=== PATIENT | male | born 1955 | race Two or more races ===

== ENCOUNTER → 2020-03-27 11:22 | Outpatient (BNVA) | payer MEDICARE, MEDICAID, SELFPAY | PROVIDERS: PCP Internal Medicine; Referring Provider Internal Medicine; Visit Provider Nurse Practitioner | DX: Z76.89 Persons encountering health services in other specified circumstances (principal) | CPT/HCPCS: 99214 ==

== ENCOUNTER 2020-04-11 09:34 | Outpatient (REF) | payer MEDICARE, MEDICAID, SELFPAY ==
--- NOTE | 2020-04-11 09:46 | US_ITS ---
EXAMINATION: US ABDOMEN LIMITED CLINICAL INFORMATION: GERD. Abdominal distention. COMPARISON: CT abdomen and pelvis dated 06/19/2012 TECHNIQUE: Real-time imaging of the right upper quadrant abdominal viscera. FINDINGS: PANCREAS: Portions of the pancreatic body that are visualized appear normal in size and echogenicity. There is no pancreatic ductal distention. The pancreas is otherwise obscured by bowel gas. LIVER: The liver is normal in size and smooth in contour. Portions of the left lobe are obscured by bowel gas and not completely imaged. The visualized liver parenchyma shows mild coarsening. There is no focal hepatic parenchymal lesion. No intrahepatic biliary ductal dilatation. GALLBLADDER: The gallbladder is physiologically distended. There is no gallbladder dilatation or wall thickening or pericholecystic inflammatory changes. There is a 4 mm polyp projecting into the lumen mid gallbladder. There is no stone or sludge. Sonographic negative Corona's sign. COMMON BILE DUCT: Normal in caliber measuring 0.4 cm in diameter. RIGHT KIDNEY: No hydronephrosis or renal calculi. The kidney measures 10.0 cm in maximum dimension. There is a simple cyst interpolar region measuring 1.3 x 1.2 cm. There is a smaller cyst lower pole under 1 cm with adjacent comet tail ring down artifact likely related to arcuate vessel. No obstructing calculi demonstrated. FREE FLUID: None. IMPRESSION: 1. Small gallbladder polyp 4 mm. No stone, gallbladder wall thickening, or ductal dilatation. 2. Bowel gas obscures visualization left hepatic lobe and portions of gallbladder. 3. No right hydronephrosis. No ascites.
== END 2020-04-11 09:35 | disposition home or self-care (01) ==
LOC: HO.US 09:34
PROVIDERS: Visit Provider Nurse Practitioner
DX: R14.0 Abdominal distension (gaseous) (principal); K21.9 Gastro-esophageal reflux disease without esophagitis
CPT/HCPCS: 76705

== ENCOUNTER 2020-04-26 13:19 | Outpatient (REF) | payer MEDICARE, MEDICAID, SELFPAY ==
--- NOTE | 2020-04-28 09:06 | MHC.AU.P13 ---
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 He reports that it is bothersome, and he has not found anything that makes it better. He hears the noise centrally, and does not feel it's coming from a particular ear. Ear History: Recent Ear Infections: None Reported History of Ear Wax Buildup: Both Ears Previous Ear Surgery: None Reported Bothersome Tinnitus/Ringing/Noises in Ears: Both Ears Ear used on the phone: Right Ear Blocked/Full Sensation in Ear(s): None Reported History: History: No Medical History: Medical History: Hyperlipidemia, Non-ischemic cardiomyopathy, glaucoma, COPD, GERD Otoscopy: Right Ear: Unremarkable Left Ear: Unremarkable Tympanometry: Right Ear: Normal Middle Ear System (Type A) Left Ear: Normal Middle Ear System (Type A) Hearing Evaluation: Transducer(s) Used: Insert Earphones Method: Conventional Audiometry Stimuli Used: Pure Tones Right Ear: Description of Hearing: Normal 250-1000 Hz, sloping to moderate sensorineural hearing loss Left Ear: Description of Hearing: Normal 250-1000 Hz, sloping to moderate sensorineural hearing loss Speech Recognition Threshold (SRT): Method Used: Recorded Lists Right Ear: 25 dBHL Left Ear: 30 dBHL Word Discrimination: Method: Recorded Lists Word Lists Used: Lista Bisil?bica (Emirati) Right Ear: 100% at 65 dBHL Left Ear: 96% at 70 dBHL Recommendations: Audiological re-evaluation in one year. Patient is highly bothered by his tinnitus. A trial with amplification is recommended to address the high frequency hearing loss and the tinnitus. See hearing aid evaluation report for more details. Patient may also benefit from other methods of tinnitus relief, such as use of masking noises and cognitive behavior therapy. Patient is scheduled to see Dr. Abril hanson to address the tinnitus from a medical perspective as well. Diagnosis: Primary Diagnosis: H90.3 Bilateral Sensorineural Hearing Loss Secondary Diagnosis: H93.13 Tinnitus, Bilateral Services Performed: Services Performed: Comprehensive Audiological Evaluation (CPT 85124) Tympanometry (CPT 42223) Signature: Provider: Divya Adams, SADE-A
--- NOTE | 2020-04-28 09:13 | MHC.AU.MED ---
Medical Clearance for Hearing Instrumentation Date: 04/28/20 Patient Name: Avery Bosch Date of : 1955 Dear Rigoberto Madrigal MD, We have seen your patient on 04/26/20 and have determined that they are a candidate for amplification (See accompanying report). Specifically, they would benefit from: Hearing aid use in both ears There is a statute that addresses Medical Evaluation Requirements prior to fitting a patient with a hearing aid. According to [place] statute 265 CMR:6.03(1), (a) General. Except as provided in 265 CMR 6.03(1)(b), a hearing aid assistant shall not sell a hearing aid unless the prospective user has presented to the hearing aid assistant a written statement signed by a licensed physician that states that the patient's hearing loss has been medically evaluated and the patient may be considered a candidate for a hearing aid. The medical evaluation must have taken place within the preceding six months. Please note: Due to the [place] Statute referenced above, we cannot accept a signature other than that of a licensed physician. RIVERBOAT CAPTAIN and PA signatures cannot be accepted. I am in agreement with the above recommendation. There is no medical contraindication for hearing instrumentation. Physician Signature Date Physician Name (Printed)
== END 2020-04-26 13:20 | disposition home or self-care (01) ==
LOC: HO.SH 13:19
PROVIDERS: PCP Internal Medicine; Visit Provider Internal Medicine
DX: H90.3 Sensorineural hearing loss, bilateral (principal); H93.13 Tinnitus, bilateral
CPT/HCPCS: 92557; 92567; 92591

== ENCOUNTER → 2020-04-27 11:58 | Outpatient (BNVA) | payer MEDICARE, MEDICAID, SELFPAY | PROVIDERS: PCP Internal Medicine; Referring Provider Internal Medicine; Visit Provider Nurse Practitioner | DX: K22.10 Ulcer of esophagus without bleeding (principal); K21.9 Gastro-esophageal reflux disease without esophagitis; K59.00 Constipation, unspecified; K62.3 Rectal prolapse | CPT/HCPCS: 99212 ==

== ENCOUNTER → 2020-05-02 09:21 | Outpatient (BNVA) | payer MEDICARE, MEDICAID, SELFPAY | PROVIDERS: PCP Internal Medicine; Referring Provider Internal Medicine; Visit Provider Internal Medicine | DX: J44.9 Chronic obstructive pulmonary disease, unspecified (principal); F17.200 Nicotine dependence, unspecified, uncomplicated | CPT/HCPCS: 99212 ==

== ENCOUNTER 2020-05-17 08:32 | Outpatient (REF) | payer MEDICARE, MEDICAID, SELFPAY ==
--- NOTE | 2020-05-22 11:35 | MHC.AU.P13 ---
Hearing Instrument Fitting- Adult- Binaural Date of Visit: 05/17/20 Glass Worker Used: Persian- In Person Hearing Instruments Dispensed: Right Ear: Senior Developer: Phonak Model: AUDEO M70-312 Serial Number: [id number] Warranty: 07/29/2023 Service Plan: Battery Size: 312 Color: WHITE Customer Strategy Manager: 1M Type of Dome: SMALL OPEN Type of Wax Guard: CERUSHIELD Left Ear: Senior Developer: Phonak Model: AUDEO M70-312 Serial Number: [id number] Warranty: 07/29/2023 Service Plan: Battery Size: 312 Color: WHITE Customer Strategy Manager: 1M Type of Dome: SMALL OPEN Type of Wax Guard: CERUSHIELD Summary of Fitting: Feedback strategic accounts manager run. Verifit performed and levels adjusted to better reach targets. Target gain at 100%. Patient was pleased with the sound and did not feel any additional adjustments were necessary. Tried Tinnitus Masking. Patient felt the masker set to Hearing Loss helped cover his tinnitus the most. Set the tinnitus masking as program 1. Patient reports that his cell phone is old and likely would not be compatible with the hearing aids. Hearing aid care and use were discussed and practiced. Recommendations: A hearing instrument follow-up was scheduled. Please call our clinic with any questions or concerns. Diagnosis Code(s): Primary Diagnosis: H90.3 Bilateral Sensorineural Hearing Loss Secondary Diagnosis: H93.13 Tinnitus, Bilateral Signature: Provider: Divya Adams, [facility]
== END 2020-05-17 08:33 | disposition home or self-care (01) ==
LOC: HO.HAP 08:32
PROVIDERS: PCP Internal Medicine; Referring Provider Internal Medicine; Visit Provider Internal Medicine
DX: Z46.1 Encounter for fitting and adjustment of hearing aid (principal); H90.3 Sensorineural hearing loss, bilateral; H93.13 Tinnitus, bilateral
CPT/HCPCS: V5011; V5020; V5160; V5261; V5266

== ENCOUNTER 2020-05-31 07:42 | Outpatient (REF) | payer MEDICARE, MEDICAID, SELFPAY ==
--- NOTE | 2020-05-31 | FL_ITS ---
EXAMINATION: FL SMALL BOWEL SERIES CLINICAL INFORMATION: Constipation. COMPARISON: None. TECHNIQUE: Following a academic guidance specialist image of the abdomen, contrast was administered orally, and interval abdominal radiographs were performed to assess for contrast progression through the small bowel. Following contrast transit through the small bowel and into the colon, the patient was placed on the fluoroscopy table, and multiple spot images were obtained. FINDINGS: Cashier Receptionist image of the abdomen demonstrates a normal bowel gas pattern. There is delayed transit time of contrast material through the small bowel, with contrast present in the colon by 7 hours. Small bowel loops are of normal caliber throughout the abdomen and pelvis. The jejunal and ileal fold patterns are normal, without evidence of abnormal thickening. No fixed regions of luminal narrowing are seen to suggest stricturing. The terminal ileum demonstrates a normal appearance. FLUOROSCOPY TIME: 0.1 minute. DOSE AREA PRODUCT: 1.178 Gy-cm2. FL/FL small bowel follow through IMPRESSION: Delayed small bowel transit otherwise normal small bowel series.
--- NOTE | 2020-05-31 07:52 | FL_ITS ---
EXAMINATION: XR GI SERIES CLINICAL INFORMATION: Constipation COMPARISON: Previous barium swallow April 2018 TECHNIQUE: Upper GI was performed using thin and thick barium and effervescent nodules. FINDINGS: There is mild gastroesophageal reflux. There is a small sliding hiatal hernia. The stomach and duodenum are normal-appearing. No fold thickening ulcer, mass or stricture is seen. FLUOROSCOPY TIME: 1 minute DOSE AREA PRODUCT: 7.7 chino per centimeter squared. Total dose 31 mgy. 34 saved fluoroscopic images for combined upper GI and small bowel follow up liver FL/FL upper GI series IMPRESSION: Gastroesophageal reflux and small sliding-type hiatal hernia.
== END 2020-05-31 07:43 | disposition home or self-care (01) ==
LOC: HO.XRAY 07:42
PROVIDERS: PCP Internal Medicine; Visit Provider Nurse Practitioner
DX: K59.00 Constipation, unspecified (principal); K21.9 Gastro-esophageal reflux disease without esophagitis
CPT/HCPCS: 74240; 74246; 74248; 74250

== ENCOUNTER 2020-06-07 14:11 | Outpatient (REF) | payer MEDICARE, MEDICAID, SELFPAY ==
--- NOTE | 2020-06-07 15:41 | MHC.AU.P13 ---
Hearing Instrument Follow-Up- Binaural Date of Visit: 06/07/20 Channel Marketing Coordinator Used: Nepali- In Person Right Ear: Real Estate Legal Assistant: Model: AAKASHO M70-312 Serial Number: [id number] Warranty: 07/29/2023 Battery Size: 312 Color: WHITE Disassembler Product: 1M Type of Dome: SMALL OPEN Type of Wax Guard: CERUSHIELD Dispensed By: [facility] Left Ear: Real Estate Legal Assistant: Phonak Model: DIVYAEO M70-312 Serial Number: [id number] Warranty: 07/29/2023 Battery Size: 312 Color: WHITE Disassembler Product: 1M Type of Dome: SMALL OPEN Type of Wax Guard: CERUSHIELD Dispensed By: [facility] Follow-Up Summary: Patient arrived for hearing aid follow-up. He reports that he has been hearing much better at home. Target shows an average of 6.6 hours of use a day. He initially requested that the volume of his tinnitus program be increased, but decided to try other tinnitus masking sounds instead. He found that he preferred the white noise. His tinnitus program is now set to White noise. Reviewed use of the button to toggle the masking noise on and off. He inquired if he could adjust the volume of the masking noise at home. He can only do with this with the jenniffer on a smartphone. He does not have a compatible phone at this time. Overall gain on the hearing aids raised by 2 steps. Recommendations: Hearing instrument follow-up or maintenance as needed. Please contact our clinic with any questions or concerns. Diagnosis Code(s): Primary Diagnosis: H90.3 Bilateral Sensorineural Hearing Loss Secondary Diagnosis: H93.13 Tinnitus, Bilateral Signature: Provider: Divya Adams, [facility]
== END 2020-06-07 14:12 | disposition home or self-care (01) ==
LOC: HO.HAP 14:11
PROVIDERS: Visit Provider Internal Medicine
DX: Z13.89 Encounter for screening for other disorder (principal)

== ENCOUNTER 2020-06-19 13:00 | Outpatient (REF) | payer MEDICARE, MEDICAID, SELFPAY | END 2020-06-19 13:01 | disposition home or self-care (01) | LOC: HO.LAB 13:00 | PROVIDERS: PCP Internal Medicine; Visit Provider Internal Medicine | DX: Z20.828 Contact with and (suspected) exposure to other viral communicable diseases (principal) | CPT/HCPCS: C9803; U0003 ==

== ENCOUNTER → 2020-08-31 09:16 | Outpatient (BNVA) | payer MEDICARE, MEDICAID, SELFPAY | PROVIDERS: PCP Internal Medicine; Visit Provider Internal Medicine | DX: J44.9 Chronic obstructive pulmonary disease, unspecified (principal); F17.200 Nicotine dependence, unspecified, uncomplicated; Z71.6 Tobacco abuse counseling; Z79.51 Long term (current) use of inhaled steroids | CPT/HCPCS: 99212 ==

== ENCOUNTER → 2020-09-29 09:19 | Outpatient (BNVA) | payer MEDICARE, MEDICAID, SELFPAY | PROVIDERS: PCP Internal Medicine; Visit Provider Nurse Practitioner | DX: Z13.89 Encounter for screening for other disorder (principal) | CPT/HCPCS: Q3014 ==

== ENCOUNTER → 2020-10-13 11:24 | Outpatient (BNVA) | payer MEDICARE, MEDICAID, SELFPAY | PROVIDERS: PCP Internal Medicine; Visit Provider Physician Assistant Medical ==

== ENCOUNTER → 2020-10-30 10:01 | Outpatient (BNVA) | payer MEDICARE, MEDICAID, SELFPAY | PROVIDERS: PCP Internal Medicine; Visit Provider Nurse Practitioner ==

== ENCOUNTER 2020-11-02 10:47 | Outpatient (REF) | payer MEDICARE, MEDICAID, SELFPAY ==
--- NOTE | ~2020-11-02 | CT_ITS ---
EXAMINATION: CT CHEST SCREENING CLINICAL INFORMATION: Negative COMPARISON: Previous chest CT scans most recent 10/21/2018 TECHNIQUE: Multidetector volumetric CT imaging of the chest is performed without contrast using low dose technique. Additional 2D coronal and sagittal reformatted images and axial 3D maximum intensity projection (MIP) images are generated on the CT workstation. This CT examination was performed using dose optimization techniques as appropriate, variously including the following: *Automated exposure control *Adjustment of mA and/or kV according to patient size (this includes techniques or standardized protocols for targeted exams where dose is matched to indication/reason for exam; i.e. extremities or head) *Use of iterative reconstruction technique DLP: 191 mGy-cm FINDINGS: LUNGS: There is evidence of severe emphysema. There is biapical pleural and parenchymal scarring. There are abnormal parenchymal densities seen in the bilateral upper lobes, right greater than left. There is a partially calcified abnormal parenchymal density at the right lung apex axial image 75 series 5 that is unchanged. There is a abnormal parenchymal density in the left upper lobe adjacent to the mediastinum and fissure axial image 117 series 5 that is stable. There is a linear abnormal parenchymal density in the right upper lobe axial image 159 series 5 that is stable. There is an abnormal nodular appearing parenchymal density in the posterior segment of the right upper lobe that measures 7 x 9 mm axial image 171 series 5. There is an adjacent 1 cm mixed cystic/reticular and solid density in the right upper lobe posterior segment. There is a 6 mm solid component axial image 165 series 5. There is new retraction of the right major fissure. MEDIASTINUM: The thoracic aorta is slightly dilated. The ascending thoracic aorta measures 4.4 cm, aortic arch 3 cm and descending thoracic aorta 3.3 x 3.6 cm. The heart does not appear enlarged. There is no pericardial effusion. There is mild coronary artery and aortic valve calcification. There is a small esophageal hernia. There are no enlarged hilar or mediastinal lymph nodes. PLEURA: There is no pleural effusion. No pleural mass or thickening. AXILLA: No lymphadenopathy. UPPER ABDOMEN: Unremarkable OSSEOUS STRUCTURES: There are degenerative changes of the spine. CT/CT lung screening IMPRESSION: Severe emphysema. Stable biapical pleural and parenchymal scarring. 2 new abnormal parenchymal densities in the posterior segment of the right upper lobe and retraction of the right major fissure. Otherwise the stable findings. ASSESSMENT: Lung-RADS category 3: Probably Benign RECOMMENDATION: Six-month low-dose chest CT follow-up recommended.
== END 2020-11-02 10:48 | disposition home or self-care (01) ==
LOC: HO.CT 10:47
PROVIDERS: PCP Internal Medicine; Visit Provider Physician Assistant Medical
DX: Z12.2 Encounter for screening for malignant neoplasm of respiratory organs (principal); Z87.891 Personal history of nicotine dependence
CPT/HCPCS: 71271

== ENCOUNTER → 2021-01-04 10:05 | Outpatient (BNVA) | payer MEDICARE, MEDICAID, SELFPAY | PROVIDERS: PCP Internal Medicine; Visit Provider Internal Medicine | DX: F17.200 Nicotine dependence, unspecified, uncomplicated (principal); J44.9 Chronic obstructive pulmonary disease, unspecified; R91.8 Other nonspecific abnormal finding of lung field | CPT/HCPCS: 99212 ==

== ENCOUNTER 2021-02-05 07:49 | Outpatient (REF) | payer MEDICARE, MEDICAID, SELFPAY ==
--- NOTE | ~2021-02-05 | CT_ITS ---
EXAMINATION: CT CHEST SCREENING CLINICAL INFORMATION: COPD. COMPARISON: CT chest 11/02/2020 TECHNIQUE: Multidetector volumetric CT imaging of the chest is performed without contrast using low dose technique. Additional 2-D coronal and sagittal reformatted images and axial 3-D maximum intensity projection (MIP) images are generated on the CT workstation. This CT examination was performed using dose optimization techniques as appropriate, variously including the following: *Automated exposure control *Adjustment of mA and/or kV according to patient size (this includes techniques or standardized protocols for targeted exams where dose is matched to indication/reason for exam; i.e. extremities or head) *Use of iterative reconstruction technique DLP: 50 mGy-cm FINDINGS: LUNGS: There is diffuse centrilobular emphysema with bilateral apical patchy linear parenchymal thickening with adjacent bullous changes. There is a linear density right upper lobe measuring 1.6 x 0.5 cm on axial image 159/9. There are no pulmonary nodules, mass or acute consolidation. MEDIASTINUM: The thyroid lobes are symmetric and normal. The central trachea and the bronchi are widely patent. Heart size and the great vessels are normal caliber. The ascending aorta measures 4.2 cm. There are coronary artery calcifications. No pericardial effusion seen. PLEURA: There is minimal bilateral apical pleural thickening. There is no nodularity, pleural effusion. AXILLA: No lymphadenopathy. UPPER ABDOMEN: Visualized liver, spleen, pancreas, and adrenal glands are unremarkable. OSSEOUS STRUCTURES: No lytic or sclerotic process seen. There is mild ventral spondylosis mid and lower dorsal spine. CT/CT lung screen follow up IMPRESSION: Diffuse emphysema with bilateral apical parenchymal scarring and apical pleural thickening. The right upper lobe linear density is worrisome. No abnormal lymph nodes seen. ASSESSMENT: Lung-RADS category 3: Probably Benign. RECOMMENDATION: 6-month low-dose CT.
== END 2021-02-05 07:50 | disposition home or self-care (01) ==
LOC: HO.CT 07:49
PROVIDERS: Visit Provider Physician Assistant Medical
DX: Z12.2 Encounter for screening for malignant neoplasm of respiratory organs (principal); R91.1 Solitary pulmonary nodule; Z87.891 Personal history of nicotine dependence
CPT/HCPCS: 71250

== ENCOUNTER → 2021-02-08 14:40 | Outpatient (BNVA) | payer MEDICARE, MEDICAID, SELFPAY | PROVIDERS: PCP Internal Medicine; Visit Provider Hospitalist | DX: R91.8 Other nonspecific abnormal finding of lung field (principal); J44.9 Chronic obstructive pulmonary disease, unspecified; R06.00 Dyspnea, unspecified; F17.200 Nicotine dependence, unspecified, uncomplicated | CPT/HCPCS: 99212 ==

== ENCOUNTER 2021-03-09 10:40 | Outpatient (REF) | payer MEDICARE, MEDICAID, SELFPAY ==
--- NOTE | 2021-03-09 16:43 | PFT_ITS ---
FLOWS: FEV1 91% of predicted at 3.21 L. FVC 109% of predicted at 5.14 L. FEV1 to FVC ratio of 0.62. No bronchodilator response. LUNG VOLUMES: Total lung capacity 105% of predicted at 7.64 L. Residual volume 100% of predicted at 2.45 L. Slow vital capacity 108% of predicted at 5.19 L. Expiratory reserve volume 122% of predicted at 1.70 L. Diffusion capacity is moderately decreased. In comparison to pulmonary function test performed in July of 2018, FEV1 has decreased by 0.33 L; FVC has decreased by 0.57 L; total lung capacity has decreased by 0.66 L; residual volume has decreased by 0.49 L; slow vital capacity has decreased by 0.57 L; expiratory reserve volume has decreased by 0.86 L; diffusion capacity has decreased by 4.82 mL/minute per mmHg. IMPRESSION: Mild obstructive ventilatory defect with no bronchodilator response. Decreased diffusion capacity suggests emphysema. MD YEMI Valiente/MODL / [id number]
== END 2021-03-09 10:41 | disposition home or self-care (01) ==
LOC: HO.RESP 10:40
PROVIDERS: PCP Internal Medicine; Visit Provider Hospitalist
DX: J44.9 Chronic obstructive pulmonary disease, unspecified (principal); R91.8 Other nonspecific abnormal finding of lung field
CPT/HCPCS: 94060; 94727; 94729

== ENCOUNTER → 2021-03-30 09:42 | Outpatient (BNVA) | payer MEDICARE, MEDICAID, SELFPAY | PROVIDERS: PCP Internal Medicine; Visit Provider Hospitalist | DX: R91.8 Other nonspecific abnormal finding of lung field (principal); J44.9 Chronic obstructive pulmonary disease, unspecified; R06.00 Dyspnea, unspecified; F17.200 Nicotine dependence, unspecified, uncomplicated | CPT/HCPCS: 99212 ==

== ENCOUNTER → 2021-04-09 14:14 | Outpatient (BNVA) | payer MEDICARE, MEDICAID, SELFPAY | PROVIDERS: Referring Provider Internal Medicine; Visit Provider Nurse Practitioner | DX: K59.9 Functional intestinal disorder, unspecified (principal); K22.10 Ulcer of esophagus without bleeding; K21.9 Gastro-esophageal reflux disease without esophagitis; K62.3 Rectal prolapse; K59.04 Chronic idiopathic constipation | CPT/HCPCS: 99212 ==

== ENCOUNTER → 2021-05-01 10:32 | Outpatient (BNVA) | payer MEDICARE, MEDICAID, SELFPAY | PROVIDERS: Referring Provider Internal Medicine; Visit Provider Nurse Practitioner | DX: K59.04 Chronic idiopathic constipation (principal); K59.9 Functional intestinal disorder, unspecified; K21.9 Gastro-esophageal reflux disease without esophagitis; D12.6 Benign neoplasm of colon, unspecified; R14.0 Abdominal distension (gaseous) | CPT/HCPCS: 99212 ==

== ENCOUNTER → 2021-08-03 11:55 | Outpatient (BNVA) | payer MEDICARE, MEDICAID, SELFPAY | PROVIDERS: Referring Provider Internal Medicine; Visit Provider Nurse Practitioner | DX: K59.04 Chronic idiopathic constipation (principal); K22.10 Ulcer of esophagus without bleeding; K21.9 Gastro-esophageal reflux disease without esophagitis; K59.9 Functional intestinal disorder, unspecified; D12.6 Benign neoplasm of colon, unspecified | CPT/HCPCS: 99212 ==

== ENCOUNTER 2021-11-11 16:03 | Emergency (ER) | payer MEDICARE, MEDICAID, SELFPAY ==
--- NOTE | ~2021-11-11 | CT_ITS ---
EXAMINATION: CT HEAD WITHOUT CONTRAST CLINICAL INFORMATION: Dizziness. Weakness. COMPARISON: CT head 11/07/2013. TECHNIQUE: Contiguous axial imaging was performed from the skull base to vertex without intravenous administration of contrast. This CT examination was performed using dose optimization techniques as appropriate, variously including the following: *Automated exposure control *Adjustment of mA and/or kV according to patient size (this includes techniques or standardized protocols for targeted exams where dose is matched to indication/reason for exam; i.e. extremities or head) *Use of iterative reconstruction technique DLP: 635 mGy-cm FINDINGS: A 7 mm focus of focal encephalomalacia is present in the superior left cerebellar hemisphere and has the appearance of focal chronic ischemic changes. (Series 2 image 15). Elsewhere, the ventricles and sulci are normal in size and configuration. No intracranial hemorrhage, tumors or acute infarcts are identified. A right ocular lens extraction is noted. No significant opacification of the visualized paranasal sinuses, mastoid air cells and middle ear cavities. CT/CT head/brain wo con IMPRESSION: *No acute intracranial abnormalities identified. *Chronic appearing lacunar infarct within the superior left cerebellar hemisphere new compared with 11/07/2013.
--- NOTE | ~2021-11-11 | XR_ITS ---
EXAMINATION: XR CHEST CLINICAL INFORMATION: Weakness. COMPARISON: CT chest 02/05/2021, chest radiograph 10/21/2018, chest radiograph 01/21/2018. TECHNIQUE: Frontal view of the chest was obtained. FINDINGS: Attenuation of the upper lung zone pulmonary parenchyma is noted. Normal appearance of the cardiomediastinal structures.. Fine and medium reticular opacities are present peripherally within the right lung base new compared with 01/21/2018. An ill-defined spiculated density measuring approximately 1.5 cm in maximum dimension projection with the anterior right 2-3 intercostal space is unchanged compared with 01/21/2018 and is therefore probably benign in appearance given the stability of this finding. This finding correlates to a probably benign finding noted on the comparison CT of 02/05/2021. XR/XR chest 1V IMPRESSION: *Newly identified finding medium reticular opacities within the periphery of the right lung base. Findings may represent atelectasis or infection. Findings are new compared with 02/05/2021. *Centrilobular emphysema. * Right upper lobe 1.5 cm coarse spiculated density grossly unchanged compared with 02/05/2021 favoring that this finding likely represents benign parenchymal scarring. This finding correlates to a probably benign finding noted on the comparison CT of the thorax from 02/05/2021 at which time a 6 month follow-up low dose CT of the thorax was recommended.
[2021-11-11 16:08] VITALS: BP 96/63; PULSE 80; RESP 18; TEMP 37.2; O2SAT 96; BMI 20.3
[2021-11-11 16:18] LABS: MANUAL DIFF FLAG NO
[2021-11-11 16:34] LABS: Basophils Percent Auto 0.3 % (0-2); Eosinophils Percent Auto 0.5 % (0-4); Hematocrit 42.3 % (42.0-52.0); Hemoglobin 13.7 g/dl (14.0-18.0); Imm Gran Abs Auto 0.01 X10*3/uL (0.00-0.03); Imm Gran Pct Auto 0.1 % (0.0-0.4); Lymphocytes Percent Auto 12.6 % (20-40); Mean Corpuscular HGB Conc 32.4 g/dl (31.0-36.0); Mean Corpuscular Volume 86.3 fL (80.0-98.0); Monocytes Absolute Auto 0.8 X10*3/uL (0.1-1.2); Monocytes Percent Auto 10.5 % (2-11); Platelet Count 198 X10*3/uL (160-400); Red Cell Distribution Width 15.6 % (11.0-16.0); White Blood Count 7.9 X10*3/uL (4.8-10.8)
[2021-11-11 16:37] LABS: Anion Gap 12 (12-20); Blood Urea Nitrogen 12 mg/dL (9-16); Calcium 8.5 mg/dL (8.4-10.2); Carbon Dioxide 22 mmol/L (22-29); Chloride 105 mmol/L (96-108); Creatinine Clr Calc Pharmacy 63.2; Estimated Glomerular Filt Rate > 60; Glucose Random 113 mg/dL (60-115); Potassium 3.7 mmol/L (3.3-5.1); Sodium 135 mmol/L (135-145)
--- NOTE | 2021-11-11 17:12 | ED_ITS ---
HPI - General Adult General Chief complaint: General Medical Stated complaint: dizziness/weakness Source: patient Mode of arrival: ambulatory Limitations: language barrier History of Present Illness HPI narrative: 66-year-old male presents with weakness, dizziness, chest pressure on inspiration. Patient tested positive for COVID-19 2 weeks ago and then negative on 11/05. Onset (ago): day(s) Radiation: non-radiation Severity: moderate Severity scale (1-10): 5 Quality: aching Pain Consistency: intermittent Relieving factors: none Exacerbating factors: movement Associated symptoms: malaise and weakness Treatments prior to arrival: none Related Data Home Medications Medication Instructions Recorded Confirmed carvedilol 12.5 mg tablet 12.5 mg PO BID 03/27/20 03/30/21 latanoprost 0.005 % eye drops drp OPHTHALMIC (EYE) 03/27/20 03/30/21 quetiapine 300 mg tablet 300 mg PO BEDTIME 03/27/20 03/30/21 simvastatin 20 mg tablet 20 mg PO BEDTIME 03/27/20 03/30/21 trazodone 100 mg tablet mg PO 03/27/20 03/30/21 sacubitril 49 mg-valsartan 51 mg 1 tab PO BID 01/04/21 03/30/21 tablet varenicline 1 mg tablet 1 mg PO BID 01/04/21 03/30/21 sennosides 8.6 mg tablet (senna) 17.2 mg PO BEDTIME PRN 05/01/21 Previous Rx's Medication Instructions Recorded tiotropium bromide 18 mcg capsule 1 cap INHALATION DAILY #60 inh 08/31/20 with inhalation device (Spiriva with HandiHaler) Flovent HFA 110 mcg/actuation 1 puff PO BID #12 g NS 01/17/21 aerosol inhaler (fluticasone propionate) albuterol sulfate 90 mcg/actuation 2 inh INHALATION Q6H PRN 30 Days 02/08/21 aerosol inhaler #18 g bupropion HCl 75 mg tablet 150 mg PO BID 30 Days #120 tab 02/08/21 fluticasone fur. 200 mcg-umeclid 1 inh INHALATION DAILY 30 Days #60 02/08/21 62.5 mcg-vilant 25 mcg ea inhalat.powder (Trelegy Ellipta) nicotine 10 mg inhalation 1 inh INHALATION Q2-4H PRN 30 Days 02/08/21 cartridge (Nicotrol) #168 ea simethicone 180 mg capsule (Gas 180 mg PO BID 30 Days #60 cap 04/11/21 Relief (simethicone)) metoclopramide HCl 10 mg tablet 10 mg PO QIDACHS 30 Days #90 tab 05/01/21 (Reglan) linaclotide 72 mcg capsule 72 mcg PO QAM #30 cap 08/03/21 (Linzess) dexlansoprazole 60 mg 60 mg PO DAILY #30 cap 10/01/21 capsule,biphase delayed release (Dexilant) Allergies Allergy/AdvReac Type Severity Reaction Status Date / Time No Known Allergies Allergy Verified 11/11/21 16:08 [No Known Allergies*] Review of Systems Review of Systems: Constitutional: No Fever, No Chills ENT/Mouth: No Ear Pain, No Hoarseness, No sore throat Eyes: No Eye Pain, No Swelling, No Redness, No Foreign Body Cardiovascular: Positive Chest Pain, no SOB Respiratory: No Cough, No Dyspnea Gastrointestinal: No Nausea, No Vomiting, No Diarrhea, No abdominal Pain Genitourinary: No Dysuria, No Hematuria Musculoskeletal: positive joint pain, No Myalgias, No Joint Swelling Skin: No Skin lacerations, No rash Neuro: Positive Weakness, No Numbness, No Paresthesias, No Loss of Consciousness, positive Dizziness, No Headache Psych: No Anxiety/Panic, No Depression Heme/Lymph: no easy bruising, no Lymphadenopathy Endocrine: No Polyuria, No Polydipsia Yes all other systems are reviewed and are negative PMFSH Past Medical History Attestation statement: The following information was validated with the patient. Source: old records reviewed Medical History Constipation COPD (chronic obstructive pulmonary disease) COPD (chronic obstructive pulmonary disease) Dyspnea Hyperlipidemia Hypertension Personal history of nicotine dependence Pulmonary nodules Tubular adenoma of colon Surgical History History of appendectomy History of gastric surgery History of surgery on left wrist (~03/21/10) Hx of cataract surgery (~07/02/10) Hx of colonoscopy (~02/13/06) Hx of endoscopy Family History Family History Mother Renal failure Father History of depression Brother Colon cancer Social History Social History Alcohol intake: current Alcohol intake frequency: holidays/special occasions only Patient Tobacco Use Status: Current everyday Tobacco user Cigarette Packs Per Day: 0.5 Years Smoked: 51 (onset 14yo) Advance Directives: No Advance Directives Information Provided: Yes Physical Exam ED Vital Signs: Vital Signs - 24 hr 11/11/21 16:08 11/11/21 18:38 11/11/21 19:15 Temperature 98.9 F 98.4 F Pulse Rate 80 85 88 Respiratory Rate 18 16 Blood Pressure 96/63 115/78 115/82 Pulse Oximetry 96 95 95 11/11/21 22:00 Temperature 97.8 F Pulse Rate 80 Respiratory Rate 16 Blood Pressure 123/88 Pulse Oximetry 96 BMI result Body Mass Index 20.3 Appearance: Alert. Oriented X3. No acute distress. Eyes: Pupils equal, round and reactive to light. ENT: Pharynx normal. Neck: Normal inspection. Neck supple. CVS: Normal heart rate and rhythm. Pulses normal. Respiratory: No respiratory distress. Breath sounds normal. Abdomen: Soft and nontender. Skin: Skin warm and dry. Normal skin color. Normal skin turgor. Extremities: No lower extremity edema. Gait well balanced well coordinated. Neuro: No motor deficit. No sensory deficit. Cranial nerves 2-12 intact. NIH Stroke Scale Internal: Initial- Upon Arrival Level of Consciousness: Alert Level of Consciousness Questions: Answers both questions correctly Level of Consciousness Commands: Performs both tasks correctly Best Gaze: Normal Visual: No visual loss Facial Palsy: Normal Motor Arm (Right): No drift Motor Arm (Left): No drift Motor Leg (Right): No drift Motor Leg (Left): No drift Limb Ataxia: Absent Sensory: Normal Best Language: No aphasia Dysarthia: Normal Extinction and Inattention: No abnormality Score: 0 Course Course Course Narrative: 66-year-old male Slovenian-speaking presents with fatigue, weakness, dizziness, chest pressure, tested positive for COVID-19 a few weeks ago and then negative on 11/05. States that he feels the same as when he was positive. Does have some dizziness and loss of balance at times. NIH stroke scale is 0, however we will order CT scan of his head. Will order labs. This HALL COORDINATOR started IV to right lower forearm and initiated fluid bolus for suspected dehydration as well as soft blood pressure of 96/63. Wells PE score 0 17:38 patient unable to urinate. Fluid bolus infusing without difficulty. 20:00 patient unable to void. 2 L infusing. EKG does not show any indication of ST elevation or depression. Troponins are negative. Low likelihood of ACS at this time. 21:50 patient able to void. Patient positive for COVID-19. Urinalysis is pending. CT scan shows chronic changes no acute findings. Urinalysis is negative. Patient will be discharged home with supportive measures.Patient verbalized understanding of and agrees to plan of care to discharge home. Verbalized understanding of signs and symptoms indicating need for emergent intervention Medical Decision Making Differential Diagnosis Differential Diagnosis: Influenza, COVID, CVA, dehydration Medical Records Medical records reviewed: Yes I reviewed the patient's medical records. Lab Data Lab results reviewed: Yes I reviewed the patient's lab results. Result diagrams: 11/11/21 16:14 11/11/21 16:14 Labs: Lab Results 11/11/21 11/11/21 11/11/21 Range/Units 16:14 16:14 19:27 WBC 7.9 (4.8-10.8) X10*3/uL RBC 4.90 (4.60-5.80) X10*6/uL Hgb 13.7 L (14.0-18.0) g/dl Hct 42.3 (42.0-52.0) % MCV 86.3 (80.0-98.0) fL MCH 28.0 (27.0-33.0) pg MCHC 32.4 (31.0-36.0) g/dl RDW 15.6 (11.0-16.0) % Plt Count 198 (160-400) X10*3/uL MPV 10.0 (9.4-12.4) fL Immature Gran % (Auto) 0.1 (0.0-0.4) % Neut % (Auto) 76.0 H (45-73) % Lymph % (Auto) 12.6 L (20-40) % Carter % (Auto) 10.5 (2-11) % Eos % (Auto) 0.5 (0-4) % Baso % (Auto) 0.3 (0-2) % Lymph # (Auto) 1.0 L (1.2-4.9) X10*3/uL Carter # (Auto) 0.8 (0.1-1.2) X10*3/uL Eos # (Auto) 0.0 (0.0-0.4) X10*3/uL Baso # (Auto) 0.0 (0.0-0.2) X10*3/uL Abs Immat Gran (auto) 0.01 (0.00-0.03) X10*3/uL Absolute Neuts (auto) 6.0 (2.0-8.3) x10*3/uL Absolute Nucleated RBC 0.000 (0.0-0.012) X10*3/uL Nucleated RBC % (auto) 0.0 (0.0-0.2) /100WBC Sodium 135 (135-145) mmol/L Potassium 3.7 (3.3-5.1) mmol/L Chloride 105 (96-108) mmol/L Carbon Dioxide 22 (22-29) mmol/L Anion Gap 12 (12-20) BUN 12 (9-16) mg/dL Creatinine 1.09 (0.5-1.4) mg/dL Estim Creat Clear Calc 63.2 Estimated GFR > 60 Random Glucose 113 (60-115) mg/dL Calcium 8.5 (8.4-10.2) mg/dL Magnesium 1.7 (1.6-2.6) mg/dL Troponin I High Sens (<3.5-35.0) ng/L Urine Color Urine Appearance Urine pH (5.0-8.0) Ur Specific [place] (1.005-1.025) Urine Protein (NEG-TRACE) MG/DL Urine Glucose (UA) (NEG) MG/DL Urine Ketones (NEG) MG/DL Urine Blood (NEG) Urine Nitrite (NEG) Ur Leukocyte Esterase (NEG) Urine RBC (0) /HPF Urine WBC (0-4) /HPF Ur Squamous Epith Cells /LPF Urine Bacteria /LPF Urine Mucus /LPF Influenza Type A (PCR) NEGATIVE (Negative) Influenza Type B (PCR) NEGATIVE (Negative) RSV RNA Qual (PCR) NEGATIVE (Negative) SARS-CoV-2 RNA (RT-PCR) POSITIVE A (Negative) 11/11/21 11/11/21 Range/Units 19:36 20:44 WBC (4.8-10.8) X10*3/uL RBC (4.60-5.80) X10*6/uL Hgb (14.0-18.0) g/dl Hct (42.0-52.0) % MCV (80.0-98.0) fL MCH (27.0-33.0) pg MCHC (31.0-36.0) g/dl RDW (11.0-16.0) % Plt Count (160-400) X10*3/uL MPV (9.4-12.4) fL Immature Gran % (Auto) (0.0-0.4) % Neut % (Auto) (45-73) % Lymph % (Auto) (20-40) % Carter % (Auto) (2-11) % Eos % (Auto) (0-4) % Baso % (Auto) (0-2) % Lymph # (Auto) (1.2-4.9) X10*3/uL Carter # (Auto) (0.1-1.2) X10*3/uL Eos # (Auto) (0.0-0.4) X10*3/uL Baso # (Auto) (0.0-0.2) X10*3/uL Abs Immat Gran (auto) (0.00-0.03) X10*3/uL Absolute Neuts (auto) (2.0-8.3) x10*3/uL Absolute Nucleated RBC (0.0-0.012) X10*3/uL Nucleated RBC % (auto) (0.0-0.2) /100WBC Sodium (135-145) mmol/L Potassium (3.3-5.1) mmol/L Chloride (96-108) mmol/L Carbon Dioxide (22-29) mmol/L Anion Gap (12-20) BUN (9-16) mg/dL Creatinine (0.5-1.4) mg/dL Estim Creat Clear Calc Estimated GFR Random Glucose (60-115) mg/dL Calcium (8.4-10.2) mg/dL Magnesium (1.6-2.6) mg/dL Troponin I High Sens 8.8 (<3.5-35.0) ng/L Urine Color YELLOW Urine Appearance CLEAR Urine pH 6.0 (5.0-8.0) Ur Specific [place] 1.025 (1.005-1.025) Urine Protein NEG (NEG-TRACE) MG/DL Urine Glucose (UA) NEG (NEG) MG/DL Urine Ketones 15 (NEG) MG/DL Urine Blood 2+ H (NEG) Urine Nitrite NEG (NEG) Ur Leukocyte Esterase NEG (NEG) Urine RBC 15-29 H (0) /HPF Urine WBC 1-4 (0-4) /HPF Ur Squamous Epith Cells 1+ /LPF Urine Bacteria 2+ /LPF Urine Mucus 2+ /LPF Influenza Type A (PCR) (Negative) Influenza Type B (PCR) (Negative) RSV RNA Qual (PCR) (Negative) SARS-CoV-2 RNA (RT-PCR) (Negative) Imaging Data CT scan - head: Attestation: I personally reviewed and interpreted this imaging study as follows: Radiologist's impression: EXAMINATION: CT HEAD WITHOUT CONTRAST CLINICAL INFORMATION: Dizziness. Weakness.? COMPARISON: CT head 11/07/2013. TECHNIQUE: Contiguous axial imaging was performed from the skull base to vertex without intravenous administration of contrast. This CT examination was performed using dose optimization techniques as appropriate, variously including the following: *Automated exposure control *Adjustment of mA and/or kV according to patient size (this includes techniques or standardized protocols for targeted exams where dose is matched to indication/reason for exam; i.e. extremities or head) *Use of iterative reconstruction technique DLP: 635 mGy-cm FINDINGS: A 7 mm focus of focal encephalomalacia is present in the superior left cerebellar hemisphere and has the appearance of focal chronic ischemic changes. (Series 2 image 15). Elsewhere, the ventricles and sulci are normal in size and configuration. No intracranial hemorrhage, tumors or acute infarcts are identified. A right ocular lens extraction is noted. No significant opacification of the visualized paranasal sinuses, mastoid air cells and middle ear cavities. CT/CT head/brain wo con IMPRESSION: *No acute intracranial abnormalities identified. *Chronic appearing lacunar infarct within the superior left cerebellar hemisphere new compared with 11/07/2013. Chest x-ray: Attestation: I personally reviewed and interpreted this imaging study as follows: Radiologist's impression: EXAMINATION: XR CHEST CLINICAL INFORMATION: Weakness. COMPARISON: CT chest 02/05/2021, chest radiograph 10/21/2018, chest radiograph 01/21/2018. TECHNIQUE: Frontal view of the chest was obtained. FINDINGS: Attenuation of the upper lung zone pulmonary parenchyma is noted. Normal appearance of the cardiomediastinal structures.. Fine and medium reticular opacities are present peripherally within the right lung base new compared with 01/21/2018. An ill-defined spiculated density measuring approximately 1.5 cm in maximum dimension projection with the anterior right 2-3 intercostal space is unchanged compared with 01/21/2018 and is therefore probably benign in appearance given the stability of this finding. This finding correlates to a probably benign finding noted on the comparison CT of 02/05/2021. XR/XR chest 1V IMPRESSION: *Newly identified finding medium reticular opacities within the periphery of the right lung base. Findings may represent atelectasis or infection. Findings are new compared with 02/05/2021. *Centrilobular emphysema. * Right upper lobe 1.5 cm coarse spiculated density grossly unchanged compared with 02/05/2021 favoring that this finding likely represents benign parenchymal scarring. This finding correlates to a probably benign finding noted on the comparison CT of the thorax from 02/05/2021 at which time a 6 month follow-up low dose CT of the thorax was recommended. ECG Data Attestation: I personally reviewed and interpreted this ECG as follows: Prior ECG tracings: available for review Interpretation: Vent. rate 86 BPM IN interval 154 ms QRS duration 80 ms QT/QTc 374/447 ms P-R-T axes 62 65 55 Sinus rhythm with occasional Premature ventricular complexes and Premature atrial complexes Nonspecific ST abnormality Abnormal ECG When compared with ECG of 29-JUL-2017 10:27, Premature ventricular complexes are now Present Premature atrial complexes are now Present Nonspecific T wave abnormality now evident in Anterior leads 11-NOV-2021 19:10:52 Discharge Plan Discharge Clinical Impression: Dehydration, COVID-19 Patient Disposition: Home, Self-Care Instructions: Covid-19 Viral Syndrome and Novel Coronavirus (ED) Hey/Ath, Dehydration (ED), COVID-19 (Coronavirus Disease 2019) (ED) Additional Instructions: Lo evaluaron por dolor en el pecho y dificultad para respirar. [place] positivo por COVID-19. Mantenga el aislamiento social seg?n las pautas estatales y federales. Le tratamos por deshidrataci?n con 2 L de soluci?n salina normal. Miguel por elegir [place] departamento de emergencias para luevano evaluaci?n. Por favor, bry un seguimiento con el m?dico de atenci?n primaria seg?n sea necesario. Regrese al departamento de emergencias por cualquier s?ntoma nuevo, preocupante o que empeore. You were evaluated for chest pain and shortness of breath. He tested positive for COVID-19. Please maintain social isolation per State and Federal guidelines. We treated you for dehydration with 2 L of normal saline. Thank you for choosing this emergency department for evaluation. Please follow-up with primary care physician as needed. Return to the emergency department for any new, concerning, or worsening symptoms. Prescriptions: No Action Spiriva with HandiHaler 18 mcg capsule, w/inhalation device 1 cap inhalation DAILY Qty: 60 3RF Rx Instructions: puncture 1 cap using device; one dose = 2 inhalations Flovent HFA 110 mcg/actuation HFA aerosol inhaler 1 puff PO BID Qty: 12 2RF simethicone [Gas Relief (simethicone)] 180 mg capsule 180 mg PO BID 30 Days Qty: 60 4RF Rx Instructions: after meals dexlansoprazole [Dexilant] 60 mg capsule,biphase delayed releas 60 mg PO DAILY Qty: 30 0RF bupropion HCl 75 mg tablet 150 mg PO BID 30 Days Qty: 120 6RF Nicotrol 10 mg cartridge 1 inh inhalation Q2-4H PRN (Reason: nicotine cravings) 30 Days Qty: 168 0RF Trelegy Ellipta 200-62.5-25 mcg blister with device 1 inh inhalation DAILY 30 Days Qty: 60 12RF albuterol sulfate 90 mcg/actuation HFA aerosol inhaler 2 inh inhalation Q6H PRN (Reason: shortness of breath or wheezing) 30 Days Qty: 18 12RF carvedilol 12.5 mg tablet 12.5 mg PO BID 0RF trazodone 100 mg tablet PO 0RF quetiapine 300 mg tablet 300 mg PO BEDTIME 0RF simvastatin 20 mg tablet 20 mg PO BEDTIME 0RF latanoprost 0.005 % drops ophthalmic (eye) 0RF Entresto 49-51 mg tablet 1 tab PO BID 0RF Chantix Continuing Month Box 1 mg tablet 1 mg PO BID 0RF sennosides [senna] 8.6 mg tablet 17.2 mg PO BEDTIME PRN (Reason: constipation) 0RF metoclopramide HCl [Reglan] 10 mg tablet 10 mg PO QIDACHS 30 Days Qty: 90 3RF Rx Instructions: On risperidal and will be monitored Linzess 72 mcg capsule 72 mcg PO QAM Qty: 30 6RF Interventions: ED Discharge Assessment Last Done: 11/11/21 22:17 Discharge Date/Time: 11/11/21 22:20
--- NOTE | 2021-11-11 17:36 | ECG_ITS ---
Test Reason : WEAKNESS Blood Pressure : / mmHG Vent. Rate : 086 BPM Atrial Rate : 086 BPM P-R Int : 154 ms QRS Dur : 080 ms QT Int : 374 ms P-R-T Axes : 062 065 055 degrees QTc Int : 447 ms Sinus rhythm with occasional Premature ventricular complexes and Premature atrial complexes Nonspecific ST abnormality Abnormal ECG When compared with ECG of 29-JUL-2017 10:27, Premature ventricular complexes are now Present Premature atrial complexes are now Present Nonspecific T wave abnormality now evident in Anterior leads Referred By: Josette Johnson Electronically Signed By:Casimiro Love
[2021-11-11] MEDS: 0.9 % Sodium Chloride 1,000 ML 999 ML IVCONT ×2 (17:50→20:45)
[2021-11-11 18:38] VITALS: BP 115/78; PULSE 85; O2SAT 95
[2021-11-11 19:15] VITALS: BP 115/82; PULSE 88; RESP 16; TEMP 36.9; O2SAT 95
[2021-11-11 19:50] LABS: Magnesium 1.7 mg/dL (1.6-2.6)
[2021-11-11 20:02] LABS: Troponin-I High Sensitivity 8.8 ng/L (<3.5-35.0)
[2021-11-11 20:19] LABS: Influenza A PCR NEGATIVE (Negative); Influenza B PCR NEGATIVE (Negative); Resp Syncy Virus RNA Qual PCR NEGATIVE (Negative); SARS COV2 PCR INHOUSE POSITIVE (Negative)
[2021-11-11 21:11] LABS: Appearance Urine CLEAR; Color Urine YELLOW; Glucose Urine UA NEG (NEG); Leukocyte Esterase Urine NEG (NEG); Nitrite Urine NEG (NEG); Specific Gravity - Urine 1.025 (1.005-1.025); UACC Culture Trigger NO; Urine Blood 2+ (NEG); Urine Ketones 15 MG/DL (NEG); Urine Protein NEG (NEG-TRACE)
[2021-11-11 21:20] LABS: Bacteria Urine 2+ /LPF; Mucus Urine 2+ /LPF; Squamous Epithelial Cell Urine 1+ /LPF
[2021-11-11 22:00] VITALS: BP 123/88; PULSE 80; RESP 16; TEMP 36.6; O2SAT 96
== END 2021-11-11 22:20 | disposition home or self-care (01) ==
PROVIDERS: Nurse Practitioner Family; Emergency Provider Emergency Medicine; PCP Internal Medicine
DX: U07.1 COVID-19 (principal); E86.0 Dehydration; I10 Essential (primary) hypertension; E78.5 Hyperlipidemia, unspecified; F17.200 Nicotine dependence, unspecified, uncomplicated
CPT/HCPCS: 0241U; 36415; 70450; 71045; 80048; 81001; 83735; 84484; 85025; 85610; 85730; 93005; 96360; 96361; 99284

== ENCOUNTER 2022-02-10 09:58 | Emergency (ER) | payer MEDICARE, MEDICAID, SELFPAY ==
--- NOTE | ~2022-02-10 | CT_ITS ---
EXAMINATION: CT ABDOMEN AND PELVIS WITHOUT CONTRAST CLINICAL INFORMATION: Extensive stool burden/back pain/abdominal pain. COMPARISON: CT abdomen/pelvis 06/19/2012. TECHNIQUE: Multidetector volumetric imaging was performed from the superior aspect of the liver through the pubic symphysis. [address] examination was performed using dose optimization techniques as appropriate, variously including the following: *Automated exposure control *Adjustment of mA and/or kV according to patient size (this includes techniques or standardized protocols for targeted exams where dose is matched to indication/reason for exam; i.e. extremities or head) *Use of iterative reconstruction technique DLP: 506 mGy-cm FINDINGS: LUNG BASES: Background of emphysematous changes and peripheral reticulation again noted. There is a new focal somewhat irregular airspace opacity adjacent to subpleural blebs in the right lung base measuring 2 x 1 cm on axial image 22, series 4. LIVER, GALLBLADDER, AND BILIARY TREE: There are a few too small to characterize liver hypodensities, for instance on images 79, 55 and 24 of coronal series 7, unchanged when compared to 06/19/2012 favoring to represent small cysts. The liver is otherwise normal in size, shape and attenuation. Normal CT appearance of the gallbladder. No biliary ductal dilatation. PANCREAS: Limited noncontrast examination, unremarkable. SPLEEN: Limited noncontrast examination with redemonstration of a small granuloma in the medial surface of the spleen (3:14). ADRENAL GLANDS: A 0.9 cm nodule in the medial limb of the left adrenal gland (3:20) is stable when compared to 06/19/2012. Normal right adrenal gland. KIDNEYS AND URETERS: Limited noncontrast examination. No hydronephrosis or nephrolithiasis. There are a few simple water density cysts and other too small to characterize hypodensities which are statistically also likely to represent simple cysts and for which no imaging follow-up is recommended. BLADDER: Unremarkable. GASTROINTESTINAL TRACT: Small hiatal hernia. The stomach and the small bowel are nondilated. Normal appendix. Mild to moderate colonic and rectal stool burden. No evidence to suspect acute colitis, diverticulitis or bowel obstruction. ABDOMINAL WALL: No significant hernia is appreciated. LYMPH NODES: No lymphadenopathy by size criteria. VASCULAR: Atherosclerotic disease. The abdominal aorta is of normal diameter. PELVIC VISCERA: Mild prostatomegaly. OSSEOUS STRUCTURES: Degenerative changes of the spine. CT/CT abdomen pelvis wo con IMPRESSION: Small hiatal hernia. No evidence of active inflammatory bowel changes or bowel obstruction. No hydronephrosis or nephrolithiasis. Nonspecific new somewhat irregular airspace opacity in the right base adjacent to subpleural blebs, possibly related with atelectasis or scarring. Recommend reevaluation with an elective chest CT.
--- NOTE | ~2022-02-10 | XR_ITS ---
EXAMINATION: XR LUMBOSACRAL SPINE CLINICAL INFORMATION: Back pain. COMPARISON: Radiograph of the lumbar spine dated from 03/07/2015. TECHNIQUE: Three views of the lumbosacral spine. FINDINGS: No acute compression deformity or malalignment. Mild to moderate multilevel lumbar spondylosis, more notable at L5-S1, manifested by disc space narrowing, osteophytes and facet arthropathy. Sacroiliac joints are symmetric. No significant soft tissue abnormality. Atherosclerotic disease of the abdominal aorta noted. XR/XR lumbar spine 2-3V IMPRESSION: No acute compression deformity or subluxation. Mild to moderate multilevel lumbar spondylosis, more notable in the lower lumbar spine. If clinically deemed appropriate, correlation with an MRI of the lumbar spine could be obtained for further evaluation of nerve root impingement and degree of central canal narrowing.
[2022-02-10 11:50] VITALS: BP 110/79; PULSE 66; RESP 16; TEMP 36.1; O2SAT 96; BMI 23.6
[2022-02-10 12:22] LABS: Appearance Urine Clear; Color Urine Yellow; Glucose Urine UA Negative (Negative); Leukocyte Esterase Urine Negative (Negative); Nitrite Urine Negative (Negative); PH 5.5 (5.0-8.0); Urine Blood Negative (Negative); Urine Ketones Negative (Negative); Urine Protein Negative (Neg-Trace)
--- NOTE | 2022-02-10 14:55 | ED.GENADULT ---
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 Patient states that over the last week he has had right sided back pain. Patient states that he has tried Tylenol and it hasn't helped. Patient denies any dizziness, lightheadedness, abdominal pain, nausea, vomiting, fever, chills, blurry vision, double vision, loss of vision, chest pain, difficulty breathing, shortness of breath, night sweats, pain with urination, increased urinary frequency, increased urinary urgency, blood in his urine or stool, syncope or a near syncopal episode, recent trauma or falls, bowel incontinence, bladder incontinence, bowel retention, bladder retention, or any other complaints at this time. Patient states that he is normally constipated but feels like he is even more so lately. Patient denies any opiate medication use. Onset (ago): week(s) (1) Location: back Radiation: non-radiation Severity: mild Severity scale (1-10): 3 Quality: aching and dull Pain Consistency: constant Relieving factors: none Exacerbating factors: none Associated symptoms: denies other symptoms Treatments prior to arrival: none Related Data Home Medications Medication Instructions Recorded Confirmed carvedilol 12.5 mg tablet 12.5 mg PO BID 03/27/20 03/30/21 latanoprost 0.005 % eye drops drp ophthalmic (eye) 03/27/20 03/30/21 quetiapine 300 mg tablet 300 mg PO BEDTIME 03/27/20 03/30/21 simvastatin 20 mg tablet 20 mg PO BEDTIME 03/27/20 03/30/21 trazodone 100 mg tablet mg PO 03/27/20 03/30/21 sacubitril 49 mg-valsartan 51 mg 1 tab PO BID 01/04/21 03/30/21 tablet varenicline 1 mg tablet 1 mg PO BID 01/04/21 03/30/21 sennosides 8.6 mg tablet (senna) 17.2 mg PO BEDTIME PRN constipation 05/01/21 Previous Rx's Medication Instructions Recorded tiotropium bromide 18 mcg capsule 1 cap inhalation DAILY #60 08/31/20 with inhalation device (Spiriva inhalations with HandiHaler) Flovent HFA 110 mcg/actuation 1 puff PO BID #12 grams 01/17/21 aerosol inhaler (fluticasone propionate) albuterol sulfate 90 mcg/actuation 2 inh inhalation Q6H PRN shortness 02/08/21 aerosol inhaler of breath or wheezing 30 days #18 grams bupropion HCl 75 mg tablet 150 mg PO BID 30 days #120 tabs 02/08/21 fluticasone fur. 200 mcg-umeclid 1 inh inhalation DAILY 30 days #60 02/08/21 62.5 mcg-vilant 25 mcg ea inhalat.powder (Trelegy Ellipta) nicotine 10 mg inhalation 1 inh inhalation Q2-4H PRN 02/08/21 cartridge (Nicotrol) nicotine cravings 30 days #168 ea simethicone 180 mg capsule (Gas 180 mg PO BID 30 days #60 caps 04/11/21 Relief (simethicone)) metoclopramide HCl 10 mg tablet 10 mg PO QIDACHS 30 days #90 tabs 05/01/21 (Reglan) linaclotide 72 mcg capsule 72 mcg PO QAM #30 caps 08/03/21 (Linzess) dexlansoprazole 60 mg 60 mg PO DAILY #30 caps 01/17/22 capsule,biphase delayed release (Dexilant) peg 3350-electrolytes 236 240 ml PO Q10M #4,000 mL 02/10/22 gram-22.74 gram-6.74 gram-5.86 gram solution (Golytely) Allergies Allergy/AdvReac Type Severity Reaction Status Date / Time No Known Allergies Allergy Verified 11/11/21 16:08 [No Known Allergies*] Review of Systems Constitutional: Constitutional: Reports no additional constitutional complaints, Denies chills, Denies fever(s) and Denies night sweats Eyes: Eyes: Reports no additional eye complaints, Denies blurry vision, Denies change in vision, Denies diplopia, Denies eye discharge, Denies loss of vision and Denies eye pain ENT: Denies dizziness Cardiovascular: Cardiovascular: Reports no additional cardiovascular complaints, Denies chest pain, Denies lightheadedness, Denies Loss of Consciousness and Denies dyspnea Respiratory: Respiratory: Reports no additional respiratory complaints and Denies dyspnea Gastrointestinal: Gastrointestinal: Reports no additional gastrointestinal complaints, Denies abdominal pain, Denies melena, Denies hematochezia, Denies change in bowel habits and Denies change in stool character Genitourinary: Genitourinary: Reports no additional male genitourinary complaints, Denies hematuria, Denies oliguria, Denies difficulty urinating, Denies dysuria, Denies urinary frequency, Denies urinary hesitancy, Denies urinary incontinence and Denies urinary urgency Musculoskeletal: Musculoskeletal: Reports no additional musculoskeletal complaints, Reports back pain, Denies numbness and Denies tingling Neurologic: Denies dizziness, Denies loss of vision, Denies numbness and Denies tingling Psychiatric: Psychiatric: Reports no additional psychiatric complaints Endocrine: Endocrine: Reports no additional endocrine complaints Hematologic/Lymphatic: Hematologic/Lymphatic: Reports no additional hematologic/lymphatic complaints Allergic/Immunologic: Allergic/Immunologic: Reports no additional allergic/immunologic complaints PMFSH Past Medical History Attestation statement: The following information was validated with the patient. Source: old records reviewed Medical History Constipation COPD (chronic obstructive pulmonary disease) COPD (chronic obstructive pulmonary disease) Dyspnea Hyperlipidemia Hypertension Personal history of nicotine dependence Pulmonary nodules Tubular adenoma of colon Surgical History History of appendectomy History of gastric surgery History of surgery on left wrist (~03/21/10) Hx of cataract surgery (~07/02/10) Hx of colonoscopy (~02/13/06) Hx of endoscopy Family History Family History Mother Renal failure Father History of depression Brother Colon cancer Social History Social History Alcohol intake: current Alcohol intake frequency: holidays/special occasions only Patient Tobacco Use Status: Current everyday Tobacco user Cigarette Packs Per Day: 0.5 Years Smoked: 51 (onset 14yo) Advance Directives: No Advance Directives Information Provided: No Physical Exam ED Vital Signs: Vital Signs - 24 hr 02/10/22 11:50 02/10/22 16:03 Temperature 96.9 F 97.6 F Pulse Rate 66 70 Respiratory Rate 16 18 Blood Pressure 110/79 107/90 H Pulse Oximetry 96 98 Oxygen Delivery Method Room Air Room Air BMI result Body Mass Index 23.6 Const General: cooperative, no acute distress, alert and awake Nutritional Appearance: well nourished Orientation/consciousness: patient oriented x3 Limitations: no limitations HENMT Head: Yes normal to inspection and Yes atraumatic Ears: hearing grossly normal bilaterally and external ears normal General nose exam: Normal external nose present, no nasal discharge noted and no epistaxis Face and sinus: Yes normal facial exam, No abrasion and No laceration Mouth: Normal oral and palatal mucosa present, no drooling and no muffled voice Eyes General: appearance normal, both eyes and all related structures Periorbital: periorbital findings normal Eyelids: Yes eyelids normal Conjunctivae: conjunctivae normal Pupils: Equal, round and reactive pupils present EOM: EOMs intact bilaterally Neck Neck: Yes normal visual inspection, Yes full ROM and Yes no lymphadenopathy Chest Chest palpation & inspection: normal inspection of the chest Resp Effort & Inspection: normal respiratory effort and able to speak in complete sentences Auscultation: clear to auscultation bilaterally Cardio Rate: regular rate Rhythm: regular rhythm GI Inspection: Yes normal to inspection General: Yes no CVA tenderness Back/Spine/Pelvis Back: no CVA tenderness Cervical Spine: normal cervical lordosis and cervical ROM normal Thoracic/Lumbar Spine: thoracic and lumbar spine normal to inspection and thoraco-lumbar ROM normal Neuro General: patient oriented x3 and moves all extremities Cranial nerves: Yes Equal, round and reactive pupils present Cognition (Neuro): normal cognition Motor exam (neuro): 5/5 motor strength present throughout Sensory Exam: Normal double simultaneous stimulation for sensation Coordination: [id number] test normal Extrem General: Yes normal to inspection, Yes full ROM and Yes capillary refill normal Psych Appearance: grossly normal Mental Status: mental status grossly normal Affect: normal affect Attitude: cooperative Thought process: Normal thought process present Thought content: Normal thought content present Insight: Good insight present (Psych) Medical Decision Making MDM Narrative Medical decision making narrative: Patient is a 66 year old male presenting to the emergency department today with right sided back pain. Patient's physical exam was unremarkable. Patient's blood work was unremarkable. Patient's urine showed no acute process. Patient's chest x-ray showed no acute process. Patient's abdominal CT showed no acute process. I explained my physical exam findings as well as all test results to the patient. I answered all questions asked by the patient. I stressed the importance of the patient taking his medication as prescribed. I stressed the importance of the patient following up with his primary care provider. I stressed the importance of the patient returning to the emergency department immediately if his symptoms were to worsen or if he were to develop any dizziness, shortness of breath, difficulty breathing, chest pain, blurry vision, loss of vision, nausea, vomiting, abdominal pain, fever, chills, back pain, or any other complaints. Patient verbalized agreement and understanding with this treatment plan and discharge. Differential Diagnosis Differential Diagnosis: Constipation Medical Records Medical records reviewed: Yes I reviewed the patient's medical records. Lab Data Lab results reviewed: Yes I reviewed the patient's lab results. Result diagrams: 02/10/22 16:01 02/10/22 16:01 Labs: Lab Results 02/10/22 02/10/22 02/10/22 Range/Units 12:02 16:01 16:01 WBC 6.2 (4.8-10.8) X10*3/uL RBC 4.85 (4.60-5.80) X10*6/uL Hgb 14.1 (14.0-18.0) g/dl Hct 42.9 (42.0-52.0) % MCV 88.5 (80.0-98.0) fL MCH 29.1 (27.0-33.0) pg MCHC 32.9 (31.0-36.0) g/dl RDW 13.8 (11.0-16.0) % Plt Count 224 (160-400) X10*3/uL MPV 9.9 (9.4-12.4) fL Immature Gran % (Auto) 0.2 (0.0-0.4) % Neut % (Auto) 60.6 (45-73) % Lymph % (Auto) 28.1 (20-40) % [place] % (Auto) 8.8 (2-11) % Eos % (Auto) 1.8 (0-4) % Baso % (Auto) 0.5 (0-2) % Lymph # (Auto) 1.8 (1.2-4.9) X10*3/uL [place] # (Auto) 0.6 (0.1-1.2) X10*3/uL Eos # (Auto) 0.1 (0.0-0.4) X10*3/uL Baso # (Auto) 0.0 (0.0-0.2) X10*3/uL Abs Immat Gran (auto) 0.01 (0.00-0.03) X10*3/uL Absolute Neuts (auto) 3.8 (2.0-8.3) x10*3/uL Absolute Nucleated RBC 0.000 (0.0-0.012) X10*3/uL Nucleated RBC % (auto) 0.0 (0.0-0.2) /100WBC Sodium 139 (135-145) mmol/L Potassium 4.6 D (3.3-5.1) mmol/L Chloride 104 (96-108) mmol/L Carbon Dioxide 24 (22-29) mmol/L Anion Gap 16 (12-20) BUN 22 H D (9-16) mg/dL Creatinine 1.00 (0.5-1.4) mg/dL Estim Creat Clear Calc 71.6 Estimated GFR > 60 Random Glucose 102 (60-115) mg/dL Calcium 8.5 (8.4-10.2) mg/dL Magnesium 2.2 (1.6-2.6) mg/dL Total Bilirubin 1.1 H (0.0-1.0) mg/dL AST 51 H (5-37) U/L ALT 47 H (0-40) U/L Alkaline Phosphatase 62 (39-117) U/L Total Protein 7.1 (6.5-8.0) g/dL Albumin 3.9 (3.5-5.0) g/dL Urine Color Yellow Urine Appearance Clear Urine pH 5.5 (5.0-8.0) Ur Specific [place] 1.010 (1.005-1.025) Urine Protein Negative (Neg-Trace) mg/dL Urine Glucose (UA) Negative (Negative) mg/dL Urine Ketones Negative (Negative) mg/dL Urine Blood Negative (Negative) Urine Nitrite Negative (Negative) Ur Leukocyte Esterase Negative (Negative) Imaging Data Lumbar XR: Attestation: I personally reviewed and interpreted this imaging study as follows: My impression: No acute process. Radiologist's impression: EXAMINATION: XR LUMBOSACRAL SPINE CLINICAL INFORMATION: Back pain. COMPARISON: Radiograph of the lumbar spine dated from 03/07/2015. TECHNIQUE: Three views of the lumbosacral spine. FINDINGS: No acute compression deformity or malalignment. Mild to moderate multilevel lumbar spondylosis, more notable at L5-S1, manifested by disc space narrowing, osteophytes and facet arthropathy. Sacroiliac joints are symmetric. No significant soft tissue abnormality. Atherosclerotic disease of the abdominal aorta noted. XR/XR lumbar spine 2-3V IMPRESSION: No acute compression deformity or subluxation. ? Mild to moderate multilevel lumbar spondylosis, more notable in the lower lumbar spine. If clinically deemed appropriate, correlation with an MRI of the lumbar spine could be obtained for further evaluation of nerve root impingement and degree of central canal narrowing. Dictated By: Zee Davison Signed By: Electronically signed by Zee?Laney 02/10/[address] scan - abdomen: Attestation: I personally reviewed and interpreted this imaging study as follows: My impression: No acute process. Radiologist's impression: EXAMINATION: CT ABDOMEN AND PELVIS WITHOUT CONTRAST? CLINICAL INFORMATION: Extensive stool burden/back pain/abdominal pain.? COMPARISON: CT abdomen/pelvis 06/19/2012.? TECHNIQUE: Multidetector volumetric imaging was performed from the superior aspect of the liver through the pubic symphysis. 506? This CT examination was performed using dose optimization techniques as appropriate, variously including the following: *Automated exposure control *Adjustment of mA and/or kV according to patient size (this includes techniques or standardized protocols for targeted exams where dose is matched to indication/reason for exam; i.e. extremities or head) *Use of iterative reconstruction technique DLP: 506 mGy-cm FINDINGS: LUNG BASES: Background of emphysematous changes and peripheral reticulation again noted. There is a new focal somewhat irregular airspace opacity adjacent to subpleural blebs in the right lung base measuring 2 x 1 cm on axial image 22, series 4. LIVER, GALLBLADDER, AND BILIARY TREE: There are a few too small to characterize liver hypodensities, for instance on images 79, 55 and 24 of coronal series 7, unchanged when compared to 06/19/2012 favoring to represent small cysts. The liver is otherwise normal in size, shape and attenuation. Normal CT appearance of the gallbladder. No biliary ductal dilatation. PANCREAS: Limited noncontrast examination, unremarkable.? SPLEEN: Limited noncontrast examination with redemonstration of a small granuloma in the medial surface of the spleen (3:14).? ADRENAL GLANDS: A 0.9 cm nodule in the medial limb of the left adrenal gland (3:20) is stable when compared to 06/19/2012. Normal right adrenal gland.? KIDNEYS AND URETERS: Limited noncontrast examination. No hydronephrosis or nephrolithiasis. There are a few simple water density cysts and other too small to characterize hypodensities which are statistically also likely to represent simple cysts and for which no imaging follow-up is recommended.? BLADDER: Unremarkable.? GASTROINTESTINAL TRACT: Small hiatal hernia. The stomach and the small bowel are nondilated. Normal appendix. Mild to moderate colonic and rectal stool burden. No evidence to suspect acute colitis, diverticulitis or bowel obstruction.? ABDOMINAL WALL: No significant hernia is appreciated.? LYMPH NODES: No lymphadenopathy by size criteria. VASCULAR: Atherosclerotic disease. The abdominal aorta is of normal diameter. PELVIC VISCERA: Mild prostatomegaly.? OSSEOUS STRUCTURES: Degenerative changes of the spine.? CT/CT abdomen pelvis wo con IMPRESSION: Small hiatal hernia. ? No evidence of active inflammatory bowel changes or bowel obstruction. ? No hydronephrosis or nephrolithiasis. ? Nonspecific new somewhat irregular airspace opacity in the right base adjacent to subpleural blebs, possibly related with atelectasis or scarring. Recommend reevaluation with an elective chest CT. Dictated By: Zee Davison Signed By: Electronically signed by Cedrick 02/10/22 1600 Discharge Plan Discharge Clinical Impression: Constipation Patient Disposition: Home, Self-Care Instructions: Constipation (ED) Additional Instructions: Follow up with your primary care provider. Return to the emergency department immediately if your symptoms worsen or if you develop any dizziness, shortness of breath, difficulty breathing, chest pain, blurry vision, loss of vision, nausea, vomiting, abdominal pain, fever, chills, back pain, or any other complaints. Tania un seguimiento con luevano proveedor de atenci?n primaria. Regrese al departamento de emergencias de inmediato si elen s?ntomas empeoran o si presenta mareos, falta de aire, dificultad para respirar, dolor en el pecho, visi?n borrosa, p?rdida de la visi?n, n?useas, v?mitos, dolor abdominal, fiebre, escalofr?os, dolor de espalda o cualquier otras quejas. Prescriptions: New peg 3350-electrolytes [Golytely] 236-22.74-6.74 -5.86 gram recon soln 240 ml PO Q10M Qty: 4000 0RF Rx Instructions: hasta que el efluente fecal sea transparente. Dedique al MENOS 2 d?as de descanso mientras usa esto. No Action Spiriva with HandiHaler 18 mcg capsule, w/inhalation device 1 cap inhalation DAILY Qty: 60 3RF Rx Instructions: puncture 1 cap using device; one dose = 2 inhalations Flovent HFA 110 mcg/actuation HFA aerosol inhaler 1 puff PO BID Qty: 12 2RF simethicone [Gas Relief (simethicone)] 180 mg capsule 180 mg PO BID 30 Days Qty: 60 4RF Rx Instructions: after meals dexlansoprazole [Dexilant] 60 mg capsule,biphase delayed releas 60 mg PO DAILY Qty: 30 0RF bupropion HCl 75 mg tablet 150 mg PO BID 30 Days Qty: 120 6RF Nicotrol 10 mg cartridge 1 inh inhalation Q2-4H PRN (Reason: nicotine cravings) 30 Days Qty: 168 0RF Trelegy Ellipta 200-62.5-25 mcg blister with device 1 inh inhalation DAILY 30 Days Qty: 60 12RF albuterol sulfate 90 mcg/actuation HFA aerosol inhaler 2 inh inhalation Q6H PRN (Reason: shortness of breath or wheezing) 30 Days Qty: 18 12RF carvedilol 12.5 mg tablet 12.5 mg PO BID trazodone 100 mg tablet PO quetiapine 300 mg tablet 300 mg PO BEDTIME simvastatin 20 mg tablet 20 mg PO BEDTIME latanoprost 0.005 % drops ophthalmic (eye) Entresto 49-51 mg tablet 1 tab PO BID Chantix Continuing Month Box 1 mg tablet 1 mg PO BID sennosides [senna] 8.6 mg tablet 17.2 mg PO BEDTIME PRN (Reason: constipation) metoclopramide HCl [Reglan] 10 mg tablet 10 mg PO QIDACHS 30 Days Qty: 90 3RF Rx Instructions: On risperidal and will be monitored Linzess 72 mcg capsule 72 mcg PO QAM Qty: 30 6RF Referrals: Rigoberto Madrigal MD [Primary Care Provider] - Stand Alone Forms: Work/School Release Interventions: ED Discharge Assessment Last Done: 02/10/22 16:53 Discharge Date/Time: 02/10/22 16:53 Print Language: Kosovan
[2022-02-10 16:03] VITALS: BP 107/90; PULSE 70; RESP 18; TEMP 36.4; O2SAT 98
[2022-02-10 16:04] LABS: MANUAL DIFF FLAG NO
[2022-02-10 16:07] LABS: Basophils Percent Auto 0.5 % (0-2); Eosinophils Absolute Auto 0.1 X10*3/uL (0.0-0.4); Eosinophils Percent Auto 1.8 % (0-4); Hematocrit 42.9 % (42.0-52.0); Hemoglobin 14.1 g/dl (14.0-18.0); Imm Gran Abs Auto 0.01 X10*3/uL (0.00-0.03); Imm Gran Pct Auto 0.2 % (0.0-0.4); Lymphocytes Absolute Auto 1.8 X10*3/uL (1.2-4.9); Lymphocytes Percent Auto 28.1 % (20-40); Mean Corpuscular HGB Conc 32.9 g/dl (31.0-36.0); Mean Corpuscular Hemoglobin 29.1 pg (27.0-33.0); Mean Corpuscular Volume 88.5 fL (80.0-98.0); Mean Platelet Volume 9.9 fL (9.4-12.4); Monocytes Absolute Auto 0.6 X10*3/uL (0.1-1.2); Monocytes Percent Auto 8.8 % (2-11); Neutrophils Absolute Auto 3.8 x10*3/uL (2.0-8.3); Neutrophils Percent Auto 60.6 % (45-73); Platelet Count 224 X10*3/uL (160-400); Red Blood Count 4.85 X10*6/uL (4.60-5.80); Red Cell Distribution Width 13.8 % (11.0-16.0); White Blood Count 6.2 X10*3/uL (4.8-10.8)
[2022-02-10 16:30] LABS: Alanine Aminotransferase 47 U/L (0-40); Albumin Level 3.9 g/dL (3.5-5.0); Alkaline Phosphatase 62 U/L (39-117); Anion Gap 16 (12-20); Aspartate Amino Transferase 51 U/L (5-37); Bilirubin Total 1.1 mg/dL (0.0-1.0); Blood Urea Nitrogen 22 mg/dL (9-16); Calcium 8.5 mg/dL (8.4-10.2); Carbon Dioxide 24 mmol/L (22-29); Chloride 104 mmol/L (96-108); Creatinine Clr Calc Pharmacy 71.6; Estimated Glomerular Filt Rate > 60; Glucose Random 102 mg/dL (60-115); Magnesium 2.2 mg/dL (1.6-2.6); Potassium 4.6 mmol/L (3.3-5.1); Sodium 139 mmol/L (135-145); Total Protein 7.1 g/dL (6.5-8.0)
== END 2022-02-10 16:53 | disposition home or self-care (01) ==
PROVIDERS: Physician Assistant Medical; Emergency Provider Emergency Medicine; PCP Internal Medicine
DX: K59.00 Constipation, unspecified (principal); R10.9 Unspecified abdominal pain; M54.50 Low back pain, unspecified; F17.210 Nicotine dependence, cigarettes, uncomplicated; Z71.6 Tobacco abuse counseling; Z79.899 Other long term (current) drug therapy; Z98.84 Bariatric surgery status
CPT/HCPCS: 36415; 72100; 74176; 80053; 81003; 83735; 85025; 99283

== ENCOUNTER → 2022-02-13 15:11 | Outpatient (BNVA) | payer MEDICARE, MEDICAID, SELFPAY | PROVIDERS: PCP Internal Medicine; Visit Provider Nurse Practitioner | DX: K59.04 Chronic idiopathic constipation (principal); K21.9 Gastro-esophageal reflux disease without esophagitis; K59.9 Functional intestinal disorder, unspecified | CPT/HCPCS: 99212 ==

== ENCOUNTER → 2022-02-28 13:58 | Outpatient (BNVA) | payer MEDICARE, MEDICAID, SELFPAY | PROVIDERS: PCP Internal Medicine; Referring Provider Internal Medicine; Visit Provider Nurse Practitioner | DX: K59.04 Chronic idiopathic constipation (principal); K21.9 Gastro-esophageal reflux disease without esophagitis; D12.6 Benign neoplasm of colon, unspecified; K22.10 Ulcer of esophagus without bleeding | CPT/HCPCS: 99212 ==

== ENCOUNTER 2022-03-27 13:18 | Emergency (ER) | payer MEDICARE, MEDICAID, SELFPAY ==
--- NOTE | ~2022-03-27 | XR_ITS ---
EXAMINATION: XR SHOULDER, RIGHT CLINICAL INFORMATION: Fall COMPARISON: None TECHNIQUE: AP external rotation, Grashey, scapular Y, and axillary views of the right shoulder. FINDINGS: There is a comminuted minimally displaced fracture of the right distal clavicle. No other fracture is seen. Joint spaces are normal. Soft tissues tissues are normal. XR/XR shoulder RT min 2V IMPRESSION: Comminuted minimally displaced fracture of the right distal clavicle.
[2022-03-27 14:21] VITALS: BP 123/93; PULSE 92; RESP 16; TEMP 36.1; O2SAT 97; BMI 25.1
--- NOTE | 2022-03-27 17:52 | ED.GENADULT ---
HPI - General Adult General Chief complaint: General Medical Stated complaint: shoulder inj r Time Seen by Provider: 03/27/22 17:24 Source: patient Mode of arrival: ambulatory History of Present Illness HPI narrative: 66-year-old male with past medical history of COPD, HLD, HTN, pulmonary nodules, presenting to the ED complaining of right shoulder pain s/p mechanical trip & fall last night while getting into his vehicle and falling onto right shoulder. Denies head trauma or LOC. denies symptoms prior to fall. Denies CP/SOB, nausea/vomiting, weakness. Denies taking anticoagulation Onset (ago): hour(s) Related Data Home Medications Medication Instructions Recorded Confirmed carvedilol 12.5 mg tablet 12.5 mg PO BID 03/27/20 03/30/21 latanoprost 0.005 % eye drops drp ophthalmic (eye) 03/27/20 03/30/21 quetiapine 300 mg tablet 300 mg PO BEDTIME 03/27/20 03/30/21 simvastatin 20 mg tablet 20 mg PO BEDTIME 03/27/20 03/30/21 trazodone 100 mg tablet mg PO 03/27/20 03/30/21 sacubitril 49 mg-valsartan 51 mg 1 tab PO BID 01/04/21 03/30/21 tablet sennosides 8.6 mg capsule (senna) 17.2 mg PO DAILY 02/13/22 Previous Rx's Medication Instructions Recorded tiotropium bromide 18 mcg capsule 1 cap inhalation DAILY #60 08/31/20 with inhalation device (Spiriva inhalations with HandiHaler) bupropion HCl 75 mg tablet 150 mg PO BID 30 days #120 tabs 02/08/21 simethicone 180 mg capsule (Gas 180 mg PO BID 30 days #60 caps 04/11/21 Relief (simethicone)) linaclotide 145 mcg capsule 145 mcg PO QAM #30 caps 02/13/22 (Linzess) Trelegy Ellipta 200 mcg-62.5 1 inh inhalation DAILY 30 days #60 02/27/22 mcg-25 mcg powder for inhalation ea (ueeyzybaveg-elptwvvdi-ncktbahe) Ventolin HFA 90 mcg/actuation 2 inh inhalation Q6H PRN shortness 02/27/22 aerosol inhaler (albuterol sulfate) of breath or wheezing 30 days #18 grams peg 3350-electrolytes 236 240 ml PO Q10M 1 day #4,000 mL 02/28/22 gram-22.74 gram-6.74 gram-5.86 gram solution (Golytely) dexlansoprazole 60 mg 60 mg PO DAILY #30 caps 03/01/22 capsule,biphase delayed release metoclopramide HCl 10 mg tablet 10 mg PO QID #90 tabs 03/08/22 Allergies Allergy/AdvReac Type Severity Reaction Status Date / Time No Known Allergies Allergy Verified 02/28/22 14:35 [No Known Allergies*] Review of Systems Review of Systems: Constitutional: No Fever, No Chills ENT/Mouth: No Ear Pain, No Nasal Congestion, No sore throat, No Rhinorrhea, No Swallowing Difficulty Cardiovascular: No Chest Pain, No SOB Respiratory: No Cough, No Sputum Gastrointestinal: No Nausea, No Vomiting, No Diarrhea, No Constipation, No Abdominal pain Genitourinary: No Dysuria, No Flank Pain Musculoskeletal: + joint pain, No Myalgias, No Joint Swelling Skin: No Skin Lesions, No rash Neuro: No Weakness, No Numbness, No Paresthesias, no head trauma, no LOC Yes all other systems are reviewed and are negative Constitutional: Constitutional: Reports as per [facility] Past Medical History Attestation statement: The following information was validated with the patient. Medical History Constipation COPD (chronic obstructive pulmonary disease) COPD (chronic obstructive pulmonary disease) Dyspnea Hyperlipidemia Hypertension Personal history of nicotine dependence Pulmonary nodules Tubular adenoma of colon Surgical History History of appendectomy History of gastric surgery History of surgery on left wrist (~03/21/10) Hx of cataract surgery (~07/02/10) Hx of colonoscopy (~02/13/06) Hx of endoscopy Family History Family History Mother Renal failure Father History of depression Brother Colon cancer Social History Social History Alcohol intake: current Alcohol intake frequency: holidays/special occasions only Patient Tobacco Use Status: Current everyday Tobacco user Cigarette Packs Per Day: 0.5 Years Smoked: 51 (onset 14yo) Advance Directives: No Advance Directives Information Provided: No Physical Exam ED Vital Signs: Vital Signs - 24 hr 03/27/22 14:21 Temperature 97.0 F Pulse Rate 92 Respiratory Rate 16 Blood Pressure 123/93 H Pulse Oximetry 97 Oxygen Delivery Method Room Air BMI result Body Mass Index 25.1 Const General: cooperative, healthy appearing and no acute distress Orientation/consciousness: patient oriented x3 Limitations: no limitations HENMT Head: Yes normal to inspection and Yes atraumatic Ears: hearing grossly normal bilaterally General nose exam: Normal external nose present Face and sinus: Yes normal facial exam Eyes General: appearance normal, both eyes and all related structures EOM: EOMs intact bilaterally Neck Other: No midline cervical spinous tenderness/step-off or deformity Neck: Yes normal visual inspection and Yes no meningeal signs Resp Effort & Inspection: normal respiratory effort, not labored and no respiratory distress Cardio Rate: regular rate Heart sounds: S1 normal heart sound present and S2 normal heart sound present Peripheral pulses: radial pulses present and ulnar radial pulses present Skin Rashes: no rashes Wounds: no wounds Neuro General: patient oriented x3, gait normal, tone normal, moves all extremities, no meningeal signs and no focal motor deficits Gait exam (Neuro): Normal gait present Extrem Other: Right shoulder without appreciable deformity. + noted ecchymosis to right trapezius muscle extending from clavicle. Clavicle is tender to palpation. Decreased ROM to right shoulder secondary to pain. Neurovascular intact distally. Humerus/elbow/forearm/hand and wrist nontender with full range of motion intact Course Course Course Narrative: XR shoulder RT min 2V IMPRESSION: Comminuted minimally displaced fracture of the right distal clavicle. >> patient placed in sling, recommended orthopedic follow-up. Results discussed with patient including worrisome signs and symptoms and strict return precautions, and when to return to the emergency department. They verbalized understanding and feel safe for discharge at this time. Medical Decision Making MDM Narrative Medical decision making narrative: 66-year-old male with past medical history of COPD, HLD, HTN, pulmonary nodules, presenting to the ED complaining of right shoulder pain s/p mechanical trip & fall last night while getting into his vehicle and falling onto right shoulder. On exam vital signs stable, NAD, nontoxic appearing, physical exam as above. Concern for clavicle/shoulder fracture. No midline spinous tenderness. Low suspicion for ICH Plan: X-rays Medical Records Medical records reviewed: Yes I reviewed the patient's medical records. Lab Data Lab results reviewed: Yes I reviewed the patient's lab results. Discharge Plan Discharge Clinical Impression: Clavicular fracture Patient Disposition: Home, Self-Care Instructions: Clavicle Fracture (ED) Additional Instructions: You have a minimally displaced fracture of your right clavicle. Wear sling at all times until you follow-up with your specialist. you may take off sling to shower. Naproxen as an anti-inflammatory/pain medication, take with food. Additionally take Tylenol. Tramadol as an opiate pain medication, take only when pain is severe for the next 3 days PLEASE FOLLOW-UP WITH EMERGENCY MEDICAL TECHNICIAN BASIC. CALL TOMORROW TO MAKE AN APPOINTMENT THE NEXT 1-2 WEEKS RETURN TO ED IF SYMPTOMS PERSIST OR WORSEN, PAIN BECOMES UNBEARABLE YOU DEVELOP WEAKNESS Tiene fabienne fractura m?nimamente desplazada de la clav?cula derecha. Use un cabestrillo en todo momento hasta que bry un seguimiento con luevano especialista. puede quitarse el cabestrillo para ducharse. Naproxeno gianni medicamento antiinflamatorio/analg?sico, t?bonilla con alimentos. Adem?s, tome Tylenol. 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 LLAME MA?[place] PARA HACER FABIENNE FLOR EN LAS VA?XIMAS 1-2 SEMANAS REGRESE AL ED SI LOS S?NTOMAS PERSISTEN O EMPEORAN, EL DOLOR SE VUELVE INSOPORTABLE DESARROLLA DEBILIDAD Prescriptions: No Action Spiriva with HandiHaler 18 mcg capsule, w/inhalation device 1 cap inhalation DAILY Qty: 60 3RF Rx Instructions: puncture 1 cap using device; one dose = 2 inhalations simethicone [Gas Relief (simethicone)] 180 mg capsule 180 mg PO BID 30 Days Qty: 60 4RF Rx Instructions: after meals Trelegy Ellipta 200-62.5-25 mcg blister with device 1 inh inhalation DAILY 30 Days Qty: 60 0RF albuterol sulfate [Ventolin HFA] 90 mcg/actuation HFA aerosol inhaler 2 inh inhalation Q6H PRN (Reason: shortness of breath or wheezing) 30 Days Qty: 18 0RF dexlansoprazole 60 mg capsule,biphase delayed releas 60 mg PO DAILY Qty: 30 0RF metoclopramide HCl 10 mg tablet 10 mg PO QID Qty: 90 0RF bupropion HCl 75 mg tablet 150 mg PO BID 30 Days Qty: 120 6RF carvedilol 12.5 mg tablet 12.5 mg PO BID trazodone 100 mg tablet PO quetiapine 300 mg tablet 300 mg PO BEDTIME simvastatin 20 mg tablet 20 mg PO BEDTIME latanoprost 0.005 % drops ophthalmic (eye) Entresto 49-51 mg tablet 1 tab PO BID senna 8.6 mg capsule 17.2 mg PO DAILY Linzess 145 mcg capsule 145 mcg PO QAM Qty: 30 6RF peg 3350-electrolytes [Golytely] 236-22.74-6.74 -5.86 gram recon soln 240 ml PO Q10M 1 Days Qty: 4000 0RF Rx Instructions: until fecal effluent is clear; do not exceed a total volume of 2,000 mL Referrals: [facility] – [place] Orthopedic Surgeons [Provider Group] - 1 week Print Language: Italian
[2022-03-27] MEDS: Ketorolac Tromethamine 30 MG/ML VIAL IM (18:20)
== END 2022-03-27 18:25 | disposition home or self-care (01) ==
PROVIDERS: Emergency Provider Emergency Medicine; PCP Internal Medicine
DX: S42.001A Fracture of unspecified part of right clavicle, initial encounter for closed fracture (principal); W01.0XXA Fall on same level from slipping, tripping and stumbling without subsequent striking against object, initial encounter; Y93.9 Activity, unspecified; Y92.9 Unspecified place or not applicable; Y99.9 Unspecified external cause status; Z79.899 Other long term (current) drug therapy; F17.210 Nicotine dependence, cigarettes, uncomplicated; Z71.6 Tobacco abuse counseling
CPT/HCPCS: 73030; 96372; 99283; 99284; J1885

== ENCOUNTER 2022-04-03 16:05 | Emergency (ER) | payer MEDICARE, MEDICAID, SELFPAY ==
--- NOTE | ~2022-04-03 | CT_ITS ---
Indication: Fall, EtOH EXAMINATION: CT of the brain, CT cervical spine. Comparison previous dated 11/11/2021., Plain film cervical spine [address] examination was performed using dose optimization techniques as appropriate, variously including the following: *Automated exposure control *Adjustment of mA and/or kV according to patient size (this includes techniques or standardized protocols for targeted exams where dose is matched to indication/reason for exam; i.e. extremities or head) *Use of iterative reconstruction technique. Radiation dose is 389 and 705. Axial imaging with coronal and sagittal reformatted images. CT brain; There is no midline shift. There is no mass effect. There is no hemorrhage. The basal cisterns appear patent. The posterior fossa is grossly within normal limits. There is no extra-axial collection. Note is made of White matter ischemic change. There is no evidence for fracture on the bone windows. CT cervical spine; Degenerative changes. No evidence for an acute fracture or dislocation. CT/CT cervical spine wo IV con IMPRESSION: Negative acute noncontrast CT of the brain. White matter ischemic changes are noted. No acute fracture or dislocation of the cervical spine. Degenerative changes are noted.
--- NOTE | ~2022-04-03 | CT_ITS ---
Indication: Fall, EtOH EXAMINATION: CT of the brain, CT cervical spine. Comparison previous dated 11/11/2021., Plain film cervical spine [address] examination was performed using dose optimization techniques as appropriate, variously including the following: *Automated exposure control *Adjustment of mA and/or kV according to patient size (this includes techniques or standardized protocols for targeted exams where dose is matched to indication/reason for exam; i.e. extremities or head) *Use of iterative reconstruction technique. Radiation dose is 389 and 705. Axial imaging with coronal and sagittal reformatted images. CT brain; There is no midline shift. There is no mass effect. There is no hemorrhage. The basal cisterns appear patent. The posterior fossa is grossly within normal limits. There is no extra-axial collection. Note is made of White matter ischemic change. There is no evidence for fracture on the bone windows. CT cervical spine; Degenerative changes. No evidence for an acute fracture or dislocation. CT/CT head/brain wo IV con IMPRESSION: Negative acute noncontrast CT of the brain. White matter ischemic changes are noted. No acute fracture or dislocation of the cervical spine. Degenerative changes are noted.
--- NOTE | ~2022-04-03 | XR_ITS ---
EXAMINATION: XR SHOULDER, RIGHT CLINICAL INFORMATION: Clavicular fracture one week ago COMPARISON: Right shoulder 03/27/2022 TECHNIQUE: Four views of the right shoulder. FINDINGS: Comminuted fracture of the distal right clavicle again demonstrated. No change in alignment of fracture fragments since prior exam. Fracture line remains radiolucent. Faint ossification of callus around the fracture is now evident. No new fracture. No dislocation. Glenohumeral joint is normal. XR/XR shoulder RT min 2V IMPRESSION: Healing fracture of the distal right clavicle.
[2022-04-03 16:16] VITALS: BP 102/63; PULSE 94; PULSE 96; RESP 16; TEMP 36.9; O2SAT 94; BMI 24.3
--- NOTE | 2022-04-03 16:20 | ED.FALL ---
HPI - Fall General Chief Complaint: Fall Stated Complaint: Fall with headstrike ETOH Time Seen by Provider: 04/03/22 16:11 Source: patient and EMS Mode of arrival: EMS Limitations: no limitations History of Present Illness HPI Narrative: pt comes to the ED c/o a fall. Pt states that he drank alcohol this afternoon, got on the bus to go home, stepping off the bus, pt lost his balance and fell forward. Patient states that he did not lose consciousness. Patient is not on blood thinners. Patient complaining of right shoulder pain. Of note, 1 week ago patient was here for fall, patient was diagnosed with left clavicular fracture. Patient also has a small laceration to the left eyebrow. Patient denies any other injuries. Related Data Home Medications Medication Instructions Recorded Confirmed carvedilol 12.5 mg tablet 12.5 mg PO BID 03/27/20 03/30/21 latanoprost 0.005 % eye drops drp ophthalmic (eye) 03/27/20 03/30/21 quetiapine 300 mg tablet 300 mg PO BEDTIME 03/27/20 03/30/21 simvastatin 20 mg tablet 20 mg PO BEDTIME 03/27/20 03/30/21 trazodone 100 mg tablet mg PO 03/27/20 03/30/21 sacubitril 49 mg-valsartan 51 mg 1 tab PO BID 01/04/21 03/30/21 tablet sennosides 8.6 mg capsule (senna) 17.2 mg PO DAILY 02/13/22 Previous Rx's Medication Instructions Recorded tiotropium bromide 18 mcg capsule 1 cap inhalation DAILY #60 08/31/20 with inhalation device (Spiriva inhalations with HandiHaler) bupropion HCl 75 mg tablet 150 mg PO BID 30 days #120 tabs 02/08/21 simethicone 180 mg capsule (Gas 180 mg PO BID 30 days #60 caps 04/11/21 Relief (simethicone)) linaclotide 145 mcg capsule 145 mcg PO QAM #30 caps 02/13/22 (Linzess) Trelegy Ellipta 200 mcg-62.5 1 inh inhalation DAILY 30 days #60 02/27/22 mcg-25 mcg powder for inhalation ea (jffmekvhghv-xuvmllvjr-ukmziqhz) Ventolin HFA 90 mcg/actuation 2 inh inhalation Q6H PRN shortness 02/27/22 aerosol inhaler (albuterol sulfate) of breath or wheezing 30 days #18 grams peg 3350-electrolytes 236 240 ml PO Q10M 1 day #4,000 mL 02/28/22 gram-22.74 gram-6.74 gram-5.86 gram solution (Golytely) metoclopramide HCl 10 mg tablet 10 mg PO QID #90 tabs 03/08/22 dexlansoprazole 60 mg 60 mg PO DAILY #30 caps 03/29/22 capsule,biphase delayed release Allergies Allergy/AdvReac Type Severity Reaction Status Date / Time No Known Allergies Allergy Verified 02/28/22 14:35 [No Known Allergies*] Review of Systems Review of Systems: Constitutional : No Weight loss, No Fever, No Chills, No Night Sweats, No Fatigue, No Malaise ENT/Mouth : No Hearing loss, No Ear Pain, No Nasal Congestion, No Sinus Pain, No Hoarseness, No sore throat, No Rhinorrhea, No Swallowing Difficulty Eyes: No Eye Pain, No Swelling, No Redness, No Foreign Body, No Discharge, No Vision Changes Cardiovascular : No Chest Pain, No SOB, No Dyspnea on Exertion, No Orthopnea, No Edema, No Palpitations Respiratory : No Cough, No Sputum, No Wheezing, No Smoke Exposure, No Dyspnea Gastrointestinal : No Nausea, No Vomiting, No Diarrhea, No Constipation, No abdominal Pain, No Hematochezia, No Melena Genitourinary : no irregular bleeding, No Dysuria, No Urinary Frequency, No Hematuria, No Urinary Incontinence, No Urgency, No Flank Pain, No Urinary Flow Changes, No Hesitancy Musculoskeletal : Complaining of right shoulder/clavicle pain, No Myalgias, No Joint Swelling Skin : Laceration to the left eyebrow Neuro : No Weakness, No Numbness, No Paresthesias, No Loss of Consciousness, No Dizziness, No Headache Psych : No Anxiety/Panic, No Depression, No SI/HI/AH/VH, No Social Issues, Heme/Lymph: No Bruising, No Bleeding,No Lymphadenopathy Endocrine : No Polyuria, No Polydipsia, No Temperature Intolerance PMFSH Past Medical History Medical History Constipation COPD (chronic obstructive pulmonary disease) COPD (chronic obstructive pulmonary disease) Dyspnea Hyperlipidemia Hypertension Personal history of nicotine dependence Pulmonary nodules Tubular adenoma of colon Surgical History History of appendectomy History of gastric surgery History of surgery on left wrist (~03/21/10) Hx of cataract surgery (~07/02/10) Hx of colonoscopy (~02/13/06) Hx of endoscopy Family History Family History Mother Renal failure Father History of depression Brother Colon cancer Social History Social History Alcohol intake: current Alcohol intake frequency: holidays/special occasions only Patient Tobacco Use Status: Current everyday Tobacco user Cigarette Packs Per Day: 0.5 Years Smoked: 51 (onset 14yo) Physical Exam Vital Signs: Vital Signs: Last Vital Signs Temp 98.4 F 04/03/22 16:16 Pulse 77 04/03/22 17:42 Resp 16 04/03/22 16:48 BP 98/68 04/03/22 17:42 Pulse Ox 93 04/03/22 17:42 O2 Del Method 04/03/22 17:42 BMI result Body Mass Index 24.3 Course Course Course Narrative: CT scan of the head and neck within normal limits. X-ray shows a healing clavicle, no new injuries. Patient is ambulatory by himself, steady gait. Patient states that he feels well otherwise. The laceration/abrasion on his eyebrow do not require stitches. Patient requesting information for AA. wellness health coach is at bedside providing resources. Patient's sister will be picking him up shortly MDM - Fall Imaging Data Head CT and cervical spine CT: Radiologist's impression: CT brain; There is no midline shift. There is no mass effect. There is no hemorrhage. The basal cisterns appear patent. The posterior fossa is grossly within normal limits. There is no extra-axial collection. Note is made of White matter ischemic change. There is no evidence for fracture on the bone windows. CT cervical spine; Degenerative changes. No evidence for an acute fracture or dislocation. CT/CT cervical spine wo IV con IMPRESSION: Negative acute noncontrast CT of the brain. White matter ischemic changes are noted. ? No acute fracture or dislocation of the cervical spine. Degenerative changes are noted. Shoulder x-ray: Radiologist's impression: FINDINGS: Comminuted fracture of the distal right clavicle again demonstrated. No change in alignment of fracture fragments since prior exam. Fracture line remains radiolucent. Faint ossification of callus around the fracture is now evident. No new fracture. No dislocation. Glenohumeral joint is normal. XR/XR shoulder RT min 2V IMPRESSION: Healing fracture of the distal right clavicle. Discharge Plan Discharge Clinical Impression: Alcohol intoxication, Fall, Abrasion Patient Disposition: Home, Self-Care Instructions: Alcohol Intoxication (ED), Abrasion (ED) Additional Instructions: Please follow-up with your primary care physician tomorrow. If you have any worsening or new symptoms, please return to the emergency room or call 911 Prescriptions: No Action Spiriva with HandiHaler 18 mcg capsule, w/inhalation device 1 cap inhalation DAILY Qty: 60 3RF Rx Instructions: puncture 1 cap using device; one dose = 2 inhalations simethicone [Gas Relief (simethicone)] 180 mg capsule 180 mg PO BID 30 Days Qty: 60 4RF Rx Instructions: after meals Trelegy Ellipta 200-62.5-25 mcg blister with device 1 inh inhalation DAILY 30 Days Qty: 60 0RF albuterol sulfate [Ventolin HFA] 90 mcg/actuation HFA aerosol inhaler 2 inh inhalation Q6H PRN (Reason: shortness of breath or wheezing) 30 Days Qty: 18 0RF metoclopramide HCl 10 mg tablet 10 mg PO QID Qty: 90 0RF dexlansoprazole 60 mg capsule,biphase delayed releas 60 mg PO DAILY Qty: 30 0RF bupropion HCl 75 mg tablet 150 mg PO BID 30 Days Qty: 120 6RF carvedilol 12.5 mg tablet 12.5 mg PO BID trazodone 100 mg tablet PO quetiapine 300 mg tablet 300 mg PO BEDTIME simvastatin 20 mg tablet 20 mg PO BEDTIME latanoprost 0.005 % drops ophthalmic (eye) Entresto 49-51 mg tablet 1 tab PO BID senna 8.6 mg capsule 17.2 mg PO DAILY Linzess 145 mcg capsule 145 mcg PO QAM Qty: 30 6RF peg 3350-electrolytes [Golytely] 236-22.74-6.74 -5.86 gram recon soln 240 ml PO Q10M 1 Days Qty: 4000 0RF Rx Instructions: until fecal effluent is clear; do not exceed a total volume of 2,000 mL
[2022-04-03 16:48] VITALS: BP 108/68; PULSE 96; RESP 16; O2SAT 93
[2022-04-03] MEDS: Acetaminophen 325 MG TABLET 975 MG PO (16:57)
[2022-04-03 17:42] VITALS: BP 98/68; PULSE 77; O2SAT 93
--- NOTE | 2022-04-03 19:13 | MHC.RECOVSUP ---
? Reason for consult Recovery Support o Current location: ED10 o Identified substance use concern: Alcohol - Support ? Intervention: o Community resources provided o Harm reduction discussion ? Plan: o Patient to follow up with [facility] after discharge ? Additional information: Met with Patient and we talk harm reduction and recovery.. Recourses was given to patient..
== END 2022-04-03 19:26 | disposition home or self-care (01) ==
PROVIDERS: Emergency Provider Emergency Medicine
DX: S00.01XA Abrasion of scalp, initial encounter (principal); R51.9 Headache, unspecified; M54.2 Cervicalgia; M25.511 Pain in right shoulder; W01.10XA Fall on same level from slipping, tripping and stumbling with subsequent striking against unspecified object, initial encounter; Y93.9 Activity, unspecified; Y92.9 Unspecified place or not applicable; Y99.9 Unspecified external cause status; F17.210 Nicotine dependence, cigarettes, uncomplicated; Z71.6 Tobacco abuse counseling; Z79.899 Other long term (current) drug therapy
CPT/HCPCS: 70450; 72125; 73030; 99284

== ENCOUNTER 2022-04-05 14:17 | Outpatient (REF) | payer MEDICARE, MEDICAID, SELFPAY ==
--- NOTE | ~2022-04-05 | CT_ITS ---
EXAMINATION: CT CHEST WITHOUT CONTRAST CLINICAL INFORMATION: Follow-up right upper lobe density COMPARISON: Previous chest x-ray October [address] most recent January 2021 TECHNIQUE: Multidetector volumetric CT imaging of the chest was done. Axial MIP volume rendering provided. Sagittal and coronal reformatted images were obtained. This CT examination was performed using dose optimization techniques as appropriate, variously including the following: *Automated exposure control *Adjustment of mA and/or kV according to patient size (this includes techniques or standardized protocols for targeted exams where dose is matched to indication/reason for exam; i.e. extremities or head) *Use of iterative reconstruction technique DLP: 145 mGy-cm FINDINGS: LUNGS: There is evidence of severe emphysema. There is biapical pleural parenchymal scarring and calcification that appears stable. The previously identified right base infiltrate most recent chest x-zoran October 2021 appears improved. There is a new spiculated parenchymal density at the right lung base adjacent to the diaphragmatic pleural surface in the right lower lobe measuring 0.8 x 1.8 cm axial image 432 series 7. This may represent scarring or subsegmental atelectasis related to previous pneumonia.. There is a linear slightly spiculated or irregularly-shaped parenchymal density in the right upper lobe axial image 195 series 7 that is stable. There are new clustered small nodules lingula and increased peribronchial attenuation probably representing airways disease for example axial image 388 series 7. MEDIASTINUM: The mediastinum is normal. CORONARY ARTERY CALCIFICATION: Mild PLEURA: There is no pleural effusion. No pleural mass or thickening. AXILLA: No lymphadenopathy. UPPER ABDOMEN: Small calcification in the spleen. OSSEOUS STRUCTURES: Degenerative changes. CT/CT chest wo IV con IMPRESSION: Severe emphysema. New 0.8 x 1.8 cm irregularly-shaped spiculated parenchymal density in the right lower lobe adjacent to the diaphragmatic pleural surface. This may represent post infectious or inflammatory scarring related to pneumonia October [address] follow-up recommended. New mild airways disease in the lingula. Stable abnormal linear parenchymal density in the right upper lobe probably representing scarring. Fleischner guidelines were followed.
== END 2022-04-05 14:18 | disposition home or self-care (01) ==
LOC: HO.CT 14:17
PROVIDERS: PCP Internal Medicine; Visit Provider Internal Medicine
DX: R91.8 Other nonspecific abnormal finding of lung field (principal)
CPT/HCPCS: 71250

== ENCOUNTER 2022-04-15 06:29 | Outpatient (REF) | payer MEDICARE, MEDICAID, SELFPAY ==
--- NOTE | ~2022-04-15 | XR_ITS ---
EXAMINATION: XR CLAVICLE, RIGHT CLINICAL INFORMATION: Fracture COMPARISON: Previous x-ray from earlier this month TECHNIQUE: 2 of the right clavicle. FINDINGS: There is a comminuted minimally displaced fracture of the right distal clavicle. Alignment appears unchanged. There is minimal periosteal reaction or bony callus formation seen. There is increasing osteopenia. Arthritis at the acromioclavicular joint. Soft tissues are unremarkable. XR/XR clavicle RT IMPRESSION: No change in the comminuted minimally displaced fracture of the right distal clavicle. Osteopenia.
== END 2022-04-15 06:30 | disposition home or self-care (01) ==
LOC: HO.HOSX 06:29
PROVIDERS: Visit Provider Physician Assistant
DX: S42.001A Fracture of unspecified part of right clavicle, initial encounter for closed fracture (principal)
CPT/HCPCS: 73000; 99202

== ENCOUNTER → 2022-04-19 14:02 | Outpatient (BNVA) | payer MEDICARE, MEDICAID, SELFPAY | PROVIDERS: PCP Internal Medicine; Visit Provider Hospitalist | DX: R91.1 Solitary pulmonary nodule (principal); R91.8 Other nonspecific abnormal finding of lung field; J44.9 Chronic obstructive pulmonary disease, unspecified; R06.00 Dyspnea, unspecified; F17.210 Nicotine dependence, cigarettes, uncomplicated | CPT/HCPCS: Q3014 ==

== ENCOUNTER 2022-04-29 08:24 | Emergency (ER) | payer MEDICARE, MEDICAID, SELFPAY ==
--- NOTE | ~2022-04-29 | XR_ITS ---
EXAMINATION: XR CHEST CLINICAL INFORMATION: Congestion, back pain. COMPARISON: 11/11/2021 chest radiograph. TECHNIQUE: Frontal view of the chest was obtained. FINDINGS: No significant abnormality is noted involving the heart, lungs, mediastinum, bony thorax or soft tissues. XR/XR chest 1V IMPRESSION: No acute cardiopulmonary process.
[2022-04-29 08:34] VITALS: BP 131/89; PULSE 80; RESP 16; TEMP 36.7; O2SAT 99; BMI 23.6
--- NOTE | 2022-04-29 09:47 | ED_ITS ---
HPI - General Adult General Chief complaint: General Medical Stated complaint: back pain sob Time Seen by Provider: 04/29/22 09:47 Source: patient and court interpreter Mode of arrival: ambulatory Limitations: language barrier History of Present Illness HPI narrative: Patient is a 66 year old assigned male at with a history of a right clavicle fracture for which he takes tramadol, COPD, HTN, and CHF presenting to the emergency department today with back pain and nasal congestion. Patient states that he has had middle of the back pain for over a week and he believes it's from when he moved the wrong way. Patient states that he is also now having nasal congestion. Patient denies any dizziness, lightheadedness, abdominal pain, nausea, vomiting, fever, chills, blurry vision, double vision, loss of vision, chest pain, difficulty breathing, shortness of breath, night sweats, pain with urination, increased urinary frequency, increased urinary urgency, blood in his urine or stool, syncope or a near syncopal episode, recent trauma or falls, bowel incontinence, bladder incontinence, bowel retention, bladder retention, or any other complaints at this time. Severity: mild Severity scale (1-10): 2 Relieving factors: none Exacerbating factors: none Associated symptoms: denies other symptoms Treatments prior to arrival: none Related Data Home Medications Medication Instructions Recorded Confirmed carvedilol 12.5 mg tablet 12.5 mg PO BID 03/27/20 03/30/21 latanoprost 0.005 % eye drops drp ophthalmic (eye) 03/27/20 03/30/21 quetiapine 300 mg tablet 300 mg PO BEDTIME 03/27/20 03/30/21 simvastatin 20 mg tablet 20 mg PO BEDTIME 03/27/20 03/30/21 trazodone 100 mg tablet mg PO 03/27/20 03/30/21 sacubitril 49 mg-valsartan 51 mg 1 tab PO BID 01/04/21 03/30/21 tablet sennosides 8.6 mg capsule (senna) 17.2 mg PO DAILY 02/13/22 tramadol 50 mg tablet 50 mg PO BID PRN 04/15/22 Previous Rx's Medication Instructions Recorded bupropion HCl 75 mg tablet 150 mg PO BID 30 days #120 tabs 02/08/21 simethicone 180 mg capsule (Gas 180 mg PO BID 30 days #60 caps 10/20/21 Relief (simethicone)) linaclotide 145 mcg capsule 145 mcg PO QAM #30 caps 02/13/22 (Linzess) Ventolin HFA 90 mcg/actuation 2 inh inhalation Q6H PRN shortness 02/27/22 aerosol inhaler (albuterol sulfate) of breath or wheezing 30 days #18 grams peg 3350-electrolytes 236 240 ml PO Q10M 1 day #4,000 mL 02/28/22 gram-22.74 gram-6.74 gram-5.86 gram solution (Golytely) metoclopramide HCl 10 mg tablet 10 mg PO QID #90 tabs 03/08/22 dexlansoprazole 60 mg 60 mg PO DAILY #30 caps 03/29/22 capsule,biphase delayed release Trelegy Ellipta 200 mcg-62.5 1 inh inhalation DAILY 30 days #60 04/06/22 mcg-25 mcg powder for inhalation ea (hohcdexakkc-whfigsjrs-[id number]) ibuprofen 600 mg tablet 600 mg PO Q8H PRN pain 14 days #30 04/19/22 tabs cyclobenzaprine 5 mg tablet 5 mg PO TID PRN back pain 7 days 04/29/22 #21 tabs doxycycline hyclate 100 mg tablet 100 mg PO BID 7 days #14 tabs 04/29/22 Allergies Allergy/AdvReac Type Severity Reaction Status Date / Time No Known Allergies Allergy Verified 04/15/22 10:46 [No Known Allergies*] Review of Systems Constitutional: Constitutional: Reports no additional constitutional complaints, Denies chills, Denies fever(s) and Denies night sweats Eyes: Eyes: Reports no additional eye complaints, Denies blurry vision, Denies change in vision, Denies diplopia, Denies eye discharge, Denies loss of vision and Denies eye pain ENT: Denies dizziness and Reports nasal congestion Cardiovascular: Cardiovascular: Reports no additional cardiovascular complaints, Denies chest pain, Denies lightheadedness, Denies Loss of Consciousness and Denies dyspnea Respiratory: Respiratory: Reports no additional respiratory complaints and Denies dyspnea Gastrointestinal: Gastrointestinal: Reports no additional gastrointestinal complaints, Denies abdominal pain, Denies melena, Denies hematochezia, Denies change in bowel habits and Denies change in stool character Genitourinary: Genitourinary: Reports no additional male genitourinary complaints, Denies hematuria, Denies oliguria, Denies difficulty urinating, Denies dysuria, Denies urinary frequency, Denies urinary hesitancy, Denies urinary incontinence and Denies urinary urgency Musculoskeletal: Musculoskeletal: Reports no additional musculoskeletal complaints, Reports back pain, Denies numbness and Denies tingling Neurologic: Denies dizziness, Denies loss of vision, Denies numbness and Denies tingling Psychiatric: Psychiatric: Reports no additional psychiatric complaints Endocrine: Endocrine: Reports no additional endocrine complaints Hematologic/Lymphatic: Hematologic/Lymphatic: Reports no additional hematologic/lymphatic complaints Allergic/Immunologic: Allergic/Immunologic: Reports no additional allergic/immunologic complaints PMFSH Past Medical History Attestation statement: The following information was validated with the patient. Source: old records reviewed Medical History Constipation COPD (chronic obstructive pulmonary disease) COPD (chronic obstructive pulmonary disease) Dyspnea Hyperlipidemia Hypertension Personal history of nicotine dependence Pulmonary nodules Tubular adenoma of colon Surgical History History of appendectomy History of gastric surgery History of surgery on left wrist (~03/21/10) Hx of cataract surgery (~07/02/10) Hx of colonoscopy (~02/13/06) Hx of endoscopy Family History Family History Mother Renal failure Father History of depression Brother Colon cancer Social History Social History Alcohol intake: current Alcohol intake frequency: a few times a week Patient Tobacco Use Status: Current everyday Tobacco user Cigarette Packs Per Day: 0.5 Years Smoked: 51 (onset 14yo) Smoked in Last 30 Days: No Advance Directives: No Advance Directives Information Provided: Yes Current occupational status: unemployed Physical Exam ED Vital Signs: Vital Signs - 24 hr 04/29/22 08:34 Temperature 98.1 F Pulse Rate 80 Respiratory Rate 16 Blood Pressure 131/89 Pulse Oximetry 99 Oxygen Delivery Method Room Air BMI result Body Mass Index 23.6 Const General: cooperative, no acute distress, alert and awake Nutritional Appearance: well nourished Orientation/consciousness: patient oriented x3 Limitations: no limitations HENMT Head: Yes normal to inspection and Yes atraumatic Ears: hearing grossly normal bilaterally and external ears normal General nose exam: Normal external nose present, no nasal discharge noted and no epistaxis Face and sinus: Yes normal facial exam, No abrasion, No laceration and Yes sinus tenderness Mouth: Normal oral and palatal mucosa present, no drooling and no muffled voice Eyes General: appearance normal, both eyes and all related structures Periorbital: periorbital findings normal Eyelids: Yes eyelids normal Conjunctivae: conjunctivae normal Pupils: Equal, round and reactive pupils present EOM: EOMs intact bilaterally Neck Neck: Yes normal visual inspection, Yes full ROM and Yes no lymphadenopathy Chest Chest palpation & inspection: normal inspection of the chest Resp Effort & Inspection: normal respiratory effort and able to speak in complete sentences Auscultation: clear to auscultation bilaterally Cardio Rate: regular rate Rhythm: regular rhythm GI Inspection: Yes normal to inspection Neuro General: patient oriented x3 and moves all extremities Cranial nerves: Yes Equal, round and reactive pupils present Cognition (Neuro): normal cognition Motor exam (neuro): 5/5 motor strength present throughout Sensory Exam: Normal double simultaneous stimulation for sensation Coordination: [id number] test normal Extrem General: Yes normal to inspection, Yes full ROM and Yes capillary refill normal Psych Appearance: grossly normal Mental Status: mental status grossly normal Affect: normal affect Attitude: cooperative Thought process: Normal thought process present Thought content: Normal thought content present Insight: Good insight present (Psych) Medications Administered Discontinued Medications Generic Name Dose Route Start Last Admin Trade Name Freq PRN Reason Stop Dose Admin Cyclobenzaprine HCl 5 mg 04/29/22 11:11 04/29/22 11:39 Cyclobenzaprine Hcl 5 Mg Tablet PO 04/29/22 11:12 5 mg ONCE ONE Administration Medical Decision Making [facility] Narrative Medical decision making narrative: Patient is a 66 year old assigned male at with a history of CHF, HTN, a broken clavicle for which he is taking tramadol, and COPD presenting to the emergency department today with back pain and sinus pain. Patient's physical exam showed sinus pressure but was otherwise unremarkable. Patient's rapid COVID-19, RSV, and influenza tests were negative. Patient's chest x-ray showed no acute process. I explained my physical exam findings as well as all test results to the patient. I answered all questions asked by the patient. Patient received PO Flexeril which he stated helped his symptoms significantly. I stressed the importance of the patient taking his medication as prescribed. I stressed the importance of the patient following up with his primary care provider. I stressed the importance of the patient returning to the emergency department immediately if his symptoms were to worsen or if he were to develop any dizziness, shortness of breath, difficulty breathing, chest pain, blurry vision, loss of vision, nausea, vomiting, abdominal pain, fever, chills, back pain, or any other complaints. Patient verbalized agreement and understanding with this treatment plan and discharge. Medical Records Medical records reviewed: Yes I reviewed the patient's medical records. Lab Data Lab results reviewed: Yes I reviewed the patient's lab results. Labs: Lab Results 04/29/22 Range/Units 09:44 Influenza Type A (PCR) NEGATIVE (Negative) Influenza Type B (PCR) NEGATIVE (Negative) RSV RNA Qual (PCR) NEGATIVE (Negative) SARS-CoV-2 RNA (RT-PCR) NEGATIVE (Negative) Imaging Data Chest x-ray: Attestation: I personally reviewed and interpreted this imaging study as follows: My impression: No acute process. Radiologist's impression: EXAMINATION: XR CHEST CLINICAL INFORMATION: Congestion, back pain. COMPARISON: 11/11/2021 chest radiograph. TECHNIQUE: Frontal view of the chest was obtained. FINDINGS: No significant abnormality is noted involving the heart, lungs, mediastinum, bony thorax or soft tissues. XR/XR chest 1V IMPRESSION: No acute cardiopulmonary process. Dictated By: Kareem Arce MD Signed By: Electronically signed by Kareem Arce MD 04/29/22 0917 Discharge Plan Discharge Clinical Impression: Sinusitis, Mechanical back pain Patient Disposition: Home, Self-Care Instructions: Sinusitis (ED), Back Pain (ED) Additional Instructions: Follow up with your primary care provider. Return to the emergency department immediately if your symptoms worsen or if you develop any dizziness, shortness of breath, difficulty breathing, chest pain, blurry vision, loss of vision, nausea, vomiting, abdominal pain, fever, chills, back pain, or any other complaints. Tania un seguimiento con luevano proveedor de atenci?n primaria. Regrese a la evan de emergencias de inmediato si elen s?ntomas empeoran o si presenta mareos, dificultad para respirar, dolor de pecho, visi?n borrosa, p?rdida de la visi?n, n?useas, v?mitos, dolor abdominal, fiebre, escalofr?os, dolor de espalda o cualquier otras quejas. Prescriptions: New doxycycline hyclate 100 mg tablet 100 mg PO BID 7 Days Qty: 14 0RF cyclobenzaprine 5 mg tablet 5 mg PO TID PRN (Reason: back pain) 7 Days Qty: 21 0RF No Action simethicone [Gas Relief (simethicone)] 180 mg capsule 180 mg PO BID 30 Days Qty: 60 4RF Rx Instructions: after meals albuterol sulfate [Ventolin HFA] 90 mcg/actuation HFA aerosol inhaler 2 inh inhalation Q6H PRN (Reason: shortness of breath or wheezing) 30 Days Qty: 18 0RF metoclopramide HCl 10 mg tablet 10 mg PO QID Qty: 90 0RF dexlansoprazole 60 mg capsule,biphase delayed releas 60 mg PO DAILY Qty: 30 0RF Trelegy Ellipta 200-62.5-25 mcg blister with device 1 inh inhalation DAILY 30 Days Qty: 60 2RF ibuprofen 600 mg tablet 600 mg PO Q8H PRN (Reason: pain) 14 Days Qty: 30 0RF bupropion HCl 75 mg tablet 150 mg PO BID 30 Days Qty: 120 6RF carvedilol 12.5 mg tablet 12.5 mg PO BID trazodone 100 mg tablet PO quetiapine 300 mg tablet 300 mg PO BEDTIME simvastatin 20 mg tablet 20 mg PO BEDTIME latanoprost 0.005 % drops ophthalmic (eye) Entresto 49-51 mg tablet 1 tab PO BID senna 8.6 mg capsule 17.2 mg PO DAILY Linzess 145 mcg capsule 145 mcg PO QAM Qty: 30 6RF peg 3350-electrolytes [Golytely] 236-22.74-6.74 -5.86 gram recon soln 240 ml PO Q10M 1 Days Qty: 4000 0RF Rx Instructions: until fecal effluent is clear; do not exceed a total volume of 2,000 mL tramadol 50 mg tablet 50 mg PO BID PRN Interventions: ED Discharge Assessment Last Done: 04/29/22 11:49 Discharge Date/Time: 04/29/22 11:49
[2022-04-29 10:27] LABS: Influenza A PCR NEGATIVE (Negative); Influenza B PCR NEGATIVE (Negative); Resp Syncy Virus RNA Qual PCR NEGATIVE (Negative); SARS COV2 PCR INHOUSE NEGATIVE (Negative)
[2022-04-29] MEDS: Cyclobenzaprine HCl 5 MG TABLET PO (11:39)
--- NOTE | 2022-04-29 11:43 | PC.NURSE ---
patient assessed with use of medical scientific liaison . patient a/ox4 . perrla . lungs clear . heart rate regular at 72 beat per minute .reports pressure in sinuses . lungs clear throughout . . breathing even and unlabored . skin pink warm and dry . abdomen soft not tender . positive bowel sounds throughout . patient aware of plan of care .
--- NOTE | 2022-04-29 11:47 | PC.NURSE ---
Patient discharged with use of center medical specialist . patient medicated for 10 out of 10 back pain prior to discharge . patient a/ox4 . went over discharge instructions as ordered by provider . patient to return if symptoms worsen patient to follow up with primary care . patient has no questions at this time .
== END 2022-04-29 11:49 | disposition home or self-care (01) ==
PROVIDERS: Physician Assistant Medical; Emergency Provider Emergency Medicine; PCP Internal Medicine
DX: M54.50 Low back pain, unspecified (principal); J32.9 Chronic sinusitis, unspecified; I10 Essential (primary) hypertension; E78.5 Hyperlipidemia, unspecified; F17.200 Nicotine dependence, unspecified, uncomplicated; Z79.02 Long term (current) use of antithrombotics/antiplatelets; Z79.899 Other long term (current) drug therapy; Z20.822 Contact with and (suspected) exposure to COVID-19
CPT/HCPCS: 0241U; 71045; 99283; 99284

== ENCOUNTER 2022-05-05 09:03 | Inpatient (IN) | payer MEDICARE, MEDICAID, SELFPAY ==
[2022-05-05] VITALS (10 sets, daily range): BP systolic 103–136; BP diastolic 67–96; PULSE 88–116; RESP 15–23; TEMP 35.9–36.9; O2SAT 94–98; BMI 21.4
--- NOTE | ~2022-05-05 | CT_ITS ---
EXAMINATION: CT ANGIOGRAM OF THE CHEST WITH AND WITHOUT CONTRAST (CT PULMONARY ANGIOGRAM FOR PE) CLINICAL INFORMATION: Reason for Exam elevated d-dimer. sob. new onset a fib COMPARISON: April 05, 2022 TECHNIQUE: Prior to contrast administration, noncontrast localization images were obtained. Subsequently, multidetector volumetric imaging was performed from the thoracic inlet to below the diaphragms following the administration of 65 mL Omnipaque 350 intravenous contrast. No contrast reaction reported Sagittal, coronal, and MIP oblique sagittal reformatted images were obtained on the CT workstation, uploaded to PACS, and reviewed. This CT examination was performed using dose optimization techniques as appropriate, variously including the following: *Automated exposure control *Adjustment of mA and/or kV according to patient size (this includes techniques or standardized protocols for targeted exams where dose is matched to indication/reason for exam; i.e. extremities or head) *Use of iterative reconstruction technique Total exam dose-length product 253 mGy-cm FINDINGS: There is breathing artifact present. QUALITY OF STUDY/CONTRAST BOLUS: Satisfactory. PULMONARY ARTERIES: No central or segmental pulmonary emboli. THORACIC AORTA: The ascending thoracic aorta measures up to 4.5 cm in diameter. No dissection of the thoracic aorta is identified. LUNG: There are severe changes of centrilobular and paraseptal emphysema present. Central airways are patent. There is some bibasilar dependent atelectasis seen with no region of confluent disease appreciated. No bronchiectasis is seen. There is again noted to be irregular shaped lung density within the right lower lobe adjacent to the hemidiaphragm. This measures approximately 1.4 x 1.2 cm in size. Calcified granulomas are present. There are scattered sub-4 mm densities seen. PLEURA: There is apical pleural-parenchymal scarring present bilaterally left greater than right. No pleural effusion is seen. MEDIASTINUM: Heart normal size. Coronary artery calcification is present. No significant thyroid gland abnormality is appreciated. No pericardial effusion. No mediastinal or hilar lymphadenopathy is appreciated. No evidence of septal bowing. There is reflux of contrast into the inferior vena cava and hepatic veins consistent with elevated right heart pressures. CHEST WALL/AXILLA: No axillary or internal mammary lymphadenopathy. OSSEOUS STRUCTURES: No acute or suspicious osseous abnormality. Multilevel degenerative disc disease is present. UPPER ABDOMEN: Unremarkable. There is reflux of contrast into the hepatic veins suggesting elevated right heart pressures. CT/CT angio chest PE protocol IMPRESSION: Severe changes of centrilobular and paraseptal emphysema. Enlarged ascending thoracic aorta measuring up to 4.5 cm in diameter. No significant change in right base density. Old granulomatous disease. Findings consistent with elevated right heart pressures. VTE: negative
--- NOTE | 2022-05-05 09:28 | ED_ITS ---
HPI - General Adult General Chief complaint: Dyspnea Stated complaint: return from last week. back pain, sob Time Seen by Provider: 05/05/22 09:24 Source: patient Mode of arrival: ambulatory History of Present Illness HPI narrative: 66-year-old male with a past medical history of COPD, HLD, HTN, recently seen and evaluated in our ED diagnosed with sinusitis and MSK back pain presenting to the ED complaining of continued back pain and SOB. States SOB is waking him up at night. Reports back pain is intermittent, denies recent trauma, fall or injury. Has been compliant with previously prescribed doxycycline and Flexeril. Denies chest pain, recent travel, pedal edema, history of clots, urinary incontinence/retention, abdominal pain, hematuria/flank pain Onset (ago): day(s) Related Data Home Medications Medication Instructions Recorded Confirmed carvedilol 12.5 mg tablet 12.5 mg PO BID 03/27/20 05/05/22 latanoprost 0.005 % eye drops 1 drp ophthalmic (eye) BEDTIME 03/27/20 05/05/22 quetiapine 300 mg tablet 300 mg PO BEDTIME 03/27/20 05/05/22 simvastatin 20 mg tablet 20 mg PO BEDTIME 03/27/20 05/05/22 trazodone 100 mg tablet 100 - 200 mg PO BEDTIME PRN Sleep 03/27/20 05/05/22 sacubitril 49 mg-valsartan 51 mg 1 tab PO BID 01/04/21 05/05/22 tablet sennosides 8.6 mg capsule (senna) 17.2 mg PO DAILY 02/13/22 05/05/22 linaclotide 145 mcg capsule 145 mcg PO DAILY 05/05/22 05/05/22 (Linzess) metoclopramide HCl 10 mg tablet 10 mg PO TIDAC 05/05/22 05/05/22 Previous Rx's Medication Instructions Recorded Ventolin HFA 90 mcg/actuation 2 inh inhalation Q6H PRN shortness 02/27/22 aerosol inhaler (albuterol sulfate) of breath or wheezing 30 days #18 grams Trelegy Ellipta 200 mcg-62.5 1 inh inhalation DAILY 30 days #60 04/06/22 mcg-25 mcg powder for inhalation ea (zoplhfpyftd-jnqjzvcps-ekbumgii) ibuprofen 600 mg tablet 600 mg PO Q8H PRN pain 14 days #30 04/19/22 tabs cyclobenzaprine 5 mg tablet 5 mg PO TID PRN back pain 7 days 04/29/22 #21 tabs dexlansoprazole 60 mg 60 mg PO DAILY #90 caps 05/01/22 capsule,biphase delayed release Allergies Allergy/AdvReac Type Severity Reaction Status Date / Time No Known Allergies Allergy Verified 04/15/22 10:46 [No Known Allergies*] Review of Systems Review of Systems: Constitutional: No Fever, No Chills, No Fatigue, No Malaise ENT/Mouth: No Hearing loss, No Ear Pain, No Nasal Congestion, No sore throat, No Rhinorrhea, No Swallowing Difficulty Eyes: No Eye Pain, No Swelling, No Redness, No Vision Changes Cardiovascular: No Chest Pain, + SOB, No Dyspnea on Exertion, + Orthopnea, No Edema, No Palpitations Respiratory: No Cough, No Sputum, No Dyspnea Gastrointestinal: No Nausea, No Vomiting, No Diarrhea, No Constipation, No Abdominal pain Genitourinary: No irregular bleeding, No Dysuria, No Urinary Frequency, No Hematuria, No Urinary Incontinence/retention, No Urgency, No Flank Pain Musculoskeletal: + joint pain, No Myalgias, No Joint Swelling Skin: No Skin Lesions, No rash Neuro: No Weakness, No Numbness, No Paresthesias, No Dizziness, No Headache Yes all other systems are reviewed and are negative Constitutional: Constitutional: Reports as per HPI Neurologic: Denies Sensory deficit (Neuro) [facility] Past Medical History Attestation statement: The following information was validated with the patient. Medical History Constipation COPD (chronic obstructive pulmonary disease) COPD (chronic obstructive pulmonary disease) Dyspnea Hyperlipidemia Hypertension Personal history of nicotine dependence Pulmonary nodules Tubular adenoma of colon Surgical History History of appendectomy History of gastric surgery History of surgery on left wrist (~03/21/10) Hx of cataract surgery (~07/02/10) Hx of colonoscopy (~02/13/06) Hx of endoscopy Family History Family History Mother Renal failure Father History of depression Brother Colon cancer Social History Social History Alcohol intake: current Alcohol intake frequency: holidays/special occasions only Patient Tobacco Use Status: Current everyday Tobacco user Cigarette Packs Per Day: 0.5 Years Smoked: 51 (onset 14yo) Smoked in Last 30 Days: No Use of substances other than those prescribed or required for medical reasons: No Advance Directives: No Advance Directives Information Provided: No Current occupational status: unemployed Physical Exam ED Vital Signs: Vital Signs - 24 hr 05/05/22 09:05 05/05/22 09:35 05/05/22 10:18 Temperature 96.6 F L Pulse Rate 116 H 88 107 H Respiratory Rate 16 20 Blood Pressure 110/67 124/83 Pulse Oximetry 98 94 97 Oxygen Delivery Method Room Air Room Air 05/05/22 10:47 Temperature Pulse Rate 97 Respiratory Rate 15 Blood Pressure 117/84 Pulse Oximetry Oxygen Delivery Method BMI result Body Mass Index 21.4 Const General: cooperative, healthy appearing and no acute distress Orientation/consciousness: patient oriented x3 Limitations: no limitations HENMT Head: Yes normal to inspection and Yes atraumatic Ears: hearing grossly normal bilaterally General nose exam: Normal external nose present Face and sinus: Yes normal facial exam Eyes General: appearance normal, both eyes and all related structures EOM: EOMs intact bilaterally Neck Other: No midline cervical spinous tenderness Neck: Yes normal visual inspection and Yes no meningeal signs Chest Chest palpation & inspection: normal inspection of the chest and no crepitus Resp Effort & Inspection: normal respiratory effort and no respiratory distress Auscultation: clear to auscultation bilaterally, no crackles, no rales, no rhonchi and no wheezes Cardio Rate: regular rate Heart sounds: S1 normal heart sound present and S2 normal heart sound present GI Inspection: Yes normal to inspection Palpation (GI): Soft to palpation, nontender, no guarding and not rigid General: Yes no CVA tenderness Back/Spine/Pelvis Other: No midline thoracic/lumbar spinous tenderness/step-off or deformity. Back pain not reproducible on exam Back: no CVA tenderness Skin Rashes: no rashes Wounds: no wounds Neuro Other: Strength intact throughout. No saddle anesthesia. Sensation intact to light touch. Neurovascular intact distally General: patient oriented x3, gait normal, tone normal, moves all extremities, no meningeal signs and no focal motor deficits Gait exam (Neuro): Normal gait present Motor exam (neuro): 5/5 motor strength present throughout Sensory Exam: No Sensory deficit (Neuro) Extrem General: Yes normal to inspection Course Course Course Narrative: -1010--EKG patient noted to be in rapid AFib at a rate of 118, new onset. > will give 10 mg of IV Cardizem >>[id number] Score= 2 , recommending anticoagulation 1043--heart rate improved to 90-104 after 10 mg of IV Cardizem. Mild leukocytosis to 4.3. D-dimer elevated at 329 > will obtain CTA to rule out PE -labs otherwise reassuring. Troponin negative. BNP mildly elevated to 177 -patient's heart rate elevated again in 117-122 > additional 10 mg of IV Cardizem ordered 1351--CT angio chest PE protocol IMPRESSION: Severe changes of centrilobular and paraseptal emphysema. ? Enlarged ascending thoracic aorta measuring up to 4.5 cm in diameter. ? No significant change in right base density. ? Old granulomatous disease. ? Findings consistent with elevated right heart pressures. ? VTE: negative > plan for admission Medications Administered Discontinued Medications Generic Name Dose Route Start Last Admin Trade Name Freq PRN Reason Stop Dose Admin Diltiazem HCl 10 mg 05/05/22 10:21 05/05/22 10:23 Diltiazem Hcl 50 Mg/10 Ml Vial IVPUSH 05/05/22 10:22 10 mg STAT STA Administration Iohexol 65 ml 05/05/22 11:06 05/05/22 11:06 Iohexol 350 Mg/Ml 75 Ml Infus..Btl IV 05/05/22 11:07 65 ml ONCE ONE Administration Medical Decision Making [facility] Narrative Medical decision making narrative: 66-year-old male with a past medical history of COPD, HLD, HTN, recently seen and evaluated in our ED diagnosed with sinusitis and MSK back pain presenting to the ED complaining of continued back pain and SOB. On exam tachycardic, NAD, nontoxic appearing, no midline spinous tenderness through or red flag symptoms. Lungs CTA. No pedal edema. Concern for PE vs CHF vs ?PNA vs MSK back pain. Lower suspicion for ACS. Low concern for cauda equina/cord compression for a lower suspicion for renal stone/pyelo Plan: EKG, labs, UA, COVID-19/influenza/RSV testing Medical Records Medical records reviewed: Yes I reviewed the patient's medical records. Lab Data Lab results reviewed: Yes I reviewed the patient's lab results. Result diagrams: 05/05/22 10:05 05/05/22 10:05 Labs: Lab Results 05/05/22 05/05/22 05/05/22 Range/Units 10:05 10:05 10:05 WBC 4.3 L (4.8-10.8) X10*3/uL RBC 4.75 (4.60-5.80) X10*6/uL Hgb 14.1 (14.0-18.0) g/dl Hct 42.5 (42.0-52.0) % MCV 89.5 (80.0-98.0) fL MCH 29.7 (27.0-33.0) pg MCHC 33.2 (31.0-36.0) g/dl RDW 13.5 (11.0-16.0) % Plt Count 173 (160-400) X10*3/uL MPV 9.6 (9.4-12.4) fL Immature Gran % (Auto) 0.2 (0.0-0.4) % Neut % (Auto) 63.6 (45-73) % Lymph % (Auto) 26.6 (20-40) % [place] % (Auto) 8.2 (2-11) % Eos % (Auto) 0.9 (0-4) % Baso % (Auto) 0.5 (0-2) % Lymph # (Auto) 1.1 L (1.2-4.9) X10*3/uL [place] # (Auto) 0.4 (0.1-1.2) X10*3/uL Eos # (Auto) 0.0 (0.0-0.4) X10*3/uL Baso # (Auto) 0.0 (0.0-0.2) X10*3/uL Abs Immat Gran (auto) 0.01 (0.00-0.03) X10*3/uL Absolute Neuts (auto) 2.7 (2.0-8.3) x10*3/uL Absolute Nucleated RBC 0.000 (0.0-0.012) X10*3/uL Nucleated RBC % (auto) 0.0 (0.0-0.2) /100WBC PT 12.6 (10.0-13.1) SEC INR 1.1 (0.9-1.1) D-Dimer High Sensitivty 329 NG/ML Sodium 140 (135-145) mmol/L Potassium 4.2 (3.3-5.1) mmol/L Chloride 108 (96-108) mmol/L Carbon Dioxide 22 (22-29) mmol/L Anion Gap 14 (12-20) BUN 21 H (9-16) mg/dL Creatinine 0.98 (0.5-1.4) mg/dL Estim Creat Clear Calc 68.0 Estimated GFR > 60 Random Glucose 112 (60-115) mg/dL Calcium 8.5 (8.4-10.2) mg/dL Magnesium 1.9 (1.6-2.6) mg/dL Total Bilirubin 1.0 (0.0-1.0) mg/dL Direct Bilirubin 0.4 (0.0-0.5) mg/dL AST 12 D (5-37) U/L ALT 9 (0-40) U/L Alkaline Phosphatase 113 D (39-117) U/L Troponin I High Sens (<3.5-35.0) ng/L B-Natriuretic Peptide (<100) pg/mL Total Protein 6.7 (6.5-8.0) g/dL Albumin 3.6 (3.5-5.0) g/dL Influenza Type A (PCR) (Negative) Influenza Type B (PCR) (Negative) RSV RNA Qual (PCR) (Negative) SARS-CoV-2 RNA (RT-PCR) (Negative) 05/05/22 05/05/22 05/05/22 Range/Units 10:05 10:05 10:05 WBC (4.8-10.8) X10*3/uL RBC (4.60-5.80) X10*6/uL Hgb (14.0-18.0) g/dl Hct (42.0-52.0) % MCV (80.0-98.0) fL MCH (27.0-33.0) pg MCHC (31.0-36.0) g/dl RDW (11.0-16.0) % Plt Count (160-400) X10*3/uL MPV (9.4-12.4) fL Immature Gran % (Auto) (0.0-0.4) % Neut % (Auto) (45-73) % Lymph % (Auto) (20-40) % [place] % (Auto) (2-11) % Eos % (Auto) (0-4) % Baso % (Auto) (0-2) % Lymph # (Auto) (1.2-4.9) X10*3/uL [place] # (Auto) (0.1-1.2) X10*3/uL Eos # (Auto) (0.0-0.4) X10*3/uL Baso # (Auto) (0.0-0.2) X10*3/uL Abs Immat Gran (auto) (0.00-0.03) X10*3/uL Absolute Neuts (auto) (2.0-8.3) x10*3/uL Absolute Nucleated RBC (0.0-0.012) X10*3/uL Nucleated RBC % (auto) (0.0-0.2) /100WBC PT (10.0-13.1) SEC INR (0.9-1.1) D-Dimer High Sensitivty NG/ML Sodium (135-145) mmol/L Potassium (3.3-5.1) mmol/L Chloride (96-108) mmol/L Carbon Dioxide (22-29) mmol/L Anion Gap (12-20) BUN (9-16) mg/dL Creatinine (0.5-1.4) mg/dL Estim Creat Clear Calc Estimated GFR Random Glucose (60-115) mg/dL Calcium (8.4-10.2) mg/dL Magnesium (1.6-2.6) mg/dL Total Bilirubin (0.0-1.0) mg/dL Direct Bilirubin (0.0-0.5) mg/dL AST (5-37) U/L ALT (0-40) U/L Alkaline Phosphatase (39-117) U/L Troponin I High Sens < 3.5 (<3.5-35.0) ng/L B-Natriuretic Peptide 177 H (<100) pg/mL Total Protein (6.5-8.0) g/dL Albumin (3.5-5.0) g/dL Influenza Type A (PCR) NEGATIVE (Negative) Influenza Type B (PCR) NEGATIVE (Negative) RSV RNA Qual (PCR) NEGATIVE (Negative) SARS-CoV-2 RNA (RT-PCR) NEGATIVE (Negative) ECG Data Attestation: I personally reviewed and interpreted this ECG as follows: Interpretation: EKG AFib with RVR at a rate of 118. QRS 80. QTC 493. No STEMI Critical Care Time Critical Care Time Critical Care Time: Yes Total Critical Care Time: 40 Attestation: I have personally provided critical care time exclusive of time spent on separa tely billable procedures. Time includes review of lab data, radiology results, discussion with consultants, and monitoring for potential decompensation. Intervention performed as documented. Discharge Plan Discharge Clinical Impression: Atrial fibrillation with rapid ventricular response Patient Disposition: Admitted As Inpatient
--- NOTE | 2022-05-05 09:40 | ECG_ITS ---
Test Reason : SOB Blood Pressure : / mmHG Vent. Rate : 118 BPM Atrial Rate : 000 BPM P-R Int : 000 ms QRS Dur : 080 ms QT Int : 352 ms P-R-T Axes : 000 050 251 degrees QTc Int : 493 ms Atrial fibrillation with rapid ventricular response Nonspecific ST and T wave abnormality Abnormal ECG Heart rate has increased Premature ventricular complexes is no longer Present Referred By: Elba Roldan Electronically Signed By:MAYUR ADAMS MD
[2022-05-05 10:10] LABS: Basophils Percent Auto 0.5 % (0-2); Eosinophils Percent Auto 0.9 % (0-4); Hematocrit 42.5 % (42.0-52.0); Hemoglobin 14.1 g/dl (14.0-18.0); Imm Gran Abs Auto 0.01 X10*3/uL (0.00-0.03); Imm Gran Pct Auto 0.2 % (0.0-0.4); Lymphocytes Absolute Auto 1.1 X10*3/uL (1.2-4.9); Lymphocytes Percent Auto 26.6 % (20-40); MANUAL DIFF FLAG NO; Mean Corpuscular HGB Conc 33.2 g/dl (31.0-36.0); Mean Corpuscular Hemoglobin 29.7 pg (27.0-33.0); Mean Corpuscular Volume 89.5 fL (80.0-98.0); Mean Platelet Volume 9.6 fL (9.4-12.4); Monocytes Absolute Auto 0.4 X10*3/uL (0.1-1.2); Monocytes Percent Auto 8.2 % (2-11); Neutrophils Absolute Auto 2.7 x10*3/uL (2.0-8.3); Neutrophils Percent Auto 63.6 % (45-73); Platelet Count 173 X10*3/uL (160-400); Red Blood Count 4.75 X10*6/uL (4.60-5.80); Red Cell Distribution Width 13.5 % (11.0-16.0); White Blood Count 4.3 X10*3/uL (4.8-10.8)
[2022-05-05 10:16] LABS: INTERNATIONAL NORM RATIO 1.1 (0.9-1.1); Prothrombin Time 12.6 SEC (10.0-13.1)
[2022-05-05 10:18] LABS: D Dimer High Sensitivity 329 NG/ML
[2022-05-05] MEDS: dilTIAZem HCL 50 MG/10 ML VIAL 10 MG IVPUSH ×2 (10:23→14:04)
[2022-05-05 10:28] LABS: Alanine Aminotransferase 9 U/L (0-40); Albumin Level 3.6 g/dL (3.5-5.0); Alkaline Phosphatase 113 U/L (39-117); Anion Gap 14 (12-20); Aspartate Amino Transferase 12 U/L (5-37); Bilirubin Direct 0.4 mg/dL (0.0-0.5); Blood Urea Nitrogen 21 mg/dL (9-16); Calcium 8.5 mg/dL (8.4-10.2); Carbon Dioxide 22 mmol/L (22-29); Chloride 108 mmol/L (96-108); Estimated Glomerular Filt Rate > 60; Glucose Random 112 mg/dL (60-115); Magnesium 1.9 mg/dL (1.6-2.6); Potassium 4.2 mmol/L (3.3-5.1); Sodium 140 mmol/L (135-145); Total Protein 6.7 g/dL (6.5-8.0)
[2022-05-05 10:31] LABS: B Type Natriuretic Peptide 177 pg/mL (<100)
[2022-05-05 10:43] LABS: Troponin-I High Sensitivity < 3.5 ng/L (<3.5-35.0)
[2022-05-05 10:54] LABS: Influenza A PCR NEGATIVE (Negative); Influenza B PCR NEGATIVE (Negative); Resp Syncy Virus RNA Qual PCR NEGATIVE (Negative); SARS COV2 PCR INHOUSE NEGATIVE (Negative)
[2022-05-05] MEDS: iohexoL 350 MG/ML 75 ML INFUS..BTL 65 ML IV (11:06)
--- NOTE | 2022-05-05 11:54 | PHA.MEDREC ---
Pharmacy Consult ? Medication Reconciliation Pharmacy has completed the medication reconciliation. Spoke with patient via financial analyst intern. patient just finished doxycycline.
[2022-05-05] MEDS: Cyclobenzaprine HCl 10 MG TABLET PO (14:04)
--- NOTE | 2022-05-05 15:00 | PC.NURSE ---
patient assessed with use of full time staff interpreter . patient primarily Romanian speaking only . patient a/ox4 . heart rate irregular at 98-102 beats per minute . no c/o of chest pain or dizziness . lungs clear through out , breathing even and unlabored . skin is pink warm and dry . abdomen is soft . positive bowel sound in all four quadrants . patient reports back pain 10 out of 10 pain level , obtained order for PRN and administered as ordered. patient aware he is getting admitted for new onset AFFIb . patient aware of plan of care .
--- NOTE | 2022-05-05 15:51 | PM.EVENT ---
Event Note Date of Service: 05/06/22 Event Note: Addendum to history and physical by mid-level provider, HANNAH Jimenez I interviewed and examined the patient. I discussed their presentation and management with the mid-level provider. I reviewed the history and physical and agree with the documentation, with the following additions and corrections: 66yo M with COPD, pulm nodules, HTN, HFrEF [seen by Dr Francis] presenting with 6d of back pain + worsening dyspnea, found to be in new-onset AF with RVR. Given IV diltiazem, ventricular rate now 90s. Plan admit to [facility], check TTE, consult Cardiology, increase carvedilol dose + prn metoprolol IV, start AC with apixaban
--- NOTE | 2022-05-05 16:00 | PM.IMHP ---
History of Present Illness Date of Service: 05/05/22 Attending physician on admission: Leia Edge Chief Complaint: sob 66-year-old male with history of chronic systolic heart failure, hypertension, erosive esophagitis, GERD, depression, COPD, hyperlipidemia, chronic constipation, history of peptic ulcer disease in 2018 without any recurrent GI bleeding, who is a former smoker presented to the ED for ongoing back pain as well as shortness of breath. He states he has had increased shortness of breath that comes on randomly regardless of activity or rest. No consistent orthopnea or PND. No associated CP, palpitations, lightheadedness, fevers, chills, recent illness. No abdominal pain, nausea, vomiting, melena, hematochezia. No leukocytosis, no anemia. Creatinine in 0.98, BUN 21, electrolytes normal. Troponin negative, BNP 177. CXR from 04/29 is without any acute cardiopulmonary process. CTA chest showing severe centrilobular and paraseptal emphysema with ascending thoracic aorta dilatation 4.5 cm in diameter. Negative for PE. Findings consistent with elevated right heart pressures. Patient does follow externally with Dr. Francis cardiology. On arrival pt found tachycardic to 116 with EKG showing AFibw ith RVR, rate 118, no LEONOR, QTc 493. Pt given 10mg IV cardizem with brief improvement in HR and additional dose 10mg cardizem with improvement to 90s. Pt does endorse alcohol abuse. Only drinks 1-2 times weekly, but drinks in excess when he does. NO etoh in the last week due to abx use. No illicit substances. Former cigarette smoker with 53+ pack year history, quit 2 months ago. Pt to be admitted for new onset afib with rvr. Review of Systems Review of Systems: General: No fevers, malaise, unintentional weight loss Cardiovascular: No chest pain, palpitations, or leg edema Respiratory: +shortness of breath. + wheezing, cough GI: No abdominal pain, nausea, vomiting, diarrhea, constipation, melena, hematochezia : No dysuria, hematuria, increased urinary frequency, decreased urinary output MSK: +back pain. No myalgia Neuro: No headaches, weakness, paresthesias Skin: No rashes or lesions [facility] Medical History Constipation COPD (chronic obstructive pulmonary disease) COPD (chronic obstructive pulmonary disease) Dyspnea Hyperlipidemia Hypertension Personal history of nicotine dependence Pulmonary nodules Tubular adenoma of colon Family History Mother Renal failure Father History of depression Brother Colon cancer Surgical History History of appendectomy History of gastric surgery History of surgery on left wrist (~03/21/10) Hx of cataract surgery (~07/02/10) Hx of colonoscopy (~02/13/06) Hx of endoscopy Social History Alcohol intake: current Alcohol intake frequency: holidays/special occasions only Patient Tobacco Use Status: Current everyday Tobacco user Cigarette Packs Per Day: 0.5 Years Smoked: 51 (onset 14yo) Smoked in Last 30 Days: No Use of substances other than those prescribed or required for medical reasons: No Advance Directives: No Advance Directives Information Provided: No Current occupational status: unemployed Meds Allergies Allergy/AdvReac Type Severity Reaction Status Date / Time No Known Allergies Allergy Verified 04/15/22 10:46 [No Known Allergies*] Active Medications: Current Medications Acetaminophen (Acetaminophen 325 Mg Tablet) 650 mg PO Q6H PRN PRN Reason: Pain, Mild (Pain Scale 1-3) Carvedilol (Carvedilol 25 Mg Tablet) 25 mg PO BID YESSENIA; Protocol Hydromorphone HCl (Hydromorphone Hcl 0.5 Mg/0.5 Ml Syringe) 0.25 mg IVPUSH Q4H PRN; Protocol PRN Reason: Pain, Severe (Pain Scale 7-10) Metoprolol Tartrate (Metoprolol Tartrate 5 Mg/5 Ml Vial) 5 mg IVPUSH Q6H PRN PRN Reason: HR >110 Ondansetron HCl (Ondansetron Hcl 4 Mg/2 Ml Vial) 4 mg IVPUSH Q8H PRN PRN Reason: Nausea and Vomiting Oxycodone HCl (Oxycodone Hcl Immed Release 5 Mg Tablet) 5 mg PO Q6H PRN PRN Reason: Pain, Moderate (Pain Scale 4-6 Pharmacy Consult (Consult Rx Perform Med Rec) 1 each MISCELLANE ONCE PRN PRN Reason: Consult order Senna (Sennosides 8.6 Mg Tablet) 17.2 mg PO BEDTIME PRN PRN Reason: Constipation Sodium Chloride (0.9 % Sodium Chloride Flush 3 Ml Syringe) 3 ml IVFLUSH QSHIFT [facility] Home Medications Medication Instructions Recorded Confirmed Last Taken Type carvedilol 12.5 mg tablet 12.5 mg PO BID 03/27/20 05/05/22 Unknown History latanoprost 0.005 % eye drops 1 drp ophthalmic (eye) BEDTIME 03/27/20 05/05/22 Unknown History quetiapine 300 mg tablet 300 mg PO BEDTIME 03/27/20 05/05/22 Unknown History simvastatin 20 mg tablet 20 mg PO BEDTIME 03/27/20 05/05/22 Unknown History trazodone 100 mg tablet 100 - 200 mg PO BEDTIME PRN Sleep 03/27/20 05/05/22 Unknown History sacubitril 49 mg-valsartan 51 mg 1 tab PO BID 01/04/21 05/05/22 Unknown History tablet sennosides 8.6 mg capsule (senna) 17.2 mg PO DAILY 02/13/22 05/05/22 Unknown History linaclotide 145 mcg capsule 145 mcg PO DAILY 05/05/22 05/05/22 Unknown History (Linzess) metoclopramide HCl 10 mg tablet 10 mg PO TIDAC 05/05/22 05/05/22 Unknown History Physical Exam Vital Signs and Narrative: Vital Signs: Last Vital Signs Temp 98.0 F 05/05/22 14:05 Pulse 94 05/05/22 14:39 Resp 18 05/05/22 14:39 BP 120/82 05/05/22 14:39 Pulse Ox 95 05/05/22 14:39 O2 Del Method 05/05/22 14:39 BMI result Body Mass Index 21.4 Constitutional - Awake and Alert, No apparent distress Eyes - PERRLA, EOMI Cardiovascular - S1S2, tachycardic irregularly irregular, No edema Respiratory - Normal lung expansion, Normal respiratory effort, No respiratory distress, CTA bilaterally Gastrointestinal - NT / ND; +BS; No rebound or guarding Extremities - no calf tenderness bilaterally, no swelling Skin - Warm/Dry Neurological - Alert & oriented x3, CN II-XII in tact, 5/5 strength BUE and BLE Psychological - Appropriate affect Results Labs CBC and Chem 7: 05/05/22 10:05 05/05/22 10:05 Labs: Laboratory Results - last 24 hr 05/05/22 05/05/22 05/05/22 10:05 10:05 10:05 MCV 89.5 MCH 29.7 MCHC 33.2 RDW 13.5 Plt Count 173 MPV 9.6 Immature Gran % (Auto) 0.2 Neut % (Auto) 63.6 Lymph % (Auto) 26.6 [place] % (Auto) 8.2 Eos % (Auto) 0.9 Baso % (Auto) 0.5 Lymph # (Auto) 1.1 L [place] # (Auto) 0.4 Eos # (Auto) 0.0 Baso # (Auto) 0.0 Abs Immat Gran (auto) 0.01 Absolute Neuts (auto) 2.7 Absolute Nucleated RBC 0.000 Nucleated RBC % (auto) 0.0 PT 12.6 INR 1.1 D-Dimer High Sensitivty 329 Anion Gap 14 Estim Creat Clear Calc 68.0 Estimated GFR > 60 Random Glucose 112 Calcium 8.5 Magnesium 1.9 Total Bilirubin 1.0 Direct Bilirubin 0.4 AST 12 D ALT 9 Alkaline Phosphatase 113 D Troponin I High Sens B-Natriuretic Peptide Total Protein 6.7 Albumin 3.6 Influenza Type A (PCR) Influenza Type B (PCR) RSV RNA Qual (PCR) SARS-CoV-2 RNA (RT-PCR) 05/05/22 05/05/22 05/05/22 10:05 10:05 10:05 MCV MCH MCHC RDW Plt Count MPV Immature Gran % (Auto) Neut % (Auto) Lymph % (Auto) [place] % (Auto) Eos % (Auto) Baso % (Auto) Lymph # (Auto) [place] # (Auto) Eos # (Auto) Baso # (Auto) Abs Immat Gran (auto) Absolute Neuts (auto) Absolute Nucleated RBC Nucleated RBC % (auto) PT INR D-Dimer High Sensitivty Anion Gap Estim Creat Clear Calc Estimated GFR Random Glucose Calcium Magnesium Total Bilirubin Direct Bilirubin AST ALT Alkaline Phosphatase Troponin I High Sens < 3.5 B-Natriuretic Peptide 177 H Total Protein Albumin Influenza Type A (PCR) NEGATIVE Influenza Type B (PCR) NEGATIVE RSV RNA Qual (PCR) NEGATIVE SARS-CoV-2 RNA (RT-PCR) NEGATIVE Imaging Radiologist's Impressions: Impressions Chest CTA 05/05/22 11:25 IMPRESSION: Severe changes of centrilobular and paraseptal emphysema. Enlarged ascending thoracic aorta measuring up to 4.5 cm in diameter. No significant change in right base density. Old granulomatous disease. Findings consistent with elevated right heart pressures. VTE: negative Assessment and Plan (1) Atrial fibrillation with rapid ventricular response: Status: Acute Plan 66-year-old male with history of chronic systolic heart failure, hypertension, erosive esophagitis, GERD, depression, COPD, hyperlipidemia, chronic constipation, history of peptic ulcer disease in 2018 without any recurrent GI bleeding, who is a former smoker with 53+ pack year history admitted for new onset Afib with RVR. #New onset Afib with RVR -EKG showing Afib with RVR, rate 118, with prolonged qtc 493 -Symptomatic with random episodes sob -Mag normal, TSH pending -Admit to telemetry -Increase home carvedilol to 25mg BID -Metoprolol 5mg IV prn for HR >110 -Echocardiogram ordered -Cardiac diet -Eliquis 5mg BID for anticoagulation. Educated on increased risk of bleeding. Hx PUD 2018, no recent GI bleeding on ppi, no hx intracranial bleed. No history bleeding disorders -Cardiology consulted -follow CBC and monitor for bleeding #Chronic systolic HF- stable -Patient euvolemic. CXR with evidence of elevated right heart pressures, no fluid overload -Continue carvedilol, entresto -Cardiac diet -echo pending #Acute low back pain -Continue cyclobenzaprine -Pain medication on pain scale -Outpt follow up with pcp #COPD- without acute exacerbation -Continue maintenance inhalers -albuterol p.r.n. # chronic constipation -continue Linzess and senna # HLD -continue statin # depression/insomnia -continue home meds DVT prophylaxis-initiate Eliquis Full code Patient requires inpatient stay of at least 2 midnights for management of new onset atrial fibrillation requiring IV rate control with transition to p.o. as well as initiation of anticoagulation requiring monitoring for bleeding as well as expert consultation and further cardiac monitoring of arrhythmia Quality Stroke Does the patient have a stroke diagnosis?: No VTE Prior VTE?: No VTE Risk Level:: Medical - moderate - high VTE Device Contraindication: Treatment Not Indicated VTE Drug Contraindication: N/A - Med Ordered
[2022-05-05] MEDS: Metoclopramide HCl 10 MG TABLET PO (16:31)
[2022-05-05] MEDS: 0.9 % Sodium Chloride Flush 3 ML SYRINGE IVFLUSH ×2 (16:31→23:34)
[2022-05-05 17:16] LABS: TSH reflex Free T4 0.58 uIU/mL (0.32-4.0)
--- NOTE | 2022-05-05 18:21 | PC.NURSE ---
pt is going back to [facility] at [facility]
[2022-05-05] MEDS: carvediloL 25 MG TABLET PO (20:59)
[2022-05-05] MEDS: Atorvastatin Calcium 10 MG TABLET PO (20:59)
[2022-05-05] MEDS: QUEtiapine Fumarate 300 MG TABLET PO (21:00)
--- NOTE | 2022-05-05 21:04 | PC.NURSE ---
Pt V/S are stable, pt is on the monitor and it shows A-fib. normal skin turgor, absence of edema, lungs sound in the lower lobes are normal, diminished lungs sounds on the upper right lobes. Pt denies any other symptoms. will continue to monitor.
[2022-05-05] MEDS: Sacubitril/Valsartan 49/51 1 TAB TABLET PO (21:10)
[2022-05-05] MEDS: Latanoprost 0.005 % Ophth Sol 2.5 ML DROPS 1 DROP EYE-BOTH (21:10)
--- NOTE | 2022-05-05 22:14 | PC.NURSE ---
This RN gave report to
--- NOTE | 2022-05-06 | ECG_ITS ---
Test Reason : paf Blood Pressure : / mmHG Vent. Rate : 091 BPM Atrial Rate : 091 BPM P-R Int : 158 ms QRS Dur : 076 ms QT Int : 368 ms P-R-T Axes : 057 050 063 degrees QTc Int : 452 ms Sinus rhythm with Premature atrial complexes Nonspecific T wave abnormality Abnormal ECG When compared with ECG of 05-MAY-2022 09:55, Sinus rhythm has replaced Atrial fibrillation ST no longer depressed in Inferior leads ST no longer depressed in Anterior leads Referred By: Pipo Lane Electronically Signed By:MAYUR ADAMS MD
[2022-05-06 00:22] LABS: Appearance Urine Clear; Color Urine Yellow; Glucose Urine UA Negative (Negative); Leukocyte Esterase Urine Negative (Negative); Nitrite Urine Negative (Negative); UMIC TRIGGER UACC YES; Urine Blood Moderate (2+) (Negative); Urine Ketones Negative (Negative); Urine Protein Negative (Neg-Trace)
[2022-05-06 00:23] LABS: Bacteria Urine None Seen (None Seen); Hyaline Casts Urine 0-2 /LPF (0-2); Squamous Epithelial Cell Urine 0-2 /HPF (0-2); WBC Urine 0-5 /HPF (0-5)
[2022-05-06 03:32] VITALS: BP 93/67; PULSE 87; RESP 16; TEMP 36.2; O2SAT 93
[2022-05-06] MEDS: Acetaminophen 325 MG TABLET 650 MG PO ×2 (03:38→12:25)
--- NOTE | 2022-05-06 03:42 | PC.NURSE ---
0400 Patient woke up complaining of low back pain 5/10 and headache 3/10 scale tylenol given and heat applied to low back with satisfactory effect.
[2022-05-06] MEDS: Omeprazole 40 MG CAPSULE.DR PO (05:57)
[2022-05-06 06:18] LABS: MANUAL DIFF FLAG NO
[2022-05-06 06:24] LABS: Basophils Percent Auto 0.6 % (0-2); Eosinophils Absolute Auto 0.1 X10*3/uL (0.0-0.4); Eosinophils Percent Auto 1.1 % (0-4); Hematocrit 40.6 % (42.0-52.0); Hemoglobin 13.6 g/dl (14.0-18.0); Imm Gran Abs Auto 0.01 X10*3/uL (0.00-0.03); Imm Gran Pct Auto 0.2 % (0.0-0.4); Lymphocytes Absolute Auto 1.7 X10*3/uL (1.2-4.9); Lymphocytes Percent Auto 30.8 % (20-40); Mean Corpuscular HGB Conc 33.5 g/dl (31.0-36.0); Mean Corpuscular Hemoglobin 29.8 pg (27.0-33.0); Mean Platelet Volume 9.8 fL (9.4-12.4); Monocytes Absolute Auto 0.5 X10*3/uL (0.1-1.2); Monocytes Percent Auto 9.3 % (2-11); Neutrophils Absolute Auto 3.1 x10*3/uL (2.0-8.3); Platelet Count 190 X10*3/uL (160-400); Red Blood Count 4.56 X10*6/uL (4.60-5.80); Red Cell Distribution Width 13.8 % (11.0-16.0); White Blood Count 5.4 X10*3/uL (4.8-10.8)
[2022-05-06 07:26] VITALS: BP 109/70; PULSE 87; RESP 20; TEMP 36.6; O2SAT 94
[2022-05-06] MEDS: carvediloL 25 MG TABLET PO (07:41)
[2022-05-06] MEDS: 0.9 % Sodium Chloride Flush 3 ML SYRINGE IVFLUSH (07:41)
[2022-05-06] MEDS: Metoclopramide HCl 10 MG TABLET PO ×3 (07:41→15:18)
[2022-05-06] MEDS: Sacubitril/Valsartan 49/51 1 TAB TABLET PO (07:41)
--- NOTE | 2022-05-06 09:23 | MHC.CM.PN ---
with interterpertor met with pt who lives alone and is independet had no previous servceis and is not expected to need serves when dcd
--- NOTE | 2022-05-06 09:47 | PM.CNCAR ---
History of Present Illness History of Present Illness Date of Service: 05/06/22 Requesting physician: Dyan Jimenez Consult reason: atrial fibrillation Chief complaint: afib w. rvr Narrative: I was consulted to see Avery in cardiology consultation today for new onset atrial fibrillation. Patient with prior history of nonischemic cardiomyopathy as per the records from his primary smooth stucco resurfacer's office LVEF of 40-45% with no heart failure syndrome. At home medication on carvedilol and Entresto. He also has history of prior COPD as well as alcohol use. No recent significant alcohol use. Patient came to the hospital because of some abdominal discomfort and subsequently also was having some increasing shortness of breath. On presentation was noted to be having atrial fibrillation rapid ventricular response. He said he was feeling rapid heart rate but that was not his presenting symptom. He came to the hospital his Coreg was increased and he was started on Eliquis therapy. He has converted back to sinus rhythm for the past many hours. Patient has had no recent increasing heart failure symptoms. Denies any orthopnea, PND, leg edema. No lightheadedness, syncope. No change in his medications. No major bleeding issues or neurologic events. He does not recall having palpitations before or been told that he has atrial fibrillation. He has had no recent fever or chills. Monitor since conversion shows frequent PACs. Review of Systems Constitutional: Constitutional: Reports no additional constitutional complaints Eyes: Eyes: Reports no additional eye complaints Cardiovascular: Cardiovascular: Denies chest pain, Denies leg edema, Denies lightheadedness, Reports palpitations, Reports dyspnea on exertion and Denies orthopnea Respiratory: Respiratory: Reports no additional respiratory complaints and Reports dyspnea on exertion Gastrointestinal: Gastrointestinal: Reports no additional gastrointestinal complaints Genitourinary: Genitourinary: Reports no additional male genitourinary complaints Musculoskeletal: Musculoskeletal: Reports no additional musculoskeletal complaints Integumentary/Breasts: Skin/Breast: Reports system reviewed and no additional complaints, except as docu Neurologic: Reports system reviewed and no additional complaints, except as documented Psychiatric: Psychiatric: Reports no additional psychiatric complaints Endocrine: Endocrine: Reports no additional endocrine complaints and Reports palpitations PMFSH Past Medical History Medical History Constipation COPD (chronic obstructive pulmonary disease) COPD (chronic obstructive pulmonary disease) Dyspnea Hyperlipidemia Hypertension Personal history of nicotine dependence Pulmonary nodules Tubular adenoma of colon Family History Family History Mother Renal failure Father History of depression Brother Colon cancer Surgical History Surgical History History of appendectomy History of gastric surgery History of surgery on left wrist (~03/21/10) Hx of cataract surgery (~07/02/10) Hx of colonoscopy (~02/13/06) Hx of endoscopy Social History Social History Household Members: None Housing: Apartment Do you presently have visiting nurse or other home services: No Alcohol intake: current Alcohol intake frequency: holidays/special occasions only Patient Tobacco Use Status: Former Tobacco user Tobacco use type: Cigarette Cigarette Packs Per Day: 0.5 Years Smoked: 51 (onset 14yo) Smoked in Last 30 Days: No e-Cigarette/Vaping Use: Former Use Patient Interested in Nicotine Replacement: No Patient Given Instructions on How to Stop Smoking: No Second Hand Smoke Exposure: No Use of substances other than those prescribed or required for medical reasons: No Currently Displaying Signs/Symptoms of Drug Intoxication Withdrawal: No Any prior treatment program specific to substance use: No Have you been hit, kicked, punched, or otherwise hurt by someone within the past year? If so, by whom?: No Do you feel safe in your current relationship?: Yes Is there a partner from a previous relationship who is making you feel unsafe now?: No Are you made to feel afraid or neglected: No Advance Directives: No Advance Directives Information Provided: No Advance Directives on File: No Do you have thoughts of harming others: None Do you have a plan to hurt others: No Plan Recently lost weight without trying: No Nutrition Risks: No Nutritional Risk service: No Current occupational status: unemployed Meds Allergies Allergy/AdvReac Type Severity Reaction Status Date / Time No Known Allergies Allergy Verified 04/15/22 10:46 [No Known Allergies*] Active Medications: Current Medications Acetaminophen (Acetaminophen 325 Mg Tablet) 650 mg PO Q6H PRN PRN Reason: Pain, Mild (Pain Scale 1-3) Last Admin: 05/06/22 03:38 Dose: 650 mg Atorvastatin Calcium (Atorvastatin Calcium 10 Mg Tablet) 10 mg PO BEDTIME [facility] Last Admin: 05/05/22 20:59 Dose: 10 mg Carvedilol (Carvedilol 25 Mg Tablet) 25 mg PO BID [facility]; Protocol Last Admin: 05/06/22 07:41 Dose: 25 mg Cyclobenzaprine HCl (Cyclobenzaprine Hcl 5 Mg Tablet) 5 mg PO TID PRN PRN Reason: back pain Hydromorphone HCl (Hydromorphone Hcl 0.5 Mg/0.5 Ml Syringe) 0.25 mg IVPUSH Q4H PRN; Protocol PRN Reason: Pain, Severe (Pain Scale 7-10) Latanoprost (Latanoprost 0.005 % Ophth Evelyn 2.5 Ml Drops) 1 drop EYE-BOTH BEDTIME [facility] Last Admin: 05/05/22 21:10 Dose: 1 drop Metoclopramide HCl (Metoclopramide Hcl 10 Mg Tablet) 10 mg PO TIDAC [facility] Last Admin: 05/06/22 07:41 Dose: 10 mg Metoprolol Tartrate (Metoprolol Tartrate 5 Mg/5 Ml Vial) 5 mg IVPUSH Q6H PRN PRN Reason: HR >110 Non-Formulary Medication (Xokuzmgeyde-Paurqfxwq-Jjhkygeq [Trelegy Ellipta]) 1 inhalation INHALE DAILY [facility] Non-Formulary Medication (Linaclotide [Linzess]) 145 mcg PO DAILY [facility] Omeprazole (Omeprazole 40 Mg Capsule.Dr) 40 mg PO DAILY@0630 [facility] Last Admin: 05/06/22 05:57 Dose: 40 mg Ondansetron HCl (Ondansetron Hcl 4 Mg/2 Ml Vial) 4 mg IVPUSH Q8H PRN PRN Reason: Nausea and Vomiting Oxycodone HCl (Oxycodone Hcl Immed Release 5 Mg Tablet) 5 mg PO Q6H PRN PRN Reason: Pain, Moderate (Pain Scale 4-6 Pharmacy Consult (Consult Rx Perform Med Rec) 1 each MISCELLANE ONCE PRN PRN Reason: Consult order Quetiapine Fumarate (Quetiapine Fumarate 300 Mg Tablet) 300 mg PO BEDTIME [facility] Last Admin: 05/05/22 21:00 Dose: 300 mg Sacubitril/Valsartan (Sacubitril/Valsartan 49/51 1 Tab Tablet) 1 tab PO BID [facility]; Protocol Last Admin: 05/06/22 07:41 Dose: 1 tab Senna (Sennosides 8.6 Mg Tablet) 17.2 mg PO BEDTIME PRN PRN Reason: Constipation Sodium Chloride (0.9 % Sodium Chloride Flush 3 Ml Syringe) 3 ml IVFLUSH QSHIFT [facility] Last Admin: 05/06/22 07:41 Dose: 3 ml Trazodone HCl (Trazodone Hcl 100 Mg Tablet) 100 mg PO BEDTIME MRX1 PRN PRN Reason: Sleep Home Medications Medication Instructions Recorded Confirmed Last Taken Type carvedilol 12.5 mg tablet 12.5 mg PO BID 03/27/20 05/05/22 Unknown History latanoprost 0.005 % eye drops 1 drp ophthalmic (eye) BEDTIME 03/27/20 05/05/22 Unknown History quetiapine 300 mg tablet 300 mg PO BEDTIME 03/27/20 05/05/22 Unknown History simvastatin 20 mg tablet 20 mg PO BEDTIME 03/27/20 05/05/22 Unknown History trazodone 100 mg tablet 100 - 200 mg PO BEDTIME PRN Sleep 03/27/20 05/05/22 Unknown History sacubitril 49 mg-valsartan 51 mg 1 tab PO BID 01/04/21 05/05/22 Unknown History tablet sennosides 8.6 mg capsule (senna) 17.2 mg PO DAILY 02/13/22 05/05/22 Unknown History linaclotide 145 mcg capsule 145 mcg PO DAILY 05/05/22 05/05/22 Unknown History (Linzess) metoclopramide HCl 10 mg tablet 10 mg PO TIDAC 05/05/22 05/05/22 Unknown History Physical Exam Vital Signs: Vital Signs: Last Vital Signs Temp 98 F 05/06/22 07:26 Pulse 87 05/06/22 07:26 Resp 20 05/06/22 07:26 BP 109/70 05/06/22 07:26 Pulse Ox 94 05/06/22 07:26 O2 Del Method 05/06/22 07:26 BMI result Body Mass Index 21.4 Const: General: cooperative, comfortable, no acute distress, alert and awake Nutritional Appearance: thin Orientation/consciousness: patient oriented x3 HEENT: Head: Yes normocephalic and Yes atraumatic Neck: Neck: Yes trachea midline, Yes supple and Yes no JVD Resp: Effort & Inspection: normal respiratory effort Auscultation: clear to auscultation bilaterally and diminished lung sounds Cardio: Jugular venous distension: no JVD Palpation: normal PMI Rate: regular rate Rhythm: abnormal rhythm with ectopic beats Heart sounds: S1 normal heart sound present, S2 normal heart sound present, no click, no gallops, no murmurs and no rubs GI: Auscultation: normal bowel sounds Skin: General skin exam: no rashes or lesions noted Neuro: General: patient oriented x3 and no focal motor deficits Extrem: General: Yes no clubbing, cyanosis or edema Objective Labs and Meds Result diagrams: 05/06/22 05:58 05/05/22 10:05 Lab results: Laboratory Results - last 24 hr 05/05/22 05/05/22 05/05/22 10:05 10:05 10:05 WBC 4.3 L RBC 4.75 Hgb 14.1 Hct 42.5 MCV 89.5 MCH 29.7 MCHC 33.2 RDW 13.5 Plt Count 173 MPV 9.6 Immature Gran % (Auto) 0.2 Neut % (Auto) 63.6 Lymph % (Auto) 26.6 [place] % (Auto) 8.2 Eos % (Auto) 0.9 Baso % (Auto) 0.5 Lymph # (Auto) 1.1 L [place] # (Auto) 0.4 Eos # (Auto) 0.0 Baso # (Auto) 0.0 Abs Immat Gran (auto) 0.01 Absolute Neuts (auto) 2.7 Absolute Nucleated RBC 0.000 Nucleated RBC % (auto) 0.0 PT 12.6 INR 1.1 D-Dimer High Sensitivty 329 Sodium 140 Potassium 4.2 Chloride 108 Carbon Dioxide 22 Anion Gap 14 BUN 21 H Creatinine 0.98 Estim Creat Clear Calc 68.0 Estimated GFR > 60 Random Glucose 112 Calcium 8.5 Magnesium 1.9 Total Bilirubin 1.0 Direct Bilirubin 0.4 AST 12 D ALT 9 Alkaline Phosphatase 113 D Troponin I High Sens B-Natriuretic Peptide Total Protein 6.7 Albumin 3.6 TSH 0.58 Urine Color Urine Appearance Urine pH Ur Specific [place] Urine Protein Urine Glucose (UA) Urine Ketones Urine Blood Urine Nitrite Ur Leukocyte Esterase Urine RBC Urine WBC Ur Squamous Epith Cells Urine Bacteria Hyaline Casts Influenza Type A (PCR) Influenza Type B (PCR) RSV RNA Qual (PCR) SARS-CoV-2 RNA (RT-PCR) 05/05/22 05/05/22 05/05/22 10:05 10:05 10:05 WBC RBC Hgb Hct MCV MCH MCHC RDW Plt Count MPV Immature Gran % (Auto) Neut % (Auto) Lymph % (Auto) [place] % (Auto) Eos % (Auto) Baso % (Auto) Lymph # (Auto) [place] # (Auto) Eos # (Auto) Baso # (Auto) Abs Immat Gran (auto) Absolute Neuts (auto) Absolute Nucleated RBC Nucleated RBC % (auto) PT INR D-Dimer High Sensitivty Sodium Potassium Chloride Carbon Dioxide Anion Gap BUN Creatinine Estim Creat Clear Calc Estimated GFR Random Glucose Calcium Magnesium Total Bilirubin Direct Bilirubin AST ALT Alkaline Phosphatase Troponin I High Sens < 3.5 B-Natriuretic Peptide 177 H Total Protein Albumin TSH Urine Color Urine Appearance Urine pH Ur Specific [place] Urine Protein Urine Glucose (UA) Urine Ketones Urine Blood Urine Nitrite Ur Leukocyte Esterase Urine RBC Urine WBC Ur Squamous Epith Cells Urine Bacteria Hyaline Casts Influenza Type A (PCR) NEGATIVE Influenza Type B (PCR) NEGATIVE RSV RNA Qual (PCR) NEGATIVE SARS-CoV-2 RNA (RT-PCR) NEGATIVE 05/05/22 05/06/22 11:56 05:58 WBC 5.4 RBC 4.56 L Hgb 13.6 L Hct 40.6 L MCV 89.0 MCH 29.8 MCHC 33.5 RDW 13.8 Plt Count 190 MPV 9.8 Immature Gran % (Auto) 0.2 Neut % (Auto) 58.0 Lymph % (Auto) 30.8 [place] % (Auto) 9.3 Eos % (Auto) 1.1 Baso % (Auto) 0.6 Lymph # (Auto) 1.7 [place] # (Auto) 0.5 Eos # (Auto) 0.1 Baso # (Auto) 0.0 Abs Immat Gran (auto) 0.01 Absolute Neuts (auto) 3.1 Absolute Nucleated RBC 0.000 Nucleated RBC % (auto) 0.0 PT INR D-Dimer High Sensitivty Sodium Potassium Chloride Carbon Dioxide Anion Gap BUN Creatinine Estim Creat Clear Calc Estimated GFR Random Glucose Calcium Magnesium Total Bilirubin Direct Bilirubin AST ALT Alkaline Phosphatase Troponin I High Sens B-Natriuretic Peptide Total Protein Albumin TSH Urine Color Yellow Urine Appearance Clear Urine pH 6.0 Ur Specific [place] 1.020 Urine Protein Negative Urine Glucose (UA) Negative Urine Ketones Negative Urine Blood Moderate (2+) H Urine Nitrite Negative Ur Leukocyte Esterase Negative Urine RBC 6-10 H Urine WBC 0-5 Ur Squamous Epith Cells 0-2 Urine Bacteria None Seen Hyaline Casts 0-2 Influenza Type A (PCR) Influenza Type B (PCR) RSV RNA Qual (PCR) SARS-CoV-2 RNA (RT-PCR) Imaging Radiologist's impression: Impressions Chest CTA 05/05/22 11:25 IMPRESSION: Severe changes of centrilobular and paraseptal emphysema. Enlarged ascending thoracic aorta measuring up to 4.5 cm in diameter. No significant change in right base density. Old granulomatous disease. Findings consistent with elevated right heart pressures. VTE: negative Assessment and Plan (1) Paroxysmal atrial fibrillation: Status: Acute Symptomatic atrial fibrillation this elderly man with nonischemic cardiomyopathy as well as hypertension. This symptoms rapid heart rate. He has not had these symptoms in the past. Converted to sinus rhythm and feeling better today. I am not sure if his symptoms of shortness of breath are related to his atrial fibrillation. This will need to be followed longitudinally. He will require outpatient prolonged monitoring such as event monitor and/or prolonged Holter monitor. Currently he has converted to sinus rhythm with increased dose of Coreg. Continue Coreg. In the future may require other therapies including may be antiarrhythmic drug therapy if he has recurrence of symptomatic atrial fibrillation. Higher risk for thromboembolic complication advise Eliquis 5 mg b.i.d. which is appropriate. Follow-up with his smooth stucco resurfacer with been made aware of his hospitalization. Currently appears much stable. Avoidance of alcohol was discussed (2) Nonischemic cardiomyopathy: Status: Acute Prior history of nonischemic cardiomyopathy. Possibly alcoholic in nature. Advised complete alcohol cessation. Continue current neurohormonal modulation with carvedilol and Entresto therapy. No signs or symptoms of heart failure. No need for diuretic regimen. Will sign of the case. Patient may be discharged. Case was discussed with the hospitalist team. Procedures Date of Service Date of Service: 05/06/22
[2022-05-06 11:29] VITALS: BP 92/63; PULSE 91; RESP 24; TEMP 36.5; O2SAT 94
--- NOTE | 2022-05-06 12:08 | MHC.CM.PN ---
pt dcc home no skilled services ordered by
--- NOTE | 2022-05-06 15:02 | PM.DS ---
DS: Providers Provider Date of Service: 05/06/22 Date of admission: 05/05/22 15:37 Primary care physician: Rigoberto Madrigal MD Admitting clinician: Dyan Jimenez Attending physician on admission: Leia Edge Consults: 05/05/22 15:37 Consult to Cardiology Routine Consulting Provider: Daryl Pugh Reason for consultation: new onset afib rvr Attending physician on discharge: Leia Edge Discharging clinician: Dyan Jimenez DS: Diagnosis Discharge Diagnosis (1) Paroxysmal atrial fibrillation: Status: Acute (2) Nonischemic cardiomyopathy: Status: Acute DS: Summary Hospital Course Hospital Course: HPI on admission by Ronald Jimenez PA-C on 05/05/2022: 66-year-old male with history of chronic systolic heart failure, hypertension, erosive esophagitis, GERD, depression, COPD, hyperlipidemia, chronic constipation, history of peptic ulcer disease in 2018 without any recurrent GI bleeding, who is a former smoker presented to the ED for ongoing back pain as well as shortness of breath.? He states he has had increased shortness of breath that comes on randomly regardless of activity or rest. No consistent orthopnea or PND. No associated CP, palpitations, lightheadedness, fevers, chills, recent illness.? No abdominal pain, nausea, vomiting, melena, hematochezia. No leukocytosis, no anemia.? Creatinine in 0.98, BUN 21, electrolytes normal.? Troponin negative, BNP 177.? CXR from 04/29 is without any acute cardiopulmonary process.? CTA chest showing severe centrilobular and paraseptal emphysema with ascending thoracic aorta dilatation 4.5 cm in diameter.? Negative for PE.? Findings consistent with elevated right heart pressures.? Patient does follow externally with Dr. Francis cardiology. On arrival pt found tachycardic to 116 with EKG showing AFibw ith RVR, rate 118, no LEONOR, QTc 493. Pt given 10mg IV cardizem with brief improvement in HR and additional dose 10mg cardizem with improvement to 90s. Pt does endorse alcohol abuse. Only drinks 1-2 times weekly, but drinks in excess when he does. NO etoh in the last week due to abx use. No illicit substances. Former cigarette smoker with 53+ pack year history, quit 2 months ago. Pt to be admitted for new onset afib with rvr. Hospital course: Hospital course uneventful. Rate controlled with 2 initial pushes of diltiazem 10mg. Home cardevilol dose increased to 25mg BID (from 12.5mg BID) with heart rate stable 87-91 this morning. Eliquis initiated without bleeding episodes and tolerating well. He was seen and evaluated by cardiology who feels echocardiogram can be performed outpatient and patient is stable to be discharged home to follow up outpt with Dr. Francis in cardiology who knows the patient well. No sob, cp, lightheadedness, palpations. Patient achieved stability faster than initially anticipated and will be discharged home with eliquis 5mg BID (educated on risk of bleeding and given discount card to use at the pharmacy) as well as increased carvedilol 25mg BID. Follow up soon with pcp and cardiology. Return to ED for any recurrent symptoms. Time spent discussing smoking cessation with patient: more than 10 minutes Time Spent with Patient Time attestation: Total time spent providing and/or coordinating discharge services: Discharge coordination time: Greater than 30 minutes Quality: Safe Use of Opioids Does Pt have an Active Cancer Diagnosis on the Problem List?: No Quality: Stroke Does the patient have a stroke diagnosis?: No Physical Exam Vital Signs: Vital Signs: Last Vital Signs Temp 97.7 F 05/06/22 11:29 Pulse 91 05/06/22 11:29 Resp 24 H 05/06/22 11:29 BP 92/63 05/06/22 11:29 Pulse Ox 94 05/06/22 11:29 O2 Del Method 05/06/22 11:29 BMI result Body Mass Index 21.4 Constitutional - Awake and Alert, No apparent distress Eyes - PERRLA, EOMI Cardiovascular - S1S2, RRR, No edema Respiratory - Normal lung expansion, Normal respiratory effort, No respiratory distress, CTA bilaterally Extremities - no calf tenderness bilaterally, no swelling Skin - Warm/Dry Neurological - Alert & oriented x3 Psychological - Appropriate affect DS: Data Data Completed and Pending Labs on day of discharge: Laboratory Results - last 24 hr 05/05/22 05/05/22 05/06/22 10:05 11:56 05:58 WBC 5.4 RBC 4.56 L Hgb 13.6 L Hct 40.6 L MCV 89.0 MCH 29.8 MCHC 33.5 RDW 13.8 Plt Count 190 MPV 9.8 Immature Gran % (Auto) 0.2 Neut % (Auto) 58.0 Lymph % (Auto) 30.8 [place] % (Auto) 9.3 Eos % (Auto) 1.1 Baso % (Auto) 0.6 Lymph # (Auto) 1.7 [place] # (Auto) 0.5 Eos # (Auto) 0.1 Baso # (Auto) 0.0 Abs Immat Gran (auto) 0.01 Absolute Neuts (auto) 3.1 Absolute Nucleated RBC 0.000 Nucleated RBC % (auto) 0.0 TSH 0.58 Urine Color Yellow Urine Appearance Clear Urine pH 6.0 Ur Specific [place] 1.020 Urine Protein Negative Urine Glucose (UA) Negative Urine Ketones Negative Urine Blood Moderate (2+) H Urine Nitrite Negative Ur Leukocyte Esterase Negative Urine RBC 6-10 H Urine WBC 0-5 Ur Squamous Epith Cells 0-2 Urine Bacteria None Seen Hyaline Casts 0-2 Discharge Plan Discharge Anticipated Discharge Date/Time: 05/06/22 14:44 Patient Disposition: Home, Self-Care Discharge Diagnosis: new onset arial fibrillation with rvr Referrals: Rigoberto Madrigal MD [Primary Care Provider] - 1 Week Discharge Medications: New carvedilol 25 mg Tablet 25 mg PO BID Qty: 60 0RF Protocol: Hold for SBP/HR < HOLD for SBP < : 90 HOLD for HR < : 60 Eliquis 5 mg tablet 5 mg PO BID Qty: 60 0RF Continued albuterol sulfate [Ventolin HFA] 90 mcg/actuation HFA aerosol inhaler 2 inh inhalation Q6H PRN (Reason: shortness of breath or wheezing) 30 Days Qty: 18 0RF Trelegy Ellipta 200-62.5-25 mcg blister with device 1 inh inhalation DAILY 30 Days Qty: 60 2RF ibuprofen 600 mg tablet 600 mg PO Q8H PRN (Reason: pain) 14 Days Qty: 30 0RF dexlansoprazole 60 mg capsule,biphase delayed releas 60 mg PO DAILY Qty: 90 0RF cyclobenzaprine 5 mg tablet 5 mg PO TID PRN (Reason: back pain) 7 Days Qty: 21 0RF metoclopramide HCl 10 mg tablet 10 mg PO TIDAC Linzess 145 mcg capsule 145 mcg PO DAILY trazodone 100 mg tablet 100 - 200 mg PO BEDTIME PRN (Reason: Sleep) quetiapine 300 mg tablet 300 mg PO BEDTIME simvastatin 20 mg tablet 20 mg PO BEDTIME latanoprost 0.005 % drops 1 drp ophthalmic (eye) BEDTIME sacubitril-valsartan 49-51 mg tablet 1 tab PO BID senna 8.6 mg capsule 17.2 mg PO DAILY Discontinued carvedilol 12.5 mg tablet 12.5 mg PO BID Discharge Orders: Discharge Order (Routine); Ordered 05/06/22 Ordered By: Dyan Jimenez Diet: Advance to usual diet Activity on Discharge: As tolerated Stand Alone Forms: Patient Portal Discharge page Care Plan Goals: Control heart rate and reduce stroke risk Health Concerns: Atrial fibrillation with rapid ventricular rate Plan of Treatment: Atrial fibrillation- Follow up soon with Dr. Francis in cardiology. It is important you take the eliquis (blood thinner) every day to help reduce the risk of suffering a stroke, as you are at increased risk of this due to the AFib. Monitor for any bleeding episodes and contact your pcp or go to the ER for any uncontrolled bleeding. Carvedilol was increased to 25mg twice daily to help control your heart rate. You should schedule an appointment soon with your PCP and director cardiology for an updated echocardiogram outpatient. You were evaluated by Dr. Lane in cardiology while admitted and echo was not felt to be needed inpatient. If there are issues with the eliquis (blood thinnger), please call us or your PCP. I am giving you a coupon to help cover the medication Assessment: See above
[2022-05-06] MEDS: Apixaban 5 MG TABLET PO (15:18)
== END 2022-05-06 16:00 | disposition home or self-care (01) | DRG 309 ==
LOC: HO.ED 16:06 → HO.EDOVER 16:09 → HO.IMC 21:03
PROVIDERS: Physician Assistant; Admitting Provider Physician Assistant; Emergency Provider Emergency Medicine; PCP Internal Medicine; Visit Provider Physician Assistant
DX: I48.0 Paroxysmal atrial fibrillation (principal); I50.22 Chronic systolic (congestive) heart failure; M54.50 Low back pain, unspecified; I11.0 Hypertensive heart disease with heart failure; F32.A Depression, unspecified; I42.8 Other cardiomyopathies; G47.00 Insomnia, unspecified; J44.9 Chronic obstructive pulmonary disease, unspecified; K59.09 Other constipation; E78.5 Hyperlipidemia, unspecified; Z20.822 Contact with and (suspected) exposure to COVID-19; Z87.891 Personal history of nicotine dependence; Z87.11 Personal history of peptic ulcer disease; Z79.899 Other long term (current) drug therapy
CPT/HCPCS: 0241U; 36415; 71275; 80048; 80076; 81001; 83735; 83880; 84443; 84484; 85025; 85379; 85610; 93005; 99285; Q9967

== ENCOUNTER → 2022-05-21 09:37 | Outpatient (BNVA) | payer MEDICARE, MEDICAID, SELFPAY | PROVIDERS: PCP Internal Medicine; Visit Provider Hospitalist | DX: R91.1 Solitary pulmonary nodule (principal); R91.8 Other nonspecific abnormal finding of lung field; J43.2 Centrilobular emphysema; R06.00 Dyspnea, unspecified; F17.210 Nicotine dependence, cigarettes, uncomplicated | CPT/HCPCS: 99212 ==

== ENCOUNTER 2022-05-26 11:16 | Emergency (ER) | payer MEDICARE, MEDICAID, SELFPAY ==
--- NOTE | ~2022-05-26 | CT_ITS ---
EXAMINATION: CT ABDOMEN AND PELVIS WITH CONTRAST CLINICAL INFORMATION: Abdominal pain. COMPARISON: Abdomen CT from 02/10/2022. Chest CT from 01/22/2018. TECHNIQUE: Multidetector volumetric images were obtained from the superior aspect of the liver through the pubic symphysis following administration 85 mL of Omnipaque 350 intravenous contrast. Sagittal and coronal reformatted images were obtained on the technologist's workstation. Oral contrast: No This CT examination was performed using dose optimization techniques as appropriate, variously including the following: *Automated exposure control *Adjustment of mA and/or kV according to patient size (this includes techniques or standardized protocols for targeted exams where dose is matched to indication/reason for exam; i.e. extremities or head) *Use of iterative reconstruction technique DLP: 566 mGy-cm FINDINGS: LUNG BASES: Minimal atelectasis in dependent aspect of each lower lobe. No consolidation or pleural effusion. A somewhat linear opacity overlying the diaphragm at the base of the right lower lobe appears to represent focal scar or atelectasis. This does not have a masslike appearance. No pleural effusion. Moderate centrilobular emphysema. LIVER: Liver has normal size and contour. A few very small cysts are present in the liver. No suspicious hepatic lesion. GALLBLADDER AND BILIARY TREE: Gallbladder is without radiopaque stones, wall thickening or pericholecystic fluid. No dilated bile ducts. PANCREAS: No acute findings within the atrophied pancreas. No edema, pancreatic ductal dilatation or mass. SPLEEN: Normal size. Calcified granuloma is present in the superomedial spleen. ADRENAL GLANDS: There are foci of minimal nodular thickening of each adrenal gland that remain unchanged compared 01/22/2018. No suspicious adrenal lesion. No adrenal imaging follow-up is recommended. KIDNEYS AND URETERS: Kidneys are normal in size. No nephrolithiasis or hydronephrosis. Simple cysts of both kidneys. No renal imaging follow-up is recommended for simple cysts. Chronic focal cortical thinning/scarring of the posterior right lower pole. BLADDER: No bladder mass or stone. There is borderline diffuse thickening of urinary bladder wall without focal lesion. BOWEL AND PERITONEUM: There appears to be a very small sliding-type hiatal hernia. Stomach is underdistended. No dilated bowel loops. Although the appendix is not definitively seen, there are no inflammatory changes in the right lower quadrant. No focal bowel wall thickening, mesenteric fat stranding or free fluid. No pneumoperitoneum. Mild diverticulosis of the sigmoid colon without diverticulitis. ABDOMINAL WALL: Unremarkable. VASCULATURE: Mild atherosclerosis of the abdominal aorta without aneurysm. LYMPH NODES: No pathologic sized lymph nodes in the abdomen or pelvis. No inguinal lymphadenopathy. PELVIC VISCERA: Prostate gland is grossly unremarkable. MUSCULOSKELETAL: Bone density is diffusely decreased. Correlate for risk factors for development of osteoporosis. T9 vertebral body compression fracture has a subacute appearance, also present on 05/05/2022, and there is 40% anterior height loss. The T9 fracture is new compared to 04/05/2022. Degenerative disc space loss, vacuum disc phenomenon and minimal retrolisthesis at L5-S1. CT/CT abdomen pelvis w IV con IMPRESSION: * No acute imaging abnormalities in the abdomen or pelvis. No nephrolithiasis or hydronephrosis. * Mild diverticulosis of the sigmoid colon without diverticulitis. * Subacute compression fracture of the T9 vertebral body is new compared to 04/05/2022 but unchanged compared to 05/05/2022. Bones appear to be diffusely osteoporotic.
--- NOTE | ~2022-05-26 | XR_ITS ---
EXAMINATION: XR chest 2V CLINICAL INFORMATION: Reason for Exam cough, wheezing COMPARISON: Chest radiograph 04/29/2022, CT chest 05/05/2022 CT chest 04/05/2022 TECHNIQUE: 2 views of the chest FINDINGS: Streaky bibasilar airspace opacities favoring atelectasis. No pneumothorax or pleural effusion. Borderline enlarged cardiac silhouette. Again seen is a T9 wedge compression deformity with approximately 50% height loss and kyphosis at this level. XR/XR chest 2V IMPRESSION: * Streaky bibasilar airspace opacities favoring atelectasis. * Again seen is a T9 wedge compression deformity with approximately 50% height loss and kyphosis at this level.
[2022-05-26 11:28] VITALS: BP 98/73; PULSE 74; RESP 18; TEMP 36.4; O2SAT 98; BMI 22.9
--- NOTE | 2022-05-26 11:30 | ED.ABDPAIN ---
HPI - Abdominal Pain General Chief Complaint: Abdominal Pain Stated Complaint: Abd pain/Back pain Time Seen by Provider: 05/26/22 14:00 Related Data Home Medications Medication Instructions Recorded Confirmed latanoprost 0.005 % eye drops 1 drp ophthalmic (eye) BEDTIME 03/27/20 05/05/22 quetiapine 300 mg tablet 300 mg PO BEDTIME 03/27/20 05/05/22 simvastatin 20 mg tablet 20 mg PO BEDTIME 03/27/20 05/05/22 trazodone 100 mg tablet 100 - 200 mg PO BEDTIME PRN Sleep 03/27/20 05/05/22 sacubitril 49 mg-valsartan 51 mg 1 tab PO BID 01/04/21 05/05/22 tablet sennosides 8.6 mg capsule (senna) 17.2 mg PO DAILY 02/13/22 05/05/22 Previous Rx's Medication Instructions Recorded Ventolin HFA 90 mcg/actuation 2 inh inhalation Q6H PRN shortness 02/27/22 aerosol inhaler (albuterol sulfate) of breath or wheezing 30 days #18 grams Trelegy Ellipta 200 mcg-62.5 1 inh inhalation DAILY 30 days #60 04/06/22 mcg-25 mcg powder for inhalation ea (hwljmesyqad-tzyapghhx-mykzltxg) ibuprofen 600 mg tablet 600 mg PO Q8H PRN pain 14 days #30 04/19/22 tabs cyclobenzaprine 5 mg tablet 5 mg PO TID PRN back pain 7 days 04/29/22 #21 tabs apixaban 5 mg tablet (Eliquis) 5 mg PO BID #60 tabs 05/06/22 carvedilol 25 mg tablet 25 mg PO BID #60 tabs 05/06/22 dexlansoprazole 60 mg 60 mg PO DAILY #90 caps 05/22/22 capsule,biphase delayed release linaclotide 145 mcg capsule 145 mcg PO DAILY #60 caps 05/22/22 (Linzess) metoclopramide HCl 10 mg tablet 10 mg PO QIDACHS #120 tabs 05/22/22 lidocaine 4 % topical patch 1 patch topical DAILY PRN pain #30 05/26/22 ea oxycodone 5 mg tablet 5 mg PO Q6H PRN pain #20 tabs 05/26/22 Allergies Allergy/AdvReac Type Severity Reaction Status Date / Time No Known Allergies Allergy Verified 05/21/22 09:40 [No Known Allergies*] PMFSH Past Medical History Medical History Constipation COPD (chronic obstructive pulmonary disease) COPD (chronic obstructive pulmonary disease) Dyspnea Hyperlipidemia Hypertension Personal history of nicotine dependence Pulmonary nodules Tubular adenoma of colon Surgical History History of appendectomy History of gastric surgery History of surgery on left wrist (~03/21/10) Hx of cataract surgery (~07/02/10) Hx of colonoscopy (~02/13/06) Hx of endoscopy Family History Family History Mother Renal failure Father History of depression Brother Colon cancer Social History Social History Household Members: None Housing: Apartment Do you presently have visiting nurse or other home services: No Alcohol intake: current Alcohol intake frequency: holidays/special occasions only Patient Tobacco Use Status: Former Tobacco user Tobacco use type: Cigarette Cigarette Packs Per Day: 0.5 Years Smoked: 51 (onset 14yo) e-Cigarette/Vaping Use: Former Use Second Hand Smoke Exposure: No Advance Directives: Yes Advance Directives Information Provided: Yes Advance Directives on File: No service: No Current occupational status: unemployed Physical Exam ED Vital Signs: Vital Signs - 24 hr 05/26/22 11:28 05/26/22 14:30 05/26/22 18:48 Temperature 97.5 F 97.7 F Pulse Rate 74 60 74 Respiratory Rate 18 16 16 Blood Pressure 98/73 112/75 101/74 Pulse Oximetry 98 94 94 Oxygen Delivery Method Room Air Room Air Room Air BMI result Body Mass Index 22.9 Course Course Course Narrative: This is rapid medical exam. Deferred additional HPI, ROS, PE to primary provider. 67-year-old male with a history of AFib, nonischemic cardiomyopathy, COPD, hypertension presents with 3 days of chest and abdominal pain with no other associated symptoms. Will check labs, EKG, chest x-ray, viral testing, UA. VSS Medications Administered Discontinued Medications Generic Name Dose Route Start Last Admin Trade Name Freq PRN Reason Stop Dose Admin Iohexol 100 ml 05/26/22 15:50 05/26/22 15:50 Iohexol 350 Mg/Ml 100 Ml Infus..Btl IV 05/26/22 15:51 85 ml ONCE ONE Administration Lidocaine 1 patch 05/26/22 18:29 05/26/22 18:41 Lidocaine 4 % Patch Adh..Patch TRANSDERMA 05/26/22 18:30 1 patch ONCE ONE Administration Protocol Oxycodone HCl 10 mg 05/26/22 18:30 05/26/22 18:40 Oxycodone Hcl Immed Release 5 Mg Tablet PO 05/26/22 18:31 10 mg ONCE ONE Administration MDM - Abdominal Pain Lab Data Result diagrams: 05/26/22 11:42 05/26/22 11:42 Labs: Lab Results 05/26/22 05/26/22 05/26/22 Range/Units 11:42 11:42 11:42 WBC 6.4 (4.8-10.8) X10*3/uL RBC 4.90 (4.60-5.80) X10*6/uL Hgb 14.6 (14.0-18.0) g/dl Hct 44.2 (42.0-52.0) % MCV 90.2 (80.0-98.0) fL MCH 29.8 (27.0-33.0) pg MCHC 33.0 (31.0-36.0) g/dl RDW 12.8 (11.0-16.0) % Plt Count 229 (160-400) X10*3/uL MPV 9.9 (9.4-12.4) fL Immature Gran % (Auto) 0.2 (0.0-0.4) % Neut % (Auto) 71.2 (45-73) % Lymph % (Auto) 19.2 L (20-40) % [place] % (Auto) 7.8 (2-11) % Eos % (Auto) 1.3 (0-4) % Baso % (Auto) 0.3 (0-2) % Lymph # (Auto) 1.2 (1.2-4.9) X10*3/uL [place] # (Auto) 0.5 (0.1-1.2) X10*3/uL Eos # (Auto) 0.1 (0.0-0.4) X10*3/uL Baso # (Auto) 0.0 (0.0-0.2) X10*3/uL Abs Immat Gran (auto) 0.01 (0.00-0.03) X10*3/uL Absolute Neuts (auto) 4.6 (2.0-8.3) x10*3/uL Absolute Nucleated RBC 0.000 (0.0-0.012) X10*3/uL Nucleated RBC % (auto) 0.0 (0.0-0.2) /100WBC PT (10.0-13.1) SEC INR (0.9-1.1) Sodium 131 L (135-145) mmol/L Potassium 4.0 (3.3-5.1) mmol/L Chloride 104 (96-108) mmol/L Carbon Dioxide 25 (22-29) mmol/L Anion Gap 6 L (12-20) BUN 23 H (9-16) mg/dL Creatinine 1.11 (0.5-1.4) mg/dL Estim Creat Clear Calc 65.3 Estimated GFR > 60 Random Glucose 114 (60-115) mg/dL Calcium 8.7 (8.4-10.2) mg/dL Magnesium 2.0 (1.6-2.6) mg/dL Total Bilirubin 1.4 H (0.0-1.0) mg/dL Direct Bilirubin 0.4 (0.0-0.5) mg/dL AST 13 (5-37) U/L ALT 13 (0-40) U/L Alkaline Phosphatase 91 (39-117) U/L Troponin I High Sens < 3.5 (<3.5-35.0) ng/L Total Protein 7.1 (6.5-8.0) g/dL Albumin 4.0 (3.5-5.0) g/dL Lipase 96 H (8-78) U/L Urine Color Urine Appearance Urine pH (5.0-9.0) Ur Specific [place] (1.005-1.025) Urine Protein (Neg-Trace) mg/dL Urine Glucose (UA) (Negative) mg/dL Urine Ketones (Negative) mg/dL Urine Blood (Negative) Urine Nitrite (Negative) Ur Leukocyte Esterase (Negative) Urine RBC (0-2) /HPF Urine WBC (0-5) /HPF Ur Squamous Epith Cells (0-2) /HPF Urine Bacteria (None Seen) Hyaline Casts (0-2) /LPF Influenza Type A (PCR) (Negative) Influenza Type B (PCR) (Negative) RSV RNA Qual (PCR) (Negative) SARS-CoV-2 RNA (RT-PCR) (Negative) 05/26/22 05/26/22 05/26/22 Range/Units 11:42 11:42 14:42 WBC (4.8-10.8) X10*3/uL RBC (4.60-5.80) X10*6/uL Hgb (14.0-18.0) g/dl Hct (42.0-52.0) % MCV (80.0-98.0) fL MCH (27.0-33.0) pg MCHC (31.0-36.0) g/dl RDW (11.0-16.0) % Plt Count (160-400) X10*3/uL MPV (9.4-12.4) fL Immature Gran % (Auto) (0.0-0.4) % Neut % (Auto) (45-73) % Lymph % (Auto) (20-40) % [place] % (Auto) (2-11) % Eos % (Auto) (0-4) % Baso % (Auto) (0-2) % Lymph # (Auto) (1.2-4.9) X10*3/uL [place] # (Auto) (0.1-1.2) X10*3/uL Eos # (Auto) (0.0-0.4) X10*3/uL Baso # (Auto) (0.0-0.2) X10*3/uL Abs Immat Gran (auto) (0.00-0.03) X10*3/uL Absolute Neuts (auto) (2.0-8.3) x10*3/uL Absolute Nucleated RBC (0.0-0.012) X10*3/uL Nucleated RBC % (auto) (0.0-0.2) /100WBC PT 19.2 H (10.0-13.1) SEC INR 1.6 H (0.9-1.1) Sodium (135-145) mmol/L Potassium (3.3-5.1) mmol/L Chloride (96-108) mmol/L Carbon Dioxide (22-29) mmol/L Anion Gap (12-20) BUN (9-16) mg/dL Creatinine (0.5-1.4) mg/dL Estim Creat Clear Calc Estimated GFR Random Glucose (60-115) mg/dL Calcium (8.4-10.2) mg/dL Magnesium (1.6-2.6) mg/dL Total Bilirubin (0.0-1.0) mg/dL Direct Bilirubin (0.0-0.5) mg/dL AST (5-37) U/L ALT (0-40) U/L Alkaline Phosphatase (39-117) U/L Troponin I High Sens (<3.5-35.0) ng/L Total Protein (6.5-8.0) g/dL Albumin (3.5-5.0) g/dL Lipase (8-78) U/L Urine Color Yellow Urine Appearance Clear Urine pH 5.5 (5.0-9.0) Ur Specific [place] 1.025 (1.005-1.025) Urine Protein Negative (Neg-Trace) mg/dL Urine Glucose (UA) Negative (Negative) mg/dL Urine Ketones Negative (Negative) mg/dL Urine Blood Moderate (2+) H (Negative) Urine Nitrite Negative (Negative) Ur Leukocyte Esterase Negative (Negative) Urine RBC 11-20 H (0-2) /HPF Urine WBC 0-5 (0-5) /HPF Ur Squamous Epith Cells 0-2 (0-2) /HPF Urine Bacteria None Seen (None Seen) Hyaline Casts 0-2 (0-2) /LPF Influenza Type A (PCR) NEGATIVE (Negative) Influenza Type B (PCR) NEGATIVE (Negative) RSV RNA Qual (PCR) NEGATIVE (Negative) SARS-CoV-2 RNA (RT-PCR) NEGATIVE (Negative) Discharge Plan Discharge Clinical Impression: Compression fracture of thoracic vertebra Patient Disposition: Home, Self-Care Instructions: Vertebral Compression Fracture (ED) Additional Instructions: Take pain medication as advised Follow-up with interventional radiologist for vertebroplasty as provided Follow with PCP Prescriptions: New oxycodone 5 mg tablet 5 mg PO Q6H PRN (Reason: pain) Qty: 20 0RF Rx Instructions: Partial Fill upon patient request. lidocaine 4 % adhesive patch,medicated 1 patch topical DAILY PRN (Reason: pain) Qty: 30 0RF No Action albuterol sulfate [Ventolin HFA] 90 mcg/actuation HFA aerosol inhaler 2 inh inhalation Q6H PRN (Reason: shortness of breath or wheezing) 30 Days Qty: 18 0RF Trelegy Ellipta 200-62.5-25 mcg blister with device 1 inh inhalation DAILY 30 Days Qty: 60 2RF ibuprofen 600 mg tablet 600 mg PO Q8H PRN (Reason: pain) 14 Days Qty: 30 0RF Linzess 145 mcg capsule 145 mcg PO DAILY Qty: 60 4RF dexlansoprazole 60 mg capsule,biphase delayed releas 60 mg PO DAILY Qty: 90 1RF metoclopramide HCl 10 mg tablet 10 mg PO QIDACHS Qty: 120 3RF cyclobenzaprine 5 mg tablet 5 mg PO TID PRN (Reason: back pain) 7 Days Qty: 21 0RF carvedilol 25 mg Tablet 25 mg PO BID Qty: 60 0RF Protocol: Hold for SBP/HR < HOLD for SBP < : 90 HOLD for HR < : 60 Eliquis 5 mg tablet 5 mg PO BID Qty: 60 0RF trazodone 100 mg tablet 100 - 200 mg PO BEDTIME PRN (Reason: Sleep) quetiapine 300 mg tablet 300 mg PO BEDTIME simvastatin 20 mg tablet 20 mg PO BEDTIME latanoprost 0.005 % drops 1 drp ophthalmic (eye) BEDTIME sacubitril-valsartan 49-51 mg tablet 1 tab PO BID senna 8.6 mg capsule 17.2 mg PO DAILY Referrals: Wil Delgado MD [Physician] - 1 week (Vertebral compression fracture) Interventions: ED Discharge Assessment Last Done: 05/26/22 18:51 Discharge Date/Time: 05/26/22 18:51
--- NOTE | 2022-05-26 11:31 | ECG_ITS ---
Test Reason : ABD PAIN Blood Pressure : / mmHG Vent. Rate : 071 BPM Atrial Rate : 071 BPM P-R Int : 152 ms QRS Dur : 076 ms QT Int : 392 ms P-R-T Axes : 049 046 056 degrees QTc Int : 425 ms Normal sinus rhythm Normal ECG When compared with ECG of 06-MAY-2022 10:05, Premature atrial complexes are no longer Present Nonspecific T wave abnormality no longer evident in Anterolateral leads Referred By: Amarilis Rolle Electronically Signed By:ZULEMA JORDAN MD
[2022-05-26 11:47] LABS: MANUAL DIFF FLAG NO
[2022-05-26 11:49] LABS: Basophils Percent Auto 0.3 % (0-2); Eosinophils Absolute Auto 0.1 X10*3/uL (0.0-0.4); Eosinophils Percent Auto 1.3 % (0-4); Hematocrit 44.2 % (42.0-52.0); Hemoglobin 14.6 g/dl (14.0-18.0); Imm Gran Abs Auto 0.01 X10*3/uL (0.00-0.03); Imm Gran Pct Auto 0.2 % (0.0-0.4); Lymphocytes Absolute Auto 1.2 X10*3/uL (1.2-4.9); Lymphocytes Percent Auto 19.2 % (20-40); Mean Corpuscular Hemoglobin 29.8 pg (27.0-33.0); Mean Corpuscular Volume 90.2 fL (80.0-98.0); Mean Platelet Volume 9.9 fL (9.4-12.4); Monocytes Absolute Auto 0.5 X10*3/uL (0.1-1.2); Monocytes Percent Auto 7.8 % (2-11); Neutrophils Absolute Auto 4.6 x10*3/uL (2.0-8.3); Neutrophils Percent Auto 71.2 % (45-73); Platelet Count 229 X10*3/uL (160-400); Red Cell Distribution Width 12.8 % (11.0-16.0); White Blood Count 6.4 X10*3/uL (4.8-10.8)
[2022-05-26 11:55] LABS: INTERNATIONAL NORM RATIO 1.6 (0.9-1.1); Prothrombin Time 19.2 SEC (10.0-13.1)
[2022-05-26 12:12] LABS: Alanine Aminotransferase 13 U/L (0-40); Alkaline Phosphatase 91 U/L (39-117); Anion Gap 6 (12-20); Aspartate Amino Transferase 13 U/L (5-37); Bilirubin Direct 0.4 mg/dL (0.0-0.5); Bilirubin Total 1.4 mg/dL (0.0-1.0); Blood Urea Nitrogen 23 mg/dL (9-16); Calcium 8.7 mg/dL (8.4-10.2); Carbon Dioxide 25 mmol/L (22-29); Chloride 104 mmol/L (96-108); Creatinine Clr Calc Pharmacy 65.3; Estimated Glomerular Filt Rate > 60; Glucose Random 114 mg/dL (60-115); Lipase 96 U/L (8-78); Sodium 131 mmol/L (135-145); Total Protein 7.1 g/dL (6.5-8.0)
[2022-05-26 12:25] LABS: Troponin-I High Sensitivity < 3.5 ng/L (<3.5-35.0)
[2022-05-26 12:32] LABS: Influenza A PCR NEGATIVE (Negative); Influenza B PCR NEGATIVE (Negative); Resp Syncy Virus RNA Qual PCR NEGATIVE (Negative); SARS COV2 PCR INHOUSE NEGATIVE (Negative)
[2022-05-26 14:30] VITALS: BP 112/75; PULSE 60; RESP 16; TEMP 36.5; O2SAT 94
--- NOTE | 2022-05-26 14:30 | ED.ABDPAIN ---
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 Patient states he was here several weeks ago with several complaints. At that time workup was apparently negative as patient was discharged home. States the pain has gotten worse. Located around the entire abdomen and into the mid back area, not associated with vomiting, nausea or diarrhea. There have been no fevers or shaking chills. <Xavier Perez MD - Last Filed: 05/26/22 14:41> MD elicited complaint: abdominal pain and flank pain <Xavier Perez MD - Last Filed: 05/26/22 14:41> Onset (ago): week(s) <Xavier Perez MD - Last Filed: 05/26/22 14:41> Pain Consistency: constant <Xavier Perez MD - Last Filed: 05/26/22 14:41> Severity: moderate <Xavier Perez MD - Last Filed: 05/26/22 14:41> Exacerbating factors: movement <Xavier Perez MD - Last Filed: 05/26/22 14:41> Relieving factors: nothing <Xavier Perez MD - Last Filed: 05/26/22 14:41> Associated symptoms: denies other symptoms <Xavier Perez MD - Last Filed: 05/26/22 14:41> Related Data Home Medications: Home Medications Medication Instructions Recorded Confirmed latanoprost 0.005 % eye drops 1 drp ophthalmic (eye) BEDTIME 03/27/20 05/05/22 quetiapine 300 mg tablet 300 mg PO BEDTIME 03/27/20 05/05/22 simvastatin 20 mg tablet 20 mg PO BEDTIME 03/27/20 05/05/22 trazodone 100 mg tablet 100 - 200 mg PO BEDTIME PRN Sleep 03/27/20 05/05/22 sacubitril 49 mg-valsartan 51 mg 1 tab PO BID 01/04/21 05/05/22 tablet sennosides 8.6 mg capsule (senna) 17.2 mg PO DAILY 02/13/22 05/05/22 Previous Rx's Medication Instructions Recorded Ventolin HFA 90 mcg/actuation 2 inh inhalation Q6H PRN shortness 02/27/22 aerosol inhaler (albuterol sulfate) of breath or wheezing 30 days #18 grams Trelegy Ellipta 200 mcg-62.5 1 inh inhalation DAILY 30 days #60 04/06/22 mcg-25 mcg powder for inhalation ea (plraqrihwvi-gaiyrmerh-dxwcvnce) ibuprofen 600 mg tablet 600 mg PO Q8H PRN pain 14 days #30 04/19/22 tabs cyclobenzaprine 5 mg tablet 5 mg PO TID PRN back pain 7 days 04/29/22 #21 tabs apixaban 5 mg tablet (Eliquis) 5 mg PO BID #60 tabs 05/06/22 carvedilol 25 mg tablet 25 mg PO BID #60 tabs 05/06/22 dexlansoprazole 60 mg 60 mg PO DAILY #90 caps 05/22/22 capsule,biphase delayed release linaclotide 145 mcg capsule 145 mcg PO DAILY #60 caps 05/22/22 (Linzess) metoclopramide HCl 10 mg tablet 10 mg PO QIDACHS #120 tabs 05/22/22 oxycodone 5 mg tablet 5 mg PO Q6H PRN pain #20 tabs 05/26/22 <Xavier Perez MD - Last Filed: 05/26/22 14:41> Allergies/Adverse Reactions: Allergies Allergy/AdvReac Type Severity Reaction Status Date / Time No Known Allergies Allergy Verified 05/21/22 09:40 [No Known Allergies*] <Xavier Perez MD - Last Filed: 05/26/22 14:41> Review of Systems Review of Systems Constitutional: Denies chills and Denies fever(s) Eyes: Denies blurry vision and Denies diplopia ENT: Denies dizziness, Denies nasal congestion and Denies sore throat Cardiovascular: Denies chest pain, Denies syncope and Denies rapid heart rate Respiratory: Denies cough and Denies wheezing Gastrointestinal: Denies diarrhea, Denies nausea and Denies vomiting Genitourinary: No dysuria or hematuria. Musculoskeletal: admits to back pain and Denies myalgias Neuro: Denies dizziness and Denies syncope Allergic/Immunologic: Denies wheezing, rash <Xavier Perez MD - Last Filed: 05/26/22 14:41> Denies Sensory deficit (Neuro) <Xavier Perez MD - Last Filed: 05/26/22 14:41> [facility] Past Medical History Attestation statement: The following information was validated with the patient. <Xavier Perez MD - Last Filed: 05/26/22 14:41> Source: old records reviewed and nursing notes reviewed <Xavier Perez MD - Last Filed: 05/26/22 14:41> Medical History: Medical History Constipation COPD (chronic obstructive pulmonary disease) COPD (chronic obstructive pulmonary disease) Dyspnea Hyperlipidemia Hypertension Personal history of nicotine dependence Pulmonary nodules Tubular adenoma of colon <Xavier Perez MD - Last Filed: 05/26/22 14:41> Surgical History: Surgical History History of appendectomy History of gastric surgery History of surgery on left wrist (~03/21/10) Hx of cataract surgery (~07/02/10) Hx of colonoscopy (~02/13/06) Hx of endoscopy <Xavier Perez MD - Last Filed: 05/26/22 14:41> Family History Family History: Family History Mother Renal failure Father History of depression Brother Colon cancer <Xavier Perez MD - Last Filed: 05/26/22 14:41> Social History Social History: Social History Household Members: None Housing: Apartment Do you presently have visiting nurse or other home services: No Alcohol intake: current Alcohol intake frequency: holidays/special occasions only Patient Tobacco Use Status: Former Tobacco user Tobacco use type: Cigarette Cigarette Packs Per Day: 0.5 Years Smoked: 51 (onset 14yo) e-Cigarette/Vaping Use: Former Use Second Hand Smoke Exposure: No Advance Directives: Yes Advance Directives Information Provided: Yes Advance Directives on File: No service: No Current occupational status: unemployed <Xavier Perez MD - Last Filed: 05/26/22 14:41> Physical Exam ED Vital Signs: Vital Signs - 24 hr 05/26/22 11:28 05/26/22 14:30 Temperature 97.5 F 97.7 F Pulse Rate 74 60 Respiratory Rate 18 16 Blood Pressure 98/73 112/75 Pulse Oximetry 98 94 Oxygen Delivery Method Room Air Room Air BMI result Body Mass Index 22.9 vital signs normal except borderline hypotension noted <Xavier Perez MD - Last Filed: 05/26/22 14:41> Vital Signs - 24 hr 05/26/22 11:28 05/26/22 14:30 Temperature 97.5 F 97.7 F Pulse Rate 74 60 Respiratory Rate 18 16 Blood Pressure 98/73 112/75 Pulse Oximetry 98 94 Oxygen Delivery Method Room Air Room Air BMI result Body Mass Index 22.9 <Neo Ayala MD - Last Filed: 05/26/22 18:28> Const General: cooperative and comfortable <Xavier Perez MD - Last Filed: 05/26/22 14:41> Nutritional Appearance: average body habitus <Xaveir Perez MD - Last Filed: 05/26/22 14:41> Orientation/consciousness: patient oriented x3 <Xavier Perez MD - Last Filed: 05/26/22 14:41> HENMT Head: Yes normal to inspection, Yes normocephalic and Yes atraumatic <Xavier Perez MD - Last Filed: 05/26/22 14:41> Ears: external ears normal <Xavier Perez MD - Last Filed: 05/26/22 14:41> General nose exam: Normal external nose present <Xavier Perez MD - Last Filed: 05/26/22 14:41> Face and sinus: Yes normal facial exam <Xavier Perez MD - Last Filed: 05/26/22 14:41> Mouth: Normal oral and palatal mucosa present <Xavier Perez MD - Last Filed: 05/26/22 14:41> Eyes Conjunctivae: conjunctivae normal <Xavier Perez MD - Last Filed: 05/26/22 14:41> Sclerae: sclerae normal <Xavier Perez MD - Last Filed: 05/26/22 14:41> Pupils: Equal, round and reactive pupils present <Xavier Perez MD - Last Filed: 05/26/22 14:41> EOM: EOMs intact bilaterally <Xavier Perez MD - Last Filed: 05/26/22 14:41> Chest Chest palpation & inspection: normal inspection of the chest and no tenderness <Xavier Perez MD - Last Filed: 05/26/22 14:41> Resp Effort & Inspection: normal respiratory effort and no cough <Xavier Perez MD - Last Filed: 05/26/22 14:41> Auscultation: clear to auscultation bilaterally <Xavier Perez MD - Last Filed: 05/26/22 14:41> Cardio Rate: regular rate <Xavier Perez MD - Last Filed: 05/26/22 14:41> Rhythm: regular rhythm <Xavier Perez MD - Last Filed: 05/26/22 14:41> GI Inspection: No distended and No visible pulsation <Xavier Perez MD - Last Filed: 05/26/22 14:41> Palpation (GI): Soft to palpation, nontender, no guarding, not rigid, no hernias and no pulsatile masses <Xavier Perez MD - Last Filed: 05/26/22 14:41> Back/Spine/Pelvis Cervical Spine: normal cervical lordosis and cervical ROM normal <Xavier Perez MD - Last Filed: 05/26/22 14:41> Skin General skin exam: no rashes or lesions noted, no mottling and no pallor <Xavier Perez MD - Last Filed: 05/26/22 14:41> Neuro General: patient oriented x3 and CN's II-XI intact bilaterally <Xavier Perez MD - Last Filed: 05/26/22 14:41> Cranial nerves: Yes Equal, round and reactive pupils present <Xavier Perez MD - Last Filed: 05/26/22 14:41> Motor exam (neuro): 5/5 motor strength present throughout <Xavier Perez MD - Last Filed: 05/26/22 14:41> Sensory Exam: No Sensory deficit (Neuro) <Xavier Perez MD - Last Filed: 05/26/22 14:41> Extrem General: Yes normal to inspection and Yes no clubbing, cyanosis or edema <Xavier Perez MD - Last Filed: 05/26/22 14:41> Medications Administered Discontinued Medications Generic Name Dose Route Start Last Admin Trade Name Freq PRN Reason Stop Dose Admin Iohexol 100 ml 05/26/22 15:50 05/26/22 15:50 Iohexol 350 Mg/Ml 100 Ml Infus..Btl IV 05/26/22 15:51 85 ml ONCE ONE Administration <Xavier Perez MD - Last Filed: 05/26/22 14:41> Medications Administered Discontinued Medications Generic Name Dose Route Start Last Admin Trade Name Freq PRN Reason Stop Dose Admin Iohexol 100 ml 05/26/22 15:50 05/26/22 15:50 Iohexol 350 Mg/Ml 100 Ml Infus..Btl IV 05/26/22 15:51 85 ml ONCE ONE Administration <Neo Ayala MD - Last Filed: 05/26/22 18:28> MDM - Abdominal Pain MDM Narrative Medical decision making narrative: Patient's CT scan the abdomen is negative otherwise except for previous thoracic 9 vertebral fracture could be likely the cause for pain which was seen in CT scan done on 05/14 also patient apparently fell at that time etiology not very clear will give pain medication advised to follow with interventional radiology for vertebroplasty no neuro deficits at this time <Neo Ayala MD - Last Filed: 05/26/22 18:28> Lab Data Result diagrams: : 05/26/22 11:42 05/26/22 11:42 <Xavier Perez MD - Last Filed: 05/26/22 14:41> Labs: Lab Results 05/26/22 05/26/22 05/26/22 Range/Units 11:42 11:42 11:42 WBC 6.4 (4.8-10.8) X10*3/uL RBC 4.90 (4.60-5.80) X10*6/uL Hgb 14.6 (14.0-18.0) g/dl Hct 44.2 (42.0-52.0) % MCV 90.2 (80.0-98.0) fL MCH 29.8 (27.0-33.0) pg MCHC 33.0 (31.0-36.0) g/dl RDW 12.8 (11.0-16.0) % Plt Count 229 (160-400) X10*3/uL MPV 9.9 (9.4-12.4) fL Immature Gran % (Auto) 0.2 (0.0-0.4) % Neut % (Auto) 71.2 (45-73) % Lymph % (Auto) 19.2 L (20-40) % [place] % (Auto) 7.8 (2-11) % Eos % (Auto) 1.3 (0-4) % Baso % (Auto) 0.3 (0-2) % Lymph # (Auto) 1.2 (1.2-4.9) X10*3/uL [place] # (Auto) 0.5 (0.1-1.2) X10*3/uL Eos # (Auto) 0.1 (0.0-0.4) X10*3/uL Baso # (Auto) 0.0 (0.0-0.2) X10*3/uL Abs Immat Gran (auto) 0.01 (0.00-0.03) X10*3/uL Absolute Neuts (auto) 4.6 (2.0-8.3) x10*3/uL Absolute Nucleated RBC 0.000 (0.0-0.012) X10*3/uL Nucleated RBC % (auto) 0.0 (0.0-0.2) /100WBC PT (10.0-13.1) SEC INR (0.9-1.1) Sodium 131 L (135-145) mmol/L Potassium 4.0 (3.3-5.1) mmol/L Chloride 104 (96-108) mmol/L Carbon Dioxide 25 (22-29) mmol/L Anion Gap 6 L (12-20) BUN 23 H (9-16) mg/dL Creatinine 1.11 (0.5-1.4) mg/dL Estim Creat Clear Calc 65.3 Estimated GFR > 60 Random Glucose 114 (60-115) mg/dL Calcium 8.7 (8.4-10.2) mg/dL Magnesium 2.0 (1.6-2.6) mg/dL Total Bilirubin 1.4 H (0.0-1.0) mg/dL Direct Bilirubin 0.4 (0.0-0.5) mg/dL AST 13 (5-37) U/L ALT 13 (0-40) U/L Alkaline Phosphatase 91 (39-117) U/L Troponin I High Sens < 3.5 (<3.5-35.0) ng/L Total Protein 7.1 (6.5-8.0) g/dL Albumin 4.0 (3.5-5.0) g/dL Lipase 96 H (8-78) U/L Urine Color Urine Appearance Urine pH (5.0-9.0) Ur Specific [place] (1.005-1.025) Urine Protein (Neg-Trace) mg/dL Urine Glucose (UA) (Negative) mg/dL Urine Ketones (Negative) mg/dL Urine Blood (Negative) Urine Nitrite (Negative) Ur Leukocyte Esterase (Negative) Urine RBC (0-2) /HPF Urine WBC (0-5) /HPF Ur Squamous Epith Cells (0-2) /HPF Urine Bacteria (None Seen) Hyaline Casts (0-2) /LPF Influenza Type A (PCR) (Negative) Influenza Type B (PCR) (Negative) RSV RNA Qual (PCR) (Negative) SARS-CoV-2 RNA (RT-PCR) (Negative) 05/26/22 05/26/22 05/26/22 Range/Units 11:42 11:42 14:42 WBC (4.8-10.8) X10*3/uL RBC (4.60-5.80) X10*6/uL Hgb (14.0-18.0) g/dl Hct (42.0-52.0) % MCV (80.0-98.0) fL MCH (27.0-33.0) pg MCHC (31.0-36.0) g/dl RDW (11.0-16.0) % Plt Count (160-400) X10*3/uL MPV (9.4-12.4) fL Immature Gran % (Auto) (0.0-0.4) % Neut % (Auto) (45-73) % Lymph % (Auto) (20-40) % [place] % (Auto) (2-11) % Eos % (Auto) (0-4) % Baso % (Auto) (0-2) % Lymph # (Auto) (1.2-4.9) X10*3/uL [place] # (Auto) (0.1-1.2) X10*3/uL Eos # (Auto) (0.0-0.4) X10*3/uL Baso # (Auto) (0.0-0.2) X10*3/uL Abs Immat Gran (auto) (0.00-0.03) X10*3/uL Absolute Neuts (auto) (2.0-8.3) x10*3/uL Absolute Nucleated RBC (0.0-0.012) X10*3/uL Nucleated RBC % (auto) (0.0-0.2) /100WBC PT 19.2 H (10.0-13.1) SEC INR 1.6 H (0.9-1.1) Sodium (135-145) mmol/L Potassium (3.3-5.1) mmol/L Chloride (96-108) mmol/L Carbon Dioxide (22-29) mmol/L Anion Gap (12-20) BUN (9-16) mg/dL Creatinine (0.5-1.4) mg/dL Estim Creat Clear Calc Estimated GFR Random Glucose (60-115) mg/dL Calcium (8.4-10.2) mg/dL Magnesium (1.6-2.6) mg/dL Total Bilirubin (0.0-1.0) mg/dL Direct Bilirubin (0.0-0.5) mg/dL AST (5-37) U/L ALT (0-40) U/L Alkaline Phosphatase (39-117) U/L Troponin I High Sens (<3.5-35.0) ng/L Total Protein (6.5-8.0) g/dL Albumin (3.5-5.0) g/dL Lipase (8-78) U/L Urine Color Yellow Urine Appearance Clear Urine pH 5.5 (5.0-9.0) Ur Specific [place] 1.025 (1.005-1.025) Urine Protein Negative (Neg-Trace) mg/dL Urine Glucose (UA) Negative (Negative) mg/dL Urine Ketones Negative (Negative) mg/dL Urine Blood Moderate (2+) H (Negative) Urine Nitrite Negative (Negative) Ur Leukocyte Esterase Negative (Negative) Urine RBC 11-20 H (0-2) /HPF Urine WBC 0-5 (0-5) /HPF Ur Squamous Epith Cells 0-2 (0-2) /HPF Urine Bacteria None Seen (None Seen) Hyaline Casts 0-2 (0-2) /LPF Influenza Type A (PCR) NEGATIVE (Negative) Influenza Type B (PCR) NEGATIVE (Negative) RSV RNA Qual (PCR) NEGATIVE (Negative) SARS-CoV-2 RNA (RT-PCR) NEGATIVE (Negative) <Xavier Perez MD - Last Filed: 05/26/22 14:41> Lab Results 05/26/22 05/26/22 05/26/22 Range/Units 11:42 11:42 11:42 WBC 6.4 (4.8-10.8) X10*3/uL RBC 4.90 (4.60-5.80) X10*6/uL Hgb 14.6 (14.0-18.0) g/dl Hct 44.2 (42.0-52.0) % MCV 90.2 (80.0-98.0) fL MCH 29.8 (27.0-33.0) pg MCHC 33.0 (31.0-36.0) g/dl RDW 12.8 (11.0-16.0) % Plt Count 229 (160-400) X10*3/uL MPV 9.9 (9.4-12.4) fL Immature Gran % (Auto) 0.2 (0.0-0.4) % Neut % (Auto) 71.2 (45-73) % Lymph % (Auto) 19.2 L (20-40) % [place] % (Auto) 7.8 (2-11) % Eos % (Auto) 1.3 (0-4) % Baso % (Auto) 0.3 (0-2) % Lymph # (Auto) 1.2 (1.2-4.9) X10*3/uL [place] # (Auto) 0.5 (0.1-1.2) X10*3/uL Eos # (Auto) 0.1 (0.0-0.4) X10*3/uL Baso # (Auto) 0.0 (0.0-0.2) X10*3/uL Abs Immat Gran (auto) 0.01 (0.00-0.03) X10*3/uL Absolute Neuts (auto) 4.6 (2.0-8.3) x10*3/uL Absolute Nucleated RBC 0.000 (0.0-0.012) X10*3/uL Nucleated RBC % (auto) 0.0 (0.0-0.2) /100WBC PT (10.0-13.1) SEC INR (0.9-1.1) Sodium 131 L (135-145) mmol/L Potassium 4.0 (3.3-5.1) mmol/L Chloride 104 (96-108) mmol/L Carbon Dioxide 25 (22-29) mmol/L Anion Gap 6 L (12-20) BUN 23 H (9-16) mg/dL Creatinine 1.11 (0.5-1.4) mg/dL Estim Creat Clear Calc 65.3 Estimated GFR > 60 Random Glucose 114 (60-115) mg/dL Calcium 8.7 (8.4-10.2) mg/dL Magnesium 2.0 (1.6-2.6) mg/dL Total Bilirubin 1.4 H (0.0-1.0) mg/dL Direct Bilirubin 0.4 (0.0-0.5) mg/dL AST 13 (5-37) U/L ALT 13 (0-40) U/L Alkaline Phosphatase 91 (39-117) U/L Troponin I High Sens < 3.5 (<3.5-35.0) ng/L Total Protein 7.1 (6.5-8.0) g/dL Albumin 4.0 (3.5-5.0) g/dL Lipase 96 H (8-78) U/L Urine Color Urine Appearance Urine pH (5.0-9.0) Ur Specific [place] (1.005-1.025) Urine Protein (Neg-Trace) mg/dL Urine Glucose (UA) (Negative) mg/dL Urine Ketones (Negative) mg/dL Urine Blood (Negative) Urine Nitrite (Negative) Ur Leukocyte Esterase (Negative) Urine RBC (0-2) /HPF Urine WBC (0-5) /HPF Ur Squamous Epith Cells (0-2) /HPF Urine Bacteria (None Seen) Hyaline Casts (0-2) /LPF Influenza Type A (PCR) (Negative) Influenza Type B (PCR) (Negative) RSV RNA Qual (PCR) (Negative) SARS-CoV-2 RNA (RT-PCR) (Negative) 05/26/22 05/26/22 05/26/22 Range/Units 11:42 11:42 14:42 WBC (4.8-10.8) X10*3/uL RBC (4.60-5.80) X10*6/uL Hgb (14.0-18.0) g/dl Hct (42.0-52.0) % MCV (80.0-98.0) fL MCH (27.0-33.0) pg MCHC (31.0-36.0) g/dl RDW (11.0-16.0) % Plt Count (160-400) X10*3/uL MPV (9.4-12.4) fL Immature Gran % (Auto) (0.0-0.4) % Neut % (Auto) (45-73) % Lymph % (Auto) (20-40) % [place] % (Auto) (2-11) % Eos % (Auto) (0-4) % Baso % (Auto) (0-2) % Lymph # (Auto) (1.2-4.9) X10*3/uL [place] # (Auto) (0.1-1.2) X10*3/uL Eos # (Auto) (0.0-0.4) X10*3/uL Baso # (Auto) (0.0-0.2) X10*3/uL Abs Immat Gran (auto) (0.00-0.03) X10*3/uL Absolute Neuts (auto) (2.0-8.3) x10*3/uL Absolute Nucleated RBC (0.0-0.012) X10*3/uL Nucleated RBC % (auto) (0.0-0.2) /100WBC PT 19.2 H (10.0-13.1) SEC INR 1.6 H (0.9-1.1) Sodium (135-145) mmol/L Potassium (3.3-5.1) mmol/L Chloride (96-108) mmol/L Carbon Dioxide (22-29) mmol/L Anion Gap (12-20) BUN (9-16) mg/dL Creatinine (0.5-1.4) mg/dL Estim Creat Clear Calc Estimated GFR Random Glucose (60-115) mg/dL Calcium (8.4-10.2) mg/dL Magnesium (1.6-2.6) mg/dL Total Bilirubin (0.0-1.0) mg/dL Direct Bilirubin (0.0-0.5) mg/dL AST (5-37) U/L ALT (0-40) U/L Alkaline Phosphatase (39-117) U/L Troponin I High Sens (<3.5-35.0) ng/L Total Protein (6.5-8.0) g/dL Albumin (3.5-5.0) g/dL Lipase (8-78) U/L Urine Color Yellow Urine Appearance Clear Urine pH 5.5 (5.0-9.0) Ur Specific [place] 1.025 (1.005-1.025) Urine Protein Negative (Neg-Trace) mg/dL Urine Glucose (UA) Negative (Negative) mg/dL Urine Ketones Negative (Negative) mg/dL Urine Blood Moderate (2+) H (Negative) Urine Nitrite Negative (Negative) Ur Leukocyte Esterase Negative (Negative) Urine RBC 11-20 H (0-2) /HPF Urine WBC 0-5 (0-5) /HPF Ur Squamous Epith Cells 0-2 (0-2) /HPF Urine Bacteria None Seen (None Seen) Hyaline Casts 0-2 (0-2) /LPF Influenza Type A (PCR) NEGATIVE (Negative) Influenza Type B (PCR) NEGATIVE (Negative) RSV RNA Qual (PCR) NEGATIVE (Negative) SARS-CoV-2 RNA (RT-PCR) NEGATIVE (Negative) <Neo Ayala MD - Last Filed: 05/26/22 18:28> Discharge Plan Discharge Clinical Impression: Compression fracture of thoracic vertebra <Xavier Perez MD - Last Filed: 05/26/22 14:41> Patient Disposition: Home, Self-Care <Xavier Perez MD - Last Filed: 05/26/22 14:41> Instructions: Vertebral Compression Fracture (ED) <Xavier Perez MD - Last Filed: 12/04/22 14:41> Additional Instructions: Take pain medication as advised Follow-up with interventional radiologist for vertebroplasty as provided Follow with PCP <Xavier Perez MD - Last Filed: 05/26/22 14:41> Prescriptions: New oxycodone 5 mg tablet 5 mg PO Q6H PRN (Reason: pain) Qty: 20 0RF Rx Instructions: Partial Fill upon patient request. No Action albuterol sulfate [Ventolin HFA] 90 mcg/actuation HFA aerosol inhaler 2 inh inhalation Q6H PRN (Reason: shortness of breath or wheezing) 30 Days Qty: 18 0RF Trelegy Ellipta 200-62.5-25 mcg blister with device 1 inh inhalation DAILY 30 Days Qty: 60 2RF ibuprofen 600 mg tablet 600 mg PO Q8H PRN (Reason: pain) 14 Days Qty: 30 0RF Linzess 145 mcg capsule 145 mcg PO DAILY Qty: 60 4RF dexlansoprazole 60 mg capsule,biphase delayed releas 60 mg PO DAILY Qty: 90 1RF metoclopramide HCl 10 mg tablet 10 mg PO QIDACHS Qty: 120 3RF cyclobenzaprine 5 mg tablet 5 mg PO TID PRN (Reason: back pain) 7 Days Qty: 21 0RF carvedilol 25 mg Tablet 25 mg PO BID Qty: 60 0RF Protocol: Hold for SBP/HR < HOLD for SBP < : 90 HOLD for HR < : 60 Eliquis 5 mg tablet 5 mg PO BID Qty: 60 0RF trazodone 100 mg tablet 100 - 200 mg PO BEDTIME PRN (Reason: Sleep) quetiapine 300 mg tablet 300 mg PO BEDTIME simvastatin 20 mg tablet 20 mg PO BEDTIME latanoprost 0.005 % drops 1 drp ophthalmic (eye) BEDTIME sacubitril-valsartan 49-51 mg tablet 1 tab PO BID senna 8.6 mg capsule 17.2 mg PO DAILY <Xavier Perez MD - Last Filed: 05/26/22 14:41> Referrals: Wil Delgado MD [Physician] - 1 week (Vertebral compression fracture) <Xavier Perez MD - Last Filed: 05/26/22 14:41>
[2022-05-26 14:56] LABS: Appearance Urine Clear; Color Urine Yellow; Glucose Urine UA Negative (Negative); Leukocyte Esterase Urine Negative (Negative); Nitrite Urine Negative (Negative); PH 5.5 (5.0-9.0); Specific Gravity - Urine 1.025 (1.005-1.025); UMIC TRIGGER UACC YES; Urine Blood Moderate (2+) (Negative); Urine Ketones Negative (Negative); Urine Protein Negative (Neg-Trace)
[2022-05-26 15:02] LABS: Bacteria Urine None Seen (None Seen); Hyaline Casts Urine 0-2 /LPF (0-2); Squamous Epithelial Cell Urine 0-2 /HPF (0-2); WBC Urine 0-5 /HPF (0-5)
--- NOTE | 2022-05-26 15:06 | PC.NURSE ---
pt alert and oriented. complains of upper abdominal pain radiating to the back. IV in place.
[2022-05-26] MEDS: iohexoL 350 MG/ML 100 ML INFUS..BTL IV (15:50)
--- NOTE | 2022-05-26 15:58 | PC.NURSE ---
pt alert and oriented. complains of RUQ pain 11/30. denies any other symptoms. VS wnl
[2022-05-26] MEDS: oxyCODONE HCl Immed Release 5 MG TABLET 10 MG PO (18:40)
[2022-05-26] MEDS: Lidocaine 4 % Patch ADH..PATCH 1 PATCH TRANSDERMA (18:41)
[2022-05-26 18:48] VITALS: BP 101/74; PULSE 74; RESP 16; O2SAT 94
== END 2022-05-26 18:51 | disposition home or self-care (01) ==
PROVIDERS: Nurse Practitioner Family; Emergency Provider Emergency Medicine; PCP Internal Medicine
DX: M48.54XA Collapsed vertebra, not elsewhere classified, thoracic region, initial encounter for fracture (principal); R10.10 Upper abdominal pain, unspecified; R05.9 Cough, unspecified; Z20.822 Contact with and (suspected) exposure to COVID-19; Z87.891 Personal history of nicotine dependence; Z79.899 Other long term (current) drug therapy
CPT/HCPCS: 0241U; 36415; 71046; 74177; 80048; 80076; 81001; 83690; 83735; 84484; 85025; 85610; 93005; 99284; Q9967

== ENCOUNTER 2022-05-29 13:33 | Inpatient (IN) | payer MEDICARE, MEDICAID, SELFPAY ==
--- NOTE | ~2022-05-29 | CT_ITS ---
EXAMINATION: CT CHEST ANGIOGRAM PE PROTOCOL CLINICAL INFORMATION: , Reason for Exam unexplained hypotension adnd hypoxia COMPARISON: None TECHNIQUE: Volumetric imaging was performed through the chest. Reformatted coronal and sagittal imaging was performed. 3-D MIP images performed at a dedicated separate workstation. This CT examination was performed using dose optimization techniques as appropriate, variously including the following: *Automated exposure control *Adjustment of mA and/or kV according to patient size (this includes techniques or standardized protocols for targeted exams where dose is matched to indication/reason for exam; i.e. extremities or head) *Use of iterative reconstruction technique CONTRAST: 65 mL Omnipaque 350 injected DLP: 225 FINDINGS: PULMONARY ARTERIES: There is proper opacification of the pulmonary artery and its main branches. No CT evidence of pulmonary emboli. LINES/TUBES: None LUNGS: Lung Parenchyma: There is severe gonzalez lobar pulmonary emphysema. Lung Nodules:Nodular opacity in the right upper lobe measure 1.8 x 0.7 cm surrounded by emphysematous lung could be atelectasis, cannot rule out underlying pathologic process, image 141 series 7, there is airspace opacification possibly consolidation infiltrate right lower lobe. There is 8mm nodule middle lobe image 208 series 7. There are several other scattered small nodular opacities 4 mm or less. AIRWAYS: Trachea and bronchi are normal. PLEURA: No pleural effusion or pneumothorax. MEDIASTINUM AND CADEN: The visualized thyroid gland is unremarkable. No mediastinal, hilar or axillary lymphadenopathy. There is fullness at the the gastroesophageal junction although nonspecific, commonly found to be nondistended sliding hiatal hernia, this can be further evaluated with barium esophagogram if clinically indicated. VESSELS: Ascending aorta is aneurysmal 4.5 cm unchanged. HEART AND PERICARDIUM: Heart is normal in size. There is no pericardial effusion. There are coronary calcifications. VISUALIZED ABDOMEN: Unremarkable BONES: Compression fracture mid dorsal vertebra has progressed, further compression loss of vertebral heights. CT/CT angio chest PE protocol IMPRESSION: * No CT evidence of pulmonary emboli. * Severe gonzalez lobar pulmonary emphysema. * There is airspace opacification possibly consolidation right lower lobe. * There are nodular opacities in the right upper lobe, the largest 1.8 cm, although probably atelectatic lung between emphysematous changes, especially given the rapid development since prior study of April 2022, cannot rule out underlying pathologic process. Attention to follow-up CT scan in 3 months advised. * Compression fracture mid dorsal vertebra has progressed, further compression loss of vertebral heights. * Aneurysmal dilatation of ascending aorta 4.5 cm, unchanged.
--- NOTE | ~2022-05-29 | XR_ITS ---
EXAMINATION: XR CHEST CLINICAL INFORMATION: Chest pain COMPARISON: 05/26/2022 TECHNIQUE: Frontal view of the chest was obtained. FINDINGS: No focal consolidation, pulmonary edema, or pleural effusion. Upper lobe emphysematous changes. Stable cardiomediastinal silhouette. XR/XR chest 1V IMPRESSION: No acute pulmonary disease.
[2022-05-29 14:30] VITALS: BP 73/51; PULSE 87; RESP 18; TEMP 36.6; O2SAT 95; BMI 23.0
--- NOTE | 2022-05-29 14:40 | ECG_ITS ---
Test Reason : sob Blood Pressure : / mmHG Vent. Rate : 094 BPM Atrial Rate : 000 BPM P-R Int : 000 ms QRS Dur : 088 ms QT Int : 348 ms P-R-T Axes : 000 057 004 degrees QTc Int : 435 ms Atrial fibrillation Nonspecific T wave abnormality Abnormal ECG When compared with ECG of 26-MAY-2022 11:32, Atrial fibrillation has replaced Sinus rhythm Nonspecific T wave abnormality now evident in Inferior leads Nonspecific T wave abnormality now evident in Anterior leads Referred By: Thu Quiroz Electronically Signed By:ZULEMA JORDAN MD
--- NOTE | 2022-05-29 14:44 | ED_ITS ---
HPI - SOB/Dyspnea General Chief Complaint: Dyspnea <Thu Quiroz MD - Last Filed: 05/29/22 14:45> Stated Complaint: Back Pain Clavicle Fx R Leg Pain <Thu Quiroz MD - Last Filed: 05/29/22 14:45> Time Seen by Provider: 05/29/22 16:26 <Thu Quiroz MD - Last Filed: 05/29/22 14:45> Source: patient <Neo Ayala MD - Last Filed: 05/30/22 00:37> Mode of arrival: ambulatory <Neo Ayala MD - Last Filed: 05/30/22 00:37> Limitations: no limitations <Neo Ayala MD - Last Filed: 05/30/22 00:37> History of Present Illness HPI Narrative: Patient history of nonischemic cardiomyopathy paroxysmal atrial fibrillation COPD and hypertension on Eliquis and carvedilol was seen here 2 days ago for upper back pain is seen as a compression fracture T10 comes here is feeling short of breath and weak in triage patient blood pressure noticed to be low 73/51 saturating 90s at room air <Neo Ayala MD - Last Filed: 05/30/22 00:37> Related Data Home Medications: Home Medications Medication Instructions Recorded Confirmed latanoprost 0.005 % eye drops 1 drp ophthalmic (eye) BEDTIME 03/27/20 05/29/22 quetiapine 300 mg tablet 300 mg PO BEDTIME 03/27/20 05/29/22 simvastatin 20 mg tablet 20 mg PO BEDTIME 03/27/20 05/29/22 trazodone 100 mg tablet 100 - 200 mg PO BEDTIME PRN Sleep 03/27/20 05/29/22 sacubitril 49 mg-valsartan 51 mg 1 tab PO BID 01/04/21 05/29/22 tablet sennosides 8.6 mg capsule (senna) 17.2 mg PO DAILY 02/13/22 05/29/22 Previous Rx's Medication Instructions Recorded Ventolin HFA 90 mcg/actuation 2 inh inhalation Q6H PRN shortness 02/27/22 aerosol inhaler (albuterol sulfate) of breath or wheezing 30 days #18 grams Trelegy Ellipta 200 mcg-62.5 1 inh inhalation DAILY 30 days #60 04/06/22 mcg-25 mcg powder for inhalation ea (uknbfjidchu-eogevfmzs-zznewzwf) ibuprofen 600 mg tablet 600 mg PO Q8H PRN pain 14 days #30 04/19/22 tabs cyclobenzaprine 5 mg tablet 5 mg PO TID PRN back pain 7 days 04/29/22 #21 tabs apixaban 5 mg tablet (Eliquis) 5 mg PO BID #60 tabs 05/06/22 carvedilol 25 mg tablet 25 mg PO BID #60 tabs 05/06/22 dexlansoprazole 60 mg 60 mg PO DAILY #90 caps 05/22/22 capsule,biphase delayed release linaclotide 145 mcg capsule 145 mcg PO DAILY #60 caps 05/22/22 (Linzess) metoclopramide HCl 10 mg tablet 10 mg PO QIDACHS #120 tabs 05/22/22 lidocaine 4 % topical patch 1 patch topical DAILY PRN pain #30 05/26/22 ea oxycodone 5 mg tablet 5 mg PO Q6H PRN pain #20 tabs 05/26/22 <Thu Quiroz MD - Last Filed: 05/29/22 14:45> Allergies/Adverse Reactions: Allergies Allergy/AdvReac Type Severity Reaction Status Date / Time No Known Allergies Allergy Verified 05/29/22 14:29 [No Known Allergies*] <Thu Quiroz MD - Last Filed: 05/29/22 14:45> Review of Systems Review of Systems: Yes all other systems are reviewed and are negative <Neo Ayala MD - Last Filed: 05/30/22 00:37> [facility] Past Medical History Medical History: Medical History Constipation COPD (chronic obstructive pulmonary disease) COPD (chronic obstructive pulmonary disease) Dyspnea Hyperlipidemia Hypertension Personal history of nicotine dependence Pulmonary nodules Tubular adenoma of colon <Thu Quiroz MD - Last Filed: 05/29/22 14:45> Surgical History: Surgical History History of appendectomy History of gastric surgery History of surgery on left wrist (~03/21/10) Hx of cataract surgery (~07/02/10) Hx of colonoscopy (~02/13/06) Hx of endoscopy <Thu Quiroz MD - Last Filed: 05/29/22 14:45> Family History Family History: Family History Mother Renal failure Father History of depression Brother Colon cancer <Thu Quiroz MD - Last Filed: 05/29/22 14:45> Social History Social History: Social History Household Members: None Housing: Apartment Do you presently have visiting nurse or other home services: No Alcohol intake: former Patient Tobacco Use Status: Former Tobacco user Tobacco use type: Cigarette Cigarette Packs Per Day: 0.5 Years Smoked: 51 (onset 14yo) Smoked in Last 30 Days: Yes e-Cigarette/Vaping Use: Former Use Second Hand Smoke Exposure: No Use of substances other than those prescribed or required for medical reasons: No Advance Directives: No Advance Directives Information Provided: Yes service: No Current occupational status: unemployed <Thu Quiroz MD - Last Filed: 05/29/22 14:45> Physical Exam Vital Signs: Vital Signs: Last Vital Signs Temp 97.6 F 05/29/22 17:05 Pulse 74 05/29/22 19:31 Resp 15 05/29/22 19:31 BP 96/59 L 05/29/22 19:31 Pulse Ox 97 05/29/22 20:00 O2 Del Method 05/29/22 20:00 O2 Flow Rate 2 05/29/22 20:00 BMI result Body Mass Index 23.0 <Thu Quiroz MD - Last Filed: 05/29/22 14:45> Vital Signs: Last Vital Signs Temp 97.6 F 05/29/22 17:05 Pulse 74 05/29/22 19:31 Resp 15 05/29/22 19:31 BP 96/59 L 05/29/22 19:31 Pulse Ox 97 05/29/22 20:00 O2 Del Method 05/29/22 20:00 O2 Flow Rate 2 05/29/22 20:00 BMI result Body Mass Index 23.0 <Neo Ayala MD - Last Filed: 05/30/22 00:37> Appearance: Alert. Oriented X3. mod resp distress. Eyes: PERRLA, No Nystagmus ENT: Pharynx normal. Oral Mucosa moist Neck: Normal inspection. Neck supple. CVS: Irregularly irregular heart rate no murmur rub or gallop. Pulses normal. Respiratory:modrespiratory distress. decrease air entry b/ll, no wheezing/rales/rhonchi Abdomen: Soft and nontender. Bowel sounds are present, no mass palpable, no CVA tenderness Skin: Skin warm and dry. Normal skin color. Normal skin turgor. Extremities: No lower extremity edema. No calf tenderness Neuro: Oriented X 3. No motor deficit. No sensory deficit.No cerebellar signs , cranial nerves II-XII intact <Neo Ayala MD - Last Filed: 05/30/22 00:37> Course Course Course Narrative: adria Patient is a 67 year old male presents today with having generalized malaise shortness of breath. History of congestive heart failure. Feels very weak tired. Has a history of back pain. Patient was seen in the emergency department on June 15. At that time had a CT scan of the abdomen pelvis done. Positive for having a compression fracture. Still has a back pain which is chronic. Denies any leg swelling. Feels very tired very weak. Patient denies any diaphoresis. Seems to be worse with exertion. Patient is from home. Patient's blood pressure is low at approximately 80/40. Labs EKG troponin BMP ordered. COVID ordered. Cannot rule out the possibility of PE a D-dimer was ordered. Patient to be brought back immediately. <Thu Quiroz MD - Last Filed: 05/29/22 14:45> Medications Administered Generic Name Dose Route Start Last Admin Trade Name Freq PRN Reason Stop Dose Admin Acetaminophen 650 mg 05/29/22 23:13 05/30/22 00:27 Acetaminophen 325 Mg Tablet PO 650 mg Q6H PRN Administration Pain, Mild (Pain Scale 1-3) Quetiapine Fumarate 300 mg 05/29/22 23:50 05/30/22 00:27 Quetiapine Fumarate 300 Mg Tablet PO 300 mg BEDTIME YESSENIA Administration Discontinued Medications Generic Name Dose Route Start Last Admin Trade Name Freq PRN Reason Stop Dose Admin Dexamethasone Sodium Phosphate 10 mg 05/29/22 21:53 12/07/22 22:51 Dexamethasone Sod Phosphate 10 Mg/Ml Vial IVPUSH 05/29/22 21:54 10 mg ONCE ONE Administration Sodium Chloride 1,000 mls @ 999 mls/hr 05/29/22 14:45 05/29/22 16:30 Ns IV 05/29/22 15:45 Infused .Q1H1M YESSENIA Infusion Sodium Chloride 1,000 mls @ 999 mls/hr 05/29/22 16:47 05/29/22 19:15 Ns IV 05/29/22 17:47 Infused .Q1H1M ONE Infusion Iohexol 100 ml 05/29/22 17:29 05/29/22 17:29 Iohexol 350 Mg/Ml 100 Ml Infus..Btl IV 05/29/22 17:30 65 ml ONCE ONE Administration <Thu Quiroz MD - Last Filed: 05/29/22 14:45> Medications Administered Generic Name Dose Route Start Last Admin Trade Name Freq PRN Reason Stop Dose Admin Acetaminophen 650 mg 05/29/22 23:13 05/30/22 00:27 Acetaminophen 325 Mg Tablet PO 650 mg Q6H PRN Administration Pain, Mild (Pain Scale 1-3) Quetiapine Fumarate 300 mg 05/29/22 23:50 05/30/22 00:27 Quetiapine Fumarate 300 Mg Tablet PO 300 mg BEDTIME YESSENIA Administration Discontinued Medications Generic Name Dose Route Start Last Admin Trade Name Freq PRN Reason Stop Dose Admin Dexamethasone Sodium Phosphate 10 mg 05/29/22 21:53 05/29/22 22:51 Dexamethasone Sod Phosphate 10 Mg/Ml Vial IVPUSH 05/29/22 21:54 10 mg ONCE ONE Administration Sodium Chloride 1,000 mls @ 999 mls/hr 05/29/22 14:45 05/29/22 16:30 Ns IV 05/29/22 15:45 Infused .Q1H1M YESSENIA Infusion Sodium Chloride 1,000 mls @ 999 mls/hr 05/29/22 16:47 05/29/22 19:15 Ns IV 05/29/22 17:47 Infused .Q1H1M ONE Infusion Iohexol 100 ml 05/29/22 17:29 05/29/22 17:29 Iohexol 350 Mg/Ml 100 Ml Infus..Btl IV 05/29/22 17:30 65 ml ONCE ONE Administration <Neo Ayala MD - Last Filed: 05/30/22 00:37> Medical Decision Making Medical Decision Making MDM Narrative: Patient with compression fracture T10 etiology not very clear, came with hypertension hypoxia CT chest negative for PE has emphysema likely the cause for hypoxia hypertension days no signs of infection body WBC count normal lactic acid normal will give IV fluids and Decadron for possible addisonian crisis <Neo Ayala MD - Last Filed: 05/30/22 00:37> Differential Diagnoses: Differential diagnosis (Bacterial infection/UTI/pneumonia/pneumothorax/ACS) <Neo Ayala MD - Last Filed: 05/30/22 00:37> Consideration of admission/observation: Consideration of Admission/Observation <Neo Ayala MD - Last Filed: 05/30/22 00:37> Lab Attestation: I reviewed the patient's lab results. <Neo Ayala MD - Last Filed: 05/30/22 00:37> Independent interpretation of EKG, rhythm strip, radiology study: Independent interp EKG,rhythm strip, radiology study I performed an independent interpretation of the: EKG My interpretation is Atrial fibrillation heart rate 94 beats per minute nonspecific T-wave changes no acute ST-T changes no acute ischemia <Neo Ayala MD - Last Filed: 05/30/22 00:37> Discharge Plan Discharge Clinical Impression: Compression fracture of thoracic spine, non-traumatic, Hypotension <Thu Quiroz MD - Last Filed: 05/29/22 14:45> Patient Disposition: Admitted As Inpatient <Thu Quiroz MD - Last Filed: 05/29/22 14:45>
[2022-05-29] MEDS: 0.9 % Sodium Chloride 1,000 ML 999 ML IV ×2 (15:17→17:43)
[2022-05-29 15:18] VITALS: BP 89/61; PULSE 97; RESP 17; O2SAT 94
[2022-05-29 15:21] LABS: MANUAL DIFF FLAG NO
[2022-05-29 15:22] LABS: Basophils Percent Auto 0.1 % (0-2); Eosinophils Absolute Auto 0.1 X10*3/uL (0.0-0.4); Eosinophils Percent Auto 0.7 % (0-4); Hematocrit 43.1 % (42.0-52.0); Hemoglobin 14.4 g/dl (14.0-18.0); Imm Gran Abs Auto 0.03 X10*3/uL (0.00-0.03); Imm Gran Pct Auto 0.3 % (0.0-0.4); Lymphocytes Absolute Auto 1.4 X10*3/uL (1.2-4.9); Lymphocytes Percent Auto 14.9 % (20-40); Mean Corpuscular HGB Conc 33.4 g/dl (31.0-36.0); Mean Corpuscular Hemoglobin 30.5 pg (27.0-33.0); Mean Corpuscular Volume 91.3 fL (80.0-98.0); Mean Platelet Volume 10.7 fL (9.4-12.4); Monocytes Absolute Auto 0.7 X10*3/uL (0.1-1.2); Monocytes Percent Auto 7.2 % (2-11); Neutrophils Absolute Auto 7.1 x10*3/uL (2.0-8.3); Neutrophils Percent Auto 76.8 % (45-73); Platelet Count 197 X10*3/uL (160-400); Red Blood Count 4.72 X10*6/uL (4.60-5.80); White Blood Count 9.2 X10*3/uL (4.8-10.8)
[2022-05-29 15:28] LABS: INTERNATIONAL NORM RATIO 1.4 (0.9-1.1); Prothrombin Time 16.2 SEC (10.0-13.1)
[2022-05-29 15:30] LABS: D Dimer High Sensitivity 241 NG/ML
[2022-05-29 15:41] LABS: Alanine Aminotransferase 14 U/L (0-40); Albumin Level 3.7 g/dL (3.5-5.0); Alkaline Phosphatase 77 U/L (39-117); Anion Gap 11 (12-20); Aspartate Amino Transferase 23 U/L (5-37); Bilirubin Direct 0.4 mg/dL (0.0-0.5); Bilirubin Total 1.1 mg/dL (0.0-1.0); Blood Urea Nitrogen 36 mg/dL (9-16); Calcium 8.4 mg/dL (8.4-10.2); Carbon Dioxide 26 mmol/L (22-29); Chloride 103 mmol/L (96-108); Creatinine Clr Calc Pharmacy 52.8; Estimated Glomerular Filt Rate 48; Glucose Random 104 mg/dL (60-115); Potassium 4.1 mmol/L (3.3-5.1); Sodium 136 mmol/L (135-145); Total Protein 6.6 g/dL (6.5-8.0)
[2022-05-29 15:42] LABS: B Type Natriuretic Peptide 226 pg/mL (<100); Troponin-I High Sensitivity < 3.5 ng/L (<3.5-35.0)
[2022-05-29 16:03] LABS: Influenza A PCR NEGATIVE (Negative); Influenza B PCR NEGATIVE (Negative); Resp Syncy Virus RNA Qual PCR NEGATIVE (Negative); SARS COV2 PCR INHOUSE NEGATIVE (Negative)
[2022-05-29 17:05] VITALS: BP 91/65; PULSE 100; RESP 16; TEMP 36.4; O2SAT 95
[2022-05-29] MEDS: iohexoL 350 MG/ML 100 ML INFUS..BTL IV (17:29)
[2022-05-29 18:08] LABS: Lactic Acid 0.7 mmol/L (0.5-2.0)
[2022-05-29 19:31] VITALS: BP 96/59; PULSE 74; RESP 15; O2SAT 97
[2022-05-29 19:38] VITALS: O2SAT 91
[2022-05-29 20:00] VITALS: O2SAT 97
--- NOTE | 2022-05-29 20:05 | PC.NURSE ---
pt a&ox3, denies any chest pain at this time, attempted to titrate O2, pt sating 80-91 on RA, O2 increased back up to 95-97 on 2L. pt pending admission.
--- NOTE | 2022-05-29 21:25 | PHA.MEDREC ---
Pharmacy Consult ? Medication Reconciliation Pharmacy has completed the medication reconciliation.
--- NOTE | 2022-05-29 22:46 | PC.NURSE ---
Assumed care of pt. at 1900. Pt. resting in bed at that time. Pt. up to use the urinal in room. Pt. pending admission.
[2022-05-29] MEDS: dexAMETHasone sod phosphate 10 MG/ML VIAL IVPUSH (22:51)
--- NOTE | 2022-05-29 22:55 | P.HPHOSP_ITS ---
History of Present Illness Date of Service: 05/29/22 Chief Complaint: Dyspnea This is a 67-year-old male with pertinent history of nonischemic cardiomyopathy, paroxysmal atrial fibrillation on Eliquis, COPD not on home oxygen, mixed hyperlipidemia, essential hypertension, gastroesophageal reflux disease, mood disorder who presents to the emergency department for evaluation of dyspnea. Patient states he has been having dyspnea, worse with exertion that has been ongoing for a while. No upper respiratory tract symptoms. No fever, chills, cough. Does not think he had wheezing. Admits orthopnea and PND. Endorses fatigue and malaise. Patient presented to the ER in April for nontraumatic intermittent low back pain. He was admitted for AFib with RVR. Patient presented again on 05/26 and was referred to Interventional Radiology as an outpatient for vertebroplasty as imaging revealed subacute compression fracture of T9. Patient states the back pain has been ongoing and progressive. In the emergency department today, CTA with progression of mid dorsal compression fracture. Patient denies chest discomfort, palpitations, abdominal pain, changes in urinary or bowel habits. He was found to be hypertensive in the ER and given IV Decadron. Review of Systems Constitutional: Constitutional: Reports fatigue and Reports malaise Cardiovascular: Cardiovascular: Reports orthopnea and Reports paroxysmal nocturnal dyspnea Gastrointestinal: Gastrointestinal: Reports no additional gastrointestinal complaints Genitourinary: Genitourinary: Reports no additional male genitourinary complaints Musculoskeletal: Comments: Back pain Endocrine: Endocrine: Reports fatigue [facility] Medical History Constipation COPD (chronic obstructive pulmonary disease) COPD (chronic obstructive pulmonary disease) Dyspnea Hyperlipidemia Hypertension Personal history of nicotine dependence Pulmonary nodules Tubular adenoma of colon Family History Mother Renal failure Father History of depression Brother Colon cancer Surgical History History of appendectomy History of gastric surgery History of surgery on left wrist (~03/21/10) Hx of cataract surgery (~07/02/10) Hx of colonoscopy (~02/13/06) Hx of endoscopy Social History Household Members: None Housing: Apartment Do you presently have visiting nurse or other home services: No Alcohol intake: former Patient Tobacco Use Status: Former Tobacco user Tobacco use type: Cigarette Cigarette Packs Per Day: 0.5 Years Smoked: 51 (onset 14yo) Smoked in Last 30 Days: Yes e-Cigarette/Vaping Use: Former Use Second Hand Smoke Exposure: No Use of substances other than those prescribed or required for medical reasons: No Advance Directives: No Advance Directives Information Provided: Yes service: No Current occupational status: unemployed Meds Allergies Allergy/AdvReac Type Severity Reaction Status Date / Time No Known Allergies Allergy Verified 05/29/22 14:29 [No Known Allergies*] Home Medications Medication Instructions Recorded Confirmed Last Taken Type latanoprost 0.005 % eye drops 1 drp ophthalmic (eye) BEDTIME 03/27/20 05/29/22 Unknown History quetiapine 300 mg tablet 300 mg PO BEDTIME 03/27/20 05/29/22 Unknown History simvastatin 20 mg tablet 20 mg PO BEDTIME 03/27/20 05/29/22 Unknown History trazodone 100 mg tablet 100 - 200 mg PO BEDTIME PRN Sleep 03/27/20 05/29/22 U nknown History sacubitril 49 mg-valsartan 51 mg 1 tab PO BID 01/04/21 05/29/22 Unknown History tablet sennosides 8.6 mg capsule (senna) 17.2 mg PO DAILY 02/13/22 05/29/22 Unknown History Physical Exam Vital Signs and Narrative: Vital Signs: Last Vital Signs Temp 97.6 F 05/29/22 17:05 Pulse 74 05/29/22 19:31 Resp 15 05/29/22 19:31 BP 96/59 L 05/29/22 19:31 Pulse Ox 97 05/29/22 20:00 O2 Del Method 05/29/22 20:00 O2 Flow Rate 2 05/29/22 20:00 BMI result Body Mass Index 23.0 Middle-aged male lying in bed in no distress Neck supple, no JVD Irregularly irregular, S1-S2 heard Decreased breath sounds without wheezing or crackles Abdomen soft nontender, no guarding, no rigidity Patient is awake, alert and oriented to self, place, time and person ; no focal motor deficit Extremity: Thoracic spinal tenderness present Psych: Normal mood No pedal edema Results Labs CBC and Chem 7: 05/29/22 15:16 05/29/22 15:16 Labs: Laboratory Results - last 24 hr 05/29/22 05/29/22 05/29/22 15:15 15:16 15:16 MCV 91.3 MCH 30.5 MCHC 33.4 RDW 13.0 Plt Count 197 MPV 10.7 Immature Gran % (Auto) 0.3 Neut % (Auto) 76.8 H Lymph % (Auto) 14.9 L [place] % (Auto) 7.2 Eos % (Auto) 0.7 Baso % (Auto) 0.1 Lymph # (Auto) 1.4 [place] # (Auto) 0.7 Eos # (Auto) 0.1 Baso # (Auto) 0.0 Abs Immat Gran (auto) 0.03 Absolute Neuts (auto) 7.1 Absolute Nucleated RBC 0.000 Nucleated RBC % (auto) 0.0 PT 16.2 H INR 1.4 H D-Dimer High Sensitivty Anion Gap Estim Creat Clear Calc Estimated GFR Random Glucose Lactic Acid Calcium Total Bilirubin Direct Bilirubin AST ALT Alkaline Phosphatase Troponin I High Sens B-Natriuretic Peptide Total Protein Albumin Influenza Type A (PCR) NEGATIVE Influenza Type B (PCR) NEGATIVE RSV RNA Qual (PCR) NEGATIVE SARS-CoV-2 RNA (RT-PCR) NEGATIVE 05/29/22 05/29/22 05/29/22 15:16 15:16 15:16 MCV MCH MCHC RDW Plt Count MPV Immature Gran % (Auto) Neut % (Auto) Lymph % (Auto) [place] % (Auto) Eos % (Auto) Baso % (Auto) Lymph # (Auto) [place] # (Auto) Eos # (Auto) Baso # (Auto) Abs Immat Gran (auto) Absolute Neuts (auto) Absolute Nucleated RBC Nucleated RBC % (auto) PT INR D-Dimer High Sensitivty Anion Gap 11 L Estim Creat Clear Calc 52.8 Estimated GFR 48 Random Glucose 104 Lactic Acid Calcium 8.4 Total Bilirubin 1.1 H Direct Bilirubin 0.4 AST 23 ALT 14 Alkaline Phosphatase 77 Troponin I High Sens < 3.5 D B-Natriuretic Peptide 226 H Total Protein 6.6 Albumin 3.7 Influenza Type A (PCR) Influenza Type B (PCR) RSV RNA Qual (PCR) SARS-CoV-2 RNA (RT-PCR) 05/29/22 05/29/22 15:16 17:46 MCV MCH MCHC RDW Plt Count MPV Immature Gran % (Auto) Neut % (Auto) Lymph % (Auto) [place] % (Auto) Eos % (Auto) Baso % (Auto) Lymph # (Auto) [place] # (Auto) Eos # (Auto) Baso # (Auto) Abs Immat Gran (auto) Absolute Neuts (auto) Absolute Nucleated RBC Nucleated RBC % (auto) PT INR D-Dimer High Sensitivty 241 Anion Gap Estim Creat Clear Calc Estimated GFR Random Glucose Lactic Acid 0.7 Calcium Total Bilirubin Direct Bilirubin AST ALT Alkaline Phosphatase Troponin I High Sens B-Natriuretic Peptide Total Protein Albumin Influenza Type A (PCR) Influenza Type B (PCR) RSV RNA Qual (PCR) SARS-CoV-2 RNA (RT-PCR) Imaging Radiologist's Impressions: Impressions Chest X-Ray 05/29/22 14:55 IMPRESSION: No acute pulmonary disease. Chest CTA 05/29/22 17:36 IMPRESSION: * No CT evidence of pulmonary emboli. * Severe gonzalez lobar pulmonary emphysema. * There is airspace opacification possibly consolidation right lower lobe. * There are nodular opacities in the right upper lobe, the largest 1.8 cm, although probably atelectatic lung between emphysematous changes, especially given the rapid development since prior study of April 2022, cannot rule out underlying pathologic process. Attention to follow-up CT scan in 3 months advised. * Compression fracture mid dorsal vertebra has progressed, further compression loss of vertebral heights. * Aneurysmal dilatation of ascending aorta 4.5 cm, unchanged. Assessment and Plan (1) Compression fracture of T9 vertebra: Status: Acute (2) COPD (chronic obstructive pulmonary disease): Qualifiers: COPD type: emphysema Emphysema type: centrilobular Qualified Code(s): J43.2 - Centrilobular emphysema Status: Acute (3) Nonischemic cardiomyopathy: Status: Acute (4) Paroxysmal atrial fibrillation: Status: Acute (5) Hyperlipidemia: Status: Acute (6) Hypertension: Status: Acute (7) GERD (gastroesophageal reflux disease): Status: Acute (8) Depression: Status: Acute Plan This is a 67-year-old male with pertinent history of nonischemic cardiomyopathy, paroxysmal atrial fibrillation on Eliquis, COPD not on home oxygen, mixed hyperlipidemia, essential hypertension, gastroesophageal reflux disease, mood disorder who presents to the emergency department for evaluation of dyspnea. #. Acute dyspnea -orthopnea and PND in a patient with nonischemic cardiomyopathy. -Obtaining echocardiogram to evaluate for systolic, diastolic function and pulmonary pressures. -does have underlying COPD #. Back pain -imaging with progression of mid dorsal compression vertebral fracture. Consulting Dr. Delgado, for possible vertebroplasty. May need additional imaging like MRI, defer to Interventional Radiology. -unclear etiology off nontraumatic compression fracture #. Hypotension -noted in the ER. Improved with IV crystalloids. ?right sided CHF. Obtaining cortisol and TSH in a.m. #. Acute kidney injury stage I: Received IV crystalloids in the ER. Monitor. Avoid nephrotoxins #. Paroxysmal atrial fibrillation on Eliquis: Rate controlled in the ER #. COPD: Continue home inhaler. Cullen p.r.n. #. Essential hypertension: Home Coreg/Entresto due to hypotension DVT prophylaxis: On Eliquis Diet: Cardiac diet Full code Quality Stroke Does the patient have a stroke diagnosis?: No VTE Prior VTE?: No VTE Risk Level:: Medical - moderate - high VTE Device Contraindication: Treatment Not Indicated VTE Drug Contraindication: N/A - Med Ordered
[2022-05-30] VITALS (12 sets, daily range): BP systolic 98–113; BP diastolic 72–87; PULSE 72–124; RESP 16–22; TEMP 36.4–36.8; O2SAT 92–98
--- NOTE | 2022-05-30 | ECG_ITS ---
Test Reason : Medical Aime Blood Pressure : / mmHG Vent. Rate : 088 BPM Atrial Rate : 088 BPM P-R Int : 152 ms QRS Dur : 084 ms QT Int : 376 ms P-R-T Axes : 044 041 006 degrees QTc Int : 454 ms Normal sinus rhythm ST & T wave abnormality, consider anterior ischemia Abnormal ECG When compared with ECG of 30-MAY-2022 10:55, Premature atrial complexes are no longer Present Inverted T waves have replaced nonspecific T wave abnormality in Anterior leads Referred By: Abbie Herrera Electronically Signed By:ZULEMA JORDAN MD
--- NOTE | 2022-05-30 | ECG_ITS ---
Test Reason : arrythmia Blood Pressure : / mmHG Vent. Rate : 079 BPM Atrial Rate : 079 BPM P-R Int : 148 ms QRS Dur : 088 ms QT Int : 390 ms P-R-T Axes : 045 058 022 degrees QTc Int : 447 ms Sinus rhythm with Premature atrial complexes Otherwise normal ECG When compared with ECG of 29-MAY-2022 15:01, Sinus rhythm has replaced Atrial fibrillation Referred By: Abbie Herrera Electronically Signed By:ZULEMA JORDAN MD
[2022-05-30] MEDS: Acetaminophen 325 MG TABLET 650 MG PO ×2 (00:27→08:37)
[2022-05-30] MEDS: QUEtiapine Fumarate 300 MG TABLET PO ×2 (00:27→22:45)
[2022-05-30 06:51] LABS: MANUAL DIFF FLAG NO
[2022-05-30 06:55] LABS: Hematocrit 36.5 % (42.0-52.0); Imm Gran Abs Auto 0.02 X10*3/uL (0.00-0.03); Imm Gran Pct Auto 0.6 % (0.0-0.4); Lymphocytes Absolute Auto 0.4 X10*3/uL (1.2-4.9); Lymphocytes Percent Auto 13.5 % (20-40); Mean Corpuscular HGB Conc 32.9 g/dl (31.0-36.0); Mean Corpuscular Hemoglobin 29.3 pg (27.0-33.0); Mean Corpuscular Volume 89.2 fL (80.0-98.0); Mean Platelet Volume 10.9 fL (9.4-12.4); Monocytes Absolute Auto 0.1 X10*3/uL (0.1-1.2); Monocytes Percent Auto 1.8 % (2-11); Neutrophils Absolute Auto 2.7 x10*3/uL (2.0-8.3); Neutrophils Percent Auto 84.1 % (45-73); Platelet Count 171 X10*3/uL (160-400); Red Blood Count 4.09 X10*6/uL (4.60-5.80); White Blood Count 3.3 X10*3/uL (4.8-10.8)
--- NOTE | 2022-05-30 07:00 | CA_ITS ---
Transthoracic Echocardiogram Patient (Last, First, Middle): Avery Ware, Gender: Male Date of : 1955 Age: 67 Procedure Date: 05/30/2022 Procedure Type: Transthoracic Echocardiogram Location: ER Height: 182.88 cm Weight: 77.11 kg BSA: 1.99 m2 Heart Rate: bpm BP: 105 / 72 mmHg Mower Operator: TO Referring MD: Andreas Rodgers MD [employer] Entertainer: Pipo Lane MD Symptoms: dyspnea Study Quality: Fair ECG Rhythm: Atrial Fibrillation Conclusions: - 1. Mildly reduced LV systolic function with LVEF of 45-50% 2. Normal cardiac valvular Doppler 3. Normal RV systolic pressure 4. At least mildly dilated ascending aorta at 4.3 cm 5. No gross pericardial effusion Findings Left Ventricle Normal left ventricular cavity size. There is normal left ventricular wall thickness. The left ventricular systolic function is mildly decreased. The visually estimated ejection fraction is between 45-50%. Diastolic function is indeterminate on the basis of available data. Right Ventricle Normal right ventricular cavity size. There is low normal right ventricular systolic function. Atria The left atrium is normal in size. Interatrial shunt cannot be excluded. The right atrium is normal in size. Aortic Valve Normal aortic valve structure and function. There is no aortic valve stenosis. There is no aortic valve regurgitation. Mitral Valve Likely normal mitral valve structure and function. There is trace mitral valve regurgitation. There is no mitral valve stenosis. Pulmonic Valve The pulmonic valve is likely normal. Tricuspid Valve Normal tricuspid valve structure. There is trace tricuspid valve regurgitation. The right ventricular systolic pressure is normal. The right ventricular systolic pressure is 11 mmHg. Normal right atrial pressure. There is no evidence of pulmonary hypertension. Great Vessels The pulmonary artery was not well visualized. There is mild dilatation of the ascending aorta measuring 4.30 cm. Venous The inferior vena cava is normal in size and collapses greater than 50% with inspiration. Pericardium/Pleural There is no evidence of pericardial effusion. Prior Study Comparison no previous study in the last 5 years for comparison Measurements 2D Linear Measurements IVSd: 1.18 0.6-0.9/0.6-1.0 cm LVIDd: 4.62 3.9-5.3/4.2-5.9 cm LVIDd Index: 2.32 2.4-3.2/2.2-3.1 cm/m2 LVIDs: 3.72 2.0-3.6 cm LVPWd: 1.12 0.7-1.1 cm LA Diam: 2.90 2.7-3.8/3.0-4.0 cm LAIDs Index: 1.46 1.5-2.3 cm/m2 LV Mass: 242.07 67-162/88-224 g LV Mass Index: 121.64 43-95/49-115 g/m2 LVOT Diam: 2.20 3.0+(-)1.3 cm 2D Systolic Function EF 4C: 46.70 >55% EF 2C: 49.90 >55% EF BiP: 49.70 >55% Mitral Valve MV Pk E: 0.63 MV Decel Time: 221.00 E'Lateral: 13.20 E'Medial: 9.36 E/E' Med: 6.70 E/E' Lat: 4.80 PHT: 65.00 MVA PHT: 3.38 Decel [place]: 2.84 Aortic Valve AoV Pk [place]: 1.15 AoV Pk Grad: 5.00 LVOT LVOT Pk [place]: 0.81 LVOT Mn [place]: 0.54 LVOT VTI: 0.12 LVOT Pk Grad: 3.00 LVOT Mn Grad: 1.00 LVOT Diam: 2.20 LVOT Area: 3.80 Diastolic Function MV Pk E: 0.63 E'Medial: 9.36 E/E' Med: 6.70 E' Laterial: 13.20 E/E' Lat: 4.80 Right Ventricle TAPSE (mm): 17.10 TVS' [place]: 10.60 Tricuspid Valve TR Pk [place]: 1.37 TR Pk Grad: 8.00 RA Press: 3.00 RVSP: 11.00 Great Vessels Aorta Sinus of Valsalva: 4.01 2.0-3.[address] [place]: 3.06 1.7-3.4 cm Ao Asc: 4.30 2.1-3.4 cm Updated in Other Vendor System with Status of Final Pipo Lane MD electronically signed on 05/30/2022 4:15:09 PM with status of Final
[2022-05-30 07:22] LABS: Anion Gap 11 (12-20); Blood Urea Nitrogen 20 mg/dL (9-16); Calcium 8.2 mg/dL (8.4-10.2); Carbon Dioxide 20 mmol/L (22-29); Chloride 111 mmol/L (96-108); Estimated Glomerular Filt Rate > 60; Glucose Random 165 mg/dL (60-115); Sodium 138 mmol/L (135-145)
[2022-05-30 07:34] LABS: Cortisol Random 2.8 ug/dL; Thyroid Stimulating Hormone 0.35 uIU/mL (0.32-4.0)
[2022-05-30] MEDS: Digoxin 0.5 MG/2 ML AMPUL 0.25 MG IVPUSH (08:27)
[2022-05-30] MEDS: Apixaban 5 MG TABLET PO ×2 (08:27→22:45)
[2022-05-30] MEDS: Sennosides 8.6 MG TABLET 17.2 MG PO (08:27)
[2022-05-30] MEDS: Omeprazole 40 MG CAPSULE.DR PO (08:27)
[2022-05-30] MEDS: 0.9 % Sodium Chloride Flush 3 ML SYRINGE IVFLUSH ×2 (08:28→17:31)
[2022-05-30] MEDS: Cyclobenzaprine HCl 5 MG TABLET PO (08:37)
--- NOTE | 2022-05-30 08:39 | PC.NURSE ---
patient a&ox3, vitals obtained, pt is in afib running from 115-130, josh rudy was notified, order for ivp digoxin given, pt has c/o rt back pain- stating it is a 4-5 when laying still but increases to 8-10 when moving around, pt medicated for pain per order, balance staff inspector notified patient he will have an echo done at some point and this nurse explained what the echo was and why were were doing the test. pt denies chest pain/discomfort at this time, no sob noted-pt speaking in full sentences. call hollis within reach, will continue to monitor
--- NOTE | 2022-05-30 10:17 | HO.PM.IMPN ---
Subjective Subjective Date of Service: 05/30/22 Interval History: seen and examined this morning follow up for dyspnea patient HR into the 140s this morning, given a dose of digoxin, HR starting to improve patient reporting intermittent dyspnea, no palpitations or chest pain Review of Systems Review of Systems: Yes all other systems are reviewed and are negative Constitutional Constitutional: Denies chills and Denies fever(s) ENT Ears, Nose, Mouth, and Throat: Denies dizziness Cardiovascular Cardiovascular: Denies chest pain, Denies palpitations and Reports dyspnea Respiratory Respiratory: Denies cough and Reports dyspnea Gastrointestinal Gastrointestinal: Denies abdominal pain, Denies nausea and Denies vomiting Neurologic Neurologic: Denies dizziness Endocrine Endocrine: Denies palpitations Physical Exam Vital Signs: Vital Signs: Last Vital Signs Temp 97.6 F 05/30/22 08:26 Pulse 124 H 05/30/22 08:06 Resp 20 05/30/22 08:06 BP 105/72 05/30/22 08:00 Pulse Ox 94 05/30/22 08:00 O2 Del Method 05/30/22 08:00 O2 Flow Rate 2 05/29/22 20:00 BMI result Body Mass Index 23.0 Const: General: cooperative, comfortable, alert and awake Nutritional Appearance: thin Orientation/consciousness: patient oriented x3 Resp: Effort & Inspection: normal respiratory effort and able to speak in complete sentences Auscultation: clear to auscultation bilaterally Cardio: Other: tachycardic, irregular GI: Inspection: No distended Palpation (GI): Soft to palpation Neuro: General: patient oriented x3 and CN's II-XI intact bilaterally Extrem: General: No no pedal edema Objective Data Active Medications Acetaminophen (Acetaminophen 325 Mg Tablet) 650 mg PO Q6H PRN PRN Reason: Pain, Mild (Pain Scale 1-3) Last Admin: 05/30/22 08:37 Dose: 650 mg Documented By: BRADEN Apixaban (Apixaban 5 Mg Tablet) 5 mg PO BID [facility] Last Admin: 05/30/22 08:27 Dose: 5 mg Documented By: BRADEN Atorvastatin Calcium (Atorvastatin Calcium 10 Mg Tablet) 10 mg PO BEDTIME [facility] Cyclobenzaprine HCl (Cyclobenzaprine Hcl 5 Mg Tablet) 5 mg PO TID PRN PRN Reason: back pain Last Admin: 05/30/22 08:37 Dose: 5 mg Documented By: BRADEN Digoxin (Digoxin 0.5 Mg/2 Ml Ampul) 0.25 mg IVPUSH Q6H [facility] Stop: 05/30/22 14:16 Last Admin: 05/30/22 08:27 Dose: 0.25 mg Documented By: BRADEN Furosemide (Furosemide 20 Mg/2 Ml Vial) 20 mg IVPUSH DAILY [facility]; Protocol Latanoprost (Latanoprost 0.005 % Ophth Evelyn 2.5 Ml Drops) 1 drop EYE-BOTH BEDTIME [facility] Levalbuterol HCl (Levalbuterol Hcl 1.25 Mg/0.5 Ml Vial.Neb) 1.25 mg INHALE RQ4H WHILE AWAKE [facility] Last Admin: 05/30/22 08:06 Dose: 1.25 mg Documented By: MARTI Levalbuterol HCl (Levalbuterol Hcl 1.25 Mg/0.5 Ml Vial.Neb) 1.25 mg INHALE Q3H PRN PRN Reason: Shortness of Breath/Wheezing Melatonin (Melatonin 3 Mg Tablet) 6 mg PO BEDTIME PRN PRN Reason: Insomnia Non-Formulary Medication (Cdfktomegjd-Kohtypxih-Ewelbljj [Trelegy Ellipta]) 1 inhalation INHALE DAILY [facility] Non-Formulary Medication (Linaclotide [Linzess]) 145 mcg PO DAILY [facility] Omeprazole (Omeprazole 40 Mg Capsule.Dr) 40 mg PO DAILY [facility] Last Admin: 05/30/22 08:27 Dose: 40 mg Documented By: BRADEN Oxycodone HCl (Oxycodone Hcl Immed Release 5 Mg Tablet) 5 mg PO Q6H PRN PRN Reason: Pain, Severe (Pain Scale 7-10) Quetiapine Fumarate (Quetiapine Fumarate 300 Mg Tablet) 300 mg PO BEDTIME [facility] Last Admin: 05/30/22 00:27 Dose: 300 mg Documented By: RENETTA Senna (Sennosides 8.6 Mg Tablet) 17.2 mg PO DAILY [facility] Last Admin: 05/30/22 08:27 Dose: 17.2 mg Documented By: BRADEN Sodium Chloride (0.9 % Sodium Chloride Flush 3 Ml Syringe) 3 ml IVFLUSH QSHIFT [facility] Last Admin: 05/30/22 08:28 Dose: 3 ml Documented By: BRADEN Sotalol HCl (Sotalol Hcl 80 Mg Tablet) 80 mg PO BID [facility] Trazodone HCl (Trazodone Hcl 100 Mg Tablet) 100 mg PO BEDTIME PRN PRN Reason: Sleep Labs CBC & Chem 7: 05/30/22 05:58 05/30/22 05:58 Labs: Laboratory Results - last 24 hr 05/29/22 05/29/22 05/29/22 15:15 15:16 15:16 MCV 91.3 MCH 30.5 MCHC 33.4 RDW 13.0 Plt Count 197 MPV 10.7 Immature Gran % (Auto) 0.3 Neut % (Auto) 76.8 H Lymph % (Auto) 14.9 L [place] % (Auto) 7.2 Eos % (Auto) 0.7 Baso % (Auto) 0.1 Lymph # (Auto) 1.4 [place] # (Auto) 0.7 Eos # (Auto) 0.1 Baso # (Auto) 0.0 Abs Immat Gran (auto) 0.03 Absolute Neuts (auto) 7.1 Absolute Nucleated RBC 0.000 Nucleated RBC % (auto) 0.0 PT 16.2 H INR 1.4 H D-Dimer High Sensitivty Anion Gap Estim Creat Clear Calc Estimated GFR Random Glucose Lactic Acid Calcium Total Bilirubin Direct Bilirubin AST ALT Alkaline Phosphatase Troponin I High Sens B-Natriuretic Peptide Total Protein Albumin TSH Random Cortisol Influenza Type A (PCR) NEGATIVE Influenza Type B (PCR) NEGATIVE RSV RNA Qual (PCR) NEGATIVE SARS-CoV-2 RNA (RT-PCR) NEGATIVE 05/29/22 05/29/22 05/29/22 15:16 15:16 15:16 MCV MCH MCHC RDW Plt Count MPV Immature Gran % (Auto) Neut % (Auto) Lymph % (Auto) [place] % (Auto) Eos % (Auto) Baso % (Auto) Lymph # (Auto) [place] # (Auto) Eos # (Auto) Baso # (Auto) Abs Immat Gran (auto) Absolute Neuts (auto) Absolute Nucleated RBC Nucleated RBC % (auto) PT INR D-Dimer High Sensitivty Anion Gap 11 L Estim Creat Clear Calc 52.8 Estimated GFR 48 Random Glucose 104 Lactic Acid Calcium 8.4 Total Bilirubin 1.1 H Direct Bilirubin 0.4 AST 23 ALT 14 Alkaline Phosphatase 77 Troponin I High Sens < 3.5 D B-Natriuretic Peptide 226 H Total Protein 6.6 Albumin 3.7 TSH Random Cortisol Influenza Type A (PCR) Influenza Type B (PCR) RSV RNA Qual (PCR) SARS-CoV-2 RNA (RT-PCR) 05/29/22 05/29/22 05/30/22 15:16 17:46 05:58 MCV MCH MCHC RDW Plt Count MPV Immature Gran % (Auto) Neut % (Auto) Lymph % (Auto) [place] % (Auto) Eos % (Auto) Baso % (Auto) Lymph # (Auto) [place] # (Auto) Eos # (Auto) Baso # (Auto) Abs Immat Gran (auto) Absolute Neuts (auto) Absolute Nucleated RBC Nucleated RBC % (auto) PT INR D-Dimer High Sensitivty 241 Anion Gap Estim Creat Clear Calc Estimated GFR Random Glucose Lactic Acid 0.7 Calcium Total Bilirubin Direct Bilirubin AST ALT Alkaline Phosphatase Troponin I High Sens B-Natriuretic Peptide Total Protein Albumin TSH Random Cortisol 2.8 Influenza Type A (PCR) Influenza Type B (PCR) RSV RNA Qual (PCR) SARS-CoV-2 RNA (RT-PCR) 05/30/22 05/30/22 05/30/22 05:58 05:58 05:58 MCV 89.2 MCH 29.3 MCHC 32.9 RDW 13.0 Plt Count 171 MPV 10.9 Immature Gran % (Auto) 0.6 H Neut % (Auto) 84.1 H Lymph % (Auto) 13.5 L [place] % (Auto) 1.8 L Eos % (Auto) 0.0 Baso % (Auto) 0.0 Lymph # (Auto) 0.4 L [place] # (Auto) 0.1 Eos # (Auto) 0.0 Baso # (Auto) 0.0 Abs Immat Gran (auto) 0.02 Absolute Neuts (auto) 2.7 Absolute Nucleated RBC 0.000 Nucleated RBC % (auto) 0.0 PT INR D-Dimer High Sensitivty Anion Gap 11 L Estim Creat Clear Calc 94.0 Estimated GFR > 60 Random Glucose 165 H Lactic Acid Calcium 8.2 L Total Bilirubin Direct Bilirubin AST ALT Alkaline Phosphatase Troponin I High Sens B-Natriuretic Peptide Total Protein Albumin TSH 0.35 Random Cortisol Influenza Type A (PCR) Influenza Type B (PCR) RSV RNA Qual (PCR) SARS-CoV-2 RNA (RT-PCR) Assessment and Plan (1) Compression fracture of thoracic spine, non-traumatic: Status: Acute (2) Nonischemic cardiomyopathy: Status: Acute (3) Atrial fibrillation with rapid ventricular response: Status: Acute Plan This is a 67-year-old male with pertinent history of nonischemic cardiomyopathy, paroxysmal atrial fibrillation on Eliquis, COPD not on home oxygen, mixed hyperlipidemia, essential hypertension, gastroesophageal reflux disease, mood disorder who presents to the emergency department for evaluation of dyspnea. atrial fibrillation with rapid ventricular response Coreg on hold for hypotension given 1 dose of IV digoxin, heart rate/blood pressure improving seen by Cardiology, plan to start sotalol - check EKG prior to each dose of sotalol and two hours following each dose. Message cardiology if qtc >500 follow electrolytes keep NPO for possible cardioversion in a.m. Acute on chronic HFrEF EF 40-45% likely precipitated by rapid afib low dose IV lasix, follow BP closely monitor intake and output continue Eliquis Dyspnea possibly r/t CHF, rapid afib CTA also showing severe emphysema and nodular opacities - recommend repeat CT in 3 months no acute copd exacerbation, continue prn breathing treatments - changed to xopenex due to tachycardia Back pain imaging with progression of mid dorsal compression vertebral fracture. Consulting Dr. Delgado, for possible vertebroplasty - will need to defer until HR under better control unclear etiology of nontraumatic compression fracture Hypotension noted in the ER. Improved with IV crystalloids no evidence of infection TSH wnl RASHIDA Creatinine improved from 1.46 to 0.82 follow BMP Essential hypertension Home Coreg/Entresto due to hypotension DVT prophylaxis: On Eliquis Diet: Cardiac diet attending - Dr. childress Full code Requires ongoing inpatient hospitalization for management of rapid afib, CHF requiring IV lasix, initiation of sotalol Quality Stroke Does the patient have a stroke diagnosis?: No VTE Prior VTE?: No VTE Risk Level:: Medical - moderate - high VTE Device Contraindication: Treatment Not Indicated VTE Drug Contraindication: N/A - Med Ordered
--- NOTE | 2022-05-30 10:49 | PM.CNCAR ---
History of Present Illness History of Present Illness Date of Service: 05/30/22 Requesting physician: Abbie Herrera Consult reason: atrial fibrillation and congestive heart failure Chief complaint: Dyspnea Narrative: I was consulted to see Avery in cardiology consultation today for atrial fibrillation low blood pressure. Was last seen in the hospital in April when he had come with abdominal pain and was noted to have atrial fibrillation rapid ventricular response and that time had converted back to sinus rhythm and his Coreg was increased and Eliquis was added to his regimen. Patient is mostly Armenian speaking and history was obtained with help of her sister over the telephone. Patient says he has been short of breath ever since he was hospitalized for atrial fibrillation last time. He has known history of cardiomyopathy LVEF of 40-45% with no heart failure syndrome. Last time when we had seen him he was not in heart failure although BNP was mildly elevated. This time he comes in on 05/26 with back pain and was noted to have compression fracture of the thoracic vertebra. He was then subsequently at that time had EKG which showed normal sinus rhythm. He came back to the hospital few days later because he is not feeling well however is very poor historian. I last with a was feeling worse with shortness of breath and or had orthopnea PND he is not able to confirm just felt poorly. When he came to the hospital he was noted to have low blood pressures carvedilol was withheld. He was rate control with digoxin. His BNP is further elevated in the mid 200 range. He does not have any overt edema. No weight gain no abdominal distension. No syncopal episodes. Denies any chest pain. Review of Systems Constitutional: Constitutional: Reports lethargy Eyes: Eyes: Reports no additional eye complaints Cardiovascular: Cardiovascular: Denies chest pain, Denies rapid heart rate, Denies lightheadedness, Denies Loss of Consciousness, Denies palpitations and Reports dyspnea Respiratory: Respiratory: Reports no additional respiratory complaints and Reports dyspnea Musculoskeletal: Musculoskeletal: Reports no additional musculoskeletal complaints Integumentary/Breasts: Skin/Breast: Reports system reviewed and no additional complaints, except as docu Neurologic: Reports system reviewed and no additional complaints, except as documented Psychiatric: Psychiatric: Reports no additional psychiatric complaints Endocrine: Endocrine: Reports no additional endocrine complaints and Denies palpitations Hematologic/Lymphatic: Hematologic/Lymphatic: Reports no additional hematologic/lymphatic complaints [facility] Past Medical History Medical History Constipation COPD (chronic obstructive pulmonary disease) COPD (chronic obstructive pulmonary disease) Dyspnea Hyperlipidemia Hypertension Personal history of nicotine dependence Pulmonary nodules Tubular adenoma of colon Family History Family History Mother Renal failure Father History of depression Brother Colon cancer Surgical History Surgical History History of appendectomy History of gastric surgery History of surgery on left wrist (~03/21/10) Hx of cataract surgery (~07/02/10) Hx of colonoscopy (~02/13/06) Hx of endoscopy Social History Social History Household Members: None Housing: Apartment Do you presently have visiting nurse or other home services: No Alcohol intake: former Patient Tobacco Use Status: Former Tobacco user Tobacco use type: Cigarette Cigarette Packs Per Day: 0.5 Years Smoked: 51 (onset 14yo) Smoked in Last 30 Days: Yes e-Cigarette/Vaping Use: Former Use Second Hand Smoke Exposure: No Use of substances other than those prescribed or required for medical reasons: No Advance Directives: No Advance Directives Information Provided: Yes service: No Current occupational status: unemployed Meds Allergies Allergy/AdvReac Type Severity Reaction Status Date / Time No Known Allergies Allergy Verified 05/29/22 14:29 [No Known Allergies*] Active Medications: Current Medications Acetaminophen (Acetaminophen 325 Mg Tablet) 650 mg PO Q6H PRN PRN Reason: Pain, Mild (Pain Scale 1-3) Last Admin: 05/30/22 08:37 Dose: 650 mg Apixaban (Apixaban 5 Mg Tablet) 5 mg PO BID YESSENIA Last Admin: 05/30/22 08:27 Dose: 5 mg Atorvastatin Calcium (Atorvastatin Calcium 10 Mg Tablet) 10 mg PO BEDTIME [facility] Cyclobenzaprine HCl (Cyclobenzaprine Hcl 5 Mg Tablet) 5 mg PO TID PRN PRN Reason: back pain Last Admin: 05/30/22 08:37 Dose: 5 mg Digoxin (Digoxin 0.5 Mg/2 Ml Ampul) 0.25 mg IVPUSH Q6H [facility] Stop: 05/30/22 14:16 Last Admin: 05/30/22 08:27 Dose: 0.25 mg Furosemide (Furosemide 20 Mg/2 Ml Vial) 20 mg IVPUSH DAILY [facility]; Protocol Latanoprost (Latanoprost 0.005 % Ophth Evelyn 2.5 Ml Drops) 1 drop EYE-BOTH BEDTIME [facility] Levalbuterol HCl (Levalbuterol Hcl 1.25 Mg/0.5 Ml Vial.Neb) 1.25 mg INHALE RQ4H WHILE AWAKE [facility] Last Admin: 05/30/22 08:06 Dose: 1.25 mg Levalbuterol HCl (Levalbuterol Hcl 1.25 Mg/0.5 Ml Vial.Neb) 1.25 mg INHALE Q3H PRN PRN Reason: Shortness of Breath/Wheezing Melatonin (Melatonin 3 Mg Tablet) 6 mg PO BEDTIME PRN PRN Reason: Insomnia Non-Formulary Medication (Wyxwvtfohol-Ayovsosag-Ycofrqbn [Trelegy Ellipta]) 1 inhalation INHALE DAILY [facility] Non-Formulary Medication (Linaclotide [Linzess]) 145 mcg PO DAILY [facility] Omeprazole (Omeprazole 40 Mg Capsule.Dr) 40 mg PO DAILY [facility] Last Admin: 05/30/22 08:27 Dose: 40 mg Oxycodone HCl (Oxycodone Hcl Immed Release 5 Mg Tablet) 5 mg PO Q6H PRN PRN Reason: Pain, Severe (Pain Scale 7-10) Quetiapine Fumarate (Quetiapine Fumarate 300 Mg Tablet) 300 mg PO BEDTIME [facility] Last Admin: 05/30/22 00:27 Dose: 300 mg Senna (Sennosides 8.6 Mg Tablet) 17.2 mg PO DAILY [facility] Last Admin: 05/30/22 08:27 Dose: 17.2 mg Sodium Chloride (0.9 % Sodium Chloride Flush 3 Ml Syringe) 3 ml IVFLUSH QSHIFT [facility] Last Admin: 05/30/22 08:28 Dose: 3 ml Sotalol HCl (Sotalol Hcl 80 Mg Tablet) 80 mg PO BID [facility] Trazodone HCl (Trazodone Hcl 100 Mg Tablet) 100 mg PO BEDTIME PRN PRN Reason: Sleep Home Medications Medication Instructions Recorded Confirmed Last Taken Type latanoprost 0.005 % eye drops 1 drp ophthalmic (eye) BEDTIME 03/27/20 05/29/22 Unknown History quetiapine 300 mg tablet 300 mg PO BEDTIME 03/27/20 05/29/22 Unknown History simvastatin 20 mg tablet 20 mg PO BEDTIME 03/27/20 05/29/22 Unknown History trazodone 100 mg tablet 100 - 200 mg PO BEDTIME PRN Sleep 03/27/20 05/29/22 Unknown History sacubitril 49 mg-valsartan 51 mg 1 tab PO BID 01/04/21 05/29/22 Unknown History tablet sennosides 8.6 mg capsule (senna) 17.2 mg PO DAILY 02/13/22 05/29/22 Unknown History Physical Exam Vital Signs: Vital Signs: Last Vital Signs Temp 97.6 F 05/30/22 08:26 Pulse 124 H 05/30/22 08:06 Resp 20 05/30/22 08:06 BP 105/72 05/30/22 08:00 Pulse Ox 94 05/30/22 08:00 O2 Del Method 05/30/22 08:00 O2 Flow Rate 2 05/29/22 20:00 BMI result Body Mass Index 23.0 Const: General: cooperative, comfortable, no acute distress, alert and awake Nutritional Appearance: average body habitus Orientation/consciousness: patient oriented x3 Limitations: no limitations Neck: Neck: Yes trachea midline, Yes supple and Yes no JVD Resp: Effort & Inspection: normal respiratory effort Auscultation: clear to auscultation bilaterally Cardio: Rate: tachycardic Rhythm: abnormal rhythm irregularly irregular Heart sounds: S1 normal heart sound present, S2 normal heart sound present, no click, no gallops and no murmurs GI: Auscultation: normal bowel sounds Skin: General skin exam: no rashes or lesions noted Neuro: General: patient oriented x3 and no focal motor deficits Extrem: General: Yes no clubbing, cyanosis or edema Objective Labs and Meds Result diagrams: 05/30/22 05:58 05/30/22 05:58 Lab results: Laboratory Results - last 24 hr 05/29/22 05/29/22 05/29/22 15:15 15:16 15:16 WBC 9.2 RBC 4.72 Hgb 14.4 Hct 43.1 MCV 91.3 MCH 30.5 MCHC 33.4 RDW 13.0 Plt Count 197 MPV 10.7 Immature Gran % (Auto) 0.3 Neut % (Auto) 76.8 H Lymph % (Auto) 14.9 L [place] % (Auto) 7.2 Eos % (Auto) 0.7 Baso % (Auto) 0.1 Lymph # (Auto) 1.4 [place] # (Auto) 0.7 Eos # (Auto) 0.1 Baso # (Auto) 0.0 Abs Immat Gran (auto) 0.03 Absolute Neuts (auto) 7.1 Absolute Nucleated RBC 0.000 Nucleated RBC % (auto) 0.0 PT 16.2 H INR 1.4 H D-Dimer High Sensitivty Sodium Potassium Chloride Carbon Dioxide Anion Gap BUN Creatinine Estim Creat Clear Calc Estimated GFR Random Glucose Lactic Acid Calcium Total Bilirubin Direct Bilirubin AST ALT Alkaline Phosphatase Troponin I High Sens B-Natriuretic Peptide Total Protein Albumin TSH Random Cortisol Influenza Type A (PCR) NEGATIVE Influenza Type B (PCR) NEGATIVE RSV RNA Qual (PCR) NEGATIVE SARS-CoV-2 RNA (RT-PCR) NEGATIVE 05/29/22 05/29/22 05/29/22 15:16 15:16 15:16 WBC RBC Hgb Hct MCV MCH MCHC RDW Plt Count MPV Immature Gran % (Auto) Neut % (Auto) Lymph % (Auto) [place] % (Auto) Eos % (Auto) Baso % (Auto) Lymph # (Auto) [place] # (Auto) Eos # (Auto) Baso # (Auto) Abs Immat Gran (auto) Absolute Neuts (auto) Absolute Nucleated RBC Nucleated RBC % (auto) PT INR D-Dimer High Sensitivty Sodium 136 Potassium 4.1 Chloride 103 Carbon Dioxide 26 Anion Gap 11 L BUN 36 H Creatinine 1.46 H Estim Creat Clear Calc 52.8 Estimated GFR 48 Random Glucose 104 Lactic Acid Calcium 8.4 Total Bilirubin 1.1 H Direct Bilirubin 0.4 AST 23 ALT 14 Alkaline Phosphatase 77 Troponin I High Sens < 3.5 D B-Natriuretic Peptide 226 H Total Protein 6.6 Albumin 3.7 TSH Random Cortisol Influenza Type A (PCR) Influenza Type B (PCR) RSV RNA Qual (PCR) SARS-CoV-2 RNA (RT-PCR) 05/29/22 05/29/22 05/30/22 15:16 17:46 05:58 WBC RBC Hgb Hct MCV MCH MCHC RDW Plt Count MPV Immature Gran % (Auto) Neut % (Auto) Lymph % (Auto) [place] % (Auto) Eos % (Auto) Baso % (Auto) Lymph # (Auto) [place] # (Auto) Eos # (Auto) Baso # (Auto) Abs Immat Gran (auto) Absolute Neuts (auto) Absolute Nucleated RBC Nucleated RBC % (auto) PT INR D-Dimer High Sensitivty 241 Sodium Potassium Chloride Carbon Dioxide Anion Gap BUN Creatinine Estim Creat Clear Calc Estimated GFR Random Glucose Lactic Acid 0.7 Calcium Total Bilirubin Direct Bilirubin AST ALT Alkaline Phosphatase Troponin I High Sens B-Natriuretic Peptide Total Protein Albumin TSH Random Cortisol 2.8 Influenza Type A (PCR) Influenza Type B (PCR) RSV RNA Qual (PCR) SARS-CoV-2 RNA (RT-PCR) 05/30/22 05/30/22 05/30/22 05:58 05:58 05:58 WBC 3.3 L RBC 4.09 L Hgb 12.0 L Hct 36.5 L MCV 89.2 MCH 29.3 MCHC 32.9 RDW 13.0 Plt Count 171 MPV 10.9 Immature Gran % (Auto) 0.6 H Neut % (Auto) 84.1 H Lymph % (Auto) 13.5 L [place] % (Auto) 1.8 L Eos % (Auto) 0.0 Baso % (Auto) 0.0 Lymph # (Auto) 0.4 L [place] # (Auto) 0.1 Eos # (Auto) 0.0 Baso # (Auto) 0.0 Abs Immat Gran (auto) 0.02 Absolute Neuts (auto) 2.7 Absolute Nucleated RBC 0.000 Nucleated RBC % (auto) 0.0 PT INR D-Dimer High Sensitivty Sodium 138 Potassium 4.0 Chloride 111 H Carbon Dioxide 20 L Anion Gap 11 L BUN 20 H Creatinine 0.82 Estim Creat Clear Calc 94.0 Estimated GFR > 60 Random Glucose 165 H Lactic Acid Calcium 8.2 L Total Bilirubin Direct Bilirubin AST ALT Alkaline Phosphatase Troponin I High Sens B-Natriuretic Peptide Total Protein Albumin TSH 0.35 Random Cortisol Influenza Type A (PCR) Influenza Type B (PCR) RSV RNA Qual (PCR) SARS-CoV-2 RNA (RT-PCR) Imaging Radiologist's impression: Impressions Chest X-Ray 05/29/22 14:55 IMPRESSION: No acute pulmonary disease. Chest CTA 05/29/22 17:36 IMPRESSION: * No CT evidence of pulmonary emboli. * Severe gonzalez lobar pulmonary emphysema. * There is airspace opacification possibly consolidation right lower lobe. * There are nodular opacities in the right upper lobe, the largest 1.8 cm, although probably atelectatic lung between emphysematous changes, especially given the rapid development since prior study of April 2022, cannot rule out underlying pathologic process. Attention to follow-up CT scan in 3 months advised. * Compression fracture mid dorsal vertebra has progressed, further compression loss of vertebral heights. * Aneurysmal dilatation of ascending aorta 4.5 cm, unchanged. Assessment and Plan (1) Atrial fibrillation with rapid ventricular response: Status: Acute Patient presents with not feeling well and worsening shortness of breath the symptoms somewhat suggestive of heart failure, is are not very good historian. BNP is further elevated. Presents with recurrent atrial fibrillation rapid ventricular response with low blood pressure. Cannot use carvedilol at current dose. However it seems like patient might a converted to sinus rhythm. I think he will benefit from rhythm control approach. If he remains in atrial fibrillation rapid ventricular response will pursue synchronized cardioversion. Start him on sotalol 80 mg b.i.d. for rhythm maintenance as carvedilol is not maintaining rhythm for him. Participate in sotalol protocol. Perform EKGs as needed. Whole sotalol for greater than 500 milliseconds QTC. Continue full oral anticoagulation with Eliquis 5 mg b.i.d.. Will continue to follow closely. Will need monitoring for 48 hours on sotalol therapy. (2) CHF exacerbation: Status: Acute Patient has signs and symptoms and slightly elevated BNP is consistent with early congestive heart failure most likely related to recurrent atrial fibrillation rapid ventricular response setting of cardiomyopathy. Gentle diuresis with Lasix 20 mg. Strict intake and output chart needs to be pursued. Continue monitor blood pressure. Switch to sotalol therapy as neurohormonal modulation. If blood pressure stabilizes will probably pursue other therapy with angiotensin receptor diana. Will continue to follow with you Procedures Date of Service Date of Service: 05/30/22
--- NOTE | 2022-05-30 11:02 | PC.NURSE ---
pt noted to convert to nsr, provider josh grant notified, ekg obtained and sent to provider via tiger text. called pharmacy for missing med will medicate when medication comes from pharmacy and continue to monitor
--- NOTE | 2022-05-30 11:59 | PC.NURSE ---
this nurse called pharmacy again for missing meds, they will bring medication up shortly
[2022-05-30] MEDS: Sotalol HCL 80 MG TABLET PO ×2 (12:11→22:47)
[2022-05-30] MEDS: oxyCODONE HCl Immed Release 5 MG TABLET PO (12:11)
[2022-05-30] MEDS: Furosemide 20 MG/2 ML VIAL IVPUSH (12:11)
--- NOTE | 2022-05-30 12:15 | PC.NURSE ---
patient a&ox3, family at bedside requesting to speak with provider, provider notified will come speak with family, cardiac sonographer continues to be NSR, vss, pt medicated per order, will repeat ekg in 2 hours.
--- NOTE | 2022-05-30 14:30 | PC.NURSE ---
patient a&ox3, monitoring and evaluation advisor nsr 80s, vitals remain stable, call hollis within reach, will continue to monitor.
--- NOTE | 2022-05-30 17:33 | PC.NURSE ---
pt a&9x3, court monitor nsr 80s, pt has low back pain which he continues to rate as a 4-5/10 increases with movement, pt states the medication has helped minimally, call hollis within reach, pt resting comfortably at this time, will continue to monitor
[2022-05-30] MEDS: Atorvastatin Calcium 10 MG TABLET PO (22:45)
[2022-05-30] MEDS: Latanoprost 0.005 % Ophth Sol 2.5 ML DROPS 1 DROP EYE-BOTH (22:46)
--- NOTE | 2022-05-30 23:08 | PC.NURSE ---
PT MEDICATED ACCORDING TO AUG. HEAD OF BED LOWERED PILLOW ADJUSTED TO PT COMFORT. CURTAIN DRAWN TO PROVIDE ENVIRONMENT FOR PT TO REST PER PT REQUEST
[2022-05-31] VITALS (10 sets, daily range): BP systolic 93–116; BP diastolic 54–80; PULSE 61–75; RESP 14–19; TEMP 36.2–37.1; O2SAT 92–98; BMI 23.9
--- NOTE | 2022-05-31 | ECG_ITS ---
Test Reason : discharge Blood Pressure : / mmHG Vent. Rate : 066 BPM Atrial Rate : 066 BPM P-R Int : 160 ms QRS Dur : 070 ms QT Int : 416 ms P-R-T Axes : 055 045 019 degrees QTc Int : 436 ms Sinus rhythm with occasional Premature ventricular complexes Septal infarct , age undetermined Abnormal ECG When compared with ECG of 30-MAY-2022 14:14, Premature ventricular complexes are now Present T wave inversion no longer evident in Anterior leads Referred By: Brian Garcia Electronically Signed By:ZULEMA JORDAN MD
[2022-05-31] MEDS: 0.9 % Sodium Chloride Flush 3 ML SYRINGE IVFLUSH ×4 (00:09→20:46)
[2022-05-31 08:59] LABS: Anion Gap 15 (12-20); Blood Urea Nitrogen 19 mg/dL (9-16); Calcium 8.4 mg/dL (8.4-10.2); Carbon Dioxide 19 mmol/L (22-29); Chloride 111 mmol/L (96-108); Estimated Glomerular Filt Rate > 60; Glucose Random 101 mg/dL (60-115); Magnesium 2.1 mg/dL (1.6-2.6); Potassium 4.8 mmol/L (3.3-5.1); Sodium 140 mmol/L (135-145)
[2022-05-31] MEDS: Furosemide 20 MG/2 ML VIAL IVPUSH (10:01)
[2022-05-31] MEDS: Sotalol HCL 80 MG TABLET PO ×2 (10:01→20:45)
[2022-05-31] MEDS: Apixaban 5 MG TABLET PO ×2 (10:02→20:45)
[2022-05-31] MEDS: Sennosides 8.6 MG TABLET 17.2 MG PO (10:02)
[2022-05-31] MEDS: Omeprazole 40 MG CAPSULE.DR PO (10:02)
[2022-05-31] MEDS: Acetaminophen 325 MG TABLET 650 MG PO ×2 (10:05→16:23)
--- NOTE | 2022-05-31 12:32 | PM.PNCARD ---
Subjective Subjective Date of Service: 05/31/22 Principal diagnosis: Atrial fibrillation, CHF Interval history: Patient is feeling very well at this point in time. Heart failure symptoms resolved. Remaining in sinus rhythm. Tolerating sotalol therapy. Review of Systems Review of Systems Yes all other systems are reviewed and are negative Physical Exam Vital Signs: Last Vital Signs Temp 98.3 F 05/31/22 07:51 Pulse 75 05/31/22 11:54 Resp 16 05/31/22 11:54 BP 108/63 05/31/22 07:51 Pulse Ox 93 05/31/22 07:51 O2 Del Method 05/31/22 07:51 O2 Flow Rate 2 05/29/22 20:00 BMI result Body Mass Index 23.9 Const General: cooperative, comfortable, no acute distress, alert and awake Nutritional Appearance: average body habitus Orientation/consciousness: patient oriented x3 Limitations: no limitations Neck Neck: Yes trachea midline, Yes supple and Yes no JVD Resp Effort & Inspection: normal respiratory effort Auscultation: clear to auscultation bilaterally Cardio Rate: regular rate Rhythm: regular rhythm and abnormal rhythm with ectopic beats Heart sounds: S1 normal heart sound present, S2 normal heart sound present, no click, no gallops and no murmurs GI Auscultation: normal bowel sounds Skin General skin exam: no rashes or lesions noted Neuro General: patient oriented x3 and no focal motor deficits Extrem General: Yes no clubbing, cyanosis or edema Objective Labs and Meds Result diagrams: 05/30/22 05:58 05/31/22 05:41 Lab results: Laboratory Results - last 24 hr 05/31/22 05:41 Sodium 140 Potassium 4.8 Chloride 111 H Carbon Dioxide 19 L Anion Gap 15 BUN 19 H Creatinine 0.80 Estim Creat Clear Calc 97.0 Estimated GFR > 60 Random Glucose 101 Calcium 8.4 Magnesium 2.1 Progress Note: A&P Assessment and plan (1) Paroxysmal atrial fibrillation: Status: Acute Assessment and Plan: Patient self converted yesterday started on sotalol to maintain rhythm. Tolerating this well. Continue sotalol therapy. Continue to monitor as per sotalol protocol. Continue full oral anticoagulation with Eliquis. Does not need concomitant carvedilol therapy. (2) CHF exacerbation: Status: Acute Assessment and Plan: Heart failure with mild cardiomyopathy. Heart failure most likely due to atrial fibrillation uncontrolled. Continue rhythm control approach with sotalol. Heart failure symptoms and findings have resolved. Can stop Lasix and use it on p.r.n. basis. CHF education provided. Start low-dose valsartan 20 mg daily. Continue sotalol therapy as low as neurohormonal modulation. Will follow with you Time Spent With Patient Time: Total time spent is greater than 50% in coordination of care (as documented) at patient's floor/unit and/or counseling patient: Progress Note: Quality Stroke Does the patient have a stroke diagnosis?: No Procedures Date of Service Date of Service: 05/31/22
--- NOTE | 2022-05-31 13:27 | P.PNIM_ITS ---
Subjective Subjective Date of Service: 05/31/22 Interval History: f/u cm low EF, afib s/p sotalol loading interval history: feels good, no sob, ECG normal qtc Review of Systems no sob no chest pain no palpitations Physical Exam Vital Signs: Vital Signs: Last Vital Signs Temp 98.3 F 05/31/22 07:51 Pulse 75 05/31/22 11:54 Resp 16 05/31/22 11:54 BP 108/63 05/31/22 07:51 Pulse Ox 93 05/31/22 07:51 O2 Del Method 05/31/22 07:51 O2 Flow Rate 2 05/29/22 20:00 BMI result Body Mass Index 23.9 Const: Other: General: AO X 3, no acute distress Resp: CTA bilateral CVS: S1,S2,RRR GI: +BS, NT, no distention Skin: No rash Neuro: motor grossly intact Psych: appropriate affect Objective Data Active Medications Acetaminophen (Acetaminophen 325 Mg Tablet) 650 mg PO Q6H PRN PRN Reason: Pain, Mild (Pain Scale 1-3) Last Admin: 05/31/22 10:05 Dose: 650 mg Documented By: CHIP Apixaban (Apixaban 5 Mg Tablet) 5 mg PO BID [facility] Last Admin: 05/31/22 10:02 Dose: 5 mg Documented By: CHIP Atorvastatin Calcium (Atorvastatin Calcium 10 Mg Tablet) 10 mg PO BEDTIME YESSENIA Last Admin: 05/30/22 22:45 Dose: 10 mg Documented By: SMITHA Cyclobenzaprine HCl (Cyclobenzaprine Hcl 5 Mg Tablet) 5 mg PO TID PRN PRN Reason: back pain Last Admin: 05/30/22 08:37 Dose: 5 mg Documented By: BRADEN Furosemide (Furosemide 20 Mg/2 Ml Vial) 20 mg IVPUSH DAILY [facility]; Protocol Last Admin: 05/31/22 10:01 Dose: 20 mg Documented By: CHIP Latanoprost (Latanoprost 0.005 % Ophth Evelyn 2.5 Ml Drops) 1 drop EYE-BOTH BEDTIME [facility] Last Admin: 05/30/22 22:46 Dose: 1 drop Documented By: SMITHA Levalbuterol HCl (Levalbuterol Hcl 1.25 Mg/0.5 Ml Vial.Neb) 1.25 mg INHALE RQ4H WHILE AWAKE [facility] Last Admin: 05/31/22 11:52 Dose: 1.25 mg Documented By: ETHAN Levalbuterol HCl (Levalbuterol Hcl 1.25 Mg/0.5 Ml Vial.Neb) 1.25 mg INHALE Q3H PRN PRN Reason: Shortness of Breath/Wheezing Melatonin (Melatonin 3 Mg Tablet) 6 mg PO BEDTIME PRN PRN Reason: Insomnia Non-Formulary Medication (Jxlwpdevycp-Kcytmwaee-Horpzsnj [Trelegy Ellipta]) 1 inhalation INHALE DAILY [facility] Non-Formulary Medication (Linaclotide [Linzess]) 145 mcg PO DAILY [facility] Omeprazole (Omeprazole 40 Mg Capsule.) 40 mg PO DAILY [facility] Last Admin: 05/31/22 10:02 Dose: 40 mg Documented By: COTEMA Oxycodone HCl (Oxycodone Hcl Immed Release 5 Mg Tablet) 5 mg PO Q6H PRN PRN Reason: Pain, Severe (Pain Scale 7-10) Last Admin: 05/30/22 12:11 Dose: 5 mg Documented By: BRADEN Quetiapine Fumarate (Quetiapine Fumarate 300 Mg Tablet) 300 mg PO BEDTIME [facility] Last Admin: 05/30/22 22:45 Dose: 300 mg Documented By: FLOWERP Senna (Sennosides 8.6 Mg Tablet) 17.2 mg PO DAILY [facility] Last Admin: 05/31/22 10:02 Dose: 17.2 mg Documented By: CHIP Sodium Chloride (0.9 % Sodium Chloride Flush 3 Ml Syringe) 3 ml IVFLUSH QSHIFT [facility] Last Admin: 05/31/22 10:02 Dose: 3 ml Documented By: COTEMA Sotalol HCl (Sotalol Hcl 80 Mg Tablet) 80 mg PO BID [facility] Last Admin: 05/31/22 10:01 Dose: 80 mg Documented By: COTEMA Trazodone HCl (Trazodone Hcl 100 Mg Tablet) 100 mg PO BEDTIME PRN PRN Reason: Sleep Labs CBC & Chem 7: 05/30/22 05:58 05/31/22 05:41 Labs: Laboratory Results - last 24 hr 05/31/22 05:41 Anion Gap 15 Estim Creat Clear Calc 97.0 Estimated GFR > 60 Random Glucose 101 Calcium 8.4 Magnesium 2.1 Microbiology Microbiology Results: Microbiology 05/29/22 17:46 Blood Culture - Preliminary Blood - Venous No growth after 24 hours. 05/29/22 17:46 Blood Culture - Preliminary Blood - Venous No growth after 24 hours. Assessment and Plan (1) Compression fracture of thoracic spine, non-traumatic: Status: Acute (2) Nonischemic cardiomyopathy: Status: Acute (3) Atrial fibrillation with rapid ventricular response: Status: Acute Plan This is a 67-year-old male with pertinent history of nonischemic cardiomyopathy, paroxysmal atrial fibrillation on Eliquis, COPD not on home oxygen, mixed hyperlipidemia, essential hypertension, gastroesophageal reflux disease, mood disorder who presents to the emergency department for evaluation of dyspnea. atrial fibrillation with rapid ventricular response s/p sotalol loading now in sinus, dc coreg eliquis Acute on chronic HFrEF EF 40-45% likely precipitated by rapid afib low dose IV lasix, change to oral monitor intake and output Dyspnea possibly r/t CHF, rapid afib resolved Back pain imaging with progression of mid dorsal compression vertebral fracture. Consulting Dr. Delgado, for possible vertebroplasty - will need to defer until HR under better control unclear etiology of nontraumatic compression fracture Hypotension noted in the ER. Improved with IV crystalloids no evidence of infection TSH wnl RASHIDA Creatinine improved from 1.46 to 0.82 follow BMP Essential hypertension Entresto DVT prophylaxis: On Eliquis Diet: Cardiac diet Full code Requires ongoing inpatient hospitalization for management of rapid afib, CHF requiring IV lasix, initiation of sotalol Quality Stroke Does the patient have a stroke diagnosis?: No VTE Prior VTE?: No VTE Risk Level:: Medical - moderate - high VTE Device Contraindication: Treatment Not Indicated VTE Drug Contraindication: N/A - Med Ordered
[2022-05-31] MEDS: oxyCODONE HCl Immed Release 5 MG TABLET PO (16:23)
--- NOTE | 2022-05-31 20:37 | ECG_ITS ---
Test Reason : CP Blood Pressure : / mmHG Vent. Rate : 060 BPM Atrial Rate : 060 BPM P-R Int : 152 ms QRS Dur : 082 ms QT Int : 424 ms P-R-T Axes : 040 049 032 degrees QTc Int : 424 ms Normal sinus rhythm Nonspecific ST abnormality Abnormal ECG When compared with ECG of 31-MAY-2022 08:55, Premature ventricular complexes are no longer Present Referred By: Brian Nieves Electronically Signed By:KING JAMES
[2022-05-31] MEDS: QUEtiapine Fumarate 300 MG TABLET PO (20:45)
[2022-05-31] MEDS: Atorvastatin Calcium 10 MG TABLET PO (20:45)
[2022-05-31] MEDS: Latanoprost 0.005 % Ophth Sol 2.5 ML DROPS 1 DROP EYE-BOTH (20:47)
[2022-06-01 03:31] VITALS: BP 94/63; PULSE 69; RESP 16; TEMP 36.6; O2SAT 92
[2022-06-01] MEDS: Acetaminophen 325 MG TABLET 650 MG PO (04:17)
[2022-06-01 08:00] VITALS: PULSE 69; RESP 18; TEMP 36.3; O2SAT 92
--- NOTE | 2022-06-01 08:01 | ECG_ITS ---
Test Reason : CP Blood Pressure : / mmHG Vent. Rate : 064 BPM Atrial Rate : 064 BPM P-R Int : 152 ms QRS Dur : 094 ms QT Int : 438 ms P-R-T Axes : 048 052 032 degrees QTc Int : 451 ms Normal sinus rhythm Normal ECG When compared with ECG of 31-MAY-2022 22:35, No significant change was found Referred By: Brian [facility] Electronically Signed By:KING JAMES
[2022-06-01] MEDS: Apixaban 5 MG TABLET PO (08:39)
[2022-06-01] MEDS: Omeprazole 40 MG CAPSULE.DR PO (08:39)
[2022-06-01] MEDS: Furosemide 20 MG/2 ML VIAL IVPUSH (08:39)
[2022-06-01] MEDS: Sennosides 8.6 MG TABLET 17.2 MG PO (08:39)
[2022-06-01] MEDS: Sotalol HCL 80 MG TABLET PO (08:39)
[2022-06-01] MEDS: 0.9 % Sodium Chloride Flush 3 ML SYRINGE IVFLUSH (08:40)
--- NOTE | 2022-06-01 10:37 | PM.DS ---
DS: Providers Provider Date of Service: 06/01/22 Date of admission: 05/30/22 10:52 Primary care physician: Rigoberto Madrigal MD Consults: 05/29/22 23:15 Consult to Physician Routine Consulting Provider: Wil Delgado Reason for consultation: vertebral compression fracture 05/30/22 07:54 Consult to Cardiology Routine Consulting Provider: Pipo Lane Reason for consultation: afib rvr, dyspnea Has provider been notified: No DS: Diagnosis Discharge Diagnosis (1) Atrial fibrillation with rapid ventricular response: Status: Acute (2) CHF exacerbation: Status: Acute DS: Summary Hospital Course Hospital Course: Chief Complaint: Dyspnea This is a 67-year-old male with pertinent history of nonischemic cardiomyopathy, paroxysmal atrial fibrillation on Eliquis, COPD not on home oxygen, mixed hyperlipidemia, essential hypertension, gastroesophageal reflux disease, mood disorder who presents to the emergency department for evaluation of dyspnea.? Patient states he has been having dyspnea, worse with exertion that has been ongoing for a while.? No upper respiratory tract symptoms.? No fever, chills, cough.? Does not think he had wheezing.? Admits orthopnea and PND.? Endorses fatigue and malaise.? Patient presented to the ER in April for nontraumatic intermittent low back pain.? He was admitted for AFib with RVR.? Patient presented again on 05/26 and was referred to Interventional Radiology as an outpatient for vertebroplasty as imaging revealed subacute compression fracture of T9.? Patient states the back pain has been ongoing and progressive.? In the emergency department today, CTA with progression of mid dorsal compression fracture.? Patient denies chest discomfort, palpitations, abdominal pain, changes in urinary or bowel habits.? He was found to be hypertensive in the ER and given IV Decadron. Hospital course: #.? Acute on chronic systolic heart failure in setting of chronic non-ischemic cardiomyopathy--treated with IV Lasix and appear compensated now will transition to oral Lasix, continue Sacubutril, coreg is now stopped since addition of sotalol #.? Paroxysmal atrial fibrillation on Eliquis: Started on Sotatolol and has converted to sinus, QTC within normal after 48 hours of cardiac monitoring #.? Back pain d/t compression fracture, pain is controlled at this point and can be considered for kyphoplasty on outpatient basis. #.? Hypotension--on presentation and resolved with IVF #.? Acute kidney injury stage I: resolved with IVF, #.? COPD: Continue home inhaler. No exacerbation #.? Essential hypertension:?continue Entresto and now Sotalol Time Spent with Patient Time attestation: Total time spent providing and/or coordinating discharge services: Discharge coordination time: Greater than 30 minutes Quality: Safe Use of Opioids Does Pt have an Active Cancer Diagnosis on the Problem List?: No Quality: Stroke Does the patient have a stroke diagnosis?: No Physical Exam Vital Signs: Vital Signs: Selected Entries 06/01/22 08:00 06/01/22 08:00 Temperature 97.4 F Pulse Rate 69 Respiratory Rate 18 Pulse Oximetry 92 Oxygen Delivery Me thod Room Air General: AO X 3, no acute distress Resp: CTA bilateral CVS: S1,S2,RRR GI: +BS, NT, no distention Skin: No rash Neuro: motor grossly intact Psych: appropriate affect Const: Other: General: AO X 3, no acute distress Resp: CTA bilateral CVS: S1,S2,RRR GI: +BS, NT, no distention Skin: No rash Neuro: motor grossly intact Psych: appropriate affect DS: Data Data Completed and Pending Labs on day of discharge: Laboratory Results - last 24 hr 05/31/22 05:41 Sodium 140 Potassium 4.8 Chloride 111 H Carbon Dioxide 19 L Anion Gap 15 BUN 19 H Creatinine 0.80 Estim Creat Clear Calc 97.0 Estimated GFR > 60 Random Glucose 101 Calcium 8.4 Magnesium 2.1 Preliminary micro results at discharge 05/29/22 17:46 Blood Culture - Preliminary Blood - Venous No growth after 24 hours. 05/29/22 17:46 Blood Culture - Preliminary Blood - Venous No growth after 24 hours. Discharge Plan Discharge Anticipated Discharge Date/Time: 05/31/22 11:22 Patient Disposition: Home, Self-Care Discharge Diagnosis: AFIB Referrals: Rigoberto Madrigal MD [Primary Care Provider] - 1 Week Discharge Medications: New sotalol 80 mg Tablet 80 mg PO BID Qty: 80 0RF Continued albuterol sulfate [Ventolin HFA] 90 mcg/actuation HFA aerosol inhaler 2 inh inhalation Q6H PRN (Reason: shortness of breath or wheezing) 30 Days Qty: 18 0RF Trelegy Ellipta 200-62.5-25 mcg blister with device 1 inh inhalation DAILY 30 Days Qty: 60 2RF ibuprofen 600 mg tablet 600 mg PO Q8H PRN (Reason: pain) 14 Days Qty: 30 0RF Linzess 145 mcg capsule 145 mcg PO DAILY Qty: 60 4RF dexlansoprazole 60 mg capsule,biphase delayed releas 60 mg PO DAILY Qty: 90 1RF metoclopramide HCl 10 mg tablet 10 mg PO QIDACHS Qty: 120 3RF cyclobenzaprine 5 mg tablet 5 mg PO TID PRN (Reason: back pain) 7 Days Qty: 21 0RF Eliquis 5 mg tablet 5 mg PO BID Qty: 60 0RF oxycodone 5 mg tablet 5 mg PO Q6H PRN (Reason: pain) Qty: 20 0RF Rx Instructions: Partial Fill upon patient request. lidocaine 4 % adhesive patch,medicated 1 patch topical DAILY PRN (Reason: pain) Qty: 30 0RF trazodone 100 mg tablet 100 - 200 mg PO BEDTIME PRN (Reason: Sleep) quetiapine 300 mg tablet 300 mg PO BEDTIME simvastatin 20 mg tablet 20 mg PO BEDTIME latanoprost 0.005 % drops 1 drp ophthalmic (eye) BEDTIME sacubitril-valsartan 49-51 mg tablet 1 tab PO BID senna 8.6 mg capsule 17.2 mg PO DAILY Discontinued carvedilol 25 mg Tablet 25 mg PO BID Qty: 60 0RF Protocol: Hold for SBP/HR < HOLD for SBP < : 90 HOLD for HR < : 60 Discharge Orders: Discharge Order (Routine); Ordered 06/01/22 Ordered By: Brian Nieves Diet: Advance to usual diet Activity on Discharge: As tolerated Stand Alone Forms: Patient Portal Discharge page Care Plan Goals: Control of AFIB Health Concerns: Atrial fibrilation Cardiomyopathy Plan of Treatment: Take all your medications as recommended and follow up with Doctor and Heart docto in a week Assessment: as above
--- NOTE | 2022-06-01 10:50 | MHC.CM.PN ---
IMM DELIVERED CM MET WITH PT, LIVES ALONE IN AN APT. NO SERVICES OR DME. +COVID VAX X 2, NO HCP, DECLINES AT THIS TIME. PCP DR. KHAN AT [facility]. DP: PT MEDICALLY CLEARED FOR DC HOME, NO SERVICES. BROTHER WILL TRANSPORT HOME.
--- NOTE | 2022-06-01 11:06 | P.PNCA_ITS ---
Subjective Subjective Date of Service: 06/01/22 Principal diagnosis: Atrial fibrillation, CHF Interval history: Patient feeling well. Maintain rhythm. No significant shortness of breath at this point in time. Complains of pain with coughing in the epigastric area. No bleeding issues or neurologic events. No orthopnea, PND. Review of Systems Review of Systems Yes all other systems are reviewed and are negative Physical Exam Vital Signs: Last Vital Signs Temp 97.4 F 06/01/22 08:00 Pulse 69 06/01/22 08:00 Resp 18 06/01/22 08:00 BP 94/63 06/01/22 03:31 Pulse Ox 92 06/01/22 08:00 O2 Del Method 06/01/22 08:00 O2 Flow Rate 2 05/29/22 20:00 BMI result Body Mass Index 23.9 Const General: cooperative, comfortable, no acute distress, alert and awake Nutritional Appearance: average body habitus Orientation/consciousness: patient oriented x3 Limitations: no limitations Neck Neck: Yes trachea midline, Yes supple and Yes no JVD Resp Effort & Inspection: normal respiratory effort Auscultation: clear to auscultation bilaterally Cardio Rate: regular rate Rhythm: regular rhythm and abnormal rhythm with ectopic beats Heart sounds: S1 normal heart sound present, S2 normal heart sound present, no click, no gallops and no murmurs GI Auscultation: normal bowel sounds Skin General skin exam: no rashes or lesions noted Neuro General: patient oriented x3 and no focal motor deficits Extrem General: Yes no clubbing, cyanosis or edema Objective Labs and Meds Result diagrams: 05/30/22 05:58 05/31/22 05:41 Progress Note: A&P Assessment and plan (1) Paroxysmal atrial fibrillation: Status: Acute Assessment and Plan: Paroxysmal atrial fibrillation remained suppressed on sotalol therapy. Continue the same. As long as QTC is below 460 milliseconds, patient can be discharged home today. Continue rhythm control approach. 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 Will require outpatient Holter monitor. Importance of rhythm control was discussed. This has help with management of his heart failure. Continue full oral anticoagulation, currently on Eliquis. (2) CHF exacerbation: Status: Acute Assessment and Plan: Advise CHF exacerbation with [id number] LV systolic dysfunction secondary to nonischemic cardiomyopathy. CHF with improved after maintain rhythm. Was diuresed gently. Currently not in heart failure. Lasix can not use as a p.r.n. basis as outpatient. CHF education to be provided. Due to low blood pressure has been off Entresto. Start valsartan 20 mg b.i.d. and discharged advised to monitor blood pressure at home. Continue sotalol as other neurohormonal modulator. Follow-up with his own fine arts teacher. Will sign of the case. Patient can be discharged home Time Spent With Patient Time: Total time managing care of this patient today ____ minutes. Progress Note: Quality Stroke Does the patient have a stroke diagnosis?: No Procedures Date of Service Date of Service: 06/01/22
[2022-06-01] MEDS: Valsartan 40 MG TABLET 20 MG PO (11:29)
== END 2022-06-01 13:00 | disposition home or self-care (01) | DRG 308 ==
LOC: HO.ED 16:26 → HO.EDOVER 23:18 → HO.S3 05-30 23:11
PROVIDERS: Emergency Medicine Emergency Medical Services; Physician Assistant Medical; Admitting Provider Student in an Organized Health Care Education/Training Program; Emergency Provider Internal Medicine; PCP Internal Medicine; Visit Provider Internal Medicine
DX: I48.0 Paroxysmal atrial fibrillation (principal); I50.23 Acute on chronic systolic (congestive) heart failure; N17.9 Acute kidney failure, unspecified; M48.54XA Collapsed vertebra, not elsewhere classified, thoracic region, initial encounter for fracture; I11.0 Hypertensive heart disease with heart failure; I42.8 Other cardiomyopathies; I95.9 Hypotension, unspecified; J43.2 Centrilobular emphysema; K21.9 Gastro-esophageal reflux disease without esophagitis; F32.A Depression, unspecified; E78.2 Mixed hyperlipidemia; Z20.822 Contact with and (suspected) exposure to COVID-19; Z87.891 Personal history of nicotine dependence; Z79.01 Long term (current) use of anticoagulants; Z79.899 Other long term (current) drug therapy
CPT/HCPCS: 0241U; 36415; 71045; 71275; 80048; 80076; 82533; 83605; 83735; 83880; 84443; 84484; 85025; 85379; 85610; 87040; 93005; 93306; 94640; 99218; 99285; J1100; J1160; J1940; Q9967

== ENCOUNTER → 2022-06-06 12:02 | Outpatient (BNVA) | payer MEDICARE, MEDICAID, SELFPAY | PROVIDERS: PCP Internal Medicine; Referring Provider Internal Medicine; Visit Provider Nurse Practitioner | DX: K59.04 Chronic idiopathic constipation (principal); K22.10 Ulcer of esophagus without bleeding; K59.9 Functional intestinal disorder, unspecified; Z86.010 Personal history of colon polyps; Z79.899 Other long term (current) drug therapy | CPT/HCPCS: 99212 ==

== ENCOUNTER 2022-07-05 12:17 | Emergency (ER) | payer MEDICARE, MEDICAID, SELFPAY ==
--- NOTE | ~2022-07-05 | XR_ITS ---
EXAMINATION: XR CHEST CLINICAL INFORMATION: Shortness of breath. COMPARISON: 05/29/2022 chest radiograph. TECHNIQUE: Frontal view of the chest was obtained. FINDINGS: No significant abnormality is noted involving the heart, lungs, mediastinum, bony thorax or soft tissues. XR/XR chest 1V IMPRESSION: No acute cardiopulmonary process.
--- NOTE | ~2022-07-05 | CT_ITS ---
EXAMINATION: CT ABDOMEN AND PELVIS WITHOUT CONTRAST CLINICAL INFORMATION: Abdominal pain, rule out complicated hernia. COMPARISON: CT scan of the abdomen and pelvis dated 05/26/2022. TECHNIQUE: Multidetector volumetric imaging was performed from the superior aspect of the liver through the pubic symphysis. Sagittal and coronal reformatted images were obtained on the technologist's workstation. Lack of intravenous and oral contrast limits visceral evaluation. This CT examination was performed using dose optimization techniques as appropriate, variously including the following: *Automated exposure control *Adjustment of mA and/or kV according to patient size (this includes techniques or standardized protocols for targeted exams where dose is matched to indication/reason for exam; i.e. extremities or head) *Use of iterative reconstruction technique DLP: 579 mGy-cm FINDINGS: LUNG BASES: The visualized lung bases are unremarkable. LIVER, GALLBLADDER, AND BILIARY TREE: Unremarkable. PANCREAS: Unremarkable. SPLEEN: Unremarkable. ADRENAL GLANDS: Unremarkable. KIDNEYS AND URETERS: Small low-attenuation foci are seen in the kidneys bilaterally. No nephrolithiasis or hydronephrosis. BLADDER: Unremarkable. GASTROINTESTINAL TRACT: The stomach and small bowel are unremarkable. The appendix is not not visualized. No right lower quadrant abnormality. The colon and rectum are unremarkable. ABDOMINAL WALL: No significant hernia is appreciated. LYMPH NODES: No lymphadenopathy. VASCULAR: Unremarkable. PELVIC VISCERA: Unremarkable. OSSEOUS STRUCTURES: There is generalized osteopenia. Moderate degenerative disc disease is seen at L4-5 and L5-S1. There is no acute fracture. CT/CT abdomen pelvis wo IV con IMPRESSION: 1. No acute intra-abdominal/pelvic abnormality to explain the patient's pain. No evidence for hernia. 2. Small low-attenuation foci in the kidneys bilaterally are too small adequately characterize, but demonstrate benign features and likely represent cysts. These were better seen on the previous contrast-enhanced study and do not require follow-up at this time. 3. L4-5 and L5-S1 moderate degenerative disc disease. Fleischner guidelines were followed.
--- NOTE | 2022-07-05 12:53 | ECG_ITS ---
Test Reason : ABDOMINAL PAIN Blood Pressure : / mmHG Vent. Rate : 084 BPM Atrial Rate : 084 BPM P-R Int : 146 ms QRS Dur : 076 ms QT Int : 362 ms P-R-T Axes : 047 055 060 degrees QTc Int : 427 ms Normal sinus rhythm Normal ECG When compared with ECG of 01-JUN-2022 08:01, No significant change was found Referred By: Razia Thomas Electronically Signed By:Casimiro Love
--- NOTE | 2022-07-05 12:59 | ED.GENADULT ---
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 Patient's symptoms started about a month ago after he was pushing his car felt something popped in his stomach since then has been having abdominal pain increase with taking a deep breath, no nausea, no vomiting, normal bowel movement. Patient also been having difficulty breathing especially with exertion and walking around that trigger his abdominal pain. No fever, no chills, no dysuria, no frequency urination, no blood in the urine, no bloody stool, passing flatus. Related Data Home Medications Medication Instructions Recorded Confirmed latanoprost 0.005 % eye drops 1 drp ophthalmic (eye) BEDTIME 03/27/20 05/29/22 quetiapine 300 mg tablet 300 mg PO BEDTIME 03/27/20 05/29/22 simvastatin 20 mg tablet 20 mg PO BEDTIME 03/27/20 05/29/22 trazodone 100 mg tablet 100 - 200 mg PO BEDTIME PRN Sleep 03/27/20 05/29/22 sennosides 8.6 mg capsule (senna) 17.2 mg PO DAILY 02/13/22 05/29/22 Previous Rx's Medication Instructions Recorded ibuprofen 600 mg tablet 600 mg PO Q8H PRN pain 14 days #30 04/19/22 tabs cyclobenzaprine 5 mg tablet 5 mg PO TID PRN back pain 7 days 04/29/22 #21 tabs apixaban 5 mg tablet (Eliquis) 5 mg PO BID #60 tabs 05/06/22 dexlansoprazole 60 mg 60 mg PO DAILY #90 caps 05/22/22 capsule,biphase delayed release linaclotide 145 mcg capsule 145 mcg PO DAILY #60 caps 05/22/22 (Linzess) metoclopramide HCl 10 mg tablet 10 mg PO QIDACHS #120 tabs 05/22/22 lidocaine 4 % topical patch 1 patch topical DAILY PRN pain #30 05/26/22 ea oxycodone 5 mg tablet 5 mg PO Q6H PRN pain #20 tabs 05/26/22 sotalol 80 mg tablet 80 mg PO BID #80 tabs 06/01/22 valsartan 40 mg tablet 20 mg PO BID #60 tabs 06/01/22 famotidine 40 mg tablet (Pepcid) 40 mg PO BEDTIME PRN heartburn #30 06/06/22 tabs Ventolin HFA 90 mcg/actuation 2 puff inhalation Q6H PRN for 06/25/22 aerosol inhaler (albuterol sulfate) wheezing #18 grams Trelegy Ellipta 200 mcg-62.5 1 inh inhalation DAILY 30 days #60 07/01/22 mcg-25 mcg powder for inhalation ea ([id number]) Allergies Allergy/AdvReac Type Severity Reaction Status Date / Time No Known Allergies Allergy Verified 06/06/22 12:42 [No Known Allergies*] Review of Systems Review of Systems: All other systems are reviewed and are negative Constitutional: Reports as per HPI and Reports no additional constitutional complaints Eyes: Reports as per HPI and Reports no additional eye complaints Reports system reviewed and no additional complaints, except as documented Cardiovascular: Reports as per HPI and Reports no additional cardiovascular complaints Respiratory: Reports as per HPI and Reports no additional respiratory complaints Gastrointestinal: Reports as per HPI and Reports no additional gastrointestinal complaints Genitourinary: Reports no additional female genitourinary complaints Musculoskeletal: Reports no additional musculoskeletal complaints Skin/Breast: Reports system reviewed and no additional complaints, except as docu Psychiatric: Reports no additional psychiatric complaints Endocrine: Reports no additional endocrine complaints Hematologic/Lymphatic: Reports no additional hematologic/lymphatic complaints Allergic/Immunologic: Reports no additional allergic/immunologic complaints Reports system reviewed and no additional complaints, except as documented and Reports Abnormal speech present [facility] Past Medical History Medical History CHF exacerbation Compression fracture of thoracic spine, non-traumatic Constipation COPD (chronic obstructive pulmonary disease) COPD (chronic obstructive pulmonary disease) Depression Dyspnea GERD (gastroesophageal reflux disease) Hyperlipidemia Hypertension Nonischemic cardiomyopathy Personal history of nicotine dependence Pulmonary nodules Tubular adenoma of colon Surgical History History of appendectomy History of gastric surgery History of surgery on left wrist (~03/21/10) Hx of cataract surgery (~07/02/10) Hx of colonoscopy (~08/24/06) Hx of endoscopy Family History Family History Mother Renal failure Father History of depression Brother Colon cancer Social History Social History Household Members: None Housing: Apartment Do you presently have visiting nurse or other home services: No Alcohol intake: former Patient Tobacco Use Status: Former Tobacco user Quit Date: pt stated quit this past september Tobacco use type: Cigarette Cigarette Packs Per Day: 0.5 Years Smoked: 51 (onset 14yo) e-Cigarette/Vaping Use: Never Used Second Hand Smoke Exposure: No Advance Directives: No Advance Directives Information Provided: No service: No Current occupational status: unemployed Physical Exam ED Vital Signs: Vital Signs - 24 hr 07/05/22 12:36 Temperature 97.0 F Pulse Rate 93 Respiratory Rate 18 Blood Pressure 127/55 L Pulse Oximetry 97 Oxygen Delivery Method Room Air BMI result Body Mass Index 24.1 Vital signs have been reviewed as appeared to be correct. Blood pressure normal. Heart rate normal. Respiration rate normal. Temperature normal. Oxygen saturation normal. Appearance: Alert. Oriented X3. No acute distress. Head: Normal external exam. Normocephalic. Atraumatic. No Blair signs noted. No raccoon eyes noted Eyes: PERRLA. EOMI. Conjunctiva and sclera normal. Eyelids normal. ENT: TM's Normal. Pharynx normal. Uvula midline. Moist mucous membranes. No trismus noted. No drooling noted. No muffled voice noted. Neck: Normal inspection. Neck supple. FROM. No adenopathy. Thyroid Normal. No meningeal signs. No neck mass noted. CVS: Normal heart rate and rhythm. Heart sound normal. No murmurs noted. Pulses normal throughout. Respiratory: No respiratory distress. Painless inspiration. Breath sounds normal. No wheezes/rales/rhonchi noted. Chest nontender. No accessory muscle usage noted or decreased air movement noted. Abdomen: Soft and nontender. Bowel sounds normal in all 4 quadrants. No distention noted. No organomegaly noted. No visible injury noted. Back: No CVA tenderness. Full range of motion noted. Skin: Skin warm and dry. Normal skin color. Normal skin turgor. No rashes/lesions/lacerations noted. Extremities: No lower extremity edema. Extremities exhibit normal range of motion. Extremities nontender. Neuro: Oriented X 3. Cranial nerve exam: II-XII are grossly intact No motor deficit. No sensory deficit. Reflexes normal. Course Course Course Narrative: 67-year-old male came in with bilateral chest pain which appears to be muscular, unremarkable EKG, unremarkable cardiac markers, labs are unremarkable, old EKG showed patient with thoracic vertebral compression fracture and stable 4.5 cm ascending aorta aneurysm will send the patient to Dr. 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 Medications Administered Discontinued Medications Generic Name Dose Route Start Last Admin Trade Name Freq PRN Reason Stop Dose Admin Sodium Chloride 1,000 mls @ 999 mls/hr 07/05/22 12:53 07/05/22 13:54 Ns IV 07/05/22 13:53 999 mls/hr .Q1H1M ONE Administration Medical Decision Making Differential Diagnosis Differential Diagnoses: The differential diagnosis associated with the presentation includes (Muscular pain, ACS, complicated hernia, CHF, pneumonia.) Lab Data MDM Lab Attestation statement: I reviewed the patient's lab results. 07/05/22 13:14 07/05/22 13:14 Labs: Lab Results 07/05/22 07/05/22 07/05/22 Range/Units 13:14 13:14 13:14 WBC 5.1 (4.8-10.8) X10*3/uL RBC 4.60 (4.60-5.80) X10*6/uL Hgb 13.5 L (14.0-18.0) g/dl Hct 41.0 L (42.0-52.0) % MCV 89.1 (80.0-98.0) fL MCH 29.3 (27.0-33.0) pg MCHC 32.9 (31.0-36.0) g/dl RDW 12.6 (11.0-16.0) % Plt Count 170 (160-400) X10*3/uL MPV 9.5 (9.4-12.4) fL Immature Gran % (Auto) 0.2 (0.0-0.4) % Neut % (Auto) 57.4 (45-73) % Lymph % (Auto) 31.7 (20-40) % [place] % (Auto) 9.3 (2-11) % Eos % (Auto) 1.0 (0-4) % Baso % (Auto) 0.4 (0-2) % Lymph # (Auto) 1.6 (1.2-4.9) X10*3/uL [place] # (Auto) 0.5 (0.1-1.2) X10*3/uL Eos # (Auto) 0.1 (0.0-0.4) X10*3/uL Baso # (Auto) 0.0 (0.0-0.2) X10*3/uL Abs Immat Gran (auto) 0.01 (0.00-0.03) X10*3/uL Absolute Neuts (auto) 3.0 (2.0-8.3) x10*3/uL Absolute Nucleated RBC 0.000 (0.0-0.012) X10*3/uL Nucleated RBC % (auto) 0.0 (0.0-0.2) /100WBC Sodium 138 (135-145) mmol/L Potassium 4.1 (3.3-5.1) mmol/L Chloride 111 H (96-108) mmol/L Carbon Dioxide 20 L (22-29) mmol/L Anion Gap 11 L (12-20) BUN 24 H (9-16) mg/dL Creatinine 1.04 (0.5-1.4) mg/dL Estim Creat Clear Calc 72.4 Estimated GFR > 60 Random Glucose 98 (60-115) mg/dL Calcium 8.4 (8.4-10.2) mg/dL Total Bilirubin 0.9 (0.0-1.0) mg/dL Direct Bilirubin 0.3 (0.0-0.5) mg/dL AST 19 (5-37) U/L ALT 30 (0-40) U/L Alkaline Phosphatase 78 (39-117) U/L Troponin I High Sens < 3.5 (<3.5-35.0) ng/L B-Natriuretic Peptide (<100) pg/mL Total Protein 6.4 L (6.5-8.0) g/dL Albumin 3.6 (3.5-5.0) g/dL Lipase 28 (8-78) U/L Influenza Type A (PCR) (Negative) Influenza Type B (PCR) (Negative) RSV RNA Qual (PCR) (Negative) SARS-CoV-2 RNA (RT-PCR) (Negative) 07/05/22 07/05/22 Range/Units 13:14 13:14 WBC (4.8-10.8) X10*3/uL RBC (4.60-5.80) X10*6/uL Hgb (14.0-18.0) g/dl Hct (42.0-52.0) % MCV (80.0-98.0) fL MCH (27.0-33.0) pg MCHC (31.0-36.0) g/dl RDW (11.0-16.0) % Plt Count (160-400) X10*3/uL MPV (9.4-12.4) fL Immature Gran % (Auto) (0.0-0.4) % Neut % (Auto) (45-73) % Lymph % (Auto) (20-40) % [place] % (Auto) (2-11) % Eos % (Auto) (0-4) % Baso % (Auto) (0-2) % Lymph # (Auto) (1.2-4.9) X10*3/uL [place] # (Auto) (0.1-1.2) X10*3/uL Eos # (Auto) (0.0-0.4) X10*3/uL Baso # (Auto) (0.0-0.2) X10*3/uL Abs Immat Gran (auto) (0.00-0.03) X10*3/uL Absolute Neuts (auto) (2.0-8.3) x10*3/uL Absolute Nucleated RBC (0.0-0.012) X10*3/uL Nucleated RBC % (auto) (0.0-0.2) /100WBC Sodium (135-145) mmol/L Potassium (3.3-5.1) mmol/L Chloride (96-108) mmol/L Carbon Dioxide (22-29) mmol/L Anion Gap (12-20) BUN (9-16) mg/dL Creatinine (0.5-1.4) mg/dL Estim Creat Clear Calc Estimated GFR Random Glucose (60-115) mg/dL Calcium (8.4-10.2) mg/dL Total Bilirubin (0.0-1.0) mg/dL Direct Bilirubin (0.0-0.5) mg/dL AST (5-37) U/L ALT (0-40) U/L Alkaline Phosphatase (39-117) U/L Troponin I High Sens (<3.5-35.0) ng/L B-Natriuretic Peptide < 10 (<100) pg/mL Total Protein (6.5-8.0) g/dL Albumin (3.5-5.0) g/dL Lipase (8-78) U/L Influenza Type A (PCR) NEGATIVE (Negative) Influenza Type B (PCR) NEGATIVE (Negative) RSV RNA Qual (PCR) NEGATIVE (Negative) SARS-CoV-2 RNA (RT-PCR) NEGATIVE (Negative) Independent Interpretation I performed an independent interpretation of an: EKG (Normal sinus rhythm at 84 beats per minutes, normal axis deviation, normal intervals, no ST-T changes.), Plain X-Ray (Chest: No acute intrathoracic pathology.) and CT Scan (Abdomen and pelvis: No acute intra-abdominal pathology.) Radiology Impression Discussion of test interpretation with radiology: I have reviewed the radiologist's reading. Discharge Plan Discharge Clinical Impression: Acute myofascial pain, Aortic aneurysm, Closed compression fracture of thoracic vertebra Patient Disposition: Home, Self-Care Instructions: Musculoskeletal Pain (ED) Prescriptions: No Action ibuprofen 600 mg tablet 600 mg PO Q8H PRN (Reason: pain) 14 Days Qty: 30 0RF Linzess 145 mcg capsule 145 mcg PO DAILY Qty: 60 4RF dexlansoprazole 60 mg capsule,biphase delayed releas 60 mg PO DAILY Qty: 90 1RF metoclopramide HCl 10 mg tablet 10 mg PO QIDACHS Qty: 120 3RF albuterol sulfate [Ventolin HFA] 90 mcg/actuation HFA aerosol inhaler 2 puff inhalation Q6H PRN (Reason: for wheezing) Qty: 18 0RF Trelegy Ellipta 200-62.5-25 mcg blister with device 1 inh inhalation DAILY 30 Days Qty: 60 0RF cyclobenzaprine 5 mg tablet 5 mg PO TID PRN (Reason: back pain) 7 Days Qty: 21 0RF Eliquis 5 mg tablet 5 mg PO BID Qty: 60 0RF oxycodone 5 mg tablet 5 mg PO Q6H PRN (Reason: pain) Qty: 20 0RF Rx Instructions: Partial Fill upon patient request. lidocaine 4 % adhesive patch,medicated 1 patch topical DAILY PRN (Reason: pain) Qty: 30 0RF sotalol 80 mg Tablet 80 mg PO BID Qty: 80 0RF valsartan 40 mg tablet 20 mg PO BID Qty: 60 0RF trazodone 100 mg tablet 100 - 200 mg PO BEDTIME PRN (Reason: Sleep) quetiapine 300 mg tablet 300 mg PO BEDTIME simvastatin 20 mg tablet 20 mg PO BEDTIME latanoprost 0.005 % drops 1 drp ophthalmic (eye) BEDTIME senna 8.6 mg capsule 17.2 mg PO DAILY famotidine [Pepcid] 40 mg tablet 40 mg PO BEDTIME PRN (Reason: heartburn) Qty: 30 6RF Referrals: Rigoberto Madrigal MD [Primary Care Provider] - David Eng MD [Physician] -
[2022-07-05 13:20] LABS: MANUAL DIFF FLAG NO
[2022-07-05 13:22] LABS: Basophils Percent Auto 0.4 % (0-2); Eosinophils Absolute Auto 0.1 X10*3/uL (0.0-0.4); Hemoglobin 13.5 g/dl (14.0-18.0); Imm Gran Abs Auto 0.01 X10*3/uL (0.00-0.03); Imm Gran Pct Auto 0.2 % (0.0-0.4); Lymphocytes Absolute Auto 1.6 X10*3/uL (1.2-4.9); Lymphocytes Percent Auto 31.7 % (20-40); Mean Corpuscular HGB Conc 32.9 g/dl (31.0-36.0); Mean Corpuscular Hemoglobin 29.3 pg (27.0-33.0); Mean Corpuscular Volume 89.1 fL (80.0-98.0); Mean Platelet Volume 9.5 fL (9.4-12.4); Monocytes Absolute Auto 0.5 X10*3/uL (0.1-1.2); Monocytes Percent Auto 9.3 % (2-11); Neutrophils Percent Auto 57.4 % (45-73); Platelet Count 170 X10*3/uL (160-400); Red Cell Distribution Width 12.6 % (11.0-16.0); White Blood Count 5.1 X10*3/uL (4.8-10.8)
[2022-07-05 13:50] LABS: Troponin-I High Sensitivity < 3.5 ng/L (<3.5-35.0)
[2022-07-05 13:51] LABS: Alanine Aminotransferase 30 U/L (0-40); Albumin Level 3.6 g/dL (3.5-5.0); Alkaline Phosphatase 78 U/L (39-117); Anion Gap 11 (12-20); Aspartate Amino Transferase 19 U/L (5-37); Bilirubin Direct 0.3 mg/dL (0.0-0.5); Bilirubin Total 0.9 mg/dL (0.0-1.0); Blood Urea Nitrogen 24 mg/dL (9-16); Calcium 8.4 mg/dL (8.4-10.2); Carbon Dioxide 20 mmol/L (22-29); Chloride 111 mmol/L (96-108); Creatinine Clr Calc Pharmacy 72.4; Estimated Glomerular Filt Rate > 60; Glucose Random 98 mg/dL (60-115); Lipase 28 U/L (8-78); Potassium 4.1 mmol/L (3.3-5.1); Sodium 138 mmol/L (135-145); Total Protein 6.4 g/dL (6.5-8.0)
[2022-07-05] MEDS: 0.9 % Sodium Chloride 1,000 ML 999 ML IV (13:54)
[2022-07-05 14:06] LABS: Influenza A PCR NEGATIVE (Negative); Influenza B PCR NEGATIVE (Negative); Resp Syncy Virus RNA Qual PCR NEGATIVE (Negative); SARS COV2 PCR INHOUSE NEGATIVE (Negative)
[2022-07-05 14:47] LABS: B Type Natriuretic Peptide < 10 pg/mL (<100)
== END 2022-07-05 16:38 | disposition home or self-care (01) ==
PROVIDERS: Emergency Provider Emergency Medicine; PCP Internal Medicine
DX: S22.9XXA Fracture of bony thorax, part unspecified, initial encounter for closed fracture (principal); R06.02 Shortness of breath; M79.10 Myalgia, unspecified site; I71.9 Aortic aneurysm of unspecified site, without rupture; R10.9 Unspecified abdominal pain; X58.XXXA Exposure to other specified factors, initial encounter; Y93.9 Activity, unspecified; Y92.9 Unspecified place or not applicable; Y99.9 Unspecified external cause status; Z20.822 Contact with and (suspected) exposure to COVID-19; Z20.828 Contact with and (suspected) exposure to other viral communicable diseases; Z87.891 Personal history of nicotine dependence; Z79.899 Other long term (current) drug therapy
CPT/HCPCS: 0241U; 36415; 71045; 74176; 80048; 80076; 83690; 83880; 84484; 85025; 93005; 99284

== ENCOUNTER 2022-08-13 09:19 | Outpatient (REF) | payer MEDICARE, MEDICAID, SELFPAY ==
--- NOTE | ~2022-08-13 | CT_ITS ---
EXAMINATION: CT CHEST WITHOUT CONTRAST CLINICAL INFORMATION: Solitary pulmonary nodule. COMPARISON: 04/05/2022 and studies dating back to 01/22/2018. TECHNIQUE: Multidetector volumetric CT imaging of the chest was done. Axial MIP volume rendering provided. Sagittal and coronal reformatted images were obtained. This CT examination was performed using dose optimization techniques as appropriate, variously including the following: *Automated exposure control *Adjustment of mA and/or kV according to patient size (this includes techniques or standardized protocols for targeted exams where dose is matched to indication/reason for exam; i.e. extremities or head) *Use of iterative reconstruction technique DLP: 136 mGy-cm FINDINGS: LUNGS: Central airways are patent. There is some focal bronchial wall thickening and bronchiectasis seen within the right middle lobe and right upper lobe. There are significant changes of paraseptal and centrilobular emphysema, more prominent within the right lung. There is a region of parenchymal consolidation with adjacent reticulation along the right major and minor fissures. There is some apical pleural-parenchymal scarring present. There are some sub-4 mm densities present. A few calcified granulomas are present. There are some scattered ill-defined hazy density seen within the right upper lobe peripherally with the appearance of possible endobronchial disease related to mucous plugging or infectious process. This was not definitely present on previous studies. Within the right apex on image [address] series #5 there is a 1.1 x 0.6 cm density containing some calcification within it. This is a stable finding. Within the right lower lobe about the lateral peripheral region, there are 2 adjacent densities one measuring 5 mm in diameter and the other measuring 4 mm in diameter, which are not calcified and ly on image 323 of 526 and 314 of 526. I cannot definitely visualize these on previous studies. These were not previously identified. Within the right lower lobe on image 205 of 526 there is an 8 x 7 mm ill-defined density, which is not calcified. I do not see this finding on prior studies. This was not previously identified. MEDIASTINUM: Visualized thyroid gland appears unremarkable. Heart normal size. No pericardial effusion. The ascending thoracic aorta is dilated at 4.5 cm in diameter. This is stable since previous study of 11/02/2020. No hilar lymphadenopathy is appreciated. There is a 1 cm short axis right paratracheal lymph node. CORONARY ARTERY CALCIFICATION: Coronary artery calcification is present. PLEURA: There is no pleural effusion. AXILLA: No lymphadenopathy. UPPER ABDOMEN: There is a small hiatal hernia present. OSSEOUS STRUCTURES: Multilevel degenerative disc disease is seen within the thoracic spine. There is minimal scoliosis convex left. There is a superior endplate compression fracture with approximately 60% loss of height anteriorly of the T9 vertebral body and an approximately 30% anterior compression fracture of T7. The T7 compression fracture has progressed since previous CT scan of May 29, 2022 with what appears to be some mild progression also of the T9 vertebral body fracture. CT/CT chest wo IV con IMPRESSION: Severe changes of paraseptal and centrilobular emphysema. New region of consolidation with air bronchograms within segments of the right middle lobe and right upper lobe. Suspicious appearing right lower lobe 8 mm density. New-appearing 5 and 4 mm right lower lobe densities. Stable 4.5 cm ascending thoracic aortic aneurysm. Right lower lobe densities with hazy margins peripherally, which have the appearance of endobronchial disease, which may be related to mucous plugging or infectious process. According to the UPDATED 2017 Fleischner Society recommendations, the advised follow-up imaging for a single solid nodule measuring 8 mm or greater is: Consider CT, PET/CT, or tissue sampling at 3 months. Even though this is not a single nodule being present, it has suspicious features that are different than the other nodular densities and therefore the above recommendation is suggested.
== END 2022-08-13 09:20 | disposition home or self-care (01) ==
LOC: HO.CT 09:19
PROVIDERS: Visit Provider Hospitalist
DX: R91.1 Solitary pulmonary nodule (principal)
CPT/HCPCS: 71250

== ENCOUNTER → 2022-08-16 14:15 | Outpatient (BNVA) | payer MEDICARE, MEDICAID, SELFPAY | PROVIDERS: PCP Internal Medicine; Visit Provider Hospitalist | DX: J43.2 Centrilobular emphysema (principal); J18.9 Pneumonia, unspecified organism; R91.8 Other nonspecific abnormal finding of lung field; R06.00 Dyspnea, unspecified; S22.000A Wedge compression fracture of unspecified thoracic vertebra, initial encounter for closed fracture | CPT/HCPCS: 99212 ==

== ENCOUNTER 2022-08-21 10:25 | Emergency (ER) | payer MEDICARE, MEDICAID, SELFPAY ==
--- NOTE | ~2022-08-21 | XR_ITS ---
EXAMINATION: XR LUMBOSACRAL SPINE CLINICAL INFORMATION: Low back pain for 6 weeks. COMPARISON: 02/10/[address] scan of the chest, abdomen and pelvis dated 07/05/2022. TECHNIQUE: Three views of the lumbosacral spine. FINDINGS: There is generalized osteopenia. There is an approximate 20% superior endplate compression deformity at L1. Severe degenerative disc disease is seen at L5-S1. Mild disc space narrowing is seen at L4-L5. Bilateral facet arthropathy seen at L5-S1. The soft tissues are unremarkable. XR/XR lumbar spine 2-3V IMPRESSION: 1. Approximate 20% superior endplate compression deformity of L1 is of indeterminate age, but was not seen previously.
[2022-08-21 11:00] VITALS: BP 108/78; PULSE 78; RESP 18; TEMP 36.4; O2SAT 95; BMI 25.1
--- NOTE | 2022-08-21 11:04 | ED.GENADULT ---
HPI - General Adult General Chief complaint: Back Pain/Injury <Trent Ruvalcaba - Last Filed: 08/21/22 11:05> Stated complaint: Back pain <Trent Ruvalcaba - Last Filed: 08/21/22 11:05> Time Seen by Provider: 08/21/22 11:02 <Trent Ruvalcaba - Last Filed: 08/21/22 11:05> Source: patient and security services specialist <Amarilis Tsai NP - Last Filed: 08/21/22 17:22> Mode of arrival: ambulatory <Amarilis Tsai NP - Last Filed: 08/21/22 17:22> Limitations: language barrier <Amarilis Tsai NP - Last Filed: 08/21/22 17:22> History of Present Illness HPI narrative: 67-year-old male with a past medical history of paroxysmal AFib, nonischemic cardiomyopathy, COPD and hyperlipidemia Presents to the ER with complaints of lower back pain. Patient reports he was driving his car and pressed on the brake and felt a cracking sensation in his lower back today. Patient reported severe pain when it 1st began. Pain is now worsened with movement. No radiation of pain. No numbness or tingling in the legs. No weakness in the legs. No bowel or bladder incontinence. No fevers, chills, saddle anesthesia. Patient ambulatory <Amarilis Tsai NP - Last Filed: 08/21/22 17:22> Related Data Home medications: Home Medications Medication Instructions Recorded Confirmed latanoprost 0.005 % eye drops 1 drp ophthalmic (eye) BEDTIME 03/27/20 05/29/22 quetiapine 300 mg tablet 300 mg PO BEDTIME 03/27/20 07/08/22 simvastatin 20 mg tablet 20 mg PO BEDTIME 03/27/20 07/08/22 trazodone 100 mg tablet 100 - 200 mg PO BEDTIME PRN Sleep 03/27/20 05/29/22 sennosides 8.6 mg capsule (senna) 17.2 mg PO DAILY 02/13/22 05/29/22 Previous Rx's Medication Instructions Recorded ibuprofen 600 mg tablet 600 mg PO Q8H PRN pain 14 days #30 04/19/22 tabs cyclobenzaprine 5 mg tablet 5 mg PO TID PRN back pain 7 days 04/29/22 #21 tabs apixaban 5 mg tablet (Eliquis) 5 mg PO BID #60 tabs 05/06/22 dexlansoprazole 60 mg 60 mg PO DAILY #90 caps 05/22/22 capsule,biphase delayed release linaclotide 145 mcg capsule 145 mcg PO DAILY #60 caps 05/22/22 (Linzess) metoclopramide HCl 10 mg tablet 10 mg PO QIDACHS #120 tabs 05/22/22 lidocaine 4 % topical patch 1 patch topical DAILY PRN pain #30 05/26/22 ea oxycodone 5 mg tablet 5 mg PO Q6H PRN pain #20 tabs 05/26/22 sotalol 80 mg tablet 80 mg PO BID #80 tabs 06/01/22 valsartan 40 mg tablet 20 mg PO BID #60 tabs 06/01/22 famotidine 40 mg tablet (Pepcid) 40 mg PO BEDTIME PRN heartburn #30 06/06/22 tabs Ventolin HFA 90 mcg/actuation 2 puff inhalation Q6H PRN for 07/16/22 aerosol inhaler (albuterol sulfate) wheezing #18 grams Trelegy Ellipta 200 mcg-62.5 1 ea PO DAILY #60 ea 07/22/22 mcg-25 mcg powder for inhalation ([id number]) gabapentin 300 mg capsule 600 mg PO BEDTIME 30 days #60 caps 08/16/22 lidocaine 5 % topical patch 1 patch topical DAILY #15 ea 08/21/22 (Lidoderm) oxycodone 5 mg tablet 5 mg PO Q8H PRN pain #10 tabs 08/21/22 <Trent Ruvalcaba - Last Filed: 08/21/22 11:05> Allergies/adverse reactions: Allergies Allergy/AdvReac Type Severity Reaction Status Date / Time No Known Allergies Allergy Verified 08/21/22 10:59 [No Known Allergies*] <Trent Ruvalcaba - Last Filed: 08/21/22 11:05> Review of Systems Review of Systems: Yes all other systems are reviewed and are negative <Amarilis Tsai NP - Last Filed: 08/21/22 17:22> Constitutional: Constitutional: Reports no additional constitutional complaints, Denies body ache(s), Denies chills, Denies fever(s), Denies headache(s) and Denies weakness <Amarilis Tsai ANIMAL HUSBANDRY WORKER - Last Filed: 08/21/22 17:22> Eyes: Eyes: Reports no additional eye complaints and Denies change in vision <Amarilis Tsai ANIMAL HUSBANDRY WORKER - Last Filed: 08/21/22 17:22> ENT: Reports system reviewed and no additional complaints, except as documented, Denies dizziness, Denies headache(s), Denies nasal congestion, Denies nasal discharge and Denies neck pain <Amarilis Tsai ANIMAL HUSBANDRY WORKER - Last Filed: 08/21/22 17:22> Cardiovascular: Cardiovascular: Reports no additional cardiovascular complaints, Denies chest pain, Denies leg edema and Denies dyspnea <Amarilis Tsai ANIMAL HUSBANDRY WORKER - Last Filed: 08/21/22 17:22> Respiratory: Respiratory: Reports no additional respiratory complaints, Denies cough and Denies dyspnea <Amarilis Tsai ANIMAL HUSBANDRY WORKER - Last Filed: 08/21/22 17:22> Gastrointestinal: Gastrointestinal: Reports no additional gastrointestinal complaints, Denies abdominal pain, Denies diarrhea, Denies nausea and Denies vomiting <Amarilis Tsai ANIMAL HUSBANDRY WORKER - Last Filed: 08/21/22 17:22> Genitourinary: Genitourinary: Denies urinary incontinence <Amarilis Tsai ANIMAL HUSBANDRY WORKER - Last Filed: 08/21/22 17:22> Musculoskeletal: Musculoskeletal: Reports no additional musculoskeletal complaints, Reports back pain, Denies arthralgias, Denies joint swelling, Denies neck pain, Denies numbness and Denies tingling <Amarilis Tsai ANIMAL HUSBANDRY WORKER - Last Filed: 08/21/22 17:22> Integumentary/Breasts: Skin/Breast: Reports system reviewed and no additional complaints, except as docu and Denies rash <Amarilis Tsai ANIMAL HUSBANDRY WORKER - Last Filed: 08/21/22 17:22> Neurologic: Reports system reviewed and no additional complaints, except as documented, Denies dizziness, Denies headache(s), Denies numbness, Denies tingling and Denies weakness <Amarilisgabe Tsai NP - Last Filed: 08/21/22 17:22> [facility] Past Medical History Attestation statement: The following information was validated with the patient. <Amarilis Tsai NP - Last Filed: 08/21/22 17:22> Source: old records reviewed and nursing notes reviewed <Amarilis Tsai NP - Last Filed: 08/21/22 17:22> Medical History: Medical History CHF exacerbation Compression fracture of body of thoracic vertebra Compression fracture of thoracic spine, non-traumatic Constipation COPD (chronic obstructive pulmonary disease) COPD (chronic obstructive pulmonary disease) Depression Dyspnea GERD (gastroesophageal reflux disease) History of alcohol abuse Hyperlipidemia Hypertension Nonischemic cardiomyopathy Personal history of nicotine dependence Pneumonia Pulmonary nodules Tubular adenoma of colon <Trent Ruvalcaba - Last Filed: 08/21/22 11:05> Surgical History: Surgical History History of appendectomy History of gastric surgery History of surgery on left wrist (~03/21/10) Hx of cataract surgery (~07/02/10) Hx of colonoscopy (~02/13/06) Hx of endoscopy <Trent Ruvalcaba - Last Filed: 08/21/22 11:05> Family History Family History: Family History Mother Renal failure Father History of depression Brother Colon cancer <Trent Ruvalcaba - Last Filed: 08/21/22 11:05> Social History Social History: Social History Household Members: None Housing: Apartment Are you a primary live in caregiver to a significant other at home: No Do you presently have visiting nurse or other home services: No Alcohol intake: former Patient Tobacco Use Status: Former Tobacco user Quit Date: 01/2022 Tobacco use type: Cigarette Cigarette Packs Per Day: 0.5 Years Smoked: 40+ e-Cigarette/Vaping Use: Never Used Second Hand Smoke Exposure: No Advance Directives: No Advance Directives Information Provided: No service: No Current occupational status: unemployed <Trent Ruvalcaba - Last Filed: 08/21/22 11:05> Physical Exam ED Vital Signs: Vital Signs - 24 hr 08/21/22 11:00 08/21/22 14:48 08/21/22 15:30 Temperature 97.5 F 97.6 F 97.6 F Pulse Rate 78 71 72 Respiratory Rate 18 16 20 Blood Pressure 108/78 125/87 139/99 H Pulse Oximetry 95 95 94 Oxygen Delivery Method Room Air Room Air Room Air BMI result Body Mass Index 25.1 <Trent Ruvalcaba - Last Filed: 08/21/22 11:05> Vital Signs - 24 hr 08/21/22 11:00 08/21/22 14:48 08/21/22 15:30 Temperature 97.5 F 97.6 F 97.6 F Pulse Rate 78 71 72 Respiratory Rate 18 16 20 Blood Pressure 108/78 125/87 139/99 H Pulse Oximetry 95 95 94 Oxygen Delivery Method Room Air Room Air Room Air BMI result Body Mass Index 25.1 <Amarilis Tsai NP - Last Filed: 08/21/22 17:22> Const General: cooperative, healthy appearing, comfortable and no acute distress <Amarilis Tsai NP - Last Filed: 08/21/22 17:22> Orientation/consciousness: patient oriented x3 <Amarilis Tsai NP - Last Filed: 08/21/22 17:22> Limitations: no limitations <Amarilis Tsai NP - Last Filed: 08/21/22 17:22> HENAL Head: Yes normal to inspection <Amarilis Tsai NP - Last Filed: 08/21/22 17:22> Ears: hearing grossly normal bilaterally <Amarilis Tsai NP - Last Filed: 08/21/22 17:22> General nose exam: Normal external nose present <Amarilis Tsai NP - Last Filed: 08/21/22 17:22> Face and sinus: Yes normal facial exam <Amarilis Tsai NP - Last Filed: 08/21/22 17:22> Mouth: Normal oral and palatal mucosa present <Amarilis Tsai NP - Last Filed: 08/21/22 17:22> Throat: Yes posterior oropharynx normal <Amarilis Tsai ANIMAL HUSBANDRY WORKER - Last Filed: 08/21/22 17:22> Eyes General: appearance normal, both eyes and all related structures <Amarilis Tsai ANIMAL HUSBANDRY WORKER - Last Filed: 08/21/22 17:22> Pupils: Equal, round and reactive pupils present <Amarilis Tsai ANIMAL HUSBANDRY WORKER - Last Filed: 08/21/22 17:22> Neck Neck: Yes normal visual inspection and Yes full ROM <Amarilis Tsai, ANIMAL HUSBANDRY WORKER - Last Filed: 08/21/22 17:22> Chest Chest palpation & inspection: normal inspection of the chest <Amarilis Tsai ANIMAL HUSBANDRY WORKER - Last Filed: 08/21/22 17:22> Resp Effort & Inspection: normal respiratory effort <Amarilis Tsai ANIMAL HUSBANDRY WORKER - Last Filed: 08/21/22 17:22> Cardio Peripheral pulses: Peripheral pulses 2+ throughout <Amarilis Tsai ANIMAL HUSBANDRY WORKER - Last Filed: 08/21/22 17:22> GI Inspection: Yes normal to inspection <Amarilis Tsai, ANIMAL HUSBANDRY WORKER - Last Filed: 08/21/22 17:22> Back/Spine/Pelvis Other: patient with point tenderness over the lumbar spine with no step-offs deformities. <Amarilis Tsai ANIMAL HUSBANDRY WORKER - Last Filed: 08/21/22 17:22> Skin General skin exam: no rashes or lesions noted <Amarilis Tsai ANIMAL HUSBANDRY WORKER - Last Filed: 08/21/22 17:22> Neuro General: patient oriented x3 and moves all extremities <Amarilis Tsai ANIMAL HUSBANDRY WORKER - Last Filed: 08/21/22 17:22> Cranial nerves: Yes CN's II-XII intact bilaterally, Yes Equal, round and reactive pupils present, Yes Bilaterally intact EOM present, Yes Nystagmus not present, Yes Normal facial strength present and Yes Midline tongue present <Amarilis Tsai ANIMAL HUSBANDRY WORKER - Last Filed: 08/21/22 17:22> Cognition (Neuro): normal cognition <Amarilis Tsai ANIMAL HUSBANDRY WORKER - Last Filed: 08/21/22 17:22> Gait exam (Neuro): Normal gait present <Amarilis Tsai NP - Last Filed: 08/21/22 17:22> Motor exam (neuro): 5/5 motor strength present throughout <Amarilis Tsai NP - Last Filed: 08/21/22 17:22> Sensory Exam: Normal double simultaneous stimulation for sensation <Amarilis Tsai NP - Last Filed: 08/21/22 17:22> Deep tendon reflexes (DTR's): Right patellar reflex intensity grade: 2+ and Left patellar reflex intensity grade: 2+ <Amarilis Tsai NP - Last Filed: 08/21/22 17:22> Extrem General: Yes normal to inspection, Yes no pedal edema and Yes no calf tenderness <mAarilis Tsai NP - Last Filed: 08/21/22 17:22> Course Course Course Narrative: 67-year-old male presents for evaluation of back pain. He reports he felt a crack in his lower back yesterday. He reports he is due to ?have concrete in my back. ? X-ray ordered. No numbness, tingling of the extremity weakness <Trent Ruvalcaba - Last Filed: 08/21/22 11:05> Reevaluation(s) Reevaluation #1: x-ray shows a compression fracture at L1. No neurological deficits or red flag symptoms. Patient is ambulatory. Patient reports he has plans to follow-up for kyphoplasty. he reports pain is not controlled with baclofen at home. Patient reports when he takes tramadol he gets short of breath. Patient will be given brief course of oxycodone for pain. discussed taking narcotics home with the patient. Recommend he follow up as planned as chronic narcotics are not recommended. Reviewed masspat. Reviewed worrisome signs and symptoms of when to return to the emergency room. Comfortable discharge home. <Amarilis Tsai NP - Last Filed: 08/21/22 17:22> Medical Decision Making Medical Decision Making MDM Narrative: this is a 67-year-old male who presents with lower back pain which began suddenly when he shifted in his car. Patient with no overt neurological deficits or red flag symptoms on exam. Patient does have point midline tenderness with no step-offs or deformities. Will check x-rays <Amarilis Tsai NP - Last Filed: 08/21/22 17:22> Differential Diagnosis Differential Diagnoses: The differential diagnosis associated with the presentation includes <Amarilis Tsai NP - Last Filed: 08/21/22 17:22> fracture, contusion, strain less likely cord compression, cauda equina, epidural abscess with normal neurological exam, no red flag symptoms. No history of IV drug abuse, immunocompromised state. <Amarilis Tsai NP - Last Filed: 08/21/22 17:22> Independent Interpretation I performed an independent interpretation of an: Plain X-Ray <Amarilis Tsai NP - Last Filed: 08/21/22 17:22> Interpretation: I indepedentely reviewed the x-ray agree with radiologist's report <Amarilis Tsai NP - Last Filed: 08/21/22 17:22> Radiology Impression Discussion of test interpretation with radiology: I have reviewed the radiologist's reading. <Amarilis Tsai NP - Last Filed: 08/21/22 17:22> Radiologist Impression: [place] [id number] XRay Report Signed Patient: Avery Ware MR#: [id number] : 1955 Acct:[id number] Age/Sex: 67 / M ADM Date: 08/21/22 Loc: .ED Attending Dr: Ordering Physician: Trent Ruvalcaba Date of Service: 08/21/22 Procedure(s): XR lumbar spine 2-3V Accession Number(s): [id number] cc: Trent Ruvalcaba ~ EXAMINATION: XR LUMBOSACRAL SPINE CLINICAL INFORMATION: Low back pain for 6 weeks. COMPARISON: 02/10/[address] scan of the chest, abdomen and pelvis dated 07/05/2022. TECHNIQUE: Three views of the lumbosacral spine. FINDINGS: There is generalized osteopenia. There is an approximate 20% superior endplate compression deformity at L1. Severe degenerative disc disease is seen at L5-S1. Mild disc space narrowing is seen at L4-L5. Bilateral facet arthropathy seen at L5-S1. The soft tissues are unremarkable. XR/XR lumbar spine 2-3V IMPRESSION: ? 1. Approximate 20% superior endplate compression deformity of L1 is of indeterminate age, but was not seen previously. <Amarilis Tsai NP - Last Filed: 08/21/22 17:22> Discharge Plan Discharge Clinical Impression: Compression fracture of L1 lumbar vertebra <Trent Ruvalcaba - Last Filed: 08/21/22 11:05> Patient Disposition: Home, Self-Care <Trent Ruvalcaba - Last Filed: 08/21/22 11:05> Instructions: Vertebral Compression Fracture (ED), Kyphoplasty (DC), Procedures for Compression Fractures of the Spine (DC) <Trent Ruvalcaba - Last Filed: 08/21/22 11:05> Additional Instructions: Aplica calor en la luanne. Sin levantar objetos pesados ??ni agacharse. Estiramiento suave. Rachel narc?ticos cr?nicos no es arguello para luevano teagan en general. seguimiento con el m?dico de atenci?n primaria para que pueda ordenar un procedimiento llamado cifoplastia <Trent Ruvalcaba - Last Filed: 08/21/22 11:05> Prescriptions: New lidocaine [Lidoderm] 5 % adhesive patch,medicated 1 patch topical DAILY Qty: 15 0RF Rx Instructions: leave on most painful area for up to 12 hrs oxycodone 5 mg tablet 5 mg PO Q8H PRN (Reason: pain) Qty: 10 0RF Rx Instructions: Partial Fill upon patient request. No Action ibuprofen 600 mg tablet 600 mg PO Q8H PRN (Reason: pain) 14 Days Qty: 30 0RF Linzess 145 mcg capsule 145 mcg PO DAILY Qty: 60 4RF dexlansoprazole 60 mg capsule,biphase delayed releas 60 mg PO DAILY Qty: 90 1RF metoclopramide HCl 10 mg tablet 10 mg PO QIDACHS Qty: 120 3RF albuterol sulfate [Ventolin HFA] 90 mcg/actuation HFA aerosol inhaler 2 puff inhalation Q6H PRN (Reason: for wheezing) Qty: 18 0RF Trelegy Ellipta 200-62.5-25 mcg blister with device 1 ea PO DAILY Qty: 60 3RF cyclobenzaprine 5 mg tablet 5 mg PO TID PRN (Reason: back pain) 7 Days Qty: 21 0RF Eliquis 5 mg tablet 5 mg PO BID Qty: 60 0RF oxycodone 5 mg tablet 5 mg PO Q6H PRN (Reason: pain) Qty: 20 0RF Rx Instructions: Partial Fill upon patient request. lidocaine 4 % adhesive patch,medicated 1 patch topical DAILY PRN (Reason: pain) Qty: 30 0RF sotalol 80 mg Tablet 80 mg PO BID Qty: 80 0RF valsartan 40 mg tablet 20 mg PO BID Qty: 60 0RF trazodone 100 mg tablet 100 - 200 mg PO BEDTIME PRN (Reason: Sleep) quetiapine 300 mg tablet 300 mg PO BEDTIME simvastatin 20 mg tablet 20 mg PO BEDTIME latanoprost 0.005 % drops 1 drp ophthalmic (eye) BEDTIME senna 8.6 mg capsule 17.2 mg PO DAILY gabapentin 300 mg capsule 600 mg PO BEDTIME 30 Days Qty: 60 3RF famotidine [Pepcid] 40 mg tablet 40 mg PO BEDTIME PRN (Reason: heartburn) Qty: 30 6RF <Trent Ruvalcaba - Last Filed: 08/21/22 11:05> Referrals: Rigoberto Madrigal MD [Primary Care Provider] - 1 week <Trent Ruvalcaba - Last Filed: 08/21/22 11:05> Interventions: ED Discharge Assessment Last Done: 08/21/22 16:29 <Trent Ruvalcaba - Last Filed: 08/21/22 11:05> Discharge Date/Time: 08/21/22 16:30 <Trent Ruvalcaba - Last Filed: 08/21/22 11:05> Print Language: Croatian <Trent Ruvalcaba - Last Filed: 08/21/22 11:05>
[2022-08-21 14:48] VITALS: BP 125/87; PULSE 71; RESP 16; TEMP 36.4; O2SAT 95
[2022-08-21 15:30] VITALS: BP 139/99; PULSE 72; RESP 20; TEMP 36.4; O2SAT 94
== END 2022-08-21 16:30 | disposition home or self-care (01) ==
PROVIDERS: Emergency Provider Emergency Medicine; PCP Internal Medicine
DX: S32.010A Wedge compression fracture of first lumbar vertebra, initial encounter for closed fracture (principal); X58.XXXA Exposure to other specified factors, initial encounter; I48.0 Paroxysmal atrial fibrillation; E78.5 Hyperlipidemia, unspecified; Z79.02 Long term (current) use of antithrombotics/antiplatelets; Z79.899 Other long term (current) drug therapy; Z79.01 Long term (current) use of anticoagulants; Z87.891 Personal history of nicotine dependence; Y93.89 Activity, other specified; Y92.810 Car as the place of occurrence of the external cause; Y99.9 Unspecified external cause status
CPT/HCPCS: 72100; 99282; 99283

== ENCOUNTER 2022-08-26 08:13 | Inpatient (IN) | payer MEDICARE, MEDICAID, SELFPAY ==
[2022-08-26] VITALS (10 sets, daily range): BP systolic 93–124; BP diastolic 67–88; PULSE 75–111; RESP 16–27; TEMP 36.4–37.1; O2SAT 89–97; BMI 28.5
--- NOTE | ~2022-08-26 | XR_ITS ---
EXAMINATION: XR CHEST CLINICAL INFORMATION: Cough COMPARISON: CT chest 08/13/2022, portable chest radiographs 07/05/2022, 05/29/2022. TECHNIQUE: Portable upright AP view of the chest was obtained. FINDINGS: Patient is slightly rotated. Airspace opacity adjacent to the minor fissure is decreased from the CT exam 08/13/2022. There is no interval lobar or segmental airspace consolidation or effusion. Some scarring is again noted right apex. The heart is normal in size. The vascularity is normal. Again, there is a fracture distal right clavicle and punctate calcific tendinosis right shoulder rotator cuff. XR/XR chest 1V IMPRESSION: 1. Airspace opacity adjacent to the minor fissure decreased from CT 08/13/2022. 2. No interval lobar or segmental airspace consolidation or effusion.
--- NOTE | ~2022-08-26 | NM_ITS ---
EXAMINATION: NM BONE SCAN OF THE WHOLE BODY CLINICAL INFORMATION: T7 and T9 compression fracture on CT COMPARISON: CT chest 08/13/2022. TECHNIQUE: Multiple gamma scintillation camera images of the whole body were performed 3 hours following the intravenous administration of 31 mCi Tc-99m MDP. FINDINGS: In the head, no abnormal activity seen. In the thoracic cage and upper extremities, there is focal laxity seen along the left anterior second [id number] junction likely fracture. In the spine, moderate increase activity seen in T9 and T7 vertebra consistent with acute compression fracture. In the pelvis, no abnormal activity seen. In the lower extremities, no abnormal activity seen No other definite bony abnormalities are noted. The urinary bladder and faint visualization of both kidneys are noted. NM/NM bone scan whole body IMPRESSION: Moderate activity T7 and T9 vertebra consistent with acute compression fracture and concordant with a CT chest findings. If clinically indicated further treatment with kyphoplasty can be performed. Left anterior second costochondral junction fracture suspected heart is not clearly visualized on the preceding CT chest exam.
--- NOTE | 2022-08-26 10:13 | ED.GENADULT ---
HPI - General Adult General Chief complaint: General Medical Stated complaint: BACK PAIN,H/O COMPR FX X'SDAYS,WANTS MEDS Time Seen by Provider: 08/26/22 09:57 Source: patient, family (Sister), EMS and certified court interpreter Mode of arrival: EMS Limitations: no limitations History of Present Illness HPI narrative: 67-year-old male with past medical history significant for paroxysmal atrial fibrillation, nonischemic cardiomyopathy, COPD, hyperlipidemia presented with low back pain patient was seen in the emergency department last week for low back pain patient found to have L1 compression fracture was discharged home on oxycodone with no relief of his symptoms. Patient also been coughing and shortness of breath with a dark sputum scheduled to see Dr. Sterling for bronchoscopy this week. Patient is known to have COPD not using supplemental oxygen home. Related Data Home Medications Medication Instructions Recorded Confirmed latanoprost 0.005 % eye drops 1 drp ophthalmic (eye) BEDTIME 03/27/20 05/29/22 quetiapine 300 mg tablet 300 mg PO BEDTIME 03/27/20 07/08/22 simvastatin 20 mg tablet 20 mg PO BEDTIME 03/27/20 07/08/22 trazodone 100 mg tablet 100 - 200 mg PO BEDTIME PRN Sleep 03/27/20 05/29/22 albuterol sulfate 90 mcg/actuation 2 puff inhalation Q6H PRN wheezing 08/26/22 aerosol inhaler (Ventolin HFA) carvedilol 25 mg tablet 1 tab PO BID 08/26/22 Previous Rx's Medication Instructions Recorded apixaban 5 mg tablet (Eliquis) 5 mg PO BID #60 tabs 05/06/22 dexlansoprazole 60 mg 60 mg PO DAILY #90 caps 05/22/22 capsule,biphase delayed release linaclotide 145 mcg capsule 145 mcg PO DAILY #60 caps 05/22/22 (Linzess) sotalol 80 mg tablet 80 mg PO BID #80 tabs 06/01/22 valsartan 40 mg tablet 20 mg PO BID #60 tabs 06/01/22 famotidine 40 mg tablet (Pepcid) 40 mg PO BEDTIME PRN heartburn #30 06/06/22 tabs Trelegy Ellipta 200 mcg-62.5 1 ea PO DAILY #60 ea 07/22/22 mcg-25 mcg powder for inhalation ([id number]) gabapentin 300 mg capsule 600 mg PO BEDTIME 30 days #60 caps 08/16/22 oxycodone 5 mg tablet 5 mg PO Q8H PRN pain #10 tabs 08/21/22 Allergies Allergy/AdvReac Type Severity Reaction Status Date / Time No Known Allergies Allergy Verified 08/21/22 10:59 [No Known Allergies*] Review of Systems Review of Systems: All other systems are reviewed and are negative Constitutional: Reports as per HPI and Reports no additional constitutional complaints Eyes: Reports as per HPI and Reports no additional eye complaints Reports system reviewed and no additional complaints, except as documented Cardiovascular: Reports as per HPI and Reports no additional cardiovascular complaints Respiratory: Reports as per HPI and Reports no additional respiratory complaints Gastrointestinal: Reports as per HPI and Reports no additional gastrointestinal complaints Genitourinary: Reports no additional female genitourinary complaints Musculoskeletal: Reports no additional musculoskeletal complaints Skin/Breast: Reports system reviewed and no additional complaints, except as docu Psychiatric: Reports no additional psychiatric complaints Endocrine: Reports no additional endocrine complaints Hematologic/Lymphatic: Reports no additional hematologic/lymphatic complaints Allergic/Immunologic: Reports no additional allergic/immunologic complaints Reports system reviewed and no additional complaints, except as documented and Reports Abnormal speech present [facility] Past Medical History Medical History (Updated 08/26/22 @ 14:42 by Razia Thomas MD) CHF exacerbation Compression fracture of body of thoracic vertebra Compression fracture of thoracic spine, non-traumatic Constipation COPD (chronic obstructive pulmonary disease) Depression Dyspnea GERD (gastroesophageal reflux disease) History of alcohol abuse Hyperlipidemia Hypertension Nonischemic cardiomyopathy Personal history of nicotine dependence Pneumonia Pulmonary nodules Tubular adenoma of colon Surgical History History of appendectomy History of gastric surgery History of surgery on left wrist (~03/21/10) Hx of cataract surgery (~07/02/10) Hx of colonoscopy (~02/13/06) Hx of endoscopy Family History Family History Mother Renal failure Father History of depression Brother Colon cancer Social History Social History Household Members: None Housing: Apartment Are you a primary health care recruiter to a significant other at home: No Do you presently have visiting nurse or other home services: No Alcohol intake: former Patient Tobacco Use Status: Former Tobacco user Quit Date: 01/2022 Tobacco use type: Cigarette Cigarette Packs Per Day: 0.5 Years Smoked: 40+ Smoked in Last 30 Days: No e-Cigarette/Vaping Use: Never Used Second Hand Smoke Exposure: No Use of substances other than those prescribed or required for medical reasons: No Advance Directives: No Advance Directives Information Provided: No service: No Current occupational status: unemployed Physical Exam ED Vital Signs: Vital Signs - 24 hr 08/26/22 08:43 08/26/22 10:31 08/26/22 12:00 Temperature 98.5 F 97.6 F Pulse Rate 96 104 H 111 H Respiratory Rate 27 H 18 18 Blood Pressure 97/67 114/74 Pulse Oximetry 89 L 89 L Oxygen Delivery Method Room Air Room Air BMI result Body Mass Index 28.5 Vital signs have been reviewed as appeared to be correct. Blood pressure normal. Heart rate normal. Respiration rate normal. Temperature normal. Oxygen saturation normal. Appearance: Alert. Oriented X3. No acute distress. Head: Normal external exam. Normocephalic. Atraumatic. No Blair signs noted. No raccoon eyes noted Eyes: PERRLA. EOMI. Conjunctiva and sclera normal. Eyelids normal. ENT: TM's Normal. Pharynx normal. Uvula midline. Moist mucous membranes. No trismus noted. No drooling noted. No muffled voice noted. Neck: Normal inspection. Neck supple. FROM. No adenopathy. Thyroid Normal. No meningeal signs. No neck mass noted. CVS: Normal heart rate and rhythm. Heart sound normal. No murmurs noted. Pulses normal throughout. Respiratory: No respiratory distress. Painless inspiration. Breath sounds normal. No wheezes/rales/rhonchi noted. Chest nontender. No accessory muscle usage noted or decreased air movement noted. Abdomen: Soft and nontender. Bowel sounds normal in all 4 quadrants. No distention noted. No organomegaly noted. No visible injury noted. Back: No CVA tenderness. Full range of motion noted. Skin: Skin warm and dry. Normal skin color. Normal skin turgor. No rashes/lesions/lacerations noted. Extremities: No lower extremity edema. Extremities exhibit normal range of motion. Extremities nontender. Neuro: Oriented X 3. Cranial nerve exam: II-XII are grossly intact No motor deficit. No sensory deficit. Reflexes normal. Course Course Course Narrative: 14:00 67-year-old male former smoker with history of COPD found to be hypoxic in the emergency department patient required multiple bronchodilator and prednisone, patient meet criteria for SIRS will start the patient on antibiotic check his culture and lactic acid. Rapid atrial fibrillation which the patient had history of atrial fibrillation, was given Cardizem IV drip. Medications Administered Generic Name Dose Route Start Last Admin Trade Name Freq PRN Reason Stop Dose Admin Levofloxacin 750 mg in 150 mls @ 100 mls/hr 08/26/22 14:05 08/26/22 14:33 Levaquin IV 08/26/22 15:34 100 mls/hr ONCE ONE Administration Discontinued Medications Generic Name Dose Route Start Last Admin Trade Name Freq PRN Reason Stop Dose Admin Albuterol Sulfate 7.5 mg 08/26/22 10:17 08/26/22 10:31 Albuterol Sulfate (0.083%) 2.5 Mg/3 Ml Vial.Neb INHALE 08/26/22 10:18 7.5 mg ONCE ONE Administration Diltiazem HCl 20 mg 08/26/22 14:40 08/26/22 14:48 Diltiazem Hcl 50 Mg/10 Ml Vial IVPUSH 08/26/22 14:41 20 mg STAT STA Administration Hydromorphone HCl 2 mg 08/26/22 14:01 08/26/22 14:32 Hydromorphone Hcl 2 Mg Tablet PO 08/26/22 14:02 2 mg ONCE ONE Administration Methylprednisolone Sodium Succinate 125 mg 08/26/22 10:17 08/26/22 10:46 Methylprednisolone Sod Succ 125 Mg/2 Ml Vial IVPUSH 08/26/22 10:18 125 mg ONCE ONE Administration Medical Decision Making Differential Diagnosis Differential Diagnoses: The differential diagnosis associated with the presentation includes (COPD exacerbation, asthma, pneumonia, lumbar spine compression fracture.) Admission/Observation Consideration of admission/observation: Escalation of care including admission/observation considered Consult Healthcare Provider Management of the patient was discussed with: Hospitalist Lab Data MDM Lab Attestation statement: I reviewed the patient's lab results. 08/26/22 10:38 08/26/22 10:38 Labs: Lab Results 08/26/22 08/26/22 08/26/22 Range/Units 10:38 10:38 10:38 WBC 8.7 (4.8-10.8) X10*3/uL RBC 3.99 L (4.60-5.80) X10*6/uL Hgb 11.6 L (14.0-18.0) g/dl Hct 35.9 L (42.0-52.0) % MCV 90.0 (80.0-98.0) fL MCH 29.1 (27.0-33.0) pg MCHC 32.3 (31.0-36.0) g/dl RDW 13.3 (11.0-16.0) % Plt Count 170 (160-400) X10*3/uL MPV 9.6 (9.4-12.4) fL Immature Gran % (Auto) 0.5 H (0.0-0.4) % Neut % (Auto) 79.6 H (45-73) % Lymph % (Auto) 11.5 L (20-40) % [place] % (Auto) 8.1 (2-11) % Eos % (Auto) 0.2 (0-4) % Baso % (Auto) 0.1 (0-2) % Lymph # (Auto) 1.0 L (1.2-4.9) X10*3/uL [place] # (Auto) 0.7 (0.1-1.2) X10*3/uL Eos # (Auto) 0.0 (0.0-0.4) X10*3/uL Baso # (Auto) 0.0 (0.0-0.2) X10*3/uL Abs Immat Gran (auto) 0.04 H (0.00-0.03) X10*3/uL Absolute Neuts (auto) 6.9 (2.0-8.3) x10*3/uL Absolute Nucleated RBC 0.000 (0.0-0.012) X10*3/uL Nucleated RBC % (auto) 0.0 (0.0-0.2) /100WBC Sodium 142 (135-145) mmol/L Potassium 4.1 (3.3-5.1) mmol/L Chloride 107 (96-108) mmol/L Carbon Dioxide 26 (22-29) mmol/L Anion Gap 13 (12-20) BUN 25 H (9-16) mg/dL Creatinine 0.83 (0.5-1.4) mg/dL Estim Creat Clear Calc 93.3 Estimated GFR > 60 Random Glucose 113 (60-115) mg/dL Calcium 8.0 L (8.4-10.2) mg/dL Total Bilirubin 2.0 H (0.0-1.0) mg/dL Direct Bilirubin 0.5 (0.0-0.5) mg/dL AST 48 H (5-37) U/L ALT 31 (0-40) U/L Alkaline Phosphatase 59 (39-117) U/L Total Protein 6.2 L (6.5-8.0) g/dL Albumin 3.3 L (3.5-5.0) g/dL Lipase 19 (8-78) U/L Urine Color Yellow Urine Appearance Clear Urine pH 5.5 (5.0-9.0) Ur Specific [place] 1.020 (1.005-1.025) Urine Protein Trace (Neg-Trace) mg/dL Urine Glucose (UA) Negative (Negative) mg/dL Urine Ketones Negative (Negative) mg/dL Urine Blood Small (1+) H (Negative) Urine Nitrite Negative (Negative) Ur Leukocyte Esterase Negative (Negative) Urine RBC 3-5 H (0-2) /HPF Urine WBC 0-5 (0-5) /HPF Ur Squamous Epith Cells 0-2 (0-2) /HPF Urine Bacteria None Seen (None Seen) Hyaline Casts 0-2 (0-2) /LPF Independent Interpretation I performed an independent interpretation of an: EKG and Plain X-Ray Interpretation: 1.? Airspace opacity adjacent to the minor fissure decreased from CT 08/13/2022. 2.? No interval lobar or segmental airspace consolidation or effusion. ? Radiology Impression Discussion of test interpretation with radiology: I have reviewed the radiologist's reading. Discharge Plan Discharge Clinical Impression: Acute exacerbation of chronic obstructive pulmonary disease, Hypoxia, Closed compression fracture of L1 vertebra, Atrial fibrillation with rapid ventricular response Patient Disposition: Admitted As Inpatient
[2022-08-26] MEDS: Albuterol Sulfate (0.083%) 2.5 MG/3 ML VIAL.NEB 7.5 MG INHALE (10:31)
[2022-08-26 10:43] LABS: MANUAL DIFF FLAG NO
[2022-08-26 10:44] LABS: Basophils Percent Auto 0.1 % (0-2); Eosinophils Percent Auto 0.2 % (0-4); Hematocrit 35.9 % (42.0-52.0); Hemoglobin 11.6 g/dl (14.0-18.0); Imm Gran Abs Auto 0.04 X10*3/uL (0.00-0.03); Imm Gran Pct Auto 0.5 % (0.0-0.4); Lymphocytes Percent Auto 11.5 % (20-40); Mean Corpuscular HGB Conc 32.3 g/dl (31.0-36.0); Mean Corpuscular Hemoglobin 29.1 pg (27.0-33.0); Mean Platelet Volume 9.6 fL (9.4-12.4); Monocytes Absolute Auto 0.7 X10*3/uL (0.1-1.2); Monocytes Percent Auto 8.1 % (2-11); Neutrophils Absolute Auto 6.9 x10*3/uL (2.0-8.3); Neutrophils Percent Auto 79.6 % (45-73); Platelet Count 170 X10*3/uL (160-400); Red Blood Count 3.99 X10*6/uL (4.60-5.80); Red Cell Distribution Width 13.3 % (11.0-16.0); White Blood Count 8.7 X10*3/uL (4.8-10.8)
[2022-08-26 10:45] LABS: Appearance Urine Clear; Color Urine Yellow; Glucose Urine UA Negative (Negative); Leukocyte Esterase Urine Negative (Negative); Nitrite Urine Negative (Negative); PH 5.5 (5.0-9.0); UMIC TRIGGER UACC YES; Urine Blood Small (1+) (Negative); Urine Ketones Negative (Negative); Urine Protein Trace mg/dL (Neg-Trace)
[2022-08-26] MEDS: methylPREDNISolone Sod Succ 125 MG/2 ML VIAL IVPUSH (10:46)
[2022-08-26 10:59] LABS: Bacteria Urine None Seen (None Seen); Hyaline Casts Urine 0-2 /LPF (0-2); Squamous Epithelial Cell Urine 0-2 /HPF (0-2); WBC Urine 0-5 /HPF (0-5)
--- NOTE | 2022-08-26 11:03 | PC.NURSE ---
#20 IV placed in left AC without any complications noted
[2022-08-26 11:20] LABS: Alanine Aminotransferase 31 U/L (0-40); Albumin Level 3.3 g/dL (3.5-5.0); Alkaline Phosphatase 59 U/L (39-117); Anion Gap 13 (12-20); Aspartate Amino Transferase 48 U/L (5-37); Bilirubin Direct 0.5 mg/dL (0.0-0.5); Blood Urea Nitrogen 25 mg/dL (9-16); Carbon Dioxide 26 mmol/L (22-29); Chloride 107 mmol/L (96-108); Creatinine Clr Calc Pharmacy 93.3; Estimated Glomerular Filt Rate > 60; Glucose Random 113 mg/dL (60-115); Lipase 19 U/L (8-78); Potassium 4.1 mmol/L (3.3-5.1); Sodium 142 mmol/L (135-145); Total Protein 6.2 g/dL (6.5-8.0)
--- NOTE | 2022-08-26 14:13 | ECG_ITS ---
Test Reason : back pain Blood Pressure : / mmHG Vent. Rate : 146 BPM Atrial Rate : 366 BPM P-R Int : 000 ms QRS Dur : 074 ms QT Int : 224 ms P-R-T Axes : 000 050 218 degrees QTc Int : 349 ms Atrial flutter with variable A-V block Nonspecific ST and T wave abnormality Abnormal ECG When compared with ECG of 05-JUL-2022 13:20, Atrial flutter has replaced Sinus rhythm Vent. rate has increased BY 62 BPM Referred By: Geovanna Sterling Electronically Signed By:KING JAMES
--- NOTE | 2022-08-26 14:21 | PM.IMHP ---
History of Present Illness Date of Service: 08/26/22 Chief Complaint: SOB 67-year-old male with past medical history significant for paroxysmal atrial fibrillation, nonischemic cardiomyopathy, COPD, hyperlipidemia presented with low back pain patient was seen in the emergency department last week for low back pain patient found to have L1 compression fracture was discharged home on oxycodone with no relief of his symptoms.? He also reports some shortness of breath at rest and with ambulation. He does have history of COPD and emphysema, he is not on home oxygen. He denies any recent travel. Patient also been coughing and shortness of breath with a dark sputum scheduled to see Dr. Sterling for bronchoscopy this week.? Patient is known to have COPD not using supplemental oxygen home.Denies chest pain, nausea, vomiting, diarrhea, recent illness, sick contacts, Oxygen sat 89% on ra, all other labs within acceptable limits, vital signs stable, CXR showing airspace opacity. He received albuterol, solumedrol and dilaudid in the ED. He will be placed on OBS for COPD exacerbation. Review of Systems Review of Systems: Denies any recent fever chills or decrease in appetite respiratory See HPI cardiovascular denies chest pain gastrointestinal denies any dysphagia abdominal pain nausea vomiting or diarrhea genitourinary denies any dysuria frequency or hematuria musculoskeletal denies any joint pain or swelling neuropsych denies any weakness or seizures all other systems reviewed are negative [facility] Medical History (Updated 08/27/22 @ 08:45 by Layton Sterling MD) CHF exacerbation Compression fracture of body of thoracic vertebra Compression fracture of thoracic spine, non-traumatic Constipation COPD (chronic obstructive pulmonary disease) Depression Dyspnea GERD (gastroesophageal reflux disease) History of alcohol abuse Hyperlipidemia Hypertension Nonischemic cardiomyopathy Personal history of nicotine dependence Pneumonia Pneumonia Pulmonary nodules Tubular adenoma of colon Family History Mother Renal failure Father History of depression Brother Colon cancer Surgical History History of appendectomy History of gastric surgery History of surgery on left wrist (~03/21/10) Hx of cataract surgery (~07/02/10) Hx of colonoscopy (~02/13/06) Hx of endoscopy Social History Household Members: None Housing: Apartment Are you a primary neonatal critical care nurse to a significant other at home: No Do you presently have visiting nurse or other home services: No Alcohol intake: former Patient Tobacco Use Status: Former Tobacco user Quit Date: 01/2022 Tobacco use type: Cigarette Cigarette Packs Per Day: 0.5 Years Smoked: 40+ Smoked in Last 30 Days: No e-Cigarette/Vaping Use: Never Used Second Hand Smoke Exposure: No Use of substances other than those prescribed or required for medical reasons: No Currently Displaying Signs/Symptoms of Drug Intoxication Withdrawal: No Have you been hit, kicked, punched, or otherwise hurt by someone within the past year? If so, by whom?: No Do you feel safe in your current relationship?: Yes Is there a partner from a previous relationship who is making you feel unsafe now?: No Are you made to feel afraid or neglected: No [employer] Healthcare Practices: [employer] Advance Directives: No Advance Directives Information Provided: No Do you have thoughts of harming others: None Do you have a plan to hurt others: No Plan Recently lost weight without trying: No Nutrition Risks: No Nutritional Risk service: No Current occupational status: unemployed Meds Allergies Allergy/AdvReac Type Severity Reaction Status Date / Time No Known Allergies Allergy Verified 08/21/22 10:59 [No Known Allergies*] Active Medications: Current Medications Albuterol Sulfate (Albuterol Sulfate (0.083%) 2.5 Mg/3 Ml Vial.Neb) 7.5 mg INHALE ONCE ONE Stop: 08/26/22 10:18 Last Admin: 08/26/22 10:31 Dose: 7.5 mg Hydromorphone HCl (Hydromorphone Hcl 2 Mg Tablet) 2 mg PO ONCE ONE Stop: 08/26/22 14:02 Levofloxacin (Levaquin) 750 mg in 150 mls @ 100 mls/hr IV ONCE ONE Stop: 08/26/22 15:34 Methylprednisolone Sodium Succinate (Methylprednisolone Sod Succ 125 Mg/2 Ml Vial) 125 mg IVPUSH ONCE ONE Stop: 08/26/22 10:18 Last Admin: 08/26/22 10:46 Dose: 125 mg Pharmacy Consult (Consult Rx Perform Med Rec) 1 each MISCELLANE ONCE PRN PRN Reason: Consult order Home Medications Medication Instructions Recorded Confirmed Last Taken Type latanoprost 0.005 % eye drops 1 drp ophthalmic (eye) BEDTIME 03/27/20 08/26/22 Unknown History quetiapine 300 mg tablet 300 mg PO BEDTIME 03/27/20 08/26/22 Unknown History simvastatin 20 mg tablet 20 mg PO BEDTIME 03/27/20 08/26/22 Unknown History albuterol sulfate 90 mcg/actuation 2 puff inhalation Q6H PRN wheezing 08/26/22 08/26/22 Unknown History aerosol inhaler (Ventolin HFA) fluticasone fur. 200 mcg-umeclid 1 inh PO DAILY 08/26/22 08/26/22 Unknown History 62.5 mcg-vilant 25 mcg inhalat.powder (Trelegy Ellipta) gabapentin 300 mg capsule 600 mg PO BEDTIME PRN Pain, 08/26/22 08/26/22 Unknown History Moderate Physical Exam Vital Signs and Narrative: Vital Signs: Last Vital Signs Temp 97.6 F 08/26/22 12:00 Pulse 111 H 08/26/22 12:00 Resp 18 08/26/22 12:00 BP 114/74 08/26/22 12:00 Pulse Ox 89 L 08/26/22 12:00 O2 Del Method 08/26/22 12:00 BMI result Body Mass Index 28.5 Appearing in no acute distress head is normocephalic atraumatic eyes pupils are PERRLA sclera is anicteric mouth throat mucous membranes are intact and moist neck is supple no lymphadenopathy, no JVD noted lung sounds are clear to auscultation heart regular rate rhythm, clear S1, S2 positive bowel sounds, abdomen is soft, nontender neuro patient is alert x3, no focal deficits Results Labs 08/26/22 10:38 08/26/22 10:38 Labs: Laboratory Results - last 24 hr 08/26/22 08/26/22 08/26/22 10:38 10:38 10:38 MCV 90.0 MCH 29.1 MCHC 32.3 RDW 13.3 Plt Count 170 MPV 9.6 Immature Gran % (Auto) 0.5 H Neut % (Auto) 79.6 H Lymph % (Auto) 11.[address] [place] % (Auto) 8.1 Eos % (Auto) 0.2 Baso % (Auto) 0.1 Lymph # (Auto) 1.[address] # (Auto) 0.7 Eos # (Auto) 0.0 Baso # (Auto) 0.0 Abs Immat Gran (auto) 0.04 H Absolute Neuts (auto) 6.9 Absolute Nucleated RBC 0.000 Nucleated RBC % (auto) 0.0 Anion Gap 13 Estim Creat Clear Calc 93.3 Estimated GFR > 60 Random Glucose 113 Calcium 8.0 L Total Bilirubin 2.0 H Direct Bilirubin 0.5 AST 48 H ALT 31 Alkaline Phosphatase 59 Total Protein 6.2 L Albumin 3.3 L Lipase 19 Urine Color Yellow Urine Appearance Clear Urine pH 5.5 Ur Specific [place] 1.020 Urine Protein Trace Urine Glucose (UA) Negative Urine Ketones Negative Urine Blood Small (1+) H Urine Nitrite Negative Ur Leukocyte Esterase Negative Urine RBC 3-5 H Urine WBC 0-5 Ur Squamous Epith Cells 0-2 Urine Bacteria None Seen Hyaline Casts 0-2 Imaging Radiologist's Impressions: Impressions Chest X-Ray 08/26/22 10:57 IMPRESSION: 1. Airspace opacity adjacent to the minor fissure decreased from CT 08/13/2022. 2. No interval lobar or segmental airspace consolidation or effusion. Assessment and Plan (1) Pneumonia: Status: Acute Plan 67 year old man admitted with COPD exacerbation and afib rvr Acute on chronic respiratory failure secondary to COPD exacerbation and possible pneumonia Continue Rocephin and azithromycin upplementaloxygen Pulmonary consultation ( known to Dr. Sterling) Afib RVR with hx of PAF given IV cardizem in the ED Continue Eliquis Sotalol and coreg back pain secondary to Compression fracture L1 pain management will discuss with pulm re risk for kyphoplasty HTN continue home medications Hx of HFrEF check BNP no obvious exacerbation Mental health continue home medications DVT prophylaxis Attending Dr. Davis full code Patient needs to inpatient midnights for treatment of acute on chronic respiratory failure secondary to COPD exacerbation and pneumonia requiring IV antibiotics and oxygen Time Spent With Patient Time: Total time managing care of this patient today ____ minutes. Quality Stroke Does the patient have a stroke diagnosis?: No VTE Prior VTE?: No VTE Risk Level:: Medical - moderate - high VTE Device Contraindication: Treatment Not Indicated VTE Drug Contraindication: N/A - Med Ordered
[2022-08-26] MEDS: HYDROmorphone HCl 2 MG TABLET PO (14:32)
[2022-08-26] MEDS: levoFLOXacin/D5W 750 MG/150 ML PIGGYBACK 100 MG IV (14:33)
[2022-08-26] MEDS: dilTIAZem HCL 50 MG/10 ML VIAL 20 MG IVPUSH (14:48)
--- NOTE | 2022-08-26 15:22 | PC.NURSE ---
pt HR is now in the 90 s. attending is aware
[2022-08-26 15:32] LABS: Lactic Acid 1.1 mmol/L (0.5-2.0)
[2022-08-26 15:42] LABS: B Type Natriuretic Peptide 36 pg/mL (<100)
[2022-08-26 15:51] LABS: Influenza A PCR NEGATIVE (Negative); Influenza B PCR NEGATIVE (Negative); Resp Syncy Virus RNA Qual PCR NEGATIVE (Negative); SARS COV2 PCR INHOUSE NEGATIVE (Negative)
[2022-08-26] MEDS: 0.9 % Sodium Chloride Flush 3 ML SYRINGE IVFLUSH ×2 (16:51→20:51)
--- NOTE | 2022-08-26 17:45 | PHA.MEDREC ---
Pharmacy Consult ? Medication Reconciliation Pharmacy has completed the medication reconciliation. 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
[2022-08-26] MEDS: Valsartan 40 MG TABLET 20 MG PO (20:33)
[2022-08-26] MEDS: methylPREDNISolone Sod Succ 40 MG/ML VIAL IVPUSH (20:33)
[2022-08-26] MEDS: Apixaban 5 MG TABLET PO (20:33)
[2022-08-26] MEDS: Atorvastatin Calcium 10 MG TABLET PO (20:33)
[2022-08-26] MEDS: QUEtiapine Fumarate 300 MG TABLET PO (20:33)
[2022-08-26] MEDS: Latanoprost 0.005 % Ophth Sol 2.5 ML DROPS 1 DROP EYE-BOTH (20:33)
[2022-08-26] MEDS: Sotalol HCL 80 MG TABLET PO (20:38)
[2022-08-26] MEDS: Gabapentin 300 MG CAPSULE 600 MG PO (20:49)
[2022-08-26] MEDS: traZODone HCL 100 MG TABLET PO (20:49)
[2022-08-26] MEDS: Acetaminophen 325 MG TABLET 650 MG PO (20:49)
[2022-08-27] VITALS (11 sets, daily range): BP systolic 85–130; BP diastolic 50–82; PULSE 70–93; RESP 16–20; TEMP 36.2–37; O2SAT 88–96
[2022-08-27] MEDS: methylPREDNISolone Sod Succ 40 MG/ML VIAL IVPUSH ×3 (06:01→22:22)
[2022-08-27 07:10] LABS: Alanine Aminotransferase 29 U/L (0-40); Alkaline Phosphatase 55 U/L (39-117); Aspartate Amino Transferase 30 U/L (5-37); Bilirubin Total 1.3 mg/dL (0.0-1.0); Blood Urea Nitrogen 33 mg/dL (9-16); Calcium 8.2 mg/dL (8.4-10.2); Creatinine Clr Calc Pharmacy 93.3; Estimated Glomerular Filt Rate > 60; Glucose Random 151 mg/dL (60-115); Total Protein 5.7 g/dL (6.5-8.0)
[2022-08-27 07:30] LABS: Anion Gap 14 (12-20); Carbon Dioxide 24 mmol/L (22-29); Chloride 107 mmol/L (96-108); Potassium 4.7 mmol/L (3.3-5.1); Sodium 140 mmol/L (135-145)
[2022-08-27] MEDS: Fluticasone/Vilanterol 100/25 BLST.W.DEV 1 PUFF INHALE (07:44)
[2022-08-27] MEDS: Valsartan 40 MG TABLET 20 MG PO ×2 (07:45→22:20)
[2022-08-27] MEDS: Apixaban 5 MG TABLET PO (07:47)
[2022-08-27] MEDS: 0.9 % Sodium Chloride Flush 3 ML SYRINGE IVFLUSH ×3 (07:47→22:23)
[2022-08-27] MEDS: Sotalol HCL 80 MG TABLET PO ×2 (07:47→22:21)
[2022-08-27] MEDS: Morphine Sulfate 2 MG/ML CARTRIDGE IVPUSH ×3 (07:53→22:21)
--- NOTE | 2022-08-27 08:39 | PM.CNPUL ---
History of Present Illness History of Present Illness Consult date: 08/27/22 Chief complaint: AFIB RVR, COPD Narrative: This is an inpatient pulmonary consultation. The patient is a 67-year-old gentleman with known COPD in addition to atrial fibrillation on Eliquis who has had abnormal nodular densities on CT scan. He has also been complaining of back pain. Previously in the winter of [address] the [address] had a CT scan of the chest demonstrating a right lower lobe density. I did request a PET scan for but the patient had been denied based on the fact that it was described as density in that nodule. Therefore we had him repeat the CT scan 3 months later which was in July 2022 which actually demonstrated interval improvement of the right lower lobe density but a new airspace disease consolidation developed. Patient was having ongoing symptoms of cough and shortness of breath. There was a significant history of lung cancer in the family. Therefore, we opted on performing a bronchoscopy which is scheduled for this . In the meantime the patient presented to the ER on the 08/26/2022 with worsening shortness of breath. He was found to have AFib with rapid response and was treated accordingly. His chest x-ray again demonstrated the as per disease but that was documented on previous imaging studies therefore the goal be to stabilize him and have him undergo bronchoscopy to further address the abnormal findings on the imaging studies. Review of Systems Review of Systems: Yes all other systems are reviewed and are negative Constitutional: Constitutional: Denies body ache(s), Denies chills, Denies fever(s), Denies headache(s) and Denies weakness Eyes: Eyes: Reports no additional eye complaints and Denies change in vision ENT: Reports system reviewed and no additional complaints, except as documented, Denies dizziness, Denies headache(s), Denies nasal congestion, Denies nasal discharge and Denies neck pain Cardiovascular: Cardiovascular: Reports no additional cardiovascular complaints, Denies chest pain, Denies leg edema and Reports dyspnea Respiratory: Respiratory: Reports cough and Reports dyspnea Gastrointestinal: Gastrointestinal: Reports no additional gastrointestinal complaints, Denies abdominal pain, Denies diarrhea, Denies nausea and Denies vomiting Genitourinary: Genitourinary: Denies urinary incontinence Musculoskeletal: Musculoskeletal: Reports no additional musculoskeletal complaints, Reports back pain, Denies arthralgias, Denies joint swelling, Denies neck pain, Denies numbness and Denies tingling Integumentary/Breasts: Skin/Breast: Reports system reviewed and no additional complaints, except as docu and Denies rash Neurologic: Reports system reviewed and no additional complaints, except as documented, Denies dizziness, Denies headache(s), Denies numbness, Denies tingling and Denies weakness PMF Past Medical History Medical History (Updated 08/27/22 @ 08:45 by Layton Sterling MD) CHF exacerbation Compression fracture of body of thoracic vertebra Compression fracture of thoracic spine, non-traumatic Constipation COPD (chronic obstructive pulmonary disease) Depression Dyspnea GERD (gastroesophageal reflux disease) History of alcohol abuse Hyperlipidemia Hypertension Nonischemic cardiomyopathy Personal history of nicotine dependence Pneumonia Pneumonia Pulmonary nodules Tubular adenoma of colon Family History Family History Mother Renal failure Father History of depression Brother Colon cancer Surgical History Surgical History History of appendectomy History of gastric surgery History of surgery on left wrist (~03/21/10) Hx of cataract surgery (~07/02/10) Hx of colonoscopy (~02/13/06) Hx of endoscopy Social History Social History Household Members: None Housing: Apartment Are you a primary neurocritical care physician to a significant other at home: No Do you presently have visiting nurse or other home services: No Alcohol intake: former Patient Tobacco Use Status: Former Tobacco user Quit Date: 01/2022 Tobacco use type: Cigarette Cigarette Packs Per Day: 0.5 Years Smoked: 40+ Smoked in Last 30 Days: No e-Cigarette/Vaping Use: Never Used Second Hand Smoke Exposure: No Use of substances other than those prescribed or required for medical reasons: No Currently Displaying Signs/Symptoms of Drug Intoxication Withdrawal: No Have you been hit, kicked, punched, or otherwise hurt by someone within the past year? If so, by whom?: No Do you feel safe in your current relationship?: Yes Is there a partner from a previous relationship who is making you feel unsafe now?: No Are you made to feel afraid or neglected: No Caodaism Healthcare Practices: Christianity Advance Directives: No Advance Directives Information Provided: No Do you have thoughts of harming others: None Do you have a plan to hurt others: No Plan Recently lost weight without trying: No Nutrition Risks: No Nutritional Risk service: No Current occupational status: unemployed Meds Allergies Allergy/AdvReac Type Severity Reaction Status Date / Time No Known Allergies Allergy Verified 08/21/22 10:59 [No Known Allergies*] Active Medications: Current Medications Acetaminophen (Acetaminophen 325 Mg Tablet) 650 mg PO Q6H PRN PRN Reason: Pain, Mild (Pain Scale 1-3) Last Admin: 08/26/22 20:49 Dose: 650 mg Atorvastatin Calcium (Atorvastatin Calcium 10 Mg Tablet) 10 mg PO BEDTIME YESSENIA Last Admin: 08/26/22 20:33 Dose: 10 mg Famotidine (Famotidine 20 Mg Tablet) 40 mg PO BEDTIME PRN PRN Reason: heartburn Fluticasone/Vilanterol (Fluticasone/Vilanterol 100/25 Blst.W.Dev) 1 puff INHALE DAILY [facility] Last Admin: 08/27/22 07:44 Dose: 1 puff Gabapentin (Gabapentin 300 Mg Capsule) 600 mg PO BEDTIME PRN PRN Reason: Pain, Moderate (Pain Scale 4-6 Last Admin: 08/26/22 20:49 Dose: 600 mg Ceftriaxone Sodium 1 gm/ (Sodium Chloride) 50 mls @ 100 mls/hr IV Q24H YESSENIA Azithromycin 500 mg/ Sodium (Chloride) 250 mls @ 125 mls/hr IV Q24H [facility] Latanoprost (Latanoprost 0.005 % Ophth Evelyn 2.5 Ml Drops) 1 drop EYE-BOTH BEDTIME [facility] Last Admin: 08/26/22 20:33 Dose: 1 drop Levalbuterol HCl (Levalbuterol Hcl 1.25 Mg/0.5 Ml Vial.Neb) 1.25 mg INHALE RQ4H WHILE AWAKE [facility] Last Admin: 08/27/22 07:44 Dose: 1.25 mg Methylprednisolone Sodium Succinate (Methylprednisolone Sod Succ 40 Mg/Ml Vial) 40 mg IVPUSH Q8H YESSENIA Last Admin: 08/27/22 06:01 Dose: 40 mg Morphine Sulfate (Morphine Sulfate 2 Mg/Ml Cartridge) 2 mg IVPUSH Q4H PRN; Protocol PRN Reason: Pain, Mild (Pain Scale 1-3) Last Admin: 08/27/22 07:53 Dose: 2 mg Non-Formulary Medication (Linaclotide [Linzess]) 145 mcg PO DAILY [facility] Ondansetron HCl (Ondansetron Hcl 4 Mg/2 Ml Vial) 4 mg IVPUSH Q8H PRN PRN Reason: Nausea and Vomiting Pharmacy Consult (Consult Rx Perform Med Rec) 1 each MISCELLANE ONCE PRN PRN Reason: Consult order Quetiapine Fumarate (Quetiapine Fumarate 300 Mg Tablet) 300 mg PO BEDTIME [facility] Last Admin: 08/26/22 20:33 Dose: 300 mg Sodium Chloride (0.9 % Sodium Chloride Flush 3 Ml Syringe) 3 ml IVFLUSH QSHIFT [facility] Last Admin: 08/27/22 07:47 Dose: 3 ml Sotalol HCl (Sotalol Hcl 80 Mg Tablet) 80 mg PO BID [facility] Last Admin: 08/27/22 07:47 Dose: 80 mg Trazodone HCl (Trazodone Hcl 100 Mg Tablet) 100 mg PO BEDTIME PRN PRN Reason: Sleep Last Admin: 08/26/22 20:49 Dose: 100 mg Valsartan (Valsartan 40 Mg Tablet) 20 mg PO BID [facility]; Protocol Last Admin: 08/27/22 07:45 Dose: 20 mg Home Medications Medication Instructions Recorded Confirmed Last Taken Type latanoprost 0.005 % eye drops 1 drp ophthalmic (eye) BEDTIME 03/27/20 08/26/22 Unknown History quetiapine 300 mg tablet 300 mg PO BEDTIME 03/27/20 08/26/22 Unknown History simvastatin 20 mg tablet 20 mg PO BEDTIME 03/27/20 08/26/22 Unknown History albuterol sulfate 90 mcg/actuation 2 puff inhalation Q6H PRN wheezing 08/26/22 08/26/22 Unknown History aerosol inhaler (Ventolin HFA) fluticasone fur. 200 mcg-umeclid 1 inh PO DAILY 08/26/22 08/26/22 Unknown History 62.5 mcg-vilant 25 mcg inhalat.powder (Trelegy Ellipta) gabapentin 300 mg capsule 600 mg PO BEDTIME PRN Pain, 08/26/22 08/26/22 Unknown History Moderate Physical Exam Vital Signs: Vital Signs: Last Vital Signs Temp 98.4 F 08/27/22 07:41 Pulse 92 08/27/22 07:46 Resp 18 08/27/22 07:46 BP 124/77 08/27/22 07:41 Pulse Ox 88 L 08/27/22 07:41 O2 Del Method 08/27/22 07:41 O2 Flow Rate 3 08/27/22 07:41 BMI result Body Mass Index 28.5 Const: General: alert Neck: Neck: Yes normal visual inspection, Yes full ROM and Yes no lymphadenopathy Chest: Chest palpation & inspection: normal inspection of the chest Resp: Auscultation: diminished lung sounds Cardio: Rate: regular rate Rhythm: abnormal rhythm Heart sounds: S1 normal heart sound present and S2 normal heart sound present GI: Palpation (GI): Soft to palpation and nontender Auscultation: normal bowel sounds Skin: General skin exam: rashes and/or lesions noted Results Laboratory Findings 08/26/22 10:38 08/27/22 05:56 Abnormal lab findings: Abnormal Labs 08/26/22 08/26/22 08/26/22 10:38 10:38 10:38 RBC 3.99 L Hgb 11.6 L Hct 35.9 L Immature Gran % (Auto) 0.5 H Neut % (Auto) 79.6 H Lymph % (Auto) 11.5 L Lymph # (Auto) 1.0 L Abs Immat Gran (auto) 0.04 H BUN 25 H Random Glucose Calcium 8.0 L Total Bilirubin 2.0 H AST 48 H Total Protein 6.2 L Albumin 3.3 L Urine Blood Small (1+) H Urine RBC 3-5 H 08/27/22 05:56 RBC Hgb Hct Immature Gran % (Auto) Neut % (Auto) Lymph % (Auto) Lymph # (Auto) Abs Immat Gran (auto) BUN 33 H Random Glucose 151 H Calcium 8.2 L Total Bilirubin 1.3 H AST Total Protein 5.7 L Albumin 3.0 L Urine Blood Urine RBC Assessment and Plan (1) Acute exacerbation of chronic obstructive pulmonary disease: Status: Acute (2) Pulmonary nodules: Status: Acute (3) Pneumonia: Status: Acute (4) Atrial fibrillation with rapid ventricular response: Status: Acute better Plan continue antibiotic coverage I stopped the Eliquis The patient already had a scheduled bronchoscopy for . If his Afib stay under control we should move forward to try to perform the bronchoscopy this . continue oxygen supplementation to keep pox>90% Time Spent With Patient Time: Total time managing care of this patient today ____ minutes. Procedures Date of Service Date of Service: 08/27/22
[2022-08-27] MEDS: cefTRIAXone sodium 1 GM in 0.9 % Sodium Chloride 50 ML IV (09:28)
--- NOTE | 2022-08-27 09:47 | HO.PM.IMPN ---
Subjective Subjective Date of Service: 08/27/22 Review of Systems Follow up back pain, resp failure and COPD feeling better no cough or sob Physical Exam Vital Signs: Vital Signs: Last Vital Signs Temp 98.4 F 08/27/22 07:41 Pulse 92 08/27/22 07:46 Resp 18 08/27/22 07:46 BP 124/77 08/27/22 07:41 Pulse Ox 88 L 08/27/22 07:41 O2 Del Method 08/27/22 07:41 O2 Flow Rate 3 08/27/22 07:41 BMI result Body Mass Index 28.5 Appearing in no acute distress lung sounds are clear to auscultation heart regular rate rhythm, clear S1, S2 positive bowel sounds, abdomen is soft, nontender neuro patient is alert x3, no focal deficits Objective Data Active Medications Acetaminophen (Acetaminophen 325 Mg Tablet) 650 mg PO Q6H PRN PRN Reason: Pain, Mild (Pain Scale 1-3) Last Admin: 08/26/22 20:49 Dose: 650 mg Documented By: JIMI Atorvastatin Calcium (Atorvastatin Calcium 10 Mg Tablet) 10 mg PO BEDTIME [facility] Last Admin: 08/26/22 20:33 Dose: 10 mg Documented By: JIMI Famotidine (Famotidine 20 Mg Tablet) 40 mg PO BEDTIME PRN PRN Reason: heartburn Fluticasone/Vilanterol (Fluticasone/Vilanterol 100/25 Blst.W.Dev) 1 puff INHALE DAILY [facility] Last Admin: 08/27/22 07:44 Dose: 1 puff Documented By: YONASRICBrad Gabapentin (Gabapentin 300 Mg Capsule) 600 mg PO BEDTIME PRN PRN Reason: Pain, Moderate (Pain Scale 4-6 Last Admin: 08/26/22 20:49 Dose: 600 mg Documented By: JIMI Ceftriaxone Sodium 1 gm/ (Sodium Chloride) 50 mls @ 100 mls/hr IV Q24H [facility] Last Admin: 08/27/22 09:28 Dose: 100 mls/hr Documented By: DANIELLA Azithromycin 500 mg/ Sodium (Chloride) 250 mls @ 125 mls/hr IV Q24H [facility] Latanoprost (Latanoprost 0.005 % Ophth Evelyn 2.5 Ml Drops) 1 drop EYE-BOTH BEDTIME [facility] Last Admin: 08/26/22 20:33 Dose: 1 drop Documented By: JIMI Levalbuterol HCl (Levalbuterol Hcl 1.25 Mg/0.5 Ml Vial.Neb) 1.25 mg INHALE RQ4H WHILE AWAKE [facility] Last Admin: 08/27/22 07:44 Dose: 1.25 mg Documented By: TRINA Methylprednisolone Sodium Succinate (Methylprednisolone Sod Succ 40 Mg/Ml Vial) 40 mg IVPUSH Q8H [facility] Last Admin: 08/27/22 06:01 Dose: 40 mg Documented By: JIMI Morphine Sulfate (Morphine Sulfate 2 Mg/Ml Cartridge) 2 mg IVPUSH Q4H PRN; Protocol PRN Reason: Pain, Mild (Pain Scale 1-3) Last Admin: 08/27/22 07:53 Dose: 2 mg Documented By: DANIELLA Non-Formulary Medication (Linaclotide [Linzess]) 145 mcg PO DAILY [facility] Ondansetron HCl (Ondansetron Hcl 4 Mg/2 Ml Vial) 4 mg IVPUSH Q8H PRN PRN Reason: Nausea and Vomiting Pharmacy Consult (Consult Rx Perform Med Rec) 1 each MISCELLANE ONCE PRN PRN Reason: Consult order Quetiapine Fumarate (Quetiapine Fumarate 300 Mg Tablet) 300 mg PO BEDTIME [facility] Last Admin: 08/26/22 20:33 Dose: 300 mg Documented By: JIMI Sodium Chloride (0.9 % Sodium Chloride Flush 3 Ml Syringe) 3 ml IVFLUSH QSHIFT [facility] Last Admin: 08/27/22 07:47 Dose: 3 ml Documented By: DANIELLA Sotalol HCl (Sotalol Hcl 80 Mg Tablet) 80 mg PO BID [facility] Last Admin: 08/27/22 07:47 Dose: 80 mg Documented By: DANIELLA Trazodone HCl (Trazodone Hcl 100 Mg Tablet) 100 mg PO BEDTIME PRN PRN Reason: Sleep Last Admin: 08/26/22 20:49 Dose: 100 mg Documented By: JIMI Valsartan (Valsartan 40 Mg Tablet) 20 mg PO BID [facility]; Protocol Last Admin: 08/27/22 07:45 Dose: 20 mg Documented By: DANIELLA Labs 08/26/22 10:38 08/27/22 05:56 Labs: Laboratory Results - last 24 hr 08/26/22 08/26/22 08/26/22 10:38 10:38 10:38 MCV 90.0 MCH 29.1 MCHC 32.3 RDW 13.3 Plt Count 170 MPV 9.6 Immature Gran % (Auto) 0.5 H Neut % (Auto) 79.6 H Lymph % (Auto) 11.5 L [place] % (Auto) 8.1 Eos % (Auto) 0.2 Baso % (Auto) 0.1 Lymph # (Auto) 1.0 L [place] # (Auto) 0.7 Eos # (Auto) 0.0 Baso # (Auto) 0.0 Abs Immat Gran (auto) 0.04 H Absolute Neuts (auto) 6.9 Absolute Nucleated RBC 0.000 Nucleated RBC % (auto) 0.0 Anion Gap 13 Estim Creat Clear Calc 93.3 Estimated GFR > 60 Random Glucose 113 Lactic Acid Calcium 8.0 L Total Bilirubin 2.0 H Direct Bilirubin 0.5 AST 48 H ALT 31 Alkaline Phosphatase 59 B-Natriuretic Peptide Total Protein 6.2 L Albumin 3.3 L Lipase 19 Urine Color Yellow Urine Appearance Clear Urine pH 5.5 Ur Specific [place] 1.020 Urine Protein Trace Urine Glucose (UA) Negative Urine Ketones Negative Urine Blood Small (1+) H Urine Nitrite Negative Ur Leukocyte Esterase Negative Urine RBC 3-5 H Urine WBC 0-5 Ur Squamous Epith Cells 0-2 Urine Bacteria None Seen Hyaline Casts 0-2 Influenza Type A (PCR) Influenza Type B (PCR) RSV RNA Qual (PCR) SARS-CoV-2 RNA (RT-PCR) 08/26/22 08/26/22 08/26/22 14:48 15:03 15:03 MCV MCH MCHC RDW Plt Count MPV Immature Gran % (Auto) Neut % (Auto) Lymph % (Auto) [place] % (Auto) Eos % (Auto) Baso % (Auto) Lymph # (Auto) [place] # (Auto) Eos # (Auto) Baso # (Auto) Abs Immat Gran (auto) Absolute Neuts (auto) Absolute Nucleated RBC Nucleated RBC % (auto) Anion Gap Estim Creat Clear Calc Estimated GFR Random Glucose Lactic Acid 1.1 Calcium Total Bilirubin Direct Bilirubin AST ALT Alkaline Phosphatase B-Natriuretic Peptide 36 Total Protein Albumin Lipase Urine Color Urine Appearance Urine pH Ur Specific [place] Urine Protein Urine Glucose (UA) Urine Ketones Urine Blood Urine Nitrite Ur Leukocyte Esterase Urine RBC Urine WBC Ur Squamous Epith Cells Urine Bacteria Hyaline Casts Influenza Type A (PCR) NEGATIVE Influenza Type B (PCR) NEGATIVE RSV RNA Qual (PCR) NEGATIVE SARS-CoV-2 RNA (RT-PCR) NEGATIVE 08/27/22 05:56 MCV MCH MCHC RDW Plt Count MPV Immature Gran % (Auto) Neut % (Auto) Lymph % (Auto) [place] % (Auto) Eos % (Auto) Baso % (Auto) Lymph # (Auto) [place] # (Auto) Eos # (Auto) Baso # (Auto) Abs Immat Gran (auto) Absolute Neuts (auto) Absolute Nucleated RBC Nucleated RBC % (auto) Anion Gap 14 Estim Creat Clear Calc 93.3 Estimated GFR > 60 Random Glucose 151 H Lactic Acid Calcium 8.2 L Total Bilirubin 1.3 H Direct Bilirubin AST 30 ALT 29 Alkaline Phosphatase 55 B-Natriuretic Peptide Total Protein 5.7 L Albumin 3.0 L Lipase Urine Color Urine Appearance Urine pH Ur Specific [place] Urine Protein Urine Glucose (UA) Urine Ketones Urine Blood Urine Nitrite Ur Leukocyte Esterase Urine RBC Urine WBC Ur Squamous Epith Cells Urine Bacteria Hyaline Casts Influenza Type A (PCR) Influenza Type B (PCR) RSV RNA Qual (PCR) SARS-CoV-2 RNA (RT-PCR) Assessment and Plan (1) Pneumonia: Status: Acute Plan 67 year old man admitted with COPD exacerbation and afib rvr Acute on chronic respiratory failure secondary to COPD exacerbation and possible pneumonia Continue Rocephin and azithromycin continue supplemental oxygen Pulmonary consultation, will have bronchoscopy on Afib RVR with hx of PAF now in SR given IV cardizem in the ED Continue Eliquis Sotalol and coreg back pain secondary to Compression fracture L1 pain management will discuss with radiology re kyphoplasty HTN continue home medications Hx of HFrEF check BNP no obvious exacerbation Mental health continue home medications DVT prophylaxis Attending Dr. Davis full code continue hospitalization for treatment of acute on chronic respiratory failure secondary to COPD exacerbation, back pain in atrial fibrillation Time Spent With Patient Time: Total time managing care of this patient today ____ minutes. Quality Stroke Does the patient have a stroke diagnosis?: No VTE Prior VTE?: No VTE Risk Level:: Medical - moderate - high VTE Device Contraindication: Treatment Not Indicated VTE Drug Contraindication: N/A - Med Ordered
[2022-08-27] MEDS: Azithromycin 500 MG in 0.9 % Sodium Chloride 250 ML 125 MG IV (10:45)
--- NOTE | 2022-08-27 10:52 | MHC.CM.PN ---
IMM 08/27/22 Male 67 DX AFIB RVR COPD He lives by himself. 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 He states that he is independent with ADLS, no A.D. He has been Vaxxed x3 A new HCP has been documented and placed on the chart. DP home resume SERVICE CENTER TECHNICIAN. Patient will arrange for transport home.
[2022-08-27] MEDS: QUEtiapine Fumarate 300 MG TABLET PO (22:20)
[2022-08-27] MEDS: Famotidine 20 MG TABLET 40 MG PO (22:20)
[2022-08-27] MEDS: Atorvastatin Calcium 10 MG TABLET PO (22:21)
[2022-08-27] MEDS: Latanoprost 0.005 % Ophth Sol 2.5 ML DROPS 1 DROP EYE-BOTH (22:21)
[2022-08-28] VITALS (9 sets, daily range): BP systolic 109–131; BP diastolic 60–87; PULSE 70–88; RESP 16–20; TEMP 36.4–37.3; O2SAT 89–95
[2022-08-28] MEDS: methylPREDNISolone Sod Succ 40 MG/ML VIAL IVPUSH ×3 (06:09→21:52)
[2022-08-28] MEDS: Morphine Sulfate 2 MG/ML CARTRIDGE IVPUSH ×2 (06:17→16:52)
[2022-08-28] MEDS: Fluticasone/Vilanterol 100/25 BLST.W.DEV 1 PUFF INHALE (07:47)
[2022-08-28] MEDS: Sotalol HCL 80 MG TABLET PO ×2 (08:27→19:27)
[2022-08-28] MEDS: Valsartan 40 MG TABLET 20 MG PO ×2 (08:27→19:27)
[2022-08-28] MEDS: 0.9 % Sodium Chloride Flush 3 ML SYRINGE IVFLUSH ×2 (08:28→16:53)
[2022-08-28] MEDS: cefTRIAXone sodium 1 GM in 0.9 % Sodium Chloride 50 ML IV (08:28)
[2022-08-28] MEDS: Azithromycin 500 MG in 0.9 % Sodium Chloride 250 ML 125 MG IV (08:33)
--- NOTE | 2022-08-28 10:22 | P.PNPL_ITS ---
Subjective Subjective Date of Service: 08/28/22 Interval history: The patient was seen on exam. A still having productive cough with dark sputum. Moderate severity. Still complains significant back pain from the compression fracture. Radiology opted for a nuclear bone scan prior to further intervention. He still on the IV antibiotics. Will plan to perform bronchoscopy tomorrow. The patient will be NPO after midnight. The patient has been off the anticoagulation. Objective Data Labs 08/26/22 10:38 08/27/22 05:56 Microbiology Microbiology Results: Microbiology 08/26/22 15:03 Blood - Venous Blood Culture - Preliminary No growth after 24 hours. 08/26/22 15:03 Blood - Venous Blood Culture - Preliminary No growth after 24 hours. Review of Systems Review of Systems Yes all other systems are reviewed and are negative Constitutional: Denies body ache(s), Denies chills, Denies fever(s), Denies headache(s) and Denies weakness Eyes: Reports no additional eye complaints and Denies change in vision Reports system reviewed and no additional complaints, except as documented, Denies dizziness, Denies headache(s), Denies nasal congestion, Denies nasal discharge and Denies neck pain Cardiovascular: Reports no additional cardiovascular complaints, Denies chest pain, Denies leg edema and Reports dyspnea Respiratory: Reports cough and Reports dyspnea Gastrointestinal: Reports no additional gastrointestinal complaints, Denies abdominal pain, Denies diarrhea, Denies nausea and Denies vomiting Genitourinary: Denies urinary incontinence Musculoskeletal: Reports no additional musculoskeletal complaints, Reports back pain, Denies arthralgias, Denies joint swelling, Denies neck pain, Denies numbne ss and Denies tingling Skin/Breast: Reports system reviewed and no additional complaints, except as docu and Denies rash Reports system reviewed and no additional complaints, except as documented, Denies dizziness, Denies headache(s), Denies numbness, Denies tingling and Mauri es weakness Physical Exam Vital Signs: Vital Signs: Last Vital Signs Temp 98.0 F 08/28/22 07:30 Pulse 88 08/28/22 07:48 Resp 18 08/28/22 07:48 BP 110/60 08/28/22 07:30 Pulse Ox 94 08/28/22 07:30 O2 Del Method 08/28/22 07:30 O2 Flow Rate 2.5 08/28/22 07:30 BMI result Body Mass Index 28.5 Const: General: alert Neck: Neck: Yes normal visual inspection, Yes full ROM and Yes no lymphadenopathy Chest: Chest palpation & inspection: normal inspection of the chest Resp: Auscultation: diminished lung sounds Cardio: Rate: regular rate Rhythm: abnormal rhythm Heart sounds: S1 normal heart sound present and S2 normal heart sound present GI: Palpation (GI): Soft to palpation and nontender Auscultation: normal bowel sounds Skin: General skin exam: rashes and/or lesions noted Procedures Date of Service Date of Service: 08/28/22 Assessment and Plan Assessment and plan (1) Hypoxia: Status: Acute (2) Pneumonia: Status: Acute (3) Acute exacerbation of chronic obstructive pulmonary disease: Status: Acute (4) Closed compression fracture of L1 vertebra: Status: Acute Plan NPO tonight for bronchoscopy tomorrow continue IV abx pain management hopefully undergo vertebroplasty Time Spent With Patient Time: Total time managing care of this patient today ____ minutes. Progress Note: Quality Stroke Does the patient have a stroke diagnosis?: No
--- NOTE | 2022-08-28 10:42 | HO.PM.IMPN ---
Subjective Subjective Date of Service: 08/28/22 Review of Systems Follow up back pain, resp failure and COPD feeling better, but still with back pain no cough or sob Physical Exam Vital Signs: Vital Signs: Last Vital Signs Temp 98.0 F 08/28/22 07:30 Pulse 88 08/28/22 07:48 Resp 18 08/28/22 07:48 BP 110/60 08/28/22 07:30 Pulse Ox 94 08/28/22 07:30 O2 Del Method 08/28/22 07:30 O2 Flow Rate 2.5 08/28/22 07:30 BMI result Body Mass Index 28.5 Appearing in no acute distress lung sounds are clear to auscultation heart regular rate rhythm, clear S1, S2 positive bowel sounds, abdomen is soft, nontender neuro patient is alert x3, no focal deficits Objective Data Active Medications Acetaminophen (Acetaminophen 325 Mg Tablet) 650 mg PO Q6H PRN PRN Reason: Pain, Mild (Pain Scale 1-3) Last Admin: 08/26/22 20:49 Dose: 650 mg Documented By: JIMI Atorvastatin Calcium (Atorvastatin Calcium 10 Mg Tablet) 10 mg PO BEDTIME [facility] Last Admin: 08/27/22 22:21 Dose: 10 mg Documented By: QUENTIN Famotidine (Famotidine 20 Mg Tablet) 40 mg PO BEDTIME PRN PRN Reason: heartburn Last Admin: 08/27/22 22:20 Dose: 40 mg Documented By: QUENTIN Fluticasone/Vilanterol (Fluticasone/Vilanterol 100/25 Blst.W.Dev) 1 puff INHALE DAILY [facility] Last Admin: 08/28/22 07:47 Dose: 1 puff Documented By: TRINA Gabapentin (Gabapentin 300 Mg Capsule) 600 mg PO BEDTIME PRN PRN Reason: Pain, Moderate (Pain Scale 4-6 Last Admin: 08/26/22 20:49 Dose: 600 mg Documented By: JIMI Ceftriaxone Sodium 1 gm/ (Sodium Chloride) 50 mls @ 100 mls/hr IV Q24H [facility] Last Infusion: 08/28/22 09:07 Dose: 0 mls/hr Documented By: RENETTA Azithromycin 500 mg/ Sodium (Chloride) 250 mls @ 125 mls/hr IV Q24H [facility] Last Admin: 08/28/22 08:33 Dose: 125 mls/hr Documented By: RENETTA Latanoprost (Latanoprost 0.005 % Ophth Evelyn 2.5 Ml Drops) 1 drop EYE-BOTH BEDTIME [facility] Last Admin: 08/27/22 22:21 Dose: 1 drop Documented By: QUENTIN Levalbuterol HCl (Levalbuterol Hcl 1.25 Mg/0.5 Ml Vial.Neb) 1.25 mg INHALE RQ4H WHILE AWAKE [facility] Last Admin: 08/28/22 10:40 Dose: 1.25 mg Documented By: TRINA Methylprednisolone Sodium Succinate (Methylprednisolone Sod Succ 40 Mg/Ml Vial) 40 mg IVPUSH Q8H [facility] Last Admin: 08/28/22 06:09 Dose: 40 mg Documented By: QUENTIN Morphine Sulfate (Morphine Sulfate 2 Mg/Ml Cartridge) 2 mg IVPUSH Q4H PRN; Protocol PRN Reason: Pain, Mild (Pain Scale 1-3) Last Admin: 08/28/22 06:17 Dose: 2 mg Documented By: QUENTIN Non-Formulary Medication (Linaclotide [Linzess]) 145 mcg PO DAILY [facility] Ondansetron HCl (Ondansetron Hcl 4 Mg/2 Ml Vial) 4 mg IVPUSH Q8H PRN PRN Reason: Nausea and Vomiting Pharmacy Consult (Consult Rx Perform Med Rec) 1 each MISCELLANE ONCE PRN PRN Reason: Consult order Quetiapine Fumarate (Quetiapine Fumarate 300 Mg Tablet) 300 mg PO BEDTIME [facility] Last Admin: 08/27/22 22:20 Dose: 300 mg Documented By: QUENTIN Sodium Chloride (0.9 % Sodium Chloride Flush 3 Ml Syringe) 3 ml IVFLUSH QSHIFT [facility] Last Admin: 08/28/22 08:28 Dose: 3 ml Documented By: RENETTA Sotalol HCl (Sotalol Hcl 80 Mg Tablet) 80 mg PO BID [facility] Last Admin: 08/28/22 08:27 Dose: 80 mg Documented By: RENETTA Trazodone HCl (Trazodone Hcl 100 Mg Tablet) 100 mg PO BEDTIME PRN PRN Reason: Sleep Last Admin: 08/26/22 20:49 Dose: 100 mg Documented By: JIMI Valsartan (Valsartan 40 Mg Tablet) 20 mg PO BID [facility]; Protocol Last Admin: 08/28/22 08:27 Dose: 20 mg Documented By: RENETTA Labs 08/26/22 10:38 08/27/22 05:56 Microbiology Microbiology Results: Microbiology 08/26/22 15:03 Blood Culture - Preliminary Blood - Venous No growth after 24 hours. 08/26/22 15:03 Blood Culture - Preliminary Blood - Venous No growth after 24 hours. Assessment and Plan (1) Pneumonia: Status: Acute Plan 67 year old man admitted with COPD exacerbation and afib rvr Acute on chronic respiratory failure secondary to COPD exacerbation and possible pneumonia Continue Rocephin and azithromycin continue supplemental oxygen Pulmonary consultation, will have bronchoscopy on Afib RVR with hx of PAF now in SR given IV cardizem in the ED Continue Eliquis Sotalol and coreg back pain secondary to Compression fracture L1 pain management IR rec bone scan to r/o other fractures, pending HTN continue home medications Hx of HFrEF check BNP no obvious exacerbation Mental health continue home medications DVT prophylaxis Attending Dr. Davis full code continue hospitalization for treatment of acute on chronic respiratory failure secondary to COPD exacerbation, back pain in atrial fibrillation Time Spent With Patient Time: Total time managing care of this patient today ____ minutes. Quality Stroke Does the patient have a stroke diagnosis?: No VTE Prior VTE?: No VTE Risk Level:: Medical - moderate - high VTE Device Contraindication: Treatment Not Indicated VTE Drug Contraindication: N/A - Med Ordered
--- NOTE | 2022-08-28 15:05 | MHC.CM.PN ---
Per MD rounds no discharge today. Patient scheduled for a Bone scan as well as a Bronch tomorrow. DP is home with resumption of [facility] and family transport. CM will follow to address changes needed in discharge plan.
--- NOTE | 2022-08-28 15:36 | P.CDIM_ITS ---
PROVIDER RESPONSE TEXT: To clarify, the appropriate diagnosis supported by the clinical indicators: Other (explain): no documented hypoxia QUERY TEXT: PHYSICIAN'S DOCUMENTATION REQUEST Date of Query: 08/28/2022 03:11 PM EST Patient Name: Avery Ware Admit Date: 08/26/2022 Dear Geovanna Sterling, A review of the medical record indicates additional documentation may be needed. Please review below and update the documentation accordingly. Respiratory failure was documented in provider notes. Clinical Indicators: -Per provider progress notes: Acute on chronic respiratory failure secondary to COPD exacerbation and possible pneumonia -Patient with frequent decreases in O2 sat -Patient requiring O2 via NC -Patient with tachypnea (RR reaching 27) -Patient with SOB If possible, please further clarify the type and acuity of respiratory failure: Respiratory failure with hypoxia Please specify acuity as Acute, Chronic, or Acute on chronic if known Respiratory failure with hypercapnia Please specify acuity as Acute, Chronic, or Acute on chronic if known Respiratory failure with hypoxia and hypercapnia Please specify acuity as Acute, Chronic, or Acute on chronic if known Other Other (explain) Clinically unable to determine (explain) Thank you, Chayo Betts, MS, RN, CCRN Use of terms such as suspected, likely, concern for, or probable (associated with a specific diagnosi s that is being evaluated, monitored, or treated as if it exists) are acceptable and can be coded in the inpatient se tting, when documented at the time of discharge. Please use your independent medical judgment in providing your response. THIS QUERY IS PART OF THE PERMANENT MEDICAL RECORD
[2022-08-28] MEDS: traZODone HCL 100 MG TABLET PO (19:28)
[2022-08-28] MEDS: QUEtiapine Fumarate 300 MG TABLET PO (19:28)
[2022-08-28] MEDS: Atorvastatin Calcium 10 MG TABLET PO (19:28)
[2022-08-28] MEDS: Latanoprost 0.005 % Ophth Sol 2.5 ML DROPS 1 DROP EYE-BOTH (19:29)
[2022-08-29] VITALS (15 sets, daily range): BP systolic 98–130; BP diastolic 59–86; PULSE 60–83; RESP 15–20; TEMP 36.2–37; O2SAT 92–98
[2022-08-29] MEDS: methylPREDNISolone Sod Succ 40 MG/ML VIAL IVPUSH ×3 (05:12→18:01)
[2022-08-29 07:02] LABS: Anion Gap 13 (12-20); Blood Urea Nitrogen 29 mg/dL (9-16); Calcium 7.8 mg/dL (8.4-10.2); Carbon Dioxide 24 mmol/L (22-29); Chloride 108 mmol/L (96-108); Creatinine Clr Calc Pharmacy 103.3; Estimated Glomerular Filt Rate > 60; Glucose Random 119 mg/dL (60-115); Potassium 4.7 mmol/L (3.3-5.1); Sodium 140 mmol/L (135-145)
--- NOTE | 2022-08-29 08:09 | MHC.SHP ---
Pre-Procedural Eval Section A Date of Service: 08/29/22 The patient is an INPATIENT: Yes Section B Chief Complaint: AFIB RVR, COPD Allergies: Allergies Allergy/AdvReac Type Severity Reaction Status Date / Time No Known Allergies Allergy Verified 08/21/22 10:59 [No Known Allergies*] Plan I have reviewed the history and physical and performed a pertinent physical examination on my patient. No changes have occurred unless specified. Time Spent With Patient Time: Total time managing care of this patient today ____ minutes.
[2022-08-29] MEDS: Azithromycin 500 MG in 0.9 % Sodium Chloride 250 ML 125 MG IV (10:46)
[2022-08-29] MEDS: cefTRIAXone sodium 1 GM in 0.9 % Sodium Chloride 50 ML IV (10:46)
[2022-08-29] MEDS: Fluticasone/Vilanterol 100/25 BLST.W.DEV 1 PUFF INHALE (11:40)
[2022-08-29] MEDS: Lactated Ringers 1,000 ML 80 ML IVCONT (11:58)
--- NOTE | 2022-08-29 12:54 | P.BOP_ITS ---
Brief Operative Note Date of Service: 08/29/22 Pre-op diagnosis: pneumonia Post-op diagnosis: same Procedure: bronchoscopy with washings and brushings Surgeon: Layton Sterling MD Anesthesia: GLMA Was an Sign Language Translator used for this Procedure?: No Estimated blood loss (mL): 0 Pathology: none sent Condition: stable Disposition: floor
--- NOTE | 2022-08-29 17:39 | HO.PM.IMPN ---
Subjective Subjective Date of Service: 08/29/22 Interval History: seen and examined this morning follow up for COPD exacerbation, back pain History obtained with the assistance of a software test developer s/p bronch this am no sob at this time Review of Systems Review of Systems: Yes all other systems are reviewed and are negative Constitutional Constitutional: Denies chills and Denies fever(s) Cardiovascular Cardiovascular: Denies chest pain, Denies palpitations and Denies dyspnea Respiratory Respiratory: Reports cough and Denies dyspnea Gastrointestinal Gastrointestinal: Denies abdominal pain Endocrine Endocrine: Denies palpitations Physical Exam Vital Signs: Vital Signs: Last Vital Signs Temp 98.6 F 08/29/22 15:37 Pulse 71 08/29/22 15:45 Resp 16 08/29/22 15:45 BP 121/67 08/29/22 15:37 Pulse Ox 98 08/29/22 15:37 O2 Del Method 08/29/22 15:37 O2 Flow Rate 2 08/29/22 09:55 FiO2 45 08/29/22 09:44 BMI result Body Mass Index 28.5 Const: General: comfortable, no acute distress, alert and awake Nutritional Appearance: average body habitus Orientation/consciousness: patient oriented x3 Resp: Effort & Inspection: normal respiratory effort, able to speak in complete sentences and no respiratory distress Auscultation: clear to auscultation bilaterally Cardio: Rate: regular rate Heart sounds: S1 normal heart sound present and S2 normal heart sound present GI: Inspection: No distended Palpation (GI): Soft to palpation Neuro: General: patient oriented x3 Extrem: General: Yes no pedal edema Objective Data Active Medications Acetaminophen (Acetaminophen 325 Mg Tablet) 650 mg PO Q6H PRN PRN Reason: Pain, Mild (Pain Scale 1-3) Last Admin: 08/26/22 20:49 Dose: 650 mg Documented By: JIMI Atorvastatin Calcium (Atorvastatin Calcium 10 Mg Tablet) 10 mg PO BEDTIME [facility] Last Admin: 08/28/22 19:28 Dose: 10 mg Documented By: KRISTIAN Famotidine (Famotidine 20 Mg Tablet) 40 mg PO BEDTIME PRN PRN Reason: heartburn Last Admin: 08/27/22 22:20 Dose: 40 mg Documented By: QUENTIN Fluticasone/Vilanterol (Fluticasone/Vilanterol 100/25 Blst.W.Dev) 1 puff INHALE DAILY [facility] Last Admin: 08/29/22 11:40 Dose: 1 puff Documented By: YOLIE Gabapentin (Gabapentin 300 Mg Capsule) 600 mg PO BEDTIME PRN PRN Reason: Pain, Moderate (Pain Scale 4-6 Last Admin: 08/26/22 20:49 Dose: 600 mg Documented By: JIMI Ceftriaxone Sodium 1 gm/ (Sodium Chloride) 50 mls @ 100 mls/hr IV Q24H [facility] Stop: 09/02/22 23:59 Last Infusion: 08/29/22 11:18 Dose: 0 mls/hr Documented By: SIOMARA Azithromycin 500 mg/ Sodium (Chloride) 250 mls @ 125 mls/hr IV Q24H [facility] Stop: 09/02/22 23:59 Last Infusion: 08/29/22 13:15 Dose: 0 mls/hr Documented By: SIOMARA Latanoprost (Latanoprost 0.005 % Ophth Evelyn 2.5 Ml Drops) 1 drop EYE-BOTH BEDTIME [facility] Last Admin: 08/28/22 19:29 Dose: 1 drop Documented By: KRISTIAN Levalbuterol HCl (Levalbuterol Hcl 1.25 Mg/0.5 Ml Vial.Neb) 1.25 mg INHALE RQ4H WHILE AWAKE [facility] Last Admin: 08/29/22 15:41 Dose: 1.25 mg Documented By: YOLIE Methylprednisolone Sodium Succinate (Methylprednisolone Sod Succ 40 Mg/Ml Vial) 40 mg IVPUSH Q8H [facility] Last Admin: 08/29/22 14:21 Dose: 40 mg Documented By: SIOMARA Morphine Sulfate (Morphine Sulfate 2 Mg/Ml Cartridge) 2 mg IVPUSH Q4H PRN; Protocol PRN Reason: Pain, Mild (Pain Scale 1-3) Last Admin: 08/28/22 16:52 Dose: 2 mg Documented By: RENETTA Non-Formulary Medication (Linaclotide [Linzess]) 145 mcg PO DAILY [facility] Ondansetron HCl (Ondansetron Hcl 4 Mg/2 Ml Vial) 4 mg IVPUSH Q8H PRN PRN Reason: Nausea and Vomiting Pharmacy Consult (Consult Rx Perform Med Rec) 1 each MISCELLANE ONCE PRN PRN Reason: Consult order Quetiapine Fumarate (Quetiapine Fumarate 300 Mg Tablet) 300 mg PO BEDTIME [facility] Last Admin: 08/28/22 19:28 Dose: 300 mg Documented By: KRISTIAN Sodium Chloride (0.9 % Sodium Chloride Flush 3 Ml Syringe) 3 ml IVFLUSH QSHIFT [facility] Last Admin: 08/29/22 10:27 Dose: Not Given Documented By: SIOMARA Non-Admin Reason: Off Unit: Surgery Sotalol HCl (Sotalol Hcl 80 Mg Tablet) 80 mg PO BID [facility] Last Admin: 08/29/22 10:00 Dose: Not Given Documented By: SIOMARA Non-Admin Reason: Off Unit: Surgery Trazodone HCl (Trazodone Hcl 100 Mg Tablet) 100 mg PO BEDTIME PRN PRN Reason: Sleep Last Admin: 08/28/22 19:28 Dose: 100 mg Documented By: KRISTIAN Valsartan (Valsartan 40 Mg Tablet) 20 mg PO BID [facility]; Protocol Last Admin: 08/29/22 10:29 Dose: Not Given Documented By: SIOMARA Non-Admin Reason: Off Unit: Surgery Labs 08/26/22 10:38 08/29/22 05:58 Labs: Laboratory Results - last 24 hr 08/29/22 05:58 Anion Gap 13 Estim Creat Clear Calc 103.3 Estimated GFR > 60 Random Glucose 119 H Calcium 7.8 L Microbiology Microbiology Results: Microbiology 08/29/22 Unknown Gram Stain - Final Bronchial Washings 08/26/22 15:03 Blood Culture - Preliminary Blood - Venous No growth after 48 hours. 08/26/22 15:03 Blood Culture - Preliminary Blood - Venous No growth after 48 hours. Assessment and Plan (1) Atrial fibrillation with rapid ventricular response: Status: Acute (2) Acute exacerbation of chronic obstructive pulmonary disease: Status: Acute Plan 67 year old man admitted with COPD exacerbation and afib rvr Acute on chronic respiratory failure secondary to COPD exacerbation and possible pneumonia Continue supplemental oxygen as needed Continue Rocephin and azithromycin Pulmonary consultation,s/p bronchoscopy 08/29 (had been scheduled as outpatient) Afib RVR with hx of paroxysmal atrial fibrillation now in SR given IV cardizem in the ED Continue Sotalol and coreg Eliquis placed on hold for bronch back pain secondary to Compression fracture lumbar spine showing L1 compression fracture, bone scan obtained shows compression fractures of T7 and T9 pain management recommend outpatient kyphoplasty HTN continue home medications Hx of HFrEF BNP 36 no obvious exacerbation Mental health continue home medications DVT prophylaxis - eliquis on hold, mechanical devices Attending Dr. Meade full code continue hospitalization for treatment of acute on chronic respiratory failure secondary to COPD exacerbation, back pain and atrial fibrillation Time Spent With Patient Time: Total time managing care of this patient today ____ minutes. Quality Stroke Does the patient have a stroke diagnosis?: No VTE Prior VTE?: No VTE Risk Level:: Medical - moderate - high VTE Device Contraindication: Treatment Not Indicated VTE Drug Contraindication: N/A - Med Ordered
[2022-08-29] MEDS: 0.9 % Sodium Chloride Flush 3 ML SYRINGE IVFLUSH ×2 (18:02→20:20)
[2022-08-29 20:09] LABS: Glucose, Whole Blood 139 mg/dL (60-115)
[2022-08-29] MEDS: Atorvastatin Calcium 10 MG TABLET PO (20:18)
[2022-08-29] MEDS: Sotalol HCL 80 MG TABLET PO (20:19)
[2022-08-29] MEDS: QUEtiapine Fumarate 300 MG TABLET PO (20:19)
[2022-08-29] MEDS: Valsartan 40 MG TABLET 20 MG PO (20:19)
[2022-08-29] MEDS: traZODone HCL 100 MG TABLET PO (20:19)
[2022-08-29] MEDS: Acetaminophen 325 MG TABLET 650 MG PO (20:24)
[2022-08-29] MEDS: ondansetron HCL 4 MG/2 ML VIAL IVPUSH (20:24)
[2022-08-30] MEDS: Latanoprost 0.005 % Ophth Sol 2.5 ML DROPS 1 DROP EYE-BOTH (00:07)
[2022-08-30 03:50] VITALS: BP 97/65; PULSE 65; RESP 15; TEMP 36.6; O2SAT 98
[2022-08-30] MEDS: methylPREDNISolone Sod Succ 40 MG/ML VIAL IVPUSH (05:38)
[2022-08-30 07:49] VITALS: BP 108/72; PULSE 66; RESP 20; TEMP 36.7; O2SAT 92
[2022-08-30 07:53] VITALS: PULSE 64; RESP 18; O2SAT 94
[2022-08-30] MEDS: Fluticasone/Vilanterol 100/25 BLST.W.DEV 1 PUFF INHALE (07:53)
[2022-08-30] MEDS: cefTRIAXone sodium 1 GM in 0.9 % Sodium Chloride 50 ML IV (09:33)
[2022-08-30] MEDS: Valsartan 40 MG TABLET 20 MG PO (09:34)
[2022-08-30] MEDS: 0.9 % Sodium Chloride Flush 3 ML SYRINGE IVFLUSH (09:34)
[2022-08-30] MEDS: Azithromycin 500 MG in 0.9 % Sodium Chloride 250 ML 125 MG IV (09:34)
[2022-08-30] MEDS: Sotalol HCL 80 MG TABLET PO (09:34)
--- NOTE | 2022-08-30 09:52 | HO.POSTANES ---
Post Anesthesia Evaluation Post Anesthesia Evaluation Vital Signs: Vital Signs Temp Pulse Resp BP Pulse Ox O2 Del Method O2 Flow Rate 08/30/22 07:49 98.1 F 66 20 108/72 92 Room Air 08/30/22 07:53 64 18 08/30/22 03:50 97.8 F 65 15 97/65 98 Nasal Cannula 2 08/29/22 23:54 98.3 F 78 15 98/60 92 Nasal Cannula 2 Anesthesia: General Mental Status: Awake Pain Control: Satisfactory Nausea/Vomiting: None Hydration: Adequate Anesthesia-Related Issues: No Anes. Related Issues
--- NOTE | 2022-08-30 10:32 | PM.DS ---
DS: Providers Provider Date of Service: 08/30/22 Date of admission: 08/26/22 15:03 Date of discharge: 08/30/22 Primary care physician: Rigoberto Madrigal MD Consults: 08/26/22 15:10 Consult to Pulmonology Routine Consulting Provider: [facility] [place] Pulmonology Services Reason for consultation: COPD, Emphysema Has provider been notified: No Attending physician on discharge: Joseph Lyles Discharging clinician: Abbie Herrera DS: Diagnosis Discharge Diagnosis (1) Atrial fibrillation with rapid ventricular response: Status: Acute (2) Acute exacerbation of chronic obstructive pulmonary disease: Status: Acute (3) Compression fracture of body of thoracic vertebra: Status: Acute DS: Summary Hospital Course Hospital Course: From H&P on day of admission 67-year-old male with past medical history significant for paroxysmal atrial fibrillation, nonischemic cardiomyopathy, COPD, hyperlipidemia presented with low back pain patient was seen in the emergency department last week for low back pain patient found to have L1 compression fracture was discharged home on oxycodone with no relief of his symptoms.? He also reports some shortness of breath at rest and with ambulation.? He does have history of COPD and emphysema, he is not on home oxygen.? He denies any recent travel. Patient also been coughing and shortness of breath with a dark sputum scheduled to see Dr. Sterling for bronchoscopy this week.? Patient is known to have COPD not using supplemental oxygen home.Denies chest pain, nausea, vomiting, diarrhea, recent illness, sick contacts, Oxygen sat 89% on ra, all other labs within acceptable limits, vital signs stable, CXR showing airspace opacity. He received albuterol, solumedrol and dilaudid in the ED. He will be placed on OBS for COPD exacerbation. Acute on chronic hypoxic respiratory failure secondary to COPD exacerbation and possible pneumonia She was treated with Rocephin and azithromycin, IV solu medrol and breathing treatments. She was seen by Pulmonary consultation, s/p bronchoscopy 08/29 (had been scheduled as outpatient). Final culture from bronchial washings pending at the time of discharge. Recommend outpatient follow-up with pulmonology. He was weaned off of oxygen and has been stable on room air. Afib RVR with hx of paroxysmal atrial fibrillation. given IV cardizem in the ED, converted to sinus rhythm. Continued on home Sotalol and coreg. Eliquis placed on hold for bronch and will be resumed on discharge. back pain secondary to Compression fracture. lumbar spine showing L1 compression fracture, bone scan obtained shows compression fractures of T7 and T9. Patient reports pain for some time and is interested in pursuing outpatient kyphoplasty. This was unable to be scheduled by inpatient provider and will need to be ordered by his PCP and improved by Medicare prior to scheduling as an outpatient. Time Spent with Patient Time attestation: Total time managing care of this patient today ____ minutes. Discharge coordination time: Greater than 30 minutes Quality: Safe Use of Opioids Does Pt have an Active Cancer Diagnosis on the Problem List?: No Quality: Stroke Does the patient have a stroke diagnosis?: No Physical Exam Vital Signs: Vital Signs: Last Vital Signs Temp 98.1 F 08/30/22 07:49 Pulse 64 08/30/22 07:53 Resp 18 08/30/22 07:53 BP 108/72 08/30/22 07:49 Pulse Ox 92 08/30/22 07:49 O2 Del Method 08/30/22 07:49 O2 Flow Rate 2 08/30/22 03:50 FiO2 45 08/29/22 09:44 BMI result Body Mass Index 28.5 Const: General: comfortable, no acute distress, alert and awake Nutritional Appearance: average body habitus Orientation/consciousness: patient oriented x3 Resp: Effort & Inspection: normal respiratory effort, able to speak in complete sentences and no respiratory distress Cardio: Rate: regular rate Heart sounds: S1 normal heart sound present and S2 normal heart sound present GI: Inspection: No distended Palpation (GI): Soft to palpation Neuro: General: patient oriented x3 Extrem: General: Yes no pedal edema DS: Data Data Completed and Pending Pending studies at discharge: Pending at discharge 08/29/22 09:01 Cytology [PTH] Stat 08/29/22 09:02 Cytology [PTH] Stat Labs on day of discharge: Laboratory Results - last 24 hr 08/29/22 20:06 POC Glucose 139 H Preliminary micro results at discharge 08/26/22 15:03 Blood Culture - Preliminary Blood - Venous No growth after 48 hours. 08/26/22 15:03 Blood Culture - Preliminary Blood - Venous No growth after 48 hours. Discharge Plan Discharge Anticipated Discharge Date/Time: 03/10/23 10:46 Patient Disposition: Home, Self-Care Discharge Diagnosis: copd exacerbation compression fracture Referrals: Rigoberto Madrigal MD [Primary Care Provider] - 1 Week Layton Sterling MD [Physician] - 2 Weeks Discharge Medications: New prednisone 20 mg tablet 40 mg PO DAILY 5 Days Qty: 10 0RF doxycycline hyclate 100 mg capsule 100 mg PO BID 3 Days Qty: 6 0RF cefuroxime axetil 500 mg tablet 500 mg PO BID 3 Days Qty: 6 0RF Continued Linzess 145 mcg capsule 145 mcg PO DAILY Qty: 60 4RF dexlansoprazole 60 mg capsule,biphase delayed releas 60 mg PO DAILY Qty: 90 1RF albuterol sulfate [Ventolin HFA] 90 mcg/actuation HFA aerosol inhaler 2 puff INHALATION Q6H PRN (Reason: wheezing) Trelegy Ellipta 200-62.5-25 mcg blister with device 1 inh PO DAILY Eliquis 5 mg tablet 5 mg PO BID Qty: 60 0RF sotalol 80 mg Tablet 80 mg PO BID Qty: 80 0RF valsartan 40 mg tablet 20 mg PO BID Qty: 60 0RF oxycodone 5 mg tablet 5 mg PO Q8H PRN (Reason: pain) Qty: 10 0RF Rx Instructions: Partial Fill upon patient request. quetiapine 300 mg tablet 300 mg PO BEDTIME simvastatin 20 mg tablet 20 mg PO BEDTIME latanoprost 0.005 % drops 1 drp ophthalmic (eye) BEDTIME famotidine [Pepcid] 40 mg tablet 40 mg PO BEDTIME PRN (Reason: heartburn) Qty: 30 6RF Discontinued gabapentin 300 mg capsule 600 mg PO BEDTIME PRN (Reason: Pain, Moderate) Discharge Orders: Discharge Order (Routine); Ordered 08/30/22 Ordered By: Abbie Herrera Activity on Discharge: As tolerated Stand Alone Forms: Patient Portal Discharge page Care Plan Goals: Resolution of respiratory symptoms Health Concerns: Acute COPD exacerbation compression fracture Plan of Treatment: Complete course of antibiotics and steroids as prescribed Call to schedule a appointment with pulmonology, Dr. Sterling's office as above to review results of broncoscopy To schedule an outpatient kyphoplasty for your compression fracture - needs to be discussed and ordered by PCP and approved by insurance. Assessment: See discharge summary
[2022-08-30 11:24] VITALS: BP 99/70; PULSE 73; RESP 20; TEMP 37.1; O2SAT 96
[2022-08-30 11:25] VITALS: PULSE 72; RESP 18; O2SAT 94
--- NOTE | 2022-08-30 11:49 | MHC.CM.PN ---
Addendum entered by Bebe Rubalcava 08/30/22 11:58: [facility] will resume home services. Original Note: IMM 08/30/22 DX AFIB RVR COPD S/P bronch. Patient is discharged to home self care. He has arranged for family to provide transportation home.
--- NOTE | 2022-09-11 12:53 | OP_ITS ---
SURGEON: Layton Sterling MD PREOPERATIVE DIAGNOSIS: POSTOPERATIVE DIAGNOSIS: PROCEDURE PERFORMED: Bronchoscopy with washings and brushings. ESTIMATED BLOOD LOSS: COMPLICATIONS: ANESTHESIA: LMA. ASSISTANTS: SPECIMENS: PREOPERATIVE DIAGNOSES: Pneumonia. POSTOPERATIVE DIAGNOSES: Pneumonia. DESCRIPTION OF PROCEDURE: After the patient was adequately sedated, a flexible digital bronchoscope was inserted by LMA to level of the vocal cords. Vocal cords moved symmetrically to the midline. After instilling lidocaine, the bronchoscope was then passed to vocal cords to the level of the trachea. After instilling additional lidocaine, the bronchoscope was then passed to the entire tracheobronchial tree, that was examined up to the subsegmental level. The patient did have evidence of chronic airway disease with evidence of diverticula from his evidence of smoking. No endobronchial lesions noted. No evidence of any active bleeding. No evidence of any foreign bodies. The bronchoscope was then navigated to the right middle lobe area and also the right lower lobe where washings and brushings were collected. The patient tolerated the procedure well. Vital signs were stable throughout the procedure. The bronchoscope was then removed. No apparent complications. [employer] INSTRUCTOR: None. MD MG Arnold/YOVANY / [id number]
== END 2022-08-30 15:00 | disposition home or self-care (01) | DRG 190 ==
LOC: HO.ED 14:15 → HO.EDOVER 15:22 → HO.IMC 16:04
PROVIDERS: Hospitalist; Admitting Provider Nurse Practitioner Acute Care; Emergency Provider Emergency Medicine; PCP Internal Medicine; Visit Provider Physician Assistant Medical
PROC: 0BJ08ZZ Inspection of Tracheobronchial Tree, Via Natural or Artificial Opening Endoscopic (ICD-10-PCS; CPT 31622; principal; 2022-08-29 08:30)
DX: J44.0 Chronic obstructive pulmonary disease with (acute) lower respiratory infection (principal); J18.9 Pneumonia, unspecified organism; J96.21 Acute and chronic respiratory failure with hypoxia; I50.22 Chronic systolic (congestive) heart failure; I42.8 Other cardiomyopathies; M48.56XA Collapsed vertebra, not elsewhere classified, lumbar region, initial encounter for fracture; J44.1 Chronic obstructive pulmonary disease with (acute) exacerbation; I11.0 Hypertensive heart disease with heart failure; Z20.822 Contact with and (suspected) exposure to COVID-19; Z87.891 Personal history of nicotine dependence; Z79.01 Long term (current) use of anticoagulants; Z79.899 Other long term (current) drug therapy
CPT/HCPCS: 0241U; 36415; 71045; 78306; 80048; 80053; 80076; 81001; 82947; 83605; 83690; 83880; 85025; 87040; 87070; 87205; 88112; 88305; 93005; 94640; 99285; A9503; J0171; J0456; J0696; J1956; J2270; J2405; J2920; J2930

== ENCOUNTER → 2022-09-12 10:11 | Outpatient (BNVA) | payer MEDICARE, MEDICAID, SELFPAY | PROVIDERS: PCP Internal Medicine; Visit Provider Hospitalist | DX: R91.8 Other nonspecific abnormal finding of lung field (principal); J43.2 Centrilobular emphysema; R06.00 Dyspnea, unspecified; S22.000D Wedge compression fracture of unspecified thoracic vertebra, subsequent encounter for fracture with routine healing | CPT/HCPCS: 99212 ==

== ENCOUNTER 2022-09-18 12:01 | Outpatient (REF) | payer MEDICARE, MEDICAID, SELFPAY ==
[2022-09-18 12:25] LABS: MANUAL DIFF FLAG NO
[2022-09-18 12:47] LABS: Basophils Percent Auto 0.5 % (0-2); Eosinophils Absolute Auto 0.4 X10*3/uL (0.0-0.4); Eosinophils Percent Auto 6.2 % (0-4); Hemoglobin 14.2 g/dl (14.0-18.0); Imm Gran Abs Auto 0.03 X10*3/uL (0.00-0.03); Imm Gran Pct Auto 0.5 % (0.0-0.4); Lymphocytes Absolute Auto 1.4 X10*3/uL (1.2-4.9); Mean Corpuscular Hemoglobin 29.7 pg (27.0-33.0); Monocytes Absolute Auto 0.4 X10*3/uL (0.1-1.2); Monocytes Percent Auto 7.5 % (2-11); Neutrophils Absolute Auto 3.6 x10*3/uL (2.0-8.3); Neutrophils Percent Auto 61.3 % (45-73); Platelet Count 226 X10*3/uL (160-400); Red Blood Count 4.78 X10*6/uL (4.60-5.80); White Blood Count 5.8 X10*3/uL (4.8-10.8)
[2022-09-18 13:12] LABS: INTERNATIONAL NORM RATIO 1.1 (0.9-1.1); Partial Thromboplastin Time 34.1 SEC (26.0-36.4); Prothrombin Time 12.5 SEC (10.0-13.1)
== END 2022-09-18 12:02 | disposition home or self-care (01) ==
LOC: HO.LAB 12:01
PROVIDERS: PCP Internal Medicine; Visit Provider Hospitalist
DX: S22.000A Wedge compression fracture of unspecified thoracic vertebra, initial encounter for closed fracture (principal)
CPT/HCPCS: 36415; 85025; 85610; 85611; 85730; 85732

== ENCOUNTER 2022-09-20 10:26 | Day surgery (SDC) | payer MEDICARE, MEDICAID, SELFPAY ==
--- NOTE | 2022-09-19 13:21 | HO.ANESPROP2 ---
HPI - Anesthesia Eval Consult details Narrative: 67yo M for Kyphoplasty Eliquis for afib [facility] [place]08[place]30[place]22 for afib with rvr (converted to SR with IV cardizem in ED), COPD exac with possible pna (antibiotics and fiber bronch 08/29/22 with GA-LMA) PMFSH Active Problems Active Problems: All Active Problems (Updated 09/07/22 @ 00:02 by Background Daemon) Pneumonia (Acute) Atrial fibrillation with rapid ventricular response (Acute) Acute exacerbation of chronic obstructive pulmonary disease (Acute) Pneumonia (Acute) Compression fracture of body of thoracic vertebra (Acute) Peptic ulcer disease (Acute) Glaucoma (Acute) Rectal prolapse (Acute) Abdominal bloating (Acute) Hemorrhoids (Acute) Smoker (Acute) Systolic dysfunction (Acute) Arthritis of both elbows (Acute) Erosive esophagitis (Acute) Dysphagia (Acute) Chronic heart failure (Acute) Hematemesis with nausea (Acute) Small bowel motility disorder (Acute) Chronic idiopathic constipation (Acute) COVID-19 (Acute) Right clavicle fracture (Acute) Pulmonary nodule (Acute) Compression fracture of T9 vertebra (Acute) Tubular adenoma of colon (Acute) Dyspnea (Acute) Personal history of nicotine dependence (Acute) COPD (chronic obstructive pulmonary disease) (Acute) Past Medical History Medical History (Updated 09/07/22 @ 00:02 by Background Daemon) CHF exacerbation Compression fracture of body of thoracic vertebra Compression fracture of thoracic spine, non-traumatic Constipation COPD (chronic obstructive pulmonary disease) Depression Dyspnea GERD (gastroesophageal reflux disease) History of alcohol abuse Hyperlipidemia Hypertension Nonischemic cardiomyopathy Personal history of nicotine dependence Pneumonia Pneumonia Pulmonary nodules Tubular adenoma of colon Family History Family History Mother Renal failure Father History of depression Brother Colon cancer Surgical History Surgical History History of appendectomy History of gastric surgery History of surgery on left wrist (~03/21/10) Hx of cataract surgery (~07/02/10) Hx of colonoscopy (~02/13/06) Hx of endoscopy Social History Social History Household Members: None Housing: Apartment Are you a primary career education teacher to a significant other at home: No Do you presently have visiting nurse or other home services: No Alcohol intake: former Patient Tobacco Use Status: Former Tobacco user Quit Date: 2021 Tobacco use type: Cigarette Cigarette Packs Per Day: 0.5 Years Smoked: 55 e-Cigarette/Vaping Use: Never Used Second Hand Smoke Exposure: No service: No Current occupational status: unemployed Meds Allergies Allergy/AdvReac Type Severity Reaction Status Date / Time No Known Allergies Allergy Verified 09/12/22 10:22 [No Known Allergies*] Home Medications Medication Instructions Recorded Confirmed Last Taken Type latanoprost 0.005 % eye drops 1 drp ophthalmic (eye) BEDTIME 03/27/20 08/26/22 09/19/22 History quetiapine 300 mg tablet 300 mg PO BEDTIME 03/27/20 08/26/22 09/19/22 History simvastatin 20 mg tablet 20 mg PO BEDTIME 03/27/20 08/26/22 09/19/22 History fluticasone fur. 200 mcg-umeclid 1 inh PO DAILY 08/26/22 08/26/22 09/19/22 History 62.5 mcg-vilant 25 mcg inhalat.powder (Trelegy Ellipta) gabapentin 300 mg capsule mg PO 09/12/22 09/19/22 History carvedilol 25 mg tablet 25 mg PO BID 09/20/22 09/20/22 09/19/22 History Exam Exam Date and Time: September 19, 2022 1321 Pertinent Lab Results Pertinent Lab Results: Laboratory Tests 08/29/22 09/18/22 05:58 12:22 WBC 5.8 Hgb 14.2 D Hct 43.0 Plt Count 226 D Sodium 140 Potassium 4.7 Chloride 108 Carbon Dioxide 24 BUN 29 H Creatinine 0.75 Narrative Narrative: EKG 08/26/22 (prior to conversion to SR) Vent. Rate : 146 BPM ? ? Atrial Rate : 366 BPM ?? P-R Int : 000 ms? QRS Dur : 074 ms ? ? QT Int : 224 ms ? ? ? P-R-T Axes : 000 050 218 degrees ?? QTc Int : 349 ms ? Atrial flutter with variable A-V block Nonspecific ST and T wave abnormality Abnormal ECG When compared with ECG of 05-JUL-2022 13:20, Atrial flutter has replaced Sinus rhythm Vent. rate has increased BY? 62 BPM ECHO 05/2022 Conclusions: - 1. Mildly reduced LV systolic function with LVEF of 45-50% ? ? 2. Normal cardiac valvular Doppler ? 3. Normal RV systolic pressure ? 4. At least mildly dilated ascending aorta at 4.3 cm ? 5. No gross pericardial effusion ? Assessment and Plan Assessment Anesthesia Assessment: Chart Reviewed
[2022-09-20] VITALS (11 sets, daily range): BP systolic 93–120; BP diastolic 69–86; PULSE 73–90; RESP 15–20; TEMP 36.3–36.6; O2SAT 96–98; BMI 25.1
--- NOTE | ~2022-09-20 | IR_ITS ---
EXAMINATION: IR THORACIC VERTEBROPLASTY CLINICAL INFORMATION: Acute T7 and T9 compression fractures secondary to osteoporosis. A new L1 compression fracture seen on today's pre-kyphoplasty CT. COMPARISON: None available. TECHNIQUE: Following explaining fluoroscopy guided T7 and T9 kyphoplasty procedure, benefits and risks, with a hand meat salter, a written consent was obtained in front of the automobile drivers. A pre-kyphoplasty CT was obtained through the thoracic spine for planning. Patient was placed prone and the thoracic spine was cleaned and draped in usual sterile manner after identifying T7 and T9 vertebral fractures, which were marked on the skin. 1% lidocaine was injected overlying the T7 right pedicle. A 20-gauge spinal needle was then inserted from the skin to the periosteum of the right pedicle and 0.25% Sensorcaine injected. Through a small skin incision a 10 [place] Kyphon needle was inserted from the skin incision to the level of periosteum and through the pedicle into posterior one-third of right T7 vertebra. A second needle was inserted in similar fashion through the left pedicle followed by third and fourth needles to the right and left pedicles of T9 vertebra. A mechanical drill was inserted and tract was created at all 4 positions. Subsequently high tensile balloons were inserted and inflated to 200 PSI for 4 minutes. The balloons were deflated and removed and freshly prepared polymethyl methacrylate was injected through both needles at the T7 and T9 vertebra. After achieving adequate amount of cement filling, the needles were withdrawn approximately 10 minutes later at both the vertebral levels. Fluoroscopy was utilized during the entire exam. Final images were obtained after the exam. Complete hemostasis was achieved at puncture site. Sterile dressing placed postprocedure. Sedation was provided by Anesthesia Department. FINDINGS: On preliminary images there are compression fractures of T7 and T9 vertebrae without any major posterior bony protrusion into spinal canal. There is adequate amount of cement seen occupying the T7 and T9 vertebrae with no extravasation seen at this time. Patient tolerated the procedure extremely well. FLUOROSCOPY TIME: 14 minutes DOSE AREA PRODUCT: 3357 uGy-m2 (microgray-meter squared) IR/IR kyphoplasty each add IMPRESSION: Successful fluoroscopy-guided T7 and T9 kyphoplasty performed.
--- NOTE | ~2022-09-20 | CT_ITS ---
EXAMINATION: CT THORACIC SPINE CLINICAL INFORMATION: T7 and T9 compression fracture. COMPARISON: None available. TECHNIQUE: Axial 2 mm thin and reformatted sagittal and coronal images from mid T5 through inferior endplate of T11 vertebrae was obtained without contrast. This CT examination was performed using dose optimization techniques as appropriate, variously including the following: *Automated exposure control *Adjustment of mA and/or kV according to patient size (this includes techniques or standardized protocols for targeted exams where dose is matched to indication/reason for exam; i.e. extremities or head) *Use of iterative reconstruction technique DLP: 488 mGy-cm FINDINGS: On sagittal reconstructed images, there is maintained thoracic kyphosis. There are known compression fractures of the T7 and T9 vertebrae with cement augmentation. There is no extravasation of cement seen at either levels. Mild posterior bulging of the posterior margin of the T9 vertebra is unchanged to the pre-vertebroplasty CT. The rest of the vertebral heights, alignment and the disc heights are normal. There is a new L1 compression fracture as visualized on the pre-kyphoplasty CT. CT/CT thoracic spine post vert IMPRESSION: Cement augmentation of the T7 and T9 vertebrae without cement extravasation. Fleischner guidelines were followed.
--- NOTE | ~2022-09-20 | CT_ITS ---
EXAMINATION: CT THORACIC SPINE WITHOUT CONTRAST CLINICAL INFORMATION: T7 and T9 compression fractures. 3 mm thin sagittal coronal images of thoracic spine were obtained from T1 through mid L1 vertebra. Kyphoplasty evaluation. Osteoporosis COMPARISON: Bone scan 08/28/2022. TECHNIQUE: 2 mm thin axial and reformatted 2 millimeter thin sagittal and coronal images of dorsal spine were obtained without contrast. This CT examination was performed using dose optimization techniques as appropriate, variously including the following: *Automated exposure control *Adjustment of mA and/or kV according to patient size (this includes techniques or standardized protocols for targeted exams where dose is matched to indication/reason for exam; i.e. extremities or head) *Use of iterative reconstruction technique DLP: 1244 mGy-cm FINDINGS: There is normal thoracic kyphosis. The vertebral heights, alignment and disc heights are normal. There is loss of T7, T9 and now L1 vertebral height which is new. The T7 and T9 vertebral fractures are visualized on the previous bone scan. Rest of the vertebral heights, alignment and disc heights are normal. There is severe loss of bone density likely from osteoporosis and hence new L1 fracture. The disc heights are maintained normal with vacuum disc phenomena at the T9-T10 disc level. The spinal canal is capacious throughout the dorsal spine with no evidence of disc bulge, herniation or spinal stenosis. The neural foramina are patent bilaterally. The paravertebral soft tissues are normal. There is diffuse centrilobular emphysema. CT/CT thoracic spine wo IV con IMPRESSION: T7 and T9 compression fracture compatible with recent bone scan finding. There is a new L1 compression fracture since the last bone scan. Further evaluation and treatment with CT of the lumbar spine should be performed. Fleischner guidelines were followed.
--- NOTE | ~2022-09-20 | IR_ITS ---
EXAMINATION: IR THORACIC VERTEBROPLASTY CLINICAL INFORMATION: Acute T7 and T9 compression fractures secondary to osteoporosis. A new L1 compression fracture seen on today's pre-kyphoplasty CT. COMPARISON: None available. TECHNIQUE: Following explaining fluoroscopy guided T7 and T9 kyphoplasty procedure, benefits and risks, with a green building materials distributor, a written consent was obtained in front of the forest fire prevention manager. A pre-kyphoplasty CT was obtained through the thoracic spine for planning. Patient was placed prone and the thoracic spine was cleaned and draped in usual sterile manner after identifying T7 and T9 vertebral fractures, which were marked on the skin. 1% lidocaine was injected overlying the T7 right pedicle. A 20-gauge spinal needle was then inserted from the skin to the periosteum of the right pedicle and 0.25% Sensorcaine injected. Through a small skin incision a 10 [place] Kyphon needle was inserted from the skin incision to the level of periosteum and through the pedicle into posterior one-third of right T7 vertebra. A second needle was inserted in similar fashion through the left pedicle followed by third and fourth needles to the right and left pedicles of T9 vertebra. A mechanical drill was inserted and tract was created at all 4 positions. Subsequently high tensile balloons were inserted and inflated to 200 PSI for 4 minutes. The balloons were deflated and removed and freshly prepared polymethyl methacrylate was injected through both needles at the T7 and T9 vertebra. After achieving adequate amount of cement filling, the needles were withdrawn approximately 10 minutes later at both the vertebral levels. Fluoroscopy was utilized during the entire exam. Final images were obtained after the exam. Complete hemostasis was achieved at puncture site. Sterile dressing placed postprocedure. Sedation was provided by Anesthesia Department. FINDINGS: On preliminary images there are compression fractures of T7 and T9 vertebrae without any major posterior bony protrusion into spinal canal. There is adequate amount of cement seen occupying the T7 and T9 vertebrae with no extravasation seen at this time. Patient tolerated the procedure extremely well. FLUOROSCOPY TIME: 14 minutes DOSE AREA PRODUCT: 3357 uGy-m2 (microgray-meter squared) IR/IR kyphoplasty thoracic IMPRESSION: Successful fluoroscopy-guided T7 and T9 kyphoplasty performed.
[2022-09-20 12:00] LABS: Glucose, Whole Blood 106 mg/dL (60-115)
[2022-09-20] MEDS: Lactated Ringers 1,000 ML 50 ML IVCONT (12:12)
[2022-09-20 12:14] LABS: MANUAL DIFF FLAG NO
[2022-09-20 12:20] LABS: Basophils Percent Auto 0.3 % (0-2); Eosinophils Absolute Auto 0.5 X10*3/uL (0.0-0.4); Eosinophils Percent Auto 9.1 % (0-4); Hematocrit 40.2 % (42.0-52.0); Hemoglobin 13.1 g/dl (14.0-18.0); Imm Gran Abs Auto 0.02 X10*3/uL (0.00-0.03); Imm Gran Pct Auto 0.3 % (0.0-0.4); Lymphocytes Absolute Auto 1.1 X10*3/uL (1.2-4.9); Lymphocytes Percent Auto 19.6 % (20-40); Mean Corpuscular HGB Conc 32.6 g/dl (31.0-36.0); Mean Corpuscular Hemoglobin 29.3 pg (27.0-33.0); Mean Corpuscular Volume 89.9 fL (80.0-98.0); Mean Platelet Volume 9.7 fL (9.4-12.4); Monocytes Absolute Auto 0.5 X10*3/uL (0.1-1.2); Monocytes Percent Auto 8.9 % (2-11); Neutrophils Absolute Auto 3.6 x10*3/uL (2.0-8.3); Neutrophils Percent Auto 61.8 % (45-73); Platelet Count 174 X10*3/uL (160-400); Red Blood Count 4.47 X10*6/uL (4.60-5.80); Red Cell Distribution Width 13.1 % (11.0-16.0); White Blood Count 5.8 X10*3/uL (4.8-10.8)
--- NOTE | 2022-09-20 12:20 | P.CONAN_ITS ---
[facility] Active Problems Active Problems: All Active Problems (Updated 09/07/22 @ 00:02 by Background Daemon) Pneumonia (Acute) Atrial fibrillation with rapid ventricular response (Acute) Acute exacerbation of chronic obstructive pulmonary disease (Acute) Pneumonia (Acute) Compression fracture of body of thoracic vertebra (Acute) Peptic ulcer disease (Acute) Glaucoma (Acute) Rectal prolapse (Acute) Abdominal bloating (Acute) Hemorrhoids (Acute) Smoker (Acute) Systolic dysfunction (Acute) Arthritis of both elbows (Acute) Erosive esophagitis (Acute) Dysphagia (Acute) Chronic heart failure (Acute) Hematemesis with nausea (Acute) Small bowel motility disorder (Acute) Chronic idiopathic constipation (Acute) COVID-19 (Acute) Right clavicle fracture (Acute) Pulmonary nodule (Acute) Compression fracture of T9 vertebra (Acute) Tubular adenoma of colon (Acute) Dyspnea (Acute) Personal history of nicotine dependence (Acute) COPD (chronic obstructive pulmonary disease) (Acute) Past Medical History Medical History (Updated 09/07/22 @ 00:02 by Background Daemon) CHF exacerbation Compression fracture of body of thoracic vertebra Compression fracture of thoracic spine, non-traumatic Constipation COPD (chronic obstructive pulmonary disease) Depression Dyspnea GERD (gastroesophageal reflux disease) History of alcohol abuse Hyperlipidemia Hypertension Nonischemic cardiomyopathy Personal history of nicotine dependence Pneumonia Pneumonia Pulmonary nodules Tubular adenoma of colon Family History Family History Mother Renal failure Father History of depression Brother Colon cancer Family history of problems with anesthesia: No Surgical History Surgical History History of appendectomy History of gastric surgery History of surgery on left wrist (~03/21/10) Hx of cataract surgery (~07/02/10) Hx of colonoscopy (~02/13/06) Hx of endoscopy History of Problems with Anesthesia: No Social History Social History Household Members: None Housing: Apartment Are you a primary physician locums urgent care to a significant other at home: No Do you presently have visiting nurse or other home services: No Alcohol intake: former Patient Tobacco Use Status: Former Tobacco user Quit Date: 2021 Tobacco use type: Cigarette Cigarette Packs Per Day: 0.5 Years Smoked: 55 e-Cigarette/Vaping Use: Never Used Second Hand Smoke Exposure: No Are you DNR?: No Advance Directives: No Advance Directives Information Provided: Yes service: No Current occupational status: unemployed Meds Allergies Allergy/AdvReac Type Severity Reaction Status Date / Time No Known Allergies Allergy Verified 09/12/22 10:22 [No Known Allergies*] Active Medications: Current Medications Albuterol Sulfate (Albuterol Sulfate (0.083%) 2.5 Mg/3 Ml Vial.Neb) 2.5 mg INHALE ONCE PRN PRN Reason: Shortness of Breath/Wheezing Lactated Ringer's (Lr) 1,000 mls @ 50 mls/hr IVCONT .Q20H YESSENIA Last Admin: 09/20/22 12:12 Dose: 50 mls/hr Home Medications Medication Instructions Recorded Confirmed Last Taken Type latanoprost 0.005 % eye drops 1 drp ophthalmic (eye) BEDTIME 03/27/20 08/26/22 09/19/22 History quetiapine 300 mg tablet 300 mg PO BEDTIME 03/27/20 08/26/22 09/19/22 History simvastatin 20 mg tablet 20 mg PO BEDTIME 03/27/20 08/26/22 09/19/22 History albuterol sulfate 90 mcg/actuation 2 puff inhalation Q6H PRN wheezing 08/26/22 08/26/22 09/19/22 History aerosol inhaler (Ventolin HFA) fluticasone fur. 200 mcg-umeclid 1 inh PO DAILY 08/26/22 08/26/22 09/19/22 History 62.5 mcg-vilant 25 mcg inhalat.powder (Trelegy Ellipta) gabapentin 300 mg capsule mg PO 09/12/22 09/19/22 History carvedilol 25 mg tablet 25 mg PO BID 09/20/22 09/20/22 09/19/22 History Exam Exam Date and Time: September 20, 2022 1220 Height,Weight and Vital Signs: Height 5 ft 11 in Weight 81.647 kg Last Vital Signs Temp 98 F 09/20/22 11:38 Pulse 90 09/20/22 11:38 Resp 20 09/20/22 11:38 BP 120/86 09/20/22 11:38 Pulse Ox 97 09/20/22 11:38 O2 Del Method Room Air 09/20/22 11:38 Pertinent Lab Results Pertinent Lab Results: Laboratory Tests 09/20/22 11:50 POC Glucose 106 Airway Mallampati Class: II TM Dist: >3cm Neck ROM: Full Denture: Upper and Lower Heart: rrr Lungs: cta Assessment and Plan Assessment Anesthesia Assessment: Anesthesia Plan Discussed and Chart Reviewed Final Anesthetic Review Family History of Problems with Anesthesia: No History of Problems with Anesthesia: No NPO: Yes ASA Class: III Final Preanesthetic Review: No Changes in Pt Med Stat, Meds/Allgs Chart Reviewed and Consent Obtained/Reviewed Patient Risk: Intermediate Procedure Risk: Intermediate Anesthetic Plan Anesthetic Plan: MAC: Disposition: Standard PACU
[2022-09-20 12:22] LABS: INTERNATIONAL NORM RATIO 1.1 (0.9-1.1); Prothrombin Time 12.1 SEC (10.0-13.1)
[2022-09-20 12:25] LABS: Partial Thromboplastin Time 31.3 SEC (26.0-36.4)
[2022-09-20] MEDS: Acetaminophen 325 MG TABLET 650 MG PO (17:29)
== END 2022-09-20 18:15 | disposition home or self-care (01) ==
PROVIDERS: Radiology Diagnostic Radiology; PCP Internal Medicine; Visit Provider Hospitalist
DX: S22.060A Wedge compression fracture of T7-T8 vertebra, initial encounter for closed fracture (principal); S22.070A Wedge compression fracture of T9-T10 vertebra, initial encounter for closed fracture; M81.0 Age-related osteoporosis without current pathological fracture; I48.91 Unspecified atrial fibrillation; J44.9 Chronic obstructive pulmonary disease, unspecified; J18.9 Pneumonia, unspecified organism; R91.1 Solitary pulmonary nodule; R14.0 Abdominal distension (gaseous); I11.0 Hypertensive heart disease with heart failure; I50.20 Unspecified systolic (congestive) heart failure; Z79.01 Long term (current) use of anticoagulants; Z79.51 Long term (current) use of inhaled steroids; Z79.899 Other long term (current) drug therapy; Z87.891 Personal history of nicotine dependence
CPT/HCPCS: 22513; 22515; 36415; 72128; 82947; 85025; 85610; 85730; J0690; J2250; J3010; Q9967

== ENCOUNTER 2022-09-26 12:55 | Outpatient (REF) | payer MEDICARE, MEDICAID, SELFPAY ==
--- NOTE | ~2022-09-26 | MM_ITS ---
EXAMINATION: BONE DENSITOMETRY CLINICAL INDICATION: Long-term inhaled steroids. COMPARISON: None (current study represents initial baseline exam). CT thoracic spine 09/20/2022 TECHNIQUE: Using a [employer] DXA System (software version: 13.1) manufactured by [employer], dual-energy x-ray absorptiometry was performed of the lumbar spine and left hip. The images are of good technical quality. Summary results are attached. FINDINGS: AP SPINE L1-L4: BMD 0.862 g/cm2, Z-score -2.6, T-score -3.0, osteoporosis. LEFT FEMUR, NECK: BMD 0.737 g/cm2, Z-score -1.5, T-score -2.6, osteoporosis. LEFT FEMUR, TOTAL: BMD 0.804 g/cm2, Z-score -1.5, T-score -2.1, osteopenia. IDENTIFIED RISK FACTORS: Low calcium intake, history of fracture (adult). HISTORY OF FRACTURE: Thoracic spine status post vertebral augmentation T7 and T9. Clavicle. MEDICATIONS: Calcium, vitamin D. MM/XR DEXA axial skeleton IMPRESSION: 1. DIAGNOSIS: Osteoporosis based on the lowest T-score value of -3.0 in the lumbar spine applying World Health Organization criteria. 2. 10-YEAR FRACTURE RISK PREDICTION, FRAX: According to the guidelines, FRAX calculation should only be performed on patients in the osteopenia bone density category. Therefore, FRAX was not performed on this patient. 3. Treatment Recommendations: NOF guidelines recommend consideration for treatment in postmenopausal women and men age 50 and older presenting with the following: -A hip or vertebral (clinical or morphometric) fracture. -T-score less than or equal to -2.5 at the femoral neck or spine after appropriate evaluation to exclude secondary causes. -Low bone mass at the hip or spine and a 10-year fracture probability by FRAX of greater than or equal to 3% for hip fracture or greater than or equal to 20% for major osteoporotic fracture based on the [place] adapted WHO algorithm. 4. Other Recommendations: All treatment decisions require clinical judgment and consideration of individual patient factors, including patient preferences, comorbidities, previous drug use, risk factors not captured in the FRAX model (e.g. frailty, falls, vitamin D deficiency, increased bone turnover, interval significant decline in bone density) and possible under or overestimation of fracture risk by FRAX. Additional medical evaluation for secondary cause of low bone mineral density may be appropriate. FUTURE SCAN RECOMMENDATION: People with diagnosed cases of osteoporosis or at high risk for fracture should have regular bone mineral density tests. For patients eligible for Medicare, routine testing is allowed once every 2 years. The testing frequency can be increased to one year for patients who have rapidly progressing disease, those who are receiving or discontinuing medical therapy to restore bone mass, or have additional risk factors.
== END 2022-09-26 12:56 | disposition home or self-care (01) ==
LOC: HO.MAMMO 12:55
PROVIDERS: PCP Internal Medicine; Visit Provider Internal Medicine
DX: Z13.820 Encounter for screening for osteoporosis (principal); S32.010D Wedge compression fracture of first lumbar vertebra, subsequent encounter for fracture with routine healing; S22.060D Wedge compression fracture of T7-T8 vertebra, subsequent encounter for fracture with routine healing; M80.08XG Age-related osteoporosis with current pathological fracture, vertebra(e), subsequent encounter for fracture with delayed healing; Z79.51 Long term (current) use of inhaled steroids
CPT/HCPCS: 77080

== ENCOUNTER → 2022-10-21 10:51 | Outpatient (BNVA) | payer MEDICARE, MEDICAID, SELFPAY | PROVIDERS: PCP Internal Medicine; Visit Provider Internal Medicine | DX: M51.37 Other intervertebral disc degeneration, lumbosacral region (principal) | CPT/HCPCS: 99202 ==

== ENCOUNTER → 2022-10-29 16:18 | Outpatient (BNVA) | payer MEDICARE, MEDICAID, SELFPAY | PROVIDERS: PCP Internal Medicine; Visit Provider Internal Medicine Endocrinology, Diabetes & Metabolism | DX: M81.0 Age-related osteoporosis without current pathological fracture (principal) | CPT/HCPCS: 99202 ==

== ENCOUNTER 2022-10-31 10:05 | Outpatient (REF) | payer MEDICARE, MEDICAID, SELFPAY ==
[2022-10-31 12:05] LABS: Vitamin D 25-OH Total 37.1 ng/mL (>30)
== END 2022-10-31 10:06 | disposition home or self-care (01) ==
LOC: HO.LAB 10:05
PROVIDERS: PCP Internal Medicine; Visit Provider Internal Medicine Endocrinology, Diabetes & Metabolism
DX: M81.0 Age-related osteoporosis without current pathological fracture (principal)
CPT/HCPCS: 82306; 86335

== ENCOUNTER → 2022-11-08 14:54 | Outpatient (BNVA) | payer MEDICARE, MEDICAID, SELFPAY | PROVIDERS: PCP Internal Medicine; Visit Provider Urology | DX: R31.29 Other microscopic hematuria (principal); Z12.5 Encounter for screening for malignant neoplasm of prostate; Z79.02 Long term (current) use of antithrombotics/antiplatelets | CPT/HCPCS: 51798; 99202 ==

== ENCOUNTER 2022-11-13 05:59 | Inpatient (IN) | payer MEDICARE, MEDICAID, SELFPAY ==
[2022-11-13] VITALS (9 sets, daily range): BP systolic 90–125; BP diastolic 61–79; PULSE 80–125; RESP 17–29; TEMP 36.3–37.2; O2SAT 87–97; BMI 32.3
--- NOTE | 2022-11-13 | ECG_ITS ---
Test Reason : DIFFICULTY BREATHING Blood Pressure : / mmHG Vent. Rate : 126 BPM Atrial Rate : 126 BPM P-R Int : 136 ms QRS Dur : 076 ms QT Int : 316 ms P-R-T Axes : 030 024 071 degrees QTc Int : 457 ms Sinus tachycardia Nonspecific ST abnormality Abnormal ECG When compared with ECG of 26-AUG-2022 14:34, Sinus rhythm has replaced Atrial flutter T wave inversion no longer evident in Anterolateral leads Referred By: Generic ED Physician Electronically Signed By:KING JAMES
--- NOTE | ~2022-11-13 | XR_ITS ---
EXAMINATION: XR CHEST CLINICAL INFORMATION: Shortness of breath COMPARISON: 08/26/2022 TECHNIQUE: Frontal view of the chest was obtained. FINDINGS: Right lower lung patchy airspace opacities. Background emphysema and bronchiectatic changes. No pleural effusion or pneumothorax. Normal heart size and pulmonary vascularity. XR/XR chest 1V IMPRESSION: * Right lower lung infiltrate * Emphysema and bronchiectatic changes.
--- NOTE | 2022-11-13 06:32 | PC.NURSE ---
Pt A&O to self, situation and place, short word speaking, reports waking up this AM with SOB. Pt tachypneic, o2 sat 86% on RA, placed on oxymask on 6L sat 91%, lung sounds diminished to right side. Pt tachy on bedside monitor, EKG obtained and reviewed by Dr. Thomas. Lab work obtained and sent to lab.
[2022-11-13 06:37] LABS: MANUAL DIFF FLAG NO
[2022-11-13 06:40] LABS: Basophils Percent Auto 0.3 % (0-2); Eosinophils Percent Auto 0.3 % (0-4); Hemoglobin 12.9 g/dl (14.0-18.0); Lymphocytes Absolute Auto 0.3 X10*3/uL (1.2-4.9); Lymphocytes Percent Auto 11.1 % (20-40); Mean Corpuscular HGB Conc 32.3 g/dl (31.0-36.0); Mean Corpuscular Hemoglobin 27.3 pg (27.0-33.0); Mean Corpuscular Volume 84.6 fL (80.0-98.0); Mean Platelet Volume 9.9 fL (9.4-12.4); Monocytes Absolute Auto 0.1 X10*3/uL (0.1-1.2); Neutrophils Absolute Auto 2.6 x10*3/uL (2.0-8.3); Neutrophils Percent Auto 85.3 % (45-73); Platelet Count 146 X10*3/uL (160-400); Red Blood Count 4.73 X10*6/uL (4.60-5.80); Red Cell Distribution Width 13.2 % (11.0-16.0); White Blood Count 3.1 X10*3/uL (4.8-10.8)
[2022-11-13 06:54] LABS: Alanine Aminotransferase 17 U/L (0-40); Albumin Level 3.7 g/dL (3.5-5.0); Alkaline Phosphatase 89 U/L (39-117); Anion Gap 13 (12-20); Aspartate Amino Transferase 15 U/L (5-37); Bilirubin Total 1.3 mg/dL (0.0-1.0); Blood Urea Nitrogen 18 mg/dL (9-16); Calcium 8.7 mg/dL (8.4-10.2); Carbon Dioxide 22 mmol/L (22-29); Chloride 110 mmol/L (96-108); Creatinine Clr Calc Pharmacy 70.3; Estimated Glomerular Filt Rate > 60; Glucose Random 119 mg/dL (60-115); Sodium 141 mmol/L (135-145); Total Protein 6.6 g/dL (6.5-8.0)
[2022-11-13 07:00] LABS: B Type Natriuretic Peptide 23 pg/mL (<100)
[2022-11-13 07:01] LABS: Troponin-I High Sensitivity < 2.7 ng/L (<3.5-35.0)
[2022-11-13 07:06] LABS: Influenza A PCR NEGATIVE (Negative); Influenza B PCR NEGATIVE (Negative); Resp Syncy Virus RNA Qual PCR NEGATIVE (Negative); SARS COV2 PCR INHOUSE NEGATIVE (Negative)
--- NOTE | 2022-11-13 07:10 | PC.NURSE ---
Alert and oriented. Lungs sounds clear but diminished bilaterally. Complains of 6/10 chronic back pain, no sob noted, sating 92% on 6 liters via oxy mask.
[2022-11-13] MEDS: levalbuterol HCL 1.25 MG/3 ML VIAL.NEB INHALE (07:16)
[2022-11-13] MEDS: methylPREDNISolone Sod Succ 40 MG/ML VIAL IVPUSH (07:21)
--- NOTE | 2022-11-13 07:25 | ED.SOB ---
HPI - SOB/Dyspnea General Chief Complaint: Dyspnea Stated Complaint: SOB,87% RA,COUGH PER EMS Time Seen by Provider: 11/13/22 06:29 Source: patient, RN notes reviewed, old records reviewed and estate planning paralegal Mode of arrival: EMS Limitations: language barrier History of Present Illness HPI Narrative: This is a 67-year-old czech speaking male, with a past medical history of paroxysmal atrial fibrillation on Eliquis, nonischemic cardiomyopathy, COPD and emphysema not on home O2, hyperlipidemia, who presents to the emergency department with complaints of worsening shortness of breath since 3:00AM this morning. Patient states that he woke up in the middle of the night and felt as though he could not breathe. He tried using his inhalers at home without any relief. He states that over the last several days he has noticed increased work of breathing with associated productive cough. He states that he has had no chest pain. Reports come chills, no fevers. Admits to having a productive cough. No abdominal pain, nausea, vomiting, diarrhea, bloody or black stool. MD elicited complaint: shortness of breath and cough Pertinent past history: COPD and congestive heart failure Timing: progressively worsening Severity: moderate Exacerbating factors: lying flat and coughing Relieving factors: oxygen and rest Known history of: COPD, congestive heart failure and recurrent pneumonia Related Data Home oxygen amount: none Home Medications Medication Instructions Recorded Confirmed latanoprost 0.005 % eye drops 1 drp ophthalmic (eye) BEDTIME 03/27/20 11/08/22 quetiapine 300 mg tablet 300 mg PO BEDTIME 03/27/20 11/08/22 simvastatin 20 mg tablet 20 mg PO BEDTIME 03/27/20 11/08/22 fluticasone fur. 200 mcg-umeclid 1 inh PO DAILY 08/26/22 11/08/22 62.5 mcg-vilant 25 mcg inhalat.powder (Trelegy Ellipta) metoclopramide HCl 10 mg tablet 10 mg PO 10/21/22 11/08/22 trazodone 100 mg tablet 200 mg PO BEDTIME PRN 10/21/22 11/08/22 calcium carbonate 600 mg-vitamin 1 tab PO BID 10/29/22 11/08/22 D3 20 mcg (800 unit) tablet Previous Rx's Medication Instructions Recorded apixaban 5 mg tablet (Eliquis) 5 mg PO BID #60 tabs 11/14/22 sotalol 80 mg tablet 80 mg PO BID #80 tabs 06/01/22 valsartan 40 mg tablet 20 mg PO BID #60 tabs 06/01/22 albuterol sulfate 90 mcg/actuation 2 puff inhalation Q6H PRN wheezing 09/26/22 aerosol inhaler (Ventolin HFA) 30 days #8.5 grams dexlansoprazole 60 mg 60 mg PO DAILY #90 caps 10/29/22 capsule,biphase delayed release peg 3350-electrolytes 236 240 ml PO Q10M #4,000 mL 10/30/22 gram-22.74 gram-6.74 gram-5.86 gram solution abaloparatide (Tymlos) 80 mcg (0.04 mL) subcut DAILY 11/04/22 #1.56 mL Allergies Allergy/AdvReac Type Severity Reaction Status Date / Time No Known Allergies Allergy Verified 11/13/22 06:25 [No Known Allergies*] Review of Systems Review of Systems: Constitutional: No Weight loss, No Fever, + Chills, No Night Sweats, No Fatigue, No Malaise ENT/Mouth: No Hearing loss, No Ear Pain, No Nasal Congestion, No Sinus Pain, No Hoarseness, No sore throat, No Rhinorrhea, No Swallowing Difficulty Eyes: No Eye Pain, No Swelling, No Redness, No Foreign Body, No Discharge, No Vision Changes Cardiovascular: No Chest Pain, No SOB, No Dyspnea on Exertion, No Orthopnea, No Edema, No Palpitations Respiratory: + Cough, + Sputum, No Wheezing, No Smoke Exposure, + Dyspnea Gastrointestinal: No Nausea, No Vomiting, No Diarrhea, No Constipation, No Abdominal pain, No Hematochezia, No Melena Genitourinary: No irregular bleeding, No Dysuria, No Urinary Frequency, No Hematuria, No Urinary Incontinence/retention, No Urgency, No Flank Pain, No Urinary Flow Changes, No Hesitancy Musculoskeletal: No joint pain, No Myalgias, No Joint Swelling Skin: No Skin Lesions, No rash Neuro: No Weakness, No Numbness, No Paresthesias, No Loss of Consciousness, No Dizziness, No Headache Psych: No Anxiety/Panic, No Depression, No SI/HI/AH/VH, No Social Issues, Heme/Lymph: No Bruising, No Bleeding,No Lymphadenopathy Endocrine: No Polyuria, No Polydipsia, No Temperature Intolerance Yes all other systems are reviewed and are negative Constitutional: Constitutional: Reports as per [facility] Past Medical History Attestation statement: The following information was validated with the patient. Medical History CHF exacerbation Compression fracture of body of thoracic vertebra Compression fracture of thoracic spine, non-traumatic Constipation COPD (chronic obstructive pulmonary disease) Depression Dyspnea GERD (gastroesophageal reflux disease) History of alcohol abuse Hyperlipidemia Hypertension Nonischemic cardiomyopathy Osteoporosis Personal history of nicotine dependence Pneumonia Pneumonia Pulmonary nodules Tubular adenoma of colon Surgical History History of appendectomy History of gastric surgery History of surgery on left wrist (~03/21/10) Hx of cataract surgery (~07/02/10) Hx of colonoscopy (~02/13/06) Hx of endoscopy Family History Family History Mother Renal failure Father History of depression Brother Colon cancer Social History Social History Household Members: None Housing: Apartment Are you a primary palliative care physician to a significant other at home: No Do you presently have visiting nurse or other home services: No Alcohol intake: never Patient Tobacco Use Status: Former Tobacco user Quit Date: 2021 Tobacco use type: Cigarette Cigarette Packs Per Day: 0.5 Years Smoked: 55 Smoked in Last 30 Days: No e-Cigarette/Vaping Use: Never Used Second Hand Smoke Exposure: No Use of substances other than those prescribed or required for medical reasons: No Advance Directives: Yes Advance Directives on File: Yes Advance Directives Date on File: 09/02/22 service: No Current occupational status: unemployed Physical Exam Vital Signs: Vital Signs: Last Vital Signs Temp 98.9 F 11/13/22 08:16 Pulse 103 H 11/13/22 08:16 Resp 18 11/13/22 08:16 BP 94/72 11/13/22 08:16 Pulse Ox 95 11/13/22 08:16 O2 Del Method Oxymask 11/13/22 08:16 O2 Flow Rate 6 11/13/22 08:16 Oxygen Flow Rate 6 11/13/22 06:10 BMI result Body Mass Index 32.3 Const: Other: On oxymask General: cooperative, comfortable and no acute distress Orientation/consciousness: patient oriented x3 Limitations: no limitations HEENT: Other: BL TMs with cerumen impactions noted bilaterally. Head: Yes normal to inspection, Yes normocephalic and Yes atraumatic Ears: hearing grossly normal bilaterally General nose exam: Normal external nose present Face and sinus: Yes normal facial exam, Yes sinuses nontender and Yes face symmetric Mouth: Normal oral and palatal mucosa present, oropharynx normal and moist mucous membranes Throat: Yes posterior oropharynx normal Eyes: General: appearance normal, both eyes and all related structures Eyelids: Yes eyelids normal Conjunctivae: conjunctivae normal Sclerae: sclerae normal Pupils: Equal, round and reactive pupils present EOM: EOMs intact bilaterally Neck: Neck: Yes normal visual inspection, Yes full ROM and Yes no lymphadenopathy Lymphatic: no lymphadenopathy noted Chest: Chest palpation & inspection: normal inspection of the chest and normal palpation of entire chest wall Resp: Other: Rhonchi noted to bilateral lung bases. Effort & Inspection: normal respiratory effort and able to speak in complete sentences Cardio: Rate: regular rate Rhythm: regular rhythm Heart sounds: S1 normal heart sound present and S2 normal heart sound present GI: Inspection: Yes normal to inspection Palpation (GI): Soft to palpation, nontender, no guarding and not rigid Auscultation: normal bowel sounds Skin: General skin exam: no rashes or lesions noted Trauma: no lacerations or abrasions Wounds: no wounds Neuro: General: patient oriented x3 and moves all extremities Cranial nerves: Yes Equal, round and reactive pupils present and Yes Midline tongue present Extrem: General: Yes normal to inspection, Yes no pedal edema and Yes no calf tenderness Right upper extremity: normal to inspection Left upper extremity: normal to inspection Right lower extremity: normal to inspection Left lower extremity: normal to inspection Course Reevaluation(s) Reevaluation #1: Lactic acid 2.1, patient currently receiving abx for coverage of healthcare acquired pneumonia. Pt remains stable. Time: 07:49 Reevaluation #2: Given recent hospitalization, need for supplemental O2, and IV abx, patient warrants hospital admission for further management and treatment of pneumonia and hypoxia. Discussed case with hospitalist, Dr. Lyles, who accepts transfer of care. Time: 08:23 Medications Administered Generic Name Dose Route Start Last Admin Trade Name Freq PRN Reason Stop Dose Admin Vancomycin HCl 2,000 mg in 500 mls @ 250 mls/hr 11/13/22 06:57 11/13/22 08:13 Vancomycin/Ns IV 11/13/22 08:56 250 mls/hr ONCE ONE Administration Discontinued Medications Generic Name Dose Route Start Last Admin Trade Name Freq PRN Reason Stop Dose Admin Acetaminophen 975 mg 11/13/22 08:16 11/13/22 08:20 Acetaminophen 325 Mg Tablet PO 11/13/22 08:17 975 mg ONCE ONE Administration Cefepime HCl 2 gm/ Sodium 50 mls @ 100 mls/hr 11/13/22 06:57 11/13/22 08:20 Chloride IV 11/13/22 07:26 Infused ONCE ONE Infusion Levalbuterol HCl 1.25 mg 11/13/22 06:53 11/13/22 07:16 Levalbuterol Hcl 1.25 Mg/3 Ml Vial.Neb INHALE 11/13/22 06:54 1.25 mg ONCE ONE Administration Methylprednisolone Sodium Succinate 40 mg 11/13/22 06:57 11/13/22 07:21 Methylprednisolone Sod Succ 40 Mg/Ml Vial IVPUSH 11/13/22 06:58 40 mg ONCE ONE Administration Medical Decision Making Medical Decision Making [facility] Narrative: This is a 67-year-old male, with a past medical history of paroxysmal atrial fibrillation, nonischemic cardiomyopathy, COPD, hyperlipidemia, who presents to the ER for evaluation of shortness of breath which woke him up out of sleep at 3:00AM this morning. He states that over the last several days he has noticed increased work of breathing and a productive cough. On arrival, patient was 89% on 6L nasal cannula, pulse 125, respirations 22rpm, afebrile at 98.5. Patient was placed on 6L via oxymask and saturating at 92%. Lung sounds with coarse crackles in the lower bases. Chest x-ray revealing right lower lung infiltrate. WBC 3.1k, viral swabs and COVID testing negative. Recent hospitalization from 08/27-08/30 for a fib, COPD with chronic hypoxic respiratory failure and possible pneumonia. Followed by steam cleaner, by Dr. Sterling, last visit note from 09/12, revealing no malignancy seen on bronchoscopy performed on 08/29. Plan: Blood cultures, lactic, IV solu-medrol, levalbuterol, IV zithromax, cefepime, levaquin given recent hospitalization to cover for hospital acquired pneumonia. Differential Diagnosis Differential Diagnoses: The differential diagnosis associated with the presentation includes Pneumonia, COPD exacerbation, bronchitis, Acute respiratory failure Admission/Observation Consideration of admission/observation: Escalation of care including admission/observation considered Given need for supplemental O2, evidence of PNA. Lab Data MDM Lab Attestation statement: I reviewed the patient's lab results. 11/13/22 06:29 11/13/22 06:29 Labs: Lab Results 11/13/22 11/13/22 11/13/22 Range/Units 06:29 06:29 06:29 WBC 3.1 L (4.8-10.8) X10*3/uL RBC 4.73 (4.60-5.80) X10*6/uL Hgb 12.9 L (14.0-18.0) g/dl Hct 40.0 L (42.0-52.0) % MCV 84.6 (80.0-98.0) fL MCH 27.3 (27.0-33.0) pg MCHC 32.3 (31.0-36.0) g/dl RDW 13.2 (11.0-16.0) % Plt Count 146 L (160-400) X10*3/uL MPV 9.9 (9.4-12.4) fL Immature Gran % (Auto) 0.0 (0.0-0.4) % Neut % (Auto) 85.3 H (45-73) % Lymph % (Auto) 11.1 L (20-40) % [place] % (Auto) 3.0 (2-11) % Eos % (Auto) 0.3 (0-4) % Baso % (Auto) 0.3 (0-2) % Lymph # (Auto) 0.3 L (1.2-4.9) X10*3/uL [place] # (Auto) 0.1 (0.1-1.2) X10*3/uL Eos # (Auto) 0.0 (0.0-0.4) X10*3/uL Baso # (Auto) 0.0 (0.0-0.2) X10*3/uL Abs Immat Gran (auto) 0.00 (0.00-0.03) X10*3/uL Absolute Neuts (auto) 2.6 (2.0-8.3) x10*3/uL Absolute Nucleated RBC 0.000 (0.0-0.012) X10*3/uL Nucleated RBC % (auto) 0.0 (0.0-0.2) /100WBC Sodium 141 (135-145) mmol/L Potassium 4.0 (3.3-5.1) mmol/L Chloride 110 H (96-108) mmol/L Carbon Dioxide 22 (22-29) mmol/L Anion Gap 13 (12-20) BUN 18 H (9-16) mg/dL Creatinine 0.99 (0.5-1.4) mg/dL Estim Creat Clear Calc 70.3 Estimated GFR > 60 Random Glucose 119 H (60-115) mg/dL Lactic Acid (0.5-2.0) mmol/L Calcium 8.7 D (8.4-10.2) mg/dL Total Bilirubin 1.3 H (0.0-1.0) mg/dL AST 15 (5-37) U/L ALT 17 (0-40) U/L Alkaline Phosphatase 89 (39-117) U/L Troponin I High Sens < 2.7 (<3.5-35.0) ng/L B-Natriuretic Peptide (<100) pg/mL Total Protein 6.6 (6.5-8.0) g/dL Albumin 3.7 (3.5-5.0) g/dL Procalcitonin ng/mL Influenza Type A (PCR) (Negative) Influenza Type B (PCR) (Negative) RSV RNA Qual (PCR) (Negative) SARS-CoV-2 RNA (RT-PCR) (Negative) 11/13/22 11/13/22 11/13/22 Range/Units 06:29 06:30 07:28 WBC (4.8-10.8) X10*3/uL RBC (4.60-5.80) X10*6/uL Hgb (14.0-18.0) g/dl Hct (42.0-52.0) % MCV (80.0-98.0) fL MCH (27.0-33.0) pg MCHC (31.0-36.0) g/dl RDW (11.0-16.0) % Plt Count (160-400) X10*3/uL MPV (9.4-12.4) fL Immature Gran % (Auto) (0.0-0.4) % Neut % (Auto) (45-73) % Lymph % (Auto) (20-40) % [place] % (Auto) (2-11) % Eos % (Auto) (0-4) % Baso % (Auto) (0-2) % Lymph # (Auto) (1.2-4.9) X10*3/uL [place] # (Auto) (0.1-1.2) X10*3/uL Eos # (Auto) (0.0-0.4) X10*3/uL Baso # (Auto) (0.0-0.2) X10*3/uL Abs Immat Gran (auto) (0.00-0.03) X10*3/uL Absolute Neuts (auto) (2.0-8.3) x10*3/uL Absolute Nucleated RBC (0.0-0.012) X10*3/uL Nucleated RBC % (auto) (0.0-0.2) /100WBC Sodium (135-145) mmol/L Potassium (3.3-5.1) mmol/L Chloride (96-108) mmol/L Carbon Dioxide (22-29) mmol/L Anion Gap (12-20) BUN (9-16) mg/dL Creatinine (0.5-1.4) mg/dL Estim Creat Clear Calc Estimated GFR Random Glucose (60-115) mg/dL Lactic Acid (0.5-2.0) mmol/L Calcium (8.4-10.2) mg/dL Total Bilirubin (0.0-1.0) mg/dL AST (5-37) U/L ALT (0-40) U/L Alkaline Phosphatase (39-117) U/L Troponin I High Sens (<3.5-35.0) ng/L B-Natriuretic Peptide 23 (<100) pg/mL Total Protein (6.5-8.0) g/dL Albumin (3.5-5.0) g/dL Procalcitonin 2.69 ng/mL Influenza Type A (PCR) NEGATIVE (Negative) Influenza Type B (PCR) NEGATIVE (Negative) RSV RNA Qual (PCR) NEGATIVE (Negative) SARS-CoV-2 RNA (RT-PCR) NEGATIVE (Negative) 11/13/22 Range/Units 07:28 WBC (4.8-10.8) X10*3/uL RBC (4.60-5.80) X10*6/uL Hgb (14.0-18.0) g/dl Hct (42.0-52.0) % MCV (80.0-98.0) fL MCH (27.0-33.0) pg MCHC (31.0-36.0) g/dl RDW (11.0-16.0) % Plt Count (160-400) X10*3/uL MPV (9.4-12.4) fL Immature Gran % (Auto) (0.0-0.4) % Neut % (Auto) (45-73) % Lymph % (Auto) (20-40) % [place] % (Auto) (2-11) % Eos % (Auto) (0-4) % Baso % (Auto) (0-2) % Lymph # (Auto) (1.2-4.9) X10*3/uL [place] # (Auto) (0.1-1.2) X10*3/uL Eos # (Auto) (0.0-0.4) X10*3/uL Baso # (Auto) (0.0-0.2) X10*3/uL Abs Immat Gran (auto) (0.00-0.03) X10*3/uL Absolute Neuts (auto) (2.0-8.3) x10*3/uL Absolute Nucleated RBC (0.0-0.012) X10*3/uL Nucleated RBC % (auto) (0.0-0.2) /100WBC Sodium (135-145) mmol/L Potassium (3.3-5.1) mmol/L Chloride (96-108) mmol/L Carbon Dioxide (22-29) mmol/L Anion Gap (12-20) BUN (9-16) mg/dL Creatinine (0.5-1.4) mg/dL Estim Creat Clear Calc Estimated GFR Random Glucose (60-115) mg/dL Lactic Acid 2.1 H* (0.5-2.0) mmol/L Calcium (8.4-10.2) mg/dL Total Bilirubin (0.0-1.0) mg/dL AST (5-37) U/L ALT (0-40) U/L Alkaline Phosphatase (39-117) U/L Troponin I High Sens (<3.5-35.0) ng/L B-Natriuretic Peptide (<100) pg/mL Total Protein (6.5-8.0) g/dL Albumin (3.5-5.0) g/dL Procalcitonin ng/mL Influenza Type A (PCR) (Negative) Influenza Type B (PCR) (Negative) RSV RNA Qual (PCR) (Negative) SARS-CoV-2 RNA (RT-PCR) (Negative) Independent Interpretation I performed an independent interpretation of an: EKG and Plain X-Ray Interpretation: Sinus tachycardic at 126BPM, VT interval 136, QTC 457. Chest x-ray with right sided infiltrate noted. Radiology Impression Discussion of test interpretation with radiology: I have reviewed the radiologist's reading. Radiologist Impression: [place] [id number] XRay Report Signed Patient: Avery Ware MR#: [id number] : 1955 Acct:[id number] Age/Sex: 67 / M ADM Date: 11/13/22 Loc: .ED Attending Dr: Ordering Physician: Razia Thomas MD Date of Service: 11/13/22 Procedure(s): XR chest 1V Accession Number(s): [id number] cc: Razia Thomas MD~ EXAMINATION: XR CHEST CLINICAL INFORMATION: Shortness of breath COMPARISON: 08/26/2022 TECHNIQUE: Frontal view of the chest was obtained. FINDINGS: Right lower lung patchy airspace opacities. Background emphysema and bronchiectatic changes. No pleural effusion or pneumothorax. Normal heart size and pulmonary vascularity. XR/XR chest 1V IMPRESSION: *? Right lower lung infiltrate *? Emphysema and bronchiectatic changes. ? Dictated By: Fredy Gifford MD Independent Historian Clinical information obtained from an independent historian. History obtained from or confirmed by: EMS External Record Review External record reviewed: Inpatient record, Office record, Outpatient record, Prior outpatient labs, Prior outpatient radiology, Primary care record and Outside ED record Prescription Management I considered prescription management with: Antibiotic Chronic Conditions Patient?s care impacted by: Other (Afib on eliquis, CHF, COPD) Discharge Plan Discharge Clinical Impression: Pneumonia Patient Disposition: Admitted As Inpatient Prescriptions: No Action albuterol sulfate [Ventolin HFA] 90 mcg/actuation HFA aerosol inhaler 2 puff INHALATION Q6H PRN (Reason: wheezing) 30 Days Qty: 8.5 11RF dexlansoprazole 60 mg capsule,biphase delayed releas 60 mg PO DAILY Qty: 90 1RF peg 3350-electrolytes 236-22.74-6.74 -5.86 gram recon soln 240 ml PO Q10M Qty: 4000 0RF Rx Instructions: until fecal effluent is clear Tymlos 80 mcg (3,120 mcg/1.56 mL) pen injector 80 mcg subcut DAILY Qty: 1.56 12RF Rx Instructions: inject into abdomen; do not inject within 2 inches of belly button/navel; rotate sites Trelegy Ellipta 200-62.5-25 mcg blister with device 1 inh PO DAILY Eliquis 5 mg tablet 5 mg PO BID Qty: 60 0RF sotalol 80 mg Tablet 80 mg PO BID Qty: 80 0RF valsartan 40 mg tablet 20 mg PO BID Qty: 60 0RF quetiapine 300 mg tablet 300 mg PO BEDTIME simvastatin 20 mg tablet 20 mg PO BEDTIME latanoprost 0.005 % drops 1 drp ophthalmic (eye) BEDTIME trazodone 100 mg tablet 200 mg PO BEDTIME PRN metoclopramide HCl 10 mg tablet 10 mg PO calcium carbonate-vitamin D3 600 mg-20 mcg (800 unit) tablet 1 tab PO BID
[2022-11-13] MEDS: cefEPime HCl 2 GM in 0.9 % Sodium Chloride 50 ML IV ×3 (07:28→23:36)
[2022-11-13 07:48] LABS: Lactic Acid 2.1 mmol/L (0.5-2.0)
[2022-11-13 08:09] LABS: Procalcitonin 2.69 ng/mL
[2022-11-13] MEDS: vancomycin/NS 2,000 MG/500 ML PLAST..BAG 250 MG IV (08:13)
[2022-11-13] MEDS: Acetaminophen 325 MG TABLET 975 MG PO (08:20)
--- NOTE | 2022-11-13 09:23 | PHA.MEDREC ---
Pharmacy Consult ? Medication Reconciliation Pharmacy has completed the medication reconciliation. Hourly Shift used, pt agreeable to most meds but unable to recite on his own. Used claim history and patient verification. States he takes no OTC medications.
[2022-11-13 09:33] LABS: Reflex Lactate? Lactic Acid Added
[2022-11-13] MEDS: 0.9 % Sodium Chloride 1,000 ML 500 ML IVCONT (09:40)
--- NOTE | 2022-11-13 09:48 | PC.NURSE ---
Alert and oriented. Reports improvement in breathing. BP 97/ 65, fluids running along with ABT as ordered. Friend and bedside.
--- NOTE | 2022-11-13 10:03 | PC.NURSE ---
Unable to start Azithromycin, Phylliso continues to infuse, slow d/t positioning
--- NOTE | 2022-11-13 10:55 | PM.IMHP ---
History of Present Illness Date of Service: 11/13/22 Chief Complaint: Shortness of breath 67-year-old prydeinig speaking male, with a past medical history of paroxysmal atrial fibrillation on Eliquis, nonischemic cardiomyopathy, COPD and emphysema not on home O2, hyperlipidemia, who presents to the emergency department with complaints of worsening shortness of breath since 3:00AM this morning. Patient states that he woke up in the middle of the night and felt as though he could not breathe. He tried using his inhalers at home without any relief. He states that over the last several days he has noticed increased work of breathing with associated productive cough. He notes a similar episode approximately 2 months ago. Chest x-ray in emergency room consistent with right lower lobe infiltrate. He will be admitted to general medical floor for treatment of same Review of Systems Review of Systems: Denies chest pain Denies shortness of breath Denies nausea vomiting diarrhea Denies fever chills PMFSH Medical History (Updated 11/13/22 @ 11:01 by Joseph Lyles DO) CHF exacerbation Compression fracture of body of thoracic vertebra Compression fracture of thoracic spine, non-traumatic Constipation COPD (chronic obstructive pulmonary disease) Depression Dyspnea GERD (gastroesophageal reflux disease) History of alcohol abuse Hyperlipidemia Hypertension Nonischemic cardiomyopathy Osteoporosis Personal history of nicotine dependence Pneumonia Pneumonia Pulmonary nodules Tubular adenoma of colon Family History Mother Renal failure Father History of depression Brother Colon cancer Surgical History History of appendectomy History of gastric surgery History of surgery on left wrist (~03/21/10) Hx of cataract surgery (~07/02/10) Hx of colonoscopy (~02/13/06) Hx of endoscopy Social History Household Members: None Housing: Apartment Are you a primary inspector health care facilities to a significant other at home: No Do you presently have visiting nurse or other home services: No Alcohol intake: never Patient Tobacco Use Status: Former Tobacco user Quit Date: 2021 Tobacco use type: Cigarette Cigarette Packs Per Day: 0.5 Years Smoked: 55 Smoked in Last 30 Days: No e-Cigarette/Vaping Use: Never Used Second Hand Smoke Exposure: No Use of substances other than those prescribed or required for medical reasons: No Advance Directives: Yes Advance Directives on File: Yes Advance Directives Date on File: 09/02/22 service: No Current occupational status: unemployed Meds Allergies Allergy/AdvReac Type Severity Reaction Status Date / Time No Known Allergies Allergy Verified 11/13/22 06:25 [No Known Allergies*] Active Medications: Current Medications Apixaban (Apixaban 5 Mg Tablet) 5 mg PO BID [facility] Famotidine (Famotidine 20 Mg Tablet) 40 mg PO BEDTIME PRN PRN Reason: heartburn Sodium Chloride (Ns) 1,000 mls @ 500 mls/hr IVCONT .Q2H ONE Stop: 11/13/22 11:31 Last Admin: 11/13/22 09:40 Dose: 500 mls/hr Lactated Ringer's (Lr) 1,000 mls @ 100 mls/hr IVCONT .Q10H YESSENIA Vancomycin HCl 1,500 mg/ (Sodium Chloride) 500 mls @ 333.333 mls/hr IV Q12H YESSENIA Cefepime HCl 2 gm/ Sodium (Chloride) 50 mls @ 100 mls/hr IV Q12H YESSENIA Latanoprost (Latanoprost 0.005 % Ophth Evelyn 2.5 Ml Drops) 1 drop EYE-BOTH BEDTIME [facility]ESS[facility] Metoclopramide HCl (Metoclopramide Hcl 10 Mg Tablet) 10 mg PO QIDACHS [facility] Non-Formulary Medication (Simvastatin) 20 mg PO BEDTIME [facility] Non-Formulary Medication (Calcium Carbonate-Vitamin D3) 1 tab PO BID [facility] Non-Formulary Medication (Linaclotide [Linzess]) 145 mcg PO DAILY [facility] Non-Formulary Medication (Dexlansoprazole) 60 mg PO DAILY [facility] Non-Formulary Medication (Erqknmsbnxf-Ondcevjms-Mvcomjmk [Trelegy Ellipta]) 1 inhalation PO DAILY [facility] Pharmacy Consult (Consult Rx Perform Med Rec) 1 each MISCELLANE ONCE PRN PRN Reason: Consult order Pharmacy Consult (Consult Rx Vancomycin Dosing) 1 each MISCELLANE DAILY PRN PRN Reason: Consult order Quetiapine Fumarate (Quetiapine Fumarate 300 Mg Tablet) 300 mg PO BEDTIME [facility] Sodium Chloride (0.9 % Sodium Chloride Flush 3 Ml Syringe) 3 ml IVFLUSH QSHIFT [facility]ESS[facility] Sotalol HCl (Sotalol Hcl 80 Mg Tablet) 80 mg PO BID [facility] Trazodone HCl (Trazodone Hcl 100 Mg Tablet) 200 mg PO BEDTIME PRN PRN Reason: Sleep Valsartan (Valsartan 40 Mg Tablet) 20 mg PO BID [facility]ESS[facility]; Protocol Home Medications Medication Instructions Recorded Confirmed Last Taken Type latanoprost 0.005 % eye drops 1 drp ophthalmic (eye) BEDTIME 03/27/20 11/13/22 11/11/22 History quetiapine 300 mg tablet 300 mg PO BEDTIME 03/27/20 11/13/22 11/11/22 History simvastatin 20 mg tablet 20 mg PO BEDTIME 03/27/20 11/13/22 11/11/22 History fluticasone fur. 200 mcg-umeclid 1 inh PO DAILY 08/26/22 11/13/22 11/11/22 History 62.5 mcg-vilant 25 mcg inhalat.powder (Trelegy Ellipta) metoclopramide HCl 10 mg tablet 10 mg PO QIDACHS 10/21/22 11/13/22 11/11/22 History trazodone 100 mg tablet 200 mg PO BEDTIME PRN Sleep 10/21/22 11/13/22 Unknown History calcium carbonate 600 mg-vitamin 1 tab PO BID 10/29/22 11/13/22 11/11/22 History D3 20 mcg (800 unit) tablet famotidine 40 mg tablet 40 mg PO BEDTIME PRN heartburn 11/13/22 11/13/22 Unknown History linaclotide 145 mcg capsule 145 mcg PO DAILY 11/13/22 11/13/22 11/11/22 History (Linzess) Physical Exam Vital Signs and Narrative: Vital Signs: Last Vital Signs Temp 97.9 F 11/13/22 10:51 Pulse 84 11/13/22 10:51 Resp 29 H 11/13/22 10:51 BP 95/70 11/13/22 10:51 Pulse Ox 97 11/13/22 10:51 O2 Del Method Oxymask 11/13/22 10:51 O2 Flow Rate 6 11/13/22 10:51 Oxygen Flow Rate 6 11/13/22 06:10 BMI result Body Mass Index 32.3 Const: Other: Awake alert oriented x3 no acute distress Resp: Other: Diminished throughout with fine crackles right base. Scattered expiratory wheezes Cardio: Other: No S4; positive S1-S2; no S3 murmurs rubs or gallops (RRR) GI: Other: Soft nontender nondistended normoactive bowel sounds Neuro: Other: Cranial nerves 2-12 grossly intact as tested. Motor is 5/5 all extremities. Sensation is intact. Cognition appropriate (via aids social worker) Extrem: Other: No edema bilaterally Results Labs 11/13/22 06:29 11/13/22 06:29 Labs: Laboratory Results - last 24 hr 11/13/22 11/13/22 11/13/22 06:29 06:29 06:29 MCV 84.6 MCH 27.3 MCHC 32.3 RDW 13.2 Plt Count 146 L MPV 9.9 Immature Gran % (Auto) 0.0 Neut % (Auto) 85.3 H Lymph % (Auto) 11.1 L Walsh % (Auto) 3.0 Eos % (Auto) 0.3 Baso % (Auto) 0.3 Lymph # (Auto) 0.3 L Walsh # (Auto) 0.1 Eos # (Auto) 0.0 Baso # (Auto) 0.0 Abs Immat Gran (auto) 0.00 Absolute Neuts (auto) 2.6 Absolute Nucleated RBC 0.000 Nucleated RBC % (auto) 0.0 Anion Gap 13 Estim Creat Clear Calc 70.3 Estimated GFR > 60 Random Glucose 119 H Lactic Acid Calcium 8.7 D Total Bilirubin 1.3 H AST 15 ALT 17 Alkaline Phosphatase 89 Troponin I High Sens < 2.7 B-Natriuretic Peptide Total Protein 6.6 Albumin 3.7 Procalcitonin Influenza Type A (PCR) Influenza Type B (PCR) RSV RNA Qual (PCR) SARS-CoV-2 RNA (RT-PCR) 11/13/22 11/13/22 11/13/22 06:29 06:30 07:28 MCV MCH MCHC RDW Plt Count MPV Immature Gran % (Auto) Neut % (Auto) Lymph % (Auto) Walsh % (Auto) Eos % (Auto) Baso % (Auto) Lymph # (Auto) Walsh # (Auto) Eos # (Auto) Baso # (Auto) Abs Immat Gran (auto) Absolute Neuts (auto) Absolute Nucleated RBC Nucleated RBC % (auto) Anion Gap Estim Creat Clear Calc Estimated GFR Random Glucose Lactic Acid Calcium Total Bilirubin AST ALT Alkaline Phosphatase Troponin I High Sens B-Natriuretic Peptide 23 Total Protein Albumin Procalcitonin 2.69 Influenza Type A (PCR) NEGATIVE Influenza Type B (PCR) NEGATIVE RSV RNA Qual (PCR) NEGATIVE SARS-CoV-2 RNA (RT-PCR) NEGATIVE 11/13/22 07:28 MCV MCH MCHC RDW Plt Count MPV Immature Gran % (Auto) Neut % (Auto) Lymph % (Auto) Walsh % (Auto) Eos % (Auto) Baso % (Auto) Lymph # (Auto) Walsh # (Auto) Eos # (Auto) Baso # (Auto) Abs Immat Gran (auto) Absolute Neuts (auto) Absolute Nucleated RBC Nucleated RBC % (auto) Anion Gap Estim Creat Clear Calc Estimated GFR Random Glucose Lactic Acid 2.1 H* Calcium Total Bilirubin AST ALT Alkaline Phosphatase Troponin I High Sens B-Natriuretic Peptide Total Protein Albumin Procalcitonin Influenza Type A (PCR) Influenza Type B (PCR) RSV RNA Qual (PCR) SARS-CoV-2 RNA (RT-PCR) Imaging Radiologist's Impressions: Impressions Chest X-Ray 11/13/22 06:23 IMPRESSION: * Right lower lung infiltrate * Emphysema and bronchiectatic changes. Assessment and Plan (1) Right lower lobe pneumonia: Status: Acute (2) Acute exacerbation of chronic obstructive pulmonary disease: Status: Acute (3) Paroxysmal atrial fibrillation: Status: Resolved (4) Hypertension: Status: Acute Plan 67-year-old prydeinig speaking male, with a past medical history of paroxysmal atrial fibrillation on Eliquis, nonischemic cardiomyopathy, COPD and emphysema not on home O2, presents to ER with several days of worsening shortness of breath. Workup in the ER consistent with right lower lobe infiltrate 1. Right lower lobe infiltrate/acute exacerbation of COPD -IV vancomycin/cefepime -pulse dose steroids -DuoNebs q.4 hours p.r.n. -titrate O2 to maintain sats greater than equal to 92% 2. Paroxysmal atrial fibrillation (in backdrop of nonischemic cardiomyopathy) -rate control adequate at this time -continue sotalol as ordered. Adjust as indicated clinically -Eliquis daily 3. Hypertension -acceptable control on current therapies -continue sotalol/valsartan at outpatient doses -adjust as clinically indicated Full code Eliquis Patient will require 2 inpatient night stays to treat right lower lobe pneumonia with IV antibiotics. This cannot be achieved a lesser acute setting Time Spent With Patient Time: Total time managing care of this patient today ____ minutes. Quality Stroke Does the patient have a stroke diagnosis?: No VTE Prior VTE?: No VTE Risk Level:: Medical - moderate - high VTE Device Contraindication: Treatment Not Indicated VTE Drug Contraindication: N/A - Med Ordered
[2022-11-13] MEDS: Azithromycin 500 MG in 0.9 % Sodium Chloride 250 ML 125 MG IV (10:56)
--- NOTE | 2022-11-13 11:07 | PHA.PROG ---
Admission Date/Time: November 13, 2022 10:43 Indication: Resp infection Weight in k.3 kg Adjusted body weight in K.3 kg [place] body weight in K.64 kg Obesity Dosing Indication % IBW: 144% Serum Creatinine - Last 168 Hours 11/13/22 06:29 Creatinine 0.99 Estimated CrCl and GFR - Last 168 Hours 11/13/22 06:29 Estim Creat Clear Calc 70.3 Estimated GFR > 60 Vancomycin Loading Dose: 2000 mg Current Vancomycin Dosing Regimen: 750 mg Q12H Date and Time for next Vancomycin Level to be drawn: 11/14 @ 1800 Pharmacist Comments on Vancomycin Plan: Patient has a %IBW > 130% therefore careful monitor is required due to vancomycin high volume distribution Patient received in adequate load dose of vancomycin 2000 mg on 11/14 @ 0813. Maintenance dose vancomycin 750 mg Q12H is scheduled to start 11/13 @ 1999. Expected AUC between 435 - 557 with a trough between 14.4-18.2 Level is scheduled for prior to 3rd dose Pharmacy will monitor renal function daily. Brenda Brown PharmD Vancomycin dosing will take advantage of [employer]uklik as a clinical decision support tool that uses Bayesian modeling to calculate individual patient's pharmacokinetic parameters and forecast the patient's drug concentration time course with the target goal AUC 24 range of 400 - 600 mg/L/hr.
[2022-11-13 11:26] LABS: ~Lactic Acid-LAB USE ONLY 1.7 mmol/L (0.5-2.0)
[2022-11-13] MEDS: Metoclopramide HCl 10 MG TABLET PO ×3 (12:39→20:52)
[2022-11-13] MEDS: Apixaban 5 MG TABLET PO ×2 (12:39→20:52)
[2022-11-13] MEDS: Lactated Ringers 1,000 ML 100 ML IVCONT (12:40)
[2022-11-13] MEDS: methylPREDNISolone Sod Succ 125 MG/2 ML VIAL 60 MG IVPUSH ×2 (15:13→20:52)
[2022-11-13] MEDS: 0.9 % Sodium Chloride Flush 3 ML SYRINGE IVFLUSH (15:15)
--- NOTE | 2022-11-13 15:26 | PC.NURSE ---
Alert and oriented. Abt and meds per orders. sating 96% on 2 liters via NC. Reports chronic lower back pain. Kapil 111/73. Reports breathing and feeling much better than this morning. Ate well for lunch.
--- NOTE | 2022-11-13 17:06 | PC.NURSE ---
Sating 96 % on 2 liters 02 via NC Aware he is being transferred upstairs to room 375
--- NOTE | 2022-11-13 18:00 | PC.NURSE ---
Report called to unit. Patient aware of transfer
[2022-11-13] MEDS: QUEtiapine Fumarate 300 MG TABLET PO (20:51)
[2022-11-13] MEDS: Atorvastatin Calcium 10 MG TABLET PO (20:52)
[2022-11-13] MEDS: Sotalol HCL 80 MG TABLET PO (20:52)
[2022-11-13] MEDS: vancomycin HCL 750 MG in 0.9 % Sodium Chloride 250 ML 265 MG IV (20:53)
[2022-11-13] MEDS: Calcium + Vitamin D 250 MG TABLET 500 MG PO (21:00)
[2022-11-13] MEDS: Acetaminophen 325 MG TABLET 650 MG PO (21:02)
[2022-11-13] MEDS: Valsartan 40 MG TABLET 20 MG PO (21:23)
[2022-11-13] MEDS: Latanoprost 0.005 % Ophth Sol 2.5 ML DROPS 1 DROP EYE-BOTH (22:33)
[2022-11-14] MEDS: methylPREDNISolone Sod Succ 125 MG/2 ML VIAL 60 MG IVPUSH ×4 (02:10→20:49)
[2022-11-14 04:00] VITALS: BP 95/65; PULSE 95; RESP 17; TEMP 36.5; O2SAT 93
[2022-11-14] MEDS: cefEPime HCl 2 GM in 0.9 % Sodium Chloride 50 ML IV ×3 (05:40→20:56)
[2022-11-14] MEDS: Omeprazole 40 MG CAPSULE.DR PO (05:40)
[2022-11-14 07:09] VITALS: BP 101/70; PULSE 83; RESP 18; TEMP 36.7; O2SAT 94
[2022-11-14 07:11] LABS: Hematocrit 32.7 % (42.0-52.0); Hemoglobin 10.7 g/dl (14.0-18.0); Mean Corpuscular HGB Conc 32.7 g/dl (31.0-36.0); Mean Corpuscular Hemoglobin 27.8 pg (27.0-33.0); Mean Corpuscular Volume 84.9 fL (80.0-98.0); Mean Platelet Volume 10.9 fL (9.4-12.4); Platelet Count 144 X10*3/uL (160-400); Red Blood Count 3.85 X10*6/uL (4.60-5.80); Red Cell Distribution Width 13.7 % (11.0-16.0); White Blood Count 12.3 X10*3/uL (4.8-10.8)
[2022-11-14 07:32] LABS: Alanine Aminotransferase 12 U/L (0-40); Albumin Level 2.9 g/dL (3.5-5.0); Alkaline Phosphatase 53 U/L (39-117); Anion Gap 11 (12-20); Aspartate Amino Transferase 9 U/L (5-37); Bilirubin Total 0.9 mg/dL (0.0-1.0); Blood Urea Nitrogen 19 mg/dL (9-16); Calcium 8.6 mg/dL (8.4-10.2); Carbon Dioxide 20 mmol/L (22-29); Chloride 115 mmol/L (96-108); Creatinine Clr Calc Pharmacy 89.2; Estimated Glomerular Filt Rate > 60; Glucose Fasting 129 mg/dL (60-99); Sodium 142 mmol/L (135-145); Total Protein 5.2 g/dL (6.5-8.0)
[2022-11-14 08:05] LABS: Band Neutrophils Percent 14 % (3-5); Lymphocytes Absolute Manual 0.2 X10*3/uL (1.2-4.9); Lymphocytes Percent Manual 2 % (20-40); Metamyelocytes Absolute 0.1 X10*3/uL; Metamyelocytes Percent 1 %; Monocytes Absolute Manual 0.6 X10*3/uL (0.1-1.2); Monocytes Percent Manual 5 % (2-11); Neutrophils Absolute Manual 11.3 X10*3/uL (2.0-8.3); Neutrophils Percent Manual 78 % (45-73)
[2022-11-14 08:06] LABS: Platelet Estimate SLIGHTLY DECREASED (NORMAL); Platelet Morphology Comment NORMAL; RBC Morphology NORMAL
[2022-11-14] MEDS: Calcium + Vitamin D 250 MG TABLET 500 MG PO ×2 (08:53→20:50)
[2022-11-14] MEDS: Acetaminophen 325 MG TABLET 650 MG PO ×2 (08:53→18:16)
[2022-11-14] MEDS: Sotalol HCL 80 MG TABLET PO ×2 (08:53→20:51)
[2022-11-14] MEDS: Metoclopramide HCl 10 MG TABLET PO ×4 (08:53→20:51)
[2022-11-14] MEDS: Valsartan 40 MG TABLET 20 MG PO ×2 (08:54→20:50)
[2022-11-14] MEDS: Apixaban 5 MG TABLET PO ×2 (08:54→20:51)
[2022-11-14] MEDS: vancomycin HCL 750 MG in 0.9 % Sodium Chloride 250 ML 265 MG IV ×2 (08:54→20:50)
[2022-11-14] MEDS: Lactated Ringers 1,000 ML 100 ML IVCONT ×2 (08:59→18:13)
--- NOTE | 2022-11-14 14:22 | HO.PM.IMPN ---
Subjective Subjective Date of Service: 11/14/22 Interval History: No acute issues overnight. Some chest pain with cough. No longer has O2 requirement Review of Systems Denies chest pain Denies shortness of breath Denies nausea vomiting diarrhea Denies fever chills Physical Exam Vital Signs: Vital Signs: Last Vital Signs Temp 98.1 F 11/14/22 07:09 Pulse 83 11/14/22 07:09 Resp 18 11/14/22 07:09 BP 101/70 11/14/22 07:09 Pulse Ox 94 11/14/22 07:09 O2 Del Method Room Air 11/14/22 07:09 O2 Flow Rate 2 11/14/22 04:00 Oxygen Flow Rate 6 11/13/22 06:10 BMI result Body Mass Index 32.3 Const: Other: Awake alert oriented x3 no acute distress Resp: Other: Improved aeration to bases. Diminished crackles. Wheezes markedly improved Cardio: Other: No S4; positive S1-S2; no S3 murmurs rubs or gallops (RRR) GI: Other: Soft nontender nondistended normoactive bowel sounds Neuro: Other: Cranial nerves 2-12 grossly intact as tested. Motor is 5/5 all extremities. Sensation is intact. Cognition appropriate (via director of corporate strategy) Extrem: Other: No edema bilaterally Objective Data Active Medications Acetaminophen (Acetaminophen 325 Mg Tablet) 650 mg PO Q6H PRN PRN Reason: Pain, Mild (Pain Scale 1-3) Last Admin: 11/14/22 08:53 Dose: 650 mg Documented By: VITALIY Apixaban (Apixaban 5 Mg Tablet) 5 mg PO BID [facility] Last Admin: 11/14/22 08:54 Dose: 5 mg Documented By: VITALIY Atorvastatin Calcium (Atorvastatin Calcium 10 Mg Tablet) 10 mg PO BEDTIME [facility] Last Admin: 11/13/22 20:52 Dose: 10 mg Documented By: KELSEY Calcium Carbonate/Cholecalciferol (Calcium + Vitamin D 250 Mg Tablet) 500 mg PO BID [facility] Last Admin: 11/14/22 08:53 Dose: 500 mg Documented By: VITALIY Famotidine (Famotidine 20 Mg Tablet) 40 mg PO BEDTIME PRN PRN Reason: heartburn Lactated Ringer's (Lr) 1,000 mls @ 100 mls/hr IVCONT .Q10H [facility] Last Admin: 11/14/22 08:59 Dose: 100 mls/hr Documented By: VITALIY Cefepime HCl 2 gm/ Sodium (Chloride) 50 mls @ 100 mls/hr IV Q8H [facility] Last Infusion: 11/14/22 14:14 Dose: 0 mls/hr Documented By: VITALIY Vancomycin HCl 750 mg/ Sodium (Chloride) 265 mls @ 265 mls/hr IV Q12H [facility] Last Infusion: 11/14/22 10:15 Dose: 0 mls/hr Documented By: VITALIY Latanoprost (Latanoprost 0.005 % Ophth Evelyn 2.5 Ml Drops) 1 drop EYE-BOTH BEDTIME [facility] Last Admin: 11/13/22 22:33 Dose: 1 drop Documented By: KELSEY Methylprednisolone Sodium Succinate (Methylprednisolone Sod Succ 125 Mg/2 Ml Vial) 60 mg IVPUSH Q6H [facility] Last Admin: 11/14/22 13:39 Dose: 60 mg Documented By: VITALIY Comments: Metoclopramide HCl (Metoclopramide Hcl 10 Mg Tablet) 10 mg PO QIDACHS [facility] Last Admin: 11/14/22 11:48 Dose: 10 mg Documented By: VITALIY Non-Formulary Medication (Linaclotide [Linzess]) 145 mcg PO DAILY [facility] Pt Own (Fluticasone- Umeclidin-Vilanter [ Trelegy Ellipta] 200 -62.5-25 Mcg 1 inhalation PO RDAILY [facility] Last Admin: 11/14/22 14:13 Dose: Not Given Documented By: VITALIY Non-Admin Reason: Med Not Available Omeprazole (Omeprazole 40 Mg Capsule.Dr) 40 mg PO DAILY@0630 [facility] Last Admin: 11/14/22 05:40 Dose: 40 mg Documented By: ZARA Pharmacy Consult (Consult Rx Perform Med Rec) 1 each MISCELLANE ONCE PRN PRN Reason: Consult order Pharmacy Consult (Consult Rx Vancomycin Dosing) 1 each MISCELLANE DAILY PRN PRN Reason: Consult order Quetiapine Fumarate (Quetiapine Fumarate 300 Mg Tablet) 300 mg PO BEDTIME [facility] Last Admin: 11/13/22 20:51 Dose: 300 mg Documented By: KELSEY Sodium Chloride (0.9 % Sodium Chloride Flush 3 Ml Syringe) 3 ml IVFLUSH QSHIFT [facility] Last Admin: 11/14/22 10:14 Dose: Not Given Documented By: VITALIY Non-Admin Reason: IV Running Sotalol HCl (Sotalol Hcl 80 Mg Tablet) 80 mg PO BID [facility] Last Admin: 11/14/22 08:53 Dose: 80 mg Documented By: VITALIY Trazodone HCl (Trazodone Hcl 100 Mg Tablet) 200 mg PO BEDTIME PRN PRN Reason: Sleep Valsartan (Valsartan 40 Mg Tablet) 20 mg PO BID [facility]; Protocol Last Admin: 11/14/22 08:54 Dose: 20 mg Documented By: VITALIY Labs 11/14/22 05:42 11/14/22 05:42 Labs: Laboratory Results - last 24 hr 11/14/22 11/14/22 05:42 05:42 MCV 84.9 MCH 27.8 MCHC 32.7 RDW 13.7 Plt Count 144 L MPV 10.9 Immature Gran % (Auto) Cancelled Neut % (Auto) Cancelled Lymph % (Auto) Cancelled [place] % (Auto) Cancelled Eos % (Auto) Cancelled Baso % (Auto) Cancelled Lymph # (Auto) Cancelled [place] # (Auto) Cancelled Eos # (Auto) Cancelled Baso # (Auto) Cancelled Abs Immat Gran (auto) Cancelled Absolute Neuts (auto) Cancelled Absolute Nucleated RBC 0.000 Nucleated RBC % (auto) 0.0 Neutrophils % (Manual) 78 H Band Neutrophils % 14 H Lymphocytes % (Manual) 2 L Monocytes % (Manual) 5 Metamyelocytes % 1 Abs Neuts (Manual) 11.3 H Lymphocytes # (Manual) 0.2 L Monocytes # (Manual) 0.6 Metamyelocytes # 0.1 Platelet Estimate SLIGHTLY DECREASED Plt Morphology Comment NORMAL RBC Morphology NORMAL Anion Gap 11 L Estim Creat Clear Calc 89.2 Estimated GFR > 60 Fasting Glucose 129 H Calcium 8.6 Total Bilirubin 0.9 AST 9 ALT 12 Alkaline Phosphatase 53 Total Protein 5.2 L Albumin 2.9 L Microbiology Microbiology Results: Microbiology 11/13/22 07:28 Blood Culture - Preliminary Blood - Venous No growth after 24 hours. 11/13/22 07:28 Blood Culture - Preliminary Blood - Venous No growth after 24 hours. Assessment and Plan (1) Right lower lobe pneumonia: Status: Acute (2) Acute exacerbation of chronic obstructive pulmonary disease: Status: Acute (3) Paroxysmal atrial fibrillation: Status: Resolved Plan 67-year-old tajik speaking male, with a past medical history of paroxysmal atrial fibrillation on Eliquis, nonischemic cardiomyopathy, COPD and emphysema not on home O2, presents to ER with several days of worsening shortness of breath. Workup in the ER consistent with right lower lobe infiltrate 1. Right lower lobe infiltrate/acute exacerbation of COPD -IV vancomycin/cefepime(2) -pulse dose steroids -DuoNebs q.4 hours p.r.n. -acceptable sats on room air 2. Paroxysmal atrial fibrillation (in backdrop of nonischemic cardiomyopathy) -rate control adequate at this time -continue sotalol as ordered. Adjust as indicated clinically -Eliquis daily 3. Hypertension -acceptable control on current therapies -continue sotalol/valsartan at outpatient doses -adjust as clinically indicated Full code Eliquis Requires ongoing hospitalization for IV antibiotics and steroids to treat right lower lobe infiltrate Time Spent With Patient Time: Total time managing care of this patient today ____ minutes. Quality Stroke Does the patient have a stroke diagnosis?: No VTE Prior VTE?: No VTE Risk Level:: Medical - moderate - high VTE Device Contraindication: Treatment Not Indicated VTE Drug Contraindication: N/A - Med Ordered
[2022-11-14 15:32] VITALS: BP 109/71; PULSE 81; RESP 18; TEMP 36; O2SAT 92
[2022-11-14 19:48] VITALS: BP 125/84; PULSE 70; RESP 18; TEMP 36.7; O2SAT 93
[2022-11-14] MEDS: QUEtiapine Fumarate 300 MG TABLET PO (20:50)
[2022-11-14] MEDS: Atorvastatin Calcium 10 MG TABLET PO (20:51)
[2022-11-14] MEDS: Latanoprost 0.005 % Ophth Sol 2.5 ML DROPS 1 DROP EYE-BOTH (21:27)
[2022-11-14 23:44] VITALS: BP 110/69; PULSE 74; RESP 18; TEMP 36.2; O2SAT 93
[2022-11-15] VITALS (7 sets, daily range): BP systolic 119–132; BP diastolic 77–86; PULSE 65–100; RESP 16–18; TEMP 36–36.4; O2SAT 92–95
[2022-11-15] MEDS: Lactated Ringers 1,000 ML 100 ML IVCONT (03:12)
[2022-11-15] MEDS: methylPREDNISolone Sod Succ 125 MG/2 ML VIAL 60 MG IVPUSH ×4 (03:13→20:20)
[2022-11-15] MEDS: Omeprazole 40 MG CAPSULE.DR PO (06:19)
[2022-11-15] MEDS: cefEPime HCl 2 GM in 0.9 % Sodium Chloride 50 ML IV ×3 (06:19→22:53)
[2022-11-15 06:40] LABS: MANUAL DIFF FLAG NO
[2022-11-15 06:43] LABS: Basophils Percent Auto 0.1 % (0-2); Hematocrit 30.3 % (42.0-52.0); Hemoglobin 9.9 g/dl (14.0-18.0); Imm Gran Abs Auto 0.36 X10*3/uL (0.00-0.03); Imm Gran Pct Auto 2.9 % (0.0-0.4); Lymphocytes Absolute Auto 0.8 X10*3/uL (1.2-4.9); Lymphocytes Percent Auto 6.1 % (20-40); Mean Corpuscular HGB Conc 32.7 g/dl (31.0-36.0); Mean Corpuscular Hemoglobin 27.7 pg (27.0-33.0); Mean Corpuscular Volume 84.6 fL (80.0-98.0); Monocytes Absolute Auto 0.6 X10*3/uL (0.1-1.2); Monocytes Percent Auto 5.1 % (2-11); Neutrophils Absolute Auto 10.8 x10*3/uL (2.0-8.3); Neutrophils Percent Auto 85.8 % (45-73); Platelet Count 156 X10*3/uL (160-400); Red Blood Count 3.58 X10*6/uL (4.60-5.80); Red Cell Distribution Width 13.8 % (11.0-16.0); White Blood Count 12.6 X10*3/uL (4.8-10.8)
[2022-11-15 07:18] LABS: Vancomycin Random 10.5 mcg/mL (15-20)
[2022-11-15 07:23] LABS: Alanine Aminotransferase 14 U/L (0-40); Albumin Level 2.7 g/dL (3.5-5.0); Alkaline Phosphatase 49 U/L (39-117); Anion Gap 11 (12-20); Aspartate Amino Transferase 8 U/L (5-37); Bilirubin Total 0.6 mg/dL (0.0-1.0); Blood Urea Nitrogen 23 mg/dL (9-16); Calcium 8.3 mg/dL (8.4-10.2); Carbon Dioxide 22 mmol/L (22-29); Chloride 112 mmol/L (96-108); Creatinine Clr Calc Pharmacy 95.3; Estimated Glomerular Filt Rate > 60; Glucose Fasting 124 mg/dL (60-99); Sodium 141 mmol/L (135-145); Total Protein 4.9 g/dL (6.5-8.0)
--- NOTE | 2022-11-15 07:30 | HE.PHANOTE ---
RE: florao Trough on 11/15 came back at 10.5; increased dose to 1000mg Q12H with new level to be drawn on 11/16 @1800
[2022-11-15] MEDS: vancomycin HCL 1,000 MG in 0.9 % Sodium Chloride 250 ML 270 MG IV ×2 (08:10→20:22)
[2022-11-15] MEDS: Metoclopramide HCl 10 MG TABLET PO ×4 (08:11→20:22)
[2022-11-15] MEDS: Sotalol HCL 80 MG TABLET PO ×2 (08:11→20:21)
[2022-11-15] MEDS: Valsartan 40 MG TABLET 20 MG PO ×2 (08:11→20:20)
[2022-11-15] MEDS: Apixaban 5 MG TABLET PO ×2 (08:11→20:22)
[2022-11-15] MEDS: Calcium + Vitamin D 250 MG TABLET 500 MG PO ×2 (08:11→20:20)
--- NOTE | 2022-11-15 08:11 | P.CDIM_ITS ---
PROVIDER RESPONSE TEXT: To clarify, the appropriate diagnosis supported by the clinical indicators: Acute respiratory failure: Hypoxic QUERY TEXT: PHYSICIAN'S DOCUMENTATION REQUEST Date of Query: 11/14/2022 08:24 AM EDT Patient Name: Avery Ware Admit Date: 11/13/2022 Dear Joseph Lyles, A review of the medical record indicates additional documentation may be needed. Please review below and update the documentation accordingly. Clinical Indicators: Per ED note 11/13/22: SOB, SAT 87% on room air over the last several days he has noticed increased work of breathing with associated productive cou gh Respiratory rate on 11/13/22: 29 Oxymask 6L with SAT 92% CXR: Right lower lung infiltrate Emphysema and bronchiectatic changes Per H&P 11/13/22: RLL Pneumonia, Acute COPD exacerbation IV Cefepime, Vancomycin, Solu-Medrol Please clarify which of the following accurately represents the patient's respiratory status: Acute respiratory failure Please specify if Hypoxic, Hypercapnic, or Hypoxic and hypercapnic Acute respiratory distress Hypoxia Other (explain)Clinically unable to determine (explain) Thank you, Yolanda Pitts RN Use of terms such as suspected, likely, concern for, or probable (associated with a specific diagnosi s that is being evaluated, monitored, or treated as if it exists) are acceptable and can be coded in the inpatient se tting, when documented at the time of discharge. Please use your independent medical judgment in providing your response. THIS QUERY IS PART OF THE PERMANENT MEDICAL RECORD
[2022-11-15] MEDS: Acetaminophen 325 MG TABLET 650 MG PO (08:23)
[2022-11-15] MEDS: guaiFENesin LA 600 MG TAB.ER.12H PO ×2 (09:18→20:21)
--- NOTE | 2022-11-15 10:46 | MHC.CM.PN ---
PATIENT LIVES ALONE. 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 HCP ON FILE AND VERIFIED IMM 11/14 PREVIOUSLY COMPLETED. SISTER, LISA TO PROVIDE TRANSPORT. [phone]
--- NOTE | 2022-11-15 13:46 | HO.PM.IMPN ---
Subjective Subjective Date of Service: 11/15/22 Interval History: Doing better. Able to be weaned to room air Review of Systems Denies chest pain Denies shortness of breath Denies nausea vomiting diarrhea Denies fever chills Physical Exam Vital Signs: Vital Signs: Last Vital Signs Temp 97.3 F 11/15/22 07:30 Pulse 90 11/15/22 08:44 Resp 18 11/15/22 08:44 BP 132/85 11/15/22 07:30 Pulse Ox 93 11/15/22 07:30 O2 Del Method Room Air 11/15/22 07:30 O2 Flow Rate 2 11/15/22 07:21 Oxygen Flow Rate 6 11/13/22 06:10 BMI result Body Mass Index 32.3 Const: Other: Awake alert oriented x3 no acute distress Resp: Other: Improved aeration to bases. Diminished crackles. Wheezes markedly improved Cardio: Other: No S4; positive S1-S2; no S3 murmurs rubs or gallops (RRR) GI: Other: Soft nontender nondistended normoactive bowel sounds Neuro: Other: Cranial nerves 2-12 grossly intact as tested. Motor is 5/5 all extremities. Sensation is intact. Cognition appropriate (via medical interpreter) Extrem: Other: No edema bilaterally Objective Data Active Medications Acetaminophen (Acetaminophen 325 Mg Tablet) 650 mg PO Q6H PRN PRN Reason: Pain, Mild (Pain Scale 1-3) Last Admin: 11/15/22 08:23 Dose: 650 mg Documented By: PATRICIA Apixaban (Apixaban 5 Mg Tablet) 5 mg PO BID [facility] Last Admin: 11/15/22 08:11 Dose: 5 mg Documented By: PATRICIA Atorvastatin Calcium (Atorvastatin Calcium 10 Mg Tablet) 10 mg PO BEDTIME [facility] Last Admin: 11/14/22 20:51 Dose: 10 mg Documented By: DAVE Calcium Carbonate/Cholecalciferol (Calcium + Vitamin D 250 Mg Tablet) 500 mg PO BID [facility] Last Admin: 11/15/22 08:11 Dose: 500 mg Documented By: PATRICIA Famotidine (Famotidine 20 Mg Tablet) 40 mg PO BEDTIME PRN PRN Reason: heartburn Guaifenesin (Guaifenesin La 600 Mg Tab.Er.12h) 600 mg PO BID [facility] Last Admin: 11/15/22 09:18 Dose: 600 mg Documented By: PATRICIA Cefepime HCl 2 gm/ Sodium (Chloride) 50 mls @ 100 mls/hr IV Q8H [facility] Last Infusion: 11/15/22 07:33 Dose: 0 mls/hr Documented By: PATRICIA Vancomycin HCl 1,000 mg/ (Sodium Chloride) 270 mls @ 270 mls/hr IV Q12H [facility] Last Infusion: 11/15/22 09:46 Dose: 0 mls/hr Documented By: PATRICIA Latanoprost (Latanoprost 0.005 % Ophth Evelyn 2.5 Ml Drops) 1 drop EYE-BOTH BEDTIME [facility] Last Admin: 11/14/22 21:27 Dose: 1 drop Documented By: DAVE Methylprednisolone Sodium Succinate (Methylprednisolone Sod Succ 125 Mg/2 Ml Vial) 60 mg IVPUSH Q6H [facility] Last Admin: 11/15/22 08:18 Dose: 60 mg Documented By: PATRICIA Metoclopramide HCl (Metoclopramide Hcl 10 Mg Tablet) 10 mg PO QIDACHS [facility] Last Admin: 11/15/22 11:55 Dose: 10 mg Documented By: PATRICIA Non-Formulary Medication (Linaclotide [Linzess]) 145 mcg PO DAILY [facility] Pt Own (Fluticasone- Umeclidin-Vilanter [ Trelegy Ellipta] 200 -62.5-25 Mcg 1 inhalation PO RDAILY [facility] Last Admin: 11/15/22 08:39 Dose: 1 inhalation Documented By: ROJELIO Omeprazole (Omeprazole 40 Mg Capsule.Dr) 40 mg PO DAILY@0630 [facility] Last Admin: 11/15/22 06:19 Dose: 40 mg Documented By: DAVE Pharmacy Consult (Consult Rx Perform Med Rec) 1 each MISCELLANE ONCE PRN PRN Reason: Consult order Pharmacy Consult (Consult Rx Vancomycin Dosing) 1 each MISCELLANE DAILY PRN PRN Reason: Consult order Quetiapine Fumarate (Quetiapine Fumarate 300 Mg Tablet) 300 mg PO BEDTIME [facility] Last Admin: 11/14/22 20:50 Dose: 300 mg Documented By: DAVE Sodium Chloride (0.9 % Sodium Chloride Flush 3 Ml Syringe) 3 ml IVFLUSH QSHIFT [facility] Last Admin: 11/15/22 07:33 Dose: Not Given Documented By: PATRICIA Non-Admin Reason: IV Running Sotalol HCl (Sotalol Hcl 80 Mg Tablet) 80 mg PO BID [facility] Last Admin: 11/15/22 08:11 Dose: 80 mg Documented By: PATRICIA Trazodone HCl (Trazodone Hcl 100 Mg Tablet) 200 mg PO BEDTIME PRN PRN Reason: Sleep Valsartan (Valsartan 40 Mg Tablet) 20 mg PO BID [facility]; Protocol Last Admin: 11/15/22 08:11 Dose: 20 mg Documented By: PATRICIA Labs 11/15/22 05:48 11/15/22 05:48 Labs: Laboratory Results - last 24 hr 11/15/22 11/15/22 11/15/22 05:48 05:48 05:48 MCV 84.6 MCH 27.7 MCHC 32.7 RDW 13.8 Plt Count 156 L MPV 11.0 Immature Gran % (Auto) 2.9 H Neut % (Auto) 85.8 H Lymph % (Auto) 6.1 L Nolan % (Auto) 5.1 Eos % (Auto) 0.0 Baso % (Auto) 0.1 Lymph # (Auto) 0.8 L Nolan # (Auto) 0.6 Eos # (Auto) 0.0 Baso # (Auto) 0.0 Abs Immat Gran (auto) 0.36 H Absolute Neuts (auto) 10.8 H Absolute Nucleated RBC 0.000 Nucleated RBC % (auto) 0.0 Anion Gap 11 L Estim Creat Clear Calc 95.3 Estimated GFR > 60 Fasting Glucose 124 H Calcium 8.3 L Total Bilirubin 0.6 AST 8 ALT 14 Alkaline Phosphatase 49 Total Protein 4.9 L Albumin 2.7 L Random Vancomycin 10.5 L Microbiology Microbiology Results: Microbiology 11/13/22 07:28 Blood Culture - Preliminary Blood - Venous No growth after 48 hours. 11/13/22 07:28 Blood Culture - Preliminary Blood - Venous No growth after 48 hours. Assessment and Plan (1) Right lower lobe pneumonia: Status: Acute (2) Acute exacerbation of chronic obstructive pulmonary disease: Status: Acute (3) Hypertension: Status: Acute Plan 67-year-old eritrean speaking male, with a past medical history of paroxysmal atrial fibrillation on Eliquis, nonischemic cardiomyopathy, COPD and emphysema not on home O2, presents to ER with several days of worsening shortness of breath. Workup in the ER consistent with right lower lobe infiltrate 1. Right lower lobe infiltrate/acute exacerbation of COPD -IV vancomycin/cefepime(3) -pulse dose steroids -DuoNebs q.4 hours p.r.n. 2. Paroxysmal atrial fibrillation (in backdrop of nonischemic cardiomyopathy) -rate control adequate at this time -continue sotalol as ordered. Adjust as indicated clinically -Eliquis daily 3. Hypertension -acceptable control on current therapies -continue sotalol/valsartan at outpatient doses -adjust as clinically indicated Full code Eliquis Requires ongoing hospitalization for IV antibiotics and steroids to treat right lower lobe infiltrate Time Spent With Patient Time: Total time managing care of this patient today ____ minutes. Quality Stroke Does the patient have a stroke diagnosis?: No VTE Prior VTE?: No VTE Risk Level:: Medical - moderate - high VTE Device Contraindication: Treatment Not Indicated VTE Drug Contraindication: N/A - Med Ordered
[2022-11-15] MEDS: 0.9 % Sodium Chloride Flush 3 ML SYRINGE IVFLUSH (19:41)
[2022-11-15] MEDS: Atorvastatin Calcium 10 MG TABLET PO (20:21)
[2022-11-15] MEDS: QUEtiapine Fumarate 300 MG TABLET PO (20:21)
[2022-11-15] MEDS: Latanoprost 0.005 % Ophth Sol 2.5 ML DROPS 1 DROP EYE-BOTH (20:22)
[2022-11-15] MEDS: traZODone HCL 100 MG TABLET 200 MG PO (22:58)
[2022-11-16] MEDS: methylPREDNISolone Sod Succ 125 MG/2 ML VIAL 60 MG IVPUSH ×2 (01:51→07:48)
[2022-11-16 03:45] VITALS: BP 120/80; PULSE 94; RESP 17; TEMP 36.6; O2SAT 90
[2022-11-16] MEDS: cefEPime HCl 2 GM in 0.9 % Sodium Chloride 50 ML IV (05:32)
[2022-11-16] MEDS: Omeprazole 40 MG CAPSULE.DR PO (05:37)
[2022-11-16 06:13] LABS: MANUAL DIFF FLAG NO
[2022-11-16 06:21] LABS: Basophils Percent Auto 0.1 % (0-2); Hematocrit 32.7 % (42.0-52.0); Hemoglobin 10.7 g/dl (14.0-18.0); Imm Gran Abs Auto 0.21 X10*3/uL (0.00-0.03); Imm Gran Pct Auto 2.1 % (0.0-0.4); Lymphocytes Absolute Auto 0.8 X10*3/uL (1.2-4.9); Lymphocytes Percent Auto 8.2 % (20-40); Mean Corpuscular HGB Conc 32.7 g/dl (31.0-36.0); Mean Corpuscular Hemoglobin 27.6 pg (27.0-33.0); Mean Corpuscular Volume 84.5 fL (80.0-98.0); Mean Platelet Volume 10.5 fL (9.4-12.4); Monocytes Absolute Auto 0.4 X10*3/uL (0.1-1.2); Monocytes Percent Auto 4.3 % (2-11); Neutrophils Absolute Auto 8.5 x10*3/uL (2.0-8.3); Neutrophils Percent Auto 85.3 % (45-73); Platelet Count 174 X10*3/uL (160-400); Red Blood Count 3.87 X10*6/uL (4.60-5.80); Red Cell Distribution Width 13.8 % (11.0-16.0)
[2022-11-16 06:30] LABS: Alanine Aminotransferase 19 U/L (0-40); Albumin Level 2.7 g/dL (3.5-5.0); Alkaline Phosphatase 49 U/L (39-117); Anion Gap 9 (12-20); Aspartate Amino Transferase 10 U/L (5-37); Bilirubin Total 0.7 mg/dL (0.0-1.0); Blood Urea Nitrogen 23 mg/dL (9-16); Calcium 8.2 mg/dL (8.4-10.2); Carbon Dioxide 25 mmol/L (22-29); Chloride 112 mmol/L (96-108); Creatinine Clr Calc Pharmacy 89.2; Estimated Glomerular Filt Rate > 60; Glucose Fasting 142 mg/dL (60-99); Potassium 3.9 mmol/L (3.3-5.1); Sodium 142 mmol/L (135-145)
[2022-11-16] MEDS: guaiFENesin LA 600 MG TAB.ER.12H PO (07:47)
[2022-11-16] MEDS: Metoclopramide HCl 10 MG TABLET PO ×2 (07:47→12:05)
[2022-11-16] MEDS: Sotalol HCL 80 MG TABLET PO (07:47)
[2022-11-16] MEDS: Calcium + Vitamin D 250 MG TABLET 500 MG PO (07:47)
[2022-11-16] MEDS: Valsartan 40 MG TABLET 20 MG PO (07:47)
[2022-11-16] MEDS: 0.9 % Sodium Chloride Flush 3 ML SYRINGE IVFLUSH (07:48)
[2022-11-16] MEDS: Apixaban 5 MG TABLET PO (07:48)
[2022-11-16] MEDS: vancomycin HCL 1,000 MG in 0.9 % Sodium Chloride 250 ML 270 MG IV (07:48)
[2022-11-16 07:49] VITALS: BP 127/86; PULSE 72; RESP 18; TEMP 37; O2SAT 91
[2022-11-16 07:55] VITALS: PULSE 73; RESP 18; O2SAT 91
[2022-11-16 10:34] VITALS: PULSE 73; PULSE 93; O2SAT 90; O2SAT 91
--- NOTE | 2022-11-16 11:35 | PM.DS ---
DS: Providers Provider Date of Service: 11/16/22 Date of admission: 11/13/22 10:43 Date of discharge: 11/16/22 Primary care physician: Rigoberto Madrigal MD DS: Diagnosis Discharge Diagnosis (1) Right lower lobe pneumonia: Status: Acute (2) Acute exacerbation of chronic obstructive pulmonary disease: Status: Acute (3) Hypertension: Status: Acute DS: Summary Hospital Course Hospital Course: 67-year-old tamazight speaking male, with a past medical history of paroxysmal atrial fibrillation on Eliquis, nonischemic cardiomyopathy, COPD and emphysema not on home O2, hyperlipidemia, who presents to the emergency department with complaints of worsening shortness of breath since 3:00AM this morning. Patient states that he woke up in the middle of the night and felt as though he could not breathe. He tried using his inhalers at home without any relief. He states that over the last several days he has noticed increased work of breathing with associated productive cough.? He notes a similar episode approximately 2 months ago.? Chest x-ray in emergency room consistent with right lower lobe infiltrate.? He will be admitted to general medical floor for treatment of same Hospital Course Admitted to hospital and started on antibiotics to cover community-acquired pneumonia as well as pulse dose steroids. Over the next 72 hours he progressed to the point where he no longer needed supplemental O2 as proven by a 6 minute walk by respiratory therapy. At this point time he is medically acceptable discharge home complete a course of oral antibiotics and a prednisone taper. He can follow-up with his PCP in 2 weeks Time Spent with Patient Time attestation: Total time managing care of this patient today ____ minutes. Discharge coordination time: Greater than 30 minutes Quality: Safe Use of Opioids Does Pt have an Active Cancer Diagnosis on the Problem List?: No Quality: Stroke Does the patient have a stroke diagnosis?: No Physical Exam Vital Signs: Vital Signs: Last Vital Signs Temp 98.6 F 11/16/22 07:49 Pulse 73 11/16/22 07:55 Resp 18 11/16/22 07:55 BP 127/86 11/16/22 07:49 Pulse Ox 91 L 11/16/22 07:49 O2 Del Method Nasal Cannula 11/16/22 07:49 O2 Flow Rate 2 11/16/22 07:49 Oxygen Flow Rate 6 11/13/22 06:10 BMI result Body Mass Index 32.3 Const: Other: Awake alert oriented x3 no acute distress Resp: Other: Improved aeration to bases. Diminished crackles. Wheezes markedly improved Cardio: Other: No S4; positive S1-S2; no S3 murmurs rubs or gallops (RRR) GI: Other: Soft nontender nondistended normoactive bowel sounds Neuro: Other: Cranial nerves 2-12 grossly intact as tested. Motor is 5/5 all extremities. Sensation is intact. Cognition appropriate (via produce service team member) Extrem: Other: No edema bilaterally DS: Data Data Completed and Pending Completed studies during hospitalization [Text1]: Procedures Drainage of Right Lower Lung Lobe, Via Natural or Artificial Opening Endoscopic, Diagnostic (08/26/22) Drainage of Right Middle Lung Lobe, Via Natural or Artificial Opening Endoscopic, Diagnostic (08/26/22) Extraction of Right Lower Lung Lobe, Via Natural or Artificial Opening Endoscopic, Diagnostic (08/26/22) Extraction of Right Middle Lung Lobe, Via Natural or Artificial Opening Endoscopic, Diagnostic (08/26/22) Labs on day of discharge: Laboratory Results - last 24 hr 11/16/22 11/16/22 06:02 06:02 WBC 10.0 RBC 3.87 L Hgb 10.7 L Hct 32.7 L MCV 84.5 MCH 27.6 MCHC 32.7 RDW 13.8 Plt Count 174 MPV 10.5 Immature Gran % (Auto) 2.1 H Neut % (Auto) 85.3 H Lymph % (Auto) 8.2 L Bryan % (Auto) 4.3 Eos % (Auto) 0.0 Baso % (Auto) 0.1 Lymph # (Auto) 0.8 L Bryan # (Auto) 0.4 Eos # (Auto) 0.0 Baso # (Auto) 0.0 Abs Immat Gran (auto) 0.21 H Absolute Neuts (auto) 8.5 H Absolute Nucleated RBC 0.000 Nucleated RBC % (auto) 0.0 Sodium 142 Potassium 3.9 Chloride 112 H Carbon Dioxide 25 Anion Gap 9 L BUN 23 H Creatinine 0.78 Estim Creat Clear Calc 89.2 Estimated GFR > 60 Fasting Glucose 142 H Calcium 8.2 L Total Bilirubin 0.7 AST 10 ALT 19 Alkaline Phosphatase 49 Total Protein 5.0 L Albumin 2.7 L Preliminary micro results at discharge 11/13/22 07:28 Blood Culture - Preliminary Blood - Venous No growth after 48 hours. 11/13/22 07:28 Blood Culture - Preliminary Blood - Venous No growth after 48 hours. Discharge Plan Discharge Anticipated Discharge Date/Time: 11/16/22 11:19 Patient Disposition: Home Health Service Discharge Diagnosis: COPD exacerbation secondary to RLL pneumonia Referrals: Rigoberto Madrigal MD [Primary Care Provider] - 1 Week Discharge Medications: New amoxicillin-pot clavulanate 875-125 mg tablet 1 tab PO BID Qty: 14 0RF prednisone 10 mg tablet See Rx Instructions .Route .COMPLEX Qty: 45 0RF Rx Instructions: 10 mg orally; 5 tabs p.o. daily x3 days; 4 tabs p.o. daily x3 days; 3 tabs daily x3 days; 2 tabs daily x3 days; 1 tab daily x3 days Continued albuterol sulfate [Ventolin HFA] 90 mcg/actuation HFA aerosol inhaler 2 puff INHALATION Q6H PRN (Reason: wheezing) 30 Days Qty: 8.5 11RF dexlansoprazole 60 mg capsule,biphase delayed releas 60 mg PO DAILY Qty: 90 1RF Tymlos 80 mcg (3,120 mcg/1.56 mL) pen injector 80 mcg subcut DAILY Qty: 1.56 12RF Rx Instructions: inject into abdomen; do not inject within 2 inches of belly button/navel; rotate sites Trelegy Ellipta 200-62.5-25 mcg blister with device 1 inh PO DAILY Eliquis 5 mg tablet 5 mg PO BID Qty: 60 0RF sotalol 80 mg Tablet 80 mg PO BID Qty: 80 0RF valsartan 40 mg tablet 20 mg PO BID Qty: 60 0RF famotidine 40 mg tablet 40 mg PO BEDTIME PRN (Reason: heartburn) Linzess 145 mcg capsule 145 mcg PO DAILY quetiapine 300 mg tablet 300 mg PO BEDTIME simvastatin 20 mg tablet 20 mg PO BEDTIME latanoprost 0.005 % drops 1 drp ophthalmic (eye) BEDTIME trazodone 100 mg tablet 200 mg PO BEDTIME PRN (Reason: Sleep) metoclopramide HCl 10 mg tablet 10 mg PO QIDACHS calcium carbonate-vitamin D3 600 mg-20 mcg (800 unit) tablet 1 tab PO BID Discharge Orders: Discharge Order (Routine); Ordered 11/16/22 Ordered By: Joseph Lyles Diet: Advance to usual diet Activity on Discharge: As tolerated Stand Alone Forms: Patient Portal Discharge page Care Plan Goals: Take Augmentin 875 twice daily for 7 days. Prednisone taper as ordered. Health Concerns: Follow-up with your primary care physician in 2 weeks Plan of Treatment: Continue all your medicines that he took before the hospital Assessment: See discharge summary
--- NOTE | 2022-11-16 13:42 | MHC.CM.PN ---
PT WILL DC HOME TODAY WITH NO SERVICES VIA FAMILY TRANSPORT
== END 2022-11-16 13:05 | disposition home health service (06) | DRG 193 ==
LOC: HO.ED 08:38 → HO.EDOVER 10:51 → HO.S3 17:06
PROVIDERS: Emergency Medicine; Physician Assistant Medical; Admitting Provider Hospitalist; Emergency Provider Emergency Medicine Emergency Medical Services; PCP Internal Medicine; Visit Provider Hospitalist
DX: J18.9 Pneumonia, unspecified organism (principal); J96.01 Acute respiratory failure with hypoxia; I42.8 Other cardiomyopathies; I10 Essential (primary) hypertension; J43.9 Emphysema, unspecified; E78.5 Hyperlipidemia, unspecified; I48.0 Paroxysmal atrial fibrillation; Z20.822 Contact with and (suspected) exposure to COVID-19; Z79.01 Long term (current) use of anticoagulants; Z87.891 Personal history of nicotine dependence; Z79.899 Other long term (current) drug therapy
CPT/HCPCS: 0241U; 36415; 71045; 80053; 80202; 83605; 83880; 84145; 84484; 85007; 85025; 85027; 87040; 93005; 94640; 99285; J0456; J0692; J2920; J2930; J3370

== ENCOUNTER 2022-11-20 09:23 | Emergency (ER) | payer MEDICARE, MEDICAID, SELFPAY ==
--- NOTE | ~2022-11-20 | CT_ITS ---
EXAMINATION: CT LUMBAR SPINE CLINICAL INFORMATION: Pain. History of kyphoplasty COMPARISON: Previous lumbar spine x-ray 08/21/2022 TECHNIQUE: Axial images through the lumbar spine following 85 mL IV Omnipaque 350 contrast. Sagittal and coronal reconstructions on the technologist workstation were performed. This CT examination was performed using dose optimization techniques as appropriate, variously including the following: *Automated exposure control *Adjustment of mA and/or kV according to patient size (this includes techniques or standardized protocols for targeted exams where dose is matched to indication/reason for exam; i.e. extremities or head) *Use of iterative reconstruction technique DLP: 428 mGy-cm FINDINGS: There is a moderate L1 vertebral body compression fracture. Compression is increased from 08/21/2022. There is a mild compression fracture of the superior endplate of the L4 vertebral body. This appears new from 08/21/2022 exam. There is degenerative disc disease at L4-L5 and L5-S1. There is lower lumbar spine facet arthritis. There is mild curvature of the lumbar sacral spine to the right. At T12-L1 no disc herniation protrusion or bulge. Spinal canal, lateral recesses and neural foramen are patent At L1-L2 no disc herniation protrusion or bulge. Moderate compression fracture of L1. No retropulsion of bone. Spinal canal, lateral recesses and foramen are patent. At L2-L3 no disc herniation protrusion or bulge. Spinal canal, lateral recesses and neural foramen are patent. At L3-L4 there is mild diffuse disc bulge. No disc herniation. There is mild spinal stenosis due to short pedicles and facet arthritis. At L4-L5 there is diffuse disc bulge. There is no disc herniation. There is moderate secondary spinal stenosis due to disc bulge, short pedicles and facet arthritis. L5-S1 there is diffuse disc bulge. No disc herniation. No spinal stenosis. There is bilateral facet arthritis. 1 cm low-attenuation left renal lesion probably representing a cyst. No imaging follow-up. Mild atherosclerotic disease of the abdominal aorta. No aneurysm. Paraspinal soft tissues are normal. CT/CT lumbar spine w IV con IMPRESSION: Moderate L1 vertebral body compression fracture increased from previous x-ray 08/21/2022. Mild L4 vertebral body compression fracture new from 08/21/2022 exam. Multilevel degenerative disc disease and facet arthritis of the lower lumbar spine.
--- NOTE | ~2022-11-20 | CT_ITS ---
EXAMINATION: CT THORACIC SPINE CLINICAL INFORMATION: Pain. History of kyphoplasty. COMPARISON: Previous CT scans of the thoracic spine from 09/20/2022 TECHNIQUE: Axial images through the thoracic spine following 85 mL Omnipaque 350 intravenous contrast. Sagittal and coronal reconstructions on the technologist workstation were performed. This CT examination was performed using dose optimization techniques as appropriate, variously including the following: *Automated exposure control *Adjustment of mA and/or kV according to patient size (this includes techniques or standardized protocols for targeted exams where dose is matched to indication/reason for exam; i.e. extremities or head) *Use of iterative reconstruction technique DLP: 440 mGy-cm FINDINGS: There are postkyphoplasty changes and compression fractures of the T7 and T9 vertebral bodies. This appears similar to postprocedure exam 09/20/2022. No extravasation of cement is seen. No new compression fracture. There is mild curvature of the proximal and mid thoracic spine to the left. Bone alignment is otherwise normal. There is mild degenerative spondylosis and disc space narrowing of the mid thoracic spine. No disc herniation is seen. Paraspinal soft tissues are normal. The thoracic aorta is upper normal in size. There are very small bilateral pleural effusions. There is evidence of emphysema. There is a partially calcified 5 x 10 mm right upper lobe nodule axial image 40 series 6. There may be a small esophageal hernia. There is right lower lobe atelectasis. There is question 5 mm right lower lobe nodule axial image [address]/CT thoracic spine w IV con IMPRESSION: Stable T7 and T9 vertebral body compression fractures and post kyphoplasty change from August 2022. Fleischner guidelines were followed.
--- NOTE | ~2022-11-20 | XR_ITS ---
EXAMINATION: XR CHEST CLINICAL INFORMATION: Cough. Recent pneumonia. COMPARISON: November 13, 2022 TECHNIQUE: AP portable view of the chest was obtained. FINDINGS: There has been near complete resolution of right lung disease with some residual faint density present. There is a faint region of density seen within the mid left lung but which appears be vascular in nature. There are changes of emphysema present bilaterally. Heart normal size. No evidence of pulmonary edema. No pneumothorax or pleural effusion. Status post kyphoplasty at multiple levels. XR/XR chest 1V IMPRESSION: Resolving right lung disease.
--- NOTE | 2022-11-20 09:28 | ED_ITS ---
HPI - General Adult General Chief complaint: Back Pain/Injury Stated complaint: INCREASED LOW BACK PAIN,FELT POP 2 DAYS AGO Time Seen by Provider: 11/20/22 09:28 Source: patient Limitations: language barrier History of Present Illness HPI narrative: 59-year-old male with complex medical history presents the ER with worsening lower back pain. Patient states while in bed he dropped his phone when he twisted to try to gravity pain was sharp in 04/01. Patient denies any loss of bowel movements urine incontinence. Patient has not longstanding history of multiple compression fractures of thoracic spine and lumbar spine. Patient has had vertebroplasty performed on compression fractures of the thoracic spines. Patient was referred to Neurosurgery for possible surgical management of continued back issues but was unable to go to the appointment secondary to inability of transportation and walking. Patient states he is interested in rehab runny helping get to have this back pain improved. Patient states he is on no analgesic at this time at home. Patient does have a longstanding history of AFib and is on Eliquis. Patient also has a history of COPD, osteoporosis, peptic ulcer disease, glaucoma. Patient was seen by the pain specialist to [facility] on 10/21/2022 who recommended neurosurgery follow-up. Related Data Home Medications Medication Instructions Recorded Confirmed latanoprost 0.005 % eye drops 1 drp ophthalmic (eye) BEDTIME 03/27/20 11/20/22 quetiapine 300 mg tablet 300 mg PO BEDTIME 03/27/20 11/20/22 simvastatin 20 mg tablet 20 mg PO BEDTIME 03/27/20 11/20/22 metoclopramide HCl 10 mg tablet 10 mg PO QIDACHS 10/21/22 11/20/22 trazodone 100 mg tablet 200 mg PO BEDTIME PRN Sleep 10/21/22 11/20/22 calcium carbonate 600 mg-vitamin 1 tab PO BID 10/29/22 11/20/22 D3 20 mcg (800 unit) tablet famotidine 40 mg tablet 40 mg PO BEDTIME PRN heartburn 11/13/22 11/20/22 linaclotide 145 mcg capsule 145 mcg PO DAILY@0600 11/13/22 11/20/22 (Linzess) dexlansoprazole 60 mg 60 mg PO DAILY@0630 11/20/22 11/20/22 capsule,biphase delayed release Previous Rx's Medication Instructions Recorded apixaban 5 mg tablet (Eliquis) 5 mg PO BID #60 tabs 05/06/22 sotalol 80 mg tablet 80 mg PO BID #80 tabs 06/01/22 valsartan 40 mg tablet 20 mg PO BID #60 tabs 06/01/22 albuterol sulfate 90 mcg/actuation 2 puff inhalation Q6H PRN wheezing 09/26/22 aerosol inhaler (Ventolin HFA) 30 days #8.5 grams abaloparatide (Tymlos) 80 mcg (0.04 mL) subcut DAILY 11/13/22 #1.56 mL amoxicillin 875 mg-potassium 1 tab PO BID #14 tabs 11/16/22 clavulanate 125 mg tablet prednisone 10 mg tablet See Rx Instructions .Route 11/16/22 .COMPLEX #45 tabs Trelegy Ellipta 200 mcg-62.5 1 ea PO DAILY #60 ea 11/19/22 mcg-25 mcg powder for inhalation ([id number]) Allergies Allergy/AdvReac Type Severity Reaction Status Date / Time No Known Allergies Allergy Verified 11/13/22 06:25 [No Known Allergies*] Review of Systems Review of Systems: General: No fever, no chills ENT: No sore throat, no ear pain Cardiovascular: No chest pain, no peripheral edema, no shortness of breath Respiratory: No dyspnea, no sputum production, no cough Muscle skeletal: Diffuse back pain mid to lower GI: No abdominal pain, no nausea vomiting, no diarrhea : No dysuria, no urgency, no frequency, no urinary incontinence Psychiatric: No depression, no suicidal ideation, no homicidal ideation Skin: No rash Immunology: No immunocompromised Hematology: No bleeding, no bruising PMFSH Past Medical History Medical History CHF exacerbation Compression fracture of body of thoracic vertebra Compression fracture of thoracic spine, non-traumatic Constipation COPD (chronic obstructive pulmonary disease) Depression Dyspnea GERD (gastroesophageal reflux disease) History of alcohol abuse Hyperlipidemia Hypertension Nonischemic cardiomyopathy Osteoporosis Personal history of nicotine dependence Pneumonia Pneumonia Pulmonary nodules Tubular adenoma of colon Surgical History History of appendectomy History of gastric surgery History of surgery on left wrist (~03/21/10) Hx of cataract surgery (~07/02/10) Hx of colonoscopy (~02/13/06) Hx of endoscopy Family History Family History Mother Renal failure Father History of depression Brother Colon cancer Social History Social History Household Members: None Housing: Apartment Are you a primary neonatal intensive care nurse to a significant other at home: No Do you presently have visiting nurse or other home services: No Alcohol intake: never Patient Tobacco Use Status: Former Tobacco user Quit Date: 2021 Tobacco use type: Cigarette Cigarette Packs Per Day: 0.5 Years Smoked: 55 Smoked in Last 30 Days: No e-Cigarette/Vaping Use: Former Use Second Hand Smoke Exposure: No Use of substances other than those prescribed or required for medical reasons: No Advance Directives: Yes Advance Directives on File: Yes Advance Directives Date on File: 09/02/22 service: No Current occupational status: unemployed Physical Exam ED Vital Signs: Vital Signs - 24 hr 11/20/22 09:38 11/20/22 11:11 11/20/22 13:44 Temperature 98.1 F 97.6 F Pulse Rate 74 73 63 Respiratory Rate 18 18 18 Blood Pressure 137/89 136/98 H Pulse Oximetry 95 92 Oxygen Delivery Method Room Air Room Air 11/20/22 13:45 11/20/22 13:46 Temperature Pulse Rate Respiratory Rate 19 Blood Pressure 145/101 H Pulse Oximetry Oxygen Delivery Method BMI result Body Mass Index 27.4 General appearance: Awake, alert, cooperative, in no acute distress Skin: Warm, dry, no rash Eyes: PERRL, EOMI, no icterus ENT: Oropharynx normal, uvula midline Neck: Soft supple full range of motion Pulmonary: Breath sounds clear to auscultation bilaterally, no accessory muscle use Cardiovascular: Regular rate and rhythm, no murmurs and rubs Abdomen: Soft nontender, no rebound or guarding, positive bowel sounds Extremities: Mid back to lower lumbar paraspinal muscle tenderness with midline tenderness. Pain increases with any range of motion. 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 Patient is post follow-up with Neurosurgery for possible surgical intervention. Patient states while twisting in bed today pain increase 10/10 was unable to ambulate or move. Patient denies loss of bowel movements urine incontinence. On exam there is no obvious focal finding or neuro deficit. Case discussed with Dr. Mendoza who agrees with CT scan with IV contrast of the thoracic and lumbar spine and possible placement in rehab. Will get case management involved and also do physical therapy eval once CT scans are back. At this time will treat with 2 mg morphine IV CBC BMP UA in COVID test is pending at this time. 12:[address] scan results are still pending patient signed out to the main ER at this time physical therapy consult will be need to be ordered once CTs are back 1434: Patient's CT lumbar spine showed worsening L1 compression fracture and a mild L4 compression fracture. Patient's thoracic lumbar spine showed old thoracic vertebrae fractures but nothing acute. Patient requesting to be placed in short term rehab. Patient placed under physician observation. PT ordered. Med rec ordered. Diet ordered. Medications Administered Discontinued Medications Generic Name Dose Route Start Last Admin Trade Name Pepitoq PRN Reason Stop Dose Admin Fentanyl 25 mcg 11/20/22 13:06 11/20/22 13:45 Fentanyl Citrate/Pf 100 Mcg/2 Ml Vial IVPUSH 11/20/22 13:07 25 mcg ONCE ONE Administration Protocol Iohexol 100 ml 11/20/22 11:52 11/20/22 11:53 Iohexol 350 Mg/Ml 100 Ml Infus..Btl IV 11/20/22 11:53 85 ml ONCE ONE Administration Morphine Sulfate 2 mg 11/20/22 09:59 11/20/22 10:50 Morphine Sulfate 2 Mg/Ml Cartridge IVPUSH 11/20/22 10:00 2 mg ONCE ONE Administration Protocol Medical Decision Making Lab Data 11/20/22 10:46 11/20/22 10:46 Labs: Lab Results 11/20/22 11/20/22 11/20/22 Range/Units 10:46 10:46 10:46 WBC 7.5 (4.8-10.8) X10*3/uL RBC 5.06 D (4.60-5.80) X10*6/uL Hgb 14.0 D (14.0-18.0) g/dl Hct 42.9 D (42.0-52.0) % MCV 84.8 (80.0-98.0) fL MCH 27.7 (27.0-33.0) pg MCHC 32.6 (31.0-36.0) g/dl RDW 14.0 (11.0-16.0) % Plt Count 185 (160-400) X10*3/uL MPV 10.9 (9.4-12.4) fL Immature Gran % (Auto) 3.3 H (0.0-0.4) % Neut % (Auto) 65.3 (45-73) % Lymph % (Auto) 22.0 (20-40) % [place] % (Auto) 8.2 (2-11) % Eos % (Auto) 0.9 (0-4) % Baso % (Auto) 0.3 (0-2) % Lymph # (Auto) 1.6 (1.2-4.9) X10*3/uL [place] # (Auto) 0.6 (0.1-1.2) X10*3/uL Eos # (Auto) 0.1 (0.0-0.4) X10*3/uL Baso # (Auto) 0.0 (0.0-0.2) X10*3/uL Abs Immat Gran (auto) 0.25 H (0.00-0.03) X10*3/uL Absolute Neuts (auto) 4.9 (2.0-8.3) x10*3/uL Absolute Nucleated RBC 0.000 (0.0-0.012) X10*3/uL Nucleated RBC % (auto) 0.0 (0.0-0.2) /100WBC Sodium 144 (135-145) mmol/L Potassium 3.8 (3.3-5.1) mmol/L Chloride 109 H (96-108) mmol/L Carbon Dioxide 26 (22-29) mmol/L Anion Gap 13 (12-20) BUN 20 H (9-16) mg/dL Creatinine 0.81 (0.5-1.4) mg/dL Estim Creat Clear Calc 92.9 Estimated GFR > 60 Random Glucose 90 (60-115) mg/dL Calcium 8.6 (8.4-10.2) mg/dL Urine Color Urine Appearance Urine pH (5.0-9.0) Ur Specific Beck[place] (1.005-1.025) Urine Protein (Neg-Trace) mg/dL Urine Glucose (UA) (Negative) mg/dL Urine Ketones (Negative) mg/dL Urine Blood (Negative) Urine Nitrite (Negative) Ur Leukocyte Esterase (Negative) Urine RBC (0-2) /HPF Urine WBC (0-5) /HPF Ur Squamous Epith Cells (0-2) /HPF Urine Bacteria (None Seen) Hyaline Casts (0-2) /LPF COVID-19 (LOIDA) Negative (Negative) COVID-19 Clin Com See Note 11/20/22 Range/Units 12:15 WBC (4.8-10.8) X10*3/uL RBC (4.60-5.80) X10*6/uL Hgb (14.0-18.0) g/dl Hct (42.0-52.0) % MCV (80.0-98.0) fL MCH (27.0-33.0) pg MCHC (31.0-36.0) g/dl RDW (11.0-16.0) % Plt Count (160-400) X10*3/uL MPV (9.4-12.4) fL Immature Gran % (Auto) (0.0-0.4) % Neut % (Auto) (45-73) % Lymph % (Auto) (20-40) % [place]lands % (Auto) (2-11) % Eos % (Auto) (0-4) % Baso % (Auto) (0-2) % Lymph # (Auto) (1.2-4.9) X10*3/uL [place]lands # (Auto) (0.1-1.2) X10*3/uL Eos # (Auto) (0.0-0.4) X10*3/uL Baso # (Auto) (0.0-0.2) X10*3/uL Abs Immat Gran (auto) (0.00-0.03) X10*3/uL Absolute Neuts (auto) (2.0-8.3) x10*3/uL Absolute Nucleated RBC (0.0-0.012) X10*3/uL Nucleated RBC % (auto) (0.0-0.2) /100WBC Sodium (135-145) mmol/L Potassium (3.3-5.1) mmol/L Chloride (96-108) mmol/L Carbon Dioxide (22-29) mmol/L Anion Gap (12-20) BUN (9-16) mg/dL Creatinine (0.5-1.4) mg/dL Estim Creat Clear Calc Estimated GFR Random Glucose (60-115) mg/dL Calcium (8.4-10.2) mg/dL Urine Color Yellow Urine Appearance Clear Urine pH 6.5 (5.0-9.0) Ur Specific Beck[place] 1.020 (1.005-1.025) Urine Protein Trace (Neg-Trace) mg/dL Urine Glucose (UA) Negative (Negative) mg/dL Urine Ketones Negative (Negative) mg/dL Urine Blood Trace H (Negative) Urine Nitrite Negative (Negative) Ur Leukocyte Esterase Negative (Negative) Urine RBC 11-20 H (0-2) /HPF Urine WBC 0-5 (0-5) /HPF Ur Squamous Epith Cells 0-2 (0-2) /HPF Urine Bacteria None Seen (None Seen) Hyaline Casts 0-2 (0-2) /LPF COVID-19 (LOIDA) (Negative) COVID-19 Clin Com Discharge Plan Discharge Clinical Impression: Back pain, Compression fracture of lumbar vertebra Patient Disposition: Still a Patient Prescriptions: No Action albuterol sulfate [Ventolin HFA] 90 mcg/actuation HFA aerosol inhaler 2 puff INHALATION Q6H PRN (Reason: wheezing) 30 Days Qty: 8.5 11RF Tymlos 80 mcg (3,120 mcg/1.56 mL) pen injector 80 mcg subcut DAILY Qty: 1.56 12RF Rx Instructions: inject into abdomen; do not inject within 2 inches of belly button/navel; rot ate sites Trelegy Ellipta 200-62.5-25 mcg blister with device 1 ea PO DAILY Qty: 60 0RF Eliquis 5 mg tablet 5 mg PO BID Qty: 60 0RF sotalol 80 mg Tablet 80 mg PO BID Qty: 80 0RF valsartan 40 mg tablet 20 mg PO BID Qty: 60 0RF famotidine 40 mg tablet 40 mg PO BEDTIME PRN (Reason: heartburn) Linzess 145 mcg capsule 145 mcg PO DAILY@0600 amoxicillin-pot clavulanate 875-125 mg tablet 1 tab PO BID Qty: 14 0RF Rx Instructions: 7 day treatment starting 11/17/22 prednisone 10 mg tablet See Rx Instructions .Route .COMPLEX Qty: 45 0RF Rx Instructions: 10 mg orally; 5 tabs p.o. daily x3 days; 4 tabs p.o. daily x3 days; 3 tabs daily x3 days; 2 tabs daily x3 days; 1 tab daily x3 days (starting on 11/17) dexlansoprazole 60 mg capsule,biphase delayed releas 60 mg PO DAILY@0630 quetiapine 300 mg tablet 300 mg PO BEDTIME simvastatin 20 mg tablet 20 mg PO BEDTIME latanoprost 0.005 % drops 1 drp ophthalmic (eye) BEDTIME trazodone 100 mg tablet 200 mg PO BEDTIME PRN (Reason: Sleep) metoclopramide HCl 10 mg tablet 10 mg PO QIDACHS calcium carbonate-vitamin D3 600 mg-20 mcg (800 unit) tablet 1 tab PO BID
[2022-11-20 09:38] VITALS: BP 118/78; BP 137/89; PULSE 74; PULSE 91; RESP 18; TEMP 36.7; O2SAT 95; O2SAT 96; BMI 27.4
[2022-11-20] MEDS: Morphine Sulfate 2 MG/ML CARTRIDGE IVPUSH (10:50)
[2022-11-20 10:52] LABS: MANUAL DIFF FLAG NO
[2022-11-20 10:54] LABS: Basophils Percent Auto 0.3 % (0-2); Eosinophils Absolute Auto 0.1 X10*3/uL (0.0-0.4); Eosinophils Percent Auto 0.9 % (0-4); Hematocrit 42.9 % (42.0-52.0); Imm Gran Abs Auto 0.25 X10*3/uL (0.00-0.03); Imm Gran Pct Auto 3.3 % (0.0-0.4); Lymphocytes Absolute Auto 1.6 X10*3/uL (1.2-4.9); Mean Corpuscular HGB Conc 32.6 g/dl (31.0-36.0); Mean Corpuscular Hemoglobin 27.7 pg (27.0-33.0); Mean Corpuscular Volume 84.8 fL (80.0-98.0); Mean Platelet Volume 10.9 fL (9.4-12.4); Monocytes Absolute Auto 0.6 X10*3/uL (0.1-1.2); Monocytes Percent Auto 8.2 % (2-11); Neutrophils Absolute Auto 4.9 x10*3/uL (2.0-8.3); Neutrophils Percent Auto 65.3 % (45-73); Platelet Count 185 X10*3/uL (160-400); Red Blood Count 5.06 X10*6/uL (4.60-5.80); White Blood Count 7.5 X10*3/uL (4.8-10.8)
[2022-11-20 11:11] VITALS: BP 136/98; PULSE 73; RESP 18; TEMP 36.4; O2SAT 92
[2022-11-20 11:13] LABS: Anion Gap 13 (12-20); Blood Urea Nitrogen 20 mg/dL (9-16); Calcium 8.6 mg/dL (8.4-10.2); Carbon Dioxide 26 mmol/L (22-29); Chloride 109 mmol/L (96-108); Creatinine Clr Calc Pharmacy 92.9; Estimated Glomerular Filt Rate > 60; Glucose Random 90 mg/dL (60-115); Potassium 3.8 mmol/L (3.3-5.1); Sodium 144 mmol/L (135-145)
[2022-11-20 11:15] LABS: COVID-19 Test Negative (Negative); IDNOW Serial# 08D9AD1C
[2022-11-20] MEDS: iohexoL 350 MG/ML 100 ML INFUS..BTL IV (11:53)
[2022-11-20 12:23] LABS: Appearance Urine Clear; Color Urine Yellow; Glucose Urine UA Negative (Negative); Leukocyte Esterase Urine Negative (Negative); Nitrite Urine Negative (Negative); PH 6.5 (5.0-9.0); UMIC TRIGGER UACC YES; Urine Blood Trace (Negative); Urine Ketones Negative (Negative); Urine Protein Trace mg/dL (Neg-Trace)
[2022-11-20 12:26] LABS: Bacteria Urine None Seen (None Seen); Hyaline Casts Urine 0-2 /LPF (0-2); Squamous Epithelial Cell Urine 0-2 /HPF (0-2); WBC Urine 0-5 /HPF (0-5)
--- NOTE | 2022-11-20 13:20 | PHA.MEDREC ---
Pharmacy Consult ? Medication Reconciliation Pharmacy has completed the medication reconciliation. Pt was here last week. Med rec last done on 11/13 and pt discharged on 11/15. Used last discharge and claim history to complete med rec.
--- NOTE | 2022-11-20 13:34 | PC.NURSE ---
continues to c/o back pain. provider aware. spo2 probe in place spo2 > 95% ra. rr wnl.
[2022-11-20 13:44] VITALS: PULSE 63; RESP 18
[2022-11-20 13:45] VITALS: RESP 19
[2022-11-20] MEDS: fentaNYL citrate/PF 100 MCG/2 ML VIAL 25 MCG IVPUSH (13:45)
[2022-11-20 13:46] VITALS: BP 145/101
[2022-11-20 19:08] VITALS: BP 136/90; PULSE 70; RESP 18; O2SAT 95
--- NOTE | 2022-11-20 19:49 | PC.NURSE ---
meds ordered. he has not started trymlos at home, liness and trelegy will be brought in tmrw. these are not supplied in pharmacy. hospital bed acquired. pt c/o ongoing lumbar pain.
[2022-11-20] MEDS: Apixaban 5 MG TABLET PO (21:37)
[2022-11-20] MEDS: Calcium + Vitamin D 250 MG TABLET 500 MG PO (21:37)
[2022-11-20] MEDS: Metoclopramide HCl 10 MG TABLET PO (21:38)
[2022-11-20] MEDS: oxyCODONE HCl Immed Release 5 MG TABLET PO (21:38)
[2022-11-20] MEDS: Atorvastatin Calcium 10 MG TABLET PO (21:38)
[2022-11-20] MEDS: QUEtiapine Fumarate 300 MG TABLET PO (21:38)
[2022-11-20] MEDS: Sotalol HCL 80 MG TABLET PO (21:38)
[2022-11-20] MEDS: Valsartan 40 MG TABLET 20 MG PO (21:38)
[2022-11-20] MEDS: traZODone HCL 100 MG TABLET 200 MG PO (21:38)
[2022-11-20] MEDS: Latanoprost 0.005 % Ophth Sol 2.5 ML DROPS 1 DROP EYE-BOTH (21:38)
[2022-11-20] MEDS: Lidocaine 4 % Patch ADH..PATCH 1 PATCH TRANSDERMA (21:38)
--- NOTE | 2022-11-20 22:25 | MHC.CM.ED ---
CM met with patient with biomedical engineering technologist, as patient is Armenian speaking. Pt sister/HCP Kim Ortez was present and speaks Telugu. She is also his QUALITY REP, 11.5 hours/week through [employer]. Pt lives alone. Uses a walker. Moderna x3/Pfizer x1. HCP on file. Pt was recently inpatient at [facility] 11/13-11/16 for pneumonia. Pt has multiple compression FX. D/C home. Worsening pain and difficulty ambulating. Returned to ED. Agreeable to STR. PT recommends STR. Requests local facilities. Referrals made to local facilities, with [facility] patient choice. CM will follow for discharge planning.
[2022-11-21 00:07] VITALS: BP 122/83; PULSE 74; RESP 14; TEMP 36.4; O2SAT 95
[2022-11-21] MEDS: oxyCODONE HCl Immed Release 5 MG TABLET PO ×2 (05:54→12:08)
[2022-11-21] MEDS: Omeprazole 40 MG CAPSULE.DR PO (05:54)
--- NOTE | 2022-11-21 06:02 | PC.NURSE ---
Report given to
[2022-11-21 06:14] VITALS: BP 123/92; PULSE 60; RESP 16; TEMP 36.4; O2SAT 93
--- NOTE | 2022-11-21 06:41 | PC.NURSE ---
Assumed care from ER nurse Isabella. Pt arrives A&OX3, calm and cooperative. He is on a geodetic computator, VSS. Maintaining sats on RA, He was recently medicated in ED right before transfer. Pt repositioned and currently lying in bed with eyes closed. Will report to oncoming RN. Safety precautions maintained.
[2022-11-21] MEDS: Calcium + Vitamin D 250 MG TABLET 500 MG PO (10:11)
[2022-11-21] MEDS: Docusate Sodium 100 MG CAPSULE PO (10:11)
[2022-11-21] MEDS: Apixaban 5 MG TABLET PO (10:11)
[2022-11-21] MEDS: Sotalol HCL 80 MG TABLET PO (10:17)
[2022-11-21] MEDS: Valsartan 40 MG TABLET 20 MG PO (10:17)
[2022-11-21] MEDS: Metoclopramide HCl 10 MG TABLET PO (10:17)
--- NOTE | 2022-11-21 11:11 | MHC.CM.ED ---
Patient remains in ER overflow. Physical therapy is rec STR. Referral already sent out in [facility]. Patient is requesting to stay in [place]. At this time, [facility] and [facility] are able to offer a bed in [place], Met with patient and sister, Claudia in regards to discharge planning. Patient is declining math specialist at this time. Patient and Claduia choose [facility] [place]. Patient can leave at 3pm. Kaitlin GAGE booked. Med nec with chart. Patient, sister Claudia, Merly KATZ and Itzel YOUNG aware. Patient has medication tymlos ordered. This was recently ordered by patient's doctor. However, the insurance only approved this prescription today. This medication has not bee filled by the pharmacy yet. Itzel YOUNG, will put this med on hold. Continue to monitor for d/c needs.
[2022-11-21 12:44] VITALS: BP 116/85; PULSE 85; RESP 20; TEMP 36.7; O2SAT 92
== END 2022-11-21 15:10 | disposition skilled nursing facility (03) ==
PROVIDERS: Physician Assistant; Emergency Provider Emergency Medicine; PCP Internal Medicine
DX: M54.50 Low back pain, unspecified (principal); M48.56XA Collapsed vertebra, not elsewhere classified, lumbar region, initial encounter for fracture; Z20.822 Contact with and (suspected) exposure to COVID-19; I48.91 Unspecified atrial fibrillation; F17.200 Nicotine dependence, unspecified, uncomplicated; Z79.899 Other long term (current) drug therapy
CPT/HCPCS: 71045; 72129; 72132; 80048; 81001; 85025; 87635; 96374; 97162; 99284; J2270; J3010; Q9967

== ENCOUNTER 2022-12-26 08:34 | Outpatient (REF) | payer MEDICARE, MEDICAID, SELFPAY ==
[2022-12-26 10:17] LABS: Alanine Aminotransferase 18 U/L (0-40); Albumin Level 3.8 g/dL (3.5-5.0); Alkaline Phosphatase 100 U/L (39-117); Anion Gap 11 (12-20); Aspartate Amino Transferase 17 U/L (5-37); Bilirubin Total 0.8 mg/dL (0.0-1.0); Blood Urea Nitrogen 19 mg/dL (9-16); Calcium 9.4 mg/dL (8.4-10.2); Carbon Dioxide 23 mmol/L (22-29); Chloride 110 mmol/L (96-108); Estimated Glomerular Filt Rate > 60; Glucose Random 115 mg/dL (60-115); Iron 45 mcg/dL (45-160); Percent Iron Saturation 14 % (15-50); Potassium 4.3 mmol/L (3.3-5.1); Sodium 140 mmol/L (135-145); Total Iron Binding Capacity 325 mcg/dL (228-428); Total Protein 7.4 g/dL (6.5-8.0); Unsaturated Iron Binding 280 ug/dL
[2022-12-26 10:25] LABS: Ferritin 104 ng/mL (20-250)
== END 2022-12-26 08:35 | disposition home or self-care (01) ==
LOC: HO.LAB 08:34
PROVIDERS: Absent Provider Urology; PCP Student in an Organized Health Care Education/Training Program; Visit Provider Student in an Organized Health Care Education/Training Program
DX: Z12.5 Encounter for screening for malignant neoplasm of prostate (principal); D50.9 Iron deficiency anemia, unspecified
CPT/HCPCS: 36415; 80053; 82728; 83540; 84153; 85025

== ENCOUNTER 2022-12-27 14:31 | Outpatient (REF) | payer MEDICARE, MEDICAID, SELFPAY | END 2022-12-27 14:32 | disposition home or self-care (01) | LOC: HO.LNP 14:31 | PROVIDERS: Visit Provider Student in an Organized Health Care Education/Training Program | DX: D50.9 Iron deficiency anemia, unspecified (principal) | CPT/HCPCS: 82274 ==

== ENCOUNTER 2023-01-08 10:28 | Outpatient (AMB) | payer MEDICARE, MEDICAID, SELFPAY ==
[2023-01-08 10:32] VITALS: BP 99/75; PULSE 92; BMI 25.6
--- NOTE | 2023-01-08 10:32 | MHC.OFFVIS ---
Intake Vital Signs 01/08/23 10:32 Height 5 ft 11 in Weight 183 lb 13.848 oz BMI 25.6 BP 99/75 Blood Pressure Location Lt brachial Position Sitting Pulse 92 Intake Visit Reasons: pt req follow up Intake Note: Avery presents in office as a est.patient for medication f/u PT CC: Patient reports feeling better from GERD since he stopped drinking alcohol and smoking cigarettes. pt denies any other GI Issues Paper Products Machine Operator Required: Yes Paper Products Machine Operator Name: sister Accompanied by: Sister Allergies No Known Allergies [No Known Allergies*] Allergy (Verified 11/13/22 06:25) HPI pt req follow up HPI Details Assessment & Plan (1) Chronic idiopathic constipation: ?Code(s): K59.04 - Chronic idiopathic constipation ?Plan: He says he has had a hard time.? He was drinking and fell and injured his collarbone on the right, he also ended up being hospitalized because he went into AFib been having cardiac problems.? He admits that he was drinking 6 or more beers at least 2 or 3 times a week? I was out of control. ? He has been having more trouble with his stomach but he admits that this is getting better since he stopped alcohol.? This does prompt us to discuss how irritating alcoholism GI system and it is also very bad for his heart.? He may have a element of gastropathy relative to right-sided heart failure as well.? He continues on his Dexilant.? I will add a dose of famotidine to take as needed since he says the heartburn now is coming and going intermittently.? He continues on Linzess 145 micro g and again says that it times gives him diarrhea.? I offered to lower the dose but he adamantly does not want to do this saying ?I am used to it as it is. ?? However I keep letting him know that this is an option going forward. He continues on simethicone is well with good control of his bloating. His colonoscopy is upcoming and I will see him after the procedure sometime in June or early July. (2) Erosive esophagitis: ?Code(s): K22.10 - Ulcer of esophagus without bleeding (3) Small bowel motility disorder: ?Code(s): K59.9 - Functional intestinal disorder, unspecified (4) Tubular adenoma of colon: ?Comment: 2016 scope = TA repeat 5 years aeb ?Code(s): D12.6 - Benign neoplasm of colon, unspecified ? ? ? Medications: New famotidine (Pepcid ) 40 mg? PO BEDTIME PRN 30 tabs 6RF he artburn K22.10 - Ulcer of esophagus without bleeding ? COLONOSCOPY ? Was scheduled for 12/18/2022? ? BIOPSY TODAY'S VISIT [place] #His sister Kim translates per pt request. . He fell and developed several compression fx of the thoracic spine. He was in care home facility and had to cancel his colonoscopy that was scheduled for 11/2022. He stopped smoking and drinking ETOH and is taking his medication more regularly since his sister stared taking care of him. GERD is better. HE continues on Dexilant, reglan, and LInzess 145 micro g. He has received a letter that he needs a PA for the LInzess and we will work on this. He is newly on Eliquis for Afib with rapid rapid ventricular response and he has cardiomegaly. His sister said he drank a LOT of beer, never had transaminitis?? Wants to put of colonoscopy r/t back pain and mobility, offered Cologuard but he does not want, will re consider in 6 mos. Over due as should have had repeat in 2021 ROV 6 mos PFSH Medical History CHF exacerbation Compression fracture of body of thoracic vertebra Compression fracture of thoracic spine, non-traumatic Constipation COPD (chronic obstructive pulmonary disease) Depression Dyspnea GERD (gastroesophageal reflux disease) History of alcohol abuse Hyperlipidemia Hypertension Nonischemic cardiomyopathy Osteoporosis Personal history of nicotine dependence Pneumonia Pneumonia Pulmonary nodules Tubular adenoma of colon Surgical History History of appendectomy History of gastric surgery History of surgery on left wrist (~03/21/10) Hx of cataract surgery (~07/02/10) Hx of colonoscopy (~02/13/06) Hx of endoscopy Family History Mother Renal failure Father History of depression Brother Colon cancer Social History Household Members: None Housing: Apartment Are you a primary elderly caregiver to a significant other at home: No Do you presently have visiting nurse or other home services: No Alcohol intake: never Patient Tobacco Use Status: Former Tobacco user Quit Date: 2021 Tobacco use type: Cigarette Cigarette Packs Per Day: 0.5 Years Smoked: 55 e-Cigarette/Vaping Use: Former Use Second Hand Smoke Exposure: No Advance Directives Date on File: 09/02/22 service: No Current occupational status: unemployed Review of Systems Const Denies fatigue, Denies fever(s), Denies night sweats, Denies poor appetite and Denies weight loss ENT Reports Normal hearing present, Denies dental pain, Denies dysphagia, Denies hearing loss, Denies mouth pain, Denies odynophagia, Denies throat swelling, Denies tongue swelling and Reports other (Dentition adequate) Card Reports no additional complaints Resp Reports no additional complaints GI Denies abdominal pain, Denies melena, Denies bloating, Denies hematochezia, Reports constipation, Denies GI cramping, Denies dysphagia, Denies excessive flatus, Denies early satiety, Reports heartburn, Denies diarrhea, Denies nausea, Denies odynophagia, Denies vomiting and Denies hematemesis Musc Reports back pain and Reports stiffness Skin/Breast Denies pruritus, Denies lesions, Denies rash and Denies jaundice Neuro Reports Normal hearing present and Denies Abnormal speech present Endo Denies fatigue Aller/Immun Denies throat swelling and Denies tongue swelling Physical Exam Vital Signs: Last Vital Signs Pulse 92 01/08/23 10:32 BP 99/75 01/08/23 10:32 BMI result Body Mass Index 25.6 Const Other: shifts and stands with discomfort at various times r/t back General: cooperative, no acute distress, well developed and well groomed Nutritional Appearance: average body habitus and well nourished Orientation/consciousness: oriented to person, oriented to place and oriented to time Limitations: language barrier HEENT Head: Yes normocephalic and Yes atraumatic Eyes General: appearance normal, both eyes and all related structures Pupils: Equal, round and reactive pupils present Neck Neck: Yes normal visual inspection and Yes no lymphadenopathy Thyroid: Thyroid normal Resp Effort & Inspection: normal respiratory effort and able to speak in complete sentences Auscultation: clear to auscultation bilaterally Cardio Rate: regular rate Rhythm: regular rhythm Heart sounds: Normal, physiologic split S2 sound present Peripheral pulses: radial pulses present and posterior tibial pulses present GI Inspection: No distended and No Abdominal panniculus present Palpation (GI): Soft to palpation, nontender, no guarding, not rigid and No hepatosplenomegaly present Percussion: Yes normal to percussion Auscultation: normal bowel sounds Rectal Exam - Male: Yes deferred Skin General skin exam: no rashes or lesions noted, turgor normal, skin not dry, no jaundice, No spider nevi and no striae Rashes: no rashes Nails: normal Neuro General: oriented to person, oriented to place and oriented to time Cranial nerves: Yes Equal, round and reactive pupils present and Yes Normal hearing present Speech: No Abnormal speech present Extrem General: Yes normal to inspection, No clubbing, No cyanosis and No edema Psych Appearance: grossly normal and well kempt Mental Status: mental status grossly normal Speech and movement: Normal speech and movement present Affect: normal affect Attitude: cooperative Thought process: not confabulating and Impoverished thought process present Thought content: Normal thought content present Insight: Limited insight present (Psych) Judgement: Limited judgement present (Psych) Assessment & Plan Assessment & Plan (1) Erosive esophagitis: Code(s): K22.10 - Ulcer of esophagus without bleeding Plan: [place] #His sister Kim translates per pt request. . He fell and developed several compression fx of the thoracic spine. He was in care home facility and had to cancel his colonoscopy that was scheduled for 11/2022. He stopped smoking and drinking ETOH and is taking his medication more regularly since his sister stared taking care of him. GERD is better. HE continues on Dexilant, reglan, and LInzess 145 micro g. He has received a letter that he needs a PA for the LInzess and we will work on this. He is newly on Eliquis for Afib with rapid rapid ventricular response and he has cardiomegaly. His sister said he drank a LOT of beer, never had transaminitis?? Wants to put of colonoscopy r/t back pain and mobility, offered Cologuard but he does not want, will re consider in 6 mos. Over due as should have had repeat in 2021 ROV 6 mos (2) Small bowel motility disorder: Code(s): K59.9 - Functional intestinal disorder, unspecified (3) Chronic idiopathic constipation: Code(s): K59.04 - Chronic idiopathic constipation (4) Rectal prolapse: Code(s): K62.3 - Rectal prolapse Medications: New dexlansoprazole 60 mg PO DAILY@0630 30 caps 6RF famotidine 40 mg PO BEDTIME PRN 30 tabs 6RF heartburn linaclotide (Linzess) 145 mcg PO DAILY@0600 30 caps 6RF metoclopramide HCl 10 mg PO QIDACHS 120 tabs 6RF Discontinued dexlansoprazole 60 mg PO DAILY 90 caps 1RF K21.9 - Gastro-esophageal reflux disease without esophagitis Quality Reporting (2019) Adult ([facility] 138/08/14/68) Smoking risk assessment performed?: Yes Patient Tobacco Use Status: Former Tobacco user Coding Level of Care Code Est Pt Level 3 (43121) Diagnoses Erosive esophagitis K22.10 Small bowel motility disorder K59.9 Chronic idiopathic constipation K59.04 Rectal prolapse K62.3
== END 2023-01-08 11:17 | disposition home or self-care (01) ==
PROVIDERS: PCP Student in an Organized Health Care Education/Training Program; Visit Provider Nurse Practitioner
DX: K22.10 Ulcer of esophagus without bleeding (principal); K59.9 Functional intestinal disorder, unspecified; K59.04 Chronic idiopathic constipation; K62.3 Rectal prolapse
CPT/HCPCS: 99213

== ENCOUNTER → 2023-01-08 10:28 | Outpatient (BNVA) | payer MEDICARE, MEDICAID, SELFPAY | PROVIDERS: PCP Student in an Organized Health Care Education/Training Program; Visit Provider Nurse Practitioner | DX: K59.04 Chronic idiopathic constipation (principal); K22.10 Ulcer of esophagus without bleeding; K59.9 Functional intestinal disorder, unspecified; D12.6 Benign neoplasm of colon, unspecified | CPT/HCPCS: 99212 ==

== ENCOUNTER 2023-01-14 07:25 | Outpatient (REF) | payer MEDICARE, MEDICAID, SELFPAY ==
--- NOTE | ~2023-01-14 | CT_ITS ---
EXAMINATION: CT CHEST WITHOUT CONTRAST CLINICAL INFORMATION: Pulmonary nodule COMPARISON: None available. Solitary pulmonary nodule previous CTs, most recent, 09/20/[address] imaging of the chest was done. Axial MIP volume rendering provided. Sagittal and coronal reformatted images were obtained. This CT examination was performed using dose optimization techniques as appropriate, variously including the following: *Automated exposure control *Adjustment of mA and/or kV according to patient size (this includes techniques or standardized protocols for targeted exams where dose is matched to indication/reason for exam; i.e. extremities or head) *Use of iterative reconstruction technique DLP: 166 mGy-cm FINDINGS: TOP LIFT CUTTER: Mid dorsal vertebral plasties. LUNGS: Trachea and bronchi are patent. Advanced emphysematous changes with bullous disease. Bilateral upper lobe scarring. Right middle lobe atelectasis in region of previous parenchymal consolidation. Stable right apical opacity with calcifications. Scattered micronodules. Right lower lobe 4 mm, 5 mm and 8 mm density seen on previous study have resolved. MEDIASTINUM: No thyroid abnormality. Nonspecific mediastinal lymph nodes. No pathologic lymphadenopathy. HEART AND GREAT VESSELS: Nonenlarged heart. No pericardial effusion. Ascending aorta unchanged 4.2 x 4.5 cm. Nonenlarged pulmonary arteries. CORONARY ARTERY CALCIFICATION: Moderate PLEURA: There is no pleural effusion. No pleural mass or thickening. AXILLA: No lymphadenopathy. UPPER ABDOMEN: Unremarkable. OSSEOUS AND SOFT TISSUE STRUCTURES: Severe L1 compression deformity is more pronounced than on 11/20/2022. Interval development of moderately severe L2 compression fracture. Unchanged T7 and T9 compression fractures with vertebroplasty cement. Mild gynecomastia. CT/CT chest wo IV con IMPRESSION: Redemonstration of advanced emphysema. No suspicious lung nodules. Worsening severe L1 and interval development of moderately severe L2 compression fractures. Fleischner guidelines were followed.
== END 2023-01-14 07:26 | disposition home or self-care (01) ==
LOC: HO.CT 07:25
PROVIDERS: Visit Provider Hospitalist
DX: R91.1 Solitary pulmonary nodule (principal)
CPT/HCPCS: 71250

== ENCOUNTER 2023-01-23 14:22 | Outpatient (AMB) | payer MEDICARE, MEDICAID, SELFPAY ==
--- NOTE | 2023-01-23 14:35 | MHC.OFFVIS ---
Intake Vital Signs 01/23/23 14:36 Height 5 ft 11 in Weight 183 lb BMI 25.5 BP 102/70 Blood Pressure Location Rt brachial Position Sitting Pulse 72 Pulse Source Pulse Oximeter Pulse Oximetry (%) 96 Oxygen Delivery Method Room Air Intake Visit Reasons: COPD Director Of Recruiting Required: No Allergies No Known Allergies [No Known Allergies*] Allergy (Verified 01/23/23 14:39) HPI HPI Comments History of Present Illness Details The patient is a 67-year-old gentleman with a known history of tobacco dependency, COPD with significant emphysema and pulmonary nodules is here for evaluation. The patient to smoke was 2 point complaints of shortness of breath with activity and also complains of cough. Piif-th-gsqkvlty severity. Feels like his legs are very heavy in does get fatigued with activity. He does continue to use inhalers which include Flovent and Spiriva. He uses them with good adherence. He does not have a rescue inhaler at this time. We did talk about smoking. The patient is down to 10 cigarettes a day. He is struggling to decrease further. He was on Chantix but was making and depressed. Therefore will hold off on additional Chantix. He will be a good candidate for Wellbutrin however. Also, in conjunction with Wellbutrin I will prescribe the Nicotrol inhaler that he can use in between for breakthrough nicotine withdrawals. In the patient has had multiple CT scans of the chest in currently participating in the lung cancer screening program. Her last CT scan was done just a few days ago 02/05/2021 demonstrating stable right upper lobe pulmonary nodules. He does have moderate to severe emphysema primarily in the upper lung zones. In he also is following up with Dr. Arce from thoracic surgery. Will continue monitoring the pulmonary nodule in the right upper lobe closely. The patient does have a family history of lung cancer and also pulmonary fibrosis. 05/21/2022 the patient is here for pulmonary follow-up visit. The patient recently was evaluated in the ER for worsening shortness of breath and palpitations. He was found to have atrial fibrillation with rapid ventricular response. During that visit he did undergo a CTA that ruled out pulmonary emboli. Again that identified the right lower lobe density. We did try to request a PET scan but based on the terminology we will not do it for density although that we do a for nodule. At this point it appears that the density although 1.8 cm in size has not changed in size which is reassuring. Although is only a very short interval between for 5 weeks. Therefore will go ahead and repeat the CT scan in 3 months. This area appears to be changing in size then will have to again requested PET scan. Does have extensive emphysema that needs to be considered specially if he is going to undergo any BP a invasive interventions. He does not use any oxygen. The patient does have use respiratory therapy that he uses the Trelegy daily with good effect. He has been on Eliquis now tolerating it well. Will have him return in 3 months time after his repeat CT scan. If he has any issues prior to that he is to call the office for an earlier evaluation. 08/16/2022 patient is here for pulmonary follow-up visit. He has multiple complaints including back pain and also radicular pain moderate severity. He also has a cough, moderate in severity. The cough has gotten better since he has quit smoking. Did have a repeat CT scan of the chest that was personally by me and also with the patient. It appears that the patchy right lower lobe airspace disease has improved although he does have a new area in the right middle lobe area. In addition to that has extensive emphysema. He also has a couple compression fractures that are likely the culprit of his back pain and also reticular discomfort. The patient would like to find some relief from the discomfort. Therefore, I did refer him to Pain Management. in the meantime in view of the cough and also the abnormal findings on his CT scan will go ahead and perform a bronchoscopy to assess the airways look for any malignancies or concerning etiologies especially with the significant family history of lung cancer. 01/23/2023 the patient is here for pulmonary follow-up visit. The patient overall has been doing well from a respiratory status. He is having significant amount of back pain. He did have a compression fracture that was 6 in now having issues with other back issues. She was referred to a neurosurgeon. At this point he is waiting that appointment. Clinically patient doing very well from a respiratory status he has stop smoking he has been using the Trelegy inhaler. Under go ahead and decrease the amount of steroids to the lower dose Trelegy. The patient also underwent a CT scan of the chest which I personally reviewed with him. All the findings are reassuring the nodular densities appear to be stable not smaller. He does have extensive emphysema however. That has not changed. No significant scarring noted. He will need another CT scan for another year. Will follow-up in the springtime. [facility] Medical History CHF exacerbation Compression fracture of body of thoracic vertebra Compression fracture of thoracic spine, non-traumatic Constipation COPD (chronic obstructive pulmonary disease) Depression Dyspnea GERD (gastroesophageal reflux disease) History of alcohol abuse Hyperlipidemia Hypertension Nonischemic cardiomyopathy Osteoporosis Personal history of nicotine dependence Pneumonia Pneumonia Pulmonary nodules Tubular adenoma of colon Surgical History History of appendectomy History of gastric surgery History of surgery on left wrist (~03/21/10) Hx of cataract surgery (~07/02/10) Hx of colonoscopy (~02/13/06) Hx of endoscopy Family History Mother Renal failure Father History of depression Brother Colon cancer Social History Household Members: None Housing: Apartment Are you a primary pediatric critical care nurse to a significant other at home: No Do you presently have visiting nurse or other home services: No Alcohol intake: never Patient Tobacco Use Status: Former Tobacco user Quit Date: 2021 Tobacco use type: Cigarette Cigarette Packs Per Day: 0.5 Years Smoked: 55 e-Cigarette/Vaping Use: Former Use Second Hand Smoke Exposure: No Advance Directives Date on File: 09/02/22 service: No Current occupational status: unemployed Review of Systems Const Reports difficulty sleeping ENT Reports no additional complaints and Reports neck pain Card Denies chest pain and Reports dyspnea on exertion Resp Reports as per HPI, Reports cough, Denies hemoptysis, Denies pain on inspiration, Denies pain with cough and Reports dyspnea on exertion GI Reports bloating and Reports heartburn Musc Reports back pain, Reports myalgias, Reports limited range of motion and Reports neck pain Neuro Reports no additional complaints and Reports radicular pain Psych Reports depression (ON MEDS ) Physical Exam Vital Signs: Last Vital Signs Pulse 72 01/23/23 14:36 BP 102/70 01/23/23 14:36 Pulse Ox 96 01/23/23 14:36 Oxygen Delivery Method Room Air 01/23/23 14:36 BMI result Body Mass Index 25.5 Last Vital Signs Temp 98.0 F 08/28/22 07:30 Pulse 88 08/28/22 07:48 Resp 18 08/28/22 07:48 BP 110/60 08/28/22 07:30 Pulse Ox 94 08/28/22 07:30 O2 Del Method 08/28/22 07:30 O2 Flow Rate 2.5 08/28/22 07:30 BMI result Body Mass Index 28.5 Const General: alert Neck Neck: Yes normal visual inspection, Yes full ROM and Yes no lymphadenopathy Chest Chest palpation & inspection: normal inspection of the chest Resp Effort & Inspection: normal respiratory effort Auscultation: diminished lung sounds Cardio Rate: regular rate Rhythm: abnormal rhythm Heart sounds: S1 normal heart sound present and S2 normal heart sound present GI Palpation (GI): Soft to palpation and nontender Auscultation: normal bowel sounds Back/Spine/Pelvis Back: back tenderness Skin General skin exam: rashes and/or lesions noted Assessment & Plan Assessment & Plan (1) Compression fracture of body of thoracic vertebra: Code(s): S22.000A - Wedge compression fracture of unspecified thoracic vertebra, initial encounter for closed fracture (2) Pulmonary nodules: Code(s): R91.8 - Other nonspecific abnormal finding of lung field (3) COPD (chronic obstructive pulmonary disease): Code(s): J44.9 - Chronic obstructive pulmonary disease, unspecified Qualifiers: COPD type: emphysema Emphysema type: centrilobular Qualified Code(s): J43.2 - Centrilobular emphysema (4) Dyspnea: Code(s): R06.00 - Dyspnea, unspecified (5) Pre-op chest exam: Code(s): Z01.811 - Encounter for preprocedural respiratory examination Plan The patient does have extensive emphysema in addition to COPD. He does have moderate risk for perioperative pulmonary complications. Indeed the knee back surgery. Patient does have increased risk for atelectasis, hypoxia, pneumonia and prolonged mechanical ventilation. He is able to proceed with surgery at this time. Patient also should be able to tolerate general anesthesia if needed. Will need a repeat CT chest in 12 months continue Trelegy inhaler, decrease 200->100 BARBARA as needed F/U in 6 months Orders: Orders CT chest wo IV con 364 Days R91.1 - Solitary pulmonary nodule Medications: New ycwpjyuydpy-comtvkezg-yklgmppv 100-62.5-25 mcg (Trelegy Ellipta) 1 inh inhalation DAILY 60 ea 11RF 30 days J44.9 - Chronic obstructive pulmonary disease, unspecified Discontinued dexlansoprazole 60 mg PO DAILY 90 caps 1RF K21.9 - Gastro-esophageal reflux disease without esophagitis Trelegy Ellipta 200-62.5-25 mcg (ryjnxjrprma-mfupaiyqy-pgxjwsio) Discontinued Reason: Doctor's Order 1 ea PO DAILY 60 ea 0RF NS Quality Reporting (2019) Adult ([facility] 138/08/14/68) Smoking risk assessment performed?: Yes Patient Tobacco Use Status: Former Tobacco user Coding Level of Care Code Est Pt Level 4 (12422) Diagnoses Compression fracture of body of thoracic vertebra S22.000A Pulmonary nodules R91.8 COPD (chronic obstructive pulmonary disease) J43.2 COPD type: emphysema Emphysema type: centrilobular Dyspnea R06.00 Pre-op chest exam Z01.811 Time Spent (min) 19
[2023-01-23 14:36] VITALS: BP 102/70; PULSE 72; O2SAT 96; BMI 25.5
== END 2023-01-23 15:06 | disposition home or self-care (01) ==
PROVIDERS: PCP Student in an Organized Health Care Education/Training Program; Visit Provider Hospitalist
DX: S22.000A Wedge compression fracture of unspecified thoracic vertebra, initial encounter for closed fracture (principal); R91.8 Other nonspecific abnormal finding of lung field; J43.2 Centrilobular emphysema; R06.00 Dyspnea, unspecified; Z01.811 Encounter for preprocedural respiratory examination
CPT/HCPCS: 99214

== ENCOUNTER → 2023-01-23 14:22 | Outpatient (BNVA) | payer MEDICARE, MEDICAID, SELFPAY | PROVIDERS: PCP Student in an Organized Health Care Education/Training Program; Visit Provider Hospitalist | DX: Z01.811 Encounter for preprocedural respiratory examination (principal); R91.8 Other nonspecific abnormal finding of lung field; R06.00 Dyspnea, unspecified; J43.2 Centrilobular emphysema; S22.000D Wedge compression fracture of unspecified thoracic vertebra, subsequent encounter for fracture with routine healing | CPT/HCPCS: 99212 ==

== ENCOUNTER 2023-01-29 10:23 | Outpatient (AMB) | payer MEDICARE, MEDICAID, SELFPAY ==
--- NOTE | 2023-01-29 10:28 | HO.SPINEOV ---
Intake Intake Visit Reasons: Other intervertebral disc degeneration Intake Note: Mr. Hiro Soni is here today c/o low back pain. Risk Control Analyst Required: Yes Allergies No Known Allergies [No Known Allergies*] Allergy (Verified 01/23/23 14:39) Assessment & Plan Assessment & Plan (1) Osteoporosis: Code(s): M81.0 - Age-related osteoporosis without current pathological fracture (2) Degeneration, intervertebral disc, lumbosacral: Code(s): M51.37 - Other intervertebral disc degeneration, lumbosacral region Plan Dear colleague Thank you for referring Avery Soni to the office today with a chief complaint of low back pain. HPI: This 67-year-old male who is suffering from intractable low back pain since May 2022. He can only walk short distance since before the pain starts. Lying down improves the pain. He denies radiating pain down his legs. Pain is located in the lower lumbar region. His medical history is significant for osteoporosis with thoracic kyphoplasties in the past. PMH: Osteoporosis, chronic heart failure, atrial fibrillation, COPD Social history: Smoker Medications: Medications were reviewed in [employer] and include Eliquis Allergies: NKDA Physical Exam: Pleasant male. Stands in flexed position. Mild back pain on palpation. No neurological deficit Radiological Studies: A CT of the lumbar spine shows progression of an L1 compression fracture and a new L4 endplate fracture. In addition days lumbar degenerative disc disease L4-5 and L5-S1 Impression/Plan: The patient back pain is most likely multifactorial. The osteoporosis and lumbar degenerative disc disease are major contributing factors although the new compression fracture may explain his aggravation of back pain since May. I told him I am not able to offer many for fusion surgery due to his poor bone quality. I have referred him back to Dr. Khalil Thank you for allowing me to participate in your patients care. total time spent was 50 minutes in counseling ,coordination of plan, personal review of imaging, surgical decision making and subsequent plan Juan Manuel Wilder MD, PhD Spine Fellowship Trained Neurosurgeon Director, [facility] Medications: Discontinued dexlansoprazole 60 mg PO DAILY 90 caps 1RF K21.9 - Gastro-esophageal reflux disease without esophagitis Coding Level of Care Code New Pt Level 4 (93158) Diagnoses Osteoporosis M81.0 Degeneration, intervertebral disc, lumbosacral M51.37
== END 2023-01-29 11:08 | disposition home or self-care (01) ==
PROVIDERS: PCP Student in an Organized Health Care Education/Training Program; Referring Provider Internal Medicine; Visit Provider Neurological Surgery
DX: M81.0 Age-related osteoporosis without current pathological fracture (principal); M51.37 Other intervertebral disc degeneration, lumbosacral region
CPT/HCPCS: 99204

== ENCOUNTER → 2023-01-29 10:23 | Outpatient (BNVA) | payer MEDICARE, MEDICAID, SELFPAY | PROVIDERS: Visit Provider Neurological Surgery | DX: M81.0 Age-related osteoporosis without current pathological fracture (principal); M51.37 Other intervertebral disc degeneration, lumbosacral region | CPT/HCPCS: 99202 ==

== ENCOUNTER 2023-02-03 10:19 | Outpatient (REF) | payer MEDICARE, MEDICAID, SELFPAY ==
[2023-02-03 16:30] LABS: Urine Cytology See Pathology rpt
== END 2023-02-03 10:20 | disposition home or self-care (01) ==
LOC: HO.LAB 10:19
PROVIDERS: PCP Internal Medicine; Visit Provider Urology
DX: N40.0 Benign prostatic hyperplasia without lower urinary tract symptoms (principal); R31.29 Other microscopic hematuria
CPT/HCPCS: 88112; 99212

== ENCOUNTER 2023-02-03 10:19 | Outpatient (AMB) | payer MEDICARE, MEDICAID, SELFPAY ==
--- NOTE | 2023-02-03 03:28 | A.OFFVIS_ITS ---
Intake Intake Visit Reasons: cysto/us/lab Intake Note: Patient presents today for a follow-up on US & Labs Results: Patient declined to do the Cystoscopy. Meds- None Allergies to Antibiotic- No Known Allergies Blood Thinner- Eliquis Legal Specialist Required: Yes Legal Specialist Language: Head Tennis Professional Name: LINNETTE Matias/NAIN FONTANEZ Accompanied by: Other Relationship Allergies No Known Allergies [No Known Allergies*] Allergy (Verified 02/03/23 11:02) HPI HPI Comments History of Present Illness Details Avery is a 67-year-old male who presents today to the office for a Cystoscopy procedure. Review of charts? 11/08/2022? Avery is a 67-year-old male who presents to the office as a new patient evaluation for microscopic hematuria. The patient is Syriac speaking gentleman. His sister was present during the visit who interprets for him. They declined certified Syriac speaking proofer prepress. I reviewed the chart and he has several urinalysis results that show presence of blood in the urine. States that he has been evaluated in past for microscopic blood in the urine.? He states he saw a urologist in the past who did workup including cystoscopy and was told that everything is normal. The patient denies observing gross hematuria. Denies dysuria. I have discussed microscopic hematuria may be due to but not limited to kidney stones, BPH, cystitis, urinary tract malignancy. I have discussed work up to include evaluation of the urinary tract which may include imaging, further urine testing, and cystoscopy. Evaluation today-- Blood: 80 Julio/uL, leukocytes: negative. Bladder scan PVR: 29 mL. CTAP results reviewed with IV contrast--07/05/22--Urinary tract-- no stones visualized. Plan: PSA blood work was ordered. Renal US was ordered. Cystoscopy procedure discussed to be scheduled. Follow-up in 6-8 weeks. On today?s visit? 02/03/2023-- The patient is Syriac speaking gentleman. His sister was present during the visit who interprets for him. He was last seen by me on 11/08/2022. I reviewed the PSA results from 01/15/2023 revealed PSA-0.50. He is refusing to have the Cystoscopy. He did not have renal US but I have reviewed again the CT imaging from Plan: Pt declined office cystoscopy, states he is afraid of feeling pain Outpatient Cystoscopy, possible bladder biopsy. Patient is on Eliquis, need medical clearance regarding discontinuing of Eliquis 3 days prior to the procedure. [facility] Medical History CHF exacerbation Compression fracture of body of thoracic vertebra Compression fracture of thoracic spine, non-traumatic Constipation COPD (chronic obstructive pulmonary disease) Depression Dyspnea GERD (gastroesophageal reflux disease) History of alcohol abuse Hyperlipidemia Hypertension Nonischemic cardiomyopathy Osteoporosis Personal history of nicotine dependence Pneumonia Pneumonia Pulmonary nodules Tubular adenoma of colon Surgical History History of appendectomy History of gastric surgery History of surgery on left wrist (~03/21/10) Hx of cataract surgery (~07/02/10) Hx of colonoscopy (~02/13/06) Hx of endoscopy Family History Mother Renal failure Father History of depression Brother Colon cancer Social History Household Members: None Housing: Apartment Are you a primary coronary care unit nurse to a significant other at home: No Do you presently have visiting nurse or other home services: No Alcohol intake: never Patient Tobacco Use Status: Former Tobacco user Quit Date: 2021 Tobacco use type: Cigarette Cigarette Packs Per Day: 0.5 Years Smoked: 55 e-Cigarette/Vaping Use: Former Use Second Hand Smoke Exposure: No Advance Directives Date on File: 09/02/22 service: No Current occupational status: unemployed Review of Systems Const All systems reviewed & are unremarkable except as noted in HPI and below Reports no additional complaints Eyes Reports no additional complaints ENT Reports no additional complaints Card Denies dyspnea Resp Denies cough and Denies dyspnea GI Reports no additional complaints Musc Reports no additional complaints Skin/Breast Denies rash and Denies unusual bruising Neuro Reports no additional complaints Psych Reports no additional complaints Endo Reports no additional complaints Christian/Lymph Reports no additional complaints Aller/Immun Reports no additional complaints Physical Exam Const General: healthy appearing, no acute distress and well developed Orientation/consciousness: patient oriented x3 HEENT Head: Yes normocephalic and Yes atraumatic Eyes Conjunctivae: conjunctivae normal Neck Neck: Yes normal visual inspection Chest Chest palpation & inspection: normal inspection of the chest Resp Effort & Inspection: normal respiratory effort Cardio Rate: regular rate GI Inspection: Yes normal to inspection Skin General skin exam: no rashes or lesions noted Neuro General: patient oriented x3 Extrem General: No pedal edema Psych Appearance: grossly normal Affect: normal affect Results AMB Urinalysis, Automated UA Leukoctes 0 Jacinda/uL Last Edit by LINNETTE Matias on 02/03/23 11:03 UA Nitrite Negative Last Edit by LINNETTE Matias on 02/03/23 11:03 UA Urobilinogen 0.2 mg/dL Last Edit by LINNETTE Matias on 02/03/23 11:0 3 UA Protein 0 mg/dL Last Edit by LINNETTE Matias on 02/03/23 11:03 UA pH 6.0 Last Edit by LINNETTE Matias on 02/03/23 11:03 UA Blood 80 Julio/uL Last Edit by LINNETTE Matias on 02/03/23 11:03 2+ Lenny Sigala 02/03/23 11:03 UA Specific [place] 1.015 Last Edit by LINNETTE Matias on 02/03/23 11: 03 UA Ketone Negative Last Edit by LINNETTE Matias on 02/03/23 11:03 UA Bilirubin 0 mg/dL Last Edit by LINNETTE Matias on 02/03/23 11:03 UA Glucose 0 mg/dL Last Edit by LINNETTE Matias on 02/03/23 11:03 Results Reviewed Results Reviewed: Laboratory Last Values Urine pH (Auto) 6.0 02/03/23 11:01 Specific [place] (Auto) 1.015 02/03/23 11:01 Urine Protein (Auto) 0 mg/dL 02/03/23 11:01 Glucose (UA)(Auto) 0 mg/dL 02/03/23 11:01 Urine Ketones (Auto) Negative 02/03/23 11:01 Urine Blood (Auto) 80 Julio/uL 02/03/23 11:01 Urine Nitrite (Auto) Negative 02/03/23 11:01 Urine Bilirubin (Auto) 0 mg/dL 02/03/23 11:01 Urine Urobilinogen (Auto) 0.2 mg/dL 02/03/23 11:01 Leukocyte Esterase (Auto) 0 Jacinda/uL 02/03/23 11:01 Assessment & Plan Assessment & Plan (1) BPH (benign prostatic hyperplasia): Code(s): N40.0 - Benign prostatic hyperplasia without lower urinary tract symptoms (2) Microscopic hematuria: Code(s): R31.29 - Other microscopic hematuria Plan Outpatient Cystoscopy, possible bladder biopsy. Patient is on Eliquis, need medical clearance regarding discontinuing of Eliquis 3 days prior to the procedure. Orders: Orders Urine Cytology Today N40.0 - Benign prostatic hyperplasia without lower urinary tract symptoms, R31.29 - Other microscopic hematuria AMB Urinalysis Automated Today Z13.9 - Encounter for screening, unspecified Medications: Discontinued dexlansoprazole 60 mg PO DAILY 90 caps 1RF K21.9 - Gastro-esophageal reflux disease without esophagitis Patient Instructions: The patient had an opportunity to ask questions regarding treatment plan. All questions were answered. Imaging, Laboratory studies and physical exam results were discussed and reviewed in detail. No major barriers to understanding were identified. The patient expressed understanding and agreement with the above treatment plan.? ? ? The patient is aware they should contact our office by phone for worsening of their current condition or the appearance of new symptoms. Compliance is encouraged with any medications and followup testing that is ordered.? ? ? It is a privilege to be allowed the opportunity to participate in the urologic care of your patient. If you have any questions or concerns regarding treatment for the above conditions please do not hesitate to contact me. The office telephone contact is [phone].? ? ? This note is constructed in part using voice recognition software. While every effort has been made to ensure accuracy home service demonstrator errors may have been included.? ? ? Yours sincerely,? ? ? Larry Ochoa MD? Quality Reporting (2019) Adult ([facility] [address]/14/68) Smoking risk assessment performed?: Yes Patient Tobacco Use Status: Former Tobacco user Coding Level of Care Code Est Pt Level 3 (41074) Diagnoses BPH (benign prostatic hyperplasia) N40.0 Microscopic hematuria R31.29
== END 2023-02-03 11:09 | disposition home or self-care (01) ==
PROVIDERS: PCP Internal Medicine; Visit Provider Urology
DX: N40.0 Benign prostatic hyperplasia without lower urinary tract symptoms (principal); R31.29 Other microscopic hematuria
CPT/HCPCS: 99213

== ENCOUNTER 2023-02-12 09:59 | Outpatient (AMB) | payer MEDICARE, MEDICAID, SELFPAY ==
--- NOTE | 2023-02-12 09:59 | A.OFFVIS_ITS ---
Intake Vital Signs 02/12/23 10:00 Height 5 ft 11 in Weight 189 lb 2.506 oz BMI 26.4 BP 96/72 Blood Pressure Location Lt brachial Position Sitting Pulse 91 Pulse Source Pulse Oximeter Intake Visit Reasons: Osteoporosis Intake Note: Patient present for Osteoporosis follow up visit. Flight Data Technician Required: No Flight Data Technician Name: Levon sister Information Interpreted: non-clinical & clinical Accompanied by: Sister Allergies No Known Allergies [No Known Allergies*] Allergy (Verified 02/12/23 10:03) HPI HPI Comments History of Present Illness Details 67 YO M with is seen in consultation at the request of PCP for Osteoporosis. First diagnosed in Jun 2022 .Had compression fx Not Received treatment in the past . history of pathologic fracture T7, T9 and [id number] car but no ONJ. Has no servings of dietary calcium per day Takes Calcium supplement 600 mg BID in divided doses. Takes 1600 IU of Vitamin D daily. Denies ever using PPI, Takes anticoagulant Eliquis , antiepileptic or glucocorticoid medication. Does not weight bearing exercise Fracture history: as above Height loss: No No history of Kidney stones: Has family history of Osteoporosis in mother but no hip fracture. Not UTD on dental cleanings and sees dentist every 6 months. No planned upcoming dental work or extractions. DXA dated 09/26/22 :FINDINGS: AP SPINE L1-L4: BMD 0.862 g/cm2, Z-score -2.6, T-score -3.0, osteoporosis. LEFT FEMUR, NECK: BMD 0.737 g/cm2, Z-score -1.5, T-score -2.6, osteoporosis. LEFT FEMUR, TOTAL: BMD 0.804 g/cm2, Z-score -1.5, T-score -2.1, osteopenia. IDENTIFIED RISK FACTORS: Low calcium intake, history of fracture (adult). HISTORY OF FRACTURE: Thoracic spine status post vertebral augmentation T7 and T9. Clavicle. MEDICATIONS: Calcium, vitamin D. MM/XR DEXA axial skeleton IMPRESSION: 1. DIAGNOSIS: Osteoporosis based on the lowest T-score value of -3.0 in the lumbar spine applying World Health Organization crite On Tymlos for 2 mos . Had 2 additional fx before starting Tymlos [facility] Medical History CHF exacerbation Compression fracture of body of thoracic vertebra Compression fracture of thoracic spine, non-traumatic Constipation COPD (chronic obstructive pulmonary disease) Depression Dyspnea GERD (gastroesophageal reflux disease) History of alcohol abuse Hyperlipidemia Hypertension Nonischemic cardiomyopathy Osteoporosis Personal history of nicotine dependence Pneumonia Pneumonia Pulmonary nodules Tubular adenoma of colon Surgical History History of appendectomy History of gastric surgery History of surgery on left wrist (~03/21/10) Hx of cataract surgery (~07/02/10) Hx of colonoscopy (~02/13/06) Hx of endoscopy Family History Mother Renal failure Father History of depression Brother Colon cancer Social History Household Members: None Housing: Apartment Are you a primary caretaker grounds to a significant other at home: No Do you presently have visiting nurse or other home services: No Alcohol intake: never Patient Tobacco Use Status: Former Tobacco user Quit Date: 2021 Tobacco use type: Cigarette Cigarette Packs Per Day: 0.5 Years Smoked: 55 e-Cigarette/Vaping Use: Former Use Second Hand Smoke Exposure: No Advance Directives Date on File: 09/02/22 service: No Current occupational status: unemployed Physical Exam Vital Signs: BMI result Body Mass Index 26.4 Assessment & Plan Assessment & Plan (1) Osteoporosis: Code(s): M81.0 - Age-related osteoporosis without current pathological fracture Plan: This is a 67-year-old male with a history of osteoporosis and compression fractures of the spine. Secondary workup was negative Plan is continue the Tymlos Medications: Discontinued dexlansoprazole 60 mg PO DAILY 90 caps 1RF K21.9 - Gastro-esophageal reflux disease without esophagitis Quality Reporting (2019) Adult ([facility] 138/[birth year]) Smoking risk assessment performed?: Yes Patient Tobacco Use Status: Former Tobacco user Coding Level of Care Code Est Pt Level 3 (83783) Diagnoses Osteoporosis M81.0
[2023-02-12 10:00] VITALS: BP 96/72; PULSE 91; BMI 26.4
== END 2023-02-12 10:53 | disposition home or self-care (01) ==
PROVIDERS: PCP Internal Medicine; Visit Provider Internal Medicine Endocrinology, Diabetes & Metabolism
DX: M81.0 Age-related osteoporosis without current pathological fracture (principal)
CPT/HCPCS: 99213

== ENCOUNTER → 2023-02-12 09:59 | Outpatient (BNVA) | payer MEDICARE, MEDICAID, SELFPAY | PROVIDERS: Visit Provider Internal Medicine Endocrinology, Diabetes & Metabolism | DX: M81.0 Age-related osteoporosis without current pathological fracture (principal) | CPT/HCPCS: 99212 ==

== ENCOUNTER 2023-03-04 06:28 | Day surgery (SDC) | payer MEDICARE, MEDICAID, SELFPAY ==
[2023-02-27 14:51] VITALS: BMI 26.2
--- NOTE | 2023-03-03 09:53 | HO.ANESPROP2 ---
Documented by User: Nai Rush NP 03/03/23 09:59 HPI - Anesthesia Eval Consult details Narrative: 67yo M for Cystoscopy & possible Bladder Biopsy Cardiac optimized (NonIschemic CMP with EF normalized) Stable at pulmo visit 01/2023 s/p kypho 10/2022 with MAC Eliquis for afib PMFSH Active Problems Active Problems: All Active Problems (Updated 02/27/23 @ 14:37 by Jaki Orantes RN) Pre-op chest exam (Acute) BPH (benign prostatic hyperplasia) (Acute) Right lower lobe pneumonia (Acute) Screening PSA (prostate specific antigen) (Acute) Microscopic hematuria (Acute) Degeneration, intervertebral disc, lumbosacral (Acute) Atrial fibrillation with rapid ventricular response (Acute) Pneumonia (Acute) Compression fracture of T9 vertebra (Acute) Pulmonary nodule (Acute) Right clavicle fracture (Acute) COVID-19 (Acute) Chronic idiopathic constipation (Acute) Small bowel motility disorder (Acute) Hematemesis with nausea (Acute) Chronic heart failure (Acute) Dysphagia (Acute) Erosive esophagitis (Acute) Arthritis of both elbows (Acute) Systolic dysfunction (Acute) COPD (chronic obstructive pulmonary disease) (Acute) Smoker (Acute) Hemorrhoids (Acute) Abdominal bloating (Acute) Rectal prolapse (Acute) Glaucoma (Acute) Peptic ulcer disease (Acute) Osteoporosis (Acute) Pneumonia (Acute) Compression fracture of body of thoracic vertebra (Acute) Tubular adenoma of colon (Acute) Dyspnea (Acute) Personal history of nicotine dependence (Acute) Past Medical History Medical History Emphysema lung Ascending aortic aneurysm Atrial fibrillation Osteoporosis Pneumonia Compression fracture of body of thoracic vertebra History of alcohol abuse CHF exacerbation Compression fracture of thoracic spine, non-traumatic Nonischemic cardiomyopathy Tubular adenoma of colon Dyspnea Pulmonary nodules COPD (chronic obstructive pulmonary disease) Personal history of nicotine dependence Hyperlipidemia Constipation GERD (gastroesophageal reflux disease) Depression Hypertension Family History Family History Mother Renal failure Father History of depression Brother Colon cancer Family history of problems with anesthesia: No Surgical History Surgical History Hx of kyphoplasty History of surgery on left wrist (~03/21/10) Hx of endoscopy Hx of colonoscopy (~02/13/06) Hx of cataract surgery (~07/02/10) History of appendectomy History of gastric surgery History of Problems with Anesthesia: No Social History Social History Household Members: None Housing: Apartment Are you a primary healthcare representative to a significant other at home: No Do you presently have visiting nurse or other home services: No Alcohol intake: never Patient Tobacco Use Status: Former Tobacco user Quit Date: 2 yrs ago Tobacco use type: Cigarette Cigarette Packs Per Day: 0.5 Years Smoked: 55 e-Cigarette/Vaping Use: Former Use Second Hand Smoke Exposure: No Use of substances other than those prescribed or required for medical reasons: No Are you DNR?: No Advance Directives: No Advance Directives Information Provided: Yes Advance Directives Date on File: 09/02/22 service: No Current occupational status: unemployed Meds Allergies Allergy/AdvReac Type Severity Reaction Status Date / Time No Known Allergies Allergy Verified 03/04/23 06:54 [No Known Allergies*] Home Medications Medication Instructions Recorded Confirmed Last Taken Type latanoprost 0.005 % eye drops 1 drp ophthalmic (eye) BEDTIME 03/27/20 02/27/23 11/19/22 History quetiapine 300 mg tablet 300 mg PO BEDTIME 03/27/20 02/27/23 11/19/22 History simvastatin 20 mg tablet 20 mg PO BEDTIME 03/27/20 02/27/23 11/19/22 History furosemide 20 mg tablet (Lasix) 20 mg PO DAILY 02/12/23 02/27/23 03/04/23 06:00 History trazodone 100 mg tablet 100 - 200 mg PO BEDTIME PRN 02/27/23 02/27/23 Unknown History Insomnia valsartan 40 mg tablet (Diovan) 20 mg PO DAILY 02/27/23 02/27/23 03/04/23 06:00 History dexlansoprazole 60 mg 60 mg PO DAILY@0630 03/04/23 02/27/23 03/04/23 06:00 History capsule,biphase delayed release (Dexilant) Exam Exam Date and Time: March 03, 2023 0953 Height,Weight and Vital Signs: Height 5 ft 11 in Weight 85.275 kg Pertinent Lab Results Pertinent Lab Results: Laboratory Tests 12/26/22 08:57 WBC 5.7 Hgb 12.7 L Hct 40.3 L Plt Count 279 D Sodium 140 Potassium 4.3 Chloride 110 H Carbon Dioxide 23 BUN 19 H Creatinine 1.13 Narrative Narrative: EKG 10/2022 Vent. Rate : 126 BPM Atrial Rate : 126 BPM P-R Int : 136 ms QRS Dur : 076 ms QT Int : 316 ms P-R-T Axes : 030 024 071 degrees QTc Int : 457 ms Sinus tachycardia Nonspecific ST abnormality Abnormal ECG When compared with ECG of 26-AUG-2022 14:34, Sinus rhythm has replaced Atrial flutter T wave inversion no longer evident in Anterolateral leads ECHO 05/2022 Conclusions: - 1. Mildly reduced LV systolic function with LVEF of 45-50% ? ? 2. Normal cardiac valvular Doppler ? 3. Normal RV systolic pressure ? 4. At least mildly dilated ascending aorta at 4.3 cm ? 5. No gross pericardial effusion ? Assessment and Plan Assessment Anesthesia Assessment: Chart Reviewed Final Anesthetic Review Family History of Problems with Anesthesia: No History of Problems with Anesthesia: No Documented by User: Nayeli Billings MD 03/04/23 08:19 [facility] Past Medical History Medical History Emphysema lung Ascending aortic aneurysm Atrial fibrillation Osteoporosis Pneumonia Compression fracture of body of thoracic vertebra History of alcohol abuse CHF exacerbation Compression fracture of thoracic spine, non-traumatic Nonischemic cardiomyopathy Tubular adenoma of colon Dyspnea Pulmonary nodules COPD (chronic obstructive pulmonary disease) Personal history of nicotine dependence Hyperlipidemia Constipation GERD (gastroesophageal reflux disease) Depression Hypertension Family History Family History Mother Renal failure Father History of depression Brother Colon cancer Surgical History Surgical History Hx of kyphoplasty History of surgery on left wrist (~03/21/10) Hx of endoscopy Hx of colonoscopy (~02/13/06) Hx of cataract surgery (~07/02/10) History of appendectomy History of gastric surgery Social History Social History Household Members: None Housing: Apartment Are you a primary healthcare representative to a significant other at home: No Do you presently have visiting nurse or other home services: No Alcohol intake: never Patient Tobacco Use Status: Former Tobacco user Quit Date: 2 yrs ago Tobacco use type: Cigarette Cigarette Packs Per Day: 0.5 Years Smoked: 55 e-Cigarette/Vaping Use: Former Use Second Hand Smoke Exposure: No Use of substances other than those prescribed or required for medical reasons: No Are you DNR?: No Advance Directives: No Advance Directives Information Provided: Yes Advance Directives Date on File: 09/02/22 service: No Current occupational status: unemployed Meds Allergies Allergy/AdvReac Type Severity Reaction Status Date / Time No Known Allergies Allergy Verified 03/04/23 06:54 [No Known Allergies*] Home Medications Medication Instructions Recorded Confirmed Last Taken Type latanoprost 0.005 % eye drops 1 drp ophthalmic (eye) BEDTIME 03/27/20 02/27/23 11/19/22 History quetiapine 300 mg tablet 300 mg PO BEDTIME 03/27/20 02/27/23 11/19/22 History simvastatin 20 mg tablet 20 mg PO BEDTIME 03/27/20 02/27/23 11/19/22 History furosemide 20 mg tablet (Lasix) 20 mg PO DAILY 02/12/23 02/27/23 03/04/23 06:00 History trazodone 100 mg tablet 100 - 200 mg PO BEDTIME PRN 02/27/23 02/27/23 Unknown History Insomnia valsartan 40 mg tablet (Diovan) 20 mg PO DAILY 02/27/23 02/27/23 03/04/23 06:00 History dexlansoprazole 60 mg 60 mg PO DAILY@0630 03/04/23 02/27/23 03/04/23 06:00 History capsule,biphase delayed release (Dexilant) Exam Airway Mallampati Class: II TM Dist: >3cm Neck ROM: Full Denture: Upper Partial: Lower Loose/Missing/Broken Teeth: Yes, Upper and Lower Heart: RRR Lungs: CTA Assessment and Plan Assessment Anesthesia Assessment: Anesthesia Plan Discussed Final Anesthetic Review NPO: Yes ASA Class: III Final Preanesthetic Review: Meds/Allgs Chart Reviewed, Consent Obtained/Reviewed and Anes Risks/Benef Reviewed Patient Risk: Intermediate Procedure Risk: Low Anesthetic Plan Anesthetic Plan: GA Disposition: Standard PACU
[2023-03-04] VITALS (7 sets, daily range): BP systolic 106–125; BP diastolic 75–91; PULSE 62–78; RESP 14–16; TEMP 36.3–36.6; O2SAT 95–99
[2023-03-04] MEDS: Lactated Ringers 1,000 ML 100 ML IVCONT (07:22)
--- NOTE | 2023-03-04 08:51 | MHC.SHP ---
Pre-Procedural Eval Section A Date of Service: 03/04/23 The patient is an INPATIENT: No The History & Physical has been completed within 30 days and I have reviewed it.: Yes Section B Chief Complaint: Other microscopic hematuria Allergies: Allergies Allergy/AdvReac Type Severity Reaction Status Date / Time No Known Allergies Allergy Verified 03/04/23 06:54 [No Known Allergies*] Plan Diagnosis/Plan: Unchanged I have reviewed the history and physical and performed a pertinent physical examination on my patient. No changes have occurred unless specified. Cystoscopy possible bladder biopsy Time Spent With Patient Time: Total time managing care of this patient today ____ minutes.
--- NOTE | 2023-03-04 09:44 | P.OP_ITS ---
Operative Note Operative Note Date of Service: 03/04/23 Narrative: PREOP DIAGNOSIS: Microscopic hematuria POSTOP DIAGNOSIS: Microscopic hematuria, urethral scarring PROCEDURE: CYSTOSCOPY SURGEON: Larry Ochoa MD ANESTHESIA: General Indications: microscopic hematuria Details of procedure: The patient was brought into the operating room placed on the OR table in supine position. Ancef 2 gm IV. General anesthesia was administered. The patient was repositioned into lithotomy position, prepped and draped in the usual sterile fashion. Time-out was done per protocol. 2% lidocaine jelly inserted transurethrally. A 22 fr cystoscope was placed transurethrally into the bladder. The entire bulbous urethra noted that the integrity of the urethral mucosal tissue was scarred, however, there was not a pinpoint stricture, the prostatic urethra was nonobstructive. The right and left ureteral orifices were visualized in the normal position. There were mild to moderate trabeculations noted. There were no suspicious mary dder lesions seen. The cystoscope was removed. 2% lidocaine urojet was passed transurethrally into the bladder. The patient was brought out of anesthesia and taken to recovery in stable condition. Complications: None Drains: none
[2023-03-04] MEDS: Acetaminophen 325 MG TABLET 650 MG PO (09:58)
[2023-03-04] MEDS: Phenazopyridine HCL 100 MG TABLET 200 MG PO (09:58)
== END 2023-03-04 10:55 | disposition home or self-care (01) ==
PROVIDERS: PCP Student in an Organized Health Care Education/Training Program; Visit Provider Urology
PROC: (CPT 52000; principal; 2023-03-04 08:30)
DX: R31.29 Other microscopic hematuria (principal); N36.8 Other specified disorders of urethra; N32.89 Other specified disorders of bladder; N40.0 Benign prostatic hyperplasia without lower urinary tract symptoms; I11.0 Hypertensive heart disease with heart failure; I50.9 Heart failure, unspecified; I42.8 Other cardiomyopathies; I48.91 Unspecified atrial fibrillation; Z79.01 Long term (current) use of anticoagulants; E78.5 Hyperlipidemia, unspecified; K21.9 Gastro-esophageal reflux disease without esophagitis; F10.11 Alcohol abuse, in remission; R91.8 Other nonspecific abnormal finding of lung field; Z79.899 Other long term (current) drug therapy; Z98.84 Bariatric surgery status; Z87.891 Personal history of nicotine dependence
CPT/HCPCS: 52000; J0690; J2405; J3010

== ENCOUNTER → 2023-03-04 06:28 | Outpatient (BNV) | payer MEDICARE, MEDICAID, SELFPAY | PROVIDERS: PCP Student in an Organized Health Care Education/Training Program; Visit Provider Urology | DX: R31.29 Other microscopic hematuria (principal) | CPT/HCPCS: 52000 ==

== ENCOUNTER 2023-03-10 08:13 | Outpatient (AMB) | payer MEDICARE, MEDICAID, SELFPAY ==
[2023-03-10 08:18] VITALS: BP 110/80; PULSE 84; RESP 14; O2SAT 96; BMI 26.4
--- NOTE | 2023-03-10 08:18 | A.OFFVIS_ITS ---
Intake Vital Signs 03/10/23 08:18 Height 5 ft 11 in Weight 189 lb BMI 26.4 BP 110/80 Blood Pressure Location Lt brachial Position Sitting Respiration 14 Pulse 84 Pulse Source Pulse Oximeter Pulse Oximetry (%) 96 Oxygen Delivery Method Room Air Intake Visit Reasons: Other intervertebral disc degen, lumbar region Haul Driver Required: Yes Haul Driver Name: prefers sister to trasnslate Allergies No Known Allergies [No Known Allergies*] Allergy (Verified 03/10/23 08:19) Medication List - Last Reconciled 03/10/23 by Linda Oh LPN abaloparatide (Tymlos) 80 mcg (0.04 mL) subcut DAILY albuterol sulfate 90 mcg/actuation (Ventolin HFA) 2 puffs inhalation Q6H PRN 30 days apixaban (Eliquis) 5 mg PO BID dexlansoprazole (Dexilant) 60 mg PO DAILY@0630 dsofgmgydam-cmsnycndu-bujrnkro 100-62.5-25 mcg (Trelegy Ellipta) 1 inh inhalation DAILY 30 days furosemide (Lasix) 20 mg PO DAILY latanoprost 0.005% 1 drp ophthalmic (eye) BEDTIME linaclotide (Linzess) 145 mcg PO DAILY@0600 metoclopramide HCl 10 mg PO QIDACHS naloxone 4 mg/actuation intranasal oxycodone 5 mg PO Q6H PRN quetiapine 300 mg PO BEDTIME simvastatin 20 mg PO BEDTIME sotalol 80 mg PO BID trazodone 100 - 200 mg PO BEDTIME PRN HPI Other intervertebral disc degen, lumbar region HPI Details 67-year-old male who presents today to t office for midback pain. He was seen in Neurosurgery and declined lumbar fusion due to severe osteoporosis. Recently underwent CT of the chest that showed an incidental finding of a new L2 compression fracture. This correlates with his newly worsening midback pain. He is status post-vertebral augmentation at the T7 and T9 levels, with subsequent improvement in his upper back pain. He has a history of degenerative disc disease. The patient has been experiencing intractable mid back pain since June 13. Pain is located in the midback and lumbar region. The patient can only walk a short distance before her pain starts. Lying down improves pain. He denies any radiating pain down to his leg. He is currently taking Tymlos 80 mcg for osteoporosis. He has no implants in his body. The patient has been taking Eliquis for atrial fibrillation. He had stopped Eliquis for three days prior to his last kyphoplasty. [facility] Medical History Emphysema lung Ascending aortic aneurysm Atrial fibrillation Osteoporosis Pneumonia Compression fracture of body of thoracic vertebra History of alcohol abuse CHF exacerbation Compression fracture of thoracic spine, non-traumatic Nonischemic cardiomyopathy Tubular adenoma of colon Dyspnea Pulmonary nodules COPD (chronic obstructive pulmonary disease) Personal history of nicotine dependence Hyperlipidemia Constipation GERD (gastroesophageal reflux disease) Depression Hypertension Surgical History Hx of kyphoplasty History of surgery on left wrist (~03/21/10) Hx of endoscopy Hx of colonoscopy (~02/13/06) Hx of cataract surgery (~07/02/10) History of appendectomy History of gastric surgery Family History Mother Renal failure Father History of depression Brother Colon cancer Social History Household Members: None Housing: Apartment Are you a primary child care development specialist to a significant other at home: No Do you presently have visiting nurse or other home services: No Alcohol intake: never Patient Tobacco Use Status: Former Tobacco user Quit Date: 2 yrs ago Tobacco use type: Cigarette Cigarette Packs Per Day: 0.5 Years Smoked: 55 e-Cigarette/Vaping Use: Former Use Second Hand Smoke Exposure: No Advance Directives Date on File: 09/02/22 service: No Current occupational status: unemployed Review of Systems Const All systems reviewed & are unremarkable except as noted in HPI and below Physical Exam Vital Signs: Last Vital Signs Pulse 84 03/10/23 08:18 Resp 14 03/10/23 08:18 BP 110/80 03/10/23 08:18 Pulse Ox 96 03/10/23 08:18 Oxygen Delivery Method Room Air 03/10/23 08:18 BMI result Body Mass Index 26.4 General: Appears afebrile. Alert and oriented. Mood and affect appropriate. Follows and participates in conversation appropriately. Respiratory effort is unlabored. Able to transition from sit to stand unassisted. Ambulates with bilaterally normal heel strike and toe off. Tenderness to palpation in the midline overlying the upper lumbar vertebral bodies. No tenderness to palpation in the midline in the thoracic spine. Results Reviewed Results Reviewed: 11/20/22: CT LUMBAR SPINE FINDINGS: There is a moderate L1 vertebral body compression fracture. Compression is increased from 08/21/2022. There is a mild compression fracture of the superior endplate of the L4 vertebral body. This appears new from 08/21/2022 exam. There is degenerative disc disease at L4-L5 and L5-S1. There is lower lumbar spine facet arthritis. There is mild curvature of the lumbar sacral spine to the right . IMPRESSION: Moderate L1 vertebral body compression fracture increased from previous x-ray 08/21/2022. Mild L4 vertebral body compression fracture new from 08/21/2022 exam. Multilevel degenerative disc disease and facet arthritis of the lower lumbar spine. 01/14/23: CT CHEST WITHOUT CONTRAST FINDINGS: OSSEOUS AND SOFT TISSUE STRUCTURES: Severe L1 compression deformity is more pronounced than on 11/20/2022. Interval development of moderately severe L2 compression fracture. Unchanged T7 and T9 compression fractures with vertebroplasty cement. Mild gynecomastia. IMPRESSION: Redemonstration of advanced emphysema. No suspicious lung nodules. Worsening severe L1 and interval development of moderately severe L2 compression fractures. Assessment & Plan Assessment & Plan (1) Compression fracture of lumbar vertebra: Code(s): S32.000A - Wedge compression fracture of unspecified lumbar vertebra, initial encounter for closed fracture Qualifiers: Encounter type: subsequent encounter Lumbar vertebra fracture level: L2 Fracture healing: with routine healing Qualified Code(s): S32.020D - Wedge compression fracture of second lumbar vertebra, subsequent encounter for fracture with routine healing Plan Ordered an MRI of the lumbar spine to assess the new L2 compression fracture. The patient will receive a call to schedule an appointment. Following review of the MR images, we will consider undertaking kyphoplasty at the L2 and potentially L1 level. Scribed for Dr. Khalil by Shantanu Camejo, medical center representative, on 03/10/2023. I, Dr. Khalil, have personally reviewed and agree with the information entered by the scribe. Orders: Orders MR lumbar spine wo con Today S32.000A - Wedge compression fracture of unspecified lumbar vertebra, initial encounter for closed fracture Quality Reporting (2019) Adult ([facility] 138/2/) Smoking risk assessment performed?: Yes Patient Tobacco Use Status: Former Tobacco user Coding Level of Care Code Est Pt Level 3 (50266) Diagnoses Compression fracture of L2 vertebra with routine healing, subsequent encounter S32.020D Encounter type: subsequent encounter Lumbar vertebra fracture level: L2 Fracture healing: with routine healing
== END 2023-03-10 08:59 | disposition home or self-care (01) ==
PROVIDERS: PCP Internal Medicine; Visit Provider Internal Medicine
DX: S32.020D Wedge compression fracture of second lumbar vertebra, subsequent encounter for fracture with routine healing (principal)
CPT/HCPCS: 99213

== ENCOUNTER → 2023-03-10 08:13 | Outpatient (BNVA) | payer MEDICARE, MEDICAID, SELFPAY | PROVIDERS: PCP Internal Medicine; Visit Provider Internal Medicine | DX: S32.020D Wedge compression fracture of second lumbar vertebra, subsequent encounter for fracture with routine healing (principal) | CPT/HCPCS: 99212 ==

== ENCOUNTER 2023-03-12 09:08 | Outpatient (REF) | payer MEDICARE, MEDICAID, SELFPAY ==
--- NOTE | ~2023-03-12 | MR_ITS ---
EXAMINATION: MR LUMBAR SPINE WITHOUT CONTRAST CLINICAL INFORMATION: Wedge compression fracture. COMPARISON: CT lumbar spine 11/20/2022. TECHNIQUE: MRI of the lumbar spine was obtained using routine sequences without contrast. FINDINGS: There is bone marrow edema associated with a acute to subacute compression fractures of the L1 and L2 vertebral bodies. There is a stable buckling with retropulsion of posterior cortex at L1. There is been progression of vertebral body height loss at L2. Specifically there is now 50% vertebral height loss centrally at this level which represents a progression from 20% loss of vertebral body height on the CT scan of the lumbar spine from 11/20/2022. Otherwise stable compression deformity of the L4 vertebral body with subtle impaction of the upper endplate resulting in 20% vertebral height loss centrally. No anterior wedging or retropulsion of posterior cortex at this level. Spinal alignment is grossly maintained in the sagittal dimension. And loss of intervertebral disc height and T2 signal intensity at multiple levels related to disc degeneration. The tip of the conus medullaris is located at L1. No mass effect on the conus. Visualized distal cord signal intensity is normal. At T12-L1 the annular contour is normal. No canal or neuroforaminal compromise. At L1-L2 the annular contour is normal. No canal or neuroforaminal compromise. At L2-L3 there is a slightly bulging disc. No canal stenosis. No mass effect on the traversing or foraminal nerve roots. At L3-L4 there is a slightly bulging disc. No canal stenosis. No mass effect on the traversing or foraminal nerve roots. At L4-L5 there is a slightly bulging disc. Bilateral facet degenerative change. No canal stenosis. No mass effect on the traversing or foraminal nerve roots. At L5-S1 there is a bulging disc. Bilateral facet degenerative change. No canal stenosis. No mass effect on the traversing or foraminal nerve roots. Limited visualization of the retroperitoneal anatomy reveals a few small marginated benign-appearing cystic lesions within both kidneys. Psoas and paraspinal muscle groups are symmetric. MR/MR lumbar spine wo con IMPRESSION: There is bone marrow edema associated with acute to subacute compression fractures of the L1 and L2 vertebral bodies. There is progressive loss of vertebral body height at L2 compared to prior CT imaging from 11/20/2022. For instance there is now 50% vertebral height loss centrally which represents a progression from 20% on prior imaging. There is stable buckling with retropulsion of posterior cortex at L1. A chronic compression deformity of the L4 vertebral body is unchanged. No retropulsion of posterior cortex at this level. There is multilevel degenerative spondylosis of lumbar spine. No canal stenosis. No mass effect on the traversing or foraminal nerve roots.
[2023-03-12 11:19] LABS: Appearance Urine Clear; Color Urine Yellow; Glucose Urine UA Negative (Negative); Leukocyte Esterase Urine Negative (Negative); Nitrite Urine Negative (Negative); UMIC TRIGGER UA YES; Urine Blood Moderate (2+) (Negative); Urine Ketones Negative (Negative); Urine Protein Negative (Neg-Trace)
[2023-03-12 11:22] LABS: Bacteria Urine None Seen (None Seen); Hyaline Casts Urine 0-2 /LPF (0-2); RBC Urine >20 /HPF (0-2); Squamous Epithelial Cell Urine 0-2 /HPF (0-2); WBC Urine 0-5 /HPF (0-5)
== END 2023-03-12 09:09 | disposition home or self-care (01) ==
LOC: HO.MRI 09:08
PROVIDERS: Absent Provider Urology; PCP Internal Medicine; Visit Provider Internal Medicine
DX: R31.29 Other microscopic hematuria (principal); S32.000A Wedge compression fracture of unspecified lumbar vertebra, initial encounter for closed fracture
CPT/HCPCS: 72148; 81001; 87086

== ENCOUNTER 2023-03-14 10:19 | Outpatient (AMB) | payer MEDICARE, MEDICAID, SELFPAY ==
--- NOTE | 2023-03-14 10:39 | A.OFFVIS_ITS ---
Intake Vital Signs 03/14/23 10:40 Height 5 ft 11 in Weight 188 lb 14.978 oz BMI 26.3 Pulse 84 Pulse Source Pulse Oximeter Pulse Oximetry (%) 95 Oxygen Delivery Method Room Air Intake Visit Reasons: COPD Allergies No Known Allergies [No Known Allergies*] Allergy (Verified 03/14/23 10:41) HPI HPI Comments History of Present Illness Details The patient is a 67-year-old gentleman with a known history of tobacco dependency, COPD with significant emphysema and pulmonary nodules is here for evaluation. The patient to smoke was 2 point complaints of shortness of breath with activity and also complains of cough. Ofet-qx-rmgmahnq severity. Feels like his legs are very heavy in does get fatigued with activity. He does continue to use inhalers which include Flovent and Spiriva. He uses them with good adherence. He does not have a rescue inhaler at this time. We did talk about smoking. The patient is down to 10 cigarettes a day. He is struggling to decrease further. He was on Chantix but was making and depressed. Therefore will hold off on additional Chantix. He will be a good candidate for Wellbutrin however. Also, in conjunction with Wellbutrin I will prescribe the Nicotrol inhaler that he can use in between for breakthrough nicotine withdrawals. In the patient has had multiple CT scans of the chest in currently participating in the lung cancer screening program. Her last CT scan was done just a few days ago 02/05/2021 demonstrating stable right upper lobe pulmonary nodules. He does have moderate to severe emphysema primarily in the upper lung zones. In he also is following up with Dr. Arce from thoracic surgery. Will continue monitoring the pulmonary nodule in the right upper lobe closely. The patient does have a family history of lung cancer and also pulmonary fibrosis. 05/21/2022 the patient is here for pulcarlotta bennett follow-up visit. The patient recently was evaluated in the ER for worsening shortness of breath and palpitations. He was found to have atrial fibrillation with rapid ventricular response. During that visit he did undergo a CTA that ruled out pulmonary emboli. Again that identified the right lower lobe density. We did try to request a PET scan but based on the terminology we will not do it for density although that we do a for nodule. At this point it appears that the density although 1.8 cm in size has not changed in size which is reassuring. Although is only a very short interval between for 5 weeks. Therefore will go ahead and repeat the CT scan in 3 months. This area appears to be changing in size then will have to again requested PET scan. Does have extensive emphysema that needs to be considered specially if he is going to undergo any BP a invasive interventions. He does not use any oxygen. The patient does have use respiratory therapy that he uses the Trelegy daily with good effect. He has been on Eliquis now tolerating it well. Will have him return in 3 months time after his repeat CT scan. If he has any issues prior to that he is to call the office for an earlier evaluation. 08/16/2022 patient is here for pulmonary follow-up visit. He has multiple complaints including back pain and also radicular pain moderate severity. He also has a cough, moderate in severity. The cough has gotten better since he has quit smoking. Did have a repeat CT scan of the chest that was personally by me and also with the patient. It appears that the patchy right lower lobe airspace disease has improved although he does have a new area in the right middle lobe area. In addition to that has extensive emphysema. He also has a couple compression fractures that are likely the culprit of his back pain and also ret icular discomfort. The patient would like to find some relief from the discomfort. Therefore, I did refer him to Pain Management. in the meantime in view of the cough and also the abnormal findings on his CT scan will go ahead and perform a bronchoscopy to assess the airways look for any malignancies or concerning etiologies especially with the significant family history of lung cancer. 01/23/2023 the patient is here for pulmona ry follow-up visit. The patient overall has been doing well from a respiratory status. He is having significant amount of back pain. He did have a compression fracture that was 6 in now having issues with other back issues. She was referred to a neurosurgeon. At this point he is waiting that appointment. Clinically patient doing very well from a respiratory status he has stop smoking he has been using the Trelegy inhaler. Under go ahead and decrease the amount of steroids to the lower dose Trelegy. The patient also underwent a CT scan of the chest which I personally reviewed with him. All the findings are reassuring the nodular densities appear to be stable not smaller. He does have extensive emphysema however. That has not changed. No significant scarring noted. He will need another CT scan for another year. Will follow-up in the springtime. 03/14/2023 the patient is here for pulmonary follow-up visit. Overall the patient is doing very well from a respiratory status. He continues uses respiratory therapy with good effect. The patient has not required any prednisone or rescue therapy. He has been having significant back pain. He recently did have an MRI of the back demonstrating new or worsening lumbar compression fractures. He will be following up with pain management soon. He may need to have additional kyphoplasty done. He is going to be working with them. In the meantime more respiratory status the patient is doing well and she will be able to tolerate anesthesia for his procedure. The patient also had a CT scan of the chest demonstrating stable pulmonary nodules. He does have extensive emphysema. Overall the patient has been doing well after he is quit smoking. We did do alpha-1 testing which was completely normal. will go ahead and follow-up in 1 year. If the patient develops any symptoms prior to that he is call the office for an earlier assessment. [facility] Medical History Emphysema lung Ascending aortic aneurysm Atrial fibrillation Osteoporosis Pneumonia Compression fracture of body of thoracic vertebra History of alcohol abuse CHF exacerbation Compression fracture of thoracic spine, non-traumatic Nonischemic cardiomyopathy Tubular adenoma of colon Dyspnea Pulmonary nodules COPD (chronic obstructive pulmonary disease) Personal history of nicotine dependence Hyperlipidemia Constipation GERD (gastroesophageal reflux disease) Depression Hypertension Surgical History Hx of kyphoplasty History of surgery on left wrist (~03/21/10) Hx of endoscopy Hx of colonoscopy (~02/13/06) Hx of cataract surgery (~07/02/10) History of appendectomy History of gastric surgery Family History Mother Renal failure Father History of depression Brother Colon cancer Social History Household Members: None Housing: Apartment Are you a primary childcare aide to a significant other at home: No Do you presently have visiting nurse or other home services: No Alcohol intake: never Patient Tobacco Use Status: Former Tobacco user Quit Date: 2 yrs ago Tobacco use type: Cigarette Cigarette Packs Per Day: 0.5 Years Smoked: 55 e-Cigarette/Vaping Use: Former Use Second Hand Smoke Exposure: No Advance Directives Date on File: 09/02/22 service: No Current occupational status: unemployed Review of Systems Const Reports difficulty sleeping ENT Reports no additional complaints and Reports neck pain Card Denies chest pain and Reports dyspnea on exertion Resp Reports as per HPI, Reports cough, Denies hemoptysis, Denies pain on inspiration, Denies pain with cough and Reports dyspnea on exertion GI Reports bloating and Reports heartburn Musc Reports back pain, Reports myalgias, Reports limited range of motion, Reports muscle weakness (GENERALISED ) and Reports neck pain Neuro Reports no additional complaints and Reports radicular pain Psych Reports depression (ON MEDS ) Physical Exam Vital Signs: Last Vital Signs Pulse 84 03/14/23 10:40 Pulse Ox 95 03/14/23 10:40 Oxygen Delivery Method Room Air 03/14/23 10:40 BMI result Body Mass Index 26.3 Last Vital Signs Temp 98.0 F 08/28/22 07:30 Pulse 88 08/28/22 07:48 Resp 18 08/28/22 07:48 BP 110/60 08/28/22 07:30 Pulse Ox 94 08/28/22 07:30 O2 Del Method 08/28/22 07:30 O2 Flow Rate 2.5 08/28/22 07:30 BMI result Body Mass Index 28.5 Const General: alert Neck Neck: Yes normal visual inspection, Yes full ROM and Yes no lymphadenopathy Chest Chest palpation & inspection: normal inspection of the chest Resp Effort & Inspection: normal respiratory effort Auscultation: diminished lung sounds Cardio Rate: regular rate Rhythm: abnormal rhythm Heart sounds: S1 normal heart sound present and S2 normal heart sound present GI Palpation (GI): Soft to palpation and nontender Auscultation: normal bowel sounds Back/Spine/Pelvis Back: back tenderness Skin General skin exam: rashes and/or lesions noted Assessment & Plan Assessment & Plan (1) Pulmonary nodules: Code(s): R91.8 - Other nonspecific abnormal finding of lung field (2) COPD (chronic obstructive pulmonary disease): Code(s): J44.9 - Chronic obstructive pulmonary disease, unspecified Qualifiers: COPD type: emphysema Emphysema type: centrilobular Qualified Code(s): J43.2 - Centrilobular emphysema (3) Dyspnea: Code(s): R06.00 - Dyspnea, unspecified Qualifiers: Dyspnea type: dyspnea on exertion Qualified Code(s): R06.09 - Other forms of dyspnea (4) Pre-op chest exam: Code(s): Z01.811 - Encounter for preprocedural respiratory examination Plan Will need a repeat CT chest in 12 months continue Trelegy inhaler 100 overnight oximetry BARBARA as needed May proceed with anesthesia and vertebral fracture intervention F/U in 6-12 months Orders: Orders Overnight Pulse Oximetry 03/14/23 J44.9 - Chronic obstructive pulmonary disease, unspecified Quality Reporting (2019) Adult ([facility] ) Smoking risk assessment performed?: Yes Patient Tobacco Use Status: Former Tobacco user Coding Level of Care Code Est Pt Level 4 (80969) Diagnoses Pulmonary nodules R91.8 Centrilobular emphysema J43.2 COPD type: emphysema Emphysema type: centrilobular Dyspnea on exertion R06.09 Dyspnea type: dyspnea on exertion Pre-op chest exam Z01.811 Time Spent (min) 17
[2023-03-14 10:40] VITALS: PULSE 84; O2SAT 95; BMI 26.3
== END 2023-03-14 11:00 | disposition home or self-care (01) ==
PROVIDERS: PCP Internal Medicine; Visit Provider Hospitalist
DX: R91.8 Other nonspecific abnormal finding of lung field (principal); J43.2 Centrilobular emphysema; R06.09 Other forms of dyspnea; Z01.811 Encounter for preprocedural respiratory examination
CPT/HCPCS: 99214

== ENCOUNTER → 2023-03-14 10:19 | Outpatient (BNVA) | payer MEDICARE, MEDICAID, SELFPAY | PROVIDERS: PCP Internal Medicine; Visit Provider Hospitalist | DX: Z01.811 Encounter for preprocedural respiratory examination (principal); J43.2 Centrilobular emphysema; R06.09 Other forms of dyspnea | CPT/HCPCS: 99212 ==

== ENCOUNTER 2023-03-19 07:20 | Day surgery (SDC) | payer MEDICARE, MEDICAID, SELFPAY ==
--- NOTE | 2023-03-18 09:23 | HO.ANESPROP2 ---
Documented by User: Nai Rush NP 03/18/23 10:41 HPI - Anesthesia Eval Consult details Narrative: 67yo M for Lumbar 2 Kyphoplasty (possible lumbar 1) Cardiac optimized: NICMP (EF normalized). PAF (stable) Eliquis for afib. Ok to hold per cardiology. [facility] Active Problems Active Problems: All Active Problems (Updated 03/16/23 @ 20:45 by Layton Sterling MD) Compression fracture of lumbar vertebra (Acute) Pre-op chest exam (Acute) BPH (benign prostatic hyperplasia) (Acute) Right lower lobe pneumonia (Acute) Screening PSA (prostate specific antigen) (Acute) Microscopic hematuria (Acute) Degeneration, intervertebral disc, lumbosacral (Acute) Atrial fibrillation with rapid ventricular response (Acute) Pneumonia (Acute) Compression fracture of T9 vertebra (Acute) Pulmonary nodule (Acute) Right clavicle fracture (Acute) COVID-19 (Acute) Chronic idiopathic constipation (Acute) Small bowel motility disorder (Acute) Hematemesis with nausea (Acute) Chronic heart failure (Acute) Dysphagia (Acute) Erosive esophagitis (Acute) Arthritis of both elbows (Acute) Systolic dysfunction (Acute) COPD (chronic obstructive pulmonary disease) (Acute) Smoker (Acute) Hemorrhoids (Acute) Abdominal bloating (Acute) Rectal prolapse (Acute) Glaucoma (Acute) Peptic ulcer disease (Acute) Osteoporosis (Acute) Pneumonia (Acute) Compression fracture of body of thoracic vertebra (Acute) Tubular adenoma of colon (Acute) Dyspnea (Acute) Personal history of nicotine dependence (Acute) Past Medical History Medical History Emphysema lung Ascending aortic aneurysm Atrial fibrillation Osteoporosis Pneumonia Compression fracture of body of thoracic vertebra History of alcohol abuse CHF exacerbation Compression fracture of thoracic spine, non-traumatic Nonischemic cardiomyopathy Tubular adenoma of colon Dyspnea Pulmonary nodules COPD (chronic obstructive pulmonary disease) Personal history of nicotine dependence Hyperlipidemia Constipation GERD (gastroesophageal reflux disease) Depression Hypertension Family History Family History Mother Renal failure Father History of depression Brother Colon cancer Family history of problems with anesthesia: No Surgical History Surgical History Hx of kyphoplasty History of surgery on left wrist (~03/21/10) Hx of endoscopy Hx of colonoscopy (~02/13/06) Hx of cataract surgery (~07/02/10) History of appendectomy History of gastric surgery History of Problems with Anesthesia: No Social History Social History Household Members: None Housing: Apartment Are you a primary animal care supervisor to a significant other at home: No Do you presently have visiting nurse or other home services: No Alcohol intake: never Patient Tobacco Use Status: Former Tobacco user Quit Date: 2 yrs ago Tobacco use type: Cigarette Cigarette Packs Per Day: 0.5 Years Smoked: 55 e-Cigarette/Vaping Use: Former Use Second Hand Smoke Exposure: No Use of substances other than those prescribed or required for medical reasons: No Are you DNR?: No Advance Directives: No Advance Directives Information Provided: Yes Advance Directives on File: No Advance Directives Date on File: 09/02/22 service: No Current occupational status: unemployed Meds Allergies Allergy/AdvReac Type Severity Reaction Status Date / Time No Known Allergies Allergy Verified 03/14/23 10:41 [No Known Allergies*] Home Medications Medication Instructions Recorded Confirmed Last Taken Type latanoprost 0.005 % eye drops 1 drp ophthalmic (eye) BEDTIME 03/27/20 03/10/23 11/19/22 History quetiapine 300 mg tablet 300 mg PO BEDTIME 03/27/20 03/10/23 11/19/22 History simvastatin 20 mg tablet 20 mg PO BEDTIME 03/27/20 03/10/23 11/19/22 History furosemide 20 mg tablet (Lasix) 20 mg PO DAILY 02/12/23 03/10/23 03/04/23 06:00 History trazodone 100 mg tablet 100 - 200 mg PO BEDTIME PRN 02/27/23 03/10/23 Unknown History Insomnia dexlansoprazole 60 mg 60 mg PO DAILY@0630 03/04/23 03/10/23 03/04/23 06:00 History capsule,biphase delayed release (Dexilant) naloxone 4 mg/actuation nasal spray intranasal 03/10/23 03/10/23 Unknown History Exam Exam Date and Time: March 18, 2023922 Pertinent Lab Results Pertinent Lab Results: Laboratory Tests 12/26/22 08:57 WBC 5.7 Hgb 12.7 L Hct 40.3 L Plt Count 279 D Sodium 140 Potassium 4.3 Chloride 110 H Carbon Dioxide 23 BUN 19 H Creatinine 1.13 Narrative Narrative: EKG 08/2022 aflutter with variable AV block nonspecific ST and T wave abnormality ECHO 06/2022 1. Nml LV function 2 Overall LV systolic function is normal with an EF 60-65% 3. Diastolic filling pattern is nml Assessment and Plan Assessment Anesthesia Assessment: Chart Reviewed Final Anesthetic Review Family History of Problems with Anesthesia: No History of Problems with Anesthesia: No Documented by User: Essence Campuzano MD 03/19/23 07:59 PMFSH Past Medical History Medical History Emphysema lung Ascending aortic aneurysm Atrial fibrillation Osteoporosis Pneumonia Compression fracture of body of thoracic vertebra History of alcohol abuse CHF exacerbation Compression fracture of thoracic spine, non-traumatic Nonischemic cardiomyopathy Tubular adenoma of colon Dyspnea Pulmonary nodules COPD (chronic obstructive pulmonary disease) Personal history of nicotine dependence Hyperlipidemia Constipation GERD (gastroesophageal reflux disease) Depression Hypertension Family History Family History Mother Renal failure Father History of depression Brother Colon cancer Surgical History Surgical History Hx of kyphoplasty History of surgery on left wrist (~03/21/10) Hx of endoscopy Hx of colonoscopy (~02/13/06) Hx of cataract surgery (~07/02/10) History of appendectomy History of gastric surgery Social History Social History Household Members: None Housing: Apartment Are you a primary animal care supervisor to a significant other at home: No Do you presently have visiting nurse or other home services: No Alcohol intake: never Patient Tobacco Use Status: Former Tobacco user Quit Date: 2 yrs ago Tobacco use type: Cigarette Cigarette Packs Per Day: 0.5 Years Smoked: 55 e-Cigarette/Vaping Use: Former Use Second Hand Smoke Exposure: No Use of substances other than those prescribed or required for medical reasons: No Are you DNR?: No Advance Directives: No Advance Directives Information Provided: Yes Advance Directives on File: No Advance Directives Date on File: 09/02/22 service: No Current occupational status: unemployed Meds Allergies Allergy/AdvReac Type Severity Reaction Status Date / Time No Known Allergies Allergy Verified 03/14/23 10:41 [No Known Allergies*] Home Medications Medication Instructions Recorded Confirmed Last Taken Type latanoprost 0.005 % eye drops 1 drp ophthalmic (eye) BEDTIME 03/27/20 03/10/23 11/19/22 History quetiapine 300 mg tablet 300 mg PO BEDTIME 03/27/20 03/10/23 11/19/22 History simvastatin 20 mg tablet 20 mg PO BEDTIME 03/27/20 03/10/23 11/19/22 History furosemide 20 mg tablet (Lasix) 20 mg PO DAILY 02/12/23 03/10/23 03/04/23 06:00 History trazodone 100 mg tablet 100 - 200 mg PO BEDTIME PRN 02/27/23 03/10/23 Unknown History Insomnia dexlansoprazole 60 mg 60 mg PO DAILY@0630 03/04/23 03/10/23 03/04/23 06:00 History capsule,biphase delayed release (Dexilant) naloxone 4 mg/actuation nasal spray intranasal 03/10/23 03/10/23 Unknown History Exam Airway Mallampati Class: II TM Dist: >3cm Neck ROM: Limited Heart: AF Lungs: cta Assessment and Plan Assessment Anesthesia Assessment: Anesthesia Plan Discussed Final Anesthetic Review NPO: Yes ASA Class: III Final Preanesthetic Review: No Changes in Pt Med Stat, Meds/Allgs Chart Reviewed, Consent Obtained/Reviewed and Anes Risks/Benef Reviewed Patient Risk: Intermediate Procedure Risk: Intermediate Anesthetic Plan Anesthetic Plan: GA and MAC: Disposition: Standard PACU
--- NOTE | ~2023-03-19 | FL_ITS ---
EXAMINATION: XR FLUOROSCOPY WITH IMAGES CLINICAL INFORMATION: Kyphoplasty, lumbar. COMPARISON: None available. TECHNIQUE: Fluoroscopy Supervised By: Dr. Riki Khalil. Fluoroscopy Time: 4.45 minutes. Cumulative Dose: 264.98 mGy. DAP: 28.5 Gycm2. Images: 6. FINDINGS: Fluoroscopy guidance provided for kyphoplasty performed at 2 contiguous levels FL/FL guidance in OR IMPRESSION: Fluoroscopy guidance for kyphoplasty
[2023-03-19 07:35] VITALS: BMI 26.2
[2023-03-19 07:51] VITALS: BP 123/88; PULSE 80; RESP 16; TEMP 36.1; O2SAT 97
[2023-03-19] MEDS: Lactated Ringers 1,000 ML 100 ML IVCONT (07:59)
--- NOTE | 2023-03-19 09:29 | MHC.SHP ---
Pre-Procedural Eval Section A Date of Service: 03/19/23 The patient is an INPATIENT: No Changes since office visit: Yes Patient answered all questions The History & Physical has been completed within 30 days and I have reviewed it.: Yes Section B Chief Complaint: Age-related osteoporosis with current pathological Relevant Family History (Specify if Yes): No Relevant Social History: None Present Medications: see Short Stay Collaborative assessment Medical History: No relevant PMH History of Previous Operations: No relevant previous surgery Allergies: Allergies Allergy/AdvReac Type Severity Reaction Status Date / Time No Known Allergies Allergy Verified 03/14/23 10:41 [No Known Allergies*] Review of Systems Sugical H&P ROS: Negative: Constitution, Cardiovascular and Respiratory Exam Surgical H&P Exam: Normal: HEENT, Normal: Heart and Normal: Lungs Plan Diagnosis/Plan: Unchanged I have reviewed the history and physical and performed a pertinent physical examination on my patient. No changes have occurred unless specified. Time Spent With Patient Time: Total time managing care of this patient today ____ minutes.
[2023-03-19 10:17] LABS: MRSA Nasal PCR NEGATIVE (Negative); SA Nasal PCR NEGATIVE (Negative)
[2023-03-19 11:43] VITALS: BP 124/87; PULSE 76; RESP 14; TEMP 36.7; O2SAT 98
[2023-03-19 11:58] VITALS: BP 119/82; PULSE 69; RESP 16; O2SAT 97
[2023-03-19 12:13] VITALS: BP 118/84; PULSE 67; RESP 14; O2SAT 97
[2023-03-19 12:28] VITALS: BP 132/83; PULSE 61; RESP 16; O2SAT 98
[2023-03-19 12:43] VITALS: BP 126/89; PULSE 76; RESP 14; TEMP 36.3; O2SAT 99
--- NOTE | 2023-03-19 14:56 | P.BOP_ITS ---
Brief Operative Note Date of Service: 03/19/23 Pre-op diagnosis: Osteoporotic compression fracture, L1 and L2 vertebral bodies Post-op diagnosis: same Procedure: Balloon Kyphoplasty with Insertion of HV-R Bone Cement, L1 and L2 Vertebral Bod ies Implants: None Surgeon: Riki Khalil MD Anesthesia: MAC Was an Administrative Support Assistant used for this Procedure?: No Estimated blood loss (mL): 30 Pathology: none sent Condition: stable Disposition: PACU
--- NOTE | 2023-03-19 14:57 | P.OP_ITS ---
Operative Note Operative Note Date of Service: 03/19/23 Narrative: Kyphon Balloon Kyphoplasty with Insertion of HV-R Bone Cement, L1 and L2 Vertebral Bodies The patient was brought to the operating room and sedated by the director of managed services. The patient was positioned prone on the table. The back was prepped and draped. Two image intensifiers (C-arms) were brought into the AP and lateral positions and the L2 and L1 pedicles were identified and marked with a skin marker. A transpedicular approach to the vertebral body was deemed appropriate. A spinal needle was advanced along the expected course of the introducer up to the pedicle and the tract was anesthetized with 0.25% ropivacaine/1% lidocaine with epinephrine. A stab incision was made 3.5 cm superolateral to the pedicles with a 15 blade. A 10-gauge bevel introducer was advanced through the L2 pedicle to the junction of the pedicle and vertebral body on the right side first. Positioning was confirmed on the AP and lateral plane at regular intervals to ensure bevel position within the cortical boundaries of the pedicle until the body of the vertebra was accessed. Following satisfactory placement of the osteointroducer, the bevel tip was removed, leaving the cannula in place, positioned approximately 1 cm past the posterior vertebral body wall. Through the cannula, a drill was advanced into the vertebral body under fluoroscopic guidance toward the anterior cortex to create a channel, stopping approximately 5 mm posterior to the anterior cortical wall in the lateral view and approaching the ipsilateral edge of the spinous process in the AP view. After completing the entry into the vertebral body, a 15 mm inflatable bone tamp was inserted through the cannula and advanced under fluoroscopic guidance into the vertebral body near the anterior cortex. The radiopaque marker bands on the bone tamp were iden tified using AP and lateral images and confirmed to be within the anterior 2/3rd of the body. The above sequence of instrument placement was then repeated on the left side. Once both bone tamps were in position, they were inflated sequentially in increments of 0.25 to 0.5 cc of contrast, with careful attention being paid to the inflation pressures and balloon position. The inflation was monitored with AP and lateral imaging. The final balloon volume was 4 cc on the left and 4 cc on the right side. Maximum pressure applied on either side was approximately 350 psi. There was no breach of the lateral wall or anterior cortex of the vertebral body. Direct reduction of the fracture was achieved and end plate movement was noted. Under fluoroscopic imaging, and the use of the bone void fillers, internal fixation was achieved through a low-pressure injection of appropriately cured KYPHON HV-R methylmethacrylate bone cement. The cavity was filled with a total volume of 3.2 cc on the left side and 3.2 cc on the right side. No vascular, disc or spinal extravasation of the cement was noted. Once the bone cement had hardened, the bevel tip was reinserted into each of the cannulas to clear it and they were were then removed. The same process was repeated for the L1 vertebral body. The total volume of cement filled in the L1 cavities was 2.2 cc on the left side and 2.2 cc on the right side. No vascular, disc or spinal extravasation of the cement was noted. Close attention was paid to the slight retropulsed segment at the level of the L1 vertebral body which remained stable throughout balloon inflation and cement injection. Post-procedure, the incisions were closed with 2-0 silk sutures. The patient was kept in the prone position for approximately 10 minutes post cement injection. He was then turned supine and brought to the PACU where he reported minimal back pain. He was able to move both lower extremities at this time. The patient was subsequently discharged with postprocedure and follow-up instructions. Estimated blood loss was rougly 30 mL.
== END 2023-03-19 14:19 | disposition home or self-care (01) ==
PROVIDERS: Registered Nurse Emergency; PCP Student in an Organized Health Care Education/Training Program; Visit Provider Internal Medicine
PROC: (CPT 22514; principal; 2023-03-19 09:00)
DX: M80.08XA Age-related osteoporosis with current pathological fracture, vertebra(e), initial encounter for fracture (principal); M51.36 Other intervertebral disc degeneration, lumbar region; I11.0 Hypertensive heart disease with heart failure; I50.9 Heart failure, unspecified; I48.91 Unspecified atrial fibrillation; J44.9 Chronic obstructive pulmonary disease, unspecified; E78.5 Hyperlipidemia, unspecified; Z79.01 Long term (current) use of anticoagulants; Z79.51 Long term (current) use of inhaled steroids; Z79.899 Other long term (current) drug therapy; Z98.890 Other specified postprocedural states; Z87.891 Personal history of nicotine dependence
CPT/HCPCS: 22514; 22515; 87640; 87641; C1713; J0690; J1100; J1885; J2250; J2405; J2795; J3010; Q9967

== ENCOUNTER → 2023-03-19 07:20 | Outpatient (BNV) | payer MEDICARE, MEDICAID, SELFPAY | PROVIDERS: PCP Student in an Organized Health Care Education/Training Program; Visit Provider Internal Medicine | DX: M80.08XA Age-related osteoporosis with current pathological fracture, vertebra(e), initial encounter for fracture (principal) | CPT/HCPCS: 22514; 22515 ==

== ENCOUNTER 2023-04-07 10:53 | Outpatient (AMB) | payer MEDICARE, MEDICAID, SELFPAY ==
[2023-04-07 11:20] VITALS: BP 105/75; PULSE 92; RESP 14; O2SAT 95; BMI 26.6
--- NOTE | 2023-04-07 11:20 | MHC.OFFVIS ---
Intake Vital Signs 04/07/23 11:20 Height 5 ft 11 in Weight 191 lb BMI 26.6 BP 105/75 Blood Pressure Location Lt brachial Position Sitting Respiration 14 Pulse 92 Pulse Source Pulse Oximeter Pulse Oximetry (%) 95 Oxygen Delivery Method Room Air Intake Visit Reasons: S/p L2 Kyphoplasty (Possible L1) Senior Ui Software Engineer Required: Yes Senior Ui Software Engineer Name: Prefers sister to translate Allergies No Known Allergies [No Known Allergies*] Allergy (Verified 04/07/23 11:25) Medication List - Last Reconciled 04/07/23 by Linda Oh LPN abaloparatide (Tymlos) 80 mcg (0.04 mL) subcut DAILY albuterol sulfate 90 mcg/actuation (Ventolin HFA) 2 puffs inhalation Q6H PRN 30 days apixaban (Eliquis) 5 mg PO BID dexlansoprazole (Dexilant) 60 mg PO DAILY@0630 lniuhnhlven-hbrqhueqh-rgabvvmi 100-62.5-25 mcg (Trelegy Ellipta) 1 inh inhalation DAILY 30 days furosemide (Lasix) 20 mg PO DAILY latanoprost 0.005% 1 drp ophthalmic (eye) BEDTIME linaclotide (Linzess) 145 mcg PO DAILY@0600 metoclopramide HCl 10 mg PO QIDACHS naloxone 4 mg/actuation intranasal oxycodone 5 mg PO Q6H PRN quetiapine 300 mg PO BEDTIME simvastatin 20 mg PO BEDTIME sotalol 80 mg PO BID trazodone 100 - 200 mg PO BEDTIME PRN HPI S/p L2 Kyphoplasty (Possible L1) HPI Details 67-year-old male who presents today to the office for a status post L2 kyphoplasty. The patient reports 80% relief following the procedure. He reports mild discomfort in his midback. He is currently on Tymlos 80 mcg once daily. He has not tried muscle relaxants in the past. He states that he was taking oxycodone, which he discontinued taking. He is now able to sit for extended periods of time following his surgery. He reports neck pain. He denies any pain in his arms or hands; however, he reports pain in his wrist. Past procedure: 03/19/23: Kyphon Balloon Kyphoplasty with Insertion of HV-R Bone Cement, L1 and L2 Vertebral Bodies: 80% relief. [facility] Medical History Emphysema lung Ascending aortic aneurysm Atrial fibrillation Osteoporosis Pneumonia Compression fracture of body of thoracic vertebra History of alcohol abuse CHF exacerbation Compression fracture of thoracic spine, non-traumatic Nonischemic cardiomyopathy Tubular adenoma of colon Dyspnea Pulmonary nodules COPD (chronic obstructive pulmonary disease) Personal history of nicotine dependence Hyperlipidemia Constipation GERD (gastroesophageal reflux disease) Depression Hypertension Surgical History Hx of kyphoplasty History of surgery on left wrist (~03/21/10) Hx of endoscopy Hx of colonoscopy (~02/13/06) Hx of cataract surgery (~07/02/10) History of appendectomy History of gastric surgery Family History Mother Renal failure Father History of depression Brother Colon cancer Social History Household Members: None Housing: Apartment Are you a primary family member caretaker to a significant other at home: No Do you presently have visiting nurse or other home services: No Alcohol intake: never Patient Tobacco Use Status: Former Tobacco user Quit Date: 2 yrs ago Tobacco use type: Cigarette Cigarette Packs Per Day: 0.5 Years Smoked: 55 e-Cigarette/Vaping Use: Former Use Second Hand Smoke Exposure: No Advance Directives Date on File: 09/02/22 service: No Current occupational status: unemployed Review of Systems Const All systems reviewed & are unremarkable except as noted in HPI and below Physical Exam Vital Signs: Last Vital Signs Pulse 92 04/07/23 11:20 Resp 14 04/07/23 11:20 BP 105/75 04/07/23 11:20 Pulse Ox 95 04/07/23 11:20 Oxygen Delivery Method Room Air 04/07/23 11:20 BMI result Body Mass Index 26.6 General: Appears afebrile. Alert and oriented. Mood and affect appropriate. Follows and participates in conversation appropriately. Respiratory effort is unlabored. Able to transition from sit to stand unassisted. Ambulates with bilaterally normal heel strike and toe off. Results Reviewed Results Reviewed: No imaging is available for review. Assessment & Plan Assessment & Plan (1) Right wrist pain: Code(s): M25.531 - Pain in right wrist Plan A referral was provided to a hand surgeon for further evaluation of right wrist pain. I prescribed tizanidine 2 mg PO B.I.D. for pain and muscle spasticity. Continue treatment for osteoporosis. Follow-up as needed. Scribed for Dr. Khalil by Shantanu Camejo, medical insurance collector, on 04/07/2023. I, Dr. Khalil, have personally reviewed and agree with the information entered by the scribe. Orders: Referrals Hand Surgery Referral M25.531 - Pain in right wrist Medications: New tizanidine 2 mg PO BID PRN 60 tabs 0RF muscle spasticity Quality Reporting (2019) Adult ([facility] 138/08/14/68) Smoking risk assessment performed?: Yes Patient Tobacco Use Status: Former Tobacco user Coding Level of Care Code Est Pt Level 3 (13387) Diagnoses Right wrist pain M25.531
== END 2023-04-07 11:50 | disposition home or self-care (01) ==
PROVIDERS: PCP Internal Medicine; Visit Provider Internal Medicine
DX: M25.531 Pain in right wrist (principal)
CPT/HCPCS: 99213

== ENCOUNTER → 2023-04-07 10:53 | Outpatient (BNVA) | payer MEDICARE, MEDICAID, SELFPAY | PROVIDERS: PCP Internal Medicine; Visit Provider Internal Medicine | DX: M25.531 Pain in right wrist (principal) | CPT/HCPCS: 99212 ==

== ENCOUNTER 2023-04-22 11:56 | Outpatient (REF) | payer MEDICARE, MEDICAID, SELFPAY ==
[2023-04-22 13:23] LABS: MANUAL DIFF FLAG NO
[2023-04-22 13:35] LABS: Basophils Percent Auto 0.3 % (0-2); Eosinophils Absolute Auto 0.2 X10*3/uL (0.0-0.4); Eosinophils Percent Auto 3.2 % (0-4); Hematocrit 42.5 % (42.0-52.0); Hemoglobin 13.3 g/dl (14.0-18.0); Imm Gran Abs Auto 0.02 X10*3/uL (0.00-0.03); Imm Gran Pct Auto 0.3 % (0.0-0.4); Lymphocytes Absolute Auto 1.4 X10*3/uL (1.2-4.9); Lymphocytes Percent Auto 22.2 % (20-40); Mean Corpuscular HGB Conc 31.3 g/dl (31.0-36.0); Mean Corpuscular Hemoglobin 25.3 pg (27.0-33.0); Mean Corpuscular Volume 80.8 fL (80.0-98.0); Mean Platelet Volume 9.8 fL (9.4-12.4); Monocytes Absolute Auto 0.6 X10*3/uL (0.1-1.2); Monocytes Percent Auto 9.2 % (2-11); Neutrophils Absolute Auto 4.2 x10*3/uL (2.0-8.3); Neutrophils Percent Auto 64.8 % (45-73); Platelet Count 273 X10*3/uL (160-400); Red Blood Count 5.26 X10*6/uL (4.60-5.80); Red Cell Distribution Width 15.2 % (11.0-16.0); White Blood Count 6.5 X10*3/uL (4.8-10.8)
[2023-04-22 14:06] LABS: Alanine Aminotransferase 14 U/L (0-40); Alkaline Phosphatase 77 U/L (39-117); Anion Gap 15 (12-20); Aspartate Amino Transferase 16 U/L (5-37); Bilirubin Direct 0.2 mg/dL (0.0-0.5); Bilirubin Total 0.7 mg/dL (0.0-1.0); Blood Urea Nitrogen 18 mg/dL (9-16); Calcium 9.7 mg/dL (8.4-10.2); Carbon Dioxide 23 mmol/L (22-29); Chloride 109 mmol/L (96-108); Estimated Glomerular Filt Rate > 60; Glucose Random 138 mg/dL (60-115); Potassium 4.5 mmol/L (3.3-5.1); Sodium 142 mmol/L (135-145); Total Protein 8.1 g/dL (6.5-8.0)
== END 2023-04-22 11:57 | disposition home or self-care (01) ==
LOC: HO.HHCL 11:56
PROVIDERS: Visit Provider Internal Medicine
DX: I10 Essential (primary) hypertension (principal); R31.21 Asymptomatic microscopic hematuria
CPT/HCPCS: 36415; 80048; 80076; 85025

== ENCOUNTER 2023-05-19 09:35 | Outpatient (REF) | payer MEDICARE, MEDICAID, SELFPAY ==
[2023-05-19 12:49] VITALS: BMI 26.9
[2023-05-19 12:50] VITALS: BP 124/87; PULSE 102; RESP 16; TEMP 36.6; O2SAT 98
== END 2023-05-19 09:36 | disposition home or self-care (01) ==
LOC: HO.MS 09:35
PROVIDERS: PCP Student in an Organized Health Care Education/Training Program; Visit Provider Ophthalmology
PROC: (CPT 66821; principal; 2023-05-19 11:20)
DX: H26.491 Other secondary cataract, right eye (principal)
CPT/HCPCS: 66821

== ENCOUNTER 2023-06-05 11:24 | Outpatient (REF) | payer MEDICARE, MEDICAID, SELFPAY ==
--- NOTE | ~2023-06-05 | XR_ITS ---
EXAMINATION: XR WRIST, RIGHT CLINICAL INFORMATION: Right wrist pain. COMPARISON: None available. TECHNIQUE: PA, lateral, and oblique views of the right wrist. FINDINGS: There is slight dorsal tilt of the lunate with volar tilt of the scaphoid, consistent with a dorsal intercalated segment instability deformity. No significant widening of the scapholunate interval. There is joint space narrowing at the capitolunate articulation with articular sclerosis. Mild osteoarthritis at the 1st CMC and triscaphe joints as well as the ulnocarpal joint. Bones are osteopenic. XR/XR wrist RT min 3V IMPRESSION: 1. 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 Alignment of the proximal carpal row is suggestive of a dorsal intercalated segment instability deformity as can be seen with scapholunate ligament injury. 2. Osteopenia.
== END 2023-06-05 11:25 | disposition home or self-care (01) ==
LOC: HO.HOSX 11:24
PROVIDERS: PCP Internal Medicine; Visit Provider Physical Medicine & Rehabilitation
DX: M25.531 Pain in right wrist (principal)
CPT/HCPCS: 73110; 99202

== ENCOUNTER 2023-06-05 11:24 | Outpatient (AMB) | payer MEDICARE, MEDICAID, SELFPAY ==
--- NOTE | 2023-06-05 11:25 | MHC.OFFVIS ---
Intake Vital Signs 06/05/23 11:26 Height 5 ft 11 in Weight 193 lb BMI 26.9 Intake Visit Reasons: Pain in right wrist Intake Note: Avery 68 yr old male presents today for a new patient visit for an evaluation for his right wrist pain. States pain is mainly on his dorsum aspect of wrist. States his pain increases with movement and started in December. No injury he can recall. Currently states his pain has gone away and now feels a lot better. Allergies No Known Allergies [No Known Allergies*] Allergy (Verified 06/05/23 11:29) Medication List - Last Reconciled 06/05/23 by Suzanna Carver MD abaloparatide (Tymlos) 80 mcg (0.04 mL) subcut DAILY albuterol sulfate 90 mcg/actuation (Ventolin HFA) 2 puffs inhalation Q6H PRN 30 days apixaban (Eliquis) 5 mg PO BID dexlansoprazole (Dexilant) 60 mg PO DAILY@0630 ehuteogbovk-toikybszq-lxeaamkn 100-62.5-25 mcg (Trelegy Ellipta) 1 inh inhalation DAILY 30 days furosemide (Lasix) 20 mg PO DAILY latanoprost 0.005% 1 drp ophthalmic (eye) BEDTIME linaclotide (Linzess) 145 mcg PO DAILY@0600 metoclopramide HCl 10 mg PO QIDACHS naloxone 4 mg/actuation intranasal oxycodone 5 mg PO Q6H PRN quetiapine 300 mg PO BEDTIME simvastatin 20 mg PO BEDTIME sotalol 80 mg PO BID tizanidine 2 mg PO BID PRN trazodone 100 - 200 mg PO BEDTIME PRN HPI HPI Comments History of Present Illness Details Sister here to interpret, Pashto speaking. Right handed. On/off symptoms, since December, without inciting injury. Pain with wrist extension, pointing to dorsum. Denies swelling. Denies numbness. Denies weakness. Unrelated, he had lumbar fractures, May-September, without injury. Thought from osteoporosis. [facility] Medical History Emphysema lung Ascending aortic aneurysm Atrial fibrillation Osteoporosis Pneumonia Compression fracture of body of thoracic vertebra History of alcohol abuse CHF exacerbation Compression fracture of thoracic spine, non-traumatic Nonischemic cardiomyopathy Tubular adenoma of colon Dyspnea Pulmonary nodules COPD (chronic obstructive pulmonary disease) Personal history of nicotine dependence Hyperlipidemia Constipation GERD (gastroesophageal reflux disease) Depression Hypertension Surgical History Hx of kyphoplasty History of surgery on left wrist (~03/21/10) Hx of endoscopy Hx of colonoscopy (~02/13/06) Hx of cataract surgery (~07/02/10) History of appendectomy History of gastric surgery Family History Mother Renal failure Father History of depression Brother Colon cancer Social History (Updated 06/05/23 @ 11:30 by GUILLERMO Valdez) Household Members: None Housing: Apartment Are you a primary acute care nursing assistant to a significant other at home: No Do you presently have visiting nurse or other home services: No Alcohol intake: never Patient Tobacco Use Status: Former Tobacco user Quit Date: 2 yrs ago Tobacco use type: Cigarette Cigarette Packs Per Day: 0.5 Years Smoked: 55 e-Cigarette/Vaping Use: Former Use Second Hand Smoke Exposure: No Advance Directives Date on File: 09/02/22 service: No Current occupational status: unemployed and disabled 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 We will still send for xray today. Could show arthritic changes. I offered to put him on a wrist splint but sister does not think he will wear it and he says he does not need because he does not have pain. Will do xray and await results for further recommendations. Assessment and plan discussed with patient, and patient was agreeable. All questions were answered thoroughly. Suzanna Carver MD, PABLO Board Certified, [place] [employer] and [employer] (ABPMR) Board Certified, [place] [employer] (ABEM) Orders: Orders XR wrist RT min 3V Today M25.531 - Pain in right wrist Quality Reporting (2019) Adult ([facility] 138/08/14/68) Smoking risk assessment performed?: Yes Patient Tobacco Use Status: Former Tobacco user Coding Level of Care Code New Pt Level 3 (52962) Diagnoses Right wrist pain M25.531
[2023-06-05 11:26] VITALS: BMI 26.9
== END 2023-06-05 12:04 | disposition home or self-care (01) ==
PROVIDERS: PCP Internal Medicine; Visit Provider Physical Medicine & Rehabilitation
DX: M25.531 Pain in right wrist (principal)
CPT/HCPCS: 99203

== ENCOUNTER 2023-07-09 15:46 | Inpatient (IN) | payer MEDICARE, MEDICAID, SELFPAY ==
[2023-07-09 16:15] VITALS: BP 110/87; PULSE 95; RESP 20; TEMP 36.9; O2SAT 98; BMI 28.4
--- NOTE | 2023-07-09 16:20 | ED_ITS ---
HPI - General Adult General Chief complaint: GI Bleed Stated complaint: black vomit, black stool Time Seen by Provider: 07/09/23 20:43 Source: patient Mode of arrival: ambulatory Limitations: no limitations History of Present Illness HPI narrative: Patient with history of non bleeding duodenal ulcer in remote past on Eliquis for AFib with history of GERD on Dexilant comes here for coffee colored vomiting 2 times yesterday for by dark stool and discomfort in upper abdomen no dizziness no bleeding from any other place patient took his Eliquis earlier today history of alcohol use in the past+ quit last year Related Data Home Medications Medication Instructions Recorded Confirmed latanoprost 0.005 % eye drops 1 drp ophthalmic (eye) BEDTIME 03/27/20 07/09/23 quetiapine 300 mg tablet 300 mg PO BEDTIME 03/27/20 07/09/23 simvastatin 20 mg tablet 20 mg PO BEDTIME 03/27/20 07/09/23 furosemide 20 mg tablet (Lasix) 20 mg PO DAILY 02/12/23 07/09/23 trazodone 100 mg tablet 100 - 200 mg PO BEDTIME PRN 02/27/23 07/09/23 Insomnia dexlansoprazole 60 mg 60 mg PO DAILY@0630 03/04/23 07/09/23 capsule,biphase delayed release (Dexilant) famotidine 40 mg tablet 40 mg PO BEDTIME PRN heartburn 07/09/23 07/09/23 metoclopramide HCl 10 mg tablet 10 mg PO BID 07/09/23 07/09/23 Previous Rx's Medication Instructions Recorded apixaban 5 mg tablet (Eliquis) 5 mg PO BID #60 tabs 05/06/22 sotalol 80 mg tablet 80 mg PO BID #80 tabs 06/01/22 albuterol sulfate 90 mcg/actuation 2 puff inhalation Q6H PRN wheezing 09/26/22 aerosol inhaler (Ventolin HFA) 30 days #8.5 grams abaloparatide (Tymlos) 80 mcg (0.04 mL) subcut DAILY 11/13/22 #1.56 mL linaclotide 145 mcg capsule 145 mcg PO DAILY@0600 #30 caps 01/08/23 (Linzess) fluticasone fur. 100 mcg-umeclid 1 inh inhalation DAILY 30 days #60 01/23/23 62.5 mcg-vilant 25 mcg ea inhalat.powder (Trelegy Ellipta) tizanidine 2 mg tablet 2 mg PO BID PRN muscle spasticity 04/07/23 #60 tabs Allergies Allergy/AdvReac Type Severity Reaction Status Date / Time No Known Allergies Allergy Verified 07/09/23 16:19 [No Known Allergies*] Review of Systems 2 Review of Systems: Yes all other systems are reviewed and are negative PMFSH Past Medical History Onset Date is defined in the Problem List Problems that require an onset date and time if occurred within 24 hrs of arrival to the ED Aortic Dissection and Rupture; Neurologic impairment; Cardiopulmonary Arrest; Endotracheal Intubation; Insertion or Replacement of Mechanical Circulatory Assist Device Medical History Emphysema lung Ascending aortic aneurysm Atrial fibrillation Osteoporosis Pneumonia Compression fracture of body of thoracic vertebra History of alcohol abuse CHF exacerbation Compression fracture of thoracic spine, non-traumatic Nonischemic cardiomyopathy Tubular adenoma of colon Dyspnea Pulmonary nodules COPD (chronic obstructive pulmonary disease) Personal history of nicotine dependence Hyperlipidemia Constipation GERD (gastroesophageal reflux disease) Depression Hypertension Surgical History Hx of kyphoplasty History of surgery on left wrist (~03/21/10) Hx of endoscopy Hx of colonoscopy (~02/13/06) Hx of cataract surgery (~07/02/10) History of appendectomy History of gastric surgery Family History Family History Mother Renal failure Father History of depression Brother Colon cancer Social History Social History Household Members: None Housing: Apartment Are you a primary respiratory care specialist to a significant other at home: No Do you presently have visiting nurse or other home services: No Alcohol intake: never Patient Tobacco Use Status: Former Tobacco user Quit Date: 2 yrs ago Tobacco use type: Cigarette Cigarette Packs Per Day: 0.5 Years Smoked: 55 e-Cigarette/Vaping Use: Former Use Second Hand Smoke Exposure: No Advance Directives: Yes Advance Directives on File: Yes Advance Directives Date on File: 09/02/22 service: No Current occupational status: unemployed and disabled 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 Oriented X3. No acute distress. Eyes: Mild pallor ENT: Pharynx normal. Oral Mucosa moist Neck: Normal inspection. Neck supple. CVS: Normal heart rate and rhythm. Pulses normal. Respiratory: No respiratory distress. Equal air entry bilateral, no wheezing/rales/rhonchi Abdomen: Soft mild epigastric discomfort+ Bowel sounds are present, no mass palpable, no CVA tenderness rectum: Dark stool guaiac positive Skin: Skin warm and dry. Normal skin color. Normal skin turgor. Extremities: No lower extremity edema. No calf tenderness Neuro: Oriented X 3. No motor deficit. Course Course Course Narrative: RME:?68 yo here w/ abdominal cramping/pain x2 days. Reports lying down yesterday and feeling like he was going to throw up, reports forcing him self to vomit. vomit was dark colored. last BM this morning, dark stool. reports dark stools x2 weeks. no iron or peptobismol use. HE IS ON ELIQUIS. denies cp or sob. Abd firm, distended, nontender. no rebound or guarding. normoactive bs plan for labs, OBS +/- imaging. Full HPI, ROS and PE to be performed by the primary ED provider. Medications Administered Generic Name Dose Route Start Last Admin Trade Name Freq PRN Reason Stop Dose Admin Sodium Chloride 1,000 mls @ 125 mls/hr 07/09/23 21:32 07/09/23 22:05 Ns IVCONT 07/10/23 05:31 125 mls/hr .Q8H ONE Administration Discontinued Medications Generic Name Dose Route Start Last Admin Trade Name Freq PRN Reason Stop Dose Admin Morphine Sulfate 4 mg 07/09/23 21:18 07/09/23 22:05 Morphine Sulfate 4 Mg/Ml Cartridge IVPUSH 07/09/23 21:19 4 mg ONCE ONE Administration Protocol Ondansetron HCl 4 mg 07/09/23 21:18 07/09/23 22:05 Ondansetron Hcl 4 Mg/2 Ml Vial IVPUSH 07/09/23 21:19 4 mg ONCE ONE Administration Pantoprazole Sodium 80 mg 07/09/23 21:14 07/09/23 22:05 Pantoprazole Sodium 40 Mg/10 Ml Vial IVPUSH 07/09/23 21:15 80 mg ONCE ONE Administration Medical Decision Making Medical Decision Making [facility] Narrative: Patient history of remote duodenal ulcer on Eliquis comes here for vomiting small amount of blood H&Hct dropped from 13.3/42.5 on 04/22/2023 now 10.5/35.6. No active vomiting in the ER patient did not take his Eliquis in the evening. Will start patient on Protonix will admit for further evaluation Differential Diagnosis Differential Diagnoses: The differential diagnosis associated with the presentation includes Duodenal ulcers/peptic ulcer/gastritis Admission/Observation Consideration of admission/observation: Escalation of care including admission/observation considered Consult Healthcare Provider Management of the patient was discussed with: Hospitalist Lab Data [facility] Lab Attestation statement: I reviewed the patient's lab results. 07/09/23 16:35 07/09/23 16:35 Labs: Lab Results 07/09/23 07/09/23 Range/Units 16:35 21:12 WBC 7.1 (4.8-10.8) X10*3/uL RBC 4.73 (4.60-5.80) X10*6/uL Hgb 10.5 L D (14.0-18.0) g/dl Hct 35.6 L (42.0-52.0) % MCV 75.3 L (80.0-98.0) fL MCH 22.2 L (27.0-33.0) pg MCHC 29.5 L (31.0-36.0) g/dl RDW 17.0 H (11.0-16.0) % Plt Count 275 (160-400) X10*3/uL MPV 9.9 (9.4-12.4) fL Immature Gran % (Auto) 0.3 (0.0-0.4) % Neut % (Auto) 67.1 (45-73) % Lymph % (Auto) 23.5 (20-40) % [place] % (Auto) 7.4 (2-11) % Eos % (Auto) 1.3 (0-4) % Baso % (Auto) 0.4 (0-2) % Lymph # (Auto) 1.7 (1.2-4.9) X10*3/uL [place] # (Auto) 0.5 (0.1-1.2) X10*3/uL Eos # (Auto) 0.1 (0.0-0.4) X10*3/uL Baso # (Auto) 0.0 (0.0-0.2) X10*3/uL Abs Immat Gran (auto) 0.02 (0.00-0.03) X10*3/uL Absolute Neuts (auto) 4.8 (2.0-8.3) x10*3/uL Absolute Nucleated RBC 0.000 (0.0-0.012) X10*3/uL Nucleated RBC % (auto) 0.0 (0.0-0.2) /100WBC PT 12.7 (11.1-13.3) SEC INR 1.0 (0.9-1.1) Sodium 139 (135-145) mmol/L Potassium 4.8 (3.3-5.1) mmol/L Chloride 108 (96-108) mmol/L Carbon Dioxide 25 (22-29) mmol/L Anion Gap 11 L (12-20) BUN 16 (9-16) mg/dL Creatinine 1.24 (0.5-1.4) mg/dL Estim Creat Clear Calc 63.4 Estimated GFR 58 Random Glucose 112 (60-115) mg/dL Calcium 9.0 D (8.4-10.2) mg/dL Magnesium 2.1 (1.6-2.6) mg/dL Total Bilirubin 0.4 (0.0-1.0) mg/dL AST 18 (5-37) U/L ALT 18 (0-40) U/L Alkaline Phosphatase 79 (39-117) U/L Total Protein 7.8 (6.5-8.0) g/dL Albumin 4.1 (3.5-5.0) g/dL Lipase 20 (8-78) U/L Stool Occult Blood POSITIVE (NEGATIVE) Discharge Plan Discharge Clinical Impression: Acute upper gastrointestinal bleeding Patient Disposition: Admitted As Inpatient
[2023-07-09 16:39] LABS: MANUAL DIFF FLAG NO
[2023-07-09 16:41] LABS: Basophils Percent Auto 0.4 % (0-2); Eosinophils Absolute Auto 0.1 X10*3/uL (0.0-0.4); Eosinophils Percent Auto 1.3 % (0-4); Hematocrit 35.6 % (42.0-52.0); Hemoglobin 10.5 g/dl (14.0-18.0); Imm Gran Abs Auto 0.02 X10*3/uL (0.00-0.03); Imm Gran Pct Auto 0.3 % (0.0-0.4); Lymphocytes Absolute Auto 1.7 X10*3/uL (1.2-4.9); Lymphocytes Percent Auto 23.5 % (20-40); Mean Corpuscular HGB Conc 29.5 g/dl (31.0-36.0); Mean Corpuscular Hemoglobin 22.2 pg (27.0-33.0); Mean Corpuscular Volume 75.3 fL (80.0-98.0); Mean Platelet Volume 9.9 fL (9.4-12.4); Monocytes Absolute Auto 0.5 X10*3/uL (0.1-1.2); Monocytes Percent Auto 7.4 % (2-11); Neutrophils Absolute Auto 4.8 x10*3/uL (2.0-8.3); Neutrophils Percent Auto 67.1 % (45-73); Platelet Count 275 X10*3/uL (160-400); Red Blood Count 4.73 X10*6/uL (4.60-5.80); White Blood Count 7.1 X10*3/uL (4.8-10.8)
[2023-07-09 16:47] LABS: Prothrombin Time 12.7 SEC (11.1-13.3)
[2023-07-09 16:57] LABS: Alanine Aminotransferase 18 U/L (0-40); Albumin Level 4.1 g/dL (3.5-5.0); Alkaline Phosphatase 79 U/L (39-117); Anion Gap 11 (12-20); Aspartate Amino Transferase 18 U/L (5-37); Bilirubin Total 0.4 mg/dL (0.0-1.0); Blood Urea Nitrogen 16 mg/dL (9-16); Carbon Dioxide 25 mmol/L (22-29); Chloride 108 mmol/L (96-108); Creatinine Clr Calc Pharmacy 63.4; Estimated Glomerular Filt Rate 58; Glucose Random 112 mg/dL (60-115); Lipase 20 U/L (8-78); Magnesium 2.1 mg/dL (1.6-2.6); Potassium 4.8 mmol/L (3.3-5.1); Sodium 139 mmol/L (135-145); Total Protein 7.8 g/dL (6.5-8.0)
[2023-07-09 20:14] VITALS: BP 135/90; PULSE 96; RESP 14; TEMP 36.7; O2SAT 100
[2023-07-09 21:27] LABS: OBS Int Ctl Valid YES; OBS1 POSITIVE (NEGATIVE)
--- NOTE | 2023-07-09 21:34 | P.HPHOSP_ITS ---
History of Present Illness Date of Service: 07/09/23 Chief Complaint: dark stool and coffee ground emesis This is a 68-year-old male with pertinent history of atrial fibrillation on Eliquis, congestive heart failure with reduced ejection fraction, COPD not on home oxygen, mixed hyperlipidemia, essential hypertension, mood disorder, gastroesophageal reflux disease who presents to the emergency department for evaluation of coffee-ground emesis. Patient states he had multiple episodes of coffee-ground emesis that started 1 day prior to presentation. On the day of presentation he also had 2 episodes of dark-colored stools. Is on Eliquis for atrial fibrillation and has history of nonbleeding duodenal ulcer in the past. Denies fever, chills or abdominal discomfort. No chest discomfort, palpitations, shortness of breath, changes in urinary habits. In the emergency department, stool occult blood positive and hemoglobin found to be low. Review of Systems 2 Constitutional: Constitutional: Reports no additional constitutional complaints Cardiovascular: Cardiovascular: Reports no additional cardiovascular complaints Respiratory: Respiratory: Reports no additional respiratory complaints Gastrointestinal: Gastrointestinal: Reports melena, Reports coffee ground emesis, Reports loose stools and Reports vomiting Genitourinary: Genitourinary: Reports no additional male genitourinary complaints [facility] Medical History Emphysema lung Ascending aortic aneurysm Atrial fibrillation Osteoporosis Pneumonia Compression fracture of body of thoracic vertebra History of alcohol abuse CHF exacerbation Compression fracture of thoracic spine, non-traumatic Nonischemic cardiomyopathy Tubular adenoma of colon Dyspnea Pulmonary nodules COPD (chronic obstructive pulmonary disease) Personal history of nicotine dependence Hyperlipidemia Constipation GERD (gastroesophageal reflux disease) Depression Hypertension Family History Mother Renal failure Father History of depression Brother Colon cancer Surgical History Hx of kyphoplasty History of surgery on left wrist (~03/21/10) Hx of endoscopy Hx of colonoscopy (~02/13/06) Hx of cataract surgery (~07/02/10) History of appendectomy History of gastric surgery Social History Household Members: None Housing: Apartment Are you a primary healthcare management to a significant other at home: No Do you presently have visiting nurse or other home services: No Alcohol intake: never Patient Tobacco Use Status: Former Tobacco user Quit Date: 2 yrs ago Tobacco use type: Cigarette Cigarette Packs Per Day: 0.5 Years Smoked: 55 e-Cigarette/Vaping Use: Former Use Second Hand Smoke Exposure: No Advance Directives: Yes Advance Directives on File: Yes Advance Directives Date on File: 09/02/22 service: No Current occupational status: unemployed and disabled 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 Meds Allergies Allergy/AdvReac Type Severity Reaction Status Date / Time No Known Allergies Allergy Verified 07/09/23 16:19 [No Known Allergies*] Active Medications: Current Medications Sodium Chloride (Ns) 1,000 mls @ 125 mls/hr IVCONT .Q8H ONE Stop: 07/10/23 05:31 Home Medications Medication Instructions Recorded Confirmed Last Taken Type latanoprost 0.005 % eye drops 1 drp ophthalmic (eye) BEDTIME 03/27/20 06/05/23 11/19/22 History quetiapine 300 mg tablet 300 mg PO BEDTIME 03/27/20 06/05/23 11/19/22 History simvastatin 20 mg tablet 20 mg PO BEDTIME 03/27/20 06/05/23 11/19/22 History furosemide 20 mg tablet (Lasix) 20 mg PO DAILY 02/12/23 06/05/23 03/04/23 06:00 History trazodone 100 mg tablet 100 - 200 mg PO BEDTIME PRN 02/27/23 06/05/23 Unknown History Insomnia dexlansoprazole 60 mg 60 mg PO DAILY@0630 03/04/23 06/05/23 03/04/23 06:00 History capsule,biphase delayed release (Dexilant) naloxone 4 mg/actuation nasal spray intranasal 03/10/23 06/05/23 Unknown History Physical Exam 2 Vital Signs and Narrative: Vital Signs: Last Vital Signs Temp 98.0 F 07/09/23 20:14 Pulse 96 07/09/23 20:14 Resp 14 07/09/23 20:14 BP 135/90 H 07/09/23 20:14 Pulse Ox 100 07/09/23 20:14 O2 Del Method Room Air 07/09/23 20:14 BMI result Body Mass Index 28.4 Middle-aged male lying in bed in no distress Neck supple, no JVD Irregularly irregular, S1-S2 heard Regular breath sounds bilaterally, no wheezing or crackles appreciated Abdomen soft nontender, no guarding, no rigidity Patient is awake, alert and oriented to self, place, time and person ; no focal motor deficit Psych: Normal mood No pedal edema Results Labs 07/09/23 16:35 07/09/23 16:35 Labs: Laboratory Results - last 24 hr 07/09/23 07/09/23 16:35 21:12 MCV 75.3 L MCH 22.2 L MCHC 29.5 L RDW 17.0 H Plt Count 275 MPV 9.9 Immature Gran % (Auto) 0.3 Neut % (Auto) 67.1 Lymph % (Auto) 23.5 [place] % (Auto) 7.4 Eos % (Auto) 1.3 Baso % (Auto) 0.4 Lymph # (Auto) 1.7 [place] # (Auto) 0.5 Eos # (Auto) 0.1 Baso # (Auto) 0.0 Abs Immat Gran (auto) 0.02 Absolute Neuts (auto) 4.8 Absolute Nucleated RBC 0.000 Nucleated RBC % (auto) 0.0 PT 12.7 INR 1.0 Anion Gap 11 L Estim Creat Clear Calc 63.4 Estimated GFR 58 Random Glucose 112 Calcium 9.0 D Magnesium 2.1 Total Bilirubin 0.4 AST 18 ALT 18 Alkaline Phosphatase 79 Total Protein 7.8 Albumin 4.1 Lipase 20 Stool Occult Blood POSITIVE Assessment and Plan (1) Acute upper GI bleed: Status: Acute Plan This is a 68-year-old male with pertinent history of atrial fibrillation on Eliquis, congestive heart failure with reduced ejection fraction, COPD not on home oxygen, mixed hyperlipidemia, essential hypertension, mood disorder, gastroesophageal reflux disease who presents to the emergency department for evaluation of coffee-ground emesis. #. Acute upper GI bleed: Will admit patient with cardiac monitoring. Hold Eliquis. Consulted Gastroenterology, appreciate assistance. Initiating IV Protonix. Will keep patient NPO #. Acute blood loss anemia, in the setting of above: Monitor H&H and transfuse as appropriate. Obtaining iron studies #. Paroxysmal atrial fibrillation: Hold Eliquis as above #. COPD: No exacerbation during admission. Continue home inhalers #. Essential hypertension: Hold antihypertensives in the setting of GI bleed #. Congestive heart failure with reduced ejection fraction: No decompensation during admission. Hold Lasix #. Mood disorder: Continue home mood stabilizers Med rec pending DVT prophylaxis: Mechanical Full code Admit as inpatient and will require two night minimum hospital stay for hemodynamic monitoring, evaluation of GI bleed, monitoring of H&H (as above), which is not possible in a lesser acute setting. Specialist consult pending Quality Stroke Does the patient have a stroke diagnosis?: No VTE Prior VTE?: No VTE Risk Level:: Medical - moderate - high VTE Device Contraindication: N/A - Device Ordered VTE Drug Contraindication: Treatment Not Indicated
[2023-07-09] MEDS: Morphine Sulfate 4 MG/ML CARTRIDGE IVPUSH (22:05)
[2023-07-09] MEDS: ondansetron HCL 4 MG/2 ML VIAL IVPUSH (22:05)
[2023-07-09] MEDS: Pantoprazole Sodium 40 MG/10 ML VIAL 80 MG IVPUSH (22:05)
[2023-07-09] MEDS: 0.9 % Sodium Chloride 1,000 ML 125 ML IVCONT (22:05)
--- NOTE | 2023-07-09 22:25 | PHA.MEDREC ---
Pharmacy Consult ? Medication Reconciliation Pharmacy has completed the medication reconciliation. Patient confirmed medication through clerical adviser using claim history. Cherie Cedillo CPhT
[2023-07-09 22:39] LABS: Iron 17 mcg/dL (45-160); Percent Iron Saturation 5 % (15-50); Total Iron Binding Capacity 321 mcg/dL (228-428); Unsaturated Iron Binding 304 ug/dL
[2023-07-09 22:53] VITALS: BP 120/76; PULSE 76; RESP 18; TEMP 36.9; O2SAT 94
[2023-07-10] VITALS (8 sets, daily range): BP systolic 104–115; BP diastolic 67–88; PULSE 66–92; RESP 14–20; TEMP 36.1–37.1; O2SAT 92–96
--- NOTE | 2023-07-10 | ECG_ITS ---
Test Reason : CP Blood Pressure : / mmHG Vent. Rate : 097 BPM Atrial Rate : 097 BPM P-R Int : 148 ms QRS Dur : 072 ms QT Int : 358 ms P-R-T Axes : 051 054 090 degrees QTc Int : 454 ms Normal sinus rhythm Nonspecific T wave abnormality Abnormal ECG When compared with ECG of 13-NOV-2022 06:08, ST no longer depressed in Anterolateral leads Nonspecific T wave abnormality now evident in Inferior leads Nonspecific T wave abnormality now evident in Anterolateral leads Referred By: Brian Nieves Electronically Signed By:KING JAMES
[2023-07-10] MEDS: Acetaminophen 325 MG TABLET 650 MG PO ×2 (03:36→09:10)
[2023-07-10 05:50] LABS: MANUAL DIFF FLAG NO
[2023-07-10 05:55] LABS: Basophils Percent Auto 0.3 % (0-2); Eosinophils Absolute Auto 0.1 X10*3/uL (0.0-0.4); Eosinophils Percent Auto 1.4 % (0-4); Hematocrit 29.2 % (42.0-52.0); Hemoglobin 8.6 g/dl (14.0-18.0); Imm Gran Abs Auto 0.02 X10*3/uL (0.00-0.03); Imm Gran Pct Auto 0.3 % (0.0-0.4); Lymphocytes Percent Auto 33.8 % (20-40); Mean Corpuscular HGB Conc 29.5 g/dl (31.0-36.0); Mean Corpuscular Hemoglobin 22.2 pg (27.0-33.0); Mean Corpuscular Volume 75.5 fL (80.0-98.0); Mean Platelet Volume 10.5 fL (9.4-12.4); Monocytes Absolute Auto 0.6 X10*3/uL (0.1-1.2); Monocytes Percent Auto 9.7 % (2-11); Neutrophils Absolute Auto 3.2 x10*3/uL (2.0-8.3); Neutrophils Percent Auto 54.5 % (45-73); Platelet Count 227 X10*3/uL (160-400); Red Blood Count 3.87 X10*6/uL (4.60-5.80); White Blood Count 5.9 X10*3/uL (4.8-10.8)
[2023-07-10 06:11] LABS: Anion Gap 12 (12-20); Blood Urea Nitrogen 17 mg/dL (9-16); Calcium 8.2 mg/dL (8.4-10.2); Carbon Dioxide 24 mmol/L (22-29); Chloride 110 mmol/L (96-108); Creatinine Clr Calc Pharmacy 89.3; Estimated Glomerular Filt Rate > 60; Glucose Random 90 mg/dL (60-115); Potassium 4.6 mmol/L (3.3-5.1); Sodium 141 mmol/L (135-145)
[2023-07-10] MEDS: Pantoprazole Sodium 40 MG/10 ML VIAL IVPUSH ×2 (06:20→15:22)
--- NOTE | 2023-07-10 07:02 | PC.NURSE ---
resting quietly in bed with even and unlabored respirations. continues to endorse headache this morning stating it is 10/10, received tylenol earlier with no relief. vss, offering no other complaints at this time, call [facility] within reach
--- NOTE | 2023-07-10 07:53 | PM.GICN ---
History of Present Illness Data of Consult Service Date: 07/10/23 <Luca Gonzales MD - Last Filed: 07/30/23 23:52> Requesting physician: Andreas Rodgers <Luca Gonzales MD - Last Filed: 07/30/23 23:52> Primary Care Provider: Rigoberto Madrigal MD <Luca Gonzales MD - Last Filed: 07/30/23 23:52> HPI Reason for consult: Upper GI bleeding <Luca Gonzales MD - Last Filed: 07/30/23 23:52> 68 YM with atrial fibrillation on Eliquis, congestive heart failure with reduced ejection fraction, COPD not on home oxygen, mixed hyperlipidemia, hypertension, mood disorder, GERD seen at [facility] [place] [place] ED on 07/09/23 with coffee-ground emesis. Patient stated he had multiple episodes of coffee-ground emesis that started 1 day prior to presentation. History was obtained with the help of [facility] [place] [place] [employer] petroleum sampler, Sammi On the day of presentation he had 2 episodes of dark-colored stools. Pt is on Eliquis for atrial fibrillation (last dose was on 07/09/23 in the am) and has history of nonbleeding duodenal ulcer in the past. Pt denied fever, chills or abdominal or chest discomfort, palpitations, shortness of breath, changes in urinary habits. In the emergency department, stool occult blood positive and H & H was 10.5 & 35.6. Pt was started on IV PPI and anti emetics and admitted for further management. Repeat labs today showed H & H of 8.6 & 29.2 Iron studies are suggestive of iron-deficiency anemia. Pt has a COPD and nonischemic cardiomyopathy and is followed by Dr Geoff Francis (Pt had an EF of 45 to 50% in the past which returned to normal per cardiology note from 02/28/23 when pt was seen for clearance for a urological procedure) PAST MEDICAL HISTORY REVIEW OF MEDICAL RECORDS: 2017 Pt had an EGD by Dr Farah for evaluation of dysphagia. EGD showed a small hiatal hernia, erosive esophagitis and duodenitis. 03/06/2017 patient had a colonoscopy by Dr. Farah which revealed diverticulosis. Two adenomatous polyps were removed. <Luca Gonzales MD - Last Filed: 07/30/23 23:52> Review of Systems Review of Systems: Yes all other systems are reviewed and are negative <Luca Gonzales MD - Last Filed: 07/30/23 23:52> Cardiovascular: Cardiovascular: Reports no additional cardiovascular complaints <Luca Gonzales MD - Last Filed: 07/30/23 23:52> Respiratory: Respiratory: Reports no additional respiratory complaints <Luca Gonzales MD - Last Filed: 07/30/23 23:52> Gastrointestinal: Gastrointestinal: Reports melena, Reports coffee ground emesis, Reports loose stools and Reports vomiting <Luca Gonzales MD - Last Filed: 07/30/23 23:52> Genitourinary: Genitourinary: Reports no additional male genitourinary complaints <Luca Gonzales MD - Last Filed: 07/30/23 23:52> [facility] Past Medical History Medical History: Medical History Emphysema lung Ascending aortic aneurysm Atrial fibrillation Osteoporosis Pneumonia Compression fracture of body of thoracic vertebra History of alcohol abuse CHF exacerbation Compression fracture of thoracic spine, non-traumatic Nonischemic cardiomyopathy Tubular adenoma of colon Dyspnea Pulmonary nodules COPD (chronic obstructive pulmonary disease) Personal history of nicotine dependence Hyperlipidemia Constipation GERD (gastroesophageal reflux disease) Depression Hypertension <Luca Gonzales MD - Last Filed: 07/30/23 23:52> Family History Family History: Family History Mother Renal failure Father History of depression Brother Colon cancer <Luca Gonzales MD - Last Filed: 07/30/23 23:52> Surgical History Surgical History: Surgical History Hx of kyphoplasty History of surgery on left wrist (~03/21/10) Hx of endoscopy Hx of colonoscopy (~02/13/06) Hx of cataract surgery (~07/02/10) History of appendectomy History of gastric surgery <Luca Gonzales MD - Last Filed: 07/30/23 23:52> Social History Social History: Social History Household Members: None Housing: Apartment Are you a primary congregational care pastor to a significant other at home: No Do you presently have visiting nurse or other home services: No Alcohol intake: never Patient Tobacco Use Status: Former Tobacco user Quit Date: 2 yrs ago Tobacco use type: Cigarette Cigarette Packs Per Day: 0.5 Years Smoked: 55 e-Cigarette/Vaping Use: Former Use Second Hand Smoke Exposure: No Advance Directives Date on File: 09/02/22 service: No Current occupational status: unemployed and disabled 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 <Luca Gonzales MD - Last Filed: 07/30/23 23:52> Meds Allergies/Adverse reactions: Allergies Allergy/AdvReac Type Severity Reaction Status Date / Time No Known Allergies Allergy Verified 07/09/23 16:19 [No Known Allergies*] <Luca Gonzales MD - Last Filed: 07/30/23 23:52> Active Medications: Current Medications Acetaminophen (Acetaminophen 325 Mg Tablet) 650 mg PO Q6H PRN PRN Reason: Pain, Mild (Pain Scale 1-3) Last Admin: 07/10/23 03:36 Dose: 650 mg Albuterol Sulfate (Albuterol Sulfate 90 Mcg 8 Gm Inhaler) 2 puff INHALE Q6H PRN PRN Reason: wheezing Fluticasone/Umeclidinium/Vilanterol (Fluticasone/Umeclidinium/Vilanterol 100/62.5/25 Blst.W.Dev) 1 puff INHALE DAILY YESS[facility]IA Latanoprost (Latanoprost 0.005 % Ophth Evelyn 2.5 Ml Drops) 1 drop EYE-BOTH BEDTIME YESS[facility] Melatonin (Melatonin 3 Mg Tablet) 6 mg PO BEDTIME PRN PRN Reason: Insomnia Non-Formulary Medication (Abaloparatide [Tymlos]) 80 mcg SUBCUT DAILY YESSENIA Non-Formulary Medication (Dexlansoprazole [Dexilant]) 60 mg PO DAILY@0630 YESS[facility] Non-Formulary Medication (Linaclotide [Linzess]) 145 mcg PO DAILY@0600 Y[facility] Non-Formulary Medication (Simvastatin) 20 mg PO BEDTIME [facility] Ondansetron HCl (Ondansetron Hcl 4 Mg/2 Ml Vial) 4 mg IVPUSH Q8H PRN PRN Reason: Nausea and Vomiting Pantoprazole Sodium (Pantoprazole Sodium 40 Mg/10 Ml Vial) 40 mg IVPUSH BID@0630,1630 [facility] Last Admin: 07/10/23 06:20 Dose: 40 mg Quetiapine Fumarate (Quetiapine Fumarate 300 Mg Tablet) 300 mg PO BEDTIME [facility] Sodium Chloride (0.9 % Sodium Chloride Flush 3 Ml Syringe) 3 ml IVFLUSH QSHIFT [facility] Last Admin: 07/10/23 07:07 Dose: Not Given Sotalol HCl (Sotalol Hcl 80 Mg Tablet) 80 mg PO BID [facility] Tizanidine HCl (Tizanidine Hcl 4 Mg Tablet) 2 mg PO BID PRN PRN Reason: muscle spasticity Trazodone HCl (Trazodone Hcl 100 Mg Tablet) 100 - 200 mg PO BEDTIME PRN PRN Reason: Insomnia <Luca Gonzales MD - Last Filed: 07/30/23 23:52> Home medications: Home Medications Medication Instructions Recorded Confirmed Last Taken Type latanoprost 0.005 % eye drops 1 drp ophthalmic (eye) BEDTIME 03/27/20 07/09/23 07/08/23 History quetiapine 300 mg tablet 300 mg PO BEDTIME 03/27/20 07/09/23 07/08/23 History simvastatin 20 mg tablet 20 mg PO BEDTIME 03/27/20 07/09/23 07/08/23 History furosemide 20 mg tablet (Lasix) 20 mg PO DAILY 02/12/23 07/09/23 07/09/23 History trazodone 100 mg tablet 100 - 200 mg PO BEDTIME PRN 02/27/23 07/09/23 07/08/23 History Insomnia famotidine 40 mg tablet 40 mg PO BEDTIME PRN heartburn 07/09/23 07/09/23 Unknown History ascorbic acid (vitamin C) 250 mg 250 mg PO DAILY 07/29/23 Unknown History tablet ferrous gluconate 324 mg (38 mg mg PO DAILY 07/29/23 Unknown History iron) tablet <Luca Gonzales MD - Last Filed: 07/30/23 23:52> Physical Exam Vital Signs: Vital Signs: Last Vital Signs Temp 97.8 F 07/10/23 07:01 Pulse 80 07/10/23 07:01 Resp 14 07/10/23 07:01 BP 115/83 07/10/23 07:01 Pulse Ox 95 07/10/23 07:01 O2 Del Method Room Air 07/10/23 07:01 BMI result Body Mass Index 28.4 <Luca Gonzales MD - Last Filed: 07/30/23 23:52> General: A&Ox3, in no acute distress CVS: RRR, peripheral pulses 2+, no LE edema Pulm: lungs clear to auscultation Abd: Non tender, non distended Psych: Appropriate affect <Luca Gonzales MD - Last Filed: 07/30/23 23:52> Results Labs CBC & Chem 7: 07/11/23 07:45 07/10/23 04:59 <Luca Gonzales MD - Last Filed: 07/30/23 23:52> Labs: Short CBC 07/09/23 07/10/23 Range/Units 16:35 04:59 WBC 7.1 5.9 (4.8-10.8) X10*3/uL Hgb 10.5 L D 8.6 L (14.0-18.0) g/dl Hct 35.6 L 29.2 L (42.0-52.0) % Plt Count 275 227 (160-400) X10*3/uL BMP 07/09/23 07/10/23 16:35 04:59 Sodium 139 141 Potassium 4.8 4.6 Chloride 108 110 H Carbon Dioxide 25 24 BUN 16 17 H Creatinine 1.24 0.88 Calcium 9.0 D 8.2 L D Liver Function 07/09/23 Range/Units 16:35 Total Bilirubin 0.4 (0.0-1.0) mg/dL AST 18 (5-37) U/L ALT 18 (0-40) U/L Alkaline Phosphatase 79 (39-117) U/L Albumin 4.1 (3.5-5.0) g/dL <Luca Gonzales MD - Last Filed: 07/30/23 23:52> Assessment and Plan (1) Acute upper gastrointestinal bleeding: Status: Resolved <Luca Gonzales MD - Last Filed: 07/30/23 23:52> (2) Erosive esophagitis: Status: Acute <Luca Gonzales MD - Last Filed: 07/30/23 23:52> 68 YM with atrial fibrillation on Eliquis, congestive heart failure with reduced ejection fraction, COPD not on home oxygen, mixed hyperlipidemia, hypertension, mood disorder, GERD seen at [facility] [place] [place] ED on 07/09/23 with coffee-ground emesis. Patient stated he had multiple episodes of coffee-ground emesis that started 1 day prior to presentation. On the day of presentation he had 2 episodes of dark-colored stools. Pt is on Eliquis for atrial fibrillation (last dose was on 07/09/23 in the am) and has history of nonbleeding duodenal ulcer in the past. In the emergency department, stool occult blood positive and H & H was 10.5 & 35.6. Repeat labs today showed H & H of 8.6 & 29.2 Iron studies are suggestive of iron-deficiency anemia. GI bleeding and anemia likely due to peptic ulcer disease related to Advil use, erosive esophagitis, upper GI AVMs or Dieulafoy's Pt has a COPD and nonischemic cardiomyopathy and is followed by Dr Geoff Francis (Pt had an EF of 45 to 50% in the past which returned to normal per cardiology note from 02/28/23 when pt was seen for clearance for a urological procedure) RECOMMENDATIONS: 1. Agree with IV PPI and antiemetics. 2. Pt scheduled for an EGD on 07/10/23 for further evaluation <Luca Gonzales MD - Last Filed: 07/30/23 23:52> Procedures Date of Service Date of Service: 07/30/23 <Luca Gonzales MD - Last Filed: 07/30/23 23:52> 07/11/23 <Nayeli Billings MD - Last Filed: 07/11/23 13:31>
[2023-07-10] MEDS: Sotalol HCL 80 MG TABLET PO ×2 (09:11→21:19)
--- NOTE | 2023-07-10 09:57 | P.PNIM_ITS ---
Subjective Subjective Date of Service: 07/10/23 <Flor Jamesmark - Last Filed: 07/10/23 10:57> 07/10/23 <Brian Nieves MD - Last Filed: 07/10/23 12:10> Interval History: Is feeling better today. No abdominal pain, n/v, syncope, SOB or CP. Does complain of headache that began last night, describes it as achy; no symptoms of aura/changes in vision/mentation <Flor Leahy - Last Filed: 07/10/23 10:57> Review of Systems Review of Systems: Yes all other systems are reviewed and are negative <Flor Leahy - Last Filed: 07/10/23 10:57> Physical Exam 2 Vital Signs: Vital Signs: Last Vital Signs Temp 97.3 F 07/10/23 08:39 Pulse 82 07/10/23 08:39 Resp 18 07/10/23 08:39 BP 112/84 07/10/23 08:39 Pulse Ox 94 07/10/23 08:39 O2 Del Method Room Air 07/10/23 08:39 BMI result Body Mass Index 28.4 <Flor Leahy - Last Filed: 07/10/23 10:57> General: A&Ox3, in no acute distress CVS: RRR, peripheral pulses 2+, no LE edema Pulm: lungs clear to auscultation Abd: Non tender, non distended Psych: Appropriate affect <Flor Leahy - Last Filed: 07/10/23 10:57> Objective Data Active Medications Acetaminophen (Acetaminophen 325 Mg Tablet) 650 mg PO Q6H PRN PRN Reason: Pain, Mild (Pain Scale 1-3) Last Admin: 07/10/23 09:10 Dose: 650 mg Documented By: MIN Albuterol Sulfate (Albuterol Sulfate 90 Mcg 8 Gm Inhaler) 2 puff INHALE Q6H PRN PRN Reason: wheezing Atorvastatin Calcium (Atorvastatin Calcium 10 Mg Tablet) 10 mg PO BEDTIME YESSENIA Fluticasone/Umeclidinium/Vilanterol (Fluticasone/Umeclidinium/Vilanterol 100/62.5/25 Blst.W.Dev) 1 puff INHALE RDAILY YESSENIA Latanoprost (Latanoprost 0.005 % Ophth Evelyn 2.5 Ml Drops) 1 drop EYE-BOTH BEDTIME [facility] Melatonin (Melatonin 3 Mg Tablet) 6 mg PO BEDTIME PRN PRN Reason: Insomnia Non-Formulary Medication (Abaloparatide [Tymlos]) 80 mcg SUBCUT DAILY [facility] Non-Formulary Medication (Linaclotide [Linzess]) 145 mcg PO DAILY@0600 [facility] Omeprazole (Omeprazole 40 Mg Capsule.Dr) 40 mg PO DAILY@0630 [facility] Ondansetron HCl (Ondansetron Hcl 4 Mg/2 Ml Vial) 4 mg IVPUSH Q8H PRN PRN Reason: Nausea and Vomiting Pantoprazole Sodium (Pantoprazole Sodium 40 Mg/10 Ml Vial) 40 mg IVPUSH BID@0630,1630 [facility] Last Admin: 07/10/23 06:20 Dose: 40 mg Documented By: REBECCA Quetiapine Fumarate (Quetiapine Fumarate 300 Mg Tablet) 300 mg PO BEDTIME [facility] Sodium Chloride (0.9 % Sodium Chloride Flush 3 Ml Syringe) 3 ml IVFLUSH QSHIFT [facility] Last Admin: 07/10/23 07:07 Dose: Not Given Documented By: MARILOU Non-Admin Reason: IV Running Sotalol HCl (Sotalol Hcl 80 Mg Tablet) 80 mg PO BID [facility] Last Admin: 07/10/23 09:11 Dose: 80 mg Documented By: MIN Tizanidine HCl (Tizanidine Hcl 4 Mg Tablet) 2 mg PO BID PRN PRN Reason: muscle spasticity Trazodone HCl (Trazodone Hcl 100 Mg Tablet) 100 - 200 mg PO BEDTIME PRN PRN Reason: Insomnia <Flor Leahy - Last Filed: 07/10/23 10:57> Labs CBC & Chem 7: 07/10/23 04:59 07/10/23 04:59 <Flor Leahy - Last Filed: 07/10/23 10:57> Labs: Laboratory Results - last 24 hr 07/09/23 07/09/23 07/09/23 16:35 21:12 22:18 MCV 75.3 L MCH 22.2 L MCHC 29.5 L RDW 17.0 H Plt Count 275 MPV 9.9 Immature Gran % (Auto) 0.3 Neut % (Auto) 67.1 Lymph % (Auto) 23.5 [place] % (Auto) 7.4 Eos % (Auto) 1.3 Baso % (Auto) 0.4 Lymph # (Auto) 1.7 [place] # (Auto) 0.5 Eos # (Auto) 0.1 Baso # (Auto) 0.0 Abs Immat Gran (auto) 0.02 Absolute Neuts (auto) 4.8 Absolute Nucleated RBC 0.000 Nucleated RBC % (auto) 0.0 PT 12.7 INR 1.0 Anion Gap 11 L Estim Creat Clear Calc 63.4 Estimated GFR 58 Random Glucose 112 Calcium 9.0 D Magnesium 2.1 Iron 17 L TIBC 321 % Saturation 5 L Unsat Iron Binding 304 Total Bilirubin 0.4 AST 18 ALT 18 Alkaline Phosphatase 79 Total Protein 7.8 Albumin 4.1 Lipase 20 Stool Occult Blood POSITIVE Blood Type O Positive Antibody Screen NEGATIVE 07/10/23 04:59 MCV 75.5 L MCH 22.2 L MCHC 29.5 L RDW 17.0 H Plt Count 227 MPV 10.5 Immature Gran % (Auto) 0.3 Neut % (Auto) 54.5 Lymph % (Auto) 33.8 [place] % (Auto) 9.7 Eos % (Auto) 1.4 Baso % (Auto) 0.3 Lymph # (Auto) 2.0 [place] # (Auto) 0.6 Eos # (Auto) 0.1 Baso # (Auto) 0.0 Abs Immat Gran (auto) 0.02 Absolute Neuts (auto) 3.2 Absolute Nucleated RBC 0.000 Nucleated RBC % (auto) 0.0 PT INR Anion Gap 12 Estim Creat Clear Calc 89.3 Estimated GFR > 60 Random Glucose 90 Calcium 8.2 L D Magnesium Iron TIBC % Saturation Unsat Iron Binding Total Bilirubin AST ALT Alkaline Phosphatase Total Protein Albumin Lipase Stool Occult Blood Blood Type Antibody Screen <Flor Leahy - Last Filed: 07/10/23 10:57> Assessment and Plan (1) Acute upper GI bleed: Status: Acute <Flor Leahy - Last Filed: 07/10/23 10:57> (2) Acute upper gastrointestinal bleeding: Status: Acute <Flor Leahy - Last Filed: 07/10/23 10:57> Assessment and Plan: 68-year-old male with medical hx of atrial fibrillation on Eliquis, HFrEF, COPD not on home oxygen, HLD, HTN, mood disorder, GERD on dexlansoprazole was admitted for coffee-ground emesis and dark stools. Acute upper GI bleed: - Continue to hold Eliquis. - Continue IV Protonix. - NPO until EGD with GI Acute blood loss anemia secondary to GI bleed: - Hgb 8.6 (previous 10.5) Hct 29.2 (previous 35.6). Patient asymptomatic currently. - Iron 17, %Saturation 5 - Iron supplementation - Monitor H/H and transfuse if hgb 7 or below or patient become symptomatic Paroxysmal atrial fibrillation: - Hold Eliquis and continue cardiac monitoring Headache: - Continue acetaminophen and monitor, likely due to NPO status. COPD: - Continue home inhalers Essential hypertension: - Hold antihypertensives Congestive heart failure with reduced ejection fraction: - Hold Lasix Mood disorder: - Continue home mood stabilizers DVT prophylaxis: Mechanical Full code Need for inpatient: Acute GI bleed; need to monitor for hemodynamic instability with need for specialist consultation and possible procedure. <Flor Leahy - Last Filed: 07/10/23 10:57> Quality Stroke Does the patient have a stroke diagnosis?: No <Flor Leahy - Last Filed: 07/10/23 10:57> VTE Prior VTE?: No <Flor Leahy - Last Filed: 07/10/23 10:57> VTE Risk Level:: Medical - moderate - high <Flor Leahy - Last Filed: 07/10/23 10:57> VTE Device Contraindication: N/A - Device Ordered <Flor Leahy - Last Filed: 07/10/23 10:57> VTE Drug Contraindication: Treatment Not Indicated <Flor Leahy - Last Filed: 07/10/23 10:57>
[2023-07-10] MEDS: Butalb/Acetamin/Caff 50/325/40 TABLET 1 TAB PO ×3 (11:18→20:31)
[2023-07-10] MEDS: Fluticasone/Umeclidinium/Vilanterol 100/62.5/25 BLST.W.DEV 1 PUFF INHALE (12:01)
--- NOTE | 2023-07-10 14:55 | PC.NURSE ---
14:15 pt has bigeminy. pt denied chest pain or sob. MD notified, EKG ordered and obtained. pt is ob 2LNC 94%. SR with pvc
[2023-07-10 15:13] LABS: Erythrocyte Sedimentation Rate 16 MM/HR (0-15)
[2023-07-10] MEDS: 0.9 % Sodium Chloride Flush 3 ML SYRINGE IVFLUSH ×2 (15:22→19:35)
[2023-07-10] MEDS: traZODone HCL 100 MG TABLET PO (19:35)
[2023-07-10] MEDS: Latanoprost 0.005 % Ophth Sol 2.5 ML DROPS 1 DROP EYE-BOTH (20:42)
[2023-07-10] MEDS: QUEtiapine Fumarate 300 MG TABLET PO (21:19)
[2023-07-10] MEDS: Atorvastatin Calcium 10 MG TABLET PO (21:20)
--- NOTE | 2023-07-10 22:17 | PC.NURSE ---
EKgs done per sotalol protocol at 2115.
[2023-07-11] VITALS (10 sets, daily range): BP systolic 80–117; BP diastolic 59–85; PULSE 67–89; RESP 18–81; TEMP 36.1–36.9; O2SAT 93–98
[2023-07-11] MEDS: Omeprazole 40 MG CAPSULE.DR PO (05:58)
[2023-07-11] MEDS: Pantoprazole Sodium 40 MG/10 ML VIAL IVPUSH (05:58)
[2023-07-11] MEDS: Fluticasone/Umeclidinium/Vilanterol 100/62.5/25 BLST.W.DEV 1 PUFF INHALE (07:50)
[2023-07-11 07:56] LABS: Hemoglobin 8.4 g/dl (14.0-18.0); Mean Corpuscular Hemoglobin 22.4 pg (27.0-33.0); Mean Corpuscular Volume 74.7 fL (80.0-98.0); Mean Platelet Volume 9.7 fL (9.4-12.4); Platelet Count 190 X10*3/uL (160-400); Red Blood Count 3.75 X10*6/uL (4.60-5.80); Red Cell Distribution Width 16.8 % (11.0-16.0); White Blood Count 4.4 X10*3/uL (4.8-10.8)
[2023-07-11] MEDS: Sotalol HCL 80 MG TABLET PO (09:24)
[2023-07-11] MEDS: 0.9 % Sodium Chloride Flush 3 ML SYRINGE IVFLUSH (09:24)
--- NOTE | 2023-07-11 11:47 | HO.PM.IMPN ---
Subjective Subjective Date of Service: 07/11/23 <Flor Jamesmark - Last Filed: 07/11/23 11:53> 07/11/23 <Brian Nieves MD - Last Filed: 07/11/23 11:56> Interval History: Feeling well today. No lightheadedness, headaches, changes in vision, fevers/chills, n/v, abdominal pain, CP/palpitations. <Flor Jamesmark - Last Filed: 07/11/23 11:53> Review of Systems Review of Systems: Yes all other systems are reviewed and are negative <Flor Leahy - Last Filed: 07/11/23 11:53> Physical Exam Vital Signs: Vital Signs: Last Vital Signs Temp 98.0 F 07/11/23 11:44 Pulse 80 07/11/23 11:44 Resp 20 07/11/23 11:44 BP 107/59 L 07/11/23 11:44 Pulse Ox 98 07/11/23 11:44 O2 Del Method Room Air 07/11/23 11:44 BMI result Body Mass Index 28.4 <Flor Leahy - Last Filed: 07/11/23 11:53> General: A&Ox3, in no acute distress CVS: RRR, peripheral pulses 2+, no LE edema Pulm: lungs clear to auscultation Abd: Non tender, non distended Psych: Appropriate affect <Flor Leahy - Last Filed: 07/11/23 11:53> Objective Data Active Medications Acetaminophen (Acetaminophen 325 Mg Tablet) 650 mg PO Q6H PRN PRN Reason: Pain, Mild (Pain Scale 1-3) Last Admin: 07/10/23 09:10 Dose: 650 mg Documented By: MIN Acetaminophen/Butalbital/Caffeine (Butalb/Acetamin/Caff 50/325/40 Tablet) 1 tab PO Q4H PRN PRN Reason: Pain, Severe (Pain Scale 7-10) Last Admin: 07/10/23 20:31 Dose: 1 tab Documented By: CHARLETTE Albuterol Sulfate (Albuterol Sulfate 90 Mcg 8 Gm Inhaler) 2 puff INHALE Q6H PRN PRN Reason: wheezing Atorvastatin Calcium (Atorvastatin Calcium 10 Mg Tablet) 10 mg PO BEDTIME [facility] Last Admin: 07/10/23 21:20 Dose: 10 mg Documented By: CHARLETTE Fluticasone/Umeclidinium/Vilanterol (Fluticasone/Umeclidinium/Vilanterol 100/62.5/25 Blst.W.Dev) 1 puff INHALE RDAILY [facility] Last Admin: 07/11/23 07:50 Dose: 1 puff Documented By: CASSIDY Latanoprost (Latanoprost 0.005 % Ophth Evelyn 2.5 Ml Drops) 1 drop EYE-BOTH BEDTIME [facility] Last Admin: 07/10/23 20:42 Dose: 1 drop Documented By: CHARLETTE Melatonin (Melatonin 3 Mg Tablet) 6 mg PO BEDTIME PRN PRN Reason: Insomnia Non-Formulary Medication (Abaloparatide [Tymlos]) 80 mcg SUBCUT DAILY [facility] Non-Formulary Medication (Linaclotide [Linzess]) 145 mcg PO DAILY@0600 [facility] Omeprazole (Omeprazole 40 Mg Capsule.Dr) 40 mg PO DAILY@0630 [facility] Last Admin: 07/11/23 05:58 Dose: 40 mg Documented By: CHARLETTE Ondansetron HCl (Ondansetron Hcl 4 Mg/2 Ml Vial) 4 mg IVPUSH Q8H PRN PRN Reason: Nausea and Vomiting Pantoprazole Sodium (Pantoprazole Sodium 40 Mg/10 Ml Vial) 40 mg IVPUSH BID@0630,1630 [facility] Last Admin: 07/11/23 05:58 Dose: 40 mg Documented By: CHARLETTE Quetiapine Fumarate (Quetiapine Fumarate 300 Mg Tablet) 300 mg PO BEDTIME [facility] Last Admin: 07/10/23 21:19 Dose: 300 mg Documented By: CHARLETTE Sodium Chloride (0.9 % Sodium Chloride Flush 3 Ml Syringe) 3 ml IVFLUSH QSHIFT [facility] Last Admin: 07/11/23 09:24 Dose: 3 ml Documented By: WILLIAMS Sotalol HCl (Sotalol Hcl 80 Mg Tablet) 80 mg PO BID [facility] Last Admin: 07/11/23 09:24 Dose: 80 mg Documented By: HO.CARRAM Tizanidine HCl (Tizanidine Hcl 4 Mg Tablet) 2 mg PO BID PRN PRN Reason: muscle spasticity Trazodone HCl (Trazodone Hcl 100 Mg Tablet) 100 - 200 mg PO BEDTIME PRN PRN Reason: Insomnia Last Admin: 07/10/23 19:35 Dose: 200 mg Documented By: CHARLETTE <Flor Leahy - Last Filed: 07/11/23 11:53> Labs CBC & Chem 7: 07/11/23 07:45 07/10/23 04:59 <Flor Leahy - Last Filed: 07/11/23 11:53> Labs: Laboratory Results - last 24 hr 07/10/23 07/11/23 14:05 07:45 MCV 74.7 L MCH 22.4 L MCHC 30.0 L RDW 16.8 H Plt Count 190 MPV 9.7 Absolute Nucleated RBC 0.000 Nucleated RBC % (auto) 0.0 ESR 16 H <Flor Leahy - Last Filed: 07/11/23 11:53> Assessment and Plan (1) Acute upper GI bleed: Status: Acute <Flor Leahy - Last Filed: 07/11/23 11:53> (2) Acute upper gastrointestinal bleeding: Status: Acute <Flor Leahy - Last Filed: 07/11/23 11:53> Assessment and Plan: 68-year-old male with medical hx of atrial fibrillation on Eliquis, HFrEF, COPD not on home oxygen, HLD, HTN, mood disorder, GERD on dexlansoprazole was admitted for coffee-ground emesis and dark stools. Acute upper GI bleed: - Continue to hold Eliquis. - Continue IV Protonix. - EGD scheduled today Acute blood loss anemia secondary to GI bleed: - Hgb 8.4 (previous 8.6) Hct 28 (previous 29.2). Patient asymptomatic currently. - Monitor H/H and transfuse if hgb 7 or below or patient become symptomatic Paroxysmal atrial fibrillation: - Hold Eliquis and continue cardiac monitoring Headache -- no pain today: - Reported pain with mastication yesterday. ESR ordered for [facility]. ESR 16 (normal 1-15) - He says headache, jaw pain have completely resolved today. Denies changes in vision. - Slight ESR elevation likely due to acute blood loss anemia - will monitor patient for symptoms. COPD: - Continue home inhalers Essential hypertension: - Hold antihypertensives Congestive heart failure with reduced ejection fraction: - Hold Lasix Mood disorder: - Continue home mood stabilizers DVT prophylaxis: Mechanical due to UGIB Full code Need for inpatient: Acute GI bleed; need to monitor for hemodynamic instability with need for specialist consultation and possible procedure. <Flor Leahy - Last Filed: 07/11/23 11:53> 68-year-old male with medical hx of atrial fibrillation on Eliquis, HFrEF, COPD not on home oxygen, HLD, HTN, mood disorder, GERD on dexlansoprazole was admitted for coffee-ground emesis and dark stools. Acute upper GI bleed: - Continue to hold Eliquis. - Continue IV Protonix. - EGD scheduled today Acute blood loss anemia secondary to GI bleed: - Hgb 8.4 (previous 8.6) Hct 28 (previous 29.2). Patient asymptomatic currently. - Monitor H/H and transfuse if hgb 7 or below or patient become symptomatic Paroxysmal atrial fibrillation: - Hold Eliquis and continue cardiac monitoring Headache -- no pain today: - Reported pain with mastication yesterday. ESR ordered for [facility]CA. ESR 16 (normal 1-15) - He says headache, jaw pain have completely resolved today. Denies changes in vision. - Slight ESR elevation likely due to acute blood loss anemia - will monitor patient for symptoms. COPD: - Continue home inhalers Essential hypertension: - Hold antihypertensives Congestive heart failure with reduced ejection fraction: no exacerbation - Hold Lasix Mood disorder: - Continue home mood stabilizers DVT prophylaxis: Mechanical due to UGIB Full code Need for inpatient: Acute GI bleed; need to monitor for hemodynamic instability with need for specialist consultation and possible procedure. <Brian Nieves MD - Last Filed: 07/11/23 11:56> Quality Stroke Does the patient have a stroke diagnosis?: No <Flor Leahy - Last Filed: 07/11/23 11:53> VTE Prior VTE?: No <Flor Leahy - Last Filed: 07/11/23 11:53> VTE Risk Level:: Medical - moderate - high <Flor Leahy - Last Filed: 07/11/23 11:53> VTE Device Contraindication: N/A - Device Ordered <Flor Leahy - Last Filed: 07/11/23 11:53> VTE Drug Contraindication: Treatment Not Indicated <Flor Leahy - Last Filed: 07/11/23 11:53>
--- NOTE | 2023-07-11 13:32 | P.CONAN_ITS ---
[facility] Active Problems Active Problems: All Active Problems Acute upper gastrointestinal bleeding (Acute) Acute upper GI bleed (Acute) Scapholunate instability (Acute) Right wrist pain (Acute) Compression fracture of lumbar vertebra (Acute) Pre-op chest exam (Acute) BPH (benign prostatic hyperplasia) (Acute) Right lower lobe pneumonia (Acute) Screening PSA (prostate specific antigen) (Acute) Microscopic hematuria (Acute) Degeneration, intervertebral disc, lumbosacral (Acute) Atrial fibrillation with rapid ventricular response (Acute) Pneumonia (Acute) Compression fracture of T9 vertebra (Acute) Pulmonary nodule (Acute) Right clavicle fracture (Acute) COVID-19 (Acute) Chronic idiopathic constipation (Acute) Small bowel motility disorder (Acute) Hematemesis with nausea (Acute) Chronic heart failure (Acute) Dysphagia (Acute) Erosive esophagitis (Acute) Arthritis of both elbows (Acute) Systolic dysfunction (Acute) COPD (chronic obstructive pulmonary disease) (Acute) Smoker (Acute) Hemorrhoids (Acute) Abdominal bloating (Acute) Rectal prolapse (Acute) Glaucoma (Acute) Peptic ulcer disease (Acute) Osteoporosis (Acute) Pneumonia (Acute) Compression fracture of body of thoracic vertebra (Acute) Tubular adenoma of colon (Acute) Dyspnea (Acute) Personal history of nicotine dependence (Acute) Past Medical History Medical History Emphysema lung Ascending aortic aneurysm Atrial fibrillation Osteoporosis Pneumonia Compression fracture of body of thoracic vertebra History of alcohol abuse CHF exacerbation Compression fracture of thoracic spine, non-traumatic Nonischemic cardiomyopathy Tubular adenoma of colon Dyspnea Pulmonary nodules COPD (chronic obstructive pulmonary disease) Personal history of nicotine dependence Hyperlipidemia Constipation GERD (gastroesophageal reflux disease) Depression Hypertension Family History Family History Mother Renal failure Father History of depression Brother Colon cancer Family history of problems with anesthesia: No Surgical History Surgical History Hx of kyphoplasty History of surgery on left wrist (~03/21/10) Hx of endoscopy Hx of colonoscopy (~02/13/06) Hx of cataract surgery (~07/02/10) History of appendectomy History of gastric surgery History of Problems with Anesthesia: No Social History Social History Household Members: None Housing: Apartment Are you a primary lawn care technician to a significant other at home: No Do you presently have visiting nurse or other home services: No Alcohol intake: never Patient Tobacco Use Status: Former Tobacco user Quit Date: 2 yrs ago Tobacco use type: Cigarette Cigarette Packs Per Day: 0.5 Years Smoked: 55 e-Cigarette/Vaping Use: Former Use Patient Interested in Nicotine Replacement: No Patient Given Instructions on How to Stop Smoking: No Second Hand Smoke Exposure: No Use of substances other than those prescribed or required for medical reasons: No Currently Displaying Signs/Symptoms of Drug Intoxication Withdrawal: No Any prior treatment program specific to substance use: No Have you been hit, kicked, punched, or otherwise hurt by someone within the past year? If so, by whom?: No Do you feel safe in your current relationship?: Yes Is there a partner from a previous relationship who is making you feel unsafe now?: No Are you made to feel afraid or neglected: No Advance Directives: Yes Advance Directives on File: Yes Advance Directives Date on File: 09/02/22 Do you have thoughts of harming others: None Do you have a plan to hurt others: No Plan Recently lost weight without trying: No Eating poorly because of decreased appetite: No Nutrition Risks: No Nutritional Risk Poor oral hygiene: No service: No Current occupational status: unemployed and disabled 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 Meds Allergies Allergy/AdvReac Type Severity Reaction Status Date / Time No Known Allergies Allergy Verified 07/09/23 16:19 [No Known Allergies*] Active Medications: Current Medications Acetaminophen (Acetaminophen 325 Mg Tablet) 650 mg PO Q6H PRN PRN Reason: Pain, Mild (Pain Scale 1-3) Last Admin: 07/10/23 09:10 Dose: 650 mg Acetaminophen/Butalbital/Caffeine (Butalb/Acetamin/Caff 50/325/40 Tablet) 1 tab PO Q4H PRN PRN Reason: Pain, Severe (Pain Scale 7-10) Last Admin: 07/10/23 20:31 Dose: 1 tab Albuterol Sulfate (Albuterol Sulfate 90 Mcg 8 Gm Inhaler) 2 puff INHALE Q6H PRN PRN Reason: wheezing Atorvastatin Calcium (Atorvastatin Calcium 10 Mg Tablet) 10 mg PO BEDTIME [facility] Last Admin: 07/10/23 21:20 Dose: 10 mg Fluticasone/Umeclidinium/Vilanterol (Fluticasone/Umeclidinium/Vilanterol 100/62.5/25 Blst.W.Dev) 1 puff INHALE RDAILY [facility] Last Admin: 07/11/23 07:50 Dose: 1 puff Latanoprost (Latanoprost 0.005 % Ophth Evelyn 2.5 Ml Drops) 1 drop EYE-BOTH BEDTIME [facility] Last Admin: 07/10/23 20:42 Dose: 1 drop Melatonin (Melatonin 3 Mg Tablet) 6 mg PO BEDTIME PRN PRN Reason: Insomnia Non-Formulary Medication (Abaloparatide [Tymlos]) 80 mcg SUBCUT DAILY [facility] Non-Formulary Medication (Linaclotide [Linzess]) 145 mcg PO DAILY@0600 [facility] Omeprazole (Omeprazole 40 Mg Capsule.Dr) 40 mg PO DAILY@0630 [facility] Last Admin: 07/11/23 05:58 Dose: 40 mg Ondansetron HCl (Ondansetron Hcl 4 Mg/2 Ml Vial) 4 mg IVPUSH Q8H PRN PRN Reason: Nausea and Vomiting Pantoprazole Sodium (Pantoprazole Sodium 40 Mg/10 Ml Vial) 40 mg IVPUSH BID@0630,1630 [facility] Last Admin: 07/11/23 05:58 Dose: 40 mg Quetiapine Fumarate (Quetiapine Fumarate 300 Mg Tablet) 300 mg PO BEDTIME [facility] Last Admin: 07/10/23 21:19 Dose: 300 mg Sodium Chloride (0.9 % Sodium Chloride Flush 3 Ml Syringe) 3 ml IVFLUSH QSHIFT [facility] Last Admin: 07/11/23 09:24 Dose: 3 ml Sotalol HCl (Sotalol Hcl 80 Mg Tablet) 80 mg PO BID [facility] Last Admin: 07/11/23 09:24 Dose: 80 mg Tizanidine HCl (Tizanidine Hcl 4 Mg Tablet) 2 mg PO BID PRN PRN Reason: muscle spasticity Trazodone HCl (Trazodone Hcl 100 Mg Tablet) 100 - 200 mg PO BEDTIME PRN PRN Reason: Insomnia Last Admin: 07/10/23 19:35 Dose: 200 mg Home Medications Medication Instructions Recorded Confirmed Last Taken Type latanoprost 0.005 % eye drops 1 drp ophthalmic (eye) BEDTIME 1007/09/23 07/08/23 History quetiapine 300 mg tablet 300 mg PO BEDTIME 03/27/20 07/09/23 07/08/23 History simvastatin 20 mg tablet 20 mg PO BEDTIME 03/27/20 07/09/23 07/08/23 History furosemide 20 mg tablet (Lasix) 20 mg PO DAILY 02/12/23 07/09/23 07/09/23 History trazodone 100 mg tablet 100 - 200 mg PO BEDTIME PRN 02/27/23 07/09/23 07/08/23 History Insomnia dexlansoprazole 60 mg 60 mg PO DAILY@0630 03/04/23 07/09/23 07/09/23 History capsule,biphase delayed release (Dexilant) famotidine 40 mg tablet 40 mg PO BEDTIME PRN heartburn 07/09/23 07/09/23 Unknown History metoclopramide HCl 10 mg tablet 10 mg PO BID 07/09/23 07/09/23 07/09/23 History Exam Height,Weight and Vital Signs: Height 5 ft 10 in Weight 89.811 kg Last Vital Signs Temp 98.0 F 07/11/23 11:44 Pulse 80 07/11/23 11:44 Resp 20 07/11/23 11:44 BP 107/59 L 07/11/23 11:44 Pulse Ox 98 07/11/23 11:44 O2 Del Method Room Air 07/11/23 11:44 Pertinent Lab Results Pertinent Lab Results: Laboratory Tests 07/09/23 07/09/23 07/09/23 16:35 21:12 22:18 WBC 7.1 RBC 4.73 Hgb 10.5 L D Hct 35.6 L MCV 75.3 L MCH 22.2 L MCHC 29.5 L RDW 17.0 H Plt Count 275 MPV 9.9 Immature Gran % (Auto) 0.3 Neut % (Auto) 67.1 Lymph % (Auto) 23.5 [place] % (Auto) 7.4 Eos % (Auto) 1.3 Baso % (Auto) 0.4 Lymph # (Auto) 1.7 [place] # (Auto) 0.5 Eos # (Auto) 0.1 Baso # (Auto) 0.0 Abs Immat Gran (auto) 0.02 Absolute Neuts (auto) 4.8 Absolute Nucleated RBC 0.000 Nucleated RBC % (auto) 0.0 ESR PT 12.7 INR 1.0 Sodium 139 Potassium 4.8 Chloride 108 Carbon Dioxide 25 Anion Gap 11 L BUN 16 Creatinine 1.24 Estim Creat Clear Calc 63.4 Estimated GFR 58 Random Glucose 112 Calcium 9.0 D Magnesium 2.1 Iron 17 L TIBC 321 % Saturation 5 L Unsat Iron Binding 304 Total Bilirubin 0.4 AST 18 ALT 18 Alkaline Phosphatase 79 Total Protein 7.8 Albumin 4.1 Lipase 20 Stool Occult Blood POSITIVE Blood Type O Positive Antibody Screen NEGATIVE 07/10/23 07/10/23 07/11/23 04:59 14:05 07:45 WBC 5.9 4.4 L RBC 3.87 L 3.75 L Hgb 8.6 L 8.4 L Hct 29.2 L 28.0 L MCV 75.5 L 74.7 L MCH 22.2 L 22.4 L MCHC 29.5 L 30.0 L RDW 17.0 H 16.8 H Plt Count 227 190 MPV 10.5 9.7 Immature Gran % (Auto) 0.3 Neut % (Auto) 54.5 Lymph % (Auto) 33.8 [place] % (Auto) 9.7 Eos % (Auto) 1.4 Baso % (Auto) 0.3 Lymph # (Auto) 2.0 [place] # (Auto) 0.6 Eos # (Auto) 0.1 Baso # (Auto) 0.0 Abs Immat Gran (auto) 0.02 Absolute Neuts (auto) 3.2 Absolute Nucleated RBC 0.000 0.000 Nucleated RBC % (auto) 0.0 0.0 ESR 16 H PT INR Sodium 141 Potassium 4.6 Chloride 110 H Carbon Dioxide 24 Anion Gap 12 BUN 17 H Creatinine 0.88 Estim Creat Clear Calc 89.3 Estimated GFR > 60 Random Glucose 90 Calcium 8.2 L D Magnesium Iron TIBC % Saturation Unsat Iron Binding Total Bilirubin AST ALT Alkaline Phosphatase Total Protein Albumin Lipase Stool Occult Blood Blood Type Antibody Screen Airway Mallampati Class: II TM Dist: >3cm Neck ROM: Full Loose/Missing/Broken Teeth: Yes (edentulous), Upper and Lower Heart: RRR Lungs: CTA Assessment and Plan Assessment Anesthesia Assessment: Anesthesia Plan Discussed and Chart Reviewed Final Anesthetic Review Family History of Problems with Anesthesia: No History of Problems with Anesthesia: No NPO: Yes ASA Class: III Final Preanesthetic Review: Meds/Allgs Chart Reviewed, Consent Obtained/Reviewed and Anes Risks/Benef Reviewed Patient Risk: Intermediate Procedure Risk: Intermediate Anesthetic Plan Anesthetic Plan: MAC: Disposition: Standard PACU
--- NOTE | 2023-07-11 13:54 | MHC.SHP ---
Pre-Procedural Eval Section A Date of Service: 07/11/23 The patient is an INPATIENT: Yes Changes since office visit: Yes New Medical Problems, Yes Changes in Medication and Yes Patient answered all questions; No Cold of Flu in the past 2 weeks The History & Physical has been completed within 30 days and I have reviewed it.: Yes Section B Chief Complaint: Upper GI Bleed Allergies: Allergies Allergy/AdvReac Type Severity Reaction Status Date / Time No Known Allergies Allergy Verified 07/09/23 16:19 [No Known Allergies*] Plan Diagnosis/Plan: Unchanged I have reviewed the history and physical and performed a pertinent physical examination on my patient. No changes have occurred unless specified. Time Spent With Patient Time: Total time managing care of this patient today ____ minutes.
[2023-07-11] MEDS: Albuterol Sulfate (0.083%) 2.5 MG/3 ML VIAL.NEB INHALE (14:04)
--- NOTE | 2023-07-11 14:28 | P.CDIM_ITS ---
PROVIDER RESPONSE TEXT: To clarify, the appropriate diagnosis supported by the clinical indicators: Iron deficiency anemia: probable QUERY TEXT: PHYSICIAN'S DOCUMENTATION REQUEST Date of Query: 07/11/2023 12:36 PM EST Patient Name: Avery Ware Admit Date: 07/10/2023 Dear Brian Nieves, A review of the medical record indicates additional documentation may be needed. Please review below and update the documentation accordingly. Clinical Indicators: GI 07/10 - Iron studies suggestive of iron deficiency anemia PN: Acute blood loss anemia secondary to GI bleed. Iron at 17 - % saturation 5 - Iron supplementation Based on the above, could you clarify which of the following is the most likely type of anemia you ar e evaluating, treating, and/or monitoring? Iron deficiency anemia possible, suspected, probable etc. Iron deficiency anemia secondary to acute blood loss Other Other (explain) Clinically unable to determine (explain) Thank you, Catalina Lehman, CCS, CDIS Use of terms such as suspected, likely, concern for, or probable (associated with a specific diagnosi s that is being evaluated, monitored, or treated as if it exists) are acceptable and can be coded in the inpatient se tting, when documented at the time of discharge. Please use your independent medical judgment in providing your response. THIS QUERY IS PART OF THE PERMANENT MEDICAL RECORD
--- NOTE | 2023-07-11 15:11 | MHC.CM.PN ---
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
--- NOTE | 2023-07-11 15:14 | W.PM.OPN ---
Operative Note Operative Note Date of Service: 07/11/23 Narrative: FLEXIBLE TRANSORAL UPPER GASTROINTESTINAL ENDOSCOPY WITH BIOPSIES Pre-op diagnosis: anemia, UGI bleeding Post-op diagnosis: Erosive esophagitis, hiatal hernia, gastritis Endoscopist:? Luca Gonzales MD Anesthesia:?MAC Consent: Indications for the procedure and potential complications of bleeding, perforation, reaction to medications and missed diagnosis were discussed with the patient and informed consent was obtained. Instrument: Olympus GIF H 190 mid size upper endoscope Monitoring: Vital signs and clinical assessment, continuous EKG monitoring, Pulse oximetry, Carbon Dioxide monitoring and blood pressure monitoring were done throughout the procedure. Procedure: The patient was placed in the left lateral decubitis position and pre-procedure medications were administered and a bite block was placed. The endoscope was inserted into the mouth and advanced under direct vision to the third part of duodenum. A careful inspection was made as the upper endoscope was withdrawn including a retroflexed examination of the proximal stomach; Findings and interventions are described below. Findings: Larynx: Normal Esophagus: GE junction at 35 cms, large hiatal hernia. Erosive esophagitis with LA Grade B focal 1- 1.5 cms ulcers at GE junction without active bleeding. Stomach: Mild gastric erythema with a few chronic appearing eroisons. Biopsies were obtained. Grade 4 flap valve on retroflexed examination of the cardia. Duodenum: Normal bulb and descending duodenum Intervention: Biopsies as noted above Impression and Post Procedure Diagnosis: Endoscopy Findings: ESOPHAGUS: GE junction at 35 cms, large hiatal hernia. Erosive esophagitis with focal 1- 1.5 cms ulcers at GE junction without active bleeding. STOMACH: Erosive gastritis No blood or high risk stigmata for rebleeding seen on EGD Plan: Ok to resume Eliquis today. Patient can be discharged home on twice daily PPI and oral iron. Patient to schedule a FU appointment in the GI Clinic with Nelda Chavez NP. Pt is due for a colonoscopy which will be scheduled as an outpatient Above findings were reviewed with the patient.
--- NOTE | 2023-07-11 17:23 | P.DS_ITS ---
DS: Providers Provider Date of Service: 07/11/23 Date of admission: 07/09/23 21:32 Primary care physician: iRgoberto Madrigal MD Consults: 07/09/23 21:32 Consult to Gastroenterology Routine Consulting Provider: Cesar Blank Reason for consultation: upper gi bleed DS: Diagnosis Discharge Diagnosis (1) Acute upper gastrointestinal bleeding: Status: Acute (2) Erosive esophagitis: Status: Acute DS: Summary Hospital Course Hospital Course: admission hpi Chief Complaint: dark stool and coffee ground emesis This is a 68-year-old male with pertinent history of atrial fibrillation on Eliquis, congestive heart failure with reduced ejection fraction, COPD not on home oxygen, mixed hyperlipidemia, essential hypertension, mood disorder, gastroesophageal reflux disease who presents to the emergency department for evaluation of coffee-ground emesis. Patient states he had multiple episodes of coffee-ground emesis that started 1 day prior to presentation. On the day of presentation he also had 2 episodes of dark-colored stools. Is on Eliquis for atrial fibrillation and has history of nonbleeding duodenal ulcer in the past. Denies fever, chills or abdominal discomfort. No chest discomfort, palpitations, shortness of breath, changes in urinary habits. In the emergency department, stool occult blood positive and hemoglobin found to be low. Hospital course: Patient was admitted and treated with IV protonix and holding eliquis for 48 hours, hemoglobin decreased but stabilized at 28 to 29. He underwent EGD by Dr. Gonzales and noted to have Gastritis, esophagitis and hiatal hernia and no active bleed. He advised to restart eliquis, take Prilosec 20 bid and follow up with the GI clinic September Time Attestation Discharge coordination time: Greater than 30 minutes Quality: Safe Use of Opioids Does Pt have an Active Cancer Diagnosis on the Problem List?: No Quality: Stroke Does the patient have a stroke diagnosis?: No Physical Exam Vital Signs: Vital Signs: Last Vital Signs Temp 97 F 07/11/23 16:05 Pulse 70 07/11/23 16:05 Resp 20 07/11/23 16:05 BP 115/85 07/11/23 16:05 Pulse Ox 94 07/11/23 16:05 O2 Del Method Room Air 07/11/23 16:05 O2 Flow Rate 6 07/11/23 15:35 BMI result Body Mass Index 28.4 DS: Data Data Completed and Pending Completed studies during hospitalization [Text1]: Procedures Drainage of Right Lower Lung Lobe, Via Natural or Artificial Opening Endoscopic, Diagnostic (08/26/22) Drainage of Right Middle Lung Lobe, Via Natural or Artificial Opening Endoscopic, Diagnostic (08/26/22) Extraction of Right Lower Lung Lobe, Via Natural or Artificial Opening Endoscopic, Diagnostic (08/26/22) Extraction of Right Middle Lung Lobe, Via Natural or Artificial Opening Endoscopic, Diagnostic (08/26/22) Pending studies at discharge: Pending at discharge 07/11/23 15:25 Surgical [PTH] Routine Labs on day of discharge: Laboratory Results - last 24 hr 07/11/23 07:45 WBC 4.4 L RBC 3.75 L Hgb 8.4 L Hct 28.0 L MCV 74.7 L MCH 22.4 L MCHC 30.0 L RDW 16.8 H Plt Count 190 MPV 9.7 Absolute Nucleated RBC 0.000 Nucleated RBC % (auto) 0.0 Discharge Plan Discharge Anticipated Discharge Date/Time: 07/11/23 17:10 Patient Disposition: Home, Self-Care Discharge Diagnosis: upper GI Bleeding, gastritis, esophagitis, acute blood loss anemia Referrals: Rigoberto Madrigal MD [Primary Care Provider] - 1 Week Discharge Medications: New omeprazole magnesium [Prilosec OTC] 20 mg tablet,delayed release (DR/EC) 20 mg PO BID Qty: 60 0RF Continued albuterol sulfate [Ventolin HFA] 90 mcg/actuation HFA aerosol inhaler 2 puff INHALATION Q6H PRN (Reason: wheezing) 30 Days Qty: 8.5 11RF Tymlos 80 mcg (3,120 mcg/1.56 mL) pen injector 80 mcg subcut DAILY Qty: 1.56 12RF Rx Instructions: inject into abdomen; do not inject within 2 inches of belly button/navel; rotate sites Eliquis 5 mg tablet 5 mg PO BID Qty: 60 0RF sotalol 80 mg Tablet 80 mg PO BID Qty: 80 0RF trazodone 100 mg tablet 100 - 200 mg PO BEDTIME PRN (Reason: Insomnia) dexlansoprazole [Dexilant] 60 mg capsule,biphase delayed releas 60 mg PO DAILY@0630 famotidine 40 mg tablet 40 mg PO BEDTIME PRN (Reason: heartburn) metoclopramide HCl 10 mg tablet 10 mg PO BID quetiapine 300 mg tablet 300 mg PO BEDTIME simvastatin 20 mg tablet 20 mg PO BEDTIME latanoprost 0.005 % drops 1 drp ophthalmic (eye) BEDTIME furosemide [Lasix] 20 mg tablet 20 mg PO DAILY Linzess 145 mcg capsule 145 mcg PO DAILY@0600 Qty: 30 6RF Trelegy Ellipta 100-62.5-25 mcg blister with device 1 inh inhalation DAILY 30 Days Qty: 60 11RF tizanidine 2 mg tablet 2 mg PO BID PRN (Reason: muscle spasticity) Qty: 60 0RF Discharge Orders: Discharge Order (Routine); Ordered 07/11/23 Ordered By: Brian Nieves Diet: Advance to usual diet Activity on Discharge: As tolerated Stand Alone Forms: Patient Portal Discharge page Care Plan Goals: resolution of anemia and gastritis Health Concerns: hiatal hernia esophagitis and gastritis anemia Plan of Treatment: take Priolosec 20 mg twice daily avoid taking motrin or other over the counter pain medicaions follow up with Nelda Chavez in the GI clinic Plan discussed with patient via hunting and fishing guide and over the phone with jn Alvarez Assessment: see above
== END 2023-07-11 17:59 | disposition home or self-care (01) | DRG 381 ==
LOC: HO.ED 22:48 → HO.EDOVER 23:00 → HO.IMC 07-10 07:23
PROVIDERS: Internal Medicine Gastroenterology; Physician Assistant Medical; Admitting Provider Student in an Organized Health Care Education/Training Program; Emergency Provider Internal Medicine; PCP Internal Medicine; Visit Provider Internal Medicine
PROC: 0DJ08ZZ Inspection of Upper Intestinal Tract, Via Natural or Artificial Opening Endoscopic (ICD-10-PCS; CPT 43235; principal; 2023-07-11 14:30)
DX: K22.11 Ulcer of esophagus with bleeding (principal); D62 Acute posthemorrhagic anemia; I50.22 Chronic systolic (congestive) heart failure; I42.8 Other cardiomyopathies; F10.11 Alcohol abuse, in remission; K29.71 Gastritis, unspecified, with bleeding; K44.9 Diaphragmatic hernia without obstruction or gangrene; I11.0 Hypertensive heart disease with heart failure; I48.0 Paroxysmal atrial fibrillation; F39 Unspecified mood [affective] disorder; J44.9 Chronic obstructive pulmonary disease, unspecified; Z87.891 Personal history of nicotine dependence; Z79.01 Long term (current) use of anticoagulants; Z79.51 Long term (current) use of inhaled steroids; Z79.899 Other long term (current) drug therapy
CPT/HCPCS: 36415; 80048; 80053; 82272; 83540; 83690; 83735; 85025; 85027; 85610; 85652; 86850; 86900; 86901; 88305; 88342; 93005; 94640; 99285; C9113; J2270; J2405; J2704

== ENCOUNTER → 2023-07-09 20:58 | Outpatient (BNV) | payer MEDICARE, MEDICAID, SELFPAY | PROVIDERS: Emergency Provider Internal Medicine; PCP Internal Medicine; Visit Provider Student in an Organized Health Care Education/Training Program | DX: K92.2 Gastrointestinal hemorrhage, unspecified (principal); K22.10 Ulcer of esophagus without bleeding | CPT/HCPCS: 99222; 99232; 99239 ==

== ENCOUNTER 2023-07-09 21:32 | Outpatient (BNV) | payer MEDICARE, MEDICAID, SELFPAY | END 2023-07-10 21:03 | PROVIDERS: Admitting Provider Student in an Organized Health Care Education/Training Program; Emergency Provider Internal Medicine; PCP Internal Medicine; Visit Provider Internal Medicine | DX: R94.31 Abnormal electrocardiogram [ECG] [EKG] (principal) | CPT/HCPCS: 93010 ==

== ENCOUNTER → 2023-07-09 21:32 | Outpatient (BNV) | payer MEDICARE, MEDICAID, SELFPAY | PROVIDERS: Admitting Provider Student in an Organized Health Care Education/Training Program; Emergency Provider Internal Medicine; PCP Internal Medicine; Visit Provider Internal Medicine Gastroenterology | DX: K92.2 Gastrointestinal hemorrhage, unspecified (principal); K22.10 Ulcer of esophagus without bleeding | CPT/HCPCS: 99499 ==

== ENCOUNTER → 2023-07-09 21:32 | Outpatient (BNV) | payer MEDICARE, MEDICAID, SELFPAY | PROVIDERS: Admitting Provider Student in an Organized Health Care Education/Training Program; Emergency Provider Internal Medicine; PCP Internal Medicine; Visit Provider Internal Medicine Gastroenterology | DX: D64.9 Anemia, unspecified (principal); K20.90 Esophagitis, unspecified without bleeding; K29.70 Gastritis, unspecified, without bleeding | CPT/HCPCS: 43239 ==

== ENCOUNTER 2023-07-21 15:19 | Outpatient (REF) | payer MEDICARE, MEDICAID, SELFPAY ==
[2023-07-21 16:01] LABS: MANUAL DIFF FLAG NO
[2023-07-21 16:09] LABS: Basophils Percent Auto 0.5 % (0-2); Eosinophils Percent Auto 0.5 % (0-4); Hematocrit 33.2 % (42.0-52.0); Hemoglobin 9.7 g/dl (14.0-18.0); Imm Gran Abs Auto 0.02 X10*3/uL (0.00-0.03); Imm Gran Pct Auto 0.3 % (0.0-0.4); Lymphocytes Absolute Auto 1.8 X10*3/uL (1.2-4.9); Lymphocytes Percent Auto 23.3 % (20-40); Mean Corpuscular HGB Conc 29.2 g/dl (31.0-36.0); Mean Corpuscular Hemoglobin 21.5 pg (27.0-33.0); Mean Corpuscular Volume 73.6 fL (80.0-98.0); Mean Platelet Volume 10.3 fL (9.4-12.4); Monocytes Absolute Auto 0.7 X10*3/uL (0.1-1.2); Monocytes Percent Auto 8.8 % (2-11); Neutrophils Percent Auto 66.6 % (45-73); Platelet Count 287 X10*3/uL (160-400); Red Blood Count 4.51 X10*6/uL (4.60-5.80); Red Cell Distribution Width 17.3 % (11.0-16.0); White Blood Count 7.5 X10*3/uL (4.8-10.8)
[2023-07-21 16:28] LABS: Iron 18 mcg/dL (45-160); Percent Iron Saturation 5 % (15-50); Total Iron Binding Capacity 345 mcg/dL (228-428); Unsaturated Iron Binding 327 ug/dL
[2023-07-21 16:40] LABS: Ferritin 7 ng/mL (20-250)
== END 2023-07-21 15:20 | disposition home or self-care (01) ==
LOC: HO.HHCL 15:19
PROVIDERS: Visit Provider Nurse Practitioner Primary Care
DX: D50.9 Iron deficiency anemia, unspecified (principal)
CPT/HCPCS: 36415; 82728; 83540; 85025

== ENCOUNTER 2023-07-29 11:33 | Outpatient (AMB) | payer MEDICARE, MEDICAID, SELFPAY ==
[2023-07-29 11:35] VITALS: BP 101/77; PULSE 97; BMI 28.4
--- NOTE | 2023-07-29 11:35 | MHC.OFFVIS ---
Intake Vital Signs 07/29/23 11:35 Height 5 ft 10 in Weight 197 lb 15.602 oz BMI 28.4 BP 101/77 Blood Pressure Location Lt brachial Position Sitting Pulse 97 Intake Visit Reasons: 6 month follow up r/s from 07/10/2023 Intake Note: Patient returns to in office visit today in 6 months follow up and ER follow up. CC: Patient presented to to the emergency department on 07/09/23 for evaluation of coffee-ground emesis.? Patient stated he had multiple episodes of coffee-ground emesis that started 1 day prior to presentation.?He underwent EGD by Dr. Gonzalse on 07/11/23? and noted to have Gastritis, esophagitis, and hiatal hernia, and no active bleed. Patient reports he had diarrhea yesterday and the stools where black. Patient c/o frequent headaches. 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 . He fell and developed several compression fx of the thoracic spine. He was in intermediate facility and had to cancel his colonoscopy that was scheduled for 11/2022. He stopped smoking and drinking ETOH and is taking his medication more regularly since his sister stared taking care of him. GERD is better. HE continues on Dexilant, reglan, and LInzess 145 micro g. He has received a letter that he needs a PA for the LInzess and we will work on this. He is newly on Eliquis for Afib with rapid rapid ventricular response and he has cardiomegaly. His sister said he drank a LOT of beer, never had transaminitis?? Wants to put of colonoscopy r/t back pain and mobility, offered Cologuard but he does not want, will re consider in 6 mos. Over due as should have had repeat in 2021 ROV 6 mos (2) Small bowel motility disorder: Code(s): K59.9 - Functional intestinal disorder, unspecified (3) Chronic idiopathic constipation: Code(s): K59.04 - Chronic idiopathic constipation (4) Rectal prolapse: Code(s): K62.3 - Rectal prolapse Medications: New dexlansoprazole 60 mg PO DAILY@06 30 30 caps 6RF famotidine 40 mg PO BEDTIME PRN 30 tabs 6RF he artburn linaclotide (Linze ss) 145 mcg PO DAILY@ 0600 30 caps 6RF metoclopramide HCl 10 mg PO QIDACHS 120 tabs 6RF Discontinued dexlansoprazole 60 mg PO DAILY 90 caps 1RF K21.9 - Gastro-eso phageal reflux dis ease without esoph agitis COLONOSCOPY Not yet scheduled he had cataract surgery on 08/04 BIOPSY TODAY'S VISIT [place] # family member translates per patient request. Patient was admitted 07/09/23 after presenting with coffee emesis and upper abdominal discomfort and subsequent EGD showed erosive esophagitis and erosive gastritis. He was told to continue his Dexilant famotidine was given omeprazole 20 mg twice a day.? Why not Carafate? Perhaps related to his complex medication schedule. He did not have his colonoscopy which is expected to be rescheduled as an outpatient procedure. They saw his PCP and they told him to stop the Dexilant and just take the omeprazole 20mg bid and the famotidine. I will add a qnoon dose of liquid carafate to aid healing. He has not vomiting since he came home from the hospital. He actually had cataract surgery on 08/04, not the colonoscopy, so I will get this ordered and will proceed. They are in agreement. He still has the prep from when he was rescheduled after being in rehab. He is still having some dark stools. We also improve their understanding about how to take the reglan before meals. His sister is now helping him with his medicines but admits he was not very compliant with taking them consistently or accurately prior to this. He is not smoking or drinking ETOH now. He does have the feeling [facility] He is on iron and vit c therapy, which I advise them to take with food despite a slight delay in absorption to prevent further esophageal or peptic irritation that can occur commonly with iron therapy. He had a supplement for pernicious anemia aimed at B 12 supplementation, he can continue this as it will not hurt but I explained to them that this is not the kind of anemia he is having which is from blood loss. I say this only so that they do not rely on this supplement exclusively he really needs to take his iron pills. ROV 4 weeks. [facility] Medical History Emphysema lung Ascending aortic aneurysm Atrial fibrillation Osteoporosis Pneumonia Compression fracture of body of thoracic vertebra History of alcohol abuse CHF exacerbation Compression fracture of thoracic spine, non-traumatic Nonischemic cardiomyopathy Tubular adenoma of colon Dyspnea Pulmonary nodules COPD (chronic obstructive pulmonary disease) Personal history of nicotine dependence Hyperlipidemia Constipation GERD (gastroesophageal reflux disease) Depression Hypertension Surgical History Hx of kyphoplasty History of surgery on left wrist (~03/21/10) Hx of endoscopy Hx of colonoscopy (~02/13/06) Hx of cataract surgery (~07/02/10) History of appendectomy History of gastric surgery Family History Mother Renal failure Father History of depression Brother Colon cancer Social History Household Members: None Housing: Apartment Are you a primary critical care technician to a significant other at home: No Do you presently have visiting nurse or other home services: No Alcohol intake: never Patient Tobacco Use Status: Former Tobacco user Quit Date: 2 yrs ago Tobacco use type: Cigarette Cigarette Packs Per Day: 0.5 Years Smoked: 55 e-Cigarette/Vaping Use: Former Use Second Hand Smoke Exposure: No Advance Directives Date on File: 09/02/22 service: No Current occupational status: unemployed and disabled 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 Review of Systems Const Denies fatigue, Denies fever(s), Denies night sweats, Denies poor appetite and Denies weight loss ENT Reports Normal hearing present, Denies dental pain, Reports dysphagia, Denies hearing loss, Denies mouth pain, Denies odynophagia, Denies throat swelling, Denies tongue swelling and Reports other (Dentition adequate) Card Reports no additional complaints Resp Reports no additional complaints GI Details: Denies abdominal pain, Denies melena, Denies bloating, Denies hematochezia, Denies constipation, Denies GI cramping, Reports dysphagia, Denies excessive flatus, Reports early satiety, Reports heartburn, Denies diarrhea, Reports nausea, Denies odynophagia, Reports vomiting and Denies hematemesis Skin/Breast Denies pruritus, Denies lesions, Denies rash and Denies jaundice Neuro Reports Normal hearing present and Denies Abnormal speech present Endo Denies fatigue Aller/Immun Denies throat swelling and Denies tongue swelling Physical Exam Vital Signs: Last Vital Signs Pulse 97 07/29/23 11:35 BP 101/77 07/29/23 11:35 BMI result Body Mass Index 28.4 Const General: cooperative, no acute distress, well developed and well groomed Nutritional Appearance: average body habitus and well nourished Orientation/consciousness: oriented to person, oriented to place and oriented to time Limitations: language barrier HEENT Head: Yes normocephalic and Yes atraumatic Eyes General: appearance normal, both eyes and all related structures Pupils: Equal, round and reactive pupils present Neck Neck: Yes normal visual inspection and Yes no lymphadenopathy Thyroid: Thyroid normal Resp Effort & Inspection: normal respiratory effort and able to speak in complete sentences Auscultation: clear to auscultation bilaterally Cardio Rate: regular rate Rhythm: regular rhythm Heart sounds: Normal, physiologic split S2 sound present Peripheral pulses: radial pulses present and posterior tibial pulses present GI Inspection: No distended and No Abdominal panniculus present Palpation (GI): Soft to palpation, nontender, no guarding, not rigid and No hepatosplenomegaly present Percussion: Yes normal to percussion Auscultation: normal bowel sounds Rectal Exam - Male: Yes deferred Skin General skin exam: no rashes or lesions noted, turgor normal, skin not dry, no jaundice, No spider nevi and no striae Rashes: no rashes Nails: normal Neuro General: oriented to person, oriented to place and oriented to time Cranial nerves: Yes Equal, round and reactive pupils present and Yes Normal hearing present Speech: No Abnormal speech present Extrem General: Yes normal to inspection, No clubbing, No cyanosis and No edema Psych Appearance: grossly normal and well kempt Mental Status: mental status grossly normal Speech and movement: Normal speech and movement present Affect: normal affect Attitude: cooperative Thought process: Circumstantial thought process present and not confabulating Thought content: Normal thought content present Insight: Limited insight present (Psych) Judgement: Limited judgement present (Psych) Results Reviewed Results Reviewed: Laboratory Tests 07/09/23 07/10/23 07/21/23 16:35 04:59 15:21 WBC 7.5 Hgb 9.7 L Hct 33.2 L MCV 73.6 L MCH 21.5 L Plt Count 287 D Estimated GFR > 60 Ferritin Total Bilirubin 0.4 AST 18 ALT 18 Alkaline Phosphatase 79 07/21/23 15:21 WBC Hgb Hct MCV MCH Plt Count Estimated GFR Ferritin 7 L Total Bilirubin AST ALT Alkaline Phosphatase EGD 07/11/23 Findings: Larynx: Normal Esophagus: GE junction at 35 cms, large hiatal hernia. Erosive esophagitis with LA Grade B focal 1- 1.5 cms ulcers at GE junction without active bleeding. Stomach: Mild gastric erythema with a few chronic appearing eroisons. Biopsies were obtained. Grade 4 flap valve on retroflexed examination of the cardia. Duodenum: Normal bulb and descending duodenum Intervention: Biopsies as noted above Impression and Post Procedure Diagnosis: Endoscopy Findings: ESOPHAGUS: GE junction at 35 cms, large hiatal hernia. Erosive esophagitis with focal 1- 1.5 cms ulcers at GE junction without active bleeding. STOMACH: Erosive gastritis No blood or high risk stigmata for rebleeding seen on EGD Plan: Ok to resume Eliquis today. Patient can be discharged home on twice daily PPI and oral iron. Patient to schedule a FU appointment in the GI Clinic with Nelda Chavez NP. Pt is due for a colonoscopy which will be scheduled as an outpatient Received: 07/11/23 Diagnosis Stomach, antrum, biopsy: Antral-type mucosa with mild chronic inactive inflammation; no Helicobacter organisms seen Assessment & Plan Assessment & Plan (1) Chronic idiopathic constipation: Code(s): K59.04 - Chronic idiopathic constipation (2) Small bowel motility disorder: Code(s): K59.9 - Functional intestinal disorder, unspecified (3) Erosive esophagitis: Code(s): K22.10 - Ulcer of esophagus without bleeding (4) GI bleed: Code(s): K92.2 - Gastrointestinal hemorrhage, unspecified Plan [place] # family member translates per patient request. Patient was admitted 07/09/23 after presenting with coffee emesis and upper abdominal discomfort and subsequent EGD showed erosive esophagitis and erosive gastritis. He was told to continue his Dexilant famotidine was given omeprazole 20 mg twice a day.? Why not Carafate? Perhaps related to his complex medication schedule. He did not have his colonoscopy which is expected to be rescheduled as an outpatient procedure. They saw his PCP and they told him to stop the Dexilant and just take the omeprazole 20mg bid and the famotidine. I will add a qnoon dose of liquid carafate to aid healing. He has not vomiting since he came home from the hospital. He actually had cataract surgery on 08/04, not the colonoscopy, so I will get this ordered and will proceed. They are in agreement. He still has the prep from when he was rescheduled after being in rehab. He is still having some dark stools. We also improve their understanding about how to take the reglan before meals. His sister is now helping him with his medicines but admits he was not very compliant with taking them consistently or accurately prior to this. He is not smoking or drinking ETOH now. [facility] He is on iron and vit c therapy, which I advise them to take with food despite a slight delay in absorption to prevent further esophageal or peptic irritation that can occur commonly with iron therapy. He had a supplement for pernicious anemia aimed at B 12 supplementation, he can continue this as it will not hurt but I explained to them that this is not the kind of anemia he is having which is from blood loss. I say this only so that they do not rely on this supplement exclusively he really needs to take his iron pills. ROV 4 weeks. COLONOSCOPY Not yet scheduled he had cataract surgery on 08/04 BIOPSY Orders: Orders Colonoscopy - GI Use Only Today K92.2 - Gastrointestinal hemorrhage, unspecified Medications: New sucralfate (Carafate) 20 mL PO QNOON 1,000 mL 0RF K22.10 - Ulcer of esophagus without bleeding Changed From metoclopramide HCl 10 mg PO BID K22.10 - Ulcer of esophagus without bleeding, K59.9 - Functional intestinal disorder, unspecified To metoclopramide HCl 10 mg PO .bidac 60 tabs 6RF K22.10 - Ulcer of esophagus without bleeding, K59.9 - Functional intestinal disorder, unspecified Quality Reporting (2019) Adult ([facility] 138/08/14/68) Smoking risk assessment performed?: Yes Patient Tobacco Use Status: Former Tobacco user Coding Level of Care Code Est Pt Level 4 (02212) Diagnoses Chronic idiopathic constipation K59.04 Small bowel motility disorder K59.9 Erosive esophagitis K22.10 GI bleed K92.2
== END 2023-07-29 12:30 | disposition home or self-care (01) ==
PROVIDERS: PCP Internal Medicine; Visit Provider Nurse Practitioner
DX: K59.04 Chronic idiopathic constipation (principal); K59.9 Functional intestinal disorder, unspecified; K22.10 Ulcer of esophagus without bleeding; K92.2 Gastrointestinal hemorrhage, unspecified
CPT/HCPCS: 99214

== ENCOUNTER → 2023-07-29 11:33 | Outpatient (BNVA) | payer MEDICARE, MEDICAID, SELFPAY | PROVIDERS: PCP Internal Medicine; Visit Provider Nurse Practitioner | DX: K59.04 Chronic idiopathic constipation (principal); K59.9 Functional intestinal disorder, unspecified; K22.10 Ulcer of esophagus without bleeding; K92.2 Gastrointestinal hemorrhage, unspecified | CPT/HCPCS: 99212 ==

== ENCOUNTER 2023-08-04 05:49 | Day surgery (SDC) | payer MEDICARE, MEDICAID, SELFPAY ==
[2023-07-31 12:11] VITALS: BMI 28.0
--- NOTE | 2023-08-01 08:34 | HO.ANESPROP2 ---
Documented by User: Nai Rush NP 08/01/23 08:37 HPI - Anesthesia Eval Consult details Narrative: 68yo M for Left Cataract Extraction IOL Insertion PCP cleared No previous cataract on record Eliquis for afib [facility] [place] 06/2023 with GIB. s/p endo PMFSH Active Problems Active Problems: All Active Problems (Updated 07/31/23 @ 12:15 by Betsy Brooks RN) GI bleed (Acute) Scapholunate instability (Acute) Right wrist pain (Acute) Pre-op chest exam (Acute) BPH (benign prostatic hyperplasia) (Acute) Compression fracture of lumbar vertebra (Acute) Right lower lobe pneumonia (Acute) Screening PSA (prostate specific antigen) (Acute) Microscopic hematuria (Acute) Degeneration, intervertebral disc, lumbosacral (Acute) Atrial fibrillation with rapid ventricular response (Acute) Pneumonia (Acute) Compression fracture of T9 vertebra (Acute) Pulmonary nodule (Acute) Right clavicle fracture (Acute) COVID-19 (Acute) Chronic idiopathic constipation (Acute) Small bowel motility disorder (Acute) Hematemesis with nausea (Acute) Chronic heart failure (Acute) Dysphagia (Acute) Erosive esophagitis (Acute) Arthritis of both elbows (Acute) Systolic dysfunction (Acute) COPD (chronic obstructive pulmonary disease) (Acute) Smoker (Acute) Hemorrhoids (Acute) Abdominal bloating (Acute) Rectal prolapse (Acute) Glaucoma (Acute) Peptic ulcer disease (Acute) Osteoporosis (Acute) Pneumonia (Acute) Compression fracture of body of thoracic vertebra (Acute) Tubular adenoma of colon (Acute) Dyspnea (Acute) Personal history of nicotine dependence (Acute) Past Medical History Medical History Compression fracture of T7 vertebra Cervical spondylosis Bilateral tinnitus Ascending aorta dilatation Opacity of lung on imaging study Tubular adenoma of colon Generalized anxiety disorder Edentulous Cardiomyopathy Bipolar 1 disorder Emphysema lung Ascending aortic aneurysm Atrial fibrillation Osteoporosis Pneumonia Compression fracture of body of thoracic vertebra History of alcohol abuse CHF exacerbation Compression fracture of thoracic spine, non-traumatic Nonischemic cardiomyopathy Tubular adenoma of colon Dyspnea Pulmonary nodules COPD (chronic obstructive pulmonary disease) Personal history of nicotine dependence Hyperlipidemia Constipation GERD (gastroesophageal reflux disease) Depression Hypertension Family History Family History Mother Renal failure Father History of depression Brother Colon cancer Family history of problems with anesthesia: No Surgical History Surgical History Hx of kyphoplasty History of surgery on left wrist (~03/21/10) Hx of endoscopy Hx of colonoscopy (~02/13/06) Hx of cataract surgery (~07/02/10) History of appendectomy History of gastric surgery History of Problems with Anesthesia: No Social History Social History Household Members: None Housing: Apartment Are you a primary care connector to a significant other at home: No Do you presently have visiting nurse or other home services: No Alcohol intake: never Patient Tobacco Use Status: Former Tobacco user Quit Date: 2 yrs ago Tobacco use type: Cigarette Cigarette Packs Per Day: 0.5 Years Smoked: 55 e-Cigarette/Vaping Use: Former Use Second Hand Smoke Exposure: No Advance Directives: No Advance Directives Information Provided: Yes Advance Directives on File: Yes Advance Directives Date on File: 09/02/22 service: No Current occupational status: unemployed and disabled 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 Meds Allergies Allergy/AdvReac Type Severity Reaction Status Date / Time No Known Allergies Allergy Verified 08/04/23 06:39 [No Known Allergies*] Home Medications Medication Instructions Recorded Confirmed Last Taken Type latanoprost 0.005 % eye drops 1 drp ophthalmic (eye) BEDTIME 03/27/20 07/31/23 07/08/23 History famotidine 40 mg tablet 40 mg PO BEDTIME PRN heartburn 07/09/23 07/31/23 Unknown History albuterol sulfate 90 mcg/actuation 2 puff inhalation Q4-6H PRN 07/31/23 07/31/23 Unknown History aerosol inhaler (Ventolin HFA) wheezing dexlansoprazole 60 mg 60 mg PO DAILY 07/31/23 07/31/23 Unknown History capsule,biphase delayed release lidocaine 5 % topical patch 1 patch topical DAILY 07/31/23 07/31/23 Unknown History metoclopramide HCl 10 mg tablet 10 mg PO QIDACHS 07/31/23 07/31/23 Unknown History naloxone 4 mg/actuation nasal spray 1 spray intranasal DIRECTED 07/31/23 07/31/23 Unknown History psyllium husk 3 gram/3 gram oral 5.12 g PO DAILY 07/31/23 07/31/23 Unknown History powder quetiapine 300 mg tablet 300 mg PO BEDTIME 07/31/23 07/31/23 Unknown History simvastatin 20 mg tablet 20 mg PO QPM 07/31/23 07/31/23 Unknown History Exam Height,Weight and Vital Signs: Height 5 ft 11 in Weight 91.172 kg Assessment and Plan Assessment Anesthesia Assessment: Chart Reviewed Final Anesthetic Review Family History of Problems with Anesthesia: No History of Problems with Anesthesia: No Documented by User: Nayeli Billings MD 08/04/23 07:42 [facility] Past Medical History Medical History Compression fracture of T7 vertebra Cervical spondylosis Bilateral tinnitus Ascending aorta dilatation Opacity of lung on imaging study Tubular adenoma of colon Generalized anxiety disorder Edentulous Cardiomyopathy Bipolar 1 disorder Emphysema lung Ascending aortic aneurysm Atrial fibrillation Osteoporosis Pneumonia Compression fracture of body of thoracic vertebra History of alcohol abuse CHF exacerbation Compression fracture of thoracic spine, non-traumatic Nonischemic cardiomyopathy Tubular adenoma of colon Dyspnea Pulmonary nodules COPD (chronic obstructive pulmonary disease) Personal history of nicotine dependence Hyperlipidemia Constipation GERD (gastroesophageal reflux disease) Depression Hypertension Family History Family History Mother Renal failure Father History of depression Brother Colon cancer Surgical History Surgical History Hx of kyphoplasty History of surgery on left wrist (~03/21/10) Hx of endoscopy Hx of colonoscopy (~02/13/06) Hx of cataract surgery (~07/02/10) History of appendectomy History of gastric surgery Social History Social History Household Members: None Housing: Apartment Are you a primary care connector to a significant other at home: No Do you presently have visiting nurse or other home services: No Alcohol intake: never Patient Tobacco Use Status: Former Tobacco user Quit Date: 2 yrs ago Tobacco use type: Cigarette Cigarette Packs Per Day: 0.5 Years Smoked: 55 e-Cigarette/Vaping Use: Former Use Second Hand Smoke Exposure: No Advance Directives: No Advance Directives Information Provided: Yes Advance Directives on File: Yes Advance Directives Date on File: 09/02/22 service: No Current occupational status: unemployed and disabled 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 Meds Allergies Allergy/AdvReac Type Severity Reaction Status Date / Time No Known Allergies Allergy Verified 08/04/23 06:39 [No Known Allergies*] Home Medications Medication Instructions Recorded Confirmed Last Taken Type latanoprost 0.005 % eye drops 1 drp ophthalmic (eye) BEDTIME 03/27/20 07/31/23 07/08/23 History famotidine 40 mg tablet 40 mg PO BEDTIME PRN heartburn 07/09/23 07/31/23 Unknown History albuterol sulfate 90 mcg/actuation 2 puff inhalation Q4-6H PRN 07/31/23 07/31/23 Unknown History aerosol inhaler (Ventolin HFA) wheezing dexlansoprazole 60 mg 60 mg PO DAILY 07/31/23 07/31/23 Unknown History capsule,biphase delayed release lidocaine 5 % topical patch 1 patch topical DAILY 07/31/23 07/31/23 Unknown History metoclopramide HCl 10 mg tablet 10 mg PO QIDACHS 07/31/23 07/31/23 Unknown History naloxone 4 mg/actuation nasal spray 1 spray intranasal DIRECTED 07/31/23 07/31/23 Unknown History psyllium husk 3 gram/3 gram oral 5.12 g PO DAILY 07/31/23 07/31/23 Unknown History powder quetiapine 300 mg tablet 300 mg PO BEDTIME 07/31/23 07/31/23 Unknown History simvastatin 20 mg tablet 20 mg PO QPM 07/31/23 07/31/23 Unknown History Exam Airway Mallampati Class: III TM Dist: >3cm Neck ROM: Full Denture: Upper Partial: Lower Loose/Missing/Broken Teeth: Yes, Upper and Lower Heart: RRR Lungs: CTA Assessment and Plan Assessment Anesthesia Assessment: Anesthesia Plan Discussed Final Anesthetic Review NPO: Yes ASA Class: III Final Preanesthetic Review: Meds/Allgs Chart Reviewed, Consent Obtained/Reviewed and Anes Risks/Benef Reviewed Patient Risk: Intermediate Procedure Risk: Low Anesthetic Plan Anesthetic Plan: MAC: Disposition: Standard PACU
[2023-08-04 06:09] VITALS: BP 110/75; PULSE 88; RESP 15; TEMP 36.2; O2SAT 98
[2023-08-04] MEDS: Tetracaine HCl/PF 0.5% Oph Sol 4 ML DROPS 1 DROP EYE-LEFT (06:16)
[2023-08-04] MEDS: Cyclopentolate 1 % Ophth Sol 2 ML DRPBTL 1 DROP EYE-LEFT ×3 (06:20→06:34)
[2023-08-04] MEDS: Tropicamide 1 % Ophth Sol 3 ML BTL 1 DROP EYE-LEFT ×3 (06:21→06:35)
[2023-08-04] MEDS: Ketorolac Tromethamine 0.5% Op 5 ML DROPS 1 DROP EYE-LEFT ×3 (06:23→06:36)
[2023-08-04] MEDS: Phenylephrine HCL 2.5% Oph SoL 2 ML BOTTLE 1 DROP EYE-LEFT ×3 (06:27→06:37)
[2023-08-04] MEDS: Lactated Ringers 500 ML 50 ML IV (06:29)
--- NOTE | 2023-08-04 07:26 | MHC.SHP ---
Pre-Procedural Eval Section A - 24 Hr Update-Section A only Date of Service: 08/04/23 The patient is an INPATIENT: No Changes since office visit: Yes Cold of Flu in the past 2 weeks, Yes New Medical Problems, Yes Changes in Medication and Yes Patient answered all questions Section B - Complete if H&P > 30 days Chief Complaint: Age-related nuclear cataract, left eye Allergies: Allergies Allergy/AdvReac Type Severity Reaction Status Date / Time No Known Allergies Allergy Verified 08/04/23 06:39 [No Known Allergies*] Plan I have reviewed the history and physical and performed a pertinent physical examination on my patient. No changes have occurred unless specified. Time Spent With Patient Time: Total time managing care of this patient today ____ minutes.
--- NOTE | 2023-08-04 07:26 | MHC.SHP ---
Pre-Procedural Eval Section A - 24 Hr Update-Section A only Date of Service: 08/04/23 The patient is an INPATIENT: No Changes since office visit: No Cold of Flu in the past 2 weeks, No New Medical Problems, No Changes in Medication and No Patient answered all questions The patient has been examined within 24 hours of the surgical procedure. The History & Physical has been completed within 30 days and I have reviewed it.: Yes Section B - Complete if H&P > 30 days Chief Complaint: Age-related nuclear cataract, left eye Allergies: Allergies Allergy/AdvReac Type Severity Reaction Status Date / Time No Known Allergies Allergy Verified 08/04/23 06:39 [No Known Allergies*] Plan Diagnosis/Plan: Unchanged I have reviewed the history and physical and performed a pertinent physical examination on my patient. No changes have occurred unless specified. Time Spent With Patient Time: Total time managing care of this patient today ____ minutes.
--- NOTE | 2023-08-04 07:27 | HO.PNOPHT ---
Ophthalmology Procedure Procedure Date of Service: 08/04/23 Ophthalmology Viscoelastic: Healon Duet Dual Pack Pro Ophthalmology Lenses: Other (MA60 21.5) Procedure Notes: PREOPERATIVE DIAGNOSIS: Decreased visual acuity left eye secondary to cataract POSTOPERATIVE DIAGNOSIS: Same PROCEDURE: Left cataract extraction with intraocular lens insertion SURGEON: Joseph Ellis M.D. ANESTHESIA: Topical/MAC ESTIMATED BLOOD LOSS: None COMPLICATIONS: None After obtaining informed consent, the patient was brought to the operation room suite and placed in the supine position. After adequate sedation per anesthesia, topical drops of Tetracaine were given to the left eye. The eye was then prepped and draped in the usual sterile fashion. The operating room microscope was then positioned over the operative eye and a lid speculum placed. A paracentesis was created. Viscoelastic was then instilled into the anterior chamber. A three plane incision was then created temporally, utilizing a 2.85 mm keratome. Capsulotomy forceps were then utilized to create a circular tear capsulotomy. Hydrodissection and hydrodelineation were carried out until adequate mobilization of the nucleus occurred. Phacoemulsification was then utilized to remove the dense central nucleus followed by removal of the cortical material utilizing the automated aspiration irrigation unit. Viscoat elastic was instilled into the posterior capsular bag followed by placement of a posterior chamber intraocular lens without difficulty. The residual Viscoat elastic was then removed utilizing the automated IA machine. The wound was check and found to be watertight. The patient tolerated the procedure well and the lid speculum was removed. Intracameral injection of Vigamox 0.1 mL followed by a subtenon injection of Kenalog-40 0.2 mL were administered. The patient will be seen in the a.m.
[2023-08-04 08:05] VITALS: BP 102/77; PULSE 74; RESP 16; TEMP 36.1; O2SAT 99
[2023-08-04 08:20] VITALS: BP 126/90; PULSE 85; RESP 16; TEMP 36.1; O2SAT 96
== END 2023-08-04 08:25 | disposition home or self-care (01) ==
PROVIDERS: PCP Internal Medicine; Visit Provider Ophthalmology
PROC: (CPT 66985; principal; 2023-08-04 07:30)
DX: H25.12 Age-related nuclear cataract, left eye (principal); H54.7 Unspecified visual loss; H40.1121 Primary open-angle glaucoma, left eye, mild stage; H18.413 Arcus senilis, bilateral; H11.153 Pinguecula, bilateral; I48.91 Unspecified atrial fibrillation; E78.00 Pure hypercholesterolemia, unspecified; J45.909 Unspecified asthma, uncomplicated; F32.A Depression, unspecified; Z79.01 Long term (current) use of anticoagulants; Z79.899 Other long term (current) drug therapy; Z87.891 Personal history of nicotine dependence
CPT/HCPCS: 66984; J2250; J3010; J3301; V2630

== ENCOUNTER 2023-08-14 09:53 | Outpatient (AMB) | payer MEDICARE, MEDICAID, SELFPAY ==
[2023-08-14 09:54] VITALS: BP 120/88; PULSE 95; BMI 28.4
--- NOTE | 2023-08-14 09:54 | A.OFFVIS_ITS ---
Intake Vital Signs 08/14/23 09:54 Height 5 ft 11 in Weight 203 lb 11.314 oz BMI 28.4 BP 120/88 Blood Pressure Location Lt brachial Position Sitting Pulse 95 Pulse Source Pulse Oximeter Intake Visit Reasons: f/u osteoporosis-confirmed Intake Note: Patient presents today for Osteoporosis follow up. Carbon Paper Interleafer Required: Yes Carbon Paper Interleafer Language: Tactical Air Control Party Manager Name: [facility] medical staff Information Interpreted: non-clinical & clinical Accompanied by: Brother Allergies No Known Allergies [No Known Allergies*] Allergy (Verified 08/14/23 10:02) HPI HPI Comments History of Present Illness Details 68 YO M with is seen in consultation a t the request of PCP for Osteoporosis. First diagnosed in Jun 2022 .Had compression fx Not Received treatment in the past . history of pathologic fracture T7, T9 and [id number] car but no ONJ. Has no servings of dietary calcium per day Takes Calcium supplement 600 mg BID in divided doses. Takes 1600 IU of Vitamin D daily. Denies ever using PPI, Takes anticoagulant Eliquis , antiepileptic or glucocorticoid medication. Does not weight bearing exercise Fracture history: as above Height loss: No No history of Kidney stones: Has family history of Osteoporosis in mother but no hip fracture. Not UTD on dental cleanings and sees dentist every 6 months. No planned upcoming dental work or extractions. DXA dated 09/26/22 :FINDINGS: AP SPINE L1-L4: BMD 0.862 g/cm2, Z-score -2.6, T-score -3.0, osteoporosis. LEFT FEMUR, NECK: BMD 0.737 g/cm2, Z-score -1.5, T-score -2.6, osteoporosis. LEFT FEMUR, TOTAL: BMD 0.804 g/cm2, Z-score -1.5, T-score -2.1, osteopenia. IDENTIFIED RISK FACTORS: Low calcium intake, history of fracture (adult). HISTORY OF FRACTURE: Thoracic spine status post vertebral augmentation T7 and T9. Clavicle. MEDICATIONS: Calcium, vitamin D. MM/XR DEXA axial skeleton IMPRESSION: 1. DIAGNOSIS: Osteoporosis based on the lowest T-score value of -3.0 in the lumbar spine applying [employer] crite On Tymlos for 8 mos . Had 2 additional fx before starting Tymlos Doing well On Tymlos. No fx since last visit. No unusual back pain -less pain PFSH Medical History Compression fracture of T7 vertebra Cervical spondylosis Bilateral tinnitus Ascending aorta dilatation Opacity of lung on imaging study Tubular adenoma of colon Generalized anxiety disorder Edentulous Cardiomyopathy Bipolar 1 disorder Emphysema lung Ascending aortic aneurysm Atrial fibrillation Osteoporosis Pneumonia Compression fracture of body of thoracic vertebra History of alcohol abuse CHF exacerbation Compression fracture of thoracic spine, non-traumatic Nonischemic cardiomyopathy Tubular adenoma of colon Dyspnea Pulmonary nodules COPD (chronic obstructive pulmonary disease) Personal history of nicotine dependence Hyperlipidemia Constipation GERD (gastroesophageal reflux disease) Depression Hypertension Surgical History Hx of kyphoplasty History of surgery on left wrist (~03/21/10) Hx of endoscopy Hx of colonoscopy (~02/13/06) Hx of cataract surgery (~07/02/10) History of appendectomy History of gastric surgery Family History Mother Renal failure Father History of depression Brother Colon cancer Social History Household Members: None Housing: Apartment Are you a primary personal care home administrator to a significant other at home: No Do you presently have visiting nurse or other home services: No Alcohol intake: never Patient Tobacco Use Status: Former Tobacco user Quit Date: 2 yrs ago Tobacco use type: Cigarette Cigarette Packs Per Day: 0.5 Years Smoked: 55 e-Cigarette/Vaping Use: Former Use Second Hand Smoke Exposure: No Advance Directives Date on File: 09/02/22 service: No Current occupational status: unemployed and disabled 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 Secondary workup was negative Plan is continue the [employer] Quality Reporting (2020) Adult ([facility] 138/[birth year]/14/68) Smoking risk assessment performed?: Yes Patient Tobacco Use Status: Former Tobacco user Coding Level of Care Code Est Pt Level 3 (24240) Diagnoses Osteoporosis M81.0
== END 2023-08-14 10:12 | disposition home or self-care (01) ==
PROVIDERS: PCP Internal Medicine; Visit Provider Internal Medicine Endocrinology, Diabetes & Metabolism
DX: M81.0 Age-related osteoporosis without current pathological fracture (principal)
CPT/HCPCS: 99213

== ENCOUNTER → 2023-08-14 09:53 | Outpatient (BNVA) | payer MEDICARE, MEDICAID, SELFPAY | PROVIDERS: PCP Internal Medicine; Visit Provider Internal Medicine Endocrinology, Diabetes & Metabolism | DX: M81.0 Age-related osteoporosis without current pathological fracture (principal) | CPT/HCPCS: 99212 ==

== ENCOUNTER 2023-08-26 11:47 | Outpatient (REF) | payer MEDICARE, MEDICAID, SELFPAY ==
[2023-08-26 14:10] LABS: MANUAL DIFF FLAG NO
[2023-08-26 14:18] LABS: Basophils Percent Auto 0.5 % (0-2); Eosinophils Absolute Auto 0.1 X10*3/uL (0.0-0.4); Eosinophils Percent Auto 1.4 % (0-4); Hematocrit 37.1 % (42.0-52.0); Hemoglobin 10.7 g/dl (14.0-18.0); Imm Gran Abs Auto 0.01 X10*3/uL (0.00-0.03); Imm Gran Pct Auto 0.2 % (0.0-0.4); Lymphocytes Absolute Auto 1.7 X10*3/uL (1.2-4.9); Mean Corpuscular HGB Conc 28.8 g/dl (31.0-36.0); Mean Corpuscular Hemoglobin 21.5 pg (27.0-33.0); Mean Corpuscular Volume 74.5 fL (80.0-98.0); Mean Platelet Volume 10.1 fL (9.4-12.4); Monocytes Absolute Auto 0.5 X10*3/uL (0.1-1.2); Monocytes Percent Auto 8.8 % (2-11); Neutrophils Absolute Auto 3.4 x10*3/uL (2.0-8.3); Neutrophils Percent Auto 59.1 % (45-73); Platelet Count 263 X10*3/uL (160-400); Red Blood Count 4.98 X10*6/uL (4.60-5.80); White Blood Count 5.8 X10*3/uL (4.8-10.8)
== END 2023-08-26 11:48 | disposition home or self-care (01) ==
LOC: HO.HHCL 11:47
PROVIDERS: Visit Provider Internal Medicine
DX: K92.2 Gastrointestinal hemorrhage, unspecified (principal)
CPT/HCPCS: 36415; 85025

== ENCOUNTER 2023-08-29 09:07 | Outpatient (AMB) | payer MEDICARE, MEDICAID, SELFPAY ==
--- NOTE | 2023-08-29 09:20 | MHC.OFFVIS ---
Intake Vital Signs 08/29/23 09:23 Height 5 ft 11 in Weight 197 lb BMI 27.5 BP 102/79 Blood Pressure Location Lt brachial Position Sitting Pulse 83 Intake Visit Reasons: 1 month follow up eros esophagitis, CIC, anemia Intake Note: Patient follow up for [place] Esophagitis, CIC, Anemia. Patient cc: tiredness, acid reflex, diarrhea on and off. Denies any other GI issues. Supervisor Warping Department Required: No Accompanied by: Sister Allergies No Known Allergies [No Known Allergies*] Allergy (Verified 08/29/23 09:19) HPI 1 month follow up eros esophagitis, CIC, anemia HPI Details Assessment & Plan (1) Chronic idiopathic constipation: Code(s): K59.04 - Chronic idiopathic constipation (2) Small bowel motility disorder: Code(s): K59.9 - Functional intestinal disorder, unspecified (3) Erosive esophagitis: Code(s): K22.10 - Ulcer of esophagus without bleeding (4) GI bleed: Code(s): K92.2 - Gastrointestinal hemorrhage, unspecified Plan Mal[place]ian # family member translates per patient request. Patient was admitted 07/09/23 after presenting with coffee emesis and upper abdominal discomfort and subsequent EGD showed erosive esophagitis and erosive gastritis. He was told to continue his Dexilant famotidine was given omeprazole 20 mg twice a day.? Why not Carafate? Perhaps related to his complex medication schedule. He did not have his colonoscopy which is expected to be rescheduled as an outpatient procedure. They saw his PCP and they told him to stop the Dexilant and just take the omeprazole 20mg bid and the famotidine. I will add a qnoon dose of liquid carafate to aid healing. He has not vomiting since he came home from the hospital. He actually had cataract surgery on 08/04, not the colonoscopy, so I will get this ordered and will proceed. They are in agreement. He still has the prep from when he was rescheduled after being in rehab. He is still having some dark stools. We also improve their understanding about how to take the reglan before meals. His sister is now helping him with his medicines but admits he was not very compliant with taking them consistently or accurately prior to this. He is not smoking or drinking ETOH now. He does have the feeling of food being delayed at the GE jxn. He is on iron and vit c therapy, which I advise them to take with food despite a slight delay in absorption to prevent further esophageal or peptic irritation that can occur commonly with iron therapy. He had a supplement for pernicious anemia aimed at B 12 supplementation, he can continue this as it will not hurt but I explained to them that this is not the kind of anemia he is having which is from blood loss. I say this only so that they do not rely on this supplement exclusively he really needs to take his iron pills. ROV 4 weeks. Orders: Orders Colonoscopy - GI U se Only Today K92.2 - Gastrointe stinal hemorrhage, unspecified Medications: New sucralfate (Carafa te) 20 mL PO QNOON 1, 000 mL 0RF K22.10 - Ulcer of esophagus without bleeding Changed From metoclopramide HCl 10 mg PO BID K22.10 - Ulcer of esophagus without bleeding, K59.9 - Functional intesti nal disorder, unsp ecified To metoclopramide HCl 10 mg PO .bidac 6 0 tabs 6RF K22.10 - Ulcer of esophagus without bleeding, K59.9 - Functional intesti nal disorder, unsp ecified COLONOSCOPY SCHEDULED FOR 11/07/2023 BIOPSY TODAY'S VISIT [place]ian #Sister translates per pt request His current GI regimen consists of omeprazole 20 mg twice a day, psyllium husk fiber, metoclopramide 10 mg 4 times a day, Linzess 145 micro g daily and famotidine 40 mg at bedtime for breakthrough and liquid carafate. He is feeling much better, swallowing is improved, has occasoni loose stools but not so dark (carafate will help this as well). No CIC. No nausea. Keep 11/20 appt. [facility] Medical History Compression fracture of T7 vertebra Cervical spondylosis Bilateral tinnitus Ascending aorta dilatation Opacity of lung on imaging study Tubular adenoma of colon Generalized anxiety disorder Edentulous Cardiomyopathy Bipolar 1 disorder Emphysema lung Ascending aortic aneurysm Atrial fibrillation Osteoporosis Pneumonia Compression fracture of body of thoracic vertebra History of alcohol abuse CHF exacerbation Compression fracture of thoracic spine, non-traumatic Nonischemic cardiomyopathy Tubular adenoma of colon Dyspnea Pulmonary nodules COPD (chronic obstructive pulmonary disease) Personal history of nicotine dependence Hyperlipidemia Constipation GERD (gastroesophageal reflux disease) Depression Hypertension Surgical History Hx of kyphoplasty History of surgery on left wrist (~03/21/10) Hx of endoscopy Hx of colonoscopy (~02/13/06) Hx of cataract surgery (~07/02/10) History of appendectomy History of gastric surgery Family History Mother Renal failure Father History of depression Brother Colon cancer Social History Household Members: None Housing: Apartment Are you a primary career development director to a significant other at home: No Do you presently have visiting nurse or other home services: No Alcohol intake: never Patient Tobacco Use Status: Former Tobacco user Quit Date: 2 yrs ago Tobacco use type: Cigarette Cigarette Packs Per Day: 0.5 Years Smoked: 55 e-Cigarette/Vaping Use: Former Use Second Hand Smoke Exposure: No Advance Directives Date on File: 09/02/22 service: No Current occupational status: unemployed and disabled 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 Review of Systems Const Denies fatigue, Denies fever(s), Denies night sweats, Denies poor appetite and Denies weight loss ENT Reports Normal hearing present, Denies dental pain, Reports dysphagia, Denies hearing loss, Denies mouth pain, Denies odynophagia, Denies throat swelling, Denies tongue swelling and Reports other (Dentition adequate) Card Reports no additional complaints Resp Reports no additional complaints GI Details: Denies abdominal pain, Denies melena, Denies bloating, Denies hematochezia, Reports constipation, Denies GI cramping, Reports dysphagia, Denies excessive flatus, Denies early satiety, Reports heartburn, Denies diarrhea, Denies nausea, Denies odynophagia, Denies vomiting and Denies hematemesis Skin/Breast Denies pruritus, Denies lesions, Denies rash and Denies jaundice Neuro Reports Normal hearing present and Denies Abnormal speech present Endo Denies fatigue Aller/Immun Denies throat swelling and Denies tongue swelling Physical Exam Vital Signs: Last Vital Signs Pulse 83 08/29/23 09:23 BP 102/79 08/29/23 09:23 BMI result Body Mass Index 27.5 Const General: cooperative, no acute distress, well developed and well groomed Nutritional Appearance: average body habitus and well nourished Orientation/consciousness: oriented to person, oriented to place and oriented to time Limitations: language barrier HEENT Head: Yes normocephalic and Yes atraumatic Eyes General: appearance normal, both eyes and all related structures Pupils: Equal, round and reactive pupils present Neck Neck: Yes normal visual inspection and Yes no lymphadenopathy Thyroid: Thyroid normal Resp Effort & Inspection: normal respiratory effort and able to speak in complete sentences Auscultation: clear to auscultation bilaterally Cardio Rate: regular rate Rhythm: regular rhythm Heart sounds: Normal, physiologic split S2 sound present Peripheral pulses: radial pulses present and posterior tibial pulses present GI Inspection: No distended, No Abdominal panniculus present and Yes obesity Palpation (GI): Soft to palpation, nontender, no guarding, not rigid and No hepatosplenomegaly present Percussion: Yes normal to percussion Auscultation: normal bowel sounds Rectal Exam - Male: Yes deferred Skin General skin exam: no rashes or lesions noted, turgor normal, skin not dry, no jaundice, No spider nevi and no striae Rashes: no rashes Nails: normal Neuro General: oriented to person, oriented to place and oriented to time Cranial nerves: Yes Equal, round and reactive pupils present and Yes Normal hearing present Speech: No Abnormal speech present Extrem General: Yes normal to inspection, No clubbing, No cyanosis and No edema Psych Appearance: grossly normal and well kempt Mental Status: mental status grossly normal Speech and movement: Normal speech and movement present Affect: normal affect Attitude: cooperative Thought process: Normal thought process present and not confabulating Thought content: Normal thought content present Insight: Limited insight present (Psych) Judgement: Limited judgement present (Psych) Assessment & Plan Assessment & Plan (1) Chronic idiopathic constipation: Code(s): K59.04 - Chronic idiopathic constipation (2) Small bowel motility disorder: Code(s): K59.9 - Functional intestinal disorder, unspecified (3) Erosive esophagitis: Code(s): K22.10 - Ulcer of esophagus without bleeding (4) Tubular adenoma of colon: Comment: 2016 scope = TA repeat 5 years aeb Code(s): D12.6 - Benign neoplasm of colon, unspecified Plan [place]ian #Sister translates per pt request His current GI regimen consists of omeprazole 20 mg twice a day, psyllium husk fiber, metoclopramide 10 mg 4 times a day, Linzess 145 micro g daily and famotidine 40 mg at bedtime for breakthrough and liquid carafate. He is feeling much better, swallowing is improved, has occasoni loose stools but not so dark (carafate will help this as well). No CIC. No nausea. Keep 11/20 appt. COLONOSCOPY SCHEDULED FOR 11/07/2023 BIOPSY Quality Reporting (2019) Adult ([facility] 138/08/14/68) Smoking risk assessment performed?: Yes Patient Tobacco Use Status: Former Tobacco user Coding Level of Care Code Est Pt Level 3 (73930) Diagnoses Chronic idiopathic constipation K59.04 Small bowel motility disorder K59.9 Erosive esophagitis K22.10 Tubular adenoma of colon D12.6
[2023-08-29 09:23] VITALS: BP 102/79; PULSE 83; BMI 27.5
== END 2023-08-29 10:29 | disposition home or self-care (01) ==
PROVIDERS: PCP Internal Medicine; Visit Provider Nurse Practitioner
DX: K59.04 Chronic idiopathic constipation (principal); K59.9 Functional intestinal disorder, unspecified; K22.10 Ulcer of esophagus without bleeding; D12.6 Benign neoplasm of colon, unspecified
CPT/HCPCS: 99213

== ENCOUNTER → 2023-08-29 09:07 | Outpatient (BNVA) | payer MEDICARE, MEDICAID, SELFPAY | PROVIDERS: PCP Internal Medicine; Visit Provider Nurse Practitioner | DX: K59.04 Chronic idiopathic constipation (principal); K59.9 Functional intestinal disorder, unspecified; K22.10 Ulcer of esophagus without bleeding; D12.6 Benign neoplasm of colon, unspecified | CPT/HCPCS: 99212 ==

== ENCOUNTER 2023-09-26 10:11 | Outpatient (AMB) | payer MEDICARE, MEDICAID, SELFPAY ==
--- NOTE | 2023-09-26 10:14 | MHC.OFFVIS ---
Intake Vital Signs 09/26/23 10:16 Height 5 ft 11 in Weight 200 lb 9.93 oz BMI 28.0 Pulse 89 Pulse Source Pulse Oximeter Pulse Oximetry (%) 95 Oxygen Delivery Method Room Air Intake Visit Reasons: COPD Bmet Required: No Allergies No Known Allergies [No Known Allergies*] Allergy (Verified 09/26/23 10:17) HPI HPI Comments History of Present Illness Details The patient is a 68-year-old gentleman with a known history of tobacco dependency, COPD with significant emphysema and pulmonary nodules is here for evaluation. The patient to smoke was 2 point complaints of shortness of breath with activity and also complains of cough. [id number] severity. Feels like his legs are very heavy in does get fatigued with activity. He does continue to use inhalers which include Flovent and Spiriva. He uses them with good adherence. He does not have a rescue inhaler at this time. We did talk about smoking. The patient is down to 10 cigarettes a day. He is struggling to decrease further. He was on Chantix but was making and depressed. Therefore will hold off on additional Chantix. He will be a good candidate for Wellbutrin however. Also, in conjunction with Wellbutrin I will prescribe the Nicotrol inhaler that he can use in between for breakthrough nicotine withdrawals. In the patient has had multiple CT scans of the chest in currently participating in the lung cancer screening program. Her last CT scan was done just a few days ago 02/05/2021 demonstrating stable right upper lobe pulmonary nodules. He does have moderate to severe emphysema primarily in the upper lung zones. In he also is following up with Dr. Arce from thoracic surgery. Will continue monitoring the pulmonary nodule in the right upper lobe closely. The patient does have a family history of lung cancer and also pulmonary fibrosis. 01/23/2023 the patient is here for pulmonary follow-up visit. The patient overall has been doing well from a respiratory status. He is having significant amount of back pain. He did have a compression fracture that was 6 in now having issues with other back issues. She was referred to a neurosurgeon. At this point he is waiting that appointment. Clinically patient doing very well from a respiratory status he has stop smoking he has been using the Trelegy inhaler. Under go ahead and decrease the amount of steroids to the lower dose Trelegy. The patient also underwent a CT scan of the chest which I personally reviewed with him. All the findings are reassuring the nodular densities appear to be stable not smaller. He does have extensive emphysema however. That has not changed. No significant scarring noted. He will need another CT scan for another year. Will follow-up in the springtime. 03/14/2023 the patient is here for pulmonary follow-up visit. Overall the patient is doing very well from a respiratory status. He continues uses respiratory therapy with good effect. The patient has not required any prednisone or rescue therapy. He has been having significant back pain. He recently did have an MRI of the back demonstrating new or worsening lumbar compression fractures. He will be following up with pain management soon. He may need to have additional kyphoplasty done. He is going to be working with them. In the meantime more respiratory status the patient is doing well and she will be able to tolerate anesthesia for his procedure. The patient also had a CT scan of the chest demonstrating stable pulmonary nodules. He does have extensive emphysema. Overall the patient has been doing well after he is quit smoking. We did do alpha-1 testing which was completely normal. will go ahead and follow-up in 1 year. If the patient develops any symptoms prior to that he is call the office for an earlier assessment. 09/26/2023 the patient is here for a pulmonary follow-up visit. Overall he is doing fairly well from respiratory status. He continues with this tobacco cessation. He continues with the Trelegy inhaler. Does not really use his rescue inhaler often. Typically less than twice a week. He does have dyspnea on exertion specially going up a flight of stairs. Explained to him that not only does have COPD but he has also been more anemic in the last few months that is also contributing to his breathing. In addition to that he is gained some weight. He is scheduled to have a repeat CT scan in the summer subsequently her follow-up in the fall with PFTs. At that point will plan to get him scheduled for pulmonary rehabilitation. For now he can work on his other issues that he is having such as the anemia and his musculoskeletal discomforts. [facility] Medical History Compression fracture of T7 vertebra Cervical spondylosis Bilateral tinnitus Ascending aorta dilatation Opacity of lung on imaging study Tubular adenoma of colon Generalized anxiety disorder Edentulous Cardiomyopathy Bipolar 1 disorder Emphysema lung Ascending aortic aneurysm Atrial fibrillation Osteoporosis Pneumonia Compression fracture of body of thoracic vertebra History of alcohol abuse CHF exacerbation Compression fracture of thoracic spine, non-traumatic Nonischemic cardiomyopathy Tubular adenoma of colon Dyspnea Pulmonary nodules COPD (chronic obstructive pulmonary disease) Personal history of nicotine dependence Hyperlipidemia Constipation GERD (gastroesophageal reflux disease) Depression Hypertension Surgical History Hx of kyphoplasty History of surgery on left wrist (~03/21/10) Hx of endoscopy Hx of colonoscopy (~02/13/06) Hx of cataract surgery (~07/02/10) History of appendectomy History of gastric surgery Family History Mother Renal failure Father History of depression Brother Colon cancer Social History Household Members: None Housing: Apartment Are you a primary out of school hours care worker to a significant other at home: No Do you presently have visiting nurse or other home services: No Alcohol intake: never Patient Tobacco Use Status: Former Tobacco user Quit Date: 2 yrs ago Tobacco use type: Cigarette Cigarette Packs Per Day: 0.5 Years Smoked: 55 e-Cigarette/Vaping Use: Former Use Second Hand Smoke Exposure: No Advance Directives Date on File: 09/02/22 service: No Current occupational status: unemployed and disabled 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 Review of Systems Const Reports difficulty sleeping ENT Reports no additional complaints and Reports neck pain Card Denies chest pain and Reports dyspnea on exertion Resp Reports as per HPI, Reports cough, Denies hemoptysis, Denies pain on inspiration, Denies pain with cough and Reports dyspnea on exertion GI Reports bloating and Reports heartburn Musc Reports back pain, Reports myalgias, Reports limited range of motion, Reports muscle weakness (GENERALISED ) and Reports neck pain Neuro Reports no additional complaints and Reports radicular pain Psych Reports depression (ON MEDS ) Physical Exam Vital Signs: Last Vital Signs Pulse 89 09/26/23 10:16 Pulse Ox 95 09/26/23 10:16 Oxygen Delivery Method Room Air 09/26/23 10:16 BMI result Body Mass Index 28.0 Last Vital Signs Temp 98.0 F 08/28/22 07:30 Pulse 88 08/28/22 07:48 Resp 18 08/28/22 07:48 BP 110/60 08/28/22 07:30 Pulse Ox 94 08/28/22 07:30 O2 Del Method 08/28/22 07:30 O2 Flow Rate 2.5 08/28/22 07:30 BMI result Body Mass Index 28.5 Const General: alert Neck Neck: Yes normal visual inspection, Yes full ROM and Yes no lymphadenopathy Chest Chest palpation & inspection: normal inspection of the chest Resp Effort & Inspection: normal respiratory effort Auscultation: diminished lung sounds Cardio Rate: regular rate Rhythm: abnormal rhythm Heart sounds: S1 normal heart sound present and S2 normal heart sound present GI Palpation (GI): Soft to palpation and nontender Auscultation: normal bowel sounds Back/Spine/Pelvis Back: back tenderness Skin General skin exam: rashes and/or lesions noted Assessment & Plan Assessment & Plan (1) Pulmonary nodules: Code(s): R91.8 - Other nonspecific abnormal finding of lung field (2) COPD (chronic obstructive pulmonary disease): Code(s): J44.9 - Chronic obstructive pulmonary disease, unspecified Qualifiers: COPD type: emphysema Emphysema type: centrilobular Qualified Code(s): J43.2 - Centrilobular emphysema (3) Dyspnea: Code(s): R06.00 - Dyspnea, unspecified Qualifiers: Dyspnea type: dyspnea on exertion Qualified Code(s): R06.09 - Other forms of dyspnea (4) COPD (chronic obstructive pulmonary disease): Code(s): J44.9 - Chronic obstructive pulmonary disease, unspecified Qualifiers: COPD type: emphysema Emphysema type: centrilobular Qualified Code(s): J43.2 - Centrilobular emphysema Plan Continue Trelegy inhaler 100 hold overnight oximetry BARBARA as needed PFTs in 6 months consider pulmonary rehab LDCT F/U in 6 months Orders: Orders PFT pulmonary function test 6 Months J44.9 - Chronic obstructive pulmonary disease, unspecified Quality Reporting (2019) Adult ([facility] 138/08/14/68) Smoking risk assessment performed?: Yes Patient Tobacco Use Status: Former Tobacco user Coding Level of Care Code Est Pt Level 4 (58402) Diagnoses Pulmonary nodules R91.8 Centrilobular emphysema J43.2 COPD type: emphysema Emphysema type: centrilobular Dyspnea on exertion R06.09 Dyspnea type: dyspnea on exertion Time Spent (min) 16
[2023-09-26 10:16] VITALS: PULSE 89; O2SAT 95; BMI 28.0
== END 2023-09-26 10:30 | disposition home or self-care (01) ==
PROVIDERS: PCP Student in an Organized Health Care Education/Training Program; Visit Provider Hospitalist
DX: R91.8 Other nonspecific abnormal finding of lung field (principal); J43.2 Centrilobular emphysema; R06.09 Other forms of dyspnea
CPT/HCPCS: 99214

== ENCOUNTER → 2023-09-26 10:11 | Outpatient (BNVA) | payer MEDICARE, MEDICAID, SELFPAY | PROVIDERS: PCP Student in an Organized Health Care Education/Training Program; Visit Provider Hospitalist | DX: R91.8 Other nonspecific abnormal finding of lung field (principal); J43.2 Centrilobular emphysema; R06.09 Other forms of dyspnea | CPT/HCPCS: 99212 ==

== ENCOUNTER 2023-10-16 15:36 | Emergency (ER) | payer MEDICARE, MEDICAID, SELFPAY ==
--- NOTE | ~2023-10-16 | CT_ITS ---
EXAMINATION: CT LUMBAR SPINE WITHOUT CONTRAST CLINICAL INFORMATION: History of compression fracture COMPARISON: MRI spine from 03/12/2023. TECHNIQUE: Multidetector helical imaging acquired in the axial plane with generation of reformatted acquisitions. This CT examination was performed using dose optimization techniques as appropriate, variously including the following: *Automated exposure control *Adjustment of mA and/or kV according to patient size (this includes techniques or standardized protocols for targeted exams where dose is matched to indication/reason for exam; i.e. extremities or head) *Use of iterative reconstruction technique DLP; 545 mGy-cm FINDINGS: Chronic compression fracture deformities, status post vertebral body augmentation are visible at the L1 and L2 levels with bony retropulsion, as seen on prior imaging. There is a chronic mild superior endplate compression deformity at the L4 level, which is stable in appearance compared to the prior exam. Very mild leftward lumbar spinal curvature noted. No new compression fractures are seen. There is significant vacuum disc phenomenon at the L4-L5 level with moderate facet arthropathy. Bulging disc mildly encroaches upon the right neural foramen at this level. No central canal stenosis evident. A mild right lateralized disc bulge is evident at the L3-L4 level without central canal stenosis or foraminal encroachment. The L2-L3 disc space is relatively normal with a mild left lateralized disc bulge. No central canal stenosis or foraminal narrowing is evident. Mild disc bulge noted with mild facet arthropathy at the L1-L2 level where there is no central canal stenosis or foraminal encroachment. Osseous retropulsion from the superior endplate at the L1 level mildly distorts the ventral thecal sac. There is mild epidural fat prominence throughout the lumbosacral canal resulting in mild distortion of the thecal sac at the L3-L4 level and pdcv-yw-[id number] thecal sac deformity at the L4-L5 level. There is moderate thecal sac distortion at the L5-S1 level as a result of epidural fat prominence in combination with spondylosis, otherwise stable. At the L5-S1 level, there is severe disc space narrowing and vacuum disc phenomenon with endplate spurring contributing to [id number]-xd-gkjknbbh bilateral foraminal encroachment, without central canal stenosis. There are mild degenerative changes of the sacroiliac joints bilaterally with ossific spurring and vacuum phenomenon. No additional fracture identified. The paraspinal soft tissues are normal. CT/CT lumbar spine wo IV con IMPRESSION: Interval vertebral body augmentation at the L1 and L2 levels with stable moderate to severe compression fracture deformities, worse at the L1 level. Chronic mild superior endplate compression fracture at L4 which is also stable. No additional compression fractures. Stable spondylosis with vacuum disc phenomenon at the L4-L5 and L5-S1 levels. Chronic severe degenerative disc disease at L5-S1 with [id number]-rf-[id number] bilateral foraminal narrowing. No significant central canal stenosis. Stable epidural lipomatosis resulting in varying degrees of thecal sac distortion from the L3 to the upper S1 levels.
--- NOTE | ~2023-10-16 | CT_ITS ---
EXAMINATION: CT PELVIS WITHOUT CONTRAST CLINICAL INFORMATION: Pain with history of osteoporosis. COMPARISON: CT lumbar spine earlier today: Interval vertebral body augmentation at the L1 and L2 levels with stable xkixfxdt-dl-cripuk compression fracture deformities, worse at the L1 level. Chronic mild superior endplate compression fracture at L4, which is also stable. No additional compression fractures. Stable spondylosis with vacuum disc phenomenon at the L4-L5 and L5-S1 levels. Chronic severe degenerative disc disease at L5-S1 with xoqf-gp-rzrupprw bilateral foraminal narrowing. No significant central canal stenosis. Stable epidural lipomatosis resulting in varying degrees of thecal sac distortion from the L3 to the upper S1 levels. TECHNIQUE: Helical scanning was performed with submillimeter collimation through the pelvis. Sagittal and coronal multiplanar 2-D reconstructions were obtained. This CT examination was performed using dose optimization techniques as appropriate, variously including the following: *Automated exposure control *Adjustment of mA and/or kV according to patient size (this includes techniques or standardized protocols for targeted exams where dose is matched to indication/reason for exam; i.e. extremities or head) *Use of iterative reconstruction technique DLP: 972 mGy-cm. FINDINGS: Marked degenerative changes seen at L4-L5 and L5-S1. Please see report of CT scan of the lumbosacral spine for details of the spine. There is generalized osteopenia. No pelvic or hip fracture is seen. No stress fractures are identified. The visualized bowel appears normal. The appendix is not seen The aorta and iliofemoral vessels are unremarkable. The prostate, seminal vesicles and bladder are unremarkable. No retroperitoneal lymphadenopathy. No free fluid. No abdominal wall hernias. CT/CT pelvis wo IV con IMPRESSION: 1. No evidence of a pelvic or hip fracture. 2. Degenerative changes in the spine.
--- NOTE | 2023-10-16 15:48 | ED.GENADULT ---
HPI - General Adult General Chief complaint: Back Pain/Injury Stated complaint: side to back pain, in bones? Time Seen by Provider: 10/16/23 16:13 Source: patient, old records reviewed and ironer hand Mode of arrival: ambulatory Limitations: no limitations History of Present Illness HPI narrative: 68-year-old male with a history of osteoporosis, multiple vertebral compression fractures status post kyphoplasties in the past, history of atrial fibrillation, constipation, small bowel motility disorder, glaucoma, COPD, CHF who presents to the ER for evaluation of whole-body pain. He states has acute on chronic low back pain and the last few days it is worse than usual. It wraps around from his lower back around to his bilateral hips. States all of his bones hurt. He denies any recent trauma or injury. He states he has had back pain since he had a procedure done to his lower back last December. He has been taking Tylenol with no relief. He denies any bowel or bladder issues, no urinary incontinence or difficulty emptying his bladder. No fever or chills. No URI symptoms. No abdominal pain or chest pain. he states he has history of osteoporosis and is on an injectable medication. MD complaint: acute on chronic low back pain, all over bone pain Onset (ago): month(s) Location: back, pelvis, left, right and upper extremity Radiation: distal Severity: severe Severity scale (1-10): 9 Quality: stabbing and aching Pain Consistency: constant Relieving factors: none Exacerbating factors: rest Associated symptoms: denies other symptoms Treatments prior to arrival: none Related Data Home Medications ?Medication ?Instructions ?Recorded ?Confirmed latanoprost 0.005 % eye drops 1 drp ophthalmic (eye) BEDTIME 03/27/20 07/31/23 famotidine 40 mg tablet 40 mg PO BEDTIME PRN heartburn 07/09/23 07/31/23 albuterol sulfate 90 mcg/actuation 2 puff inhalation Q4-6H PRN 07/31/23 07/31/23 aerosol inhaler (Ventolin HFA) wheezing lidocaine 5 % topical patch 1 patch topical DAILY 07/31/23 07/31/23 metoclopramide HCl 10 mg tablet 10 mg PO QIDACHS 07/31/23 07/31/23 naloxone 4 mg/actuation nasal spray 1 spray intranasal DIRECTED 07/31/23 07/31/23 psyllium husk 3 gram/3 gram oral 5.12 g PO DAILY 07/31/23 07/31/23 powder quetiapine 300 mg tablet 300 mg PO BEDTIME 07/31/23 07/31/23 simvastatin 20 mg tablet 20 mg PO QPM 07/31/23 07/31/23 tizanidine 2 mg tablet 2 mg PO BID PRN muscle spasm 09/26/23 trazodone 100 mg tablet 200 mg PO BEDTIME PRN 09/26/23 Previous Rx's ?Medication ?Instructions ?Recorded apixaban 5 mg tablet (Eliquis) 5 mg PO BID #60 tabs 05/06/22 sotalol 80 mg tablet 80 mg PO BID #80 tabs 06/01/22 fluticasone fur. 100 mcg-umeclid 1 inh inhalation DAILY 30 days #60 01/23/23 62.5 mcg-vilant 25 mcg ea inhalat.powder (Trelegy Ellipta) omeprazole 20 mg tablet,delayed 20 mg PO BID #180 tabs 08/19/23 release sucralfate 100 mg/mL oral 20 ml PO QNOON #1,000 mL 08/29/23 suspension (Carafate) linaclotide 145 mcg capsule 145 mcg PO QAM #90 caps 09/08/23 (Linzess) abaloparatide (Tymlos) 80 mcg (0.04 mL) subcut DAILY 10/15/23 #1.56 mL cyclobenzaprine 10 mg tablet 10 mg PO TID PRN muscle spasm #15 10/16/23 tabs dexamethasone 4 mg tablet 4 mg PO BID #6 tabs 10/16/23 tramadol 50 mg tablet 50 mg PO TID PRN pain #12 tabs 10/16/23 Allergies Allergy/AdvReac Type Severity Reaction Status Date / Time No Known Allergies Allergy Verified 10/16/23 15:58 [No Known Allergies*] Review of Systems Review of Systems: Yes all other systems are reviewed and are negative [facility] Past Medical History Medical History Compression fracture of T7 vertebra Cervical spondylosis Bilateral tinnitus Ascending aorta dilatation Opacity of lung on imaging study Tubular adenoma of colon Generalized anxiety disorder Edentulous Cardiomyopathy Bipolar 1 disorder Emphysema lung Ascending aortic aneurysm Atrial fibrillation Osteoporosis Pneumonia Compression fracture of body of thoracic vertebra History of alcohol abuse CHF exacerbation Compression fracture of thoracic spine, non-traumatic Nonischemic cardiomyopathy Tubular adenoma of colon Dyspnea Pulmonary nodules COPD (chronic obstructive pulmonary disease) Personal history of nicotine dependence Hyperlipidemia Constipation GERD (gastroesophageal reflux disease) Depression Hypertension Surgical History Hx of kyphoplasty History of surgery on left wrist (~03/21/10) Hx of endoscopy Hx of colonoscopy (~02/13/06) Hx of cataract surgery (~07/02/10) History of appendectomy History of gastric surgery Family History Family History Mother Renal failure Father History of depression Brother Colon cancer Social History Social History Household Members: None Housing: Apartment Are you a primary child care center assistant director to a significant other at home: No Do you presently have visiting nurse or other home services: No Alcohol intake: never Patient Tobacco Use Status: Former Tobacco user Quit Date: 2 yrs ago Tobacco use type: Cigarette Cigarette Packs Per Day: 0.5 Years Smoked: 55 e-Cigarette/Vaping Use: Former Use Second Hand Smoke Exposure: No Advance Directives: Yes Advance Directives on File: Yes Advance Directives Date on File: 09/02/22 Do you have a plan to hurt others: No Plan service: No Current occupational status: unemployed and disabled 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 Oriented X3. No acute distress. Head: normocephalic, atraumatic. Eyes: Pupils equal, round and reactive to light. ENT: Pharynx normal. No tonsillar swelling or exudate. Neck: Normal inspection. Neck supple. CVS: Normal heart rate and rhythm. Pulses normal. Respiratory: No respiratory distress. Breath sounds normal. Abdomen: Soft and nontender. +BS x4 Back: Normal inspection. There is midline tenderness of the lumbar spine, no midline tenderness of the thoracic or cervical spine. Negative straight leg raise test bilaterally. Skin: Skin warm and dry. Normal skin color. Normal skin turgor. No rashes. Extremities: No lower extremity edema. No joint swelling. Neuro/psych: Oriented X 3. No motor deficit. No sensory deficit. CN II-XII intact. Normal speech and cognition. Course Course Course Narrative: This is a rapid medical exam: Additional HPI, ROS, PE not included below will be deferred to primary provider. Patient is a 68-year-old male with history of degenerative disc disease, recent back surgery, COPD, osteoporosis presenting to the ED with complaint of bone pain to back, chest, pelvis. Reevaluation(s) Reevaluation #1: Patient received in sign-out at change of shift pending CT scan of the L-spine and pelvis. There were no apparent new compression deformities or other acute findings. I discussed these with the patient using a event manager. Will discharge him with dexamethasone, cyclobenzaprine and tramadol for pain. He has a history of GI bleed, so will avoid NSAIDs Time: 23:06 Medical Decision Making Medical Decision Making MDM Narrative: 68-year-old male with a history of osteoporosis, multiple thoracic and lumbar compression fractures status post kyphoplasties in the past with Dr. Munroe who presents to the ER for acute on chronic low back pain and hip pain. He had a lumbar MRI in the fall. This showed multiple acute to subacute compression fractures along with chronic compression fractures in the lumbar spine. Will repeat CT imaging today for better idea of his fractures and see if there are any new fractures. Unclear if he will be a candidate for repeat kyphoplasty in the past. He has no red flag symptoms of low back pain. he is on Eliquis therefore can not prescribe anti-inflammatory agents. May benefit from a consult from pain management. Differential Diagnosis Differential Diagnoses: The differential diagnosis associated with the presentation includes compression fractures, inflammatory disorders, malignancy, trauma, osteoporosis, nerve root compression, radiculopathy, plexopathy, degenerative disc disease, disc herniation, spinal stenosis, sacroiliac joint dysfunction, facet joint injury, and less likely infection?like abscess or diskitis Radiology Impression Discussion of test interpretation with radiology: I have reviewed the radiologist's reading. Radiologist Impression: IMPRESSION: Interval vertebral body augmentation at the L1 and L2 levels with stable moderate to severe compression fracture deformities, worse at the L1 level. Chronic mild superior endplate compression fracture at L4 which is also stable. No additional compression fractures. Stable spondylosis with vacuum disc phenomenon at the L4-L5 and L5-S1 levels. Chronic severe degenerative disc disease at L5-S1 with [id number] bilateral foraminal narrowing. No significant central canal stenosis. Stable epidural lipomatosis resulting in varying degrees of thecal sac distortion from the L3 to the upper S1 levels. External Record Review External record reviewed: Office record, Outpatient record, Prior outpatient labs and Prior outpatient radiology Prescription Management I considered prescription management with: Pain Medication Chronic Conditions Patient?s care impacted by: Other ( Osteoporosis) Discharge Plan Discharge Clinical Impression: Chronic back pain, Osteoporosis Patient Disposition: Home, Self-Care Instructions: Osteoporosis (ED), Chronic Pain (ED) Additional Instructions: Your CT scan did not show any acute findings. You do have chronic compression deformities. Take dexamethasone twice daily for 3 days Use cyclobenzaprine as needed for muscle spasms Take tramadol for severe breakthrough pain that is not relieved with Tylenol This may make you sleepy, did not drink alcohol or drive after taking it Follow-up with your primary doctor Prescriptions: New dexamethasone 4 mg tablet 4 mg PO BID Qty: 6 0RF cyclobenzaprine 10 mg tablet 10 mg PO TID PRN (Reason: muscle spasm) Qty: 15 0RF tramadol 50 mg tablet 50 mg PO TID PRN (Reason: pain) Qty: 12 0RF No Action omeprazole 20 mg tablet,delayed release (DR/EC) 20 mg PO BID Qty: 180 0RF sucralfate [Carafate] 100 mg/mL suspension 20 ml PO QNOON Qty: 1000 11RF Linzess 145 mcg capsule 145 mcg PO QAM Qty: 90 2RF Tymlos 80 mcg (3,120 mcg/1.56 mL) pen injector 80 mcg subcut DAILY Qty: 1.56 11RF Rx Instructions: inject into abdomen; do not inject within 2 inches of belly button/navel; rotate sites Eliquis 5 mg tablet 5 mg PO BID Qty: 60 0RF sotalol 80 mg Tablet 80 mg PO BID Qty: 80 0RF quetiapine 300 mg tablet 300 mg PO BEDTIME simvastatin 20 mg tablet 20 mg PO QPM lidocaine 5 % Adhesive Patch,Medicated 1 patch TOPICAL DAILY Rx Instructions: leave on most painful area for up to 12 hrs psyllium husk 3 gram/3 gram Powder 5.12 g PO DAILY naloxone 4 mg/actuation spray,non-aerosol 1 spray intranasal DIRECTED albuterol sulfate [Ventolin HFA] 90 mcg/actuation HFA aerosol inhaler 2 puff INHALATION Q4-6H PRN (Reason: wheezing) metoclopramide HCl 10 mg tablet 10 mg PO QIDACHS famotidine 40 mg tablet 40 mg PO BEDTIME PRN (Reason: heartburn) latanoprost 0.005 % drops 1 drp ophthalmic (eye) BEDTIME Trelegy Ellipta 100-62.5-25 mcg blister with device 1 inh inhalation DAILY 30 Days Qty: 60 11RF tizanidine 2 mg tablet 2 mg PO BID PRN (Reason: muscle spasm) trazodone 100 mg tablet 200 mg PO BEDTIME PRN Referrals: [facility] [Provider Group] Rigoberto Madrigal MD [Primary Care Provider] - Juan Manuel Wilder MD, PhD [Physician] - Interventions: ED Discharge Assessment Last Done: 10/16/23 23:32 Discharge Date/Time: 10/16/23 23:33 Print Language: Bulgarian
[2023-10-16 15:49] VITALS: BP 123/87; PULSE 81; RESP 18; TEMP 36.8; O2SAT 94; BMI 28.6
--- OUTSIDE RECORDS SUMMARY | 2023-10-16 17:25 | XMS_ITS | Continuity of Care Document ---
Author Organization [facility] ter Address [address] [place] [id number] Care Team Providers Care Travel [employer] Name Role Phone Rhoan BATRES, Rigoberto Diaz Primary Care Physi mayco Encounter [facility] Date(s): 12/06/22 - 12/08/[address] [id number]- Encounter Diagnosis Pneumonia(Final) - 12/05/22 Hypotension(Final) - 12/05/22 Discharge Disposition: A-Transfer SNF Attending Physician: Corky Guevara DO Admitting Physician: Lisa Harvey MD Referring Physician: Not on Staff, Referring MD Allergies, Adverse Reactions, Alerts No Known Allergies Medications Augmentin 500 Tablet 1, tablet, By Mouth, 3 times a day, Maintenance, for 1 more day (3 more doses), 12/08/22 10:38:00 EDT Start Date: 12/08/22 Status: Ordered azithromycin 250 mg oral tablet = 250 mg, By Mouth, Daily, for 1 more day (1 more dose), 0 Refills, Maintenance, 12/08/22 10:38:00 EDT, Tablet, Partial fill upon patient request if the prescription is for a schedule II opioid drug. Start Date: 12/08/22 Status: Ordered dexlansoprazole 60 mg oral delayed release capsule TAKE 1 CAPSULE BY MOUTH DAILY Start Date: 12/05/22 Status: Ordered Eliquis 5 mg oral tablet 1 tablet = 5 mg, By Mouth, 2 times a day, # 60 tablet, 5 Refills, Maintenance, 12/05/22 14:07:00 EDT, Tablet, Partial fill upon patient request if the prescription is for a schedule II opioid drug. Start Date: 12/05/22 Status: Ordered Linzess 145 mcg oral capsule TAKE 1 CAPSULE BY MOUTH DAILY Start Date: 12/05/22 Status: Ordered metoclopramide 10 mg oral tablet TAKE 1 TABLET BY MOUTH FOUR TIMES DAILY BEFORE MEALS AND BEFORE BEDTIME Start Date: 12/05/22 Status: Ordered QUEtiapine 300 mg oral tablet 1 tablet = 300 mg, By Mouth, Daily at bedtime, # 30 tablet, 0 Refills, Maintenance, 04/12/19 11:49:26 EDT, Tablet Start Date: 04/12/19 Status: Ordered simvastatin 20 mg oral tablet 20 mg, 1, tablet, By Mouth, Daily at bedtime, # 30 tablet, Refills 0, Maintenance, 04/12/19 11:48:03 EDT Start Date: 04/12/19 Status: Ordered sotalol 80 mg oral tablet TAKE 1 TABLET BY MOUTH TWICE DAILY Start Date: 12/05/22 Status: Ordered sotalol 80 mg oral tablet 80 mg, Tablet, By Mouth, 12/08/22 9:00:00 EDT Start Date: 12/08/22 Stop Date: 12/08/22 Status: Completed traMADol 50 mg oral tablet TAKE 1 TABLET BY MOUTH EVERY 8 HOURS FOR 10 DAYS NEEDED FOR PAIN Start Date: 12/05/22 Status: Ordered traMADol 50 mg oral tablet 50 mg, Tablet, By Mouth, Every 8 hours, PRN for Pain , Severe, Routine, 12/05/22 14:42:00 EDT Start Date: 12/05/22 Stop Date: 12/09/22 Status: Discontinued traZODone 100 mg oral tablet 100 mg, 1, tablet, By Mouth, Daily at bedtime, # 180 tablet, Refills 0, Maintenance, 04/12/19 11:48:40 EDT Start Date: 04/12/19 Status: Ordered Trelegy Ellipta 200 mcg-62.5 mcg-25 mcg/inh inhalation powder 1 puffs, Inhalation, Daily, at the same time every day, 0 Refills, Maintenance, 12/05/22 14:07:00 EDT, Powder, Partial fill upon patient request if the prescription is for a schedule II opioid drug. Start Date: 12/05/22 Status: Ordered Ventolin HFA 108 mcg/inh inhalation aerosol with adapter INHALE 2 PUFFS BY MOUTH EVERY 6 HOURS NEEDED FOR WHEEZING Start Date: 12/05/22 Status: Ordered Results Orders for Microbiology Reports Name Date Blood Culture 12/05/22 Blood Culture #2 12/05/22 Microbiology Reports TEST:Blood Culture STATUS:Unauthenticated BODY SITE: SOURCE:Blood COLLECTED DATE/TIME:12/05/22 3:03 AM Blood Culture SPECIMEN DESCRIPTION : BLOOD no site SPECIAL REQUESTS : NONE CULTURE : NO GROWTH 3 DAYS REPORT STATUS : PRELIMINARY REPORT TEST:Blood Culture, Second Order STATUS:Unauthenticated BODY SITE: SOURCE:Blood COLLECTED DATE/TIME:12/05/22 3:02 AM Blood Culture, Second Order SPECIMEN DESCRIPTION : BLOOD no site SPECIAL REQUESTS : NONE CULTURE : NO GROWTH 3 DAYS REPORT STATUS : PRELIMINARY REPORT Radiology Reports * Exam Date Time Procedure Performing Provider Status 12/06/22 1:[address] Chest W/ Contrast Marianela Majano ; Auth (Verified) Notes: (CT Chest W/ Contrast) Reason For Exam: Infection RESULT: CT Chest W/ Contrast CT Chest W/ Contrast INDICATION: Reason: Infection; Clinical Question(s): Abscess Empyema TECHNIQUE: Helical CT scan of the chest with IV contrast, formatted in 3 planes. 75 cc of [id number] was administered intravenously. Weight-based protocol was performed using automatic exposure control. CTDIvol Body: 6.20 mGy, DLP Body: 227 mGy*cm. COMPARISON: Radiographs from 12/05/2022. No prior chest CT is available for comparison. FINDINGS: Media Associate view findings, lines and tubes: None. Trachea and airways: Patent without evidence of tracheal or endobronchial lesion. Lungs and pleura: Severe centrilobular emphysema. Linear scarring in the right upper lobe. Dependent airspace opacity in the right lower lobe, likely atelectasis. Subtle patchy tree-in-bud and groundglass opacity in the right middle lobe, right lower lobe, and posterior right upper lobe. No effusion or pneumothorax. Mediastinum and luis alfredo: No mass or hematoma. No mediastinal or hilar lymphadenopathy. No esophageal abnormality. Heart: Heart is normal in size. No pericardial effusion. Mild coronary artery calcification. Aorta: No aortic aneurysm. Pulmonary arteries: Normal caliber. No evidence of pulmonary embolism on this study performed without angiographic technique. Chest wall soft tissues: No acute abnormality. Diaphragm: Intact. Upper abdomen: No significant abnormality. Bones: Chronic appearing right distal clavicle fracture. Prior vertebral body augmentation at T7 and T9. Age indeterminate partially visualized moderate L1 compression fracture. IMPRESSION: 1. Patchy tree-in-bud and groundglass opacity in the posterior right lung, likely infectious or inflammatory. 2. No evidence of abscess or empyema. 3. Severe emphysema. 4. Age-indeterminate L1 compression fracture. WSN: [id number] Ordering Physician: Vlad Martínez Dictated By: Jamie Hyde MD Dictated Date/Time: 12/06/22 1:51 pm Reviewed By: Jamie Hyde MD Signed By: Jamie Hyde MD Signed Date/Time: 12/06/22 1:51 pm Transcribed By: EUGENE Transcribed Date/Time: 12/06/22 1:47 pm * Exam Date Time Procedure Performing Provider Status 12/05/22 5:11 AM Chest 2 Views Frontal and Lat Natali Stroud; Auth (Verified) Notes: (Chest 2 Views Frontal and Lat) Reason For Exam: Cough RESULT: Chest 2 Views Frontal and Lat Chest 2 Views Frontal and Lat Hx of Present Illness: coming from [facility] in [place], they stated he was hypotensive and desating on RA, he had chest xray which showed pneumonia. hx of COPD; Reason: Cough; Clinical Question(s): Pneumonia COMPARISON: None. FINDINGS: LINES AND TUBES: None. LUNGS AND PLEURA: Low lung volumes. Ill-defined airspace opacities within the right lower lobe may represent pneumonia. No pleural effusion. No pneumothorax. HEART, MEDIASTINUM AND LUIS ALFREDO: Heart is normal in size. Normal mediastinal and hilar contour. BONES AND SOFT TISSUES: No acute abnormality. Cement vertebroplasty within the thoracic spine. Old right clavicle fracture or clavicular osteolysis. Probable small paraesophageal hernia. IMPRESSION: Ill-defined airspace opacities within the right lower lobe may represent pneumonia. WSN: [id number] Ordering Physician: Kalli Alex Dictated By: Socrates Lovett MD Dictated Date/Time: 12/05/22 11:06 a Reviewed By: Socrates Lovett MD Signed By: Socrates Lovett MD Signed Date/Time: 12/05/22 11:06 am Transcribed By: EUGENE Transcribed Date/Time: 12/05/22 11:04 am Vital Signs Most recent to oldest [Reference Range]: 1 2 3 Height 180.34 cm (12/08/22 7:48 AM) 180.34 cm (12/07/22 7:46 AM) 180.34 cm (12/06/22 7:40 PM) Weight 85.8 kg (12/05/22 1:36 PM) Oxygen Saturation [94-100 %] 95 % (12/08/22 7:48 AM) 94 % (12/08/22 7:00 AM) 92 % *L* (12/07/22 8:00 PM) Pulse Rate [55-90 bpm] 51 bpm *L* (12/08/22 8:55 AM) 51 bpm *L* (12/08/22 7:48 AM) 88 bpm (12/08/22 7:00 AM) Body Mass Index [18.5-24.99 kg/m2] 26.38 kg/m2 *H* (12/05/22 1:36 PM) Blood Pressure [90-138/55-84 mm Hg] 98/70mm Hg (12/08/22 8:55 AM) 98/70mm Hg (12/08/22 7:48 AM) 100/78mm Hg (12/08/22 7:00 AM) Respiratory Rate [16-30 br/min] 18 br/min (12/08/22 7:48 AM) 22 br/min (12/07/22 8:00 PM) 18 br/min (12/07/22 7:57 PM) Temperature [96.8-100.4 DegF] 97.7 DegF (12/08/22 7:48 AM) 97.8 DegF (12/08/22 7:00 AM) 97.5 DegF (12/07/22 8:00 PM) Liters per Minute 2 L/min (12/06/22 7:00 AM) 2 L/min (12/05/22 8:03 PM) 2 L/min (12/05/22 1:44 PM) Mode of Delivery (Oxygen) Room air (12/08/22 7:48 AM) Room air (12/08/22 7:00 AM) Room air (12/07/22 8:00 PM) Blood pressure sites Arm, right (12/08/22 7:48 AM) Arm, right (12/08/22 7:00 AM) Arm, left (12/07/22 8:00 PM) Temperature Route Oral (12/08/22 7:48 AM) Oral (12/08/22 7:00 AM) Oral (12/07/22 8:00 PM) Dry Weight 85.8 kg (12/05/22 1:36 PM) Admission evaluation note * Akira Hood: PERFORM, MODIFY Event Display: Admission Note Authored Date: [id number] Patient: ??ОЛЕГ JIMENEZ ? Age:??67 Years?Sex:??Male?:??1955?? Chief Complaint/Reason for Consultation Shortness of breath History of Present Illness 67-year-old male??with history of atrial fibrillation on Eliquis,??COPD??not on home O2,??recent vertebral fracture,??gastroparesis,??hypertension, hyperlipidemia,??anxiety, insomnia, GERD??presents with shortness of breath.?? Patient is Yakut speaking. ??History obtained with court interpreter.?? Patient is a moderately reliable historian.?? He tells me he had??a vertebral fracture??a few weeks ago??and was seen at [facility].?? He was discharged??to a rehab.?? Last night??staff noticed he was short of breath??so he was sent to the emergency department.?? He has been??coughing??for2 days.?? He was mildly hypotensive for EMS systolic 88,??he was fluid responsive.?? Here he has noleukocytosis or fever. ??Chest x-ray revealed right lower lobe pneumonia.?? He was never hypoxic. ??He was placed on O2??for comfort and is saturating??well on 2 L.?? EKG nonischemic QTc 460.?? He was started on??ceftriaxone and azithromycin??for community-acquired pneumonia and admitted for further management. denies fever, CP, SOB, abdominal pain, bowel or bladder complaints. Review of Systems CONSTITUTIONAL: ??Denies any fever, chills, changes to weight or fatigue. EYES: Denies any changes to vision, burning or diplopia. HEENT: Denies any LEWIS, nasal d/c, nose bleeds, changes to voice, vertigo, photophobia, hearing changes or dental problems. CV: Denies any CP, orthopnea, PND, edema, palpitations. PULM: See HPI ABD: Denies any abdominal pain, N/V/D, heartburn, PRBPR, melena, or changes to bowel habits. : Denies any changes to frequency. ??Denies dysuria, urgency, straining, hematuria, incontinence.? MS: Denies any joint or muscle pain, falls or changes to gait. NEURO: Denies any weakness, numbness, changes to speech confusion or memory loss. SKIN: Denies any rashes or lesions. ?? PSYCH: Denies any depression or anxiety. SIGECAPS negative. FUNCTIONAL: At baseline the patient is able to??ambulate??independently. ??He is now doing well with a walker Objective Vital Signs?? Temperature: 97.9 DegF (12/05/22 13:44:00) Temperature Route: Oral (12/05/22 13:44:00) Pulse Rate: 74 bpm (12/05/22 13:44:00) Respiratory Rate: 17 br/min (12/05/22 13:44:00) Systolic Blood Pressure: 119 mm Hg (12/05/22 13:44:00) Diastolic Blood Pressure:??91 mm Hg??High (12/05/22 13:44:00) Blood pressure sites: Arm, right (12/05/22 13:44:00) Mean Arterial Pressure: 100 mm Hg (12/05/22 13:44:00) Pulse Pressure: 28 mm Hg (12/05/22 13:44:00) Oxygen Saturation: 100 % (12/05/22 13:44:00) Liters per Minute: 2 L/min (12/05/22 13:44:00) Mode of Delivery (Oxygen): Nasal cannula (12/05/22 13:44:00) Early Warning Score: 2 (12/05/22 13:45:42) ? Physical Exam General:??67 year old male??lies in bed comfortably in no acute distress HEENT: NCAT, moist oral mucosa, good dentition, oropharynx without erythema Card: RRR no murmur, non displaced PMI, no JVD, 2+ radial pulse B/L Resp:??Scattered rhonchi Abdomen: soft and non tender, bowel sounds WNL Extremities: no pitted edema B/L lower extremities Skin: Without rashes or lesions, good turgor Hem/Lymph: without bruising or lymphadenopathy Psych: appropriate affect Neuro: A&OX3, no focal motor deficits Assessment/Plan 67-year-old male??with history of atrial fibrillation on Eliquis,??COPD??not on home O2,??recent vertebral fracture,??gastroparesis,??hypertension, hyperlipidemia,??anxiety, insomnia, GERD??presents with shortness of breath. ?? Cough (R05.9):??. Shortness of breath (R06.02):??. Pneumonia (J18.9):?? Chest x-ray concerning for??right lower lobe pneumonia.??We will continue treatment for community-acquired pneumonia ?? Plan Continue ceftriaxone and azithromycin Incentive spirometry O2 for comfort Cough syrup ordered ?? Insomnia (G47.00):??. Anxiety (F41.9):??Continue??trazodone and Seroquel ?? Atrial fibrillation (I48.91):??Continue Eliquis and sotalol ?? COPD mixed type (J44.9):??Breo and ProAir??while inpatient ?? Gastroparesis (K31.84):??Continue??Reglan ?? Hyperlipidemia (E78.5):??Continue statin ?? Hypotension (I95.9):??. Hypertension (I10):??Holding losartan??for soft BPs ?? Recent vertebral fracture: seen at [facility]. Continue tramadol as needed for pain.?? Will order PT consult.?? Will likely??need to go back to rehab??when ready ?? VTE Prophylaxis:??On Eliquis ?VTE Prophylaxis Assessment:??VTE Prophylaxis Ordered ?? Code Status:??Full code, discussed at bedside ?Order Code Status:??Code Status Ordered ?? Ongoing Medical Necessity:??IV antibiotics ?? Discharge Planning:??Likely back to SNF??in the next 2 or 3 days ?? Total time spent on chart review,??medication reconciliation, direct patient care, documentation: 76 minutes ?? Histories Allergies Allergies ?(Active and Proposed Allergies Only) NKA? (Severity: Unknown severity, Onset: Unknown) ? Past Medical History/Problem List atrial fibrillation on Eliquis,??COPD??not on home O2,??recent vertebral fracture,??gastroparesis,??hypertension, hyperlipidemia,??anxiety, insomnia, GERD? Past Surgical History Appendectomy ? Social History Quit smoking 1 year ago ? Family History Mom had a heart attack ? Medications Home Medications Albuterol (Ventolin HFA 108 mcg/inh inhalation aerosol with adapter)?INHALE 2 PUFFS BY MOUTH EVERY 6 HOURS NEEDED FOR WHEEZING apixaban (Eliquis 5 mg oral tablet)?1?tab(s)?5?Milligram?By Mouth?2 times a day dexlansoprazole (dexlansoprazole 60 mg oral delayed release capsule)?TAKE 1 CAPSULE BY MOUTH DAILY fluticasone/umeclidinium/vilanterol (Trelegy Ellipta 200 mcg-62.5 mcg-25 mcg/inh inhalation powder)?1?puff(s)?Inhalation?Daily?at the same time every day linaclotide (Linzess 145 mcg oral capsule)?TAKE 1 CAPSULE BY MOUTH DAILY Metoclopramide (metoclopramide 10 mg oral tablet)?TAKE 1 TABLET BY MOUTH FOUR TIMES DAILY BEFOREMEALS AND BEFORE BEDTIME Quetiapine (QUEtiapine 300 mg oral tablet)?1?tab(s)?300?Milligram?By Mouth?Daily at bedtime Simvastatin (simvastatin 20 mg oral tablet)?20?Milligram?1?tablet?By Mouth?Daily at bedtime Sotalol (sotalol 80 mg oral tablet)?TAKE 1 TABLET BY MOUTH TWICE DAILY Tramadol (traMADol 50 mg oral tablet)?TAKE 1 TABLET BY MOUTH EVERY 8 HOURS FOR 10 DAYS NEEDEDFOR PAIN Trazodone (traZODone 100 mg oral tablet)?100?Milligram?1?tablet?By Mouth?Daily atbedtime Trazodone (traZODone 100 mg oral tablet)?TAKE 1 TO 2 TABLETS BY MOUTH AT BEDTIME NEEDED Valsartan (valsartan 40 mg oral tablet)?TAKE 1/2 TABLET BY MOUTH TWICE DAILY ? Results Recent Labs BLOOD COUNT & DIFF WBC 7.7 k/mm3 ()?? 12/05/2022 03:03 RBC 3.88 m/mm3 (Low)?? 12/05/2022 03:03 Hgb 10.6 Gm/dL (Low)?? 12/05/2022 03:03 Hct 33.5 % (Low)?? 12/05/2022 03:03 MCV 86.3 femtoliters ()?? 12/05/2022 03:03 MCH 27.3 pg ()?? 12/05/2022 03:03 MCHC 31.6 g/dL (Low)?? 12/05/2022 03:03 Platelet Count 217 k/mm3 ()?? 12/05/2022 03:03 RDW-SD 49.1 femtoliters (High)?? 12/05/2022 03:03 MPV 9.1 femtoliters (Low)?? 12/05/2022 03:03 Nucleated RBC (Automated) 0.0 #/100 WBC'S ()?? 12/05/2022 03:03 Abs. NRBC 0.0 k/mm3 ()?? 12/05/2022 03:03 Abs. Neut 5.4 k/mm3 ()?? 12/05/2022 03:03 Abs. Lymph 1.8 k/mm3 ()?? 12/05/2022 03:03 Abs. Uinta 0.4 k/mm3 ()?? 12/05/2022 03:03 Abs. Eo 0.0 k/mm3 ()?? 12/05/2022 03:03 Abs. Baso 0.0 k/mm3 ()?? 12/05/2022 03:03 Neut % 70.1 % ()?? 12/05/2022 03:03 Lymph % 23.1 % ()?? 12/05/2022 03:03 Uinta % 5.5 % ()?? 12/05/2022 03:03 Eos % 0.5 % ()?? 12/05/2022 03:03 Baso % 0.1 % ()?? 12/05/2022 03:03 Imm Gran 0.7 % ()?? 12/05/2022 03:03 Abs. Imm Gran 0.1 k/mm3 ()?? 12/05/2022 03:03 ?? CARDIAC Nt-Probnp 170 pg/mL (High)?? 12/05/2022 03:03 High Sensitivity Troponin (HSTnT) 12 ng/L ()?? 12/05/2022 06:44 ?? CHEM GENERAL Sodium 137 mmol/L ()?? 12/05/2022 03:03 Potassium 4.0 mmol/L ()?? 12/05/2022 03:03 Chloride 103 mmol/L ()?? 12/05/2022 03:03 Bicarbonate Level 24 mmol/L ()?? 12/05/2022 03:03 Anion Gap 10 ()?? 12/05/2022 03:03 Glucose Level 97 mg/dL ()?? 12/05/2022 03:03 BUN 27 mg/dL (High)?? 12/05/2022 03:03 Creatinine-Blood 1.0 mg/dL ()?? 12/05/2022 03:03 Estimated GFR Creatinine 82 ML/MIN/1.73 M2 ()?? 12/05/2022 03:03 Calcium 8.0 mg/dL (Low)?? 12/05/2022 03:03 Protein, Total 5.3 Gm/dL (Low)?? 12/05/2022 03:03 Albumin 3.2 Gm/dL (Low)?? 12/05/2022 03:03 AG Ratio 1.5 ()?? 12/05/2022 03:03 Alkaline Phosphatase 83 units/L ()?? 12/05/2022 03:03 AST (SGOT) 9 units/L ()?? 12/05/2022 03:03 ALT (SGPT) 15 units/L ()?? 12/05/2022 03:03 Bilirubin, Total 0.5 mg/dL ()?? 12/05/2022 03:03 Lactate 0.7 mmol/L ()?? 12/05/2022 06:44 ?? HEME OTHER Hold Blue Top SPECIMEN DISCARDED AFTER 4 HOURS. ()?? 12/05/2022 03:03 ?? VIROLOGY COVID-19 by RT-PCR NEGATIVE ()?? 12/05/2022 03:30 ?RESULT: Chest 2 Views Frontal and Lat Chest 2 Views Frontal and Lat? Hx of Present Illness: coming from [facility] in [place], they stated he was hypotensive and desating on RA, he had chest xray which showed pneumonia. hx of COPD; Reason: Cough; Clinical Question(s): Pneumonia ?? COMPARISON: None. ?? FINDINGS: ?? LINES AND TUBES:?? None. ?? LUNGS AND PLEURA: Low lung volumes. Ill-defined airspace opacities within the right lower lobe may represent pneumonia.?? No pleural effusion.?? No pneumothorax. ?? HEART, MEDIASTINUM AND LUIS ALFREDO:?? Heart is normal in size. Normal mediastinal and hilar contour. ?? BONES AND SOFT TISSUES:?? No acute abnormality. Cement vertebroplasty within the thoracic spine. Old right clavicle fracture or clavicular osteolysis. Probable small paraesophageal hernia. ?? IMPRESSION: ?? Ill-defined airspace opacities within the right lower lobe may represent pneumonia. Hospital Progress note * Abbie Jacob RN: PERFORM, SIGN, VERIFY Event Display: Progress Note Hospital Authored Date: Patient: ОЛЕГ JIMENEZ Age: 67 years Sex: Male : 1955 Associated Diagnoses: None Author: Abbie Jacob RN Findings Problem Related to Alteration in Respiratory Function (new) : Alteration in Respiratory Function/new 12/08/2022 13:00 EDT Alteration in Resp Status Related to Pneumonia Goals & Outcomes, Respiratory Pt will maintain/resume baseline physical assessment, Pt will notdevelop complications r/t mechanical ventilation, Pt will maintain adequate nutritional intake, Pt will maintain/resume normal fluid/electrolyte balance, Pt will not develop complications r/t immobility Interventions, Respiratory Assess/monitor tolerance to IV infusions; verify rate/dose, Assess for and report S&S of respiratory distress, Position for comfort & optimal oxygenation, Teach theproper use of inhalers Goals/Interventions, Respiratory Yes Respiratory, Problem Start 12/05/2022 14:58 Reviewed Plan with, Respiratory Patient, Family/caregiver not available Patient Progression, Respiratory Patient progressing according to plan . Nursing Data Vital Signs : VITAL SIGNS SECTION 12/08/2022 7:48 EDT Temperature 97.7 DegF Temperature Route Oral Pulse Rate 51 bpm L Respiratory Rate 18 br/min Systolic Blood Pressure 98 mm Hg Diastolic Blood Pressure 70 mm Hg Blood pressure sites Arm, right Mean Arterial Pressure 79 mm Hg Pulse Pressure 28 mm Hg Oxygen Saturation 95 % Mode of Delivery (Oxygen) Room air . Narrative/Incidental Patient alert and oriented x 3, mostly Yakut speaking, able to make needs known. Reports 8/10 pain in his right lower back, medicated with Tylenol and Tramadol as ordered with positive effect. Patient with clear/dim. LS, using scheduled inhaler in am as ordered. PO antibiotic taken as ordered. Ambulating to bathroom with walker and standby assist. Reports pain goes from an 8 up to a 10 when he ambulates. Patient pending discharge today at 1500.. Discharge Information Case Management Discharge Plan : Case Management Discharge Plan Data 12/08/2022 12:06 EDT Discharge Level of Care at Discharge retirement facility Discharge Nursing Homes/Rehab Facilities [facility] Discharge Transportation Arranged [facility] [address] [place] [address] Discharge Arranged Transport Date/Time 12/08/2022 15:00 Mode of Transportation Arranged Ambulance 12/05/2022 14:08 EDT Discharge Nursing Homes/Rehab Facilities [facility] * Cecil KATZ, Abbie: PERFORM, SIGN, VERIFY Event Display: Progress Note Hospital Authored Date: [id number] Patient: ОЛЕГ JIMENEZ Age: 67 years Sex: Male : 1955 Associated Diagnoses: None Author: Cecil KATZ, Abbie Elizabeth Problem Related to Alteration in Respiratory Function (new) : Alteration in Respiratory Function/new 12/07/2022 18:00 EDT Alteration in Resp Status Related to Pneumonia Goals & Outcomes, Respiratory Pt will maintain/resume baseline physical assessment, Pt will notdevelop complications r/t mechanical ventilation, Pt will maintain adequate nutritional intake, Pt will maintain/resume normal fluid/electrolyte balance, Pt will not develop complications r/t immobility Interventions, Respiratory Assess for and report S&S of respiratory distress, Position for comfort & optimal oxygenation, Monitor sputum color & consistency. Report changes to MD, Teach the proper use of inhalers BH Goals/Interventions, Respiratory Yes Respiratory, Problem Start 12/05/2022 14:58 Reviewed Plan with, Respiratory Patient, Family/caregiver not available Patient Progression, Respiratory Patient progressing according to plan . Nursing Data Vital Signs : VITAL SIGNS SECTION 12/07/2022 7:46 EDT Temperature 97.4 DegF Temperature Route Oral Pulse Rate 84 bpm Respiratory Rate 17 br/min Systolic Blood Pressure 112 mm Hg Diastolic Blood Pressure 73 mm Hg Blood pressure sites Arm, right Mean Arterial Pressure 86 mm Hg Pulse Pressure 39 mm Hg Oxygen Saturation 94 % Mode of Delivery (Oxygen) Room air . Narrative/Incidental Patient alert and oriented throughout the day, mostly Yakut speaking, medicated for 8/10 pain with scheduled meds as well as Tramadol 50 mg q8 hours with positive effect. Patient ambulated with PT and walker in hallway with slow, slightly unsteady gait. Needs and call hollis in reach, safety maintained.. Discharge Information Case Management Discharge Plan : Case Management Discharge Plan Data 12/05/2022 14:08 EDT Discharge Nursing Homes/Rehab Facilities [facility] * Pinky BATRES, Tiffanie F: PERFORM, MODIFY Event Display: Progress Note Hospital Authored Date: Patient: ??JIMENEZ, ОЛЕГ ? Age:??67 Years?Sex:??Male?:??1955?? 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 Being treated for pneumonia, can be changed to Augmentin plus azithromycin p.o. on discharge. Has history of severe??emphysema.?? Reports??3 pneumonia episodes in the last 6 months Review of Systems Constitutional,??eyes, skin, head/neck,??ENMT, respiratory, cardiac, gastrointestinal, genitourinary, endocrine, musculoskeletal,??neurologic, psychiatric, immunologic??systems reviewed and negative??except as described above. Objective Vital Signs?? Temperature: 97.4 DegF (12/07/22 07:46:00) Temperature Route: Oral (12/07/22 07:46:00) Pulse Rate: 84 bpm (12/07/22 10:02:00) Respiratory Rate: 17 br/min (12/07/22 07:46:00) Systolic Blood Pressure: 112 mm Hg (12/07/22 10:02:00) Diastolic Blood Pressure: 73 mm Hg (12/07/22 10:02:00) Blood pressure sites: Arm, right (12/07/22 07:46:00) Mean Arterial Pressure: 86 mm Hg (12/07/22 07:46:00) Pulse Pressure: 39 mm Hg (12/07/22 07:46:00) Oxygen Saturation: 94 % (12/07/22 07:46:00) Mode of Delivery (Oxygen): Room air (12/07/22 07:46:00) Early Warning Score: 5 (12/07/22 10:06:13) ? Intake/Output? 12/06 15:24 12/07 07:00 12/06 07:00 12/05 07:00 12/04 07:00 ?? 12/07 14:52 12/07 14:52 12/07 06:59 12/06 06:59 12/05 06:59 Intake ? 1520 ?0 ? 1280 ?240 ?0 Output ? 2475 ?650 ?650 ? 1175 ?0 Net Total ? -955 ? -650 ?630 ? -935 ?0 ? Urine Count ?7 ?0 ?6 ?1 ?0 ? Physical Exam General:??A & O X 3, not in acute distress.?? Eye:??PERRLA, no redness or discharge Head and neck:??Normocephalic, atraumatic, moist mucous membranes Cardiac:??S1, S2, no murmur or gallop. Respiratory:??rt lower lobe??rhonchi Abdomen: Soft, non tender, non distended, normoactive bowel sounds Neurology:??A & Ox3, cranial nerves grossly intact, moving all extremities spontaneously?? Psychiatric:??Cooperative, appropriate mood and affect.?? Skin:??No rash. Warm to touch Extremities:??no pedal edema, no gross deformities, pedal pulses palpable ? _ Inpatient Medications Medications (21) Active SCHEDULED: (10) Apixaban 5 mg Tablet (Eliquis) ??5 mg, By Mouth, 2 times a day Azithromycin 500 mg Tablet (Azithromycin Tablet) ??250 mg, By Mouth, Daily Breo Ellipta 200 mcg / 25 mcg Inhaler (Breo Ellipta 200 mcg-25 mcg Inhaler) ??1 puffs, Inhalation, Daily Ceftriaxone 1 Gm Inj (Ceftriaxone Inj) ??1 Gm, IVPB, Every 24 hours Metoclopramide 10 mg Tablet (metoclopramide 10 mg oral tablet) ??10 mg, By Mouth, 3 times a day with meals and bedtime NaCl 0.9% Flush 3ml (NaCL 0.9% Flush) ??3 mL, IV Push, Every 8 hours Pantoprazole 40 mg EC Tablet (pantoprazole 40 mg oral delayed release tablet) ??40 mg, By Mouth, Daily Quetiapine 100 mg Tablet (QUEtiapine 100 mg oral tablet) ??300 mg, By Mouth, Daily at bedtime Simvastatin 20 mg Tablet (simvastatin 20 mg oral tablet) ??20 mg, By Mouth, Daily at bedtime Sotalol 80 mg Tablet (sotalol 80 mg oral tablet) ??80 mg, By Mouth, 2 times a day CONTINUOUS: (0) PRN: (11) Acetaminophen 325 mg Tablet (Acetaminophen Tablet) ??650 mg, By Mouth, Every 4 hours Albuterol 90mcg/Inhalation Inhaler HFA (albuterol CFC free 90 mcg/inh inhalation aerosol) ??180 mcg2 puffs, Inhalation, Every 4 hours Dextromethorphan-Guaifenesin 20 mg-200 mg/10 mL Liqu UD (Robitussin DM Liquid) ??10 mL, By Mouth, Every 4 hours Melatonin 3 mg Tablet (Melatonin Tablet) ??3 mg, By Mouth, Daily at bedtime NaCl 0.9% Flush 3ml (NaCL 0.9% Flush) ??3 mL, IV Push, Every 8 hours Polyethylene Glycol 17 Gm Powder (MiraLax Powder) ??17 Gm 1 pack/packet, By Mouth, Daily Polyvinyl Alcohol 1.4% Opthalmic Solution/Artificial Tears (Artificial Tears 1.4%) ??2 drops, Eyes,Both, Every 4 hours Senna 8.6 mg / Docusate 50 mg tablet (Docusate/Senna Tablet) ??1 tablet, By Mouth, 2 times a day Simethicone 80 mg Chewable Tablet (Simethicone Tablet) ??80 mg, Chew, 3 times a day TraMADOL 50 mg Tablet (traMADol 50 mg oral tablet) ??50 mg, By Mouth, Every 8 hours Trazodone 50 mg Tablet (traZODone 50 mg oral tablet) ??150 mg, By Mouth, Daily at bedtime ? Results Recent Labs BLOOD COUNT & DIFF WBC 6.5 k/mm3 ()?? 12/07/2022 00:38 RBC 3.98 m/mm3 (Low)?? 12/07/2022 00:38 Hgb 10.7 Gm/dL (Low)?? 12/07/2022 00:38 Hct 34.1 % (Low)?? 12/07/2022 00:38 MCV 85.7 femtoliters ()?? 12/07/2022 00:38 MCH 26.9 pg (Low)?? 12/07/2022 00:38 MCHC 31.4 g/dL (Low)?? 12/07/2022 00:38 Platelet Count 230 k/mm3 ()?? 12/07/2022 00:38 RDW-SD 48.8 femtoliters (High)?? 12/07/2022 00:38 MPV 9.1 femtoliters (Low)?? 12/07/2022 00:38 Nucleated RBC (Automated) 0.0 #/100 WBC'S ()?? 12/07/2022 00:38 Abs. NRBC 0.0 k/mm3 ()?? 12/07/2022 00:38 ?? CHEM GENERAL Sodium 135 mmol/L ()?? 12/07/2022 00:38 Potassium 4.9 mmol/L ()?? 12/07/2022 00:38 Chloride 102 mmol/L ()?? 12/07/2022 00:38 Bicarbonate Level 24 mmol/L ()?? 12/07/2022 00:38 Anion Gap 9 ()?? 12/07/2022 00:38 Glucose Level 109 mg/dL (High)?? 12/07/2022 00:38 BUN 22 mg/dL ()?? 12/07/2022 00:38 Creatinine-Blood 0.8 mg/dL ()?? 12/07/2022 00:38 Estimated GFR Creatinine 97 ML/MIN/1.73 M2 ()?? 12/07/2022 00:38 Calcium 8.1 mg/dL (Low)?? 12/07/2022 00:38 ?? URINE OTHER Est Creatinine Clearance 94.13 mL/min ()?? 12/07/2022 01:46 ? Assessment/Plan 67-year-old Yakut-speaking male with past medical history of atrial fibrillation on Eliquis, severe emphysema, recent vertebral fracture, gastroparesis, hypertension, hyperlipidemia, anxiety, insomnia, GERD admitted for shortness of breath, being treated for pneumonia on ceftriaxone and azithromycin, can be transitioned to Augmentin and is Xander-micin p.o. on discharge, bed hold for rehab, contacted weekend case repairer, pending discharge. ?? Shortness of breath (R06.02): . Pneumonia (J18.9):?CXR:??Ill-defined airspace opacities within the right lower lobe may represent pneumonia.?CT: Patchy tree-in-bud and groundglass opacity in the posterior right lung, likely infectious or inflammatory.??No evidence of abscess or empyema. Severe emphysema. Age-indeterminate L1 compressionfracture. ??Admitted for dyspnea,??without leukocytosis, fever, elevated lactate,??hypoxia??however with??crackles??to the right lower lung base Plan: ??-Continue ceftriaxone (5 days)??and azithromycin (3 days) ??-Incentive spirometry ??-Wean off oxygen ??-Cough syrup ordered -Switch to p.o. Augmentin and azithromycin on discharge to complete 5-day course -Resume Trelegy on discharge,??Breo??while in the hospital ? Insomnia (G47.00): Anxiety (F41.9): Continue trazodone and Seroquel ? Atrial fibrillation (I48.91):??Continue Eliquis and sotalol ? COPD mixed type (J44.9):??Breo and ProAir while inpatient ? Gastroparesis (K31.84):??Continue Reglan ? Hyperlipidemia (E78.5):??Continue statin ? Hypotension (I95.9): Hypertension (I10):?? Holding losartan for soft BPs,??stable today ?? Recent vertebral fracture:??seen at [facility]. Continue tramadol as needed for pain.?? Return back to bed hold rehab,??weekend case management paged, please page again tomorrow ?? Quality Measures DVT PPx: Eliquis Code Status: Full Diet:??regular : ?? This note has been??written with the help of dictation software,??please excuse any errors. Patient case and plan discussed with Dr. angelique Vance MD, PGY3 Internal medicine Pager: [phone] ? * Nancie Benedict MD: PERFORM Event Display: Progress Note Hospital Authored Date: I have seen and evaluated the patient on the above day of service with a lower school spanish teacher??and discussed the case and management with the medical team as stated below. Initial PT reports said homewith services, however patient informed us he was actively getting rehab at a facility. Upon re-evalu and speakng with PT he would benefit to return to the rehab facility. Note * Abbie Mota RN: PERFORM Event Display: Discharge/Transfer Note Hospital Authored Date: Nursing Discharge Note Entered On: 12/08/2022 17:20 EDT Performed On: 12/08/2022 17:20 EDT by Abbie Mota RN Nursing Discharge Note 2 Discharge Time : 12/08/2022 17:20 EDT Discharge Level of Care at Discharge : retirement facility Discharge Nursing Homes/Rehab Facilities : [facility] Patient Left Unit Via : Ambulance Patient Accompanied Off Unit with : Ambulance/Chair Van Personnel Handover Given to Transport Personnel : Yes DC Instructions Provided & Signed by Pt : Yes Patient Understands D/C Instructions : Yes Patient Instructions Discharge Signed : Yes Did Pt have Specialty Bed or Wound Vac : No Abbie Mota RN - 12/08/2022 17:20 EDT * Corky Guevara DO: MODIFY Vlad Martínez MD: PERFORM, MODIFY Vlad Martínez MD: MODIFY Event Display: Discharge/Transfer Note Hospital Authored Date: Patient: ??JIMENEZ, ОЛЕГ ? Age:??67 Years?Sex:??Male?:??1955?? Patient Information Discharge Location: A Primary Care Physician: Rigoberto Madrigal MD Admit Date/Time: 12/06/22 15:24 Discharge Date:??12/08/2022 10:56 Discharge Disposition Discharge Disposition: [facility] Facility/Rehab Discharge Diagnosis Anxiety (F41.9) Atrial fibrillation (I48.91) COPD mixed type (J44.9) Cough (R05.9) Gastroparesis (K31.84) Hyperlipidemia (E78.5) Hypertension (I10) Hypotension (I95.9) Insomnia (G47.00) Pneumonia (J18.9) Shortness of breath (R06.02) _ Discharge Medications Albuterol (Ventolin HFA 108 mcg/inh inhalation aerosol with adapter)?INHALE 2 PUFFS BY MOUTH EVERY 6 HOURS NEEDED FOR WHEEZING Amoxicillin-Clavulanate (Augmentin 500 Tablet)?1?tablet?By Mouth?3 times a day?for 1more day (3 more doses) apixaban (Eliquis 5 mg oral tablet)?1?tab(s)?5?Milligram?By Mouth?2 times a day Azithromycin (azithromycin 250 mg oral tablet)?250?Milligram?By Mouth?Daily?for 1 more day (1 more dose) dexlansoprazole (dexlansoprazole 60 mg oral delayed release capsule)?TAKE 1 CAPSULE BY MOUTH DAILY fluticasone/umeclidinium/vilanterol (Trelegy Ellipta 200 mcg-62.5 mcg-25 mcg/inh inhalation powder)?1?puff(s)?Inhalation?Daily?at the same time every day linaclotide (Linzess 145 mcg oral capsule)?TAKE 1 CAPSULE BY MOUTH DAILY Metoclopramide (metoclopramide 10 mg oral tablet)?TAKE 1 TABLET BY MOUTH FOUR TIMES DAILY BEFOREMEALS AND BEFORE BEDTIME Quetiapine (QUEtiapine 300 mg oral tablet)?1?tab(s)?300?Milligram?By Mouth?Daily at bedtime Simvastatin (simvastatin 20 mg oral tablet)?20?Milligram?1?tablet?By Mouth?Daily at bedtime Sotalol (sotalol 80 mg oral tablet)?TAKE 1 TABLET BY MOUTH TWICE DAILY Tramadol (traMADol 50 mg oral tablet)?TAKE 1 TABLET BY MOUTH EVERY 8 HOURS FOR 10 DAYS NEEDEDFOR PAIN Trazodone (traZODone 100 mg oral tablet)?100?Milligram?1?tablet?By Mouth?Daily atbedtime ?? 72 Hour Antibiotic History Active Antibiotics Calendar Day Last Administered First Administered Azithromycin??250 mg, By Mouth, Daily ?3 12/08/2022 08:55 12/06/2022 08:24 ?? Stopped Antibiotics Stop Date/Time Last Administered First Administered Ceftriaxone??1 Gm, 100 mL/hr, IVPB, Every 24 hours 12/08/2022 10:38 12/08/2022 03:11 12/06/2022 02:50 ?? Durable Medical Equipment Discharge recommendations: Home with services (12/06/22) Ambulatory devices needed: Walker (12/07/22) Medications Started Augmentin, azithromycin Medications Discontinued Valsartan Doses Changed None Allergies Allergies ?(Active and Proposed Allergies Only) NKA? (Severity: Unknown severity, Onset: Unknown) ?? PCP Follow-Up/Heads-Up Patient with history of COPD admitted for shortness of breath, found to have pneumonia.?? He received 4 doses of ceftriaxone and 4 doses of azithromycin during hospitalization, being discharged on??1more day of Augmentin and azithromycin.?? Please follow-up to ensure resolution of symptoms. Of note patient has a history of severe COPD, please follow-up??as clinically indicated to help reduce recurrences of pneumonia. Patient is on losartan at home, held due to softer blood pressures in the hospital.?? Please follow-up outpatient and restart??pressure medications if clinically indicated. Hospital Course Patient is a 67-year-old Yakut-speaking male with past medical history of atrial fibrillation on Eliquis, severe emphysema, recent vertebral fracture, gastroparesis, hypertension, hyperlipidemia, anxiety, insomnia, GERD admitted for shortness of breath,??treated for??pneumonia with ceftriaxone and azithromycin, who is now stable for discharge back to [facility] [place]. ?? Shortness of breath (R06.02): . Pneumonia (J18.9): COPD mixed type (J44.9): ?CXR: Ill-defined airspace opacities within the right lower lobe may represent pneumonia. ?CT: Patchy tree-in-bud and groundglass opacity in the posterior right lung, likely infectious or inflammatory. No evidence of abscess or empyema. Severe emphysema. Age-indeterminate L1 compression fracture. ?Admitted for dyspnea, without leukocytosis, fever, elevated lactate, hypoxia however with crackles to the right lower lung base ?? No growth on blood cultures ?? Weaned to room air on 12/07/2022,??maintaining oxygen saturation on room air Recommendations: ?-Switch to??Augmentin 500 mg??3 times a day??for 1 more day (to be given on 12/09/2022)??and??azithromycin to 50 mg once a day??for 1 more day??(to be given on 12/09/2022) ?-Resume Trelegy on discharge (was Breo while in the hospital), continue ProAir ? Insomnia (G47.00): Anxiety (F41.9): ??Continue trazodone and Seroquel ? Atrial fibrillation (I48.91):??Continue Eliquis and sotalol ? Gastroparesis (K31.84):??Continue Reglan ? Hyperlipidemia (E78.5):??Continue statin ? Hypotension (I95.9): Hypertension (I10): On valsartan at home, however patient had lower blood pressures during hospitalization in the 90s to 100s over 70s, will continue to hold??valsartan outpatient,??please follow-up with??PCP and titrate up as needed ? Recent vertebral fracture:??seen at [facility]. Continue tramadol as needed for pain.?Discharged back to rehab for further??strengthening and fall prevention prior to eventual discharge home. ?? Objective Measurements?? Height: 180.34 cm (12/08/22) Weight: 85.8 kg (12/05/22) Dry Weight: 85.8 kg (12/05/22) Body Mass Index:??26.38 kg/m2??High (12/05/22) ?? Vital Signs?? Temperature: 97.7 DegF (12/08/22 07:48:00) Temperature Route: Oral (12/08/22 07:48:00) Pulse Rate:??51 bpm??Low (12/08/22 08:55:00) Respiratory Rate: 18 br/min (12/08/22 07:48:00) Systolic Blood Pressure: 98 mm Hg (12/08/22 08:55:00) Diastolic Blood Pressure: 70 mm Hg (12/08/22 08:55:00) Blood pressure sites: Arm, right (12/08/22 07:48:00) Mean Arterial Pressure: 79 mm Hg (12/08/22 07:48:00) Pulse Pressure: 28 mm Hg (12/08/22 07:48:00) Oxygen Saturation: 95 % (12/08/22 07:48:00) Mode of Delivery (Oxygen): Room air (12/08/22 07:48:00) Early Warning Score: 6 (12/08/22 09:02:38) ?? Intake/Output? 12/06 15:24 12/08 07:00 12/07 07:00 12/06 07:00 12/05 07:00 ?? 12/08 10:56 12/08 10:56 12/08 06:59 12/07 06:59 12/06 06:59 Intake ? 2480 ?0 ?960 ? 1280 ?240 Output ? 4475 ?500 ? 2150 ?650 ? 1175 Net Total ?-1995 ? -500 ?-1190 ?630 ? -935 ? Urine Count ?7 ?0 ?0 ?6 ?1 . Physical Exam General: Well appearing. In no distress Head: NCAT. Scalp without any lesions. Eyes: Cobalt conjunctiva. Anicteric sclera. Ears: Bilateral pinnae without discharge or lesions. Nose:?? No discharge or congestion. Throat/Mouth: MMM. Oral mucosa was pink and without any lesions. Cardiovascular: Physiologic S1 and S2. No murmurs, rubs or gallops could be auscultated. Respiratory: End expiratory crackles heard to the right lower lung base. Abdominal: Positive bowel sounds in all four quadrants. No tenderness to palpation. No rebound or guarding. Vascular: Pulses are 2+ at radial, dorsalis pedis bilaterally. No edema or varicose veins. Neurologic: Mental Status is alert and oriented to person, place, time, situation. ?? Consultants None Pending Results None Patient Education Titles Treating Pneumonia?? Pneumonia (Adult)?? Mechanical Fall?? Fall Prevention?? Follow-Up Appointments Added Follow Up ?Time Frame ?Comments Rohan BATRES, Rigoberto Diaz Patient Instructions You are brought to the hospital because you are having shortness of breath at your rehab. ??Imagingin the hospital did show you had a pneumonia. ??You were given??IV and oral antibiotics.?? You are initially placed on oxygen, but this was able to be taken off.?? During??your hospitalization,??you also had chronic back pain due to the vertebral fracture.?This pain did improve with medication.?? By time of discharge, you do not have a fever, you are maintaining oxygen on room air,??and your lab work was stable. ??You are being discharged on??2 oral antibiotics called Augmentin which you will take 3 times a day??for 1 more day tomorrow and azithromycin which you will take 1 more time??tomorrow for total of 5 days of treatment for the pneumonia.?? Please follow-up closely with your primary care doctor. ??Please continue take your other home medications including your Trelegy and ProAir inhalers. If you develop any chest pain, shortness of breath, episodes of passing out, numbness or??tingling,dizziness, or any other new or concerning symptom please seek immediate medical attention. Results Discharge Labs BLOOD COUNT & DIFF WBC 6.5 k/mm3 ()?? 12/07/2022 00:38 RBC 3.98 m/mm3 (Low)?? 12/07/2022 00:38 Hgb 10.7 Gm/dL (Low)?? 12/07/2022 00:38 Hct 34.1 % (Low)?? 12/07/2022 00:38 MCV 85.7 femtoliters ()?? 12/07/2022 00:38 MCH 26.9 pg (Low)?? 12/07/2022 00:38 MCHC 31.4 g/dL (Low)?? 12/07/2022 00:38 Platelet Count 230 k/mm3 ()?? 12/07/2022 00:38 RDW-SD 48.8 femtoliters (High)?? 12/07/2022 00:38 MPV 9.1 femtoliters (Low)?? 12/07/2022 00:38 Nucleated RBC (Automated) 0.0 #/100 WBC'S ()?? 12/07/2022 00:38 Abs. NRBC 0.0 k/mm3 ()?? 12/07/2022 00:38 Abs. Neut 5.4 k/mm3 ()?? 12/05/2022 03:03 Abs. Lymph 1.8 k/mm3 ()?? 12/05/2022 03:03 Abs. Uinta 0.4 k/mm3 ()?? 12/05/2022 03:03 Abs. Eo 0.0 k/mm3 ()?? 12/05/2022 03:03 Abs. Baso 0.0 k/mm3 ()?? 12/05/2022 03:03 Neut % 70.1 % ()?? 12/05/2022 03:03 Lymph % 23.1 % ()?? 12/05/2022 03:03 Uinta % 5.5 % ()?? 12/05/2022 03:03 Eos % 0.5 % ()?? 12/05/2022 03:03 Baso % 0.1 % ()?? 12/05/2022 03:03 Imm Gran 0.7 % ()?? 12/05/2022 03:03 Abs. Imm Gran 0.1 k/mm3 ()?? 12/05/2022 03:03 ?? CARDIAC Nt-Probnp 170 pg/mL (High)?? 12/05/2022 03:03 High Sensitivity Troponin (HSTnT) 12 ng/L ()?? 12/05/2022 06:44 ?? CHEM GENERAL Sodium 135 mmol/L ()?? 12/07/2022 00:38 Potassium 4.9 mmol/L ()?? 12/07/2022 00:38 Chloride 102 mmol/L ()?? 12/07/2022 00:38 Bicarbonate Level 24 mmol/L ()?? 12/07/2022 00:38 Anion Gap 9 ()?? 12/07/2022 00:38 Glucose Level 109 mg/dL (High)?? 12/07/2022 00:38 BUN 22 mg/dL ()?? 12/07/2022 00:38 Creatinine-Blood 0.8 mg/dL ()?? 12/07/2022 00:38 Estimated GFR Creatinine 97 ML/MIN/1.73 M2 ()?? 12/07/2022 00:38 Calcium 8.1 mg/dL (Low)?? 12/07/2022 00:38 Protein, Total 5.3 Gm/dL (Low)?? 12/05/2022 03:03 Albumin 3.2 Gm/dL (Low)?? 12/05/2022 03:03 AG Ratio 1.5 ()?? 12/05/2022 03:03 Alkaline Phosphatase 83 units/L ()?? 12/05/2022 03:03 AST (SGOT) 9 units/L ()?? 12/05/2022 03:03 ALT (SGPT) 15 units/L ()?? 12/05/2022 03:03 Bilirubin, Total 0.5 mg/dL ()?? 12/05/2022 03:03 Lactate 0.7 mmol/L ()?? 12/05/2022 06:44 ?? HEME OTHER Hold Blue Top SPECIMEN DISCARDED AFTER 4 HOURS. ()?? 12/05/2022 03:03 ? URINE OTHER Est Creatinine Clearance 94.13 mL/min ()?? 12/07/2022 01:46 ? VIROLOGY COVID-19 by RT-PCR NEGATIVE ()?? 12/05/2022 03:30 ? Microbiology ?? COVID-19 (Novel Coronavirus), Rapid PCR?? Completed?? Source: Nasal Body Site: Nose Collected Dt/Tm: 12/05/2022 01:43 Last Updated Dt/Tm: 12/05/2022 04:23 Imaging(s) ?CT Chest W/ Contrast ?? 12/06/2022 13:22??by Jamie Hyde MD ?FINDINGS: ?? Media Associate view findings, lines and tubes: None. ?? Trachea and airways: Patent without evidence of tracheal or endobronchial lesion. ?? Lungs and pleura: Severe centrilobular emphysema. Linear scarring in the right upper lobe. Dependent airspace opacity in the right lower lobe, likely atelectasis. Subtle patchy tree-in-bud and groundglass opacity in the right middle lobe, right lower lobe, and posterior right upper lobe. No effusion or pneumothorax. ?? Mediastinum and luis alfredo: No mass or hematoma. No mediastinal or hilar lymphadenopathy. No esophageal abnormality. ?? Heart: Heart is normal in size. No pericardial effusion. Mild coronary artery calcification. ?? Aorta: No aortic aneurysm. ?? Pulmonary arteries: Normal caliber. No evidence of pulmonary embolism on this study performed without angiographic technique. ?? Chest wall soft tissues: No acute abnormality. ?? Diaphragm: Intact. ?? Upper abdomen: No significant abnormality. ?? Bones: Chronic appearing right distal clavicle fracture. Prior vertebral body augmentation at T7 and T9. Age indeterminate partially visualized moderate L1 compression fracture. ?? IMPRESSION: ?? 1. Patchy tree-in-bud and groundglass opacity in the posterior right lung, likely infectious or inflammatory. 2. No evidence of abscess or empyema. 3. Severe emphysema. 4. Age-indeterminate L1 compression fracture. ?Chest 2 Views Frontal and Lat ?? 12/05/2022 05:11??by Socrates Lovett MD ?FINDINGS: ?? LINES AND TUBES: None. ?? LUNGS AND PLEURA: Low lung volumes. Ill-defined airspace opacities within the right lower lobe may represent pneumonia. No pleural effusion. No pneumothorax. ?? HEART, MEDIASTINUM AND LUIS ALFREDO: Heart is normal in size. Normal mediastinal and hilar contour. ?? BONES AND SOFT TISSUES: No acute abnormality. Cement vertebroplasty within the thoracic spine. Old right clavicle fracture or clavicular osteolysis. Probable small paraesophageal hernia. ?? IMPRESSION: ?? Ill-defined airspace opacities within the right lower lobe may represent pneumonia. 30??minutes spent on discharge ?? Patient seen and discussed with Attending, Dr. Guevara ?? Vlad Martínez MD PGY-1, Internal Medicine-Pediatrics Pager [phone] ?? * Corky Guevara DO: PERFORM Event Display: Discharge/Transfer Note Hospital Authored Date: ATTENDING ADDENDUM I have seen and examined the patient independently and confirmed the findings in the below discharge summary discharge plan discussed in detail with Dr Martínez (she reviewed d/c instructions with assist of stratus court interpreter) ?? 35 minutes spent on discharge including physical exam, lab review, med rec, discharge instructions/coordination [place] [id number] * Abbie Mota RN: PERFORM Event Display: Patient Education/Instruction Authored Date: [id number] Inpatient Adult Discharge Instructions [address] [id number] Name: ОЛЕГ JIMENEZ : 1955 Visit: 12/06/2022 15:24:00 Current Date: 12/08/2022 14:32 Account: [id number] Inpatient Adult Discharge Instructions We would like to thank you for allowing us to assist you with your healthcare needs. The following includes patient education materials and information regarding your injury/illness. Our entire staffstrives to provide an excellent experience for our patients and their families. PLEASE ENSURE YOU FOLLOW-UP PER THE INSTRUCTIONS BELOW! ?? YOUR OPINION IS IMPORTANT TO US! Please complete the survey you may receive by mail or email. Your feedback will be used to make improvements to the healthcare experiences of our patients and their families. Surveys are administered by [employer] ?? If further treatment with your primary care physician or another doctor is recommended, it is important for you to keep the appointment. Call your primary care physician or return to the Emergency Department immediately if your condition worsens, fails to improve, or new symptoms develop. If you need to find a doctor, you can call [facility] for a referral at [phone] or toll free at [phone] ([phone]) or log in to [email or web address] ?? You can view and manage your care through the patient portal or by using a health care jenniffer of your choosing. [employer] is a website that allows you to securely view your medical information including your hospital discharge summary, office visit summaries, medications and follow-up visits. You can also request appointments, renew medications, and request access to your medical information using a health care jenniffer of your choosing, or just ask a question. You can enroll at [email or web address] or register during your next office visit. You have been discharged from [facility], Patient Care Unit: D6A. If you have any questions regarding these instructions after you leave, please call us and we will be happy to assist you. [facility] Your Care Team Attending Physician Corky Guevara DO Discharging Providers Vlad Martínez MD Reason for Admission PNA? Your Diagnosis Pneumonia Hypotension COPD mixed type Atrial fibrillation Hypertension Anxiety Insomnia Gastroparesis Hyperlipidemia Cough Shortness of breath Tests Performed Below is a partial list of the tests performed during your hospitalization. You may have had other tests and procedures not included in this list. Please discuss all test results with your provider. Basic Metabolic Panel BUN CBC CBC w/ Differential Comprehensive Metabolic Panel COVID-19 (Novel Coronavirus), Rapid PCR Creatinine Electrolytes High??Sensitivity??Troponin T Hold Blue Top Tube Lactate Level ProBNP Troponin T, High Sensitivity CT Chest W/ Contrast CXR W/ Frontal and Lat Primary Care Provider Rigoberto Madrigal MD Advance Directive Health Care Proxy on File No Patient refuses to discuss Discharge Vitals Temperature: 97.7 DegF Height: 180.34 cm Pulse Rate:??51 bpm??Low Weight: 85.8 kg Respiratory Rate: 18 br/min Body Mass Index:??26.38 kg/m2??High Systolic Blood Pressure: 98 mm Hg Body surface area: 2.07 Diastolic Blood Pressure: 70 mm Hg ?? Oxygen Saturation: 95 % ?? Studies Pending All tests and labs ordered during this hospital stay have been completed unless listed below. Please discuss all pending results with your provider listed above in these instructions. ?? Blood Culture Blood Culture #2 What to do next Instructions From Your Doctor You are brought to the hospital because you are having shortness of breath at your rehab. ??Imagingin the hospital did show you had a pneumonia. ??You were given??IV and oral antibiotics.?? You are initially placed on oxygen, but this was able to be taken off.?? During??your hospitalization,??you also had chronic back pain due to the vertebral fracture.?This pain did improve with medication.?? By time of discharge, you do not have a fever, you are maintaining oxygen on room air,??and your lab work was stable. ??You are being discharged on??2 oral antibiotics called Augmentin which you will take 3 times a day??for 1 more day tomorrow and azithromycin which you will take 1 more time??tomorrow for total of 5 days of treatment for the pneumonia.?? Please follow-up closely with your primary care doctor. ??Please continue take your other home medications including your Trelegy and ProAir inhalers. If you develop any chest pain, shortness of breath, episodes of passing out, numbness or??tingling,dizziness, or any other new or concerning symptom please seek immediate medical attention. Discharge Orders You Need to Schedule the Following Appointments Follow Up with??Rigoberto Madrigal MD Where: [address] [place] [address]- Discharge Medications BARBARACHARLOTTEОЛЕГ :1955 Visit Date:12/06/2022 Medications: Please continue your medications until treatment is completed or stopped by your provider. Medications not listed below should be discontinued. Discuss any questions related to medications with your provider. What How Much When Instructions Next Dose New Amoxicillin-Clavulanate (Augmentin 500 Tablet) 1 tab(s) Oral 3 times a day for 1 more day (3 more doses) ?? 12/08 9pm New Azithromycin (azithromycin 250 mg oral tablet) 250 Milligram Oral Daily for 1 more day (1 more dose) ?? 12/09 9am Changed Trazodone (traZODone 100 mg oral tablet) 1 tab(s) Oral Daily at Bedtime 12/08 bedtime Unchanged Albuterol (Ventolin HFA 108 mcg/ inh inhalation aerosol with adapter) INHALE 2 PUFFS BY MOUTH EVERY 6 HOURS NEEDED FOR WHEEZING ?? as needed Unchanged apixaban (Eliquis 5 mg oral tablet) 1 tab(s) Oral Twice a day 12/08 9pm Unchanged dexlansoprazole (dexlansoprazole 60 mg oral delayed release capsule) TAKE 1 CAPSULE BY MOUTH DAILY ?? 12/09 9am Unchanged fluticasone/ umeclidinium/ vilanterol (Trelegy Ellipta 200 mcg-62.5 mcg-25 mcg/ inh inhalation powder) 1 puff(s) Inhalation Daily at the same time every day ?? 12/09 9am Unchanged linaclotide (Linzess 145 mcg oral capsule) TAKE 1 CAPSULE BY MOUTH DAILY ?? 12/09 9am Unchanged Metoclopramide (metoclopramide 10 mg oral tablet) TAKE 1 TABLET BY MOUTH FOUR TIMES DAILY BEFORE MEALS AND BEFORE BEDTIME ?? 12/08 before meals Unchanged Quetiapine (QUEtiapine 300 mg oral tablet) 1 tab(s) Oral Daily at Bedtime 12/08 bedtime Unchanged Simvastatin (simvastatin 20 mg oral tablet) 1 tab(s) Oral Daily at Bedtime 12/08 bedtime Unchanged Sotalol (sotalol 80 mg oral tablet) TAKE 1 TABLET BY MOUTH TWICE DAILY ?? 12/08 bedtime Unchanged Tramadol (traMADol 50 mg oral tablet) TAKE 1 TABLET BY MOUTH EVERY 8 HOURS FOR 10 DAYS NEEDED FOR PAIN ?? as needed ?? What When Comments Stop Taking Valsartan (valsartan 40 mg oral tablet) TAKE 1/ 2 TABLET BY MOUTH TWICE DAILY ?? Test Results Below is a partial list of the most recent Laboratory test results done prior to this discharge. You may have had other tests and procedures not included in this list. Please discuss all test resultswith your provider. Est Creatinine Clearance - 94.13 mL/min (12/07/2022) Basic Metabolic Panel (12/07/2022) ???Sodium - 135 mmol/L???Potassium - 4.9 mmol/L???Chloride - 102 mmol/L???Bicarbonate Level - 24 mmol/L???Anion Gap - 9???Glucose Level - 109 mg/dL???BUN - 22 mg/dL???Creatinine-Blood - 0.8 mg/dL???Estimated GFR Creatinine - 97 ML/MIN/1.73 M2???Calcium - 8.1 mg/dL BUN (12/06/2022) ???BUN - 20 mg/dL CBC (12/07/2022) ???WBC - 6.5 k/mm3???RBC - 3.98 m/mm3???Hgb - 10.7 Gm/dL???Hct - 34.1 %???MCV - 85.7 femtoliters???MCH - 26.9 pg???MCHC - 31.4 g/dL???Platelet Count - 230 k/mm3???RDW-SD - 48.8 femtoliters???MPV - 9.1 femtoliters???Nucleated RBC (Automated) - 0.0 #/100 WBC'S???Abs. NRBC - 0.0 k/mm3 CBC w/ Differential (12/05/2022) ???WBC - 7.7 k/mm3???RBC - 3.88 m/mm3???Hgb - 10.6 Gm/dL???Hct - 33.5 %???MCV - 86.3 femtoliters???MCH - 27.3 pg???MCHC - 31.6 g/dL???Platelet Count - 217 k/mm3???RDW-SD - 49.1 femtoliters???MPV - 9.1 femtoliters???Nucleated RBC (Automated) - 0.0 #/100 WBC'S???Abs. NRBC - 0.0 k/mm3???Abs. Neut - 5.4 k/mm3???Abs. Lymph - 1.8 k/mm3???Abs. [place] - 0.4 k/mm3???Abs. Eo - 0.0 k/mm3???Abs. Baso - 0.0 k/mm3???Neut % - 70.1 %???Lymph % - 23.1 %???[place] % - 5.5 %???Eos % - 0.5 %???Baso % - 0.1 %???Imm Gran- 0.7 %???Abs. Imm Gran - 0.1 k/mm3 Comprehensive Metabolic Panel (12/05/2022) ???Sodium - 137 mmol/L???Potassium - 4.0 mmol/L???Chloride - 103 mmol/L???Bicarbonate Level - 24 mmol/L???Anion Gap - 10???Glucose Level - 97 mg/dL???BUN - 27 mg/dL???Creatinine-Blood - 1.0 mg/dL???Estimated GFR Creatinine - 82 ML/MIN/1.73 M2???Calcium - 8.0 mg/dL???Protein, Total - 5.3 Gm/dL???Albumin - 3.2 Gm/dL???AG Ratio - 1.5???Alkaline Phosphatase - 83 units/L???AST (SGOT) - 9 units/L???ALT(SGPT) - 15 units/L???Bilirubin, Total - 0.5 mg/dL COVID-19 (Novel Coronavirus), Rapid PCR (12/05/2022) ???COVID-19 by RT-PCR - NEGATIVE Creatinine (12/06/2022) ???Creatinine-Blood - 1.0 mg/dL???Estimated GFR Creatinine - 87 ML/MIN/1.73 M2 Electrolytes (12/06/2022) ???Sodium - 140 mmol/L???Potassium - 4.8 mmol/L???Chloride - 106 mmol/L???Bicarbonate Level - 24 mmol/L???Anion Gap - 10 High??Sensitivity??Troponin T (12/05/2022) ???High Sensitivity Troponin (HSTnT) - 11 ng/L Hold Blue Top Tube (12/05/2022) ???Hold Blue Top - SPECIMEN DISCARDED AFTER 4 HOURS. Lactate Level (12/05/2022) ???Lactate - 0.7 mmol/L ProBNP (12/05/2022) ???Nt-Probnp - 170 pg/mL Troponin T, High Sensitivity (12/05/2022) ???High Sensitivity Troponin (HSTnT) - 12 ng/L Allergies (NKA means No Known Allergies) NKA Problems No qualifying data available Education Materials Below is the list of Educational Leaflet Providered with your Discharge Instructions. Azithromycin Oral Tablet?? Amoxicillin/Clavulanate Oral Tablet?? Treating Pneumonia?? Pneumonia (Adult)?? Mechanical Fall?? Fall Prevention?? Valuables and Belongings I fully understand and agree that [facility] accepts no responsibility for all my personal property including clothing, toilet articles, radios, jewelry, dentures, hearing aids, rings, money, or any other property that is in my possession or is brought to me after admission. I understand certain valuables may be placed in a hospital safe for a short period of time. I understand that the hospital is not liable for loss or damage due to accident, fire, or other natural occurrence while said property is in the safe. I accept full responsibility for any personal property that I keep with me, and will not hold the hospital responsible in case of loss or disappearance. I acknowledge that i have been encouraged to send valuables and belongings home. ?? No Valuables/Belongings: No valuables/belongings present Review of Valuable and Belonging List: With patient, With witness Date for Pt to Sign Valuables/Belongings: 12/05/22 13:44:00 ?? Other Discharge Information ? Case Management Discharge Plan?? Discharge Plan?? Discharge Level of Care at Discharge: retirement facility Discharge Transportation Arranged: [facility] [address] [facility] ??[phone] Mode of Transportation Arranged: Ambulance Discharge Arranged Transport Date/Time: 12/08/22 15:00:00 Discharge Nursing Homes/Rehab Facilities: [facility] ?? Pulmonary Rehab Status?? Pulmonary Rehab Discharge Status?? Respiratory Rate: 18 br/min ? Common Emergency Awareness Tips IS IT A STROKE? Act FAST and Check for these signs: FACE Does the face look uneven? ARM Does one arm drift down? SPEECH Does their speech sound strange? TIME Call at any sign of stroke ?? Heart Attack Signs Chest discomfort: Most heart attacks involve discomfort in the center of the chest and lasts more than a few minutes, or goes away and comes back. It can feel like uncomfortable pressure, squeezing, fullness or pain. Discomfort in upper body: Symptoms can include pain or discomfort in one or both arms, back, neck, jaw or stomach. Shortness of breath: With or without discomfort. Other signs: Breaking out in a cold sweat, nausea, or lightheaded. Remember, MINUTES DO MATTER. If you experience any of these heart attack warning signs, call to get immediate medical attention! ?? Smoking can increase your chances of developing chronic health problems and can cause harmful effects to other family members in your house. If you smoke, you are strongly encouraged to quit. Please call [facility] at [phone] or [phone] [place] ([phone]) or log in to [email or web address] for referrals to smoking cessation programs. ?? 916 Suicide & Crisis Lifeline is available 13/01 if you or someone you know needs to find a reason to keep living. By calling 483 you'll be connected to a skilled, trained counselor at a crisis center in your area. INPATIENT DISCHARGE INSTRUCTIONS SIGNATURE PAGE ОЛЕГ JIMENEZ Location:[facility] Registration Date and Time:12/06/2022 15:24 EDT Primary Care Physician: Rigoberto Madrigal MD, Attending Physician: Corky Guevara DO, I ОЛЕГ JIMENEZ, have received the above patient education materials/instructions and have verbalized understanding. If ambulance or transport services are being used I further acknowledge being given a choice of service. ?? If you need to contact me, please call me at this number: . 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 [id number] Azithromycin Oral Tablet Brands: Zithromax Usos Para tratar fabienne infecci??n bacteriana. ?? Instrucciones Puede tomarse con alimentos para prevenir molestias estomacales. Mantenga el medicamento a temperatura ambiente, alejado bandar y el calor. No tome [place] medicamento con anti??cidos. Si olvida marcelo fabienne dosis a tiempo, t??vidhi shen pronto lo recuerde. Si es jerri la hora de la dosis siguiente, no tome la dosis olvidada. Vuelva al horario normal. No tome dos dosis al mismo tiempo. Las interacciones con otros medicamentos pueden cambiar la forma en que act??an los medicamentos o aumentar el riesgo de presentar efectos secundarios. Informe a elen profesionales sanitarios acerca de todos los medicamentos que usa. [place] incluye medicamentos con y sin receta m??dica, vitaminas y medicamentos a base de hierbas. Hable con sheridan m??dico o farmac??utico antes de empezar o dejar de usar cualquier medicamento. Siga usando [place] medicamento delmy el n??gosia total de d??as que se lo recetaron. No deje de usarel medicamento, incluso si empieza a sentirse mejor. ?? Precauciones Informe a sheridan m??dico y a sheridan farmac??utico si alguna vez lewis tenido fabienne reacci??n al??rgica a un medicamento. No use el medicamento m??s veces de lo indicado. D??gale a sheridan m??dico si tiene diarrea moderada a intensa mientras usa [place] medicamento. No use medicamentos de venta ivan (sin receta) para tratar la diarrea. [place] medicamento pasa a la leche materna. Consulte a sheridan m??dico antes de amamantar. Delmy el embarazo, [place] medicamento solo debe usarse cuando sea claramente necesario. Hable con sheridan m??dico acerca de los riesgos y beneficios. No comparta [place] medicamento con otras personas a quienes no se les recet??. ?? Efectos Secundarios La siguiente es fabienne lista de algunos efectos secundarios comunes de [place] medicamento. Hable con el m??dico para saber qu?? debe hacer en taz de tener estos u otros efectos secundarios. ??? diarrea ??? n??useas y v??mitos ??? indigesti??n estomacal o dolor abdominal ??? infecci??n porc??ndida en la boca ??? picor en la vagina o infecci??n vaginal por c??ndida Llame al m??dico u obtenga atenci??n m??dica de inmediato si nota cualquiera de estos efectos secundarios m??s graves: ??? diarrea severa, acuosa o con berto ??? problemas de o??do (tinnitus, p??rdida de la audici??n)??? desmayo ??? hinchaz??n en el kathleen o la garganta ??? latidos del coraz??n acelerados o irregulares ??? signos de da??o hep??thalia (tales gianni ojos o piel amarillentos, orina oscura o cansancio inusual) ??? debilidad muscular ??? enrojecimiento, ardor o picaz??n en la piel ??? dolor intenso del est??garret o las v??as digestivas ??? visi??n borrosa o cambios en la visi??n ??? v??joce intenso o persistente Algunas personas podr??an tener reacciones al??rgicas a am[place] medicamento. Entre los s??ntomas pueden incluirse: dificultad para respirar, erupci??n en la piel, comez??n, hinchaz??n o mareos intensos.Si nota algunos de estos s??ntomas, busque asistencia m??dica r??pidamente. ?? Extra Hable con sheridan m??dico, enfermero o farmac??utico si tiene alguna pregunta acerca de [place] medicamento. ?? [email or web address] NOTA IMPORTANTE: En [place] documento hay fabienne explicaci??n breve sobre c??mo usar el medicamento, perono incluye todo lo que hay que saber acerca del medicamento. Sheridan m??dico o sheridan farmac??utico podr??a suministrarle otros documentos acerca de sheird[place] medicamento. Comun??quese con ellos si tiene alguna pregunta. Siga siempre elen consejos. Fabienne descripci??n m??s completa de [place] medicamento est?? disponibleen ingl??s. Escanee am[place]ica c??digo en sheridan tel??fono inteligente o en sheridan tableta, o use la direcci??n web que aparece a continuaci??n. Tambi??n puede pedirle a sheridan farmac??utico fabienne copia impresa. Si tiene alguna pregunta, h??gasela a sheridan farmac??utico. La exhibici??n y el uso de esta informaci??n sobre f??rmacos est?? sujeta a los T??rminos de Uso. Copyright(c) 2022 [employer]. ?? 1795-6433 [employer]. All rights reserved. This information is not intended as a substitute for professional medical care. Always follow your healthcare professional's instructions. ?? * Abbie Mota RN: PERFORM Event Display: Patient Education Leaflets Authored Date: [id number] Amoxicillin/Clavulanate Oral Tablet ?? [id number] Amoxicillin/Clavulanate Oral Tablet Brands: Augmentin Usos Para tratar fabienne infecci??n bacteriana. ?? Instrucciones [place] el medicamento con alimentos. Mantenga el medicamento a temperatura ambiente, alejado bandar y el calor. Es importante que contin??e tomando todas las dosis de [place] medicamento a la hora indicada aunque se sienta blaise. Si olvida marcelo fabienne dosis a tiempo, t??vidhi shen pronto lo recuerde. Si es jerri la hora de la dosis siguiente, no tome la dosis olvidada. Vuelva al horario normal. No tome dos dosis al mismo tiempo. Informe a sheridan m??dico y a sheridan farmac??utico acerca de todos los medicamentos que usa. [place] incluye medicamentos con y sin receta m??dica, vitaminas y medicamentos a base de hierbas. Siga usando [place] medicamento delmy el n??gosia total de d??as que se lo recetaron. No deje de usarel medicamento, incluso si empieza a sentirse mejor. Si usted tiene diabetes y usa pruebas de glucosa en la orina, [place] medicamento puede causar resultados incorrectos. Consulte a sheridan m??dico antes de hacer cualquier cambio en sheridan plan de tratamiento para la diabetes. ?? Precauciones Informe a sheridan m??dico y a sheridan farmac??utico si alguna vez lewis tenido fabienne reacci??n al??rgica a un medicamento. No use el medicamento m??s veces de lo indicado. D??gale a sheridan m??dico si tiene diarrea moderada a intensa mientras usa [place] medicamento. No use medicamentos de venta ivan (sin receta) para tratar la diarrea. Informe a sheridan m??dico o farmac??utico si est?? o planea quedar embarazada, o si est?? amamantando. No empiece ni deje de marcelo otros medicamentos sin hablar nessa con el m??dico o farmac??utico. No comparta [place] medicamento con otras personas a quienes no se les recet??. ?? Efectos Secundarios La siguiente es fabienne lista de algunos efectos secundarios comunes de [place] medicamento. Hable con el m??dico para saber qu?? debe hacer en taz de tener estos u otros efectos secundarios. ??? diarrea ??? n??useas y v??mitos ??? indigesti??n estomacal o dolor abdominal Llame al m??dico u obtenga atenci??n m??dica de inmediato si nota cualquiera de estos efectos secundarios m??s graves: ??? dolor abdominal bk o persistente ??? diarrea severa, acuosa o con berto ??? signos de da??o hep??thalia (tales gianni ojos o piel amarillentos, orina oscura o cansancio inusual) ??? enrojecimiento, ardor o picaz??n en la piel ??? infecci??n por c??ndida en la boca ??? comez??n o flujo vaginal Algunas personas podr??an tener reacciones al??rgicas a [place] medicamento. Entre los s??ntomas pueden incluirse: dificultad para respirar, erupci??n en la piel, comez??n, hinchaz??n o mareos intensos.Si nota algunos de estos s??ntomas, busque asistencia m??dica r??pidamente. ?? Extra Hable con sheridan m??dico, enfermero o farmac??utico si tiene alguna pregunta acerca de [place] medicamento. ?? [email or web address] NOTA IMPORTANTE: En [place] documento hay fabienne explicaci??n breve sobre c??mo usar el medicamento, perono incluye todo lo que hay que saber acerca del medicamento. [place] m??dico o sheridan farmac??utico podr??a suministrarle otros documentos acerca de sheridan medicamento. Comun??quese con ellos si tiene alguna pregunta. Siga siempre elen consejos. Fabienne descripci??n m??s completa de [place] medicamento est?? disponibleen ingl??s. Escanee [place] c??digo en sheridan tel??fono inteligente o en sheridan tableta, o use la direcci??n web que aparece a continuaci??n. Tambi??n puede pedirle a sheridan farmac??utico fabienne copia impresa. Si tiene alguna pregunta, h??gasela a sheridan farmac??utico. La exhibici??n y el uso de esta informaci??n sobre f??rmacos est?? sujeta a los T??rminos de Uso. Copyright(c) 2022 [employer]. ?? [id number] [employer]. All rights reserved. This information is not intended as a substitute for professional medical care. Always follow your healthcare professional's instructions. ?? * Tanya BATRES, Vlad: PERFORM Event Display: Patient Education Leaflets Authored Date: [id number] Treating Pneumonia ?? 37387 Tratamiento de la neumon??a La neumon??a es fabienne infecci??n que se presenta en nils o en ambos pulmones. ??? La neumon??a es causada por un virus, un hongo o fabienne bacteria. El tratamiento depende de la causa. ??? La neumon??a puede ser muy grave, especialmente en los beb??s, los ni??os rajiv??os y los adultos mayores. Tambi??n en personas con otros problemas de teagan cr??nicos o que tienen un sistema inmunitario debilitado. ??? A veces, se trata en el hogar y, otras veces, en el hospital. Medicamentos antibi??ticos Es posible que se necesiten antibi??ticos contra la neumon??a causada por bacterias. Estos pueden administrarse de forma oral (p??ldoras), en inyecciones o por v??a intravenosa, es decir, en fabienne vena. Si va a marcelo pastillas en sheridan casa, bry lo siguiente: ??? Surta sheridan receta y comience a marcelo sheridan medicamento lo antes posible. ??? Es posible que comience a sentirse mejor en nils o dos d??as. Aranza no deje de marcelo el antibi??thalia. [place] los medicamentos brown gianni le indic?? el proveedor de atenci??nm??dica. Si carl de tomarlo demasiado pronto, la neumon??a puede regresar. O la bacteria puede volverse resistente al tratamiento en el futuro. ??? Use un pastillero o programe fabienne alarma para acordarse de marcelo el medicamento. ??? Avise a sheridan proveedor de atenci??n m??dica si presenta efectos secundarios. ??? [place] sheridan medicamento exactamente gianni se indica en la etiqueta. Hable con sheridan proveedor o sheridan farmac??utico si tiene alguna pregunta. ?? Medicamentos antivirales Es posible que se receten o administren antivirales para la neumon??a causada por un virus. Por ejemplo, es posible que se recete un medicamento antiviral para la neumon??a causada por el virus de lagripe. Los antibi??ticos no sirven contra los virus. Si usted est?? tomando medicamentos antivirales en sheridan casa, bry lo siguiente: ??? Surta sheridan receta y comience a marcelo sheridan medicamento lo antes posible. ??? Hable con sheridan proveedor o farmac??utico sobre los posibles efectos secundarios. Avise a sheridan proveedor de atenci??n m??dica si presenta efectos secundarios. ??? [place] el medicamento exactamente gianni le indicaron. Hable con sheridan proveedor o sheridan farmac??utico si tiene alguna pregunta. ??? Use un pastillero o programe fabienne alarma para acordarse de marcelo el medicamento. ?? Para aliviar los s??ntomas Hay muchos medicamentos que pueden ayudar a aliviar los s??ntomas de la neumon??a. Algunos requieren receta y otros son de venta ivan. El proveedor de atenci??n m??dica puede recomendarle lo siguiente: ??? Paracetamol o ibuprofeno para bajar la fiebre y aliviar el dolor de alin u otros dino ??? Jarabe para la tos para aflojar el moco o para reducir la tos Consulte con el proveedor de atenci??n m??dica o un farmac??utico antes de marcelo cualquier medicamento de venta ivan, gianni medicamentos para la tos y el resfriado. Algunos medicamentos de venta ivan no deben usarse si tiene ciertas afecciones m??dicas. [place] le d?? aspirina a un mynor de 19??a??os. Puede causar fabienne enfermedad grave llamada s??ndrome de Lloyd. ?? Tratamientos especiales Si lo hospitalizan debido a la neumon??a, es posible que reciba otros tratamientos, gianni los siguientes: ??? Medicamentos inhalados para ayudarlo a respirar y a aliviar el pecho congestionado ??? Ox??genosuplementario para aumentar los niveles bajos de ox??jose o fabienne m??quina, gianni un ventilador, para ayudar a respirar si la neumon??a es grave ??? L??quidos intravenosos o medicamentos ?? [place] l??quidos y coma alimentos saludables Debe mantenerse willard para ayudar al cuerpo a combatir la infecci??n. Beber abundante cantidad de l??quido ayuda a reemplazar el l??quido que se pierde a causa de la fiebre y a aflojar la mucosidad que tiene en el pecho. ??? Dieta. Elija alimentos saludables. [place] incluye frutas y verduras, suzette magras y otras perez de prote??na, granos 100??% integrales y productos l??cteos sin grasa o con contenido bajo de grasa. ??? L??quidos. [place] al menos de 6 a 8 vasos grandes al d??a. Lo mejor es optar por agua y jugos con 100??% de frutas o verduras. ?? Descanse y duerma mucho Es probable que se sienta m??s cansado de lo habitual por un tiempo. Por lo tanto, es importante que duerma lo suficiente a la noche. Tambi??n es importante descansar delmy el d??a. Hable con sheridan proveedor de atenci??n m??dica si la tos u otros s??ntomas est??n interfiriendo con sheridan adilson??o. ?? Prevenga la propagaci??n de microbios La mejor medida que puede marcelo para evitar propagar microbios es lavarse las guerline con frecuencia.Es recomendable que bry lo siguiente: ??? Fr??tese las guerline con jab??n y agua limpia delmy??20??segundos gianni m??kirby. ??? L??vese entre los dedos, el dorso de las guerline y alrededor de las u??as. ??? S??quese las guerline con fabienne toalla individual o use toallas de papel. Adem??s, es recomendable que bry lo siguiente: ??? Tener al alcance un limpiador de guerline a base de alcohol con al menos un 60??% de alcohol. Y usarlo cuando no disponga de agua y jab??n. ??? Asegurarse de limpiar tambi??n las superficies que toca. Usar un producto que mate todos los tipos de microbios. ??? Mantenerse alejado de otras personas hasta que se sienta mejor. ??? Cubrirse la nariz y la boca al toser o estornudar. Lavarse las guerline despu??s de hacerlo. ?? Vac??nese Las vacunas ayudan a prevenir la neumon??a en el futuro. Consulte con el proveedor de atenci??n m??dica qu?? vacunas son las adecuadas para usted y cu??ndo debe recibirlas. Estas pueden incluir las vacunas antineumoc??cica, antigripal y contra la COVID-19. ?? Cu??ndo llamar al proveedor de atenci??n m??dica Llame a sheridan proveedor de atenci??n m??dica si tiene cualquiera de los siguientes s??ntomas: ??? S??ntomas que empeoran o que no se alivian ??? Aparici??n de s??ntomas nuevos ??? La fiebre contin??a ??? Falta de aliento cuando realiza actividades diarias normales ??? Presenta efectos secundarios de elen medicamentos ??? El moco aumenta o es m??s oscuro ??? La tos empeora ?? Cu??ndo llamar al?? 911 Llame al 911 si tiene algo de lo siguiente: ??? Dolor de pecho ??? Los labios o los dedos de las guerline est??n de color sarkis, cate o vincent ??? Dificultad para respirar o silbidos al respirar ??? Falta de aliento que empeora y no mejora con el tratamiento ??? Sensaci??n de desmayo o mareos ??? P??rdida del conocimiento ??? Dificultades para hablar o para tragar ??? Sensaci??n de muerte ?? Last Reviewed Date: 2022 ?? [id number] [employer]. Todos los derechos reservados. Esta informaci??n no pretende sustituir la atenci??n m??dica profesional. S??lo sheridan m??dico puede diagnosticar y tratar un problema de teagan. ?? Patient Care team information Care Team Personnel Name: Oskar aTnner RN Position: [facility] RN Member Role: Primary Care Nurse Name: Rohit Salguero RN Position: [facility] RN Member Role: Primary Care Nurse Name: Rohan BATRES, Rigoberto Diaz Position: [facility] Outreach Member Role: PCP Address: Address: [address] [place] [id number]- Name: Abbie Jacob RN Position: [facility] RN Member Role: Primary Care Nurse Name: Markell Randall RN Position: [facility] RN Member Role: Primary Care Nurse Name: Katy HOBBS Attending Position: [facility] ED Medicine Name: Rosa Parry Position: [facility] ED TA [facility] Name: Manuel Arellano RN Position: [facility] ED RN W/OE and Tasks Member Role: Patient Care Provider Name: Kalli Alex DO Position: [facility] Resident Member Role: ED Resident Address: Address: [address] [place] [address] [place] [address]- [place] Care Team Related Persons Name: LISA JIMENEZ Address: home [address] [place] [id number]
[2023-10-16 23:23] VITALS: BP 123/74; PULSE 92; RESP 18; TEMP 36.6; O2SAT 91
[2023-10-16 23:32] VITALS: BP 123/74; PULSE 92; RESP 18; TEMP 36.6; O2SAT 93
== END 2023-10-16 23:33 | disposition home or self-care (01) ==
PROVIDERS: Emergency Provider Emergency Medicine; PCP Internal Medicine
DX: M54.50 Low back pain, unspecified (principal); M81.0 Age-related osteoporosis without current pathological fracture; Z79.899 Other long term (current) drug therapy
CPT/HCPCS: 72132; 72192; 99284

== ENCOUNTER 2023-10-24 10:34 | Outpatient (AMB) | payer MEDICARE, MEDICAID, SELFPAY ==
[2023-10-24 10:45] VITALS: BP 109/81; PULSE 111; RESP 18; O2SAT 97; BMI 27.8
--- NOTE | 2023-10-24 10:45 | MHC.OFFVIS ---
Vital Signs 10/24/23 10:45 Height 5 ft 11 in Weight 199 lb BMI 27.8 BP 109/81 Blood Pressure Location Lt brachial Position Sitting Respiration 18 Pulse 111 H Pulse Source Pulse Oximeter Pulse Oximetry (%) 97 Oxygen Delivery Method Room Air Intake Visit Reasons: CHRONIC BACK PAIN/REFERRED FROM ED Allergies No Known Allergies [No Known Allergies*] Allergy (Verified 10/24/23 10:37) HPI Comments Details: Patient presents back to the office today for follow-up, lower back pain. Patient seen here 1 year ago where he underwent L2 kyphoplasty. He reports pain in that area has remained improved since the procedure. He now has pain across the lower back. Initially this was bilateral, he was evaluated in the emergency room and given Medrol Dosepak, cyclobenzaprine and tramadol. Pain is now predominantly on the left lower back. Recently seen in the emergency room, underwent a CT scan. Results reviewed as per below. Endorses left lower back pain, worse with movement, bending and changing from sit to stand position. Patient denies red flag symptoms including new loss of bowel, bladder or saddle anesthesia. Patient completed physical therapy without improvement of symptoms. He continues with home exercise program but states the pain persists. He is unable to take nonsteroidal anti-inflammatory medications as he is on Eliquis. Has been using lidocaine patches with minimal relief of his pain. Prior visit with Dr. Khalil 04/07/23: 67-year-old male who presents today to the office for a status post L2 kyphoplasty. The patient reports 80% relief following the procedure. He reports mild discomfort in his midback. He is currently on Tymlos 80 mcg once daily. He has not tried muscle relaxants in the past. He states that he was taking oxycodone, which he discontinued taking. He is now able to sit for extended periods of time following his surgery. He reports neck pain. He denies any pain in his arms or hands; however, he reports pain in his wrist. Past procedure: 03/19/23: Kyphon Balloon Kyphoplasty with Insertion of HV-R Bone Cement, L1 and L2 Vertebral Bodies: 80% relief. [facility] Medical History Compression fracture of T7 vertebra Cervical spondylosis Bilateral tinnitus Ascending aorta dilatation Opacity of lung on imaging study Tubular adenoma of colon Generalized anxiety disorder Edentulous Cardiomyopathy Bipolar 1 disorder Emphysema lung Ascending aortic aneurysm Atrial fibrillation Osteoporosis Pneumonia Compression fracture of body of thoracic vertebra History of alcohol abuse CHF exacerbation Compression fracture of thoracic spine, non-traumatic Nonischemic cardiomyopathy Tubular adenoma of colon Dyspnea Pulmonary nodules COPD (chronic obstructive pulmonary disease) Personal history of nicotine dependence Hyperlipidemia Constipation GERD (gastroesophageal reflux disease) Depression Hypertension Surgical History Hx of kyphoplasty History of surgery on left wrist (~03/21/10) Hx of endoscopy Hx of colonoscopy (~02/13/06) Hx of cataract surgery (~07/02/10) History of appendectomy History of gastric surgery Family History Mother Renal failure Father History of depression Brother Colon cancer Social History Household Members: None Housing: Apartment Are you a primary care director rn to a significant other at home: No Do you presently have visiting nurse or other home services: No Alcohol intake: never Patient Tobacco Use Status: Former Tobacco user Quit Date: 2 yrs ago Tobacco use type: Cigarette Cigarette Packs Per Day: 0.5 Years Smoked: 55 e-Cigarette/Vaping Use: Former Use Second Hand Smoke Exposure: No Advance Directives Date on File: 09/02/22 service: No Current occupational status: unemployed and disabled 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 Answers questions appropriately. Fully engaged in examination. Skin: warm, dry, intact HEENT: Normocephalic. Hearing intact. Cardiac: External chest normal in appearance. Respiratory: No cough, audible wheezing or stridor. Abdomen: without gross distension. MS: No obvious swelling or deformities. Able to stand on bilateral tiptoes and bilateral heels.? Able to transition from sit to stand unassisted. Ambulates with bilaterally normal heel strike and toe off SLR with dorsiflexion negative bilaterally Tender to palpation left lumbar paraspinal muscles Facet loading positive bilaterally Decreased range of motion, pain with flexion and extension. Neurological: Oriented to person, place, time and situation. Thought process intact. Ambulates with antalgic gait Psychiatric: Appropriate mood and affect. Good judgment and insight. Quality Reporting (2019) Adult ([facility] 138/08/14/68) Smoking risk assessment performed?: Yes Patient Tobacco Use Status: Former Tobacco user Results Reviewed Results Reviewed: 10/16/23 CT LS FINDINGS: Chronic compression fracture deformities, status post vertebral body augmentation are visible at the L1 and L2 levels with bony retropulsion, as seen on prior imaging. There is a chronic mild superior endplate compression deformity at the L4 level, which is stable in appearance compared to the prior exam. Very mild leftward lumbar spinal curvature noted. No new compression fractures are seen. There is significant vacuum disc phenomenon at the L4-L5 level with moderate facet arthropathy. Bulging disc mildly encroaches upon the right neural foramen at this level. No central canal stenosis evident. A mild right lateralized disc bulge is evident at the L3-L4 level without central canal stenosis or foraminal encroachment. The L2-L3 disc space is relatively normal with a mild left lateralized disc bulge. No central canal stenosis or foraminal narrowing is evident. Mild disc bulge noted with mild facet arthropathy at the L1-L2 level where there is no central canal stenosis or foraminal encroachment. Osseous retropulsion from the superior endplate at the L1 level mildly distorts the ventral thecal sac. There is mild epidural fat prominence throughout the lumbosacral canal resulting in mild distortion of the thecal sac at the L3-L4 level and vgkh-iw-ppssampi thecal sac deformity at the L4-L5 level. There is moderate thecal sac distortion at the L5-S1 level as a result of epidural fat prominence in combination with spondylosis, otherwise stable. At the L5-S1 level, there is severe disc space narrowing and vacuum disc phenomenon with endplate spurring contributing to ckul-er-vlscckgs bilateral foraminal encroachment, without central canal stenosis. There are mild degenerative changes of the sacroiliac joints bilaterally with ossific spurring and vacuum phenomenon. No additional fracture identified. The paraspinal soft tissues are normal. IMPRESSION: Interval vertebral body augmentation at the L1 and L2 levels with stable moderate to severe compression fracture deformities, worse at the L1 level. Chronic mild superior endplate compression fracture at L4 which is also stable. No additional compression fractures. Stable spondylosis with vacuum disc phenomenon at the L4-L5 and L5-S1 levels. Chronic severe degenerative disc disease at L5-S1 with gjus-ju-hqjtwppr bilateral foraminal narrowing. No significant central canal stenosis. Stable epidural lipomatosis resulting in varying degrees of thecal sac distortion from the L3 to the upper S1 levels. 11/20/22: CT LUMBAR SPINE FINDINGS: There is a moderate L1 vertebral body compression fracture. Compression is increased from 08/21/2022. There is a mild compression fracture of the superior endplate of the L4 vertebral body. This appears new from 08/21/2022 exam. There is degenerative disc disease at L4-L5 and L5-S1. There is lower lumbar spine facet arthritis. There is mild curvature of the lumbar sacral spine to the right. IMPRESSION: Moderate L1 vertebral body compression fracture increased from previous x-ray 08/21/2022. Mild L4 vertebral body compression fracture new from 08/21/2022 exam. Multilevel degenerative disc disease and facet arthritis of the lower lumbar spine. 01/14/23: CT CHEST WITHOUT CONTRAST FINDINGS: OSSEOUS AND SOFT TISSUE STRUCTURES: Severe L1 compression deformity is more pronounced than on 11/20/2022. Interval development of moderately severe L2 compression fracture. Unchanged T7 and T9 compression fractures with vertebroplasty cement. Mild gynecomastia. IMPRESSION: Redemonstration of advanced emphysema. No suspicious lung nodules. Worsening severe L1 and interval development of moderately severe L2 compression fractures. Assessment & Plan Assessment & Plan (1) Degeneration, intervertebral disc, lumbosacral: Code(s): M51.37 - Other intervertebral disc degeneration, lumbosacral region Category: Medical Plan Avery is a very pleasant 68-year-old male who presented to the office today for follow-up lower back pain History, physical exam and provocative testing consistent with lumbar spondylosis. Patient has exhausted conservative therapy including PT that provided no help, home exercise program he continues to do without improvement of his symptoms, muscle relaxers and topical medications including lidocaine patches. Patient is unable to take nonsteroidal anti-inflammatory medications as he is on Eliquis for AFib. Discussed at length with patient diagnosis and treatment options including diagnostic testing, therapeutic injections, Sprint PNS, RFA and more permanent neuromodulation Will schedule patient for fluoroscopy guided diagnostic left L3-L4 DR L5 medial branch blocks with local anesthetic. Plan for morning than left Sprint PNS if patient reports positive results of diagnostic injections. Refill of cyclobenzaprine sent, patient advised on cautions for use. All questions and concerns were answered, patient agrees with plan. Follow up after injections, sooner if needed. He Medications: Refilled cyclobenzaprine 10 mg PO TID PRN 60 tabs 0RF muscle spasm Coding Level of Care Code Est Pt Level 3 (12296) Diagnoses Degeneration, intervertebral disc, lumbosacral M51.37
== END 2023-10-24 11:11 | disposition home or self-care (01) ==
PROVIDERS: PCP Internal Medicine; Visit Provider Registered Nurse Emergency
DX: M51.37 Other intervertebral disc degeneration, lumbosacral region (principal)
CPT/HCPCS: 99213

== ENCOUNTER → 2023-10-24 10:34 | Outpatient (BNVA) | payer MEDICARE, MEDICAID, SELFPAY | PROVIDERS: PCP Internal Medicine; Visit Provider Registered Nurse Emergency | DX: M51.37 Other intervertebral disc degeneration, lumbosacral region (principal) | CPT/HCPCS: 99212 ==

== ENCOUNTER 2023-12-12 06:30 | Inpatient (IN) | payer MEDICARE, MEDICAID, SELFPAY ==
[2023-12-12] VITALS (18 sets, daily range): BP systolic 93–119; BP diastolic 64–87; PULSE 83–134; RESP 18–31; TEMP 36.2–37.3; O2SAT 90–97; BMI 29.9
--- NOTE | 2023-12-12 | ECG_ITS ---
Test Reason : abnormal rhythm Blood Pressure : / mmHG Vent. Rate : 120 BPM Atrial Rate : 000 BPM P-R Int : 000 ms QRS Dur : 074 ms QT Int : 284 ms P-R-T Axes : 000 055 204 degrees QTc Int : 401 ms Atrial fibrillation with rapid ventricular response with premature ventricular or aberrantly conducted complexes Nonspecific ST and T wave abnormality Abnormal ECG When compared with ECG of 12-DEC-2023 07:08, Atrial fibrillation has replaced Sinus rhythm Nonspecific T wave abnormality now evident in Inferior leads Nonspecific T wave abnormality now evident in Anterior leads Referred By: Abbie Herrera Electronically Signed By:Casimiro Love
--- NOTE | 2023-12-12 | ECG_ITS ---
Test Reason : abnormal rhythm Blood Pressure : / mmHG Vent. Rate : 095 BPM Atrial Rate : 000 BPM P-R Int : 000 ms QRS Dur : 074 ms QT Int : 388 ms P-R-T Axes : 000 055 064 degrees QTc Int : 487 ms Atrial fibrillation with premature ventricular or aberrantly conducted complexes Nonspecific ST abnormality Abnormal ECG No previous ECGs available Referred By: Airam Rodgers Electronically Signed By:
--- NOTE | 2023-12-12 | ECG_ITS ---
Test Reason : abnormal rhythm Blood Pressure : / mmHG Vent. Rate : 098 BPM Atrial Rate : 000 BPM P-R Int : 000 ms QRS Dur : 074 ms QT Int : 338 ms P-R-T Axes : 000 053 065 degrees QTc Int : 431 ms Atrial fibrillation with premature ventricular or aberrantly conducted complexes Abnormal ECG No previous ECGs available Referred By: Airam Rodgers Electronically Signed By:Casimiro Love
--- NOTE | 2023-12-12 | ECG_ITS ---
Test Reason : SOB Blood Pressure : / mmHG Vent. Rate : 129 BPM Atrial Rate : 129 BPM P-R Int : 104 ms QRS Dur : 074 ms QT Int : 394 ms P-R-T Axes : 000 074 076 degrees QTc Int : 577 ms Sinus tachycardia with short WI with occasional Premature ventricular complexes Nonspecific ST abnormality Abnormal ECG When compared with ECG of 10-JUL-2023 21:03, Premature ventricular complexes are now Present WI interval has decreased Nonspecific T wave abnormality no longer evident in Inferior leads Nonspecific T wave abnormality no longer evident in Anterior leads Referred By: Generic ED Physician Electronically Signed By:Casimiro Love
--- NOTE | ~2023-12-12 | XR_ITS ---
EXAMINATION: XR CHEST CLINICAL INFORMATION: Follow up airspace opacities on prior radiograph. COMPARISON: Chest radiograph 12/12/2023. TECHNIQUE: Frontal view of the chest was obtained. FINDINGS: Stable prominence of the cardiomediastinal silhouette. Significantly decreased, essentially resolved patchy airspace opacities in the right lung. No new focal airspace densities. Redemonstration of focal parenchymal scarring in the right upper lobe. Chronic deformity of the right distal clavicle. Kyphoplasty changes. No acute osseous findings. XR/XR chest 1V IMPRESSION: Significantly decreased, essentially resolved airspace opacities in the right lung. No new focal airspace densities.
--- NOTE | ~2023-12-12 | XR_ITS ---
EXAMINATION: XR CHEST CLINICAL INFORMATION: Cough and shortness of breath COMPARISON: Chest radiograph 11/20/2022. CT chest 01/14/2023. TECHNIQUE: Frontal view of the chest was obtained. FINDINGS: The lungs are hypoexpanded. Patchy opacities in the right mid and lower lung. Additional hazy opacities in the left lung base. Background emphysema is better evaluated on prior CT. No significant pleural effusion. No pneumothorax. The cardiomediastinal silhouette is prominent. Again noted remote fracture of the distal right clavicle. Post kyphoplasty changes at T7 and T9. XR/XR chest 1V IMPRESSION: Patchy opacities in the right mid and lower lung. Additional hazy opacities in the left lung base.Findings are concerning for infectious/inflammatory etiology.
--- NOTE | 2023-12-12 06:46 | ED_ITS ---
HPI - General Adult General Chief complaint: Dyspnea Stated complaint: SOB Time Seen by Provider: 12/12/23 06:45 Source: patient Mode of arrival: ambulatory Limitations: no limitations History of Present Illness ED Provider: Cesar Leslie PA-C HPI narrative: 68 yold male with past medical history of CHF, Afib, and COPD presents to ED for cough and shortness of breath that began this morning. So patient called the ambulance. Patient denies any chest pain, or leg swelling. EMS states patient O2 saturation on room air was 88%. Patient was in distress so they put him on CPAP and O2 sat improved to 94% and patient feels better. Patient presently not on any oxygen at home. As per EMS patient is supposed to be oxygen dependent but has refused management consulting order for home oxygen. Patient denies any fever or chills Related Data Home Medications ?Medication ?Instructions ?Recorded ?Confirmed latanoprost 0.005 % eye drops 1 drp ophthalmic (eye) BEDTIME 03/27/20 07/31/23 albuterol sulfate 90 mcg/actuation 2 puff inhalation Q4-6H PRN 07/31/23 07/31/23 aerosol inhaler (Ventolin HFA) wheezing lidocaine 5 % topical patch 1 patch topical DAILY 07/31/23 07/31/23 metoclopramide HCl 10 mg tablet 10 mg PO QIDACHS 07/31/23 07/31/23 naloxone 4 mg/actuation nasal spray 1 spray intranasal DIRECTED 07/31/23 07/31/23 psyllium husk 3 gram/3 gram oral 5.12 g PO DAILY 07/31/23 07/31/23 powder quetiapine 300 mg tablet 300 mg PO BEDTIME 07/31/23 07/31/23 simvastatin 20 mg tablet 20 mg PO QPM 07/31/23 07/31/23 tizanidine 2 mg tablet 2 mg PO BID PRN muscle spasm 09/26/23 trazodone 100 mg tablet 200 mg PO BEDTIME PRN 09/26/23 ferrous gluconate 324 mg (38 mg mg PO DAILY 10/24/23 iron) tablet furosemide 20 mg tablet 20 mg PO DAILY 10/24/23 omeprazole 20 mg capsule,delayed 20 mg PO BID 10/24/23 release Previous Rx's ?Medication ?Instructions ?Recorded apixaban 5 mg tablet (Eliquis) 5 mg PO BID #60 tabs 11/14/22 sotalol 80 mg tablet 80 mg PO BID #80 tabs 06/01/22 fluticasone fur. 100 mcg-umeclid 1 inh inhalation DAILY 30 days #60 01/23/23 62.5 mcg-vilant 25 mcg ea inhalat.powder (Trelegy Ellipta) sucralfate 100 mg/mL oral 20 ml PO QNOON #1,000 mL 08/29/23 suspension (Carafate) linaclotide 145 mcg capsule 145 mcg PO QAM #90 caps 09/08/23 (Linzess) abaloparatide (Tymlos) 80 mcg (0.04 mL) subcut DAILY 10/15/23 #1.56 mL dexamethasone 4 mg tablet 4 mg PO BID #6 tabs 10/16/23 tramadol 50 mg tablet 50 mg PO TID PRN pain #12 tabs 10/16/23 famotidine 40 mg tablet 40 mg PO BEDTIME PRN for heartburn 10/30/23 #90 tabs cyclobenzaprine 10 mg tablet 10 mg PO TID PRN muscle spasm #60 11/21/23 tabs omeprazole 20 mg capsule,delayed 20 mg PO BID #180 caps 11/21/23 release Allergies Allergy/AdvReac Type Severity Reaction Status Date / Time No Known Allergies Allergy Verified 12/12/23 06:38 [No Known Allergies*] Review of Systems 2 Review of Systems: Cough and shortness of breath Yes all other systems are reviewed and are negative PMFSH Past Medical History Medical History (Updated 12/12/23 @ 12:05 by HANNAH Downs) Bipolar 1 disorder Nonischemic cardiomyopathy Ascending aorta dilatation Atrial fibrillation with rapid ventricular response Hypertension Hyperlipidemia COPD (chronic obstructive pulmonary disease) Emphysema lung Pulmonary nodules Opacity of lung on imaging study Nicotine dependence, cigarettes, uncomplicated History of alcohol abuse GERD (gastroesophageal reflux disease) Tubular adenoma of colon Generalized anxiety disorder Depression BPH (benign prostatic hyperplasia) Osteoporosis Edentulous Bilateral tinnitus Compression fracture of T7 vertebra Cervical spondylosis Compression fracture of body of thoracic vertebra Surgical History Hx of kyphoplasty History of surgery on left wrist (~03/21/10) Hx of endoscopy Hx of colonoscopy (~02/13/06) Hx of cataract surgery (~07/02/10) History of appendectomy History of gastric surgery Family History Family History Mother Renal failure Father History of depression Brother Colon cancer Social History Social History Household Members: None Housing: Apartment Are you a primary field care coordinator to a significant other at home: No Do you presently have visiting nurse or other home services: No Alcohol intake: never Patient Tobacco Use Status: Former Tobacco user Tobacco use type: Cigarette Cigarette Packs Per Day: 0.5 Years Smoked: 55 Smoked in Last 30 Days: No e-Cigarette/Vaping Use: Former Use Second Hand Smoke Exposure: No Use of substances other than those prescribed or required for medical reasons: No Advance Directives: Yes Advance Directives on File: Yes Advance Directives Date on File: 09/02/22 service: No Current occupational status: unemployed and disabled 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 Physical Exam ED Vital Signs: Vital Signs - 24 hr 12/12/23 06:39 12/12/23 06:43 12/12/23 06:51 Temperature 99.1 F Pulse Rate 132 H 134 H Respiratory Rate 22 H 20 Blood Pressure 112/77 Pulse Oximetry 90 L 93 Oxygen Delivery Method Nasal Cannula CPAP Oxygen Flow Rate 5 Fraction of Inspired Oxygen 12/12/23 07:20 12/12/23 07:45 12/12/23 08:02 Temperature Pulse Rate 127 H 122 H Respiratory Rate 22 H 30 H 30 H Blood Pressure 104/77 112/80 Pulse Oximetry 93 94 Oxygen Delivery Method CPAP BiPAP Oxygen Flow Rate Fraction of Inspired Oxygen 40 12/12/23 08:12 12/12/23 08:25 12/12/23 08:54 Temperature 98.7 F Pulse Rate 119 H 109 H 99 Respiratory Rate 31 H 22 H 20 Blood Pressure 111/73 102/66 Pulse Oximetry 97 91 L Oxygen Delivery Method CPAP Nasal Cannula Oxygen Flow Rate 3 Fraction of Inspired Oxygen 12/12/23 10:11 Temperature Pulse Rate 100 Respiratory Rate 18 Blood Pressure 93/64 Pulse Oximetry 93 Oxygen Delivery Method Nasal Cannula Oxygen Flow Rate 3 Fraction of Inspired Oxygen BMI result Body Mass Index 29.9 Const General: cooperative, healthy appearing, comfortable, no acute distress, well developed, alert, awake and Physically active Orientation/consciousness: oriented to time and patient oriented x3 HENMT Head: Yes normal to inspection, Yes No palpable skull fracture present, Yes normocephalic, Yes atraumatic and No abrasion Eyes General: appearance normal, both eyes and all related structures Neck Neck: Yes normal visual inspection, Yes full ROM, Yes no lymphadenopathy, Yes no meningeal signs, Yes trachea midline, Yes supple, No anterior neck swelling and No tender Chest Chest palpation & inspection: normal inspection of the chest and normal palpation of entire chest wall Resp Auscultation: crackles (Right) on the right Cardio Jugular venous distension: no JVD Heart sounds: S1 normal heart sound present and S2 normal heart sound present GI Inspection: Yes normal to inspection Palpation (GI): Soft to palpation, not firm, nontender, no guarding and not rigid General: No CVA tenderness and Yes no CVA tenderness Back/Spine/Pelvis Back: no CVA tenderness, No CVA tenderness and No back tenderness Skin General skin exam: no rashes or lesions noted, elasticity normal and turgor normal Neuro General: oriented to time, patient oriented x3, gait normal, tone normal, moves all extremities, no meningeal signs, no focal motor deficits, CN's II-XI intact bilaterally and normal sensation to monofilament Extrem Other: Bilateral lower extremity negative for swelling, pitting edema, or calf tenderness. General: Yes normal to inspection, Yes full ROM and Yes capillary refill normal Psych Appearance: grossly normal, well kempt and not disheveled Medications Administered Discontinued Medications Generic Name Dose Route Start Last Admin Trade Name Freq PRN Reason Stop Dose Admin Acetaminophen 975 mg 12/12/23 08:50 12/12/23 09:16 Acetaminophen 325 Mg Tablet PO 12/12/23 08:51 975 mg ONCE ONE Administration Albuterol Sulfate 2.5 mg/ 0 mg 12/12/23 08:07 12/12/23 08:11 Albuterol/Ipratropium 3 ml INHALE 12/12/23 08:08 5 dose ONCE ONE Administration Magnesium Sulfate 2 gm in 50 mls @ 25 mls/hr 12/12/23 06:42 12/12/23 07:18 Magnesium Sulfate/H2o IV 12/12/23 08:41 Infused ONCE ONE Infusion Azithromycin 500 mg/ Sodium 250 mls @ 125 mls/hr 12/12/23 07:30 12/12/23 11:20 Chloride IV 06/21/24 09:29 Infused ONCE ONE Infusion Ceftriaxone Sodium 1 gm/ 50 mls @ 100 mls/hr 12/12/23 07:35 12/12/23 08:53 Sodium Chloride IV 12/12/23 08:04 Infused ONCE ONE Infusion Sodium Chloride 1,000 mls @ 999 mls/hr 12/12/23 08:02 12/12/23 09:19 Ns IV 12/12/23 09:02 Infused .Q1H1M STA Infusion Methylprednisolone Sodium Succinate 125 mg 12/12/23 06:42 12/12/23 06:56 Methylprednisolone Sod Succ 125 Mg/2 Ml Vial IVPUSH 12/12/23 06:43 125 mg ONCE ONE Administration Medical Decision Making Medical Decision Making MDM Narrative: 68-year-old male history of CHF COPD presents to ED for cough and shortness of breath. Patient is slightly tachypneic and tachycardic but not using accessory muscles. Patient improved on CPAP as per EMS respiratory therapist placed patient on CPAP. Labs, EKG, VBG, and chest x-ray ordered. Negative for lower extremity pitting edema or neck JVD. Albuterol magnesium and Solu-Medrol ordered. 8:56am: Patient downgraded from CPAP to 3 L nasal oxygen O2 sat 91%. Patient looks better. Patient no longer tachypneic or tachycardic. Antibiotics were ordered for pneumonia. Patient to be admitted. Patient is talking clearly in full sentences 9:00am: Admitted to hospitalist for COPD exacerbation pneumonia Differential Diagnosis Differential Diagnoses: The differential diagnosis associated with the presentation includes (Pneumonia, COPD exacerbation, C02 retention) Admission/Observation Consideration of admission/observation: Escalation of care including admission/observation considered Consult Healthcare Provider Management of the patient was discussed with: Hospitalist (Dr. Carreno) Lab Data [facility] Lab Attestation statement: I reviewed the patient's lab results. 12/12/23 08:13 12/12/23 08:13 Labs: Lab Results 12/12/23 12/12/23 12/12/23 Range/Units 06:49 06:50 06:53 WBC (4.8-10.8) X10*3/uL RBC (4.60-5.80) X10*6/uL Hgb (14.0-18.0) g/dl Hct (42.0-52.0) % MCV (80.0-98.0) fL MCH (27.0-33.0) pg MCHC (31.0-36.0) g/dl RDW (11.0-16.0) % Plt Count (160-400) X10*3/uL MPV (9.4-12.4) fL Immature Gran % (Auto) (0.0-0.4) % Neut % (Auto) (45-73) % Lymph % (Auto) (20-40) % [place] % (Auto) (2-11) % Eos % (Auto) (0-4) % Baso % (Auto) (0-2) % Lymph # (Auto) (1.2-4.9) X10*3/uL [place] # (Auto) (0.1-1.2) X10*3/uL Eos # (Auto) (0.0-0.4) X10*3/uL Baso # (Auto) (0.0-0.2) X10*3/uL Abs Immat Gran (auto) (0.00-0.03) X10*3/uL Absolute Neuts (auto) (2.0-8.3) x10*3/uL Absolute Nucleated RBC (0.0-0.012) X10*3/uL Nucleated RBC % (auto) (0.0-0.2) /100WBC PT 14.9 H (11.1-13.3) SEC INR 1.2 H (0.9-1.1) APTT 31.5 (26.0-36.8) SEC VBG pH (7.32-7.43) VBG pCO2 mmHg VBG pO2 mmHg VBG HCO3 (22-26) mmol/L VBG O2 Saturation % VBG Base Excess mmol/L Sodium (135-145) mmol/L Potassium (3.3-5.1) mmol/L Chloride (96-108) mmol/L Carbon Dioxide (22-29) mmol/L Anion Gap (12-20) BUN (9-16) mg/dL Creatinine (0.5-1.4) mg/dL Estim Creat Clear Calc Estimated GFR Random Glucose (60-115) mg/dL Lactic Acid 2.2 H* (0.5-2.0) mmol/L Lactic Acid F/U @ 2Hr (0.5-2.0) mmol/L Calcium (8.4-10.2) mg/dL Total Bilirubin (0.0-1.0) mg/dL AST (5-37) U/L ALT (0-40) U/L Alkaline Phosphatase (39-117) U/L Troponin I High Sens < 2.7 (<3.5-35.0) ng/L B-Natriuretic Peptide 17 (<100) pg/mL Total Protein (6.5-8.0) g/dL Albumin (3.5-5.0) g/dL Influenza Type A (PCR) (Negative) Influenza Type B (PCR) (Negative) RSV RNA Qual (PCR) (Negative) SARS-CoV-2 RNA (RT-PCR) (Negative) 12/12/23 12/12/23 12/12/23 Range/Units 07:04 07:05 08:13 WBC 4.3 L (4.8-10.8) X10*3/uL RBC 5.19 (4.60-5.80) X10*6/uL Hgb 14.4 D (14.0-18.0) g/dl Hct 42.7 (42.0-52.0) % MCV 82.3 (80.0-98.0) fL MCH 27.7 (27.0-33.0) pg MCHC 33.7 (31.0-36.0) g/dl RDW 16.3 H (11.0-16.0) % Plt Count 168 D (160-400) X10*3/uL MPV 9.9 (9.4-12.4) fL Immature Gran % (Auto) 0.5 H (0.0-0.4) % Neut % (Auto) 77.6 H (45-73) % Lymph % (Auto) 12.4 L (20-40) % Marathon % (Auto) 8.4 (2-11) % Eos % (Auto) 0.9 (0-4) % Baso % (Auto) 0.2 (0-2) % Lymph # (Auto) 0.5 L (1.2-4.9) X10*3/uL Marathon # (Auto) 0.4 (0.1-1.2) X10*3/uL Eos # (Auto) 0.0 (0.0-0.4) X10*3/uL Baso # (Auto) 0.0 (0.0-0.2) X10*3/uL Abs Immat Gran (auto) 0.02 (0.00-0.03) X10*3/uL Absolute Neuts (auto) 3.3 (2.0-8.3) x10*3/uL Absolute Nucleated RBC 0.000 (0.0-0.012) X10*3/uL Nucleated RBC % (auto) 0.0 (0.0-0.2) /100WBC PT (11.1-13.3) SEC INR (0.9-1.1) APTT (26.0-36.8) SEC VBG pH 7.38 (7.32-7.43) VBG pCO2 44 mmHg VBG pO2 49 mmHg VBG HCO3 26 (22-26) mmol/L VBG O2 Saturation 77.0 % VBG Base Excess 1.3 mmol/L Sodium 141 (135-145) mmol/L Potassium 3.8 (3.3-5.1) mmol/L Chloride 110 H (96-108) mmol/L Carbon Dioxide 23 (22-29) mmol/L Anion Gap 12 (12-20) BUN 19 H (9-16) mg/dL Creatinine 0.78 (0.5-1.4) mg/dL Estim Creat Clear Calc 103.1 Estimated GFR > 60 Random Glucose 107 (60-115) mg/dL Lactic Acid (0.5-2.0) mmol/L Lactic Acid F/U @ 2Hr (0.5-2.0) mmol/L Calcium 9.2 D (8.4-10.2) mg/dL Total Bilirubin 0.9 (0.0-1.0) mg/dL AST 13 (5-37) U/L ALT 15 (0-40) U/L Alkaline Phosphatase 72 (39-117) U/L Troponin I High Sens (<3.5-35.0) ng/L B-Natriuretic Peptide (<100) pg/mL Total Protein 7.1 (6.5-8.0) g/dL Albumin 3.5 (3.5-5.0) g/dL Influenza Type A (PCR) NEGATIVE (Negative) Influenza Type B (PCR) NEGATIVE (Negative) RSV RNA Qual (PCR) NEGATIVE (Negative) SARS-CoV-2 RNA (RT-PCR) NEGATIVE (Negative) 12/12/23 Range/Units 09:26 WBC (4.8-10.8) X10*3/uL RBC (4.60-5.80) X10*6/uL Hgb (14.0-18.0) g/dl Hct (42.0-52.0) % MCV (80.0-98.0) fL MCH (27.0-33.0) pg MCHC (31.0-36.0) g/dl RDW (11.0-16.0) % Plt Count (160-400) X10*3/uL MPV (9.4-12.4) fL Immature Gran % (Auto) (0.0-0.4) % Neut % (Auto) (45-73) % Lymph % (Auto) (20-40) % Marathon % (Auto) (2-11) % Eos % (Auto) (0-4) % Baso % (Auto) (0-2) % Lymph # (Auto) (1.2-4.9) X10*3/uL Marathon # (Auto) (0.1-1.2) X10*3/uL Eos # (Auto) (0.0-0.4) X10*3/uL Baso # (Auto) (0.0-0.2) X10*3/uL Abs Immat Gran (auto) (0.00-0.03) X10*3/uL Absolute Neuts (auto) (2.0-8.3) x10*3/uL Absolute Nucleated RBC (0.0-0.012) X10*3/uL Nucleated RBC % (auto) (0.0-0.2) /100WBC PT (11.1-13.3) SEC INR (0.9-1.1) APTT (26.0-36.8) SEC VBG pH (7.32-7.43) VBG pCO2 mmHg VBG pO2 mmHg VBG HCO3 (22-26) mmol/L VBG O2 Saturation % VBG Base Excess mmol/L Sodium (135-145) mmol/L Potassium (3.3-5.1) mmol/L Chloride (96-108) mmol/L Carbon Dioxide (22-29) mmol/L Anion Gap (12-20) BUN (9-16) mg/dL Creatinine (0.5-1.4) mg/dL Estim Creat Clear Calc Estimated GFR Random Glucose (60-115) mg/dL Lactic Acid (0.5-2.0) mmol/L Lactic Acid F/U @ 2Hr 1.1 (0.5-2.0) mmol/L Calcium (8.4-10.2) mg/dL Total Bilirubin (0.0-1.0) mg/dL AST (5-37) U/L ALT (0-40) U/L Alkaline Phosphatase (39-117) U/L Troponin I High Sens (<3.5-35.0) ng/L B-Natriuretic Peptide (<100) pg/mL Total Protein (6.5-8.0) g/dL Albumin (3.5-5.0) g/dL Influenza Type A (PCR) (Negative) Influenza Type B (PCR) (Negative) RSV RNA Qual (PCR) (Negative) SARS-CoV-2 RNA (RT-PCR) (Negative) Independent Interpretation I performed an independent interpretation of an: EKG (EKG SInus tachycardia) Independent Historian Clinical information obtained from an independent historian. History obtained from or confirmed by: Other (Patient ) External Record Review External record reviewed: Other (prior visits) Prescription Management I considered prescription management with: Antibiotic Critical Care Time Critical Care Time Critical Care Time: Yes Total Critical Care Time: 60 Attestation: Patient comes in for possibly COPD exacerbation. Patient placed on CPAP. Patient is not somnolent. Albuterol magnesium Solu-Medrol ordered. Chest x-ray ordered. Discharge Plan Discharge Clinical Impression: Community acquired pneumonia COPD (chronic obstructive pulmonary disease) Qualifiers: COPD type: emphysema Emphysema type: centrilobular Qualified Code(s): J43.2 - Centrilobular emphysema Patient Disposition: Admitted As Inpatient Print Language: Ecuadorean
[2023-12-12] MEDS: methylPREDNISolone Sod Succ 125 MG/2 ML VIAL IVPUSH (06:56)
[2023-12-12] MEDS: Magnesium Sulfate/H2O 2 GM/50 ML PIGGYBACK IV (06:59)
[2023-12-12 07:12] LABS: VBG Base Excess 1.3 mmol/L; VBG HCO3 26 mmol/L (22-26); VBG pCO2 44 mmHg; VBG pH 7.38 (7.32-7.43); VBG pO2 49 mmHg
[2023-12-12 07:15] LABS: INTERNATIONAL NORM RATIO 1.2 (0.9-1.1); Prothrombin Time 14.9 SEC (11.1-13.3)
[2023-12-12 07:16] LABS: Venous Blood Gas Refer to POC result
[2023-12-12 07:17] LABS: Partial Thromboplastin Time 31.5 SEC (26.0-36.8)
[2023-12-12 07:23] LABS: Lactic Acid 2.2 mmol/L (0.5-2.0)
[2023-12-12 07:23] LABS: B Type Natriuretic Peptide 17 pg/mL (<100)
[2023-12-12 07:25] LABS: Troponin-I High Sensitivity < 2.7 ng/L (<3.5-35.0)
[2023-12-12 08:01] LABS: Influenza A PCR NEGATIVE (Negative); Influenza B PCR NEGATIVE (Negative); Resp Syncy Virus RNA Qual PCR NEGATIVE (Negative); SARS COV2 PCR INHOUSE NEGATIVE (Negative)
[2023-12-12] MEDS: Albuterol Sulfate 2.5 MG, Albuterol/Iprat 2.5/0.5MG 3 ML 3 ML INHALE (08:11)
--- NOTE | 2023-12-12 08:13 | PC.NURSE ---
delay in abx administration d/t recollect cultures needed, provider aware.
[2023-12-12] MEDS: 0.9 % Sodium Chloride 1,000 ML 999 ML IV (08:17)
[2023-12-12] MEDS: cefTRIAXone sodium 1 GM in 0.9 % Sodium Chloride 50 ML IV (08:18)
[2023-12-12] MEDS: Azithromycin 500 MG in 0.9 % Sodium Chloride 250 ML 125 MG IV (08:18)
[2023-12-12 08:21] LABS: MANUAL DIFF FLAG NO
[2023-12-12 08:24] LABS: Basophils Percent Auto 0.2 % (0-2); Eosinophils Percent Auto 0.9 % (0-4); Hematocrit 42.7 % (42.0-52.0); Hemoglobin 14.4 g/dl (14.0-18.0); Imm Gran Abs Auto 0.02 X10*3/uL (0.00-0.03); Imm Gran Pct Auto 0.5 % (0.0-0.4); Lymphocytes Absolute Auto 0.5 X10*3/uL (1.2-4.9); Lymphocytes Percent Auto 12.4 % (20-40); Mean Corpuscular HGB Conc 33.7 g/dl (31.0-36.0); Mean Corpuscular Hemoglobin 27.7 pg (27.0-33.0); Mean Corpuscular Volume 82.3 fL (80.0-98.0); Mean Platelet Volume 9.9 fL (9.4-12.4); Monocytes Absolute Auto 0.4 X10*3/uL (0.1-1.2); Monocytes Percent Auto 8.4 % (2-11); Neutrophils Absolute Auto 3.3 x10*3/uL (2.0-8.3); Neutrophils Percent Auto 77.6 % (45-73); Platelet Count 168 X10*3/uL (160-400); Red Blood Count 5.19 X10*6/uL (4.60-5.80); Red Cell Distribution Width 16.3 % (11.0-16.0); White Blood Count 4.3 X10*3/uL (4.8-10.8)
[2023-12-12 08:36] LABS: Alanine Aminotransferase 15 U/L (0-40); Albumin Level 3.5 g/dL (3.5-5.0); Alkaline Phosphatase 72 U/L (39-117); Anion Gap 12 (12-20); Aspartate Amino Transferase 13 U/L (5-37); Bilirubin Total 0.9 mg/dL (0.0-1.0); Blood Urea Nitrogen 19 mg/dL (9-16); Calcium 9.2 mg/dL (8.4-10.2); Carbon Dioxide 23 mmol/L (22-29); Chloride 110 mmol/L (96-108); Creatinine Clr Calc Pharmacy 103.1; Estimated Glomerular Filt Rate > 60; Glucose Random 107 mg/dL (60-115); Potassium 3.8 mmol/L (3.3-5.1); Sodium 141 mmol/L (135-145); Total Protein 7.1 g/dL (6.5-8.0)
[2023-12-12 08:55] LABS: Reflex Lactate? Lactic Acid Added
[2023-12-12] MEDS: Acetaminophen 325 MG TABLET 975 MG PO (09:16)
--- NOTE | 2023-12-12 09:18 | PC.NURSE ---
pt reports neck pain from cpap head piece, pt medicated per AUG.
[2023-12-12 09:41] LABS: ~Lactic Acid-LAB USE ONLY 1.1 mmol/L (0.5-2.0)
--- NOTE | 2023-12-12 12:54 | P.HPHOSP_ITS ---
History of Present Illness Date of Service: 12/12/23 Attending physician on admission: Joe Merritt Chief Complaint: Shortness of breath This is a 68-year-old male with history of COPD who presents to the emergency department with shortness of breath. Patient states he began feeling short of breath overnight. His shortness of breath is associated with a dry cough and fatigue. He denies any associated fever or chills, he denies any recent sick contacts. On arrival he was tachycardic and tachypneic. He was initially placed on CPAP and then converted to 3 L nasal cannula. In the emergency department he had a chest x-ray was was concerning for pneumonia, and he was started on antibiotics. In addition he was treated with breathing treatments and IV steroids. He tested negative for influenza, RSV and COVID-19. Review of Systems 2 Review of Systems: Yes all other systems are reviewed and are negative Constitutional: Constitutional: Denies chills and Denies fever(s) Cardiovascular: Cardiovascular: Denies chest pain and Reports dyspnea Respiratory: Respiratory: Reports cough and Reports dyspnea [facility] Medical History Bipolar 1 disorder Nonischemic cardiomyopathy Ascending aorta dilatation Atrial fibrillation with rapid ventricular response Hypertension Hyperlipidemia COPD (chronic obstructive pulmonary disease) Emphysema lung Pulmonary nodules Opacity of lung on imaging study Nicotine dependence, cigarettes, uncomplicated History of alcohol abuse GERD (gastroesophageal reflux disease) Tubular adenoma of colon Generalized anxiety disorder Depression BPH (benign prostatic hyperplasia) Osteoporosis Edentulous Bilateral tinnitus Compression fracture of T7 vertebra Cervical spondylosis Compression fracture of body of thoracic vertebra Family History Mother Renal failure Father History of depression Brother Colon cancer Surgical History Hx of kyphoplasty History of surgery on left wrist (~03/21/10) Hx of endoscopy Hx of colonoscopy (~02/13/06) Hx of cataract surgery (~07/02/10) History of appendectomy History of gastric surgery Social History Household Members: None Housing: Apartment Are you a primary child care lead teacher to a significant other at home: No Do you presently have visiting nurse or other home services: No Alcohol intake: never Patient Tobacco Use Status: Former Tobacco user Tobacco use type: Cigarette Cigarette Packs Per Day: 0.5 Years Smoked: 55 Smoked in Last 30 Days: No e-Cigarette/Vaping Use: Former Use Second Hand Smoke Exposure: No Use of substances other than those prescribed or required for medical reasons: No Advance Directives: Yes Advance Directives on File: Yes Advance Directives Date on File: 09/02/22 Nutrition Risks: No Nutritional Risk service: No Current occupational status: unemployed and disabled 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 Meds Allergies Allergy/AdvReac Type Severity Reaction Status Date / Time No Known Allergies Allergy Verified 12/12/23 06:38 [No Known Allergies*] Active Medications: Current Medications Acetaminophen (Acetaminophen 325 Mg Tablet) 650 mg PO Q6H PRN PRN Reason: Pain, Mild (Pain Scale 1-3), fever or headache Docusate Sodium (Docusate Sodium 100 Mg Capsule) 100 mg PO DAILY [facility] Enoxaparin Sodium (Enoxaparin Sodium 40 Mg/0.4 Ml Syringe) 40 mg SUBCUT Q24H YESSENIA Sodium Chloride (0.9 % Sodium Chloride Flush 3 Ml Syringe) 3 ml IVFLUSH QSHIFT [facility] Home Medications ?Medication ?Instructions ?Recorded ?Confirmed ?Last Taken ?Type latanoprost 0.005 % eye drops 1 drp ophthalmic (eye) BEDTIME 03/27/20 12/12/23 12/11/23 History albuterol sulfate 90 mcg/actuation 2 puff inhalation Q4-6H PRN 07/31/23 12/12/23 Unknown History aerosol inhaler (Ventolin HFA) wheezing lidocaine 5 % topical patch 1 patch topical DAILY PRN Pain 07/31/23 12/12/23 Unknown History metoclopramide HCl 10 mg tablet 10 mg PO BIDAC 07/31/23 12/12/23 12/11/23 History quetiapine 300 mg tablet 300 mg PO BEDTIME 07/31/23 12/12/23 12/11/23 History simvastatin 20 mg tablet 20 mg PO QPM 07/31/23 12/12/23 12/11/23 History trazodone 100 mg tablet 100 - 200 mg PO BEDTIME PRN Sleep 09/26/23 12/12/23 Unknown History ferrous gluconate 324 mg (38 mg 324 mg PO DAILY 10/24/23 12/12/23 12/11/23 History iron) tablet furosemide 20 mg tablet 20 mg PO DAILY 10/24/23 12/12/23 12/11/23 History ascorbic acid (vitamin C) 250 mg 250 mg PO DAILY 12/12/23 12/12/23 12/11/23 History tablet morphine 15 mg tablet,extended 15 mg PO BID 12/12/23 12/12/23 12/11/23 History release sotalol 80 mg tablet 80 mg PO Q12H 12/12/23 12/12/23 12/11/23 History Physical Exam 2 Vital Signs and Narrative: Vital Signs: Last Vital Signs Temp 98.2 F 12/12/23 12:00 Pulse 96 12/12/23 12:00 Resp 18 12/12/23 10:11 BP 97/71 12/12/23 12:00 Pulse Ox 93 12/12/23 12:00 O2 Del Method Nasal Cannula 12/12/23 12:00 O2 Flow Rate 3 12/12/23 12:00 FiO2 40 12/12/23 08:02 BMI result Body Mass Index 29.9 Const: General: cooperative, no acute distress, alert and awake Nutritional Appearance: overweight Orientation/consciousness: patient oriented x3 Resp: Other: Bilateral expiratory wheezing, scattered rhonchi Effort & Inspection: normal respiratory effort, able to speak in complete sentences, no respiratory distress and no use of accessory muscles Cardio: Rate: regular rate GI: Inspection: No distended Palpation (GI): Soft to palpation Neuro: General: patient oriented x3, moves all extremities and CN's II-XI intact bilaterally Extrem: General: Yes no pedal edema Results Labs 12/12/23 08:13 12/12/23 08:13 Labs: Laboratory Results - last 24 hr 12/12/23 12/12/23 12/12/23 06:49 06:50 06:53 MCV MCH MCHC RDW Plt Count MPV Immature Gran % (Auto) Neut % (Auto) Lymph % (Auto) [place] % (Auto) Eos % (Auto) Baso % (Auto) Lymph # (Auto) [place] # (Auto) Eos # (Auto) Baso # (Auto) Abs Immat Gran (auto) Absolute Neuts (auto) Absolute Nucleated RBC Nucleated RBC % (auto) PT 14.9 H INR 1.2 H APTT 31.5 VBG pH VBG pCO2 VBG pO2 VBG HCO3 VBG O2 Saturation VBG Base Excess Anion Gap Estim Creat Clear Calc Estimated GFR Random Glucose Lactic Acid 2.2 H* Lactic Acid F/U @ 2Hr Calcium Total Bilirubin AST ALT Alkaline Phosphatase Troponin I High Sens < 2.7 B-Natriuretic Peptide 17 Total Protein Albumin Influenza Type A (PCR) Influenza Type B (PCR) RSV RNA Qual (PCR) SARS-CoV-2 RNA (RT-PCR) 12/12/23 12/12/23 12/12/23 07:04 07:05 08:13 MCV 82.3 MCH 27.7 MCHC 33.7 RDW 16.3 H Plt Count 168 D MPV 9.9 Immature Gran % (Auto) 0.5 H Neut % (Auto) 77.6 H Lymph % (Auto) 12.4 L [place] % (Auto) 8.4 Eos % (Auto) 0.9 Baso % (Auto) 0.2 Lymph # (Auto) 0.5 L [place] # (Auto) 0.4 Eos # (Auto) 0.0 Baso # (Auto) 0.0 Abs Immat Gran (auto) 0.02 Absolute Neuts (auto) 3.3 Absolute Nucleated RBC 0.000 Nucleated RBC % (auto) 0.0 PT INR APTT VBG pH 7.38 VBG pCO2 44 VBG pO2 49 VBG HCO3 26 VBG O2 Saturation 77.0 VBG Base Excess 1.3 Anion Gap 12 Estim Creat Clear Calc 103.1 Estimated GFR > 60 Random Glucose 107 Lactic Acid Lactic Acid F/U @ 2Hr Calcium 9.2 D Total Bilirubin 0.9 AST 13 ALT 15 Alkaline Phosphatase 72 Troponin I High Sens B-Natriuretic Peptide Total Protein 7.1 Albumin 3.5 Influenza Type A (PCR) NEGATIVE Influenza Type B (PCR) NEGATIVE RSV RNA Qual (PCR) NEGATIVE SARS-CoV-2 RNA (RT-PCR) NEGATIVE 12/12/23 09:26 MCV MCH MCHC RDW Plt Count MPV Immature Gran % (Auto) Neut % (Auto) Lymph % (Auto) [place] % (Auto) Eos % (Auto) Baso % (Auto) Lymph # (Auto) [place] # (Auto) Eos # (Auto) Baso # (Auto) Abs Immat Gran (auto) Absolute Neuts (auto) Absolute Nucleated RBC Nucleated RBC % (auto) PT INR APTT VBG pH VBG pCO2 VBG pO2 VBG HCO3 VBG O2 Saturation VBG Base Excess Anion Gap Estim Creat Clear Calc Estimated GFR Random Glucose Lactic Acid Lactic Acid F/U @ 2Hr 1.1 Calcium Total Bilirubin AST ALT Alkaline Phosphatase Troponin I High Sens B-Natriuretic Peptide Total Protein Albumin Influenza Type A (PCR) Influenza Type B (PCR) RSV RNA Qual (PCR) SARS-CoV-2 RNA (RT-PCR) Imaging Radiologist's Impressions: Impressions Chest X-Ray 12/12/23 07:55 IMPRESSION: Patchy opacities in the right mid and lower lung. Additional hazy opacities in the left lung base.Findings are concerning for infectious/inflammatory etiology. Assessment and Plan (1) Community acquired pneumonia: Status: Acute Plan This is a 68-year-old male with history of atrial fibrillation on Eliquis, nonischemic cardiomyopathy, pulmonary nodule, BPH, peptic ulcer disease who presents to the emergency department with 1 day history of shortness of breath requiring CPAP initially in the emergency room found to have pneumonia and COPD exacerbation Acute respiratory failure with hypoxia Initially requiring CPAP, now on 3 L nasal cannula Does not use supplemental oxygen at baseline Due to exacerbation of COPD as well as pneumonia Sepsis due to COPD exacerbation and pneumonia Met sirs criteria with tachycardia, tachypnea, mild elevation of lactic acid which resolved with IV fluid Blood cultures pending Continue treatment for pneumonia with ceftriaxone and doxycycline Continue treatment for exacerbation of COPD with steroids and breathing treatments Nonischemic cardiomyopathy Hold Lasix due to soft BP Appears euvolemic. BNP 17 Resume Lasix as blood pressure allows Paroxysmal atrial fibrillation In sinus rhythm, heart rate control Continue sotalol Avoid QT prolonging medication. Hold baseline Seroquel Continue anticoagulation with Eliquis Peptic ulcer disease Continue PPI, sucralfate Chronic pain Continue baseline medication Attending Dr. Merritt Will likely require 2 midnight stay in the hospital for management of COPD exacerbation and pneumonia Quality Stroke Does the patient have a stroke diagnosis?: No VTE Prior VTE?: No VTE Risk Level:: Medical - moderate - high VTE Device Contraindication: N/A - Device Ordered VTE Drug Contraindication: N/A - Med Ordered
--- NOTE | 2023-12-12 13:07 | PHA.MEDREC ---
Pharmacy Consult ? Medication Reconciliation Pharmacy has completed the medication reconciliation. Patient unable to confirm his medications, said his sister Claudia helps him with his meds. Spoke with Claudia over the phone and she read off of his medication bottles. Edvin confirmed sotalol was last picked up on 09/02/23 for a 90 DS - 80mg q12h. Claudia reports patient last took his medications yesterday, including his Tymlos injection, patient only took Trelegy today.
[2023-12-12] MEDS: Sucralfate Oral Suspension 1 GM/10 ML ORAL.SUSP PO (14:26)
[2023-12-12 14:42] LABS: Magnesium 2.4 mg/dL (1.6-2.6)
[2023-12-12] MEDS: Albuterol/Iprat 2.5/0.5MG 3 ML AMPUL.NEB INHALE ×2 (15:09→18:54)
[2023-12-12] MEDS: 0.9 % Sodium Chloride Flush 3 ML SYRINGE IVFLUSH (15:37)
[2023-12-12] MEDS: Omeprazole 20 MG CAPSULE.DR PO (15:37)
[2023-12-12] MEDS: Acetaminophen 325 MG TABLET 650 MG PO (21:16)
[2023-12-12] MEDS: Apixaban 5 MG TABLET PO (21:17)
[2023-12-12] MEDS: Sotalol HCL 80 MG TABLET PO (21:17)
[2023-12-12] MEDS: methylPREDNISolone Sod Succ 40 MG/ML VIAL IVPUSH (21:18)
[2023-12-13] VITALS (10 sets, daily range): BP systolic 99–126; BP diastolic 68–87; PULSE 59–102; RESP 18–20; TEMP 36.4–37.4; O2SAT 90–98
--- NOTE | 2023-12-13 00:12 | PC.NURSE ---
193 EKG obtained due to abnormal rhythm noted on monitor. HR elevated 110's-130's not sustained, and pt denies c/o discomfort. results of EKG reported to md with Afib RVR noted. 2nd EKG obtained per md shortly afterwards. Sotalol restarted due to decrease in QTc, with 3rd EKG obtained 2 hrs after administration of sotalol. md aware of results.
[2023-12-13 07:36] LABS: MANUAL DIFF FLAG NO
[2023-12-13 07:45] LABS: Basophils Percent Auto 0.2 % (0-2); Hematocrit 36.8 % (42.0-52.0); Hemoglobin 12.2 g/dl (14.0-18.0); Imm Gran Abs Auto 0.15 X10*3/uL (0.00-0.03); Imm Gran Pct Auto 1.1 % (0.0-0.4); Lymphocytes Percent Auto 7.1 % (20-40); Mean Corpuscular HGB Conc 33.2 g/dl (31.0-36.0); Mean Corpuscular Hemoglobin 27.5 pg (27.0-33.0); Mean Corpuscular Volume 83.1 fL (80.0-98.0); Mean Platelet Volume 9.9 fL (9.4-12.4); Monocytes Absolute Auto 0.6 X10*3/uL (0.1-1.2); Monocytes Percent Auto 4.6 % (2-11); Platelet Count 184 X10*3/uL (160-400); Red Blood Count 4.43 X10*6/uL (4.60-5.80); Red Cell Distribution Width 16.7 % (11.0-16.0); White Blood Count 13.8 X10*3/uL (4.8-10.8)
[2023-12-13] MEDS: Albuterol/Iprat 2.5/0.5MG 3 ML AMPUL.NEB INHALE ×3 (07:56→19:00)
[2023-12-13 08:05] LABS: Anion Gap 12 (12-20); Blood Urea Nitrogen 18 mg/dL (9-16); Calcium 8.3 mg/dL (8.4-10.2); Carbon Dioxide 21 mmol/L (22-29); Chloride 109 mmol/L (96-108); Creatinine Clr Calc Pharmacy 111.7; Estimated Glomerular Filt Rate > 60; Glucose Random 131 mg/dL (60-115); Potassium 3.8 mmol/L (3.3-5.1); Sodium 138 mmol/L (135-145)
--- NOTE | 2023-12-13 08:52 | ECG_ITS ---
Test Reason : Chest pain Blood Pressure : / mmHG Vent. Rate : 095 BPM Atrial Rate : 000 BPM P-R Int : 000 ms QRS Dur : 088 ms QT Int : 370 ms P-R-T Axes : 000 060 076 degrees QTc Int : 464 ms Atrial fibrillation with premature ventricular or aberrantly conducted complexes Nonspecific T wave abnormality Abnormal ECG When compared to the previous EKG of No significant changes seen Referred By: Airam Rodgers Electronically Signed By:ZULEMA JORDAN MD
--- NOTE | 2023-12-13 09:48 | MHC.CM.PN ---
CM met with Patient at bedside with the assist of a [facility] and addressed IMM with Patient(original was given to Patient and a copy has been placed on the chart). Patient lives alone in an apartment and he uses a cane/walker & W/c to assist with mobility. Patient has a [employer] 2hours/day and home/resume said services is the goal. CM has initiated and will follow for dc planning. PCP is Dr. Madrigal and Patient's Sister/Kim is the HIGH SCHOOL PROFESSIONAL & HCP.
[2023-12-13] MEDS: methylPREDNISolone Sod Succ 40 MG/ML VIAL IVPUSH ×2 (09:56→20:48)
[2023-12-13] MEDS: 0.9 % Sodium Chloride Flush 3 ML SYRINGE IVFLUSH ×2 (09:56→15:54)
[2023-12-13] MEDS: Omeprazole 20 MG CAPSULE.DR PO ×2 (09:56→15:52)
[2023-12-13] MEDS: Ascorbic Acid 250 MG TABLET PO (09:57)
[2023-12-13] MEDS: Morphine Sulfate ER 15 MG TABLET.ER PO ×2 (09:57→20:49)
[2023-12-13] MEDS: Docusate Sodium 100 MG CAPSULE PO (09:57)
[2023-12-13] MEDS: Apixaban 5 MG TABLET PO ×2 (09:57→20:49)
[2023-12-13] MEDS: Lidocaine 4 % Patch ADH..PATCH 1 PATCH TRANSDERMA (09:57)
[2023-12-13] MEDS: Ferrous Sulfate 324 MG TABLET.DR PO (09:57)
[2023-12-13] MEDS: Fluticasone/Umeclidinium/Vilanterol 100/62.5/25 BLST.W.DEV 1 PUFF INHALE (11:21)
--- NOTE | 2023-12-13 11:59 | P.CONCA_ITS ---
History of Present Illness History of Present Illness Date of Service: 12/13/23 Chief complaint: PNA Narrative: [age] year gentleman who follows with Dr. Francis and has background history of nonischemic cardiomyopathy and paroxysmal atrial fibrillation for which he has been on sotalol 80 mg twice a day. He is also on Eliquis 5 mg twice a day. He was not feeling well and was getting shortness of breath and came to the emergency department. He was diagnosed with pneumonia. His hypoxic and is on supplemental oxygen. Initially was in sinus rhythm but developed atrial fibrillation on December 11 at 18:00. He still has been in AFib since then. He was apparently given azithromycin in the ER and developed some prolongation of QT interval and sotalol was held. His QT intervals have improved at this point. He is denying any palpitations. Overall he is feeling better than when he presented to the ER yesterday. No peripheral edema or signs of heart failure. [facility] Past Medical History Medical History Bipolar 1 disorder Nonischemic cardiomyopathy Ascending aorta dilatation Atrial fibrillation with rapid ventricular response Hypertension Hyperlipidemia COPD (chronic obstructive pulmonary disease) Emphysema lung Pulmonary nodules Opacity of lung on imaging study Nicotine dependence, cigarettes, uncomplicated History of alcohol abuse GERD (gastroesophageal reflux disease) Tubular adenoma of colon Generalized anxiety disorder Depression BPH (benign prostatic hyperplasia) Osteoporosis Edentulous Bilateral tinnitus Compression fracture of T7 vertebra Cervical spondylosis Compression fracture of body of thoracic vertebra Family History Family History Mother Renal failure Father History of depression Brother Colon cancer Surgical History Surgical History Hx of kyphoplasty History of surgery on left wrist (~03/21/10) Hx of endoscopy Hx of colonoscopy (~02/13/06) Hx of cataract surgery (~07/02/10) History of appendectomy History of gastric surgery Social History Social History Household Members: Significant Other Housing: House Are you a primary child care associate to a significant other at home: No Do you presently have visiting nurse or other home services: No Alcohol intake: never Patient Tobacco Use Status: Former Tobacco user Tobacco use type: Cigarette Cigarette Packs Per Day: 0.5 Years Smoked: 55 Smoked in Last 30 Days: No e-Cigarette/Vaping Use: Former Use Patient Interested in Nicotine Replacement: No Patient Given Instructions on How to Stop Smoking: No Second Hand Smoke Exposure: No Use of substances other than those prescribed or required for medical reasons: No Currently Displaying Signs/Symptoms of Drug Intoxication Withdrawal: No Have you been hit, kicked, punched, or otherwise hurt by someone within the past year? 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 Meds Allergies Allergy/AdvReac Type Severity Reaction Status Date / Time No Known Allergies Allergy Verified 12/12/23 06:38 [No Known Allergies*] Active Medications: Current Medications Acetaminophen (Acetaminophen 325 Mg Tablet) 650 mg PO Q6H PRN PRN Reason: Pain, Mild (Pain Scale 1-3), fever or headache Last Admin: 12/12/23 21:16 Dose: 650 mg Albuterol Sulfate (Albuterol Sulfate (0.083%) 2.5 Mg/3 Ml Vial.Neb) 2.5 mg INHALE RQ4H PRN PRN Reason: Shortness of Breath/Wheezing Albuterol/Ipratropium (Albuterol/Iprat 2.5/0.5mg 3 Ml Ampul.Neb) 3 ml INHALE RQ6H WHILE AWAKE [facility] Last Admin: 12/13/23 07:56 Dose: 3 ml Apixaban (Apixaban 5 Mg Tablet) 5 mg PO BID [facility] Last Admin: 12/13/23 09:57 Dose: 5 mg Ascorbic Acid (Ascorbic Acid 250 Mg Tablet) 250 mg PO DAILY [facility] Last Admin: 12/13/23 09:57 Dose: 250 mg Atorvastatin Calcium (Atorvastatin Calcium 10 Mg Tablet) 10 mg PO BEDTIME [facility] Cyclobenzaprine HCl (Cyclobenzaprine Hcl 10 Mg Tablet) 10 mg PO TID PRN PRN Reason: muscle spasm Docusate Sodium (Docusate Sodium 100 Mg Capsule) 100 mg PO DAILY [facility] Last Admin: 12/13/23 09:57 Dose: 100 mg Famotidine (Famotidine 20 Mg Tablet) 40 mg PO BEDTIME PRN PRN Reason: for heartburn Ferrous Sulfate (Ferrous Sulfate 324 Mg Tablet.) 324 mg PO DAILY [facility] Last Admin: 12/13/23 09:57 Dose: 324 mg Fluticasone/Umeclidinium/Vilanterol (Fluticasone/Umeclidinium/Vilanterol 100/62.5/25 Blst.W.Dev) 1 puff INHALE DAILY [facility] Last Admin: 12/13/23 11:21 Dose: 1 puff Ceftriaxone Sodium 1 gm/ (Sodium Chloride) 50 mls @ 100 mls/hr IV Q24H [facility] Doxycycline Hyclate 100 mg/ (Sodium Chloride) 250 mls @ 166.67 mls/hr IV Q12H [facility] Latanoprost (Latanoprost 0.005 % Ophth Evelyn 2.5 Ml Drops) 1 drop EYE-BOTH BEDTIME [facility] Last Admin: 12/12/23 21:00 Dose: Not Given Lidocaine (Lidocaine 4 % Patch Adh..Patch) 1 patch TRANSDERMA DAILY [facility] Last Admin: 12/13/23 09:57 Dose: 1 patch Methylprednisolone Sodium Succinate (Methylprednisolone Sod Succ 40 Mg/Ml Vial) 40 mg IVPUSH Q12H [facility] Last Admin: 12/13/23 09:56 Dose: 40 mg Morphine Sulfate (Morphine Sulfate Er 15 Mg Tablet.Er) 15 mg PO BID [facility] Last Admin: 12/13/23 09:57 Dose: 15 mg Non-Formulary Medication (Linaclotide [Linzess]) 145 mcg PO DAILY [facility] Omeprazole (Omeprazole 20 Mg Capsule.) 20 mg PO BID@0630,1630 [facility] Last Admin: 12/13/23 09:56 Dose: 20 mg Sodium Chloride (0.9 % Sodium Chloride Flush 3 Ml Syringe) 3 ml IVFLUSH QSHIFT [facility] Last Admin: 12/13/23 09:56 Dose: 3 ml Sotalol HCl (Sotalol Hcl 80 Mg Tablet) 80 mg PO BID@0800,2000 [facility] Last Admin: 12/12/23 21:17 Dose: 80 mg Sucralfate (Sucralfate Oral Suspension 1 Gm/10 Ml Oral.Susp) 1 gm PO DAILY@1200 [facility] Last Admin: 12/12/23 14:26 Dose: 1 gm Home Medications ?Medication ?Instructions ?Recorded ?Confirmed ?Last Taken ?Type latanoprost 0.005 % eye drops 1 drp ophthalmic (eye) BEDTIME 03/27/20 12/12/23 12/11/23 History albuterol sulfate 90 mcg/actuation 2 puff inhalation Q4-6H PRN 07/31/23 12/12/23 Unknown History aerosol inhaler (Ventolin HFA) wheezing lidocaine 5 % topical patch 1 patch topical DAILY PRN Pain 07/31/23 12/12/23 Unknown History metoclopramide HCl 10 mg tablet 10 mg PO BIDAC 07/31/23 12/12/23 12/11/23 History quetiapine 300 mg tablet 300 mg PO BEDTIME 07/31/23 12/12/23 12/11/23 History simvastatin 20 mg tablet 20 mg PO QPM 07/31/23 12/12/23 12/11/23 History trazodone 100 mg tablet 100 - 200 mg PO BEDTIME PRN Sleep 09/26/23 12/12/23 Unknown History ferrous gluconate 324 mg (38 mg 324 mg PO DAILY 10/24/23 12/12/23 12/11/23 History iron) tablet furosemide 20 mg tablet 20 mg PO DAILY 10/24/23 12/12/23 12/11/23 History ascorbic acid (vitamin C) 250 mg 250 mg PO DAILY 12/12/23 12/12/23 12/11/23 History tablet morphine 15 mg tablet,extended 15 mg PO BID 12/12/23 12/12/23 12/11/23 History release sotalol 80 mg tablet 80 mg PO Q12H 12/12/23 12/12/23 12/11/23 History Physical Exam 2 Vital Signs: Vital Signs: Last Vital Signs Temp 97.7 F 12/13/23 11:22 Pulse 82 12/13/23 11:23 Resp 18 12/13/23 11:23 BP 109/77 12/13/23 11:22 Pulse Ox 95 12/13/23 11:22 O2 Del Method Nasal Cannula 12/13/23 07:56 O2 Flow Rate 3 06/22/24 07:56 FiO2 40 12/12/23 08:02 BMI result Body Mass Index 29.9 GENERAL APPEARANCE: in no acute distress, pleasant. on supplemental O2. NECK: no carotid bruit, mild jugular venous distention. SKIN: no suspicious lesions, warm and dry. HEART: no murmurs, irregular rate and rhythm. LUNGS: crackles right lung ABDOMEN: soft, nontender. EXTREMITIES: no edema. PERIPHERAL PULSES: equal. NEUROLOGIC: No gross deficits, AAO X 3 Objective Labs and Meds 12/13/23 07:10 12/13/23 07:10 Lab results: Laboratory Results - last 24 hr 12/12/23 12/13/23 08:13 07:10 WBC 13.8 H RBC 4.43 L Hgb 12.2 L Hct 36.8 L MCV 83.1 MCH 27.5 MCHC 33.2 RDW 16.7 H Plt Count 184 MPV 9.9 Immature Gran % (Auto) 1.1 H Neut % (Auto) 87.0 H Lymph % (Auto) 7.1 L [place] % (Auto) 4.6 Eos % (Auto) 0.0 Baso % (Auto) 0.2 Lymph # (Auto) 1.0 L [place] # (Auto) 0.6 Eos # (Auto) 0.0 Baso # (Auto) 0.0 Abs Immat Gran (auto) 0.15 H Absolute Neuts (auto) 12.0 H Absolute Nucleated RBC 0.000 Nucleated RBC % (auto) 0.0 Sodium 138 Potassium 3.8 Chloride 109 H Carbon Dioxide 21 L Anion Gap 12 BUN 18 H Creatinine 0.72 Estim Creat Clear Calc 111.7 Estimated GFR > 60 Random Glucose 131 H Calcium 8.3 L D Magnesium 2.4 2.0 Assessment and Plan (1) Community acquired pneumonia: Status: Acute (2) Nonischemic cardiomyopathy: Status: Acute (3) Atrial fibrillation with rapid ventricular response: Status: Acute Plan 68-year-old gentleman with history of nonischemic cardiomyopathy and paroxysmal atrial fibrillation presenting for pneumonia. He has developed AFib episode and is currently in AFib at this point. Denying any symptoms currently. He has mild JVD on examination. He was given azithromycin in the ER and probably that led to some QT prolongation. This has since been stopped. He should not be given azithromycin, levofloxacin and his home dose of Seroquel and trazodone should also be discontinued at discharge. Apparently he is also on Reglan 10 mg twice a day. All his medications can cause multiple interactions and can cause QT prolongation. Currently QT interval is okay. Resume sotalol and hopefully breaks out of atrial fibrillation. If he is difficult to control then we will add different medication or consider cardioversion. Anticoagulation should not be stopped. Thank you for allowing me to participate in the care of your patient. Please feel free to contact me if you have any questions. Procedures Date of Service Date of Service: 12/13/23
--- NOTE | 2023-12-13 12:42 | P.PNIM_ITS ---
Subjective Subjective Date of Service: 12/13/23 Physical Exam 2 Vital Signs: Vital Signs: Last Vital Signs Temp 97.7 F 12/13/23 11:22 Pulse 82 12/13/23 11:23 Resp 18 12/13/23 11:23 BP 109/77 12/13/23 11:22 Pulse Ox 95 12/13/23 11:22 O2 Del Method Nasal Cannula 12/13/23 07:56 O2 Flow Rate 3 12/13/23 07:56 FiO2 40 12/12/23 08:02 BMI result Body Mass Index 29.9 Objective Data Active Medications Acetaminophen (Acetaminophen 325 Mg Tablet) 650 mg PO Q6H PRN PRN Reason: Pain, Mild (Pain Scale 1-3), fever or headache Last Admin: 12/12/23 21:16 Dose: 650 mg Documented By: FREDDY Albuterol Sulfate (Albuterol Sulfate (0.083%) 2.5 Mg/3 Ml Vial.Neb) 2.5 mg INHALE RQ4H PRN PRN Reason: Shortness of Breath/Wheezing Albuterol/Ipratropium (Albuterol/Iprat 2.5/0.5mg 3 Ml Ampul.Neb) 3 ml INHALE RQ6H WHILE AWAKE [facility] Last Admin: 12/13/23 07:56 Dose: 3 ml Documented By: ERICKSON Apixaban (Apixaban 5 Mg Tablet) 5 mg PO BID [facility] Last Admin: 12/13/23 09:57 Dose: 5 mg Documented By: STEVE Ascorbic Acid (Ascorbic Acid 250 Mg Tablet) 250 mg PO DAILY [facility] Last Admin: 12/13/23 09:57 Dose: 250 mg Documented By: STEVE Atorvastatin Calcium (Atorvastatin Calcium 10 Mg Tablet) 10 mg PO BEDTIME [facility] Cyclobenzaprine HCl (Cyclobenzaprine Hcl 10 Mg Tablet) 10 mg PO TID PRN PRN Reason: muscle spasm Docusate Sodium (Docusate Sodium 100 Mg Capsule) 100 mg PO DAILY [facility] Last Admin: 12/13/23 09:57 Dose: 100 mg Documented By: STEVE Famotidine (Famotidine 20 Mg Tablet) 40 mg PO BEDTIME PRN PRN Reason: for heartburn Ferrous Sulfate (Ferrous Sulfate 324 Mg Tablet.) 324 mg PO DAILY [facility] Last Admin: 12/13/23 09:57 Dose: 324 mg Documented By: STEVE Fluticasone/Umeclidinium/Vilanterol (Fluticasone/Umeclidinium/Vilanterol 100/62.5/25 Blst.W.Dev) 1 puff INHALE DAILY [facility] Last Admin: 12/13/23 11:21 Dose: 1 puff Documented By: ETHAN Ceftriaxone Sodium 1 gm/ (Sodium Chloride) 50 mls @ 100 mls/hr IV Q24H [facility] Doxycycline Hyclate 100 mg/ (Sodium Chloride) 250 mls @ 166.67 mls/hr IV Q12H [facility] Latanoprost (Latanoprost 0.005 % Ophth Evelyn 2.5 Ml Drops) 1 drop EYE-BOTH BEDTIME [facility] Last Admin: 12/12/23 21:00 Dose: Not Given Documented By: FREDDY Non-Admin Reason: Med Not Available Lidocaine (Lidocaine 4 % Patch Adh..Patch) 1 patch TRANSDERMA DAILY [facility] Last Admin: 12/13/23 09:57 Dose: 1 patch Documented By: STEVE Methylprednisolone Sodium Succinate (Methylprednisolone Sod Succ 40 Mg/Ml Vial) 40 mg IVPUSH Q12H [facility] Last Admin: 12/13/23 09:56 Dose: 40 mg Documented By: STEVE Morphine Sulfate (Morphine Sulfate Er 15 Mg Tablet.Er) 15 mg PO BID [facility] Last Admin: 12/13/23 09:57 Dose: 15 mg Documented By: STEVE Non-Formulary Medication (Linaclotide [Linzess]) 145 mcg PO DAILY [facility] Omeprazole (Omeprazole 20 Mg Capsule.) 20 mg PO BID@0630,1630 [facility] Last Admin: 12/13/23 09:56 Dose: 20 mg Documented By: STEVE Sodium Chloride (0.9 % Sodium Chloride Flush 3 Ml Syringe) 3 ml IVFLUSH QSHIFT [facility] Last Admin: 12/13/23 09:56 Dose: 3 ml Documented By: STEVE Sotalol HCl (Sotalol Hcl 80 Mg Tablet) 80 mg PO BID@0800,2000 [facility] Last Admin: 12/12/23 21:17 Dose: 80 mg Documented By: FREDDY Sucralfate (Sucralfate Oral Suspension 1 Gm/10 Ml Oral.Susp) 1 gm PO DAILY@1200 [facility] Last Admin: 12/12/23 14:26 Dose: 1 gm Documented By: DANIELA Labs 12/13/23 07:10 12/13/23 07:10 Labs: Laboratory Results - last 24 hr 12/12/23 12/13/23 08:13 07:10 MCV 83.1 MCH 27.5 MCHC 33.2 RDW 16.7 H Plt Count 184 MPV 9.9 Immature Gran % (Auto) 1.1 H Neut % (Auto) 87.0 H Lymph % (Auto) 7.1 L [place] % (Auto) 4.6 Eos % (Auto) 0.0 Baso % (Auto) 0.2 Lymph # (Auto) 1.0 L [place] # (Auto) 0.6 Eos # (Auto) 0.0 Baso # (Auto) 0.0 Abs Immat Gran (auto) 0.15 H Absolute Neuts (auto) 12.0 H Absolute Nucleated RBC 0.000 Nucleated RBC % (auto) 0.0 Anion Gap 12 Estim Creat Clear Calc 111.7 Estimated GFR > 60 Random Glucose 131 H Calcium 8.3 L D Magnesium 2.4 2.0 Microbiology Microbiology Results: Microbiology 12/12/23 08:13 Blood Culture - Preliminary Blood - Venous No growth after 24 hours. 12/12/23 06:51 Blood Culture - Preliminary Blood - Venous No growth after 24 hours. Assessment and Plan (1) Community acquired pneumonia: Status: Acute (2) Nonischemic cardiomyopathy: Status: Acute Plan This is a 68-year-old male with history of atrial fibrillation on Eliquis, nonischemic cardiomyopathy, pulmonary nodule, BPH, peptic ulcer disease who presents to the emergency department with 1 day history of shortness of breath requiring CPAP initially in the emergency room found to have pneumonia and COPD exacerbation Paroxysmal atrial fibrillation in afib Continue sotalol, was on hold due to prolonged QTC Avoid QT prolonging medication. Hold baseline Seroquel Continue anticoagulation with Eliquis Seen by cardiology> avoi QT prolonging drugs including home doses of seroquel and trazadone Acute respiratory failure with hypoxia due to exacerbation of COPD, pneumonia Initially requiring CPAP, now on 3 L nasal cannula Does not use supplemental oxygen at baseline Sepsis due to COPD exacerbation and pneumonia Met sirs criteria with tachycardia, tachypnea, mild elevation of lactic acid which resolved with IV fluid Blood cultures neg Continue treatment for pneumonia with ceftriaxone and doxycycline Continue treatment for exacerbation of COPD with steroids and breathing treatments Nonischemic cardiomyopathy Hold Lasix due to soft BP, resume as bp allows Appears euvolemic. BNP 17 Peptic ulcer disease Continue PPI, sucralfate Chronic pain Continue baseline medication DVT Eliquis Attending Dr. Lyles Full code continue stay in the hospital for management of COPD exacerbation and pneumonia Quality Stroke Does the patient have a stroke diagnosis?: No VTE Prior VTE?: No VTE Risk Level:: Medical - moderate - high VTE Device Contraindication: N/A - Device Ordered VTE Drug Contraindication: N/A - Med Ordered
[2023-12-13] MEDS: Sotalol HCL 80 MG TABLET PO ×2 (12:48→22:14)
[2023-12-13] MEDS: Doxycycline Hyclate 100 MG in 0.9 % Sodium Chloride 250 ML 166.67 MG IV (12:48)
[2023-12-13] MEDS: Sucralfate Oral Suspension 1 GM/10 ML ORAL.SUSP PO (12:48)
[2023-12-13] MEDS: cefTRIAXone sodium 1 GM in 0.9 % Sodium Chloride 50 ML IV (12:49)
[2023-12-13] MEDS: Atorvastatin Calcium 10 MG TABLET PO (20:49)
--- NOTE | 2023-12-13 21:59 | ECG_ITS ---
Test Reason : meds Blood Pressure : / mmHG Vent. Rate : 078 BPM Atrial Rate : 078 BPM P-R Int : 152 ms QRS Dur : 076 ms QT Int : 424 ms P-R-T Axes : 050 049 054 degrees QTc Int : 483 ms Normal sinus rhythm Nonspecific ST abnormality Prolonged QT Abnormal ECG When compared to the previous EKG of Normal sinus rhythm has replaced Atrial fibrillation Referred By: Airam Rodgers Electronically Signed By:ZULEMA JORDAN MD
[2023-12-13] MEDS: Latanoprost 0.005 % Ophth Sol 2.5 ML DROPS 1 DROP EYE-BOTH (22:15)
[2023-12-14] VITALS (9 sets, daily range): BP systolic 113–136; BP diastolic 81–92; PULSE 60–79; RESP 16–20; TEMP 36.2–36.9; O2SAT 90–98
[2023-12-14] MEDS: Doxycycline Hyclate 100 MG in 0.9 % Sodium Chloride 250 ML 166.67 MG IV ×2 (01:40→12:07)
[2023-12-14] MEDS: guaiFENesin 200 MG/10 ML 10 ML LIQUID PO (02:23)
[2023-12-14] MEDS: Acetaminophen 325 MG TABLET 650 MG PO ×2 (02:24→21:44)
[2023-12-14] MEDS: Famotidine 20 MG TABLET 40 MG PO (02:26)
[2023-12-14] MEDS: methylPREDNISolone Sod Succ 40 MG/ML VIAL IVPUSH ×2 (06:32→18:28)
[2023-12-14] MEDS: Omeprazole 20 MG CAPSULE.DR PO ×2 (06:32→17:19)
[2023-12-14 07:15] LABS: Anion Gap 9 (12-20); Blood Urea Nitrogen 23 mg/dL (9-16); Calcium 8.1 mg/dL (8.4-10.2); Carbon Dioxide 23 mmol/L (22-29); Chloride 110 mmol/L (96-108); Creatinine Clr Calc Pharmacy 121.8; Estimated Glomerular Filt Rate > 60; Glucose Random 141 mg/dL (60-115); Magnesium 2.1 mg/dL (1.6-2.6); Potassium 4.2 mmol/L (3.3-5.1); Sodium 138 mmol/L (135-145)
[2023-12-14] MEDS: Fluticasone/Umeclidinium/Vilanterol 100/62.5/25 BLST.W.DEV 1 PUFF INHALE (07:48)
[2023-12-14] MEDS: Albuterol/Iprat 2.5/0.5MG 3 ML AMPUL.NEB INHALE ×3 (07:48→19:33)
--- NOTE | 2023-12-14 08:42 | P.PNIM_ITS ---
Subjective Subjective Date of Service: 12/14/23 Review of Systems Follow afib rvr, resp failure, copd, pna feeling better but having dyspnea on exertion Physical Exam 2 Vital Signs: Vital Signs: Last Vital Signs Temp 97.1 F 12/14/23 08:00 Pulse 60 12/14/23 08:00 Resp 20 12/14/23 08:00 BP 129/89 12/14/23 08:00 Pulse Ox 97 12/14/23 08:00 O2 Del Method Nasal Cannula 12/14/23 08:00 O2 Flow Rate 4 12/14/23 08:00 FiO2 40 12/12/23 08:02 BMI result Body Mass Index 29.9 Appearing in no acute distress lung sounds are clear to auscultation heart regular rate rhythm, clear S1, S2 positive bowel sounds, abdomen is soft, nontender neuro patient is alert x3, no focal deficits Objective Data Active Medications Acetaminophen (Acetaminophen 325 Mg Tablet) 650 mg PO Q6H PRN PRN Reason: Pain, Mild (Pain Scale 1-3), fever or headache Last Admin: 12/14/23 02:24 Dose: 650 mg Documented By: FREDDY Albuterol Sulfate (Albuterol Sulfate (0.083%) 2.5 Mg/3 Ml Vial.Neb) 2.5 mg INHALE RQ4H PRN PRN Reason: Shortness of Breath/Wheezing Albuterol/Ipratropium (Albuterol/Iprat 2.5/0.5mg 3 Ml Ampul.Neb) 3 ml INHALE RQ6H WHILE AWAKE [facility] Last Admin: 12/14/23 07:48 Dose: 3 ml Documented By: ERICKSON Apixaban (Apixaban 5 Mg Tablet) 5 mg PO BID [facility] Last Admin: 12/13/23 20:49 Dose: 5 mg Documented By: FREDDY Ascorbic Acid (Ascorbic Acid 250 Mg Tablet) 250 mg PO DAILY [facility] Last Admin: 12/13/23 09:57 Dose: 250 mg Documented By: STEVE Atorvastatin Calcium (Atorvastatin Calcium 10 Mg Tablet) 10 mg PO BEDTIME [facility] Last Admin: 12/13/23 20:49 Dose: 10 mg Documented By: FREDDY Cyclobenzaprine HCl (Cyclobenzaprine Hcl 10 Mg Tablet) 10 mg PO TID PRN PRN Reason: muscle spasm Docusate Sodium (Docusate Sodium 100 Mg Capsule) 100 mg PO DAILY [facility] Last Admin: 12/13/23 09:57 Dose: 100 mg Documented By: STEVE Famotidine (Famotidine 20 Mg Tablet) 40 mg PO BEDTIME PRN PRN Reason: for heartburn Last Admin: 12/14/23 02:26 Dose: 40 mg Documented By: FREDDY Ferrous Sulfate (Ferrous Sulfate 324 Mg Tablet.) 324 mg PO DAILY [facility] Last Admin: 12/13/23 09:57 Dose: 324 mg Documented By: STEVE Fluticasone/Umeclidinium/Vilanterol (Fluticasone/Umeclidinium/Vilanterol 100/62.5/25 Blst.W.Dev) 1 puff INHALE DAILY [facility] Last Admin: 12/14/23 07:48 Dose: 1 puff Documented By: ERICKSON Furosemide (Furosemide 40 Mg/4 Ml Vial) 40 mg IVPUSH DAILY [facility]; Protocol Guaifenesin (Guaifenesin 200 Mg/10 Ml 10 Ml Liquid) 10 ml PO Q4H PRN PRN Reason: Cough Last Admin: 12/14/23 02:23 Dose: 10 ml Documented By: FREDDY Ceftriaxone Sodium 1 gm/ (Sodium Chloride) 50 mls @ 100 mls/hr IV Q24H [facility] Last Infusion: 12/13/23 13:26 Dose: Infused Documented By: STEVE Doxycycline Hyclate 100 mg/ (Sodium Chloride) 250 mls @ 166.67 mls/hr IV Q12H [facility] Last Infusion: 12/14/23 03:10 Dose: Infused Documented By: FREDDY Latanoprost (Latanoprost 0.005 % Ophth Evelyn 2.5 Ml Drops) 1 drop EYE-BOTH BEDTIME [facility] Last Admin: 12/13/23 22:15 Dose: 1 drop Documented By: FREDDY Lidocaine (Lidocaine 4 % Patch Adh..Patch) 1 patch TRANSDERMA DAILY [facility] Last Admin: 12/13/23 09:57 Dose: 1 patch Documented By: STEVE Methylprednisolone Sodium Succinate (Methylprednisolone Sod Succ 40 Mg/Ml Vial) 40 mg IVPUSH Q12H [facility] Last Admin: 12/14/23 06:32 Dose: 40 mg Documented By: FREDDY Morphine Sulfate (Morphine Sulfate Er 15 Mg Tablet.Er) 15 mg PO BID [facility] Last Admin: 12/13/23 20:49 Dose: 15 mg Documented By: FREDDY Non-Formulary Medication (Linaclotide [Linzess]) 145 mcg PO DAILY [facility] Omeprazole (Omeprazole 20 Mg Capsule.Dr) 20 mg PO BID@0630,1630 [facility] Last Admin: 12/14/23 06:32 Dose: 20 mg Documented By: FREDDY Sodium Chloride (0.9 % Sodium Chloride Flush 3 Ml Syringe) 3 ml IVFLUSH QSHIFT [facility] Last Admin: 12/14/23 00:00 Dose: 3 ml Documented By: FREDDY Sotalol HCl (Sotalol Hcl 80 Mg Tablet) 80 mg PO BID@0800,2000 [facility] Last Admin: 12/13/23 22:14 Dose: 80 mg Documented By: FREDDY Sucralfate (Sucralfate Oral Suspension 1 Gm/10 Ml Oral.Susp) 1 gm PO DAILY@1200 [facility] Last Admin: 12/13/23 12:48 Dose: 1 gm Documented By: STEVE Labs 12/13/23 07:10 12/14/23 05:45 Labs: Laboratory Results - last 24 hr 12/14/23 05:45 Anion Gap 9 L Estim Creat Clear Calc 121.8 Estimated GFR > 60 Random Glucose 141 H Calcium 8.1 L Magnesium 2.1 Microbiology Microbiology Results: Microbiology 12/12/23 08:13 Blood Culture - Preliminary Blood - Venous No growth after 24 hours. 12/12/23 06:51 Blood Culture - Preliminary Blood - Venous No growth after 24 hours. Assessment and Plan (1) Community acquired pneumonia: Status: Acute (2) Nonischemic cardiomyopathy: Status: Acute Plan This is a 68-year-old male with history of atrial fibrillation on Eliquis, nonischemic cardiomyopathy, pulmonary nodule, BPH, peptic ulcer disease who presents to the emergency department with 1 day history of shortness of breath requiring CPAP initially in the emergency room found to have pneumonia and COPD exacerbation Paroxysmal atrial fibrillation in NSR Continue sotalol, was on hold due to prolonged QTC Avoid QT prolonging medication. Continue anticoagulation with Eliquis Seen by cardiology> avoid QT prolonging drugs including home doses of seroquel and trazadone, clear from cardio perspective Acute respiratory failure with hypoxia due to exacerbation of COPD, pneumonia Initially requiring CPAP, now on 3 L nasal cannula Does not use supplemental oxygen at baseline Sepsis due to COPD exacerbation and pneumonia Met sirs criteria with tachycardia, tachypnea, mild elevation of lactic acid which resolved with IV fluid Blood cultures neg Continue treatment for pneumonia with ceftriaxone and doxycycline Continue treatment for exacerbation of COPD with steroids and breathing treatments Nonischemic cardiomyopathy Lasix 20 mg daily Appears euvolemic. BNP 17 Peptic ulcer disease Continue PPI, sucralfate Chronic pain Continue baseline medication DISPO PT consult for weakness DVT Eliquis Attending Dr. Lyles Full code continue stay in the hospital for management of COPD exacerbation and pneumonia Quality Stroke Does the patient have a stroke diagnosis?: No VTE Prior VTE?: No VTE Risk Level:: Medical - moderate - high VTE Device Contraindication: N/A - Device Ordered VTE Drug Contraindication: N/A - Med Ordered
[2023-12-14] MEDS: Morphine Sulfate ER 15 MG TABLET.ER PO ×2 (09:14→21:30)
[2023-12-14] MEDS: Docusate Sodium 100 MG CAPSULE PO (09:14)
[2023-12-14] MEDS: Sotalol HCL 80 MG TABLET PO ×2 (09:14→21:29)
[2023-12-14] MEDS: Ferrous Sulfate 324 MG TABLET.DR PO (09:14)
[2023-12-14] MEDS: Lidocaine 4 % Patch ADH..PATCH 1 PATCH TRANSDERMA (09:15)
[2023-12-14] MEDS: Ascorbic Acid 250 MG TABLET PO (09:15)
[2023-12-14] MEDS: Furosemide 20 MG TABLET PO (09:15)
[2023-12-14] MEDS: Apixaban 5 MG TABLET PO ×2 (09:15→21:29)
[2023-12-14] MEDS: 0.9 % Sodium Chloride Flush 3 ML SYRINGE IVFLUSH ×4 (09:20→21:31)
[2023-12-14] MEDS: cefTRIAXone sodium 1 GM in 0.9 % Sodium Chloride 50 ML IV (12:06)
[2023-12-14] MEDS: Sucralfate Oral Suspension 1 GM/10 ML ORAL.SUSP PO (12:06)
--- NOTE | 2023-12-14 12:29 | PM.PNCARD ---
Subjective Subjective Date of Service: 12/14/23 Interval history: Seen examined at bedside. Back in sinus rhythm. Physical Exam Vital Signs: Last Vital Signs Temp 98.0 F 12/14/23 12:00 Pulse 68 12/14/23 12:00 Resp 20 12/14/23 12:00 BP 127/85 12/14/23 12:00 Pulse Ox 93 12/14/23 12:00 O2 Del Method Nasal Cannula 12/14/23 12:00 O2 Flow Rate 4 12/14/23 12:00 FiO2 40 12/12/23 08:02 BMI result Body Mass Index 29.9 GENERAL APPEARANCE: in no acute distress, pleasant. on supplemental O2. NECK: no carotid bruit, no jugular venous distention. SKIN: no suspicious lesions, warm and dry. HEART: no murmurs, regular rate and rhythm. LUNGS: crackles right lung ABDOMEN: soft, nontender. EXTREMITIES: no edema. PERIPHERAL PULSES: equal. NEUROLOGIC: No gross deficits, AAO X 3 Objective Labs and Meds 12/13/23 07:10 12/14/23 05:45 Lab results: Laboratory Results - last 24 hr 12/14/23 05:45 Sodium 138 Potassium 4.2 Chloride 110 H Carbon Dioxide 23 Anion Gap 9 L BUN 23 H Creatinine 0.66 Estim Creat Clear Calc 121.8 Estimated GFR > 60 Random Glucose 141 H Calcium 8.1 L Magnesium 2.1 Progress Note: A&P Assessment and plan (1) Community acquired pneumonia: Status: Acute (2) Atrial fibrillation with rapid ventricular response: Status: Acute Plan [age] gentleman with nonischemic cardiomyopathy and atrial fibrillation on sotalol presented with pneumonia and developed AFib with RVR. He has been treated with antibiotics and is improving from pneumonia point of view. He was resumed on sotalol and he has converted back to sinus rhythm. Clinically stable. Wean off oxygen as tolerated. No further recommendations from cardiovascular point of view. Follow-up with Dr. Francis. Signing off. Thank you Time Spent With Patient Time: Total time managing care of this patient today ____ minutes. Progress Note: Quality Stroke Does the patient have a stroke diagnosis?: No Procedures Date of Service Date of Service: 12/14/23
--- NOTE | 2023-12-14 18:36 | PC.NURSE ---
Patient is alert and oriented to person, place, time and event At 08:08 I reached out to provider Joselito Sterling [employer]ACHINE [employer] concerning EKG for patient prior to administering medication Sotalol, see MAR. At 08:24 via [email or web address] the SEWING MACHINE TESTER messaged no he had already been on the medication Sotalol, the QTC was high from psych medication which were held and pt received azithromycin in ED. At 1351 Pharmacist Gerson inquired why EKG was not completed prior to administration and 2 hrs after treatment. I clarified with provider Joselito Sterling [employer]WING MACHINE TE[employer] on protocol. Who spoke with Pharmacist on policy. At this time jovanny Sterling does not need EKG done around administration of medication.
[2023-12-14] MEDS: Atorvastatin Calcium 10 MG TABLET PO (21:29)
[2023-12-14] MEDS: Latanoprost 0.005 % Ophth Sol 2.5 ML DROPS 1 DROP EYE-BOTH (21:31)
[2023-12-15] VITALS (12 sets, daily range): BP systolic 112–136; BP diastolic 75–95; PULSE 62–94; RESP 16–20; TEMP 36.2–36.6; O2SAT 84–97
[2023-12-15] MEDS: Doxycycline Hyclate 100 MG in 0.9 % Sodium Chloride 250 ML 166.7 MG IV (01:43)
[2023-12-15] MEDS: Omeprazole 20 MG CAPSULE.DR PO ×2 (05:28→15:36)
[2023-12-15] MEDS: methylPREDNISolone Sod Succ 40 MG/ML VIAL IVPUSH ×2 (05:29→17:44)
[2023-12-15 08:08] LABS: Anion Gap 10 (12-20); Blood Urea Nitrogen 19 mg/dL (9-16); Calcium 8.4 mg/dL (8.4-10.2); Carbon Dioxide 26 mmol/L (22-29); Chloride 108 mmol/L (96-108); Creatinine Clr Calc Pharmacy 123.7; Estimated Glomerular Filt Rate > 60; Glucose Random 113 mg/dL (60-115); Potassium 4.4 mmol/L (3.3-5.1); Sodium 140 mmol/L (135-145)
[2023-12-15] MEDS: Fluticasone/Umeclidinium/Vilanterol 100/62.5/25 BLST.W.DEV 1 PUFF INHALE (08:33)
[2023-12-15] MEDS: Albuterol/Iprat 2.5/0.5MG 3 ML AMPUL.NEB INHALE ×3 (08:34→21:07)
[2023-12-15] MEDS: Lidocaine 4 % Patch ADH..PATCH 1 PATCH TRANSDERMA (08:35)
[2023-12-15] MEDS: Furosemide 20 MG TABLET PO (08:35)
[2023-12-15] MEDS: Sotalol HCL 80 MG TABLET PO ×2 (08:36→19:25)
[2023-12-15] MEDS: Ascorbic Acid 250 MG TABLET PO (08:36)
[2023-12-15] MEDS: Apixaban 5 MG TABLET PO ×2 (08:36→20:33)
[2023-12-15] MEDS: Ferrous Sulfate 324 MG TABLET.DR PO (08:36)
[2023-12-15] MEDS: Docusate Sodium 100 MG CAPSULE PO (08:36)
[2023-12-15] MEDS: Morphine Sulfate ER 15 MG TABLET.ER PO ×2 (08:36→20:33)
[2023-12-15] MEDS: 0.9 % Sodium Chloride Flush 3 ML SYRINGE IVFLUSH ×3 (08:37→20:34)
[2023-12-15] MEDS: Doxycycline Hyclate 100 MG in 0.9 % Sodium Chloride 250 ML 166.67 MG IV (12:43)
[2023-12-15] MEDS: Sucralfate Oral Suspension 1 GM/10 ML ORAL.SUSP PO (12:44)
[2023-12-15] MEDS: cefTRIAXone sodium 1 GM in 0.9 % Sodium Chloride 50 ML IV (12:44)
[2023-12-15] MEDS: Acetaminophen 325 MG TABLET 650 MG PO (12:47)
--- NOTE | 2023-12-15 13:20 | HO.PM.IMPN ---
Subjective Subjective Date of Service: 12/15/23 Review of Systems Follow afib rvr, resp failure, copd, pna feeling better no pain Physical Exam Vital Signs: Vital Signs: Last Vital Signs Temp 97.7 F 12/15/23 11:35 Pulse 94 12/15/23 11:35 Resp 20 12/15/23 11:35 BP 112/75 12/15/23 11:35 Pulse Ox 93 12/15/23 11:35 O2 Del Method Nasal Cannula 12/15/23 11:35 O2 Flow Rate 2 12/15/23 11:35 FiO2 40 12/12/23 08:02 BMI result Body Mass Index 29.9 Appearing in no acute distress lung sounds are clear to auscultation heart regular rate rhythm, clear S1, S2 positive bowel sounds, abdomen is soft, nontender neuro patient is alert x3, no focal deficits Objective Data Active Medications Acetaminophen (Acetaminophen 325 Mg Tablet) 650 mg PO Q6H PRN PRN Reason: Pain, Mild (Pain Scale 1-3), fever or headache Last Admin: 12/15/23 12:47 Dose: 650 mg Documented By: JODIE Albuterol Sulfate (Albuterol Sulfate (0.083%) 2.5 Mg/3 Ml Vial.Neb) 2.5 mg INHALE RQ4H PRN PRN Reason: Shortness of Breath/Wheezing Albuterol/Ipratropium (Albuterol/Iprat 2.5/0.5mg 3 Ml Ampul.Neb) 3 ml INHALE RQ6H WHILE AWAKE [facility] Last Admin: 12/15/23 13:13 Dose: 3 ml Documented By: ROJELIO Apixaban (Apixaban 5 Mg Tablet) 5 mg PO BID [facility] Last Admin: 12/15/23 08:36 Dose: 5 mg Documented By: JODIE Ascorbic Acid (Ascorbic Acid 250 Mg Tablet) 250 mg PO DAILY [facility] Last Admin: 12/15/23 08:36 Dose: 250 mg Documented By: JODIE Atorvastatin Calcium (Atorvastatin Calcium 10 Mg Tablet) 10 mg PO BEDTIME [facility] Last Admin: 12/14/23 21:29 Dose: 10 mg Documented By: VASU Cyclobenzaprine HCl (Cyclobenzaprine Hcl 10 Mg Tablet) 10 mg PO TID PRN PRN Reason: muscle spasm Docusate Sodium (Docusate Sodium 100 Mg Capsule) 100 mg PO DAILY [facility] Last Admin: 12/15/23 08:36 Dose: 100 mg Documented By: JODIE Famotidine (Famotidine 20 Mg Tablet) 40 mg PO BEDTIME PRN PRN Reason: for heartburn Last Admin: 12/14/23 02:26 Dose: 40 mg Documented By: FREDDY Ferrous Sulfate (Ferrous Sulfate 324 Mg Tablet.Dr) 324 mg PO DAILY [facility] Last Admin: 12/15/23 08:36 Dose: 324 mg Documented By: JODIE Fluticasone/Umeclidinium/Vilanterol (Fluticasone/Umeclidinium/Vilanterol 100/62.5/25 Blst.W.Dev) 1 puff INHALE DAILY [facility] Last Admin: 12/15/23 08:33 Dose: 1 puff Documented By: ROJELIO Furosemide (Furosemide 20 Mg Tablet) 20 mg PO DAILY [facility]; Protocol Last Admin: 12/15/23 08:35 Dose: 20 mg Documented By: JODIE Guaifenesin (Guaifenesin 200 Mg/10 Ml 10 Ml Liquid) 10 ml PO Q4H PRN PRN Reason: Cough Last Admin: 12/14/23 02:23 Dose: 10 ml Documented By: FREDDY Ceftriaxone Sodium 1 gm/ (Sodium Chloride) 50 mls @ 100 mls/hr IV Q24H [facility] Last Admin: 12/15/23 12:44 Dose: 100 mls/hr Documented By: JODIE Doxycycline Hyclate 100 mg/ (Sodium Chloride) 250 mls @ 166.67 mls/hr IV Q12H [facility] Last Admin: 12/15/23 12:43 Dose: 166.67 mls/hr Documented By: JODIE Latanoprost (Latanoprost 0.005 % Ophth Evelyn 2.5 Ml Drops) 1 drop EYE-BOTH BEDTIME [facility] Last Admin: 12/14/23 21:31 Dose: 1 drop Documented By: VASU Lidocaine (Lidocaine 4 % Patch Adh..Patch) 1 patch TRANSDERMA DAILY [facility] Last Admin: 12/15/23 08:35 Dose: 1 patch Documented By: JODIE Melatonin (Melatonin 3 Mg Tablet) 6 mg PO BEDTIME PRN PRN Reason: Insomnia Methylprednisolone Sodium Succinate (Methylprednisolone Sod Succ 40 Mg/Ml Vial) 40 mg IVPUSH Q12H [facility] Last Admin: 12/15/23 05:29 Dose: 40 mg Documented By: VASU Morphine Sulfate (Morphine Sulfate Er 15 Mg Tablet.Er) 15 mg PO BID [facility] Last Admin: 12/15/23 08:36 Dose: 15 mg Documented By: JODIE Non-Formulary Medication (Linaclotide [Linzess]) 145 mcg PO DAILY [facility] Omeprazole (Omeprazole 20 Mg Capsule.) 20 mg PO BID@0630,1630 [facility] Last Admin: 12/15/23 05:28 Dose: 20 mg Documented By: VASU Sodium Chloride (0.9 % Sodium Chloride Flush 3 Ml Syringe) 3 ml IVFLUSH QSHIFT [facility] Last Admin: 12/15/23 08:37 Dose: 3 ml Documented By: JODIE Sotalol HCl (Sotalol Hcl 80 Mg Tablet) 80 mg PO BID@0800,2000 [facility] Last Admin: 12/15/23 08:36 Dose: 80 mg Documented By: JODIE Sucralfate (Sucralfate Oral Suspension 1 Gm/10 Ml Oral.Susp) 1 gm PO DAILY@1200 [facility] Last Admin: 12/15/23 12:44 Dose: 1 gm Documented By: JODIE Labs 12/13/23 07:10 12/15/23 07:18 Labs: Laboratory Results - last 24 hr 12/15/23 07:18 Anion Gap 10 L Estim Creat Clear Calc 123.7 Estimated GFR > 60 Random Glucose 113 Calcium 8.4 Magnesium 2.0 Microbiology Microbiology Results: Microbiology 12/12/23 08:13 Blood Culture - Preliminary Blood - Venous No growth after 48 hours. Assessment and Plan (1) Community acquired pneumonia: Status: Acute (2) Nonischemic cardiomyopathy: Status: Acute Plan This is a 68-year-old male with history of atrial fibrillation on Eliquis, nonischemic cardiomyopathy, pulmonary nodule, BPH, peptic ulcer disease who presents to the emergency department with 1 day history of shortness of breath requiring CPAP initially in the emergency room found to have pneumonia and COPD exacerbation Paroxysmal atrial fibrillation in NSR Continue sotalol, was on hold due to prolonged QTC Avoid QT prolonging medication. Continue anticoagulation with Eliquis Seen by cardiology> avoid QT prolonging drugs including home doses of seroquel and trazadone, clear from cardio perspective Acute respiratory failure with hypoxia due to exacerbation of COPD, pneumonia. Hypoxia resolved Initially requiring CPAP, now on 3 L nasal cannula Does not use supplemental oxygen at baseline home oxygen evaluation pending Sepsis due to COPD exacerbation and pneumonia. Sepsis resolved Met sirs criteria with tachycardia, tachypnea, mild elevation of lactic acid which resolved with IV fluid Blood cultures neg Continue treatment for pneumonia with ceftriaxone and doxycycline Continue treatment for exacerbation of COPD with steroids and breathing treatments Nonischemic cardiomyopathy Lasix 20 mg daily Appears euvolemic. BNP 17 Peptic ulcer disease Continue PPI, sucralfate Chronic pain Continue baseline medication DISPO PT consult for weakness DVT [place] Attending Dr. Nieves Full code DISPO PT rec home with PT when medically clear continue stay in the hospital for management of COPD exacerbation and pneumonia Quality Stroke Does the patient have a stroke diagnosis?: No VTE Prior VTE?: No VTE Risk Level:: Medical - moderate - high VTE Device Contraindication: N/A - Device Ordered VTE Drug Contraindication: N/A - Med Ordered
--- NOTE | 2023-12-15 13:47 | MHC.CM.PN ---
EMR reviewed and per MD rounds, pt is not medically cleared for discharge due to management of COPD exacerbation and pneumonia. Per RT, pt will need new home O2 set up upon discharge.
[2023-12-15] MEDS: Latanoprost 0.005 % Ophth Sol 2.5 ML DROPS 1 DROP EYE-BOTH (19:24)
[2023-12-15] MEDS: Atorvastatin Calcium 10 MG TABLET PO (20:33)
[2023-12-16] MEDS: Doxycycline Hyclate 100 MG in 0.9 % Sodium Chloride 250 ML 166.67 MG IV (00:13)
[2023-12-16 03:56] VITALS: BP 110/82; PULSE 56; RESP 20; TEMP 36.3; O2SAT 96
[2023-12-16] MEDS: Omeprazole 20 MG CAPSULE.DR PO (05:39)
[2023-12-16 06:57] LABS: Anion Gap 7 (12-20); Blood Urea Nitrogen 21 mg/dL (9-16); Carbon Dioxide 26 mmol/L (22-29); Chloride 109 mmol/L (96-108); Creatinine Clr Calc Pharmacy 127.6; Estimated Glomerular Filt Rate > 60; Glucose Random 101 mg/dL (60-115); Magnesium 1.9 mg/dL (1.6-2.6); Sodium 138 mmol/L (135-145)
[2023-12-16 07:38] VITALS: BP 133/83; PULSE 60; RESP 20; TEMP 36.8; O2SAT 93
[2023-12-16] MEDS: Albuterol/Iprat 2.5/0.5MG 3 ML AMPUL.NEB INHALE (07:59)
[2023-12-16] MEDS: Fluticasone/Umeclidinium/Vilanterol 100/62.5/25 BLST.W.DEV 1 PUFF INHALE (07:59)
[2023-12-16 08:00] VITALS: PULSE 53; RESP 16; O2SAT 95
[2023-12-16 09:09] VITALS: BP 133/83
[2023-12-16] MEDS: Ascorbic Acid 250 MG TABLET PO (09:09)
[2023-12-16] MEDS: Furosemide 20 MG TABLET PO (09:09)
[2023-12-16] MEDS: Sotalol HCL 80 MG TABLET PO (09:09)
[2023-12-16] MEDS: Apixaban 5 MG TABLET PO (09:09)
[2023-12-16] MEDS: Docusate Sodium 100 MG CAPSULE PO (09:10)
[2023-12-16] MEDS: 0.9 % Sodium Chloride Flush 3 ML SYRINGE IVFLUSH (09:11)
[2023-12-16] MEDS: Morphine Sulfate ER 15 MG TABLET.ER PO (09:16)
[2023-12-16] MEDS: Ferrous Sulfate 324 MG TABLET.DR PO (09:16)
--- NOTE | 2023-12-16 09:57 | P.DS_ITS ---
DS: Providers Provider Date of Service: 12/16/23 Date of admission: 12/12/23 12:46 Primary care physician: Rigoberto Madrigal MD Consults: 12/12/23 14:12 Consult to Cardiology Routine Consulting Provider: [facility] [place] [facility] Reason for consultation: afib on sotalol. long QT Has provider been notified: No DS: Diagnosis Discharge Diagnosis (1) Community acquired pneumonia: Status: Acute (2) Nonischemic cardiomyopathy: Status: Acute DS: Summary Hospital Course Hospital Course: History and physical as per admitting provider. This is a 68-year-old male with history of COPD who presents to the emergency department with shortness of breath. Patient states he began feeling short of breath overnight. His shortness of breath is associated with a dry cough and fatigue. He denies any associated fever or chills, he denies any recent sick contacts. On arrival he was tachycardic and tachypneic. He was initially placed on CPAP and then converted to 3 L nasal cannula. In the emergency department he had a chest x- ray was was concerning for pneumonia, and he was started on antibiotics. In addition he was treated with breathing treatments and IV steroids. He tested negative for influenza, RSV and COVID-19. 68-year-old male treated for acute respiratory failure with hypoxia secondary to COPD and pneumonia. He was initially treated with CPAP then transitioned down to 3 L nasal cannula. He did not use oxygen supplementation at home but home oxygen evaluation revealed that he did need 2 L with ambulation. He was treated for sepsis initially but blood cultures were negative and he was treated with IV Rocephin and doxycycline. For the COPD was treated with IV Solu-Medrol and scheduled DuoNebs. Because of his history of paroxysmal atrial fibrillation and being on sotalol his QTC was monitored closely, it was held 1 time due to prolonged QTC secondary to azithromycin administration in the ER but was subsequently continued. He is also continued on his Eliquis. Cardiology recommended stopping his Seroquel and trazodone which can also prolong his QTC. Patient was seen evaluated by Physical therapy with recommendation for home with PT. Patient will be sent home with 2 more days of antibiotics, 4 days of steroids. He is in agreement with discharge. Nonischemic cardiomyopathy. Continue Lasix,. Euvolemic during hospitalization Peptic ulcer disease. Continue PPI and sucralfate Chronic pain. Continue home medications Time Attestation Discharge Coordination Time (in mins): 36 Quality: Safe Use of Opioids Does Pt have an Active Cancer Diagnosis on the Problem List?: No Quality: Stroke Does the patient have a stroke diagnosis?: No Physical Exam Vital Signs: Vital Signs: Last Vital Signs Temp 98.2 F 12/16/23 07:38 Pulse 53 12/16/23 08:00 Resp 16 12/16/23 08:00 BP 133/83 12/16/23 09:09 Pulse Ox 93 12/16/23 07:38 O2 Del Method Nasal Cannula 12/16/23 07:38 O2 Flow Rate 2 12/16/23 07:38 FiO2 40 12/12/23 08:02 BMI result Body Mass Index 29.9 Appearing in no acute distress head is normocephalic atraumatic eyes pupils are PERRLA sclera is anicteric mouth throat mucous membranes are intact and moist neck is supple no lymphadenopathy, no JVD noted lung sounds are clear to auscultation heart regular rate rhythm, clear S1, S2 positive bowel sounds, abdomen is soft, nontender neuro patient is alert x3, no focal deficits DS: Data Data Completed and Pending Completed studies during hospitalization [Text1]: Procedures Drainage of Right Lower Lung Lobe, Via Natural or Artificial Opening Endoscopic, Diagnostic (08/26/22) Drainage of Right Middle Lung Lobe, Via Natural or Artificial Opening Endoscopic, Diagnostic (08/26/22) Excision of Stomach, Via Natural or Artificial Opening Endoscopic, Diagnostic (07/09/23) Extraction of Right Lower Lung Lobe, Via Natural or Artificial Opening Endosc opic, Diagnostic (08/26/22) Extraction of Right Middle Lung Lobe, Via Natural or Artificial Opening Endoscopic, Diagnostic (08/26/22) Labs on day of discharge: Laboratory Results - last 24 hr 12/16/23 06:08 Sodium 138 Potassium 4.0 Chloride 109 H Carbon Dioxide 26 Anion Gap 7 L BUN 21 H Creatinine 0.63 Estim Creat Clear Calc 127.6 Estimated GFR > 60 Random Glucose 101 Calcium 8.0 L Magnesium 1.9 Preliminary micro results at discharge 12/12/23 08:13 Blood Culture - Preliminary Blood - Venous No growth after 48 hours. 12/12/23 06:51 Blood Culture - Preliminary Blood - Venous No growth after 48 hours. Discharge Plan Discharge Anticipated Discharge Date/Time: 12/16/23 09:55 Patient Disposition: Home Health Service Discharge Diagnosis: Paroxysmal atrial fibrillation Acute respiratory failure with hypoxia COPD Pneumonia Sepsis Referrals: Rigoberto Madrigal MD [Primary Care Provider] - 1 Week Layton Sterling MD [Physician] - 1 Week (Oxygen management ) Discharge Medications: New cefuroxime axetil 500 mg tablet 500 mg PO BID Qty: 4 0RF doxycycline hyclate 100 mg tablet 100 mg PO BID Qty: 4 0RF prednisone 10 mg tablet 40 mg PO DIRECTED Qty: 16 0RF Rx Instructions: see taper instructions Continued sucralfate [Carafate] 100 mg/mL suspension 20 ml PO QNOON Qty: 1000 11RF Linzess 145 mcg capsule 145 mcg PO QAM Qty: 90 2RF Tymlos 80 mcg (3,120 mcg/1.56 mL) pen injector 80 mcg subcut DAILY Qty: 1.56 11RF Rx Instructions: inject into abdomen; do not inject within 2 inches of belly button/navel; rotate sites famotidine 40 mg tablet 40 mg PO BEDTIME PRN (Reason: for heartburn) Qty: 90 0RF omeprazole 20 mg capsule,delayed release(DR/EC) 20 mg PO BID Qty: 180 0RF cyclobenzaprine 10 mg tablet 10 mg PO TID PRN (Reason: muscle spasm) Qty: 60 0RF Eliquis 5 mg tablet 5 mg PO BID Qty: 60 0RF ascorbic acid (vitamin C) 250 mg tablet 250 mg PO DAILY morphine 15 mg tablet extended release 15 mg PO BID sotalol 80 mg tablet 80 mg PO Q12H simvastatin 20 mg tablet 20 mg PO QPM lidocaine 5 % Adhesive Patch,Medicated 1 patch TOPICAL DAILY PRN (Reason: Pain) Rx Instructions: leave on most painful area for up to 12 hrs albuterol sulfate [Ventolin HFA] 90 mcg/actuation HFA aerosol inhaler 2 puff INHALATION Q4-6H PRN (Reason: wheezing) metoclopramide HCl 10 mg tablet 10 mg PO BIDAC latanoprost 0.005 % drops 1 drp ophthalmic (eye) BEDTIME Trelegy Ellipta 100-62.5-25 mcg blister with device 1 inh inhalation DAILY 30 Days Qty: 60 11RF ferrous gluconate 324 mg (38 mg iron) tablet 324 mg PO DAILY furosemide 20 mg tablet 20 mg PO DAILY Discontinued quetiapine 300 mg tablet 300 mg PO BEDTIME trazodone 100 mg tablet 100 - 200 mg PO BEDTIME PRN (Reason: Sleep) Discharge Orders: Discharge Order (Routine); Ordered 12/16/23 Ordered By: Geovanna Sterling Diet: Advance to usual diet Activity on Discharge: As tolerated Stand Alone Forms: Patient Portal Discharge page Print Language: Kiswahili Care Plan Goals: Follow-up with pulmonology regarding oxygen use Do not smoke or use flammable items around the oxygen Trazodone and Seroquel was stopped due to the risk of prolonged QTC while being on sotalol Health Concerns: Paroxysmal atrial fibrillation Acute respiratory failure with hypoxia COPD Pneumonia Sepsis Plan of Treatment: Follow-up with primary care provider as needed Take all medications as prescribed Assessment: See discharge summary
--- NOTE | 2023-12-16 09:57 | P.F2F_ITS ---
Service Date Service Date: 12/16/23 Encounter Date of encounter: 12/16/23 Reasons for Services Signs and symptoms assessed: Acute respiratory failure with hypoxia secondary to COPD, pneumonia with sepsis Reason for custodial: CV/CP assess and/or care and other (new to oxygen ) Reason for physical therapy: home safety and mobility Homebound: Leaving the home is medically contraindicated at this time without the asist of a device and/or another person due th the listed conditions above and below. Reason homebound: unsteady gait / fall risk Certification: Based on the above findings, I certify that this patient is confined to the home and needs intermittent custodial care, physical therapy and/or speech therapy, or continues to need occupational therapy. The patient is under my care, and I have initiated the establishment of the plan of care. The patient will be followed by a physician who will periodically review the plan of care. Time Spent With Patient Time: Total time managing care of this patient today ____ minutes.
[2023-12-16 11:19] VITALS: BP 119/86; PULSE 75; RESP 20; TEMP 36.3; O2SAT 93
--- NOTE | 2023-12-16 11:49 | MHC.CM.PN ---
IMM 12/16/23 Patient is discharged to home today. [employer] services will resume. New [facility] will start services or Friday OK'd by MD. Patients sister will provide transportation home.
[2023-12-16] MEDS: Sucralfate Oral Suspension 1 GM/10 ML ORAL.SUSP PO (12:03)
[2023-12-16] MEDS: Doxycycline Monohydrate 100 MG CAPSULE PO (12:04)
== END 2023-12-16 12:56 | disposition home health service (06) | DRG 871 ==
LOC: HO.ED 12:05 → HO.EDOVER 12:54 → HO.IMC 16:20
PROVIDERS: Physician Assistant; Admitting Provider Physician Assistant Medical; Emergency Provider Emergency Medicine; PCP Internal Medicine; Visit Provider Nurse Practitioner Acute Care
DX: A41.9 Sepsis, unspecified organism (principal); J18.9 Pneumonia, unspecified organism; J96.01 Acute respiratory failure with hypoxia; J44.0 Chronic obstructive pulmonary disease with (acute) lower respiratory infection; I42.8 Other cardiomyopathies; J44.1 Chronic obstructive pulmonary disease with (acute) exacerbation; K27.9 Peptic ulcer, site unspecified, unspecified as acute or chronic, without hemorrhage or perforation; I48.0 Paroxysmal atrial fibrillation; Z20.822 Contact with and (suspected) exposure to COVID-19; Z87.891 Personal history of nicotine dependence; Z79.01 Long term (current) use of anticoagulants; Z79.899 Other long term (current) drug therapy
CPT/HCPCS: 0241U; 36415; 71045; 80048; 80053; 82803; 83605; 83735; 83880; 84484; 85025; 85610; 85730; 87040; 93005; 94640; 97162; 99285; J0456; J0696; J2919; J3475

== ENCOUNTER 2023-12-12 12:46 | Outpatient (BNV) | payer MEDICARE, MEDICAID, SELFPAY | END 2023-12-13 08:52 | PROVIDERS: Admitting Provider Physician Assistant Medical; Emergency Provider Emergency Medicine; PCP Internal Medicine; Visit Provider Internal Medicine Cardiovascular Disease | DX: R94.31 Abnormal electrocardiogram [ECG] [EKG] (principal) | CPT/HCPCS: 93010 ==

== ENCOUNTER → 2023-12-12 12:46 | Outpatient (BNV) | payer MEDICARE, MEDICAID, SELFPAY | PROVIDERS: Admitting Provider Physician Assistant Medical; Emergency Provider Emergency Medicine; PCP Internal Medicine; Visit Provider Internal Medicine Cardiovascular Disease | DX: I48.91 Unspecified atrial fibrillation (principal); I42.8 Other cardiomyopathies; J18.9 Pneumonia, unspecified organism; R94.31 Abnormal electrocardiogram [ECG] [EKG] | CPT/HCPCS: 93010; 99223; 99233 ==

== ENCOUNTER → 2023-12-12 12:46 | Outpatient (BNV) | payer MEDICARE, MEDICAID, SELFPAY | PROVIDERS: Admitting Provider Physician Assistant Medical; Emergency Provider Emergency Medicine; PCP Internal Medicine; Visit Provider Nurse Practitioner Acute Care | DX: J18.9 Pneumonia, unspecified organism (principal); I42.8 Other cardiomyopathies | CPT/HCPCS: 99223; 99232; 99239; G0180 ==

== ENCOUNTER 2023-12-23 10:22 | Outpatient (AMB) | payer MEDICARE, MEDICAID, SELFPAY ==
[2023-12-23 10:31] VITALS: PULSE 90; O2SAT 93; BMI 29.9
--- NOTE | 2023-12-23 10:31 | A.OFFVIS_ITS ---
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 The patient to smoke was 2 point complaints of shortness of breath with activity and also complains of cough. [id number] severity. Feels like his legs are very heavy in does get fatigued with activity. He does continue to use inhalers which include Flovent and Spiriva. He uses them with good adherence. He does not have a rescue inhaler at this time. We did talk about smoking. The patient is down to 10 cigarettes a day. He is struggling to decrease further. He was on Chantix but was making and depressed. Therefore will hold off on additional Chantix. He will be a good candidate for Wellbutrin however. Also, in conjunction with Wellbutrin I will prescribe the Nicotrol inhaler that he can use in between for breakthrough nicotine withdrawals. In the patient has had multiple CT scans of the chest in currently participating in the lung cancer screening program. Her last CT scan was done just a few days ago 02/05/2021 demonstrating stable right upper lobe pulmonary nodules. He does have moderate to severe emphysema primarily in the upper lung zones. In he also is following up with Dr. Arce from thoracic surgery. Will continue monitoring the pulmonary nodule in the right upper lobe closely. The patient does have a family history of lung cancer and also pulmonary fibrosis. 01/23/2023 the patient is here for pulmonary follow-up visit. The patient overall has been doing well from a respiratory status. He is having significant amount of back pain. He did have a compression fracture that was 6 in now having issues with other back issues. She was referred to a neurosurgeon. At this point he is waiting that appointment. Clinically patient doing very well from a respiratory status he has stop smoking he has been using the Trelegy inhaler. Under go ahead and decrease the amount of steroids to the lower dose Trelegy. The patient also underwent a CT scan of the chest which I personally reviewed with him. All the findings are reassuring the nodular densities appear to be stable not smaller. He does have extensive emphysema however. That has not changed. No significant scarring noted. He will need another CT scan for another year. Will follow-up in the springtime. 03/14/2023 the patient is here for pulmonary follow-up visit. Overall the patient is doing very well from a respiratory status. He continues uses respiratory therapy with good effect. The patient has not required any prednisone or rescue therapy. He has been having significant back pain. He recently did have an MRI of the back demonstrating new or worsening lumbar compression fractures. He will be following up with pain management soon. He may need to have additional kyphoplasty done. He is going to be working with them. In the meantime more respiratory status the patient is doing well and she will be able to tolerate anesthesia for his procedure. The patient also had a CT scan of the chest demonstrating stable pulmonary nodules. He does have extensive emphysema. Overall the patient has been doing well after he is quit smoking. We did do alpha-1 testing which was completely normal. will go ahead and follow-up in 1 year. If the patient develops any symptoms prior to that he is call the office for an earlier assessment. 09/26/2023 the patient is here for a pulmonary follow-up visit. Overall he is doing fairly well from respiratory status. He continues with this tobacco freedom sation. He continues with the Trelegy inhaler. Does not really use his rescue inhaler often. Typically less than twice a week. He does have dyspnea on exertion specially going up a flight of stairs. Explained to him that not only does have COPD but he has also been more anemic in the last few months that is also contributing to his breathing. In addition to that he is gained some weight. He is scheduled to have a repeat CT scan in the summer subsequently her follow-up in the fall with PFTs. At that point will plan to get him scheduled for pulmonary rehabilitation. For now he can work on his other issues that he is having such as the anemia and his musculoskeletal discomforts. 12/23/2023 the patient is here for pulmonary follow-up visit. He was recently hospitalized with pneumonia and COPD exacerbation. His chest x-ray did personally reviewed demonstrating a right-sided opacity moderate in size. He was placed on antibiotics steroids and oxygen. Quickly after few days he had a repeat x-ray again personally by me demonstrating interval resolution of the process. I suggest that possibly was not just an infectious process but inflammatory process as well. The patient had been having some vomiting so the therefore micro aspirations into the lung and aspiration pneumonitis is also in differential. I did review her CT scan that he had previously done in early 2023 with relatively minimal changes to the right hemithorax dust with some scarring. The patient is scheduled to have a repeat CT scan sometime about mid December. Will follow-up those findings. In the meantime he is on oxygen. He is having hard tank carrying the portable oxygen tanks. We were able to do another 6 minute walk test. The patient was able to maintain a pulse ox of 92% at rest which is reassuring. This was on room air. Then he was ambulated he did desaturate down to 88%. He was then placed on 2 L pulse and his pulse ox was low in the 90s. Therefore he was placed on 3 L pulse in the lot better. Therefore will going to request a conserving valve with a be sudden therefore him. This would be a lot easier for him to carry. In addition to that will also request a portable oxygen concentrator the provide better portability outside of the home. Will at least start the process through [facility] as they have thrown protocols to provide such devices. He will continue with current respiratory therapy. He is currently getting physical therapy at home. Therefore will wait to consider pulmonary rehabilitation in the future. He is reluctant at this time. [facility] Medical History (Updated 12/23/23 @ 22:09 by Layton Sterling MD) Chronic hypoxemic respiratory failure Bipolar 1 disorder Nonischemic cardiomyopathy Ascending aorta dilatation Atrial fibrillation with rapid ventricular response Hypertension Hyperlipidemia COPD (chronic obstructive pulmonary disease) Emphysema lung Pulmonary nodules Opacity of lung on imaging study Nicotine dependence, cigarettes, uncomplicated History of alcohol abuse GERD (gastroesophageal reflux disease) Tubular adenoma of colon Generalized anxiety disorder Depression BPH (benign prostatic hyperplasia) Osteoporosis Edentulous Bilateral tinnitus Compression fracture of T7 vertebra Cervical spondylosis Compression fracture of body of thoracic vertebra Surgical History Hx of kyphoplasty History of surgery on left wrist (~03/21/10) Hx of endoscopy Hx of colonoscopy (~02/13/06) Hx of cataract surgery (~07/02/10) History of appendectomy History of gastric surgery Family History Mother Renal failure Father History of depression Brother Colon cancer Social History Household Members: Significant Other Housing: House Are you a primary lawn care worker to a significant other at home: No Do you presently have visiting nurse or other home services: No Alcohol intake: never Patient Tobacco Use Status: Former Tobacco user Tobacco use type: Cigarette Cigarette Packs Per Day: 0.5 Years Smoked: 55 e-Cigarette/Vaping Use: Former Use Second Hand Smoke Exposure: No Advance Directives Date on File: 09/02/22 service: No Current occupational status: unemployed and disabled 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 Review of Systems Const Reports difficulty sleeping ENT Reports no additional complaints and Reports neck pain Card Denies chest pain, Reports dyspnea and Reports dyspnea on exertion Resp Reports as per HPI, Reports cough, Denies hemoptysis, Denies pain on inspiration, Denies pain with cough, Reports dyspnea and Reports dyspnea on exertion GI Reports bloating and Reports heartburn Musc Reports back pain, Reports myalgias, Reports limited range of motion, Reports muscle weakness (GENERALISED ) and Reports neck pain Neuro Reports no additional complaints and Reports radicular pain Psych Reports depression (ON MEDS ) Physical Exam Vital Signs: Last Vital Signs Pulse 90 12/23/23 10:31 Pulse Ox 93 12/23/23 10:31 Oxygen Delivery Method Room Air 12/23/23 10:31 BMI result Body Mass Index 29.9 Last Vital Signs Temp 98.0 F 08/28/22 07:30 Pulse 88 08/28/22 07:48 Resp 18 08/28/22 07:48 BP 110/60 08/28/22 07:30 Pulse Ox 94 08/28/22 07:30 O2 Del Method 08/28/22 07:30 O2 Flow Rate 2.5 08/28/22 07:30 BMI result Body Mass Index 28.5 Const General: alert Neck Neck: Yes normal visual inspection, Yes full ROM and Yes no lymphadenopathy Chest Chest palpation & inspection: normal inspection of the chest Resp Effort & Inspection: normal respiratory effort Auscultation: diminished lung sounds Cardio Rate: regular rate Rhythm: abnormal rhythm Heart sounds: S1 normal heart sound present and S2 normal heart sound present GI Palpation (GI): Soft to palpation and nontender Auscultation: normal bowel sounds Back/Spine/Pelvis Back: back tenderness Skin General skin exam: rashes and/or lesions noted Office Procedures 6 Minute Walk Time:: 22:20 SPO2 % at rest: 93 Pulse at rest: 101 SPO2 % during excercise: 88 Pulse during excercise: 110 Distance in yards walked: 100 Joycelyn Score: 4 Supplemental Oxygen: ambulated on RA and desaturated quickly to 88%. placed on 2L/pulse and increased to 3l/pulse to maintain pox 94%. 04395 - 6 Minute Walk Quality Reporting (2019) Adult ([facility] 13808/14/68) Smoking risk assessment performed?: Yes Patient Tobacco Use Status: Former Tobacco user Assessment & Plan Assessment & Plan (1) Pulmonary nodules: Code(s): R91.8 - Other nonspecific abnormal finding of lung field Category: Medical (2) COPD (chronic obstructive pulmonary disease): Code(s): J44.9 - Chronic obstructive pulmonary disease, unspecified Category: Medical Qualifiers: COPD type: emphysema Emphysema type: centrilobular Qualified Code(s): J43.2 - Centrilobular emphysema (3) Dyspnea: Code(s): R06.00 - Dyspnea, unspecified Category: Medical Qualifiers: Dyspnea type: dyspnea on exertion Qualified Code(s): R06.09 - Other forms of dyspnea (4) Chronic hypoxemic respiratory failure: Code(s): J96.11 - Chronic respiratory failure with hypoxia Category: Medical (5) Pneumonia: Code(s): J18.9 - Pneumonia, unspecified organism Category: Medical Qualifiers: Pneumonia type: due to unspecified organism Laterality: right Lung l ocation: unspecified part of lung Qualified Code(s): J18.9 - Pneumonia, unspecified organism Plan Continue Trelegy inhaler 100 continue oxygen: REVISION: 3l/pulse with activity with cerserving tank and 2l/min while sleeping with concentrator. Would also benefit from a POC for better protability outside of the home BARBARA as needed consider pulmonary rehab LDCT F/U in 3-4 months Medications: New albuterol sulfate 90 mcg/actuation 2 inhalations inhalation Q6H PRN 18 grams 12RF shortness of breath or wheezing 30 days J44.9 - Chronic obstructive pulmonary disease, unspecified albuterol sulfate 2.5 mg (3 mL) inhalation Q6H PRN 180 mL 11RF shortness of breath or wheezing 30 days Coding Level of Care Code Tele Est Pt Level 4 (44472) Diagnoses Pulmonary nodules R91.8 Centrilobular emphysema J43.2 COPD type: emphysema Emphysema type: centrilobular Dyspnea on exertion R06.09 Dyspnea type: dyspnea on exertion Chronic hypoxemic respiratory failure J96.11 Pneumonia of right lung due to infectious organism, unspecified part of lung J18.9 Pneumonia type: due to unspecified organism Laterality: right Lung location: unspecified part of lung CPT Codes Coding ([id number]) Time Spent (min) 17
[2023-12-23 22:19] VITALS: PULSE 101; O2SAT 93
== END 2023-12-23 11:03 | disposition home or self-care (01) ==
PROVIDERS: PCP Internal Medicine; Visit Provider Hospitalist
DX: R91.8 Other nonspecific abnormal finding of lung field (principal); J43.2 Centrilobular emphysema; J96.11 Chronic respiratory failure with hypoxia; J18.9 Pneumonia, unspecified organism
CPT/HCPCS: 94618; 99214

== ENCOUNTER → 2023-12-23 10:22 | Outpatient (BNVA) | payer MEDICARE, MEDICAID, SELFPAY | PROVIDERS: PCP Internal Medicine; Visit Provider Hospitalist | DX: R91.8 Other nonspecific abnormal finding of lung field (principal); J43.2 Centrilobular emphysema; R06.09 Other forms of dyspnea; J96.11 Chronic respiratory failure with hypoxia; J18.9 Pneumonia, unspecified organism | CPT/HCPCS: 94618; 99212 ==

== ENCOUNTER 2024-01-08 08:03 | Outpatient (REF) | payer MEDICARE, MEDICAID, SELFPAY ==
--- NOTE | ~2024-01-08 | CT_ITS ---
EXAMINATION: CT LOW-DOSE SCREENING CHEST WITHOUT CONTRAST CLINICAL INFORMATION: Nicotine dependence, cigarettes, uncomplicated. Former smoker, quit 2 years prior; 55 pack years; 90.265 KG. COMPARISON: CT chest 01/14/2023. 08/13/2022. TECHNIQUE: Multidetector volumetric CT imaging of the chest is performed on a Siemens SOMATOM Definition scanner without contrast using low dose technique. Additional 2D coronal and sagittal reformatted images and axial 3D maximum intensity projection (MIP) images are generated on the CT workstation. This CT examination was performed using dose optimization techniques as appropriate, variously including the following: *Automated exposure control *Adjustment of mA and/or kV according to patient size (this includes techniques or standardized protocols for targeted exams where dose is matched to indication/reason for exam; i.e. extremities or head) *Use of iterative reconstruction technique TOTAL EXAM DLP: 50 mGy-cm. Please note, due to [facility] contractual, systems, and staffing issues, an [facility] radiologist was not available for review and dictation of this case until 02/18/2024. FINDINGS: PULMONARY NODULES: (As seen on series 5): -Scattered 1-2 mm micronodules, some calcified, are stable and unchanged. -In the medial right apex, there is an average diameter 7 mm nodule (image 68) not previously seen, new. -There is a new somewhat spiculated average diameter 11 mm nodule right lateral upper lobe (image 100), not previously seen and suspicious. -Immediately above and posterior to this, there is an average diameter 8 mm nodule with 2 satellite smaller nodules (image 75-83), not previously seen. -There are 3 grouped centrilobular nodules in the lateral right upper lobe (images 165-166), the larger measuring 4 mm in diameter, new. -New nodule in the superior segment right lower lobe (image 203) with average diameter 7 mm. A few abutting linear appearing nodules are present in this region suggesting inflammatory etiology. -Left upper lobe mid aspect 2 mm nodule (image 152), previously 4 mm, smaller. LUNGS: -There is moderate to severe paraseptal and centrilobular emphysema. There are apical blebs and bullous changes, with calcific pleural parenchymal scarring right greater than left apices. -In the anterior right upper lobe, there is a linear focus of endobronchial mucous casting (image 149). This is new. -In the medial right lower lobe, there are grouped centrilobular nodules, new, consistent with endobronchial inflammation/infection. -Left apical scarring and bullous changes. Scarring also present in the posterior right upper lobe, medial left upper lobe, and medial right lower lobe. -No dense consolidation or interstitial lung disease. -Central airways are patent. Small airways demonstrate mild bronchiectasis. No thickening. -No pleural mass or effusion. MEDIASTINUM: -Aorta is uncoiled and tortuous. Descending aorta measures approximately 4.3 cm on this non-gated study. No significant calcification. Normal branching pattern. -Main pulmonary artery is normal in size. There is a type I hiatus hernia at the GE junction. The esophagus appears patulous. -There is no suspicious lymphadenopathy in the mediastinum or hilum. -Heart size is normal. There is no pericardial effusion. CORONARY ARTERY CALCIFICATION: Moderate LAD and mild circumflex calcification. THYROID GLAND: Unremarkable to the extent seen. CHEST WALL/AXILLA: Unremarkable. UPPER ABDOMEN: Moderate-sized type I hiatus hernia. Mild pancreatic atrophy. Remainder of the upper abdominal contents image demonstrate no abnormality within limitation of low-dose technique. OSSEOUS STRUCTURES: -Osteopenia. Compression deformities with vertebroplasty material involving T7, T9, L1, and L2. -No new or acute findings. CT/CT lung screening IMPRESSION: 1. Numerous new centrilobular nodules right lung, suggestive of bronchopneumonia/infection with inflammatory etiology is also possible. 2. New somewhat spiculated average diameter 11 mm nodule right lateral upper lobe (image 100), suspicious. 3. No new or enlarging nodules left lung. 4. Moderate to severe paraseptal and centrilobular emphysema. A few foci of endobronchial mucous plugging and casting anterior right upper lobe. 5. Mild diffuse bronchiectasis. 6. Stable mild aneurysmal dilatation of the ascending aorta at 4.2 cm. 7. Small type I hiatus hernia. 8. Stable compression deformities with vertebroplasty material involving T7, T9, L1, and L2. No acute bony abnormality. ASSESSMENT: 1. Lung-RADS Category 4B: Suspicious findings. 2. Lung-RADS Category S: None. RECOMMENDATION: A 1-month follow up low-dose lung CT scan is recommended. PET/CT or biopsy could also be considered, although the findings are felt to most likely be inflammatory. An order for CT LUNG CANCER SCREENING SHORT INTERVAL FOLLOWUP ([id number]) can be placed. Electronically signed by: Jeffrey Farnsworth MD 02/18/2024 12:38 PM EDT
== END 2024-01-08 08:04 | disposition home or self-care (01) ==
LOC: HO.CT 08:03
PROVIDERS: PCP Internal Medicine; Visit Provider Hospitalist
DX: Z12.2 Encounter for screening for malignant neoplasm of respiratory organs (principal); F17.210 Nicotine dependence, cigarettes, uncomplicated
CPT/HCPCS: 71271

== ENCOUNTER → 2024-01-08 08:04 | Outpatient (BNV) | payer MEDICARE, MEDICAID, SELFPAY | PROVIDERS: PCP Internal Medicine; Visit Provider Radiology Diagnostic Radiology | DX: F17.210 Nicotine dependence, cigarettes, uncomplicated (principal); Z12.2 Encounter for screening for malignant neoplasm of respiratory organs | CPT/HCPCS: 71271 ==

== ENCOUNTER 2024-02-12 09:43 | Outpatient (AMB) | payer MEDICARE, MEDICAID, SELFPAY ==
--- NOTE | 2024-02-12 10:05 | A.OFFVIS_ITS ---
Vital Signs 02/12/24 10:08 Height 5 ft 11.26 in Weight 198 lb 10.184 oz BMI 27.5 BP 100/70 Blood Pressure Location Rt brachial Position Sitting Pulse 77 Pulse Source Pulse Oximeter Intake Visit Reasons: Osteoporosis-confirmed Intake Note: Patient present today for Osteoporosis follow up visit. 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 Services: Customer Relations Coordinator Present Customer Relations Coordinator Name: Heide [id number] Information Interpreted: non-clinical & clinical Accompanied by: Brother Allergies No Known Allergies [No Known Allergies*] Allergy (Verified 02/12/24 10:09) Medication List - Last Reconciled 02/12/24 by Xavier Grant MD abaloparatide (Tymlos) 80 mcg (0.04 mL) subcut DAILY albuterol sulfate 90 mcg/actuation (Ventolin HFA) 2 puffs inhalation Q4-6H PRN albuterol sulfate 90 mcg/actuation 2 inhalations inhalation Q6H PRN 30 days albuterol sulfate 2.5 mg (3 mL) inhalation Q6H PRN 30 days ascorbic acid (vitamin C) 250 mg PO DAILY cyclobenzaprine 10 mg PO TID PRN famotidine 40 mg PO BEDTIME PRN ferrous gluconate 324 mg PO DAILY ukgqzpxrgci-dtupmhvhw-usypkgkb 100-62.5-25 mcg (Trelegy Ellipta) 1 inh inhalation DAILY 30 days furosemide 20 mg PO DAILY latanoprost 0.005% 1 drp ophthalmic (eye) BEDTIME linaclotide (Linzess) 145 mcg PO QAM metoclopramide HCl 10 mg PO BIDAC morphine ER 15 mg PO BID omeprazole 20 mg PO BID Oxygen Home Use As directed sertraline 25 mg PO DAILY simvastatin 20 mg PO QPM sotalol 80 mg PO Q12H sucralfate (Carafate) 20 mL PO QNOON HPI Comments Details: 68 YO M with is seen in consultation at the request of PCP for Osteoporosis. First diagnosed in Jun 2022 .Had compression fx Not Received treatment in the past . history of pathologic fracture T7, T9 and P0myknewi car but no ONJ. Has no servings of dietary calcium per day Takes Calcium supplement 600 mg BID in divided doses. Takes 1600 IU of Vitamin D daily. Denies ever using PPI, Takes anticoagulant Eliquis , antiepileptic or glucocorticoid medication. Does not weight bearing exercise Fracture history: as above Height loss: No No history of Kidney stones: Has family history of Osteoporosis in mother but no hip fracture. Not UTD on dental cleanings and sees dentist every 6 months. No planned upcoming dental work or extractions. DXA dated 09/26/22 :FINDINGS: AP SPINE L1-L4: BMD 0.862 g/cm2, Z-score -2.6, T-score -3.0, osteoporosis. LEFT FEMUR, NECK: BMD 0.737 g/cm2, Z-score -1.5, T-score -2.6, osteoporosis. LEFT FEMUR, TOTAL: BMD 0.804 g/cm2, Z-score -1.5, T-score -2.1, osteopenia. IDENTIFIED RISK FACTORS: Low calcium intake, history of fracture (adult). HISTORY OF FRACTURE: Thoracic spine status post vertebral augmentation T7 and T9. Clavicle. MEDICATIONS: Calcium, vitamin D. MM/XR DEXA axial skeleton IMPRESSION: 1. DIAGNOSIS: Osteoporosis based on the lowest T-score value of -3.0 in the lumbar spine applying World Health Organization crite On Tymlos for 8 mos . Had 2 additional fx before starting Tymlos Doing well On Tymlos. No fx since last visit. No unusual back pain -less pain . Been on Tymlos since 11/2022 [facility] Medical History (Updated 12/24/23 @ 00:02 by Jennyfer Deluna) COPD (chronic obstructive pulmonary disease) Chronic hypoxemic respiratory failure Bipolar 1 disorder Nonischemic cardiomyopathy Ascending aorta dilatation Atrial fibrillation with rapid ventricular response Hypertension Hyperlipidemia COPD (chronic obstructive pulmonary disease) Emphysema lung Pulmonary nodules Opacity of lung on imaging study Nicotine dependence, cigarettes, uncomplicated History of alcohol abuse GERD (gastroesophageal reflux disease) Tubular adenoma of colon Generalized anxiety disorder Depression BPH (benign prostatic hyperplasia) Osteoporosis Edentulous Bilateral tinnitus Compression fracture of T7 vertebra Cervical spondylosis Compression fracture of body of thoracic vertebra Surgical History Hx of kyphoplasty History of surgery on left wrist (~03/21/10) Hx of endoscopy Hx of colonoscopy (~02/13/06) Hx of cataract surgery (~07/02/10) History of appendectomy History of gastric surgery Family History Mother Renal failure Father History of depression Brother Colon cancer Social History Household Members: Significant Other Housing: House Are you a primary customer care associate to a significant other at home: No Do you presently have visiting nurse or other home services: No Alcohol intake: never Patient Tobacco Use Status: Former Tobacco user Tobacco use type: Cigarette Cigarette Packs Per Day: 0.5 Years Smoked: 55 e-Cigarette/Vaping Use: Former Use Second Hand Smoke Exposure: No Advance Directives Date on File: 09/02/22 service: No Current occupational status: unemployed and disabled 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 Secondary workup was negative Plan is continue the Tymlos for a full 18 mo course which ends in May 2024. Will see patient back in 3 months and then transition to Coding Level of Care Code Est Pt Level 3 (76368) Diagnoses Osteoporosis M81.0
[2024-02-12 10:08] VITALS: BP 100/70; PULSE 77; BMI 27.5
== END 2024-02-12 10:31 | disposition home or self-care (01) ==
PROVIDERS: PCP Internal Medicine; Visit Provider Internal Medicine Endocrinology, Diabetes & Metabolism
DX: M81.0 Age-related osteoporosis without current pathological fracture (principal)
CPT/HCPCS: 99213

== ENCOUNTER → 2024-02-12 09:43 | Outpatient (BNVA) | payer MEDICARE, MEDICAID, SELFPAY | PROVIDERS: PCP Internal Medicine; Visit Provider Internal Medicine Endocrinology, Diabetes & Metabolism | DX: M81.0 Age-related osteoporosis without current pathological fracture (principal) | CPT/HCPCS: 99212 ==

== ENCOUNTER 2024-03-31 10:29 | Outpatient (AMB) | payer MEDICARE, MEDICAID, SELFPAY ==
[2024-03-31 10:35] VITALS: BP 118/70; PULSE 85; O2SAT 99; BMI 28.3
--- NOTE | 2024-03-31 10:35 | MHC.OFFVIS ---
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 The patient to smoke was 2 point complaints of shortness of breath with activity and also complains of cough. Ygrg-nw-wvnazriz severity. Feels like his legs are very heavy in does get fatigued with activity. He does continue to use inhalers which include Flovent and Spiriva. He uses them with good adherence. He does not have a rescue inhaler at this time. We did talk about smoking. The patient is down to 10 cigarettes a day. He is struggling to decrease further. He was on Chantix but was making and depressed. Therefore will hold off on additional Chantix. He will be a good candidate for Wellbutrin however. Also, in conjunction with Wellbutrin I will prescribe the Nicotrol inhaler that he can use in between for breakthrough nicotine withdrawals. In the patient has had multiple CT scans of the chest in currently participating in the lung cancer screening program. Her last CT scan was done just a few days ago 02/05/2021 demonstrating stable right upper lobe pulmonary nodules. He does have moderate to severe emphysema primarily in the upper lung zones. In he also is following up with Dr. Arce from thoracic surgery. Will continue monitoring the pulmonary nodule in the right upper lobe closely. The patient does have a family history of lung cancer and also pulmonary fibrosis. 01/23/2023 the patient is here for pulmonary follow-up visit. The patient overall has been doing well from a respiratory status. He is having significant amount of back pain. He did have a compression fracture that was 6 in now having issues with other back issues. She was referred to a neurosurgeon. At this point he is waiting that appointment. Clinically patient doing very well from a respiratory status he has stop smoking he has been using the Trelegy inhaler. Under go ahead and decrease the amount of steroids to the lower dose Trelegy. The patient also underwent a CT scan of the chest which I personally reviewed with him. All the findings are reassuring the nodular densities appear to be stable not smaller. He does have extensive emphysema however. That has not changed. No significant scarring noted. He will need another CT scan for another year. Will follow-up in the springtime. 03/14/2023 the patient is here for pulmonary follow-up visit. Overall the patient is doing very well from a respiratory status. He continues uses respiratory therapy with good effect. The patient has not required any prednisone or rescue therapy. He has been having significant back pain. He recently did have an MRI of the back demonstrating new or worsening lumbar compression fractures. He will be following up with pain management soon. He may need to have additional kyphoplasty done. He is going to be working with them. In the meantime more respiratory status the patient is doing well and she will be able to tolerate anesthesia for his procedure. The patient also had a CT scan of the chest demonstrating stable pulmonary nodules. He does have extensive emphysema. Overall the patient has been doing well after he is quit smoking. We did do alpha-1 testing which was completely normal. will go ahead and follow-up in 1 year. If the patient develops any symptoms prior to that he is call the office for an earlier assessment. 09/26/2023 the patient is here for a pulmonary follow-up visit. Overall he is doing fairly well from respiratory status. He continues with this tobacco cessation. He continues with the Trelegy inhaler. Does not really use his rescue inhaler often. Typically less than twice a week. He does have dyspnea on exertion specially going up a flight of stairs. Explained to him that not only does have COPD but he has also been more anemic in the last few months that is also contributing to his breathing. In addition to that he is gained some weight. He is scheduled to have a repeat CT scan in the summer subsequently her follow-up in the fall with PFTs. At that point will plan to get him scheduled for pulmonary rehabilitation. For now he can work on his other issues that he is having such as the anemia and his musculoskeletal discomforts. 12/23/2023 the patient is here for pulmonary follow-up visit. He was recently hospitalized with pneumonia and COPD exacerbation. His chest x-ray did personally reviewed demonstrating a right-sided opacity moderate in size. He was placed on antibiotics steroids and oxygen. Quickly after few days he had a repeat x-ray again personally by me demonstrating interval resolution of the process. I suggest that possibly was not just an infectious process but inflammatory process as well. The patient had been having some vomiting so the therefore micro aspirations into the lung and aspiration pneumonitis is also in differential. I did review her CT scan that he had previously done in early 2023 with relatively minimal changes to the right hemithorax dust with some scarring. The patient is scheduled to have a repeat CT scan sometime about mid December. Will follow-up those findings. In the meantime he is on oxygen. He is having hard tank carrying the portable oxygen tanks. We were able to do another 6 minute walk test. The patient was able to maintain a pulse ox of 92% at rest which is reassuring. This was on room air. Then he was ambulated he did desaturate down to 88%. He was then placed on 2 L pulse and his pulse ox was low in the 90s. Therefore he was placed on 3 L pulse in the lot better. Therefore will going to request a conserving valve with a be sudden therefore him. This would be a lot easier for him to carry. In addition to that will also request a portable oxygen concentrator the provide better portability outside of the home. Will at least start the process through [facility] as they have thrown protocols to provide such devices. He will continue with current respiratory therapy. He is currently getting physical therapy at home. Therefore will wait to consider pulmonary rehabilitation in the future. He is reluctant at this time. 03/31/2024 the patient is here for a pulmonary follow-up visit. Overall he is doing well. He is actually feeling better. He is walking regularly. He is using his oxygen with good effect. He is wondering if he still needs the oxygen at nighttime. Therefore will do an overnight oximetry on room air with the hope that he does not qualify any longer so we can discontinue that. But for now he should continue to use it. The patient also had a CT scan through the lung cancer screening program demonstrating a concerning 1.1 cm pulmonary nodule in the right upper lobe. Therefore, he was set up for a PET scan. He did have the PET scan but it was actually in reducing size and no significant FDG activity. Therefore the fact that the nodule is decreasing in size is very reassuring. However, they did document that he does have a new nodule measuring 6 mm. This is to small for PET scan yield. Therefore, he will need to have a repeat CT scan in 6 months for the new nodule. He also states he does have significant back pain and recently was started on morphine. I discouraged him to continue the morphine. He will talk to his primary care doctor about discontinuing the morphine and finding alternative. The morphine can worsen his respiratory drive and potentially worsen his respiratory failure. The patient also the PET scan has some FDG activity around the GE junction of the hiatal hernia. He does follow-up with GI regularly. [facility] Medical History (Updated 12/24/23 @ 00:02 by Background Daandion) COPD (chronic obstructive pulmonary disease) Chronic hypoxemic respiratory failure Bipolar 1 disorder Nonischemic cardiomyopathy Ascending aorta dilatation Atrial fibrillation with rapid ventricular response Hypertension Hyperlipidemia COPD (chronic obstructive pulmonary disease) Emphysema lung Pulmonary nodules Opacity of lung on imaging study Nicotine dependence, cigarettes, uncomplicated History of alcohol abuse GERD (gastroesophageal reflux disease) Tubular adenoma of colon Generalized anxiety disorder Depression BPH (benign prostatic hyperplasia) Osteoporosis Edentulous Bilateral tinnitus Compression fracture of T7 vertebra Cervical spondylosis Compression fracture of body of thoracic vertebra Surgical History Hx of kyphoplasty History of surgery on left wrist (~03/21/10) Hx of endoscopy Hx of colonoscopy (~02/13/06) Hx of cataract surgery (~07/02/10) History of appendectomy History of gastric surgery Family History Mother Renal failure Father History of depression Brother Colon cancer Social History Household Members: Significant Other Housing: House Are you a primary nonfarm animal caretaker to a significant other at home: No Do you presently have visiting nurse or other home services: No Alcohol intake: never Patient Tobacco Use Status: Former Tobacco user Tobacco use type: Cigarette Cigarette Packs Per Day: 0.5 Years Smoked: 55 e-Cigarette/Vaping Use: Former Use Second Hand Smoke Exposure: No Advance Directives Date on File: 09/02/22 service: No Current occupational status: unemployed and disabled 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 Review of Systems Const Reports difficulty sleeping ENT Reports no additional complaints and Reports neck pain Card Denies chest pain, Reports dyspnea and Reports dyspnea on exertion Resp Reports as per HPI, Reports cough, Denies hemoptysis, Denies pain on inspiration, Denies pain with cough, Reports dyspnea and Reports dyspnea on exertion GI Reports bloating and Reports heartburn Musc Reports back pain, Reports myalgias, Reports limited range of motion, Reports muscle weakness (GENERALISED ) and Reports neck pain Neuro Reports no additional complaints and Reports radicular pain Psych Reports depression (ON MEDS ) Physical Exam Vital Signs: Last Vital Signs Pulse 85 03/31/24 10:35 BP 118/70 03/31/24 10:35 Pulse Ox 99 03/31/24 10:35 Oxygen Delivery Method Room Air 03/31/24 10:35 BMI result Body Mass Index 28.3 Last Vital Signs Temp 98.0 F 08/28/22 07:30 Pulse 88 08/28/22 07:48 Resp 18 08/28/22 07:48 BP 110/60 08/28/22 07:30 Pulse Ox 94 08/28/22 07:30 O2 Del Method 08/28/22 07:30 O2 Flow Rate 2.5 08/28/22 07:30 BMI result Body Mass Index 28.5 Const General: alert Neck Neck: Yes normal visual inspection, Yes full ROM and Yes no lymphadenopathy Chest Chest palpation & inspection: normal inspection of the chest Resp Effort & Inspection: normal respiratory effort Auscultation: diminished lung sounds Cardio Rate: regular rate Rhythm: abnormal rhythm Heart sounds: S1 normal heart sound present and S2 normal heart sound present GI Palpation (GI): Soft to palpation and nontender Auscultation: normal bowel sounds Back/Spine/Pelvis Back: back tenderness Skin General skin exam: rashes and/or lesions noted Quality Reporting (2019) Adult ([facility] 138/08/14/68) Smoking risk assessment performed?: Yes Patient Tobacco Use Status: Former Tobacco user Assessment & Plan Assessment & Plan (1) Chronic hypoxemic respiratory failure: Code(s): J96.11 - Chronic respiratory failure with hypoxia Category: Medical (2) Pulmonary nodules: Code(s): R91.8 - Other nonspecific abnormal finding of lung field Category: Medical (3) COPD (chronic obstructive pulmonary disease): Code(s): J44.9 - Chronic obstructive pulmonary disease, unspecified Category: Medical Qualifiers: COPD type: emphysema Emphysema type: centrilobular Qualified Code(s): J43.2 - Centrilobular emphysema (4) Dyspnea: Code(s): R06.00 - Dyspnea, unspecified Category: Medical Qualifiers: Dyspnea type: dyspnea on exertion Qualified Code(s): R06.09 - Other forms of dyspnea Plan Continue Trelegy inhaler 100 continue oxygen: 3l/pulse with activity with cerserving tank and 2l/min while sleeping with concentrator. Would also benefit from a POC for better protability outside of the home overnight oximetry on RA BARBARA as needed consider pulmonary rehab Repeat CT chest in 6 months F/U in 6 months Orders: Orders Overnight Pulse Oximetry Today J96.11 - Chronic respiratory failure with hypoxia CT chest wo IV con 6 Months R91.1 - Solitary pulmonary nodule Coding Level of Care Code Est Pt Level 4 (99104) Complex EM visit Add On G2211 Diagnoses Chronic hypoxemic respiratory failure J96.11 Pulmonary nodules R91.8 Centrilobular emphysema J43.2 COPD type: emphysema Emphysema type: centrilobular Dyspnea on exertion R06.09 Dyspnea type: dyspnea on exertion Time Spent (min) 18
== END 2024-03-31 11:01 | disposition home or self-care (01) ==
PROVIDERS: PCP Student in an Organized Health Care Education/Training Program; Visit Provider Hospitalist
DX: J96.11 Chronic respiratory failure with hypoxia (principal); R91.8 Other nonspecific abnormal finding of lung field; J43.2 Centrilobular emphysema
CPT/HCPCS: 99214; G2211

== ENCOUNTER → 2024-03-31 10:29 | Outpatient (BNVA) | payer MEDICARE, MEDICAID, SELFPAY | PROVIDERS: PCP Student in an Organized Health Care Education/Training Program; Visit Provider Hospitalist | DX: J43.2 Centrilobular emphysema (principal); J96.11 Chronic respiratory failure with hypoxia; R91.8 Other nonspecific abnormal finding of lung field; F17.210 Nicotine dependence, cigarettes, uncomplicated; Z99.81 Dependence on supplemental oxygen | CPT/HCPCS: 99212 ==

== ENCOUNTER 2024-04-23 07:46 | Day surgery (SDC) | payer MEDICARE, MEDICAID, SELFPAY ==
--- NOTE | 2023-11-05 14:38 | HO.ANESPROP2 ---
HPI - Anesthesia Eval Consult details Narrative: 68yo M for Colonoscopy s/p cataract 07/2023 s/p EGD 06/2023 with MAC (during inpt for GIB) Cardiac cleared for colo PCP cleared prior to cataract Eliquis for afib PMFSH Active Problems Active Problems: All Active Problems GI bleed (Acute) Scapholunate instability (Acute) Right wrist pain (Acute) Pre-op chest exam (Acute) BPH (benign prostatic hyperplasia) (Acute) Compression fracture of lumbar vertebra (Acute) Right lower lobe pneumonia (Acute) Screening PSA (prostate specific antigen) (Acute) Microscopic hematuria (Acute) Degeneration, intervertebral disc, lumbosacral (Acute) Atrial fibrillation with rapid ventricular response (Acute) Pneumonia (Acute) Compression fracture of T9 vertebra (Acute) Pulmonary nodule (Acute) Right clavicle fracture (Acute) COVID-19 (Acute) Chronic idiopathic constipation (Acute) Small bowel motility disorder (Acute) Hematemesis with nausea (Acute) Chronic heart failure (Acute) Dysphagia (Acute) Erosive esophagitis (Acute) Arthritis of both elbows (Acute) Systolic dysfunction (Acute) COPD (chronic obstructive pulmonary disease) (Acute) Smoker (Acute) Hemorrhoids (Acute) Abdominal bloating (Acute) Rectal prolapse (Acute) Glaucoma (Acute) Peptic ulcer disease (Acute) Osteoporosis (Acute) Pneumonia (Acute) Compression fracture of body of thoracic vertebra (Acute) Tubular adenoma of colon (Acute) Dyspnea (Acute) Personal history of nicotine dependence (Acute) Past Medical History Medical History Compression fracture of T7 vertebra Cervical spondylosis Bilateral tinnitus Ascending aorta dilatation Opacity of lung on imaging study Tubular adenoma of colon Generalized anxiety disorder Edentulous Cardiomyopathy Bipolar 1 disorder Emphysema lung Ascending aortic aneurysm Atrial fibrillation Osteoporosis Pneumonia Compression fracture of body of thoracic vertebra History of alcohol abuse CHF exacerbation Compression fracture of thoracic spine, non-traumatic Nonischemic cardiomyopathy Tubular adenoma of colon Dyspnea Pulmonary nodules COPD (chronic obstructive pulmonary disease) Personal history of nicotine dependence Hyperlipidemia Constipation GERD (gastroesophageal reflux disease) Depression Hypertension Family History Family History Mother Renal failure Father History of depression Brother Colon cancer Family history of problems with anesthesia: No Surgical History Surgical History Hx of kyphoplasty History of surgery on left wrist (~03/21/10) Hx of endoscopy Hx of colonoscopy (~02/13/06) Hx of cataract surgery (~07/02/10) History of appendectomy History of gastric surgery History of Problems with Anesthesia: No Social History Social History Household Members: None Housing: Apartment Are you a primary child care center assistant director to a significant other at home: No Do you presently have visiting nurse or other home services: No Alcohol intake: never Patient Tobacco Use Status: Former Tobacco user Quit Date: 2 yrs ago Tobacco use type: Cigarette Cigarette Packs Per Day: 0.5 Years Smoked: 55 e-Cigarette/Vaping Use: Former Use Second Hand Smoke Exposure: No Advance Directives Date on File: 09/02/22 service: No Current occupational status: unemployed and disabled 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 Meds Allergies Allergy/AdvReac Type Severity Reaction Status Date / Time No Known Allergies Allergy Verified 10/24/23 10:37 [No Known Allergies*] Home Medications ?Medication ?Instructions ?Recorded ?Confirmed ?Last Taken ?Type latanoprost 0.005 % eye drops 1 drp ophthalmic (eye) BEDTIME 03/27/20 07/31/23 07/08/23 History albuterol sulfate 90 mcg/actuation 2 puff inhalation Q4-6H PRN 07/31/23 07/31/23 Unknown History aerosol inhaler (Ventolin HFA) wheezing lidocaine 5 % topical patch 1 patch topical DAILY 07/31/23 07/31/23 Unknown History metoclopramide HCl 10 mg tablet 10 mg PO QIDACHS 07/31/23 07/31/23 Unknown History naloxone 4 mg/actuation nasal spray 1 spray intranasal DIRECTED 07/31/23 07/31/23 Unknown History psyllium husk 3 gram/3 gram oral 5.12 g PO DAILY 07/31/23 07/31/23 Unknown History powder quetiapine 300 mg tablet 300 mg PO BEDTIME 07/31/23 07/31/23 Unknown History simvastatin 20 mg tablet 20 mg PO QPM 07/31/23 07/31/23 Unknown History tizanidine 2 mg tablet 2 mg PO BID PRN muscle spasm 09/26/23 Unknown History trazodone 100 mg tablet 200 mg PO BEDTIME PRN 09/26/23 Unknown History ferrous gluconate 324 mg (38 mg mg PO DAILY 10/24/23 Unknown History iron) tablet furosemide 20 mg tablet 20 mg PO DAILY 10/24/23 Unknown History omeprazole 20 mg capsule,delayed 20 mg PO BID 10/24/23 Unknown History release Exam Pertinent Lab Results Pertinent Lab Results: Laboratory Tests 07/09/23 07/09/23 07/09/23 16:35 21:12 22:18 WBC 7.1 RBC 4.73 Hgb 10.5 L D Hct 35.6 L MCV 75.3 L MCH 22.2 L MCHC 29.5 L RDW 17.0 H Plt Count 275 MPV 9.9 Immature Gran % (Auto) 0.3 Neut % (Auto) 67.1 Lymph % (Auto) 23.5 [place] % (Auto) 7.4 Eos % (Auto) 1.3 Baso % (Auto) 0.4 Lymph # (Auto) 1.7 [place] # (Auto) 0.5 Eos # (Auto) 0.1 Baso # (Auto) 0.0 Abs Immat Gran (auto) 0.02 Absolute Neuts (auto) 4.8 Absolute Nucleated RBC 0.000 Nucleated RBC % (auto) 0.0 ESR PT 12.7 INR 1.0 Sodium 139 Potassium 4.8 Chloride 108 Carbon Dioxide 25 Anion Gap 11 L BUN 16 Creatinine 1.24 Estim Creat Clear Calc 63.4 Estimated GFR 58 Random Glucose 112 Calcium 9.0 D Magnesium 2.1 Iron 17 L TIBC 321 % Saturation 5 L Unsat Iron Binding 304 Total Bilirubin 0.4 AST 18 ALT 18 Alkaline Phosphatase 79 Total Protein 7.8 Albumin 4.1 Lipase 20 Stool Occult Blood POSITIVE Blood Type O Positive Antibody Screen NEGATIVE 07/10/23 07/10/23 07/11/23 04:59 14:05 07:45 WBC 5.9 4.4 L RBC 3.87 L 3.75 L Hgb 8.6 L 8.4 L Hct 29.2 L 28.0 L MCV 75.5 L 74.7 L MCH 22.2 L 22.4 L MCHC 29.5 L 30.0 L RDW 17.0 H 16.8 H Plt Count 227 190 MPV 10.5 9.7 Immature Gran % (Auto) 0.3 Neut % (Auto) 54.5 Lymph % (Auto) 33.8 [place] % (Auto) 9.7 Eos % (Auto) 1.4 Baso % (Auto) 0.3 Lymph # (Auto) 2.0 [place] # (Auto) 0.6 Eos # (Auto) 0.1 Baso # (Auto) 0.0 Abs Immat Gran (auto) 0.02 Absolute Neuts (auto) 3.2 Absolute Nucleated RBC 0.000 0.000 Nucleated RBC % (auto) 0.0 0.0 ESR 16 H PT INR Sodium 141 Potassium 4.6 Chloride 110 H Carbon Dioxide 24 Anion Gap 12 BUN 17 H Creatinine 0.88 Estim Creat Clear Calc 89.3 Estimated GFR > 60 Random Glucose 90 Calcium 8.2 L D Magnesium Iron TIBC % Saturation Unsat Iron Binding Total Bilirubin AST ALT Alkaline Phosphatase Total Protein Albumin Lipase Stool Occult Blood Blood Type Antibody Screen Narrative Narrative: EKG 06/2023 Vent. Rate : 097 BPM Atrial Rate : 097 BPM P-R Int : 148 ms QRS Dur : 072 ms QT Int : 358 ms P-R-T Axes : 051 054 090 degrees QTc Int : 454 ms Normal sinus rhythm Nonspecific T wave abnormality Abnormal ECG When compared with ECG of 13-NOV-2022 06:08, ST no longer depressed in Anterolateral leads Nonspecific T wave abnormality now evident in Inferior leads Nonspecific T wave abnormality now evident in Anterolateral leads ECHO 2021 Conclusions: - 1. Mildly reduced LV systolic function with LVEF of 45-50% 2. Normal cardiac valvular Doppler 3. Normal RV systolic pressure 4. At least mildly dilated ascending aorta at 4.3 cm 5. No gross pericardial effusion Assessment and Plan Assessment Anesthesia Assessment: Chart Reviewed Final Anesthetic Review Family History of Problems with Anesthesia: No History of Problems with Anesthesia: No
[2024-04-21 12:33] VITALS: BMI 29.2
--- NOTE | 2024-04-23 08:31 | MHC.SHP ---
Pre-Procedural Eval Section A - 24 Hr Update-Section A only Date of Service: 04/23/24 Section B - Complete if H&P > 30 days Chief Complaint: Surveillance for colon polyps Relevant Family History (Specify if Yes): Yes Relevant Social History: Tobacco Use (Former smoker) Present Medications: see Short Stay Collaborative assessment Medical History: Significant History (Compression fracture of T7 vertebra Cervical spondylosis Bilateral tinnitus Ascending aorta dilatation Opacity of lung on imaging study Tubular adenoma of colon Generalized anxiety disorder Edentulous Cardiomyopathy Bipolar 1 disorder Emphysema lung Ascending aortic aneurysm Atrial fibrillation Oste) History of Previous Operations: Relevant previous surgery/procedure and date(s) (Hx of kyphoplasty History of surgery on left wrist (~03/21/10) Hx of endoscopy Hx of colonoscopy (~02/13/06) Hx of cataract surgery (~07/02/10) History of appendectomy History of gastric surgery) Allergies: Allergies Allergy/AdvReac Type Severity Reaction Status Date / Time No Known Allergies Allergy Verified 03/31/24 10:39 [No Known Allergies*] Review of Systems Sugical H&P ROS: Negative: Constitution, Cardiovascular, Respiratory and Gastrointestinal Exam Surgical H&P Exam: Normal: Heart, Normal: Lungs, Normal: Extremities and Normal: Abdomen Plan Diagnosis/Plan: Unchanged I have reviewed the history and physical and performed a pertinent physical examination on my patient. No changes have occurred unless specified. Time Spent With Patient Time: Total time managing care of this patient today ____ minutes.
[2024-04-23 08:40] VITALS: BP 100/80; PULSE 89; RESP 22; TEMP 36.9; O2SAT 94; BMI 29.0
[2024-04-23] MEDS: Lactated Ringers 1,000 ML 50 ML IVCONT (09:03)
--- NOTE | 2024-04-23 09:47 | HO.ANESPROP2 ---
[facility] Active Problems Active Problems: All Active Problems GI bleed (Acute) Scapholunate instability (Acute) Compression fracture of lumbar vertebra (Acute) Microscopic hematuria (Acute) Degeneration, intervertebral disc, lumbosacral (Acute) Compression fracture of T9 vertebra (Acute) Pulmonary nodule (Acute) Right clavicle fracture (Acute) Chronic idiopathic constipation (Acute) Small bowel motility disorder (Acute) Hematemesis with nausea (Acute) Chronic heart failure (Acute) Dysphagia (Acute) Erosive esophagitis (Acute) Arthritis of both elbows (Acute) Systolic dysfunction (Acute) Rectal prolapse (Acute) Glaucoma (Acute) Peptic ulcer disease (Acute) Chronic hypoxemic respiratory failure (Acute) Nicotine dependence, cigarettes, uncomplicated (Acute) BPH (benign prostatic hyperplasia) (Acute) Tubular adenoma of colon (Acute) Osteoporosis (Acute) Compression fracture of body of thoracic vertebra (Acute) Past Medical History Medical History (Updated 12/24/23 @ 00:02 by Jennyfer Deluna) Chronic hypoxemic respiratory failure Nicotine dependence, cigarettes, uncomplicated Compression fracture of T7 vertebra Cervical spondylosis Bilateral tinnitus Ascending aorta dilatation Opacity of lung on imaging study Generalized anxiety disorder Edentulous Bipolar 1 disorder Emphysema lung BPH (benign prostatic hyperplasia) Osteoporosis Atrial fibrillation with rapid ventricular response Compression fracture of body of thoracic vertebra History of alcohol abuse Nonischemic cardiomyopathy Tubular adenoma of colon Pulmonary nodules COPD (chronic obstructive pulmonary disease) Hyperlipidemia COPD (chronic obstructive pulmonary disease) GERD (gastroesophageal reflux disease) Depression Hypertension Family History Family History Mother Renal failure Father History of depression Brother Colon cancer Family history of problems with anesthesia: No Surgical History Surgical History (Updated 04/21/24 @ 12:19 by Jaki Orantes RN) Hx of cystoscopy Hx of kyphoplasty History of surgery on left wrist (~03/21/10) Hx of endoscopy Hx of colonoscopy (~02/13/06) Hx of cataract surgery (~07/02/10) History of appendectomy History of gastric surgery History of Problems with Anesthesia: No Social History Social History Household Members: Significant Other Housing: House Are you a primary home care nurse to a significant other at home: No Do you presently have visiting nurse or other home services: No Alcohol intake: never Patient Tobacco Use Status: Former Tobacco user Tobacco use type: Cigarette Cigarette Packs Per Day: 0.5 Years Smoked: 55 e-Cigarette/Vaping Use: Former Use Second Hand Smoke Exposure: No Have you been hit, kicked, punched, or otherwise hurt by someone within the past year? 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 Meds Allergies Allergy/AdvReac Type Severity Reaction Status Date / Time No Known Allergies Allergy Verified 03/31/24 10:39 [No Known Allergies*] Active Medications: Current Medications Lactated Ringer's (Lr) 1,000 mls @ 50 mls/hr IVCONT .Q20H YESSENIA Last Admin: 04/23/24 09:03 Dose: 50 mls/hr Naloxone HCl (Naloxone Hcl 0.4 Mg/Ml Vial) 0.04 mg IVPUSH Q5M PRN PRN Reason: Excessive sedation or RR < 8 Home Medications ?Medication ?Instructions ?Recorded ?Confirmed ?Last Taken ?Type latanoprost 0.005 % eye drops 1 drp ophthalmic (eye) BEDTIME 03/27/20 04/21/24 12/11/23 History albuterol sulfate 90 mcg/actuation 2 puff inhalation Q4-6H PRN 07/31/23 12/12/23 Unknown History aerosol inhaler (Ventolin HFA) wheezing simvastatin 20 mg tablet 20 mg PO QPM 07/31/23 04/21/24 12/11/23 History ferrous gluconate 324 mg (38 mg 324 mg PO DAILY 10/24/23 04/21/24 12/11/23 History iron) tablet furosemide 20 mg tablet 20 mg PO DAILY 10/24/23 04/21/24 12/11/23 History ascorbic acid (vitamin C) 250 mg 250 mg PO DAILY 12/12/23 04/21/24 12/11/23 History tablet morphine 15 mg tablet,extended 15 mg PO BID 12/12/23 12/12/23 12/11/23 History release sotalol 80 mg tablet 80 mg PO Q12H 12/12/23 04/21/24 12/11/23 History Oxygen Home Use 12/23/23 Unknown History sertraline 25 mg tablet 25 mg PO DAILY 12/23/23 04/21/24 Unknown History apixaban 5 mg tablet (Eliquis) 5 mg PO BID 04/21/24 04/21/24 Unknown History Exam Height,Weight and Vital Signs: Height 5 ft 11 in Weight 94.3 kg Last Vital Signs Temp 98.5 F 04/23/24 08:40 Pulse 89 04/23/24 08:40 Resp 22 H 04/23/24 08:40 BP 100/80 04/23/24 08:40 Pulse Ox 94 04/23/24 08:40 O2 Del Method Nasal Cannula 04/23/24 08:40 Airway Mallampati Class: II (edentulous) TM Dist: >3cm Neck ROM: Full Heart: rrr Lungs: cta Assessment and Plan Assessment Anesthesia Assessment: Anesthesia Plan Discussed and Chart Reviewed Final Anesthetic Review Family History of Problems with Anesthesia: No History of Problems with Anesthesia: No NPO: Yes ASA Class: III Final Preanesthetic Review: No Changes in Pt Med Stat, Meds/Allgs Chart Reviewed and Consent Obtained/Reviewed Patient Risk: Intermediate Procedure Risk: Low Anesthetic Plan Anesthetic Plan: MAC: Disposition: Standard PACU
[2024-04-23 10:36] VITALS: BP 109/84; PULSE 68; RESP 16; TEMP 36.1; O2SAT 94
--- NOTE | 2024-04-23 10:38 | P.OPN-COLO_ITS ---
Colonoscopy Operative Note Operative Note Date of Service: 04/23/24 Narrative: COLONOSCOPY TILL CECUM WITH SNARE POLYPECTOMY, SUBMUCOSAL INJECTION AND HEMOCLIP PLACEMENT Pre-op diagnosis: Surveillance for colon polyps. Post-op diagnosis:? Colon polyps, ? polyp versus mass in the rectum, Diverticulosis, hemorrhoids Endoscopist:? Luca Gonzales MD Anesthesia:?MAC Consent: Indications for the procedure and potential complications of bleeding, perforation, reaction to medications and missed diagnosis were discussed with the patient and informed consent was obtained. Instrument: Olympus CF H 190 L variable stiffness adult colonoscope Monitoring: Vital signs and clinical assessment, intermittent blood pressure monitoring, continuous EKG monitoring, Pulse oximetry and Carbon Dioxide monitoring were done throughout the procedure. Please see anesthesia flowsheet. Colon withdrawl time was 31 minutes. Procedure: The patient was placed in the left lateral decubitis position and pre-procedure medications were administered. After a digital rectal examination of the ano-rectum, the video colonoscope was inserted into the rectum and advanced through the colon to the cecum. The colonoscope was slowly withdrawn in a retrograde panoramic fashion and the colon mucosa was carefully examined including a retroflexed view of the rectum. Findings and interventions are described below. Procedure Difficulty: without difficulty - colon was long and tortuous and there was some loop formation Findings: Terminal Ileum: Not evaluated Cecum: A 5-6 mm sessile polyp - removed with a cold snare. A 2 cms flat polyp - raised with 2 cc of Eleview and removed with a stiff hot snare. Polypectomy site was closed with 2 hemoclips. A 3 cms x 1 cms elongated flat polyp (adjacent to the 2nd polyp). Polyp was raised with 3 cc of Eleview removed piecemeal with a stiff hot snare. Polypectomy site was closed with 3 hemoclips and marked with Ketty ink Ascending Colon: A 10 cms sessile polyp in the mid ascending colon - removed with a hot snare Transverse Colon: Normal Descending Colon: Moderate diverticulosis Sigmoid Colon: Moderate diverticulosis Rectum: A 15 to 18 cms polyp versus mass with central ulceration just inside the anal verge (seen on retroflexed exam). Multiple biopsies were obtained. Some bleeding noted from biopsy site - contr olled with cautery using the with snare tip. Ano-rectum: Moderate internal hemorrhoids Colon preparation: Excellent after some irrigation. [place] Bowel Preparation Scale Right colon; 3 Transverse colon: 3 Left colon; 3 (0 = Unprepared colon segment with mucosa not seen due to solid stool that cannot be cleared. 1 = Portion of mucosa of the colon segment seen, but other areas of the colon segment not well seen due to staining, residual stool and/or opaque liquid. 2 = Minor amount of residual staining, small fragments of stool and/or opaque liquid, but mucosa of colon segment seen well. 3 = Entire mucosa of colon segment seen well with no residual staining, small fragments of stool or opaque liquid) Impression and Post Procedure Diagnosis: Colonoscopy Findings: Four small to medium sized polyps were removed A few 3-5 mm polyp seen and not removed due to excessive length of the procedure. A 15 to 18 cms polyp versus mass with central ulceration just inside the anal verge (seen on retroflexed exam). Multiple biopsies were obtained. Some bleeding noted from biopsy site - controlled with cautery using the with snare tip. Moderate diverticulosis seen in the left colon Moderate hemorrhoids on retroflexed exam. Plan: Pt has a FU appointment on 05/07/24 with Nelda Chavez NP. Repeat sigmoidoscopy with colon prep if biopsies of the rectal lesion show adenomatous tissue or intramucosal cancer. Above findings were reviewed with the patient and relevant handouts were given and the discharge area. BIOPSIES SHOWED: A. Colon, cecal polyps: Tubular adenomas (multiple pieces); negative for high- grade dysplasia and carcinoma. B. Colon, ascending, polyp: Tubular adenoma; negative for high-grade dysplasia and carcinoma. C. Colon, rectal polyp: High-grade dysplasia/intramucosal adenocarcinoma (multiple pieces, see comment) within adenoma. Comment: (C): The tissue is fragmented and the margin cannot be evaluated, or assessed for a more aggressive lesion in any residual tissue. Complete excision of this lesion is recommended. Immunostains pending; addendum to follow. Pt will be scheduled for a Flex Sigmoidoscopy with Colon prep in 4-6 weeks for removal of rectal polyp (not removed during colonoscopy because of suspicion for rectal cancer)
[2024-04-23 10:51] VITALS: BP 112/83; PULSE 63; RESP 16; TEMP 36.1; O2SAT 96
== END 2024-04-23 12:02 | disposition home or self-care (01) ==
PROVIDERS: PCP Internal Medicine; Visit Provider Internal Medicine Gastroenterology
PROC: 0DJD8ZZ Inspection of Lower Intestinal Tract, Via Natural or Artificial Opening Endoscopic (ICD-10-PCS; CPT 45378; principal; 2024-04-23 10:10)
DX: Z12.11 Encounter for screening for malignant neoplasm of colon (principal); C20 Malignant neoplasm of rectum; D12.0 Benign neoplasm of cecum; D12.2 Benign neoplasm of ascending colon; K57.30 Diverticulosis of large intestine without perforation or abscess without bleeding; K64.8 Other hemorrhoids; K56.2 Volvulus; K22.10 Ulcer of esophagus without bleeding; K59.9 Functional intestinal disorder, unspecified; K59.04 Chronic idiopathic constipation; D64.9 Anemia, unspecified; I50.9 Heart failure, unspecified; K62.3 Rectal prolapse; K27.9 Peptic ulcer, site unspecified, unspecified as acute or chronic, without hemorrhage or perforation; Z86.0101 Personal history of adenomatous and serrated colon polyps
CPT/HCPCS: 45381; 45385; 88305; 88341; 88342; J2003; J2371; J2704

== ENCOUNTER → 2024-04-23 07:46 | Outpatient (BNV) | payer MEDICARE, MEDICAID, SELFPAY | PROVIDERS: PCP Internal Medicine; Visit Provider Internal Medicine Gastroenterology | DX: Z12.11 Encounter for screening for malignant neoplasm of colon (principal); Z86.0100 Personal history of colon polyps, unspecified; D12.8 Benign neoplasm of rectum; D12.0 Benign neoplasm of cecum; K57.90 Diverticulosis of intestine, part unspecified, without perforation or abscess without bleeding | CPT/HCPCS: 45380; 45381; 45385 ==

== ENCOUNTER 2024-05-07 14:38 | Outpatient (AMB) | payer MEDICARE, MEDICAID, SELFPAY ==
--- NOTE | 2024-05-07 14:48 | MHC.OFFVIS ---
Vital Signs 05/07/24 14:52 Height 5 ft 11 in Weight 207 lb 3.752 oz BMI 28.9 BP 110/66 Blood Pressure Location Lt brachial Position Sitting Pulse 68 Pulse Source Pulse Oximeter Pulse Oximetry (%) 94 Oxygen Delivery Method Room Air Comment 2 lpm o2 for exertion only. Intake Visit Reasons: s/p colonoscopy Intake Note: Relevant Flags or Indicators ? Requires Supervisor Belt And Link Assembly? [place] Varela presents in office today for a scheduled s/p colo. CC; No recent labs, diagnostics, or med orders placed. ? Relevant GI Sx as reported per pt? Reflux - w/ bitter taste and noticeable bloody sputum. ? Bloating ? Hx of any recent surgeries? [place] w/ Dr. Gonzales. Supervisor Belt And Link Assembly Required: Yes Supervisor Belt And Link Assembly Services: Supervisor Belt And Link Assembly Offered & Declined Supervisor Belt And Link Assembly Name: Family Information Interpreted: non-clinical & clinical Accompanied by: Significant Other Allergies No Known Allergies [No Known Allergies*] Allergy (Verified 09/21/24 12:07) HPI HPI s/p colonoscopy: Details: Assessment & Plan (1) Chronic idiopathic constipation: Code(s): K59.04 - Chronic idiopathic constipation (2) Small bowel motility disorder: Code(s): K59.9 - Functional intestinal disorder, unspecified (3) Erosive esophagitis: Code(s): K22.10 - Ulcer of esophagus without bleeding (4) Tubular adenoma of colon: Comment: 2016 scope = TA repeat 5 years aeb Code(s): D12.6 - Benign neoplasm of colon, unspecified Plan [place] #Sister translates per pt request His current GI regimen consists of omeprazole 20 mg twice a day, psyllium husk fiber, metoclopramide 10 mg 4 times a day, Linzess 145 micro g daily and famotidine 40 mg at bedtime for breakthrough and liquid carafate. He is feeling much better, swallowing is improved, has occasoni loose stools but not so dark (carafate will help this as well). No CIC. No nausea. Keep 11/20 appt. COLONOSCOPY 04/23/24 Findings: Terminal Ileum: Not evaluated Cecum: A 5-6 mm sessile polyp - removed with a cold snare. A 2 cms flat polyp - raised with 2 cc of Eleview and removed with a stiff hot snare. Polypectomy site was closed with 2 hemoclips. A 3 cms x 1 cms elongated flat polyp (adjacent to the 2nd polyp). Polyp was raised with 3 cc of Eleview removed piecemeal with a stiff hot snare. Polypectomy site was closed with 3 hemoclips and marked with Ketty ink Ascending Colon: A 10 cms sessile polyp in the mid ascending colon - removed with a hot snare Transverse Colon: Normal Descending Colon: Moderate diverticulosis Sigmoid Colon: Moderate diverticulosis Rectum: A 15 to 18 cms polyp versus mass with central ulceration just inside the anal verge (seen on retroflexed exam). Multiple biopsies were obtained. Some bleeding noted from biopsy site - controlled with cautery using the with snare tip. Ano-rectum: Moderate internal hemorrhoids Impression and Post Procedure Diagnosis: Colonoscopy Findings: Four small to medium sized polyps were removed A few 3-5 mm polyp seen and not removed due to excessive length of the procedure. A 15 to 18 cms polyp versus mass with central ulceration just inside the anal verge (seen on retroflexed exam). Multiple biopsies were obtained. Some bleeding noted from biopsy site - controlled with cautery using the with snare tip. Moderate diverticulosis seen in the left colon Moderate hemorrhoids on retroflexed exam. Plan: Pt has a FU appointment on 05/07/24 with Nelda Chavez NP. Repeat sigmoidoscopy with colon prep if biopsies of the rectal lesion show adenomatous tissue or intramucosal cancer. BIOPSY Received: 04/23/24 ADDENDUM REPORT Addendum Addendum #1 (C): Immunohistochemical results: - MLH1: Preserved (intact of nuclear expression). - MSH2: Preserved (intact nuclear expression). - MSH6: Preserved (intact nuclear expression). - PMS2: Preserved (intact of nuclear expression). - CDX2: Positive. NOTE: Results are NEGATIVE for Mismatch repair defect/ Dunn Syndrome-related lesion, however a small percentage of this form of disease may not be identified by this technique. Electronically Signed By: Nicole Chavis 05/03/24 1040 Diagnosis A. Colon, cecal polyps: Tubular adenomas (multiple pieces); negative for high-grade dysplasia and carcinoma. B. Colon, ascending, polyp: Tubular adenoma; negative for high-grade dysplasia and carcinoma. C. Colon, rectal polyp: High-grade dysplasia/intramucosal adenocarcinoma (multiple pieces, see comment) within adenoma. Comment: (C): The tissue is fragmented and the margin cannot be evaluated, or assessed for a more aggressive lesion in any residual tissue. Complete excision of this lesion is recommended. Immunostains pending; addendum to follow. TODAY'S VISIT [place] # translates per patient request His current GI regimen consists of omeprazole 20 mg twice a day, psyllium husk fiber, metoclopramide 10 mg 4 times a day, Linzess 145 micro g daily and famotidine 40 mg at bedtime for breakthrough. He feels this is controlling his symptomatology well and he satisfied with his GI regimen. He has not yet been contacted to schedule the flex sig. it appears this he has it scheduled in September. This was ordered because there was a spot of high-grade dysplasia on his last colonoscopy. Return office visit after flex sig. [facility] Medical History (Updated 09/24/24 @ 09:36 by JUAN Low) Compression fracture of lumbar vertebra Compression fracture of T9 vertebra Right clavicle fracture Dysphagia Compression fracture of body of thoracic vertebra Hematemesis with nausea Acute exacerbation of emphysema Chronic hypoxemic respiratory failure Nicotine dependence, cigarettes, uncomplicated Compression fracture of T7 vertebra Cervical spondylosis Bilateral tinnitus Ascending aorta dilatation Opacity of lung on imaging study Generalized anxiety disorder Edentulous Bipolar 1 disorder Emphysema lung BPH (benign prostatic hyperplasia) Osteoporosis Atrial fibrillation with rapid ventricular response History of alcohol abuse Nonischemic cardiomyopathy Tubular adenoma of colon Pulmonary nodules COPD (chronic obstructive pulmonary disease) Hyperlipidemia COPD (chronic obstructive pulmonary disease) GERD (gastroesophageal reflux disease) Depression Hypertension Surgical History Hx of cystoscopy Hx of kyphoplasty History of surgery on left wrist (~03/21/10) Hx of endoscopy Hx of colonoscopy (~02/13/06) Hx of cataract surgery (~07/02/10) History of appendectomy History of gastric surgery Family History Mother Renal failure Father History of depression Brother Colon cancer Social History Household Members: Significant Other Housing: House Are you a primary child care associate to a significant other at home: No Do you presently have visiting nurse or other home services: No Alcohol intake: never Patient Tobacco Use Status: Former Tobacco user Tobacco use type: Cigarette Cigarette Packs Per Day: 0.5 Years Smoked: 55 e-Cigarette/Vaping Use: Former Use Second Hand Smoke Exposure: No Advance Directives Date on File: 09/02/22 service: No Current occupational status: unemployed and disabled 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 Review of Systems Const Denies fatigue, Denies fever(s), Denies night sweats, Denies poor appetite and Denies weight loss ENT Reports Normal hearing present, Denies dental pain, Denies dysphagia, Denies hearing loss, Denies mouth pain, Denies odynophagia, Denies throat swelling, Denies tongue swelling and Reports other (Dentition adequate) Card Reports no additional complaints and Reports dyspnea on exertion Resp Reports dyspnea on exertion GI Details: Denies abdominal pain, Denies melena, Reports bloating, Denies hematochezia, Reports constipation, Denies GI cramping, Denies dysphagia, Denies excessive flatus, Denies early satiety, Reports heartburn, Denies diarrhea, Denies nausea, Denies odynophagia, Denies vomiting and Denies hematemesis Skin/Breast Denies pruritus, Denies lesions, Denies rash and Denies jaundice Neuro Reports Normal hearing present and Denies Abnormal speech present Endo Denies fatigue Aller/Immun Denies throat swelling and Denies tongue swelling Physical Exam Vital Signs: Last Vital Signs Pulse 68 05/07/24 14:52 BP 110/66 05/07/24 14:52 Pulse Ox 94 05/07/24 14:52 Oxygen Delivery Method Room Air 05/07/24 14:52 BMI result Body Mass Index 28.9 Const General: cooperative, no acute distress, well developed and well groomed Nutritional Appearance: well nourished and overweight Orientation/consciousness: oriented to person, oriented to place and oriented to time Limitations: language barrier HEENT Head: Yes normocephalic and Yes atraumatic Eyes General: appearance normal, both eyes and all related structures Pupils: Equal, round and reactive pupils present Neck Neck: Yes normal visual inspection and Yes no lymphadenopathy Thyroid: Thyroid normal Resp Effort & Inspection: normal respiratory effort and able to speak in complete sentences Auscultation: clear to auscultation bilaterally Cardio Rate: regular rate Rhythm: regular rhythm Heart sounds: Normal, physiologic split S2 sound present Peripheral pulses: radial pulses present and posterior tibial pulses present GI Inspection: No distended and No Abdominal panniculus present Palpation (GI): Soft to palpation, nontender, no guarding, not rigid and No hepatosplenomegaly present Percussion: Yes normal to percussion Auscultation: normal bowel sounds Rectal Exam - Male: Yes deferred Skin General skin exam: no rashes or lesions noted, turgor normal, skin not dry, no jaundice, No spider nevi and no striae Rashes: no rashes Nails: normal Neuro General: oriented to person, oriented to place and oriented to time Cranial nerves: Yes Equal, round and reactive pupils present and Yes Normal hearing present Speech: No Abnormal speech present Extrem General: Yes normal to inspection, No clubbing, No cyanosis and No edema Psych Appearance: grossly normal and well kempt Mental Status: mental status grossly normal Speech and movement: Normal speech and movement present Affect: normal affect Attitude: cooperative Thought process: Normal thought process present and not confabulating Thought content: Normal thought content present Insight: Limited insight present (Psych) Judgement: Limited judgement present (Psych) Assessment & Plan Assessment & Plan (1) High grade dysplasia in colonic adenoma: Comment: on 04/2024 scope Code(s): D12.6 - Benign neoplasm of colon, unspecified Category: Medical (2) GI bleed: Code(s): K92.2 - Gastrointestinal hemorrhage, unspecified Category: Medical (3) Chronic idiopathic constipation: Code(s): K59.04 - Chronic idiopathic constipation Category: Medical (4) Small bowel motility disorder: Code(s): K59.9 - Functional intestinal disorder, unspecified Category: Medical (5) Erosive esophagitis: Code(s): K22.10 - Ulcer of esophagus without bleeding Category: Medical Plan [place] # translates per patient request His current GI regimen consists of omeprazole 20 mg twice a day, psyllium husk fiber, metoclopramide 10 mg 4 times a day, Linzess 145 micro g daily and famotidine 40 mg at bedtime for breakthrough. He feels this is controlling his symptomatology well and he satisfied with his GI regimen. He has not yet been contacted to schedule the flex sig. it appears this he has it scheduled in September. This was ordered because there was a spot of high-grade dysplasia on his last colonoscopy. Return office visit after flex sig. Orders: Orders Sigmoidoscopy - GI Use Only 05/07/24 D12.6 - Benign neoplasm of colon, unspecified Medications: New peg 3350-electrolytes 236-22.74-6.74 -5.86 gram (Golytely) until fecal effluent is clear; do not exceed a total volume of 2,000 mL 240 mL PO Q10M 4,000 mL 0RF 1 day Z12.11 - Encounter for screening for malignant neoplasm of colon Refilled linaclotide (Linzess) 145 mcg PO QAM 90 caps 2RF Coding Level of Care Code Est Pt Level 3 (28594) Diagnoses High grade dysplasia in colonic adenoma D12.6 GI bleed K92.2 Chronic idiopathic constipation K59.04 Small bowel motility disorder K59.9 Erosive esophagitis K22.10
[2024-05-07 14:52] VITALS: BP 110/66; PULSE 68; O2SAT 94; BMI 28.9
== END 2024-05-07 16:08 | disposition home or self-care (01) ==
PROVIDERS: PCP Student in an Organized Health Care Education/Training Program; Visit Provider Nurse Practitioner
DX: D12.6 Benign neoplasm of colon, unspecified (principal); K92.2 Gastrointestinal hemorrhage, unspecified; K59.04 Chronic idiopathic constipation; K59.9 Functional intestinal disorder, unspecified; K22.10 Ulcer of esophagus without bleeding
CPT/HCPCS: 99213

== ENCOUNTER → 2024-05-07 14:38 | Outpatient (BNVA) | payer MEDICARE, MEDICAID, SELFPAY | PROVIDERS: PCP Student in an Organized Health Care Education/Training Program; Visit Provider Nurse Practitioner | DX: K59.04 Chronic idiopathic constipation (principal); K59.9 Functional intestinal disorder, unspecified; K22.10 Ulcer of esophagus without bleeding; D12.6 Benign neoplasm of colon, unspecified; K92.2 Gastrointestinal hemorrhage, unspecified; Z98.890 Other specified postprocedural states | CPT/HCPCS: 99212 ==

== ENCOUNTER 2024-05-13 11:29 | Day surgery (SDC) | payer MEDICARE, MEDICAID, SELFPAY ==
--- NOTE | 2024-05-12 12:02 | P.CONAN_ITS ---
Documented by User: Nai Rush NP 05/12/24 12:10 HPI - Anesthesia Eval Consult details Narrative: 68yo M for Colonoscopy s/p colo 04/23/24 with TIVA Chronic respiratory failure on supplemental O2. [place] [facility] [place] [facility] for afib, nonischemic CMP. Last visit available for review 10/2023 Eliquis for afib PMFSH Active Problems Active Problems: All Active Problems High grade dysplasia in colonic adenoma (Acute) GI bleed (Acute) Scapholunate instability (Acute) Compression fracture of lumbar vertebra (Acute) Microscopic hematuria (Acute) Degeneration, intervertebral disc, lumbosacral (Acute) Compression fracture of T9 vertebra (Acute) Pulmonary nodule (Acute) Right clavicle fracture (Acute) Chronic idiopathic constipation (Acute) Small bowel motility disorder (Acute) Hematemesis with nausea (Acute) Chronic heart failure (Acute) Dysphagia (Acute) Erosive esophagitis (Acute) Arthritis of both elbows (Acute) Systolic dysfunction (Acute) Rectal prolapse (Acute) Glaucoma (Acute) Peptic ulcer disease (Acute) Chronic hypoxemic respiratory failure (Acute) Nicotine dependence, cigarettes, uncomplicated (Acute) BPH (benign prostatic hyperplasia) (Acute) Tubular adenoma of colon (Acute) Osteoporosis (Acute) Compression fracture of body of thoracic vertebra (Acute) Past Medical History Medical History Acute exacerbation of emphysema Chronic hypoxemic respiratory failure Nicotine dependence, cigarettes, uncomplicated Compression fracture of T7 vertebra Cervical spondylosis Bilateral tinnitus Ascending aorta dilatation Opacity of lung on imaging study Generalized anxiety disorder Edentulous Bipolar 1 disorder Emphysema lung BPH (benign prostatic hyperplasia) Osteoporosis Atrial fibrillation with rapid ventricular response Compression fracture of body of thoracic vertebra History of alcohol abuse Nonischemic cardiomyopathy Tubular adenoma of colon Pulmonary nodules COPD (chronic obstructive pulmonary disease) Hyperlipidemia COPD (chronic obstructive pulmonary disease) GERD (gastroesophageal reflux disease) Depression Hypertension Family History Family History Mother Renal failure Father History of depression Brother Colon cancer Family history of problems with anesthesia: No Surgical History Surgical History Hx of cystoscopy Hx of kyphoplasty History of surgery on left wrist (~03/21/10) Hx of endoscopy Hx of colonoscopy (~02/13/06) Hx of cataract surgery (~07/02/10) History of appendectomy History of gastric surgery History of Problems with Anesthesia: No Social History Social History Household Members: Significant Other Housing: House Are you a primary attending ambulatory care to a significant other at home: No Do you presently have visiting nurse or other home services: No Alcohol intake: never Patient Tobacco Use Status: Former Tobacco user Tobacco use type: Cigarette Cigarette Packs Per Day: 0.5 Years Smoked: 55 e-Cigarette/Vaping Use: Former Use Second Hand Smoke Exposure: No Advance Directives Date on File: 09/02/22 service: No Current occupational status: unemployed and disabled 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 Meds Allergies Allergy/AdvReac Type Severity Reaction Status Date / Time No Known Allergies Allergy Verified 05/07/24 14:50 [No Known Allergies*] Home Medications ?Medication ?Instructions ?Recorded ?Confirmed ?Last Taken ?Type latanoprost 0.005 % eye drops 1 drp ophthalmic (eye) BEDTIME 03/27/20 04/21/24 12/11/23 History simvastatin 20 mg tablet 20 mg PO QPM 07/31/23 04/21/24 12/11/23 History ferrous gluconate 324 mg (38 mg 324 mg PO DAILY 10/24/23 04/21/24 12/11/23 History iron) tablet furosemide 20 mg tablet 20 mg PO DAILY 10/24/23 04/21/24 12/11/23 History ascorbic acid (vitamin C) 250 mg 250 mg PO DAILY 12/12/23 04/21/24 12/11/23 History tablet morphine 15 mg tablet,extended 15 mg PO BID 12/12/23 12/12/23 12/11/23 History release sotalol 80 mg tablet 80 mg PO Q12H 12/12/23 04/21/24 12/11/23 History Oxygen Home Use 12/23/23 Unknown History sertraline 25 mg tablet 25 mg PO DAILY 12/23/23 04/21/24 Unknown History apixaban 5 mg tablet (Eliquis) 5 mg PO BID 04/21/24 04/21/24 05/11/24 History quetiapine 50 mg tablet 100 mg PO BEDTIME 05/07/24 Unknown History trazodone 50 mg tablet 25 - 50 mg PO BEDTIME 05/07/24 Unknown History verapamil 120 mg 24 hr 120 mg PO QAM 05/07/24 Unknown History capsule,extended release Exam Narrative Narrative: EKG 11/2023 Vent. Rate : 078 BPM Atrial Rate : 078 BPM P-R Int : 152 ms QRS Dur : 076 ms QT Int : 424 ms P-R-T Axes : 050 049 054 degrees QTc Int : 483 ms Normal sinus rhythm Nonspecific ST abnormality Prolonged QT Abnormal ECG When compared to the previous EKG of Normal sinus rhythm has replaced Atrial fibrillation ECHO 2022 per cardiology note LVEF 60-65% No signif valve abn Assessment and Plan Assessment Anesthesia Assessment: Chart Reviewed Final Anesthetic Review Family History of Problems with Anesthesia: No History of Problems with Anesthesia: No Documented by User: Carie Hdez MD 05/13/24 15:56 HPI - Anesthesia Eval Consult details Narrative: 68yo M for Colonoscopy s/p colo 04/23/24 with TIVA Chronic respiratory failure on supplemental O2. [place] [facility] [place] [facility] for afib, nonischemic CMP. Last visit available for review 10/2023 Eliquis for afib. Last dose 05/11/24 [facility] Past Medical History Medical History Acute exacerbation of emphysema Chronic hypoxemic respiratory failure Nicotine dependence, cigarettes, uncomplicated Compression fracture of T7 vertebra Cervical spondylosis Bilateral tinnitus Ascending aorta dilatation Opacity of lung on imaging study Generalized anxiety disorder Edentulous Bipolar 1 disorder Emphysema lung BPH (benign prostatic hyperplasia) Osteoporosis Atrial fibrillation with rapid ventricular response Compression fracture of body of thoracic vertebra History of alcohol abuse Nonischemic cardiomyopathy Tubular adenoma of colon Pulmonary nodules COPD (chronic obstructive pulmonary disease) Hyperlipidemia COPD (chronic obstructive pulmonary disease) GERD (gastroesophageal reflux disease) Depression Hypertension Family History Family History Mother Renal failure Father History of depression Brother Colon cancer Family history of problems with anesthesia: No Surgical History Surgical History Hx of cystoscopy Hx of kyphoplasty History of surgery on left wrist (~03/21/10) Hx of endoscopy Hx of colonoscopy (~02/13/06) Hx of cataract surgery (~07/02/10) History of appendectomy History of gastric surgery History of Problems with Anesthesia: No Social History Social History Household Members: Significant Other Housing: House Are you a primary attending ambulatory care to a significant other at home: No Do you presently have visiting nurse or other home services: No Alcohol intake: never Patient Tobacco Use Status: Former Tobacco user Tobacco use type: Cigarette Cigarette Packs Per Day: 0.5 Years Smoked: 55 e-Cigarette/Vaping Use: Former Use Second Hand Smoke Exposure: No Advance Directives Date on File: 09/02/22 service: No Current occupational status: unemployed and disabled 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 Meds Allergies Allergy/AdvReac Type Severity Reaction Status Date / Time No Known Allergies Allergy Verified 05/07/24 14:50 [No Known Allergies*] Home Medications ?Medication ?Instructions ?Recorded ?Confirmed ?Last Taken ?Type latanoprost 0.005 % eye drops 1 drp ophthalmic (eye) BEDTIME 03/27/20 04/21/24 12/11/23 History simvastatin 20 mg tablet 20 mg PO QPM 07/31/23 04/21/24 12/11/23 History ferrous gluconate 324 mg (38 mg 324 mg PO DAILY 10/24/23 04/21/24 12/11/23 History iron) tablet furosemide 20 mg tablet 20 mg PO DAILY 10/24/23 04/21/24 12/11/23 History ascorbic acid (vitamin C) 250 mg 250 mg PO DAILY 12/12/23 04/21/24 12/11/23 History tablet morphine 15 mg tablet,extended 15 mg PO BID 12/12/23 12/12/23 12/11/23 History release sotalol 80 mg tablet 80 mg PO Q12H 12/12/23 04/21/24 12/11/23 History Oxygen Home Use 12/23/23 Unknown History sertraline 25 mg tablet 25 mg PO DAILY 12/23/23 04/21/24 Unknown History apixaban 5 mg tablet (Eliquis) 5 mg PO BID 04/21/24 04/21/24 05/11/24 History quetiapine 50 mg tablet 100 mg PO BEDTIME 05/07/24 Unknown History trazodone 50 mg tablet 25 - 50 mg PO BEDTIME 05/07/24 Unknown History verapamil 120 mg 24 hr 120 mg PO QAM 05/07/24 Unknown History capsule,extended release Exam Height,Weight and Vital Signs: Height 5 ft 11 in Weight 91.229 kg Vital Signs Temp Pulse Resp BP Pulse Ox O2 Del Method O2 Flow Rate 97.5 F 104 H 28 H 98/76 95 Nasal Cannula 2 05/13/24 14:15 05/13/24 14:15 05/13/24 14:15 05/13/24 14:15 05/13/24 14:15 05/13/24 14:15 05/13/24 14:15 Airway Mallampati Class: II TM Dist: >3cm Neck ROM: Full Loose/Missing/Broken Teeth: Yes (Edentulous) Heart: Irregularly irregular Lungs: CTAB Assessment and Plan Assessment Anesthesia Assessment: Anesthesia Plan Discussed and Chart Reviewed Final Anesthetic Review Family History of Problems with Anesthesia: No History of Problems with Anesthesia: No NPO: Yes ASA Class: III Final Preanesthetic Review: No Changes in Pt Med Stat, Meds/Allgs Chart Reviewed, Consent Obtained/Reviewed and Anes Risks/Benef Reviewed Patient Risk: Intermediate Procedure Risk: Low Assessment/Block/Sedation in SS: Assess/Block/Sedation-SS Anesthetic Plan Anesthetic Plan: TIVA Disposition: Standard PACU
[2024-05-13 14:12] VITALS: BMI 28.0
[2024-05-13 14:15] VITALS: BP 98/76; PULSE 104; RESP 28; TEMP 36.4; O2SAT 95
--- NOTE | 2024-05-13 14:26 | MHC.SHP ---
Pre-Procedural Eval Section A - 24 Hr Update-Section A only Date of Service: 05/13/24 The patient is an INPATIENT: No The patient has been examined within 24 hours of the surgical procedure. The History & Physical has been completed within 30 days and I have reviewed it.: Yes Section B - Complete if H&P > 30 days Chief Complaint: Polyp of colon Allergies: Allergies Allergy/AdvReac Type Severity Reaction Status Date / Time No Known Allergies Allergy Verified 05/07/24 14:50 [No Known Allergies*] Plan Diagnosis/Plan: Unchanged I have reviewed the history and physical and performed a pertinent physical examination on my patient. No changes have occurred unless specified. Time Spent With Patient Time: Total time managing care of this patient today ____ minutes.
--- NOTE | 2024-05-13 14:27 | HO.OPN-COLON ---
Colonoscopy Operative Note Operative Note Date of Service: 05/13/24 Narrative: Procedure NOT performed as pt went into AFib with RVR just as scope was inserted in the anorectum. The procedure was immediately aborted. See anesthesia flowsheet for details. The pt was ultimately transferred to ER by Dr Hdez after discussion with Cardiology.
[2024-05-13 14:40] VITALS: PULSE 118
--- NOTE | 2024-05-13 14:44 | PC.NURSE ---
patient was a 730am arrival time and called at 754am with no answer. patient arrived at 1130am but front facer was not told that the patient ended up arriving 4 hours late. brought patient in right away and prepped patient with junior accountant bookkeeper regarding his plan of care. front facer changed patients phone number to his sister to make sure hes receiving information properly. yesterdays pre-op call a voicemail was left with a junior accountant bookkeeper voicemail on 05/12/24 1245. [phone].
--- NOTE | 2024-05-13 14:50 | PC.NURSE ---
reverified with hooker inspector regarding patients eliquis and he stated he took eliquis on friday not friday. patient is aware that he needed to stop fro three days.
[2024-05-13 15:19] VITALS: BP 100/70; PULSE 84; RESP 16; TEMP 36.2; O2SAT 97
[2024-05-13 15:24] VITALS: BP 111/75; PULSE 89; RESP 16; O2SAT 95
[2024-05-13 15:29] VITALS: BP 110/71; PULSE 87; RESP 16; O2SAT 95
[2024-05-13 15:34] VITALS: BP 105/80; PULSE 90; RESP 16; TEMP 36.4; O2SAT 95
== END 2024-05-13 15:50 | disposition home or self-care (01) ==
PROVIDERS: PCP Internal Medicine; Visit Provider Internal Medicine
PROC: 0DJD8ZZ Inspection of Lower Intestinal Tract, Via Natural or Artificial Opening Endoscopic (ICD-10-PCS; CPT 45330; principal; 2024-05-13 09:30)
DX: Z12.11 Encounter for screening for malignant neoplasm of colon (principal); Z86.0101 Personal history of adenomatous and serrated colon polyps; Z53.09 Procedure and treatment not carried out because of other contraindication; I48.91 Unspecified atrial fibrillation; K59.04 Chronic idiopathic constipation; K59.9 Functional intestinal disorder, unspecified; J44.9 Chronic obstructive pulmonary disease, unspecified; K22.10 Ulcer of esophagus without bleeding; I10 Essential (primary) hypertension; J96.10 Chronic respiratory failure, unspecified whether with hypoxia or hypercapnia; Z99.81 Dependence on supplemental oxygen; Z79.899 Other long term (current) drug therapy; Z98.84 Bariatric surgery status; Z87.891 Personal history of nicotine dependence; Z56.0 Unemployment, unspecified
CPT/HCPCS: 45330; J1805; J2003; J2371; J2704

== ENCOUNTER → 2024-05-13 11:29 | Outpatient (BNV) | payer MEDICARE, MEDICAID, SELFPAY | PROVIDERS: PCP Internal Medicine; Visit Provider Internal Medicine | DX: K63.5 Polyp of colon (principal); Z53.09 Procedure and treatment not carried out because of other contraindication | CPT/HCPCS: 45378 ==

== ENCOUNTER 2024-05-13 16:07 | Emergency (ER) | payer MEDICARE, MEDICAID, SELFPAY ==
[2024-05-13 16:11] VITALS: BP 105/70; PULSE 85; RESP 18; TEMP 36.6; O2SAT 96; BMI 32.0
--- NOTE | 2024-05-13 16:30 | ECG_ITS ---
Test Reason : AFIB Blood Pressure : / mmHG Vent. Rate : 088 BPM Atrial Rate : 088 BPM P-R Int : 146 ms QRS Dur : 074 ms QT Int : 356 ms P-R-T Axes : 044 040 -62 degrees QTc Int : 430 ms Normal sinus rhythm ST & T wave abnormality, consider anterolateral ischemia Abnormal ECG When compared with ECG of 13-DEC-2023 21:59, Nonspecific T wave abnormality now evident in Inferior leads T wave inversion now evident in Anterolateral leads Referred By: Neo Ayala Electronically Signed By:ZULEMA JORDAN MD
--- NOTE | 2024-05-13 16:35 | ED.ARRPALP ---
HPI - Arrhythmia/Palpitations General Chief Complaint: Arrhythmia/Palpitations Stated Complaint: afib sent from short stay Time Seen by Provider: 05/13/24 16:10 Source: patient Mode of arrival: ambulatory Limitations: no limitations History of Present Illness ED Provider: brett TREJO narrative: Patient is sent nonischemic cardiomyopathy and paroxysmal atrial fibrillation on Eliquis sotalol and verapamil stopped Eliquis for 3 days for colonoscopy today while in the OR before procedure staff noticed patient does not AFib and sent the patient to patient came to the ER patient fell slight dizzy at that time does not feel atrial fibrillation otherwise no chest pain no shortness a breath Related Data Home Medications ?Medication ?Instructions ?Recorded ?Confirmed latanoprost 0.005 % eye drops 1 drp ophthalmic (eye) BEDTIME 03/27/20 04/21/24 simvastatin 20 mg tablet 20 mg PO QPM 07/31/23 04/21/24 ferrous gluconate 324 mg (38 mg 324 mg PO DAILY 10/24/23 04/21/24 iron) tablet furosemide 20 mg tablet 20 mg PO DAILY 10/24/23 04/21/24 ascorbic acid (vitamin C) 250 mg 250 mg PO DAILY 12/12/23 04/21/24 tablet morphine 15 mg tablet,extended 15 mg PO BID 12/12/23 12/12/23 release sotalol 80 mg tablet 80 mg PO Q12H 12/12/23 04/21/24 Oxygen Home Use 12/23/23 sertraline 25 mg tablet 25 mg PO DAILY 12/23/23 04/21/24 apixaban 5 mg tablet (Eliquis) 5 mg PO BID 04/21/24 04/21/24 quetiapine 50 mg tablet 100 mg PO BEDTIME 05/07/24 trazodone 50 mg tablet 25 - 50 mg PO BEDTIME 05/07/24 verapamil 120 mg 24 hr 120 mg PO QAM 05/07/24 capsule,extended release Previous Rx's ?Medication ?Instructions ?Recorded sucralfate 100 mg/mL oral 20 ml PO QNOON #1,000 mL 08/29/23 suspension (Carafate) abaloparatide (Tymlos) 80 mcg (0.04 mL) subcut DAILY 10/15/23 #1.56 mL albuterol sulfate 2.5 mg/3 mL 2.5 mg (3 mL) inhalation Q6H PRN 12/23/23 (0.083 %) solution for nebulization shortness of breath or wheezing 30 days #180 mL albuterol sulfate 90 mcg/actuation 2 inh inhalation Q6H PRN shortness 12/23/23 aerosol inhaler of breath or wheezing 30 days #18 grams cyclobenzaprine 10 mg tablet 10 mg PO TID PRN muscle spasm #60 01/21/24 tabs fluticasone fur. 100 mcg-umeclid 1 inh inhalation DAILY 30 days #60 02/16/24 62.5 mcg-vilant 25 mcg ea inhalat.powder (Trelegy Ellipta) omeprazole 20 mg capsule,delayed 20 mg PO BID #180 caps 02/24/24 release famotidine 40 mg tablet 40 mg PO BEDTIME PRN for heartburn 05/03/24 #90 tabs metoclopramide HCl 10 mg tablet 10 mg PO BID #60 tabs 05/03/24 linaclotide 145 mcg capsule 145 mcg PO QAM #90 caps 05/07/24 (Linzess) peg 3350-electrolytes 236 240 ml PO Q10M 1 day #4,000 mL 05/07/24 gram-22.74 gram-6.74 gram-5.86 gram solution (Golytely) Allergies Allergy/AdvReac Type Severity Reaction Status Date / Time No Known Allergies Allergy Verified 05/13/24 16:13 [No Known Allergies*] Review of Systems Review of Systems: Yes all other systems are reviewed and are negative PMFSH Past Medical History Medical History Acute exacerbation of emphysema Chronic hypoxemic respiratory failure Nicotine dependence, cigarettes, uncomplicated Compression fracture of T7 vertebra Cervical spondylosis Bilateral tinnitus Ascending aorta dilatation Opacity of lung on imaging study Generalized anxiety disorder Edentulous Bipolar 1 disorder Emphysema lung BPH (benign prostatic hyperplasia) Osteoporosis Atrial fibrillation with rapid ventricular response Compression fracture of body of thoracic vertebra History of alcohol abuse Nonischemic cardiomyopathy Tubular adenoma of colon Pulmonary nodules COPD (chronic obstructive pulmonary disease) Hyperlipidemia COPD (chronic obstructive pulmonary disease) GERD (gastroesophageal reflux disease) Depression Hypertension Surgical History Hx of cystoscopy Hx of kyphoplasty History of surgery on left wrist (~09/29/10) Hx of endoscopy Hx of colonoscopy (~02/13/06) Hx of cataract surgery (~07/02/10) History of appendectomy History of gastric surgery Family History Family History Mother Renal failure Father History of depression Brother Colon cancer Social History Social History Household Members: Significant Other Housing: House Are you a primary grounds caretaker to a significant other at home: No Do you presently have visiting nurse or other home services: No Alcohol intake: never Patient Tobacco Use Status: Former Tobacco user Tobacco use type: Cigarette Cigarette Packs Per Day: 0.5 Years Smoked: 55 e-Cigarette/Vaping Use: Former Use Second Hand Smoke Exposure: No Advance Directives: Yes Advance Directives on File: Yes Advance Directives Date on File: 09/02/22 Do you have a plan to hurt others: No Plan service: No Current occupational status: unemployed and disabled 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 Oriented X3. No acute distress. Eyes: PERRLA, No Nystagmus ENT: Pharynx normal. Oral Mucosa moist Neck: Normal inspection. Neck supple. CVS: Normal heart rate and rhythm. Pulses normal. Respiratory: No respiratory distress. Equal air entry bilateral, no wheezing/rales/rhonchi Abdomen: Soft and nontender. Bowel sounds are present, no mass palpable, no CVA tenderness Skin: Skin warm and dry. Normal skin color. Normal skin turgor. Extremities: No lower extremity edema. No calf tenderness Neuro: Oriented X 3. No motor deficit. No sensory deficit.No cerebellar signs , cranial nerves II-XII intact Medications Administered Discontinued Medications Generic Name Dose Route Start Last Admin Trade Name Freq PRN Reason Stop Dose Admin Apixaban 5 mg 05/13/24 16:49 05/13/24 17:29 Apixaban 5 Mg Tablet PO 05/13/24 16:50 5 mg ONCE ONE Administration Sotalol HCl 80 mg 05/13/24 18:04 05/13/24 19:09 Sotalol Hcl 80 Mg Tablet PO 05/13/24 18:05 80 mg ONCE ONE Administration Medical Decision Making Medical Decision Making [facility] Narrative: Patient has paroxysmal AFib with nonischemic cardiomyopathy on Eliquis sotalol and verapamil came here as before the colonoscopy patient had AFib at episode with lasted only for few minutes patient is off Eliquis procedure event then patient came to the ER with normal sinus rhythm will check the basic lab restart on Eliquis 1750: Patient is in AFib now with heart rate fluctuating between 120 and 130 will give patient sotalol and observe patient's stated normal sinus rhythm after sotalol during stay in the ER stable vitals discharge patient home advised to follow with funeral driver Lab Data [facility] Lab Attestation statement: I reviewed the patient's lab results. 05/13/24 17:07 05/13/24 17:07 Labs: Lab Results 05/13/24 Range/Units 17:07 WBC 7.7 (4.8-10.8) X10*3/uL RBC 4.71 (4.60-5.80) X10*6/uL Hgb 14.3 (14.0-18.0) g/dl Hct 42.6 (42.0-52.0) % MCV 90.4 (80.0-98.0) fL MCH 30.4 (27.0-33.0) pg MCHC 33.6 (31.0-36.0) g/dl RDW 13.1 (11.0-16.0) % Plt Count 204 (160-400) X10*3/uL MPV 9.3 L (9.4-12.4) fL Immature Gran % (Auto) 0.3 (0.0-0.4) % Neut % (Auto) 74.5 H (45-73) % Lymph % (Auto) 17.1 L (20-40) % Barnwell % (Auto) 7.2 (2-11) % Eos % (Auto) 0.6 (0-4) % Baso % (Auto) 0.3 (0-2) % Lymph # (Auto) 1.3 (1.2-4.9) X10*3/uL Barnwell # (Auto) 0.6 (0.1-1.2) X10*3/uL Eos # (Auto) 0.1 (0.0-0.4) X10*3/uL Baso # (Auto) 0.0 (0.0-0.2) X10*3/uL Abs Immat Gran (auto) 0.02 (0.00-0.03) X10*3/uL Absolute Neuts (auto) 5.8 (2.0-8.3) x10*3/uL Absolute Nucleated RBC 0.000 (0.0-0.012) X10*3/uL Nucleated RBC % (auto) 0.0 (0.0-0.2) /100WBC PT 12.4 (10.9-12.4) SEC INR 1.1 (0.9-1.1) APTT 25.4 L (26.0-36.8) SEC Sodium 141 (135-145) mmol/L Potassium 4.3 (3.3-5.1) mmol/L Chloride 108 (96-108) mmol/L Carbon Dioxide 20 L (22-29) mmol/L Anion Gap 17 (12-20) BUN 13 (9-16) mg/dL Creatinine 0.79 (0.5-1.4) mg/dL Estim Creat Clear Calc 98.8 Estimated GFR > 60 Random Glucose 97 (60-115) mg/dL Calcium 9.1 D (8.4-10.2) mg/dL Magnesium 1.9 (1.6-2.6) mg/dL Total Bilirubin 0.9 (0.0-1.0) mg/dL AST 22 (5-37) U/L ALT 20 (0-40) U/L Alkaline Phosphatase 59 (39-117) U/L Total Protein 7.1 (6.5-8.0) g/dL Albumin 3.6 (3.5-5.0) g/dL Independent Interpretation I performed an independent interpretation of an: EKG Interpretation: Normal sinus rhythm heart rate 88 beats per minute normal interval normal axis no acute ST-T changes no acute ischemia Discharge Plan Discharge Clinical Impression: Paroxysmal atrial fibrillation Patient Disposition: Home, Self-Care Instructions: A-fib (Atrial Fibrillation) (ED) Additional Instructions: Continue medications as prescribed by funeral driver and follow up with them for further management Prescriptions: No Action sucralfate [Carafate] 100 mg/mL suspension 20 ml PO QNOON Qty: 1000 11RF Tymlos 80 mcg (3,120 mcg/1.56 mL) pen injector 80 mcg subcut DAILY Qty: 1.56 11RF Rx Instructions: inject into abdomen; do not inject within 2 inches of belly button/navel; rotate sites cyclobenzaprine 10 mg tablet 10 mg PO TID PRN (Reason: muscle spasm) Qty: 60 0RF Trelegy Ellipta 100-62.5-25 mcg blister with device 1 inh inhalation DAILY 30 Days Qty: 60 11RF omeprazole 20 mg capsule,delayed release(DR/EC) 20 mg PO BID Qty: 180 0RF famotidine 40 mg tablet 40 mg PO BEDTIME PRN (Reason: for heartburn) Qty: 90 0RF metoclopramide HCl 10 mg tablet 10 mg PO BID Qty: 60 0RF Eliquis 5 mg Tablet 5 mg PO BID ascorbic acid (vitamin C) 250 mg tablet 250 mg PO DAILY morphine 15 mg tablet extended release 15 mg PO BID sotalol 80 mg tablet 80 mg PO Q12H simvastatin 20 mg tablet 20 mg PO QPM latanoprost 0.005 % drops 1 drp ophthalmic (eye) BEDTIME trazodone 50 mg tablet 25 - 50 mg PO BEDTIME quetiapine 50 mg tablet 100 mg PO BEDTIME verapamil 120 mg capsule,ext rel. pellets 24 hr 120 mg PO QAM Linzess 145 mcg capsule 145 mcg PO QAM Qty: 90 2RF peg 3350-electrolytes [Golytely] 236-22.74-6.74 -5.86 gram recon soln 240 ml PO Q10M 1 Days Qty: 4000 0RF Rx Instructions: until fecal effluent is clear; do not exceed a total volume of 2,000 mL ferrous gluconate 324 mg (38 mg iron) tablet 324 mg PO DAILY furosemide 20 mg tablet 20 mg PO DAILY sertraline 25 mg tablet 25 mg PO DAILY (DME) Oxygen Home Use Kit See Rx Instructions .Route Rx Instructions: As directed albuterol sulfate 2.5 mg /3 mL (0.083 %) solution for nebulization 2.5 mg inhalation Q6H PRN (Reason: shortness of breath or wheezing) 30 Days Qty: 180 11RF albuterol sulfate 90 mcg/actuation HFA aerosol inhaler 2 inh inhalation Q6H PRN (Reason: shortness of breath or wheezing) 30 Days Qty: 18 12RF Interventions: ED Discharge Assessment Last Done: 05/13/24 20:42 Discharge Date/Time: 05/13/24 20:43 Print Language: Malay
[2024-05-13 17:11] LABS: MANUAL DIFF FLAG NO
[2024-05-13 17:17] LABS: Basophils Percent Auto 0.3 % (0-2); Eosinophils Absolute Auto 0.1 X10*3/uL (0.0-0.4); Eosinophils Percent Auto 0.6 % (0-4); Hematocrit 42.6 % (42.0-52.0); Hemoglobin 14.3 g/dl (14.0-18.0); Imm Gran Abs Auto 0.02 X10*3/uL (0.00-0.03); Imm Gran Pct Auto 0.3 % (0.0-0.4); Lymphocytes Absolute Auto 1.3 X10*3/uL (1.2-4.9); Lymphocytes Percent Auto 17.1 % (20-40); Mean Corpuscular HGB Conc 33.6 g/dl (31.0-36.0); Mean Corpuscular Hemoglobin 30.4 pg (27.0-33.0); Mean Corpuscular Volume 90.4 fL (80.0-98.0); Mean Platelet Volume 9.3 fL (9.4-12.4); Monocytes Absolute Auto 0.6 X10*3/uL (0.1-1.2); Monocytes Percent Auto 7.2 % (2-11); Neutrophils Absolute Auto 5.8 x10*3/uL (2.0-8.3); Neutrophils Percent Auto 74.5 % (45-73); Platelet Count 204 X10*3/uL (160-400); Red Blood Count 4.71 X10*6/uL (4.60-5.80); Red Cell Distribution Width 13.1 % (11.0-16.0); White Blood Count 7.7 X10*3/uL (4.8-10.8)
[2024-05-13 17:21] LABS: INTERNATIONAL NORM RATIO 1.1 (0.9-1.1); Prothrombin Time 12.4 SEC (10.9-12.4)
[2024-05-13 17:24] LABS: Partial Thromboplastin Time 25.4 SEC (26.0-36.8)
[2024-05-13] MEDS: Apixaban 5 MG TABLET PO (17:29)
[2024-05-13 17:41] LABS: Alanine Aminotransferase 20 U/L (0-40); Albumin Level 3.6 g/dL (3.5-5.0); Anion Gap 17 (12-20); Aspartate Amino Transferase 22 U/L (5-37); Bilirubin Total 0.9 mg/dL (0.0-1.0); Blood Urea Nitrogen 13 mg/dL (9-16); Calcium 9.1 mg/dL (8.4-10.2); Carbon Dioxide 20 mmol/L (22-29); Chloride 108 mmol/L (96-108); Creatinine Clr Calc Pharmacy 98.8; Estimated Glomerular Filt Rate > 60; Glucose Random 97 mg/dL (60-115); Magnesium 1.9 mg/dL (1.6-2.6); Potassium 4.3 mmol/L (3.3-5.1); Sodium 141 mmol/L (135-145); Total Protein 7.1 g/dL (6.5-8.0)
--- NOTE | 2024-05-13 18:05 | ECG_ITS ---
Test Reason : A FIB Blood Pressure : / mmHG Vent. Rate : 114 BPM Atrial Rate : 000 BPM P-R Int : 000 ms QRS Dur : 080 ms QT Int : 336 ms P-R-T Axes : 000 040 197 degrees QTc Int : 463 ms Atrial fibrillation with rapid ventricular response ST & T wave abnormality, consider anterolateral ischemia Abnormal ECG When compared with ECG of 13-MAY-2024 16:30, Atrial fibrillation has replaced Sinus rhythm Referred By: Neo Ayala Electronically Signed By:ZULEMA JORDAN MD
[2024-05-13 18:41] VITALS: BP 120/82; PULSE 93; RESP 14; TEMP 36.6; O2SAT 97
[2024-05-13 18:53] LABS: Alkaline Phosphatase 59 U/L (39-117)
[2024-05-13] MEDS: Sotalol HCL 80 MG TABLET PO (19:09)
[2024-05-13 19:55] VITALS: BP 119/89; PULSE 78; RESP 20; TEMP 37; O2SAT 94
[2024-05-13 20:42] VITALS: BP 124/70; PULSE 78; RESP 16; TEMP 37; O2SAT 94
== END 2024-05-13 20:43 | disposition home or self-care (01) ==
PROVIDERS: Emergency Provider Internal Medicine
DX: I48.0 Paroxysmal atrial fibrillation (principal); I49.9 Cardiac arrhythmia, unspecified; R00.2 Palpitations; Z79.01 Long term (current) use of anticoagulants; Z79.899 Other long term (current) drug therapy; Z87.891 Personal history of nicotine dependence; Z12.11 Encounter for screening for malignant neoplasm of colon; Z86.0101 Personal history of adenomatous and serrated colon polyps; Z53.09 Procedure and treatment not carried out because of other contraindication; K59.04 Chronic idiopathic constipation; K59.9 Functional intestinal disorder, unspecified; J44.9 Chronic obstructive pulmonary disease, unspecified; K22.10 Ulcer of esophagus without bleeding; I10 Essential (primary) hypertension; J96.10 Chronic respiratory failure, unspecified whether with hypoxia or hypercapnia; Z99.81 Dependence on supplemental oxygen; Z98.84 Bariatric surgery status; Z56.0 Unemployment, unspecified
CPT/HCPCS: 36415; 80053; 83735; 85025; 85610; 85730; 93005; 99285; J1805; J2003; J2371; J2704

== ENCOUNTER → 2024-05-13 18:05 | Outpatient (BNV) | payer MEDICARE, MEDICAID, SELFPAY | PROVIDERS: Emergency Provider Internal Medicine; Visit Provider Internal Medicine Cardiovascular Disease | DX: R94.31 Abnormal electrocardiogram [ECG] [EKG] (principal) | CPT/HCPCS: 93010 ==

== ENCOUNTER 2024-05-18 09:17 | Outpatient (AMB) | payer MEDICARE, MEDICAID, SELFPAY ==
[2024-05-18 09:20] VITALS: BP 92/64; PULSE 85; BMI 31.2
--- NOTE | 2024-05-18 09:20 | MHC.OFFVIS ---
Vital Signs 05/18/24 09:20 Height 5 ft 8 in Weight 205 lb 7.533 oz BMI 31.2 BP 92/64 Blood Pressure Location Lt brachial Position Sitting Pulse 85 Pulse Source Pulse Oximeter Intake Visit Reasons: Osteoporosis-confirmed Intake Note: Patient present today for Osteoporosis office visit. Note Specialist Required: No Accompanied by: Sister Allergies No Known Allergies [No Known Allergies*] Allergy (Verified 05/18/24 09:32) HPI Comments Details: 68 YO M with is seen in consultation at the request of PCP for Osteoporosis. First diagnosed in Jun 2022 .Had compression fx Not Received treatment in the past . history of pathologic fracture T7, T9 and U0cypcvga car but no ONJ. Has no servings of dietary calcium per day Takes Calcium supplement 600 mg BID in divided doses. Takes 1600 IU of Vitamin D daily. Denies ever using PPI, Takes anticoagulant Eliquis , antiepileptic or glucocorticoid medication. Does not weight bearing exercise Fracture history: as above Height loss: No No history of Kidney stones: Has family history of Osteoporosis in mother but no hip fracture. Not UTD on dental cleanings and sees dentist every 6 months. No planned upcoming dental work or extractions. DXA dated 09/26/22 :FINDINGS: AP SPINE L1-L4: BMD 0.862 g/cm2, Z-score -2.6, T-score -3.0, osteoporosis. LEFT FEMUR, NECK: BMD 0.737 g/cm2, Z-score -1.5, T-score -2.6, osteoporosis. LEFT FEMUR, TOTAL: BMD 0.804 g/cm2, Z-score -1.5, T-score -2.1, osteopenia. IDENTIFIED RISK FACTORS: Low calcium intake, history of fracture (adult). HISTORY OF FRACTURE: Thoracic spine status post vertebral augmentation T7 and T9. Clavicle. MEDICATIONS: Calcium, vitamin D. MM/XR DEXA axial skeleton IMPRESSION: 1. DIAGNOSIS: Osteoporosis based on the lowest T-score value of -3.0 in the lumbar spine applying World Health Organization crite On Tymlos for 8 mos . Had 2 additional fx before starting Tymlos Doing well On Tymlos. No fx since last visit. No unusual back pain -less pain . Been on Tymlos since 11/2022 . About to transition of [facility] Medical History Acute exacerbation of emphysema Chronic hypoxemic respiratory failure Nicotine dependence, cigarettes, uncomplicated Compression fracture of T7 vertebra Cervical spondylosis Bilateral tinnitus Ascending aorta dilatation Opacity of lung on imaging study Generalized anxiety disorder Edentulous Bipolar 1 disorder Emphysema lung BPH (benign prostatic hyperplasia) Osteoporosis Atrial fibrillation with rapid ventricular response Compression fracture of body of thoracic vertebra History of alcohol abuse Nonischemic cardiomyopathy Tubular adenoma of colon Pulmonary nodules COPD (chronic obstructive pulmonary disease) Hyperlipidemia COPD (chronic obstructive pulmonary disease) GERD (gastroesophageal reflux disease) Depression Hypertension Surgical History Hx of cystoscopy Hx of kyphoplasty History of surgery on left wrist (~03/21/10) Hx of endoscopy Hx of colonoscopy (~02/13/06) Hx of cataract surgery (~07/02/10) History of appendectomy History of gastric surgery Family History Mother Renal failure Father History of depression Brother Colon cancer Social History Household Members: Significant Other Housing: House Are you a primary hospice care transitions coordinator to a significant other at home: No Do you presently have visiting nurse or other home services: No Alcohol intake: never Patient Tobacco Use Status: Former Tobacco user Tobacco use type: Cigarette Cigarette Packs Per Day: 0.5 Years Smoked: 55 e-Cigarette/Vaping Use: Former Use Second Hand Smoke Exposure: No Advance Directives Date on File: 09/02/22 service: No Current occupational status: unemployed and disabled 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 Secondary workup was negative. Is about to complete the course of Tymlos Plan is transition to Prolia next month. We will also schedule follow-up DEXA in 6 months. Orders: Orders XR DEXA axial skeleton 6 Months M81.0 - Age-related osteoporosis without current pathological fracture Coding Level of Care Code Est Pt Level 3 (26020) Diagnoses Osteoporosis M81.0
== END 2024-05-18 09:41 | disposition home or self-care (01) ==
PROVIDERS: PCP Internal Medicine; Visit Provider Internal Medicine Endocrinology, Diabetes & Metabolism
DX: M81.0 Age-related osteoporosis without current pathological fracture (principal)
CPT/HCPCS: 99213

== ENCOUNTER → 2024-05-18 09:17 | Outpatient (BNVA) | payer MEDICARE, MEDICAID, SELFPAY | PROVIDERS: PCP Internal Medicine; Visit Provider Internal Medicine Endocrinology, Diabetes & Metabolism | DX: M81.0 Age-related osteoporosis without current pathological fracture (principal) | CPT/HCPCS: 99212 ==

== ENCOUNTER 2024-06-30 10:03 | Outpatient (REF) | payer MEDICARE, MEDICAID, SELFPAY ==
[2024-06-30 11:07] LABS: Albumin Level 3.9 g/dL (3.5-5.0); Anion Gap 10 (12-20); Blood Urea Nitrogen 20 mg/dL (9-16); Calcium 8.7 mg/dL (8.4-10.2); Carbon Dioxide 28 mmol/L (22-29); Chloride 107 mmol/L (96-108); Estimated Glomerular Filt Rate > 60; Glucose Random 113 mg/dL (60-115); Sodium 141 mmol/L (135-145)
== END 2024-06-30 10:04 | disposition home or self-care (01) ==
LOC: HO.LAB 10:03
PROVIDERS: PCP Internal Medicine; Visit Provider Internal Medicine Endocrinology, Diabetes & Metabolism
DX: M81.0 Age-related osteoporosis without current pathological fracture (principal)
CPT/HCPCS: 36415; 80048; 82040

== ENCOUNTER 2024-07-05 09:59 | Outpatient (AMB) | payer MEDICARE, MEDICAID, SELFPAY ==
--- NOTE | 2024-07-05 10:15 | AM.OFFVISNUR ---
Intake Visit Reasons: prolia Allergies No Known Allergies [No Known Allergies*] Allergy (Verified 05/18/24 09:32) Office Meds Prolia 60 mg/mL subcutaneous syringe Performing Provider: Xavier Grant MD Performing Location[place] [facility] [place] [facility] Administered by: Flor Rodriguez RN on 07/05/24 10:15 Dose Route Admin Location Dispensed Lot Number Expiration Date NDC Photo Tech 60 mg subcut right upper arm 1 mL [id number] 12/20/26 76280-357-54 AMGEN Comments: Visit interpreted by Lenny Sigala. Pt signed consent form. Pt tolerated injection well. Pt aware to watch for signs of redness, warmth or swelling at injection site and to call if this were to occur. Pt observed x15 minutes following injection without incident. Pt aware to complete labs 1-2 weeks prior to prolia injection. Pt scheduled for f/u in x6 months for prolia and to see Dr. Grant. Pt accompanied by sister to visit. Assessment & Plan Assessment & Plan Orders: Orders AMB Denosumab Injection Practice Supplied Today M81.0 - Age-related osteoporosis without current pathological fracture Medications: New Prolia (denosumab) 60 mg subcut ONCE 1 mL 0RF NS M81.0 - Age-related osteoporosis without current pathological fracture
== END 2024-07-05 10:15 | disposition home or self-care (01) ==
PROVIDERS: PCP Internal Medicine
DX: M81.0 Age-related osteoporosis without current pathological fracture (principal)

== ENCOUNTER → 2024-07-05 09:59 | Outpatient (BNVA) | payer MEDICARE, MEDICAID, SELFPAY | PROVIDERS: PCP Internal Medicine | DX: M81.0 Age-related osteoporosis without current pathological fracture (principal) | CPT/HCPCS: 96372; J0897 ==

== ENCOUNTER 2024-07-21 12:11 | Outpatient (REF) | payer MEDICARE, MEDICAID, SELFPAY ==
--- NOTE | ~2024-07-21 | XR_ITS ---
. EXAMINATION: X-ray lumbar spine, 4 views. CLINICAL INFORMATION: Low back pain. Compression fractures, pain in the left side. Status post kyphoplasty. COMPARISON: Correlated to CT dated October 16, 2023. TECHNIQUE: AP oblique and lateral views. FINDINGS: Radiopaque material at L1 and L2 vertebral bodies, both size. Osteopenia versus 2 processes. Superior endplate compression deformities at L1 and L2 representing 50% volume loss. Endplate sclerosis and marginal osteophyte formation with decreased intervertebral disc height at L5-S1 and L4-5 levels. No gross malalignment. XR/XR lumbar spine 4V min IMPRESSION: Status post kyphoplasty, L1 and L2. Multilevel lumbar spondylosis. Electronically signed by: Samuel Andre MD 07/21/2024 12:52 PM [facility]
--- OUTSIDE RECORDS SUMMARY | 2024-07-21 14:32 | XMS_ITS | Encounter Summary ---
Author Organization [email or web address] Address [address] [place] [address] Care Team Providers Care Camera Machinist Name Role Phone Rigoberto Us MD Primary Care Provide r Timothy Broussard RN Unavailable [phone] Encounter Details Date Type Department Care Team ([facility] st Contact Info) Description 10/17/2023 Orders Only [facility] [address] [place] [address] Provider, MD [place] Social History Tobacco Use Types Packs/Day Years Used Date Smoking Tobacco: Former Cigarettes Passive Smoke Exposure: Past Smokeless Tobacco: Never Alcohol Use Standard Drinks/Week Comments Not Currently 0 (1 standard drink = 0.6 oz pur e alcohol) Depression Answer Date Recorded Patient Health Questionnaire-9 Score 8 08/26/2023 Patient Health Questionnaire-9 Score 8 08/26/2023 Last PHQ-9: Questionnaire Data Not on file 0 08/26/2023 Housing Stability Answer Date Recorded What is your housing situation today? I have yasmeenmariam jennings 07/14/[address] you li ve. Do you have problems with any of the following? None of the above 07/14/2023 Food Insecurity Answer Date Recorded Within the past 12 months, y ou worried that your food would run out before you got money to buy more: Never True 04/09/2023 Within the past 12 months,th e food you bought just didn't last and you didn't have enough money to get more: Never True Transportation Answer Date Recorded In the past 12 months, has l ack of transportation kept you from medical appts, meetings, work or from getting things needed for daily living? No 04/09/2023 Utilities Answer Date Recorded In the past 12 months, has t he electric, gas, oil or water company threatened to shut off services in your home? No 04/09/2023 Depression Answer Date Recorded Patient Health Questionnaire-2 Score 2 08/26/2023 Sex and Gender Information Value Date Recorded Sex Assigned at Male 04/22/2022 10:14 AM EDT Legal Sex Male 10:14 AM EDT Gender Identity Male 04/22/2022 10:14 AM EDT Sexual Orientation Straight 04/22/2022 10 :14 AM EDT documented as of this encounter Plan of Treatment Upcoming Encounters Date Type Department Care Team (Late st Contact Info) Description 09/09/2024 2:00 PM EDT Office Visit [facility] [address] [place] [phone] Rigoberto Us MD [address] [place] [address] documented as of this encounter Procedures Procedure Name Priority Date/Time Associated Diagnosis Comments HM COLONOSCOPY Routine 03/19/2017 8:42 AM EDT documented in this encounter Results * Hm Colonoscopy (03/19/2017 8:42 AM EDT) us Historical Provider HEALTH MAINTENANCE Final Result documented in this encounter Visit Diagnoses Not on filedocumented in this encounter Additional Health Concerns Assessment Noted Time PHQ-9 Depression Total Score: 8 08/26/19 24 11:49 AM EST documented as of this encounter Care Teams Camera Machinist Relationship Specialty Start Date End Date Rigoberto Us MD [address] [place] [address] PCP - General Internal Medicine 03/30/18 Timothy Broussard RN [address] [place] [phone] Improvement SpecialistManager Floral 12/26/23 04/07/24 documented as of this encounter
--- OUTSIDE RECORDS SUMMARY | 2024-07-21 14:32 | XMS_ITS | Encounter Summary ---
Author Organization [employer] Address [address] [place] [address] Care Team Providers Care Advertising Production Manager Name Role Phone Rigoberto Us MD Primary Care Provide r Encounter Details Date Type Department Care Team (Latest Contact Info) Description 07/21/2024 Travel Social History Tobacco Use Types Packs/Day Years [...] is your housing situation today? I have yasmeen jennings 07/14/[address] you [...] Description 09/09/2024 2:00 PM EDT Office Visit [facility] [address] [place] [address] Rigoberto Us MD [address] [place] [address] documented as of this encounter Visit Diagnoses Not on filedocumented in this encounter Additional Health Concerns Assessment Noted Time PHQ-9 Depression Total Score: 8 08/26/19 24 11:49 AM EST documented as of this encounter Care Teams Advertising Production Manager Relationship Specialty Start Date End Date Rigoberto Us MD [address] [place] [address] PCP - General Internal Medicine 03/30/18 documented as of this encounter
--- OUTSIDE RECORDS SUMMARY | 2024-07-21 14:32 | XMS_ITS | Encounter Summary ---
Author Organization [employer] Address [address] [facility] [address] [place] [address] Care Team Providers Care Business Intelligence Analyst Name Role Phone Rigoberto Us MD Primary Care Provide r Encounter Details Date Type Department Care Team ([facility] Contact Info) Description 06/30/2024 Orders Only GENERIC EXTERNAL DATA DEPARTMENT Provider, Generic External Data Social History Tobacco Use Types Packs/Day Years [...] Description 09/09/2024 2:00 PM EDT Office Visit [facility] [address] [facility] [place] [address] Rigoberto Us MD [address] [place] [address] documented as of this encounter Procedures Procedure Name Priority Date/Time Associated Diagnosis Comments ALBUMIN Routine 06/30/2024 10:13 AM EST BASIC METABOLIC PANEL Routine 06/30/2024 10:13 AM EST documented in this encounter Results * Albumin (06/30/2024 10:13 AM EST) Pathologist [facility] Albumin Level 3.9 3.5 - 5.0 g/dL [facility] 06/30/2024 10:1 3 AM EST 06/30/2024 10:13 AM EST us Generic External Data Provider LAB BLOOD ORDERAB LES Final Result [facility] [address] [place] [address] [phone] * (ABNORMAL) Basic Metabolic Panel (06/30/2024 10:13 AM EST) Sodium 141 135 - 145 mmol/L [facility] Potassium 4.0 3.3 - 5.1 mmol/L [facility] Chloride 107 96 - 108 mmol/L [facility] Carbon Dioxide 28 22 - 29 mmol/L [facility] Anion Gap 10(L) 12 - 20 [facility] Urea Nitrogen (BUN) 20(H) 9 - 16 mg/dL [facility] Creatinine, Serum 0.89 0.5 - 1.4 mg/dL [facility] Estimated Glomerular Filt Rate >60 [facility] Comment:Chronic Kidney Disea se: Estimated GFR < 60 mL/min/1.80l0Eofwym Kidney Disease: Estimated GFR < 15 mL/min/1.73m2 Glucose 113 60 - 115 mg/dL [facility] Calcium 8.7 8.4 - 10.2 mg/dL [facility] 06/30/2024 10:1 3 AM EST 06/30/2024 10:13 AM EST us Generic External Data Provider LAB BLOOD ORDERAB LES Final Result Performing Organization Address City/State/[facility] Co de Phone Number [facility] [address] [place] [address] [phone] documented in this encounter Visit Diagnoses Not on filedocumented in this encounter Additional Health Concerns Assessment Noted Time PHQ-9 Depression Total Score: 8 08/26/19 24 11:49 AM EST documented as of this encounter Care Teams Business Intelligence Analyst Relationship Specialty Start Date End Date Rigoberto Us MD [address] [place] [address] PCP - General Internal Medicine 03/30/18 documented as of this encounter
--- OUTSIDE RECORDS SUMMARY | 2024-07-21 14:32 | XMS_ITS | Encounter Summary ---
Author Organization [employer] Address [address] [place] [address] [address] [place] [address] Care Team Providers Care Field Care Coordinator Name Role Phone Rigoberto Us MD Primary Care Provide r Reason for Referral * Consultation (Routine) - Pending Review Specialty Diagnoses / Procedures Referred By Chelsea bui Referred To Contact Urology Diagnoses Hematuria, unspecified type Milena Lopez FNP [address] [place] [address] Phone: tel: fax: Referral ID Status Reason Start Date Expiration Date Visits Requested Visits Authorized [id number] Pending Review Specialty Services Required 07/21/2024 07/21/2025 1 1 * Imaging (Routine) - Authorized Specialty Diagnoses / Procedures Referred By Chelsea bui Referred To Contact Radiology Diagnoses Hematuria, unspecified type Procedures US RENAL BI Milena Lopez FNP [address] [place] [address] Phone: tel: fax: [facility] [address] [place] [address] Phone: tel: fax: Referral ID Status Reason Start Date Expiration Date V isits Requested Visits Authorized [id number] Authorized 07/21/2024 07/21/2025 1 1 Encounter Details Date Type Department Care Team (Late st Contact Info) Description 07/21/2024 10:30 AM EST Office Visit [facility] [address] [place] [address] Milena Lopez, LUIS ALBERTO [address] [place] [address] Iron deficiency anemia, unspecified iron deficiency anemia type (Primary Dx); Compression fracture of lumbar vertebra, unspecified lumbar vertebral level, sequela; Hematuria, unspecified type Social History Tobacco Use Types Packs/Day Years [...] AM EDT documented as of this encounter Last Filed Vital Signs Vital Sign Reading Time Taken Comments Blood Pressure 107/72 07/21/2024 10:41 AM EST Pulse 85 07/21/2024 10:41 AM EST Temperature 36.3 ??C (97.4 ??F) 07/21/2024 10:[address] Respiratory Rate 18 07/21/2024 10:41 AM EST Oxygen Saturation 97% 07/21/2024 10:41 AM EST Inhaled Oxygen Concentration - - Weight 93.6 kg (206 lb 6.4 oz) 07/21/2024 10:41 AM EST Height 175.3 cm (5' 9 ) 07/21/2024 10:41 AM EST Body Mass Index 30.48 07/21/2024 10:41 AM EST documented in this encounter Plan of Treatment Upcoming Encounters Date Type Department Care Team (Late st Contact Info) Description 09/09/2024 2:00 PM EDT Office Visit [facility] [address] [place] [address] Rigoberto Us MD [address] [place] [address] Scheduled Orders Name Type Priority Associated Diagnoses Orde r Schedule CBC auto differential Lab Routine Iron deficiency anemia, unspecified iron deficiency anemia type Expected: 07/21/2024 (Approximate), Expires: 07/21/2025 Iron And Total Iron Binding Capacity Lab Routine Iron deficiency anemia, unspecified iron deficiency anemia type Expected: 07/21/2024, Expires: 07/21/2025 Comprehensive Metabolic Panel Lab Routine Iron deficiency anemia, unspecified iron deficiency anemia type Expected: 07/21/2024 (Approximate), Expires: 07/21/2025 US RENAL BI Imaging Routine Hematuria, unspecified type Expected: 07/21/2024, Expires: 07/21/2025 Scheduled Referrals Name Type Priority Associated Diagnoses Orde r Schedule Referral to Urology Outpatient Referral Routine Hematuria, unspecified type Expected: 07/21/2024 (Approximate), Expires: 07/21/2025 documented as of this encounter Procedures Procedure Name Priority Date/Time Associated Diagnosis Comments XR LUMBAR SPINE COMPLETE 4+ VIEWS Routine 07/21/2024 12:13 PM EST Compression fracture of lumbar vertebra, unspecified lumbar vertebral level, sequela POCT URINALYSIS DIPSTICK Routine 07/21/2024 12:09 PM EST Hematuria, unspecified type documented in this encounter Results * XR Lumbar Spine Complete 4+ Views (07/21/2024 12:13 PM EST) Anatomical Region Laterality Modality Spine, L-spine Radiographic Cristiana ging 07/21/2024 12:1 3 PM EST Narrative 07/21/2024 12:55 PM EST ?[facility] ?[address] ?[place] [address] ?XRay Report ? Signed ? Patient: Avery Ware ?MR#: ?? [id number] ? : 1955 ?Acct:[id number] ? Age/Sex: 69 / M ?ADM Date: 07/21/24 ? Loc: HO.HHCX ? Attending Dr: Milena SAHU ? Ordering Physician: iMlena Lopez ?? Date of Service: 07/21/24 ?? Procedure(s): XR lumbar spine 4V min ?? Accession Number(s): [id number] ? cc: Milena Lopez ? . ? EXAMINATION: ?? X-ray lumbar spine, 4 views. ? CLINICAL INFORMATION: ?? Low back pain. Compression fractures, pain in the left side. Status ?? post kyphoplasty. ? COMPARISON: ?? Correlated to CT dated October 16, 2023. ? TECHNIQUE: ?? AP oblique and lateral views. ? FINDINGS: ? Radiopaque material at L1 and L2 vertebral bodies, both size. ?? Osteopenia versus 2 processes. Superior endplate compression ?? deformities at L1 and L2 representing 50% volume loss. ?? Endplate sclerosis and marginal osteophyte formation with decreased ?? intervertebral disc height at L5-S1 and L4-5 levels. ?? No gross malalignment. ? XR/XR lumbar spine 4V min ?? IMPRESSION: ? Status post kyphoplasty, L1 and L2. ?? Multilevel lumbar spondylosis. ? Electronically signed by: ??Samuel Andre MD ??07/21/2024 12:52 PM ?? EST RP ? Dictated By: ?Samuel Caldwell MD ? Signed By: ?<Electronically signed by Samuel Garcia MD in OV> ? 07/21/24 1252 ? DD/ 1213 ? TD/TT: 07/21/24 1236 ? Dry Sander: ? Procedure Note Donotuseinterpreter, Image - 07/21/[address] [address] XRay Report Signed Patient: Avery WareMR#: [id number] : 1955cct:[id number] Age/Sex: 69 / MADM Date: 07/21/24 Loc: HO.HHCX Attending Dr: Milena SAHU Ordering Physician: Milena Lopez Date of Service: 07/21/24 Procedure(s): XR lumbar spine 4V min Accession Number(s): [id number] cc: Milena Lopez . EXAMINATION: X-ray lumbar spine, 4 views. CLINICAL INFORMATION: Low back pain. Compression fractures, pain in the left side. Status post kyphoplasty. COMPARISON: Correlated to CT dated October 16, 2023. TECHNIQUE: AP oblique and lateral views. FINDINGS: Radiopaque material at L1 and L2 vertebral bodies, both size. Osteopenia versus 2 processes. Superior endplate compression deformities at L1 and L2 representing 50% volume loss. Endplate sclerosis and marginal osteophyte formation with decreased intervertebral disc height at L5-S1 and L4-5 levels. No gross malalignment. XR/XR lumbar spine 4V min IMPRESSION: Status post kyphoplasty, L1 and L2. Multilevel lumbar spondylosis. Electronically signed by: Samuel Andre MD 07/21/2024 12:52 PM [facility] [place] Dictated By: Samuel Caldwell MD Signed By: <Electronically signed by Samuel Garcia MDin OV> 07/21/24 1252 DD/ 1213 TD/TT: 07/21/24 1236 Dry Sander: [facility] XR PROCEDURES Edited Resul t - Final * (ABNORMAL) POCT Urinalysis (07/21/2024 12:09 PM EST) Color, UA Yellow Clarity, UA Clear Glucose, UA Negative Bilirubin, UA Negative Ketones, UA Negative Spec Grav, UA 1.020 Blood, UA Positive(A) Negative, None Detected pH, UA 6.0 Protein, UA Negative Urobilinogen, UA 0.2 Leukocytes, UA Negative Negative, Rare, Trace Nitrite, UA Negative Negative, None Detected Appearance, UA clear QC Media Lot # [id number] Lot# Expiration Date Urine 07/21/2024 12:0 9 PM EST [facility] POINT OF CARE TEST ENTER/EDIT ORDERABLES Final Result documented in this encounter Visit Diagnoses Diagnosis Iron deficiency anemia, unspecified iron deficiency anemia type- Primary Compression fracture of lumbar vertebra, unspecified lumbar vertebral level, sequela Hematuria, unspecified type documented in this encounter Additional Health Concerns Assessment Noted Time PHQ-9 Depression Total Score: 8 08/26/19 24 11:49 AM EST documented as of this encounter Care Teams Field Care Coordinator Relationship Specialty Start Date End Date Rigoberto Us MD [address] [place] [address] PCP - General Internal Medicine 03/30/18 documented as of this encounter
--- OUTSIDE RECORDS SUMMARY | 2024-07-21 14:32 | XMS_ITS | Encounter Summary ---
Author Organization [employer] Address [address] [facility] [address] [place] [address] Care Team Providers Care Wrecker Driver Name Role Phone Rigoberto Us MD Primary Care Provide r Timothy Broussard RN Unavailable [phone] Encounter Details Date Type Department Care Team (Late st Contact Info) Description 10/31/[address] [facility] [address] [place] [address] [phone] Rigoberto Us MD [address] [place] [address] [phone] Social History Tobacco Use Types Packs/Day Years Used Date Smoking Tobacco: Former Cigarettes Smokeless Tobacco: Never Alcohol Use Standard Drinks/Week Comments Not Currently 0 (1 standard drink = 0.6 oz pur e alcohol) Depression Answer Date Recorded Patient Health Questionnaire-2 Score 0 06/04/2022 Sex and Gender Information Value Date Recorded Sex Assigned at Male 04/22/2022 10:14 AM EDT Legal Sex Male 10:14 AM EDT Gender Identity Male 04/22/2022 10:14 AM EDT Sexual Orientation Straight 04/22/2022 10 :14 AM EDT documented as of this encounter Plan of Treatment Upcoming Encounters Date Type Department Care Team (Late st Contact Info) Description 09/09/2024 2:00 PM EDT Office Visit [facility] [address] [place], [place] [phone] Rigoberto Us MD [address] [place] [address] [phone] documented as of this encounter Visit Diagnoses Not on filedocumented in this encounter Care Teams Wrecker Driver Relationship Specialty Start Date End Date Rigoberto Us MD [address] [place] [address] PCP - General Internal Medicine 03/30/18 Timothy Broussard RN [address] [place] [phone] International Logistics CoordinatorQuarry Supervisor [employer] 12/26/23 04/07/24 documented as of this encounter
--- OUTSIDE RECORDS SUMMARY | 2024-07-21 14:32 | XMS_ITS | Encounter Summary ---
Author Organization [employer] Address [address] [facility] 7t [place] [address] Care Team Providers Care Websphere Architect Name Role Phone Rigoberto Us MD Primary Care Provide r Timothy Broussard RN Unavailable [phone] Encounter Details Date Type Department Care Team ([facility] Contact Info) Description 10/04/2022 Orders Only [facility] MEDICINE [address] [place] [address] Demi Garcia, RN [address] [place], [place] [phone] Social History Tobacco Use Types Packs/Day Years [...] Orientation Straight 04/22/2022 10 :14 AM EDT COVID-19 Exposure Response Date Recorded In the last 10 days, have yo u been in contact with someone who was confirmed or suspected to have Coronavirus/COVID-19? No / Unsure 09/19/2022 1:20 PM EDT documented as of this encounter Plan of Treatment Upcoming Encounters Date Type Department Care Team ([facility] Contact Info) Description 09/09/2024 2:00 PM EDT Office Visit [facility] MEDICINE [address] [place] [phone] Rigoberto Us MD [address] [place] [address] documented as of this encounter Visit Diagnoses Not on filedocumented in this encounter Care Teams Websphere Architect Relationship Specialty Start Date End Date Rigoberto Us MD [address] [place] [address] PCP - General Internal Medicine 03/30/18 Timothy Broussard, GIANNA [address] [place] [phone] Shore Working SupervisorHand Packer/Packager 12/26/23 04/07/24 documented as of this encounter
--- OUTSIDE RECORDS SUMMARY | 2024-07-21 14:32 | XMS_ITS | Encounter Summary ---
Author Organization [employer] Address 75 [facility] 7t [place] [address] Care Team Providers Care Mold Dresser Name Role Phone Rigoberto Us MD Primary Care Provide r Timothy Broussard RN Unavailable [phone] Reason for Visit * Reason Onset Date Comments Lab Orders 08/30/2022 Encounter Details Date Type Department Care Team (Late st Contact Info) Description 08/30/2022 Telephone [facility] MEDICINE [address] [place] [address] Rigoberto Us MD [address] [place] [address] Lab Orders Social History Tobacco Use Types Packs/Day Years [...] AM EDT documented as of this encounter Miscellaneous Notes * Telephone Encounter - Alejandro Watson - 08/30/2022 11:19 AM EST Tc from [facility] requesting an order for a lumbar spine for pt documented in this encounter Plan of Treatment Upcoming Encounters Date Type Department Care Team (Late st Contact Info) Description 09/09/2024 2:00 PM EDT Office Visit [facility] MEDICINE [address] [place] [address] Rigoberto Us MD [address] [place] [address] documented as of this encounter Visit Diagnoses Not on filedocumented in this encounter Care Teams Mold Dresser Relationship Specialty Start Date End Date Rigoberto Us MD [address] [place], [place] [phone] PCP - General Internal Medicine 03/30/18 Timothy Broussard, GIANNA [address] [place] [address] Crane RiggerAbrasives Sales Representative 12/26/23 04/07/24 documented as of this encounter
--- OUTSIDE RECORDS SUMMARY | 2024-07-21 14:32 | XMS_ITS | Encounter Summary ---
Author Organization [employer] Address 75 [facility] 7t [place] [address] Care Team Providers Care Net Manager Name Role Phone Rigoberto Us MD Primary Care Provide r Timothy Broussard RN Unavailable [phone] Reason for Visit * Reason Onset Date Comments Call Back Request 01/22/2024 Encounter Details Date Type Department Care Team ([facility] st Contact Info) Description 01/22/2024 Telephone [facility] MEDICINE [address] [place] [address] Rigoberto Us MD [address] [place] [address] Call Back Request Social History Tobacco Use Types Packs/Day Years [...] encounter Miscellaneous Notes * Telephone Encounter - Evelyn Avendano - 01/22/2024 9:44 AM EDT Tc from pt sister requesting a call back in order to r/s GENERAL MERCHANDISE MANAGER appt. Please contact at [phone] documented in this encounter Plan of Treatment Upcoming Encounters Date Type Department Care Team (Late st Contact Info) Description 09/09/2024 2:00 PM EDT Office Visit [facility] MEDICINE [address] [place] [address] Rigoberto Us MD [address] [place] [address] documented as of this encounter Visit Diagnoses Not on filedocumented in this encounter Additional Health Concerns Assessment Noted Time PHQ-9 Depression Total Score: 8 08/26/19 24 11:49 AM EST documented as of this encounter Care Teams Net Manager Relationship Specialty Start Date End Date Rigoberto Us MD [address] [place] [address] PCP - General Internal Medicine 03/30/18 Timothy Broussard RN [address] [place] [address] Fire OfficialDisplay Card Writer 12/26/23 04/07/24 documented as of this encounter
--- OUTSIDE RECORDS SUMMARY | 2024-07-21 14:32 | XMS_ITS | Encounter Summary ---
Author Organization [employer] Address 75 [facility] 7t [place] [address] Care Team Providers Care Quiller Hand Name Role Phone Rigoberto Us MD Primary Care Provide r Reason for Visit * Reason Onset Date Comments Medication Question 05/25/2024 Encounter Details Date Type Department Care Team ([facility] Contact Info) Description 05/25/2024 Telephone [facility] MEDICINE [address] [place], [place] [phone] Rigoberto Us MD [address] [place], [place] [phone] Medication Question Social History Tobacco Use Types Packs/Day Years [...] encounter Miscellaneous Notes * Telephone Encounter - Chloe Guerrero RN - 05/31/2024 9:58 AM EST Telephone call to pt who's sister answered. Pt gave verbal consent to speak with sister. Sister states that pt self discontinued morphine on in April due to fears that it can cause respiratory depression (per chart, discontinued on 04/[address] Givens). Sister is now stating that the pain in his spine/to the left on his back has returned without the PRN morphine prescription. Advised her that pt has appt with Dr Givens on 06/15 and may want to see him in person then to evaluate the pt. Advised her that message would be sent to PCP for guidance and updates to plan will be communicated to pt. Sister verbalized understanding, in agreement with plan. * Telephone Encounter - Luis Munoz - 05/25/2024 10:35 AM EST Tc from Sister informing pt has a question as he will like a new script for morphine as he's pain don't go away. Callback number [phone] ([email or web address]) documented in this encounter Plan of Treatment Upcoming Encounters Date Type Department Care Team ([facility] st Contact Info) Description 09/09/2024 2:00 PM EDT Office Visit [facility] MEDICINE [address] [place] [address] Rigoberto Us MD [address] [place] [address] documented as of this encounter Visit Diagnoses Not on filedocumented in this encounter Additional Health Concerns Assessment Noted Time PHQ-9 Depression Total Score: 8 08/26/19 24 11:49 AM EST documented as of this encounter Care Teams Quiller Hand Relationship Specialty Start Date End Date iRgoberto Us MD [address] [facility] [place] [address] PCP - General Internal Medicine 03/30/18 documented as of this encounter
--- OUTSIDE RECORDS SUMMARY | 2024-07-21 14:32 | XMS_ITS | Encounter Summary ---
Author Organization [employer] [facility] Address [address] [place] [address] 7t [place] [address] Care Team Providers Care Government Guard Name Role Phone Rigoberto Us MD Primary Care Provide r Timothy Broussard RN Unavailable [phone] Encounter Details Date Type Department Care Team (Late st Contact Info) Description 05/29/2022 Abstract [facility] MEDICINE [address] [place] [address] Provider, MD [place] Social History Tobacco Use Types Packs/Day Years Used Date Smoking Tobacco: Never Assessed Sex and Gender Information Value Date Recorded Sex Assigned at Male 04/22/2022 10:14 AM EDT Legal Sex Male 10:14 AM EDT Gender Identity Male 04/22/2022 10:14 AM EDT Sexual Orientation Straight 04/22/2022 10 :14 AM EDT documented as of this encounter Plan of Treatment Upcoming Encounters Date Type Department Care Team (Late st Contact Info) Description 09/09/2024 2:00 PM EDT Office Visit [facility] MEDICINE [address] [place] [address] Rigoberto Us MD [address] [place] [address] documented as of this encounter Visit Diagnoses Not on filedocumented in this encounter Care Teams Government Guard Relationship Specialty Start Date End Date Rigoberto Us MD [address] [place] [address] PCP - General Internal Medicine 03/30/18 Timothy Broussard RN [address] [place] [address] Dive SuperintendentEtcher Apprentice 12/26/23 04/07/24 documented as of this encounter
--- OUTSIDE RECORDS SUMMARY | 2024-07-21 14:32 | XMS_ITS | Encounter Summary ---
Author Organization [email or web address] Address 75 [facility] 7t [place] [address] Care Team Providers Care Metal Fabricator Name Role Phone Rigoberto Us MD Primary Care Provide r Timothy Broussard RN Unavailable [phone] Reason for Visit * Reason Onset Date Comments Med Refill 03/18/2024 Encounter Details Date Type Department Care Team ([facility] st Contact Info) Description 03/18/2024 Telephone [facility] MEDICINE [address] [place] [address] Rigoberto Us MD [address] [place], [place] [phone] Med Refill Social History Tobacco Use Types Packs/Day Years [...] encounter Miscellaneous Notes * Telephone Encounter - Abdi Duque - 03/18/2024 9:19 AM EDT Tc from pt sister kim requesting a refill for morphine CR (MS Contin) 15 MG 12 hr tablet. documented in this encounter Plan of Treatment Upcoming Encounters Date Type Department Care Team (Late st Contact Info) Description 09/09/2024 2:00 PM EDT Office Visit [facility] MEDICINE [address] [place] [address] Rigoberto Us MD [address] [place] [address] documented as of this encounter Visit Diagnoses Not on filedocumented in this encounter Additional Health Concerns Assessment Noted Time PHQ-9 Depression Total Score: 8 08/26/19 24 11:49 AM EST documented as of this encounter Care Teams Metal Fabricator Relationship Specialty Start Date End Date Rigoberto Us MD [address] [place] [address] PCP - General Internal Medicine 03/30/18 Timothy Broussard RN [address] [place] [address], [place] [address] Conversion ManForest Fire Control Officer 12/26/23 04/07/24 documented as of this encounter
--- OUTSIDE RECORDS SUMMARY | 2024-07-21 14:32 | XMS_ITS | Encounter Summary ---
Author Organization [employer] Address [address] [facility] 7t [place] [address] Care Team Providers Care Flag Signaler Name Role Phone Rigoberto Us MD Primary Care Provide r Timothy Broussard RN Unavailable [phone] Reason for Visit * Reason Onset Date Comments Reschedule 01/12/2024 Encounter Details Date Type Department Care Team ([facility] st Contact Info) Description 01/12/2024 Telephone [facility] MEDICINE [address] [place] [address] Rigoberto Us MD [address] [place] [address] Reschedule Social History Tobacco Use Types Packs/Day Years [...] * Telephone Encounter - Evelyn Avendano - 01/12/2024 10:20 AM EDT Tc from sister calling requesting r/s DIETARY AIDE TEACHER appt, she will bring him to the appt however this day shewill be busy. documented in this encounter Plan of Treatment Upcoming Encounters Date Type Department Care Team (Late st Contact Info) Description 09/09/2024 2:00 PM EDT Office Visit [facility] MEDICINE [address] [place] [address] Rigoberto Us MD [address] [place] [address] documented as of this encounter Visit Diagnoses Not on filedocumented in this encounter Additional Health Concerns Assessment Noted Time PHQ-9 Depression Total Score: 8 08/26/19 24 11:49 AM EST documented as of this encounter Care Teams Flag Signaler Relationship Specialty Start Date End Date Rigoberto Us MD [address] [place] [address] PCP - General Internal Medicine 03/30/18 Timothy Broussard RN [address] [place] [address] Booth CleanerLoading Shovel Oiler 12/26/23 04/07/24 documented as of this encounter
--- OUTSIDE RECORDS SUMMARY | 2024-07-21 14:32 | XMS_ITS | Encounter Summary ---
Author Organization [employer] Address [address] [facility] 7t [place] [address] Care Team Providers Care Fire And Safety Helper Name Role Phone Rigoberto Us MD Primary Care Provide r Timothy Broussard RN Unavailable [phone] Reason for Visit * Reason Onset Date Comments Med Refill 02/16/2024 Encounter Details Date Type Department Care Team ([facility] st Contact Info) Description 02/16/2024 Telephone [facility] MEDICINE [address] [place] [address] Rigoberto Us MD [address] [place], [place] [phone] Med Refill Social History Tobacco Use Types [...] encounter Miscellaneous Notes * Telephone Encounter - Maxwell Perez - 02/16/2024 1:48 PM EDT TC from pt requesting medication refill. Medications needing refill : morphine CR (MS Contin) 15 MG 12 hr tablet To be sent to: [id number] [place], [place] - [address] [facility] documented in this encounter Plan of Treatment Upcoming Encounters Date Type Department Care Team (Late st Contact Info) Description 09/09/2024 2:00 PM EDT Office Visit [facility] MEDICINE [address] [place] [address] Rigoberto Us MD [address] [place] [address] documented as of this encounter Visit Diagnoses Not on filedocumented in this encounter Additional Health Concerns Assessment Noted Time PHQ-9 Depression Total Score: 8 08/26/19 24 11:49 AM EST documented as of this encounter Care Teams Fire And Safety Helper Relationship Specialty Start Date End Date Rigoberto Us MD [address] [place] [address] PCP - General Internal Medicine 03/30/18 Timothy Broussard RN [address] [place] [address] Machine Shop InspectorSenior Enlisted Advisor 12/26/23 04/07/24 documented as of this encounter
--- OUTSIDE RECORDS SUMMARY | 2024-07-21 14:32 | XMS_ITS | Encounter Summary ---
Author Organization [employer] [facility] Address [address] [place] [address] 7t [place] [address] Care Team Providers Care Compound Finisher Name Role Phone Rigoberto Us MD Primary Care Provide r Timothy Broussard RN Unavailable [phone] Encounter Details Date Type Department Care Team (Latest Contact Info) Description 10/12/2020 Abstract [facility] CONVERSIONS Dental, Provider, DDS Social History Tobacco Use Types Packs/Day Years [...] Upcoming Encounters Date Type Department Care Team ([facility] st Contact Info) Description 09/09/2024 2:00 PM EDT Office Visit [facility] MEDICINE [address] [place] [address] Rigoberto Us MD [address] [place] [address] documented as of this encounter Visit Diagnoses Not on filedocumented in this encounter Care Teams Compound Finisher Relationship Specialty Start Date End Date Rigoberto Us MD [address] [place] [address] PCP - General Internal Medicine 03/30/18 Timothy Broussard, GIANNA [address] [place] [address] [place] [address] Ctc OperatorAmmonia Distiller 12/26/23 04/07/24 documented as of this encounter
--- OUTSIDE RECORDS SUMMARY | 2024-07-21 14:32 | XMS_ITS | Clinical Summary ---
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 Take 1 tablet 2 times a day with f Active albuterol 108 (90 Base) MCG/ACT inhaler Inhale 2 puffs every 4 (four) hours if needed. 9 Active sotalol (Betapace) 80 MG tablet Take 1 tablet by mouth every 12 (twelve) hours. Active Linzess 145 MCG capsule Take 145 mcg by mouth in the morning. 3 Active metoclopramide (Reglan) 10 MG tablet TAKE 1 TABLET BY MOUTH FOUR TIMES DAILY BEFORE MEALS AND BEFORE BEDTIME 2 Active famotidine (Pepcid) 40 MG tablet TAKE 1 TABLET BY MOUTH AT BEDTIME NEEDED FOR HEARTBURN 2 Active latanoprost (Xalatan) 0.005 % ophthalmic solution INSTILL 1 DROP IN BOTH EYES AT BEDTIME 3 Active Tymlos 3120 MCG/1.56ML solution pen-injector Inject 80 mcg under the skin 1 (one) time each day. 3 Active Trelegy Ellipta 100-62.5-25 MCG/ACT aerosol powder Take 1 puff by mouth 1 (one) time each day. 4 Active furosemide (Lasix) 20 MG tablet Take 1 tablet by mouth 1 (one) time each day. 3 Active tiZANidine (Zanaflex) 2 MG tablet Take 1 tablet by mouth if needed in the morning and at bedtime for muscle spasms. 4 Active omeprazole (PriLOSEC) [address] capsule Take 1 capsule by mouth 2 times daily. 4 Active sertraline (Zoloft) 25 MG tablet Take 1 tablet by mouth in the morning. 4 Active sucralfate (Carafate) 1 GM/10ML suspension SHAKE LIQUID AND TAKE 20 ML BY MOUTH EVERY DAY AT NOON Active ferrous gluconate (Fergon) 324 (38 Fe) MG tablet TAKE 1 TABLET(324 MG) BY MOUTH WITH BREAKFAST 90 tablet 4 Active Ascorbic Acid (vitamin C) 250 MG tablet TAKE 1 TABLET(250 MG) BY MOUTH IN THE MORNING 90 tablet 1 4 Active simvastatin (Zocor) 20 MG tablet TAKE 1 TABLET BY MOUTH EVERY DAY IN THE EVENING 90 tablet 4 Active acetaminophen (Tylenol Extra Strength) 500 MG tabletIndications :Osteoporosis with current pathological fracture with delayed healing, unspecified osteoporosis type, subsequent encounter Take 1 tablet (500 mg) by mouth every 8 (eight) hours if needed for mild pain. 90 tablet 3 4 Active psyllium (Metamucil Smooth Texture) 58.6 % powder Take 5.12 g (3 g of fiber) by mouth 2 times daily. 283 g 2 4 07/20/19 25 Active Problems Problem Noted Date Diagnosed Date Pain in both testicles 06/15/2024 Assessment & Plan (06/15/2024 12:43 PM EST): [facility], urology referral Hospital discharge follow-up 01/08/2024 Assessment & Plan (01/08/2024 12:56 PM EDT): Pt here for a HDF Admitted to [facility] from 12/11-12/16/2023 after he presented for evaluation of SOB. Diagnosed with acute respiratory failure with hypoxia secondary to COPD and pneumonia. Initially treated with CPAP and transitioned to 3L nasal cannula. Home oxygen evaluation revealed need for 2 L with ambulation. Treated for sepsis with IV ceftriaxone and doxycycline however blood cultures negative. For COPD, treated with IV Solu-medrol and scheduled DuoNebs. Sotalol held once due to prolonged Qtc secondary to azithromycin in ED. Cardiology recommended stopping quetiapine and trazodone, which can prolong Qtc. Evaluated by PT who recommended home PT. Discharged home with 2 days of abx and 4 days of steroids. Bilateral impacted cerumen 01/08/2024 Assessment & Plan (01/08/2024 1:45 PM EDT): [facility] Ear lavage with RN Small bowel motility disorder 07/17/2023 Rectal prolapse 07/17/2023 07/17/2023 Pulmonary nodule 07/17/2023 07/17/2023 Personal history of nicotine dependence 07/17/1907/17/2023 Peptic ulcer disease 07/17/2023 07/17/2023 Hemorrhoids 07/17/2023 07/17/2023 Dysphagia 07/17/2023 07/17/2023 Degeneration, intervertebral disc, lumbosacral 0 07/17/2023 07/17/2023 Chronic idiopathic constipation 07/17/2023 07/17/2023 Back pain 07/17/2023 07/17/2023 BPH (benign prostatic hyperplasia) 07/17/2023 07/17/2023 Non-ischemic cardiomyopathy 07/17/202306/24 Assessment & Plan (06/15/2024 12:30 PM EST): Under the care of cardiology Osteoporosis 02/04/2023 Assessment & Plan (06/15/2024 12:20 PM EST): S/P kyphoplasty by IR at [facility] 09/20/2022 For pain control I have prescribed Oxycodone Diagnostic work up for secondary causes of osteoporosis unrevealing He is on Calcium and Vitamin D On Tymlos Evaluated by Endocrinology , last seen 05/18/2024. Assessment & Plan (12/02/2023 10:17 AM EDT): S/P kyphoplasty by IR at [facility] 09/20/2022 For pain control I have prescribed Oxycodone Diagnostic work up for secondary causes of osteoporosis unrevealing He is on Calcium and Vitamin D On Tymlos Evaluated by Endocrinology , last seen 08/14/2023 has a follow up in January Assessment & Plan (08/26/2023 11:31 AM EST): S/P kyphoplasty by IR at [facility] 09/20/2022 For pain control I have prescribed Oxycodone Diagnostic work up for secondary causes of osteoporosis unrevealing He is on Calcium and Vitamin D On Tymlos Evaluated by Endocrinology , last seen 08/14/2023 Assessment & Plan (02/04/2023 11:43 AM EDT): S/P kyphoplasty by IR at [facility] 09/20/2022 For pain control I have prescribed Oxycodone Diagnostic work up for secondary causes of osteoporosis unrevealing He is on Calcium and Vitamin D Started on Tymlos Evaluated by Endocrinology Hypertension 12/25/2022 Assessment & Plan (12/02/2023 11:37 AM EDT): BP is controlled on Sotalol Assessment & Plan (08/26/2023 11:35 AM EST): BP is controlled on Sotalol Assessment & Plan (04/22/2023 11:38 AM EDT): BP is controlled off valsartan Continue Sotalol Assessment & Plan (02/04/2023 11:39 AM EDT): BP is controlled off valsartan Continue BB Assessment & Plan (12/25/2022 7:31 PM EDT): BP is controlled off valsartan -continue off valsartan ,continue BB -continue to monitor at home BP and bring readings at next visit w PCP Asymptomatic microscopic hematuria 09/24/2022 Assessment & Plan (06/15/2024 12:42 PM EST): Pt seen in the ER U/A showed microscopic hematuria moderate amount. Repeat U/A showed a smaller amount but still present. Pt is asymptomatic. Pt referred to Urology, seen 02/03/2023 Had Cystoscopy 03/04/2023 Assessment & Plan (04/22/2023 11:27 AM EDT): Pt seen in the ER U/A showed microscopic hematuria moderate amount. Repeat U/A showed a smaller amount but still present. Pt is asymptomatic. Pt referred to Urology, seen 02/03/2023 Had Cystoscopy 03/04/2023 Assessment & Plan (02/04/2023 11:39 AM EDT): Pt seen in the ER U/A showed microscopic hematuria moderate amount. Repeat U/A showed a smaller amount but still present. Pt is asymptomatic. Pt referred to Urology, seen 02/03/2023 Assessment & Plan (09/24/2022 12:50 PM EDT): Pt seen in the ER 4 months ago , U/A showed microscopic hematuria moderate amount. Repeat U/A showed a smaller amount but still present. Pt is asymptomatic. Plan: Urology referral. He will need a cystoscopy given multiple risk factors. 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 09/20/2022 Assessment & Plan (12/25/2022 7:29 PM EDT): -CT thoracic spine 10/2022 stable T7 and T9 vertebral body compression fx and post kyphoplasty -CT lumbar spine 10/2022: L1 Vertebral body compression fx increased from previous XR ,mild L4 vertebral body compression fx New from 08/2022 mx level disc disease and facet arthritis pt already following w industrial cleaning technician receiving Tymlos (abaloparatide)-states was not receiving lately x issues with pharmacy but to resume now -pt takes med to industrial cleaning technician for med administration -advised to continue w planned apt to see back surgeon x this month -continue tylenol prn -advised to use lidocaine patches-states has at home but not using -oxycodone ok to use x prn of severe pain -referred today to nurse staff x opioid contract-px narcan today and metamucil x constipation likely in setting of opioids use,continue his linzess -continue VNA, PT/OT at home weekly Assessment & Plan (09/20/2022 4:54 PM EDT): Pt with Osteoporosis with multiple vertebral fractures Plan Will initiate work up to rule out secondary causes, although likely due to Intermittent corticosteroid use. Obtain: Bone Density, BMP, Ca, SPEP, UPEP, 25-Vitamin D, Phosphorus, 24 hour urine for calcium and Creatinine, TSH and AM fasting testosterone Start Calcium plus vitamin D Once labs back will decide if he is a candidate for Forteo or Tymlos ( 18 mo or 2 years ) followed by an antiresorptive like Prolia or Alendronate Will also refer to Endocrinology Dr Grant Compression fracture of L1 vertebra 09/12/2022 Overview (09/12/2022): Pt interested in Kyphoplasty Assessment & Plan (01/08/2024 1:42 PM EDT): S/P kyphoplasty by IR at [facility] 09/20/2022 For pain control I have prescribed Oxycodone but he stopped taking it Today he describes his pain at 7/10 when severe 10/10 Diagnostic work up for secondary causes of osteoporosis unrevealing He is on Calcium and Vitamin D Started on Tymlos, followed by Endocrinology Seen at [facility] On 03/19/23: Kyphon Balloon Kyphoplasty with Insertion of HV-R Bone Cement, L1 and L2 Vertebral Bodies: with 80% relief. Last seen at [facility] 10/24/2023 Scheduled for fluoroscopy guided diagnostic left L3-L4 DR L5 medial branch blocks with local anesthetic. Plan: Continue Flexeril and MS Contin 15 mg po BID risk discussed particularly around somnolence , sedation and counseled about fall prevention Assessment & Plan (12/02/2023 10:20 AM EDT): S/P kyphoplasty by IR at [facility] 09/20/2022 For pain control I have prescribed Oxycodone but he stopped taking it Today he describes his pain at 7/10 when severe 10/10 Diagnostic work up for secondary causes of osteoporosis unrevealing He is on Calcium and Vitamin D Started on Tymlos, followed by Endocrinology Seen at [facility] On 03/19/23: Kyphon Balloon Kyphoplasty with Insertion of HV-R Bone Cement, L1 and L2 Vertebral Bodies: with 80% relief. Last seen at [facility] 10/24/2023 Scheduled for fluoroscopy guided diagnostic left L3-L4 DR L5 medial branch blocks with local anesthetic. Plan: Continue Flexeril Start MS Contin 15 mg po BID risk discussed particularly around somnolence , sedation and counseled about fall prevention Assessment & Plan (04/22/2023 11:28 AM EDT): S/P kyphoplasty by IR at [facility] 09/20/2022 For pain control I have prescribed Oxycodone but he stopped taking it Diagnostic work up for secondary causes of osteoporosis unrevealing He is on Calcium and Vitamin D Started on Tymlos, followed by Endocrinology Seen at [facility] On 03/19/23: Kyphon Balloon Kyphoplasty with Insertion of HV-R Bone Cement, L1 and L2 Vertebral Bodies: with 80% relief. Assessment & Plan (02/04/2023 11:41 AM EDT): S/P kyphoplasty by IR at [facility] 09/20/2022 For pain control I have prescribed Oxycodone Diagnostic work up for secondary causes of osteoporosis unrevealing He is on Calcium and Vitamin D Started on Tymlos Evaluated by Endocrinology Assessment & Plan (09/20/2022 5:05 PM EDT): Pt here for a follow up after a recent ER evaluation where he was diagnosed with Pneumonia and found to have several compression fractures Patient is undergoing kyphoplasty by IR at [facility] tomorrow 09/20/2022 For pain control I have sent Tylenol #3 . He did not tolerate Tramadol Needs grab bars for his shower Will initiate diagnostic work up for secondary causes of osteoporosis, start Calcium and Vitamin D and once we obtain the results of his Bone density will initiate therapy with Tymol or Forteo Will refer to Endocrinology as well Follow up with me after work up Compression fracture of T7 vertebra 09/12/2022 Overview (09/12/2022): Pt interested in Kyphoplasty Assessment & Plan (02/04/2023 11:42 AM EDT): S/P kyphoplasty by IR at [facility] 09/20/2022 For pain control I have prescribed Oxycodone Diagnostic work up for secondary causes of osteoporosis unrevealing He is on Calcium and Vitamin D Started on Tymlos Evaluated by Endocrinology Assessment & Plan (09/20/2022 5:05 PM EDT): Evaluated in the ER diagnosed with Pneumonia and found to have compression fractures For pain control I have sent Tylenol #3 . He did not tolerate Tramadol Needs grab bars for his shower Will initiate diagnostic work up for secondary causes of osteoporosis, start Calcium and Vitamin D and once we obtain the results of his Bone density will initiate therapy with Tymol or Forteo Will refer to Endocrinology as well Follow up with me after work up Ascending aorta dilatation 06/04/2022 Assessment & Plan (12/02/2023 11:36 AM EDT): Chest CT showed dilated thoracic aorta 4.5 cm Patient was referred for Evaluation with Dr Waterman He tells me he has a follow up appointment Assessment & Plan (04/22/2023 11:43 AM EDT): Chest CT showed dilated thoracic aorta 4.5 cm Patient was referred for Evaluation with Dr Waterman He tells me he has a follow up appointment Assessment & Plan (06/04/2022 9:40 AM EST): Chest CT showed dilated thoracic aorta 4.5 cm Patient was referred for Evaluation with Dr Waterman Bilateral tinnitus 06/04/2022 Assessment & Plan (06/04/2022 9:07 AM EST): Pt here for a f/u Pt with persistent tinnitus work up revealed bilateral hearing loss. ENT specialist recommended a CT, records were requested, he is wearing hearing aids Cervical spondylosis 06/04/2022 Assessment & Plan (06/04/2022 9:08 AM EST): Here for a f/u He was seen by document control specialist at [facility] He tells me he was given injections to his neck with good results He describes the intensity of the neck pain down to 1/10 Pt refuses to go to PT, claims it does not help/makes pain worse. In the past we prescribed Voltaren gel. Plain films showed spondylosis Will continue with Tylenol and NSAIDS for minor pain Cardiomyopathy 05/29/2022 Assessment & Plan (12/02/2023 11:36 AM EDT): pt here for a f/u Pt doing well, no sob, no chest pain at the moment He is under the care of Cardiology Dr Francis .Last seen 07/01/2023 Repeat ECHO showed his EF was back to 50-55% EF Previous ECHO 06/2019 showed severe global hypokinesis EF 25-30% . He had a negative cardiac cath in March 2019. It is thought that his Cardiomyopathy is due to ETOH. He was referred for possible ICD implantation. Since his EF was back to normal he no longer needed an ICD Pt reports has been abstaining from alcohol Assessment & Plan (02/04/2023 12:46 PM EDT): pt here for a f/u Pt doing well, no sob, no chest pain at the moment He is under the care of Cardiology Dr Francis .Last seen 12/26/2022 recommended 6 month follow up Repeat ECHO showed his EF was back to 50-55% EF Previous ECHO 06/2019 showed severe global hypokinesis EF 25-30% . He had a negative cardiac cath in March 2019. It is thought that his Cardiomyopathy is due to ETOH. He was referred for possible ICD implantation. Since his EF was back to normal he no longer needed an ICD Pt reports has been abstaining from alcohol for over 1 year Assessment & Plan (06/04/2022 9:35 AM EST): pt here for a f/u Pt doing well, no sob, no chest pain at the moment He is under the care of Cardiology. Repeat ECHO showed his EF was back to 50-55% EF Previous ECHO 06/2019 showed severe global hypokinesis EF 25-30% . He had a negative cardiac cath in March 2019. It is thought that his Cardiomyopathy is due to ETOH. He was referred for possible ICD implantation. Since his EF was back to normal he no longer needed an ICD In the Hospital CHF improved after mantaining rhythm , he was diuresed gently. Due to low blood pressure he was kept off Entresto and was started on Valsartan 20 mg po BID, He was advised to f/u with [facility] Pt reports he is still drinking on weekends 3 month f/u Atrial fibrillation 05/29/2022 Assessment & Plan (08/26/2023 11:39 AM EST): He is on Eliquis 5mg BID Last seen by Dr Francis 12/26/2022 Assessment & Plan (02/04/2023 12:48 PM EDT): He is on Eliquis 5mg BID Last seen by Dr Francis 12/26/2022 Assessment & Plan (06/04/2022 9:52 AM EST): Patient here for a HDF He presented again to [facility] from 05/30 until 06/01 with c/o increased SOB. EKG showing persistent Afib. Rate remained suppressed on Sotalol therapy, He was kept on Eliquis 5mg BID and the recommendation was to f/u with cardiology as outpatient for Holter monitor Pt tells me he has an appointment with Dr Francis this Friday Bipolar disorder 10/06/2018 Assessment & Plan (12/02/2023 11:34 AM EDT): Under the care of Dasia Soni [facility] On Seroquel 300 mg po qhs Bupropion and Trazodone 100 mg po qhs per his report Assessment & Plan (04/22/2023 11:41 AM EDT): Under the care of Dasia Soni [facility] On Seroquel 300 mg po qhs Bupropion and Trazodone 100 mg po qhs per his report Assessment & Plan (06/04/2022 9:09 AM EST): Under the care of Dasia Soni [facility] On Seroquel 300 mg po qhs Bupropion and Trazodone 100 mg po qhs per his report Erosive esophagitis 03/10/2018 Assessment & Plan (12/02/2023 10:08 AM EDT): Under the care of GI specialist last seen 08/29/2023 admitted to Hospital 07/09/23 after presenting with coffee emesis and upper abdominal discomfort and subsequent EGD showed erosive esophagitis and erosive gastritis. He was told to continue his Dexilant famotidine was given omeprazole 20 mg twice a day.He did not have his colonoscopy which is expected to be rescheduled as an outpatient procedure. Assessment & Plan (08/26/2023 11:32 AM EST): Under the care of GI specialist admitted to Hospital 07/09/23 after presenting with coffee emesis and upper abdominal discomfort and subsequent EGD showed erosive esophagitis and erosive gastritis. He was told to continue his Dexilant famotidine was given omeprazole 20 mg twice a day.He did not have his colonoscopy which is expected to be rescheduled as an outpatient procedure. Assessment & Plan (06/04/2022 9:10 AM EST): Under the care of GI specialist Dr. Farah Pt EGD negative for H. Pilory 01/2018 On Pantoprazole 40 mg po qhs Recurrent major depression in partial remission 03/10/2018 Assessment & Plan (01/08/2024 1:41 PM EDT): Under the care of Dasia Soni [facility] Seroquel nd Trazodone were discontinued in the Hospital due to prolongued Qtc He is now on Sertraline 25 mg po daily Assessment & Plan (12/02/2023 11:36 AM EDT): Under the care of Dasia Soni [facility] On Seroquel 300 mg po qhs Bupropion and Trazodone 100 mg po qhs per his report Assessment & Plan (04/22/2023 11:41 AM EDT): Under the care of Dasia Soni [facility] On Seroquel 300 mg po qhs Bupropion and Trazodone 100 mg po qhs per his report Assessment & Plan (06/04/2022 9:09 AM EST): Under the care of Dasia Soni at [facility] Tubular adenoma of colon 03/10/2018 Assessment & Plan (06/15/2024 12:40 PM EST): Seen on colonoscopy 02/2017 5 year f/u. Repeat colonoscopy 04/23/2024 yielded a: C. Colon, rectal polyp: High-grade dysplasia/intramucosal adenocarcinoma. The tissue is fragmented and the margin cannot be evaluated, or assessed for a more aggressive lesion in any residual tissue. Complete excision of this lesion is recommended. Pt went in to have a repeat colonoscopy but the procedure was aborted due to patient going into A.fib Pt has now been cleared by [facility] 06/01 and is awaiting GI appointment for repeat colonoscopy Assessment & Plan (06/04/2022 9:54 AM EST): Seen on colonoscopy 02/2017 5 year f/u. Pt tells me he is already scheduled for June 2022 Chronic obstructive lung disease 07/22/2016 Assessment & Plan (06/15/2024 12:24 PM EST): Patient is here for a follow up He is under the care of Pulmonology Dr. Layton Sterling , last seen 03/31/2024 Currently on a regimen of Trelegy and Ventolin Dr Pisano his cps team lead mentioned in a previous note that patient underwent a bronchoscopy that was negative for malignancy He is now on Oxygen 3 Lt NC as per Pulmonology recommendations The patient also had a CT scan through the lung cancer screening program demonstrating a concerning 1.1 cm pulmonary nodule in the right upper lobe. Therefore, he was set up for a PET scan. PET scan but it was actually in reducing size and no significant FDG activity. Therefore the fact that the nodule is decreasing in size is very reassuring. However, they did document that he does have a new nodule measuring 6 mm. This is to small for PET scan yield. Therefore, he will need to have a repeat CT scan in 6 months for the new nodule. Dr Sterling discouraged him to continue the morphine due to the fact that morphine can worsen his respiratory drive and potentially worsen his respiratory failure. Assessment & Plan (01/08/2024 1:33 PM EDT): Patient is here for a follow up He is under the care of Pulmonology Dr. Layton Sterling , last seen 12/23/2023 Currently on a regimen of Trelegy and Ventolin Chest CT 04/05/2022 showed:Severe emphysema. New 0.8 x 1.8 cm irregularly-shaped spiculated parenchymal density in the right lower lobe adjacent to the diaphragmatic pleural surface. This may represent post infectious or inflammatory scarring related to pneumonia Dr Pisano his cps team lead mentioned in a previous note that patient underwent a bronchoscopy that was negative for malignancy He is now on Oxygen 3 Lt NC as per Pulmonology recommendations Assessment & Plan (12/02/2023 10:03 AM EDT): Patient is here for a follow up He is under the care of Pulmonology Dr. Layton Sterling , last seen 09/26/2023 Currently on a regimen of Trelegy and Ventolin Chest CT 04/05/2022 showed:Severe emphysema. New 0.8 x 1.8 cm irregularly-shaped spiculated parenchymal density in the right lower lobe adjacent to the diaphragmatic pleural surface. This may represent post infectious or inflammatory scarring related to pneumonia Dr Pisano his cps team lead mentioned in a previous note that patient underwent a bronchoscopy that was negative for malignancy Assessment & Plan (08/26/2023 11:40 AM EST): Patient is here for a follow up He is under the care of Pulmonology Dr. Layton Sterling , last seen 01/23/2023 Currently on a regimen of Trelegy and Ventolin Chest CT 04/05/2022 showed:Severe emphysema. New 0.8 x 1.8 cm irregularly-shaped spiculated parenchymal density in the right lower lobe adjacent to the diaphragmatic pleural surface. This may represent post infectious or inflammatory scarring related to pneumonia Pt was seen by Dr Pisano his cps team lead 08/2022 he mentioned in his note that patient underwent a bronchoscopy that was negative for malignancy Assessment & Plan (02/04/2023 11:38 AM EDT): Patient is here for a follow up He is under the care of Pulmonology Dr. Layton Sterling , last seen 01/23/2023 Currently on a regimen of Trelegy and Ventolin Chest CT 04/05/2022 showed:Severe emphysema. New 0.8 x 1.8 cm irregularly-shaped spiculated parenchymal density in the right lower lobe adjacent to the diaphragmatic pleural surface. This may represent post infectious or inflammatory scarring related to pneumonia Pt was seen by Dr Pisano his cps team lead 08/2022 he mentioned in his note that patient underwent a bronchoscopy that was negative for malignancy Assessment & Plan (09/20/2022 5:02 PM EDT): Patient is here for a follow up after a recent Hospitalization He is under the care of Pulmonology Dr. Layton Sterling Currently on a regimen of Trelegy and Ventolin Chest CT 04/05/2022 showed:Severe emphysema. New 0.8 x 1.8 cm irregularly-shaped spiculated parenchymal density in the right lower lobe adjacent to the diaphragmatic pleural surface. This may represent post infectious or inflammatory scarring related to pneumonia Pt was seen by Dr Pisano his cps team lead 08/2022 he mentioned in his note that patient underwent a bronchoscopy that was negative for malignancy Assessment & Plan (06/04/2022 9:38 AM EST): No recent exacerbation Under the care of Pulmonology Dr. Layton Sterling Currently on a regimen of Trelegy and Ventolin repeat Chest CT 04/05/2022 showed: Severe emphysema. New 0.8 x 1.8 cm irregularly-shaped spiculated parenchymal density in the right lower lobe adjacent to the diaphragmatic pleural surface. This may represent post infectious or inflammatory scarring related to pneumonia October [address] follow-up recommended. New mild airways disease in the lingula. Stable abnormal linear parenchymal density in the right upper lobe probably representing scarring. Pt was seen by Dr Pisano his cps team lead 05/21/2022 who recommended a repeat Chest CT and depending on findings he would then perhaps order a PET CT Edentulous 07/22/2016 Generalized anxiety disorder 07/22/2016 Glaucoma 07/22/2016 Hyperlipidemia 07/22/2016 Assessment & Plan (06/04/2022 9:06 AM EST): Pt here for a f/u Most recent lipid profile from: 03/23/2021 shows a total cholesterol of: 154 triglycerides of: 78 HDL of: 54 and LDL of: 83 Currently on a regimen of: Simvastatin 20 mg po qhs . I have recommended to continue taking simvastatin daily advised to try to adhere to a low cholesterol diet, counseled and educated about diet and exercise, Patient encouraged to come up with a personal goal for weight loss. Repeat Lipid profile ordered Smoker 07/22/2016 Resolved Problems Problem Noted Date Diagnosed Date Resolved Date UGIB (upper gastrointestinal bleed) 07/22/2023 12/02/2023 Assessment & Plan (08/26/2023 11:34 AM EST): Seen by Dr Garcia started daily iron and vit C and advise pt to hold on dexlansoprazole but ok to continue omeprazole BID and famotidine prn Pt to have CBC Assessment & Plan (07/22/2023 6:08 AM EST): -start daily iron and vit C and advise pt to hold on dexlansoprazole but ok to continue for now omeprazole BID and famotidine prn until f w GI-apt schedule for 07/29/2023 per pt -advised pt to have CBC and iron panel order already 4 days ago by previous provider-print order for pt today -advised to f up w PCP -has apt already scheduled for aprox 6 weeks-will need to repeat then CBC to monitor hb on started iron -alarm signs and symptoms discussed w pt ,reported ORTEGA likely from anemia -will need to reeval after started iron -Flu and COVID booster today 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 07/17/202304/2024 Right wrist pain 07/17/2023 07/17/2023 12/02/2023 Right lower lobe pneumonia 07/17/2023 07/17/2023 0 08/26/2023 Right clavicle fracture 07/17/2023 07/17/202311/21 Screening PSA (prostate specific antigen) 07/17/2023 07/17/2023 12/02/2023 Pre-op chest exam 07/17/2023 07/17/2023 12/02/2023 Pneumonia 07/17/2023 07/17/2023 12/02/2023 Hematemesis with nausea 07/17/2023 07/17/202311/21 Opacity of lung on imaging study 06/04/2022 12/02/2023 Assessment & Plan (06/04/2022 9:41 AM EST): Pt was seen in the ER 01/2022 for right sided back pain as part of his work up he had a CT of his abdomen that showed: Nonspecific new somewhat irregular airspace opacity in the right base adjacent to subpleural blebs, possibly related with atelectasis or scarring. Recommend reevaluation with an elective chest CT. repeat Chest CT 04/05/2022 showed Severe emphysema. New 0.8 x 1.8 cm irregularly-shaped spiculated parenchymal density in the right lower lobe adjacent to the diaphragmatic pleural surface. This may represent post infectious or inflammatory scarring related to pneumonia October [address] follow-up recommended. New mild airways disease in the lingula. Stable abnormal linear parenchymal density in the right upper lobe probably representing scarring. Pt already seen by Dr Sterling who ordered a repeat Chest CT Encounters Date Type Department Care Team Description 07/21/2024 10:30 AM EST Office Visit [facility] [address] [place] [address] Milena Lopez, LUIS ALBERTO Iron deficiency anemia, unspecified iron deficiency anemia type (Primary Dx); Compression fracture of lumbar vertebra, unspecified lumbar vertebral level, sequela; Hematuria, unspecified type 07/21/2024 Travel 07/14/2024 Telephone [facility] [address] [place] [address] Rigoberto Us MD August06/30/2024 Orders Only GENERIC EXTERNAL DATA DEPARTMENT Provider, Generic External Data 06/15/2024 12:00 PM EST Office Visit [facility] [address] [place] [address] Rigoberto Us MD Osteoporosis with current pathological fracture with delayed healing, unspecified osteoporosis type, subsequent encounter (Primary Dx); Centrilobular emphysema (CMS/HCC); Tubular adenoma of colon; Non-ischemic cardiomyopathy (CMS/HCC); Asymptomatic microscopic hematuria; Pain in both testicles; Encounter for immunization 06/15/2024 Telephone [facility] [address] [place] [address] Rigoberto Us MD Appointment Request 06/15/2024 Travel 06/07/2024 Telephone [facility] [address] [place] [address] Rigoberto Us MD Chart Prep 05/25/2024 Telephone [facility] [address] [facility] [place] [address] Rigoberto Us MD Medication Question 05/21/2024 Refill [facility] [address] [facility] [place] [address] Danielle Reynaga MD 05/10/2024 Refill [facility] [address] [facility] [place] [address] Rigoberto Us MD 05/03/2024 Refill [facility] [address] [place] [address] Rigoberto Us MD 04/30/2024 Telephone [facility] [address] [facility] [place] [address] Rigoberto Us MD Nurse Triage 04/28/2024 2:45 PM EST Telemedicine [facility] [address] [place] [address] Lorena Moore RN Osteoporosis with current pathological fracture with delayed healing, unspecified osteoporosis type, subsequent encounter 04/28/2024 Telephone [facility] [address] [place] [address] Lorena Moore RN 04/28/2024 Travel 04/23/2024 Orders Only GENERIC EXTERNAL DATA DEPARTMENT Provider, Generic External Data from Last 3 Months Immunizations Name Administration Dates Next Due Hep A, Adult 02/11/2012 Influenza High-dose Quadriva lent Preservative Free 06/04/2022,03/22/2021,03/21/2020 Influenza injectable quadriv alent IIV4 with preservative 03/09/2019,03/10/2018,08/04/2017 Influenza injectable quadriv alent preservative free 07/21/2023,07/22/2016 Influenza, High Dose Seasona l, Preservative Free 06/15/2024 Influenza, IIV3, injectable 06/10/2014 Influenza, Split (incl. brody fied surface antigen) 02/25/2013 Influenza, seasonal, injecta ble, preservative free 02/10/2015 Moderna Covid-19 Vaccine 12+ 05/16/2021,10/03/19 21,09/04/2020 Moderna Covid-19 Vaccine 6+ Bivalent 07/26/2022 Pfizer Covid-19 Vaccine 12+ 07/21/2023 Pneumococcal Conjugate PCV 20 06/04/2022 Pneumococcal Polysaccharide PPSV23 03/21/2020 RSV Bivalent 03/15/2023 TD (adult), 2 Lf tetanus tox oid, preservative free, adsorbed 04/26/1996 Tdap 02/25/2013 Zoster, Recombinant 09/19/2022,06/04/2022 Zoster, live 06/13/2015 Social History Tobacco Use Types Packs/Day Years Used Date Smoking Tobacco: Former Cigarettes Passive Smoke Exposure: Past Smokeless Tobacco: Never Tobacco Cessation:Counseling Given: Not Answered Alcohol Use Standard Drinks/Week Comments Not Currently [...] Orientation Straight 04/22/2022 10 :14 AM EDT Last Filed Vital Signs Vital Sign Reading [...] Mass Index 30.48 07/21/2024 10:41 AM EST Plan of Treatment Upcoming Encounters Date Type Department Care Team (Late st Contact Info) Description 09/09/2024 2:00 PM EDT Office Visit [facility] [address] [place] [address] Rigoberto Us MD [address] [place] [address] Health Maintenance Due Date Last Done Comments CT Colonography 1955 FIT DNA/Cologuard 1955 FIT 1955 FOBT 1955 Sigmoidoscopy 1955 Hepatitis C Screening 1972 DTaP/Tdap/Td Vaccines (2 - Td or Tdap) 02/25/2023 02/25/2013, 04/26/1996 COVID-19 Vaccine ( season) 2024 07/21/2023, 07/26/2022, 05/16/2021, Additional history exists SDOH Screening 07/14/2024 07/14/2023 Depression Screening 08/25/2024 08/26/2023, 08/26/19 Alcohol/Substance Use Screening 06/15/2025 06/15/2024 Tobacco Screening 07/21/2025 07/21/2024 Lipid Panel 03/23/2026 03/23/2021 Colonoscopy 04/23/2029 04/23/2024, 03/19/2017 Colorectal Cancer Screening 04/23/2029 Hepatitis A Vaccines Aged Out 02/11/2012 No long er eligible based on patient's age to complete this topic Pneumococcal Vaccine: 50+ Years Completed 06/04/2022, 03/21/2020 Zoster Vaccines Completed 09/19/2022, 05/23, 06/13/2015 RSV Patients and Patients Aged 60 years or older Completed 03/15/2023 Influenza Vaccine Completed 06/15/2024, , 06/04/2022, Additional history exists HIB Vaccines Aged Out No longer eligi ble based on patient's age to complete this topic HPV Vaccines Aged Out No longer eligi ble based on patient's age to complete this topic Hepatitis B Vaccines Aged Out No long er eligible based on patient's age to complete this topic IPV Vaccines Aged Out No longer eligi ble based on patient's age to complete this topic Meningococcal Vaccine Aged Out No eldon debbie eligible based on patient's age to complete this topic RSV under 20 months Aged Out No longe r eligible based on patient's age to complete this topic Rotavirus Vaccines Aged Out No longer eligible based on patient's age to complete this topic Procedures Procedure Name Priority Date/Time Associated Diagnosis Comments XR LUMBAR SPINE COMPLETE 4+ VIEWS Routine 07/21/2024 12:13 PM EST Compression fracture of lumbar vertebra, unspecified lumbar vertebral level, sequela POCT URINALYSIS DIPSTICK Routine 07/21/2024 12:09 PM EST Hematuria, unspecified type ALBUMIN Routine 06/30/2024 10:13 AM EST BASIC METABOLIC PANEL Routine 06/30/2024 10:13 AM EST HEMATOXYLIN AND EOSIN STAIN Routine 04/23/2024 10:05 AM EDT HM COLONOSCOPY Routine 04/23/2024 LIPID PANEL, STANDARD Routine 03/23/2021 9:05 AM EDT from Last 3 Months or Most Recently Relevant to Health Maintenance Results * XR Lumbar Spine Complete 4+ Views (07/21/2024 12:13 PM EST) Anatomical Region Laterality Modality Spine, L-spine Radiographic Cristiana ging 07/21/2024 12:1 3 PM EST Narrative 07/21/2024 12:55 PM EST ?[facility] ?[address] ?[place] [address] ?XRay Report ? Signed ? Patient: Avery Ware ?MR#: ?? [id number] ? : 1955 ?Acct:[id number] ? Age/Sex: 69 / M ?ADM Date: 07/21/24 ? Loc: HO.HHCX ? Attending Dr: Milena Lopez TAR POT WORKER ? Ordering Physician: Milena Lopez TAR POT WORKER ?? Date of Service: 07/21/24 ?? Procedure(s): XR lumbar spine 4V min ?? Accession Number(s): [id number] ? cc: Milena Lopez TAR POT WORKER ? . ? EXAMINATION: ?? X-ray lumbar [...] DD/ 1213 ? TD/TT: 07/21/24 1236 ? Head Sugar Reprocess Operator: ? Procedure Note Donilan, Image - 07/21/[address] [address] XRay Report Signed Patient: Avery WareMR#: [id number] : 1955cct:[id number] Age/Sex: 69 / MADM Date: 07/21/24 Loc: HO.HHCX Attending Dr: Milena SAHU Ordering Physician: Milena Lopez Date of Service: 07/21/24 Procedure(s): XR lumbar spine 4V min Accession Number(s): [id number] cc: Milena Lopez . EXAMINATION: X-ray lumbar [...] by: Samuel Andre MD 07/21/2024 12:52 PM EST Dictated By: Samuel Caldwell MD Signed By: <Electronically signed by Samuel Garcia MDin OV> 07/21/24 1252 DD/ 1213 TD/TT: 07/21/24 1236 Head Sugar Reprocess Operator: Milena SAHU IMG XR PROCEDURES Edited Resul t - Final * (ABNORMAL) POCT Urinalysis (07/21/2024 12:09 PM EST) Pathologist [facility] Color, UA Yellow Clarity, UA Clear Glucose, UA Negative Bilirubin, UA Negative Ketones, UA Negative Spec Grav, UA 1.020 Blood, UA Positive(A) Negative, None Detected pH, UA 6.0 Protein, UA Negative Urobilinogen, UA 0.2 Leukocytes, UA Negative Negative, Rare, Trace Nitrite, UA Negative Negative, None Detected Appearance, UA clear QC Media Lot # [id number] Lot# Expiration Date Urine 07/21/2024 12:0 9 PM EST Milena JOHNSONP POINT OF CARE TEST ENTER/EDIT ORDERABLES Final Result * Albumin (06/30/2024 10:13 AM EST) [facility] Albumin Level 3.9 3.5 - 5.0 g/dL [facility] 06/30/2024 10:1 3 AM EST 06/30/2024 10:13 AM EST Generic External Data Provider LAB BLOOD ORDERAB LES Final Result [facility] [address] [place] [phone] * (ABNORMAL) Basic Metabolic Panel (06/30/2024 10:13 AM EST) Pathologist [facility] Sodium 141 135 - 145 mmol/L [facility] Potassium 4.0 3.3 - 5.1 mmol/L [facility] Chloride 107 96 - 108 mmol/L [facility] Carbon Dioxide 28 22 - 29 mmol/L [facility] Anion Gap 10(L) 12 - 20 [facility] Urea Nitrogen (BUN) 20(H) 9 - 16 mg/dL [facility] Creatinine, Serum 0.89 0.5 - 1.4 mg/dL [facility] Estimated Glomerular Filt Rate >60 [facility] Comment:Chronic Kidney Disea se: Estimated GFR < 60 mL/min/[id number] Kidney Disease: Estimated GFR < 15 mL/min/1.73m2 Glucose 113 60 - 115 mg/dL [facility] Calcium 8.7 8.4 - 10.2 mg/dL [facility] 06/30/2024 10:1 3 AM EST 06/30/2024 10:13 AM EST us Generic External Data Provider LAB BLOOD ORDERAB LES Final Result [facility] [address] [place] [phone] * Hematoxylin and Eosin Stain (04/23/2024 10:05 AM EDT) 04/23/2024 10:0 5 AM EDT 04/23/2024 11:24 AM EDT Narrative [facility] - 05/03/2024 10:43 AM EST ----- ------- Name: Avery Ware ? Age/Sex: 68/M ? : 1955 Unit#: [id number] ?? Attend Dr: Luca Gonzales MD ?Re04/23/24 ?Status: DEP SDC ? Location: HO.SSS ?Disch: ? ----- ------- SPEC : [id number] ? RECD: 04/23/24 ? STATUS: ??SOUT ? REQ NUM: [id number] ? FRANCOIS: 04/23/24-1004 ? SUBM DR: Luca Gonzales MD ? ENTERED: ??04/23/24 ?SP TYPE: Surgical ? OTHR DR: Rigoberto Madrigal MD ?? ORDERED: ??HE Stain/9, Gross Micro L4/3, IHC, Add. immunos/4, CDX-2 ? COMMENTS: Block C sent to [facility] for MMR Panel IHC's on 04/27/24. ?Addendum Addendum ??1 ?Entered: 05/03/24-3652 (C): Immunohistochemical results: - MLH1:?Preserved (intact of nuclear expression). - MSH2:?Preserved (intact nuclear expression). - MSH6:?Preserved (intact nuclear expression). - PMS2:?Preserved (intact of nuclear expression). - CDX2: Positive. ? NOTE:?Results are NEGATIVE for Mismatch repair defect/ Dunn Syndrome- related lesion, however a small percentage of this form of disease may not be identified by this technique. Addendum Signed (signature on file) Nicole [place] 05/03/24 1043 ? ----- ------- ? Diagnosis ?? A. ??Colon, cecal polyps: ??Tubular adenomas (multiple pieces); negative for high-grade ?? dysplasia and carcinoma. ? B. ??Colon, ascending, polyp: ??Tubular adenoma; negative for high-grade dysplasia and ?? carcinoma. ? C. ??Colon, rectal polyp: ??High-grade dysplasia/intramucosal adenocarcinoma (multiple ?? pieces, see comment) within adenoma. ? Comment: ??(C): ??The tissue is fragmented and the margin cannot be evaluated, or assessed ?? for a more aggressive lesion in any residual tissue. ??Complete excision of this lesion is ?? recommended. ??Immunostains pending; addendum to follow. ?Clinical History Pre-Op Dx: ??Functional intestinal disorder, unspecified Post-Op Dx: Polyps ? CONTINUED ON NEXT PAGE ----- ------- Name: Avery Ware ? Age/Sex: 68/M ? : 1955 Unit#: [id number] ?? Attend Dr: Luca Gonzales MD ?Re04/23/24 ?Status: DEP SDC ? Location: HO.SSS ?Disch: ? ----- ------- SPEC : [id number] ? RECD: 04/23/24 ? STATUS: ??SOUT ? REQ NUM: [id number] ? FRANCOIS: 04/23/24 ? SUBM DR: Luca Gonzales MD ? ENTERED: ??04/23/24 ?SP TYPE: Surgical ? OTHR DR: Rigoberto Madrigal MD ?? ORDERED: ??HE Stain/9, Gross Micro L4/3, IHC, Add. immunos/4, CDX-2 ? COMMENTS: Block C sent to [facility] for MMR Panel IHC's on 04/27/24. ?Microscopic Description Microscopic sections reviewed. ? Material Received ?? A. Cecum polyps ?? B. Ascending colon polyp ?? C. Rectal polyp ? Gross Description Received in three parts. Part A: ??Received in formalin labeled ?cecum polyps? are several minute to 0.3 cm shen-pink irregular tissue fragments submitted in toto in a cassette labeled A. Part B: ??Received in formalin labeled ?ascending colon polyp? is a 0.25 cm shen-pink papular tissue fragment, submitted in toto in a cassette labeled B. Part C: ??Received in formalin labeled ?rectal polyp? are 4 shen and shen-pink irregular and papular tissue fragments ranging from 0.1 to 0.3 cm, submitted in toto in a cassette labeled C. CEDS Part C was reviewed intradepartmentally. Special studies ordered and performed at [facility]: ??CDX2 on C1. Special studies ordered and performed at [facility]: ??MLH1, MSH2, MSH6, and PMS2 on C1. Copies To: ?? Rigoberto Madrigal MD ?? [facility] ?? [address] ?? [place] [address] ?? [phone] ?? Luca Gonzales MD ?? [facility] ?? [address] ?? [place] [address] ?? [phone] ? CONTINUED ON NEXT PAGE ----- ------- Name: Avery Ware ? Age/Sex: 68/M ? : 1955 Unit#: [id number] ?? Attend Dr: Luca Gonzales MD ?Re04/23/24 ?Status: DEP SDC ? Location: HO.SSS ?Disch: ? ----- ------- SPEC : [id number] ? RECD: 04/23/24 ? STATUS: ??SOUT ? REQ NUM: [id number] ? FRANCOIS: 04/23/24-1004 ? SUBM DR: Luca Gonzales MD ? ENTERED: ??04/23/24 ?SP TYPE: Surgical ? OTHR DR: Rigoberto Madrigal MD ?? ORDERED: ??HE Stain/9, Gross Micro L4/3, IHC, Add. immunos/4, CDX-2 ? COMMENTS: Block C sent to [facility] for MMR Panel IHC's on 04/27/24. ? ----- ------- Signed (signature on file) Nicole Palmira 04/26/24 1430 ? ----- ------- ? END OF REPORT ? us Generic External Data Provider LAB BLOOD ORDERAB LES Final Result [facility] [address] [place] [phone] * Colonoscopy (04/23/2024) [facility] Colonoscopy Normal Normal us Historical Provider MD HEALTH MAINTENANCE Final Result * LIPID PANEL, STANDARD (03/23/2021 9:05 AM EDT) [facility] Chol/HDLC Ratio 2.9 <5.0 (calc) [facility] Cholesterol, Total 154 <200 mg/dL [facility] HDL Cholesterol 54 > OR = 40 mg/dL [facility] LDL Cholesterol 83 mg/dL (calc) [facility] Comment: Reference range: <100 ?? Desirable range <100 mg/dL for primary prevention; ?? <70 mg/dL for patients with CHD or diabetic patients ?? with > or = 2 CHD risk factors. ?? LDL-C is now calculated using the Félix ?? calculation, which is a validated novel method providing ?? better accuracy than the Friedewald equation in the ?? estimation of LDL-C. ?? Rodolfo MURO et al. OLIVIER. 2013;310(19): 7316-3406 ?? (http://education.[employer]/faq/VPY073) Non-HDL Cholesterol 100 <130 mg/dL (calc) [facility] Comment: For patients with diabetes plus 1 major ASCVD risk ?? factor, treating to a non-HDL-C goal of <100 mg/dL ?? (LDL-C of <70 mg/dL) is considered a therapeutic ?? option. Triglycerides 78 <150 mg/dL [facility] 03/23/2021 9:05 AM EDT us Rigoberto Ramirez MD LAB BLOOD ORDERABLES Final Result [facility] [address] from Last 3 Months or Most Recently Relevant to Health Maintenance Insurance [facility] STANDARD MEDICARE Care Teams Special Warfare Operator Relationship Specialty Start Date End Date Rigoberto Us MD [address] [place] [phone] PCP - General Internal Medicine 03/30/18
--- OUTSIDE RECORDS SUMMARY | 2024-07-21 14:32 | XMS_ITS | Encounter Summary ---
Author Organization [email or web address] Address [address] [place] [address] Care Team Providers Care Requirements Engineer Name Role Phone Rigoberto Us MD Primary Care Provide r Reason for Visit * Reason Onset Date Comments August Recall 07/14/2024 Encounter Details Date Type Department Care Team ([facility] Contact Info) Description 07/14/2024 Telephone [facility] [address] [place], [place] [phone] Rigoberto Us MD [address] [place], [place] [phone] August Recall Social History Tobacco Use Types Packs/Day Years [...] encounter Miscellaneous Notes * Telephone Encounter - Angeles Malagon [place] - 07/14/2024 11:28 AM EST T/C- Dairy Tester Left Voice Mail to return call to schedule an appointment. Recall letter sent. Appointment: Follow Up Note: osteoporosis Month: August With: Tosha Please schedule appointment if Patient calls Back. documented in this encounter Plan of Treatment Upcoming Encounters Date Type Department Care Team (Late st Contact Info) Description 09/09/2024 2:00 PM EDT Office Visit [facility] [address] [place] [address] Rigoberto Us MD [address] [place] [address] documented as of this encounter Visit Diagnoses Not on filedocumented in this encounter Additional Health Concerns Assessment Noted Time PHQ-9 Depression Total Score: 8 08/26/19 24 11:49 AM EST documented as of this encounter Care Teams Requirements Engineer Relationship Specialty Start Date End Date Rigoberto Us MD [address] [place] [id number] PCP - General Internal Medicine 03/30/18 documented as of this encounter
== END 2024-07-21 12:12 | disposition home or self-care (01) ==
LOC: HO.HHCX 12:11
PROVIDERS: Visit Provider Nurse Practitioner Family
DX: S32.000S Wedge compression fracture of unspecified lumbar vertebra, sequela (principal)
CPT/HCPCS: 72110

== ENCOUNTER → 2024-07-21 12:13 | Outpatient (BNV) | payer MEDICARE, MEDICAID, SELFPAY | PROVIDERS: Visit Provider Radiology Diagnostic Radiology | DX: M47.896 Other spondylosis, lumbar region (principal); Z98.1 Arthrodesis status | CPT/HCPCS: 72110 ==

== ENCOUNTER 2024-07-30 14:01 | Outpatient (REF) | payer MEDICARE, MEDICAID, SELFPAY | END 2024-07-30 14:02 | disposition home or self-care (01) | LOC: HO.US 14:01 | PROVIDERS: PCP Nurse Practitioner Family; Visit Provider Nurse Practitioner Family | DX: R31.9 Hematuria, unspecified (principal) | CPT/HCPCS: 76775 ==

== ENCOUNTER → 2024-07-30 14:02 | Outpatient (BNV) | payer MEDICARE, MEDICAID, SELFPAY | PROVIDERS: PCP Nurse Practitioner Family; Visit Provider Specialist | DX: N28.89 Other specified disorders of kidney and ureter (principal); N32.3 Diverticulum of bladder | CPT/HCPCS: 76775 ==

== ENCOUNTER 2024-09-21 11:42 | Outpatient (AMB) | payer MEDICARE, MEDICAID, SELFPAY ==
--- NOTE | 2024-09-21 11:58 | MHC.OFFVIS ---
Vital Signs 09/21/24 12:00 Height 5 ft 8 in Weight 206 lb 12.697 oz BMI 31.4 BP 90/66 Blood Pressure Location Lt brachial Position Sitting Pulse 64 Pulse Source Pulse Oximeter Pulse Oximetry (%) 94 Intake Visit Reasons: follow up medications Intake Note: Patient in office today in follow up of GERD. CC: Patient reports acid reflux and blood coming up when he lays down. Per patient he has been having diarrhea for a few months but it has been 2 days since he hasn't had a BM. Lumber Stacker Required: No Allergies No Known Allergies [No Known Allergies*] Allergy (Verified 09/21/24 12:07) HPI HPI follow up medications: Details: Assessment & Plan (1) Chronic idiopathic constipation: Code(s): K59.04 - Chronic idiopathic constipation (2) Small bowel motility disorder: Code(s): K59.9 - Functional intestinal disorder, unspecified (3) Erosive esophagitis: Code(s): K22.10 - Ulcer of esophagus without bleeding (4) Tubular adenoma of colon: Comment: 2016 scope = TA repeat 5 years aeb Code(s): D12.6 - Benign neoplasm of colon, unspecified Plan Surinamese #Sister translates per pt request His current GI regimen consists of omeprazole 20 mg twice a day, psyllium husk fiber, metoclopramide 10 mg 4 times a day, Linzess 145 micro g daily and famotidine 40 mg at bedtime for breakthrough and liquid carafate. He is feeling much better, swallowing is improved, has occasional loose stools but not so dark (carafate will help this as well). No CIC. No nausea. Keep 11/20 appt. COLONOSCOPY 04/23/24 Findings: Terminal Ileum: Not evaluated Cecum: A 5-6 mm sessile polyp - removed with a cold snare. A 2 cms flat polyp - raised with 2 cc of Eleview and removed with a stiff hot snare. Polypectomy site was closed with 2 hemoclips. A 3 cms x 1 cms elongated flat polyp (adjacent to the 2nd polyp). Polyp was raised with 3 cc of Eleview removed piecemeal with a stiff hot snare. Polypectomy site was closed with 3 hemoclips and marked with Ketty ink Ascending Colon: A 10 cms sessile polyp in the mid ascending colon - removed with a hot snare Transverse Colon: Normal Descending Colon: Moderate diverticulosis Sigmoid Colon: Moderate diverticulosis Rectum: A 15 to 18 cms polyp versus mass with central ulceration just inside the anal verge (seen on retroflexed exam). Multiple biopsies were obtained. Some bleeding noted from biopsy site - controlled with cautery using the with snare tip. Ano-rectum: Moderate internal hemorrhoids Impression and Post Procedure Diagnosis: Colonoscopy Findings: Four small to medium sized polyps were removed A few 3-5 mm polyp seen and not removed due to excessive length of the procedure. A 15 to 18 cms polyp versus mass with central ulceration just inside the anal verge (seen on retroflexed exam). Multiple biopsies were obtained. Some bleeding noted from biopsy site - controlled with cautery using the with snare tip. Moderate diverticulosis seen in the left colon Moderate hemorrhoids on retroflexed exam. Plan: Pt has a FU appointment on 05/07/24 with Nelda Chavez NP. Repeat sigmoidoscopy with colon prep if biopsies of the rectal lesion show adenomatous tissue or intramucosal cancer. BIOPSY Received: 04/23/24 ADDENDUM REPORT Addendum Addendum #1 (C): Immunohistochemical results: - MLH1: Preserved (intact of nuclear expression). - MSH2: Preserved (intact nuclear expression). - MSH6: Preserved (intact nuclear expression). - PMS2: Preserved (intact of nuclear expression). - CDX2: Positive. NOTE: Results are NEGATIVE for Mismatch repair defect/ Dunn Syndrome-related lesion, however a small percentage of this form of disease may not be identified by this technique. Electronically Signed By: Nicole Chavis 05/03/24 1043 Diagnosis A. Colon, cecal polyps: Tubular adenomas (multiple pieces); negative for high-grade dysplasia and carcinoma. B. Colon, ascending, polyp: Tubular adenoma; negative for high-grade dysplasia and carcinoma. C. Colon, rectal polyp: High-grade dysplasia/intramucosal adenocarcinoma (multiple pieces, see comment) within adenoma. Comment: (C): The tissue is fragmented and the margin cannot be evaluated, or assessed for a more aggressive lesion in any residual tissue. Complete excision of this lesion is recommended. Immunostains pending; addendum to follow. TODAY'S VISIT Surinamese #Sister translates per pt rquest His current GI regimen consists of omeprazole 20 mg twice a day, psyllium husk fiber, metoclopramide 10 mg 4 times a day, Linzess 145 micro g daily and famotidine 40 mg at bedtime for breakthrough He has had a hard time lately, he was hospitalized with pneumonia and sepsis. He is now on oxygen 2 L N/C. He is c/o diarrhea recently. But then his sister says he has not moved his bowels for 2 days. There is some confusion about this vs post prandial urgency, so I ask them to keep a log. The patient says he stopped eating roots that this caused his diarrhea. He continues to have burning that wakes him up at night, but he is adherent to his omeprazole 20 mg twice a day (I am reluctant to increase it more as he is on blood thinners) and famotidine at night. He is also taking sucralfate at noon. He does have a small sliding hiatal hernia likely contributing to his reflux. He does have a history of erosive esophagitis but given his respiratory issues I am reluctant to add an EGD to his colonoscopy. His colonoscopy for multiple polyposis is scheduled september. The procedure was well tolerated. The results were explained and the patient is agreeable to the follow-up interval as stated. The bowel pattern has returned to normal. Education was provided to tell any 1st degree relatives about their findings to be sure that they are screened by age 45. Educated that they will be put on a recall list when it is time for their repeat scope but should they move out of state or away from the hospital they will need to remember along with their primary to repeat the procedure in a timely fashion to avoid any adverse complications. Will re-evaluate him after his colonoscopy. [facility] Medical History (Updated 09/21/24 @ 13:09 by JUAN Low) Hematemesis with nausea Acute exacerbation of emphysema Chronic hypoxemic respiratory failure Nicotine dependence, cigarettes, uncomplicated Compression fracture of T7 vertebra Cervical spondylosis Bilateral tinnitus Ascending aorta dilatation Opacity of lung on imaging study Generalized anxiety disorder Edentulous Bipolar 1 disorder Emphysema lung BPH (benign prostatic hyperplasia) Osteoporosis Atrial fibrillation with rapid ventricular response Compression fracture of body of thoracic vertebra History of alcohol abuse Nonischemic cardiomyopathy Tubular adenoma of colon Pulmonary nodules COPD (chronic obstructive pulmonary disease) Hyperlipidemia COPD (chronic obstructive pulmonary disease) GERD (gastroesophageal reflux disease) Depression Hypertension Surgical History Hx of cystoscopy Hx of kyphoplasty History of surgery on left wrist (~03/21/10) Hx of endoscopy Hx of colonoscopy (~02/13/06) Hx of cataract surgery (~07/02/10) History of appendectomy History of gastric surgery Family History Mother Renal failure Father History of depression Brother Colon cancer Social History Household Members: Significant Other Housing: House Are you a primary child care group leader to a significant other at home: No Do you presently have visiting nurse or other home services: No Alcohol intake: never Patient Tobacco Use Status: Former Tobacco user Tobacco use type: Cigarette Cigarette Packs Per Day: 0.5 Years Smoked: 55 e-Cigarette/Vaping Use: Former Use Second Hand Smoke Exposure: No Advance Directives Date on File: 09/02/22 service: No Current occupational status: unemployed and disabled 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 Review of Systems Const Denies fatigue, Denies fever(s), Denies night sweats, Denies poor appetite and Denies weight loss ENT Reports Normal hearing present, Denies dysphagia, Denies odynophagia, Denies throat swelling and Denies tongue swelling Card Reports no additional complaints and Reports dyspnea Resp Reports dyspnea GI Details: No further hematemesis Denies abdominal pain, Denies melena, Denies bloating, Denies hematochezia, Reports constipation, Denies GI cramping, Denies dysphagia, Denies excessive flatus, Denies early satiety, Reports heartburn, Denies diarrhea, Reports loose stools, Denies nausea, Denies odynophagia, Denies vomiting and Denies hematemesis Skin/Breast Denies pruritus, Denies lesions, Denies rash and Denies jaundice Neuro Reports Normal hearing present and Denies Abnormal speech present Endo Denies fatigue Aller/Immun Denies throat swelling and Denies tongue swelling Physical Exam Vital Signs: Last Vital Signs Pulse 64 09/21/24 12:00 BP 90/66 09/21/24 12:00 Pulse Ox 94 09/21/24 12:00 BMI result Body Mass Index 31.4 Const General: cooperative, no acute distress, well developed and well groomed Nutritional Appearance: well nourished and obese Orientation/consciousness: oriented to person, oriented to place and oriented to time Limitations: language barrier and other limitations HEENT Head: Yes normocephalic and Yes atraumatic Eyes General: appearance normal, both eyes and all related structures Pupils: Equal, round and reactive pupils present Neck Neck: Yes normal visual inspection and Yes no lymphadenopathy Thyroid: Thyroid normal Resp Other: coarse sounds throughout right lung left clear, on oxygen portable. Effort & Inspection: normal respiratory effort and able to speak in complete sentences Cardio Rate: regular rate Rhythm: regular rhythm Heart sounds: Normal, physiologic split S2 sound present Peripheral pulses: radial pulses present and posterior tibial pulses present GI Inspection: No distended, No Abdominal panniculus present and Yes obesity Palpation (GI): Soft to palpation, nontender, no guarding, not rigid and No hepatosplenomegaly present Percussion: Yes normal to percussion Auscultation: normal bowel sounds Rectal Exam - Male: Yes deferred Skin General skin exam: no rashes or lesions noted, turgor normal, skin not dry, no jaundice, No spider nevi and no striae Rashes: no rashes Nails: normal Neuro General: oriented to person, oriented to place and oriented to time Cranial nerves: Yes Equal, round and reactive pupils present and Yes Normal hearing present Speech: No Abnormal speech present Extrem General: Yes normal to inspection, No clubbing, No cyanosis and No edema Psych Appearance: grossly normal and well kempt Mental Status: mental status grossly normal Speech and movement: Normal speech and movement present Affect: normal affect Attitude: cooperative Thought process: Normal thought process present and not confabulating Thought content: Normal thought content present Insight: Limited insight present (Psych) Judgement: Limited judgement present (Psych) Assessment & Plan Assessment & Plan (1) Small bowel motility disorder: Code(s): K59.9 - Functional intestinal disorder, unspecified Category: Medical (2) Erosive esophagitis: Code(s): K22.10 - Ulcer of esophagus without bleeding Category: Medical (3) Peptic ulcer disease: Code(s): K27.9 - Peptic ulcer, site unspecified, unspecified as acute or chronic, without hemorrhage or perforation Category: Medical (4) Tubular adenoma of colon: Comment: 04/2024 scope= rectal adenoma with high-grade dysplasia and tubular adenomas; 2016 scope = TA repeat 5 years aeb Code(s): D12.6 - Benign neoplasm of colon, unspecified Category: Medical (5) Chronic hypoxemic respiratory failure: Code(s): J96.11 - Chronic respiratory failure with hypoxia Category: Medical (6) High grade dysplasia in colonic adenoma: Comment: on 04/2024 scope Code(s): D12.6 - Benign neoplasm of colon, unspecified Category: Medical Plan Surinamese #Sister translates per pt rquest His current GI regimen consists of omeprazole 20 mg twice a day, psyllium husk fiber, metoclopramide 10 mg 4 times a day, Linzess 145 micro g daily and famotidine 40 mg at bedtime for breakthrough He has had a hard time lately, he was hospitalized with pneumonia and sepsis. He is now on oxygen 2 L N/C. He is c/o diarrhea recently. But then his sister says he has not moved his bowels for 2 days. There is some confusion about this vs post prandial urgency, so I ask them to keep a log. The patient says he stopped eating roots that this caused his diarrhea. He continues to have burning that wakes him up at night, but he is adherent to his omeprazole 20 mg twice a day (I am reluctant to increase it more as he is on blood thinners) and famotidine at night. He is also taking sucralfate at noon. He does have a small sliding hiatal hernia likely contributing to his reflux. He does have a history of erosive esophagitis but given his respiratory issues I am reluctant to add an EGD to his colonoscopy. His colonoscopy for multiple polyposis is scheduled fro September. The procedure was well tolerated. The results were explained and the patient is agreeable to the follow-up interval as stated. The bowel pattern has returned to normal. Education was provided to tell any 1st degree relatives about their findings to be sure that they are screened by age 45. Educated that they will be put on a recall list when it is time for their repeat scope but should they move out of state or away from the hospital they will need to remember along with their primary to repeat the procedure in a timely fashion to avoid any adverse complications. Will re-evaluate him after his colonoscopy. Medications: Changed From famotidine 40 mg PO BEDTIME PRN 90 tabs 0RF for heartburn To famotidine 40 mg PO BEDTIME 90 tabs 1RF for heartburn Refilled linaclotide (Linzess) 145 mcg PO QAM 90 caps 2RF Discontinued metoclopramide HCl Discontinued Reason: Doctor's Order 10 mg PO BID 60 tabs 0RF Coding Level of Care Code Est Pt Level 3 (34925) Diagnoses Small bowel motility disorder K59.9 Erosive esophagitis K22.10 Peptic ulcer disease K27.9 Tubular adenoma of colon D12.6 Chronic hypoxemic respiratory failure J96.11 High grade dysplasia in colonic adenoma D12.6
[2024-09-21 12:00] VITALS: BP 90/66; PULSE 64; O2SAT 94; BMI 31.4
--- OUTSIDE RECORDS SUMMARY | 2024-09-21 14:09 | XMS_ITS | Encounter Summary ---
Author Organization [employer] Address [address] [facility] 7t [place] [address] Care Team Providers Care Rfid Engineer Name Role Phone Rigoberto Us MD Primary Care Provide r September Encounter Details Date Type Department Care Team ([facility] st Contact Info) Description 09/14/2024 Orders Only [facility] [address] [place] [address] Provider, MD [place] Social History Tobacco Use [...] as of this encounter Plan of Treatment Not on file documented as of this encounter Procedures Procedure Name Priority Date/Time Associated Diagnosis Comments PET/CT BONE SKULL BASE TO MID THIGH Routine 08/15/2024 11:35 AM EST documented in this encounter Results * PET/CT Bone Skull Base to Mid Thigh (08/15/2024 11:35 AM EST) Anatomical Region Laterality Modality Body Computed Tomogra phy us Historical Provider MD KNAPP CT PROCEDURES Final R esult documented in this encounter Visit Diagnoses Not on filedocumented in this encounter Additional Health Concerns Assessment Noted Time PHQ-9 Depression Total Score: 8 08/26/19 24 11:49 AM EST documented as of this encounter Care Teams Rfid Engineer Relationship Specialty Start Date End Date Rigoberto Us MD [address] [place] [id number] PCP - General Internal Medicine 03/30/18September [address] [place] [address] 3rd [place] [address] Gastroenterology 09/09/24 documented as of this encounter
--- OUTSIDE RECORDS SUMMARY | 2024-09-21 14:09 | XMS_ITS | Encounter Summary ---
Author Organization [employer] Address 75 [facility] 7t [place] [address] Care Team Providers Care Shovel Log Loader Operator Name Role Phone Rigoberto Us MD Primary Care Provide r Timothy Broussard RN Unavailable [phone] September Unavailable Encounter Details Date Type Department Care Team (Late st Contact Info) Description 10/31/2022 Abstract [facility] MEDICINE [address] [place] [address] Rigoberto Us MD [address] [place] [address] Social History Tobacco Use Types Packs/Day Years [...] on file documented as of this encounter Visit Diagnoses Not on filedocumented in this encounter Care Teams Shovel Log Loader Operator Relationship Specialty Start Date End Date Rigoberto Us MD [address] [place] [address] [id number] PCP - General Internal Medicine 03/30/18 Timothy Broussard, GIANNA [address] [place] [id number] HeliotherapistFront Desk Clerk 12/26/23 04/07/[address] [place] [address] 3rd [place] [address] Gastroenterology 09/09/24 documented as of this encounter
--- OUTSIDE RECORDS SUMMARY | 2024-09-21 14:09 | XMS_ITS | Encounter Summary ---
Author Organization [employer] Address [address] [facility] [address] 7t [place] [address] Care Team Providers Care Ballistics Laboratory Gunsmith Name Role Phone Rigoberto Us MD Primary Care Provide r Timothy Broussard RN Unavailable [phone] September Unavailable Encounter Details Date Type Department Care Team (Late st Contact Info) Description 10/17/[address] [facility] MEDICINE [address] [place] [address] Provider, MD [place] Social History Tobacco Use [...] * Hm Colonoscopy (03/19/2017 8:42 AM EDT) Historical Provider HEALTH MAINTENANCE Final Result documented in this encounter Visit Diagnoses Not on filedocumented in this encounter Additional Health Concerns Assessment Noted Time PHQ-9 Depression Total Score: 8 08/26/19 24 11:49 AM EST documented as of this encounter Care Teams Ballistics Laboratory Gunsmith Relationship Specialty Start Date End Date Rigoberto Us MD [address] [place] [address] PCP - General Internal Medicine 03/30/18 Timothy Broussard RN [address] [place] [id number] It Application Support AnalystAnesthetic Assistant 12/26/23 04/07/24 KathySeptember [facility] 3rd [place] [address] Gastroenterology 09/09/24 documented as of this encounter
--- OUTSIDE RECORDS SUMMARY | 2024-09-21 14:09 | XMS_ITS | Encounter Summary ---
Author Organization [employer] Address 75 [facility] 7t [place] [address] Care Team Providers Care Hot Dip Galvanizer Name Role Phone Rigoberto Us MD Primary Care Provide r Timothy Broussard RN Unavailable [phone] September Unavailable Reason for Visit * Reason Onset Date Comments Med Refill 02/16/2024 Encounter Details Date Type Department Care Team (Late st Contact Info) Description 02/16/2024 Telephone [facility] MEDICINE [address] [place] [address] Rigoberto Us MD [address] [place], [place] [phone] Med Refill Social History Tobacco Use Types [...] 12 hr tablet To be sent to: [id number] [place], [place] - [address] [place] [address] documented in this encounter Plan of Treatment Not on file documented as of this encounter Visit Diagnoses Not on filedocumented in this encounter Additional Health Concerns Assessment Noted Time PHQ-9 Depression Total Score: 8 08/26/19 24 11:49 AM EST documented as of this encounter Care Teams Hot Dip Galvanizer Relationship Specialty Start Date End Date Rigoberto Us MD [address] [place] [address] PCP - General Internal Medicine 03/30/18 Timothy Broussard RN [address] [place] [id number] Automobile Body Repair ChiefSenior Health Educator 12/26/23 04/07/24 Kathy September [address] [place] [address] Drive 3rd [place] [address] Gastroenterology 09/09/24 documented as of this encounter
--- OUTSIDE RECORDS SUMMARY | 2024-09-21 14:09 | XMS_ITS | Encounter Summary ---
Author Organization [employer] Address [address] [facility] 7t [place] [address] Care Team Providers Care Building Insulation Supervisor Name Role Phone Rigoberto Us MD Primary Care Provide r Timothy Broussard RN Unavailable [phone] September Unavailable Encounter Details Date Type Department Care Team (Late st Contact Info) Description 10/04/2022 Orders Only [facility] MEDICINE [address] [place] [address] Demi Garcia, RN [address] [place] [address] Social History Tobacco Use Types Packs/Day Years [...] on filedocumented in this encounter Care Teams Building Insulation Supervisor Relationship Specialty Start Date End Date Rigoberto Us MD [address] [place] [address] PCP - General Internal Medicine 03/30/18 Timothy Broussard, GIANNA [address] [place] [address] Medical TranscriptionistElectrical Installation Supervisor 12/26/23 04/07/24 Kathy September [address] [place] [address] 3rd [place] [address] Gastroenterology 09/09/24 documented as of this encounter
--- OUTSIDE RECORDS SUMMARY | 2024-09-21 14:09 | XMS_ITS | Encounter Summary ---
Author Organization [employer] Address 75 [facility] 7t [place] [address] Care Team Providers Care Tailor Men'S Ready To Wear Name Role Phone Rigoberto Us MD Primary Care Provide r Timothy Broussard RN Unavailable [phone] September Unavailable Reason for Visit * Reason Onset Date Comments Reschedule 01/12/2024 Encounter Details Date Type Department Care Team ([facility] st Contact Info) Description 01/12/2024 Telephone [facility] MEDICINE [address] [place] [address] Rigoberto Us MD [address] [place], [place] [phone] Reschedule Social History Tobacco Use Types Packs/Day [...] EDT Tc from sister calling requesting r/s TRANSITIONS RN CARE COORDINATOR appt, she will bring him to the appt however this day shewill be busy. documented in this encounter Plan of Treatment Not on file documented as of this encounter Visit Diagnoses Not on filedocumented in this encounter Additional Health Concerns Assessment Noted Time PHQ-9 Depression Total Score: 8 08/26/19 24 11:49 AM EST documented as of this encounter Care Teams Tailor Men'S Ready To Wear Relationship Specialty Start Date End Date Rigoberto Us MD [address] [place] [address] PCP - General Internal Medicine 03/30/18 Timothy Broussard RN [address] [place] [id number] Medical Office TechnologistRib Stiffener And Heel Dipper 12/26/23 04/07/[address] 3rd [place] [address] Gastroenterology 09/09/24 documented as of this encounter
--- OUTSIDE RECORDS SUMMARY | 2024-09-21 14:09 | XMS_ITS | Encounter Summary ---
Author Organization [employer] Address 75 [facility] 7t [place] [address] Care Team Providers Care Container Repairer Name Role Phone Rigoberto Us MD Primary Care Provide r September Reason for Visit * Reason Onset Date Comments Medication Question 05/25/2024 Encounter Details Date Type Department Care Team ([facility] Contact Info) Description 05/25/2024 Telephone [facility] [address] [place], [place] [phone] Rigoberto Us MD [address] [place] [address] Medication Question Social History Tobacco Use Types [...] your housing situation today? I have yasmeen dick 07/14/[address] you li [...] Miscellaneous Notes * Telephone Encounter - Chloe Kendrick RN - 05/31/2024 9:58 AM EST Telephone [...] he's pain don't go away. Callback number [phone] (kh[place]) documented in this encounter Plan of Treatment Not on file documented as of this encounter Visit Diagnoses Not on filedocumented in this encounter Additional Health Concerns Assessment Noted Time PHQ-9 Depression Total Score: 8 08/26/19 24 11:49 AM EST documented as of this encounter Care Teams Container Repairer Relationship Specialty Start Date End Date Rigoberto Us MD [address] [place] [address] PCP - General Internal Medicine 03/30/18September [address] [place] [address] 3rd [place] [address] Gastroenterology 09/09/24 documented as of this encounter
--- OUTSIDE RECORDS SUMMARY | 2024-09-21 14:09 | XMS_ITS | Encounter Summary ---
Author Organization [employer] Address [address] [facility] [address]t [place] [address] Care Team Providers Care Etl Bi Developer Name Role Phone Rigoberto Us MD Primary Care Provide r Timothy Broussard RN Unavailable [phone] September Unavailable Reason for Visit * Reason Onset Date Comments Call Back Request 01/22/2024 Encounter Details Date Type Department Care Team ([facility] st Contact Info) Description 01/22/2024 Telephone [facility] [address] [place] [address] Rigoberto Us MD [address] [place] [address] Call Back Request Social History Tobacco Use [...] a call back in order to r/s TAPE CUTTER appt. Please contact at [phone] documented in this encounter Plan of Treatment Not on file documented as of this encounter Visit Diagnoses Not on filedocumented in this encounter Additional Health Concerns Assessment Noted Time PHQ-9 Depression Total Score: 8 08/26/19 24 11:49 AM EST documented as of this encounter Care Teams Etl Bi Developer Relationship Specialty Start Date End Date Rigoberto Us MD [address] [place] [address] PCP - General Internal Medicine 03/30/18 Timothy Broussard RN [address] [place] [id number] Die TripperFlume Tender 12/26/23 04/07/[address]rd [place] [address] Gastroenterology 09/09/24 documented as of this encounter
--- OUTSIDE RECORDS SUMMARY | 2024-09-21 14:09 | XMS_ITS | Encounter Summary ---
Author Organization [employer] Address [address] [place] [address] [address] [place] [address] Care Team Providers Care Industrial Specialist Name Role Phone Rigoberto Us MD Primary Care Provide r Timothy Broussard RN Unavailable [phone] September Unavailable Encounter Details Date Type Department Care Team (Late st Contact Info) Description 05/29/2022 Abstract [facility] [address] [place] [address] Provider, MD [place] Social History Tobacco Use [...] on filedocumented in this encounter Care Teams Industrial Specialist Relationship Specialty Start Date End Date Rigoberto Us MD [address] [place] [address] PCP - General Internal Medicine 03/30/18 Timothy Broussard RN [address] [place] [address] Occupational Therapist Home BasedHoe Runner 12/26/23 04/07/24September [address] [place] [address] Drive 3rd [place] [address] Gastroenterology 09/09/24 documented as of this encounter
--- OUTSIDE RECORDS SUMMARY | 2024-09-21 14:09 | XMS_ITS | Encounter Summary ---
Author Organization [employer] Address [address] [facility] 7t [place] [address] Care Team Providers Care Pumper Hand Name Role Phone Rigoberto Us MD Primary Care Provide r Timothy Broussard RN Unavailable [phone] September Unavailable Reason for Visit * Reason Onset Date Comments Lab Orders 08/30/2022 Encounter Details Date Type Department Care Team (Late st Contact Info) Description 08/30/2022 Telephone [facility] [address] [place] [address] Rigoberto Us MD [address] [place] [address] Lab Orders Social History Tobacco Use Types [...] - 08/30/2022 11:19 AM EST [place] [facility] [place] order for a lumbar spine for pt documented in this encounter Plan of Treatment Not on file documented as of this encounter Visit Diagnoses Not on filedocumented in this encounter Care Teams Pumper Hand Relationship Specialty Start Date End Date Rigoberto Us MD [address] [place] [address] PCP - General Internal Medicine 03/30/18 Timothy Broussard, GIANNA [address] [place] [address] Extracorporeal TechnicianCitrus Fruit Colorer 12/26/23 04/07/[address] [place] [address] 3rd [place] [address] Gastroenterology 09/09/24 documented as of this encounter
--- OUTSIDE RECORDS SUMMARY | 2024-09-21 14:09 | XMS_ITS | Encounter Summary ---
Author Organization [employer] Address [address] [facility] 7t [place] [address] Care Team Providers Care Medical Physics Professor Name Role Phone Rigoberto Us MD Primary Care Provide r Timothy Broussard RN Unavailable [phone] September Unavailable Encounter Details Date Type Department Care Team (Latest Contact Info) Description 10/12/2020 Abstract [facility] Dental, Provider, DDS Social History Tobacco [...] on filedocumented in this encounter Care Teams Medical Physics Professor Relationship Specialty Start Date End Date Rigoberto Us MD [address] [place] [address] PCP - General Internal Medicine 03/30/18 Timothy Broussard, RN [address] [place] [id number] Video Game DeveloperHome Care Aide 12/26/23 04/07/24September [address] 3rd [place] [address] Gastroenterology 09/09/24 documented as of this encounter
--- OUTSIDE RECORDS SUMMARY | 2024-09-21 14:10 | XMS_ITS | Clinical Summary ---
Author Organization [employer] Address [address] [facility] [address] [place] [address] Care Team Providers Care Field Coil Winder Name Role Phone Rigoberto Us MD Primary Care Provide r September Allergies No known active allergies Medications apixaban (Eliquis) 5 MG tablet Take 5 mg by mouth in the morning and at bedtime. Take 1 tablet 2 times a day with f Active albuterol 108 (90 Base) MCG/ACT inhaler Inhale 2 puffs every 4 (four) hours if needed. 03/23/20 19 Active sotalol (Betapace) 80 MG tablet Take 1 tablet by mouth every 12 (twelve) hours. Active Linzess 145 MCG capsule Take 145 mcg by mouth in the morning. 06/27/19 23 Active metoclopramide (Reglan) 10 MG tablet TAKE 1 TABLET BY MOUTH FOUR TIMES DAILY BEFORE MEALS AND BEFORE BEDTIME 05/22/20 22 Active famotidine (Pepcid) 40 MG tablet TAKE 1 TABLET BY MOUTH AT BEDTIME NEEDED FOR HEARTBURN 06/06/20 22 Active latanoprost (Xalatan) 0.005 % ophthalmic solution INSTILL 1 DROP IN BOTH EYES AT BEDTIME 07/30/19 23 Active Tymlos 3120 MCG/1.56ML solution pen-injector Inject 80 mcg under the skin 1 (one) time each day. 11/26/19 23 Active Trelegy Ellipta 100-62.5-25 MCG/ACT aerosol powder Take 1 puff by mouth 1 (one) time each day. 07/04/19 24 Active furosemide (Lasix) 20 MG tablet Take 1 tablet by mouth 1 (one) time each day. 05/24/20 23 Active tiZANidine (Zanaflex) 2 MG tablet Take 1 tablet by mouth if needed in the morning and at bedtime for muscle spasms. 07/15/19 24 Active omeprazole (PriLOSEC) [address] capsule Take 1 capsule by mouth 2 times daily. 11/21/19 24 Active sertraline (Zoloft) 25 MG tablet Take 1 tablet by mouth in the morning. 12/22/19 24 Active sucralfate (Carafate) 1 GM/10ML suspension SHAKE LIQUID AND TAKE 20 ML BY MOUTH EVERY DAY AT NOON Active Ascorbic Acid (vitamin C) 250 MG tablet TAKE 1 TABLET(250 MG) BY MOUTH IN THE MORNING 90 tablet 1 05/11/20 24 Active acetaminophen (Tylenol Extra Strength) 500 MG tabletIndication s:Osteoporosis with current pathological fracture with delayed healing, unspecified osteoporosis type, subsequent encounter Take 1 tablet (500 mg) by mouth every 8 (eight) hours if needed for mild pain. 90 tablet 3 06/15/20 24 Active ferrous gluconate (Fergon) 324 (38 Fe) MG tablet TAKE 1 TABLET(324 MG) BY MOUTH WITH BREAKFAST 90 tablet 08/05/19 25 Active simvastatin (Zocor) 20 MG tablet TAKE 1 TABLET BY MOUTH EVERY DAY IN THE EVENING 90 tablet 08/25/19 25 Active simvastatin (Zocor) 20 MG tablet TAKE 1 TABLET BY MOUTH EVERY DAY IN THE EVENING 90 tablet 05/24/20 24 025 Discontinued Active Problems Problem Noted Date Diagnosed Date Iron deficiency anemia 07/26/2024 Pain in both testicles 06/15/2024 Assessment & Plan (09/09/2024 2:00 PM EDT): Scheduled to see Urology 10/04/2024 Assessment & Plan (06/15/2024 12:43 PM EST): Intermittent, urology referral Hospital discharge follow-up 01/08/2024 Assessment & Plan (01/08/2024 12:56 PM EDT): Pt here for a HDF Admitted to [facility] from 12/11-12/16/2023 after he presented for evaluation [...] 07/17/2023 Non-ischemic cardiomyopathy 07/17/202306/24 Assessment & Plan (09/09/2024 2:03 PM EDT): Under the care of cardiology Assessment & Plan (06/15/2024 12:30 PM EST): Under the care of cardiology Osteoporosis 02/04/2023 Assessment & Plan (06/15/2024 12:20 PM EST): S/P kyphoplasty by IR at [facility] 09/20/2022 For pain control I have prescribed Oxycodone Diagnostic work up for secondary causes of osteoporosis unrevealing He is on Calcium and Vitamin D On Tymlos Evaluated by Endocrinology , last seen 05/18/2024. Assessment & Plan (12/02/2023 10:17 AM EDT): S/P kyphoplasty by IR at [facility] 09/20/2022 For pain control I have prescribed Oxycodone Diagnostic work up for secondary causes of osteoporosis unrevealing He is on Calcium and Vitamin D On Tymlos Evaluated by Endocrinology , last seen 08/14/2023 has a follow up in January Assessment & Plan (08/26/2023 11:31 AM EST): S/P kyphoplasty by IR at [facility] 09/20/2022 For pain control I have prescribed Oxycodone Diagnostic work up for secondary causes of osteoporosis unrevealing He is on Calcium and Vitamin D On Tymlos Evaluated by Endocrinology , last seen 08/14/2023 Assessment & Plan (02/04/2023 11:43 AM EDT): S/P kyphoplasty by IR at [facility] 09/20/2022 For pain control I have prescribed Oxycodone Diagnostic work up for secondary causes of osteoporosis unrevealing He is on Calcium and Vitamin D Started on Tymlos Evaluated by Endocrinology Hypertension 12/25/2022 Assessment & Plan (09/09/2024 2:04 PM EDT): BP is controlled on Sotalol Last Lab Results Component Value Date NA 141 06/30/2024 NA 139 07/09/2023 K 4.0 06/30/2024 K 4.8 07/09/2023 CL 107 06/30/2024 CL 108 07/09/2023 BUN 20 (H) 06/30/2024 BUN 16 07/09/2023 CREATININE 0.89 06/30/2024 CREATININE 1.24 07/09/2023 Assessment & Plan (12/02/2023 11:37 AM EDT): [...] bring readings at next visit w PCP Microscopic hematuria 09/24/2022 Assessment & Plan (09/09/2024 1:59 PM EDT): Pt seen in the ER U/A showed microscopic hematuria moderate amount. Repeat U/A showed a smaller amount but still present. Pt is asymptomatic. Pt referred to Urology, seen 02/03/2023 Had Cystoscopy 03/04/2023 Seen in ER had repeat US that showed: US Renal Comparison: None Findings: Right kidney normal size and echotexture, 9.4 cm length. Left kidney normal size and echotexture, 11.7 cm length. There are bilateral Bosniak 1 cysts, largest on the left measuring 1.4 x 1.2 x 0.1 cm. There is a questionable right renal calyceal diverticulum with calculus. IMPRESSION: 1. 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 No acute findings. Plan: Pt already scheduled for f/u with Urology 10/04/2024 Assessment & Plan (06/15/2024 12:42 PM EST): [...] and facet arthritis pt already following w cardiovascular technician receiving Tymlos (abaloparatide)-states was not receiving lately x issues with pharmacy but to resume now -pt takes med to cardiovascular technician for med administration -advised to continue [...] also refer to Endocrinology Dr Grant Compression of lumbar vertebra 09/12/2022 Overview (09/12/2022): Pt interested in Kyphoplasty Assessment & Plan (01/08/2024 1:42 PM EDT): S/P kyphoplasty by IR at [facility] 09/20/2022 For pain control I have prescribed Oxycodone but he stopped taking it Today he describes his pain at 7/10 when severe 10/10 Diagnostic work up for secondary causes of osteoporosis unrevealing He is on Calcium and Vitamin D Started on Tymlos, followed by Endocrinology Seen at [facility] On 03/19/23: Kyphon Balloon Kyphoplasty with Insertion of HV-R Bone Cement, L1 and L2 Vertebral Bodies: with 80% relief. Last seen at [facility] 10/24/2023 Scheduled for fluoroscopy guided diagnostic left L3-L4 DR L5 medial branch blocks with local anesthetic. Plan: Continue Flexeril and MS Contin 15 mg po BID risk discussed particularly around somnolence , sedation and counseled about fall prevention Assessment & Plan (12/02/2023 10:20 AM EDT): S/P kyphoplasty by IR at [facility] 09/20/2022 For pain control I have prescribed Oxycodone but he stopped taking it Today he describes his pain at 7/10 when severe 10/10 Diagnostic work up for secondary causes of osteoporosis unrevealing He is on Calcium and Vitamin D Started on Tymlos, followed by Endocrinology Seen at [facility] On 03/19/23: Kyphon Balloon Kyphoplasty with Insertion of HV-R Bone Cement, L1 and L2 Vertebral Bodies: with 80% relief. Last seen at [facility] 10/24/2023 Scheduled for fluoroscopy guided diagnostic left L3-L4 DR L5 medial branch blocks with local anesthetic. Plan: Continue Flexeril Start MS Contin 15 mg po BID risk discussed particularly around somnolence , sedation and counseled about fall prevention Assessment & Plan (04/22/2023 11:28 AM EDT): S/P kyphoplasty by IR at [facility] 09/20/2022 For pain control I have prescribed Oxycodone but he stopped taking it Diagnostic work up for secondary causes of osteoporosis unrevealing He is on Calcium and Vitamin D Started on Tymlos, followed by Endocrinology Seen at [facility] On 03/19/23: Kyphon Balloon Kyphoplasty with Insertion of HV-R Bone Cement, L1 and L2 Vertebral Bodies: with 80% relief. Assessment & Plan (02/04/2023 11:41 AM EDT): S/P kyphoplasty by IR at [facility] 09/20/2022 For pain control I have prescribed [...] Patient is undergoing kyphoplasty by IR at [facility] tomorrow 09/20/2022 For pain control I have [...] AM EDT): S/P kyphoplasty by IR at [facility] 09/20/2022 For pain control I have prescribed [...] Ascending aorta dilatation 06/04/2022 Assessment & Plan (09/09/2024 2:06 PM EDT): Chest CT showed dilated thoracic aorta 4.5 cm Patient was referred for Evaluation with Dr Waterman He tells me he has a follow up appointment Assessment & Plan (12/02/2023 11:36 AM EDT): [...] for a f/u He was seen by transport specialist at [facility] He tells me he was given injections [...] BID, He was advised to f/u with [facility] Pt reports he is still drinking on weekends 3 month f/u Atrial fibrillation 05/29/2022 Assessment & Plan (09/09/2024 2:05 PM EDT): He is on Eliquis 5mg BID Last seen by Dr Francis 07/01/2023 Assessment & Plan (08/26/2023 11:39 AM EST): He is on Eliquis 5mg BID Last seen by Dr Francis 12/26/2022 Assessment & Plan (02/04/2023 12:48 PM EDT): He is on Eliquis 5mg BID Last seen by Dr Francis 12/26/2022 Assessment & Plan (06/04/2022 9:52 AM EST): Patient here for a HDF He presented again to [facility] from 05/30 until 06/01 with c/o increased SOB. EKG showing persistent Afib. Rate remained suppressed on Sotalol therapy, He was kept on Eliquis 5mg BID and the recommendation was to f/u with cardiology as outpatient for Holter monitor Pt tells me he has an appointment with Dr Francis this Friday Bipolar disorder 10/06/2018 Assessment & Plan (09/09/2024 2:06 PM EDT): Under the care of Dasia Soni [facility] Assessment & Plan (12/02/2023 11:34 AM EDT): Under the care of Dasia Soni [facility] On Seroquel 300 mg po qhs Bupropion and Trazodone 100 mg po qhs per his report Assessment & Plan (04/22/2023 11:41 AM EDT): Under the care of Dasia Soni [facility] On Seroquel 300 mg po qhs Bupropion and Trazodone 100 mg po qhs per his report Assessment & Plan (06/04/2022 9:09 AM EST): Under the care of Dasia Soni [facility] On Seroquel 300 mg po qhs [...] in partial remission 03/10/2018 Assessment & Plan (09/09/2024 2:06 PM EDT): Under the care of Dasia Soni [facility] Seroquel nd Trazodone were discontinued in the Hospital due to prolongued Qtc He is now on Sertraline 25 mg po daily Assessment & Plan (01/08/2024 1:41 PM EDT): Under the care of Dasia Soni [facility] Seroquel nd Trazodone were discontinued in the Hospital due to prolongued Qtc He is now on Sertraline 25 mg po daily Assessment & Plan (12/02/2023 11:36 AM EDT): Under the care of [facility] On Seroquel 300 mg po qhs Bupropion and Trazodone 100 mg po qhs per his report Assessment & Plan (04/22/2023 11:41 AM EDT): Under the care of [facility] On Seroquel 300 mg po qhs Bupropion and Trazodone 100 mg po qhs per his report Assessment & Plan (06/04/2022 9:09 AM EST): Under the care of Dasia Soni [facility] Tubular adenoma of colon 03/10/2018 Assessment & Plan (09/09/2024 2:31 PM EDT): Seen on colonoscopy 02/2017 5 year f/u. [...] due to patient going into A.fib Pt was cleared by [facility] 06/01 and is awaiting GI appointment for repeat colonoscopy PET CT ordered by Dr Sterling that showed: MPRESSION: Low metabolic uptake in the right apical nodule. Findings are consistent with infection or inflammation although neoplasm cannot be excluded. Close CT follow-up would be recommended. There was an incidental finding of a Focus of increased uptake within the cecum. No abnormality is noted on CT. Direct visualization with colonoscopy would be recommended to exclude a primary colonic neoplasm. Minimal focus of increased metabolic activity in the distal esophagus most likely inflammatory. Pt has already been referred to GI for colonoscopy Patient has appointment with GI 09/21/2024. Discussed with patient and with his sister Kim Ortez Assessment & Plan (06/15/2024 12:40 PM EST): [...] A.fib Pt has now been cleared by [facility] 06/01 and is awaiting GI appointment for repeat colonoscopy Assessment & Plan (06/04/2022 9:54 AM EST): Seen on colonoscopy 02/2017 5 year f/u. Pt tells me he is already scheduled for June 2022 Chronic obstructive lung disease 07/22/2016 Assessment & Plan (09/09/2024 2:02 PM EDT): Patient is here for a follow up He is under the care of Pulmonology Dr. Layton Sterling , last seen 03/31/2024 Currently on a regimen of Trelegy and Ventolin Dr Pisano his machinist 2nd shift mentioned in a previous note that patient [...] drive and potentially worsen his respiratory failure. On 08/15/2024 pt had a repeat PET CT ordered by Dr Sterling that showed: MPRESSION: Low metabolic uptake in the right apical nodule. Findings are consistent with infection or inflammation although neoplasm cannot be excluded. Close CT follow-up would be recommended. There was an incidental finding of a Focus of increased uptake within the cecum. No abnormality is noted on CT. Direct visualization with colonoscopy would be recommended to exclude a primary colonic neoplasm. Minimal focus of increased metabolic activity in the distal esophagus most likely inflammatory. Pt has already been referred to GI for colonoscopy Assessment & Plan (06/15/2024 12:24 PM EST): Patient is here for a follow up He is under the care of Pulmonology Dr. Layton Sterling , last seen 03/31/2024 Currently on a regimen of Trelegy and Ventolin Dr Pisano his machinist 2nd shift mentioned in a previous note that patient [...] scarring related to pneumonia Dr Pisano his machinist 2nd shift mentioned in a previous note that patient [...] scarring related to pneumonia Dr Pisano his machinist 2nd shift mentioned in a previous note that patient underwent a bronchoscopy that was negative for malignancy Assessment & Plan (08/26/2023 11:40 AM EST): Patient is here for a follow up He is under the care of Pulmonology Dr. Layton Stelring , last seen 01/23/2023 Currently on a regimen of Trelegy and Ventolin Chest CT 04/05/2022 showed:Severe emphysema. New 0.8 x 1.8 cm irregularly-shaped spiculated parenchymal density in the right lower lobe adjacent to the diaphragmatic pleural surface. This may represent post infectious or inflammatory scarring related to pneumonia Pt was seen by Dr Pisano his machinist 2nd shift 08/2022 he mentioned in his note that [...] Pt was seen by Dr Pisano his machinist 2nd shift 08/2022 he mentioned in his note that [...] Pt was seen by Dr Pisano his machinist 2nd shift 08/2022 he mentioned in his note that [...] Pt was seen by Dr Pisano his machinist 2nd shift 05/21/2022 who recommended a repeat Chest CT [...] Encounters Date Type Department Care Team Description 09/14/2024 Orders Only [facility] Information Management [address] [place] [address] ProviderElmira MD 09/13/2024 Telephone [facility] [address] [place] [address] Rigoberto Us MD Appointment Request 09/09/2024 2:00 PM EDT Office Visit [facility] [place], [place] Berna [phone] Rigoberto Us MD Microscopic hematuria (Primary Dx); Pain in both testicles; Pulmonary nodule; Centrilobular emphysema (CMS/HCC); Tubular adenoma of colon; Non-ischemic cardiomyopathy (CMS/HCC); Primary hypertension; Atrial fibrillation, unspecified type (CMS/HCC); 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); Ascending aorta dilatation (CMS/HCC) 09/09/2024 Travel 09/03/2024 Population Health Risk Score [facility] () Department [address] [place] [phone] Provider, Population Health Generic 09/01/2024 Telephone [facility] [place] [address] Rigoberto Us MD Chart Prep 08/22/2024 Refill [facility] [place] [address] Windy Paula MD 08/06/2024 Telephone [facility] [place] [address] Rigoberto Us MD Results 08/04/2024 Refill [facility] [place] [address] Rigoberto Us MD 07/21/2024 10:30 AM EST Office Visit [facility] [place] [address] Milena Lopez, AD OPERATIONS SPECIALIST Iron deficiency anemia, unspecified iron deficiency anemia type (Primary Dx); Compression fracture of lumbar vertebra, unspecified lumbar vertebral level, sequela; Microscopic hematuria 07/21/2024 Travel 07/14/2024 Telephone [facility] [address] [place] [address] Rigoberto Us MD August Recall 06/30/2024 Orders Only GENERIC EXTERNAL DATA DEPARTMENT [...] Sign Reading Time Taken Comments Blood Pressure 120/80 09/09/2024 1:47 PM EDT Pulse 63 09/09/2024 1:47 PM EDT Temperature 36 ??C (96.8 ??F) 09/09/2024 1:47 PM EDT Respiratory Rate 20 09/09/2024 1:47 PM EDT Oxygen Saturation 98% 09/09/2024 1:47 PM EDT Inhaled Oxygen Concentration - - Weight 93.6 kg (206 lb 6.4 oz) 09/09/2024 1:47 P M EDT Height 175.3 cm (5' 9 ) 07/21/2024 10:41 AM EST Body Mass Index 30.48 07/21/2024 10:41 AM EST Plan of Treatment Health Maintenance Due Date Last Done Comments [...] MID THIGH Routine 08/15/2024 11:35 AM EST US RENAL BI Routine 07/31/2024 9:24 AM EST Microscopic hematuria XR LUMBAR SPINE COMPLETE 4+ VIEWS Routine 07/21/2024 12:13 PM EST Compression fracture of lumbar vertebra, unspecified lumbar vertebral level, sequela POCT URINALYSIS DIPSTICK Routine 07/21/2024 12:09 PM EST Microscopic hematuria ALBUMIN Routine 06/30/2024 10:13 AM EST BASIC METABOLIC PANEL Routine 06/30/2024 10:13 AM EST HM COLONOSCOPY Routine 04/23/2024 LIPID PANEL, STANDARD Routine 03/23/2021 9:05 AM EDT from Last 3 Months or Most Recently Relevant to Health Maintenance Results * PET/CT Bone Skull Base to Mid Thigh (08/15/2024 11:35 AM EST) Anatomical Region Laterality Modality Body Computed Tomogra phy us Historical Provider MD KNAPP CT PROCEDURES Final R esult * US RENAL BI (07/31/2024 9:24 AM EST) Anatomical Region Laterality Modality Abdomen Ultrasound 07/31/2024 9:24 AM EST Narrative 07/31/2024 9:26 AM EST ? [facility] ?[address] ?[place] [address] ? Ultrasound Report ? Signed ? Patient: Bosch Soni,Avery ?MR#: ?? [id number] ? : 1955 ?Acct:[id number] ? Age/Sex: 69 / M ?ADM Date: 02/07/25 ? Loc: HO.US ? Attending Dr: Milena SAHU ? Ordering Physician: Milena Lopez ?? Date of Service: 07/30/24 ?? Procedure(s): US renal BI ?? Accession Number(s): [id number] ? cc: Milena Lopez ? CLINICAL HISTORY: chrronic left sided pain with hematuria ? US Renal ? Comparison: None ? Findings: ?? Right kidney normal size and echotexture, 9.4 cm length. ?? Left kidney normal size and echotexture, 11.7 cm length. ? There are bilateral Bosniak 1 cysts, largest on the left measuring 1.4 x ?? 1.2 x 0.1 cm. ?? There is a questionable right renal calyceal diverticulum with calculus. ? IMPRESSION: ?? 1. 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 No acute findings. ? This document has been electronically signed by: Fredy Serrano MD on ?? 07/31/2024 09:24:34 ? Dictated By: ?Fredy Serrano MD ? Signed By: ?<Electronically signed by Fredy Serrano MD in OV> ?07/31/24 0925 ? DD/ 3 ? TD/TT: 07/31/24923 ? Ticketing Agent: ? Procedure Note Desiree Jimenez - 07/31/2024 [place] [address] Ultrasound Report Signed Patient: Avery WareMR#: [id number] : 1955cct:[id number] Age/Sex: 69 / MADM Date: 07/30/24 Loc: HO.US Attending Dr: Milena SAHU Ordering Physician: Milena Lopez Date of Service: 07/30/24 Procedure(s): US renal BI Accession Number(s): [id number] cc: Milena Lopez CLINICAL HISTORY: chrronic left sided pain with hematuria US Renal Comparison: None Findings: Right kidney normal size and echotexture, 9.4 cm length. Left kidney normal size and echotexture, 11.7 cm length. There are bilateral Bosniak 1 cysts, largest on the left measuring 1.4 x 1.2 x 0.1 cm. There is a questionable right renal calyceal diverticulum with calculus. IMPRESSION: 1. 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 No acute findings. This document has been electronically signed by: Fredy Serrano MD on 07/31/2024 09:24:34 Dictated By: Fredy Serrano MD Signed By: <Electronically signed by Fredy Serrano MD in OV> 07/31/24924 DD/ 3 TD/TT: 07/31/24923 Ticketing Agent: us Milena Lopez AD OPERATIONS SPECIALIST IMG US PROCEDURES Edited Resul t - Final * XR Lumbar Spine Complete 4+ Views (07/21/2024 12:13 PM EST) Anatomical Region Laterality Modality Spine, L-spine Radiographic Cristiana ging 07/21/2024 12:1 3 PM EST Narrative 07/21/2024 12:55 PM EST ?[facility] ?[address] ?[place] [address] ?XRay Report ? Signed ? Patient: Avery Ware ?MR#: ?? [id number] ? : 1955 ?Acct:[id number] ? Age/Sex: 69 / M ?ADM Date: 07/21/24 ? Loc: HO.HHCX ? Attending Dr: Milena SAHU ? Ordering Physician: Milena Lopez ?? Date of Service: 07/21/24 ?? Procedure(s): XR lumbar spine 4V min ?? Accession Number(s): [id number] ? cc: Milena Lopez ? . ? [...] DD/ 1213 ? TD/TT: 07/21/24 1236 ? Ticketing Agent: ? Procedure Note Donfloydinterpreter, Image - 07/21/[address] [address] XRay Report Signed Patient: Avery WareMR#: [id number] : 4Acct:[id number] Age/Sex: 69 / MADM Date: 07/21/24 [facility] Attending Dr: Milena SAHU Ordering Physician: Milena Lopez Date of Service: 07/21/24 Procedure(s): XR lumbar spine 4V min Accession Number(s): [id number] cc: Milena Lopez . EXAMINATION: X-ray lumbar [...] by: Samuel Andre MD 07/21/2024 12:52 PM [facility] Dictated By: Samuel Caldwell MD Signed By: <Electronically signed by Samuel Garcia MDin OV> 07/21/24 1252 DD/ 1213 TD/TT: 07/21/24 1236 Ticketing Agent: Milena JOHNSONP IMG XR PROCEDURES Edited Resul t - [...] Result * Albumin (06/30/2024 10:13 AM EST) Pathologist [facility] Albumin Level 3.9 3.5 - 5.0 g/dL [facility] 06/30/2024 10:1 3 AM EST 06/30/2024 10:13 AM EST Generic External Data Provider LAB BLOOD ORDERAB LES Final Result [facility] [address] [place] [phone] * (ABNORMAL) Basic Metabolic Panel (06/30/2024 10:13 AM EST) Sodium 141 135 - 145 mmol/L [facility] Potassium 4.0 3.3 - 5.1 mmol/L [facility] Chloride 107 96 - 108 mmol/L [facility] Carbon Dioxide 28 22 - 29 mmol/L [facility] Anion Gap 10(L) 12 - 20 [facility] Urea Nitrogen (BUN) 20(H) 9 - 16 mg/dL [facility] Creatinine, Serum 0.89 0.5 - 1.4 mg/dL [facility] Estimated Glomerular Filt Rate >60 [facility] Comment:Chronic Kidney Disea se: Estimated GFR < 60 mL/min/[id number] Kidney Disease: Estimated GFR < 15 mL/min/1.73m2 Glucose 113 60 - 115 mg/dL [facility] Calcium 8.7 8.4 - 10.2 mg/dL [facility] 06/30/2024 10:1 3 AM EST 06/30/2024 10:13 AM EST us Generic External Data Provider LAB BLOOD ORDERAB LES Final Result [facility] [address] [place] [phone] * Colonoscopy (04/23/2024) Colonoscopy Normal Normal Historical Provider HEALTH MAINTENANCE Final Result * LIPID PANEL, STANDARD (03/23/2021 9:05 AM EDT) Chol/HDLC Ratio 2.9 <5.0 (calc) [facility] [...] ?? Rodolfo MURO et al. OLIVIER. 2013;310(19): [id number] ?? (http://education.OQVestir/faq/WEP792) Non-HDL Cholesterol 100 <130 mg/dL (calc) [facility] LAB SYSTEM Comment: For patients with diabetes plus 1 major ASCVD risk ?? factor, treating to a non-HDL-C goal of <100 mg/dL ?? (LDL-C of <70 mg/dL) is considered a therapeutic ?? option. Triglycerides 78 <150 mg/dL FOUND ATFORMERLY [facility] 03/23/2021 9:05 AM EDT us Rigoberto Ramirez MD LAB BLOOD ORDERABLES Final Result [facility] [address] from Last 3 Months or Most Recently Relevant to Health Maintenance Insurance [facility] STAND[place] [address] Care Teams Field Coil Winder Relationship Specialty Start Date End Date Rigoberto Us MD [address] [place] [address] [place] [address] PCP - General Internal Medicine 03/30/18September [address] [place] [address] 3rd [place] [address] Gastroenterology 09/09/24
== END 2024-09-21 12:41 | disposition home or self-care (01) ==
LOC: HO.HGI 11:43
PROVIDERS: PCP Internal Medicine; Visit Provider Nurse Practitioner
DX: K59.9 Functional intestinal disorder, unspecified (principal); K22.10 Ulcer of esophagus without bleeding; K27.9 Peptic ulcer, site unspecified, unspecified as acute or chronic, without hemorrhage or perforation; D12.6 Benign neoplasm of colon, unspecified; J96.11 Chronic respiratory failure with hypoxia
CPT/HCPCS: 99213

== ENCOUNTER → 2024-09-21 11:42 | Outpatient (BNVA) | payer MEDICARE, MEDICAID, SELFPAY | PROVIDERS: PCP Internal Medicine; Visit Provider Nurse Practitioner | DX: K59.9 Functional intestinal disorder, unspecified (principal); K22.10 Ulcer of esophagus without bleeding; K27.9 Peptic ulcer, site unspecified, unspecified as acute or chronic, without hemorrhage or perforation; D12.6 Benign neoplasm of colon, unspecified; J96.11 Chronic respiratory failure with hypoxia | CPT/HCPCS: 99212 ==

== ENCOUNTER 2024-09-30 08:31 | Outpatient (REF) | payer MEDICARE, MEDICAID, SELFPAY ==
--- NOTE | ~2024-09-30 | CT_ITS ---
EXAMINATION: CT CHEST WITHOUT CONTRAST CLINICAL INFORMATION: Solitary pulmonary nodule. COMPARISON: January 08, 2024 demonstrated scattered less than 2 mm pulmonary nodules. TECHNIQUE: Multidetector volumetric CT imaging of the chest was done. Axial MIP volume rendering provided. Sagittal and coronal reformatted images were obtained. This CT examination was performed using dose optimization techniques as appropriate, variously including the following: *Automated exposure control *Adjustment of mA and/or kV according to patient size (this includes techniques or standardized protocols for targeted exams where dose is matched to indication/reason for exam; i.e. extremities or head) *Use of iterative reconstruction technique. DLP: 146 mGy centimeter. FINDINGS: SENIOR TECHNICAL ARCHITECT: Volume loss, right lung. Cardiomediastinal structures towards the right hemithorax likely patient's positioning. For level kyphoplasty/vertebroplasty in the thoracolumbar spine. Patient's large body habitus. LUNGS: Centrilobular and paraseptal emphysematous changes involving mostly the upper and to a lesser extent lower lung lobes. There is asymmetric low lung volume on the right side. There is apical lung scarring involving mostly the right upper lobe with the air cells. Calcifications. Punctate 1 mm calcified pulmonary nodules in the periphery of the right lung. There is a cluster of 3 mm groundglass nodule in the right lower lung lobe. No bronchiectasis. No honeycombing. Respiratory airways patent. MEDIASTINUM: Nonspecific mildly prominent lymph nodes, the most conspicuous in the right anterior paratracheal measures 1.2 cm. The ascending thoracic aorta measures 4.2 cm in maximum diameter. Calcified plaques in the thoracic aorta wall and the origin of the left subclavian artery. Calcified plaques in the origin of the right CCA. No gross pericardial effusion. The heart appears small. CORONARY ARTERY CALCIFICATION: Calcified plaques mostly at the LAD. PLEURA: No pleural effusion. No pneumothorax. AXILLA: No lymphadenopathy. UPPER ABDOMEN: Small hilar hernia. Contracted gallbladder. Lipo substitution throughout the pancreatic parenchyma. Kyphoplasty/vertebroplasty procedure at T7, T9 and L1 vertebral bodies. No acute fracture or gross listhesis. S-shaped curvature of the thoracolumbar spine. No lytic or blastic lesions.. OSSEOUS STRUCTURES: Kyphoplasty/vertebroplasty procedure at T7, T9 and L1 vertebral bodies. No acute fracture or gross listhesis. S-shaped curvature of the thoracolumbar spine. No lytic or blastic lesions.. CT/CT chest wo IV con IMPRESSION: Overall less pronounced/decreased morphology of the previously described pulmonary nodules. Overall improved. Centrilobular and paraseptal emphysematous changes with the volume loss and retraction of the right lung. 4.2 cm ectasia, ascending thoracic aorta. Fleischner guidelines were followed. Electronically signed by: Samuel Andre MD 09/30/2024 09:33 AM EDT
--- OUTSIDE RECORDS SUMMARY | 2024-09-30 08:44 | XMS_ITS | Encounter Summary ---
Author Organization [employer] Address 75 [facility] 7t [place] [address] Care Team Providers Care Licensed Direct Entry Midwife Name Role Phone Rigoberto Us MD Primary Care Provide r Timothy Broussard RN Unavailable [phone] September Unavailable Encounter Details Date Type Department Care Team (Latest Contact Info) Description 10/12/2020 Abstract [facility] CONVERSIONS Dental, Provider, DDS Social History [...] on filedocumented in this encounter Care Teams Licensed Direct Entry Midwife Relationship Specialty Start Date End Date Rigoberto Us MD 230 [place] [address] PCP - General Internal Medicine 03/30/18 Timothy Broussard, RN [address] [place] [address] Critical Care Clinical Nurse SpecialistTraffic Line Painter 12/26/23 04/07/24September [address] 3rd [place] [address] Gastroenterology 09/09/24 documented as of this encounter
--- OUTSIDE RECORDS SUMMARY | 2024-09-30 08:44 | XMS_ITS | Encounter Summary ---
Author Organization [email or web address] Address 75 [facility] 7t [place] [address] Care Team Providers Care Law Firm Administrator Name Role Phone Rigoberto Us MD Primary Care Provide r Timothy Broussard RN Unavailable [phone] September Unavailable Encounter Details Date Type Department Care Team (Late st Contact Info) Description 10/04/2022 Orders Only [facility] MEDICINE 230 [place] [address] Demi Garcia, RN 230 [place] [address] Social History Tobacco Use Types Packs/Day Years [...] on filedocumented in this encounter Care Teams Law Firm Administrator Relationship Specialty Start Date End Date Rigoberto Us MD 230 [place] [address] PCP - General Internal Medicine 03/30/18 Timothy Broussard, GIANNA [address] [place] [address] Structural Metal WorkerStorage Administrator 12/26/23 04/07/24 Kathy September [address] [place] [address] 3rd [place] [address] Gastroenterology 09/09/24 documented as of this encounter
--- OUTSIDE RECORDS SUMMARY | 2024-09-30 08:44 | XMS_ITS | Encounter Summary ---
Author Organization [employer] Address 75 [facility] 7t [place] [address] Care Team Providers Care Clip Coater Name Role Phone Rigoberto Us MD Primary Care Provide r Timothy Broussard RN Unavailable [phone] September Unavailable Reason for Visit * Reason Onset Date Comments Med Refill 02/16/2024 Encounter Details Date Type Department Care Team (Late st Contact Info) Description 02/16/2024 Telephone [facility] MEDICINE [address] [place] [address] Rigoberto Us MD 230 [place], [place] [phone] Med Refill Social History Tobacco Use Types [...] 12 hr tablet To be sent to: [id number] [place], [place] - [address] [place] [address] documented in this encounter Plan of Treatment Not on file documented as of this encounter Visit Diagnoses Not on filedocumented in this encounter Additional Health Concerns Assessment Noted Time PHQ-9 Depression Total Score: 8 08/26/19 24 11:49 AM EST documented as of this encounter Care Teams Clip Coater Relationship Specialty Start Date End Date Rigoberto Us MD 230 [place] [address] PCP - General Internal Medicine 03/30/18 Timothy Broussard RN [address] [place] [address] Spool TenderRadiology Clerk 12/26/23 04/07/24 Kathy September [address] [place] [address] Drive 3rd [place] [address] Gastroenterology 09/09/24 documented as of this encounter
--- OUTSIDE RECORDS SUMMARY | 2024-09-30 08:44 | XMS_ITS | Encounter Summary ---
Author Organization [employer] Address 75 [facility] 7t [place] [address] Care Team Providers Care Floor Installer Name Role Phone Rigoberto Us MD Primary Care Provide r Timothy Broussard RN Unavailable [phone] September Unavailable Encounter Details Date Type Department Care Team (Late st Contact Info) Description 10/31/2022 Abstract [facility] MEDICINE 230 [place] [address] Rigoberto Us MD 230 [place] [address] Social History Tobacco Use Types Packs/Day Years [...] on filedocumented in this encounter Care Teams Floor Installer Relationship Specialty Start Date End Date Rigoberto Us MD [address] [place] [address] [id number] PCP - General Internal Medicine 03/30/18 Timothy Broussard, GIANNA [address] [place] [address] Hat Brusher MachineCurber 12/26/23 04/07/[address] [place] [address] 3rd [place] [address] Gastroenterology 09/09/24 documented as of this encounter
--- OUTSIDE RECORDS SUMMARY | 2024-09-30 08:44 | XMS_ITS | Encounter Summary ---
Author Organization [employer] Address [address] [facility] [address] 7t [place] [address] Care Team Providers Care Drawing Instructor Name Role Phone Rigoberto Us MD Primary Care Provide r Timothy Broussard RN Unavailable [phone] September Unavailable Encounter Details Date Type Department Care Team (Late st Contact Info) Description 10/17/2023 Orders Only [facility] MEDICINE 230 [place] [address] Provider, MD [place] Social History Tobacco Use [...] documented as of this encounter Care Teams Drawing Instructor Relationship Specialty Start Date End Date Rigoberto Us MD 230 [place] [address] PCP - General Internal Medicine 03/30/18 Timothy Broussard RN [address] [place] [address] I[address] 9 CoderSenior Power Scheduler 12/26/23 04/07/24 KathySeptember 11 [facility] 3rd [place] [address] Gastroenterology 09/09/24 documented as of this encounter
--- OUTSIDE RECORDS SUMMARY | 2024-09-30 08:44 | XMS_ITS | Encounter Summary ---
Author Organization [employer] Address [address] [place] [address] 7t [place] [address] Care Team Providers Care Apple Thinner Name Role Phone Rigoberto Us MD Primary Care Provide r Timothy Broussard RN Unavailable [phone] September Unavailable Encounter Details Date Type Department Care Team (Late st Contact Info) Description 05/29/2022 Abstract [facility] MEDICINE [address] [place] [address] Provider, MD [place] Social History Tobacco Use [...] on filedocumented in this encounter Care Teams Apple Thinner Relationship Specialty Start Date End Date Rigoebrto Us MD 230 [place] [address] PCP - General Internal Medicine 03/30/18 Timothy Broussard RN [address] [place] [address] Nursing Home AssistantWound Care Coordinator 12/26/23 04/07/24September [address] [place] [address] Drive 3rd [place] [address] Gastroenterology 09/09/24 documented as of this encounter
--- OUTSIDE RECORDS SUMMARY | 2024-09-30 08:44 | XMS_ITS | Encounter Summary ---
Author Organization [employer] Address 75 [facility] 7t [place] [address] Care Team Providers Care Office Secretary Name Role Phone Rigoberto Us MD Primary Care Provide r Timothy Broussard RN Unavailable [phone] September Unavailable Reason for Visit * Reason Onset Date Comments Call Back Request 01/22/2024 Encounter Details Date Type Department Care Team ([facility] st Contact Info) Description 01/22/2024 Telephone [facility] MEDICINE 230 [place] [address] Rigoberto Us MD [address] [place] [address] Call Back Request Social History Tobacco Use [...] a call back in order to 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 Please contact at [phone] documented in this encounter Plan of Treatment Not on file documented as of this encounter Visit Diagnoses Not on filedocumented in this encounter Additional Health Concerns Assessment Noted Time PHQ-9 Depression Total Score: 8 08/26/19 24 11:49 AM EST documented as of this encounter Care Teams Office Secretary Relationship Specialty Start Date End Date Rigoberto Us MD [address] [place] [address] PCP - General Internal Medicine 03/30/18 Timothy Broussard RN [address] [place] [address] Assignment ManagerFeather Maker 12/26/23 04/07/[address] 3rd [place] [address] Gastroenterology 09/09/24 documented as of this encounter
--- OUTSIDE RECORDS SUMMARY | 2024-09-30 08:44 | XMS_ITS | Encounter Summary ---
Author Organization [employer] Address 75 [facility] 7t [place] [address] Care Team Providers Care Benefits Consulting Analyst Name Role Phone Rigoberto Us MD Primary Care Provide r Timothy Broussard RN Unavailable [phone] September Unavailable Reason for Visit * Reason Onset Date Comments Lab Orders 08/30/2022 Encounter Details Date Type Department Care Team (Late st Contact Info) Description 08/30/2022 Telephone [facility] MEDICINE 230 [place] [address] Rigoberto Us MD [address] [place] [address] Lab Orders Social History Tobacco Use Types [...] - 08/30/2022 11:19 AM EST Tc from [facility] nurse requesting an order for a lumbar spine for pt documented in this encounter Plan of Treatment Not on file documented as of this encounter Visit Diagnoses Not on filedocumented in this encounter Care Teams Benefits Consulting Analyst Relationship Specialty Start Date End Date Rigoberto Us MD [address] [place] [address] PCP - General Internal Medicine 03/30/18 Timothy Broussard, GIANNA [address] [place] [address] Sulfate Drier Machine OperatorLiving Coach 12/26/23 04/07/[address] [place] [address] 3rd [place] [address] Gastroenterology 09/09/24 documented as of this encounter
--- OUTSIDE RECORDS SUMMARY | 2024-09-30 08:44 | XMS_ITS | Encounter Summary ---
Author Organization [employer] Address 75 [facility] 7t [place] [address] Care Team Providers Care Tier Lift Operator Name Role Phone Rigoberto Us MD Primary Care Provide r September Encounter Details Date Type Department Care Team ([facility] st Contact Info) Description 09/14/2024 Orders Only [facility] 230 [place] [address] Provider, MD [place] Social History Tobacco Use [...] documented as of this encounter Care Teams Tier Lift Operator Relationship Specialty Start Date End Date Rigoberto Us MD [address] [place] [address] PCP - General Internal Medicine 03/30/18September [address] [place] [address] 3rd [place] [address] Gastroenterology 09/09/24 documented as of this encounter
--- OUTSIDE RECORDS SUMMARY | 2024-09-30 08:44 | XMS_ITS | Encounter Summary ---
Author Organization [employer] Address [address] [facility] 7t [place] [address] Care Team Providers Care Railroad Inspector Name Role Phone Rigoberto Us MD Primary Care Provide r September Reason for Visit * Reason Onset Date Comments Medication Question 05/25/2024 Encounter Details Date Type Department Care Team ([facility] Contact Info) Description 05/25/2024 Telephone [facility] MEDICINE [address] [place], [place] [phone] Rigoberto Us MD 230 [place] [address] Medication Question Social History Tobacco Use Types [...] is your housing situation today? I have yamseen dick 07/14/[address] you [...] he's pain don't go away. Callback number [phone] (mexican) documented in this encounter Plan of Treatment Not on file documented as of this encounter Visit Diagnoses Not on filedocumented in this encounter Additional Health Concerns Assessment Noted Time PHQ-9 Depression Total Score: 8 08/26/19 24 11:49 AM EST documented as of this encounter Care Teams Railroad Inspector Relationship Specialty Start Date End Date Rigoberto Us MD [address] [place] [address] PCP - General Internal Medicine 03/30/18September [address] [place] [address] 3rd [place] [address] Gastroenterology 09/09/24 documented as of this encounter
--- OUTSIDE RECORDS SUMMARY | 2024-09-30 08:44 | XMS_ITS | Encounter Summary ---
Author Organization [employer] Address 75 [facility] 7t [place] [address] Care Team Providers Care Professor Of Physics Name Role Phone Rigoberto Us MD Primary Care Provide r Timothy Broussard RN Unavailable [phone] September Unavailable Reason for Visit * Reason Onset Date Comments Reschedule 01/12/2024 Encounter Details Date Type Department Care Team ([facility] st Contact Info) Description 01/12/2024 Telephone [facility] MEDICINE 230 [place] [address] Rigoberto Us MD 230 [place], [place] [phone] Reschedule Social History Tobacco Use Types Packs/Day [...] EDT Tc from sister calling requesting r/s TRAVELING 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 documented in this encounter Plan of Treatment Not on file documented as of this encounter Visit Diagnoses Not on filedocumented in this encounter Additional Health Concerns Assessment Noted Time PHQ-9 Depression Total Score: 8 08/26/19 24 11:49 AM EST documented as of this encounter Care Teams Professor Of Physics Relationship Specialty Start Date End Date Rigoberto Us MD [address] [place] [address] PCP - General Internal Medicine 03/30/18 Timothy Broussard RN [address] [place] [address] Manager Of QualityCollision Estimator 12/26/23 04/07/[address] 3rd [place] [address] Gastroenterology 09/09/24 documented as of this encounter
--- OUTSIDE RECORDS SUMMARY | 2024-09-30 08:45 | XMS_ITS | Clinical Summary ---
Author Organization [employer] Address [address] [place] [address] Care Team Providers Care Resident Care Coordinator Name Role Phone Rigoberto Us [...] THE MORNING 90 tablet 1 4 Active acetaminophen (Tylenol Extra Strength) 500 MG tabletIndications :Osteoporosis with current pathological fracture with delayed healing, unspecified osteoporosis type, subsequent encounter Take 1 tablet (500 mg) by mouth every 8 (eight) hours if needed for mild pain. 90 tablet 3 4 Active ferrous gluconate (Fergon) 324 (38 Fe) MG tablet TAKE 1 TABLET(324 MG) BY MOUTH WITH BREAKFAST 90 tablet 5 Active simvastatin (Zocor) 20 MG tablet TAKE 1 TABLET BY MOUTH EVERY DAY IN THE EVENING 90 tablet 5 Active Active Problems Problem Noted Date Diagnosed Date Iron deficiency anemia 07/26/2024 Pain in both testicles 06/15/2024 Assessment & Plan (09/09/2024 2:00 PM EDT): Scheduled to see Urology 10/04/2024 Assessment & Plan (06/15/2024 12:43 PM EST): Intermittent, urology referral Hospital discharge follow-up 01/08/2024 Assessment & Plan (01/08/2024 12:56 PM EDT): Pt here for a HDF [place] [facility] after he presented for evaluation [...] PM EST): S/P [place] by [place] [facility] [place] For pain control I have prescribed Oxycodone Diagnostic work up for secondary causes of osteoporosis unrevealing He is on Calcium and Vitamin D On Tymlos Evaluated by Endocrinology , last seen 05/18/2024. Assessment & Plan (12/02/2023 10:17 AM EDT): S/P [place] [facility] [place] For pain control I have prescribed Oxycodone Diagnostic work up for secondary causes of osteoporosis unrevealing He is on Calcium and Vitamin D On Tymlos Evaluated by Endocrinology , last seen 08/14/2023 has a follow up in January Assessment & Plan (08/26/2023 11:31 AM EST): S/P [place]ph[place] by IR [place] [facility] [place] For pain control I have prescribed Oxycodone Diagnostic work up for secondary causes of osteoporosis unrevealing He is on Calcium and Vitamin D On Tymlos Evaluated by Endocrinology , last seen 08/14/2023 Assessment & Plan (02/04/2023 11:43 AM EDT): S/P [place] by [place] [facility] [place] For pain control I have prescribed [...] and facet arthritis pt already following w balloon design printer receiving Tymlos (abaloparatide)-states was not receiving lately x issues with pharmacy but to resume now -pt takes med to balloon design printer for med administration -advised to continue w [...] PM EDT): S/P [place]phoplasty by IR [place] [facility] [place] For pain control I have prescribed Oxycodone but he stopped taking it Today he describes his pain at 7/10 when severe 10/10 Diagnostic work up for secondary causes of osteoporosis unrevealing He is on Calcium and Vitamin D Started on Tymlos, followed by Endocrinology Seen at [facility] On 03/19/23: Kyphon Balloon Kyphoplasty with Insertion of HV-R Bone Cement, L1 and L2 Vertebral Bodies: with 80% relief. Last seen at [facility] 10/24/2023 Scheduled for fluoroscopy guided diagnostic left L3-L4 DR L5 medial branch blocks with local anesthetic. Plan: Continue Flexeril and MS Contin 15 mg po BID risk discussed particularly around somnolence , sedation and counseled about fall prevention Assessment & Plan (12/02/2023 10:20 AM EDT): S/P [place]ph[place] by IR [place] [facility] [place] For pain control I have prescribed Oxycodone but he stopped taking it Today he describes his pain at 7/10 when severe 10/10 Diagnostic work up for secondary causes of osteoporosis unrevealing He is on Calcium and Vitamin D Started on Tymlos, followed by Endocrinology Seen at [facility] On 03/19/23: Kyphon Balloon Kyphoplasty with Insertion of HV-R Bone Cement, L1 and L2 Vertebral Bodies: with 80% relief. Last seen at [facility] 10/24/2023 Scheduled for fluoroscopy guided diagnostic left L3-L4 DR L5 medial branch blocks with local anesthetic. Plan: Continue Flexeril Start MS Contin 15 mg po BID risk discussed particularly around somnolence , sedation and counseled about fall prevention Assessment & Plan (04/22/2023 11:28 AM EDT): S/P [place]phoplasty [place] IR [place] [facility] [place] For pain control I have prescribed Oxycodone but he stopped taking it Diagnostic work up for secondary causes of osteoporosis unrevealing He is on Calcium and Vitamin D Started on Tymlos, followed by Endocrinology Seen [facility] 03/19/23: Kyphon Balloon Kyphoplasty with Insertion of HV-R Bone Cement, L1 and L2 Vertebral Bodies: with 80% relief. Assessment & Plan (02/04/2023 11:41 AM EDT): S/P [place] IR [place] [facility] [place] For pain control I have prescribed [...] Patient is undergoing kyphoplasty by IR [place] [facility] [place] 09/[place]/2022 For pain control I have [...] AM EDT): S/P kyphoplasty by IR [place] [facility] [place] For pain control I have prescribed [...] for a f/u He was seen by solar energy specialist at [facility] [place] He tells me he was given injections [...] BID, He was advised to f/u with [employer] Pt reports he is still drinking on weekends 3 month f/u Atrial fibrillation 05/29/2022 Assessment & Plan (09/09/2024 2:05 PM EDT): He is on Eliquis 5mg BID Last seen by Dr Frnacis 07/01/2023 Assessment & Plan (08/26/2023 11:39 AM EST): He is on Eliquis 5mg BID Last seen by Dr Francis 12/26/2022 Assessment & Plan (02/04/2023 12:48 PM EDT): He is on Eliquis 5mg BID Last seen by Dr Francis 12/26/2022 Assessment & Plan (06/04/2022 9:52 AM EST): Patient here for a HDF He presented again [place] [facility] [place] [place] with c/o increased [...] EDT): Under the care of Dasia Soni [facility] Assessment & Plan (12/02/2023 11:34 AM EDT): Under the care of Dasia Soni [facility] On Seroquel 300 mg po qhs Bupropion and Trazodone 100 mg po qhs per his report Assessment & Plan (04/22/2023 11:41 AM EDT): Under the care of Dasia Soni [facility] On Seroquel 300 mg po qhs Bupropion and Trazodone 100 mg po qhs per his report Assessment & Plan (06/04/2022 9:09 AM EST): Under the care of Dasia Soni [facility] On Seroquel 300 mg po qhs Bupropion [...] EDT): Under the care of Dasia Soni [facility] Serandrew nd Trazodone were discontinued in the Hospital due to prolongued Qtc He is now on Sertraline 25 mg po daily Assessment & Plan (01/08/2024 1:41 PM EDT): Under the care of Dasia Soni [facility] Seroanca nd Trazodone were discontinued in the Hospital due to prolongued Qtc He is now on Sertraline 25 mg po daily Assessment & Plan (12/02/2023 11:36 AM EDT): Under the care of Dasia newell [facility] On Seroquel 300 mg po qhs Bupropion and Trazodone 100 mg po qhs per his report Assessment & Plan (04/22/2023 11:41 AM EDT): Under the care of Dasia newell [facility] On Seroquel 300 mg po qhs Bupropion and Trazodone 100 mg po qhs per his report Assessment & Plan (06/04/2022 9:09 AM EST): Under the care of Dasia Soni [facility] Tubular adenoma of colon 03/10/2018 Assessment & [...] going into A.fib Pt was cleared by [employer] [facility] 06/01 and is awaiting GI appointment for [...] A.fib Pt has now been cleared by [employer] 06/01 and is awaiting GI appointment for [...] of Trelegy and Ventolin Dr Pisano his chemist pharmaceutical mentioned in a previous note that patient [...] of Trelegy and Ventolin Dr Pisano his chemist pharmaceutical mentioned in a previous note that patient [...] scarring related to pneumonia Dr Pisano his chemist pharmaceutical mentioned in a previous note that patient [...] scarring related to pneumonia Dr Pisano his chemist pharmaceutical mentioned in a previous note that patient [...] Pt was seen by Dr Pisano his chemist pharmaceutical 08/2022 he mentioned in his note that [...] Pt was seen by Dr Pisano his chemist pharmaceutical 08/2022 he mentioned in his note that [...] Pt was seen by Dr Pisano his chemist pharmaceutical 08/2022 he mentioned in his note that [...] Pt was seen by Dr Pisano his chemist pharmaceutical 05/21/2022 who recommended a repeat Chest CT [...] Department Care Team Description 09/14/2024 Orders Only [place] [address] [facility] [place] [address] ProviderElmira MD 09/13/2024 Telephone [facility] Irina [facility] [address] Rigoberto Us MD Appointment Request 09/09/2024 2:00 PM EDT Office Visit [facility] [place] [address] Rigoberto Us MD Microscopic hematuria (Primary Dx); Pain in both testicles; Pulmonary nodule; Centrilobular emphysema (CMS/HCC); Tubular adenoma of colon; Non-ischemic cardiomyopathy (CMS/HCC); Primary hypertension; Atrial fibrillation, unspecified type (CMS/HCC); 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); Ascending aorta dilatation (CMS/HCC) 09/09/2024 Travel 09/03/2024 Population Health Risk Score [facility] ([facility] Department [address] [place] [address] [phone] Provider, Population Health Generic 09/01/2024 Telephone [facility] [place] [address] Rigoberto Us MD Chart Prep 08/22/2024 Refill [facility] [place] [address] Windy Paula MD 08/06/2024 Telephone [facility] [place] [address] Rigoberto Us MD Results 08/04/2024 Refill [facility] [place] [address] Rigoberto Us MD 07/21/2024 10:30 AM EST Office Visit [facility] [place] [address] Milena Lopez FNP Iron deficiency anemia, unspecified iron deficiency anemia type (Primary Dx); Compression fracture of lumbar vertebra, unspecified lumbar vertebral level, sequela; Microscopic hematuria 07/21/2024 Travel 07/14/2024 Telephone [facility] [address] [place] [phone] Rigoberto Us MD August Recall from Last 3 Months Immunizations Name Administration [...] Routine 07/21/2024 12:09 PM EST Microscopic hematuria HM COLONOSCOPY Routine 04/23/2024 LIPID PANEL, STANDARD [...] EST Narrative 07/31/2024 9:26 AM EST ? [facility] ?[address] ?[place] [address] ? Ultrasound Report ? Signed ? Patient: Avery Ware ?MR#: ?? [id number] ? : 1955 ?Acct:[id number] ? Age/Sex: 69 / M ?ADM Date: 07/30/24 ? Loc: HO.US ? Attending Dr: Milena Lopez PRINT CUTTER ? Ordering Physician: Milena Lopez ?? Date of Service: 07/30/24 ?? Procedure(s): US renal BI ?? Accession Number(s): [id number] ? cc: Milena Lopez PRINT CUTTER ? CLINICAL HISTORY: chrronic left sided pain [...] signed by Fredy Serrano MD in OV> ?07/31/24924 ? DD/ 3 ? TD/TT: 07/31/24923 ? Pododermatologist: ? Procedure Note Desiree Jimenez - 07/31/[address] [address] Ultrasound Report Signed Patient: Nury Ware#: [id number] : 4Acct:[id number] Age/Sex: 69 / MADM Date: 07/30/24 Loc: HO.US Attending Dr: Milena SAHU Ordering Physician: Milena Lopez Date of Service: 07/30/24 Procedure(s): US renal BI Accession Number(s): [id number] cc: Milena Lopez CLINICAL HISTORY: chrronic left [...] in OV> 07/31/24924 DD/ 3 TD/TT: 07/31/24923 Pododermatologist: us Milena JOHNSONP IMG US PROCEDURES Edited Resul t - Final * XR Lumbar Spine Complete 4+ Views (07/21/2024 12:13 PM EST) Anatomical Region Laterality Modality Spine, L-spine Radiographic Cristiana ging 07/21/2024 12:1 3 PM EST Narrative 07/21/2024 12:55 PM EST ?[facility] ?[address] ?[place] [address] ?XRay Report ? Signed ? Patient: Bosch Soni,Avery ?MR#: ?? [id number] ? : 1955 ?Acct:[id number] ? Age/Sex: 69 / M ?ADM Date: 07/21/24 ? Loc: HO.HHCX ? Attending Dr: Milena SAHU ? Ordering Physician: Milena Lopez ?? Date of Service: 07/21/24 ?? Procedure(s): XR lumbar spine 4V min ?? Accession Number(s): [id number] ? cc: Milena Lopez ? . ? [...] DD/ 1213 ? TD/TT: 07/21/24 1236 ? Pododermatologist: ? Procedure Note Donotuseinterpreter, Image - 07/21/2024 [facility] [address] [place] [address] XRay Report Signed Patient: Avery WareMR#: [id number] : 1955cct:[id number] Age/Sex: 69 / MADM Date: 07/21/24 Loc: HO.HHCX Attending Dr: Milena SAHU Ordering Physician: Milena Lopez Date of Service: 07/21/24 Procedure(s): XR lumbar spine 4V min Accession Number(s): [id number] cc: Milena Lopez . EXAMINATION: X-ray lumbar [...] 07/21/24 1252 DD/ 1213 TD/TT: 07/21/24 1236 Pododermatologist: Milena SAHU IMG XR PROCEDURES Edited Resul [...] Date Urine 07/21/2024 12:0 9 PM EST Milenarafael Lopez PRINT CUTTER POINT OF CARE TEST ENTER/EDIT ORDERABLES Final Result * Colonoscopy (04/23/2024) Pathologist [facility] Colonoscopy Normal Normal Historical Provider MD HEALTH MAINTENANCE Final Result * LIPID PANEL, STANDARD (03/23/2021 9:05 AM EDT) Pathologist [facility] Chol/HDLC Ratio 2.9 <5.0 (calc) [facility] Cholesterol, Total 154 <200 mg/dL [facility] HDL Cholesterol 54 > OR = 40 mg/dL [facility] LDL Cholesterol 83 mg/dL (calc) [facility] Comment: Reference range: <100 ?? [...] ?? Rodolfo MURO et al. OLIVIER. 2013;310(19): 1653-5019 ?? (http://education.The [employer].com/faq/FGO304) Non-HDL Cholesterol 100 <130 mg/dL (calc) [facility] Comment: For patients with diabetes plus 1 major ASCVD risk ?? factor, treating to a non-HDL-C goal of <100 mg/dL ?? (LDL-C of <70 mg/dL) is considered a therapeutic ?? option. Triglycerides 78 <150 mg/dL [facility] 03/23/2021 9:05 AM EDT us Rigoberto Ramirez MD LAB BLOOD ORDERABLES Final Result [facility] [address] from Last 3 Months or Most Recently Relevant to Health Maintenance Insurance [facility] [address] STANDARD MEDICARE Care Teams Resident Care Coordinator Relationship Specialty Start Date End Date Rigoberto Us MD [address] [place] [address] [place] [address] PCP - General Internal Medicine 03/30/18September [address] [place] [address] [address] [place] [address] Gastroenterology 09/09/24
== END 2024-09-30 08:32 | disposition home or self-care (01) ==
LOC: HO.CT 08:31
PROVIDERS: PCP Internal Medicine; Visit Provider Hospitalist
DX: R91.1 Solitary pulmonary nodule (principal)
CPT/HCPCS: 71250

== ENCOUNTER → 2024-09-30 08:33 | Outpatient (BNV) | payer MEDICARE, MEDICAID, SELFPAY | PROVIDERS: PCP Internal Medicine; Visit Provider Radiology Diagnostic Radiology | DX: J43.2 Centrilobular emphysema (principal); I77.810 Thoracic aortic ectasia | CPT/HCPCS: 71250 ==

== ENCOUNTER 2024-10-04 10:51 | Outpatient (AMB) | payer MEDICARE, MEDICAID, SELFPAY ==
--- NOTE | 2024-10-04 10:54 | MHC.OFFVIS ---
Intake Visit Reasons: testicular pain Intake Note: Patient presents today for a follow-up/Testicular pain Urology Meds- None Allergies to Antibiotic- No Known Allergies Blood Thinner- Eliquis PVR:31ml Healthcare Administrative Assistant Required: Yes Healthcare Administrative Assistant Language: Jigger Artisan Name: [id number] Information Interpreted: non-clinical & clinical Accompanied by: Other Relationship Allergies No Known Allergies [No Known Allergies*] Allergy (Verified 10/04/24 11:00) HPI Comments Details: 10/04/24--Aveyr is a 69-year-old male who has been seen in the past for microscopic hematuria. The patient was seen last in the office 02/03/2023. The patient is a 69-year-old male presenting with testicular pain and erectile dysfunction concerns. The testicular pain is noted primarily upon palpation and has not been specifically timed or triggered by consistent factors beyond touch. Review of his chart he had a renal ultrasound done in July which notes kidney changes for possible right renal calculi with calyceal diverticulum. He has a history of being on Eliquis, an anticoagulant. Check testosterone levels and PSA screening, CT urogram further evaluate microscopic hematuria and renal ultrasound findings of calyceal diverticulum with possible calcification with renal cysts. On examination no testicular swelling we will check scrotal ultrasound for patient's symptoms of testicular pain. Results: PSA--12/26/2022--0.50 ng/mL 02/03/2023--Avery is a 67-year-old male who presents today to the office for a Cystoscopy procedure. The patient is Cypriot speaking gentleman. His sister was present during the visit who interprets for him. He was last seen by me on 11/08/2022. I reviewed the PSA results from 01/15/2023 revealed PSA-0.50. He is refusing to have the Cystoscopy. He did not have renal US but I have reviewed again the CT imaging from Plan: Pt declined office cystoscopy, states he is afraid of feeling pain Outpatient Cystoscopy, possible bladder biopsy. Patient is on Eliquis, need medical clearance regarding discontinuing of Eliquis 3 days prior to the procedure. 11/08/2022?Avery is a 67-year-old male who presents to the office as a new patient evaluation for microscopic hematuria. The patient is Cypriot speaking gentleman. His sister was present during the visit who interprets for him. They declined certified Cypriot speaking assessment director. I reviewed the chart and he has several urinalysis results that show presence of blood in the urine. States that he has been evaluated in past for microscopic blood in the urine.? He states he saw a urologist in the past who did workup including cystoscopy and was told that everything is normal. The patient denies observing gross hematuria. Denies dysuria. I have discussed microscopic hematuria may be due to but not limited to kidney stones, BPH, cystitis, urinary tract malignancy. I have discussed work up to include evaluation of the urinary tract which may include imaging, further urine testing, and cystoscopy. Evaluation today-- Blood: 80 Julio/uL, leukocytes: negative. Bladder scan PVR: 29 mL. CTAP results reviewed without IV contrast--07/05/22--Urinary tract-- no stones visualized. Plan: PSA blood work was ordered. Renal US was ordered. Cystoscopy procedure discussed to be scheduled. Follow-up in 6-8 weeks. [facility] Medical History Compression fracture of lumbar vertebra Compression fracture of T9 vertebra Right clavicle fracture Dysphagia Compression fracture of body of thoracic vertebra Hematemesis with nausea Acute exacerbation of emphysema Chronic hypoxemic respiratory failure Nicotine dependence, cigarettes, uncomplicated Compression fracture of T7 vertebra Cervical spondylosis Bilateral tinnitus Ascending aorta dilatation Opacity of lung on imaging study Generalized anxiety disorder Edentulous Bipolar 1 disorder Emphysema lung BPH (benign prostatic hyperplasia) Osteoporosis Atrial fibrillation with rapid ventricular response History of alcohol abuse Nonischemic cardiomyopathy Tubular adenoma of colon Pulmonary nodules COPD (chronic obstructive pulmonary disease) Hyperlipidemia COPD (chronic obstructive pulmonary disease) GERD (gastroesophageal reflux disease) Depression Hypertension Surgical History Hx of cystoscopy Hx of kyphoplasty History of surgery on left wrist (~03/21/10) Hx of endoscopy Hx of colonoscopy (~02/13/06) Hx of cataract surgery (~07/02/10) History of appendectomy History of gastric surgery Family History Mother Renal failure Father History of depression Brother Colon cancer Social History Household Members: Significant Other Housing: House Are you a primary director medicare sales to a significant other at home: No Do you presently have visiting nurse or other home services: No Alcohol intake: never Patient Tobacco Use Status: Former Tobacco user Tobacco use type: Cigarette Cigarette Packs Per Day: 0.5 Years Smoked: 55 e-Cigarette/Vaping Use: Former Use Second Hand Smoke Exposure: No Advance Directives Date on File: 09/02/22 service: No Current occupational status: unemployed and disabled 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 Review of Systems Const All systems reviewed & are unremarkable except as noted in HPI and below Reports no additional complaints Eyes Reports no additional complaints ENT Reports no additional complaints Card Reports no additional complaints Resp Reports no additional complaints GI Reports no additional complaints Reports as per HPI Musc Reports no additional complaints Skin/Breast Reports system reviewed and no additional complaints, except as documented Neuro Reports no additional complaints Psych Reports no additional complaints Endo Reports no additional complaints Christian/Lymph Reports no additional complaints Aller/Immun Reports no additional complaints Results Reviewed Results Reviewed: Date of Service: 07/30/24 CLINICAL HISTORY: chrronic left sided pain with hematuria US Renal Comparison: None Findings: Right kidney normal size and echotexture, 9.4 cm length. Left kidney normal size and echotexture, 11.7 cm length. There are bilateral Bosniak 1 cysts, largest on the left measuring 1.4 x 1.2 x 0.1 cm. There is a questionable right renal calyceal diverticulum with calculus. IMPRESSION: 1. 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 No acute findings. Date of Service: 07/05/22 EXAMINATION: CT ABDOMEN AND PELVIS WITHOUT CONTRAST? CLINICAL INFORMATION: Abdominal pain, rule out complicated hernia.? COMPARISON: CT scan of the abdomen and pelvis dated 05/26/2022.? TECHNIQUE: Multidetector volumetric imaging was performed from the superior aspect of the liver through the pubic symphysis. Sagittal and coronal reformatted images were obtained on the technologist's workstation. Lack of intravenous and oral contrast limits visceral evaluation. This CT examination was performed using dose optimization techniques as appropriate, variously including the following: *Automated exposure control *Adjustment of mA and/or kV according to patient size (this includes techniques or standardized protocols for targeted exams where dose is matched to indication/reason for exam; i.e. extremities or head) *Use of iterative reconstruction technique DLP: 579 mGy-cm FINDINGS: LUNG BASES: The visualized lung bases are unremarkable.? LIVER, GALLBLADDER, AND BILIARY TREE: Unremarkable. PANCREAS: Unremarkable.? SPLEEN: Unremarkable.? ADRENAL GLANDS: Unremarkable.? KIDNEYS AND URETERS: Small low-attenuation foci are seen in the kidneys bilaterally. No nephrolithiasis or hydronephrosis.? BLADDER: Unremarkable.? GASTROINTESTINAL TRACT: The stomach and small bowel are unremarkable. The appendix is not not visualized. No right lower quadrant abnormality. The colon and rectum are unremarkable. ABDOMINAL WALL: No significant hernia is appreciated.? LYMPH NODES: No lymphadenopathy. VASCULAR: Unremarkable. PELVIC VISCERA: Unremarkable.? OSSEOUS STRUCTURES: There is generalized osteopenia. Moderate degenerative disc disease is seen at L4-5 and L5-S1. There is no acute fracture.? IMPRESSION: 1.? No acute intra-abdominal/pelvic abnormality to explain the patient's pain. No evidence for hernia. 2.? Small low-attenuation foci in the kidneys bilaterally are too small adequately characterize, but demonstrate benign features and likely represent cysts. These were better seen on the previous contrast-enhanced study and do not require follow-up at this time. 3.? L4-5 and L5-S1 moderate degenerative disc disease. Assessment & Plan Assessment & Plan (1) Microscopic hematuria: Code(s): R31.29 - Other microscopic hematuria Category: Medical (2) Renal cyst: Code(s): N28.1 - Cyst of kidney, acquired Category: Medical (3) Calyceal diverticulum: Code(s): N28.89 - Other specified disorders of kidney and ureter Category: Medical (4) Testicular pain: Code(s): N50.819 - Testicular pain, unspecified Category: Medical (5) Screening PSA (prostate specific antigen): Code(s): Z12.5 - Encounter for screening for malignant neoplasm of prostate Category: Medical (6) Erectile dysfunction: Code(s): N52.9 - Male erectile dysfunction, unspecified Category: Medical Plan Check testosterone levels and PSA screening, CT urogram further evaluate microscopic hematuria and renal ultrasound findings of calyceal diverticulum with possible calcification with renal cysts. On examination no testicular swelling we will check scrotal ultrasound for patient's symptoms of testicular pain. Follow-up with nurse practitioner to review results with the patient. Orders: Orders CT urogram Today N28.1 - Cyst of kidney, acquired, N28.89 - Other specified disorders of kidney and ureter, R31.29 - Other microscopic hematuria Testosterone, Free/Total Today N52.9 - Male erectile dysfunction, unspecified US scrotum Today N50.819 - Testicular pain, unspecified PSA,Total (Free>4and<10) Today Z12.5 - Encounter for screening for malignant neoplasm of prostate Coding Level of Care Code Est Pt Level 4 (50627) Diagnoses Microscopic hematuria R31.29 Renal cyst N28.1 Calyceal diverticulum N28.89 Testicular pain N50.819 Screening PSA (prostate specific antigen) Z12.5 Erectile dysfunction N52.9
--- OUTSIDE RECORDS SUMMARY | 2024-10-04 12:44 | XMS_ITS | Encounter Summary ---
Author Organization [email or web address] Address [address] [facility] 7t [place] [address] Care Team Providers Care Senior Packaging Engineer Name Role Phone Rigoberto Us MD Primary Care Provide r Timothy Broussard RN Unavailable [phone] September Unavailable Reason for Visit * Reason Onset Date Comments Reschedule 01/12/2024 Encounter Details Date Type Department Care Team ([facility] st Contact Info) Description 01/12/2024 Telephone [facility] MEDICINE [address] [place] [address] Rigoberto Us MD [address] [place], [place] [phone] Reschedule Social History Tobacco Use Types Packs/Day [...] EDT Tc from sister calling requesting r/s BODY TRIMMER UPHOLSTERER appt, she will bring him to the appt however this day shewill be busy. documented in this encounter Plan of Treatment Not on file documented as of this encounter Visit Diagnoses Not on filedocumented in this encounter Additional Health Concerns Assessment Noted Time PHQ-9 Depression Total Score: 8 08/26/19 24 11:49 AM EST documented as of this encounter Care Teams Senior Packaging Engineer Relationship Specialty Start Date End Date Rigoberto Us MD [address] [place] [address] PCP - General Internal Medicine 03/30/18 Timothy Broussard RN [address] [place] [id number] Test Equipment MechanicCan Reconditioner 12/26/23 04/07/[address] 3rd [place] [address] Gastroenterology 09/09/24 documented as of this encounter
--- OUTSIDE RECORDS SUMMARY | 2024-10-04 12:44 | XMS_ITS | Encounter Summary ---
Author Organization [employer] Address [address] [facility] 7t [place] [address] Care Team Providers Care Science Consultant Name Role Phone Rigoberto Us MD Primary Care Provide r Timothy Broussard RN Unavailable [phone] September Unavailable Encounter Details Date Type Department Care Team (Late st Contact Info) Description 10/04/2022 Orders Only [facility] MEDICINE [address] [place] [address] Demi Garcia, RN [address] [place] [address] Social History Tobacco Use Types Packs/Day Years [...] on filedocumented in this encounter Care Teams Science Consultant Relationship Specialty Start Date End Date Rigoberto Us MD [address] [place] [address] PCP - General Internal Medicine 03/30/18 Timothy Broussard, GIANNA [address] [place] [address] Toe LasterKiln Setter 12/26/23 04/07/24 Kathy September [address] [place] [address] 3rd [place] [address] Gastroenterology 09/09/24 documented as of this encounter
--- OUTSIDE RECORDS SUMMARY | 2024-10-04 12:44 | XMS_ITS | Encounter Summary ---
Author Organization [employer] Address [address] [facility] 7t [place] [address] Care Team Providers Care Spares Scheduler Name Role Phone Rigoberto Us MD Primary Care Provide r Timothy Broussard RN Unavailable [phone] September Unavailable Reason for Visit * Reason Onset Date Comments Med Refill 02/16/2024 Encounter Details Date Type Department Care Team (Late st Contact Info) Description 02/16/2024 Telephone [facility] MEDICINE [address] [place] [address] Rigoberto Us MD [address] [place], [place] [phone] Med Refill Social History Tobacco Use Types [...] 12 hr tablet To be sent to: [id number] [place], [place] - [address] [place] [address] documented in this encounter Plan of Treatment Not on file documented as of this encounter Visit Diagnoses Not on filedocumented in this encounter Additional Health Concerns Assessment Noted Time PHQ-9 Depression Total Score: 8 08/26/19 24 11:49 AM EST documented as of this encounter Care Teams Spares Scheduler Relationship Specialty Start Date End Date Rigoberto Us MD [address] [place] [address] PCP - General Internal Medicine 03/30/18 Timothy Broussard RN [address] [place] [address] Front End DriverVegetable Picker 12/26/23 04/07/24 Kathy September [address] [place] [address] Drive 3rd [place] [address] Gastroenterology 09/09/24 documented as of this encounter
--- OUTSIDE RECORDS SUMMARY | 2024-10-04 12:44 | XMS_ITS | Encounter Summary ---
Author Organization [email or web address] Address [address] [facility] 7t [place] [address] Care Team Providers Care Certified Bench Jeweler Technician Name Role Phone Rigoberto Us MD Primary Care Provide r September Encounter Details Date Type Department Care Team ([facility] st Contact Info) Description 09/14/2024 Orders Only [facility] [address] [place] [address] Provider, MD [place] Social History Tobacco Use [...] Procedure Name Priority Date/Time Associated Diagnosis Comments CT CHEST WO CONTRAST Routine 09/30/2024 8:37 AM EDT PET/CT BONE SKULL BASE TO MID THIGH Routine 08/15/2024 11:35 AM EST documented in this encounter Results * CT Chest w/o Contrast (09/30/2024 8:37 AM EDT) Anatomical Region Laterality Modality Body, Chest Computed Tomogra phy 09/30/2024 8:37 AM EDT Narrative 09/30/2024 9:36 AM EDT ? [facility] ?[address] ?[place] [address] ? CT Scan Report ? Signed ? Patient: Hiro Soni,Avery ?MR#: ?? [id number] ? : 1955 ?Acct:[id number] ? Age/Sex: 69 / M ?ADM Date: 09/30/24 ? Loc: HO.CT ? Attending Dr: Layton Sterling MD ? Ordering Physician: Layton Sterling MD ?? Date of Service: 09/30/24 ?? Procedure(s): CT chest wo IV con ?? Accession Number(s): [id number] ? cc: Rigoberto Madrigal MD; Layton Sterling MD ? Report Number: ?? [id number]: Total DLP = ??146.00 mGy-cm ?? EXAMINATION: ?? CT CHEST WITHOUT CONTRAST ? CLINICAL INFORMATION: ?? Solitary pulmonary nodule. ? COMPARISON: ?? January 08, 2024 demonstrated scattered less than 2 mm pulmonary nodules. ? TECHNIQUE: ?? Multidetector volumetric CT imaging of the chest was done. Axial MIP ?? volume rendering provided. Sagittal and coronal reformatted images were ?? obtained. ? This CT examination was performed using dose optimization techniques as ?? appropriate, variously including the following: ?? *Automated exposure control ?? *Adjustment of mA and/or kV according to patient size (this includes ?? techniques or standardized protocols for targeted exams where dose is ?? matched to indication/reason for exam; i.e. extremities or head) ?? *Use of iterative reconstruction technique. ?? DLP: 146 mGy centimeter. ? FINDINGS: ? BURGLAR ALARM ASSEMBLER: Volume loss, right lung. Cardiomediastinal structures towards ?? the right hemithorax likely patient's positioning. For level ?? kyphoplasty/vertebroplasty in the thoracolumbar spine. Patient's large ?? body habitus. ? LUNGS: Centrilobular and paraseptal emphysematous changes involving ?? mostly the upper and to a lesser extent lower lung lobes. ?? There is asymmetric low lung volume on the right side. ?? There is apical lung scarring involving mostly the right upper lobe ?? with the air cells. Calcifications. ?? Punctate 1 mm calcified pulmonary nodules in the periphery of the right ?? lung. There is a cluster of 3 mm groundglass nodule in the right lower ?? lung lobe. ?? No bronchiectasis. ?? No honeycombing. ?? Respiratory airways patent. ? MEDIASTINUM: Nonspecific mildly prominent lymph nodes, the most ?? conspicuous in the right anterior paratracheal measures 1.2 cm. ? The ascending thoracic aorta measures 4.2 cm in maximum diameter. ?? Calcified plaques in the thoracic aorta wall and the origin of the left ?? subclavian artery. Calcified plaques in the origin of the right CCA. No ?? gross pericardial effusion. The heart appears small. ? CORONARY ARTERY CALCIFICATION: Calcified plaques mostly at the LAD. ? PLEURA: No pleural effusion. No pneumothorax. ? AXILLA: No lymphadenopathy. ? UPPER ABDOMEN: Small hilar hernia. Contracted gallbladder. Lipo ?? substitution throughout the pancreatic parenchyma. ?? Kyphoplasty/vertebroplasty procedure at T7, T9 and L1 vertebral bodies. ?? No acute fracture or gross listhesis. S-shaped curvature of the ?? thoracolumbar spine. ?? No lytic or blastic lesions.. ? OSSEOUS STRUCTURES: Kyphoplasty/vertebroplasty procedure at T7, T9 and ?? L1 vertebral bodies. No acute fracture or gross listhesis. S-shaped ?? curvature of the thoracolumbar spine. ?? No lytic or blastic lesions.. ? CT/CT chest wo IV con ?? IMPRESSION: ?? Overall less pronounced/decreased morphology of the previously ?? described pulmonary nodules. Overall improved. ? Centrilobular and paraseptal emphysematous changes with the volume loss ?? and retraction of the right lung. ? 4.2 cm ectasia, ascending thoracic aorta. ? Fleischner guidelines were followed. ? Electronically signed by: ??Samuel Andre MD ??09/30/2024 09:33 AM ?? EDT RP ? Dictated By: ?Sameul Caldwell MD ? Signed By: ?<Electronically signed by Samuel Garcia MD in OV> ? 09/30/24 0933 ? DD/ 0837 ? TD/TT: 09/30/24 0845 ? Button Spindler: ? Procedure Note Ednicholetigrenellie, Image - 09/30/[address] [place] [id number] [address] Scan Report Signed Patient: Avery WareMR#: [id number] : 4Acct:[id number] Age/Sex: 69 / MADM Date: 09/30/24 Loc: HO.CT Attending Dr: Layton Sterling MD Ordering Physician: Layton Sterling MD Date of Service: 09/30/24 Procedure(s): CT chest wo IV con Accession Number(s): [id number] cc: Rigoberto Madrigal MD; Layton Sterling MD Report Number: [id number]: Total DLP = 146.00 mGy-cm EXAMINATION: CT CHEST WITHOUT CONTRAST CLINICAL INFORMATION: Solitary pulmonary nodule. COMPARISON: January 08, 2024 demonstrated scattered less than 2 mm pulmonary nodules. TECHNIQUE: Multidetector volumetric CT imaging of the chest was done. Axial MIP volume rendering provided. Sagittal and coronal reformatted images were obtained. This CT examination was performed using dose optimization techniques as appropriate, variously including the following: *Automated exposure control *Adjustment of mA and/or kV according to patient size (this includes techniques or standardized protocols for targeted exams where dose is matched to indication/reason for exam; i.e. extremities or head) *Use of iterative reconstruction technique. DLP: 146 mGy centimeter. FINDINGS: BURGLAR ALARM ASSEMBLER: Volume loss, right lung. Cardiomediastinal structures towards the right hemithorax likely patient's positioning. For level kyphoplasty/vertebroplasty in the thoracolumbar spine. Patient's large body habitus. LUNGS: Centrilobular and paraseptal emphysematous changes involving mostly the upper and to a lesser extent lower lung lobes. There is asymmetric low lung volume on the right side. There is apical lung scarring involving mostly the right upper lobe with the air cells. Calcifications. Punctate 1 mm calcified pulmonary nodules in the periphery of the right lung. There is a cluster of 3 mm groundglass nodule in the right lower lung lobe. No bronchiectasis. No honeycombing. Respiratory airways patent. MEDIASTINUM: Nonspecific mildly prominent lymph nodes, the most conspicuous in the right anterior paratracheal measures 1.2 cm. The ascending thoracic aorta measures 4.2 cm in maximum diameter. Calcified plaques in the thoracic aorta wall and the origin of the left subclavian artery. Calcified plaques in the origin of the right CCA. No gross pericardial effusion. The heart appears small. CORONARY ARTERY CALCIFICATION: Calcified plaques mostly at the LAD. PLEURA: No pleural effusion. No pneumothorax. AXILLA: No lymphadenopathy. UPPER ABDOMEN: Small hilar hernia. Contracted gallbladder. Lipo substitution throughout the pancreatic parenchyma. Kyphoplasty/vertebroplasty procedure at T7, T9 and L1 vertebral bodies. No acute fracture or gross listhesis. S-shaped curvature of the thoracolumbar spine. No lytic or blastic lesions.. OSSEOUS STRUCTURES: Kyphoplasty/vertebroplasty procedure at T7, T9 and L1 vertebral bodies. No acute fracture or gross listhesis. S-shaped curvature of the thoracolumbar spine. No lytic or blastic lesions.. CT/CT chest wo IV con IMPRESSION: Overall less pronounced/decreased morphology of the previously described pulmonary nodules. Overall improved. Centrilobular and paraseptal emphysematous changes with the volume loss and retraction of the right lung. 4.2 cm ectasia, ascending thoracic aorta. Fleischner guidelines were followed. Electronically signed by: Samuel Andre MD 09/30/2024 09:33 AM EDT RP Dictated By: Samuel Caldwell MD Signed By: <Electronically signed by Samuel Garcai MDin OV> 09/30/2433 DD/ TD/TT: 09/30/2445 Button Spindler: [facility] External Provider IMG CT PROCEDURES Final Result * PET/CT Bone Skull Base to Mid Thigh (08/15/2024 11:35 AM EST) Anatomical Region Laterality Modality Body Computed Tomogra phy Historical Provider IMG CT PROCEDURES Final R esult documented in this encounter Visit Diagnoses Not on filedocumented in this encounter Additional Health Concerns Assessment Noted Time PHQ-9 Depression Total Score: 8 08/26/19 24 11:49 AM EST documented as of this encounter Care Teams Certified Bench Jeweler Technician Relationship Specialty Start Date End Date Rigoberto Us MD [address] [place] [address] PCP - General Internal Medicine 03/30/18September [address] [place] [address] 3rd [place] [address] Gastroenterology 09/09/24 documented as of this encounter
--- OUTSIDE RECORDS SUMMARY | 2024-10-04 12:44 | XMS_ITS | Encounter Summary ---
Author Organization [employer] Address 75 [facility] 7t [place] [address] Care Team Providers Care Rehabilitation Teacher Name Role Phone Rigoberto Us MD Primary Care Provide r Timothy Broussard RN Unavailable [phone] September Unavailable Encounter Details Date Type Department Care Team (Latest Contact Info) Description 10/12/[address] [facility] CONVERSIONS Dental, Provider, DDS Social History [...] on filedocumented in this encounter Care Teams Rehabilitation Teacher Relationship Specialty Start Date End Date Rigoberto Us MD [address] [place] [address] PCP - General Internal Medicine 03/30/18 Timothy Broussard, RN [address] [place] [address] Grocery Store ManagerGalvanizer 12/26/23 04/07/24September [address] 3rd [place] [address] Gastroenterology 09/09/24 documented as of this encounter
--- OUTSIDE RECORDS SUMMARY | 2024-10-04 12:44 | XMS_ITS | Encounter Summary ---
Author Organization [employer] Address [address] [facility] [address] 7t [place] [address] Care Team Providers Care Payroll And Benefits Manager Name Role Phone Rigoberto Us MD Primary Care Provide r Timothy Broussard RN Unavailable [phone] September Unavailable Encounter Details Date Type Department Care Team (Late st Contact Info) Description 10/17/2023 Orders Only [facility] MEDICINE [address] [place] [address] Provider, MD [place] Social History Tobacco Use [...] documented as of this encounter Care Teams Payroll And Benefits Manager Relationship Specialty Start Date End Date Rigoberto Us MD [address] [place] [address] PCP - General Internal Medicine 03/30/18 Timothy Broussard RN [address] [place] [address] Skiver Box ToeParalegal 12/26/23 04/07/24 KathySeptember 11 [facility] 3rd [place] [address] Gastroenterology 09/09/24 documented as of this encounter
--- OUTSIDE RECORDS SUMMARY | 2024-10-04 12:44 | XMS_ITS | Encounter Summary ---
Author Organization [employer] Address [address] [place] [address] 7t [place] [address] Care Team Providers Care School Laboratory Technician Name Role Phone Rigoberto Us MD Primary Care Provide r Timothy Broussard RN Unavailable [phone] September Unavailable Encounter Details Date Type Department Care Team (Late st Contact Info) Description 05/29/2022 Abstract [facility] MEDICINE [address] [place] [address] Provider, MD [place] Social History Tobacco Use [...] on filedocumented in this encounter Care Teams School Laboratory Technician Relationship Specialty Start Date End Date Rigoberto Us MD [address] [place] [address] PCP - General Internal Medicine 03/30/18 Timothy Broussard RN [address] [place] [address] Timber Management SpecialistTandem Mill Operator 12/26/23 04/07/24September [address] [place] [address] Drive 3rd [place] [address] Gastroenterology 09/09/24 documented as of this encounter
--- OUTSIDE RECORDS SUMMARY | 2024-10-04 12:44 | XMS_ITS | Encounter Summary ---
Author Organization [employer] Address [address] [facility] 7t [place] [address] Care Team Providers Care Sales Executive Insurance Name Role Phone Rigoberto Us MD Primary Care Provide r Timothy Broussard RN Unavailable [phone] September Unavailable Encounter Details Date Type Department Care Team (Late st Contact Info) Description 10/31/2022 Abstract [facility] MEDICINE 230 [place] [address] Rigoberto Us MD 230 [place] [address] Social History Tobacco Use Types Packs/Day Years [...] on filedocumented in this encounter Care Teams Sales Executive Insurance Relationship Specialty Start Date End Date Rigoberto Us MD [address] [place] [address] [phone] PCP - General Internal Medicine 03/30/18 Timothy Broussard, GIANNA [address] [place] [address] Learning And Development ConsultantAccount Engineer 12/26/23 04/07/[address] [place] [address] 3rd [place] [address] Gastroenterology 09/09/24 documented as of this encounter
--- OUTSIDE RECORDS SUMMARY | 2024-10-04 12:44 | XMS_ITS | Encounter Summary ---
Author Organization [employer] Address 75 [facility] 7t [place] [address] Care Team Providers Care Routing Equipment Tender Name Role Phone Rigoberto Us MD Primary Care Provide r Timothy Broussard RN Unavailable [phone] September Unavailable Reason for Visit * Reason Onset Date Comments Call Back Request 01/22/2024 Encounter Details Date Type Department Care Team ([facility] st Contact Info) Description 01/22/2024 Telephone [facility] MEDICINE 230 [place] [address] Rigoberto Us MD 230 [place] [address] Call Back Request Social History Tobacco Use [...] a call back in order to r/s OR SCRUB TECH appt. Please contact at [phone] documented in this encounter Plan of Treatment Not on file documented as of this encounter Visit Diagnoses Not on filedocumented in this encounter Additional Health Concerns Assessment Noted Time PHQ-9 Depression Total Score: 8 08/26/19 24 11:49 AM EST documented as of this encounter Care Teams Routing Equipment Tender Relationship Specialty Start Date End Date Rigoberto Us MD [address] [place] [address] PCP - General Internal Medicine 03/30/18 Timothy Broussard RN [address] [place] [address] Ferryboat Ticket TakerPaint Line Operator 12/26/23 04/07/[address] 3rd [place] [address] Gastroenterology 09/09/24 documented as of this encounter
--- OUTSIDE RECORDS SUMMARY | 2024-10-04 12:44 | XMS_ITS | Encounter Summary ---
Author Organization [employer] Address 75 [facility] 7t [place] [address] Care Team Providers Care Statistician Applied Name Role Phone Rigoberto Us MD Primary Care Provide r September Reason for Visit * Reason Onset Date Comments Medication Question 05/25/2024 Encounter Details Date Type Department Care Team ([facility] Contact Info) Description 05/25/2024 Telephone [facility] MEDICINE 230 [place], [place] [phone] Rigoberto Us MD 230 [place] [address] Medication Question Social History Tobacco Use Types [...] he's pain don't go away. Callback number [phone] (chinese) documented in this encounter Plan of Treatment Not on file documented as of this encounter Visit Diagnoses Not on filedocumented in this encounter Additional Health Concerns Assessment Noted Time PHQ-9 Depression Total Score: 8 08/26/19 24 11:49 AM EST documented as of this encounter Care Teams Statistician Applied Relationship Specialty Start Date End Date Rigoberto Us MD [address] [place] [address] PCP - General Internal Medicine 03/30/18September [address] [place] [address] 3rd [place] [address] Gastroenterology 09/09/24 documented as of this encounter
--- OUTSIDE RECORDS SUMMARY | 2024-10-04 12:44 | XMS_ITS | Encounter Summary ---
Author Organization [employer] Address 75 [facility] 7t [place] [address] Care Team Providers Care Auto Motor Mechanic Name Role Phone Rigoberto Us MD Primary Care Provide r Timothy Broussard RN Unavailable [phone] September Unavailable Reason for Visit * Reason Onset Date Comments Lab Orders 08/30/2022 Encounter Details Date Type Department Care Team (Late st Contact Info) Description 08/30/2022 Telephone [facility] MEDICINE 230 [place] [address] Rigoberto Us MD 230 [place] [address] Lab Orders Social History Tobacco Use Types [...] - 08/30/2022 11:19 AM EST Tc from [facility] nurse requesting an order for a lumbar spine for pt documented in this encounter Plan of Treatment Not on file documented as of this encounter Visit Diagnoses Not on filedocumented in this encounter Care Teams Auto Motor Mechanic Relationship Specialty Start Date End Date Rigoberto Us MD 230 [place] [address] PCP - General Internal Medicine 03/30/18 Timothy Broussard, GIANNA [address] [place] [address] Chief PsychologistHost Hostess 12/26/23 04/07/[address] [place] [address] 3rd [place] [address] Gastroenterology 09/09/24 documented as of this encounter
--- OUTSIDE RECORDS SUMMARY | 2024-10-04 12:45 | XMS_ITS | Clinical Summary ---
Author Organization [employer] Address 75 [facility] 7t [place] [address] Care Team Providers Care Home Health Manager Name Role Phone Rigoberto Us MD [...] Pt here for a HDF Admitted to [facility] from 12/11-12/16/2023 after he presented for evaluation [...] PM EST): S/P kyphoplasty by IR at [facility] 09/20/2022 For pain control I have prescribed Oxycodone Diagnostic work up for secondary causes of osteoporosis unrevealing He is on Calcium and Vitamin D On Tymlos Evaluated by Endocrinology , last seen 05/18/2024. Assessment & Plan (12/02/2023 10:17 AM EDT): S/P kyphoplasty by IR at [facility] 09/20/2022 For pain control I have prescribed Oxycodone Diagnostic work up for secondary causes of osteoporosis unrevealing He is on Calcium and Vitamin D On Tymlos Evaluated by Endocrinology , last seen 08/14/2023 has a follow up in January Assessment & Plan (08/26/2023 11:31 AM EST): S/P kyphoplasty by IR at [facility] 09/20/2022 For pain control I have prescribed Oxycodone Diagnostic work up for secondary causes of osteoporosis unrevealing He is on Calcium and Vitamin D On Tymlos Evaluated by Endocrinology , last seen 08/14/2023 Assessment & Plan (02/04/2023 11:43 AM EDT): S/P kyphoplasty by IR at [facility] 09/20/2022 For pain control I have prescribed [...] and facet arthritis pt already following w protocol manager receiving Tymlos (abaloparatide)-states was not receiving lately x issues with pharmacy but to resume now -pt takes med to protocol manager for med administration -advised to continue w [...] PM EDT): S/P kyphoplasty by IR at [facility] 09/20/2022 For pain control I have prescribed Oxycodone but he stopped taking it Today he describes his pain at 7/10 when severe 10/10 Diagnostic work up for secondary causes of osteoporosis unrevealing He is on Calcium and Vitamin D Started on Tymlos, followed by Endocrinology Seen at [facility] On 03/19/23: Kyphon Balloon Kyphoplasty with Insertion of HV-R Bone Cement, L1 and L2 Vertebral Bodies: with 80% relief. Last seen at [facility] 10/24/2023 Scheduled for fluoroscopy guided diagnostic left L3-L4 DR L5 medial branch blocks with local anesthetic. Plan: Continue Flexeril and MS Contin 15 mg po BID risk discussed particularly around somnolence , sedation and counseled about fall prevention Assessment & Plan (12/02/2023 10:20 AM EDT): S/P kyphoplasty by IR at [facility] 09/20/2022 For pain control I have prescribed Oxycodone but he stopped taking it Today he describes his pain at 7/10 when severe 10/10 Diagnostic work up for secondary causes of osteoporosis unrevealing He is on Calcium and Vitamin D Started on Tymlos, followed by Endocrinology Seen at [facility] On 03/19/23: Kyphon Balloon Kyphoplasty with Insertion of HV-R Bone Cement, L1 and L2 Vertebral Bodies: with 80% relief. Last seen at [facility] 10/24/2023 Scheduled for fluoroscopy guided diagnostic left L3-L4 DR L5 medial branch blocks with local anesthetic. Plan: Continue Flexeril Start MS Contin 15 mg po BID risk discussed particularly around somnolence , sedation and counseled about fall prevention Assessment & Plan (04/22/2023 11:28 AM EDT): S/P kyphoplasty by IR at [facility] 09/20/2022 For pain control I have prescribed [...] AM EDT): S/P kyphoplasty by IR at [facility] 09/20/2022 For pain control I have prescribed [...] Patient is undergoing kyphoplasty by IR at [facility] tomorrow 09/20/2022 For pain control I have [...] AM EDT): S/P kyphoplasty by IR at [facility] 09/20/2022 For pain control I have prescribed [...] for a f/u He was seen by smart energy specialist at [facility] He tells me he was given injections [...] BID, He was advised to f/u with [facility] Pt reports he is still drinking on [...] for a HDF He presented again to [facility] from 05/30 until 06/01 with c/o increased [...] EDT): Under the care of Dasia Soni [facility] Assessment & Plan (12/02/2023 11:34 AM EDT): Under the care of Dasia Soni [facility] On Seroquel 300 mg po qhs Bupropion and Trazodone 100 mg po qhs per his report Assessment & Plan (04/22/2023 11:41 AM EDT): Under the care of Dasia Soni [facility] On Seroquel 300 mg po qhs Bupropion and Trazodone 100 mg po qhs per his report Assessment & Plan (06/04/2022 9:09 AM EST): Under the care of Dasia Soni [facility] On Seroquel 300 mg po [...] EDT): Under the care of Dasia Soni [facility] Serandrew nd Trazodone were discontinued in the Hospital due to prolongued Qtc He is now on Sertraline 25 mg po daily Assessment & Plan (01/08/2024 1:41 PM EDT): Under the care of Dasia Soni [facility] Seroanca nd Trazodone were discontinued in the Hospital due to prolongued Qtc He is now on Sertraline 25 mg po daily Assessment & Plan (12/02/2023 11:36 AM EDT): Under the care of Dasia newell [facility] On Seroquel 300 mg po qhs Bupropion and Trazodone 100 mg po qhs per his report Assessment & Plan (04/22/2023 11:41 AM EDT): Under the care of Dasia newell [facility] On Seroquel 300 mg po qhs Bupropion and Trazodone 100 mg po qhs per his report Assessment & Plan (06/04/2022 9:09 AM EST): Under the care of Dasia Soni [facility] Tubular adenoma of colon 03/10/2018 Assessment [...] going into A.fib Pt was cleared by [facility] 06/01 and is awaiting GI appointment for [...] A.fib Pt has now been cleared by [facility] 06/01 and is awaiting GI appointment for [...] of Trelegy and Ventolin Dr Pisano his air battle manager mentioned in a previous note that patient [...] of Trelegy and Ventolin Dr Pisano his air battle manager mentioned in a previous note that patient [...] scarring related to pneumonia Dr Pisano his air battle manager mentioned in a previous note that patient [...] scarring related to pneumonia Dr Pisano his air battle manager mentioned in a previous note that patient [...] Pt was seen by Dr Pisano his air battle manager 08/2022 he mentioned in his note that [...] Pt was seen by Dr Pisano his air battle manager 08/2022 he mentioned in his note that [...] Pt was seen by Dr Pisano his air battle manager 08/2022 he mentioned in his note that [...] Pt was seen by Dr Pisano his air battle manager 05/21/2022 who recommended a repeat Chest CT [...] Department Care Team Description 09/14/2024 Orders Only [place] [address] [facility] [place] [address] ProviderElmira MD 09/13/2024 Telephone [facility] [place] [address] Rigoberto Us MD Appointment Request 09/09/2024 2:00 PM EDT Office Visit [facility] [place] [address] Rigoberto Us MD Microscopic hematuria (Primary Dx); Pain in both testicles; Pulmonary nodule; Centrilobular emphysema (CMS/HCC); Tubular adenoma of colon; Non-ischemic cardiomyopathy (CMS/HCC); Primary hypertension; Atrial fibrillation, unspecified type (CMS/HCC); 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); Ascending aorta dilatation (CMS/HCC) 09/09/2024 Travel 09/03/2024 Population Health Risk Score Community [facility] ([facility]) Department [address] [place] [phone] Provider, Population Health Generic 09/01/2024 Telephone [facility] [place] [address] Rigoberto Us MD Chart Prep 08/22/2024 Refill [facility] [place] [address] Windy Paula MD 08/06/2024 Telephone [facility] [address] Rigoberto Us MD Results 08/04/2024 Refill [facility] [place] [address] Rigoberto Us MD 07/21/2024 10:30 AM EST Office Visit [facility] [place] [address] Milena Lopez FNP Iron deficiency anemia, unspecified iron deficiency anemia type (Primary Dx); Compression fracture of lumbar vertebra, unspecified lumbar vertebral level, sequela; Microscopic hematuria 07/21/2024 Travel 07/14/2024 Telephone [facility] [address] [place] [address] Rigoberto Us MD August Recall from Last [...] Recently Relevant to Health Maintenance Results * CT Chest w/o Contrast (09/30/2024 8:37 AM EDT) Anatomical Region Laterality Modality Body, Chest Computed Tomogra phy 09/30/2024 8:37 AM EDT Narrative 09/30/2024 9:36 AM EDT ? [facility] ?[address] ?[place] [address] ? CT Scan Report ? Signed ? Patient: Avery Ware ?MR#: ?? [id number] ? : 1955 ?Acct:[id number] ? Age/Sex: 69 / M ?ADM Date: 09/30/24 ? Loc: HO.CT ? Attending Dr: Layton Sterling MD ? Ordering Physician: Layton Sterling MD ?? Date of Service: 09/30/24 ?? Procedure(s): CT chest wo IV con ?? Accession Number(s): [id number] ? cc: Rigoberto Madrigal MD; Layton Sterling MD ? Report Number: ?? [id number]: Total DLP = ??146.00 mGy-cm ?? EXAMINATION: [...] DLP: 146 mGy centimeter. ? FINDINGS: ? AMF MECHANIC: Volume loss, right lung. Cardiomediastinal structures towards [...] AM ?? EDT RP ? Dictated By: ?Samuel Caldwell MD ? Signed By: ?<Electronically signed by Samuel Garcia MD in OV> ? 09/30/24 0933 ? DD/ 0837 ? TD/TT: 09/30/2445 ? Director Of Engineering: ? Procedure Note Donilan, Image - 09/30/[address] [place] [address] [address] Scan Report Signed Patient: Avery WareMR#: [id number] : 4Acct:[id number] Age/Sex: 69 / MADM Date: 09/30/24 Loc: HO.CT Attending Dr: Layton Sterling MD Ordering Physician: Layton Sterling MD Date of Service: 09/30/24 Procedure(s): CT chest wo IV con Accession Number(s): [id number] cc: Rigoberto Madrigal MD; Layton Sterling MD Report Number: [id number]: Total DLP = 146.00 mGy-cm EXAMINATION: CT [...] reconstruction technique. DLP: 146 mGy centimeter. FINDINGS: AMF MECHANIC: Volume loss, right lung. Cardiomediastinal structures towards [...] <Electronically signed by Samuel Garcia MDin OV> 09/30/2433 DD/ TD/TT: 09/30/2445 Director Of Engineering: [facility] External Provider IMG CT PROCEDURES Final Result * PET/CT Bone Skull Base to Mid Thigh (08/15/2024 11:35 AM EST) Anatomical Region Laterality Modality Body Computed Tomogra phy Historical Provider IMG CT PROCEDURES Final R esult * US RENAL BI (07/31/2024 9:24 AM EST) Anatomical Region Laterality Modality Abdomen Ultrasound 07/31/2024 9:24 AM EST Narrative 07/31/2024 9:26 AM EST ? [facility] ?[address] ?[place] [address] ? Ultrasound Report ? Signed ? Patient: Bosch Soni,Avery ?MR#: ?? [id number] ? : 1955 ?Acct:[id number] ? Age/Sex: 69 / M ?ADM Date: 07/30/24 ? Loc: HO.US ? Attending Dr: Milena Lopez HEAD GOLF PROFESSIONAL ? Ordering Physician: Milena Lopez HEAD GOLF PROFESSIONAL ?? Date of Service: 07/30/24 ?? Procedure(s): US renal BI ?? Accession Number(s): [id number] ? cc: Milena Lopez HEAD GOLF PROFESSIONAL ? CLINICAL HISTORY: chrronic left sided pain [...] ? DD/ 3 ? TD/TT: 07/31/24923 ? Director Of Engineering: ? Procedure Note Barbara, Image - 07/31/2024 [place] [address] Ultrasound Report Signed Patient: Nury Ware#: [id number] : 4Acct:[id number] Age/Sex: 69 / MADM Date: 07/30/24 Loc: HO.US Attending Dr: Milena SAHU Ordering Physician: Milena Lopez Date of Service: 07/30/24 Procedure(s): US renal BI Accession Number(s): [id number] cc: Milena Lopez CLINICAL HISTORY: chrronic left [...] in OV> 07/31/24924 DD/ 3 TD/TT: 07/31/24923 Director Of Engineering: us Milena Lopez HEAD GOLF PROFESSIONAL IMG US PROCEDURES Edited Resul t - Final * XR Lumbar Spine Complete 4+ Views (07/21/2024 12:13 PM EST) Anatomical Region Laterality Modality Spine, L-spine Radiographic Cristiana ging 07/21/2024 12:1 3 PM EST Narrative 07/21/2024 12:55 PM EST ?[facility] ?[address] ?[place] [address] ?XRay Report ? Signed ? Patient: Hiro Soni,Avery ?MR#: ?? [id number] ? : 1955 ?Acct:[id number] ? Age/Sex: 69 / M ?ADM Date: 07/21/24 ? Loc: HO.HHCX ? Attending Dr: Milena SAHU ? Ordering Physician: Milena Lopez ?? Date of Service: 07/21/24 ?? Procedure(s): XR lumbar spine 4V min ?? Accession Number(s): [id number] ? cc: Milena Lopez ? . ? [...] DD/ 1213 ? TD/TT: 07/21/24 1236 ? Director Of Engineering: ? Procedure Note Donserater, Image - 07/21/2024 [facility] [address] [place] [address] XRay Report Signed Patient: Avery WareMR#: [id number] : 1955cct:[id number] Age/Sex: 69 / MADM Date: 07/21/24 Loc: HO.HHX Attending Dr: Milena SAHU Ordering Physician: Milena Lopez Date of Service: 07/21/24 Procedure(s): XR lumbar spine 4V min Accession Number(s): [id number] cc: Milena Lopez . EXAMINATION: X-ray lumbar [...] 07/21/24 1252 DD/ 1213 TD/TT: 07/21/24 1236 Director Of Engineering: Milena SAHU IMG XR PROCEDURES Edited Resul t - Final * (ABNORMAL) POCT Urinalysis (07/21/2024 12:09 PM EST) Pathologist [facility] Color, UA Yellow Clarity, UA Clear Glucose, [...] Urine 07/21/2024 12:0 9 PM EST Milena SHAU POINT OF CARE TEST ENTER/EDIT ORDERABLES Final Result * Colonoscopy (04/23/2024) [facility] Colonoscopy Normal Normal Historical Provider HEALTH MAINTENANCE Final Result * LIPID PANEL, STANDARD (03/23/2021 9:05 AM EDT) [facility] Chol/HDLC Ratio 2.9 <5.0 (calc) [facility] Cholesterol, Total 154 <200 mg/dL [...] ?? Rodolfo MURO et al. OLIVIER. 2013;310(19): 1511-7208 ?? (http://education.Timehop.iAdvize/faq/QQV639) Non-HDL Cholesterol 100 <130 mg/dL (calc) [facility] Comment: For patients with diabetes plus 1 major ASCVD risk ?? factor, treating to a non-HDL-C goal of <100 mg/dL ?? (LDL-C of <70 mg/dL) is considered a therapeutic ?? option. Triglycerides 78 <150 mg/dL [facility] 03/23/2021 9:05 AM EDT Rigoberto Ramirez MD LAB BLOOD ORDERABLES Final Result [facility] [address] from Last 3 Months or Most Recently Relevant to Health Maintenance Insurance [facility] STANDARD [place] [id number] Care Teams Home Health Manager Relationship Specialty Start Date End Date Rigoberto Us MD [address] [place] [address] PCP - General Internal Medicine 03/30/18September [address] [place] [address] Drive 3rd [place] [address] Gastroenterology 09/09/24
== END 2024-10-04 11:41 | disposition home or self-care (01) ==
PROVIDERS: PCP Internal Medicine; Visit Provider Urology
DX: R31.29 Other microscopic hematuria (principal); N28.1 Cyst of kidney, acquired; N28.89 Other specified disorders of kidney and ureter; N50.819 Testicular pain, unspecified; Z12.5 Encounter for screening for malignant neoplasm of prostate; N52.9 Male erectile dysfunction, unspecified; Z13.9 Encounter for screening, unspecified
CPT/HCPCS: 99214

== ENCOUNTER → 2024-10-04 10:51 | Outpatient (BNVA) | payer MEDICARE, MEDICAID, SELFPAY | PROVIDERS: PCP Internal Medicine; Visit Provider Urology | DX: R31.29 Other microscopic hematuria (principal); N28.1 Cyst of kidney, acquired; N28.89 Other specified disorders of kidney and ureter; N50.819 Testicular pain, unspecified; N52.9 Male erectile dysfunction, unspecified; Z12.5 Encounter for screening for malignant neoplasm of prostate | CPT/HCPCS: 51798; 81003; 99212 ==

== ENCOUNTER 2024-10-08 09:38 | Day surgery (SDC) | payer MEDICARE, MEDICAID, SELFPAY ==
--- NOTE | 2024-10-06 13:47 | HO.ANESPROP2 ---
Documented by User: Nai Rush NP 10/07/24 09:25 HPI - Anesthesia Eval Consult details Narrative: 69yo M for Sigmoidoscopy Flexible s/p same 04/2024 with TIVA - had afib with RVR during and sent to ED Chronic respiratory failure on supplemental O2. Follows [facility] [place] pulmo. Stable at 03/2024 office visit Follows [facility] Cardiology for afib, nonischemic CMP. Stable at 08/2024 office visit Eliquis for afib. [facility] [place] Active Problems Active Problems: All Active Problems Erectile dysfunction (Acute) Testicular pain (Acute) Calyceal diverticulum (Acute) Renal cyst (Acute) High grade dysplasia in colonic adenoma (Acute) GI bleed (Acute) Scapholunate instability (Acute) Microscopic hematuria (Acute) Degeneration, intervertebral disc, lumbosacral (Acute) Pulmonary nodule (Acute) Chronic idiopathic constipation (Acute) Small bowel motility disorder (Acute) Chronic heart failure (Acute) Erosive esophagitis (Acute) Arthritis of both elbows (Acute) Systolic dysfunction (Acute) Rectal prolapse (Acute) Glaucoma (Acute) Peptic ulcer disease (Acute) Chronic hypoxemic respiratory failure (Acute) Nicotine dependence, cigarettes, uncomplicated (Acute) BPH (benign prostatic hyperplasia) (Acute) Tubular adenoma of colon (Acute) Osteoporosis (Acute) Past Medical History Medical History Compression fracture of lumbar vertebra Compression fracture of T9 vertebra Right clavicle fracture Dysphagia Compression fracture of body of thoracic vertebra Hematemesis with nausea Acute exacerbation of emphysema Chronic hypoxemic respiratory failure Nicotine dependence, cigarettes, uncomplicated Compression fracture of T7 vertebra Cervical spondylosis Bilateral tinnitus Ascending aorta dilatation Opacity of lung on imaging study Generalized anxiety disorder Edentulous Bipolar 1 disorder Emphysema lung BPH (benign prostatic hyperplasia) Osteoporosis Atrial fibrillation with rapid ventricular response History of alcohol abuse Nonischemic cardiomyopathy Tubular adenoma of colon Pulmonary nodules COPD (chronic obstructive pulmonary disease) Hyperlipidemia COPD (chronic obstructive pulmonary disease) GERD (gastroesophageal reflux disease) Depression Hypertension Family History Family History Mother Renal failure Father History of depression Brother Colon cancer Family history of problems with anesthesia: No Surgical History Surgical History Hx of cystoscopy Hx of kyphoplasty History of surgery on left wrist (~03/21/10) Hx of endoscopy Hx of colonoscopy (~02/13/06) Hx of cataract surgery (~07/02/10) History of appendectomy History of gastric surgery History of Problems with Anesthesia: No Social History Social History Household Members: Significant Other Housing: House Are you a primary school child care attendant to a significant other at home: No Do you presently have visiting nurse or other home services: No Alcohol intake: never Patient Tobacco Use Status: Former Tobacco user Tobacco use type: Cigarette Cigarette Packs Per Day: 0.5 Years Smoked: 55 e-Cigarette/Vaping Use: Former Use Second Hand Smoke Exposure: No Use of substances other than those prescribed or required for medical reasons: No Advance Directives: Yes Advance Directives Information Provided: No Advance Directives on File: Yes Advance Directives Date on File: 09/02/22 service: No Current occupational status: unemployed and disabled 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 Meds Allergies Allergy/AdvReac Type Severity Reaction Status Date / Time No Known Allergies Allergy Verified 10/08/24 10:09 [No Known Allergies*] Home Medications ?Medication ?Instructions ?Recorded ?Confirmed ?Last Taken ?Type latanoprost 0.005 % eye drops 1 drp ophthalmic (eye) BEDTIME 03/27/20 10/06/24 12/11/23 History simvastatin 20 mg tablet 20 mg PO QPM 07/31/23 10/06/24 12/11/23 History ferrous gluconate 324 mg (38 mg 324 mg PO DAILY 10/24/23 10/06/24 10/06/24 History iron) tablet furosemide 20 mg tablet 20 mg PO DAILY 10/24/23 10/06/24 12/11/23 History ascorbic acid (vitamin C) 250 mg 250 mg PO DAILY 12/12/23 10/06/24 12/11/23 History tablet sotalol 80 mg tablet 80 mg PO Q12H 12/12/23 10/06/24 10/08/24 History Oxygen Home Use 12/23/23 Unknown History sertraline 25 mg tablet 25 mg PO DAILY 12/23/23 10/06/24 Unknown History apixaban 5 mg tablet (Eliquis) 5 mg PO BID 04/21/24 10/06/24 10/05/24 History trazodone 50 mg tablet 25 - 50 mg PO BEDTIME 05/07/24 10/06/24 Unknown History verapamil 120 mg 24 hr 120 mg PO QAM 05/07/24 10/06/24 Unknown History capsule,extended release albuterol sulfate 2.5 mg/3 mL 2.5 mg inhalation Q6H shortness of 09/21/24 10/06/24 Unknown History (0.083 %) solution for nebulization breath or wheezing denosumab 60 mg/mL subcutaneous 60 mg subcut [id number] 09/21/24 10/06/24 Unknown History syringe (Prolia) quetiapine 100 mg tablet 100 mg PO BEDTIME 09/21/24 10/06/24 Unknown History acetaminophen 500 mg tablet 500 mg PO Q8H PRN mild pain 10/04/24 10/06/24 Unknown History Exam Pertinent Lab Results Pertinent Lab Results: Laboratory Tests 05/13/24 06/30/24 17:07 10:13 WBC 7.7 Hgb 14.3 Hct 42.6 Plt Count 204 Sodium 141 Potassium 4.0 Chloride 107 Carbon Dioxide 28 BUN 20 H Creatinine 0.89 Narrative Narrative: ECHO 07/2024 1. LV size nml. Mild conc LVH. Overall LV sys function mild-moderately impaired with EF 40-45%. Grade 1 DD with impaired relaxation filling patter. LA pressures nml. False tendone visualized in LV. No evidence of WMA. 2. LA size nml. 3. RV nml in size with nml systolic function. 4. No evidence of pulmo htn 5. Sclerodegenerative valve disease with nml function 6. No pericardial effusion 7. Asc and transverse aorta are dilated, measuring up to 4.1cm and 4.0 cm c/w 2022 report, asc aorta and aortic arch are dilated on current study Assessment and Plan Assessment Anesthesia Assessment: Chart Reviewed Final Anesthetic Review Family History of Problems with Anesthesia: No History of Problems with Anesthesia: No Documented by User: Carie Hdez MD 10/08/24 10:17 [facility] [place] Active Problems Active Problems: All Active Problems Erectile dysfunction (Acute) Testicular pain (Acute) Calyceal diverticulum (Acute) Renal cyst (Acute) High grade dysplasia in colonic adenoma (Acute) GI bleed (Acute) Scapholunate instability (Acute) Microscopic hematuria (Acute) Degeneration, intervertebral disc, lumbosacral (Acute) Pulmonary nodule (Acute) Chronic idiopathic constipation (Acute) Small bowel motility disorder (Acute) Chronic heart failure (Acute) Erosive esophagitis (Acute) Arthritis of both elbows (Acute) Systolic dysfunction (Acute) Rectal prolapse (Acute) Glaucoma (Acute) Peptic ulcer disease (Acute) Chronic hypoxemic respiratory failure (Acute) Nicotine dependence, cigarettes, uncomplicated (Acute)- quit 3 years ago BPH (benign prostatic hyperplasia) (Acute) Tubular adenoma of colon (Acute) Osteoporosis (Acute) On home O2 - 2L Denies DONNA Past Medical History Medical History Compression fracture of lumbar vertebra Compression fracture of T9 vertebra Right clavicle fracture Dysphagia Compression fracture of body of thoracic vertebra Hematemesis with nausea Acute exacerbation of emphysema Chronic hypoxemic respiratory failure Nicotine dependence, cigarettes, uncomplicated Compression fracture of T7 vertebra Cervical spondylosis Bilateral tinnitus Ascending aorta dilatation Opacity of lung on imaging study Generalized anxiety disorder Edentulous Bipolar 1 disorder Emphysema lung BPH (benign prostatic hyperplasia) Osteoporosis Atrial fibrillation with rapid ventricular response History of alcohol abuse Nonischemic cardiomyopathy Tubular adenoma of colon Pulmonary nodules COPD (chronic obstructive pulmonary disease) Hyperlipidemia COPD (chronic obstructive pulmonary disease) GERD (gastroesophageal reflux disease) Depression Hypertension Family History Family History Mother Renal failure Father History of depression Brother Colon cancer Family history of problems with anesthesia: No Surgical History Surgical History Hx of cystoscopy Hx of kyphoplasty History of surgery on left wrist (~03/21/10) Hx of endoscopy Hx of colonoscopy (~02/13/06) Hx of cataract surgery (~07/02/10) History of appendectomy History of gastric surgery History of Problems with Anesthesia: No Social History Social History Household Members: Significant Other Housing: House Are you a primary school child care attendant to a significant other at home: No Do you presently have visiting nurse or other home services: No Alcohol intake: never Patient Tobacco Use Status: Former Tobacco user Tobacco use type: Cigarette Cigarette Packs Per Day: 0.5 Years Smoked: 55 e-Cigarette/Vaping Use: Former Use Second Hand Smoke Exposure: No Use of substances other than those prescribed or required for medical reasons: No Advance Directives: Yes Advance Directives Information Provided: No Advance Directives on File: Yes Advance Directives Date on File: 09/02/22 service: No Current occupational status: unemployed and disabled 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 Meds Allergies Allergy/AdvReac Type Severity Reaction Status Date / Time No Known Allergies Allergy Verified 10/08/24 10:09 [No Known Allergies*] Home Medications ?Medication ?Instructions ?Recorded ?Confirmed ?Last Taken ?Type latanoprost 0.005 % eye drops 1 drp ophthalmic (eye) BEDTIME 03/27/20 10/06/24 12/11/23 History simvastatin 20 mg tablet 20 mg PO QPM 07/31/23 10/06/24 12/11/23 History ferrous gluconate 324 mg (38 mg 324 mg PO DAILY 10/24/23 10/06/24 10/06/24 History iron) tablet furosemide 20 mg tablet 20 mg PO DAILY 10/24/23 10/06/24 12/11/23 History ascorbic acid (vitamin C) 250 mg 250 mg PO DAILY 12/12/23 10/06/24 12/11/23 History tablet sotalol 80 mg tablet 80 mg PO Q12H 12/12/23 10/06/24 10/08/24 History Oxygen Home Use 12/23/23 Unknown History sertraline 25 mg tablet 25 mg PO DAILY 12/23/23 10/06/24 Unknown History apixaban 5 mg tablet (Eliquis) 5 mg PO BID 04/21/24 10/06/24 10/05/24 History trazodone 50 mg tablet 25 - 50 mg PO BEDTIME 05/07/24 10/06/24 Unknown History verapamil 120 mg 24 hr 120 mg PO QAM 05/07/24 10/06/24 Unknown History capsule,extended release albuterol sulfate 2.5 mg/3 mL 2.5 mg inhalation Q6H shortness of 09/21/24 10/06/24 Unknown History (0.083 %) solution for nebulization breath or wheezing denosumab 60 mg/mL subcutaneous 60 mg subcut [id number] 09/21/24 10/06/24 Unknown History syringe (Prolia) quetiapine 100 mg tablet 100 mg PO BEDTIME 09/21/24 10/06/24 Unknown History acetaminophen 500 mg tablet 500 mg PO Q8H PRN mild pain 10/04/24 10/06/24 Unknown History Exam Height,Weight and Vital Signs: Height 5 ft 11 in Weight 93.44 kg Vital Signs Temp Pulse Resp BP Pulse Ox O2 Del Method O2 Flow Rate 10/08/24 10:07 98.1 F 76 18 126/91 H 98 Nasal Cannula 2 Pertinent Lab Results Pertinent Lab Results: Laboratory Tests 05/13/24 06/30/24 17:07 10:13 WBC 7.7 Hgb 14.3 Hct 42.6 Plt Count 204 Sodium 141 Potassium 4.0 Chloride 107 Carbon Dioxide 28 BUN 20 H Creatinine 0.89 Airway Mallampati Class: II TM Dist: >3cm Neck ROM: Full Loose/Missing/Broken Teeth: Yes (Only a couple of teeth on bottom. Not loose) Heart: RRR Lungs: CTAB Assessment and Plan Assessment Anesthesia Assessment: Anesthesia Plan Discussed and Chart Reviewed Final Anesthetic Review Family History of Problems with Anesthesia: No History of Problems with Anesthesia: No NPO: Yes ASA Class: IV Final Preanesthetic Review: No Changes in Pt Med Stat, Meds/Allgs Chart Reviewed, Consent Obtained/Reviewed and Anes Risks/Benef Reviewed Patient Risk: Intermediate Procedure Risk: Low Assessment/Block/Sedation in SS: Assess/Block/Sedation-SS Anesthetic Plan Anesthetic Plan: TIVA Disposition: Standard PACU
[2024-10-06 13:55] VITALS: BMI 28.9
[2024-10-08] MEDS: Lactated Ringers 1,000 ML 100 ML IVCONT (09:50)
[2024-10-08 10:06] VITALS: BMI 28.7
[2024-10-08 10:07] VITALS: BP 126/91; PULSE 76; RESP 18; TEMP 36.7; O2SAT 98
--- NOTE | 2024-10-08 10:11 | P.HPSUR_ITS ---
Pre-Procedural Eval Section A - 24 Hr Update-Section A only Date of Service: 10/08/24 Section B - Complete if H&P > 30 days Chief Complaint: Follow-up of rectal polyp Relevant Family History (Specify if Yes): Yes Relevant Social History: Tobacco Use (Former smoker) Present Medications: see Short Stay Collaborative assessment Medical History: Significant History (Chronic hypoxemic respiratory failure [place] dependence, cigarettes, uncomplicated Compression fracture of T7 vertebra Cervical spondylosis Bilateral tinnitus Ascending aorta dilatation Opacity of lung on imaging study Generalized anxiety disorder Edentulous Bipolar 1 disorder Emphysema lung BPH () History of Previous Operations: Relevant previous surgery/procedure and date(s) (Hx of cystoscopy Hx of kyphoplasty History of surgery on left wrist (~03/21/10) Hx of endoscopy Hx of colonoscopy (~02/13/06) Hx of cataract surgery (~07/02/10) History of appendectomy History of gastric surgery) Allergies: Allergies Allergy/AdvReac Type Severity Reaction Status Date / Time No Known Allergies Allergy Verified 10/08/24 10:09 [No Known Allergies*] Review of Systems Sugical H&P ROS: Negative: Constitution, Cardiovascular, Respiratory and Gastrointestinal Exam Surgical H&P Exam: Normal: Heart, Normal: Lungs, Normal: Extremities and Normal: Abdomen Plan Diagnosis/Plan: Change (Proceed with flexible sigmoidoscopy for removal of rectal polyp) I have reviewed the history and physical and performed a pertinent physical examination on my patient. No changes have occurred unless specified. Time Spent With Patient Time: Total time managing care of this patient today ____ minutes.
--- NOTE | 2024-10-08 10:58 | HO.OPN-COLON ---
Colonoscopy Operative Note Operative Note Date of Service: 10/08/24 Narrative: FLEXIBLE SIGMOIDOSCOPY TO 30 CM WITH SNARE POLYPECTOMY AND SUBMUCOSAL INJECTION Pre-op diagnosis: Follow-up of rectal polyp. Post-op diagnosis:? Colon polyp, Diverticulosis, hemorrhoids Endoscopist:? Luca Gonzales MD Anesthesia:?MAC Consent: Indications for the procedure and potential complications of bleeding, perforation, reaction to medications and missed diagnosis were discussed with the patient and informed consent was obtained. Instrument: Olympus Midsize Upper Endoscope Monitoring: Vital signs and clinical assessment, intermittent blood pressure monitoring, continuous EKG monitoring, Pulse oximetry and Carbon Dioxide monitoring were done throughout the procedure. Please see anesthesia flowsheet. Procedure: The patient was placed in the left lateral decubitis position and pre-procedure medications were administered. After a digital rectal examination of the ano-rectum, the video upper endoscope was inserted into the rectum and advanced through the colon to distal sigmoid colon at 30 cms. The upper endoscope was slowly withdrawn in a retrograde panoramic fashion and the colon mucosa was carefully examined including a retroflexed view of the rectum. Findings and interventions are described below. Procedure Difficulty: without difficulty Findings: Sigmoid Colon: Moderate diverticulosis Rectum: A 10-12 mm sessile polyp - removed with a stiff hot snare and labeled rectal polyp # 1 A 12-15 mm polyp just proximal to the anal verge seen on retroflexed exam. Polyp was raised with 3 cc of Eleview and removed partially with a stiff hot snare Multiple attempts to snare the polyp were unsuccessful due to friable tissue Ano-rectum: Moderate internal hemorrhoids Colon preparation: Good after some irrigation. Impression and Post Procedure Diagnosis: Flexible Sigmoidoscopy Findings: One medium sized polyp was removed A 12-15 mm polyp just proximal to the anal verge seen on retroflexed exam. Polyp was raised with 3 cc of Eleview and removed partially with a stiff hot snare Multiple attempts to snare the polyp were unsuccessful due to friable tissue Moderate diverticulosis seen in the sigmoid colon Moderate hemorrhoids on retroflexed exam. Plan: Pt has a FU appointment on 11/23/24 with Nelda Chavez NP Pt was discussed with Dr Gonzales and referred for trans-anal resection Repeat Colonoscopy in 1 year for FU of adenomatous colon polyps. Above findings were reviewed with the patient. ADDENDUM: BIOPSIES SHOWED: A. Rectum, polypectomy: Hyperplastic mucosal polyp. B. Rectum, #2, polypectomy: Polypoid colonic mucosa with high grade dysplasia and thermal artifact.
[2024-10-08 11:03] VITALS: BP 90/69; PULSE 69; RESP 20; TEMP 36.6; O2SAT 93
[2024-10-08 11:21] VITALS: BP 112/87; PULSE 63; RESP 18; TEMP 36.6; O2SAT 96
== END 2024-10-08 11:55 | disposition home or self-care (01) ==
PROVIDERS: PCP Internal Medicine; Visit Provider Internal Medicine Gastroenterology
PROC: 0DJD8ZZ Inspection of Lower Intestinal Tract, Via Natural or Artificial Opening Endoscopic (ICD-10-PCS; CPT 45330; principal; 2024-10-08 11:00)
DX: Z12.11 Encounter for screening for malignant neoplasm of colon (principal); Z86.0101 Personal history of adenomatous and serrated colon polyps; D12.8 Benign neoplasm of rectum; K57.30 Diverticulosis of large intestine without perforation or abscess without bleeding; K64.8 Other hemorrhoids; K21.9 Gastro-esophageal reflux disease without esophagitis; K59.04 Chronic idiopathic constipation; K59.9 Functional intestinal disorder, unspecified; J96.11 Chronic respiratory failure with hypoxia; J43.9 Emphysema, unspecified; I10 Essential (primary) hypertension; Z87.891 Personal history of nicotine dependence; F31.9 Bipolar disorder, unspecified; F41.1 Generalized anxiety disorder; Z98.890 Other specified postprocedural states
CPT/HCPCS: 45338; 45335; 88305; J2003; J2704

== ENCOUNTER → 2024-10-08 09:38 | Outpatient (BNV) | payer MEDICARE, MEDICAID, SELFPAY | PROVIDERS: PCP Internal Medicine; Visit Provider Internal Medicine Gastroenterology | DX: K62.1 Rectal polyp (principal); K57.30 Diverticulosis of large intestine without perforation or abscess without bleeding; K64.8 Other hemorrhoids | CPT/HCPCS: 45335; 45338 ==

== ENCOUNTER 2024-10-15 10:28 | Outpatient (AMB) | payer MEDICARE, MEDICAID, SELFPAY ==
[2024-10-15 10:31] VITALS: BP 90/68; PULSE 78; O2SAT 97; BMI 29.2
--- NOTE | 2024-10-15 10:31 | MHC.OFFVIS ---
Vital Signs 10/15/24 10:31 Height 5 ft 11 in Weight 209 lb 7.026 oz BMI 29.2 BP 90/68 Blood Pressure Location Lt brachial Position Sitting Pulse 78 Pulse Source Pulse Oximeter Pulse Oximetry (%) 97 Oxygen Delivery Method Nasal Cannula Oxygen Flow Rate 2 Intake Visit Reasons: 6m F/U COPD Accompanied by: Self / Same As Patient Allergies No Known Allergies [No Known Allergies*] Allergy (Verified 10/15/24 10:34) HPI Comments Details: The patient is a 69-year-old gentleman with a known history of tobacco dependency, COPD with significant emphysema and pulmonary nodules is here for evaluation. The patient to smoke was 2 point complaints of shortness of breath with activity and also complains of cough. [id number]-xi-daqowlxc severity. Feels like his legs are very heavy in does get fatigued with activity. He does continue to use inhalers which include Flovent and Spiriva. He uses them with good adherence. He does not have a rescue inhaler at this time. We did talk about smoking. The patient is down to 10 cigarettes a day. He is struggling to decrease further. He was on Chantix but was making and depressed. Therefore will hold off on additional Chantix. He will be a good candidate for Wellbutrin however. Also, in conjunction with Wellbutrin I will prescribe the Nicotrol inhaler that he can use in between for breakthrough nicotine withdrawals. In the patient has had multiple CT scans of the chest in currently participating in the lung cancer screening program. Her last CT scan was done just a few days ago 02/05/2021 demonstrating stable right upper lobe pulmonary nodules. He does have moderate to severe emphysema primarily in the upper lung zones. In he also is following up with Dr. Arce from thoracic surgery. Will continue monitoring the pulmonary nodule in the right upper lobe closely. The patient does have a family history of lung cancer and also pulmonary fibrosis. 01/23/2023 the patient is here for pulmonary follow-up visit. The patient overall has been doing well from a respiratory status. He is having significant amount of back pain. He did have a compression fracture that was 6 in now having issues with other back issues. She was referred to a neurosurgeon. At this point he is waiting that appointment. Clinically patient doing very well from a respiratory status he has stop smoking he has been using the Trelegy inhaler. Under go ahead and decrease the amount of steroids to the lower dose Trelegy. The patient also underwent a CT scan of the chest which I personally reviewed with him. All the findings are reassuring the nodular densities appear to be stable not smaller. He does have extensive emphysema however. That has not changed. No significant scarring noted. He will need another CT scan for another year. Will follow-up in the springtime. 03/14/2023 the patient is here for pulmonary follow-up visit. Overall the patient is doing very well from a respiratory status. He continues uses respiratory therapy with good effect. The patient has not required any prednisone or rescue therapy. He has been having significant back pain. He recently did have an MRI of the back demonstrating new or worsening lumbar compression fractures. He will be following up with pain management soon. He may need to have additional kyphoplasty done. He is going to be working with them. In the meantime more respiratory status the patient is doing well and she will be able to tolerate anesthesia for his procedure. The patient also had a CT scan of the chest demonstrating stable pulmonary nodules. He does have extensive emphysema. Overall the patient has been doing well after he is quit smoking. We did do alpha-1 testing which was completely normal. will go ahead and follow-up in 1 year. If the patient develops any symptoms prior to that he is call the office for an earlier assessment. 09/26/2023 the patient is here for a pulmonary follow-up visit. Overall he is doing fairly well from respiratory status. He continues with this tobacco cessation. He continues with the Trelegy inhaler. Does not really use his rescue inhaler often. Typically less than twice a week. He does have dyspnea on exertion specially going up a flight of stairs. Explained to him that not only does have COPD but he has also been more anemic in the last few months that is also contributing to his breathing. In addition to that he is gained some weight. He is scheduled to have a repeat CT scan in the summer subsequently her follow-up in the fall with PFTs. At that point will plan to get him scheduled for pulmonary rehabilitation. For now he can work on his other issues that he is having such as the anemia and his musculoskeletal discomforts. 12/23/2023 the patient is here for pulmonary follow-up visit. He was recently hospitalized with pneumonia and COPD exacerbation. His chest x-ray did personally reviewed demonstrating a right-sided opacity moderate in size. He was placed on antibiotics steroids and oxygen. Quickly after few days he had a repeat x-ray again personally by me demonstrating interval resolution of the process. I suggest that possibly was not just an infectious process but inflammatory process as well. The patient had been having some vomiting so the therefore micro aspirations into the lung and aspiration pneumonitis is also in differential. I did review her CT scan that he had previously done in early 2023 with relatively minimal changes to the right hemithorax dust with some scarring. The patient is scheduled to have a repeat CT scan sometime about mid December. Will follow-up those findings. In the meantime he is on oxygen. He is having hard tank carrying the portable oxygen tanks. We were able to do another 6 minute walk test. The patient was able to maintain a pulse ox of 92% at rest which is reassuring. This was on room air. Then he was ambulated he did desaturate down to 88%. He was then placed on 2 L pulse and his pulse ox was low in the 90s. Therefore he was placed on 3 L pulse in the lot better. Therefore will going to request a conserving valve with a be sudden therefore him. This would be a lot easier for him to carry. In addition to that will also request a portable oxygen concentrator the provide better portability outside of the home. Will at least start the process through [facility] as they have thrown protocols to provide such devices. He will continue with current respiratory therapy. He is currently getting physical therapy at home. Therefore will wait to consider pulmonary rehabilitation in the future. He is reluctant at this time. 03/31/2024 the patient is here for a pulmonary follow-up visit. Overall he is doing well. He is actually feeling better. He is walking regularly. He is using his oxygen with good effect. He is wondering if he still needs the oxygen at nighttime. Therefore will do an overnight oximetry on room air with the hope that he does not qualify any longer so we can discontinue that. But for now he should continue to use it. The patient also had a CT scan through the lung cancer screening program demonstrating a concerning 1.1 cm pulmonary nodule in the right upper lobe. Therefore, he was set up for a PET scan. He did have the PET scan but it was actually in reducing size and no significant FDG activity. Therefore the fact that the nodule is decreasing in size is very reassuring. However, they did document that he does have a new nodule measuring 6 mm. This is to small for PET scan yield. Therefore, he will need to have a repeat CT scan in 6 months for the new nodule. He also states he does have significant back pain and recently was started on morphine. I discouraged him to continue the morphine. He will talk to his primary care doctor about discontinuing the morphine and finding alternative. The morphine can worsen his respiratory drive and potentially worsen his respiratory failure. The patient also the PET scan has some FDG activity around the GE junction of the hiatal hernia. He does follow-up with GI regularly. 10/15/2024 the patient is here for a pulmonary follow-up visit. Overall the patient has been doing well. He continues uses respiratory therapy as prescribed. Also using the oxygen with good effect. The patient is thinking about going a broad and was taken off flight. He does not have a POC at this time. We had requested when before but he may have to go to the protocols of the [facility] [place] in order to qualify for 1. In the meantime the patient will come back in 6 months and we can assess his oxygen needs to see how safe is for him to travel without any oxygen. He did undergo CT scan of the chest that I personally reviewed with him. It appears that the nodular density has decreased in size which is reassuring. Will plan to repeat the CAT scan in a year's time. If he develops any issues prior to the next visit in 6 months he will call for an earlier assessment. [facility] Medical History Compression fracture of lumbar vertebra Compression fracture of T9 vertebra Right clavicle fracture Dysphagia Compression fracture of body of thoracic vertebra Hematemesis with nausea Acute exacerbation of emphysema Chronic hypoxemic respiratory failure Nicotine dependence, cigarettes, uncomplicated Compression fracture of T7 vertebra Cervical spondylosis Bilateral tinnitus Ascending aorta dilatation Opacity of lung on imaging study Generalized anxiety disorder Edentulous Bipolar 1 disorder Emphysema lung BPH (benign prostatic hyperplasia) Osteoporosis Atrial fibrillation with rapid ventricular response History of alcohol abuse Nonischemic cardiomyopathy Tubular adenoma of colon Pulmonary nodules COPD (chronic obstructive pulmonary disease) Hyperlipidemia COPD (chronic obstructive pulmonary disease) GERD (gastroesophageal reflux disease) Depression Hypertension Surgical History Hx of cystoscopy Hx of kyphoplasty History of surgery on left wrist (~03/21/10) Hx of endoscopy Hx of colonoscopy (~02/13/06) Hx of cataract surgery (~07/02/10) History of appendectomy History of gastric surgery Family History Mother Renal failure Father History of depression Brother Colon cancer Social History Household Members: Significant Other Housing: House Are you a primary pet care assistant to a significant other at home: No Do you presently have visiting nurse or other home services: No Alcohol intake: never Patient Tobacco Use Status: Former Tobacco user Tobacco use type: Cigarette Cigarette Packs Per Day: 0.5 Years Smoked: 55 e-Cigarette/Vaping Use: Former Use Second Hand Smoke Exposure: No Advance Directives Date on File: 09/02/22 service: No Current occupational status: unemployed and disabled 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 Review of Systems Const Denies chills, Denies fatigue, Denies fever(s), Denies weight gain and Denies weight loss ENT Denies dizziness Card Denies chest pain, Denies leg edema, Denies lightheadedness, Denies palpitations, Reports dyspnea on exertion, Denies orthopnea and Denies other Resp Reports cough and Reports dyspnea on exertion GI Denies hematochezia and Denies change in stool character Musc Denies abnormal gait, Denies muscle weakness, Denies numbness, Denies radiating pain into limb and Denies tingling Neuro Denies abnormal gait, Denies dizziness, Denies numbness and Denies tingling Psych Reports depression (ON MEDS ) Endo Denies fatigue and Denies palpitations Physical Exam Vital Signs: Last Vital Signs Pulse 78 10/15/24 10:31 BP 90/68 10/15/24 10:31 Pulse Ox 97 10/15/24 10:31 Oxygen Delivery Method Nasal Cannula 10/15/24 10:31 Oxygen Flow Rate 2 10/15/24 10:31 BMI result Body Mass Index 29.2 Last Vital Signs Temp 98.0 F 08/28/22 07:30 Pulse 88 08/28/22 07:48 Resp 18 08/28/22 07:48 BP 110/60 08/28/22 07:30 Pulse Ox 94 08/28/22 07:30 O2 Del Method 08/28/22 07:30 O2 Flow Rate 2.5 08/28/22 07:30 BMI result Body Mass Index 28.5 Const General: alert Neck Neck: Yes normal visual inspection, Yes full ROM and Yes no lymphadenopathy Chest Chest palpation & inspection: normal inspection of the chest Resp Effort & Inspection: normal respiratory effort Auscultation: diminished lung sounds Cardio Rate: regular rate Rhythm: abnormal rhythm Heart sounds: S1 normal heart sound present and S2 normal heart sound present GI Palpation (GI): Soft to palpation and nontender Auscultation: normal bowel sounds Back/Spine/Pelvis Back: back tenderness Skin General skin exam: rashes and/or lesions noted Assessment & Plan Assessment & Plan (1) Chronic hypoxemic respiratory failure: Code(s): J96.11 - Chronic respiratory failure with hypoxia Category: Medical (2) Pulmonary nodules: Code(s): R91.8 - Other nonspecific abnormal finding of lung field Category: Medical (3) COPD (chronic obstructive pulmonary disease): Code(s): J44.9 - Chronic obstructive pulmonary disease, unspecified Category: Medical Qualifiers: COPD type: emphysema Emphysema type: centrilobular Qualified Code(s): J43.2 - Centrilobular emphysema (4) Dyspnea: Code(s): R06.00 - Dyspnea, unspecified Category: Medical Qualifiers: Dyspnea type: dyspnea on exertion Qualified Code(s): R06.09 - Other forms of dyspnea Plan Continue Trelegy inhaler 100 continue oxygen: 3l/pulse with activity with cerserving tank and 2l/min while sleeping with concentrator. Would also benefit from a POC for better protability outside of the home BARBARA as needed consider pulmonary rehab Repeat CT chest in 12 months F/U in 6 months Coding Level of Care Code Est Pt Level 4 (57403) Complex EM visit Add On G2211 Diagnoses Chronic hypoxemic respiratory failure J96.11 Pulmonary nodules R91.8 Centrilobular emphysema J43.2 COPD type: emphysema Emphysema type: centrilobular Dyspnea on exertion R06.09 Dyspnea type: dyspnea on exertion Time Spent (min) 17
--- OUTSIDE RECORDS SUMMARY | 2024-10-15 11:01 | XMS_ITS | Encounter Summary ---
Author Organization [employer] Address [address] [place] [address] Care Team Providers Care Septic Tank Setter Name Role Phone Rigoberto Us MD Primary Care Provide r September Encounter Details Date Type Department Care Team ([facility] st Contact Info) Description 09/14/2024 Orders Only [facility] [address] [place] [address] Provider, MD [place] Social History Tobacco Use [...] EDT Narrative 09/30/2024 9:36 AM EDT ? [facility] ?[address] ?[place] [address] ? CT Scan Report ? Signed ? Patient: Hiro Soni,Avery ?MR#: ?? [id number] ? : 1955 ?Acct:[id number] ? Age/Sex: 69 / M ?ADM Date: 09/30/24 ? Loc: HO.CT ? Attending Dr: Layton Sterling MD ? Ordering Physician: Layton Sterling MD ?? Date of Service: 09/30/24 ?? Procedure(s): CT chest wo IV con ?? Accession Number(s): [id number] ? cc: Rigoberto Madrigal MD; Layton Sterling MD ? Report Number: ?? [id number]: Total DLP = ??146.00 mGy-cm ?? EXAMINATION: [...] DLP: 146 mGy centimeter. ? FINDINGS: ? MOLDER HAND: Volume loss, right lung. Cardiomediastinal structures towards [...] DD/ 0837 ? TD/TT: 09/30/24 0845 ? Foundation Maker: ? Procedure Note Ednicholetigrenellie, Image - 09/30/[address] [place] [id number] [address] Scan Report Signed Patient: Avery WareMR#: [id number] : 4Acct:[id number] Age/Sex: 69 / MADM Date: 09/30/24 Loc: HO.CT Attending Dr: Layton Sterling MD Ordering Physician: Layton Sterling MD Date of Service: 09/30/24 Procedure(s): CT chest wo IV con Accession Number(s): [id number] cc: Rigoberto Madrigal MD; Layton Sterling MD Report Number: [id number]: Total DLP = 146.00 mGy-cm EXAMINATION: CT [...] reconstruction technique. DLP: 146 mGy centimeter. FINDINGS: MOLDER HAND: Volume loss, right lung. Cardiomediastinal structures towards [...] Garcia MDin OV> 09/30/2433 DD/ TD/TT: 09/30/2445 Foundation Maker: [facility] External Provider IMG CT PROCEDURES Final [...] documented as of this encounter Care Teams Septic Tank Setter Relationship Specialty Start Date End Date Rigoberto Us MD [address] [place] [id number] PCP - General Internal Medicine 03/30/18September [address] [place] [address] [address] [place] [address] Gastroenterology 09/09/24 documented as of this encounter
--- OUTSIDE RECORDS SUMMARY | 2024-10-15 11:01 | XMS_ITS | Clinical Summary ---
Author Organization [employer] Address [address] [facility] 7t [place] [address] Care Team Providers Care Loan Counselor Name Role Phone Rigoberto Us MD Primary [...] Pt here for a HDF Admitted to [facility] from 12/11-12/16/2023 after he [...] PM EST): S/P kyphoplasty by IR at [facility] 09/20/2022 For pain control I have prescribed Oxycodone Diagnostic work up for secondary causes of osteoporosis unrevealing He is on Calcium and Vitamin D On Tymlos Evaluated by Endocrinology , last seen 05/18/2024. Assessment & Plan (12/02/2023 10:17 AM EDT): S/P kyphoplasty by IR at [facility] 09/20/2022 For pain control I have prescribed Oxycodone Diagnostic work up for secondary causes of osteoporosis unrevealing He is on Calcium and Vitamin D On Tymlos Evaluated by Endocrinology , last seen 08/14/2023 has a follow up in January Assessment & Plan (08/26/2023 11:31 AM EST): S/P kyphoplasty by IR at [facility] 09/20/2022 For pain control I have prescribed Oxycodone Diagnostic work up for secondary causes of osteoporosis unrevealing He is on Calcium and Vitamin D On Tymlos Evaluated by Endocrinology , last seen 08/14/2023 Assessment & Plan (02/04/2023 11:43 AM EDT): S/P kyphoplasty by IR at [facility] 09/20/2022 For pain control [...] and facet arthritis pt already following w manager wireless receiving Tymlos (abaloparatide)-states was not receiving lately x issues with pharmacy but to resume now -pt takes med to manager wireless for med administration -advised to continue w [...] PM EDT): S/P kyphoplasty by IR at [facility] 09/20/2022 For pain control I have prescribed Oxycodone but he stopped taking it Today he describes his pain at 7/10 when severe 10/10 Diagnostic work up for secondary causes of osteoporosis unrevealing He is on Calcium and Vitamin D Started on Tymlos, followed by Endocrinology Seen at [facility] On 03/19/23: Kyphon Balloon Kyphoplasty with Insertion of HV-R Bone Cement, L1 and L2 Vertebral Bodies: with 80% relief. Last seen at [facility] 10/24/2023 Scheduled for fluoroscopy guided diagnostic left L3-L4 DR L5 medial branch blocks with local anesthetic. Plan: Continue Flexeril and MS Contin 15 mg po BID risk discussed particularly around somnolence , sedation and counseled about fall prevention Assessment & Plan (12/02/2023 10:20 AM EDT): S/P kyphoplasty by IR at [facility] 09/20/2022 For pain control I have prescribed Oxycodone but he stopped taking it Today he describes his pain at 7/10 when severe 10/10 Diagnostic work up for secondary causes of osteoporosis unrevealing He is on Calcium and Vitamin D Started on Tymlos, followed by Endocrinology Seen at [facility] On 03/19/23: Kyphon Balloon Kyphoplasty with Insertion of HV-R Bone Cement, L1 and L2 Vertebral Bodies: with 80% relief. Last seen at [facility] 10/24/2023 Scheduled for fluoroscopy guided diagnostic left L3-L4 DR L5 medial branch blocks with local anesthetic. Plan: Continue Flexeril Start MS Contin 15 mg po BID risk discussed particularly around somnolence , sedation and counseled about fall prevention Assessment & Plan (04/22/2023 11:28 AM EDT): S/P kyphoplasty by IR at [facility] 09/20/2022 For pain control [...] AM EDT): S/P kyphoplasty by IR at [facility] 09/20/2022 For pain control [...] Patient is undergoing kyphoplasty by IR at [facility] tomorrow 09/20/2022 For pain [...] AM EDT): S/P kyphoplasty by IR at [facility] 09/20/2022 For pain control [...] for a f/u He was seen by computer technical support specialist at [facility] He tells me he [...] BID, He was advised to f/u with Endbander Pt reports he is still drinking on [...] for a HDF He presented again to [facility] from 05/30 until 06/01 with c/o increased SOB. EKG showing persistent Afib. Rate remained suppressed on Sotalol therapy, He was kept on Eliquis 5mg BID and the recommendation was to f/u with cardiology as outpatient for Holter monitor Pt tells me he has an appointment with Dr Fracnis this Friday Bipolar disorder 10/06/2018 Assessment & Plan (09/09/2024 2:06 PM EDT): Under the care of Dasia Soni [facility] Assessment & Plan (12/02/2023 11:34 AM EDT): Under the care of Dasia Soni [facility] On Seroquel 300 mg po qhs Bupropion and Trazodone 100 mg po qhs per his report Assessment & Plan (04/22/2023 11:41 AM EDT): Under the care of Dasia Soni [facility] On Seroquel 300 mg po qhs Bupropion and Trazodone 100 mg po qhs per his report Assessment & Plan (06/04/2022 9:09 AM EST): Under the care of Dasia Soni [facility] On Seroquel 300 mg po [...] EDT): Under the care of Dasia Soni [facility] Serandrew nd Trazodone were discontinued in the Hospital due to prolongued Qtc He is now on Sertraline 25 mg po daily Assessment & Plan (01/08/2024 1:41 PM EDT): Under the care of Dasia Soni [facility] Seroanca nd Trazodone were discontinued in the Hospital due to prolongued Qtc He is now on Sertraline 25 mg po daily Assessment & Plan (12/02/2023 11:36 AM EDT): Under the care of Dasai newell [facility] On Seroquel 300 mg po qhs Bupropion and Trazodone 100 mg po qhs per his report Assessment & Plan (04/22/2023 11:41 AM EDT): Under the care of Dasia newell [facility] On Seroquel 300 mg po qhs Bupropion and Trazodone 100 mg po qhs per his report Assessment & Plan (06/04/2022 9:09 AM EST): Under the care of Dasia Soni [facility] Tubular adenoma of colon 03/10/2018 [...] going into A.fib Pt was cleared by Endbander 06/01 and is awaiting GI appointment for [...] A.fib Pt has now been cleared by Endbander 06/01 and is awaiting GI appointment for [...] of Trelegy and Ventolin Dr Pisano his dietary tech mentioned in a previous note that patient [...] of Trelegy and Ventolin Dr Pisano his dietary tech mentioned in a previous note that patient [...] scarring related to pneumonia Dr Pisano his dietary tech mentioned in a previous note that patient [...] scarring related to pneumonia Dr Pisano his dietary tech mentioned in a previous note that patient [...] Pt was seen by Dr Pisano his dietary tech 08/2022 he mentioned in his note that [...] Pt was seen by Dr Pisano his dietary tech 08/2022 he mentioned in his note that [...] Pt was seen by Dr Pisano his dietary tech 08/2022 he mentioned in his note that [...] Pt was seen by Dr Pisano his dietary tech 05/21/2022 who recommended a repeat Chest CT [...] Encounters Date Type Department Care Team Description 10/08/2024 Orders Only GENERIC EXTERNAL DATA DEPARTMENT Provider, Generic External Data 09/14/2024 Orders Only [place] [facility] [address] [place] [address] Elmira Stanley MD 09/13/2024 Telephone [facility] [place] [address] Rigoberto Us MD Appointment Request 09/09/2024 2:00 PM EDT Office Visit [facility] [place] [address] Rigoberto Us MD Microscopic hematuria (Primary Dx); Pain in both testicles; Pulmonary nodule; Centrilobular emphysema (CMS/HCC); Tubular adenoma of colon; Non-ischemic cardiomyopathy (CMS/HCC); Primary hypertension; Atrial fibrillation, unspecified type (CMS/HCC); 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); Ascending aorta dilatation (CMS/HCC) 09/09/2024 Travel 09/03/2024 Population Health Risk Score [facility] () Department [address] [place] [phone] Provider, Population Health Generic 09/01/2024 Telephone [facility] [place] [address] Rigoberto Us MD Chart Prep 08/22/2024 Refill [facility] [place] [address] Windy Paula MD 08/06/2024 Telephone [facility] [place] [address] Rigoberto Us MD Results 08/04/2024 Refill [facility] [place] [address] Rigoberto Us MD 07/21/2024 10:30 AM EST Office Visit [facility] [place] [address] [place], Milena, LAG SCREWER Iron deficiency anemia, unspecified iron deficiency anemia type (Primary Dx); Compression fracture of lumbar vertebra, unspecified lumbar vertebral level, sequela; Microscopic hematuria 07/21/2024 Travel from Last 3 Months Immunizations Name Administration [...] Procedure Name Priority Date/Time Associated Diagnosis Comments HEMATOXYLIN AND EOSIN STAIN Routine 10/08/2024 10:[address] CHEST WO CONTRAST Routine 09/30/2024 8:37 [...] Recently Relevant to Health Maintenance Results * Hematoxylin and Eosin Stain (10/08/2024 10:34 AM EDT) 10/08/2024 10:3 4 AM EDT 10/08/2024 12:[address] PM EDT [facility] - 10/13/2024 4:16 PM EDT ----- ------- Name: Avery Ware ? Age/Sex: 69/M ? : 1955 Unit#: [id number] ?? Attend Dr: Luca Gonzales MD ?Re10/08/24 ?Status: DEP SDC ? Location: HO.SSS ?Disch: ? ----- ------- SPEC : [id number] ? RECD: 10/08/24-4 ? STATUS: ??SOUT ? REQ NUM: [id number] ? FRANCOIS: 10/08/24-4 ? SUBM DR: Luca Gonzales MD ? ENTERED: ??10/08/24-1230 ?SP TYPE: Surgical ? OTHR DR: Rigoberto Madrigal MD ?? ORDERED: ??HE Stain/6, Gross Micro L4/2 ? Diagnosis ?? A. ??Rectum, polypectomy: ??Hyperplastic mucosal polyp. ? B. ??Rectum, #2, polypectomy: ??Polypoid colonic mucosa with high grade dysplasia and ?? thermal artifact. ?Clinical History Colon polyp, diverticulosis and hemorrhoids ?Microscopic Description A, B. ??Microscopic sections reviewed. ? Material Received ?? A. Rectal polyp ?? B. Rectal polyp #2 ? Gross Description Received in 2 parts. A. ??Received in formalin labeled ?rectal polyp? is a rounded fragment of red-pink soft tissue measuring 0.4 cm in greatest dimension which is wrapped in lens paper and entirely submitted for microscopic examination, 1 piece in cassette A. B. ??Received in formalin labeled ?rectal polyp 2.?Are 3 fragments of red-pink soft tissue measuring 0.1-0.5 cm in greatest dimension which are wrapped in lens paper and entirely submitted for microscopic examination, 3 pieces in cassette B. ([facility]) This case was reviewed intradepartmentally. Copies To: ?? Rigoberto Madrigal MD ?? [facility] ?? [address] [facility] ?? [place] [address] ?? [phone] ? CONTINUED ON NEXT PAGE ----- ------- Name: Avery Ware ? Age/Sex: 69/M ? : 1955 Unit#: [id number] ?? Attend Dr: Luca Gonzales MD ?Re10/08/24 ?Status: DEP SDC ? Location: HO.SSS ?Disch: ? ----- ------- SPEC : ? RECD: 10/08/24-1224 ? STATUS: ??SOUT ? REQ NUM: [id number] ? FRANCOIS: 10/08/24-1034 ? SUBM DR: Luca Gonzales MD ? ENTERED: ??10/08/24-1230 ?SP TYPE: Surgical ? OTHR DR: Rigoberto Madrigal MD ?? ORDERED: ??HE Stain/6, Gross Micro L4/2 ? Copies To: ??(Continued) ?? Luca Gonzales MD ?? [facility] Gastroenterology Services ?? [address] ?? [place] [address] ?? [phone] ----- ------- Signed (signature on file) Kristian Cabral MD 10/13/24 1616 ? ----- ------- ? END OF REPORT ? us Generic External Data Provider LAB BLOOD ORDERAB LES Final Result [facility] [address] [place] [address] [phone] * CT Chest w/o Contrast (09/30/2024 8:37 AM EDT) Anatomical Region Laterality Modality Body, Chest Computed Tomogra phy 09/30/2024 8:37 AM EDT Narrative 09/30/2024 9:36 AM EDT ? [facility] ?[address] ?[place] [address] ? CT Scan Report ? Signed ? Patient: Avery Ware ?MR#: ?? [id number] ? : 1955 ?Acct:[id number] ? Age/Sex: 69 / M ?ADM Date: 09/30/24 ? Loc: HO.CT ? Attending Dr: Layton Sterling MD ? Ordering Physician: Layton Sterling MD ?? Date of Service: 09/30/24 ?? Procedure(s): CT chest wo IV con ?? Accession Number(s): [id number] ? cc: Rigoberto Madrigal MD; Layton Sterling MD ? Report Number: ?? [id number]: Total DLP = ??146.00 mGy-cm ?? EXAMINATION: [...] DLP: 146 mGy centimeter. ? FINDINGS: ? DIRECT CARE WORKER: Volume loss, right lung. Cardiomediastinal structures towards [...] ? DD/ 0837 ? TD/TT: 09/30/2445 ? Composer Teaching Artist: ? Procedure Note Donilan, Image - 09/30/[address] [place] [address] [address] Scan Report Signed Patient: Avery WareMR#: [id number] : 1955cct:[id number] Age/Sex: 69 / MADM Date: 09/30/24 Loc: HO.CT Attending Dr: Layton Sterling MD Ordering Physician: Layton Sterling MD Date of Service: 09/30/24 Procedure(s): CT chest wo IV con Accession Number(s): [id number] cc: Rigoberto Madrigal MD; Layton Sterling MD Report Number: [id number]: Total DLP = 146.00 mGy-cm EXAMINATION: CT [...] reconstruction technique. DLP: 146 mGy centimeter. FINDINGS: DIRECT CARE WORKER: Volume loss, right lung. Cardiomediastinal structures towards [...] by Samuel Garcia MDin OV> 09/30/2433 DD/ 6 TD/TT: 09/30/24 0845 Composer Teaching Artist: [facility] External Provider IMG CT PROCEDURES Final Result * PET/CT Bone Skull Base to Mid Thigh (08/15/2024 11:35 AM EST) Anatomical Region Laterality Modality Body Computed Tomogra phy Historical Provider IMG CT PROCEDURES Final R esult * US RENAL BI (07/31/2024 9:24 AM EST) Anatomical Region Laterality Modality Abdomen Ultrasound 07/31/2024 9:24 AM EST Narrative 07/31/2024 9:26 AM EST ? [facility] ?[address] ?[place] [address] ? Ultrasound Report ? Signed ? Patient: Bosch Soni,Avery ?MR#: ?? [id number] ? : 1955 ?Acct:[id number] ? Age/Sex: 69 / M ?ADM Date: 07/30/24 ? Loc: HO.US ? Attending Dr: Milena Lopez LAG SCREWER ? Ordering Physician: Milena Lopez ?? Date of Service: 07/30/24 ?? Procedure(s): US renal BI ?? Accession Number(s): [id number] ? cc: Milena Lopez LAG SCREWER ? CLINICAL HISTORY: chrronic left sided pain [...] ? DD/ 3 ? TD/TT: 07/31/24923 ? Composer Teaching Artist: ? Procedure Note Donotuseinterpreter, Image - 07/31/[address] [address] Ultrasound Report Signed Patient: Avery WareMR#: [id number] : 1955cct:[id number] Age/Sex: 69 / MADM Date: 07/30/24 Loc: HO.US Attending Dr: Milena SAHU Ordering Physician: Milena Lopez Date of Service: 07/30/24 Procedure(s): US renal BI Accession Number(s): [id number] cc: Milena Lopez CLINICAL HISTORY: chrronic left [...] in OV> 07/31/24924 DD/ 3 TD/TT: 07/31/24923 Composer Teaching Artist: us Milena JOHNSONP IMG US PROCEDURES Edited Resul t - Final * XR Lumbar Spine Complete 4+ Views (07/21/2024 12:13 PM EST) Anatomical Region Laterality Modality Spine, L-spine Radiographic Cristiana ging 07/21/2024 12:1 3 PM EST Narrative 07/21/2024 12:55 PM EST ?[facility] ?[address] ?[place] [address] ?XRay Report ? Signed ? Patient: Bosch Soni,Avery ?MR#: ?? [id number] ? : 1955 ?Acct:[id number] ? Age/Sex: 69 / M ?ADM Date: 07/21/24 ? Loc: HO.HHCX ? Attending Dr: Milena SAHU ? Ordering Physician: Milena Lopez ?? Date of Service: 07/21/24 ?? Procedure(s): XR lumbar spine 4V min ?? Accession Number(s): [id number] ? cc: Milena Lopez ? . ? [...] DD/ 1213 ? TD/TT: 07/21/24 1236 ? Composer Teaching Artist: ? Procedure Note Barbara, Image - 07/21/2024 [facility] [address] [place] [address] XRay Report Signed Patient: Avery WareMR#: [id number] : 1955cct:[id number] Age/Sex: 69 / MADM Date: 07/21/24 [facility]: Milena SAHU Ordering Physician: Milena Lopez Date of Service: 07/21/24 Procedure(s): XR lumbar spine 4V min Accession Number(s): [id number] cc: Milena Lopez . EXAMINATION: X-ray lumbar [...] 07/21/24 1252 DD/ 1213 TD/TT: 07/21/24 1236 Composer Teaching Artist: Milena SAHU IMG XR PROCEDURES Edited Resul [...] Urine 07/21/2024 12:0 9 PM EST Milena Tobinronaldzenon LAG SCREWER POINT OF CARE TEST ENTER/EDIT ORDERABLES Final Result * Hm Colonoscopy (04/23/2024) Colonoscopy Normal Normal Historical Provider HEALTH MAINTENANCE Final Result * LIPID PANEL, STANDARD (03/23/2021 9:05 AM EDT) Chol/HDLC Ratio 2.9 <5.0 (calc) [facility] Cholesterol, Total 154 <200 mg/dL [facility] HDL Cholesterol 54 > OR = 40 mg/dL [facility] LDL Cholesterol 83 mg/dL (calc) [facility] Comment: Reference range: <100 ?? [...] ?? Rodolfo MURO et al. OLIVIER. 2013;310(19): 7904-3724 ?? (http://education.Crowdnetic.[employer]/faq/DAA128) Non-HDL Cholesterol 100 <130 mg/dL (calc) [facility] Comment: For patients with diabetes plus 1 major ASCVD risk ?? factor, treating to a non-HDL-C goal of <100 mg/dL ?? (LDL-C of <70 mg/dL) is considered a therapeutic ?? option. Triglycerides 78 <150 mg/dL [facility] 03/23/2021 9:05 AM EDT us Rigoberto Givens James MD LAB BLOOD ORDERABLES Final Result [facility] [address] from Last 3 Months or Most Recently Relevant to Health Maintenance Insurance [place] [id number] Care Teams Loan Counselor Relationship Specialty Start Date End Date Rigoberto Us MD [address] [place] [phone] PCP - General Internal Medicine 03/30/[address] [place] [address] 3rd [place] [address] Gastroenterology 09/09/24
--- OUTSIDE RECORDS SUMMARY | 2024-10-15 11:01 | XMS_ITS | Encounter Summary ---
Author Organization [employer] Address [address] [facility] 7t [place] [address] Care Team Providers Care Health Tech Name Role Phone Rigoberto Us MD Primary Care Provide r Timothy Broussard RN Unavailable [phone] September Unavailable Encounter Details Date Type Department Care Team (Late st Contact Info) Description 10/31/2022 Abstract [facility] [address] [place] [address] Rigoberto Us MD [address] [place] [address] Social History Tobacco Use Types Packs/Day Years [...] on filedocumented in this encounter Care Teams Health Tech Relationship Specialty Start Date End Date Rigoberto Us MD [address] [place] [address] [phone] PCP - General Internal Medicine 03/30/18 Timothy Broussard, GIANNA [address] [place] [phone] Job Site SuperintendentBusiness Area Manager 12/26/23 04/07/[address] [place] [address] 3rd [place] [address] Gastroenterology 09/09/24 documented as of this encounter
--- OUTSIDE RECORDS SUMMARY | 2024-10-15 11:01 | XMS_ITS | Encounter Summary ---
Author Organization [employer] Address [address] [facility] 7t [place] [address] Care Team Providers Care Photographer Apprentice Lithographic Name Role Phone Rigoberto Us MD Primary Care Provide r September Encounter Details Date Type Department Care Team (Late st Contact Info) Description 10/08/2024 Orders Only GENERIC EXTERNAL DATA [...] the past 12 months, has t he [employer], gas, oil or water company threatened to [...] EOSIN STAIN Routine 10/08/2024 10:34 AM EDT documented in this encounter Results * Hematoxylin and Eosin Stain (10/08/2024 10:34 AM EDT) 10/08/2024 10:3 4 AM EDT 10/08/2024 12:24 PM EDT [facility] - 10/13/2024 4:16 PM EDT ----- ------- Name: Avery Ware ? Age/Sex: 69/M ? : 1955 Unit#: [id number] ?? Attend Dr: Luca Gonzales MD ?Re10/08/24 ?Status: DEP SDC ? Location: HO.SSS ?Disch: ? ----- ------- SPEC : [id number] ? RECD: 10/08/24-4 ? STATUS: ??SOUT ? REQ NUM: [id number] ? FRANCOIS: 10/08/24-4 ? SUBM DR: Luca [...] microscopic examination, 3 pieces in cassette B. ([facility]) This case was reviewed intradepartmentally. Copies To: ?? Rigoberto Madrigal MD ?? [facility] ?? [address] [facility] ?? [place] [address] ?? [phone] ? CONTINUED ON NEXT PAGE ----- ------- Name: Avery Ware ? Age/Sex: 69/M ? : 1955 Unit#: [id number] ?? Attend Dr: Luca Gonzales MD ?Re10/08/24 ?Status: DEP WYC ? Location: HO.SSS ?Disch: ? ----- ------- SPEC : ? RECD: 10/08/24-1224 ? STATUS: ??SOUT ? REQ NUM: [id number] ? FRANCOIS: 10/08/24-1034 ? SUBM DR: Luca Gonzales MD ? ENTERED: ??10/08/24-1230 ?SP TYPE: Surgical ? OTHR DR: Rigoberto Madrigal MD ?? ORDERED: ??HE Stain/6, Gross Micro L4/2 ? Copies To: ??(Continued) ?? Luca Gonzlaes MD ?? [facility] ?? [address] ?? [place] [address] ?? [phone] ----- ------- Signed (signature on file) Kristian Cabral MD 10/13/24 3826 ? ----- ------- ? END OF REPORT ? us Generic External Data Provider LAB BLOOD ORDERAB LES Final Result [facility] [address] [place] [address] [phone] documented in this encounter Visit Diagnoses Not on filedocumented in this encounter Additional Health Concerns Assessment Noted Time PHQ-9 Depression Total Score: 8 08/26/19 24 11:49 AM EST documented as of this encounter Care Teams Photographer Apprentice Lithographic Relationship Specialty Start Date End Date Rigoberto Us MD [address] [place] [address] [place] [address] PCP - General Internal Medicine 03/30/18September [address] [place] [address] 3rd [place] [address] Gastroenterology 09/09/24 documented as of this encounter
--- OUTSIDE RECORDS SUMMARY | 2024-10-15 11:01 | XMS_ITS | Encounter Summary ---
Author Organization [employer] Address [address] [facility] 7t [place] [address] Care Team Providers Care First Cook Name Role Phone Rigoberto Us MD Primary Care Provide r September Reason for Visit * Reason Onset Date Comments Medication Question 05/25/2024 Encounter Details Date Type Department Care Team ([facility] Contact Info) Description 05/25/2024 Telephone [facility]INE [address] [place], [place] [phone] Rigoberto Us MD [address] [place] [address] Medication Question Social History Tobacco Use Types [...] he's pain don't go away. Callback number [phone] (cameroonian) documented in this encounter Plan of Treatment Not on file documented as of this encounter Visit Diagnoses Not on filedocumented in this encounter Additional Health Concerns Assessment Noted Time PHQ-9 Depression Total Score: 8 08/26/19 24 11:49 AM EST documented as of this encounter Care Teams First Cook Relationship Specialty Start Date End Date Rigoberto Us MD [address] [place] [phone] PCP - General Internal Medicine 03/30/18September [address] [place] [address] 3rd [place] [address] Gastroenterology 09/09/24 documented as of this encounter
--- OUTSIDE RECORDS SUMMARY | 2024-10-15 11:01 | XMS_ITS | Encounter Summary ---
Author Organization [employer] Address [address] [place] [address] 7t [place] [address] Care Team Providers Care Dispatcher Relay Name Role Phone Rigoberto Us MD Primary Care Provide r Timothy Broussard RN Unavailable [phone] September Unavailable Encounter Details Date Type Department Care Team (Late st Contact Info) Description 05/29/2022 Abstract [facility] MEDICINE [address] [place] [address] Provider, MD [place] Social History Tobacco Use [...] on filedocumented in this encounter Care Teams Dispatcher Relay Relationship Specialty Start Date End Date Rigoberto Us MD 230 [place] [address] PCP - General Internal Medicine 03/30/18 Timothy Broussard RN [address] [place] [address] Orthopaedic Physician AssistantService Center Technician 12/26/23 04/07/24September [address] [place] [address] Drive 3rd [place] [address] Gastroenterology 09/09/24 documented as of this encounter
--- OUTSIDE RECORDS SUMMARY | 2024-10-15 11:01 | XMS_ITS | Encounter Summary ---
Author Organization [employer] Address 75 [facility] 7t [place] [address] Care Team Providers Care Oncology Social Worker Name Role Phone Rigoberto Us MD Primary Care Provide r Timothy Broussard RN Unavailable [phone] September Unavailable Reason for Visit * Reason Onset Date Comments Med Refill 02/16/2024 Encounter Details Date Type Department Care Team (Late st Contact Info) Description 02/16/2024 Telephone [facility] MEDICINE 230 [place] [address] Rigoberto Us MD 230 [place], [place] [phone] Med Refill Social History Tobacco Use Types [...] 12 hr tablet To be sent to: [id number] [place], [place] - [address] [place] [address] documented in this encounter Plan of Treatment Not on file documented as of this encounter Visit Diagnoses Not on filedocumented in this encounter Additional Health Concerns Assessment Noted Time PHQ-9 Depression Total Score: 8 08/26/19 24 11:49 AM EST documented as of this encounter Care Teams Oncology Social Worker Relationship Specialty Start Date End Date Rigoberto Us MD 230 [place] [address] PCP - General Internal Medicine 03/30/18 Timothy Broussard RN [address] [place] [address] Fork Lift TechnicianGlass Products Inspector 12/26/23 04/07/24 Kathy September [address] [place] [address] Drive 3rd [place] [address] Gastroenterology 09/09/24 documented as of this encounter
--- OUTSIDE RECORDS SUMMARY | 2024-10-15 11:01 | XMS_ITS | Encounter Summary ---
Author Organization [employer] Address [address] [facility] 7t [place] [address] Care Team Providers Care Long Winder Tender Name Role Phone Rigoberto Us MD Primary Care Provide r Timothy Broussard RN Unavailable [phone] September Unavailable Encounter Details Date Type Department Care Team (Late st Contact Info) Description 10/17/2023 Orders Only [facility] MEDICINE 230 [place] [address] Provider, MD [place] Social History Tobacco Use [...] documented as of this encounter Care Teams Long Winder Tender Relationship Specialty Start Date End Date Rigoberto Us MD 230 [place] [address] PCP - General Internal Medicine 03/30/18 Timothy Broussard RN [address] [place] [address] Fruit PitterRhit 12/26/23 04/07/24 KathySeptember 11 [facility] 3rd [place] [address] Gastroenterology 09/09/24 documented as of this encounter
--- OUTSIDE RECORDS SUMMARY | 2024-10-15 11:01 | XMS_ITS | Encounter Summary ---
Author Organization [employer] Address 75 [facility] 7t [place] [address] Care Team Providers Care Procurement Clerk Name Role Phone Rigoberto Us MD Primary Care Provide r Timothy Broussard RN Unavailable [phone] September Unavailable Encounter Details Date Type Department Care Team (Late st Contact Info) Description 10/04/2022 Orders Only [facility] MEDICINE 230 [place] [address] Demi Garcia, RN [address] [place] [address] Social History Tobacco Use Types Packs/Day Years [...] on filedocumented in this encounter Care Teams Procurement Clerk Relationship Specialty Start Date End Date Rigoberto Us MD [address] [place] [address] PCP - General Internal Medicine 03/30/18 Timothy Broussard, GIANNA [address] [place] [address] Locomotive Engineer [employer] Solutions Sales Consultant 12/26/23 04/07/24 Kathy September [address] [place] [address] 3rd [place] [address] Gastroenterology 09/09/24 documented as of this encounter
--- OUTSIDE RECORDS SUMMARY | 2024-10-15 11:01 | XMS_ITS | Encounter Summary ---
Author Organization [employer] Address 75 [facility] 7t [place] [address] Care Team Providers Care Global Commodity Manager Name Role Phone Rigoberto Us MD Primary Care Provide r Timothy Broussard RN Unavailable [phone] September Unavailable Reason for Visit * Reason Onset Date Comments Reschedule 01/12/2024 Encounter Details Date Type Department Care Team ([facility] st Contact Info) Description 01/12/2024 Telephone [facility] MEDICINE 230 [place] [address] Rigoberto Us MD 230 [place], [place] [phone] Reschedule Social History Tobacco Use Types Packs/Day [...] EDT Tc from sister calling requesting r/s REPAIRER TYPEWRITER appt, she will bring him to the appt however this day shewill be busy. documented in this encounter Plan of Treatment Not on file documented as of this encounter Visit Diagnoses Not on filedocumented in this encounter Additional Health Concerns Assessment Noted Time PHQ-9 Depression Total Score: 8 08/26/19 24 11:49 AM EST documented as of this encounter Care Teams Global Commodity Manager Relationship Specialty Start Date End Date Rigoberto Us MD 230 [place] [address] PCP - General Internal Medicine 03/30/18 Timothy Broussard RN [address] [place] [address] Newspaper ColumnistManager Six Sigma 12/26/23 04/07/[address] 3rd [place] [address] Gastroenterology 09/09/24 documented as of this encounter
--- OUTSIDE RECORDS SUMMARY | 2024-10-15 11:01 | XMS_ITS | Encounter Summary ---
Author Organization [employer] Address 75 [facility] 7t [place] [address] Care Team Providers Care Pad Making Machine Operator Name Role Phone Rigoberto Us MD Primary Care Provide r Timothy Broussard RN Unavailable [phone] September Unavailable Reason for Visit * Reason Onset Date Comments Lab Orders 08/30/2022 Encounter Details Date Type Department Care Team (Late st Contact Info) Description 08/30/2022 Telephone [facility] MEDICINE 230 [place] [address] Rigoberto Us MD 230 [place] [address] Lab Orders Social History Tobacco Use Types [...] - 08/30/2022 11:19 AM EST Tc from [facility] [place] [place] nurse requesting an order for a lumbar spine for pt documented in this encounter Plan of Treatment Not on file documented as of this encounter Visit Diagnoses Not on filedocumented in this encounter Care Teams Pad Making Machine Operator Relationship Specialty Start Date End Date Rigoberto Us MD [address] [place] [address] PCP - General Internal Medicine 03/30/18 Timothy Broussard, GIANNA [address] [place] [address] General ContractorAir Force Senior Officer 12/26/23 04/07/[address] [place] [address] 3rd [place] [address] Gastroenterology 09/09/24 documented as of this encounter
--- OUTSIDE RECORDS SUMMARY | 2024-10-15 11:01 | XMS_ITS | Encounter Summary ---
Author Organization [employer] Address [address] [place] [address] 7t [place] [address] Care Team Providers Care Cook Boat Name Role Phone Rigoberto Us MD Primary Care Provide r Timothy Broussard RN Unavailable [phone] September Unavailable Encounter Details Date Type Department Care Team (Latest Contact Info) Description 10/12/2020 Abstract [facility] Dental, Provider, DDS Social History Tobacco [...] on filedocumented in this encounter Care Teams Cook Boat Relationship Specialty Start Date End Date Rigoberto Us MD 230 [place] [address] PCP - General Internal Medicine 03/30/18 Timothy Broussard, RN [address] [place] [address] Service AssociateCt Scan Special Procedures Technologist 12/26/23 04/07/24September [address] 3rd [place] [address] Gastroenterology 09/09/24 documented as of this encounter
--- OUTSIDE RECORDS SUMMARY | 2024-10-15 11:01 | XMS_ITS | Encounter Summary ---
Author Organization [employer] Address 75 [facility] 7t [place] [address] Care Team Providers Care Metal Bonding Assembler Name Role Phone Rigoberto Us MD Primary Care Provide r Timothy Broussard RN Unavailable [phone] September Unavailable Reason for Visit * Reason Onset Date Comments Call Back Request 01/22/2024 Encounter Details Date Type Department Care Team ([facility] st Contact Info) Description 01/22/[address] [facility] MEDICINE 230 [place] [address] Rigoberto Us MD [address] [place] [address] Call Back Request Social History Tobacco Use [...] a call back in order to r/s FACILITIES MECHANICAL DESIGN ENGINEER appt. Please contact at [phone] documented in this encounter Plan of Treatment Not on file documented as of this encounter Visit Diagnoses Not on filedocumented in this encounter Additional Health Concerns Assessment Noted Time PHQ-9 Depression Total Score: 8 08/26/19 24 11:49 AM EST documented as of this encounter Care Teams Metal Bonding Assembler Relationship Specialty Start Date End Date Rigoberto Us MD [address] [place] [address] PCP - General Internal Medicine 03/30/18 Timothy Broussard RN [address] [place] [address] Dry Cleaning TeacherFoxing Painter 12/26/23 04/07/[address] 3rd [place] [address] Gastroenterology 09/09/24 documented as of this encounter
== END 2024-10-15 10:46 | disposition home or self-care (01) ==
LOC: HO.HPS 10:29
PROVIDERS: PCP Nurse Practitioner Family; Visit Provider Hospitalist
DX: J96.11 Chronic respiratory failure with hypoxia (principal); R91.8 Other nonspecific abnormal finding of lung field; J43.2 Centrilobular emphysema; R06.09 Other forms of dyspnea
CPT/HCPCS: 99214; G2211

== ENCOUNTER → 2024-10-15 10:28 | Outpatient (BNVA) | payer MEDICARE, MEDICAID, SELFPAY | PROVIDERS: PCP Nurse Practitioner Family; Visit Provider Hospitalist | DX: J43.2 Centrilobular emphysema (principal); J96.11 Chronic respiratory failure with hypoxia; R91.8 Other nonspecific abnormal finding of lung field; Z99.81 Dependence on supplemental oxygen; Z87.891 Personal history of nicotine dependence | CPT/HCPCS: 99212 ==

== ENCOUNTER 2024-10-27 11:12 | Outpatient (AMB) | payer MEDICARE, MEDICAID, SELFPAY ==
--- NOTE | 2024-10-27 11:17 | MHC.OFFVIS ---
Vital Signs 10/27/24 11:27 Height 5 ft 11 in Weight 209 lb BMI 29.1 BP 117/87 Blood Pressure Location Rt brachial Position Sitting Pulse 72 Intake Visit Reasons: rectal polyp Intake Note: Patient referred by Dr. Gonzales for rectal polyp. Patient c/o: constipation. Taking linzess. Colonoscopy: 10-08-2024 Despatching And Receiving Clerk Required: No Accompanied by: Kim sister Allergies No Known Allergies [No Known Allergies*] Allergy (Verified 10/27/24 11:25) Medication List - Last Reconciled 10/27/24 by Don Gonzales MD acetaminophen 500 mg PO Q8H PRN albuterol sulfate 90 mcg/actuation 2 inhalations inhalation Q6H PRN 30 days albuterol sulfate 2.5 mg inhalation Q6H apixaban (Eliquis) 5 mg PO BID ascorbic acid (vitamin C) 250 mg PO DAILY cyclobenzaprine 10 mg PO TID PRN denosumab (Prolia) 60 mg subcut [id number] famotidine 40 mg PO BEDTIME ferrous gluconate 324 mg PO DAILY orwgywustrs-rhwglnexv-ueqlewsi 100-62.5-25 mcg (Trelegy Ellipta) 1 inh inhalation DAILY 30 days furosemide 20 mg PO DAILY latanoprost 0.005% 1 drp ophthalmic (eye) BEDTIME linaclotide (Linzess) 145 mcg PO QAM omeprazole 20 mg PO BID Oxygen Home Use As directed quetiapine 100 mg PO BEDTIME sertraline 25 mg PO DAILY simvastatin 20 mg PO QPM sotalol 80 mg PO Q12H sucralfate 20 mL PO BID trazodone 25 - 50 mg PO BEDTIME verapamil ER 120 mg PO QAM HPI HPI rectal polyp: Details: 69-year-old male referred for a rectal polyp. He had a colonoscopy done by Dr. Gonzales last 10/08/2024. He was noted to have a flat polyp in the distal rectum near the anal canal and this could not be endoscopically removed. Biopsies of this showed high-grade dysplasia so he was referred to me for excision The patient is on Eliquis because of atrial fibrillation. He is also on to supplement for COPD with his history of smoking. He is currently on 2 L/min. He uses the O2 supplement when he sleeps at night or when he is outside the house but most of the time, he says that he does not really use this at home. He also has a diagnosis of CHF. [facility] Medical History Compression fracture of lumbar vertebra Compression fracture of T9 vertebra Right clavicle fracture Dysphagia Compression fracture of body of thoracic vertebra Hematemesis with nausea Acute exacerbation of emphysema Chronic hypoxemic respiratory failure Nicotine dependence, cigarettes, uncomplicated Compression fracture of T7 vertebra Cervical spondylosis Bilateral tinnitus Ascending aorta dilatation Opacity of lung on imaging study Generalized anxiety disorder Edentulous Bipolar 1 disorder Emphysema lung BPH (benign prostatic hyperplasia) Osteoporosis Atrial fibrillation with rapid ventricular response History of alcohol abuse Nonischemic cardiomyopathy Tubular adenoma of colon Pulmonary nodules COPD (chronic obstructive pulmonary disease) Hyperlipidemia COPD (chronic obstructive pulmonary disease) GERD (gastroesophageal reflux disease) Depression Hypertension Surgical History Hx of cystoscopy Hx of kyphoplasty History of surgery on left wrist (~03/21/10) Hx of endoscopy Hx of colonoscopy (~02/13/06) Hx of cataract surgery (~07/02/10) History of appendectomy History of gastric surgery Family History Mother Renal failure Father History of depression Brother Colon cancer Social History Household Members: Significant Other Housing: House Are you a primary critical care technician to a significant other at home: No Do you presently have visiting nurse or other home services: No Alcohol intake: never Patient Tobacco Use Status: Former Tobacco user Tobacco use type: Cigarette Cigarette Packs Per Day: 0.5 Years Smoked: 55 e-Cigarette/Vaping Use: Former Use Second Hand Smoke Exposure: No Advance Directives Date on File: 09/02/22 service: No Current occupational status: unemployed and disabled 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 Review of Systems Const Denies chills and Denies fever(s) Card Denies chest pain, Reports dyspnea and Reports dyspnea on exertion Resp Denies cough, Reports dyspnea and Reports dyspnea on exertion GI Denies hematochezia, Denies change in bowel habits and Reports constipation Denies hematuria and Denies difficulty urinating Musc Denies back pain and Denies limited range of motion Neuro Denies focal weakness and Denies convulsions Psych Denies depression and Denies mood swings Physical Exam Vital Signs: Last Vital Signs Pulse 72 10/27/24 11:27 BP 117/87 10/27/24 11:27 BMI result Body Mass Index 29.1 Const General: comfortable and no acute distress Orientation/consciousness: patient oriented x3 Neck Neck: Yes no lymphadenopathy Resp Other: On O2 by nasal cannula Auscultation: clear to auscultation bilaterally Cardio Rhythm: regular rhythm GI Other: Rectal exam shows no perianal lesions Palpation (GI): Soft to palpation, nontender and no guarding Neuro General: patient oriented x3 Office Procedures Anoscopy He was in royce-knife position. The anoscope was gently inserted. A full examination of the anal canal was done. He did have some hemorrhoidal tissue appeared to be mostly internal. I could not clearly identify the polyp described on colonoscopy. He did have some stool in the areas so this affected visualization. There was no induration. There was no fissure ulceration. There was no bleeding. [id number] Assessment & Plan Assessment & Plan (1) Rectal polyp: Code(s): K62.1 - Rectal polyp Category: Medical Plan: He had a rectal polyp described as being near the anal verge, about 15 mm in size. This could not be removed endoscopically because of the location and because of friability. I could not clearly identify this polyp on anoscopy but there were some stool in the area. In view of the the presence of high-grade dysplasia, it may be best to proceed with exam under anesthesia and trans anal excision of the rectal polyp. I explained to him the technique of this procedure. I reviewed the risks including but not limited to bleeding, infections, postop pain, as well as the benefits and alternatives. He does have significant comorbid conditions including CHF, COPD, and atrial fibrillation. I will therefore schedule him for a PAT as well before the surgery. He understands he will need to stop his Eliquis prior to his procedure for about 2 days. Coding Level of Care Code New Pt Level 3 (71826) Diagnoses Rectal polyp K62.1 CPT Codes Details - CPT: 17463-Nqhnemob ([id number])
[2024-10-27 11:27] VITALS: BP 117/87; PULSE 72; BMI 29.1
--- OUTSIDE RECORDS SUMMARY | 2024-10-27 12:37 | XMS_ITS | Encounter Summary ---
Author Organization [employer] Address 75 [facility] 7t [place] [address] Care Team Providers Care Bet Taker Name Role Phone Rigoberto Us MD Primary Care Provide r Timothy Broussard RN Unavailable [phone] September Unavailable Encounter Details Date Type Department Care Team (Late st Contact Info) Description 10/31/2022 Abstract [facility] MEDICINE [address] [place], [place] [phone] Rigoberto Us MD 230 [place], [place] [phone] Social History Tobacco Use Types Packs/Day Years [...] on filedocumented in this encounter Care Teams Bet Taker Relationship Specialty Start Date End Date Rigoberto Us MD 230 [place], [place] [phone] PCP - General Internal Medicine 03/30/18 Timothy Broussard, GIANNA [address] [place] [address] Lead Informatica DeveloperMonument Setter 12/26/23 04/07/[address] [place] [address] 3rd [place] [address] Gastroenterology 09/09/24 documented as of this encounter
--- OUTSIDE RECORDS SUMMARY | 2024-10-27 12:37 | XMS_ITS | Encounter Summary ---
Author Organization [employer] Address [address] [facility] [address] 7t [place] [address] Care Team Providers Care Education Managers Name Role Phone Rigoberto Us MD Primary Care Provide r Timothy Broussard RN Unavailable [phone] September Unavailable Reason for Visit * Reason Onset Date Comments Call Back Request 01/22/2024 Encounter Details Date Type Department Care Team ([facility] st Contact Info) Description 01/22/2024 Telephone [facility] MEDICINE 230 [place], [place] [phone] Rigoberto Us MD 230 [place], [place] [phone] Call Back Request Social History Tobacco Use [...] a call back in order to r/s ASSISTANT WAREHOUSE MANAGER appt. Please contact at [phone] documented in this encounter Plan of Treatment Not on file documented as of this encounter Visit Diagnoses Not on filedocumented in this encounter Additional Health Concerns Assessment Noted Time PHQ-9 Depression Total Score: 8 08/26/19 24 11:49 AM EST documented as of this encounter Care Teams Education Managers Relationship Specialty Start Date End Date Rigoberto Us MD 230 [place] [address] PCP - General Internal Medicine 03/30/18 Timothy Broussard RN [address] [place] [address] Conflict Resolution ProfessionalBilingual Inside Sales Representative 12/26/23 04/07/[address] 3rd [place] [address] Gastroenterology 09/09/24 documented as of this encounter
--- OUTSIDE RECORDS SUMMARY | 2024-10-27 12:37 | XMS_ITS | Encounter Summary ---
Author Organization [employer] Address [address] [facility] 7t [place] [address] Care Team Providers Care Solar Energy Engineer Name Role Phone Rigoberto Us MD Primary Care Provide r Timothy Broussard RN Unavailable [phone] September Unavailable Reason for Visit * Reason Onset Date Comments Lab Orders 08/30/2022 Encounter Details Date Type Department Care Team (Late st Contact Info) Description 08/30/2022 Telephone [facility] MEDICINE 230 [place] [address] Rigoberto Us MD 230 [place], [place] [phone] Lab Orders Social History Tobacco Use Types [...] - 08/30/2022 11:19 AM EST [place] [facility] an order for a lumbar spine for pt documented in this encounter Plan of Treatment Not on file documented as of this encounter Visit Diagnoses Not on filedocumented in this encounter Care Teams Solar Energy Engineer Relationship Specialty Start Date End Date Rigoberto Us MD 230 [place] [address] PCP - General Internal Medicine 03/30/18 Timothy Broussard, GIANNA [address] [place] [address] Supervisor Malted MilkShredder Picker 12/26/23 04/07/[address] [place] [address] 3rd [place] [address] Gastroenterology 09/09/24 documented as of this encounter
--- OUTSIDE RECORDS SUMMARY | 2024-10-27 12:37 | XMS_ITS | Encounter Summary ---
Author Organization [employer] Address 75 [facility] [address]t [place] [address] Care Team Providers Care Winding Inspector Name Role Phone Rigoberto Us MD Primary Care Provide r Timothy Broussard RN Unavailable [phone] September Unavailable Encounter Details Date Type Department Care Team (Late st Contact Info) Description 10/04/2022 Orders Only [facility] MEDICINE 230 [place] [address] Demi Garcia, RN 230 [place] [address] Social History Tobacco Use Types Packs/Day Years [...] on filedocumented in this encounter Care Teams Winding Inspector Relationship Specialty Start Date End Date Rigoberto Us MD 230 [place] [address] PCP - General Internal Medicine 03/30/18 Timothy Broussard, GIANNA [address] [place] [address] Marshmallow RunnerTanner Rotary Drum Continuous Process 12/26/23 04/07/24 [address] [place] [address] 3rd [place] [address] Gastroenterology 09/09/24 documented as of this encounter
--- OUTSIDE RECORDS SUMMARY | 2024-10-27 12:37 | XMS_ITS | Clinical Summary ---
Author Organization [email or web address] Address [address] [facility] 7t [place] [address] Care Team Providers Care Chimney Builder Brick Name Role Phone Rigoberto Us MD Primary [...] Pt here for a HDF Admitted to [facility] from 12/11-12/16/2023 after he presented for evaluation [...] PM EST): S/P kyphoplasty by IR at [facility] 09/20/2022 For pain control I have prescribed Oxycodone Diagnostic work up for secondary causes of osteoporosis unrevealing He is on Calcium and Vitamin D On Tymlos Evaluated by Endocrinology , last seen 05/18/2024. Assessment & Plan (12/02/2023 10:17 AM EDT): S/P kyphoplasty by IR at [facility] 09/20/2022 For pain control I have prescribed Oxycodone Diagnostic work up for secondary causes of osteoporosis unrevealing He is on Calcium and Vitamin D On Tymlos Evaluated by Endocrinology , last seen 08/14/2023 has a follow up in January Assessment & Plan (08/26/2023 11:31 AM EST): S/P kyphoplasty by IR at [facility] 09/20/2022 For pain control I have prescribed Oxycodone Diagnostic work up for secondary causes of osteoporosis unrevealing He is on Calcium and Vitamin D On Tymlos Evaluated by Endocrinology , last seen 08/14/2023 Assessment & Plan (02/04/2023 11:43 AM EDT): S/P kyphoplasty by IR at [facility] 09/20/2022 For pain control I have prescribed [...] and facet arthritis pt already following w laborer [facility] receiving Tymlos (abaloparatide)-states was not receiving lately x issues with pharmacy but to resume now -pt takes med to [facility] for med administration -advised to continue w [...] PM EDT): S/P kyphoplasty by IR at [facility] 09/20/2022 For pain control I have prescribed Oxycodone but he stopped taking it Today he describes his pain at 7/10 when severe 10/10 Diagnostic work up for secondary causes of osteoporosis unrevealing He is on Calcium and Vitamin D Started on Tymlos, followed by Endocrinology Seen at [facility] On 03/19/23: Kyphon Balloon Kyphoplasty with Insertion of HV-R Bone Cement, L1 and L2 Vertebral Bodies: with 80% relief. Last seen at [facility] 10/24/2023 Scheduled for fluoroscopy guided diagnostic left L3-L4 DR L5 medial branch blocks with local anesthetic. Plan: Continue Flexeril and MS Contin 15 mg po BID risk discussed particularly around somnolence , sedation and counseled about fall prevention Assessment & Plan (12/02/2023 10:20 AM EDT): S/P kyphoplasty by IR at [facility] 09/20/2022 For pain control I have prescribed Oxycodone but he stopped taking it Today he describes his pain at 7/10 when severe 10/10 Diagnostic work up for secondary causes of osteoporosis unrevealing He is on Calcium and Vitamin D Started on Tymlos, followed by Endocrinology Seen at [facility] On 03/19/23: Kyphon Balloon Kyphoplasty with Insertion of HV-R Bone Cement, L1 and L2 Vertebral Bodies: with 80% relief. Last seen at [facility] 10/24/2023 Scheduled for fluoroscopy guided diagnostic left L3-L4 DR L5 medial branch blocks with local anesthetic. Plan: Continue Flexeril Start MS Contin 15 mg po BID risk discussed particularly around somnolence , sedation and counseled about fall prevention Assessment & Plan (04/22/2023 11:28 AM EDT): S/P kyphoplasty by IR at [facility] 09/20/2022 For pain control I have prescribed [...] AM EDT): S/P kyphoplasty by IR at [facility] 09/20/2022 For pain control I have prescribed [...] Patient is undergoing kyphoplasty by IR at [facility] tomorrow 09/20/2022 For pain control I have [...] AM EDT): S/P kyphoplasty by IR at [facility] 09/20/2022 For pain control I have prescribed [...] for a f/u He was seen by pathology specialist at [facility] He tells me he was given injections [...] BID, He was advised to f/u with [facility] Pt reports he is still drinking on [...] for a HDF He presented again to [facility] from 05/30 until 06/01 with c/o increased [...] EDT): Under the care of Dasia Soni [facility] Assessment & Plan (12/02/2023 11:34 AM EDT): Under the care of Dasia Soni [facility] On Seroquel 300 mg po qhs Bupropion and Trazodone 100 mg po qhs per his report Assessment & Plan (04/22/2023 11:41 AM EDT): Under the care of Dasia Soni [facility] On Seroquel 300 mg po qhs Bupropion and Trazodone 100 mg po qhs per his report Assessment & Plan (06/04/2022 9:09 AM EST): Under the care of Dasia Soni [facility] On Seroquel 300 mg po qhs [...] EDT): Under the care of Dasia Soni [facility] Serandrew nd Trazodone were discontinued in the Hospital due to prolongued Qtc He is now on Sertraline 25 mg po daily Assessment & Plan (01/08/2024 1:41 PM EDT): Under the care of Dasia Soni [facility] Seroanca nd Trazodone were discontinued in the Hospital due to prolongued Qtc He is now on Sertraline 25 mg po daily Assessment & Plan (12/02/2023 11:36 AM EDT): Under the care of Dasia newell [facility] On Seroquel 300 mg po qhs Bupropion and Trazodone 100 mg po qhs per his report Assessment & Plan (04/22/2023 11:41 AM EDT): Under the care of Dasia newell [facility] On Seroquel 300 mg po qhs Bupropion and Trazodone 100 mg po qhs per his report Assessment & Plan (06/04/2022 9:09 AM EST): Under the care of Dasia Soni [facility] Tubular adenoma of colon 03/10/2018 Assessment [...] going into A.fib Pt was cleared by [facility] 06/01 and is awaiting GI appointment for [...] A.fib Pt has now been cleared by [facility] 06/01 and is awaiting GI appointment for [...] of Trelegy and Ventolin Dr Pisano his packaging assembler mentioned in a previous note that patient [...] of Trelegy and Ventolin Dr Pisano his packaging assembler mentioned in a previous note that patient [...] scarring related to pneumonia Dr Pisano his packaging assembler mentioned in a previous note that patient [...] scarring related to pneumonia Dr Pisano his packaging assembler mentioned in a previous note that patient [...] Pt was seen by Dr Pisano his packaging assembler 08/2022 he mentioned in his note that [...] Pt was seen by Dr Pisano his packaging assembler 08/2022 he mentioned in his note that [...] Pt was seen by Dr Pisano his packaging assembler 08/2022 he mentioned in his note that [...] Pt was seen by Dr Pisano his packaging assembler 05/21/2022 who recommended a repeat Chest CT [...] Provider, Generic External Data 09/14/2024 Orders Only [facility] Information Management [address] [place] [address] Elmira Stanley MD 09/13/2024 Telephone [facility] [address] [place] [address] Rigoberto Us MD Appointment Request 09/09/2024 2:00 PM EDT Office Visit [facility] [place] [address] Rigoberto Us MD Microscopic hematuria (Primary Dx); Pain in both testicles; Pulmonary nodule; Centrilobular emphysema (CMS/HCC); Tubular adenoma of colon; Non-ischemic cardiomyopathy (CMS/HCC); Primary hypertension; Atrial fibrillation, unspecified type (CMS/HCC); 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); Ascending aorta dilatation (CMS/HCC) 09/09/2024 Travel 09/03/2024 Population Health Risk Score [facility] () Department [address] [place] [address] [phone] Provider, [facility] Generic 09/01/2024 Telephone [facility] [place] [address] Rigoberto Us MD Chart Prep 08/22/2024 Refill [facility] [place] [address] Windy Paula MD 08/06/2024 Telephone [facility] [address] [place] [address] Rigoberto Us MD Results 08/04/2024 Refill [facility] [place] [address] Rigoberto Us MD from Last 3 Months Immunizations Name Administration [...] enough money to get more: Never True 10/ Transportation Answer Date Recorded In the past [...] Routine 07/31/2024 9:24 AM EST Microscopic hematuria HM COLONOSCOPY Routine 04/23/2024 LIPID PANEL, STANDARD Routine 03/23/2021 9:05 AM EDT from Last 3 Months or Most Recently Relevant to Health Maintenance Results * Hematoxylin and Eosin Stain (10/08/2024 10:34 AM EDT) 10/08/2024 10:3 4 AM EDT 10/08/2024 12:24 PM EDT [facility] - 10/13/2024 4:16 PM EDT ----- ------- Name: Avery Ware ? Age/Sex: 69/M ? : 1955 Unit#: [id number] ?? Attend Dr: Luca Gonzales MD ?Re10/08/24 ?Status: DEP SDC ? Location: HO.SSS ?Disch: ? ----- ------- SPEC : [id number] ? RECD: 10/08/24-4 ? STATUS: ??SOUT ? REQ NUM: [id number] ? FRANCOIS: 10/08/24-4 ? SUBM DR: Luca [...] microscopic examination, 3 pieces in cassette B. ([facility]) This case was reviewed intradepartmentally. Copies To: ?? Rigoberto Madrigal MD ?? [facility] ?? [address] ?? [place] [address] ?? [phone] ? CONTINUED ON NEXT PAGE ----- ------- Name: Avery Ware ? Age/Sex: 69/M ? : 1955 Unit#: [id number] ?? Attend Dr: Luca Gonzales MD ?Re10/08/24 ?Status: DEP SDC ? Location: HO.SSS ?Disch: ? ----- ------- SPEC : [id number] ? RECD: 10/08/24-4 ? STATUS: ??SOUT ? REQ NUM: [id number] ? FRANCOIS: 10/08/24-1034 ? SUBM DR: Luca Gonzales MD ? ENTERED: ??10/08/24-1230 ?SP TYPE: Surgical ? OTHR DR: Rigoberto Madrigal MD ?? ORDERED: ??HE Stain/6, Gross Micro L4/2 ? Copies To: ??(Continued) ?? Luca Gonzales MD ?? [facility] Gastroenterology [facility] ?? [address] ?? [place] [address] ?? [phone] ----- ------- Signed (signature on file) Kristian Cabral MD 10/13/24 5229 ? ----- ------- ? END OF REPORT ? us Generic External Data Provider LAB BLOOD ORDERAB LES Final Result [facility] [address] [facility] [place] [address] [phone] * CT Chest w/o Contrast (09/30/2024 8:37 AM EDT) Anatomical Region Laterality Modality Body, Chest Computed Tomogra phy 09/30/2024 8:37 AM EDT Narrative 09/30/2024 9:36 AM EDT ? [facility] ?[address] ?[place] [address] ? CT Scan Report ? Signed ? Patient: Bosch Soni,Avery ?MR#: ?? [id number] ? : 1955 ?Acct:[id number] ? Age/Sex: 69 / M ?ADM Date: 09/30/24 ? Loc: HO.CT ? Attending Dr: Layton [place] MD ? Ordering Physician: Layton [place] MD ?? Date of Service: 09/30/24 ?? Procedure(s): CT chest wo IV con ?? Accession Number(s): [id number] ? cc: Rigoberto Madrigal MD; Layton [place] MD ? Report Number: ?? [id number]: Total DLP = ??146.00 mGy-cm ?? EXAMINATION: [...] DLP: 146 mGy centimeter. ? FINDINGS: ? VALET CASHIER: Volume loss, right lung. Cardiomediastinal structures towards [...] by Samuel Garcia MD in OV> ? 09/30/24932 ? DD/ 0837 ? TD/TT: 09/30/24 0845 ? Supply Room Clerk: ? Procedure Note Donottigreter, Image - 09/30/[address] [address] [address] Scan Report Signed Patient: Avery WareMR#: [id number] : 1955cct:[id number] Age/Sex: 69 / MADM Date: 09/30/24 Loc: HO.CT Attending Dr: Layton [place] MD Ordering Physician: Layton [place] MD Date of Service: 09/30/24 Procedure(s): CT chest wo IV con Accession Number(s): [id number] cc: Rigoberto Madrigal MD; Layton [place] MD Report Number: [id number]: Total DLP = 146.00 mGy-cm EXAMINATION: CT [...] reconstruction technique. DLP: 146 mGy centimeter. FINDINGS: VALET CASHIER: Volume loss, right lung. Cardiomediastinal structures towards [...] Samuel Andre MD 09/30/2024 09:33 AM EDT Dictated By: Samuel Caldwell MD Signed By: <Electronically signed by Samuel Garcia MDin OV> 09/30/24 0933 DD/ 0837 TD/TT: 09/30/24 0845 Supply Room Clerk: Benjamin [facility] External Provider IMG CT PROCEDURES Final Result * PET/CT Bone Skull Base to Mid Thigh (08/15/2024 11:35 AM EST) Anatomical Region Laterality Modality Body Computed Tomogra phy us Historical Provider MD KNAPP CT PROCEDURES Final R esult * US RENAL BI (07/31/2024 9:24 AM EST) Anatomical Region Laterality Modality Abdomen Ultrasound 07/31/2024 9:24 AM EST Narrative 07/31/2024 9:26 AM EST ? [facility] ?[address] ?[place] [address] ? Ultrasound Report ? Signed ? Patient: Bosch Zachariah,Avery ?MR#: ?? [id number] ? : 1955 ?Acct:[id number] ? Age/Sex: 69 / M ?ADM Date: 07/30/24 ? Loc: HO.US ? Attending Dr: Milena SAHU ? Ordering Physician: Milena Lopez ?? Date of Service: 07/30/24 ?? Procedure(s): US renal BI ?? Accession Number(s): [id number] ? cc: Milena Lopez ? CLINICAL HISTORY: [...] ? DD/ 3 ? TD/TT: 07/31/24923 ? Supply Room Clerk: ? Procedure Note Desiree Jimenez - 07/31/[address] [address] Ultrasound Report Signed Patient: Nury Ware#: [id number] : 4Acct:[id number] Age/Sex: 69 / MADM Date: 07/30/24 Loc: HO.US Attending Dr: Milena SAHU Ordering Physician: Milena Lopez Date of Service: 07/30/24 Procedure(s): US renal BI Accession Number(s): [id number] cc: Milena Lopez CLINICAL HISTORY: chrronic left [...] in OV> 07/31/24924 DD/ 3 TD/TT: 07/31/24923 Supply Room Clerk: Milena SAHU IM US PROCEDURES Edited Resul t - Final * Hm Colonoscopy (04/23/2024) Pathologist [facility] Colonoscopy Normal Normal Historical Provider HEALTH MAINTENANCE [...] ?? LDL-C is now calculated using the Rodolfo-Young ?? calculation, which is a validated novel method providing ?? better accuracy than the Friedewald equation in the ?? estimation of LDL-C. ?? Rodolfo SS et al. OLIVIER. 2013;310(19): 4255-9086 ?? (http://education.StatsMix/faq/OQE553) Non-HDL Cholesterol 100 <130 mg/dL (calc) [facility] Comment: For patients with diabetes plus 1 major ASCVD risk ?? factor, treating to a non-HDL-C goal of <100 mg/dL ?? (LDL-C of <70 mg/dL) is considered a therapeutic ?? option. Triglycerides 78 <150 mg/dL [facility] 03/23/2021 9:05 AM EDT us Rigoberto Ramirez MD LAB BLOOD ORDERABLES Final Result [facility] [address] from Last 3 Months or Most Recently Relevant to Health Maintenance Insurance [facility] STANDARD MEDICARE Care Teams Chimney Builder Brick Relationship Specialty Start Date End Date Rigoberto Us MD [address] [place] [address] [place] [address] PCP - General Internal Medicine 03/30/18September [address] [place] [address] 3rd [place] [address] Gastroenterology 09/09/24
--- OUTSIDE RECORDS SUMMARY | 2024-10-27 12:37 | XMS_ITS | Encounter Summary ---
Author Organization [employer] Address [address] [facility] [address] 7t [place] [address] Care Team Providers Care Vice President Digital Strategist Name Role Phone Rigoberto Us MD Primary Care Provide r September Reason for Visit * Reason Onset Date Comments Medication Question 05/25/2024 Encounter Details Date Type Department Care Team ([facility] st Contact Info) Description 05/25/2024 Telephone [facility] MEDICINE [address] [place], [place] [phone] Rigoberto Us MD [address] [place], [place] [phone] Medication Question Social History Tobacco Use Types [...] he's pain don't go away. Callback number [phone] (liberian) documented in this encounter Plan of Treatment Not on file documented as of this encounter Visit Diagnoses Not on filedocumented in this encounter Additional Health Concerns Assessment Noted Time PHQ-9 Depression Total Score: 8 08/26/19 24 11:49 AM EST documented as of this encounter Care Teams Vice President Digital Strategist Relationship Specialty Start Date End Date Rigoberto Us MD [address] [place] [address] PCP - General Internal Medicine 03/30/18September [address] [place] [address] 3rd [place] [address] Gastroenterology 09/09/24 documented as of this encounter
--- OUTSIDE RECORDS SUMMARY | 2024-10-27 12:37 | XMS_ITS | Encounter Summary ---
Author Organization [employer] Address [address] [facility] [address] 7t [place] [address] Care Team Providers Care Transactional Attorney Name Role Phone Rigoberto Us MD Primary Care Provide r Timothy Broussard RN Unavailable [phone] September Unavailable Reason for Visit * Reason Onset Date Comments Reschedule 01/12/2024 Encounter Details Date Type Department Care Team ([facility] st Contact Info) Description 01/12/2024 Telephone [facility] [address] [place] [address] Rigoberto Us MD [address] [place], [place] [phone] Reschedule Social History Tobacco Use Types Packs/Day [...] EDT Tc from sister calling requesting r/s PIPE PRODUCTION WORKER appt, she will bring him to the appt however this day shewill be busy. documented in this encounter Plan of Treatment Not on file documented as of this encounter Visit Diagnoses Not on filedocumented in this encounter Additional Health Concerns Assessment Noted Time PHQ-9 Depression Total Score: 8 08/26/19 24 11:49 AM EST documented as of this encounter Care Teams Transactional Attorney Relationship Specialty Start Date End Date Rigoberto Us MD [address] [place] [address] PCP - General Internal Medicine 03/30/18 Timothy Broussard RN [address] [place] [address] Socket PullerLaborer Cutting Tool 12/26/23 04/07/24 Kathy Nelda [address] 3rd [place] [address] Gastroenterology 09/09/24 documented as of this encounter
--- OUTSIDE RECORDS SUMMARY | 2024-10-27 12:37 | XMS_ITS | Encounter Summary ---
Author Organization [employer] Address [address] [facility] [address] 7t [place] [address] Care Team Providers Care Websphere Portal Developer Name Role Phone Rigoberto Us MD Primary Care Provide r Timothy Broussard RN Unavailable [phone] September Unavailable Encounter Details Date Type Department Care Team (Late st Contact Info) Description 10/17/2023 Orders Only [facility] MED[facility] [address] [place] [address] ProviderElmira MD Social History Tobacco Use Types Packs/Day Years [...] Time PHQ-9 Depression Total Score: 8 08/26/19 11:49 AM EST documented as of this encounter Care Teams Websphere Portal Developer Relationship Specialty Start Date End Date Rigoberto Us MD [address] [place] [address] PCP - General Internal Medicine 03/30/18 Tmiothy Broussard RN [address] [place] [address] Hair WorkerLadle Puller 12/26/23 04/07/24[address] 3rd [place] [address] Gastroenterology 09/09/24 documented as of this encounter
--- OUTSIDE RECORDS SUMMARY | 2024-10-27 12:37 | XMS_ITS | Encounter Summary ---
Author Organization [employer] Address [address] [facility] 7t [place] [address] Care Team Providers Care Corsage Maker Name Role Phone Rigoberto Us MD Primary Care Provide r September Encounter Details Date Type Department Care Team ([facility] Contact Info) Description 09/14/2024 Orders Only [facility] Information Management [address] [place], [place] [phone] Provider, MD Elmira Social History Tobacco Use [...] EDT ? [facility] ?[address] ?[place] [address] ? CT Scan Report ? Signed ? Patient: Hiro Soni,Avery ?MR#: ?? [id number] ? : 1955 ?Acct:[id number] ? Age/Sex: 69 / M ?ADM Date: 09/30/24 ? Loc: HO.CT ? Attending Dr: Layton [place] MD ? Ordering Physician: Layton [place] MD ?? Date of Service: 09/30/24 ?? Procedure(s): CT chest wo IV con ?? Accession Number(s): [id number] ? cc: Rigoberto Madrigal MD; Layton [place] MD ? Report Number: ?? [id number]: Total DLP = ??146.00 mGy-cm ?? EXAMINATION: [...] DLP: 146 mGy centimeter. ? FINDINGS: ? JUNIOR GRAPHIC DESIGNER: Volume loss, right lung. Cardiomediastinal structures towards [...] DD/ 0837 ? TD/TT: 09/30/24 0845 ? Occupational Therapy Teacher: ? Procedure Note Barbara, Image - 09/30/[address] [place] [address] [address] Scan Report Signed Patient: Avery WareMR#: [id number] : 4Acct:[id number] Age/Sex: 69 / MADM Date: 09/30/24 Loc: HO.CT Attending Dr: Layton [place] MD Ordering Physician: Layton [place] MD Date of Service: 09/30/24 Procedure(s): CT chest wo IV con Accession Number(s): [id number] cc: Rigoberto Madrigal MD; Layton [place] MD Report Number: [id number]: Total DLP = 146.00 mGy-cm EXAMINATION: CT [...] reconstruction technique. DLP: 146 mGy centimeter. FINDINGS: JUNIOR GRAPHIC DESIGNER: Volume loss, right lung. Cardiomediastinal structures towards [...] Garcia MDin OV> 09/30/2433 DD/ TD/TT: 09/30/2445 Occupational Therapy Teacher: [facility] External Provider IMG CT PROCEDURES Final [...] documented as of this encounter Care Teams Corsage Maker Relationship Specialty Start Date End Date Rigoberto Us MD [address] [place] [address] PCP - General Internal Medicine 03/30/18[address] [place] [address] 3rd [place] [address] Gastroenterology 09/09/24 documented as of this encounter
--- OUTSIDE RECORDS SUMMARY | 2024-10-27 12:37 | XMS_ITS | Encounter Summary ---
Author Organization [employer] Address [address] [facility] [address] [place] [address] Care Team Providers Care Pole Frame Construction Worker Name Role Phone Rigoberto Us MD Primary Care Provide r Timothy Broussard RN Unavailable [phone] September Unavailable Reason for Visit * Reason Onset Date Comments Med Refill 02/16/2024 Encounter Details Date Type Department Care Team (Late st Contact Info) Description 02/16/2024 Telephone [facility] [address] [place], [place] [phone] Rigoberto Us MD [address] [place], [place] [phone] Med Refill Social History Tobacco Use Types [...] 12 hr tablet To be sent to: [id number] [place], [place] - [address] [place] [address] documented in this encounter Plan of Treatment Not on file documented as of this encounter Visit Diagnoses Not on filedocumented in this encounter Additional Health Concerns Assessment Noted Time PHQ-9 Depression Total Score: 8 08/26/19 24 11:49 AM EST documented as of this encounter Care Teams Pole Frame Construction Worker Relationship Specialty Start Date End Date Rigoberto Us MD [address] [place] [address] PCP - General Internal Medicine 03/30/18 iTmothy Broussard RN [address] [place] [address] Napper GrinderLock Tender 12/26/23 04/07/[address] 3rd [place] [address] Gastroenterology 09/09/24 documented as of this encounter
--- OUTSIDE RECORDS SUMMARY | 2024-10-27 12:37 | XMS_ITS | Encounter Summary ---
Author Organization [employer] Address [address] [facility] [address] 7t [place] [address] Care Team Providers Care Digital Marketer Name Role Phone Rigoberto Us MD Primary Care Provide r Timothy Broussard RN Unavailable [phone] September Unavailable Encounter Details Date Type Department Care Team (Latest Contact Info) Description 10/12/2020 Abstract C CONVERSIONS Dental, Provider, DDS Social History Tobacco [...] on filedocumented in this encounter Care Teams Digital Marketer Relationship Specialty Start Date End Date Rigoberto Us MD [address] [place] [address] PCP - General Internal Medicine 03/30/18 Timothy Broussard, RN [address] [place] [address] Turbine Room AttendantClinical Mental Health Counselor 12/26/23 04/07/24[address] 3rd [place] [address] Gastroenterology 09/09/24 documented as of this encounter
--- OUTSIDE RECORDS SUMMARY | 2024-10-27 12:37 | XMS_ITS | Encounter Summary ---
Author Organization [employer] Address [address] 7t [place] [address] Care Team Providers Care Prop Attendant Name Role Phone Rigoberto Us MD Primary Care Provide r Timothy Broussrad RN Unavailable [phone] September Unavailable Encounter Details Date Type Department Care Team (Late st Contact Info) Description 05/29/2022 Abstract [facility] [address] [place] [address] Provider, MD [place] Social History Tobacco Use [...] on filedocumented in this encounter Care Teams Prop Attendant Relationship Specialty Start Date End Date Rigoberto Us MD 230 [place] [address] PCP - General Internal Medicine 03/30/18 Timothy Broussard, GIANNA [address] [place] [address] Tarp RepairerBiology Internship 12/26/23 04/07/24September [address] 3rd [place] [address] Gastroenterology 09/09/24 documented as of this encounter
== END 2024-10-27 11:59 | disposition home or self-care (01) ==
LOC: HO.HGS 11:12
PROVIDERS: PCP Nurse Practitioner Family; Visit Provider Surgery
DX: K64.8 Other hemorrhoids (principal)
CPT/HCPCS: 46600; 99203

== ENCOUNTER → 2024-10-27 11:12 | Outpatient (BNVA) | payer MEDICARE, MEDICAID, SELFPAY | PROVIDERS: PCP Nurse Practitioner Family; Visit Provider Surgery | DX: K62.1 Rectal polyp (principal); I48.91 Unspecified atrial fibrillation; J44.9 Chronic obstructive pulmonary disease, unspecified; I50.9 Heart failure, unspecified; Z99.81 Dependence on supplemental oxygen; Z87.891 Personal history of nicotine dependence; Z79.01 Long term (current) use of anticoagulants | CPT/HCPCS: 46600; 99202 ==

== ENCOUNTER 2024-11-02 09:06 | Outpatient (REF) | payer MEDICARE, MEDICAID, SELFPAY ==
--- NOTE | ~2024-11-02 | MM_ITS ---
EXAMINATION: DXA BONE DENSITY AXIAL HISTORY: M81.0 - Age-related osteoporosis without current pathological fracture TECHNIQUE: [employer] Dual energy absorptiometry (DEXA) of the lumbar spine, total left hip, and femoral neck was performed. COMPARISON: Comparison is made with the prior examination dated 09/26/2022. FINDINGS: The bone mineral density of the lumbar spine is 0.982 with a T-score of -2.1, and a Z-score of -2.1. This is indicative of osteopenia. This represents a BMD change of 11.9% compared to the prior exam. This is statistically significant. The bone mineral density of the left total hip is 0.794 with a T-score of -2.1, and a Z-score of -1.7. This is indicative of osteopenia. This represents a BMD change of -1.2% compared to the prior exam. This is not statistically significant. The bone mineral density of the left femoral neck is 0.723 with a T-score of -2.7, and a Z-score of -1.8. This is indicative of osteoporosis. This represents a BMD change of -1.9% compared to the prior exam. FRACTURE RISK: The FRAX index suggests a ten year probability of major osteoporotic fracture of 15.4%, and of hip fracture 6.6%. MM/XR DEXA axial skeleton IMPRESSION: Based on bone mineral density, and according to World Health Organization (WHO) criteria, the diagnosis is consistent with osteoporosis. All bone density values are in grams per centimeter squared (g/cm2). Statistically, 68% of repeat scans fall within 1 SD (+/- 0.010 g/cm2 for AP spine L1-L4) and 1 SD (+/- 0.012 g/cm2 for femur total) FRAX is a trademark of the [employer]'s [place] for Metabolic Bone Disease, a World Health Organization (WHO) Collaborating Center. Electronically signed by: Xavier Ma MD 11/02/2024 10:17 AM EDT
--- OUTSIDE RECORDS SUMMARY | 2024-11-02 09:34 | XMS_ITS | Encounter Summary ---
Author Organization [employer] Address [address] [facility] 7t [place] [address] Care Team Providers Care Clay Pigeon Setter Name Role Phone Rigoberto Us MD Primary Care Provide r Timothy Broussard RN Unavailable [phone] September Unavailable Reason for Visit * Reason Onset Date Comments Lab Orders 08/30/2022 Encounter Details Date Type Department Care Team (Late st Contact Info) Description 08/30/2022 Telephone [facility] 230 [place] [address] Rigoberto Us MD 230 [place], [place] [phone] Lab Orders Social History Tobacco Use Types [...] - 08/30/2022 11:19 AM EST T[place] [facility] [place] requesting an order for a lumbar spine for pt documented in this encounter Plan of Treatment Not on file documented as of this encounter Visit Diagnoses Not on filedocumented in this encounter Care Teams Clay Pigeon Setter Relationship Specialty Start Date End Date Rigoberto Us MD 230 [place] [address] PCP - General Internal Medicine 03/30/18 Timothy Broussard, GIANNA [address] [place] [address] Assistant Manager Airside OperationsDry Pan Operator 12/26/23 04/07/[address] [place] [address] 3rd [place] [address] Gastroenterology 09/09/24 documented as of this encounter
--- OUTSIDE RECORDS SUMMARY | 2024-11-02 09:34 | XMS_ITS | Encounter Summary ---
Author Organization [employer] Address [address] [facility] 7t [place] [address] Care Team Providers Care Oracle E Business Developer Name Role Phone Rigoberto Us MD Primary Care Provide r Timothy Broussard RN Unavailable [phone] September Unavailable Encounter Details Date Type Department Care Team (Late st Contact Info) Description 10/31/2022 Abstract [facility]INE 230 [place], [place] [phone] Rigoberto Us MD 230 [place], [place] [phone] Social History Tobacco Use Types Packs/Day Years [...] on filedocumented in this encounter Care Teams Oracle E Business Developer Relationship Specialty Start Date End Date Rigoberto Us MD 230 [place], [place] [phone] PCP - General Internal Medicine 03/30/18 Timothy Broussard, GIANNA [address] [place] [address] Sheet Mill SupervisorButt Welder 12/26/23 04/07/[address] [place] [address] 3rd [place] [address] Gastroenterology 09/09/24 documented as of this encounter
--- OUTSIDE RECORDS SUMMARY | 2024-11-02 09:34 | XMS_ITS | Encounter Summary ---
Author Organization [employer] Address [address] [facility] [address] 7t [place] [address] Care Team Providers Care Brake Repair Supervisor Name Role Phone Rigoberto Us MD Primary Care Provide r Timothy Broussard RN Unavailable [phone] September Unavailable Encounter Details Date Type Department Care Team (Late st Contact Info) Description 05/29/2022 Abstract [facility] MEDICINE 230 [place] [address] Provider, MD [place] Social History Tobacco Use [...] on filedocumented in this encounter Care Teams Brake Repair Supervisor Relationship Specialty Start Date End Date Rigoberto Us MD 230 [place] [address] PCP - General Internal Medicine 03/30/18 Timothy Broussard, GIANNA [address] [place] [address] Furniture Removalist'S AssistantAssignment Officer 12/26/23 04/07/24September [address] 3rd [place] [address] Gastroenterology 09/09/24 documented as of this encounter
--- OUTSIDE RECORDS SUMMARY | 2024-11-02 09:34 | XMS_ITS | Encounter Summary ---
Author Organization [employer] Address [address] [facility] [address] 7t [place] [address] Care Team Providers Care Wind Instrument Repairer Name Role Phone Rigoberto Us MD Primary Care Provide r iTmothy Broussard RN Unavailable [phone] September Unavailable Reason for Visit * Reason Onset Date Comments Reschedule 01/12/2024 Encounter Details Date Type Department Care Team ([facility] st Contact Info) Description 01/12/2024 Telephone [facility]ICINE 230 [place] [address] Rigoberto Us MD 230 [place], [place] [phone] Reschedule Social History Tobacco Use Types Packs/Day [...] EDT Tc from sister calling requesting r/s QUILL FIXER appt, she will bring him to the appt however this day shewill be busy. documented in this encounter Plan of Treatment Not on file documented as of this encounter Visit Diagnoses Not on filedocumented in this encounter Additional Health Concerns Assessment Noted Time PHQ-9 Depression Total Score: 8 08/26/19 24 11:49 AM EST documented as of this encounter Care Teams Wind Instrument Repairer Relationship Specialty Start Date End Date Rigoberto Us MD 230 [place] [address] PCP - General Internal Medicine 03/30/18 Timothy Broussard RN [address] [place] [address] Stone DecoratorTool And Die Maker Apprentice 12/26/23 04/07/24 Kathy Nelda [address] 3rd [place] [address] Gastroenterology 09/09/24 documented as of this encounter
--- OUTSIDE RECORDS SUMMARY | 2024-11-02 09:34 | XMS_ITS | Encounter Summary ---
Author Organization [employer] Address [address] [facility] [address] 7t [place] [address] Care Team Providers Care Wellness Nurse Name Role Phone Rigoberto Us MD Primary Care Provide r Timothy Broussard RN Unavailable [phone] September Unavailable Encounter Details Date Type Department Care Team (Late st Contact Info) Description 10/04/2022 Orders Only [facility] MEDICINE 230 [place] [address] Demi Garcia, RN 230 [place] [address] Social History Tobacco Use Types Packs/Day Years [...] on filedocumented in this encounter Care Teams Wellness Nurse Relationship Specialty Start Date End Date Rigoberto Us MD 230 [place] [address] PCP - General Internal Medicine 03/30/18 Timothy Broussard, GIANNA [address] [place] [address] Frit MixerTop Cager 12/26/23 04/07/24 Nelda Chavez [address] [place] [address] 3rd [place] [address] Gastroenterology 09/09/24 documented as of this encounter
--- OUTSIDE RECORDS SUMMARY | 2024-11-02 09:34 | XMS_ITS | Encounter Summary ---
Author Organization [employer] Address [address] [facility] [address] 7t [place] [address] Care Team Providers Care Dry Folder Cloth Name Role Phone Rigoberto Us MD Primary Care Provide r Timothy Broussard RN Unavailable [phone] September Unavailable Encounter Details Date Type Department Care Team (Late st Contact Info) Description 10/17/2023 Orders Only [facility] MEDICINE 230 [place] [address] Provider[place] MD Social History Tobacco Use Types [...] documented as of this encounter Care Teams Dry Folder Cloth Relationship Specialty Start Date End Date Rigoberto Us MD 230 [place] [address] PCP - General Internal Medicine 03/30/18 Timothy Broussard RN [address] [place] [address] Front Desk RepresentativeNon Morse Intercept Technician 12/26/23 04/07/24September [address] 3rd [place] [address] Gastroenterology 09/09/24 documented as of this encounter
--- OUTSIDE RECORDS SUMMARY | 2024-11-02 09:34 | XMS_ITS | Encounter Summary ---
Author Organization [employer] Address [address] [facility] 7t [place] [address] Care Team Providers Care Body Shop Estimator Name Role Phone Rigoberto Us MD Primary Care Provide r September Unavailable Encounter Details Date Type Department Care Team ([facility] Contact Info) Description 09/14/2024 Orders Only [facility] 230 [place], [place] [phone] Provider, MD [place] Social History Tobacco Use [...] EDT Narrative 09/30/2024 9:36 AM EDT ? [facility] ?[address] ?[place] [address] ? CT Scan Report ? Signed ? Patient: Hiro Soni,Avery ?MR#: ?? [id number] ? : 1955 ?Acct:[id number] ? Age/Sex: 69 / M ?ADM Date: 09/30/24 ? Loc: HO.CT ? Attending Dr: Layton Sterling MD ? Ordering Physician: Layton Sterling MD ?? Date of Service: 09/30/24 ?? Procedure(s): CT chest wo IV con ?? Accession Number(s): [id number] ? cc: Rigoberto Madrigal MD; Layton Sterling MD ? Report Number: ?? [id number]: Total DLP = ??146.00 mGy-cm ?? EXAMINATION: [...] DLP: 146 mGy centimeter. ? FINDINGS: ? UNIT DIRECTOR: Volume loss, right lung. Cardiomediastinal structures towards [...] DD/ 0837 ? TD/TT: 09/30/24 0845 ? Truck Driver Heavy: ? Procedure Note Barbara, Image - 09/30/[address] [place] [address] [address] Scan Report Signed Patient: Avery WareMR#: [id number] : 4Acct:[id number] Age/Sex: 69 / MADM Date: 09/30/24 Loc: HO.CT Attending Dr: Layton Sterling MD Ordering Physician: Layton Sterling MD Date of Service: 09/30/24 Procedure(s): CT chest wo IV con Accession Number(s): [id number] cc: Rigoberto Madrigal MD; Layton Sterling MD Report Number: [id number]: Total DLP = 146.00 mGy-cm EXAMINATION: CT [...] reconstruction technique. DLP: 146 mGy centimeter. FINDINGS: UNIT DIRECTOR: Volume loss, right lung. Cardiomediastinal structures towards [...] Garcia MDin OV> 09/30/2433 DD/ TD/TT: 09/30/2445 Truck Driver Heavy: [facility] External Provider IMG CT PROCEDURES Final [...] documented as of this encounter Care Teams Body Shop Estimator Relationship Specialty Start Date End Date Rigoberto Us MD [address] [place] [address] PCP - General Internal Medicine 03/30/18September [address] [place] [address] 3rd [place] [address] Gastroenterology 09/09/24 documented as of this encounter
--- OUTSIDE RECORDS SUMMARY | 2024-11-02 09:34 | XMS_ITS | Encounter Summary ---
Author Organization [employer] Address [address] [facility] [address] 7t [place] [address] Care Team Providers Care Technical Planner Name Role Phone Rigoberto Us MD Primary Care Provide r Timothy Broussard RN Unavailable [phone] September Unavailable Reason for Visit * Reason Onset Date Comments Call Back Request 01/22/2024 Encounter Details Date Type Department Care Team ([facility] st Contact Info) Description 01/22/2024 Telephone [facility]INE 230 [place], [place] [phone] Rigoberto Us MD 230 [place], [place] [phone] Call Back Request Social History Tobacco Use [...] a call back in order to r/s AUTOMOTIVE TECHNOLOGY INSTRUCTOR appt. Please contact at [phone] documented in this encounter Plan of Treatment Not on file documented as of this encounter Visit Diagnoses Not on filedocumented in this encounter Additional Health Concerns Assessment Noted Time PHQ-9 Depression Total Score: 8 08/26/19 24 11:49 AM EST documented as of this encounter Care Teams Technical Planner Relationship Specialty Start Date End Date Rigoberto Us MD 230 [place] [address] PCP - General Internal Medicine 03/30/18 Timothy Broussard RN [address] [place] [address] Security ScreenerAdministrative Dietitian 12/26/23 04/07/[address] 3rd [place] [address] Gastroenterology 09/09/24 documented as of this encounter
--- OUTSIDE RECORDS SUMMARY | 2024-11-02 09:34 | XMS_ITS | Clinical Summary ---
Author Organization [employer] Address [address] [facility] 7t [place] [address] Care Team Providers Care Chief Supply Chain Officer Name Role Phone Rigoberto Us MD Primary [...] Pt here for a HDF Admitted to [facility] from 12/11-12/16/2023 after he presented for evaluation [...] PM EST): S/P kyphoplasty by IR at [facility] 09/20/2022 For pain control I have prescribed Oxycodone Diagnostic work up for secondary causes of osteoporosis unrevealing He is on Calcium and Vitamin D On Tymlos Evaluated by Endocrinology , last seen 05/18/2024. Assessment & Plan (12/02/2023 10:17 AM EDT): S/P kyphoplasty by IR at [facility] 09/20/2022 For pain control I have prescribed Oxycodone Diagnostic work up for secondary causes of osteoporosis unrevealing He is on Calcium and Vitamin D On Tymlos Evaluated by Endocrinology , last seen 08/14/2023 has a follow up in January Assessment & Plan (08/26/2023 11:31 AM EST): S/P kyphoplasty by IR at [facility] 09/20/2022 For pain control I have prescribed Oxycodone Diagnostic work up for secondary causes of osteoporosis unrevealing He is on Calcium and Vitamin D On Tymlos Evaluated by Endocrinology , last seen 08/14/2023 Assessment & Plan (02/04/2023 11:43 AM EDT): S/P kyphoplasty by IR at [facility] 09/20/2022 For pain control I have prescribed [...] and facet arthritis pt already following w wireless development manager receiving Tymlos (abaloparatide)-states was not receiving lately x issues with pharmacy but to resume now -pt takes med to wireless development manager for med administration -advised to continue [...] PM EDT): S/P kyphoplasty by IR at [facility] 09/20/2022 For pain control I have prescribed Oxycodone but he stopped taking it Today he describes his pain at 7/10 when severe 10/10 Diagnostic work up for secondary causes of osteoporosis unrevealing He is on Calcium and Vitamin D Started on Tymlos, followed by Endocrinology Seen at [facility] On 03/19/23: Kyphon Balloon Kyphoplasty with Insertion of HV-R Bone Cement, L1 and L2 Vertebral Bodies: with 80% relief. Last seen at [facility] 10/24/2023 Scheduled for fluoroscopy guided diagnostic left L3-L4 DR L5 medial branch blocks with local anesthetic. Plan: Continue Flexeril and MS Contin 15 mg po BID risk discussed particularly around somnolence , sedation and counseled about fall prevention Assessment & Plan (12/02/2023 10:20 AM EDT): S/P kyphoplasty by IR at [facility] 09/20/2022 For pain control I have prescribed Oxycodone but he stopped taking it Today he describes his pain at 7/10 when severe 10/10 Diagnostic work up for secondary causes of osteoporosis unrevealing He is on Calcium and Vitamin D Started on Tymlos, followed by Endocrinology Seen at [facility] On 03/19/23: Kyphon Balloon Kyphoplasty with Insertion of HV-R Bone Cement, L1 and L2 Vertebral Bodies: with 80% relief. Last seen at [facility] 10/24/2023 Scheduled for fluoroscopy guided diagnostic left L3-L4 DR L5 medial branch blocks with local anesthetic. Plan: Continue Flexeril Start MS Contin 15 mg po BID risk discussed particularly around somnolence , sedation and counseled about fall prevention Assessment & Plan (04/22/2023 11:28 AM EDT): S/P kyphoplasty by IR at [facility] 09/20/2022 For pain control I have prescribed [...] AM EDT): S/P kyphoplasty by IR at [facility] 09/20/2022 For pain control I have prescribed [...] Patient is undergoing kyphoplasty by IR at [facility] tomorrow 09/20/2022 For pain control I have [...] AM EDT): S/P kyphoplasty by IR at [facility] 09/20/2022 For pain control I have prescribed [...] for a f/u He was seen by teaching specialists at [facility] He tells me he was given injections [...] BID, He was advised to f/u with Insurance Sales Assistant Pt reports he is still drinking on [...] for a HDF He presented again to [facility] from 05/30 until 06/01 with c/o increased [...] EDT): Under the care of Dasia Soni [facility] Assessment & Plan (12/02/2023 11:34 AM EDT): Under the care of Dasia Soni [facility] On Seroquel 300 mg po qhs Bupropion and Trazodone 100 mg po qhs per his report Assessment & Plan (04/22/2023 11:41 AM EDT): Under the care of Dasia Soni [facility] On Seroquel 300 mg po qhs Bupropion and Trazodone 100 mg po qhs per his report Assessment & Plan (06/04/2022 9:09 AM EST): Under the care of Dasia Soni [facility] On Seroquel 300 mg po qhs [...] EDT): Under the care of Dasia Soni [facility] Serandrew nd Trazodone were discontinued in the Hospital due to prolongued Qtc He is now on Sertraline 25 mg po daily Assessment & Plan (01/08/2024 1:41 PM EDT): Under the care of Dasia Soni [facility] Seroanca nd Trazodone were discontinued in the Hospital due to prolongued Qtc He is now on Sertraline 25 mg po daily Assessment & Plan (12/02/2023 11:36 AM EDT): Under the care of Dasia newell [facility] On Seroquel 300 mg po qhs Bupropion and Trazodone 100 mg po qhs per his report Assessment & Plan (04/22/2023 11:41 AM EDT): Under the care of Dasia newell [facility] On Seroquel 300 mg po qhs Bupropion and Trazodone 100 mg po qhs per his report Assessment & Plan (06/04/2022 9:09 AM EST): Under the care of Dasia Soni [facility] Tubular adenoma of colon 03/10/2018 Assessment [...] going into A.fib Pt was cleared by Insurance Sales Assistant 06/01 and is awaiting GI appointment for [...] A.fib Pt has now been cleared by Insurance Sales Assistant 06/01 and is awaiting GI appointment for [...] of Trelegy and Ventolin Dr Pisano his tug boat engineer mentioned in a previous note that patient [...] of Trelegy and Ventolin Dr Pisano his tug boat engineer mentioned in a previous note that patient [...] scarring related to pneumonia Dr Pisano his tug boat engineer mentioned in a previous note that patient [...] scarring related to pneumonia Dr Pisano his tug boat engineer mentioned in a previous note that patient [...] Pt was seen by Dr Pisano his tug boat engineer 08/2022 he mentioned in his note that [...] Pt was seen by Dr Pisano his tug boat engineer 08/2022 he mentioned in his note that [...] Pt was seen by Dr Pisano his tug boat engineer 08/2022 he mentioned in his note that [...] Pt was seen by Dr Pisano his tug boat engineer 05/21/2022 who recommended a repeat Chest CT [...] Provider, Generic External Data 09/14/2024 Orders Only [facility] Information Management [address] [place] [address] Elmira Stanley MD 09/13/2024 Telephone [facility] [address] [place] [address] Rigoberto Us MD Appointment Request 09/09/2024 2:00 PM EDT Office Visit [address] [address] Rigoberto Us MD Microscopic hematuria (Primary Dx); Pain in both testicles; Pulmonary nodule; Centrilobular emphysema (CMS/HCC); Tubular adenoma of colon; Non-ischemic cardiomyopathy (CMS/HCC); Primary hypertension; Atrial fibrillation, unspecified type (CMS/HCC); 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 [address] [place] [address] Rigoberto Us MD Chart Prep 08/22/[address] [address] Windy Paula MD 08/06/[address] [phone] Rigoberto Us MD Results from Last 3 Months Immunizations Name Administration [...] MID THIGH Routine 08/15/2024 11:35 AM EST HM COLONOSCOPY Routine 04/23/2024 LIPID PANEL, STANDARD Routine 03/23/2021 9:05 AM EDT from Last 3 Months or Most Recently Relevant to Health Maintenance Results * Hematoxylin and Eosin Stain (10/08/2024 10:34 AM EDT) 10/08/2024 10:3 4 AM EDT 10/08/2024 12:24 PM EDT [facility] - 10/13/2024 4:16 PM EDT ----- ------- Name: Avery Ware ? Age/Sex: 69/M ? : 1955 Unit#: [id number] ?? Attend Dr: Luca Gonzales MD ?Re10/08/24 ?Status: DEP SDC ? Location: HO.SSS ?Disch: ? ----- ------- SPEC : [id number] ? RECD: 10/08/24-4 ? STATUS: ??SOUT ? REQ NUM: [id number] ? FRANCOIS: 10/08/24-1034 ? SUBM DR: Luca [...] microscopic examination, 3 pieces in cassette B. ([facility]) This case was reviewed intradepartmentally. Copies To: ?? Rigoberto Madrigal MD ?? [facility] ?? [address] [facility] ?? [place] [address] ?? [phone] ? CONTINUED ON NEXT PAGE ----- ------- Name: Avery Ware ? Age/Sex: 69/M ? : 1955 Unit#: [id number] ?? Attend Dr: Luca Gonzales MD ?Re10/08/24 ?Status: DEP SDC ? Location: HO.SSS ?Disch: ? ----- ------- SPEC : [id number] ? RECD: 10/08/24-4 ? STATUS: ??SOUT ? REQ NUM: [id number] ? FRANCOIS: 10/08/24-1034 ? SUBM DR: Luca Gonzales MD ? ENTERED: ??10/08/24-1230 ?SP TYPE: Surgical ? OTHR DR: Rigoberto Madrigal MD ?? ORDERED: ??HE Stain/6, Gross Micro L4/2 ? Copies To: ??(Continued) ?? Luca Gonzales MD ?? [facility] Gastroenterology Services ?? [address] ?? [place] [address] ?? [phone] ----- ------- Signed (signature on file) Kristian Cabral MD 10/13/246 ? ----- ------- ? END OF REPORT ? us Generic External Data Provider LAB BLOOD ORDERAB LES Final Result Performing Organization Address City/State/[facility] Co de Phone Number [facility] [address] [place] [address] [phone] * CT Chest w/o Contrast (09/30/2024 8:37 AM EDT) Anatomical Region Laterality Modality Body, Chest Computed Tomogra phy 09/30/2024 8:37 AM EDT Narrative 09/30/2024 9:36 AM EDT ? [facility] ?[address] ?[place] [address] ? CT Scan Report ? Signed ? Patient: Bosch Soni,Avery ?MR#: ?? [id number] ? : 1955 ?Acct:[id number] ? Age/Sex: 69 / M ?ADM Date: 09/30/24 ? Loc: HO.CT ? Attending Dr: Layton Sterling MD ? Ordering Physician: Layton Sterling MD ?? Date of Service: 09/30/24 ?? Procedure(s): CT chest wo IV con ?? Accession Number(s): [id number] ? cc: Rigoberto Madrigal MD; Layton Sterling MD ? Report Number: ?? [id number]: Total DLP = ??146.00 mGy-cm ?? EXAMINATION: [...] DLP: 146 mGy centimeter. ? FINDINGS: ? HUMAN RESOURCE PROFESSIONAL: Volume loss, right lung. Cardiomediastinal structures towards [...] DD/ 0837 ? TD/TT: 09/30/24 0845 ? Electric Switch Tester: ? Procedure Note Barbara, Desiree - 09/30/[address] [address] [address] Scan Report Signed Patient: Avery WareMR#: [id number] : 4Acct:[id number] Age/Sex: 69 / MADM Date: 09/30/24 Loc: HO.CT Attending Dr: Layton Sterling MD Ordering Physician: Layton Sterling MD Date of Service: 09/30/24 Procedure(s): CT chest wo IV con Accession Number(s): [id number] cc: Rigoberto Madrigal MD; Layton Sterling MD Report Number: [id number]: Total DLP = 146.00 mGy-cm EXAMINATION: CT [...] reconstruction technique. DLP: 146 mGy centimeter. FINDINGS: HUMAN RESOURCE PROFESSIONAL: Volume loss, right lung. Cardiomediastinal structures towards [...] 09/30/24 0933 DD/ 0837 TD/TT: 09/30/24 0845 Electric Switch Tester: [facility] External Provider IMG CT PROCEDURES Final Result * PET/CT Bone Skull Base to Mid Thigh (08/15/2024 11:35 AM EST) Anatomical Region Laterality Modality Body Computed Tomogra phy Historical Provider IMG CT PROCEDURES Final R esult * Hm Colonoscopy (04/23/2024) Colonoscopy Normal Normal [...] ?? Rodolfo MURO et al. OLIVIER. 2013;310(19): [id number] ?? (http://education.Air2Web/faq/GUA237) Non-HDL Cholesterol 100 <130 mg/dL (calc) [facility] Comment: For patients with diabetes plus 1 major ASCVD risk ?? factor, treating to a non-HDL-C goal of <100 mg/dL ?? (LDL-C of <70 mg/dL) is considered a therapeutic ?? option. Triglycerides 78 <150 mg/dL [facility] 03/23/2021 9:05 AM EDT us Rigoberto Ramirez MD LAB BLOOD ORDERABLES Final Result [facility] [address] from Last 3 Months or Most Recently Relevant to Health Maintenance Insurance [facility] STANDARD MEDICARE Care Teams Chief Supply Chain Officer Relationship Specialty Start Date End Date Rigoberto Us MD [address] [place] [address] PCP - General Internal Medicine 03/30/[address] [place] [address] 3[address] [place] [address] Gastroenterology 09/09/24
--- OUTSIDE RECORDS SUMMARY | 2024-11-02 09:34 | XMS_ITS | Encounter Summary ---
Author Organization [employer] Address [address] [facility] [address] 7t [place] [address] Care Team Providers Care Warehouse Driver Name Role Phone Rigoberto Us MD Primary Care Provide r Timothy Broussard RN Unavailable [phone] September Unavailable Encounter Details Date Type [...] on filedocumented in this encounter Care Teams Warehouse Driver Relationship Specialty Start Date End Date Rigoberto Us MD [address] [place] [address] PCP - General Internal Medicine 03/30/18 Timothy Broussard, RN [address] [place] [address] Buffer CopperStage Electrician 12/26/23 04/07/24September [address] 3rd [place] [address] Gastroenterology 3/20/25 documented as of this encounter
--- OUTSIDE RECORDS SUMMARY | 2024-11-02 09:34 | XMS_ITS | Encounter Summary ---
Author Organization [employer] Address [address] [facility] [address] 7t [place] [address] Care Team Providers Care Auto Damage Insurance Appraiser Name Role Phone Rigoberto Us MD Primary Care Provide r Timothy Broussard RN Unavailable [phone] September Unavailable Reason for Visit * Reason Onset Date Comments Med Refill 02/16/2024 Encounter Details Date Type Department Care Team (Late st Contact Info) Description 02/16/2024 Telephone [facility] MEDICINE [address] [place], [place] [phone] Rigoberto Us MD 230 [place], [place] [phone] Med Refill Social History Tobacco Use Types [...] 12 hr tablet To be sent to: [id number] [place], [place] - [address] [place] [address] documented in this encounter Plan of Treatment Not on file documented as of this encounter Visit Diagnoses Not on filedocumented in this encounter Additional Health Concerns Assessment Noted Time PHQ-9 Depression Total Score: 8 08/26/19 24 11:49 AM EST documented as of this encounter Care Teams Auto Damage Insurance Appraiser Relationship Specialty Start Date End Date Rigoberto Us MD [address] [place] [address] PCP - General Internal Medicine 03/30/18 Timothy Broussard RN [address] [place] [address] Bricklayer TenderTank Washer 12/26/23 04/07/[address] 3rd [place] [address] Gastroenterology 09/09/24 documented as of this encounter
--- OUTSIDE RECORDS SUMMARY | 2024-11-02 09:34 | XMS_ITS | Encounter Summary ---
Author Organization [employer] Address [address] [facility] [address] 7t [place] [address] Care Team Providers Care Molding Fitter Name Role Phone Rigoberto Us MD Primary Care Provide r September Reason for Visit * Reason Onset Date Comments Medication Question 05/25/2024 Encounter Details Date Type Department Care Team ([facility] st Contact Info) Description 05/25/2024 Telephone [facility] MEDICINE [address] [place], [place] [phone] Rigoberto Us MD 230 [place], [place] [phone] Medication Question Social History Tobacco Use Types [...] he's pain don't go away. Callback number [phone] (ukrainian) documented in this encounter Plan of Treatment Not on file documented as of this encounter Visit Diagnoses Not on filedocumented in this encounter Additional Health Concerns Assessment Noted Time PHQ-9 Depression Total Score: 8 08/26/19 24 11:49 AM EST documented as of this encounter Care Teams Molding Fitter Relationship Specialty Start Date End Date Rigoberto Us MD [address] [place] [address] PCP - General Internal Medicine 03/30/18September [address] [place] [address] 3rd [place] [address] Gastroenterology 09/09/24 documented as of this encounter
== END 2024-11-02 09:07 | disposition home or self-care (01) ==
LOC: HO.MAMMO 09:06
PROVIDERS: PCP Nurse Practitioner Family; Visit Provider Internal Medicine Endocrinology, Diabetes & Metabolism
DX: M81.0 Age-related osteoporosis without current pathological fracture (principal)
CPT/HCPCS: 77080

== ENCOUNTER → 2024-11-02 09:15 | Outpatient (BNV) | payer MEDICARE, MEDICAID, SELFPAY | PROVIDERS: PCP Nurse Practitioner Family; Visit Provider Radiology Diagnostic Radiology | DX: N43.2 Other hydrocele (principal); M81.0 Age-related osteoporosis without current pathological fracture | CPT/HCPCS: 77080 ==

== ENCOUNTER 2024-11-02 13:27 | Outpatient (REF) | payer MEDICARE, MEDICAID, SELFPAY ==
--- NOTE | ~2024-11-02 | US_ITS ---
CLINICAL HISTORY: N50.819 - Testicular pain, unspecified US Scrotum with Doppler Comparison: None Findings: Right testicle heterogeneous echotexture, 3.5 x 2.0 x 2.4 cm. Left testicle heterogeneous echotexture, 3.1 x 1.6 x 2.0 cm. Color Doppler and arterial/venous spectral tracings of both testicles within normal limits. Normal epididymides. Small complex right hydrocele. IMPRESSION: 1. Heterogeneous bilateral testicular echotexture. Underlying infiltrative neoplasm can not be excluded. 2. No acute process. This document has been electronically signed by: Dawn Talamantes MD on 11/02/2024 16:20:42
--- OUTSIDE RECORDS SUMMARY | 2024-11-02 14:32 | XMS_ITS | Encounter Summary ---
Author Organization [email or web address] Address [address] [facility] 7t [place] [address] Care Team Providers Care Calculation Reviewer Name Role Phone Rigoberto Us MD Primary Care Provide r Timothy Broussard RN Unavailable [phone] September Unavailable Reason for Visit * Reason Onset Date Comments Lab Orders 08/30/2022 Encounter Details Date Type Department Care Team (Late st Contact Info) Description 08/30/2022 Telephone [facility] MEDICINE [address] [place] [address] Rigoberto Us MD [address] [place], [place] [phone] Lab Orders Social History Tobacco Use Types [...] - 08/30/2022 11:19 AM EST Tc from [facility] nurse requesting an order for a lumbar spine for pt documented in this encounter Plan of Treatment Not on file documented as of this encounter Visit Diagnoses Not on filedocumented in this encounter Care Teams Calculation Reviewer Relationship Specialty Start Date End Date Rigoberto Us MD [address] [place] [address] PCP - General Internal Medicine 03/30/18 Timothy Broussard, GIANNA [address] [place] [address] Cinder Dump Crane OperatorResearch Electrician 12/26/23 04/07/[address] [place] [address] 3rd [place] [address] Gastroenterology 09/09/24 documented as of this encounter
--- OUTSIDE RECORDS SUMMARY | 2024-11-02 14:32 | XMS_ITS | Encounter Summary ---
Author Organization [employer] Address [address] [facility] [address] 7t [place] [address] Care Team Providers Care Network Associate Name Role Phone Rigoberto Us MD Primary Care Provide r Timothy Broussard RN Unavailable [phone] September Unavailable Reason for Visit * Reason Onset Date Comments Reschedule 01/12/2024 Encounter Details Date Type Department Care Team ([facility] st Contact Info) Description 01/12/2024 Telephone [facility] MEDICINE [address] [place] [address] Rigoberto Us MD 230 [place], [place] [phone] Reschedule Social History Tobacco Use Types Packs/Day [...] EDT Tc from sister calling requesting r/s 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 documented in this encounter Plan of Treatment Not on file documented as of this encounter Visit Diagnoses Not on filedocumented in this encounter Additional Health Concerns Assessment Noted Time PHQ-9 Depression Total Score: 8 08/26/19 24 11:49 AM EST documented as of this encounter Care Teams Network Associate Relationship Specialty Start Date End Date Rigoberto Us MD [address] [place] [address] PCP - General Internal Medicine 03/30/18 Timothy Broussard RN [address] [place] [address] Proofer PrepressAssistant Counsel 12/26/23 04/07/24 [address] 3rd [place] [address] Gastroenterology 09/09/24 documented as of this encounter
--- OUTSIDE RECORDS SUMMARY | 2024-11-02 14:32 | XMS_ITS | Encounter Summary ---
Author Organization [employer] Address [address] [facility] [address] 7t [place] [address] Care Team Providers Care Pulpwood Buyer Name Role Phone Rigoberto Us MD Primary Care Provide r Timothy Broussard RN Unavailable [phone] September Unavailable Encounter Details Date Type [...] on filedocumented in this encounter Care Teams Pulpwood Buyer Relationship Specialty Start Date End Date Rigoberto Us MD [address] [place] [address] PCP - General Internal Medicine 03/30/18 Timothy Broussard, RN [address] [place] [address] Director Of Application DevelopmentEmergency Planning And Response Manager 12/26/23 04/07/24September [address] 3rd [place] [address] Gastroenterology 3/20/25 documented as of this encounter
--- OUTSIDE RECORDS SUMMARY | 2024-11-02 14:32 | XMS_ITS | Encounter Summary ---
Author Organization [employer] Address [address] [facility] [address] 7t [place] [address] Care Team Providers Care Alumni Relations Manager Name Role Phone Rigoberto Us MD Primary Care Provide r September Reason for Visit * Reason Onset Date Comments Medication Question 05/25/2024 Encounter Details Date Type Department Care Team ([facility] st Contact Info) Description 05/25/[address] [facility] MEDICINE 230 [place], [place] [phone] Rigoberto Us MD 230 [place], [place] [phone] Medication Question Social History Tobacco Use Types [...] he's pain don't go away. Callback number [phone] (arabic) documented in this encounter Plan of Treatment Not on file documented as of this encounter Visit Diagnoses Not on filedocumented in this encounter Additional Health Concerns Assessment Noted Time PHQ-9 Depression Total Score: 8 08/26/19 24 11:49 AM EST documented as of this encounter Care Teams Alumni Relations Manager Relationship Specialty Start Date End Date Rigoberto Us MD [address] [place] [address] PCP - General Internal Medicine 03/30/18September [address] [place] [address] 3rd [place] [address] Gastroenterology 09/09/24 documented as of this encounter
--- OUTSIDE RECORDS SUMMARY | 2024-11-02 14:32 | XMS_ITS | Encounter Summary ---
Author Organization [employer] Address [address] [facility] 7t [place] [address] Care Team Providers Care Biofuels Technology Development Manager Name Role Phone Rigoberto Us MD Primary Care Provide r Timothy Broussard RN Unavailable [phone] September Unavailable Encounter Details Date Type Department Care Team (Late st Contact Info) Description 10/31/2022 Abstract [facility] MEDICINE 230 [place], [place] [phone] Rigoberto Us MD 230 [place], [place] [phone] Social History Tobacco Use Types Packs/Day Years [...] on filedocumented in this encounter Care Teams Biofuels Technology Development Manager Relationship Specialty Start Date End Date Rigoberto Us MD 230 [place], [place] [phone] PCP - General Internal Medicine 03/30/18 Timothy Broussard, GIANNA [address] [place] [address] Catering AssociateCrime Scene Analyst 12/26/23 04/07/[address] [place] [address] 3rd [place] [address] Gastroenterology 09/09/24 documented as of this encounter
--- OUTSIDE RECORDS SUMMARY | 2024-11-02 14:32 | XMS_ITS | Encounter Summary ---
Author Organization [employer] Address [address] [place] [address] Care Team Providers Care Dietetic Intern Name Role Phone Rigoberto Us MD Primary Care Provide r Timothy Broussard RN Unavailable [phone] September Unavailable Encounter Details Date Type Department Care Team (Late st Contact Info) Description 10/04/2022 Orders Only [facility] MEDICINE [address] [place] [address] Demi Garcia, RN [address] [place] [address] Social History Tobacco Use Types Packs/Day Years [...] on filedocumented in this encounter Care Teams Dietetic Intern Relationship Specialty Start Date End Date Rigoberto Us MD [address] [place] [address] PCP - General Internal Medicine 03/30/18 Timothy Broussard, GIANNA [address] [place] [address] Network LeadLocal Area Network Administrator 12/26/23 04/07/24 Nelda Chavez [address] [place] [address] 3rd [place] [address] Gastroenterology 09/09/24 documented as of this encounter
--- OUTSIDE RECORDS SUMMARY | 2024-11-02 14:32 | XMS_ITS | Encounter Summary ---
Author Organization [employer] Address [address] [facility] 7t [place] [address] Care Team Providers Care Telecasting Engineer Name Role Phone Rigoberto Us MD Primary Care Provide r September Unavailable Encounter Details Date Type Department Care Team ([facility] Contact Info) Description 09/14/2024 Orders Only [facility] [address] [place], [place] [phone] Provider, MD [place] Social History Tobacco Use [...] Narrative 09/30/2024 9:36 AM EDT ? [facility] ?[address] ?[place] [address] ? CT Scan Report ? Signed ? Patient: Hiro Soni,Avery ?MR#: ?? [id number] ? : 1955 ?Acct:[id number] ? Age/Sex: 69 / M ?ADM Date: 09/30/24 ? Loc: HO.CT ? Attending Dr: Layton Sterling MD ? Ordering Physician: Layton Sterling MD ?? Date of Service: 09/30/24 ?? Procedure(s): CT chest wo IV con ?? Accession Number(s): [id number] ? cc: Rigoberto Madrigal MD; Layton Sterling MD ? Report Number: ?? [id number]: Total DLP = ??146.00 mGy-cm ?? EXAMINATION: [...] DLP: 146 mGy centimeter. ? FINDINGS: ? FAMILY RESOURCE MANAGEMENT SPECIALIST: Volume loss, right lung. Cardiomediastinal structures towards [...] DD/ 0837 ? TD/TT: 09/30/24 0845 ? Plaster Helper: ? Procedure Note Barbara, Image - 09/30/[address] [place] [address] [address] Scan Report Signed Patient: Avery WareMR#: [id number] : 4Acct:[id number] Age/Sex: 69 / MADM Date: 09/30/24 Loc: HO.CT Attending Dr: Layton Sterling MD Ordering Physician: Layton Sterling MD Date of Service: 09/30/24 Procedure(s): CT chest wo IV con Accession Number(s): [id number] cc: Rigoberto Madrigal MD; Layton Sterling MD Report Number: [id number]: Total DLP = 146.00 mGy-cm EXAMINATION: CT [...] reconstruction technique. DLP: 146 mGy centimeter. FINDINGS: FAMILY RESOURCE MANAGEMENT SPECIALIST: Volume loss, right lung. Cardiomediastinal structures towards [...] Garcia MDin OV> 09/30/2433 DD/ TD/TT: 09/30/2445 Plaster Helper: [facility] External Provider IMG CT [...] documented as of this encounter Care Teams Telecasting Engineer Relationship Specialty Start Date End Date Rigoberto Us MD [address] [place] [address] PCP - General Internal Medicine 03/30/18September [address] [place] [address] 3rd [place] [address] Gastroenterology 09/09/24 documented as of this encounter
--- OUTSIDE RECORDS SUMMARY | 2024-11-02 14:32 | XMS_ITS | Encounter Summary ---
Author Organization [employer] Address [address] [place] [address] Care Team Providers Care Supervisor Byproducts Name Role Phone Rigoberto Us MD Primary Care Provide r Timothy Broussard RN Unavailable [phone] September Unavailable Encounter Details Date Type Department Care Team (Late st Contact Info) Description 05/29/2022 Abstract [facility] MEDICINE [address] [place] [address] Provider, MD [place] Social History Tobacco Use [...] on filedocumented in this encounter Care Teams Supervisor Byproducts Relationship Specialty Start Date End Date Rigoberto Us MD [address] [place] [address] PCP - General Internal Medicine 03/30/18 Timothy Broussard, GIANNA [address] [place] [address] Cutter And Edge TrimmerHead Sampler 12/26/23 04/07/24September [address] 3rd [place] [address] Gastroenterology 09/09/24 documented as of this encounter
--- OUTSIDE RECORDS SUMMARY | 2024-11-02 14:32 | XMS_ITS | Encounter Summary ---
Author Organization [employer] Address [address] [place] [address] Care Team Providers Care Outpatient Receptionist Name Role Phone Rigoberto Us MD Primary Care Provide r Timothy Broussard RN Unavailable [phone] September Unavailable Reason for Visit * Reason Onset Date Comments Call Back Request 01/22/2024 Encounter Details Date Type Department Care Team ([facility] st Contact Info) Description 01/22/2024 Telephone [facility] MEDICINE [address] [place], [place] [phone] Rigoberto Us MD [address] [place], [place] [phone] Call Back Request Social History Tobacco Use [...] a call back in order to r/s OIL ANALYST appt. Please contact at [phone] documented in this encounter Plan of Treatment Not on file documented as of this encounter Visit Diagnoses Not on filedocumented in this encounter Additional Health Concerns Assessment Noted Time PHQ-9 Depression Total Score: 8 08/26/19 24 11:49 AM EST documented as of this encounter Care Teams Outpatient Receptionist Relationship Specialty Start Date End Date Rigoberto Us MD [address] [place] [address] PCP - General Internal Medicine 03/30/18 Timothy Broussard RN [address] [place] [address] Program EngineerCampaign Management Specialist 12/26/23 04/07/[address]rd [place] [address] Gastroenterology 09/09/24 documented as of this encounter
--- OUTSIDE RECORDS SUMMARY | 2024-11-02 14:32 | XMS_ITS | Encounter Summary ---
Author Organization [employer] Address [address] [facility] [address] [facility] [address] [place] [address] Care Team Providers Care Supplemental Nurse Name Role Phone Rigoberto Us MD Primary Care Provide r Timothy Broussard RN Unavailable [phone] September Unavailable Reason for Visit * Reason Onset Date Comments Med Refill 02/16/2024 Encounter Details Date Type Department Care Team (Late st Contact Info) Description 02/16/2024 Telephone [facility] 230 [place], [place] [phone] Rigoberto Us MD [address] [place], [place] [phone] Med Refill Social History Tobacco Use Types [...] 12 hr tablet To be sent to: [id number] [place], [place] - [address] [place] [address] documented in this encounter Plan of Treatment Not on file documented as of this encounter Visit Diagnoses Not on filedocumented in this encounter Additional Health Concerns Assessment Noted Time PHQ-9 Depression Total Score: 8 08/26/19 24 11:49 AM EST documented as of this encounter Care Teams Supplemental Nurse Relationship Specialty Start Date End Date Rigoberto Us MD [address] [place] [address] PCP - General Internal Medicine 03/30/18 Timothy Broussard RN [address] [place] [address] [place] Neck WhipperRubber Compounder 12/26/23 04/07/[address]rd [place] [address] Gastroenterology 09/09/24 documented as of this encounter
--- OUTSIDE RECORDS SUMMARY | 2024-11-02 14:32 | XMS_ITS | Clinical Summary ---
Author Organization [employer] Address [address] [facility] 7[address] [place] [address] Care Team Providers Care Hand Embroiderer Name Role Phone Rigoberto Us MD Primary [...] Pt here for a HDF [place] [facility] [place] after he presented for [...] PM EST): S/P [place]ph[place] [facility] [place] For pain control I have prescribed Oxycodone Diagnostic work up for secondary causes of osteoporosis unrevealing He is on Calcium and Vitamin D On Tymlos Evaluated by Endocrinology , last seen 05/18/2024. Assessment & Plan (12/02/2023 10:17 AM EDT): S/P [place] [facility] [place] For pain control I have prescribed Oxycodone Diagnostic work up for secondary causes of osteoporosis unrevealing He is on Calcium and Vitamin D On Tymlos Evaluated by Endocrinology , last seen 08/14/2023 has a follow up in January Assessment & Plan (08/26/2023 11:31 AM EST): S/P [place] [facility] [place] For pain control I have prescribed Oxycodone Diagnostic work up for secondary causes of osteoporosis unrevealing He is on Calcium and Vitamin D On Tymlos Evaluated by Endocrinology , last seen 08/14/2023 Assessment & Plan (02/04/2023 11:43 AM EDT): S/P [place] [facility] [place] For pain control I have [...] and facet arthritis pt already following w range rider receiving Tymlos (abaloparatide)-states was not receiving lately x issues with pharmacy but to resume now -pt takes med to range rider for med administration -advised to continue w [...] PM EDT): S/P [place]ph[place] [facility] [place]22 For pain control I have prescribed Oxycodone but he stopped taking it Today he describes his pain at 7/10 when severe 10/10 Diagnostic work up for secondary causes of osteoporosis unrevealing He is on Calcium and Vitamin D Started on Tymlos, followed by Endocrinology Seen at [facility] On 03/19/23: Kyphon Balloon Kyphoplasty with Insertion of HV-R Bone Cement, L1 and L2 Vertebral Bodies: with 80% relief. Last seen at [facility] 10/24/2023 Scheduled for fluoroscopy guided diagnostic left L3-L4 DR L5 medial branch blocks with local anesthetic. Plan: Continue Flexeril and MS Contin 15 mg po BID risk discussed particularly around somnolence , sedation and counseled about fall prevention Assessment & Plan (12/02/2023 10:20 AM EDT): S/P [place] [facility] [place] For pain control I have prescribed Oxycodone but he stopped taking it Today he describes his pain at 7/10 when severe 10/10 Diagnostic work up for secondary causes of osteoporosis unrevealing He is on Calcium and Vitamin D Started on Tymlos, followed by Endocrinology Seen at [facility] On 03/19/23: Kyphon Balloon Kyphoplasty with Insertion of HV-R Bone Cement, L1 and L2 Vertebral Bodies: with 80% relief. Last seen at [facility] 10/24/2023 Scheduled for fluoroscopy guided diagnostic left L3-L4 DR L5 medial branch blocks with local anesthetic. Plan: Continue Flexeril Start MS Contin 15 mg po BID risk discussed particularly around somnolence , sedation and counseled about fall prevention Assessment & Plan (04/22/2023 11:28 AM EDT): S/P [place]ph[place] IR [place] [facility] [place]22 For pain control I have [...] AM EDT): S/P [place]ph[place] [facility] [place]22 For pain control I have [...] Patient is undergoing kyphoplasty by IR [place] [facility] [place] 09/20/2022 For pain control I [...] AM EDT): S/P [place]ph[place] [facility] [place]22 For pain control I have [...] Patient was referred for Evaluation with Dr Watemran He tells me he has a follow [...] for a f/u He was seen by industrial training specialist at [facility] He tells me he was given [...] BID, He was advised to f/u with [employer] Pt reports he is still drinking on [...] for a HDF He presented again [place] [facility] [place] until 06/01 with c/o [...] EDT): Under the care of Dasia Soni [facility] Assessment & Plan (12/02/2023 11:34 AM EDT): Under the care of Dasia Soni [facility] On Seroquel 300 mg po qhs Bupropion and Trazodone 100 mg po qhs per his report Assessment & Plan (04/22/2023 11:41 AM EDT): Under the care of Dasia Soni [facility] On Seroquel 300 mg po qhs Bupropion and Trazodone 100 mg po qhs per his report Assessment & Plan (06/04/2022 9:09 AM EST): Under the care of Dasia Soni [facility] On Seroquel 300 mg po qhs [...] EDT): Under the care of Dasia Soni [facility] Serandrew nd Trazodone were discontinued in the Hospital due to prolongued Qtc He is now on Sertraline 25 mg po daily Assessment & Plan (01/08/2024 1:41 PM EDT): Under the care of Dasia Soni [facility] Seroanca nd Trazodone were discontinued in the Hospital due to prolongued Qtc He is now on Sertraline 25 mg po daily Assessment & Plan (12/02/2023 11:36 AM EDT): Under the care of Dasia newell [facility] On Seroquel 300 mg po qhs Bupropion and Trazodone 100 mg po qhs per his report Assessment & Plan (04/22/2023 11:41 AM EDT): Under the care of Dasia newell [facility] On Seroquel 300 mg po qhs Bupropion and Trazodone 100 mg po qhs per his report Assessment & Plan (06/04/2022 9:09 AM EST): Under the care of Dasia Soni [facility] Tubular adenoma of colon 03/10/2018 Assessment [...] going into A.fib Pt was cleared by [employer] [facility] 06/01 and is awaiting GI appointment for [...] A.fib Pt has now been cleared by [employer] 06/01 and is awaiting GI appointment for [...] of Trelegy and Ventolin Dr Pisano his director data processing mentioned in a previous note that patient [...] of Trelegy and Ventolin Dr Pisano his director data processing mentioned in a previous note that patient [...] scarring related to pneumonia Dr Pisano his director data processing mentioned in a previous note that patient [...] scarring related to pneumonia Dr Pisano his director data processing mentioned in a previous note that patient [...] Pt was seen by Dr Pisano his director data processing 08/2022 he mentioned in his note that [...] Pt was seen by Dr Pisano his director data processing 08/2022 he mentioned in his note that [...] Pt was seen by Dr Pisano his director data processing 08/2022 he mentioned in his note that [...] Pt was seen by Dr Pisano his director data processing 05/21/2022 who recommended a repeat Chest CT [...] Provider, Generic External Data 09/14/2024 Orders Only [facility] Care Information Management [address] [place] [address] Elmira Stanley MD 09/13/2024 Telephone [facility] [address] [place] [address] Rigoberto Us MD Appointment Request 09/09/2024 2:00 PM EDT Office Visit [address] [address] Rigoberto Us MD Microscopic hematuria (Primary Dx); Pain in both testicles; Pulmonary nodule; Centrilobular emphysema (CMS/HCC); Tubular adenoma of colon; Non-ischemic cardiomyopathy (CMS/HCC); Primary hypertension; Atrial fibrillation, unspecified type (CMS/HCC); 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); Ascending aorta dilatation (CMS/HCC) 09/09/2024 Travel 09/03/2024 Population Health Risk Score [facility] () Department [address] [place] [id number] Provider, Population Health Generic 09/01/2024 Telephone [facility] [address] [place] [address] Rigoberto Us MD Chart Prep 08/22/[address] [address] Windy Paula MD 08/06/[address] [phone] Rigoberto Us MD Results from Last 3 [...] Procedure Name Priority Date/Time Associated Diagnosis Comments BD DEXA AXIAL Routine 11/02/2024 9:15 AM EDT HEMATOXYLIN AND EOSIN STAIN Routine 10/08/2024 10:[address] CHEST WO CONTRAST Routine 09/30/2024 8:37 AM EDT PET/CT BONE SKULL BASE TO MID THIGH Routine 08/15/2024 11:35 AM EST HM COLONOSCOPY Routine 04/23/2024 LIPID PANEL, STANDARD Routine 03/23/2021 9:05 AM EDT from Last 3 Months or Most Recently Relevant to Health Maintenance Results * BD DEXA Axial (11/02/2024 9:15 AM EDT) Anatomical Region Laterality Modality Body Radiographic Cristiana ging 11/02/2024 9:15 AM EDT Narrative 11/02/2024 10:20 AM EDT ? [place] [facility] ? [address] ?[place] [address] ?[phone] ? Mammography Report ? Signed ? Patient: Bosch Soni,Avery ?MR#: ?? [id number] ? : 1955 ?Acct:[id number] ? Age/Sex: 69 / M ?ADM Date: 11/02/24 ? Loc: HO.MAMMO ? Attending Dr: Xavier Grant MD ? Ordering Physician: Xavier Grant MD ?Results: ? Date of Service: 11/02/24 ?Follow Up: ? Procedure(s): XR DEXA axial skeleton ?? Accession Number(s): [id number] ? cc: Xavier Grant MD; Milena Lopez ? EXAMINATION: ??DXA BONE DENSITY AXIAL ? HISTORY: ??M81.0 - Age-related osteoporosis without current pathological ?? fracture ? TECHNIQUE: [employer] Dual energy absorptiometry (DEXA) ?? of the lumbar spine, total left hip, and femoral neck was performed. ? COMPARISON: Comparison is made with the prior examination dated ?? 09/26/2022. ? FINDINGS: ? The bone mineral density of the lumbar spine is 0.982 with a T-score of ?? -2.1, and a Z-score of -2.1. This is indicative of osteopenia. ? This represents a BMD change of 11.9% compared to the prior exam. ??This ?? is statistically significant. ? The bone mineral density of the left total hip is 0.794 with a T-score ?? of -2.1, and a Z-score of -1.7. This is indicative of osteopenia. ? This represents a BMD change of -1.2% compared to the prior exam. ??This ?? is not statistically significant. ? The bone mineral density of the left femoral neck is 0.723 with a ?? T-score of -2.7, and a Z-score of -1.8. This is indicative of ?? osteoporosis. ? This represents a BMD change of -1.9% compared to the prior exam. ? FRACTURE RISK: ?? The FRAX index suggests a ten year probability of major osteoporotic ?? fracture of 15.4%, and of hip fracture 6.6%. ? MM/XR DEXA axial skeleton ?? IMPRESSION: ?? Based on bone mineral density, and according to World Health ?? Organization (WHO) criteria, the diagnosis is consistent with ?? osteoporosis. ? All bone density values are in grams per centimeter squared (g/cm2). ?? Statistically, 68% of repeat scans fall within 1 SD (+/- 0.010 g/cm2 ?? for AP spine L1-L4) and 1 SD (+/- 0.012 g/cm2 for femur total) ?? FRAX is a trademark of the [employer]'s ?? [employer] for Metabolic Bone Disease, a World Health Organization (WHO) ?? Collaborating Center. ? Electronically signed by: ??Xavier Ma MD ??11/02/2024 10:17 AM EDT ?? RP ? Dictated By: ?Xavier Ma MD ? Signed By: ?<Electronically signed by Xavier Ma MD in OV> ?11/02/24 1017 ? DD/ 0915 ? TD/TT: 11/02/24 0940 ? Sfdc Technical Architect: ? Procedure Note Donotuseinterpreter, Image - 11/02/2024 [facility] [address] [place], [place] [address] Mammography Report Signed Patient: Avery WareMR#: [id number] : 1955cct:[id number] Age/Sex: 69 / MADM Date: 11/02/24 Loc: [facility] Attending Dr: Xavier Grant MD Ordering Physician: Xavier Grantesults: Date of Service: 11/02/24Follow Up: Procedure(s): XR DEXA axial skeleton Accession Number(s): [id number] cc: Xavier Grant MD; Milena Lopez UNIT CONTROLLER EXAMINATION: DXA BONE DENSITY AXIAL HISTORY: M81.0 - Age-related osteoporosis without current pathological fracture TECHNIQUE: [employer] Dual energy absorptiometry (DEXA) of the lumbar spine, total left hip, and femoral neck was performed. COMPARISON: Comparison is made with the prior examination dated 09/26/2022. FINDINGS: The bone mineral density of the lumbar spine is 0.982 with a T-score of -2.1, and a Z-score of -2.1. This is indicative of osteopenia. This represents a BMD change of 11.9% compared to the prior exam. This is statistically significant. The bone mineral density of the left total hip is 0.794 with a T-score of -2.1, and a Z-score of -1.7. This is indicative of osteopenia. This represents a BMD change of -1.2% compared to the prior exam. This is not statistically significant. The bone mineral density of the left femoral neck is 0.723 with a T-score of -2.7, and a Z-score of -1.8. This is indicative of osteoporosis. This represents a BMD change of -1.9% compared to the prior exam. FRACTURE RISK: The FRAX index suggests a ten year probability of major osteoporotic fracture of 15.4%, and of hip fracture 6.6%. MM/XR DEXA axial skeleton IMPRESSION: Based on bone mineral density, and according to World Health Organization (WHO) criteria, the diagnosis is consistent with osteoporosis. All bone density values are in grams per centimeter squared (g/cm2). Statistically, 68% of repeat scans fall within 1 SD (+/- 0.010 g/cm2 for AP spine L1-L4) and 1 SD (+/- 0.012 g/cm2 for femur total) FRAX is a trademark of the [employer]'s [employer] for Metabolic Bone Disease, a World Health Organization (WHO) Collaborating Center. Electronically signed by: Xavier Ma MD 11/02/2024 10:17 AM EDT Dictated By: Xavier Ma MD Signed By: <Electronically signed by Xavier Ma MD in OV> 11/02/24 1017 DD/ 0915 TD/TT: 11/02/24 0940 Sfdc Technical Architect: [facility] External Provider IMG DXA PROCEDURES Final Result * Hematoxylin and Eosin Stain (10/08/2024 10:34 AM EDT) 10/08/2024 10:3 4 AM EDT 10/08/2024 12:24 PM EDT [facility] - 10/13/2024 4:16 PM EDT ----- ------- Name: Avery Ware ? Age/Sex: 69/M ? : 1955 Unit#: [id number] ?? Attend Dr: Luca Gonzales MD ?Re10/08/24 ?Status: DEP SDC ? Location: HO.SSS ?Disch: ? ----- ------- SPEC : [id number] ? RECD: 10/08/24-1224 ? STATUS: ??SOUT ? REQ NUM: [id number] ? FRANCOIS: 10/08/24-1034 ? SUBM DR: Luca [...] microscopic examination, 3 pieces in cassette B. ([facility]) This case was reviewed intradepartmentally. Copies To: ?? Rigoberto Madrigal MD ?? [facility] ?? [address] [place] [address] ?? [place] [address] ?? [phone] ? CONTINUED ON NEXT PAGE ----- ------- Name: Avery Ware ? Age/Sex: 69/M ? : 1955 Unit#: [id number] ?? Attend Dr: Luca Gonzales MD ?Re10/08/24 ?Status: DEP [facility] ? Location: .[facility] ?Disch: ? ----- ------- SPEC : [id number] ? RECD: 10/08/24-1223 ? STATUS: ??SOUT ? REQ NUM: [id number] ? FRANCOIS: 10/08/24-4 ? SUBM DR: Luca Gonzales MD ? ENTERED: ??10/08/24-1230 ?SP TYPE: Surgical ? OTHR DR: Rigoberto Madrigal MD ?? ORDERED: ??HE Stain/6, Gross Micro L4/2 ? Copies To: ??(Continued) ?? Luca Gonzales MD ?? [facility] ?? [address] ?? [place] [address] ?? [phone] ----- ------- Signed (signature on file) Kristian Cabral MD 10/13/24 1616 ? ----- ------- ? END OF REPORT ? us Generic External Data Provider LAB BLOOD ORDERAB LES Final Result Performing Organization Address [facility]/State/ZIP Co de Phone Number [facility] [address] [place] [address] [phone] * CT Chest w/o Contrast (09/30/2024 8:37 AM EDT) Anatomical Region Laterality Modality Body, Chest Computed Tomogra phy 09/30/2024 8:37 AM EDT Narrative 09/30/2024 9:36 AM EDT ? [facility] ?[address] ?[place] [address] ? CT Scan Report ? Signed ? Patient: Bosch Soni,Avery ?MR#: ?? [id number] ? : 1955 ?Acct:[id number] ? Age/Sex: 69 / M ?ADM Date: 09/30/24 ? Loc: HO.CT ? Attending Dr: Layton Sterling MD ? Ordering Physician: Layton Sterling MD ?? Date of Service: 09/30/24 ?? Procedure(s): CT chest wo IV con ?? Accession Number(s): [id number] ? cc: Rigoberto Madrigal MD; Layton Sterling MD ? Report Number: ?? [id number]: Total DLP = ??146.00 mGy-cm ?? EXAMINATION: [...] DLP: 146 mGy centimeter. ? FINDINGS: ? PRODUCTION PROOFREADER: Volume loss, right lung. Cardiomediastinal structures towards [...] DD/ 0837 ? TD/TT: 09/30/24 0845 ? Sfdc Technical Architect: ? Procedure Note Barbara, Image - 09/30/[address] [place] [address] [address] Scan Report Signed Patient: Avery WareMR#: [id number] : 4Acct:[id number] Age/Sex: 69 / MADM Date: 09/30/24 Loc: HO.CT Attending Dr: Layton Sterling MD Ordering Physician: Layton Sterling MD Date of Service: 09/30/24 Procedure(s): CT chest wo IV con Accession Number(s): [id number] cc: Rigoberto Madrigal MD; Layton Sterling MD Report Number: [id number]: Total DLP = 146.00 mGy-cm EXAMINATION: CT [...] reconstruction technique. DLP: 146 mGy centimeter. FINDINGS: PRODUCTION PROOFREADER: Volume loss, right lung. Cardiomediastinal structures towards [...] <Electronically signed by Samuel Garcia MDin OV> 09/30/24932 DD/ 6 TD/TT: 09/30/2445 Sfdc Technical Architect: [facility] External Provider IMG CT PROCEDURES Final Result * PET/CT Bone Skull Base to Mid Thigh (08/15/2024 11:35 AM EST) Anatomical Region Laterality Modality Body Computed Tomogra phy Historical Provider IMG CT PROCEDURES Final R esult * Hm Colonoscopy (04/23/2024) Pathologist [facility] Colonoscopy Normal Normal Historical Provider HEALTH MAINTENANCE Final Result * LIPID PANEL, STANDARD (03/23/2021 9:05 AM EDT) Pathologist [facility] Chol/HDLC Ratio 2.9 <5.0 (calc) [facility] [...] ?? Rodolfo MURO et al. OLIVIER. 2013;310(19): 2710-7093 ?? (http://education.[employer].ZYOMYX/faq/AGN217) Non-HDL Cholesterol 100 <130 mg/dL (calc) [facility] Comment: For patients with diabetes plus 1 major ASCVD risk ?? factor, treating to a non-HDL-C goal of <100 mg/dL ?? (LDL-C of <70 mg/dL) is considered a therapeutic ?? option. Triglycerides 78 <150 mg/dL [facility] 03/23/2021 9:05 AM EDT us Rigoberto Ramirez MD LAB BLOOD ORDERABLES Final Result [facility] [address] [place] [address], from Last 3 Months or Most Recently Relevant to Health Maintenance Insurance [facility] [place] [id number] Care Teams Hand Embroiderer Relationship Specialty Start Date End Date Rigoberto Us MD [address] [place] [address] PCP - General Internal Medicine 03/30/18September [address] [place] [address] Drive 3rd [place] [address] Gastroenterology 09/09/24
--- OUTSIDE RECORDS SUMMARY | 2024-11-02 14:32 | XMS_ITS | Encounter Summary ---
Author Organization [employer] Address [address] [facility] [address] [address] [place] [address] Care Team Providers Care Boiling Off Winder Name Role Phone Rigoberto Us MD Primary Care Provide r Timothy Broussard RN Unavailable [phone] September Unavailable Encounter Details Date Type Department Care Team (Late st Contact Info) Description 10/17/2023 Orders Only [facility] [address] [place] [address] ProviderElmira MD Social History Tobacco Use Types [...] documented as of this encounter Care Teams Boiling Off Winder Relationship Specialty Start Date End Date Rigoberto Us MD [address] [place] [address] PCP - General Internal Medicine 03/30/18 Timothy Broussard RN [address] [place] [address] Raimann Machine OperatorConstruction Assistant 12/26/23 04/07/24September [address]rd [place] [address] Gastroenterology 09/09/24 documented as of this encounter
== END 2024-11-02 13:28 | disposition home or self-care (01) ==
LOC: HO.US 13:27
PROVIDERS: PCP Internal Medicine; Visit Provider Urology
DX: N50.819 Testicular pain, unspecified (principal)
CPT/HCPCS: 76870; 77080

== ENCOUNTER 2024-11-25 09:41 | Outpatient (REF) | payer MEDICARE, MEDICAID, SELFPAY ==
--- NOTE | ~2024-11-25 | CT_ITS ---
CLINICAL HISTORY: N28.89 - Other specified disorders of kidney and ureter CT ABDOMEN AND PELVIS WITH AND WITHOUT CONTRAST Comparison: None Findings: Right lower lobe atelectasis and/or scarring. Small hiatal hernia. Bilateral renal excretion with no hydronephrosis or urolithiasis. There is a normal variant duplicated left ureter. There is normal renal enhancement with prominent lower pole parenchymal scarring in the right kidney. There are multiple small bilateral renal cysts. There are additional subcentimeter renal cortical hypodensities are too small to accurately characterize. There is a 2 cm lower pole lesion in the right kidney with density measurements 3 HU, 19 HU and 3 HU on precontrast, postcontrast and delayed imaging. No solid renal cortical lesion. There is fatty infiltration of the liver. Pancreas, spleen and adrenal glands are unremarkable. Gallbladder is partly contracted. No AAA. No bowel obstruction, pneumoperitoneum, or pneumatosis. No ascites. No significant mesenteric or paracolic edema. The appendix is not seen. Normal size prostate. Urinary bladder is smooth in outline. No intraluminal filling defect. T9, L1 and L2 kyphoplasty changes. IMPRESSION: 1. No acute obstructive uropathy or urolithiasis. 2. Multiple small bilateral renal cysts. Multiple too small to accurately characterize subcentimeter renal cortical lesions which statistically are likely cysts. No solid renal lesion identified. 3. Unremarkable urinary bladder. 4. Additional findings as above. This document has been electronically signed by: Janet Felipe DO on 11/25/2024 13:45:30
--- OUTSIDE RECORDS SUMMARY | 2024-11-25 10:51 | XMS_ITS | Encounter Summary ---
Author Organization [employer] Address [address] [facility] [address]t [place] [address] Care Team Providers Care Technical Analyst Name Role Phone Rigoberto Us MD Primary Care Provide r Timothy Broussard RN Unavailable [phone] September Unavailable Reason for Visit * Reason Onset Date Comments Lab Orders 08/30/2022 Encounter Details Date Type Department Care Team (Late st Contact Info) Description 08/30/2022 Telephone [facility] [address] [place] [address] Rigoberto Us MD [address] [place], [place] [phone] Lab Orders Social History Tobacco Use Types [...] - 08/30/2022 11:19 AM EST Tc from [facility] nurse requesting an order for a lumbar spine for pt documented in this encounter Plan of Treatment Not on file documented as of this encounter Visit Diagnoses Not on filedocumented in this encounter Care Teams Technical Analyst Relationship Specialty Start Date End Date Rigoberto Us MD [address] [place] [address] PCP - General Internal Medicine 03/30/18 Timothy Broussard, GIANNA [address] [place] [phone] Resident EngineerMachine Washer 12/26/23 04/07/[address] [place] [address] 3rd [place] [address] Gastroenterology 09/09/24 documented as of this encounter
[2024-11-26 15:07] LABS: Creatinine POC 0.7 mg/dL (0.5-1.4); GFR POC > 60
== END 2024-11-25 09:42 | disposition home or self-care (01) ==
LOC: HO.CT 09:41
PROVIDERS: PCP Nurse Practitioner Family; Visit Provider Urology
DX: N28.89 Other specified disorders of kidney and ureter (principal); N28.1 Cyst of kidney, acquired; R31.29 Other microscopic hematuria
CPT/HCPCS: 74178; 82565

== ENCOUNTER → 2024-11-25 09:43 | Outpatient (BNV) | payer MEDICARE, MEDICAID, SELFPAY | PROVIDERS: PCP Nurse Practitioner Family; Visit Provider Radiology Diagnostic Radiology | DX: N28.1 Cyst of kidney, acquired (principal) | CPT/HCPCS: 74178 ==

== ENCOUNTER 2024-12-09 07:46 | Outpatient (AMB) | payer MEDICARE, MEDICAID, SELFPAY ==
--- NOTE | 2024-12-09 07:46 | A.OFFVIS_ITS ---
Intake Visit Reasons: 7w/CT/labs Intake Note: Patient presents today for tele visit follow up on CT Scan results Imaging Completed: 11/25/24 Urology Meds: Tamsulosin Allergies to Antibiotic- No Known Allergies Blood Thinner- Eliquis Dairy Farmer Required: Yes Dairy Farmer Language: Bottling Line Operator Services: Dairy Farmer Present Dairy Farmer Name: Julian [id number] Information Interpreted: non-clinical & clinical Allergies No Known Allergies (No Known Allergies*) Allergy (Verified 12/09/24 07:56) Medication List - Last Reconciled 12/09/24 by LA Noe acetaminophen 1,000 mg PO Q8H PRN albuterol sulfate 2.5 mg inhalation BID albuterol sulfate 90 mcg/actuation 2 inhalations inhalation Q6H PRN 30 days apixaban (Eliquis) 5 mg PO BID Held on 10/08/24. Instructions: Resume on 10/12/24. resume Eliquis on 10/12/24 ascorbic acid (vitamin C) 250 mg PO DAILY denosumab (Prolia) 60 mg subcut [id number] famotidine 40 mg PO BEDTIME ferrous gluconate 324 mg PO DAILY ienbrxwdvjr-lbxwllzht-qfzjvobr 100-62.5-25 mcg (Trelegy Ellipta) 1 inh inhalation DAILY 30 days furosemide 20 mg PO DAILY latanoprost 0.005% 1 drp ophthalmic (eye) BEDTIME linaclotide (Linzess) 145 mcg PO QAM omeprazole 20 mg PO BID Oxygen Home Use As directed quetiapine 100 mg PO BEDTIME sertraline 25 mg PO DAILY simvastatin 20 mg PO QPM sotalol 80 mg PO Q12H sucralfate 20 mL PO BID trazodone 25 - 50 mg PO BEDTIME verapamil ER 120 mg PO QAM HPI Comments Details: Fili is a 69-year-old Marshallese-speaking male patient of Dr. Madrigal. He has a past medical history of GERD, O2 dependence at bedtime of 2 L, asthma, CHF, pulmonary nodule, dyslipidemia, alcohol abuse, PVD, rectal polyp, renal cyst, nicotine dependence, cervical spondylosis, ascending aortic dilatation, bipolar disorder, emphysema, atrial fibrillation on anticoagulation, nonischemic cardiomyopathy, depression, hypertension, and peptic ulcer disease. He is being followed up on today via telehealth to review recent CT results. 12/15 no acute obstructive uropathy or urolithiasis. Multiple small bilateral renal cysts. Multiple too small to accurately characterize subcentimeter renal cortical le sions which statistically are likely cysts. No solid renal lesions identified. The bladder is unremarkable per radiology report. When asked he does continue to report intermittent episodes of scrotal discomfort. We did discuss in office assessment however patient with surgical intervention today and is unable to have in office appointment and therefore telehealth was scheduled. He reports pain is intermittent and not associated with nausea or vomiting. He reports pain has been present for 2-3 years. In review of patient's chart it appears a scrotal ultrasound was ordered and performed. 11/14 bilateral testicles with heterogeneous echotexture. Doppler flow of bilateral testicles within normal limits. Normal epididymides. Small complex right hydrocele. No acute process per radiology report. Per previous urology office note with Dr. Jc Villanueva the testicular pain is noted primarily upon palpation and has not been specifically timed or triggered by consistent factors beyond touch. On examination no testicular swelling. It also appears labs were ordered however never Will performed. We did discussed importance in doing so. PSAs are as follows 01/12 0.5. Patient with a history of microscopic hematuria and underwent cystoscopy under sedation with Dr. Jc Villanueva 03/15 that noted integrity of the urethral mucosal tissue was scarred, however, there was not a pinpoint stri cture, the prostatic urethra was nonobstructive. The right and left ureteral orifices were visualized in the normal position. There were mild to moderate trabeculations noted. There were no suspicious bladder lesions seen. In discussion with the patient today he remains vague at times when discussing urological concerns. We discussed follow up in office for further assessment of intermittent testicular pain he continues to experience. He is agreeable. We did discussed worsening symptoms. He otherwise offers no other issues or concerns at this time. [facility] Medical History Diarrhea GERD (gastroesophageal reflux disease) Compression fracture of body of thoracic vertebra Oxygen dependent Asthma On anticoagulant therapy CHF (congestive heart failure) History of home oxygen therapy Pulmonary nodule SOB (shortness of breath) Dyslipidemia Alcohol abuse PVD (peripheral vascular disease) Rectal polyp Calyceal diverticulum Renal cyst Acute exacerbation of emphysema Chronic hypoxemic respiratory failure Nicotine dependence, cigarettes, uncomplicated Compression fracture of T7 vertebra Cervical spondylosis Bilateral tinnitus Ascending aorta dilatation Opacity of lung on imaging study Generalized anxiety disorder Edentulous Bipolar 1 disorder GI bleed Emphysema lung BPH (benign prostatic hyperplasia) Compression fracture of lumbar vertebra Osteoporosis Atrial fibrillation with rapid ventricular response Compression fracture of body of thoracic vertebra History of alcohol abuse Compression fracture of T9 vertebra Nonischemic cardiomyopathy Right clavicle fracture Tubular adenoma of colon COPD (chronic obstructive pulmonary disease) Hyperlipidemia Hematemesis with nausea Dysphagia Systolic dysfunction Depression Hypertension Peptic ulcer disease Surgical History Hx of cystoscopy Hx of kyphoplasty History of surgery on left wrist (~03/21/10) Hx of endoscopy Hx of colonoscopy (~02/13/06) Hx of cataract surgery (~07/02/10) History of appendectomy History of gastric surgery Family History Mother Renal failure Father History of depression Brother Colon cancer Social History Household Members: Significant Other Housing: House Are you a primary spiritual care coordinator to a significant other at home: No Do you presently have visiting nurse 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 home 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) Alcohol intake: never Patient Tobacco Use Status: Former Tobacco user Tobacco use type: Cigarette Cigarette Packs Per Day: 0.5 Years Smoked: 55 e-Cigarette/Vaping Use: Former Use Second Hand Smoke Exposure: No Advance Directives Date on File: 09/02/22 service: No Current occupational status: unemployed and disabled 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 Review of Systems Const All systems reviewed & are unremarkable except as noted in HPI and below Physical Exam Const General: cooperative Resp Effort & Inspection: able to speak in complete sentences Psych Speech and movement: Clear speech present Attitude: cooperative Insight: Fair insight present (Psych) Judgement: Fair judgement present (Psych) Telehealth Telehealth Telehealth Platform: [facility] Location of provider rendering services: practice address Location of patient: address on file Patient Identification confirmed using: Name, : Yes Telehealth method: voice only Patient verbally consented to treatment: Yes Patient verbally consented to billing insurance company: Yes Patient informed of any privacy concerns related to visit: Yes Minutes spent on Phone/Video with Pt.: 20 Results Reviewed Results Reviewed: Date of Service: 11/25/24 Procedure(s): CT urogram Findings: Right lower lobe atelectasis and/or scarring. Small hiatal hernia. Bilateral renal excretion with no hydronephrosis or urolithiasis. There is a normal variant duplicated left ureter. There is normal renal enhancement with prominent lower pole parenchymal scarring in the right kidney. There are multiple small bilateral renal cysts. There are additional subcentimeter renal cortical hypodensities are too small to accurately characterize. There is a 2 cm lower pole lesion in the right kidney with density measurements 3 HU, 19 HU and 3 HU on precontrast, postcontrast and delayed imaging. No solid renal cortical lesion. There is fatty infiltration of the liver. Pancreas, spleen and adrenal glands are unremarkable. Gallbladder is partly contracted. No AAA. No bowel obstruction, pneumoperitoneum, or pneumatosis. No ascites. No significant mesenteric or paracolic edema. The appendix is not seen. Normal size prostate. Urinary bladder is smooth in outline. No intraluminal filling defect. T9, L1 and L2 kyphoplasty changes. IMPRESSION: 1. No acute obstructive uropathy or urolithiasis. 2. Multiple small bilateral renal cysts. Multiple too small to accurately characterize subcentimeter renal cortical lesions which statistically are likely cysts. No solid renal lesion identified. 3. Unremarkable urinary bladder. 4. Additional findings as above. Date of Service: 11/02/24 Procedure(s): US scrotum Findings: Right testicle heterogeneous echotexture, 3.5 x 2.0 x 2.4 cm. Left testicle heterogeneous echotexture, 3.1 x 1.6 x 2.0 cm. Color Doppler and arterial/venous spectral tracings of both testicles within normal limits. Normal epididymides. Small complex right hydrocele. IMPRESSION: 1. Heterogeneous bilateral testicular echotexture. Underlying infiltrative neoplasm can not be excluded. 2. No acute process. Assessment & Plan Assessment & Plan (1) Microscopic hematuria: Code(s): R31.29 - Other microscopic hematuria Category: Medical (2) BPH (benign prostatic hyperplasia): Code(s): N40.0 - Benign prostatic hyperplasia without lower urinary tract symptoms Category: Medical (3) Testicular pain: Code(s): N50.819 - Testicular pain, unspecified Category: Medical Plan Recent CT results were reviewed with the patient today; as noted above. Recent scrotal ultrasound results reviewed with the patient today; as noted above. We discussed importance of obtaining labs as discussed in ordered. We discussed follow-up in office for further assessment evaluation. All questions were answered. We did discussed worsening symptoms. Follow-up in 1-3 months; or sooner with any issues, concerns, and or questions. Orders: Orders PSA,Total (Free>4and<10) 12/02/24 Z12.5 - Encounter for screening for malignant neoplasm of prostate Testosterone, Free/Total 12/02/24 N52.9 - Male erectile dysfunction, un specified Patient Instructions: The patient had an opportunity to ask questions regarding the treatment plan. All questions were answered. Physical exam, labs, and imaging were discussed and reviewed in detail. As well as risks, benefits, and discussion of treatment choices. No major barriers to understanding were identified. The patient e xpressed understanding and agreement with the above treatment plan. The patient was made aware they should contact our office by phone for worsening of their current condition, the appearance of new symptoms, or with any questions or concerns. Compliance is encouraged with any medications and follow up testing that is ordered. It is a privilege to be allowed the opportunity to participate in? your urological care.? Again, if you have any questions or concerns If you have any questions or concerns please do not hesitate to contact me. The office is [phone]. This note is constructed using voice recognition software. While every effort has been made to ensure accuracy animal stunner errors may have been included. Yours sincerely, Pearl Whiting, FERRYBOAT HELPER-BC Coding Level of Care Code Tele Est Pt Level 3 (06758) Diagnoses Microscopic hematuria R31.29 BPH (benign prostatic hyperplasia) N40.0 Testicular pain N50.819
--- OUTSIDE RECORDS SUMMARY | 2024-12-09 07:49 | XMS_ITS | Encounter Summary ---
Author Organization [employer] Address [address] [place] [address] Care Team Providers Care Airport Traffic Controller Name Role Phone Rigoberto Us MD Primary Care Provide r Timothy Broussard RN Unavailable [phone] September Unavailable Reason for Visit * Reason Onset Date Comments Lab Orders 08/30/2022 Encounter Details Date Type Department Care Team (Late st Contact Info) Description 08/30/2022 Telephone [facility] [address] [place] [address] Rigoberto Us MD [address] [place], [place] [phone] Lab Orders Social History Tobacco Use Types [...] 08/30/2022 11:19 AM EST [place]c from [facility] [place] requesting an order for a lumbar spine for pt documented in this encounter Plan of Treatment Not on file documented as of this encounter Visit Diagnoses Not on filedocumented in this encounter Care Teams Airport Traffic Controller Relationship Specialty Start Date End Date Rigoberto Us MD [address] [place] [address] PCP - General Internal Medicine 03/30/18 Timothy Broussard, GIANNA [address] [place] [id number] Instructional TechnologistOperative Supervisor 12/26/23 04/07/[address] [place] [address] [address] [place] [address] Gastroenterology 09/09/24 documented as of this encounter
== END 2024-12-09 08:21 | disposition home or self-care (01) ==
LOC: HO.HUSH 07:46
PROVIDERS: PCP Internal Medicine; Visit Provider Nurse Practitioner Family
DX: R31.29 Other microscopic hematuria (principal); N40.0 Benign prostatic hyperplasia without lower urinary tract symptoms; N50.819 Testicular pain, unspecified
CPT/HCPCS: 99213

== ENCOUNTER 2024-12-09 08:23 | Day surgery (SDC) | payer MEDICARE, MEDICAID, SELFPAY ==
[2024-12-01 09:48] VITALS: BMI 28.9
--- NOTE | 2024-12-01 14:00 | P.CONAN_ITS ---
Documented by User: Nai Rush NP 12/01/24 14:09 HPI - Anesthesia Eval Consult details Narrative: 69yo M for EUA,Trans Anal Excision of rectal polyp s/p flex sig 09/2024 with TIVA COPD, Asthma, Chronic respiratory failure on supplemental O2 @ 3L pulse with activity, 2L cont while asleep. Follows [facility] [place] pulmo. Stable at 09/2024 office visit and optimized to proceed Follows [facility] Cardiology for afib, nonischemic CMP. Stable and optimized at 10/2024 office visit Eliquis for afib - ok'd to hold [facility] Active Problems Active Problems: All Active Problems Erectile dysfunction (Acute) Testicular pain (Acute) High grade dysplasia in colonic adenoma (Acute) Scapholunate instability (Acute) Microscopic hematuria (Acute) Degeneration, intervertebral disc, lumbosacral (Acute) Chronic idiopathic constipation (Acute) Small bowel motility disorder (Acute) Chronic heart failure (Acute) Erosive esophagitis (Acute) Arthritis of both elbows (Acute) Rectal prolapse (Acute) Glaucoma (Acute) Edentulous (Acute) Bipolar 1 disorder (Acute) COPD (chronic obstructive pulmonary disease) (Acute) Nonischemic cardiomyopathy (Acute) Chronic hypoxemic respiratory failure (Acute) Nicotine dependence, cigarettes, uncomplicated (Acute) BPH (benign prostatic hyperplasia) (Acute) Tubular adenoma of colon (Acute) Osteoporosis (Acute) Past Medical History Medical History Diarrhea GERD (gastroesophageal reflux disease) Compression fracture of body of thoracic vertebra Oxygen dependent Asthma On anticoagulant therapy CHF (congestive heart failure) History of home oxygen therapy Pulmonary nodule SOB (shortness of breath) Dyslipidemia Alcohol abuse PVD (peripheral vascular disease) Rectal polyp Calyceal diverticulum Renal cyst Acute exacerbation of emphysema Chronic hypoxemic respiratory failure Nicotine dependence, cigarettes, uncomplicated Compression fracture of T7 vertebra Cervical spondylosis Bilateral tinnitus Ascending aorta dilatation Opacity of lung on imaging study Generalized anxiety disorder Edentulous Bipolar 1 disorder GI bleed Emphysema lung BPH (benign prostatic hyperplasia) Compression fracture of lumbar vertebra Osteoporosis Atrial fibrillation with rapid ventricular response Compression fracture of body of thoracic vertebra History of alcohol abuse Compression fracture of T9 vertebra Nonischemic cardiomyopathy Right clavicle fracture Tubular adenoma of colon COPD (chronic obstructive pulmonary disease) Hyperlipidemia Hematemesis with nausea Dysphagia Systolic dysfunction Depression Hypertension Peptic ulcer disease Family History Family History Mother Renal failure Father History of depression Brother Colon cancer Family history of problems with anesthesia: No Surgical History Surgical History Hx of cystoscopy Hx of kyphoplasty History of surgery on left wrist (~03/21/10) Hx of endoscopy Hx of colonoscopy (~02/13/06) Hx of cataract surgery (~07/02/10) History of appendectomy History of gastric surgery History of Problems with Anesthesia: No Social History Social History Household Members: Significant Other Housing: House Are you a primary customer care specialist to a significant other at home: No Do you presently have visiting nurse or other home services: Yes ([employer]) Alcohol intake: never Patient Tobacco Use Status: Former Tobacco user Tobacco use type: Cigarette Cigarette Packs Per Day: 0.5 Years Smoked: 55 e-Cigarette/Vaping Use: Former Use Second Hand Smoke Exposure: No Use of substances other than those prescribed or required for medical reasons: No Have you been hit, kicked, punched, or otherwise hurt by someone within the past year? 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 Meds Allergies Allergy/AdvReac Type Severity Reaction Status Date / Time No Known Allergies (No Known Allergy Verified 12/09/24 07:56 Allergies*) Home Medications ?Medication ?Instructions ?Recorded ?Confirmed ?Last Taken ?Type latanoprost 0.005 % eye drops 1 drp ophthalmic (eye) B EDTIME 03/27/20 12/09/24 12/11/23 History simvastatin 20 mg tablet 20 mg PO QPM 07/31/2312/11/23 History ferrous gluconate 324 mg (38 mg 324 mg PO DAILY 12/09/24 10/06/24 History iron) tablet furosemide 20 mg tablet 20 mg PO DAILY 10/24/2311/2112/11/23 History ascorbic acid (vitamin C) 250 mg 250 mg PO DAILY 12/1112/09/24 12/11/23 History tablet sotalol 80 mg tablet 80 mg PO Q12H 12/12/2312/0910/08/24 History Oxygen Home Use 12/23/23 12/09/24 Unknown H istory sertraline 25 mg tablet 25 mg PO DAILY 12/23/2311/2112/09/24 History apixaban 5 mg tablet (Eliquis) 5 mg PO BID 04/21/2412/06/24 History Held on 10/08/24. Instructions: Resume on 10/12/24. resume Eliquis on 10/12/24 trazodone 50 mg tablet 25 - 50 mg PO BEDTIME 12/09/24 Unknown History verapamil 120 mg 24 hr 120 mg PO QAM 05/07/2412/0912/09/24 History capsule,extended release denosumab 60 mg/mL subcutaneous 60 mg subcut [id number] 09/21/24 12/09/24 Unknown History syringe (Prolia) quetiapine 100 mg tablet 100 mg PO BEDTIME 09/21/24 0 12/09/24 Unknown History acetaminophen 500 mg tablet 1,000 mg PO Q8H PRN mild p ain 10/04/24 12/09/24 Unknown History albuterol sulfate 2.5 mg/3 mL 2.5 mg inhalation BID sh ortness of 12/01/24 12/09/24 Unknown History (0.083 %) solution for nebulization breath or wheezing famotidine 40 mg tablet 40 mg PO BEDTIME for heartbu rn 12/01/24 12/09/24 Unknown History Exam Height,Weight and Vital Signs: Height 5 ft 11 in Weight 93.894 kg Pertinent Lab Results Pertinent Lab Results: Laboratory Tests 05/13/24 06/30/24 17:07 10:13 WBC 7.7 Hgb 14.3 Hct 42.6 Plt Count 204 Sodium 141 Potassium 4.0 Chloride 107 Carbon Dioxide 28 BUN 20 H Creatinine 0.89 Narrative Narrative: EKG 10/2024 NSR @ 61 ? LAE Nonspecific ST and T wave abn ECHO 07/2024 1. LV size nml. Mild conc LVH. Overall LV sys function mild-moderately impaired with EF 40-45%. Grade 1 DD with impaired relaxation filling patter. LA pressures nml. False tendone visualized in LV. No evidence of WMA. 2. LA size nml. 3. RV nml in size with nml systolic function. 4. No evidence of pulmo htn 5. Sclerodegenerative valve disease with nml function 6. No pericardial effusion 7. Asc and transverse aorta are dilated, measuring up to 4.1cm and 4.0 cm c/w 2022 report, asc aorta and aortic arch are dilated on current study Assessment and Plan Assessment Anesthesia Assessment: Chart Reviewed Final Anesthetic Review Family History of Problems with Anesthesia: No History of Problems with Anesthesia: No Documented by User: Pablo Mcneil MD 12/09/24 10:53 [facility] Past Medical History Medical History Diarrhea GERD (gastroesophageal reflux disease) Compression fracture of body of thoracic vertebra Oxygen dependent Asthma On anticoagulant therapy CHF (congestive heart failure) History of home oxygen therapy Pulmonary nodule SOB (shortness of breath) Dyslipidemia Alcohol abuse PVD (peripheral vascular disease) Rectal polyp Calyceal diverticulum Renal cyst Acute exacerbation of emphysema Chronic hypoxemic respiratory failure Nicotine dependence, cigarettes, uncomplicated Compression fracture of T7 vertebra Cervical spondylosis Bilateral tinnitus Ascending aorta dilatation Opacity of lung on imaging study Generalized anxiety disorder Edentulous Bipolar 1 disorder GI bleed Emphysema lung BPH (benign prostatic hyperplasia) Compression fracture of lumbar vertebra Osteoporosis Atrial fibrillation with rapid ventricular response Compression fracture of body of thoracic vertebra History of alcohol abuse Compression fracture of T9 vertebra Nonischemic cardiomyopathy Right clavicle fracture Tubular adenoma of colon COPD (chronic obstructive pulmonary disease) Hyperlipidemia Hematemesis with nausea Dysphagia Systolic dysfunction Depression Hypertension Peptic ulcer disease Functional capacity: independent ambulation Family History Family History Mother Renal failure Father History of depression Brother Colon cancer Surgical History Surgical History Hx of cystoscopy Hx of kyphoplasty History of surgery on left wrist (~03/21/10) Hx of endoscopy Hx of colonoscopy (~02/13/06) Hx of cataract surgery (~07/02/10) History of appendectomy History of gastric surgery Social History Social History Household Members: Significant Other Housing: House Are you a primary customer care specialist to a significant other at home: No Do you presently have visiting nurse or other home services: Yes ([employer]) Alcohol intake: never Patient Tobacco Use Status: Former Tobacco user Tobacco use type: Cigarette Cigarette Packs Per Day: 0.5 Years Smoked: 55 e-Cigarette/Vaping Use: Former Use Second Hand Smoke Exposure: No Use of substances other than those prescribed or required for medical reasons: No Have you been hit, kicked, punched, or otherwise hurt by someone within the past year? 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 Meds Allergies Allergy/AdvReac Type Severity Reaction Status Date / Time No Known Allergies (No Known Allergy Verified 12/09/24 07:56 Allergies*) Home Medications ?Medication ?Instructions ?Recorded ?Confirmed ?Last Taken ?Type latanoprost 0.005 % eye drops 1 drp ophthalmic (eye) B EDTIME 03/27/20 12/09/24 12/11/23 History simvastatin 20 mg tablet 20 mg PO QPM 07/31/2312/11/23 History ferrous gluconate 324 mg (38 mg 324 mg PO DAILY 12/09/24 10/06/24 History iron) tablet furosemide 20 mg tablet 20 mg PO DAILY 10/24/2311/2112/11/23 History ascorbic acid (vitamin C) 250 mg 250 mg PO DAILY 12/1112/09/24 12/11/23 History tablet sotalol 80 mg tablet 80 mg PO Q12H 12/12/2312/0910/08/24 History Oxygen Home Use 12/23/23 12/09/24 Unknown H istory sertraline 25 mg tablet 25 mg PO DAILY 12/23/2311/2112/09/24 History apixaban 5 mg tablet (Eliquis) 5 mg PO BID 04/21/2412/06/24 History Held on 10/08/24. Instructions: Resume on 10/12/24. resume Eliquis on 10/12/24 trazodone 50 mg tablet 25 - 50 mg PO BEDTIME 12/09/24 Unknown History verapamil 120 mg 24 hr 120 mg PO QAM 05/07/2412/0912/09/24 History capsule,extended release denosumab 60 mg/mL subcutaneous 60 mg subcut [id number] 09/21/24 12/09/24 Unknown History syringe (Prolia) quetiapine 100 mg tablet 100 mg PO BEDTIME 09/21/24 0 12/09/24 Unknown History acetaminophen 500 mg tablet 1,000 mg PO Q8H PRN mild p ain 10/04/24 12/09/24 Unknown History albuterol sulfate 2.5 mg/3 mL 2.5 mg inhalation BID sh ortness of 12/01/24 12/09/24 Unknown History (0.083 %) solution for nebulization breath or wheezing famotidine 40 mg tablet 40 mg PO BEDTIME for heartbu rn 12/01/24 12/09/24 Unknown History Exam Exam Date and Time: 12/09/2024 Airway TM Dist: >3cm Neck ROM: Full Loose/Missing/Broken Teeth: No (a fib) Heart: a fib Lungs: distant breath sounds Other: alert Assessment and Plan Assessment Anesthesia Assessment: Anesthesia Plan Discussed and Smoking Cess. Discussed Final Anesthetic Review NPO: Yes ASA Class: III Final Preanesthetic Review: No Changes in Pt Med Stat, Meds/Allgs Chart Reviewed, Consent Obtained/Reviewed and Anes Risks/Benef Reviewed Patient Risk: Intermediate Procedure Risk: Intermediate Anesthetic Plan Anesthetic Plan: GA Disposition: Standard PACU
[2024-12-09] VITALS (7 sets, daily range): BP systolic 106–131; BP diastolic 76–88; PULSE 72–84; RESP 18–22; TEMP 36.1; O2SAT 92–97; BMI 13.0; BMI 28.7
[2024-12-09] MEDS: Lactated Ringers 1,000 ML 50 ML IVCONT (09:19)
--- NOTE | 2024-12-09 10:20 | MHC.SHP ---
Pre-Procedural Eval Section A - 24 Hr Update-Section A only Date of Service: 12/09/24 Section B - Complete if H&P > 30 days Chief Complaint: Rectal polyp Details of Present Illness: He has a polyp with high-grade dysplasia in the rectum Relevant Family History (Specify if Yes): No Relevant Social History: None Present Medications: see Short Stay Collaborative assessment Medical History: Significant History (COPD, CHF, cardiomyopathy, smoker, BPH, bipolar disorder) Allergies: Allergies Allergy/AdvReac Type Severity Reaction Status Date / Time No Known Allergies (No Known Allergy Verified 12/09/24 07:56 Allergies*) Review of Systems Sugical H&P ROS: Negative: Constitution, Cardiovascular and Gastrointestinal and Yes, Specify: Respiratory (On O2) Exam Surgical H&P Exam: Normal: Heart and Normal: Abdomen and Significant Findings: Lungs (Short of breath as baseline, on O2) Plan Diagnosis/Plan: Unchanged I have reviewed the history and physical and performed a pertinent physical examination on my patient. No changes have occurred unless specified. Time Spent With Patient Time: Total time managing care of this patient today ____ minutes.
[2024-12-09] MEDS: cefoTEtan disodium 2 GM VIAL IVPUSH (11:19)
--- NOTE | 2024-12-09 11:46 | W.PM.OPN ---
Operative Note Operative Note Date of Service: 12/09/24 Narrative: Preop diagnosis: Distal rectal polyp Postop diagnosis: The same Procedure: Exam under anesthesia, transanal excision of the distal rectal polyp Surgeon: Don Gonzales MD The patient is a 69-year-old male referred to me because of a polyp on the distal rectum near the anal canal seen on colonoscopy. This was deemed to be not endoscopically removable so he was scheduled for transanal excision. He understood the technique of the planned procedure as well as the risks, benefits, and alternatives He was brought to the operating room. He was placed in prone royce-knife position under general anesthesia via endotracheal tube. The buttocks were retracted with wide tape laterally. The perianal area was prepped and draped in the usual sterile fashion. A surgical time-out was done. The patient received Cefotan 2 g IV preoperatively. The perianal area was infiltrated with lidocaine 1%. Examination of the anal orifice did not reveal any except for very prominent external hemorrhoids. I inserted the Melvin Guerrero retractor. I examined the anal canal circumferentially. There was note of a lot of internal external hemorrhoidal columns. In the very proximal anal canal near the distal rectum at the anterior area was note of what appeared to be an indurated polypoid mass. There were no other lesions in the rest of the anal canal or distal rectum that could be seen. I applied a Frey grasper at this polypoid mass. I made a besyqz-ld-ycoln stitch proximal to this with a chromic 3-0 stitch. I made an incision around this polypoid mass with the canal with a blade 15. I excised this polyp above the plane of the sphincters with scissors. I closed the incision with a running chromic 3-0 stitch I made sure that there was good hemostasis. I irrigated. Once hemostasis was confirmed, I then proceeded to steady the perianal area with Marcaine 0.5% for postop analgesia. Again re-examination of the entire anal canal distal rectum did reveal any other mass. I applied a rolled Gelfoam packing through the anal canal. The procedure was completed The patient tolerated procedure well. There were no immediate complications Initial and final counts of sponges and instruments were correct. Estimated blood loss was about 25 cc. The patient was extubated without difficulty and transferred to recovery room with stable vital signs.
== END 2024-12-09 13:00 | disposition home or self-care (01) ==
PROVIDERS: PCP Nurse Practitioner Family; Visit Provider Surgery
PROC: (CPT 45171; principal; 2024-12-09 10:30)
DX: C20 Malignant neoplasm of rectum (principal); K64.8 Other hemorrhoids; K64.4 Residual hemorrhoidal skin tags; Z86.0101 Personal history of adenomatous and serrated colon polyps; Z80.0 Family history of malignant neoplasm of digestive organs; K59.04 Chronic idiopathic constipation; I10 Essential (primary) hypertension; E78.5 Hyperlipidemia, unspecified; I48.91 Unspecified atrial fibrillation; J44.9 Chronic obstructive pulmonary disease, unspecified; J96.11 Chronic respiratory failure with hypoxia; Z99.81 Dependence on supplemental oxygen; Z87.891 Personal history of nicotine dependence; Z79.01 Long term (current) use of anticoagulants; Z79.899 Other long term (current) drug therapy; Z79.02 Long term (current) use of antithrombotics/antiplatelets
CPT/HCPCS: 45171; 88305; J0665; J1100; J2003; J2405; J2704; J3010

== ENCOUNTER → 2024-12-09 08:23 | Outpatient (BNV) | payer MEDICARE, MEDICAID, SELFPAY | PROVIDERS: PCP Nurse Practitioner Family; Visit Provider Surgery | DX: K62.1 Rectal polyp (principal) | CPT/HCPCS: 45171 ==

== ENCOUNTER 2024-12-22 09:54 | Outpatient (AMB) | payer MEDICARE, MEDICAID, SELFPAY ==
--- NOTE | 2024-12-22 09:56 | A.OFFVIS_ITS ---
Vital Signs 12/22/24 10:04 Weight 208 lb BP 107/78 Blood Pressure Location Rt brachial Position Sitting Pulse 108 H Intake Visit Reasons: s/p trans anal exc. of rectal polyp Intake Note: Patient here s/p transanal excision of the distal rectal polyp on 12-09-2024. Patient c/o: diarrhea, pain but taking tylenol as needed. Had noticed blood after BM. [employer] Principal Required: No Accompanied by: sister Kim Allergies No Known Allergies (No Known Allergies*) Allergy (Verified 12/22/24 10:03) Medication List - Last Reconciled 12/22/24 by Don Gonzales MD acetaminophen 1,000 mg PO Q8H PRN albuterol sulfate 2.5 mg inhalation BID albuterol sulfate 90 mcg/actuation 2 inhalations inhalation Q6H PRN 30 days apixaban (Eliquis) 5 mg PO BID Held on 10/08/24. Instructions: Resume on 10/12/24. resume Eliquis on 10/12/24 ascorbic acid (vitamin C) 250 mg PO DAILY denosumab (Prolia) 60 mg subcut [id number] docusate sodium (Colace) 100 mg PO BID famotidine 40 mg PO BEDTIME ferrous gluconate 324 mg PO DAILY vrpmydghnio-uucurfjvc-lzijhvga 100-62.5-25 mcg (Trelegy Ellipta) 1 inh inhalation DAILY 30 days furosemide 20 mg PO DAILY latanoprost 0.005% 1 drp ophthalmic (eye) BEDTIME linaclotide (Linzess) 145 mcg PO QAM omeprazole 20 mg PO BID Oxygen Home Use As directed quetiapine 100 mg PO BEDTIME sertraline 25 mg PO DAILY simvastatin 20 mg PO QPM sotalol 80 mg PO Q12H sucralfate 20 mL PO BID trazodone 25 - 50 mg PO BEDTIME verapamil ER 120 mg PO QAM HPI HPI s/p trans anal exc. of rectal polyp: Details: He underwent transanal excision of a distal rectal polyp under anesthesia last 12/09/2024. He tolerated procedure well and is here to discuss the path report. He says he is doing well currently. He denies any significant pain or bleeding. [facility] Medical History (Updated 12/22/24 @ 10:10 by Don Gonzales MD) Rectal adenocarcinoma Diarrhea GERD (gastroesophageal reflux disease) Compression fracture of body of thoracic vertebra Oxygen dependent Asthma On anticoagulant therapy CHF (congestive heart failure) History of home oxygen therapy Pulmonary nodule SOB (shortness of breath) Dyslipidemia Alcohol abuse PVD (peripheral vascular disease) Rectal polyp Calyceal diverticulum Renal cyst Acute exacerbation of emphysema Chronic hypoxemic respiratory failure Nicotine dependence, cigarettes, uncomplicated Compression fracture of T7 vertebra Cervical spondylosis Bilateral tinnitus Ascending aorta dilatation Opacity of lung on imaging study Generalized anxiety disorder Edentulous Bipolar 1 disorder GI bleed Emphysema lung BPH (benign prostatic hyperplasia) Compression fracture of lumbar vertebra Osteoporosis Atrial fibrillation with rapid ventricular response Compression fracture of body of thoracic vertebra History of alcohol abuse Compression fracture of T9 vertebra Nonischemic cardiomyopathy Right clavicle fracture Tubular adenoma of colon COPD (chronic obstructive pulmonary disease) Hyperlipidemia Hematemesis with nausea Dysphagia Systolic dysfunction Depression Hypertension Peptic ulcer disease Surgical History History of rectal polypectomy (12/08/24) Hx of cystoscopy Hx of kyphoplasty History of surgery on left wrist (~03/21/10) Hx of endoscopy Hx of colonoscopy (~02/13/06) Hx of cataract surgery (~07/02/10) History of appendectomy History of gastric surgery Family History Mother Renal failure Father History of depression Brother Colon cancer Social History Household Members: Significant Other Housing: House Are you a primary patient centered care specialist to a significant other at home: No Do you presently have visiting nurse or other home services: Yes (DESKTOP MANAGER) Alcohol intake: never Patient Tobacco Use Status: Former Tobacco user Tobacco use type: Cigarette Cigarette Packs Per Day: 0.5 Years Smoked: 55 e-Cigarette/Vaping Use: Former Use Second Hand Smoke Exposure: No Advance Directives Date on File: 09/02/22 service: No Current occupational status: unemployed and disabled 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 Review of Systems Const Denies chills and Denies fever(s) Card Denies chest pain, Reports dyspnea and Reports dyspnea on exertion Resp Reports cough, Reports dyspnea and Reports dyspnea on exertion GI Denies abdominal pain Physical Exam Vital Signs: Last Vital Signs Pulse 108 H 12/22/24 10:04 BP 107/78 12/22/24 10:04 Const Other: Frail looking, on O2 by nasal cannula Resp Other: Appears mildly short of breath, on home O2 GI Other: Rectal exam shows no infection of the trans anal excision site, he does have a small external hemorrhoid Assessment & Plan Assessment & Plan (1) Rectal adenocarcinoma: Code(s): C20 - Malignant neoplasm of rectum Category: Medical Plan: Status post transanal excision of a distal rectal polyp. Unfortunately, his path report shows an adenocarcinoma, T2, with negative margins although closed in the deep margins He has multiple other medical problems including cardiomyopathy, COPD, and is on home O2. He has poor baseline level of excision We will refer him to the oncology service to evaluate for the benefit of adjuvant chemotherapy and radiation. I will see him again in the office in about 1 month. We will need to do close surveillance on him as well. He is unlikely to be a candidate for major surgery down the line. Coding Level of Care Code Est Pt Level 3 (25865) Diagnoses Rectal adenocarcinoma C20
[2024-12-22 10:04] VITALS: BP 107/78; PULSE 108
--- OUTSIDE RECORDS SUMMARY | 2024-12-22 10:18 | XMS_ITS | Encounter Summary ---
Author Organization [employer] Address [address] [place] [address] Care Team Providers Care Cash Sales Audit Clerk Name Role Phone Rigoberto Us MD Primary Care Provide r Timothy Broussard RN Unavailable [phone] September Unavailable Reason for Visit * Reason Onset Date Comments Lab Orders 08/30/2022 Encounter Details Date Type Department Care Team (Late st Contact Info) Description 08/30/2022 Telephone [facility] [address] [place] [address] Rigoberto Us MD [address] [place], [place] [phone] Lab Orders Social History Tobacco Use Types [...] - 08/30/2022 11:19 AM EST [place]c [place] [facility] [place] requesting an order for a lumbar spine for pt documented in this encounter Plan of Treatment Not on file documented as of this encounter Visit Diagnoses Not on filedocumented in this encounter Care Teams Cash Sales Audit Clerk Relationship Specialty Start Date End Date Rigoberto Us MD [address] [place] [address] PCP - General Internal Medicine 03/30/18 Timothy Broussard, GIANNA [address] [place] [id number] Drawing Kiln OperatorSweet Goods Machine Operator 12/26/23 04/07/[address] [place] [address] [address] [place] [address] Gastroenterology 09/09/24 documented as of this encounter
== END 2024-12-22 10:13 | disposition home or self-care (01) ==
LOC: HO.HGS 09:55
PROVIDERS: PCP Nurse Practitioner Family; Visit Provider Surgery
DX: C20 Malignant neoplasm of rectum (principal)
CPT/HCPCS: 99024

== ENCOUNTER → 2024-12-22 09:54 | Outpatient (BNVA) | payer MEDICARE, MEDICAID, SELFPAY | PROVIDERS: PCP Nurse Practitioner Family; Visit Provider Surgery | DX: C20 Malignant neoplasm of rectum (principal) | CPT/HCPCS: 99212 ==

== ENCOUNTER 2025-01-06 09:40 | Outpatient (REF) | payer MEDICARE, MEDICAID, SELFPAY ==
[2025-01-06 09:54] LABS: MANUAL DIFF FLAG NO
--- OUTSIDE RECORDS SUMMARY | 2025-01-06 10:01 | XMS_ITS | Encounter Summary ---
Author Organization [facility] Address [address] [place] [address] Care Team Providers Care Insurance Examiner Name Role Phone Rigoberto Us MD Primary Care Provide r Timothy Broussard RN Unavailable [phone] September Unavailable Reason for Visit * Reason Onset Date Comments Lab Orders 08/30/2022 Encounter Details Date Type Department Care Team (Late st Contact Info) Description 08/30/[address] [facility] [address] [place] [address] Rigoberto Us MD [address] [place], [place] [phone] Lab Orders Social History Tobacco Use Types [...] - 08/30/2022 11:19 AM EST [place] [facility] [place] for a [place] for pt documented in this encounter Plan of Treatment Upcoming Encounters Date Type Department Care Team (Late st Contact Info) Description 01/11/2025 3:00 PM EDT Office Visit [facility] [address] [place] [address] Rigoberto Us MD [address] [place] [phone] documented as of this encounter Visit Diagnoses Not on filedocumented in this encounter Care Teams Insurance Examiner Relationship Specialty Start Date End Date Rigoberto Us MD [address] [place] [address] PCP - General Internal Medicine 03/30/18 Timothy Broussard RN [address] [place] [address] Traffic Survey TechnicianHead Men'S Tennis Coach 12/26/23 04/07/24 KathySeptember [address] 3rd [place] [address] Gastroenterology 09/09/24 documented as of this encounter
[2025-01-06 10:42] LABS: Hematocrit 46.7 % (42.0-52.0); Hemoglobin 15.6 g/dl (14.0-18.0); Imm Gran Abs Auto 0.03 X10*3/uL (0.00-0.03); Imm Gran Pct Auto 0.3 % (0.0-0.4); Lymphocytes Absolute Auto 1.1 X10*3/uL (1.2-4.9); Mean Corpuscular HGB Conc 33.4 g/dl (31.0-36.0); Mean Corpuscular Hemoglobin 30.5 pg (27.0-33.0); Mean Corpuscular Volume 91.4 fL (80.0-98.0); NRBC Abs Auto 0.000 X10*3/uL (0.0-0.012); NRBC Pct Auto 0.0 /100WBC (0.0-0.2); Platelet Count 206 X10*3/uL (160-400); Red Blood Count 5.11 X10*6/uL (4.60-5.80); White Blood Count 8.8 X10*3/uL (4.8-10.8)
[2025-01-06 11:35] LABS: Alanine Aminotransferase 18 U/L (0-40); Albumin Level 4.1 g/dL (3.5-5.0); Alkaline Phosphatase 62 U/L (39-117); Anion Gap 11 (12-20); Aspartate Amino Transferase 16 U/L (5-37); Blood Urea Nitrogen 11 mg/dL (9-16); Calcium 8.6 mg/dL (8.4-10.2); Carbon Dioxide 27 mmol/L (22-29); Chloride 108 mmol/L (96-108); Estimated Glomerular Filt Rate > 60; Iron 96 mcg/dL (45-160); Percent Iron Saturation 37 % (15-50); Potassium 3.5 mmol/L (3.3-5.1); Sodium 142 mmol/L (135-145); Total Iron Binding Capacity 259 mcg/dL (228-428); Total Protein 7.4 g/dL (6.5-8.0); Unsaturated Iron Binding 163 ug/dL
[2025-01-06 11:57] LABS: PSA,Total (Free>4and<10) 0.46 ng/mL (0.00-4.00)
[2025-01-12 15:18] LABS: Testosterone, Free 35.6 pg/mL (30.0-135.0)
== END 2025-01-06 09:41 | disposition home or self-care (01) ==
LOC: HO.LAB 09:40
PROVIDERS: Nurse Practitioner Family; PCP Internal Medicine; Visit Provider Internal Medicine Endocrinology, Diabetes & Metabolism
DX: Z12.5 Encounter for screening for malignant neoplasm of prostate (principal); M81.0 Age-related osteoporosis without current pathological fracture; N52.9 Male erectile dysfunction, unspecified; D50.9 Iron deficiency anemia, unspecified
CPT/HCPCS: 36415; 80053; 83540; 84153; 84402; 84403; 85025

== ENCOUNTER 2025-01-11 11:43 | Outpatient (AMB) | payer MEDICARE, MEDICAID, SELFPAY ==
--- NOTE | 2025-01-11 11:57 | MHC.OFFVIS ---
Vital Signs 01/11/25 12:03 Height 5 ft 11 in Weight 206 lb BMI 28.7 BP 112/78 Blood Pressure Location Lt brachial Position Sitting Pulse 96 Pulse Oximetry (%) 96 Oxygen Delivery Method Nasal Cannula Oxygen Flow Rate 2 Intake Visit Reasons: s/p Colonoscopy Intake Note: Patient follow up for Colonoscopy results. Patient cc: diarrhea daily, acid reflux on and off, denies any other GI issues. Temporary Staff Accountant Required: No Accompanied by: Sister Allergies No Known Allergies (No Known Allergies*) Allergy (Verified 01/11/25 11:56) HPI HPI s/p Colonoscopy: Details: Assessment & Plan (1) Small bowel motility disorder: Code(s): K59.9 - Functional intestinal disorder, unspecified Category: Medical (2) Erosive esophagitis: Code(s): K22.10 - Ulcer of esophagus without bleeding Category: Medical (3) Peptic ulcer disease: Code(s): K27.9 - Peptic ulcer, site unspecified, unspecified as acute or chronic, without hemorrhage or perforation Category: Medical (4) Tubular adenoma of colon: Comment: 04/2024 scope= rectal adenoma with high-grade dysplasia and tubular adenomas; 2016 scope = TA repeat 5 years aeb Code(s): D12.6 - Benign neoplasm of colon, unspecified Category: Medical (5) Chronic hypoxemic respiratory failure: Code(s): J96.11 - Chronic respiratory failure with hypoxia Category: Medical (6) High grade dysplasia in colonic adenoma: Comment: on 04/2024 scope Code(s): D12.6 - Benign neoplasm of colon, unspecified Category: Medical Plan Kyrgyz #Sister translates per pt rquest His current GI regimen consists of omeprazole 20 mg twice a day, psyllium husk fiber, metoclopramide 10 mg 4 times a day, Linzess 145 micro g daily and famotidine 40 mg at bedtime for breakthrough He has had a hard time lately, he was hospitalized with pneumonia and sepsis. He is now on oxygen 2 L N/C. He is c/o diarrhea recently. But then his sister says he has not moved his bowels for 2 days. There is some confusion about this vs post prandial urgency, so I ask them to keep a log. The patient says he stopped eating roots that this caused his diarrhea. He continues to have burning that wakes him up at night, but he is adherent to his omeprazole 20 mg twice a day (I am reluctant to increase it more as he is on blood thinners) and famotidine at night. He is also taking sucralfate at noon. He does have a small sliding hiatal hernia likely contributing to his reflux. He does have a history of erosive esophagitis but given his respiratory issues I am reluctant to add an EGD to his colonoscopy. His colonoscopy for multiple polyposis is scheduled fro September. The procedure was well tolerated. The results were explained and the patient is agreeable to the follow-up interval as stated. The bowel pattern has returned to normal. Education was provided to tell any 1st degree relatives about their findings to be sure that they are screened by age 45. Educated that they will be put on a recall list when it is time for their repeat scope but should they move out of state or away from the hospital they will need to remember along with their primary to repeat the procedure in a timely fashion to avoid any adverse complications. Will re-evaluate him after his colonoscopy. Medications: Changed From famotidine 40 mg PO BEDTIME PRN 90 tabs 0RF for heartburn To famotidine 40 mg PO BEDTIME 90 tabs 1RF for heartburn Refilled linaclotide (Linzess) 145 mcg PO QAM 90 caps 2RF Discontinued metoclopramide HCl Discontinued Reason: Doctor's Order 10 mg PO BID 60 tabs 0RF 8 COLONOSCOPY Findings: Sigmoid Colon: Moderate diverticulosis Rectum: A 10-12 mm sessile polyp - removed with a stiff hot snare and labeled rectal polyp # 1 A 12-15 mm polyp just proximal to the anal verge seen on retroflexed exam. Polyp was raised with 3 cc of Eleview and removed partially with a stiff hot snare Multiple attempts to snare the polyp were unsuccessful due to friable tissue Ano-rectum: Moderate internal hemorrhoids Colon preparation: Good after some irrigation. Impression and Post Procedure Diagnosis: Flexible Sigmoidoscopy Findings: One medium sized polyp was removed A 12-15 mm polyp just proximal to the anal verge seen on retroflexed exam. Polyp was raised with 3 cc of Eleview and removed partially with a stiff hot snare Multiple attempts to snare the polyp were unsuccessful due to friable tissue Moderate diverticulosis seen in the sigmoid colon Moderate hemorrhoids on retroflexed exam. Plan: Pt has a FU appointment on 11/23/24 with Nelda Chavez NP Pt was discussed with Dr Sandhu and referred for trans-anal resection Repeat Colonoscopy in 1 year for FU of adenomatous colon polyps. Above findings were reviewed with the patient. ADDENDUM: BIOPSIES SHOWED: A. Rectum, polypectomy: Hyperplastic mucosal polyp. B. Rectum, #2, polypectomy: Polypoid colonic mucosa with high grade dysplasia and thermal artifact. BIOPSY Received: 12/09/24 Diagnosis Anal polyp, transanal excision: -Invasive adenocarcinoma, residual, G2. -Positive for vascular and lymphatic invasion. -Deep margin is very close, within microns. -Tumor undermines benign squamous and colonic mucosa. -Adenoma with high grade dysplasia. -Hemorrhoidal vessels present OPERATIVE NOTE DR. SANDHU Operative Note Operative Note Date of Service: 12/09/24 Narrative: Preop diagnosis: Distal rectal polyp Postop diagnosis: The same Procedure: Exam under anesthesia, transanal excision of the distal rectal polyp Surgeon: Don Sandhu MD The patient is a 69-year-old male referred to me because of a polyp on the distal rectum near the anal canal seen on colonoscopy. This was deemed to be not endoscopically removable so he was scheduled for transanal excision. He understood the technique of the planned procedure as well as the risks, benefits, and alternatives He was brought to the operating room. He was placed in prone royce-knife position under general anesthesia via endotracheal tube. The buttocks were retracted with wide tape laterally. The perianal area was prepped and draped in the usual sterile fashion. A surgical time-out was done. The patient received Cefotan 2 g IV preoperatively. The perianal area was infiltrated with lidocaine 1%. Examination of the anal orifice did not reveal any except for very prominent external hemorrhoids. I inserted the Melvin Guerrero retractor. I examined the anal canal circumferentially. There was note of a lot of internal external hemorrhoidal columns. In the very proximal anal canal near the distal rectum at the anterior area was note of what appeared to be an indurated polypoid mass. There were no other lesions in the rest of the anal canal or distal rectum that could be seen. I applied a Frey grasper at this polypoid mass. I made a [id number] stitch proximal to this with a chromic 3-0 stitch. I made an incision around this polypoid mass with the canal with a blade 15. I excised this polyp above the plane of the sphincters with scissors. I closed the incision with a running chromic 3-0 stitch I made sure that there was good hemostasis. I irrigated. Once hemostasis was confirmed, I then proceeded to steady the perianal area with Marcaine 0.5% for postop analgesia. Again re-examination of the entire anal canal distal rectum did reveal any other mass. I applied a rolled Gelfoam packing through the anal canal. The procedure was completed The patient tolerated procedure well. There were no immediate complications Initial and final counts of sponges and instruments were correct. Estimated blood loss was about 25 cc. The patient was extubated without difficulty and transferred to recovery room with stable vital signs. TODAYS VISIT He is still having diarrhea, he DID stop the reglan, but is continuing Linzess 145mg. I want him to stop the Linzess completely since he is fearful of eating r/t diarrhea. Because of a large friable polyp that was not retrieved, he was sent to Dr. Sandhu for trans rectal resection. This showed adenocarinoma, and the pt is not a candidfate for partial coloectyomy r/t respiratory status. Will be seeing Onc for chemo soon ROV 4 weeks. [facility] Medical History (Updated 01/12/25 @ 16:59 by JUAN Low) Rectal adenocarcinoma Diarrhea GERD (gastroesophageal reflux disease) Compression fracture of body of thoracic vertebra Oxygen dependent Asthma On anticoagulant therapy CHF (congestive heart failure) History of home oxygen therapy Pulmonary nodule SOB (shortness of breath) Dyslipidemia Alcohol abuse PVD (peripheral vascular disease) Rectal polyp Calyceal diverticulum Renal cyst Acute exacerbation of emphysema Chronic hypoxemic respiratory failure Nicotine dependence, cigarettes, uncomplicated Compression fracture of T7 vertebra Cervical spondylosis Bilateral tinnitus Ascending aorta dilatation Opacity of lung on imaging study Generalized anxiety disorder Edentulous Bipolar 1 disorder GI bleed Emphysema lung BPH (benign prostatic hyperplasia) Compression fracture of lumbar vertebra Osteoporosis Atrial fibrillation with rapid ventricular response Compression fracture of body of thoracic vertebra History of alcohol abuse Compression fracture of T9 vertebra Nonischemic cardiomyopathy Right clavicle fracture Tubular adenoma of colon COPD (chronic obstructive pulmonary disease) Hyperlipidemia Hematemesis with nausea Dysphagia Systolic dysfunction Depression Hypertension Peptic ulcer disease Surgical History History of rectal polypectomy (12/08/24) Hx of cystoscopy Hx of kyphoplasty History of surgery on left wrist (~03/21/10) Hx of endoscopy Hx of colonoscopy (~02/13/06) Hx of cataract surgery (~07/02/10) History of appendectomy History of gastric surgery Family History Mother Renal failure Father History of depression Brother Colon cancer Social History Household Members: Significant Other Housing: House Are you a primary palliative care coordinator to a significant other at home: No Do you presently have visiting nurse or other home services: Yes (TAPE DUPLICATOR) Alcohol intake: never Patient Tobacco Use Status: Former Tobacco user Tobacco use type: Cigarette Cigarette Packs Per Day: 0.5 Years Smoked: 55 e-Cigarette/Vaping Use: Former Use Second Hand Smoke Exposure: No Advance Directives Date on File: 09/02/22 service: No Current occupational status: unemployed and disabled 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 Review of Systems Const Denies fatigue, Denies fever(s), Denies night sweats, Denies poor appetite and Denies weight loss ENT Reports Normal hearing present, Denies dysphagia, Denies odynophagia, Denies throat swelling and Denies tongue swelling Card Reports no additional complaints and Reports dyspnea on exertion Resp Reports dyspnea on exertion GI Details: Denies abdominal pain, Denies melena, Denies bloating, Denies hematochezia, Denies constipation, Denies GI cramping, Denies dysphagia, Denies excessive flatus, Denies early satiety, Reports heartburn, Reports diarrhea, Denies nausea, Denies odynophagia, Denies vomiting and Denies hematemesis Skin/Breast Denies pruritus, Denies lesions, Denies rash and Denies jaundice Neuro Reports Normal hearing present and Denies Abnormal speech present Endo Denies fatigue Aller/Immun Denies throat swelling and Denies tongue swelling Physical Exam Vital Signs: Last Vital Signs Pulse 96 01/11/25 12:03 BP 112/78 01/11/25 12:03 Pulse Ox 96 01/11/25 12:03 Oxygen Delivery Method Nasal Cannula 01/11/25 12:03 Oxygen Flow Rate 2 01/11/25 12:03 BMI result Body Mass Index 28.7 Const General: cooperative, no acute distress, well developed and well groomed Nutritional Appearance: well nourished and obese centrally obese Orientation/consciousness: oriented to person, oriented to place and oriented to time Limitations: No language barrier and other limitations (portable oxygen) HEENT Head: Yes normocephalic and Yes atraumatic Eyes General: appearance normal, both eyes and all related structures Pupils: Equal, round and reactive pupils present Neck Neck: Yes normal visual inspection and Yes no lymphadenopathy Thyroid: Thyroid normal Resp Effort & Inspection: normal respiratory effort and able to speak in complete sentences Auscultation: clear to auscultation bilaterally Cardio Rate: regular rate Rhythm: regular rhythm Heart sounds: Normal, physiologic split S2 sound present Peripheral pulses: radial pulses present and posterior tibial pulses present GI Inspection: No distended and No Abdominal panniculus present Palpation (GI): Soft to palpation, nontender, no guarding, not rigid and No hepatosplenomegaly present Percussion: Yes normal to percussion Auscultation: normal bowel sounds Rectal Exam - Male: Yes deferred Skin General skin exam: no rashes or lesions noted, turgor normal, skin not dry, no jaundice, No spider nevi and no striae Rashes: no rashes Nails: normal Neuro General: oriented to person, oriented to place and oriented to time Cranial nerves: Yes Equal, round and reactive pupils present and Yes Normal hearing present Speech: No Abnormal speech present Extrem General: Yes normal to inspection, No clubbing, No cyanosis and No edema Psych Appearance: grossly normal and well kempt Mental Status: other Speech and movement: Normal speech and movement present Affect: normal affect Attitude: cooperative Thought process: not confabulating and Impoverished thought process present Thought content: Normal thought content present Insight: Limited insight present (Psych) Judgement: Limited judgement present (Psych) Assessment & Plan Assessment & Plan (1) Adenocarcinoma of colon: Code(s): C18.9 - Malignant neoplasm of colon, unspecified Category: Medical (2) Erosive esophagitis: Code(s): K22.10 - Ulcer of esophagus without bleeding Category: Medical Plan He is still having diarrhea, he DID stop the reglan, but is continuing Linzess 145mg. I want him to stop the Linzess completely since he is fearful of eating r/t diarrhea. Because of a large friable polyp that was not retrieved, he was sent to Dr. Sandhu for trans rectal resection. This showed adenocarinoma, and the pt is not a candidfate for partial coloectyomy r/t respiratory status. Will be seeing Onc for chemo soon He continues on omeprazole and famotidine for his heartburn. He also has Colace available at home. ROV 4 weeks. Coding Level of Care Code Est Pt Level 3 (17107) Diagnoses Adenocarcinoma of colon C18.9 Erosive esophagitis K22.10
[2025-01-11 12:03] VITALS: BP 112/78; PULSE 96; O2SAT 96; BMI 28.7
--- OUTSIDE RECORDS SUMMARY | 2025-01-11 12:56 | XMS_ITS | Encounter Summary ---
Author Organization [facility] [employer] [facility] Address [address] [facility] [address] [place] [address] Care Team Providers Care Pig Farmer Name Role Phone Rigoberto Us MD Primary Care Provide r Timothy Broussard RN Unavailable [phone] September Unavailable Reason for Visit * Reason Onset Date Comments Lab Orders 08/30/2022 Encounter Details Date Type Department Care Team (Late st Contact Info) Description 08/30/2022 Telephone [facility] [address] [place] [address] Rigoberto Us MD [address] [place], [place] [phone] Lab Orders Social History Tobacco Use Types [...] - 08/30/2022 11:19 AM EST Tc from [facility] [place] requesting an order for a lumbar spine for pt documented in this encounter Plan of Treatment Upcoming Encounters Date Type Department Care Team (Late st Contact Info) Description 01/11/2025 3:00 PM EDT Office Visit [facility] [address] [place] [address] Rigoberto Us MD [address] [place] [phone] documented as of this encounter Visit Diagnoses Not on filedocumented in this encounter Care Teams Pig Farmer Relationship Specialty Start Date End Date Rigoberto Us MD [address] [place] [address] PCP - General Internal Medicine 03/30/18 Timothy Broussard RN [address] [place] [address] Ditching Machine OperatorStrings Teacher 12/26/23 04/07/24 KathySeptember [address] 3rd [place] [address] Gastroenterology 09/09/24 documented as of this encounter
== END 2025-01-11 13:14 | disposition home or self-care (01) ==
LOC: HO.HGI 11:44
PROVIDERS: PCP Nurse Practitioner Family; Visit Provider Nurse Practitioner
DX: C18.9 Malignant neoplasm of colon, unspecified (principal); K22.10 Ulcer of esophagus without bleeding
CPT/HCPCS: 99213

== ENCOUNTER → 2025-01-11 11:43 | Outpatient (BNVA) | payer MEDICARE, MEDICAID, SELFPAY | PROVIDERS: PCP Nurse Practitioner Family; Visit Provider Nurse Practitioner | DX: K22.10 Ulcer of esophagus without bleeding (principal); C18.9 Malignant neoplasm of colon, unspecified; R19.7 Diarrhea, unspecified; Z79.899 Other long term (current) drug therapy; Z99.81 Dependence on supplemental oxygen | CPT/HCPCS: 99212 ==

== ENCOUNTER → 2025-01-13 10:00 | Outpatient (BNV) | payer MEDICARE, MEDICAID, SELFPAY | PROVIDERS: PCP Internal Medicine; Referring Provider Surgery; Visit Provider Internal Medicine | DX: C20 Malignant neoplasm of rectum (principal); J44.9 Chronic obstructive pulmonary disease, unspecified | CPT/HCPCS: 99205; G2211 ==

== ENCOUNTER 2025-01-19 07:45 | Outpatient (AMB) | payer MEDICARE, MEDICAID, SELFPAY ==
--- OUTSIDE RECORDS SUMMARY | 2025-01-19 07:48 | XMS_ITS | Encounter Summary ---
Author Organization [facility] Address [address] [facility] [address] [place] [address] Care Team Providers Care Bilingual Manager Name Role Phone Rigoberto Us MD Primary Care Provide r Timothy Broussard RN Unavailable [phone] September Unavailable Reason for Visit * Reason Onset Date Comments Lab Orders 08/30/2022 Encounter Details Date Type Department Care Team (Late st Contact Info) Description 08/30/2022 Telephone [facility] [address] [place] [address] Rigoberto Us MD [address] [place], [place] [phone] Lab Orders Social History Tobacco Use Types [...] - 08/30/2022 11:19 AM EST Tc from [facility] [place] requesting an order for a lumbar spine for pt documented in this encounter Plan of Treatment Not on file documented as of this encounter Visit Diagnoses Not on filedocumented in this encounter Care Teams Bilingual Manager Relationship Specialty Start Date End Date Rigoberto Us MD [address] [place] [address] PCP - General Internal Medicine 03/30/18 Timothy Broussard, GIANNA [address] [place] [address] Spike Machine OperatorTransplant Surgeon 12/26/23 04/07/[address] [place] [address] 3rd [place] [address] Gastroenterology 09/09/24 documented as of this encounter
--- NOTE | 2025-01-19 07:52 | MHC.OFFVIS ---
Vital Signs 01/19/25 07:53 Height 5 ft 11 in Weight 209 lb 10.554 oz BMI 29.2 BP 102/82 Blood Pressure Location Lt brachial Position Sitting Pulse 70 Pulse Source Pulse Oximeter Pulse Oximetry (%) 98 Oxygen Delivery Method Nasal Cannula Intake Visit Reasons: Osteoporosis/prolia Intake Note: Patient present today for Osteoporosis office visit. Inspector Sheet Metal Parts Required: Yes Inspector Sheet Metal Parts Language: Buffet Manager Services: Inspector Sheet Metal Parts Present Inspector Sheet Metal Parts Name: Fannie [id number] Information Interpreted: non-clinical & clinical Accompanied by: Self / Same As Patient Allergies No Known Allergies (No Known Allergies*) Allergy (Verified 01/19/25 07:57) Medication List - Last Reconciled 01/19/25 by Xavier Grant MD acetaminophen 1,000 mg PO Q8H PRN albuterol sulfate 2.5 mg inhalation BID albuterol sulfate 90 mcg/actuation 2 inhalations inhalation Q6H PRN 30 days apixaban (Eliquis) 5 mg PO BID Held on 10/08/24. Instructions: Resume on 10/12/24. resume Eliquis on 10/12/24 ascorbic acid (vitamin C) 250 mg PO DAILY denosumab (Prolia) 60 mg subcut [id number] docusate sodium (Colace) 100 mg PO BID famotidine 40 mg PO BEDTIME ferrous gluconate 324 mg PO DAILY iutwrqxqwbd-driqxoylj-wxtxzqbj 100-62.5-25 mcg (Trelegy Ellipta) 1 inh inhalation DAILY 30 days furosemide 20 mg PO DAILY latanoprost 0.005% 1 drp ophthalmic (eye) BEDTIME linaclotide (Linzess) 145 mcg PO QAM omeprazole 20 mg PO BID Oxygen Home Use As directed quetiapine 100 mg PO BEDTIME sertraline 25 mg PO DAILY simvastatin 20 mg PO QPM sotalol 80 mg PO Q12H sucralfate 20 mL PO BID trazodone 25 - 50 mg PO BEDTIME verapamil ER 120 mg PO QAM HPI Comments Details: 69 YO M with is seen in consultation at the request of PCP for Osteoporosis. First diagnosed in Jun 2022 .Had compression fx Not Received treatment in the past . history of pathologic fracture T7, T9 and Z2rahjnow car but no ONJ. Has no servings of dietary calcium per day Takes Calcium supplement 600 mg BID in divided doses. Takes 1600 IU of Vitamin D daily. Denies ever using PPI, Takes anticoagulant Eliquis , antiepileptic or glucocorticoid medication. Does not weight bearing exercise Fracture history: as above Height loss: No No history of Kidney stones: Has family history of Osteoporosis in mother but no hip fracture. Not UTD on dental cleanings and sees dentist every 6 months. No planned upcoming dental work or extractions. DXA dated 09/26/22 :FINDINGS: AP SPINE L1-L4: BMD 0.862 g/cm2, Z-score -2.6, T-score -3.0, osteoporosis. LEFT FEMUR, NECK: BMD 0.737 g/cm2, Z-score -1.5, T-score -2.6, osteoporosis. LEFT FEMUR, TOTAL: BMD 0.804 g/cm2, Z-score -1.5, T-score -2.1, osteopenia. IDENTIFIED RISK FACTORS: Low calcium intake, history of fracture (adult). HISTORY OF FRACTURE: Thoracic spine status post vertebral augmentation T7 and T9. Clavicle. MEDICATIONS: Calcium, vitamin D. MM/XR DEXA axial skeleton IMPRESSION: 1. DIAGNOSIS: Osteoporosis based on the lowest T-score value of -3.0 in the lumbar spine applying World Health Organization crite On Tymlos for 8 mos . Had 2 additional fx before starting Tymlos Doing well On Tymlos. No fx since last visit. No unusual back pain -less pain . Took a course of Tymlos and then transition to Prolia in 07/05/2024. Last bone density showed stability on Prolia The patient is a 69-year-old male presenting for osteoporosis management and preventative care. The patient has been receiving Prolia injections for osteoporosis management, following an 18-month course of Tymlos injections administered at home. He is currently tolerating Prolia well, with no reported adverse effects or fractures since the last visit. The treatment plan includes continuing Prolia injections every six months for a total of three years, with a follow-up bone density test scheduled in two years to evaluate the treatment's effectiveness. At that time, a decision will be made regarding transitioning to a different osteoporosis management agent. The patient is advised to engage in light weightlifting exercises as part of his osteoporosis management plan, if able. [facility] Medical History (Updated 01/13/25 @ 10:13 by Yulisa Haynes MD) Rectal adenocarcinoma Diarrhea GERD (gastroesophageal reflux disease) Compression fracture of body of thoracic vertebra Oxygen dependent Asthma On anticoagulant therapy CHF (congestive heart failure) History of home oxygen therapy Pulmonary nodule SOB (shortness of breath) Dyslipidemia Alcohol abuse PVD (peripheral vascular disease) Rectal polyp Calyceal diverticulum Renal cyst Acute exacerbation of emphysema Chronic hypoxemic respiratory failure Nicotine dependence, cigarettes, uncomplicated Compression fracture of T7 vertebra Cervical spondylosis Bilateral tinnitus Ascending aorta dilatation Opacity of lung on imaging study Generalized anxiety disorder Edentulous Bipolar 1 disorder GI bleed Emphysema lung BPH (benign prostatic hyperplasia) Compression fracture of lumbar vertebra Osteoporosis Atrial fibrillation with rapid ventricular response Compression fracture of body of thoracic vertebra History of alcohol abuse Compression fracture of T9 vertebra Nonischemic cardiomyopathy Right clavicle fracture Tubular adenoma of colon COPD (chronic obstructive pulmonary disease) Hyperlipidemia Hematemesis with nausea Dysphagia Systolic dysfunction Depression Hypertension Peptic ulcer disease Surgical History History of rectal polypectomy (12/08/24) Hx of cystoscopy Hx of kyphoplasty History of surgery on left wrist (~03/21/10) Hx of endoscopy Hx of colonoscopy (~02/13/06) Hx of cataract surgery (~07/02/10) History of appendectomy History of gastric surgery Family History (Updated 01/13/25 @ 10:04 by Barrett Malik) Mother Renal failure Father History of depression Brother Colon cancer Acute basophilic leukemia Social History Household Members: Significant Other and None Housing: House Are you a primary care associate to a significant other at home: No Do you presently have visiting nurse or other home services: Yes (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) Alcohol intake: never Patient Tobacco Use Status: Former Tobacco user Tobacco use type: Cigarette Cigarette Packs Per Day: 0.5 Years Smoked: 55 e-Cigarette/Vaping Use: Former Use Second Hand Smoke Exposure: No Advance Directives Date on File: 09/02/22 service: No Current occupational status: unemployed and disabled 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 Secondary workup was negative. Complete a course of Tymlos and received 1 dose of Prolia about receive 2nd dose of Prolia today. DEXA bone density remains stable Plan is given a dose of Prolia today. We will continue Prolia for another 2 years and recheck DEXA then with possibility of transitioning onto bisphosphonate at that point 1. Osteoporosis The patient is currently on Prolia injections, which he tolerates well, with no adverse effects or fractures reported since the last visit. The plan is to continue Prolia every six months for a total of three years, with a bone density test scheduled in two years to assess treatment efficacy. At that point, consideration will be given to transitioning to a different osteoporosis management agent. I discussed with the patient the continuation of Prolia injections for osteoporosis management, emphasizing the plan to reassess with a bone density test in two years. We also talked about the potential transition to a different agent based on future results. - Continue Prolia injections every six months as scheduled. - Engage in light weightlifting exercises if able. - Follow up for a bone density test in two years. The patient was counseled to achieve a target A1C of 7% (154 avg). Fasting blood sugars should be 90-130 in the morning and less than 180 two hours after meals. Reviewed the relationship between poor diabetic control and the development of complications. Check your feet daily looking for any signs of infection, drainage, redness, ulceration and seek medical attention if this occurs. Break in shoes gradually and do not wear open-toed shoes or walk stocking footed or barefooted. Patient was informed and verbally consented to the use of an ambient scribe for clinic note documentation during this visit. Coding Level of Care Code Est Pt Level 3 (52220) Diagnoses Osteoporosis M81.0
[2025-01-19 07:53] VITALS: BP 102/82; PULSE 70; O2SAT 98; BMI 29.2
== END 2025-01-19 08:24 | disposition home or self-care (01) ==
LOC: HO.ENCR 07:46
PROVIDERS: PCP Internal Medicine; Visit Provider Internal Medicine Endocrinology, Diabetes & Metabolism
DX: M81.0 Age-related osteoporosis without current pathological fracture (principal)
CPT/HCPCS: 99213

== ENCOUNTER → 2025-01-19 14:48 | Outpatient (BNV) | payer MEDICARE, MEDICAID, SELFPAY | PROVIDERS: PCP Internal Medicine; Visit Provider Radiology Diagnostic Radiology | DX: C20 Malignant neoplasm of rectum (principal) | CPT/HCPCS: 72197 ==

== ENCOUNTER 2025-01-19 14:49 | Outpatient (REF) | payer MEDICARE, MEDICAID, SELFPAY ==
--- NOTE | ~2025-01-19 | MR_ITS ---
EXAMINATION: MR PELVIS WITHOUT AND WITH CONTRAST CLINICAL INFORMATION: Rectal carcinoma. On colonoscopy 10/08/2024 Society rectal polyp #1 10-12 mm. Polyp # 2 measured 12 15 mm just proximal to anal verge. COMPARISON: CT abdomen and pelvis 11/25/2024. TECHNIQUE: Routine MRI sequences with and without contrast were obtained. Approximately 10 mL of gadolinium was injected intravenously without adverse reaction. FINDINGS: There is mural thickening involving the posterior half [place] of upper rectal wall with wall thickening measuring 5 mm on axial slice 50/10. This could be the site of rectal polyp #1 resection on recent colonoscopy 10/08/2024. It is best visualized on axial T1 wide sequence image 54/10 and 54/11 There is no abnormal T2 signal or enhancement seen to suspect any underlying lesion or tumor infiltration. The perirectal fascia is intact. 4 mm punctate lymph nodes are seen along the pelvic wall without enhancement. Previously seen polyp # 2 at anal verge or at the anorectal junction shows no mural thickening or abnormal enhancement. The perirectal fascia is normal. No abnormal perirectal lymph nodes or enhancement. There is scattered stool seen in rectum and sigmoid colon No abnormal inguinal, internal or external iliac abnormal lymph nodes seen. The urinary bladder is unremarkable. The prostate gland is normal size with normal signal seen in the peripheral zone on axial T2 fast spin sequence Visualized bone marrow signal of the pelvic bones, sacrum and lower lumbar vertebra appear normal. MR/MR pelvis wo/w con IMPRESSION: No abnormal mural thickening, mucosal enhancement or mesorectal /facial abnormal signal enhancement seen along the anal verge. Slightly proximally in upper rectum approximately 5.5 cm from the anorectal junction there is posterior submucosal/wall thickening without enhancement or edema on T2 sequence. On colonoscopy visualized polyp in this area labeled #1 was benign. Likely changes on MRI are postsurgical or scarring. Punctate 4 mm lymph nodes in the deep perirectal/lateral pelvic wall likely nonspecific or benign. No enhancement seen. Electronically signed by: Wil Delgado MD 01/20/2025 03:05 PM EDT
== END 2025-01-19 14:50 | disposition home or self-care (01) ==
LOC: HO.MRI 14:49
PROVIDERS: PCP Internal Medicine; Visit Provider Internal Medicine
DX: C20 Malignant neoplasm of rectum (principal); M81.0 Age-related osteoporosis without current pathological fracture; Z79.83 Long term (current) use of bisphosphonates; Z79.899 Other long term (current) drug therapy
CPT/HCPCS: 72197; 96372; 99212; A9585; J0897

== ENCOUNTER 2025-02-02 09:23 | Outpatient (AMB) | payer MEDICARE, MEDICAID, SELFPAY ==
--- NOTE | 2025-02-02 09:30 | MHC.OFFVIS ---
Vital Signs 02/02/25 09:43 Height 5 ft 11 in Weight 203 lb BMI 28.3 BP 94/64 Blood Pressure Location Lt brachial Position Sitting Pulse 66 Intake Visit Reasons: 1 mth follow up trans anal exc. of rectal polyp Intake Note: Patient here for 1m s/p transanal excision of a distal rectal polyp. Patient c/o: no concerns. PAUL: 12-22-2024 Dr. Haynes follow up 02-16-2025 Radiation oncology at [facility] 02-03-25. Reading Recovery Teacher Required: Yes Reading Recovery Teacher Services: Reading Recovery Teacher Offered & Declined (sister Kim will serve as pig handler) Information Interpreted: non-clinical & clinical (patient declined. Sister will serve as pig handler) Accompanied by: Kim Allergies No Known Allergies (No Known Allergies*) Allergy (Verified 02/02/25 09:38) HPI HPI 1 mth follow up trans anal exc. of rectal polyp: Details: He underwent transanal excision of a distal rectal polyp under anesthesia last 12/09/2024. Unfortunately, the path report shows a rectal adenocarcinoma. The margins were negative although this seems close in the deep margins. He says he is doing well currently. He denies any significant pain or bleeding. He had been referred to Medical Oncology. He is to be started on on Xeloda. His baseline level of function and has been referred to Radiation Oncology. He has multiple medical problems including chronic respiratory failure, myopathy, COPD, long smoking history and has poor baseline level of function. He has an O2 by nasal cannula. He seems to have had no significant cnew complaints. [facility] Medical History Rectal adenocarcinoma Diarrhea GERD (gastroesophageal reflux disease) Compression fracture of body of thoracic vertebra Oxygen dependent Asthma On anticoagulant therapy CHF (congestive heart failure) History of home oxygen therapy Pulmonary nodule SOB (shortness of breath) Dyslipidemia Alcohol abuse PVD (peripheral vascular disease) Rectal polyp Calyceal diverticulum Renal cyst Acute exacerbation of emphysema Chronic hypoxemic respiratory failure Nicotine dependence, cigarettes, uncomplicated Compression fracture of T7 vertebra Cervical spondylosis Bilateral tinnitus Ascending aorta dilatation Opacity of lung on imaging study Generalized anxiety disorder Edentulous Bipolar 1 disorder GI bleed Emphysema lung BPH (benign prostatic hyperplasia) Compression fracture of lumbar vertebra Osteoporosis Atrial fibrillation with rapid ventricular response Compression fracture of body of thoracic vertebra History of alcohol abuse Compression fracture of T9 vertebra Nonischemic cardiomyopathy Right clavicle fracture Tubular adenoma of colon COPD (chronic obstructive pulmonary disease) Hyperlipidemia Hematemesis with nausea Dysphagia Systolic dysfunction Depression Hypertension Peptic ulcer disease Surgical History History of rectal polypectomy (12/08/24) Hx of cystoscopy Hx of kyphoplasty History of surgery on left wrist (~03/21/10) Hx of endoscopy Hx of colonoscopy (~02/13/06) Hx of cataract surgery (~07/02/10) History of appendectomy History of gastric surgery Family History Mother Renal failure Father History of depression Brother Colon cancer Acute basophilic leukemia Social History Household Members: Significant Other and None Housing: House Are you a primary care management coordinator to a significant other at home: No Do you presently have visiting nurse or other home services: Yes (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 OPERATOR) Alcohol intake: never Patient Tobacco Use Status: Former Tobacco user Tobacco use type: Cigarette Cigarette Packs Per Day: 0.5 Years Smoked: 55 e-Cigarette/Vaping Use: Former Use Second Hand Smoke Exposure: No Advance Directives Date on File: 09/02/22 service: No Current occupational status: unemployed and disabled 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 Review of Systems Const Denies chills and Denies fever(s) Card Reports dyspnea and Reports dyspnea on exertion Resp Reports dyspnea and Reports dyspnea on exertion GI Denies hematochezia Physical Exam Const Other: On O2 by nasal cannula, frail looking General: no acute distress Resp Other: On O2 by nasal cannula Cardio Rate: regular rate GI Palpation (GI): Soft to palpation, not firm and nontender Assessment & Plan Assessment & Plan (1) Rectal adenocarcinoma: Code(s): C20 - Malignant neoplasm of rectum Category: Medical Plan: He has a newly diagnosed rectal adenocarcinoma from a distal rectal polyp removed transanally. The margins are negative. This appeared to be a T1 lesion. He has not a candidate for further surgical treatment at this time. He is to be started on Latuda. He has a consultation with the radiation oncologist tomorrow, although I am uncertain of the benefit of radiation treatment at this at this time. I will see him again in the office in 6 months. He is to continue to follow up with Dr. Haynes. Coding Level of Care Code Est Pt Level 3 (28309) Diagnoses Rectal adenocarcinoma C20
[2025-02-02 09:43] VITALS: BP 94/64; PULSE 66; BMI 28.3
--- OUTSIDE RECORDS SUMMARY | 2025-02-02 09:49 | XMS_ITS | Encounter Summary ---
Author Organization [employer] Address [address] [place] [address] Care Team Providers Care Pipelines Manager Name Role Phone Rigoberto Us MD Primary Care Provide r Timothy Broussard RN Unavailable [phone] September Unavailable Reason for Visit * Reason Onset Date Comments Lab Orders 08/30/2022 Encounter Details Date Type Department Care Team (Late st Contact Info) Description 08/30/2022 Telephone [facility] MEDICINE [address] [place] [address] Rigoberto Us MD [address] [place], [place] [phone] Lab Orders Social History Tobacco Use Types [...] 11:19 AM EST [place] [facility] an order for a lumbar spine for pt documented in this encounter Plan of Treatment Not on file documented as of this encounter Visit Diagnoses Not on filedocumented in this encounter Care Teams Pipelines Manager Relationship Specialty Start Date End Date Rigoberto Us MD [address] [place] [address] PCP - General Internal Medicine 03/30/18 Timothy Broussard, GIANNA [address] [place] [id number] Upper CutterDigital Hardware Design Engineer 12/26/23 04/07/[address] [place] [address] 3rd [place] [address] Gastroenterology 09/09/24 documented as of this encounter
--- OUTSIDE RECORDS SUMMARY | 2025-02-02 09:49 | XMS_ITS | Clinical Summary ---
Author Organization [facility] Address [address] [place] [id number] Phone Care Team Providers Care Administrative Office Specialist Name Role Phone Rigoberto Madrigal MD Primary Care Provide r Encounters Date Type Department Care Team Description 01/27/2025 Ancillary Orders [facility] [address] [place] [address] Unknown, Tammy, 01/26/2025 Ancillary Orders [facility] [address] [place] [address] Unknown, Unknown, MD 01/20/2025 - 01/20/2025 11:59 PM EDT Hospital Encounter [facility] [address] [place] [address] Unknown, Unknown, MD Discharge Disposition: Home or Self Care 01/19/2025 - 01/19/2025 11:59 PM EDT Hospital Encounter [facility] [address] [place] [address] Unknown, Unknown, MD Discharge Disposition: Home or Self Care from Last 3 Months Social History Tobacco Use Types Packs/Day Years Used Date Smoking Tobacco: Never Assessed Education Answer Date Recorded Are you interested in more education? Not on sanju e 01/26/2025 Are you concerned about learning? Not on file 01/26/2025 No 01/26/2025 No 01/26/2025 Digital Access Answer Date Recorded No 01/26/2025 No 01/26/2025 Reliable internet access at home? Not on file 01/26/2025 Device with a working camera? Not on file Sex and Gender Information Value Date Recorded Sex Assigned at Not on file Legal Sex Male 2:57 PM EDT Gender Identity Not on file Sexual Orientation Not on file Plan of Treatment Upcoming Encounters Date Type Department Care Team (Late st Contact Info) Description 02/16/2025 11:00 AM EDT Office Visit [facility] Rad Onc [address] [place] [address] Arnel Carson MD [address] [place] [address] [email or web address] Health Maintenance Due Date Last Done Comments DEPRESSION SCREENING 1966 SMOKING Hx and SMOKELESS TOB ACCO SCREENING 1967 HEPATITIS C SCREENING 1972 COLOGUARD 1999 COLONOSCOPY 1999 COLORECTAL CANCER SCREENING 1999 FIT TEST 1999 FOBT 1999 SIGMOIDOSCOPY 1999 VIRTUAL COLONOSCOPY 1999 ZOSTER VACCINES (1 of 2) 2004 PNEUMOCOCCAL VACCINES (50+ y ears) (2 of 2 - PCV) 03/21/2021 03/21/2020 Adult Td,Tdap Booster 02/25/2023 02/25/2013 COVID-19 VACCINE (1 - 2023-2 5 season) 2024 LIPID PANEL 03/23/2026 03/23/2021 RSV VACCINE (1 - 1-dose 75+ series) 2029 HEPATITIS A VACCINES Aged Out No long er eligible based on patient's age to complete this topic HIB VACCINES Aged Out No longer eligi ble based on patient's age to complete this topic MENINGOCOCCAL VACCINES (ACWY) Aged Out No longer eligible based on patient's age to complete this topic MENINGOCOCCAL VACCINES (B) Aged Out N o longer eligible based on patient's age to complete this topic Medical Devices Not on file Procedures Procedure Name Priority Date/Time Associated Diagnosis Comments NM PET WHOLE BODY OUTSIDE (NO INTERPRETATION) Routine 01/20/2025 12:00 AM EDT MRI PELVIS (BONE) OUTSIDE (NO INTERPRETATION) Routine 01/19/2025 12:00 AM EDT from Last 3 Months Results * NM PET Whole Body Outside (No Interpretation) (01/20/2025 12:00 AM EDT) Narrative Record, 01/27/2025 10:33 AM EDT This study is for PACS storage only and not for interpretation. Procedure Note Record, 01/27/2025 This study is for PACS storage only and not for interpretation. us Unknown Unknown MD IMG OUTSIDE IMAGING W/OUT INT ERPRETATION Final Result * MRI Pelvis (Bone) Outside (No Interpretation) (01/19/2025 12:00 AM EDT) Narrative SYSTEMGENERATED, DOCUMENTATION - 01/26/2025 4:07 PM EDT This study is for PACS storage only and not for interpretation. us Unknown Unknown MD IMG OUTSIDE IMAGING W/OUT INT ERPRETATION Final Result from Last 3 Months Insurance [place] [id number] [facility] MEDICARE PART A & B [employer] MEDICARE PART A & B [place] A & [place] [facility] MEDICARE PART A & [place] [id number] [facility] Care Teams Administrative Office Specialist Relationship Specialty Start Date End Date Rigoberto Madrigal MD [address] [place] [address] [address] [place] [phone] PCP - General Internal Medicine 01/26/25 Additional Source Comments The information contained in this document represents components of the legal health record. It is not the complete legal health record.[facility]
== END 2025-02-02 09:50 | disposition home or self-care (01) ==
LOC: HO.HGS 09:24
PROVIDERS: PCP Nurse Practitioner Family; Visit Provider Surgery
DX: C20 Malignant neoplasm of rectum (principal)
CPT/HCPCS: 99024

== ENCOUNTER → 2025-02-02 09:23 | Outpatient (BNVA) | payer MEDICARE, MEDICAID, SELFPAY | PROVIDERS: PCP Nurse Practitioner Family; Visit Provider Surgery | DX: C20 Malignant neoplasm of rectum (principal); Z92.3 Personal history of irradiation | CPT/HCPCS: 99212 ==

== ENCOUNTER 2025-02-17 09:42 | Outpatient (AMB) | payer MEDICARE, MEDICAID, SELFPAY ==
--- OUTSIDE RECORDS SUMMARY | 2025-02-16 11:00 | XMS_ITS | Encounter Summary ---
Author Organization [facility] Address [address] [place] [address] Phone Care Team Providers Care Business Systems Lead Name Role Phone Rigoberto Madrigal MD Primary Care Provide r Yulisa Haynes MD Unavailable [phone] Don Gonzales MD Unavailable Reason for Visit * Reason Comments Consult Rectal Cancer Encounter Details Date Type Department Care Team (Late st Contact Info) Description 02/16/2025 11:00 AM EDT Office Visit [facility] Rad Onc [address] [place] [id number] Arnel Carson MD [address] [place] [address] [email or web address] Lydia Crawford [address] [place] [address] [email or web address] Malignant neoplasm of rectum (Primary Dx) Social History Tobacco Use Types Packs/Day Years Used Date Smoking Tobacco: Former Cigarettes 0.5 55 Smokeless Tobacco: Never Alcohol Use Standard Drinks/Week Comments Not Currently 0 (1 standard drink = 0.6 oz pur e alcohol) Pst hx of ETOH-quit in 2022 Education Answer Date Recorded Are you interested [...] on file Sexual Orientation Not on file documented as of this encounter Last Filed Vital Signs Vital Sign Reading Time Taken Comments Blood Pressure 112/82 02/16/2025 12:42 PM EDT Pulse 63 02/16/2025 12:42 PM EDT Temperature 36.1 C (97 F) 02/16/2025 12:42 PM EDT Respiratory Rate 20 02/16/2025 12:4 2 PM EDT Oxygen Saturation 96% 02/16/2025 12: 42 PM EDT Inhaled Oxygen Concentration - - Weight 95.2 kg (209 lb 12.8 oz) 025 12:42 PM EDT Height - - Body Mass Index - - documented in this encounter Progress Notes * Chloe Donnelly RN - 02/16/2025 11:00 AM EDT Avery is here for a radiation consult for a new diagnosis of invasive rectal adenocarcinoma. Pt accompanied by his sister Kim and a agricultural chemicals inspector. Pt underwent a colonoscopy in September of this year-revealed a 12-15 mm polyp proximal to the anal verge. Polyp only partially removed d/t friable tissue- transanal resection recommended. Transanal resection performed by Dr. Don Gonzales on 12/09. Pathology revealed and invasive adenocarcinoma, grade 2, + for vascular and lymphatic invasion; tumor size 2.4 cm. Pt deemed not appropriate for surgeryd/t preexisting comorbidities. Onc consult with Dr. Haynes ([facility]plan is for concurrent tx with Xeloda/XRT. Pt reports chronic back pain d/t past compression fx at T7/T9-taking Tylenol with some relief. Denies rectal bleeding or pain with BM. The logistics of radiation therapy discussed with patient as well as next steps in the planning process. Pt meeting with Dr. Carson. * Arnel Carson MD - 02/16/2025 11:00 AM EDT Radiation Oncology Consultation Note Name : Avery Soni Date of : 1955 Date of Visit: 02/16/2025 Director Vaccine: Arnel Carson MD Referring Physician : Yulisa Haynes MD Primary Care Physician: Rigoberto Madrigal MD History of Present Illness : This is a 69 y.o.male with a new diagnosis of adenocarcinoma of rectum, T2N0, and is seen now in consultation at the request of Yulisa Haynes MD for consideration of radiotherapy. The patient's oncological history thus far is detailed here. Oncology History Malignant neoplasm of rectum 12/09/2024 Procedure Transanal/rectal local excision: Invasive AdenoCA, residual, grade 2 Positive for vascular and lymphatic invasion Deep margin is very close, within microns. Tumor undermines benign squamous and colonic mucosa Per operative note, the tumor straddles the distal rectum and proximal anal canal and is about 2.4 cm in size. 02/16/2025 Initial Diagnosis Malignant neoplasm of rectum 02/16/2025 - Cancer Staged Staging form: Colon And Rectum, AJCC 8th Edition - Clinical: Stage I (cT2, cN0, cM0) - Signed by Arnel Carson MD on 02/16/2025 No prior history of radiation therapy. No history of lupus, scleroderma, rheumatoid arthritis, inflammatory bowel disease, or pacemaker placement. Review of Symptoms : No pain on defecation. No blood per rectum. He does have chronic back pain related to history of compression fractures. ROS A 14-point review of systems, which I personally reviewed with the patient, is otherwise negative. Past Medical History: Past Medical History: Diagnosis Date Anxiety Arthritis Asthma Backache Benign prostatic hyperplasia Bipolar disorder Cancer Chronic idiopathic constipation Chronic obstructive pulmonary disease Congestive heart failure Depressive disorder Erectile dysfunction Erosive esophagitis Gastroesophageal reflux disease Glaucoma Hyperlipidemia Nonischemic cardiomyopathy Osteoporosis Peripheral vascular disease Past Surgical History: Past Surgical History: Procedure Laterality Date APPENDECTOMY Cataract surgery Bilateral 2005 cystoscopy ENDOSCOPY EYE SURGERY KYPHOSIS SURGERY 2022 compression fx T7/T9 RECTAL POLYPECTOMY WRIST SURGERY Left Medications : Current Outpatient Medications Ordered in Epic Medication Sig acetaminophen (TYLENOL) 500 MG tablet Take 1,000 mg by mouth every 8 (eight) hours as needed for pain (specific location in comments). albuterol 2.5 mg/0.5 mL nebulizer solution Take 2.5 mg by nebulization 2 (two) times a day. apixaban (ELIQUIS) 5 mg tablet Take 5 mg by mouth 2 (two) times a day. ascorbic acid, vitamin C, (VITAMIN C) 250 MG tablet Take 250 mg by mouth daily. denosumab (PROLIA) 60 mg/mL Syrg subcutaneous syringe Inject 60 mg under the skin every 6 (six) months. famotidine (PEPCID) 40 MG tablet Take 40 mg by mouth daily. At Bedtime ferrous gluconate 256 mg (28 mg elemental) Tab Take 324 mg by mouth daily with breakfast. furosemide (LASIX) 20 MG tablet Take 20 mg by mouth daily. latanoprost (XALATAN) 0.005 % ophthalmic solution Place 1 drop into each eye nightly at bedtime. QUEtiapine (SEROQUEL) 100 MG tablet Take 100 mg by mouth nightly at bedtime. sertraline (ZOLOFT) 25 MG tablet Take 25 mg by mouth daily. Indications: anxiousness associated with depression simvastatin (ZOCOR) 20 MG tablet Take 20 mg by mouth nightly at bedtime. Indications: excessive fatin the blood sotaloL (BETAPACE) 80 MG tablet Take 80 mg by mouth 2 (two) times a day. sucralfate (CARAFATE) 1 gram tablet Take 1 g by mouth 4 (four) times a day. Indications: Erosive Esophagitis traZODone (DESYREL) 50 MG tablet Take 50 mg by mouth nightly at bedtime. verapamiL (CALAN-SR) 120 MG CR tablet Take 120 mg by mouth every morning. Current Medications Medication Sig acetaminophen (TYLENOL) 500 MG tablet 1,000 mg, Every 8 hours PRN albuterol 2.5 mg/0.5 mL nebulizer solution 2.5 mg, 2 times daily apixaban (ELIQUIS) 5 mg tablet 5 mg, 2 times daily ascorbic acid, vitamin C, (VITAMIN C) 250 MG tablet 250 mg, Daily denosumab (PROLIA) 60 mg/mL Syrg subcutaneous syringe 60 mg, Every 6 months famotidine (PEPCID) 40 MG tablet 40 mg, Daily ferrous gluconate 256 mg (28 mg elemental) Tab 324 mg, Daily with breakfast furosemide (LASIX) 20 MG tablet 20 mg, Daily latanoprost (XALATAN) 0.005 % ophthalmic solution 1 drop, Nightly QUEtiapine (SEROQUEL) 100 MG tablet 100 mg, Nightly sertraline (ZOLOFT) 25 MG tablet 25 mg, Daily simvastatin (ZOCOR) 20 MG tablet 20 mg, Nightly sotaloL (BETAPACE) 80 MG tablet 80 mg, 2 times daily sucralfate (CARAFATE) 1 gram tablet 1 g, 4 times daily traZODone (DESYREL) 50 MG tablet 50 mg, Nightly verapamiL (CALAN-SR) 120 MG CR tablet 120 mg, Every morning Allergies : No Known Allergies Social History : Social History Socioeconomic History Marital status: Single Spouse name: Not on file Number of children: Not on file Years of education: Not on file Highest education level: Not on file Occupational History Not on file Tobacco Use Smoking status: Former Current packs/day: 0.50 Average packs/day: 0.5 packs/day for 55.0 years (27.5 ttl pk-yrs) Types: Cigarettes Smokeless tobacco: Never Vaping Use Vaping status: never used Substance and Sexual Activity Alcohol use: Not Currently Comment: Pst hx of ETOH-quit in 2022 Drug use: Never Sexual activity: Not on file Other Topics Concern Not on file Social History Narrative Avery currently resides alone in [place], his sister Kim (also his CHILD WELFARE WORKER) visits him daily for approximately 3 hours to help with his ADL's and medications. Avery's other siblings also help out with his care. Social Drivers of Health Residential Stability: Low Risk (01/04/2025) Received from [employer] Housing Stability What is your housing situation today?: I have housing Think about the place you live. Do you have problems with any of the following? : None of the above [address] [facility] [address] [facility] [address] Family History: Family History Relation Problem Comments Mother () Father () Brother (Alive) Cancer Colon Brother (Alive) Cancer Leukemia Paternal Aunt (Alive) Cancer Colon Paternal Grandfather () Cancer Colon Physical Exam: Wt Readings from Last 1 Encounters: 02/16/25 95.2 kg (209 lb 12.8 oz) Vitals: 02/16/25 1242 BP: 112/82 BP Location: Left arm Patient Position: Sitting Cuff Size: Medium Pulse: 63 Resp: 20 Temp: 36.1 ??C (97 ??F) TempSrc: Temporal SpO2: 96% Weight: 95.2 kg (209 lb 12.8 oz) General: Alert and oriented, well-developed, in no acute distress. Currently wearing oxygen per nasal cannula HEENT: No scleral icterus, jaundice or pallor. Neck is supple without palpable masses or thyromegaly. Lymphatics: No cervical nor supraclavicular lymphadenopathy. Lungs: No use of accessory muscles for breathing. Abdomen: Soft, nontender, nondistended. Extremities: Free of edema. Neurological: Cranial nerves grossly intact. Strength is 5 out of 5 in the extremities without gross sensory deficits. Cognition intact. Affect normal. Performance Status : ECOG performance status: 2- Ambulatory and capable of all selfcare but unable to carry out any work activities. Up and about more than 50% of waking hours Imaging Data: Images were personally reviewed, as described in the HPI, and I agree with the described findings. Impression and Plan: This is a 69 y.o. male with. Cancer Staging Malignant neoplasm of rectum Staging form: Colon And Rectum, AJCC 8th Edition - Clinical: Stage I (cT2, cN0, cM0) - Signed by Arnel Carson MD on 02/16/2025 . Upfront management with chemoradiotherapy is indicated. Xeloda has already been ordered and patienthas received it. I recommend a 5-1/2-week course of radiotherapy to the primary tumor site and the pelvic lymph nodes. VMAT technique will be utilized. I reviewed in detail the risks, benefits and logistics of radiation therapy, including possible short-term side effects and long-term risks. The goal of care is: Pursuit of Cure. All questions were answered. The patient agrees to the proposed treatment plan. Thank you for the referral. I greatly appreciate participating in the care of this patient. 60 min visit, more than 50% spent on counseling regarding disease management and coordination of care. Arnel Carson MD Radiation Oncology [place], [place] documented in this encounter Plan of Treatment Upcoming Encounters Date Type Department Care Team (Late st Contact Info) Description 03/30/2025 10:15 AM EDT Office Visit [facility] [address], [address] [place] [address] Fransisco Nguyen, [address] [place] [address] [email or web address] documented as of this encounter Visit Diagnoses Diagnosis Malignant neoplasm of rectum- Primary documented in this encounter Care Teams Business Systems Lead Relationship Specialty Start Date End Date Rigoberto Madrigal MD [address] [facility] [address] [place] [address] [email or web address] PCP - General Internal Medicine 01/26/25 Yulisa Haynes MD [address] [place] [phone] [email or web address] 02/16/25 Don Gonzales MD [address] [place] [address] [place] [address] General Surgery 02/16/25 documented as of this encounter Additional Source Comments The information contained in this document represents components of the legal health record. It is not the complete legal health record.[facility]
--- NOTE | 2025-02-17 09:48 | A.OFFVIS_ITS ---
Vital Signs 02/17/25 09:49 Height 5 ft 11 in Weight 204 lb BMI 28.4 BP 104/68 Blood Pressure Location Rt brachial Position Sitting Pulse 70 Pulse Source Pulse Oximeter Pulse Oximetry (%) 98 Oxygen Delivery Method Room Air Intake Visit Reasons: 30m. Mgmt of rectal cancer. Intake Note: Est pt for mgmt of rectal cancer + CIC + GERD. CC: Pt reports that his sx have improved significantly since his last visit. Pt has stopped taking linzess and is no longer having diarrhea. Relocation Counselor Required: Yes Relocation Counselor Services: Relocation Counselor Offered & Declined Accompanied by: Family/Other Allergies No Known Allergies (No Known Allergies*) Allergy (Verified 02/17/25 09:49) HPI HPI 30m. Mgmt of rectal cancer.: Details: Assessment & Plan (1) Adenocarcinoma of colon: Code(s): C18.9 - Malignant neoplasm of colon, unspecified Category: Medical (2) Erosive esophagitis: Code(s): K22.10 - Ulcer of esophagus without bleeding Category: Medical Plan He is still having diarrhea, he DID stop the reglan, but is continuing Linzess 145mg. I want him to stop the Linzess completely since he is fearful of eating r/t diarrhea. Because of a large friable polyp that was not retrieved, he was sent to Dr. Gonzales for trans rectal resection. This showed adenocarinoma, and the pt is not a candidfate for partial coloectyomy r/t respiratory status. Will be seeing Onc for chemo soon He continues on omeprazole and famotidine for his heartburn. He also has Colace available at home. ROV 4 weeks. TODAY'S VISIT Citizen Of [place] # family member translates per patient request His current GI regimen consists of omeprazole and famotidine. 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 This resolved when we discontinue the Linzess and the Reglan and he is now moving his bowels normally. He continues on omeprazole and famotidine as he has a history of erosive esophagitis but his insurance will not cover b.i.d. PPI. - rectal cancer is being managed with an interdisciplinary approach involving Oncology and upcoming beam radiation therapy scheduled to take place with accompanying chemotherapy expected to start in mid-February. - Prior treatments have included addressing gastrointestinal concerns, with prior incidents of constipation and diarrhea now stabilized through medication adjustment. - Chronic pain remains a serious concern, described as severe, continuous, and poorly controlled by current medical treatment. This is not related to his cancer as far as we know he has a long history of degenerative disc disease and thoracic back problems with prior kyphoplasties. [facility] Medical History Rectal adenocarcinoma Diarrhea GERD (gastroesophageal reflux disease) Compression fracture of body of thoracic vertebra Oxygen dependent Asthma On anticoagulant therapy CHF (congestive heart failure) History of home oxygen therapy Pulmonary nodule SOB (shortness of breath) Dyslipidemia Alcohol abuse PVD (peripheral vascular disease) Rectal polyp Calyceal diverticulum Renal cyst Acute exacerbation of emphysema Chronic hypoxemic respiratory failure Nicotine dependence, cigarettes, uncomplicated Compression fracture of T7 vertebra Cervical spondylosis Bilateral tinnitus Ascending aorta dilatation Opacity of lung on imaging study Generalized anxiety disorder Edentulous Bipolar 1 disorder GI bleed Emphysema lung BPH (benign prostatic hyperplasia) Compression fracture of lumbar vertebra Osteoporosis Atrial fibrillation with rapid ventricular response Compression fracture of body of thoracic vertebra History of alcohol abuse Compression fracture of T9 vertebra Nonischemic cardiomyopathy Right clavicle fracture Tubular adenoma of colon COPD (chronic obstructive pulmonary disease) Hyperlipidemia Hematemesis with nausea Dysphagia Systolic dysfunction Depression Hypertension Peptic ulcer disease Surgical History History of rectal polypectomy (12/08/24) Hx of cystoscopy Hx of kyphoplasty History of surgery on left wrist (~03/21/10) Hx of endoscopy Hx of colonoscopy (~02/13/06) Hx of cataract surgery (~07/02/10) History of appendectomy History of gastric surgery Family History Mother Renal failure Father History of depression Brother Colon cancer Acute basophilic leukemia Social History Household Members: Significant Other and None Housing: House Are you a primary plant health care technician to a significant other at home: No Do you presently have visiting nurse or other home services: Yes ([employer]) Alcohol intake: never Patient Tobacco Use Status: Former Tobacco user Tobacco use type: Cigarette Cigarette Packs Per Day: 0.5 Years Smoked: 55 e-Cigarette/Vaping Use: Former Use Second Hand Smoke Exposure: No Advance Directives Date on File: 09/02/22 service: No Current occupational status: unemployed and disabled 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 Review of Systems Const Denies fatigue, Denies fever(s), Denies night sweats, Denies poor appetite and Denies weight loss ENT Reports Normal hearing present, Denies dental pain, Denies dysphagia, Denies hearing loss, Denies mouth pain, Denies odynophagia, Denies throat swelling, Denies tongue swelling and Reports other (Dentition adequate) Card Reports no additional complaints Resp Reports no additional complaints GI Details: Denies abdominal pain, Denies melena, Denies bloating, Denies hematochezia, Denies constipation, Denies GI cramping, Denies dysphagia, Denies excessive flatus, Denies early satiety, Reports heartburn, Denies diarrhea, Denies nausea, Denies odynophagia, Denies vomiting and Denies hematemesis Musc Reports back pain and Reports myalgias Skin/Breast Denies pruritus, Denies lesions, Denies rash and Denies jaundice Neuro Reports Normal hearing present and Denies Abnormal speech present Endo Denies fatigue Aller/Immun Denies throat swelling and Denies tongue swelling Physical Exam Vital Signs: BMI result Body Mass Index 28.4 Const General: cooperative, no acute distress, well developed and well groomed Nutritional Appearance: well nourished and obese Orientation/consciousness: oriented to person, oriented to place and oriented to time Limitations: language barrier and other limitations (oxygen dependant) HEENT Head: Yes normocephalic and Yes atraumatic Eyes General: appearance normal, both eyes and all related structures Pupils: Equal, round and reactive pupils present Neck Neck: Yes normal visual inspection and Yes no lymphadenopathy Thyroid: Thyroid normal Resp Effort & Inspection: normal respiratory effort and able to speak in complete sentences Auscultation: clear to auscultation bilaterally Cardio Rate: regular rate Rhythm: regular rhythm Heart sounds: Normal, physiologic split S2 sound present Peripheral pulses: radial pulses present and posterior tibial pulses present GI Inspection: No distended, No Abdominal panniculus present and Yes obesity Palpation (GI): Soft to palpation, nontender, no guarding, not rigid and No hepatosplenomegaly present Percussion: Yes normal to percussion Auscultation: normal bowel sounds Rectal Exam - Male: Yes deferred Skin General skin exam: no rashes or lesions noted, turgor normal, skin not dry, no jaundice, No spider nevi and no striae Rashes: no rashes Nails: normal Neuro General: oriented to person, oriented to place and oriented to time Cranial nerves: Yes Equal, round and reactive pupils present and Yes Normal hearing present Speech: No Abnormal speech present Extrem General: Yes normal to inspection, No clubbing, No cyanosis and No edema Psych Appearance: grossly normal and well kempt Mental Status: mental status grossly normal Speech and movement: Normal speech and movement present Affect: normal affect Attitude: cooperative Thought process: Normal thought process present and not confabulating Thought content: Normal thought content present Insight: Limited insight present (Psych) Judgement: Limited judgement present (Psych) Assessment & Plan Assessment & Plan (1) Acute diarrhea: Code(s): R19.7 - Diarrhea, unspecified Category: Medical (2) Chronic idiopathic constipation: Code(s): K59.04 - Chronic idiopathic constipation Category: Medical (3) Rectal prolapse: Code(s): K62.3 - Rectal prolapse Category: Medical (4) Erosive esophagitis: Code(s): K22.10 - Ulcer of esophagus without bleeding Category: Medical Plan Citizen Of [place] # family member translates per patient request His current GI regimen consists of omeprazole and famotidine. 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 This resolved when we discontinue the Linzess and the Reglan and he is now moving his bowels normally. He continues on omeprazole and famotidine as he has a history of erosive esophagitis but his insurance will not cover b.i.d. PPI. - rectal cancer is being managed with an interdisciplinary approach involving Oncology and upcoming beam radiation therapy scheduled to take place with accompanying chemotherapy expected to start in mid-February. - Prior treatments have included addressing gastrointestinal concerns, with prior incidents of constipation and diarrhea now stabilized through medication adjustment. - Chronic pain remains a serious concern, described as severe, continuous, and poorly controlled by current medical treatment. This is not related to his cancer as far as we know he has a long history of degenerative disc disease and thoracic back problems with prior kyphoplasties. Return office visit in 3 months or sooner if the bowels change in response to his cancer treatments and he needs my input. Coding Level of Care Code Est Pt Level 3 (70524) Diagnoses Acute diarrhea R19.7 Chronic idiopathic constipation K59.04 Rectal prolapse K62.3 Erosive esophagitis K22.10
[2025-02-17 09:49] VITALS: BP 104/68; PULSE 70; O2SAT 98; BMI 28.4
--- OUTSIDE RECORDS SUMMARY | 2025-02-17 10:51 | XMS_ITS | Encounter Summary ---
Author Organization [employer] Address [address] [facility] [address] [place] [address] Care Team Providers Care Marine Cargo Specialist Name Role Phone Rigoberto Us MD Primary Care Provide r September Reason for Visit * Reason Onset Date Comments Medication Question 05/25/2024 Encounter Details Date Type Department Care Team ([facility] st Contact Info) Description 05/25/2024 Telephone [facility]ICINE [address] [place], [place] [phone] Rigoberto Us MD [address] [place], [place] [phone] Medication Question Social History Tobacco Use Types [...] he's pain don't go away. Callback number [phone] ([email or web address]) documented in this encounter Plan of Treatment Not on file documented as of this encounter Visit Diagnoses Not on filedocumented in this encounter Additional Health Concerns Assessment Noted Time PHQ-9 Depression Total Score: 8 08/26/19 24 11:49 AM EST documented as of this encounter Care Teams Marine Cargo Specialist Relationship Specialty Start Date End Date Rigoberto Us MD [address] [place] [id number] PCP - General Internal Medicine 03/30/18September [address] [place] [address] 3rd [place] [address] Gastroenterology 09/09/24 documented as of this encounter
--- OUTSIDE RECORDS SUMMARY | 2025-02-17 10:51 | XMS_ITS | Encounter Summary ---
Author Organization [employer] Address [address] 7t [place] [address] Care Team Providers Care Range Conservationist Name Role Phone Rigoberto Us MD Primary Care Provide r Timothy Broussard RN Unavailable [phone] September Unavailable Encounter Details Date Type Department Care Team (Late st Contact Info) Description 10/17/2023 Orders Only [facility] MEDICINE [address] [place] [address] Provider, MD [place] Social History Tobacco Use [...] documented as of this encounter Care Teams Range Conservationist Relationship Specialty Start Date End Date Rigoberto Us MD [address] [place] [address] PCP - General Internal Medicine 03/30/18 Timothy Broussard RN [address] [place] [address] Supervisor Screen PrintingGrain Commodity Manager 12/26/23 04/07/[address] 3rd [place] [address] Gastroenterology 09/09/24 documented as of this encounter
--- OUTSIDE RECORDS SUMMARY | 2025-02-17 10:51 | XMS_ITS | Encounter Summary ---
Author Organization [employer] Address [address] 7t [place] [address] Care Team Providers Care Cheese Grader Name Role Phone Rigoberto Us MD Primary Care Provide r Timothy Broussard RN Unavailable [phone] September Unavailable Encounter Details Date Type [...] on filedocumented in this encounter Care Teams Cheese Grader Relationship Specialty Start Date End Date Rigoberto Us MD [address] [place] [address] PCP - General Internal Medicine 03/30/18 Timothy Broussard, RN [address] [place] [address] Ranch Hand LivestockLab Courier 12/26/23 04/07/24September [address] 3rd [place] [address] Gastroenterology 09/09/24 documented as of this encounter
--- OUTSIDE RECORDS SUMMARY | 2025-02-17 10:51 | XMS_ITS | Encounter Summary ---
Author Organization [employer] Address [address] [place] [address] Care Team Providers Care Sustainability Project Coordinator Name Role Phone Rigoberto Us MD Primary Care Provide r Timothy Broussard RN Unavailable [phone] September Unavailable Encounter Details Date Type Department Care Team (Late st Contact Info) Description 10/04/2022 Orders Only [facility] MEDICINE [address] [place] [address] Demi Garcia, RN [address] [place], [place] [phone] Social History Tobacco Use Types Packs/Day Years [...] on filedocumented in this encounter Care Teams Sustainability Project Coordinator Relationship Specialty Start Date End Date Rigoberto Us MD [address] [place] [address] PCP - General Internal Medicine 03/30/18 Timothy Broussard, GIANNA [address] [place] [address] Marine FirefighterSr. Manager 12/26/23 04/07/24 Nelda Chavez [address] [place] [address] 3rd [place] [address] Gastroenterology 09/09/24 documented as of this encounter
--- OUTSIDE RECORDS SUMMARY | 2025-02-17 10:51 | XMS_ITS | Encounter Summary ---
Author Organization [employer] Address [address] [place] [address] 7t [place] [address] Care Team Providers Care Management Manager Name Role Phone Rigoberto Us MD Primary Care Provide r Timothy Broussard RN Unavailable [phone] September Unavailable Encounter Details Date Type Department Care Team (Late st Contact Info) Description 05/29/2022 Abstract [facility] MEDICINE [address] [place] [address] Provider, MD [place] Social History Tobacco Use [...] on filedocumented in this encounter Care Teams Management Manager Relationship Specialty Start Date End Date Rigoberto Us MD [address] [place] [address] PCP - General Internal Medicine 03/30/18 Timothy Broussard, GIANNA [address] [place] [address] Java Software EngineerFulfillment Associate 12/26/23 04/07/24September [address] 3rd [place] [address] Gastroenterology 09/09/24 documented as of this encounter
--- OUTSIDE RECORDS SUMMARY | 2025-02-17 10:51 | XMS_ITS | Encounter Summary ---
Author Organization [employer] Address [address] [facility] 7t [place] [address] Care Team Providers Care Mercury Cracking Tester Name Role Phone Rigoberto Us MD Primary Care Provide r Timothy Broussard RN Unavailable September Unavailable Encounter Details Date Type Department Care Team (Late st Contact Info) Description 10/31/2022 Abstract [facility]INE [address] [place], [place] [phone] Rigoberto Us MD [address] [place], [place] [phone] Social History Tobacco Use Types Packs/Day Years [...] on filedocumented in this encounter Care Teams Mercury Cracking Tester Relationship Specialty Start Date End Date Rigoberto Us MD [address] [place], [place] [phone] PCP - General Internal Medicine 03/30/18 Timothy Broussard, GIANNA [address] [place] [address] Towel DistributorOffset Label Rewinder 12/26/23 04/07/24 Kathy September [address] [place] [address] 3rd [place] [address] Gastroenterology 09/09/24 documented as of this encounter
--- OUTSIDE RECORDS SUMMARY | 2025-02-17 10:51 | XMS_ITS | Encounter Summary ---
Author Organization [employer] Address [address] [facility] [address] [facility] 7t [place] [address] Care Team Providers Care Blood Bank Manager Name Role Phone Rigoberto Us MD Primary Care Provide r Timothy Broussard RN Unavailable [phone] September Unavailable Reason for Visit * Reason Onset Date Comments Call Back Request 01/22/2024 Encounter Details Date Type Department Care Team ([facility] st Contact Info) Description 01/22/2024 Telephone [facility] MEDICINE 230 [place], [place] [phone] Rigoberto Us MD 230 [place], [place] [phone] Call Back Request Social History Tobacco Use [...] a call back in order to 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 Please contact at [phone] documented in this encounter Plan of Treatment Not on file documented as of this encounter Visit Diagnoses Not on filedocumented in this encounter Additional Health Concerns Assessment Noted Time PHQ-9 Depression Total Score: 8 08/26/19 24 11:49 AM EST documented as of this encounter Care Teams Blood Bank Manager Relationship Specialty Start Date End Date Rigoberto Us MD [address] [place] [address] PCP - General Internal Medicine 03/30/18 Timothy Broussard RN [address] [place] [address] Fish FarmerDispute Resolution Specialist 12/26/23 04/07/[address] 3rd [place] [address] Gastroenterology 09/09/24 documented as of this encounter
--- OUTSIDE RECORDS SUMMARY | 2025-02-17 10:51 | XMS_ITS | Encounter Summary ---
Author Organization [employer] Address [address] [facility] 7t [place] [address] Care Team Providers Care General Laborer Name Role Phone Rigoberto Us MD Primary Care Provide r Timothy Broussard RN Unavailable [phone] September Unavailable Reason for Visit * Reason Onset Date Comments Lab Orders 08/30/2022 Encounter Details Date Type Department Care Team (Late st Contact Info) Description 08/30/2022 Telephone [facility] MEDICINE 230 [place] [address] Rigoberto Us MD 230 [place], [place] [phone] Lab Orders Social History Tobacco Use Types [...] on filedocumented in this encounter Care Teams General Laborer Relationship Specialty Start Date End Date Rigoberto Us MD [address] [place] [address] PCP - General Internal Medicine 03/30/18 Timothy Broussard, GIANNA [address] [place] [address] Real Time OperatorHydroelectric Mechanic 12/26/23 04/07/[address] [place] [address] 3rd [place] [address] Gastroenterology 09/09/24 documented as of this encounter
--- OUTSIDE RECORDS SUMMARY | 2025-02-17 10:51 | XMS_ITS | Encounter Summary ---
Author Organization [employer] Address [address] [facility] [address] 7t [place] [address] Care Team Providers Care Bar Hostess Name Role Phone Rigoberto Us MD Primary Care Provide r Timothy Broussard RN Unavailable [phone] September Unavailable Reason for Visit * Reason Onset Date Comments Reschedule 01/12/2024 Encounter Details Date Type Department Care Team ([facility] st Contact Info) Description 01/12/2024 Telephone [facility] MEDICINE 230 [place], [place] [phone] Rigoberto Us MD 230 [place], [place] [phone] Reschedule Social History Tobacco Use Types Packs/Day [...] EDT Tc from sister calling 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 documented in this encounter Plan of Treatment Not on file documented as of this encounter Visit Diagnoses Not on filedocumented in this encounter Additional Health Concerns Assessment Noted Time PHQ-9 Depression Total Score: 8 08/26/19 24 11:49 AM EST documented as of this encounter Care Teams Bar Hostess Relationship Specialty Start Date End Date Rigoberto Us MD 230 [place] [address] PCP - General Internal Medicine 03/30/18 Timothy Broussard RN [address] [place] [address] Stock Drier TenderAssessment Services Manager 12/26/23 04/07/24 Kathy Nel[address] 3rd [place] [address] Gastroenterology 3/20/25 documented as of this encounter
--- OUTSIDE RECORDS SUMMARY | 2025-02-17 10:51 | XMS_ITS | Clinical Summary ---
Author Organization [employer] Address [address] [place] [address] Care Team Providers Care Plan Rep Name Role Phone Rigoberto Us MD Primary [...] BY MOUTH EVERY DAY AT NOON Active acetaminophen (Tylenol Extra Strength) 500 MG tabletIndication s:Osteoporosis with current pathological fracture with delayed healing, unspecified osteoporosis type, subsequent encounter Take 1 tablet (500 mg) by mouth every 8 (eight) hours if needed for mild pain. 90 tablet 3 06/15/20 24 Active Ascorbic Acid (vitamin C) 250 MG tablet TAKE 1 TABLET(250 MG) BY MOUTH IN THE MORNING 90 tablet 1 11/24/19 25 Active simvastatin (Zocor) 20 MG tablet TAKE 1 TABLET BY MOUTH EVERY DAY IN THE EVENING 90 tablet 12/08/19 25 Active ferrous gluconate (Fergon) 324 (38 Fe) MG tablet TAKE 1 TABLET(324 MG) BY MOUTH WITH BREAKFAST 90 tablet 02/08/20 25 Active ferrous gluconate (Fergon) 324 (38 Fe) MG tablet TAKE 1 TABLET(324 MG) BY MOUTH WITH BREAKFAST 90 tablet 11/05/19 25 025 Discontinued Active Problems Problem Noted Date Diagnosed Date Rectal adenocarcinoma 01/11/2025 Assessment & Plan (01/11/2025 3:38 PM EDT): Patient here for a follow up Recently diagnosed with a rectal adenocarcinoma by Dr Dudley, referred to Oncology Colonoscopy 04/23/2024 yielded a: Colon, rectal polyp: High-grade dysplasia/intramucosal adenocarcinoma. PET CT ordered by Dr Sterling that showed:Low metabolic uptake in the right apical nodule. Findings are consistent with infection or inflammation although neoplasm cannot be excluded. Close CT follow-up would be recommended.There was an incidental finding of a Focus of increased uptake within the cecum. No abnormality is noted on CT. Direct visualization with colonoscopy was recommended to exclude a primary colonic neoplasm. Patient had a repeat Colonoscopy 10/08/2024 that showed:rectal polyp: path: polypectomy: Polypoid colonic mucosa with high grade dysplasia and thermal artifact. Pt was subsequently seen by Dr Gonzales, he is now Status post transanal excision of a distal rectal polyp. Unfortunately, his path report shows an adenocarcinoma, T2, with negative margins although closed in the deep margins He was referred to the oncology service to evaluate for the benefit of adjuvant chemotherapy and radiation. Dr Gonzales 12/22/2024 recommended to see him again in his office in about 1 month. Cyst on ear 11/26/2024 Iron deficiency anemia 07/26/2024 Pain in both testicles 06/15/2024 Assessment & Plan (09/09/2024 2:00 PM EDT): Scheduled to see Urology 10/04/2024 Assessment & Plan (06/15/2024 12:43 PM EST): Intermittent, urology referral Hospital discharge follow-up 01/08/2024 Assessment & Plan (01/08/2024 12:56 PM EDT): Pt here for a HDF Admitted to [facility] from 12/11-12/16/2023 after he presented for evaluation [...] PM EST): S/P kyphoplasty by IR at [facility] 09/20/2022 For pain control I have prescribed Oxycodone Diagnostic work up for secondary causes of osteoporosis unrevealing He is on Calcium and Vitamin D On Tymlos Evaluated by Endocrinology , last seen 05/18/2024. Assessment & Plan (12/02/2023 10:17 AM EDT): S/P kyphoplasty by IR at [facility] 09/20/2022 For pain control I have prescribed Oxycodone Diagnostic work up for secondary causes of osteoporosis unrevealing He is on Calcium and Vitamin D On Tymlos Evaluated by Endocrinology , last seen 08/14/2023 has a follow up in January Assessment & Plan (08/26/2023 11:31 AM EST): S/P kyphoplasty by IR at [facility] 09/20/2022 For pain control I have prescribed Oxycodone Diagnostic work up for secondary causes of osteoporosis unrevealing He is on Calcium and Vitamin D On Tymlos Evaluated by Endocrinology , last seen 08/14/2023 Assessment & Plan (02/04/2023 11:43 AM EDT): S/P kyphoplasty by IR at [facility] 09/20/2022 For pain control I have prescribed [...] PCP Microscopic hematuria 09/24/2022 Assessment & Plan (01/11/2025 3:45 PM EDT): Pt seen in the ER [...] calyceal diverticulum with calculus. No acute findings. Patient was last seen by Urology 12/09/[address] Urogram from 11/25/2024 that showed: IMPRESSION: 1. No acute obstructive uropathy or urolithiasis. 2. Multiple small bilateral renal cysts. Multiple too small to accurately characterize subcentimeter renal cortical lesions which statistically are likely cysts. No solid renal lesion identified. 3. Unremarkable urinary bladder. 4. Additional findings as above. Assessment & Plan (09/09/2024 1:59 PM EDT): [...] and facet arthritis pt already following w [facility] applier receiving Tymlos (abaloparatide)-states was not receiving lately x issues with pharmacy but to resume now -pt takes med to [facility] app[facility] for med administration -advised to continue w [...] PM EDT): S/P kyphoplasty by IR at [facility] 09/20/2022 For pain control I have prescribed Oxycodone but he stopped taking it Today he describes his pain at 7/10 when severe 10/10 Diagnostic work up for secondary causes of osteoporosis unrevealing He is on Calcium and Vitamin D Started on Tymlos, followed by Endocrinology Seen at [facility] On 03/19/23: Kyphon Balloon Kyphoplasty with Insertion of HV-R Bone Cement, L1 and L2 Vertebral Bodies: with 80% relief. Last seen at [facility] 10/24/2023 Scheduled for fluoroscopy guided diagnostic left L3-L4 DR L5 medial branch blocks with local anesthetic. Plan: Continue Flexeril and MS Contin 15 mg po BID risk discussed particularly around somnolence , sedation and counseled about fall prevention Assessment & Plan (12/02/2023 10:20 AM EDT): S/P kyphoplasty by IR at [facility] 09/20/2022 For pain control I have prescribed Oxycodone but he stopped taking it Today he describes his pain at 7/10 when severe 10/10 Diagnostic work up for secondary causes of osteoporosis unrevealing He is on Calcium and Vitamin D Started on Tymlos, followed by Endocrinology Seen at [facility] On 03/19/23: Kyphon Balloon Kyphoplasty with Insertion of HV-R Bone Cement, L1 and L2 Vertebral Bodies: with 80% relief. Last seen at [facility] 10/24/2023 Scheduled for fluoroscopy guided diagnostic left L3-L4 DR L5 medial branch blocks with local anesthetic. Plan: Continue Flexeril Start MS Contin 15 mg po BID risk discussed particularly around somnolence , sedation and counseled about fall prevention Assessment & Plan (04/22/2023 11:28 AM EDT): S/P kyphoplasty by IR at [facility] 09/20/2022 For pain control I have prescribed Oxycodone but he stopped taking it Diagnostic work up for secondary causes of osteoporosis unrevealing He is on Calcium and Vitamin D Started on Tymlos, followed by Endocrinology Seen at [facility] On 03/19/23: Kyphon Balloon Kyphoplasty with Insertion of HV-R Bone Cement, L1 and L2 Vertebral Bodies: with 80% relief. Assessment & Plan (02/04/2023 11:41 AM EDT): S/P kyphoplasty by IR at [facility] 09/20/2022 For pain control I have prescribed [...] Patient is undergoing kyphoplasty by IR at [facility] tomorrow 09/20/2022 For pain control I have [...] AM EDT): S/P kyphoplasty by IR at [facility] 09/20/2022 For pain control I have prescribed [...] for a f/u He was seen by energy conservation specialist at [facility] He tells me he was given injections [...] BID, He was advised to f/u with [employer] Operator Chief Pt reports he is still drinking on [...] for a HDF He presented again to [facility] from 05/30 until 06/01 with c/o increased SOB. EKG showing persistent Afib. Rate remained suppressed on Sotalol therapy, He was kept on Eliquis 5mg BID and the recommendation was to f/u with cardiology as outpatient for Holter monitor Pt tells me he has an appointment with Dr Francis this Friday Bipolar disorder 10/06/2018 Assessment & Plan (01/11/2025 3:46 PM EDT): Under the care of Moraima Charles at [facility] Assessment & Plan (09/09/2024 2:06 PM EDT): Under the care of Dasia Soni at [facility] Assessment & Plan (12/02/2023 11:34 AM [...] AM EST): Under the care of Dasia newell [facility] [...] PM EDT): Under the care of Dasia newell [facility] Seroquel nd Trazodone were discontinued in the Hospital due to prolongued Qtc He is now on Sertraline 25 mg po daily Assessment & Plan (01/08/2024 1:41 PM EDT): Under the care of Dasia Soni [facility] Seroquel nd Trazodone were discontinued in [...] EDT): Under the care of Dasia Soni [facility] On Seroquel 300 mg po qhs Bupropion and Trazodone 100 mg po qhs per his report Assessment & Plan (06/04/2022 9:09 AM EST): Under the care of Dasia Soni [facility] Tubular adenoma of colon 03/10/2018 Assessment [...] going into A.fib Pt was cleared by [employer] 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 Operator Chief 06/01 and is awaiting GI appointment for [...] A.fib Pt has now been cleared by [employer] Operator Chief 06/01 and is awaiting GI appointment for [...] of Trelegy and Ventolin Dr Pisano his svp mentioned in a previous note that patient [...] of Trelegy and Ventolin Dr Pisano his svp mentioned in a previous note that patient [...] scarring related to pneumonia Dr Pisano his svp mentioned in a previous note that patient [...] scarring related to pneumonia Dr Pisano his svp mentioned in a previous note that patient [...] Pt was seen by Dr Pisano his svp 08/2022 he mentioned in his note that [...] to pneumonia Pt was seen by Dr Pisaon his svp 08/2022 he mentioned in his note that [...] Pt was seen by Dr Pisano his svp 08/2022 he mentioned in his note that [...] Pt was seen by Dr Pisano his svp 05/21/2022 who recommended a repeat Chest CT [...] Encounters Date Type Department Care Team Description 02/07/[address] [address] Rigoberto Us MD 01/11/2025 3:00 PM EDT Office Visit [address] [address] Rigoberto Us MD Rectal adenocarcinoma (CMS/HCC) (Primary Dx); Bipolar affective disorder, remission status unspecified (CMS/HCC); Microscopic hematuria 01/11/2025 Travel 01/10/[address] [address] Rigoberto Us MD chart prep 01/06/2025 Orders Only GENERIC EXTERNAL DATA DEPARTMENT Provider, Generic External Data 01/04/2025 Patient Outreach [facility] [address] [place] [address] Rigoberto Us MD Pre-visit Planning (SDOH negative. Tobacco screening negative.) 12/23/2024 Results Follow-Up [address] [address] Demi Garcia, criminal justice department chair to General Surgery 12/09/2024 Orders Only GENERIC EXTERNAL DATA DEPARTMENT Provider, Generic External Data 12/06/[address] [address] Rigoberto Us MD 11/26/2024 1:15 PM EDT Office Visit [facility] [address] [place] [address] Eliseo Steiner CNP Cyst on ear (Primary Dx) 11/26/2024 Travel 11/25/2024 Telephone [facility] [address] [place] [address] Rigoberto Us MD Nurse Triage 11/25/2024 Orders Only [facility] External Provider, [facility] 11/22/2024 Refill [facility] [address] [place] [address] Rigoberto Us MD from Last 3 Months Immunizations Immunization Administration Dates Next Due Hep A, Adult [...] housing situation today? I have yasmeen jennings 01/04/[address] you li ve. Do you have problems with any of the following? None of the above 01/04/2025 Food Insecurity Answer Date Recorded Within the past 12 months, y ou worried that your food would run out before you got money to buy more: Never True 01/04/2025 Within the past 12 months,th e food you bought just didn't last and you didn't have enough money to get more: Never True Transportation Answer Date Recorded In the past 12 months, has l ack of transportation kept you from medical appts, meetings, work or from getting things needed for daily living? No 01/04/2025 Utilities Answer Date Recorded In the past 12 months, has t he electric, gas, oil or water company threatened to shut off services in your home? No 01/04/2025 Depression Answer Date Recorded Patient Health Questionnaire-2 Score 2 08/26/2023 Internet Access Answer Date Recorded Internet Access Q1 Yes 01/04/2025 Internet Access Q2 Not on file 01/04/2025 Sex and Gender Information Value Date Recorded Sex Assigned at Male 04/22/2022 10:14 AM EDT Legal Sex Male 10:14 AM EDT Gender Identity Male 04/22/2022 10:14 AM EDT Sexual Orientation Straight 04/22/2022 10 :14 AM EDT Last Filed Vital Signs Vital Sign Reading Time Taken Comments Blood Pressure 119/75 01/11/2025 2:49 PM EDT Pulse 65 01/11/2025 2:49 PM EDT Temperature 36.2 C (97.1 F) 01/11/2025 2:49 PM EDT Respiratory Rate 23 01/11/2025 2:49 PM EDT Oxygen Saturation 93% 01/11/2025 2:49 PM EDT Inhaled Oxygen Concentration - - Weight 94.4 kg (208 lb 3.2 oz) 01/11/2025 2:49 P M EDT Height 180.3 cm (5' 11 ) 01/11/2025 2:49 PM EDT Body Mass Index 29.04 01/11/2025 2:49 PM EDT Plan of Treatment Health Maintenance Due Date Last Done Comments CT Colonography 1955 FIT DNA/Cologuard 1955 FIT 1955 FOBT 1955 Sigmoidoscopy 1955 Hepatitis C Screening 1972 DTaP/Tdap/Td Vaccines (2 - Td or Tdap) 02/25/2023 02/25/2013, 04/26/1996 COVID-19 Vaccine ( season) 2024 07/21/2023, 07/26/2022, 05/16/2021, Additional history exists Depression Screening 08/25/2024 08/26/2023, 08/26/19 24 Influenza Vaccine (#1) 2025 , 07/21/2023, 06/04/2022, Additional history exists Alcohol/Substance Use Screening 06/15/2025 06/15/2024 SDOH Screening 01/04/2026 01/04/2025 Tobacco Screening 01/11/2026 01/11/2025 Lipid Panel 03/23/2026 03/23/2021 Colonoscopy 04/23/2029 04/23/2024, 03/19/2017 Colorectal Cancer Screening 04/23/2029 Hepatitis A Vaccines Aged Out 02/11/2012 No long er eligible based on patient's age to complete this topic Pneumococcal Vaccine: 50+ Years Completed 06/04/2022, 03/21/2020 Zoster Vaccines Completed 09/19/2022, 05/23, 06/13/2015 RSV Patients and Patients Aged 60 years or older Completed 03/15/2023 HIB Vaccines Aged Out No longer eligi [...] patient's age to complete this topic Meningococcal B Vaccine Aged Out No l onger eligible based on patient's age to complete [...] Procedure Name Priority Date/Time Associated Diagnosis Comments MR PELVIS W AND WO CONTRAST Routine 01/19/2025 3:07 PM EDT TESTOSTERONE, FREE (DIALYSIS) AND TOTAL,MS Routine 01/06/2025 9:52 AM EDT PSA, TOTAL WITH REFLEX TO PSA, FREE Routine 01/06/2025 9:52 AM EDT COMPREHENSIVE METABOLIC PANEL Routine 01/06/2025 9:52 AM EDT Iron deficiency anemia, unspecified iron deficiency anemia type IRON AND TOTAL IRON BINDING CAPACITY Routine 01/06/2025 9:52 AM EDT Iron deficiency anemia, unspecified iron deficiency anemia type CBC WITH AUTO DIFFERENTIAL Routine 01/06/2025 9:52 AM EDT Iron deficiency anemia, unspecified iron deficiency anemia type AMB REFERRAL TO GENERAL SURGERY Routine 12/22/2024 Cyst on ear HEMATOXYLIN AND EOSIN STAIN Routine 12/09/2024 11:[address] UROGRAM WO CONTRAST Routine 1:45 PM EDT POCT CREATININE GFR Routine 11/25/2024 1 0:01 AM EDT HM COLONOSCOPY Routine 04/23/2024 LIPID PANEL, STANDARD Routine 03/23/2021 9:05 AM EDT from Last 3 Months or Most Recently Relevant to Health Maintenance Results * MR Pelvis w/ and w/o Contrast (01/19/2025 3:07 PM EDT) Anatomical Region Laterality Modality Body, Pelvis Magnetic Resonan ce 01/19/2025 3:07 PM EDT Narrative 01/20/2025 3:07 PM EDT [address] [id number] Magnetic Resonance Report Signed Patient: Avery Ware MR#: [id number] : 1955 Acct:[id number] Age/Sex: 69 / M ADM Date: 01/19/25 Loc: HO.MRI Attending Dr: Yulisa Haynes MD Ordering Physician: Yulisa Haynes MD Date of Service: 01/19/25 Procedure(s): MR pelvis wo/w con Accession Number(s): [id number] cc: Yulisa Haynes MD; Rigoberto Madrigal MD EXAMINATION: MR PELVIS WITHOUT AND WITH CONTRAST CLINICAL INFORMATION: Rectal carcinoma. On colonoscopy 10/08/2024 Society rectal polyp #1 10-12 mm. Polyp # 2 measured 12 15 mm just proximal to anal verge. COMPARISON: CT abdomen and pelvis 11/25/2024. TECHNIQUE: Routine MRI sequences with and without contrast were obtained. Approximately 10 mL of gadolinium was injected intravenously without adverse reaction. FINDINGS: There is mural thickening involving the posterior half [place] of upper rectal wall with wall thickening measuring 5 mm on axial slice 50/10. This could be the site of rectal polyp #1 resection on recent colonoscopy 10/08/2024. It is best visualized on axial T1 wide sequence image 54/10 and 54/11 There is no abnormal T2 signal or enhancement seen to suspect any underlying lesion or tumor infiltration. The perirectal fascia is intact. 4 mm punctate lymph nodes are seen along the pelvic wall without enhancement. Previously seen polyp # 2 at anal verge or at the anorectal junction shows no mural thickening or abnormal enhancement. The perirectal fascia is normal. No abnormal perirectal lymph nodes or enhancement. There is scattered stool seen in rectum and sigmoid colon No abnormal inguinal, internal or external iliac abnormal lymph nodes seen. The urinary bladder is unremarkable. The prostate gland is normal size with normal signal seen in the peripheral zone on axial T2 fast spin sequence Visualized bone marrow signal of the pelvic bones, sacrum and lower lumbar vertebra appear normal. MR/MR pelvis wo/w con IMPRESSION: No abnormal mural thickening, mucosal enhancement or mesorectal /facial abnormal signal enhancement seen along the anal verge. Slightly proximally in upper rectum approximately 5.5 cm from the anorectal junction there is posterior submucosal/wall thickening without enhancement or edema on T2 sequence. On colonoscopy visualized polyp in this area labeled #1 was benign. Likely changes on MRI are postsurgical or scarring. Punctate 4 mm lymph nodes in the deep perirectal/lateral pelvic wall likely nonspecific or benign. No enhancement seen. Electronically signed by: Wil Delgado MD 01/20/2025 03:05 PM EDT RP Dictated By: Wil Delgado MD Signed By: <Electronically signed by Wil Delgado MD in OV> 01/20/25 1505 DD/ 1507 TD/TT: 01/19/25 1534 Underwriter: [facility] Procedure Note Donotuseinterpreter, Image - 01/20/[address] [address] Magnetic Resonance Report Signed Patient: Avery WareMR#: [id number] : 1955cct:[id number] Age/Sex: 69 / MADM Date: 01/19/25 Loc: .MRI Attending Dr: Yulisa Haynes MD Ordering Physician: Yulisa Haynes MD Date of Service: 01/19/25 Procedure(s): MR pelvis wo/w con Accession Number(s): [id number] cc: Yulisa Haynes MD; Rigoberto Madrigal MD EXAMINATION: MR PELVIS WITHOUT AND WITH CONTRAST CLINICAL INFORMATION: Rectal carcinoma. On colonoscopy 10/08/2024 Society rectal polyp #1 10-12 mm. Polyp # 2 measured 12 15 mm just proximal to anal verge. COMPARISON: CT abdomen and pelvis 11/25/2024. TECHNIQUE: Routine MRI sequences with and without contrast were obtained. Approximately 10 mL of gadolinium was injected intravenously without adverse reaction. FINDINGS: There is mural thickening involving the posterior half [place] of upper rectal wall with wall thickening measuring 5 mm on axial slice 50/10. This could be the site of rectal polyp #1 resection on recent colonoscopy 10/08/2024. It is best visualized on axial T1 wide sequence image 54/10 and 54/11 There is no abnormal T2 signal or enhancement seen to suspect any underlying lesion or tumor infiltration. The perirectal fascia is intact. 4 mm punctate lymph nodes are seen along the pelvic wall without enhancement. Previously seen polyp # 2 at anal verge or at the anorectal junction shows no mural thickening or abnormal enhancement. The perirectal fascia is normal. No abnormal perirectal lymph nodes or enhancement. There is scattered stool seen in rectum and sigmoid colon No abnormal inguinal, internal or external iliac abnormal lymph nodes seen. The urinary bladder is unremarkable. The prostate gland is normal size with normal signal seen in the peripheral zone on axial T2 fast spin sequence Visualized bone marrow signal of the pelvic bones, sacrum and lower lumbar vertebra appear normal. MR/MR pelvis wo/w con IMPRESSION: No abnormal mural thickening, mucosal enhancement or mesorectal /facial abnormal signal enhancement seen along the anal verge. Slightly proximally in upper rectum approximately 5.5 cm from the anorectal junction there is posterior submucosal/wall thickening without enhancement or edema on T2 sequence. On colonoscopy visualized polyp in this area labeled #1 was benign. Likely changes on MRI are postsurgical or scarring. Punctate 4 mm lymph nodes in the deep perirectal/lateral pelvic wall likely nonspecific or benign. No enhancement seen. Electronically signed by: Wil Delgado MD 01/20/2025 03:05 PM EDT RP Dictated By: Wil Delgado MD Signed By: <Electronically signed by Wil Delgado MD in OV> 01/20/25 1505 DD/ 1507 TD/TT: 01/19/25 1534 Underwriter: JESS[facility] External Provider IMG MRI PROCEDURES Final Result * PSA, Total With Reflex to PSA, Free (01/06/2025 9:52 AM EDT) PSA,Total (Free>4and<10) 0.46 0.00 - 4.00 ng/mL [facility] Comment:A Free PSA was not p erformed: The percentage of Free PSA can be used to enhance the differentiation of prostate cancer from benign prostatic disease in subjects whose PSA levels are between 4.0 and 10.0 ng/mL. For subjects whose PSA levels are below 4.0 or above 10.0 ng/mL, the risk of prostate cancer is determined on the basis of the PSA alone. Therefore the % Free PSA is recommended only for those subjects whose PSA levels are between 4.0 and 10.0 ng/mL.PSA methodology: [employer] Alinity i ChemiluminescentMicroparticle Immunoassay (CMIA) 01/06/2025 9:52 AM EDT 01/06/2025 9:52 AM EDT us Generic External Data Provider LAB BLOOD ORDERAB LES Final Result [facility] [address] [place] [address] [phone] * (ABNORMAL) CBC auto differential (01/06/2025 9:52 AM EDT) White Blood Count 8.8 4.8 - 10.8 X10*3/uL [facility] Red Blood Count 5.11 4.60 - 5.80 X10*6/uL [facility] Hemoglobin 15.6 14.0 - 18.0 g/dl [facility] Hematocrit 46.7 42.0 - 52.0 % [facility] Mean Corpuscular Volume 91.4 80.0 - 98.0 fL [facility] Mean Corpuscular Hemoglobin 30.5 27.0 - 33.0 pg [facility] Mean Corpuscular HGB Conc 33.4 31.0 - 36.0 g/dl [facility] Red Cell Distribution Width 12.9 11.0 - 16.0 % [facility] Platelet Count 206 160 - 400 X10*3/uL [facility] Mean Platelet Volume 9.7 9.4 - 12.4 fL [facility] Neutrophils Percent Auto 80.9(H) 45 - 73 % [facility] Imm Gran Pct Auto 0.3 0.0 - 0.4 % [facility] Lymphocytes Percent Auto 12.5(L) 20 - 40 % [facility] Monocytes Percent Auto 5.2 2 - 11 % [facility] Eosinophils Percent Auto 0.8 0 - 4 % [facility] Basophils Percent Auto 0.3 0 - 2 % [facility] NRBC Pct Auto 0.0 0.0 - 0.2 /100WBC [facility] Neutrophils Absolute Auto 7.1 2.0 - 8.3 x10*3/uL [facility] Imm Gran Abs Auto 0.03 0.00 - 0.03 X10*3/uL [facility] Lymphocytes Absolute Auto 1.1(L) 1.2 - 4.9 X10*3/uL [facility] Monocytes Absolute Auto 0.5 0.1 - 1.2 X10*3/uL [facility] Eosinophils Absolute Auto 0.1 0.0 - 0.4 X10*3/uL [facility] Basophils Absolute Auto 0.0 0.0 - 0.2 X10*3/uL [facility] NRBC Abs Auto 0.000 0.0 - 0.012 X10*3/uL [facility] Blood Venous blood specimen / Unknown 01/06/2025 9:52 AM EDT 01/06/2025 9:52 AM EDT us Milenarafael Lopez [employer] LAB BLOOD ORDERABLES Final Res ult [facility] [address] [place] [phone] * Iron And Total Iron Binding Capacity (01/06/2025 9:52 AM EDT) Iron 96 45 - 160 mcg/dL [facility] Total Iron Binding Capacity 259 228 - 428 mcg/dL [facility] Percent Iron Saturation 37 15 - 50 % [facility] Unsaturated Iron Binding 163 ug/dL [facility] Blood Venous blood specimen / Unknown 01/06/2025 9:52 AM EDT 01/06/2025 9:52 AM EDT us Milenarafael Shaverzenon AUTOMOTIVE SERVICE CONSULTANT LAB BLOOD ORDERABLES Final Res ult [facility] [address] [place] [address] [phone] * Testosterone, Free (Dialysis) And Total, MS (01/06/2025 9:52 AM EDT) Testosterone, Total 356 250 - 1100 ng/dL [facility] Comment:Men with clinically significant hypogonadalsymptoms and testosterone values repeatedly inthe range of the 200-300 ng/dL or less, maybenefit from testosterone treatment afteradequate risk and benefits counseling.For additional information, please refer tohttp://education.Spiral Gateway/faq/MapnlZdzvfmpdgsolAOYGBQURC590(This link is being provided for informational/educational purposes only.)This test was developed and its analytical performancecharacteristics have been determined by [employer]. It hasnot been cleared or approved by the U.S. Food and DrugAdministration. This assay has been validated pursuantto the CLIA regulations and is used for clinicalpurposes. Testosterone, Free 35.6 30.0 - 135.0 pg/mL [facility] Comment:This test was develo ped and its analytical performancecharacteristics have been determined by [employer] [place], [place]. It hasnot been cleared or approved by the U.S. Food and DrugAdministration. This assay has been validated pursuantto the CLIA regulations and is used for clinicalpurposes.THIS TEST WAS PERFORMED AT:[id number] [place] [address]ZUHUAGXMELVIN RUBIO MD,PHD 01/06/2025 9:52 AM EDT 01/06/2025 9:52 AM EDT us Generic External Data Provider LAB BLOOD ORDERAB LES Final Result Performing Organization Address [facility]/ZIP Co de Phone Number [facility] [address] [place] [address] [phone] * (ABNORMAL) Comprehensive Metabolic Panel (01/06/2025 9:52 AM EDT) Sodium 142 135 - 145 mmol/L [facility] Potassium 3.5 3.3 - 5.1 mmol/L [facility] Chloride 108 96 - 108 mmol/L [facility] Carbon Dioxide 27 22 - 29 mmol/L [facility] Anion Gap 11(L) 12 - 20 [facility] Urea Nitrogen (BUN) 11 9 - 16 mg/dL [facility] Creatinine, Serum 0.78 0.5 - 1.4 mg/dL [facility] Estimated Glomerular Filt Rate >60 [facility] Comment:Chronic Kidney Disea se: Estimated GFR < 60 mL/min/1.73k4Hpdket Kidney Disease: Estimated GFR < 15 mL/min/1.73m2 Glucose 97 60 - 115 mg/dL [facility] Calcium 8.6 8.4 - 10.2 mg/dL [facility] Bilirubin, Total 0.7 0.0 - 1.0 mg/dL [facility] Aspartate Amino Transferase 16 5 - 37 U/L [facility] Alanine Aminotransferase 18 0 - 40 U/L [facility] Total Protein 7.4 6.5 - 8.0 g/dL [facility] Albumin Level 4.1 3.5 - 5.0 g/dL [facility] Alkaline Phosphatase 62 39 - 117 U/L [facility] Blood Venous blood specimen / Unknown 01/06/2025 9:52 AM EDT 01/06/2025 9:52 AM EDT us Milenarafael Lopez AUTOMOTIVE SERVICE CONSULTANT LAB BLOOD ORDERABLES Final Res ult Performing Organization Address City/[facility]/ZIP Co de Phone Number [facility] [address] [place] [address] [phone] * Referral to General Surgery (12/22/2024) [facility] OUTPATIENT REFERRAL ORDER YULISA Final Result * Hematoxylin and Eosin Stain (12/09/2024 11:38 AM EDT) 12/09/2024 11:3 8 AM EDT 12/09/2024 12:00 PM EDT Narrative [facility] - 12/13/2024 2:12 PM EDT ----- ------- Name: Avery Ware Age/Sex: 69/M : 1955 Unit#: [id number] Attend Dr: Don Gonzales MD Re12/09/24 Status: [facility] Location: [facility] Disch: ----- ------- SPEC : [id number] RECD: 12/09/24-1200 STATUS: AUDRA TATUM NUM: [id number] FRANCOIS: 12/09/24-1138 [facility] DR: Don Gonzales MD ENTERED: 12/09/24-1212 SP TYPE: Surgical OTHR DR: Milena Lopez AUTOMOTIVE SERVICE CONSULTANT ORDERED: HE Stain/3, Gross Micro L4 Diagnosis Anal polyp, transanal excision: -Invasive adenocarcinoma, residual, G2. -Positive for vascular and lymphatic invasion. -Deep margin is very close, within microns. -Tumor undermines benign squamous and colonic mucosa. -Adenoma with high grade dysplasia. -Hemorrhoidal vessels present. Data Synopsis - Anal Excision Procedure: Transanal excision Tumor site: Per operative note: Very proximal anal canal near the distal rectum Tumor size: Estimated microscopic span of 2.4 cm. Specimen integrity: Intact Histologic type: Adenocarcinoma Histologic grade: G2 Invasion extent: Invades submucosa and invades sphincteric muscle Lymphatic and/or vascular invasion: Present Perineural invasion: Not identified Margins, invasive carcinoma: Deep: Distance from deep margin: Tumor is very close to deep margin: within microns Mucosal: Distance from mucosal margin: 1 mm Margins Adenoma: 7 mm to margin Intramucosal adenocarcinoma/High grade dysplasia: 7 mm to margin Lymph nodes Number examined: 0 Number involved: 0 Treatment effect: No known presurgical therapy TNM: pT2 pN not assigned (AJCC V 9) Ancillary studies: Previous biopsy ([id number]) reported Stain results which were negative for mismatch repair defect/ Dunn Syndrome-related lesion, and positive CDX2. CONTINUED ON NEXT PAGE ----- ------- Name: Avery Ware Age/Sex: 69/M : 1955 Unit#: [id number] Attend Dr: Don Gonzales MD Re12/09/24 Status: [facility] Location: [facility] Disch: ----- ------- SPEC : [id number] RECD: 12/09/24-1199 STATUS: AUDRA TATUM NUM: [id number] FRANCOIS: 12/09/24-1138 [facility] DR: Don Gonzales MD ENTERED: 12/09/24-1212 SP TYPE: Surgical OTHR DR: Milena Lopez AUTOMOTIVE SERVICE CONSULTANT ORDERED: HE Stain/3, Gross Micro L4 Clinical History Rectal polyp Additional history: Rectal polyp with fragments of high-grade dysplasia/intramucosal adenocarcinoma arising within adenoma ([id number]). Microscopic Description Microscopic sections show infiltration of irregular glands of atypical columnar epithelium with moderate vesicular cytoplasm and enlarged irregular nuclei with prominent nucleoli. There is necrosis and apoptosis. The tumor undermines benign colonic and squamous mucosa. Focal adenoma with high-grade dysplasia is noted. Material Received Anal polyp Gross Description Received in formalin labeled anal polyp is a 2.9 x 2.4 x 0.5-0.8 cm velvety, lobular, congested and hemorrhagic polypoid portion of rectal mucosa and submucosa. The resected base is inked and the specimen is serially sectioned to reveal a 0.6 x 0.6 x 0.5 cm focus of rubbery, firm, shen-white fibrous tissue versus submucosal tumor. The remaining mucosa and submucosa are otherwise unremarkable. The specimen is entirely submitted in cassettes A1- A3. CEDS This case was reviewed intradepartmentally. Results given to Dr. Gonzales by secure text by Dr. Chavis on 12/13/2024 at 12:28 pm. IHC S/NG Disclaimer NOTE: Unless otherwise stated, all tissue is formalin-fixed and paraffin-embedded. Some or all of the immunohistochemical tests reported herein may have been developed and their performance characteristics determined by [facility]. They have not been cleared or approved by the U.S. Food and Drug Administration (FDA). However, the FDA has determined that such clearance or approval is not necessary. This laboratory is certified under the Clinical Laboratory Improvement Amendments of 1988 (CLIA) as qualified to perform high complexity clinical laboratory testing. CONTINUED ON NEXT PAGE ----- ------- Name: Avery Ware Age/Sex: 69/M : 1955 Unit#: [id number] Attend Dr: Don Gonzales MD Re12/09/24 Status: [facility] Location: [facility] Disch: ----- ------- SPEC : [id number] RECD: 12/09/24 STATUS: AUDRA TATUM NUM: [id number] FRANCOIS: 12/09/24-1138 [facility] DR: Don Gonzales MD ENTERED: 12/09/24-1212 SP TYPE: Surgical OTHR DR: Milena Lopez ORDERED: GLEN Stain/3, Gross Micro L4 Copies To: Don Gonzales MD [facility] [address] [place], [place] [phone] Milena Lopez [address] [phone] ----- ------- Signed (signature on file) Nicole Chavis 12/13/24 1412 ----- ------- END OF REPORT us Generic External Data Provider LAB BLOOD ORDERAB LES Final Result [facility] [address] [place] [phone] * CT Urogram w/o Contrast (11/25/2024 1:45 PM EDT) Anatomical Region Laterality Modality Ureter, Upper urinary tract Comp uted Tomography 11/25/2024 1:45 PM EDT Narrative 11/25/2024 1:46 PM EDT [address] [address] [address] Scan Report Signed Patient: Avery Ware MR#: [id number] : 1955 Acct:[id number] Age/Sex: 69 / M ADM Date: 11/25/24 Loc: HO.CT Attending Dr: Larry Ochoa MD Ordering Physician: Larry Ochoa MD Date of Service: 11/25/24 Procedure(s): CT urogram Accession Number(s): [id number] cc: Larry Ochoa MD; Milena Lopez [facility] Report Number: [id number]: Total DLP = 948.00 mGy-cm CLINICAL HISTORY: N28.89 - Other specified disorders of kidney and ureter CT ABDOMEN AND PELVIS WITH AND WITHOUT CONTRAST Comparison: None Findings: Right lower lobe atelectasis and/or scarring. Small hiatal hernia. Bilateral renal excretion with no hydronephrosis or urolithiasis. There is a normal variant duplicated left ureter. There is normal renal enhancement with prominent lower pole parenchymal scarring in the right kidney. There are multiple small bilateral renal cysts. There are additional subcentimeter renal cortical hypodensities are too small to accurately characterize. There is a 2 cm lower pole lesion in the right kidney with density measurements 3 HU, 19 HU and 3 HU on precontrast, postcontrast and delayed imaging. No solid renal cortical lesion. There is fatty infiltration of the liver. Pancreas, spleen and adrenal glands are unremarkable. Gallbladder is partly contracted. No AAA. No bowel obstruction, pneumoperitoneum, or pneumatosis. No ascites. No significant mesenteric or paracolic edema. The appendix is not seen. Normal size prostate. Urinary bladder is smooth in outline. No intraluminal filling defect. T9, L1 and L2 kyphoplasty changes. IMPRESSION: 1. No acute obstructive uropathy or urolithiasis. 2. Multiple small bilateral renal cysts. Multiple too small to accurately characterize subcentimeter renal cortical lesions which statistically are likely cysts. No solid renal lesion identified. 3. Unremarkable urinary bladder. 4. Additional findings as above. This document has been electronically signed by: Janet Felipe DO on 11/25/2024 13:45:30 Dictated By: Janet Felipe MD Signed By: <Electronically signed by Janet Felipe MD in OV> 11/25/24 1346 DD/ 1345 TD/TT: 11/25/24 1345 Underwriter: Procedure Note Donotuseinterpreter, Image - 11/25/[address] [place] [address] [address] Scan Report Signed Patient: Avery WareMR#: [id number] : 4Acct:[id number] Age/Sex: 69 / MADM Date: 11/25/24 Loc: HO.CT Attending Dr: Larry Ochoa MD Ordering Physician: Larry Ochoa MD Date of Service: 11/25/24 Procedure(s): CT urogram Accession Number(s): [id number] cc: Larry Ochoa MD; Milena Lopez [facility] Report Number: [id number]: Total DLP = 948.00 mGy-cm CLINICAL HISTORY: N28.89 - Other specified disorders of kidney and ureter CT ABDOMEN AND PELVIS WITH AND WITHOUT CONTRAST Comparison: None Findings: Right lower lobe atelectasis and/or scarring. Small hiatal hernia. Bilateral renal excretion with no hydronephrosis or urolithiasis. There is a normal variant duplicated left ureter. There is normal renal enhancement with prominent lower pole parenchymal scarring in the right kidney. There are multiple small bilateral renal cysts. There are additional subcentimeter renal cortical hypodensities are too small to accurately characterize. There is a 2 cm lower pole lesion in the right kidney with density measurements 3 HU, 19 HU and 3 HU on precontrast, postcontrast and delayed imaging. No solid renal cortical lesion. There is fatty infiltration of the liver. Pancreas, spleen and adrenal glands are unremarkable. Gallbladder is partly contracted. No AAA. No bowel obstruction, pneumoperitoneum, or pneumatosis. No ascites. No significant mesenteric or paracolic edema. The appendix is not seen. Normal size prostate. Urinary bladder is smooth in outline. No intraluminal filling defect. T9, L1 and L2 kyphoplasty changes. IMPRESSION: 1. No acute obstructive uropathy or urolithiasis. 2. Multiple small bilateral renal cysts. Multiple too small to accurately characterize subcentimeter renal cortical lesions which statistically are likely cysts. No solid renal lesion identified. 3. Unremarkable urinary bladder. 4. Additional findings as above. This document has been electronically signed by: Janet Felipe DO on 11/25/2024 13:45:30 Dictated By: Janet Felipe MD Signed By: <Electronically signed by Janet Felipe MD in OV> 11/25/24 1346 DD/ 1345 TD/TT: 11/25/24 1345 Underwriter: [facility] External Provider IMG CT PROCEDURES Edited Result - Final * POCT Creatinine GFR (11/25/2024 10:01 AM EDT) POCT Creatinine 0.7 0.5 - 1.4 mg/dL [facility] GFR POC >60 [facility] Comment:Chronic Kidney Disea se: Estimated GFR < 60 mL/min/1.90v6Vhjrim Kidney Disease: Estimated GFR < 15 mL/min/1.73m2 11/25/2024 10:0 1 AM EDT 11/26/2024 3:04 PM EDT Narrative [facility] - 11/26/2024 3:07 PM EDT [id number] us Generic External Data Provider LAB POINT OF CARE TEST DOCKED DEVICE ORDERABLES Final Result [facility] [address] [place] [address] [phone] * Hm Colonoscopy (04/23/2024) Colonoscopy Normal Normal us Historical Provider HEALTH MAINTENANCE Final Result * LIPID PANEL, STANDARD (03/23/2021 9:05 AM EDT) Chol/HDLC Ratio 2.9 <5.0 (calc) [facility] Cholesterol, Total 154 <200 mg/dL [facility] HDL Cholesterol 54 > OR = 40 mg/dL [facility] LDL Cholesterol 83 mg/dL (calc) [facility] Comment: Reference range: <100 Desirable range <100 mg/dL for primary prevention; <70 mg/dL for patients with CHD or diabetic patients with > or = 2 CHD risk factors. LDL-C is now calculated using the Rodolfo-Hector calculation, which is a validated novel method providing better accuracy than the Friedewald equation in the estimation of LDL-C. Rodolfo SS et al. OLIVIER. 2013;310(19): 3244-8929 (http://education.Clarizen.EatingWell/faq/BGJ167) Non-HDL Cholesterol 100 <130 mg/dL (calc) [facility] Comment: For patients with diabetes plus 1 major ASCVD risk factor, treating to a non-HDL-C goal of <100 mg/dL (LDL-C of <70 mg/dL) is considered a therapeutic option. Triglycerides 78 <150 mg/dL [facility] 03/23/2021 9:05 AM EDT us Rigoberto Ramirez MD LAB BLOOD ORDERABLES Final Result [facility] [address] from Last 3 Months or Most Recently Relevant to Health Maintenance Insurance [facility] STAND[facility] [place] [id number] Care Teams Plan Rep Relationship Specialty Start Date End Date Rigoberto Us MD [address] [place] [phone] PCP - General Internal Medicine 03/30/18September [address] [place] [address] 3rd Floor [place] [address] Gastroenterology 09/09/24
--- OUTSIDE RECORDS SUMMARY | 2025-02-17 10:51 | XMS_ITS | Clinical Summary ---
Author Organization [facility] Address [address] [place] [address] Phone Care Team Providers Care Automation Application Engineer Name Role Phone Rigoberto Madrigal MD Primary Care Provide r Yulisa Haynes MD Unavailable [phone] Don Gonzales MD Unavailable [phone] Allergies No known active allergies Medications sucralfate (CARAFATE) 1 gram tabletIndication s:Erosive Esophagitis Take 1 g by mouth 4 (four) times a day. Indications: Erosive Esophagitis Active latanoprost (XALATAN) 0.005 % ophthalmic solution Place 1 drop into each eye nightly at bedtime. Active simvastatin (ZOCOR) 20 MG tabletIndication s:hyperlipidemia Take 20 mg by mouth nightly at bedtime. Indications: excessive fat in the blood Active ferrous gluconate 256 mg (28 mg elemental) Tab Take 324 mg by mouth daily with breakfast. Active furosemide (LASIX) 20 MG tablet Take 20 mg by mouth daily. Active ascorbic acid, vitamin C, (VITAMIN C) 250 MG tablet Take 250 mg by mouth daily. Active sotaloL (BETAPACE) 80 MG tablet Take 80 mg by mouth 2 (two) times a day. Active sertraline (ZOLOFT) 25 MG tabletIndication s:anxiety with depression Take 25 mg by mouth daily. Indications: anxiousness associated with depression Active apixaban (ELIQUIS) 5 mg tablet Take 5 mg by mouth 2 (two) times a day. Active traZODone (DESYREL) 50 MG tablet Take 50 mg by mouth nightly at bedtime. Active verapamiL (CALAN-SR) 120 MG CR tablet Take 120 mg by mouth every morning. Active denosumab (PROLIA) 60 mg/mL Syrg subcutaneous syringe Inject 60 mg under the skin every 6 (six) months. Active QUEtiapine (SEROQUEL) 100 MG tablet Take 100 mg by mouth nightly at bedtime. Active acetaminophen (TYLENOL) 500 MG tablet Take 1,000 mg by mouth every 8 (eight) hours as needed for pain (specific location in comments). Active albuterol 2.5 mg/0.5 mL nebulizer solution Take 2.5 mg by nebulization 2 (two) times a day. Active famotidine (PEPCID) 40 MG tablet Take 40 mg by mouth daily. 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 2022 Atrial fibrillation 05/29/2022 Bipolar disorder 10/06/2018 Chronic obstructive lung disease 07/22/2016 Glaucoma 07/22/2016 Encounters Date Type Department Care Team Description 02/16/2025 11:00 AM EDT Office Visit [facility] Rad Onc [address] [place] [address] Arnel Carson MD Miranda-Leon, [place] Malignant neoplasm of rectum (Primary Dx) 01/27/2025 Ancillary Orders [facility] [address] [place] [address] Unknown, MD Tammy 01/26/2025 Ancillary Orders [facility] [address] [place] [address] Unknown, UnknownMD 01/20/2025 - 01/20/2025 11:59 PM EDT Hospital Encounter [facility] [address] [place] [address] Unknown, Unknown, MD Discharge Disposition: Home or Self Care 01/19/2025 - 01/19/2025 11:59 PM EDT Hospital Encounter [facility] [address] [place] [address] Unknown, Unknown, MD Discharge Disposition: Home or Self Care from Last 3 Months Family History Medical History Relation Comments Cancer Brother 1 Colon Cancer Brother 2 Leukemia Cancer Paternal Aunt Colon Cancer Paternal Grandfather Colon Relation Status Comments Brother 1 Alive Brother 2 Alive Father Mother Paternal Aunt Alive Paternal Grandfather Social History Tobacco Use Types Packs/Day Years [...] on file Sexual Orientation Not on file Last Filed Vital Signs Vital Sign Reading [...] - - Body Mass Index - - Plan of Treatment Upcoming Encounters Date Type Department Care Team (Late st Contact Info) Description 03/30/2025 10:15 AM EDT Office Visit [facility] [address] [facility] 3rd Floor, [address] [place], [place] [phone] Fransisco Nguyen DO [address] [facility] [address] [place] [address] [email or web address] Due Date Last Done Comments CREATININE LEVEL 1955 DEPRESSION SCREENING 1966 SMOKING Hx and SMOKELESS TOB ACCO SCREENING 1967 HEPATITIS C SCREENING 1972 ZOSTER VACCINES (1 of 2) 1973 COLOGUARD 1999 COLONOSCOPY 1999 COLORECTAL CANCER SCREENING 1999 FIT TEST 1999 FOBT 1999 SIGMOIDOSCOPY 1999 VIRTUAL COLONOSCOPY 1999 RSV VACCINE (1 - Risk 60-74 years 1-dose series) 2014 ABDOMINAL AORTIC ANEURYSM (A AA) SCREENING 2019 PNEUMOCOCCAL VACCINES (50+ y ears) (2 of 2 - PCV) 03/21/2021 03/21/2020 Adult Td,Tdap Booster 02/25/2023 02/25/2013 COVID-19 VACCINE ( - 2023-2 5 season) 2024 INFLUENZA VACCINE (#1) 2025 LIPID PANEL 03/23/2026 03/23/2021 HEPATITIS A VACCINES Aged Out No long [...] Months Insurance MEDICARE PART A & B Member Subscriber Plan / Payer (Ef fective 2019-Present) Name:Avery Ware Member ID:[id number] Relation to Subscriber:Self Name:Avery Ware Subscriber ID:[id number] Payer ID:[id number] Group ID:Not on file Type:Medicare Address: [facility] Attention Point [facility] [address] [place] [phone] [facility] MEDICARE PART A & B HEALTH MEDICARE PART A & B HEALTH MEDICARE PART A & B [facility] MEDICARE PART A & B [place] [id number] MEDICARE PART A & B [place] Care Teams Automation Application Engineer Relationship Specialty Start Date End Date Rigoberto Madrigal MD [address] [place] [address] [address] [place] [phone] PCP - General Internal Medicine 01/26/25 Yulisa Haynes MD [address] [place] [phone] [email or web address] Oncology 02/16/25 Don Gonzales MD [address] [place] [address] [place] [address] General Surgery 02/16/25 Additional Source Comments The information contained in this document represents components of the legal health record. It is not the complete legal health record.[facility]
--- OUTSIDE RECORDS SUMMARY | 2025-02-17 10:51 | XMS_ITS | Encounter Summary ---
Author Organization [employer] Address [address] [place] [address] [address] [place] [address] Care Team Providers Care Building Equipment Operator Name Role Phone Rigoberto Us MD Primary Care Provide r September Unavailable Encounter Details Date Type Department Care Team ([facility] Contact Info) Description 09/14/2024 Orders Only [facility] [address] [place], [place] [phone] Provider, MD [place] Social History Tobacco Use [...] AM EDT Narrative 09/30/2024 9:36 AM EDT [place] [address] [address] Scan Report Signed Patient: Avery Ware MR#: [id number] : 1955 Acct:[id number] Age/Sex: 69 / M ADM Date: 09/30/24 Loc: HO.CT Attending Dr: Layton Sterling MD Ordering Physician: Layton Sterling MD Date of Service: 09/30/24 Procedure(s): CT chest wo IV con Accession Number(s): [id number] cc: Rigoberto Madrigal MD; Layton Sterling MD Report Number: [id number]: Total DLP = 146.00 mGy-cm EXAMINATION: CT [...] reconstruction technique. DLP: 146 mGy centimeter. FINDINGS: STENCIL PRINTER: Volume loss, right lung. Cardiomediastinal structures towards [...] 09:33 AM EDT RP Dictated By: Samuel aCldwell MD Signed By: <Electronically signed by Samuel Garcia MD in OV> 09/30/24 0933 DD/ TD/TT: 09/30/24 0845 Application Developer Manager: Procedure Note Donotuseinterpreter, Image - 09/30/[address] [place] [address] [address] Scan Report Signed Patient: Nury Ware#: [id number] : 4Acct:[id number] Age/Sex: 69 / MADM Date: 09/30/24 Loc: HO.CT Attending Dr: Layton Sterling MD Ordering Physician: Layton Sterling MD Date of Service: 09/30/24 Procedure(s): CT chest wo IV con Accession Number(s): [id number] cc: Rigoberto Madrigal MD; Layton Sterling MD Report Number: [id number]: Total DLP = 146.00 mGy-cm EXAMINATION: CT [...] reconstruction technique. DLP: 146 mGy centimeter. FINDINGS: STENCIL PRINTER: Volume loss, right lung. Cardiomediastinal structures towards [...] 09/30/24 0933 DD/ 0837 TD/TT: 09/30/24 0845 Application Developer Manager: [facility] External Provider IMG CT PROCEDURES Final Result * PET/CT Bone Skull Base to Mid Thigh (08/15/2024 11:35 AM EST) Anatomical Region Laterality Modality Body Computed Tomogra phy Historical Provider MD KNAPP CT PROCEDURES Final R esult documented in this encounter Visit Diagnoses Not on filedocumented in this encounter Additional Health Concerns Assessment Noted Time PHQ-9 Depression Total Score: 8 08/26/19 24 11:49 AM EST documented as of this encounter Care Teams Building Equipment Operator Relationship Specialty Start Date End Date Rigoberto Us MD [address] [place] [id number] PCP - General Internal Medicine 03/30/[address] [place] [address] Gastroenterology 09/09/24 documented as of this encounter
== END 2025-02-17 10:09 | disposition home or self-care (01) ==
LOC: HO.HGI 09:43
PROVIDERS: PCP Nurse Practitioner Family; Visit Provider Nurse Practitioner
DX: R19.7 Diarrhea, unspecified (principal); K59.04 Chronic idiopathic constipation; K62.3 Rectal prolapse; K22.10 Ulcer of esophagus without bleeding
CPT/HCPCS: 99213

== ENCOUNTER → 2025-02-17 09:42 | Outpatient (BNVA) | payer MEDICARE, MEDICAID, SELFPAY | PROVIDERS: PCP Nurse Practitioner Family; Visit Provider Nurse Practitioner | DX: K59.04 Chronic idiopathic constipation (principal); K62.3 Rectal prolapse; K22.10 Ulcer of esophagus without bleeding; R19.7 Diarrhea, unspecified | CPT/HCPCS: 99212 ==

== ENCOUNTER 2025-03-10 14:34 | Outpatient (REF) | payer MEDICARE, MEDICAID, SELFPAY | END 2025-03-10 14:35 | disposition home or self-care (01) | LOC: HO.LAB 14:34 | PROVIDERS: PCP Nurse Practitioner Family; Visit Provider Nurse Practitioner Family | DX: N40.0 Benign prostatic hyperplasia without lower urinary tract symptoms (principal); R31.29 Other microscopic hematuria; N50.819 Testicular pain, unspecified; N52.9 Male erectile dysfunction, unspecified; I10 Essential (primary) hypertension; Z79.899 Other long term (current) drug therapy; Z87.891 Personal history of nicotine dependence | CPT/HCPCS: 81003; 88112; 99212 ==

== ENCOUNTER 2025-03-10 14:34 | Outpatient (AMB) | payer MEDICARE, MEDICAID, SELFPAY ==
--- NOTE | 2025-03-10 14:35 | MHC.OFFVIS ---
Intake Visit Reasons: labs/scrotal pain/ testicle assesment Intake Note: Patient is present for LABS/SCROTAL PAIN/TESTICLE ASSESMENT Urology Medication:NONE Antibiotic Allergy:NONE Blood Thinner:APIXABAN Dance Critic Required: No Allergies No Known Allergies (No Known Allergies*) Allergy (Verified 03/10/25 14:38) [facility] Medical History Rectal adenocarcinoma Diarrhea GERD (gastroesophageal reflux disease) Compression fracture of body of thoracic vertebra Oxygen dependent Asthma On anticoagulant therapy CHF (congestive heart failure) History of home oxygen therapy Pulmonary nodule SOB (shortness of breath) Dyslipidemia Alcohol abuse PVD (peripheral vascular disease) Rectal polyp Calyceal diverticulum Renal cyst Acute exacerbation of emphysema Chronic hypoxemic respiratory failure Nicotine dependence, cigarettes, uncomplicated Compression fracture of T7 vertebra Cervical spondylosis Bilateral tinnitus Ascending aorta dilatation Opacity of lung on imaging study Generalized anxiety disorder Edentulous Bipolar 1 disorder GI bleed Emphysema lung BPH (benign prostatic hyperplasia) Compression fracture of lumbar vertebra Osteoporosis Atrial fibrillation with rapid ventricular response Compression fracture of body of thoracic vertebra History of alcohol abuse Compression fracture of T9 vertebra Nonischemic cardiomyopathy Right clavicle fracture Tubular adenoma of colon COPD (chronic obstructive pulmonary disease) Hyperlipidemia Hematemesis with nausea Dysphagia Systolic dysfunction Depression Hypertension Peptic ulcer disease Surgical History History of rectal polypectomy (12/08/24) Hx of cystoscopy Hx of kyphoplasty History of surgery on left wrist (~03/21/10) Hx of endoscopy Hx of colonoscopy (~02/13/06) Hx of cataract surgery (~07/02/10) History of appendectomy History of gastric surgery Family History Mother Renal failure Father History of depression Brother Colon cancer Acute basophilic leukemia Social History Household Members: Significant Other and None Housing: House Are you a primary rehab care assistant to a significant other at home: No Do you presently have visiting nurse or other home services: Yes ([employer]) Alcohol intake: never Patient Tobacco Use Status: Former Tobacco user Tobacco use type: Cigarette Cigarette Packs Per Day: 0.5 Years Smoked: 55 e-Cigarette/Vaping Use: Former Use Second Hand Smoke Exposure: No Advance Directives Date on File: 09/02/22 service: No Current occupational status: unemployed and disabled 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 Review of Systems Const All systems reviewed & are unremarkable except as noted in HPI and below Physical Exam Const General: cooperative, healthy appearing, comfortable, no acute distress, well developed, alert and awake Orientation/consciousness: patient oriented x3 Limitations: language barrier HEENT Head: Yes normal to inspection Eyes General: appearance normal, both eyes and all related structures Neck Neck: Yes normal visual inspection Chest Chest palpation & inspection: normal inspection of the chest Resp Other: patient 02 dependent via NC Effort & Inspection: normal respiratory effort Cardio Rate: regular rate GI Inspection: Yes normal to inspection General: Yes no CVA tenderness Male General Exam: Yes normal external exam Penis: normal penis and uncircumcised Meatus: meatus normal Scrotum: scrotum normal Testes: Testes normal Back/Spine/Pelvis Back: no CVA tenderness Skin General skin exam: no rashes or lesions noted Neuro General: patient oriented x3 Extrem General: Yes normal to inspection Psych Appearance: grossly normal Speech and movement: Clear speech present Affect: normal affect Attitude: cooperative Thought content: Normal thought content present Insight: Fair insight present (Psych) Judgement: Fair judgement present (Psych) Results AMB Urinalysis, Automated UA Leukoctes 0 Jacinda/uL Last Edit by GUILLERMO Gar on 03/10/25 15:17 UA Nitrite Negative Last Edit by GUILLERMO Gar on 03/10/25 15:17 UA Urobilinogen 0.2 mg/dL Last Edit by GUILLERMO Gar on 03/10/25 15:17 UA Protein 0 mg/dL Last Edit by GUILLERMO Gar on 03/10/25 15:17 UA pH 6.0 Last Edit by GUILLERMO Gar on 03/10/25 15:17 UA Blood 80 Julio/uL Last Edit by GUILLERMO Gar on 03/10/25 15:17 UA Specific Magnolia 1.015 Last Edit by GUILLERMO Gar on 03/10/25 15:17 UA Ketone Negative Last Edit by GUILLERMO Gar on 03/10/25 15:17 UA Bilirubin 0 mg/dL Last Edit by GUILLERMO Gar on 03/10/25 15:17 UA Glucose 0 mg/dL Last Edit by GUILLERMO Gar on 03/10/25 15:17 Results Reviewed Results Reviewed: Laboratory Last Values Urine pH (Auto) 6.0 03/10/25 15:16 Specific [place]olia (Auto) 1.015 03/10/25 15:16 Urine Protein (Auto) 0 mg/dL 03/10/25 15:16 Glucose (UA)(Auto) 0 mg/dL 03/10/25 15:16 Urine Ketones (Auto) Negative 03/10/25 15:16 Urine Blood (Auto) 80 Julio/uL 03/10/25 15:16 Urine Nitrite (Auto) Negative 03/10/25 15:16 Urine Bilirubin (Auto) 0 mg/dL 03/10/25 15:16 Urine Urobilinogen (Auto) 0.2 mg/dL 03/10/25 15:16 Leukocyte Esterase (Auto) 0 Jacinda/uL 03/10/25 15:16 Assessment & Plan Assessment & Plan (1) Microscopic hematuria: Code(s): R31.29 - Other microscopic hematuria Category: Medical (2) BPH (benign prostatic hyperplasia): Code(s): N40.0 - Benign prostatic hyperplasia without lower urinary tract symptoms Category: Medical (3) Testicular pain: Code(s): N50.819 - Testicular pain, unspecified Category: Medical (4) Erectile dysfunction: Code(s): N52.9 - Male erectile dysfunction, unspecified Category: Medical Plan In office urinalysis results reviewed with the patient today; as noted above; will send for urine cytology. We did discussed potential causes of testicular pain patient is experiencing. We also discussed lifestyle modifications to assist with ED as well as further treatment options and risks and benefits of these treatment options. Start low-dose Cialis as discussed and prescribed. He currently denies any bothersome urinary issues or concerns. He reports be happy with current voiding parameters. Orders: Orders AMB Urinalysis Automated 03/10/25 Z13.9 - Encounter for screening, unspecified Urine Cytology 03/10/25 R31.29 - Other microscopic hematuria Medications: New tadalafil (Cialis) [id number] [facility] GroupGDRX Member [id number] 5 mg PO DAILY 90 tabs 1RF 90 days Patient Instructions: The patient had an opportunity to ask questions regarding the treatment plan. All questions were answered. Physical exam, labs, and imaging were discussed and reviewed in detail. As well as risks, benefits, and discussion of treatment choices. No major barriers to understanding were identified. The patient expressed understanding and agreement with the above treatment plan. The patient was made aware they should contact our office by phone for worsening of their current condition, the appearance of new symptoms, or with any questions or concerns. Compliance is encouraged with any medications and follow up testing that is ordered. It is a privilege to be allowed the opportunity to participate in? your urological care.? Again, if you have any questions or concerns If you have any questions or concerns please do not hesitate to contact me. The office is [phone]. This note is constructed using voice recognition software. While every effort has been made to ensure accuracy clinical administrative coordinator errors may have been included. Yours sincerely, Pearl Whiting, [employer] Coding Diagnoses Microscopic hematuria R31.29 BPH (benign prostatic hyperplasia) N40.0 Testicular pain N50.819 Erectile dysfunction N52.9
--- OUTSIDE RECORDS SUMMARY | 2025-03-10 16:20 | XMS_ITS | Clinical Summary ---
Author Organization [employer] Address [address] [facility] [address] [place] [address] Care Team Providers Care Senior Adults Director Name Role Phone Rigoberto Us MD Primary [...] mild pain. 90 tablet 3 4 Active Ascorbic Acid (vitamin C) 250 MG tablet TAKE 1 TABLET(250 MG) BY MOUTH IN THE MORNING 90 tablet 1 5 Active simvastatin (Zocor) 20 MG tablet TAKE 1 TABLET BY MOUTH EVERY DAY IN THE EVENING 90 tablet 5 Active ferrous gluconate (Fergon) 324 (38 Fe) MG tablet TAKE 1 TABLET(324 MG) BY MOUTH WITH BREAKFAST 90 tablet 5 Active Active Problems Problem [...] Pt here for a HDF Admitted [place] [facility] [place]12[place]16[place]2023 after he presented [...] PM EST): S/P kyphoplasty by IR at [facility] [place]/20/2022 For pain control I have prescribed Oxycodone Diagnostic work up for secondary causes of osteoporosis unrevealing He is on Calcium and Vitamin D On Tymlos Evaluated by Endocrinology , last seen 05/18/2024. Assessment & Plan (12/02/2023 10:17 AM EDT): S/P kyphoplasty by IR at [facility] 09/20/2022 For pain control I have prescribed Oxycodone Diagnostic work up for secondary causes of osteoporosis unrevealing He is on Calcium and Vitamin D On Tymlos Evaluated by Endocrinology , last seen 08/14/2023 has a follow up in January Assessment & Plan (08/26/2023 11:31 AM EST): S/P kyphoplasty by IR at [facility] [place]/20/2022 For pain control I have prescribed Oxycodone Diagnostic work up for secondary causes of osteoporosis unrevealing He is on Calcium and Vitamin D On Tymlos Evaluated by Endocrinology , last seen 08/14/2023 Assessment & Plan (02/04/2023 11:43 AM EDT): S/P kyphoplasty by IR at [facility] 09/20/2022 For pain control I [...] and facet arthritis pt already following w kiln remover receiving Tymlos (abaloparatide)-states was not receiving lately x issues with pharmacy but to resume now -pt takes med to kiln remover for med administration -advised to continue w [...] PM EDT): S/P kyphoplasty by IR at [facility] 09/20/2022 For pain control I have prescribed Oxycodone but he stopped taking it Today he describes his pain at 7/10 when severe 10/10 Diagnostic work up for secondary causes of osteoporosis unrevealing He is on Calcium and Vitamin D Started on Tymlos, followed by Endocrinology Seen at [facility] On 03/19/23: Kyphon Balloon Kyphoplasty with Insertion of HV-R Bone Cement, L1 and L2 Vertebral Bodies: with 80% relief. Last seen at [facility] 10/24/2023 Scheduled for fluoroscopy guided diagnostic left L3-L4 DR L5 medial branch blocks with local anesthetic. Plan: Continue Flexeril and MS Contin 15 mg po BID risk discussed particularly around somnolence , sedation and counseled about fall prevention Assessment & Plan (12/02/2023 10:20 AM EDT): S/P kyphoplasty by IR at [facility] [place]/20/2022 For pain control I have prescribed Oxycodone but he stopped taking it Today he describes his pain at 7/10 when severe 10/10 Diagnostic work up for secondary causes of osteoporosis unrevealing He is on Calcium and Vitamin D Started on Tymlos, followed by Endocrinology Seen at [facility] On 03/19/23: Kyphon Balloon Kyphoplasty with Insertion of HV-R Bone Cement, L1 and L2 Vertebral Bodies: with 80% relief. Last seen at [facility] 10/24/2023 Scheduled for fluoroscopy guided diagnostic left L3-L4 DR L5 medial branch blocks with local anesthetic. Plan: Continue Flexeril Start MS Contin 15 mg po BID risk discussed particularly around somnolence , sedation and counseled about fall prevention Assessment & Plan (04/22/2023 11:28 AM EDT): S/P kyphoplasty by IR at [facility] [place]2022 For pain control I [...] AM EDT): S/P kyphoplasty by IR at [facility] [place]/20/2022 For pain control I [...] Patient is undergoing kyphoplasty by IR at [facility] [place] 09/20/2022 For pain control [...] AM EDT): S/P kyphoplasty by IR at [facility] 09/20/2022 For pain control I [...] for a f/u He was seen by utility specialist at [facility] He tells me he was [...] BID, He was advised to f/u with [employer] Pt reports he is still drinking on [...] for a HDF He presented again to [facility] from 05/30 until 06/01 with [...] Under the care of Moraima Charles at [facility] Assessment & Plan (09/09/2024 2:06 PM EDT): Under the care of Dasia Soni at [facility] Assessment & Plan (12/02/2023 11:34 AM EDT): Under the care of Dasia Soni at [facility] On Seroquel 300 mg po qhs Bupropion and Trazodone 100 mg po qhs per his report Assessment & Plan (04/22/2023 11:41 AM EDT): Under the care of Dasianubia DiazSoni [facility] On Seroquel 300 mg po qhs Bupropion and Trazodone 100 mg po qhs per his report Assessment & Plan (06/04/2022 9:09 AM EST): Under the care of Dasia Soni [facility] On Seroquel 300 mg po [...] EDT): Under the care of Dasia Soni [facility] Seroquel nd Trazodone were discontinued in the Hospital due to prolongued Qtc He is now on Sertraline 25 mg po daily Assessment & Plan (01/08/2024 1:41 PM EDT): Under the care of Dasia Soni [facility] Seroquel nd Trazodone were discontinued in the Hospital due to prolongued Qtc He is now on Sertraline 25 mg po daily Assessment & Plan (12/02/2023 11:36 AM EDT): Under the care of Dasia Soni [facility] On Seroquel 300 mg po qhs Bupropion and Trazodone 100 mg po qhs per his report Assessment & Plan (04/22/2023 11:41 AM EDT): Under the care of Dasia Soni [facility] On Seroquel 300 mg po qhs Bupropion and Trazodone 100 mg po qhs per his report Assessment & Plan (06/04/2022 9:09 AM EST): Under the care of Dasia Soni [facility] Tubular adenoma of colon 03/10/2018 [...] going into A.fib Pt was cleared by [employer] Claim [employer]er 06/01 and is awaiting GI appointment for [...] A.fib Pt has now been cleared by [employer] 06/01 and is awaiting GI appointment for [...] of Trelegy and Ventolin Dr Pisano his web site administrator mentioned in a previous note that patient [...] of Trelegy and Ventolin Dr Pisano his web site administrator mentioned in a previous note that patient [...] scarring related to pneumonia Dr Pisano his web site administrator mentioned in a previous note that patient [...] or inflammatory scarring related to pneumonia Dr Psiano his web site administrator mentioned in a previous note that patient [...] Pt was seen by Dr Pisano his web site administrator 08/2022 he mentioned in his note that [...] Pt was seen by Dr Pisano his web site administrator 08/2022 he mentioned in his note that patient underwent a bronchoscopy that was negative for malignancy Assessment & Plan (09/20/2022 5:02 PM EDT): Patient is here for a follow up after a recent Hospitalization He is under the care of Pulmonology Dr. Layton Sterlign Currently on a regimen of Trelegy and Ventolin Chest CT 04/05/2022 showed:Severe emphysema. New 0.8 x 1.8 cm irregularly-shaped spiculated parenchymal density in the right lower lobe adjacent to the diaphragmatic pleural surface. This may represent post infectious or inflammatory scarring related to pneumonia Pt was seen by Dr Pisano his web site administrator 08/2022 he mentioned in his note that [...] Pt was seen by Dr Pisano his web site administrator 05/21/2022 who recommended a repeat Chest CT [...] Encounters Date Type Department Care Team Description 02/18/[address] [address] Rigoberto Us MD Appointment Confirmation 02/07/[address] [address] Rigoberto Us MD 01/11/2025 3:00 PM EDT Office Visit [address] [address] Rigoberto Us MD Rectal adenocarcinoma (CMS/HCC) (Primary Dx); Bipolar affective disorder, remission status unspecified (CMS/HCC); Microscopic hematuria 01/11/2025 Travel 01/10/[address] [address] Rigoberto Us MD chart prep 01/06/2025 Orders Only GENERIC EXTERNAL DATA DEPARTMENT Provider, Generic External Data 01/04/2025 Patient Outreach [facility] [address] [place], [place] [phone] Rigoberto Us MD Pre-visit Planning (SDOH negative. Tobacco screening negative.) 12/23/2024 Results Follow-Up [address] [address] Deim Garcia, baker head to General Surgery 12/09/2024 Orders Only GENERIC EXTERNAL DATA DEPARTMENT Provider, Generic External Data from Last 3 Months Immunizations Immunization Administration [...] 01/11/2025 2:49 PM EDT Plan of Treatment Upcoming Encounters Date Type Department Care Team (Late st Contact Info) Description 05/03/2025 11:15 AM EST Office Visit [facility] [address] [place] [address] Rigoberto Us MD [address] [place] [address] Health Maintenance Due Date Last Done Comments CT Colonography 1955 FIT DNA/Cologuard 1955 FIT 1955 FOBT 1955 Sigmoidoscopy 1955 Hepatitis C Screening 1972 DTaP/Tdap/Td Vaccines (2 - Td or Tdap) 02/25/2023 02/25/2013, 04/26/1996 Depression Screening 08/25/2024 08/26/2023, 08/26/19 COVID-19 Vaccine ( season) 2025 07/21/2023, 07/26/2022, 05/16/2021, Additional history exists Influenza Vaccine (#1) 2025 , 07/21/2023, 06/04/2022, [...] EOSIN STAIN Routine 12/09/2024 11:38 AM EDT HM COLONOSCOPY Routine 04/23/2024 LIPID PANEL, STANDARD Routine 03/23/2021 9:05 AM EDT from Last 3 Months or Most Recently Relevant to Health Maintenance Results * MR Pelvis w/ and w/o Contrast (01/19/2025 3:07 PM EDT) Anatomical Region Laterality Modality Body, Pelvis Magnetic Resonan ce 01/19/2025 3:07 PM EDT Narrative 01/20/2025 3:07 PM EDT [address] [address] Magnetic Resonance Report Signed Patient: Avery Ware MR#: [id number] : 1955 Acct:[id number] Age/Sex: 69 / M ADM Date: 01/19/25 Loc: HO.MRI Attending Dr: Yulisa Haynes MD Ordering Physician: Yulisa Haynes MD Date of Service: 01/19/25 Procedure(s): MR pelvis wo/w con Accession Number(s): [id number] cc: Yulisa Haynes MD; Rigoberto Madrigal MD [...] is mural thickening involving the posterior half [place] rectal wall with wall thickening [...] Wil Delgado MD 01/20/2025 03:05 PM EDT Dictated By: Wil Delgado MD Signed By: <Electronically signed by Wil Delgado MD in OV> 01/20/25 1505 DD/ 1507 TD/TT: 01/19/25 1534 Deputy Editor In Chief: JESSIE Procedure Note Donotuseinterpreter, Image - 01/20/2025 [place] [address] Magnetic Resonance Report Signed Patient: Avery WareMR#: [id number] : 4Acct:[id number] Age/Sex: 69 / MADM Date: 01/19/25 Loc: HO.MRI Attending Dr: Yulisa Haynes MD Ordering Physician: Yulisa Haynes MD Date of Service: 01/19/25 Procedure(s): MR pelvis wo/w con Accession Number(s): [id number] cc: Yulisa Haynes MD; Rigoberto Madrigal MD [...] is mural thickening involving the posterior half [place] rectal wall with wall thickening [...] Wil Delgado MD 01/20/2025 03:05 PM EDT Dictated By: Wil Delgado MD Signed By: <Electronically signed by Wil Delgado MD in OV> 01/20/25 1505 DD/ 1507 TD/TT: 01/19/25 1534 Deputy Editor In Chief: JESSIE [facility] External Provider IMG MRI PROCEDURES Final Result * PSA, Total With Reflex to PSA, Free (01/06/2025 9:52 AM EDT) PSA,Total (Free>4and<10) 0.46 0.00 - 4.00 ng/mL [facility] Comment:A Free PSA was not [...] are between 4.0 and 10.0 ng/mL.PSA methodology: Davis Alinity i ChemiluminescentMicroparticle Immunoassay (CMIA) 01/06/2025 9:52 AM EDT 01/06/2025 9:52 AM EDT us Generic External Data Provider LAB BLOOD ORDERAB LES Final Result [facility] [address] [place], [place] [phone] * (ABNORMAL) CBC auto differential (01/06/2025 9:52 AM EDT) White Blood Count 8.8 4.8 - 10.8 X10*3/uL [facility] Red Blood Count 5.11 4.60 - 5.80 X10*6/uL [facility] Hemoglobin 15.6 14.0 - 18.0 g/dl [facility] Hematocrit 46.7 42.0 - 52.0 % [facility] Mean Corpuscular Volume 91.4 80.0 - 98.0 fL [facility] Mean Corpuscular Hemoglobin 30.5 27.0 - 33.0 pg [facility] Mean Corpuscular HGB Conc 33.4 31.0 - 36.0 g/dl [facility] Red Cell Distribution Width 12.9 11.0 - 16.0 % [facility] Platelet Count 206 160 - 400 X10*3/uL [facility] Mean Platelet Volume 9.7 9.4 - 12.4 fL [facility] Neutrophils Percent Auto 80.9(H) 45 - 73 % [facility] Imm Gran Pct Auto 0.3 0.0 - 0.4 % [facility] Lymphocytes Percent Auto 12.5(L) 20 - 40 % [facility] Monocytes Percent Auto 5.2 2 - 11 % [facility] Eosinophils Percent Auto 0.8 0 - 4 % [facility] Basophils Percent Auto 0.3 0 - 2 % [facility] NRBC Pct Auto 0.0 0.0 - 0.2 /100WBC [facility] Neutrophils Absolute Auto 7.1 2.0 - 8.3 x10*3/uL [facility] Imm Gran Abs Auto 0.03 0.00 - 0.03 X10*3/uL [facility] Lymphocytes Absolute Auto 1.1(L) 1.2 - 4.9 X10*3/uL [facility] Monocytes Absolute Auto 0.5 0.1 - 1.2 X10*3/uL [facility] Eosinophils Absolute Auto 0.1 0.0 - 0.4 X10*3/uL [facility] Basophils Absolute Auto 0.0 0.0 - 0.2 X10*3/uL [facility] NRBC Abs Auto 0.000 0.0 - 0.012 X10*3/uL [facility] Blood Venous blood specimen / Unknown 01/06/2025 9:52 AM EDT 01/06/2025 9:52 AM EDT [email or web address] [facility] LAB BLOOD ORDERABLES Final Res ult Performing Organization Address [facility] [address]/ZIP Co de Phone Number [facility] [address] [place] [phone] * Iron And Total Iron Binding Capacity (01/06/2025 9:52 AM EDT) Iron 96 45 - 160 mcg/dL [facility] Total Iron Binding Capacity 259 228 - 428 mcg/dL [facility] Percent Iron Saturation 37 15 - 50 % [facility] Unsaturated Iron Binding 163 ug/dL [facility] Blood Venous blood specimen / Unknown 01/06/2025 9:52 AM EDT 01/06/2025 9:52 AM EDT Sel[facility] LAB BLOOD ORDERABLES Final Res ult Performing Organization Address [facility] [address]/ZIP Co de Phone Number [facility] [address] [place] [address] [phone] * Testosterone, Free (Dialysis) And Total, MS (01/06/2025 9:52 AM EDT) Testosterone, Total 356 250 - 1100 ng/dL [facility] Comment:Men with clinically significant hypogonadalsymptoms and testosterone values repeatedly inthe range of the 200-300 ng/dL or less, maybenefit from testosterone treatment afteradequate risk and benefits counseling.For additional information, please refer tohttp://education.T[employer]/faq/EkqsbLbbhnktcijdjUDGCSZAIN724(This link is being provided for informational/educational purposes only.)This test was developed and its analytical performancecharacteristics have been determined by [employer] [place], [place]. It hasnot been cleared or approved by the U.S. Food and DrugAdministration. This assay has been validated pursuantto the CLIA regulations and is used for clinicalpurposes. Testosterone, Free 35.6 30.0 - 135.0 pg/mL [facility] Comment:This test was develo ped and its analytical performancecharacteristics have been determined by [employer] [place], [place]. It hasnot been cleared or approved by the U.S. Food and DrugAdministration. This assay has been validated pursuantto the CLIA regulations and is used for clinicalpurposes.THIS TEST WAS PERFORMED AT:[employer] [id number] [place] [address]ZAIADABMELVIN RUBIO MD,PHD 01/06/2025 9:52 AM EDT 01/06/2025 9:52 AM EDT us Generic External Data Provider LAB BLOOD ORDERAB LES Final Result [facility] [address] [place] [phone] * (ABNORMAL) Comprehensive Metabolic Panel (01/06/2025 9:52 AM EDT) Sodium 142 135 - 145 mmol/L [facility] Potassium 3.5 3.3 - 5.1 mmol/L [facility] Chloride 108 96 - 108 mmol/L [facility] Carbon Dioxide 27 22 - 29 mmol/L [facility] Anion Gap 11(L) 12 - 20 [facility] Urea Nitrogen (BUN) 11 9 - 16 mg/dL [facility] Creatinine, Serum 0.78 0.5 - 1.4 mg/dL [facility] Estimated Glomerular Filt Rate >60 [facility] Comment:Chronic Kidney Disea se: Estimated GFR < 60 mL/min/1.48x7Nzygdn Kidney Disease: Estimated GFR < 15 mL/min/1.73m2 Glucose 97 60 - 115 mg/dL [facility] Calcium 8.6 8.4 - 10.2 mg/dL [facility] Bilirubin, Total 0.7 0.0 - 1.0 mg/dL [facility] Aspartate Amino Transferase 16 5 - 37 U/L [facility] Alanine Aminotransferase 18 0 - 40 U/L [facility] Total Protein 7.4 6.5 - 8.0 g/dL [facility] Albumin Level 4.1 3.5 - 5.0 g/dL [facility] Alkaline Phosphatase 62 39 - 117 U/L [facility] Blood Venous blood specimen / Unknown 01/06/2025 9:52 AM EDT 01/06/2025 9:52 AM EDT Milena Lopez [facility] LAB BLOOD ORDERABLES Final Res ult [facility] [address] [place] [phone] * Referral to General Surgery (12/22/2024) [facility]IENT REFERRAL ORDER YULISA Final Result * Hematoxylin and Eosin Stain (12/09/2024 11:38 AM EDT) 12/09/2024 11:3 8 AM EDT 12/09/2024 12:00 PM EDT Narrative [facility] - 02/23/2025 8:56 AM EDT ----- ------- Name: Avery Ware Age/Sex: 69/M : 1955 [id number]#: [id number] Attend Dr: Don Gonzales MD Re12/09/24 Status: [facility] Location: [facility] Disch: ----- ------- SPEC : [id number] RECD: 12/09/24-1199 STATUS: AUDRA TATUM NUM: [id number] FRANCOIS: 12/09/24-[address] [facility] DR: Don Gonzales MD ENTERED: 12/09/24-1212 SP TYPE: Surgical OTHR DR: Milena Lopez [facility] ORDERED: HE Stain/3, Gross Micro L4 THIS IS A CORRECTED REPORT 02/23/25 This is a corrected report. Any previous versions are stored internally and are available if necessary. Diagnosis Anal polyp, transanal excision: -Invasive adenocarcinoma, [...] Lymphatic and/or vascular invasion: Present Perineural invasion: Prewsent Margins, invasive carcinoma: Deep: Distance from deep [...] (AJCC V 9) Ancillary studies: Previous biopsy ([id number]) reported Stain results which were negative for mismatch repair defect/ Dunn Syndrome-related lesion, and positive CDX2. CONTINUED ON NEXT PAGE ----- ------- Name: Hiro DiazAvery mcintyre Age/Sex: 69/M : 1955 Unit#: [id number] Attend Dr: Don Gonzales MD Re12/09/24 Status: [facility] Location: [facility] Disch: ----- ------- SPEC : [id number] RECD: 12/09/24-1199 STATUS: AUDRA TATUM NUM: [id number] FRANCOIS: 12/09/24-[address] [facility] DR: Don Gonzales MD ENTERED: 12/09/24-1212 SP TYPE: Surgical OTHR DR: Milena LopezP ORDERED: HE Stain/3, Gross Micro L4 Note: Data synoptic report corrected for perineural invasion: Not identified changed to Present. The diagnosis and stage are unchanged; no other changes. Clinical History Rectal polyp Additional history: Rectal polyp with fragments of high-grade dysplasia/intramucosal adenocarcinoma arising within adenoma ([id number]). Microscopic Description Microscopic sections show infiltration of [...] developed and their performance characteristics determined by [facility]. They have not been cleared or approved by the U.S. Food and Drug Administration (FDA). However, the FDA has determined that such clearance or approval is not necessary. This laboratory is certified under the Clinical Laboratory Improvement Amendments of 1988 (CLIA) as qualified CONTINUED ON NEXT PAGE ----- ------- Name: Hiro DiazmiguelinaAvery Age/Sex: 69/M : 1955 Unit#: [id number] Attend Dr: Don Gonzales MD Re12/09/24 Status: [facility] Location: [facility] Disch: ----- ------- SPEC : [id number] RECD: 12/09/24 STATUS: AUDRA TATUM NUM: [id number] FRANCOIS: 12/09/[address]: Don Gonzales MD ENTERED: 12/09/24-1212 SP TYPE: Surgical OTHR DR: Milena Lopez ORDERED: HE Stain/3, Gross Micro L4 IHC S/NG Disclaimer (Continued) to perform high complexity clinical laboratory testing. Copies To: Don Gonzales MD [facility] Sur[facility] [address] [place], [place] [phone] Milena Lopez [address] [phone] ----- ------- Signed (signature on file) Nicole Chavis 02/23/25 0856 ----- ------- END OF REPORT us Generic External Data Provider LAB BLOOD ORDERAB LES Final Result [facility] [address] [place], [place] [phone] * Colonoscopy (04/23/2024) Colonoscopy Normal Normal [...] factors. LDL-C is now calculated using the Félix calculation, which is a validated novel method providing better accuracy than the Friedewald equation in the estimation of LDL-C. Rodolfo SS et al. OLIVIER. 2013;310(19): 4304-5613 (http://education.Applico.com/faq/LTX117) Non-HDL Cholesterol 100 <130 mg/dL (calc) [facility] Comment: For patients with diabetes plus 1 major ASCVD risk factor, treating to a non-HDL-C goal of <100 mg/dL (LDL-C of <70 mg/dL) is considered a therapeutic option. Triglycerides 78 <150 mg/dL [facility] 03/23/2021 9:05 AM EDT Rigoberto Ramirez MD LAB BLOOD ORDERABLES Final Result [facility] [address] from Last 3 Months or Most Recently Relevant to Health Maintenance Insurance [facility] STANDARD MEDICARE Care Teams Senior Adults Director Relationship Specialty Start Date End Date Rigoberto Us MD [address] [place] [phone] PCP - General Internal Medicine 03/30/18September [address] [place] [address] 3rd [place] [address] Gastroenterology 09/09/24
--- OUTSIDE RECORDS SUMMARY | 2025-03-10 16:20 | XMS_ITS | Encounter Summary ---
Author Organization [employer] Address [address] [facility] [address] [place] [address] Care Team Providers Care Pharmacy Assistant Name Role Phone Rigoberto Us MD Primary Care Provide r Timothy Broussard RN Unavailable September Unavailable Reason for Visit * Reason Onset Date Comments Call Back Request 01/22/2024 Encounter Details Date Type Department Care Team ([facility] st Contact Info) Description 01/22/2024 Telephone [facility] MEDICINE [address] [place], [place] [phone] Rigoberto Us MD [address] [place], [place] [phone] Call Back Request Social History Tobacco Use [...] a call back in order to r/s ON SITE SERVICES SPECIALIST appt. Please contact at [phone] documented in this encounter Plan of Treatment Upcoming Encounters Date Type Department Care Team (Late st Contact Info) Description 05/03/2025 11:15 AM EST Office Visit [facility] MEDICINE [address] [place] [phone] Rigoberto Us MD [address] [place] [phone] documented as of this encounter Visit Diagnoses Not on filedocumented in this encounter Additional Health Concerns Assessment Noted Time PHQ-9 Depression Total Score: 8 08/26/19 24 11:49 AM EST documented as of this encounter Care Teams Pharmacy Assistant Relationship Specialty Start Date End Date Rigoberto Us MD [address] [place] [phone] PCP - General Internal Medicine 03/30/18 Timothy Broussard RN [address] [place] [phone] [employer] [facility] TechnicianIt Account Manager 12/26/23 04/07/[address] [place] [address] 3rd [place] [address] Gastroenterology 09/09/24 documented as of this encounter
--- OUTSIDE RECORDS SUMMARY | 2025-03-10 16:20 | XMS_ITS | Encounter Summary ---
Author Organization [employer] Address 75 [facility] 7t [place] [address] Care Team Providers Care Community Health Counselor Name Role Phone Rigoberto Us MD Primary Care Provide r Timothy Broussard RN Unavailable [phone] September Unavailable Reason for Visit * Reason Onset Date Comments Lab Orders 08/30/2022 Encounter Details Date Type Department Care Team (Late st Contact Info) Description 08/30/2022 Telephone [facility] MED[facility]INE [address] [place] [address] Rigoberto Us MD 230 [place], [place] [phone] Lab Orders Social History Tobacco Use Types [...] - 08/30/2022 11:19 AM EST Tc from [facility] nurse requesting an order for a lumbar spine for pt documented in this encounter Plan of Treatment Upcoming Encounters Date Type Department Care Team (Late st Contact Info) Description 05/03/2025 11:15 AM EST Office Visit [facility] [address] [place] [address] Rigoberto Us MD [address] [place] [phone] documented as of this encounter Visit Diagnoses Not on filedocumented in this encounter Care Teams Community Health Counselor Relationship Specialty Start Date End Date Rigoberto Us MD 230 [place] [address] PCP - General Internal Medicine 03/30/18 Timothy Broussard RN [address] [place] [phone] Cell Efficiency SupervisorEight Arm Operator 12/26/23 04/07/[address] [place] [address] Drive 3rd [place] [address] Gastroenterology 09/09/24 documented as of this encounter
--- OUTSIDE RECORDS SUMMARY | 2025-03-10 16:20 | XMS_ITS | Encounter Summary ---
Author Organization [employer] Address 75 [facility] 7t [place] [address] Care Team Providers Care Dance Master Name Role Phone Rigoberto Us MD Primary Care Provide r Timothy Broussard RN Unavailable [phone] September Unavailable Encounter Details Date Type Department Care Team (Latest Contact Info) Description 10/12/2020 Abstract [facility] CONVERSIONS Dental, Provider, DDS Social History [...] Upcoming Encounters Date Type Department Care Team ( st Contact Info) Description 05/03/2025 11:15 AM EST Office Visit [facility] MEDICINE 230 [place] [address] Rigoberto Us MD 230 [place] [address] documented as of this encounter Visit Diagnoses Not on filedocumented in this encounter Care Teams Dance Master Relationship Specialty Start Date End Date Rigoberto Us MD 230 [place] [address] PCP - General Internal Medicine 03/30/18 Timothy Broussard, GIANNA [address] [place] [address] Heat Treat OperatorValver 12/26/23 04/07/[address] [place] [address] 3rd [place] [address] Gastroenterology 09/09/24 documented as of this encounter
--- OUTSIDE RECORDS SUMMARY | 2025-03-10 16:20 | XMS_ITS | Encounter Summary ---
Author Organization [employer] Address 75 [facility] 7t [place] [address] Care Team Providers Care Elevator Constructor Hydraulic Name Role Phone Rigoberto Us MD Primary Care Provide r Timothy Broussard RN Unavailable [phone] September Unavailable Encounter Details Date Type Department Care Team (Late Contact Info) Description 10/31/2022 Abstract [facility] MEDICINE [address] [place] [address] Rigoberto Us MD [address] [place] [address] [phone] Social History Tobacco Use Types Packs/Day Years [...] Encounters Date Type Department Care Team (Late Contact Info) Description 05/03/2025 11:15 AM EST Office Visit [facility] MEDICINE [address] [place] [address] [phone] Rigoberto Us MD [address] [place] [address] [phone] documented as of this encounter Visit Diagnoses Not on filedocumented in this encounter Care Teams Elevator Constructor Hydraulic Relationship Specialty Start Date End Date Rigoberto Us MD 230 [place] [address] PCP - General Internal Medicine 03/30/18 Timothy Broussard RN [address] [place] [address] Tankage Grinder OperatorTaxation Economist 12/26/23 04/07/[address] [place] [address] 3rd [place] [address] Gastroenterology 09/09/24 documented as of this encounter
--- OUTSIDE RECORDS SUMMARY | 2025-03-10 16:20 | XMS_ITS | Encounter Summary ---
Author Organization [employer] Address 75 [facility] 7t [place] [address] Care Team Providers Care Retail Buyer Name Role Phone Rigoberto Us MD Primary Care Provide r Timothy Broussard RN Unavailable [phone] September Unavailable Encounter Details Date Type Department Care Team (Late st Contact Info) Description 05/29/2022 Abstract [facility] MEDICINE [address] [place] [address] ProviderElmira MD Social History Tobacco Use Types [...] 11:15 AM EST Office Visit [facility] [address] [place] [address] Rigoberto Us MD [address] [place] [address] [phone] documented as of this encounter Visit Diagnoses Not on filedocumented in this encounter Care Teams Retail Buyer Relationship Specialty Start Date End Date Rigoberto Us MD [address] [place] [address] [phone] PCP - General Internal Medicine 03/30/18 Timothy Broussard RN [address] [place] [address] Melt SuperintendantLead Burner Supervisor 12/26/23 04/07/[address] [place] [address] 3rd [place] [address] Gastroenterology 09/09/24 documented as of this encounter
--- OUTSIDE RECORDS SUMMARY | 2025-03-10 16:20 | XMS_ITS | Encounter Summary ---
Author Organization [employer] Address [address] [facility] [address] 7t [place] [address] Care Team Providers Care Elementary School Science Teacher Name Role Phone Rigoberto Us MD Primary Care Provide r Timothy Broussard RN Unavailable [phone] September Unavailable Reason for Visit * Reason Onset Date Comments Reschedule 01/12/2024 Encounter Details Date Type Department Care Team ([facility] st Contact Info) Description 01/12/2024 Telephone [facility] MEDICINE 230 [place], [place] [phone] Rigoberto Us MD 230 [place], [place] [phone] Reschedule Social History Tobacco Use Types Packs/Day [...] encounter Miscellaneous Notes * Telephone Encounter - Evleyn Avendano - 01/12/2024 10:20 AM EDT Tc from sister calling requesting r/s BOX BLANK MACHINE OPERATOR HELPER appt, she will bring him to the appt however this day shewill be busy. documented in this encounter Plan of Treatment Upcoming Encounters Date Type Department Care Team (Late st Contact Info) Description 05/03/2025 11:15 AM EST Office Visit [facility] MEDICINE 230 [place] [address] Rigoberto Us MD 230 [place] [address] documented as of this encounter Visit Diagnoses Not on filedocumented in this encounter Additional Health Concerns Assessment Noted Time PHQ-9 Depression Total Score: 8 08/26/19 24 11:49 AM EST documented as of this encounter Care Teams Elementary [employer] Science Teacher Relationship Specialty Start Date End Date Rigoberto Us MD [address] [place] [address] PCP - General Internal Medicine 03/30/18 Timothy Broussard RN [address] [place] [address] Voucher ClerkPackaging Sales 12/26/23 04/07/[address] [place] [address] 3rd [place] [address] Gastroenterology 09/09/24 documented as of this encounter
--- OUTSIDE RECORDS SUMMARY | 2025-03-10 16:20 | XMS_ITS | Encounter Summary ---
Author Organization [employer] Address [address] [place] [address] 7t [place] [address] Care Team Providers Care Store Clerk Name Role Phone Rigoberto Us MD Primary Care Provide r September Unavailable Encounter Details Date Type Department Care Team ([facility] Contact Info) Description 09/14/2024 Orders Only [facility] 230 [place], [place] [phone] Provider, MD [place] Social History Tobacco Use [...] Description 05/03/2025 11:15 AM EST Office Visit [facility] MEDICINE 230 [place], [place] [phone] Rigoberto Us MD 230 [place] [address] documented as of this encounter Procedures Procedure [...] AM EDT Narrative 09/30/2024 9:36 AM EDT [address] [address] [address] Scan Report Signed Patient: Avery Ware MR#: [id number] : 1955 Acct:[id number] Age/Sex: 69 / M ADM Date: 09/30/24 Loc: HO.CT Attending Dr: Layton Sterling MD Ordering Physician: Layton Sterling MD Date of Service: 09/30/24 Procedure(s): CT chest wo IV con Accession Number(s): [id number] cc: Rigoberto Madrigal MD; Layton Sterling MD Report Number: [id number]: Total DLP = 146.00 mGy-cm EXAMINATION: CT [...] reconstruction technique. DLP: 146 mGy centimeter. FINDINGS: BANK ACCOUNTANT: Volume loss, right lung. Cardiomediastinal structures towards [...] signed by Samuel Garcia MD in OV> 09/30/2433 DD/ 6 TD/TT: 09/30/2445 Property Assessment Monitor: Procedure Note Donotuseinterpreter, Image - 09/30/[address] [place] [address] [address] Scan Report Signed Patient: Avery WareMR#: [id number] : 1955cct:[id number] Age/Sex: 69 / MADM Date: 09/30/24 Loc: .CT Attending Dr: Layton Sterling MD Ordering Physician: Layton Sterling MD Date of Service: 09/30/24 Procedure(s): CT chest wo IV con Accession Number(s): [id number] cc: Rigoberto Madrigal MD; Layton Sterling MD Report Number: [id number]: Total DLP = 146.00 mGy-cm EXAMINATION: CT [...] reconstruction technique. DLP: 146 mGy centimeter. FINDINGS: BANK ACCOUNTANT: Volume loss, right lung. Cardiomediastinal structures towards [...] Samuel Garcia MDin OV> 09/30/24 0933 DD/ TD/TT: 09/30/2445 Property Assessment Monitor: [facility] External Provider IMG CT PROCEDURES Final Result [...] documented as of this encounter Care Teams Store Clerk Relationship Specialty Start Date End Date Rigoberto Us MD [address] [place] [address] PCP - General Internal Medicine 03/30/[address] [place] [address] 3[address] [place] [address] Gastroenterology 09/09/24 documented as of this encounter
--- OUTSIDE RECORDS SUMMARY | 2025-03-10 16:20 | XMS_ITS | Encounter Summary ---
Author Organization [employer] Address [address] [facility] [address] 7t [place] [address] Care Team Providers Care Pretzel Packer Name Role Phone Rigoberto Us MD Primary Care Provide r Timothy Broussard RN Unavailable [phone] September Unavailable Encounter Details Date Type Department Care Team (Late st Contact Info) Description 10/17/2023 Orders Only [facility] MEDICINE 230 [place] [address] ProviderElmira MD Social History Tobacco Use Types [...] Description 05/03/2025 11:15 AM EST Office Visit [facility] MEDICINE [address] [place] [address] Rigoberto Us MD [address] [place] [address] documented as of this encounter Procedures Procedure [...] documented as of this encounter Care Teams Pretzel Packer Relationship Specialty Start Date End Date Rigoberto Us MD 230 [place] [address] PCP - General Internal Medicine 03/30/18 Timothy Broussard RN [address] [place] [address] Hearing Impaired TeacherHoist Worker 12/26/23 04/07/[address] 3rd [place] [address] Gastroenterology 09/09/24 documented as of this encounter
--- OUTSIDE RECORDS SUMMARY | 2025-03-10 16:20 | XMS_ITS | Encounter Summary ---
Author Organization [employer] Address 75 [facility] 7t [place] [address] Care Team Providers Care Missile And Missile Checkout Technician Name Role Phone Rigoberto Us MD Primary Care Provide r September Reason for Visit * Reason Onset Date Comments Medication Question 05/25/2024 Encounter Details Date Type Department Care Team ([facility] st Contact Info) Description 05/25/[address] [facility] MEDICINE 230 [place], [place] [phone] Rigoberto Us MD 230 [place], [place] [phone] Medication Question Social History Tobacco Use Types [...] he's pain don't go away. Callback number [phone] ([email or web address]) documented in this encounter Plan of Treatment Upcoming Encounters Date Type Department Care Team (Late st Contact Info) Description 05/03/2025 11:15 AM EST Office Visit [facility] [place] [address] Rigoberto Us MD [address] [facility] [place] [address] documented as of this encounter Visit Diagnoses Not on filedocumented in this encounter Additional Health Concerns Assessment Noted Time PHQ-9 Depression Total Score: 8 08/26/19 24 11:49 AM EST documented as of this encounter Care Teams Missile And Missile Checkout Technician Relationship Specialty Start Date End [place] [address] PCP - General Internal Medicine 03/30/18September [address] [place] [address] 3rd [place] [address] Gastroenterology 09/09/24 documented as of this encounter
--- OUTSIDE RECORDS SUMMARY | 2025-03-10 16:20 | XMS_ITS | Encounter Summary ---
Author Organization [facility] Address [address] [place] [address] Phone Care Team Providers Care District Gauger Name Role Phone Rigoberto Madrigal MD Primary Care Provide r Yulisa Haynes MD Unavailable [phone] Don Gonzales MD Unavailable Reason for Visit * Reason Onset Date Comments Medication Refill 03/10/2025 Encounter Details Date Type Department Care Team (Late st Contact Info) Description 03/10/2025 Refill [facility] [address] [facility] 3rd Floor, [address] [place] [address] Tamiko Howard [place] 22 [place] [address] [email or web address] Medication Refill Social History Tobacco Use Types Packs/Day [...] on file documented as of this encounter Plan of Treatment Upcoming Encounters Date Type Department Care Team (Late st Contact Info) Description 03/15/2025 12:00 PM EDT Office Visit [facility] Rad Onc 30 [place] [address] Arnel Carson MD 30 [place] [address] [email or web address] Taras Alfaro [address] [place] [address] 03/30/2025 10:15 AM EDT Office Visit [facility] [address] [place] [address] 3rd [facility], [address] [place] [address] Fransisco Nguyen DO [address] [place] [address] [email or web address] Taras Alfaro [address] [place] [address] 03/30/2025 12:50 PM EDT Treatment [facility] Rad Onc [address] [place] [address] Arnel Carson MD [address] [place] [address] [email or web address] 03/30/2025 1:00 PM EDT Office Visit [facility] Rad Onc [address] [place] [address] Arnel Carson MD [address] [place] [address] [email or web address] Lydia Crawford 30 [place] [address] 03/31/2025 1:40 PM EDT Treatment [facility] Rad Onc [address] [place] [address] Arnel Carson MD [address] [place] [id number] [email or web address] 04/01/2025 1:40 PM EDT Treatment [facility] Rad Onc [address] [place] [address] Arnel Carson MD [address] [place] [address] [email or web address] 04/05/2025 1:50 PM EDT Treatment [facility] Rad Onc [address] [place] [address] Arnel Carson MD [address] [place] [address] [email or web address] 04/06/2025 1:40 PM EDT Treatment [facility] Rad Onc [address] [place] [address] Arnel Carson MD [address] [place] [address] [email or web address] 04/07/2025 1:40 PM EDT Treatment [facility] Rad Onc [address] [place] [address] Arnel Carson MD [address] [place] [phone] [email or web address] 04/08/2025 1:40 PM EDT Treatment [facility] Rad Onc [address] [place] [address] Arnel Carson MD [address] [place] [address] [email or web address] 04/11/2025 1:40 PM EDT Treatment [facility] Rad Onc [address] [place] [address] Arnel Carson MD [address] [place] [id number] [email or web address] 04/12/2025 1:40 PM EDT Treatment [facility] Rad Onc [address] [place] [address] Arnel Carson MD [address] [place] [address] [email or web address] 04/13/2025 1:40 PM EDT Treatment [facility] Rad Onc [address] [place] [address] Arnel Carson MD [address] [place] [address] [email or web address] 04/14/2025 1:40 PM EDT Treatment [facility] Rad Onc [address] [place] [address] Arnel Carson MD [address] [place] [address] [email or web address] 04/15/2025 1:40 PM EDT Treatment [facility] Rad Onc [address] [place] [address] Arnel Carson MD [address] [place] [address] [email or web address] 04/18/2025 1:40 PM EDT Treatment [facility] Rad Onc [address] [place] [address] Arnel Carson MD [address] [place] [phone] [email or web address] 04/19/2025 1:40 PM EDT Treatment [facility] Rad Onc [address] [place] [address] Arnel Carson MD [address] [place] [phone] [email or web address] 04/20/2025 1:40 PM EDT Treatment [facility] Rad Onc [address] [place] [address] Arnel Carson MD [address] [place] [address] [email or web address] 04/21/2025 1:40 PM EDT Treatment [facility] Rad Onc [address] [place] [address] Arnel Carson MD [address] [place] [address] [email or web address] 04/22/2025 1:40 PM EDT Treatment [facility] Rad Onc [address] [place] [address] Arnel Carson MD [address] [place] [address] [email or web address] 04/25/2025 1:40 PM EST Treatment [facility] Rad Onc [address] [place] [address] Arnel Carson MD [address] [place] [phone] [email or web address] 04/26/2025 1:40 PM EST Treatment [facility] Rad Onc [address] [place] [address] Arnel Carson MD [address] [place] [id number] [email or web address] 04/27/2025 1:40 PM EST Treatment [facility] Rad Onc [address] [place] [address] Arnel Carson MD [address] [place] [phone] [email or web address] 04/28/2025 1:40 PM EST Treatment [facility] Rad Onc [address] [place] [address] Arnel Carson MD [address] [place] [phone] [email or web address] 04/29/2025 1:40 PM EST Treatment [facility] Rad Onc [address] [place] [address] Arnel Carson MD [address] [place] [address] [email or web address] 05/02/2025 1:40 PM EST Treatment [facility] Rad Onc [address] [place] [address] Arnel Carson MD [address] [place] [phone] [email or web address] 05/03/2025 1:40 PM EST Treatment [facility] Rad Onc [address] [place] [address] Arnel Carson MD [address] [place] [phone] [email or web address] 05/04/2025 1:40 PM EST Treatment [facility] Rad Onc [address] [place] [address] Arnel Carson MD [address] [place] [phone] [email or web address] 05/05/2025 1:40 PM EST Treatment [facility] Rad Onc [address] [place] [address] Arnel Carson MD [address] [place] [phone] [email or web address] 05/06/2025 1:40 PM EST Treatment [facility] Rad Onc [address] [place] [address] Arnel Carson MD [address] [place] [address] [email or web address] 05/09/2025 1:40 PM EST Treatment [facility] Rad Onc [address] [place] [address] Arnel Carson MD [address] [place] [phone] [email or web address] documented as of this encounter Visit Diagnoses Not on filedocumented in this encounter Care Teams District Gauger Relationship Specialty Start Date End Date Rigoberto Madrigal MD [address] [place] [address] [address] [place] [phone] [email or web address] PCP - General Internal Medicine 01/26/25 Yulisa Haynes MD [address] [facility] [address] [email or web address] 02/16/25 Don Gonzales MD [address] [place] [address] [place] [address] General Surgery 02/16/25 documented as of this encounter Additional Source Comments The information contained in this document represents components of the legal health record. It is not the complete legal health record.[facility]
--- OUTSIDE RECORDS SUMMARY | 2025-03-10 16:20 | XMS_ITS | Clinical Summary ---
Author Organization [facility] Address [address] [place] [address] Phone Care Team Providers Care Golf Club Weigher Name Role Phone Rigoberto Madrigal MD Primary Care Provide r Yulisa Haynes MD Unavailable [phone] Don Gonzales MD Unavailable [phone] Allergies No known active allergies Medications sucralfate [...] Staging:Clinical:Stage I(cT2, cN0, cM0) - Signed by Arnle Carson MD on 02/16/2025 Chronic idiopathic constipation 07/17/2023 Irritable bowel syndrome with constipation 11/22 Hypertensive heart disease with heart failure Alcohol dependence, uncomplicated 11/21/2022 Non-ischemic cardiomyopathy 11/21/2022 Chronic combined systolic and diastolic hrt fail 11/21/2022 Gastro-esophageal reflux disease without esophag itis 11/21/2022 History of peptic ulcer disease 11/21/2022 penitentiary (current) use of anticoagulants 2022 Atrial fibrillation 05/29/2022 Bipolar disorder 10/06/2018 Chronic obstructive lung disease 07/22/2016 Glaucoma 07/22/2016 Encounters Date Type Department Care Team Description 03/10/2025 Refill [facility] [address] Floor, [address] [place] [address] Tamiko Howard MA Medication Refill 02/16/2025 11:00 AM EDT Office Visit [facility] Rad On[address] [place] [address] Arnel Carson MD Miranda-Leon, [place] Malignant neoplasm of rectum (Primary Dx) 01/27/2025 Ancillary Orders [facility] [address] [place] [address] Unknown, Unknown, 01/26/2025 Ancillary Orders [facility] [address] [place] [address] Tammy Munoz MD 01/20/2025 - 01/20/2025 11:59 PM EDT Hospital Encounter [facility] [address] [place] [address] Unknown, Unknown, MD Discharge Disposition: Home or Self Care 01/19/2025 - 01/19/2025 11:59 PM EDT Hospital Encounter [facility]Outside Imaging [address] [place] [address] Unknown, Unknown, MD Discharge Disposition: Home or [...] Description 03/15/2025 12:00 PM EDT Office Visit [facility] At [facility] Rad [address]c [address] [place] [address] Arnel Carson MD [address] [place] [id number] [email or web address] Taras Alfaro [address] [place] [id number] 03/30/2025 10:15 AM EDT Office Visit [facility] [address] [place] [address] 3rd [facility], [address] [place] [address] Fransisco Nguyen DO [address] [place] [id number] [email or web address] Taras Alfaro [address] [place] [phone] 03/30/2025 12:50 PM EDT Treatment [facility] At [facility] Rad Onc [address] [place] [address] Arnel Carson MD [address] [place] [id number] [email or web address] 03/30/2025 1:00 PM EDT Office Visit [facility] At [facility] Rad Onc [address] [place] [address] Arnel Carson MD [address] [place] [id number] [email or web address] Lydia Crawford [address] [place] [phone] [email or web address] 03/31/2025 1:40 PM EDT Treatment [facility] At [facility] Rad Onc [address] [place] [address] Arnel Carson MD [address] [place] [id number] [email or web address] 04/01/2025 1:40 PM EDT Treatment [facility] At [facility] Rad Onc [address] [place] [address] Arnel Carson MD [address] [place] [id number] [email or web address] 04/05/2025 1:50 PM EDT Treatment [facility] At [facility] Rad Onc [address] [place] [address] Arnel Carson MD [address] [place] [id number] [email or web address] 04/06/2025 1:40 PM EDT Treatment [facility] At [facility] Rad Onc [address] [place] [address] Arnel Carson MD [address] [place] [id number] [email or web address] 04/07/2025 1:40 PM EDT Treatment [facility] At [facility] Rad Onc [address] [place] [address] Arnel Carson MD [address] [place] [id number] [email or web address] 04/08/2025 1:40 PM EDT Treatment [facility] At [facility] Rad Onc [address] [place] [address] Arnel Carson MD [address] [place] [id number] [email or web address] 04/11/2025 1:40 PM EDT Treatment [facility] At [facility] Rad Onc [address] [place] [address] Arnel Carson MD [address] [place] [id number] [email or web address] 04/12/2025 1:40 PM EDT Treatment [facility] At [facility] Rad Onc [address] [place] [address] Arnel Carson MD [address] [place] [address] [id number] [email or web address] 04/13/2025 1:40 PM EDT Treatment [facility] At [facility] Rad Onc [address] [place] [address] Arnel Carson MD [address] [place] [id number] [email or web address] 04/14/2025 1:40 PM EDT Treatment [facility] At [facility] Rad Onc [address] [place] [address] Arnel Carson MD [address] [place] [id number] [email or web address] 04/15/2025 1:40 PM EDT Treatment [facility] At [facility] Rad Onc [address] [place] [address] Arnel Carson MD [address] [place] [id number] [email or web address] 04/18/2025 1:40 PM EDT Treatment [facility] Rad Onc [address] [place] [address] Arnel Carson MD [address] [place] [phone] [email or web address] 04/19/2025 1:40 PM EDT Treatment [facility] Rad Onc [address] [place] [address] Arnel Carson MD [address] [place] [id number] [email or web address] 04/20/2025 1:40 PM EDT Treatment [facility] At [facility] Rad Onc [address] [place] [address] Arnel Carson MD [address] [place] [id number] [email or web address] 04/21/2025 1:40 PM EDT Treatment [facility] At [facility] Rad Onc [address] [place] [address] Arnel Carson MD [address] [place] [id number] [email or web address] 04/22/2025 1:40 PM EDT Treatment [facility] At [facility] Rad Onc [address] [place] [address] Arnel Carson MD [address] [place] [address] [id number] [email or web address] 04/25/2025 1:40 PM EST Treatment [facility] At [facility] Rad Onc [address] [place] [address] Arnel Carson MD [address] [place] [phone] [email or web address] 04/26/2025 1:40 PM EST Treatment [facility] Rad Onc [address] [place] [address] Arnel Carson MD [address] [place] [id number] [email or web address] 04/27/2025 1:40 PM EST Treatment [facility] Rad Onc [address] [place] [address] Arnel Carson MD [address] [place] [id number] [email or web address] 04/28/2025 1:40 PM EST Treatment [facility] Rad Onc [address] [place] [address] Arnel Carson MD [address] [place] [address] [id number] [email or web address] 04/29/2025 1:40 PM EST Treatment [facility] Rad Onc [address] [place] [address] Arnel Carson MD [address] [place] [id number] [email or web address] 05/02/2025 1:40 PM EST Treatment [facility] Rad Onc [address] [place] [address] Arnel Carson MD [address] [place] [address] [id number] [email or web address] 05/03/2025 1:40 PM EST Treatment [facility] At [facility] Rad Onc [address] [place] [address] Arnel Carson MD [address] [place] [id number] [email or web address] 05/04/2025 1:40 PM EST Treatment [facility] At [facility] Rad Onc [address] [place] [address] Arnel Carson MD [address] [place] [address] [id number] [email or web address] 05/05/2025 1:40 PM EST Treatment [facility] Rad Onc [address] [place] [address] Arnel Carson MD [address] [place] [address] [id number] [email or web address] 05/06/2025 1:40 PM EST Treatment [facility] Rad Onc [address] [place] [address] Arnel Carson MD [address] [place] [address] [id number] [email or web address] 05/09/2025 1:40 PM EST Treatment [facility] Rad Onc [address] [place] [address] Arnel Carson MD [address] [place] [address] [id number] [email or web address] Health Maintenance Due Date Last Done Comments [...] 03/21/2021 03/21/2020 Adult Td,Tdap Booster 02/25/2023 02/25/2013 INFLUENZA VACCINE (#1) 2025 COVID-19 VACCINE (1 - 2023-2 5 season) 2025 LIPID PANEL 03/23/2026 03/23/2021 HEPATITIS A [...] not for interpretation. us Unknown Unknown MD KNAPP OUTSIDE IMAGING W/OUT INT ERPRETATION Final Result * MRI Pelvis (Bone) Outside (No Interpretation) (01/19/2025 12:00 AM EDT) Narrative SYSTEMGENERATED, DOCUMENTATION - 01/26/2025 4:07 PM EDT This study is for PACS storage only and not for interpretation. us Unknown Unknown MD IMG OUTSIDE IMAGING W/OUT INT ERPRETATION Final Result from Last 3 Months Insurance MEDICARE PART A & B [facility] PART A & B HEALTH MEDICARE PART A & [facility] PART [facility] [place] B [facility] Care Teams Golf [employer] Weigher Relationship Specialty Start Date End Date Rigoberto Madrigal MD [address] [place] [address] [place] [phone] PCP - General Internal Medicine 01/26/25 Yulisa Haynes MD [address] [place] [phone] [email or web address] 02/16/25 Don Gonzales MD [address] [place] [address] [place] [id number] General Surgery 02/16/25 Additional Source Comments The information contained in this document represents components of the legal health record. It is not the complete legal health record.[facility]
--- OUTSIDE RECORDS SUMMARY | 2025-03-10 16:20 | XMS_ITS | Encounter Summary ---
Author Organization [employer] Address [address] [facility] 7t [place] [address] Care Team Providers Care Pressroom Supervisor Name Role Phone Rigoberto Us MD Primary Care Provide r Timothy Broussard RN Unavailable [phone] Unavailable Encounter Details Date Type Department Care Team ([facility] Contact Info) Description 10/04/2022 Orders Only [facility] [address] [place] [address] [phone] Demi Garcia, RN [address] [place], [place] [phone] Social History Tobacco Use Types Packs/Day Years [...] Upcoming Encounters Date Type Department Care Team ([facility] Contact Info) Description 05/03/2025 11:15 AM EST Office Visit [facility] [address] [place] [phone] Rigoberto Us MD [address] [place] [address] documented as of this encounter Visit Diagnoses Not on filedocumented in this encounter Care Teams Pressroom Supervisor Relationship Specialty Start Date End Date Rigoberto Us MD [address] [place] [address] PCP - General Internal Medicine 03/30/18 Timothy Broussard RN [address] [place] [address] [employer] ManagerShort Story Writer 12/26/23 04/07/[address] [place] [address] Drive 3rd [place] [address] Gastroenterology 09/09/24 documented as of this encounter
== END 2025-03-10 15:07 | disposition home or self-care (01) ==
LOC: HO.HUSH 14:35
PROVIDERS: PCP Nurse Practitioner Family; Visit Provider Nurse Practitioner Family
DX: Z13.9 Encounter for screening, unspecified (principal)

== ENCOUNTER 2025-03-24 10:18 | Outpatient (AMB) | payer MEDICARE, MEDICAID, SELFPAY ==
[2025-03-24 10:28] VITALS: BP 90/68; PULSE 80; O2SAT 95; BMI 28.9
--- NOTE | 2025-03-24 10:28 | MHC.OFFVIS ---
Vital Signs 03/24/25 10:28 Height 5 ft 11 in Weight 207 lb 3.752 oz BMI 28.9 BP 90/68 Blood Pressure Location Lt brachial Position Sitting Pulse 80 Pulse Source Pulse Oximeter Pulse Oximetry (%) 95 Oxygen Delivery Method Nasal Cannula Oxygen Flow Rate 2 Intake Visit Reasons: copd Accompanied by: Spouse Allergies No Known Allergies (No Known Allergies*) Allergy (Verified 03/24/25 10:30) HPI Comments Details: The patient is a 69-year-old gentleman with a known history of tobacco dependency, COPD with significant emphysema and pulmonary nodules is here for evaluation. The patient to smoke was 2 point complaints of shortness of breath with activity and also complains of cough. Ntmn-hl-rlyysyhs severity. Feels like his legs are very heavy in does get fatigued with activity. He does continue to use inhalers which include Flovent and Spiriva. He uses them with good adherence. He does not have a rescue inhaler at this time. We did talk about smoking. The patient is down to 10 cigarettes a day. He is struggling to decrease further. He was on Chantix but was making and depressed. Therefore will hold off on additional Chantix. He will be a good candidate for Wellbutrin however. Also, in conjunction with Wellbutrin I will prescribe the Nicotrol inhaler that he can use in between for breakthrough nicotine withdrawals. In the patient has had multiple CT scans of the chest in currently participating in the lung cancer screening program. Her last CT scan was done just a few days ago 02/05/2021 demonstrating stable right upper lobe pulmonary nodules. He does have moderate to severe emphysema primarily in the upper lung zones. In he also is following up with Dr. Arce from thoracic surgery. Will continue monitoring the pulmonary nodule in the right upper lobe closely. The patient does have a family history of lung cancer and also pulmonary fibrosis. 01/23/2023 the patient is here for pulmonary follow-up visit. The patient overall has been doing well from a respiratory status. He is having significant amount of back pain. He did have a compression fracture that was 6 in now having issues with other back issues. She was referred to a neurosurgeon. At this point he is waiting that appointment. Clinically patient doing very well from a respiratory status he has stop smoking he has been using the Trelegy inhaler. Under go ahead and decrease the amount of steroids to the lower dose Trelegy. The patient also underwent a CT scan of the chest which I personally reviewed with him. All the findings are reassuring the nodular densities appear to be stable not smaller. He does have extensive emphysema however. That has not changed. No significant scarring noted. He will need another CT scan for another year. Will follow-up in the springtime. 03/14/2023 the patient is here for pulmonary follow-up visit. Overall the patient is doing very well from a respiratory status. He continues uses respiratory therapy with good effect. The patient has not required any prednisone or rescue therapy. He has been having significant back pain. He recently did have an MRI of the back demonstrating new or worsening lumbar compression fractures. He will be following up with pain management soon. He may need to have additional kyphoplasty done. He is going to be working with them. In the meantime more respiratory status the patient is doing well and she will be able to tolerate anesthesia for his procedure. The patient also had a CT scan of the chest demonstrating stable pulmonary nodules. He does have extensive emphysema. Overall the patient has been doing well after he is quit smoking. We did do alpha-1 testing which was completely normal. will go ahead and follow-up in 1 year. If the patient develops any symptoms prior to that he is call the office for an earlier assessment. 09/26/2023 the patient is here for a pulmonary follow-up visit. Overall he is doing fairly well from respiratory status. He continues with this tobacco cessation. He continues with the Trelegy inhaler. Does not really use his rescue inhaler often. Typically less than twice a week. He does have dyspnea on exertion specially going up a flight of stairs. Explained to him that not only does have COPD but he has also been more anemic in the last few months that is also contributing to his breathing. In addition to that he is gained some weight. He is scheduled to have a repeat CT scan in the summer subsequently her follow-up in the fall with PFTs. At that point will plan to get him scheduled for pulmonary rehabilitation. For now he can work on his other issues that he is having such as the anemia and his musculoskeletal discomforts. 12/23/2023 the patient is here for pulmonary follow-up visit. He was recently hospitalized with pneumonia and COPD exacerbation. His chest x-ray did personally reviewed demonstrating a right-sided opacity moderate in size. He was placed on antibiotics steroids and oxygen. Quickly after few days he had a repeat x-ray again personally by me demonstrating interval resolution of the process. I suggest that possibly was not just an infectious process but inflammatory process as well. The patient had been having some vomiting so the therefore micro aspirations into the lung and aspiration pneumonitis is also in differential. I did review her CT scan that he had previously done in early 2023 with relatively minimal changes to the right hemithorax dust with some scarring. The patient is scheduled to have a repeat CT scan sometime about mid December. Will follow-up those findings. In the meantime he is on oxygen. He is having hard tank carrying the portable oxygen tanks. We were able to do another 6 minute walk test. The patient was able to maintain a pulse ox of 92% at rest which is reassuring. This was on room air. Then he was ambulated he did desaturate down to 88%. He was then placed on 2 L pulse and his pulse ox was low in the 90s. Therefore he was placed on 3 L pulse in the lot better. Therefore will going to request a conserving valve with a be sudden therefore him. This would be a lot easier for him to carry. In addition to that will also request a portable oxygen concentrator the provide better portability outside of the home. Will at least start the process through [facility] as they have thrown protocols to provide such devices. He will continue with current respiratory therapy. He is currently getting physical therapy at home. Therefore will wait to consider pulmonary rehabilitation in the future. He is reluctant at this time. 03/31/2024 the patient is here for a pulmonary follow-up visit. Overall he is doing well. He is actually feeling better. He is walking regularly. He is using his oxygen with good effect. He is wondering if he still needs the oxygen at nighttime. Therefore will do an overnight oximetry on room air with the hope that he does not qualify any longer so we can discontinue that. But for now he should continue to use it. The patient also had a CT scan through the lung cancer screening program demonstrating a concerning 1.1 cm pulmonary nodule in the right upper lobe. Therefore, he was set up for a PET scan. He did have the PET scan but it was actually in reducing size and no significant FDG activity. Therefore the fact that the nodule is decreasing in size is very reassuring. However, they did document that he does have a new nodule measuring 6 mm. This is to small for PET scan yield. Therefore, he will need to have a repeat CT scan in 6 months for the new nodule. He also states he does have significant back pain and recently was started on morphine. I discouraged him to continue the morphine. He will talk to his primary care doctor about discontinuing the morphine and finding alternative. The morphine can worsen his respiratory drive and potentially worsen his respiratory failure. The patient also the PET scan has some FDG activity around the GE junction of the hiatal hernia. He does follow-up with GI regularly. 10/15/2024 the patient is here for a pulmonary follow-up visit. Overall the patient has been doing well. He continues uses respiratory therapy as prescribed. Also using the oxygen with good effect. The patient is thinking about going a broad and was taken off flight. He does not have a POC at this time. We had requested when before but he may have to go to the protocols of the [facility] in order to qualify for 1. In the meantime the patient will come back in 6 months and we can assess his oxygen needs to see how safe is for him to travel without any oxygen. He did undergo CT scan of the chest that I personally reviewed with him. It appears that the nodular density has decreased in size which is reassuring. Will plan to repeat the CAT scan in a year's time. If he develops any issues prior to the next visit in 6 months he will call for an earlier assessment. 03/24/2025 the patient is here for pulmonary follow-up visit. Overall the patient has been doing well. From a respiratory status he continues use the oxygen with activity and sleep. He does not need it at rest. His last PFTs back in reassuring with mild degree of COPD. The patient unfortunately was diagnosed with colon cancer. Apparently he did go into atrial fibrillation as well in his last EF demonstrated to have an ejection fracture of 45-50%. For his multiple organ system involved. He was felt to be a noncandidate for surgery. At least from a pulmonary standpoint I do feel strongly that he is able to pursue anesthesia and surgery if need be. So would not hold off abdominal surgery for his underlying pulmonary disease. He has responded well to therapy and has stabilized from a pulmonary standpoint. He will follow-up with the Oncology as well. Will plan to request pulmonary function studies to be updated at this time. Will follow-up in 6 months if he has any issues prior to this she can always call further recommendations. [facility] Medical History Rectal adenocarcinoma Diarrhea GERD (gastroesophageal reflux disease) Compression fracture of body of thoracic vertebra Oxygen dependent Asthma On anticoagulant therapy CHF (congestive heart failure) History of home oxygen therapy Pulmonary nodule SOB (shortness of breath) Dyslipidemia Alcohol abuse PVD (peripheral vascular disease) Rectal polyp Calyceal diverticulum Renal cyst Acute exacerbation of emphysema Chronic hypoxemic respiratory failure Nicotine dependence, cigarettes, uncomplicated Compression fracture of T7 vertebra Cervical spondylosis Bilateral tinnitus Ascending aorta dilatation Opacity of lung on imaging study Generalized anxiety disorder Edentulous Bipolar 1 disorder GI bleed Emphysema lung BPH (benign prostatic hyperplasia) Compression fracture of lumbar vertebra Osteoporosis Atrial fibrillation with rapid ventricular response Compression fracture of body of thoracic vertebra History of alcohol abuse Compression fracture of T9 vertebra Nonischemic cardiomyopathy Right clavicle fracture Tubular adenoma of colon COPD (chronic obstructive pulmonary disease) Hyperlipidemia Hematemesis with nausea Dysphagia Systolic dysfunction Depression Hypertension Peptic ulcer disease Surgical History History of rectal polypectomy (12/08/24) Hx of cystoscopy Hx of kyphoplasty History of surgery on left wrist (~03/21/10) Hx of endoscopy Hx of colonoscopy (~02/13/06) Hx of cataract surgery (~07/02/10) History of appendectomy History of gastric surgery Family History Mother Renal failure Father History of depression Brother Colon cancer Acute basophilic leukemia Social History Household Members: Significant Other and None Housing: House Are you a primary child caregiver to a significant other at home: No Do you presently have visiting nurse or other home services: Yes (PROGRAM DIRECTOR/AIR PERSONALITY) Alcohol intake: never Patient Tobacco Use Status: Former Tobacco user Tobacco use type: Cigarette Cigarette Packs Per Day: 0.5 Years Smoked: 55 e-Cigarette/Vaping Use: Former Use Second Hand Smoke Exposure: No Advance Directives Date on File: 09/02/22 service: No Current occupational status: unemployed and disabled 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 Review of Systems Const Denies chills, Denies fatigue, Denies fever(s), Denies weight gain and Denies weight loss ENT Denies dizziness Card Denies chest pain, Denies leg edema, Denies lightheadedness, Denies palpitations, Reports dyspnea on exertion, Denies orthopnea and Denies other Resp Reports cough and Reports dyspnea on exertion GI Denies hematochezia and Denies change in stool character Musc Denies abnormal gait, Denies muscle weakness, Denies numbness, Denies radiating pain into limb and Denies tingling Neuro Denies abnormal gait, Denies dizziness, Denies numbness and Denies tingling Psych Reports depression (ON MEDS ) Endo Denies fatigue and Denies palpitations Physical Exam Vital Signs: Last Vital Signs Pulse 80 03/24/25 10:28 BP 90/68 03/24/25 10:28 Pulse Ox 95 03/24/25 10:28 Oxygen Delivery Method Nasal Cannula 03/24/25 10:28 Oxygen Flow Rate 2 03/24/25 10:28 BMI result Body Mass Index 28.9 Last Vital Signs Temp 98.0 F 08/28/22 07:30 Pulse 88 08/28/22 07:48 Resp 18 08/28/22 07:48 BP 110/60 08/28/22 07:30 Pulse Ox 94 08/28/22 07:30 O2 Del Method 08/28/22 07:30 O2 Flow Rate 2.5 08/28/22 07:30 BMI result Body Mass Index 28.5 Const General: alert Neck Neck: Yes normal visual inspection, Yes full ROM and Yes no lymphadenopathy Chest Chest palpation & inspection: normal inspection of the chest Resp Effort & Inspection: normal respiratory effort Auscultation: diminished lung sounds Cardio Rate: regular rate Rhythm: abnormal rhythm Heart sounds: S1 normal heart sound present and S2 normal heart sound present GI Palpation (GI): Soft to palpation and nontender Auscultation: normal bowel sounds Back/Spine/Pelvis Back: back tenderness Skin General skin exam: rashes and/or lesions noted Assessment & Plan Assessment & Plan (1) Chronic hypoxemic respiratory failure: Code(s): J96.11 - Chronic respiratory failure with hypoxia Category: Medical (2) Pulmonary nodules: Code(s): R91.8 - Other nonspecific abnormal finding of lung field Category: Medical (3) COPD (chronic obstructive pulmonary disease): Code(s): J44.9 - Chronic obstructive pulmonary disease, unspecified Category: Medical Qualifiers: COPD type: emphysema Emphysema type: centrilobular Qualified Code(s): J43.2 - Centrilobular emphysema (4) Dyspnea: Code(s): R06.00 - Dyspnea, unspecified Category: Medical Qualifiers: Dyspnea type: dyspnea on exertion Qualified Code(s): R06.09 - Other forms of dyspnea Plan Continue Trelegy inhaler 100 continue oxygen: 3l/pulse with activity with cerserving tank and 2l/min while sleeping with concentrator. BARBARA as needed consider pulmonary rehab Repeat CT chest in 12 months PFT Preop: pt does have COPD and is oxygen dependent, but is able to undergo anesthesia and abdominal surgery if necessary F/U in 6 months Coding Level of Care Code Est Pt Level 4 (04436) Complex EM visit Add On G2211 Diagnoses Chronic hypoxemic respiratory failure J96.11 Pulmonary nodules R91.8 Centrilobular emphysema J43.2 COPD type: emphysema Emphysema type: centrilobular Dyspnea on exertion R06.09 Dyspnea type: dyspnea on exertion Time Spent (min) 16
--- OUTSIDE RECORDS SUMMARY | 2025-03-24 11:44 | XMS_ITS | Encounter Summary ---
Author Organization [email or web address] Address [address] [place] [address] Care Team Providers Care Steel Erector Name Role Phone Rigoberto Us MD Primary Care Provide r Timothy Broussard RN Unavailable [phone] September Unavailable Encounter Details Date Type Department Care Team (Latest Contact Info) Description 10/12/2020 Abstract [facility] CONVERSIONS Dental, Provider, DDS Social [...] Description 05/03/2025 11:15 AM EST Office Visit [facility] MEDICINE [address] [place] [address] Rigoberto Us MD [address] [place] [address] documented as of this encounter Visit Diagnoses Not on filedocumented in this encounter Care Teams Steel Erector Relationship Specialty Start Date End Date Rigoberto Us MD [address] [place] [address] PCP - General Internal Medicine 03/30/18 Timothy Broussard, RN [address] [place] [phone] Inspector Balance BridgeTraffic Reporter 12/26/23 04/07/[address] [place] [address] 3[address] [place] [address] Gastroenterology 09/09/24 documented as of this encounter
--- OUTSIDE RECORDS SUMMARY | 2025-03-24 11:44 | XMS_ITS | Encounter Summary ---
Author Organization [employer] Address [address] [place] [address] Care Team Providers Care Graphic Arts Instructor Name Role Phone Rigoberto Us MD Primary Care Provide r Timothy Broussard RN Unavailable [phone] September Unavailable Reason for Visit * Reason Onset Date Comments Call Back Request 01/22/2024 Encounter Details Date Type Department Care Team ([facility] st Contact Info) Description 01/22/2024 Telephone [facility] MEDICINE [address] [place], [place] [phone] Rigoberto Us MD [address] [place], [place] [phone] Call Back Request Social History Tobacco Use [...] a call back in order to r/s COBOL PROGRAMMER appt. Please contact at [phone] documented in this encounter Plan of Treatment Upcoming Encounters Date Type Department Care Team (Late st Contact Info) Description 05/03/2025 11:15 AM EST Office Visit [facility] MEDICINE [address] [place] [phone] Rigoberto Us MD [address] [place] [phone] documented as of this encounter Visit Diagnoses Not on filedocumented in this encounter Additional Health Concerns Assessment Noted Time PHQ-9 Depression Total Score: 8 08/26/19 24 11:49 AM EST documented as of this encounter Care Teams Graphic Arts Instructor Relationship Specialty Start Date End Date Rigoberto Us MD [address] [place] [id number] PCP - General Internal Medicine 03/30/18 Timothy Broussard RN [address] [place] [phone] Welding Machine SetterDirector Sales Training 12/26/23 04/07/[address] [place] [address] [address] [place] [address] Gastroenterology 09/09/24 documented as of this encounter
--- OUTSIDE RECORDS SUMMARY | 2025-03-24 11:44 | XMS_ITS | Encounter Summary ---
Author Organization [facility] Address [address] [place] [address] Phone Care Team Providers Care Cleaning Maid Name Role Phone Rigoberto Madrigal MD Primary Care Provide r Yulisa Haynes MD Unavailable [phone] Don Gonzales MD Unavailable Reason for Visit * Reason Onset Date Comments Medication Refill 03/10/2025 Encounter Details Date Type Department Care Team (Late st Contact Info) Description 03/10/2025 Refill [facility] [address] [facility] 3rd Floor, [address] [place] [address] Tamiko Howard ME 22 [place] [address] [email or web address] Medication Refill Social History [...] Description 03/30/2025 10:15 AM EDT Office Visit [facility] [address] [facility] 3rd Floor, [address] [place] [address] Fransisco Nguyen DO 22 [facility] [address] [place] [address] [email or web address] Taras Alfaro [address] [place] [address] 03/30/2025 12:50 PM EDT Treatment [facility] Rad Onc [address] [place] [address] 56129 Arnel Carson MD [address] [place] [address] 25845 [email or web address] 03/30/2025 1:00 PM EDT Office Visit [facility] Rad Onc [address] [place] [address] 43110 Arnel Carson MD [address] [place] [address] [phone] [email or web address] Lydia Crawford [address] [place] [address] 21824 03/31/2025 1:40 PM EDT Treatment [facility] Rad Onc [address] [place] [address] 50879 Arnel Carson MD [address] [place] [address] 75390 [email or web address] 04/01/2025 1:40 PM EDT Treatment [facility] Rad Onc [address] [place] [address] 08860 Arnel Carson MD [address] [place] [address] 23249 [email or web address]@[email or web address] 04/05/2025 1:50 PM EDT Treatment [facility] Rad Onc [address] [place] [address] Arnel Carson MD [address] [place] [address] 85024 [email or web address]@[facility] 04/06/2025 1:40 PM EDT Treatment [facility] Rad Onc [address] [place] [address] 21732 Arnel Carson MD [address] [place] [address] 50933 [email or web address] 04/07/2025 1:40 PM EDT Treatment [facility] Rad Onc [address] [place] [address] 71630 Arnel Carson MD [address] [place] [address] 98263 [email or web address]@[facility] 04/08/2025 1:40 PM EDT Treatment [facility] Rad Onc [address] [place] [address] 00259 Arnel Carson MD [address] [place] [address] 38423 [email or web address] 04/11/2025 1:40 PM EDT Treatment [facility] Rad Onc [address] [place] [address] Arnel Carson MD [address] [place] [address] 42359 [email or web address]@[email or web address] 04/12/2025 1:40 PM EDT Treatment [facility] Rad Onc [address] [place] [address] Arnel Carson MD [address] [place] [address] 65073 [email or web address]@[email or web address] 04/13/2025 1:40 PM EDT Treatment [facility] Rad Onc [address] [place] [address] Arnel Carson MD [address] [place] [address] 86995 [email or web address]@[facility] 04/14/2025 1:30 PM EDT Treatment [facility] Rad Onc [address] [place] [address] 77221 Arnel Carson MD [address] [place] [address] 37068 [email or web address] 04/15/2025 1:40 PM EDT Treatment [facility] Rad Onc [address] [place] [address] 85303 Arnel Carson MD [address] [place] [address] 60931 [email or web address]@[facility] 04/18/2025 1:40 PM EDT Treatment [facility] Rad Onc [address] [place] [address] Arnel Carson MD [address] [place] [address] 30379 [email or web address]@[facility] 04/19/2025 1:40 PM EDT Treatment [facility] Rad Onc [address] [place] [address] 17083 Arnel Carson MD [address] [place] [address] 95457 [email or web address] 04/20/2025 1:40 PM EDT Treatment [facility] Rad Onc [address] [place] [address] Arnel Carson MD [address] [place] [address] 37659 [email or web address] 04/21/2025 1:40 PM EDT Treatment [facility] Rad Onc [address] [place] [address] 16465 Arnel Carson MD [address] [place] [address] 46512 [email or web address] 04/22/2025 1:40 PM EDT Treatment [facility] Rad Onc [address] [place] [address] 87885 Arnel Carson MD [address] [place] [address] 83428 [email or web address] 04/25/2025 1:40 PM EST Treatment [facility] Rad Onc [address] [place] [address] 57637 Arnel Carson MD [address] [place] [address] 50072 [email or web address]@[email or web address] 04/26/2025 1:40 PM EST Treatment [facility] Rad Onc [address] [place] [address] Arnel Carson MD [address] [place] [address] 28757 [email or web address]@[facility] 04/27/2025 1:40 PM EST Treatment [facility] Rad Onc [address] [place] [address] Arnel Carson MD [address] [place] [address] 84730 [email or web address]@[facility] 04/28/2025 1:40 PM EST Treatment [facility] Rad Onc [address] [place] [address] Arnel Carson MD [address] [place] [address] 99650 [email or web address]@[facility] 04/29/2025 1:40 PM EST Treatment [facility] Rad Onc [address] [place] [address] 38313 Arnel Carson MD [address] [place] [address] 68276 [email or web address]@[facility] 05/02/2025 1:40 PM EST Treatment [facility] Rad Onc [address] [place] [address] 73134 Arnel Carson MD [address] [place] [address] 04710 [email or web address]@[facility] 05/03/2025 1:40 PM EST Treatment [facility] Rad Onc [address] [place] [address] Arnel Carson MD [address] [place] [address] 39249 [email or web address]@[facility] 05/04/2025 1:40 PM EST Treatment [facility] Rad Onc [address] [place] [address] 08227 Arnel Carson MD [address] [place] [address] 46742 [email or web address]@[email or web address] 05/05/2025 1:40 PM EST Treatment [facility] Rad Onc [address] [place] [address] Arnel Carson MD [address] [place] [address] 89169 [email or web address] 05/06/2025 1:40 PM EST Treatment [facility] Rad Onc [address] [place] [address] 70034 Arnel Carson MD [address] [place] [address] 69213 [email or web address] 05/09/2025 1:40 PM EST Treatment [facility] Rad Onc [address] [place] [address] Arnel Carson MD [address] [place] [address] 39247 [email or web address]@[email or web address] documented as of this encounter Visit Diagnoses Not on filedocumented in this encounter Care Teams Cleaning Maid Relationship Specialty Start Date End Date Rigoberto Madrigal MD [address] [place] [address] [address] [place] [address] [email or web address] PCP - General Internal Medicine 01/26/25 Yulisa Haynes MD [address] [place] [address] [email or web address] 02/16/25 Don Gonzales MD [address] [place] [address] [place] [address] General Surgery 02/16/25 documented as of this encounter Additional Source Comments The information contained in this document represents components of the legal health record. It is not the complete legal health record.[facility]
--- OUTSIDE RECORDS SUMMARY | 2025-03-24 11:44 | XMS_ITS | Encounter Summary ---
Author Organization [employer] Address [address] [facility] 7t [place] [address] Care Team Providers Care Rail Transportation Tabeler Name Role Phone Rigoberto Us MD Primary Care Provide r Timothy Broussard RN Unavailable [phone] September Unavailable Encounter Details Date Type Department Care Team (Late Contact Info) Description 10/31/2022 Abstract [facility] MEDICINE [address] [place] [address] Rigoberto Us MD [address] [place] [address] [phone] Social History Tobacco Use Types Packs/Day Years [...] Description 05/03/2025 11:15 AM EST Office Visit [facility] [address] [place] [address] [phone] Rigoberto Us MD [address] [place] [address] [phone] documented as of this encounter Visit Diagnoses Not on filedocumented in this encounter Care Teams Rail Transportation Tabeler Relationship Specialty Start Date End Date Rigoberto Us MD [address] [place] [address] PCP - General Internal Medicine 03/30/18 Timothy Broussard RN [address] [place] [address] 72524 Glove BoarderSoda Dispenser 12/26/23 04/07/[address] [place] [address] 3rd [place] [address] Gastroenterology 09/09/24 documented as of this encounter
--- OUTSIDE RECORDS SUMMARY | 2025-03-24 11:44 | XMS_ITS | Encounter Summary ---
Author Organization [employer] Address 75 [facility] 7t [place] [address] Care Team Providers Care X Ray Equipment Servicer Name Role Phone Rigoberto Us MD Primary Care Provide r September Reason for Visit * Reason Onset Date Comments Medication Question 05/25/2024 Encounter Details Date Type Department Care Team ([facility] st Contact Info) Description 05/25/2024 Telephone [facility] MEDICINE [address] [place], [place] [phone] Rigoberto Us MD [address] [place], [place] [phone] Medication Question Social History Tobacco Use Types [...] he's pain don't go away. Callback number [phone] (sao tomean) documented in this encounter Plan of Treatment Upcoming Encounters Date Type Department Care Team (Late st Contact Info) Description 05/03/2025 11:15 AM EST Office Visit [facility] [address] [facility] [place] [address] Rigoberto Us MD [address] [facility] [place] [address] documented as of this encounter Visit Diagnoses Not on filedocumented in this encounter Additional Health Concerns Assessment Noted Time PHQ-9 Depression Total Score: 8 08/26/19 24 11:49 AM EST documented as of this encounter Care Teams X Ray Equipment Servicer Relationship Specialty Start Date End [place] [address] PCP - General Internal Medicine 03/30/18September [address] [place] [address] 3rd [place] [address] Gastroenterology 09/09/24 documented as of this encounter
--- OUTSIDE RECORDS SUMMARY | 2025-03-24 11:44 | XMS_ITS | Encounter Summary ---
Author Organization [employer] Address 75 [facility] 7t [place] [address] Care Team Providers Care Utilities Equipment Repairer Name Role Phone Rigoberto Us MD Primary Care Provide r Timothy Broussard RN Unavailable [phone] September Unavailable Encounter Details Date Type Department Care Team (Late st Contact Info) Description 05/29/2022 Abstract [facility] MEDICINE [address] [place] [address] 86305 ProviderElmira MD Social History Tobacco Use Types [...] 11:15 AM EST Office Visit [facility] MEDICINE [address] [place] [address] 16621 Rigoberto Us MD [address] [place] [address] [phone] documented as of this encounter Visit Diagnoses Not on filedocumented in this encounter Care Teams Utilities Equipment Repairer Relationship Specialty Start Date End Date Rigoberto Us MD [address] [place] [address] [phone] PCP - General Internal Medicine 03/30/18 Timothy Broussard RN [address] [place] [address] Commissioning EditorMedical Records Clerk 12/26/23 04/07/[address] [place] [address] 3rd [place] [address] Gastroenterology 09/09/24 documented as of this encounter
--- OUTSIDE RECORDS SUMMARY | 2025-03-24 11:44 | XMS_ITS | Encounter Summary ---
Author Organization [employer] Address 75 [facility] 7t [place] [address] Care Team Providers Care High School Science Teacher Name Role Phone Rigoberto Us MD Primary Care Provide r Timothy Broussard RN Unavailable [phone] September Unavailable Encounter Details Date Type Department Care Team ([facility] Contact Info) Description 10/04/2022 Orders Only [facility] MEDICINE [address] [place] [address] [phone] Demi Garcia, RN [address] [place], [place] [phone] Social History Tobacco Use Types Packs/Day Years [...] Upcoming Encounters Date Type Department Care Team ([facility] Contact Info) Description 05/03/2025 11:15 AM EST Office Visit [facility] [address] [place] [address] Rigoberto Us MD [address] [place] [address] documented as of this encounter Visit Diagnoses Not on filedocumented in this encounter Care Teams High School Science Teacher Relationship Specialty Start Date End Date Rigoberto Us MD [address] [place] [address] PCP - General Internal Medicine 03/30/18 Timothy Broussard RN [address] [place] [address] Occupational TherapistProcurement Professional 12/26/23 04/07/[address] [place] [address] Drive 3rd [place] [address] Gastroenterology 09/09/24 documented as of this encounter
--- OUTSIDE RECORDS SUMMARY | 2025-03-24 11:44 | XMS_ITS | Encounter Summary ---
Author Organization [employer] Address [address] [facility] [address] 7t [place] [address] Care Team Providers Care Corrugator Operator Helper Name Role Phone Rigoberto Us MD Primary Care Provide r Timothy Broussard RN Unavailable [phone] September Unavailable Encounter Details Date Type Department Care Team (Late st Contact Info) Description 10/17/2023 Orders Only [facility] MEDICINE [address] [place] [address] ProviderElmira MD Social History Tobacco Use Types [...] Description 05/03/2025 11:15 AM EST Office Visit [facility] MEDICINE [address] [place] [address] Rigoberto Us MD [address] [place] [address] documented as of this encounter Procedures Procedure [...] documented as of this encounter Care Teams Corrugator Operator Helper Relationship Specialty Start Date End Date Rigoberto Us MD [address] [place] [address] PCP - General Internal Medicine 03/30/18 Timothy Broussard RN [address] [place] [address] 66765 Exterminator TermiteWarp Clamper 12/26/23 04/07/[address] 3rd [place] [address] Gastroenterology 09/09/24 documented as of this encounter
--- OUTSIDE RECORDS SUMMARY | 2025-03-24 11:44 | XMS_ITS | Encounter Summary ---
Author Organization [employer] Address 75 [facility] 7t [place] [address] Care Team Providers Care Manager Internet Retails Sales Name Role Phone Rigoberto Us MD Primary Care Provide r Timothy Broussard RN Unavailable [phone] September Unavailable Reason for Visit * Reason Onset Date Comments Lab Orders 08/30/2022 Encounter Details Date Type Department Care Team (Late st Contact Info) Description 08/30/2022 Telephone [facility] MEDICINE [address] [place] [address] Rigoberto Us MD 230 [place], [place] [phone] Lab Orders Social History Tobacco Use Types [...] - 08/30/2022 11:19 AM EST [place] [place] [facility] [place] requesting an order for a lumbar spine for pt documented in this encounter Plan of Treatment Upcoming Encounters Date Type Department Care Team (Late st Contact Info) Description 05/03/2025 11:15 AM EST Office Visit [facility] MEDICINE [address] [place] [address] Rigoberto Us MD [address] [place] [address] documented as of this encounter Visit Diagnoses Not on filedocumented in this encounter Care Teams Manager Internet Retails Sales Relationship Specialty Start Date End Date Rigoberto Us MD [address] [place] [address] PCP - General Internal Medicine 03/30/18 Timothy Broussard RN [address] [place] [address]478 Account Relationship ManagerEmployer Relations Representative 12/26/23 04/07/[address] [place] [address] Drive 3rd [place] [address] Gastroenterology 09/09/24 documented as of this encounter
--- OUTSIDE RECORDS SUMMARY | 2025-03-24 11:44 | XMS_ITS | Encounter Summary ---
Author Organization [employer] Address [address] [place] [address] 7t [place] [address] Care Team Providers Care Handle Attacher Name Role Phone Rigoberto Us MD Primary Care Provide r September Unavailable Encounter Details Date Type Department Care Team ([facility] Contact Info) Description 09/14/2024 Orders Only [facility] 230 [place], [place] [phone] Provider, MD [place] Social History Tobacco Use [...] Description 05/03/2025 11:15 AM EST Office Visit [facility] MEDICINE 230 [place], [place] [phone] Rigoberto Us MD 230 [place] [address] documented as of this encounter Procedures Procedure [...] AM EDT Narrative 09/30/2024 9:36 AM EDT [address] [address] [address] Scan Report Signed Patient: Avery Ware MR#: [id number] : 1955 Acct:[id number] Age/Sex: 69 / M ADM Date: 09/30/24 Loc: HO.CT Attending Dr: Layton Sterling MD Ordering Physician: Layton Sterling MD Date of Service: 09/30/24 Procedure(s): CT chest wo IV con Accession Number(s): [id number] cc: Rigoberto Madrigal MD; Layton Sterling MD Report Number: [id number]: Total DLP = 146.00 mGy-cm EXAMINATION: CT [...] reconstruction technique. DLP: 146 mGy centimeter. FINDINGS: HORSERADISH MAKER: Volume loss, right lung. Cardiomediastinal structures towards [...] in OV> 09/30/2433 DD/ 6 TD/TT: 09/30/2445 Electrical Machine Builder: Procedure Note Donotuseinterpreter, Image - 09/30/[address] [place] [address] [address] Scan Report Signed Patient: Avery WareMR#: [id number] : 1955cct:[id number] Age/Sex: 69 / MADM Date: 09/30/24 Loc: .CT Attending Dr: Layton Sterling MD Ordering Physician: Layton Sterling MD Date of Service: 09/30/24 Procedure(s): CT chest wo IV con Accession Number(s): [id number] cc: Rigoberto Madrigal MD; Layton Sterling MD Report Number: [id number]: Total DLP = 146.00 mGy-cm EXAMINATION: CT [...] reconstruction technique. DLP: 146 mGy centimeter. FINDINGS: HORSERADISH MAKER: Volume loss, right lung. Cardiomediastinal structures towards [...] MDin OV> 09/30/24 0933 DD/ TD/TT: 09/30/2445 Electrical Machine Builder: [facility] External Provider IMG CT [...] documented as of this encounter Care Teams Handle Attacher Relationship Specialty Start Date End Date Rigoberto Us MD [address] [place] [address] PCP - General Internal Medicine 03/30/[address] [place] [address] 3[address] [place] [address] Gastroenterology 09/09/24 documented as of this encounter
--- OUTSIDE RECORDS SUMMARY | 2025-03-24 11:44 | XMS_ITS | Clinical Summary ---
Author Organization [employer] Address [address] [place] [address] Care Team Providers Care Monomer Recovery Supervisor Name Role Phone Rigoberto Us MD [...] MORNING 90 tablet 1 11/24/19 25 Active ferrous gluconate (Fergon) 324 (38 Fe) MG tablet TAKE 1 TABLET(324 MG) BY MOUTH WITH BREAKFAST 90 tablet 02/08/20 25 Active simvastatin (Zocor) 20 MG tablet TAKE 1 TABLET BY MOUTH EVERY DAY IN THE EVENING 90 tablet 03/11/20 25 Active simvastatin (Zocor) 20 MG tablet TAKE 1 TABLET BY MOUTH EVERY DAY IN THE EVENING 90 tablet 12/08/19 25 025 Discontinued Active Problems Problem Noted Date Diagnosed Date Rectal adenocarcinoma (CMS/HCC) 01/11/2025 Assessment & Plan (01/11/2025 3:38 PM [...] here for a HDF Ad[place] [facility] [place]12[place]16[place]2023 after he presented for evaluation [...] (benign prostatic hyperplasia) 07/17/2023 07/17/2023 Non-ischemic cardiomyopathy (CMS/HCC) 07/17/2023 07/17/2023 Assessment & Plan (09/09/2024 2:03 PM EDT): Under the care of cardiology Assessment & Plan (06/15/2024 12:30 PM EST): Under the care of cardiology Osteoporosis 02/04/2023 Assessment & Plan (06/15/2024 12:20 PM EST): S/P kyphoplasty by IR [place] [facility] 09/20/2022 For pain control I have prescribed Oxycodone Diagnostic work up for secondary causes of osteoporosis unrevealing He is on Calcium and Vitamin D On Tymlos Evaluated by Endocrinology , last seen 05/18/2024. Assessment & Plan (12/02/2023 10:17 AM EDT): S/P kyphoplasty by IR at [facility] 09/20/2022 For pain control I have prescribed Oxycodone Diagnostic work up for secondary causes of osteoporosis unrevealing He is on Calcium and Vitamin D On Tymlos Evaluated by Endocrinology , last seen 08/14/2023 has a follow up in January Assessment & Plan (08/26/2023 11:31 AM EST): S/P kyphoplasty by IR at [facility] [place]/20/2022 For pain control I have prescribed Oxycodone Diagnostic work up for secondary causes of osteoporosis unrevealing He is on Calcium and Vitamin D On Tymlos Evaluated by Endocrinology , last seen 08/14/2023 Assessment & Plan (02/04/2023 11:43 AM EDT): S/P kyphoplasty by IR at [facility] 09/20/2022 For pain control I have prescribed [...] and facet arthritis pt already following w professor of voice receiving Tymlos (abaloparatide)-states was not receiving lately x issues with pharmacy but to resume now -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 -advised to continue w [...] Endocrinology Dr Grant Compression of lumbar vertebra (CMS/HCC) 023 Overview (09/12/2022): Pt interested in Kyphoplasty Assessment & Plan (01/08/2024 1:42 PM EDT): S/P kyphoplasty by IR [place] [facility] 09/20/2022 For pain control I have prescribed Oxycodone but he stopped taking it Today he describes his pain at 7/10 when severe 10/10 Diagnostic work up for secondary causes of osteoporosis unrevealing He is on Calcium and Vitamin D Started on Tymlos, followed by Endocrinology Seen at [facility] On 03/19/23: Kyphon Balloon Kyphoplasty with Insertion of HV-R Bone Cement, L1 and L2 Vertebral Bodies: with 80% relief. Last seen at [facility] 10/24/2023 Scheduled for fluoroscopy guided diagnostic left L3-L4 DR L5 medial branch blocks with local anesthetic. Plan: Continue Flexeril and MS Contin 15 mg po BID risk discussed particularly around somnolence , sedation and counseled about fall prevention Assessment & Plan (12/02/2023 10:20 AM EDT): S/P kyphoplasty by IR at [facility] 09/20/2022 For pain control I have prescribed Oxycodone but he stopped taking it Today he describes his pain at 7/10 when severe 10/10 Diagnostic work up for secondary causes of osteoporosis unrevealing He is on Calcium and Vitamin D Started on Tymlos, followed by Endocrinology Seen at [facility] On 03/19/23: Kyphon Balloon Kyphoplasty with Insertion of HV-R Bone Cement, L1 and L2 Vertebral Bodies: with 80% relief. Last seen at [facility] 10/24/2023 Scheduled for fluoroscopy guided diagnostic left L3-L4 DR L5 medial branch blocks with local anesthetic. Plan: Continue Flexeril Start MS Contin 15 mg po BID risk discussed particularly around somnolence , sedation and counseled about fall prevention Assessment & Plan (04/22/2023 11:28 AM EDT): S/P kyphoplasty by IR at [facility] 09/20/2022 For pain control I have prescribed Oxycodone but he stopped taking it Diagnostic work up for secondary causes of osteoporosis unrevealing He is on Calcium and Vitamin D Started on Tymlos, followed by Endocrinology Seen at [facility] On 03/19/23: Kyphon Balloon Kyphoplasty with Insertion of HV-R Bone Cement, L1 and L2 Vertebral Bodies: with 80% relief. Assessment & Plan (02/04/2023 11:41 AM EDT): S/P kyphoplasty by IR at [facility] 09/20/2022 For pain control I have prescribed [...] is undergoing kyphoplasty by IR at [facility] tomorrow 09/20/2022 For pain control I have [...] work up Compression fracture of T7 vertebra (CMS/HCC) Overview (09/12/2022): Pt interested in Kyphoplasty Assessment & Plan (02/04/2023 11:42 AM EDT): S/P kyphoplasty by IR at [facility] 09/20/2022 For pain control I have prescribed [...] for a f/u He was seen by auto wheel alignment specialist at [facility] He tells me he was given injections [...] BID, He was advised to f/u with Director Of Vital Statistics Pt reports he is still drinking on weekends 3 month f/u Atrial fibrillation (CMS/HCC) 05/29/2022 Assessment & Plan (09/09/2024 2:05 PM [...] a HDF He presented again [place] [facility] [place] 05/[place] until 06/01 with c/o increased [...] Under the care of Moraima Charles at [facility] Assessment & Plan (09/09/2024 2:06 PM EDT): Under the care of Dasia Soni at [facility] Assessment & Plan (12/02/2023 11:34 AM EDT): Under the care of Dasia newell [facility] On Seroquel 300 mg po qhs Bupropion and Trazodone 100 mg po qhs per his report Assessment & Plan (04/22/2023 11:41 AM EDT): Under the care of Dasia newell [facility] On Seroquel 300 mg po qhs Bupropion and Trazodone 100 mg po qhs per his report Assessment & Plan (06/04/2022 9:09 AM EST): Under the care of Dasia newell [facility] On Seroquel 300 mg po qhs [...] EDT): Under the care of Dasia Soni [facility] Serzenonquel nd Trazodone were discontinued in the Hospital due to prolongued Qtc He is now on Sertraline 25 mg po daily Assessment & Plan (01/08/2024 1:41 PM EDT): Under the care of Dasia Soni [facility] Seroquel nd Trazodone were discontinued in the Hospital due to prolongued Qtc He is now on Sertraline 25 mg po daily Assessment & Plan (12/02/2023 11:36 AM EDT): Under the care of Dasia Soni [facility] On Seroquel 300 mg po qhs Bupropion and Trazodone 100 mg po qhs per his report Assessment & Plan (04/22/2023 11:41 AM EDT): Under the care of Dasia Soni [facility] On Seroquel 300 mg po qhs Bupropion and Trazodone 100 mg po qhs per his report Assessment & Plan (06/04/2022 9:09 AM EST): Under the care of Dasia Soni [facility] Tubular adenoma of colon 03/10/2018 Assessment [...] going into A.fib Pt was cleared by Director Of Vital Statistics 06/01 and is awaiting GI appointment for [...] A.fib Pt has now been cleared by Director Of Vital Statistics 06/01 and is awaiting GI appointment for [...] of Trelegy and Ventolin Dr Pisano his pediatric neuropsychologist mentioned in a previous note that patient [...] of Trelegy and Ventolin Dr Pisano his pediatric neuropsychologist mentioned in a previous note that patient [...] scarring related to pneumonia Dr Pisano his pediatric neuropsychologist mentioned in a previous note that patient [...] scarring related to pneumonia Dr Pisano his pediatric neuropsychologist mentioned in a previous note that patient [...] Pt was seen by Dr Pisano his pediatric neuropsychologist 08/2022 he mentioned in his note that [...] Pt was seen by Dr Pisano his pediatric neuropsychologist 08/2022 he mentioned in his note that [...] Pt was seen by Dr Pisano his pediatric neuropsychologist 08/2022 he mentioned in his note that [...] Pt was seen by Dr Pisano his pediatric neuropsychologist 05/21/2022 who recommended a repeat Chest CT [...] Encounters Date Type Department Care Team Description 03/11/[address] [address] Rigoberto Us MD 03/10/2025 Orders Only GENERIC EXTERNAL DATA DEPARTMENT Provider, Generic External Data 02/18/[address] [address] Rigoberto Us MD Appointment Confirmation 02/07/[address] [address] Rigoberto sU MD 01/11/2025 3:00 PM EDT Office Visit [address] [address] Rigoberto Us MD Rectal adenocarcinoma (CMS/HCC) (Primary Dx); Bipolar affective disorder, remission status unspecified (CMS/HCC); Microscopic hematuria 01/11/2025 Travel 01/10/[address] [address] Rigoberto Us MD chart prep 01/06/2025 Orders Only GENERIC EXTERNAL DATA DEPARTMENT Provider, Generic External Data 01/04/2025 Patient Outreach [facility] [address] [place] [address] Rigoberto Us MD Pre-visit Planning (SDOH negative. Tobacco screening negative.) 12/23/2024 Results Follow-Up [facility] [address] [place] [phone] Demi Garcia, pocketed spring machine operator to General Surgery from Last 3 Months Immunizations Immunization Administration [...] Upcoming Encounters Date Type Department Care Team ([facility] st Contact Info) Description 05/03/2025 11:15 AM EST Office Visit [facility] [address] [place] [address] Rigoberto Us MD [address] [place] [address] Health Maintenance Due Date Last Done Comments [...] Procedure Name Priority Date/Time Associated Diagnosis Comments CYTOPATH-CELL ENHANCED Routine 5:47 PM EDT MR PELVIS W AND WO CONTRAST Routine [...] GENERAL SURGERY Routine 12/22/2024 Cyst on ear HM COLONOSCOPY Routine 04/23/2024 LIPID PANEL, STANDARD Routine 03/23/2021 9:05 AM EDT from Last 3 Months or Most Recently Relevant to Health Maintenance Results * Cytopath-cell enhanced (03/10/2025 5:47 PM EDT) 03/10/2025 5:47 PM EDT 03/11/2025 8:30 AM EDT [facility] - 03/14/2025 10:38 AM EDT ----- ------- Name: Avery Ware Age/Sex: 69/M : 1955 Unit#: [id number] Attend Dr: Pearl Whiting [facility] Re03/10/25 Status: [facility] Disch: ----- ------- SPEC : [id number] RECD: 03/11/25 STATUS: AUDRA [facility] NUM: [id number] FRANCOIS: 03/10/[address] [facility] [address]: Pearl Whiting [facility] ENTERED: 03/11/25 SP TYPE: Cytology OTHR DR: Milena Lopez ORDERED: Cyto-enhanced Diagnosis Urine: Negative for high-grade urothelial carcinoma. See comment. COMMENT: Cellular specimen consisting of single urothelial cells with degenerative changes, squamous cells, red blood cells and mixed inflammatory cells. Clinical History Microscopic hematuria Material Received Urine Gross Description Received is 60 cc of clear yellow fluid from which a ThinPrep slide is prepared. IHC S/NG Disclaimer NOTE: Unless otherwise stated, all tissue is formalin-fixed and paraffin-embedded. Some or all of the immunohistochemical tests reported herein may have been developed and their performance characteristics determined by [facility]. They have not been cleared or approved by the U.S. Food and Drug Administration (FDA). However, the FDA has determined that such clearance or approval is not necessary. This laboratory is certified under the Clinical Laboratory Improvement Amendments of 1988 (CLIA) as qualified to perform high complexity clinical laboratory testing. Copies To: Pearl Whiting [facility] [address] [place] [address] Dr. Rosario [address] [place], [place] [phone] [email or web address] Milena Lopez [facility] [address] [place] [address] CONTINUED ON NEXT PAGE ----- ------- Name: Avery Ware Age/Sex: 69/M : 1955 Unit#: [id number] Attend Dr: Pearl Whiting [facility] Re03/10/25 Status: DEP REF Location: .LAB Disch: ----- ------- SPEC : [id number] RECD: 03/11/25 STATUS: AUDRA [facility] NUM: [id number] FRANCOIS: 03/10/[address] [facility] [address]: Pearl Whiting [facility] ENTERED: 03/11/25 SP TYPE: Cytology OTHR : Milena Lopez ORDERED: Cyto-enhanced ----- ------- Signed (signature on file) Kristian Cabral MD 03/14/25 1038 ----- ------- END OF REPORT us Generic External Data Provider LAB CYTOLOGY RODRIGUEZ REID Final Result [facility] [address] [place] [phone] * MR Pelvis w/ and w/o Contrast (01/19/2025 3:07 PM EDT) Anatomical Region Laterality Modality Body, Pelvis Magnetic Resonan ce 01/19/2025 3:07 PM EDT Narrative 01/20/2025 3:07 PM EDT [address] [address] Magnetic Resonance Report Signed Patient: Avery Ware MR#: [id number] : 1955 Acct:[id number] Age/Sex: 69 / M ADM Date: 01/19/25 Loc: HO.MRI Attending Dr: Yulisa Haynes MD Ordering Physician: Yulisa Haynes MD Date of Service: 01/19/25 Procedure(s): MR pelvis wo/w con Accession Number(s): [id number] cc: Yulisa Haynes MD; Rigoberto Madrigal MD [...] is mural thickening involving the posterior half [place] of upper rectal wall with wall thickening [...] 01/20/25 1505 DD/ 1507 TD/TT: 01/19/25 1534 Electrical Logging Operator: JESSIE Procedure Note Donotuseinterpreter, Image - 01/20/[address] [address] Magnetic Resonance Report Signed Patient: Avery WareMR#: [id number] : 4Acct:[id number] Age/Sex: 69 / MADM Date: 01/19/25 Loc: HO.MRI Attending Dr: Yulisa Haynes MD Ordering Physician: Yulisa Haynes MD Date of Service: 01/19/25 Procedure(s): MR pelvis wo/w con Accession Number(s): [id number] cc: Yulisa Haynes MD; Rigoberto Madrigal MD [...] is mural thickening involving the posterior half [place] of upper rectal wall with wall thickening [...] 01/20/25 1505 DD/ 1507 TD/TT: 01/19/25 1534 Electrical Logging Operator: JESSIE us [facility] External Provider IMG MRI PROCEDURES Final Result * PSA, Total With Reflex to PSA, Free (01/06/2025 9:52 AM EDT) PSA,Total (Free>4and<10) 0.46 0.00 - 4.00 ng/mL [facility] Comment:A Free PSA was not [...] Provider LAB BLOOD ORDERAB LES Final Result [facility] [address] [place] [phone] * (ABNORMAL) CBC auto differential (01/06/2025 9:52 AM EDT) White Blood Count 8.8 4.8 - 10.8 X10*3/uL [facility] Red Blood Count 5.11 4.60 - 5.80 X10*6/uL [facility] Hemoglobin 15.6 14.0 - 18.0 g/dl [facility] Hematocrit 46.7 42.0 - 52.0 % [facility] Mean Corpuscular Volume 91.4 80.0 - 98.0 fL [facility] Mean Corpuscular Hemoglobin 30.5 27.0 - 33.0 pg [facility] Mean Corpuscular HGB Conc 33.4 31.0 - 36.0 g/dl [facility] Red Cell Distribution Width 12.9 11.0 - 16.0 % [facility] Platelet Count 206 160 - 400 X10*3/uL [facility] Mean Platelet Volume 9.7 9.4 - 12.4 fL [facility] Neutrophils Percent Auto 80.9(H) 45 - 73 % [facility] Imm Gran Pct Auto 0.3 0.0 - 0.4 % [facility] Lymphocytes Percent Auto 12.5(L) 20 - 40 % [facility] Monocytes Percent Auto 5.2 2 - 11 % [facility] Eosinophils Percent Auto 0.8 0 - 4 % [facility] Basophils Percent Auto 0.3 0 - 2 % [facility] NRBC Pct Auto 0.0 0.0 - 0.2 /100WBC [facility] Neutrophils Absolute Auto 7.1 2.0 - 8.3 x10*3/uL [facility] Imm Gran Abs Auto 0.03 0.00 - 0.03 X10*3/uL [facility] Lymphocytes Absolute Auto 1.1(L) 1.2 - 4.9 X10*3/uL [facility] Monocytes Absolute Auto 0.5 0.1 - 1.2 X10*3/uL [facility] Eosinophils Absolute Auto 0.1 0.0 - 0.4 X10*3/uL [facility] Basophils Absolute Auto 0.0 0.0 - 0.2 X10*3/uL [facility] NRBC Abs Auto 0.000 0.0 - 0.012 X10*3/uL [facility] Blood Venous blood specimen / Unknown 01/06/2025 9:52 AM EDT 01/06/2025 9:52 AM EDT [facility] ORDERABLES Final Res ult Performing Organization Address [facility]/ZIP Co de Phone Number [facility] [address] [place] [phone] * Iron And Total Iron Binding Capacity (01/06/2025 9:52 AM EDT) Iron 96 45 - 160 mcg/dL [facility] Total Iron Binding Capacity 259 228 - 428 mcg/dL [facility] Percent Iron Saturation 37 15 - 50 % [facility] Unsaturated Iron Binding 163 ug/dL [facility] Blood Venous blood specimen / Unknown 01/06/2025 9:52 AM EDT 01/06/2025 9:52 AM EDT [facility] LAB BLOOD ORDERABLES Final Res ult Performing Organization Address [facility] de Phone Number [facility] [address] [place] [phone] * Testosterone, Free (Dialysis) And Total, MS (01/06/2025 9:52 AM EDT) Testosterone, Total 356 250 - 1100 ng/dL [facility] Comment:Men with clinically significant hypogonadalsymptoms and testosterone values repeatedly inthe range of the 200-300 ng/dL or less, maybenefit from testosterone treatment afteradequate risk and benefits counseling.For additional information, please refer tohttp://education.[employer]/faq/AdjdrYuehrkxxwcweNJZQCRMSF996(This link is being provided for informational/educational purposes only.)This test was developed and its analytical performancecharacteristics have been determined by [employer] [place], [place]. It hasnot been cleared or approved by the U.S. Food and DrugAdministration. This assay has been validated pursuantto the CLIA regulations and is used for clinicalpurposes. Testosterone, Free 35.6 30.0 - 135.0 pg/mL [facility] Comment:This test was develo ped and its analytical performancecharacteristics have been determined by [employer] [place], [place]. It hasnot been cleared or approved by the .. Food and DrugAdministration. This assay has been validated pursuantto the CLIA regulations and is used for clinicalpurposes.THIS TEST WAS PERFORMED AT:[employer] [id number] [place] [id number] RUBIO MD,PHD 01/06/2025 9:52 AM EDT 01/06/2025 9:52 AM EDT us Generic External Data Provider LAB BLOOD ORDERAB LES Final Result [facility] [address] [place] [address] [phone] * (ABNORMAL) Comprehensive Metabolic Panel (01/06/2025 9:52 AM EDT) Sodium 142 135 - 145 mmol/L [facility] Potassium 3.5 3.3 - 5.1 mmol/L [facility] Chloride 108 96 - 108 mmol/L [facility] Carbon Dioxide 27 22 - 29 mmol/L [facility] Anion Gap 11(L) 12 - 20 [facility] Urea Nitrogen (BUN) 11 9 - 16 mg/dL [facility] Creatinine, Serum 0.78 0.5 - 1.4 mg/dL [facility] Estimated Glomerular Filt Rate >60 [facility] Comment:Chronic Kidney Disea se: Estimated GFR < 60 mL/min/1.78n3Hnoebo Kidney Disease: Estimated GFR < 15 mL/min/1.73m2 Glucose 97 60 - 115 mg/dL [facility] Calcium 8.6 8.4 - 10.2 mg/dL [facility] Bilirubin, Total 0.7 0.0 - 1.0 mg/dL [facility] Aspartate Amino Transferase 16 5 - 37 U/L [facility] Alanine Aminotransferase 18 0 - 40 U/L [facility] Total Protein 7.4 6.5 - 8.0 g/dL [facility] Albumin Level 4.1 3.5 - 5.0 g/dL [facility] Alkaline Phosphatase 62 39 - 117 U/L [facility] Blood Venous blood specimen / Unknown 01/06/2025 9:52 AM EDT 01/06/2025 9:52 AM EDT Milena Lopez SPORTS INFORMATION DIRECTOR LAB BLOOD ORDERABLES Final Res ult [facility] [address] [place] [phone] * Referral to General Surgery (12/22/2024) [facility]udaer[facility] OUTPATIENT REFERRAL ORDER YULISA Final Result * Colonoscopy (04/23/2024) [facility] Colonoscopy Normal Normal Historical Provider MD HEALTH MAINTENANCE Final Result * LIPID PANEL, STANDARD (03/23/2021 9:05 AM EDT) [facility] Chol/HDLC Ratio 2.9 <5.0 (calc) [facility] [...] equation in the estimation of LDL-C. Rodolfo MURO et al. OLIVIER. 2013;310(19): 4863-0054 (http://education.[employer].com/faq/JSW469) Non-HDL Cholesterol 100 <130 mg/dL (calc) [facility] Comment: For patients with diabetes plus 1 major ASCVD risk factor, treating to a non-HDL-C goal of <100 mg/dL (LDL-C of <70 mg/dL) is considered a therapeutic option. Triglycerides 78 <150 mg/dL [facility] 03/23/2021 9:05 AM EDT us Rigoberto Ramirez MD LAB BLOOD ORDERABLES Final Result [facility] [address] from Last 3 Months or Most Recently Relevant to Health Maintenance Insurance [facility] STANDARD MEDICARE Care Teams Monomer Recovery Supervisor Relationship Specialty Start Date End Date Rigoberto Us MD [address] [place] [phone] PCP - General Internal Medicine 03/30/18September [address] [place] [address] [address] [place] [address] Gastroenterology 09/09/24
--- OUTSIDE RECORDS SUMMARY | 2025-03-24 11:44 | XMS_ITS | Encounter Summary ---
Author Organization [employer] Address [address] [place] [address] Care Team Providers Care Legal Specialist Name Role Phone Rigoberto Us MD Primary Care Provide r Timothy Broussard RN Unavailable [phone] September Unavailable Reason for Visit * Reason Onset Date Comments Reschedule 01/12/2024 Encounter Details Date Type Department Care Team (Late st Contact Info) Description 01/12/2024 Telephone [facility] [address] [place], [place] [phone] Rigoberto Us MD [address] [place], [place] [phone] Reschedule Social History Tobacco Use Types Packs/Day [...] EDT Tc from sister calling 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 documented in this encounter Plan of Treatment Upcoming Encounters Date Type Department Care Team (Late st Contact Info) Description 05/03/2025 11:15 AM EST Office Visit [facility] [address] [place] [address] Rigoberto Us MD [address] [place] [address] documented as of this encounter Visit Diagnoses Not on filedocumented in this encounter Additional Health Concerns Assessment Noted Time PHQ-9 Depression Total Score: 8 08/26/19 24 11:49 AM EST documented as of this encounter Care Teams Legal Specialist Relationship Specialty Start Date End Date Rigoberto Us MD [address] [place] [phone] PCP - General Internal Medicine 03/30/18 Timothy Broussard RN [address] [place] [address] Electronic Sensing Equipment AssemblerService Liaison Representative 12/26/23 04/07/[address] [place] [address] 3rd [place] [address] Gastroenterology 09/09/24 documented as of this encounter
--- OUTSIDE RECORDS SUMMARY | 2025-03-24 11:44 | XMS_ITS | Clinical Summary ---
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 2022 Atrial fibrillation 05/29/2022 Bipolar disorder 10/06/2018 Chronic obstructive lung disease 07/22/2016 Glaucoma 07/22/2016 Encounters Date Type Department Care Team Description 03/15/2025 12:00 PM EDT Office Visit [facility] Rad Onc [address] [place] [address] Arnel Carson MD Verea, Armando Malignant neoplasm of rectum (Primary Dx) 03/15/2025 Telephone [facility] Rad Onc [address] [place] [address] [facility] 03/15/2025 Documentation [facility] Rad Onc [address] [place] [address] 67383 Eula Kelly RN 03/10/2025 Refill [facility] [address] Floor, [address] [place] [address] Tamiko Howard MA Medication Refill 02/16/2025 11:00 AM EDT Office Visit [facility] Rad Onc [address] [place] [address] Arnel Carson MD Miranda-Leon, Wisinley Malignant neoplasm of rectum (Primary Dx) 01/27/2025 Ancillary Orders [facility] [address] [place] [address] Tammy, Tammy, 01/26/2025 Ancillary Orders [facility] [address] [place] [address] Unknown, Unknown, 01/20/2025 - 01/20/2025 11:59 PM EDT Hospital Encounter [facility] [address] [place] [address] Unknown, Unknown, MD Discharge Disposition: Home or Self Care 01/19/2025 - 01/19/2025 11:59 PM EDT Hospital Encounter [facility] [address] [place] [address] Unknown, Tammy, MD Discharge Disposition: Home or Self Care [...] Description 03/30/2025 10:15 AM EDT Office Visit [facility] [address] [facility] [address]rd Floor, [address] [place] [address] Fransisco Nguyen DO [address] [place] [phone] [email or web address] Taras Alfaro [address] [place] [address] 03/30/2025 12:50 PM EDT Treatment [facility] Rad Onc [address] [place] [address] Arnel Carson MD [address] [place] [address] [email or web address] 03/30/2025 1:00 PM EDT Office Visit [facility] Rad Onc [address] [place] [address] Arnel Carson MD [address] [place] [phone] [email or web address] BettinaShiraFabian Evanssadi [address] [place] [address] [email or web address] 03/31/2025 1:40 PM EDT Treatment [facility] Rad Onc [address] [place] [address] Arnel Carson MD [address] [place] [address] [email or web address] 04/01/2025 1:40 PM EDT Treatment [facility] Rad Onc [address] [place] [address] 85[address] Arnel Carson MD [address] [place] [address] [email or web address] 04/05/2025 1:50 PM EDT Treatment [facility] Rad Onc [address] [place] [address] Arnel Carson MD [address] [place] [address] 587[address] [email or web address] 04/06/2025 1:40 PM EDT Treatment [facility] Rad Onc [address] [place] [address] Arnel Carson MD [address] [place] [address] 677[address] [email or web address] 04/07/2025 1:40 PM EDT Treatment [facility] Rad Onc [address] [place] [address] Arnel Carson MD [address] [place] [address] [email or web address] 04/08/2025 1:40 PM EDT Treatment [facility] Rad Onc [address] [place] [address] Arnel Carson MD [address] [place] [address] 18321 [email or web address]@[email or web address] 04/11/2025 1:40 PM EDT Treatment [facility] Rad Onc [address] [place] [address] Arnel Carson MD [address] [place] [address] 43174 [email or web address] 04/12/2025 1:40 PM EDT Treatment [facility] Rad Onc [address] [place] [address] Arnel Carson MD [address] [place] [address] 41168 [email or web address] 04/13/2025 1:40 PM EDT Treatment [facility] Rad Onc [address] [place] [address] 65[address] Arnel Carson MD [address] [place] [address] 45560 [email or web address] 04/14/2025 1:30 PM EDT Treatment [facility] Rad Onc [address] [place] [address] Arnel Carson MD [address] [place] [address] 7[address] [email or web address]@[facility] 04/15/2025 1:40 PM EDT Treatment [facility] Rad Onc [address] [place] [address] Arnel Carson MD [address] [place] [address] 75252 [email or web address] 04/18/2025 1:40 PM EDT Treatment [facility] Rad Onc [address] [place] [address] Arnel Carson MD [address] [place] [address] 19294 [email or web address]@[facility] 04/19/2025 1:40 PM EDT Treatment [facility] Rad Onc [address] [place] [address] Anrel Carson MD [address] [place] [address] 23262 [email or web address] 04/20/2025 1:40 PM EDT Treatment [facility] Rad Onc [address] [place] [address] Arnel Carson MD [address] [place] [address] 33755 [email or web address]@[email or web address] 04/21/2025 1:40 PM EDT Treatment [facility] Rad Onc [address] [place] [address] Arnel Carson MD [address] [place] [address] 16444 [email or web address] 04/22/2025 1:40 PM EDT Treatment [facility] Rad Onc [address] [place] [address] Arnel Carson MD [address] [place] [address] 63440 [email or web address]@[facility] 04/25/2025 1:40 PM EST Treatment [facility] Rad Onc [address] [place] [address] Arnel Carson MD [address] [place] [address] [id number] [email or web address]@[email or web address] 04/26/2025 1:40 PM EST Treatment [facility] Rad Onc [address] [place] [address] 89287 Arnel Carson MD [address] [place] [address] 93680 [email or web address]@[facility] 04/27/2025 1:40 PM EST Treatment [facility] Rad Onc [address] [place] [address] 81507 Arnel Carson MD [address] [place] [address] 98841 [email or web address]@[email or web address] 04/28/2025 1:40 PM EST Treatment [facility] Rad Onc [address] [place] [address] Arnel Carson MD [address] [place] [address] 01883 [email or web address] 04/29/2025 1:40 PM EST Treatment [facility] Rad Onc [address] [place] [address] Arnel Carson MD [address] [place] [address] 11879 [email or web address]@[facility] 05/02/2025 1:40 PM EST Treatment [facility] Rad Onc [address] [place] [address] Arnel Carson MD [address] [place] [address] 27698 [email or web address] 05/03/2025 1:40 PM EST Treatment [facility] Rad Onc [address] [place] [address] Arnel Carson MD [address] [place] [address] 52054 [email or web address] 05/04/2025 1:40 PM EST Treatment [facility] Rad Onc [address] [place] [address] 49712 Arnel Carson MD [address] [place] [address] 95693 [email or web address]@[email or web address] 05/05/2025 1:40 PM EST Treatment [facility] Rad Onc [address] [place] [address] 72565 Arnel Carson MD [address] [place] [address] 32298 [email or web address] 05/06/2025 1:40 PM EST Treatment [facility] Rad Onc [address] [place] [address] 67441 Arnel Carson MD [address] [place] [address] 40155 [email or web address]@[email or web address] 05/09/2025 1:40 PM EST Treatment [facility] Rad Onc [address] [place] [address] 11638 Arnel Carson MD [address] [place] [address] [phone] [email or web address] Health Maintenance Due Date Last Done [...] Interpretation) (01/20/2025 12:00 AM EDT) Narrative Record, - 01/27/2025 10:33 AM EDT This study is [...] & B Member Subscriber Plan / Payer ( fective 2019-Present) Name:Avery Ware Member ID:[id number] Relation to Subscriber:Self Name:Avery Ware Subscriber ID:[id number] Payer ID:[id number] Group ID:Not on file Type:Medicare Address: [facility] [employer] [facility] [address] [place] [phone] [facility] MEDICARE PART A & B Member Subscriber Plan / Payer (Ef fective 2019-Present) Name:Avery Ware Member ID:[id number] Relation to Subscriber:Self Name:Avery Ware Subscriber ID:[id number] Payer ID:[id number] Group ID:Not on file Type:Medicare Address: [facility] [employer] [facility] [address] [place], [place] [address]HEALTH MEDICARE PART A & B Member Subscriber Plan / Payer (Ef fective 2019-Present) Name:Avery Ware Member ID:[id number] Relation to Subscriber:Self Name:Avery Ware Subscriber ID:[id number] Payer ID:[id number] Group ID:Not on file Type:Medicare Address: [facility] [employer] [facility] [address] [place] [address]HEALTH MEDICARE PART A & B [place] & B [facility] Care Teams Rail Detector Car Operator Relationship Specialty Start Date End Date Rigoberto Madrigal MD [address] [place] [address] [address] [place] [phone] [email or web address] PCP - General Internal Medicine 01/26/25 Yulisa Haynes MD [address] [place] [address] [place] [address] [email or web address] 02/16/25 Don Gonzales MD [address] [place] [address] [place] [address] General Surgery 02/16/25 Additional Source Comments The information contained in this document represents components of the legal health record. It is not the complete legal health record.[facility]
== END 2025-03-24 10:53 | disposition home or self-care (01) ==
LOC: HO.HPS 10:18
PROVIDERS: PCP Nurse Practitioner Family; Visit Provider Hospitalist
DX: J96.11 Chronic respiratory failure with hypoxia (principal); R91.8 Other nonspecific abnormal finding of lung field; J43.2 Centrilobular emphysema; R06.09 Other forms of dyspnea
CPT/HCPCS: 99214; G2211

== ENCOUNTER → 2025-03-24 10:18 | Outpatient (BNVA) | payer MEDICARE, MEDICAID, SELFPAY | PROVIDERS: PCP Nurse Practitioner Family; Visit Provider Hospitalist | DX: J96.11 Chronic respiratory failure with hypoxia (principal); R91.8 Other nonspecific abnormal finding of lung field; J43.2 Centrilobular emphysema; Z99.81 Dependence on supplemental oxygen | CPT/HCPCS: 99212 ==

== ENCOUNTER 2025-04-08 07:45 | Outpatient (REF) | payer MEDICARE, MEDICAID, SELFPAY ==
--- OUTSIDE RECORDS SUMMARY | 2025-04-06 13:50 | XMS_ITS | Encounter Summary ---
Author Organization [facility] Address [address] [place] [address] Phone Care Team Providers Care Ground Support Equipment Fitter Name Role Phone Rigoberto Madrigal MD Primary Care Provide r Yulisa Haynes MD Unavailable [phone] Don Gonzales MD Unavailable [phone] Reason for Visit * Reason Comments Weekly Visit Malignant neoplasm o f rectum Encounter Details Date Type Department Care Team (Latest Contact Info) Description 04/06/2025 1:50 PM EDT Procedure visit [facility] Rad Onc [address] [place] [address] Arnel Carson MD [address] [place] [address] [email or web address] Malignant neoplasm of rectum (Primary Dx) Social [...] Sign Reading Time Taken Comments Blood Pressure 120/73 04/06/2025 1:57 PM EDT Pulse 73 04/06/2025 1:57 PM EDT Temperature - - Respiratory Rate - - Oxygen Saturation 97% 04/06/2025 1:57 PM EDT Inhaled Oxygen Concentration - - Weight - - Height - - Body Mass Index - - documented in this encounter Progress Notes * Eula Kelly RN - 04/06/2025 1:50 PM EDT Fatigue: denies Pain (intensity 1-10): denies Pain management (meds): tylenol prn Skin/products used: will start using aquafor Steroid name + dosage: na Urination: wnl Bowels: move daily, no diarrhea N+V: denies Diet: regular Date of last WBC: reaching out to Ivy's office to see if they are doing weekly labs * Arnel Carson MD - 04/06/2025 1:50 PM EDT Radiation Oncology Weekly Treatment Management Note Name: Avery Soni Date of : 1955 Ref MD: Ivy Diagnosis: Rectal CA Concise Oncologic History: This is a 69 y.o. male with above Dx Treatment: neoadj chemoRT Dose Information Concurrent Tx: Xeloda Current Treatment Documentation Date: 04/06/25 Treatment site: Rectum PTV, Pelvis LNs Dose received through today's treatment (cGy): 1000 Planned total dose (cGy): 5000 Fraction number through today's treatment: 5 Total planned number of fractions: 25 Interval History: Complains of 1) none 2) Fatigue: none Pain Assessment: Intensity: none Location: Performance Status: ECOG performance status: 1- Restricted in physically strenuous activity but ambulatory and able to carry out work of a light or sedentary nature, e.g., light house work, office work Physical Exam: No acute distress. Anxiety: none Skin: ok Assessment and Plan of Care: Tolerating radiation therapy well. Reviewed recommendations for: bowel and bladder management nutrition/dietary We will CONTINUE the current course of radiation therapy as planned. New prescriptions: none Technical Evaluation Dose: The graphic plan was reviewed and is acceptable Patient Set up: The patient set up was reviewed and is acceptable Set up Images: The daily set up images were reviewed, any adjustments reviewed, and are acceptable Arnel Carson MD Radiation Oncology documented in this encounter Plan of Treatment Upcoming Encounters Date Type Department Care Team (Late st Contact Info) Description 03/30/2025 Procedure Pass Echo [facility] [address] [place] [address] 04/08/2025 2:00 PM EDT Treatment [facility] Rad Onc [address] [place] [address] Arnel Carson MD [address] [place] [address] [phone] [email or web address] Lydia Crawford [address] [place] [address] 04/11/2025 1:30 PM EDT Treatment [facility] Rad Onc [address] [place] [address] 37816 Arnel Carson MD [address] [place] [address] [phone] [email or web address] 04/11/2025 1:50 PM EDT Procedure visit [facility] Rad Onc [address] [place] [address] 50944 Arnel Carson MD [address] [place] [address] [phone] [email or web address] 04/12/2025 1:40 PM EDT Treatment [facility] Rad Onc [address] [place] [address] Arnel Carson MD [address] [place] [address] 80514 [email or web address]@[facility] 04/13/2025 1:40 PM EDT Treatment [facility] Rad Onc [address] [place] [address] 44198 Arnel Carson MD [address] [place] [address] 11140 [email or web address] 04/14/2025 1:30 PM EDT Treatment [facility] Rad Onc [address] [place] [address] 53079 Arnel Carson MD [address] [place] [address] 49773 [email or web address]@[facility] 04/15/2025 1:40 PM EDT Treatment [facility] Rad Onc [address] [place] [address] 28471 Arnel Carson MD [address] [place] [address] [id number] [email or web address] 04/18/2025 1:40 PM EDT Treatment [facility] Rad Onc [address] [place] [address] 74952 Arnel Carson MD [address] [place] [address] 52872 [email or web address] 04/18/2025 1:50 PM EDT Procedure visit [facility] Rad Onc [address] [place] [address] 45766 Arnel Carson MD [address] [place] [address] 34[address] [email or web address] BettinaShiraFabian Evanssadi [address] [place] [address] [email or web address] 04/19/2025 1:40 PM EDT Treatment [facility] Rad Onc [address] [place] [address] 61535 Arnel Carson MD [address] [place] [address] 49763 [email or web address]@[facility] 04/20/2025 1:40 PM EDT Treatment [facility] Rad Onc [address] [place] [address] 78807 Arnel Carson MD [address] [place] [address] 42228 [email or web address] 04/21/2025 1:40 PM EDT Treatment [facility] Rad Onc [address] [place] [address] 50259 Arnle Carson MD [address] [place] [address] 52030 [email or web address]@[facility] 04/22/2025 1:40 PM EDT Treatment [facility] Rad Onc [address] [place] [address] Arnel Carson MD [address] [place] [address] [id number] [email or web address] 04/25/2025 1:40 PM EST Treatment [facility] Rad Onc [address] [place] [address] 52502 Arnel Carson MD [address] [place] [address] 25993 [email or web address] 04/25/2025 1:50 PM EST Procedure visit [facility] Rad Onc [address] [place] [address] Arnel Carson MD [address] [place] [address] 46788 [email or web address] 04/26/2025 1:40 PM EST Treatment [facility] Rad Onc [address] [place] [address] 86663 Arnel Carson MD [address] [place] [address] [phone] [email or web address]@[facility] 04/27/2025 1:40 PM EST Treatment [facility] Rad Onc [address] [place] [address] 05801 Arnel Carson MD [address] [place] [address] 48498 [email or web address] 04/28/2025 1:40 PM EST Treatment [facility] Rad Onc [address] [place] [address] 95748 Arnel Carson MD [address] [place] [address] [phone] [email or web address] 04/29/2025 1:40 PM EST Treatment [facility] Rad Onc [address] [place] [address] Arnel Carson MD [address] [place] [address] [id number] [email or web address]@[facility] 05/02/2025 1:40 PM EST Treatment [facility] Rad Onc [address] [place] [address] 93570 Arnel Carson MD [address] [place] [address] [phone] [email or web address] 05/02/2025 1:50 PM EST Procedure visit [facility] Rad Onc [address] [place] [address] Arnel Carson MD [address] [place] [address] [id number] [email or web address] 05/03/2025 1:40 PM EST Treatment [facility] Rad Onc [address] [place] [address] 43756 Arnel Carson MD [address] [place] [address] 37890 [email or web address] 05/04/2025 1:40 PM EST Treatment [facility] Rad Onc [address] [place] [address] 18545 Arnel Carson MD [address] [place] [address] [id number] [email or web address]@[facility] 05/04/2025 1:50 PM EST Procedure visit [facility] Rad Onc [address] [place] [address]241 Arnel Carson MD [address] [place] [address] [phone] [email or web address] 06/03/2025 11:30 AM EST Appointment [facility] [address] 3rd [place] [address] Franssico Nguyen DO [address] [facility] [address] [place] [address] 06/13/2025 10:00 AM EST Appointment Echo Lab [address] [place] [address] Fransisco Nguyen, [address] [facility] [address] [place] [address] 06/15/2025 10:00 AM EST Appointment [facility] [place] [place] [address] Fransisco Nguyen, [address] [place] [address] 07/26/2025 10:30 AM EST Office Visit [facility] [address], [address] [place] [address] Fransisco Nguyen, [address] [place] [phone] documented as of this encounter Visit Diagnoses Diagnosis Malignant neoplasm of rectum- Primary documented in this encounter Care Teams Ground Support Equipment Fitter Relationship Specialty Start Date End Date Rigoberto Madrigal MD [address] [facility] [address] [place] [address] PCP - General Internal Medicine 01/26/25 Yulisa Haynes MD [address] [place] [address] [email or web address] 02/16/25 Don Gonzales MD [address] [place] [address] [place] [address] General Surgery 02/16/25 documented as of this encounter Additional Source Comments The information contained in this document represents components of the legal health record. It is not the complete legal health record.[facility]
--- OUTSIDE RECORDS SUMMARY | 2025-04-08 07:47 | XMS_ITS | Encounter Summary ---
Author Organization [employer] Address [address] [facility] 7t [place] [address] Care Team Providers Care Director Product Safety Name Role Phone Rigoberto Us MD Primary Care Provide r Timothy Broussard RN Unavailable [phone] September Unavailable Encounter Details Date Type Department Care Team (Late Contact Info) Description 10/31/2022 Abstract [facility] [address] [place] [address] Rigoberto Us MD [address] [place] [address] [phone] Social History Tobacco Use Types Packs/Day Years [...] Description 05/03/2025 11:15 AM EST Office Visit [facility] [address] [place] [address] [phone] Rigoberto Us MD [address] [place] [address] [phone] documented as of this encounter Visit Diagnoses Not on filedocumented in this encounter Care Teams Director Product Safety Relationship Specialty Start Date End Date Rigoberto Us MD [address] [place] [address] PCP - General Internal Medicine 03/30/18 Timothy Broussard RN [address] [place] [address] 14373 Modular Set Crew MemberTeacher Citizenship 12/26/23 04/07/[address] [place] [address] 3rd [place] [address] Gastroenterology 09/09/24 documented as of this encounter
--- OUTSIDE RECORDS SUMMARY | 2025-04-08 07:47 | XMS_ITS | Encounter Summary ---
Author Organization [employer] Address [address] [facility] [address] 7t [place] [address] Care Team Providers Care French Weaver Name Role Phone Rigoberto Us MD Primary Care Provide r Timothy Broussard RN Unavailable [phone] September Unavailable Encounter Details Date Type Department Care Team (Late st Contact Info) Description 10/17/2023 Orders Only [facility] [address] [place] [address] ProviderElmira MD Social History Tobacco Use Types [...] your housing situation today? I have yasmeen jeninngs 07/14/[address] you li [...] Description 05/03/2025 11:15 AM EST Office Visit [facility] [address] [place] [address] Rigoberto Us MD [address] [place] [address] documented as of this encounter Procedures Procedure [...] documented as of this encounter Care Teams French Weaver Relationship Specialty Start Date End Date Rigoberto Us MD [address] [place] [address] PCP - General Internal Medicine 03/30/18 Timothy Broussard RN [address] [place] [address] 36[address] Programmer Numerical ControlReconsignment Clerk 12/26/23 04/07/[address] 3rd [place] [address] Gastroenterology 09/09/24 documented as of this encounter
--- OUTSIDE RECORDS SUMMARY | 2025-04-08 07:47 | XMS_ITS | Clinical Summary ---
Author Organization [facility] Address [address] [place] [address] Phone Care Team Providers Care Pipelines Manager Name Role Phone Rigoberto Madrigal MD Primary Care Provide r Yulisa Haynes MD Unavailable [phone] Don Gonzales MD Unavailable [phone] Allergies No known active allergies Medications sucralfate (CARAFATE) 1 gram tabletIndications: Erosive Esophagitis Take 1 g by mouth 4 (four) times a day. Indications: Erosive Esophagitis Active latanoprost (XALATAN) 0.005 % ophthalmic solution Place 1 drop into each eye nightly at bedtime. Active simvastatin (ZOCOR) 20 MG tabletIndications: hyperlipidemia Take 20 mg by mouth nightly at bedtime. Indications: excessive fat in the blood Active ferrous gluconate 256 mg (28 mg elemental) Tab Take 324 mg by mouth daily with breakfast. Active ascorbic acid, vitamin C, (VITAMIN C) 250 MG tablet Take 250 mg by mouth daily. Active sotaloL (BETAPACE) 80 MG tablet Take 80 mg by mouth 2 (two) times a day. Active sertraline (ZOLOFT) 25 MG tabletIndications: anxiety with depression Take 25 mg by mouth daily. Indications: anxiousness associated with depression Active traZODone (DESYREL) 50 MG tablet Take [...] mg by mouth daily. At Bedtime Active capecitabine (XELODA) 150 MG tablet Take by mouth 2 (two) times a day Active capecitabine (XELODA) 500 MG tablet Take 1,500 mg by mouth 2 (two) times a day Active ondansetron (ZOFRAN-ODT) 4 MG disintegrating tablet DISSOLVE 1 TABLET ON THE TONGUE EVERY 6 HOURS NEEDED FOR NAUSEA 03/17/20 25 Active TRELEGY ELLIPTA 100-62.5-25 mcg inhalation powder Inhale 1 puff into the lungs daily. 03/03/20 25 Active omeprazole (PRILOSEC) 20 MG capsule Take 1 capsule by mouth 2 (two) times a day. 03/23/20 25 Active tadalafiL (CIALIS) 5 MG tablet Take 1 tablet by mouth every morning. 03/14/20 25 Active furosemide (LASIX) 20 MG tablet Take 1 tablet (20 mg total) by mouth daily. 90 tablet 3 04/06/20 25 Active apixaban (ELIQUIS) 5 mg tablet Take 1 tablet (5 mg total) by mouth 2 (two) times a day. 180 tablet 3 04/06/20 25 Active furosemide (LASIX) 20 MG tablet Take 20 mg by mouth daily. 025 Discontin ued(Reord er) apixaban (ELIQUIS) 5 mg tablet Take 5 mg by mouth 2 (two) times a day. 025 Discontin ued(Reord er) Active Problems Problem Noted Date Diagnosed Date Shortness of breath 03/30/2025 Assessment & Plan (03/30/2025 10:38 AM EDT): He has chronic shortness of breath from COPD and does take oxygen on a regular basis Malignant neoplasm of rectum 02/16/2025 Cancer Staging:Clinical:Stage I(cT2, cN0, cM0) - Signed by Arnel Carson MD on 02/16/2025 Chronic idiopathic constipation 07/17/2023 Assessment & Plan (03/30/2025 10:38 AM EDT): He is getting chemo and radiation therapy for localized colon cancer Irritable bowel syndrome with constipation 11/22 Hypertensive heart disease with heart failure Assessment & Plan (03/30/2025 10:37 AM EDT): Blood pressure is well-controlled to the guidelines Alcohol dependence, uncomplicated 11/21/2022 Non-ischemic cardiomyopathy 11/21/2022 Overview (03/30/2025): He is known to have a cardiomyopathy but way overdue for an echo which I ordered for him Assessment & Plan (03/30/2025 10:37 AM EDT): If he has LV dysfunction we will need to make sure he is on guideline directed medical therapy. 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 2022 Atrial fibrillation 05/29/2022 Bipolar disorder 10/06/2018 Chronic obstructive lung disease 07/22/2016 Glaucoma 07/22/2016 Encounters Date Type Department Care Team Description 04/06/2025 1:50 PM EDT Procedure visit [facility] Rad Onc [address] [place] [address] Arnel Carson MD Malignant neoplasm of rectum (Primary Dx) 04/06/2025 Refill [facility] [address] 3rd Floor, [address] [place] [address] Fransisco Nguyen, DO Medication Refill 03/30/2025 1:00 PM EDT Office Visit [facility] Rad Onc [address] [place] [address] Arnel Carson MD Miranda-Leon, Wisinley Malignant neoplasm of rectum (Primary Dx) 03/30/2025 10:15 AM EDT Office Visit [facility] [address] 3[address] Floor, [address] [place] [address] Fransisco Nguyen DO Atrial fibrillation (Primary Dx); Shortness of breath; Non-ischemic cardiomyopathy; Hypertensive heart disease with heart failure; Chronic idiopathic constipation 03/15/2025 12:00 PM EDT Office Visit [facility] Rad Onc [address] [place] [address] Arnel Carson MD Verea, Armando Malignant neoplasm of rectum (Primary Dx) 03/15/2025 Telephone [facility] Rad Onc [address] [place] [address] Arnel Carson MD [facility] 03/15/2025 Documentation [facility] Rad Onc [address] [place] [address] Eula Kelly RN 03/10/2025 Refill [facility] [address], [address] [place] [address] [place], [place] Medication Refill 02/16/2025 11:00 AM EDT Office Visit [facility] Rad Onc [address] [place] [address] Arnel Carson MD Miranda-Leon, Wisinley Malignant neoplasm of rectum (Primary Dx) 01/27/2025 Ancillary Orders [facility] [address] [place] [address] Tammy, MD Tammy 01/26/2025 Ancillary Orders [facility] [address] [place] [address] Unknown, MD Tammy 01/20/2025 - 01/20/2025 11:59 PM EDT Hospital Encounter [facility] [address] [place] [address] Unknown, Unknown, Discharge Disposition: Home or Self Care 01/19/2025 - 01/19/2025 11:59 PM EDT Hospital Encounter [facility] [address] [place] [address] Unknown, Unknown, Discharge Disposition: Home or Self Care from [...] Pulse 73 04/06/2025 1:57 PM EDT Temperature 36.1 C (97 F) 02/16/2025 12:42 PM EDT Respiratory Rate 20 02/16/2025 12:42 PM EDT Oxygen Saturation 97% 04/06/2025 1:57 PM EDT Inhaled Oxygen Concentration - - Weight 93.9 kg (207 lb) 03/30/2025 10:23 AM EDT Height 170.2 cm (5' 7 ) 03/30/2025 10:23 AM EDT Body Mass Index 32.42 03/30/2025 10:23 AM EDT Plan of Treatment Upcoming Encounters Date Type Department Care Team (Late st Contact Info) Description 03/30/2025 Procedure Pass [facility] [address] [place] [address] 04/08/2025 2:00 PM EDT Treatment [facility] Rad Onc [address] [place] [address] Arnel Carson MD [address] [place] [address] [email or web address] Lydia Crawford [address] [place] [address] [email or web address] 04/11/2025 1:30 PM EDT Treatment [facility] Rad Onc [address] [place] [address] Arnel Carson MD [address] [place] [address] [email or web address] 04/11/2025 1:50 PM EDT Procedure visit [facility] Rad Onc [address] [place] [address] Arnel Carson MD [address] [place] [address] [email or web address] 04/12/2025 1:40 PM EDT Treatment [facility] Rad Onc [address] [place] [address] Arnel Carson MD [address] [place] [address] [email or web address] 04/13/2025 1:40 PM EDT Treatment [facility] Rad Onc [address] [place] [address] Arnel Carson MD [address] [place] [address] [email or web address] 04/14/2025 1:30 PM EDT Treatment [facility] Rad Onc [address] [place] [address] Arnel Carson MD [address] [place] [address] 135[address] [email or web address] 04/15/2025 1:40 PM EDT Treatment [facility] Rad Onc [address] [place] [address] Arnel Carson MD [address] [place] [address] [email or web address] 04/18/2025 1:40 PM EDT Treatment [facility] Rad Onc [address] [place] [address] Arnel Carson MD [address] [place] [address] 232[address] [email or web address] 04/18/2025 1:50 PM EDT Procedure visit [facility] Onc [address] [place] [address] Arnel Carson MD [address] [place] [address] [email or web address] Lydia Crawford [address] [place] [address] [email or web address] 04/19/2025 1:40 PM EDT Treatment [facility] Rad Onc [address] [place] [address] Arnel Carson MD [address] [place] [address] 85[address] [email or web address] 04/20/2025 1:40 PM EDT Treatment [facility] Rad Onc [address] [place] [address] Arnel Carson MD [address] [place] [address] 71825 [email or web address] 04/21/2025 1:40 PM EDT Treatment [facility] Rad Onc [address] [place] [address] Arnel Carson MD [address] [place] [address] [email or web address] 04/22/2025 1:40 PM EDT Treatment [facility] Rad Onc [address] [place] [address] Arnel Carson MD [address] [place] [address] 51027 [email or web address] 04/25/2025 1:40 PM EST Treatment [facility] Rad Onc [address] [place] [address] 21893 Arnel Carson MD [address] [place] [address] 16339 [email or web address] 04/25/2025 1:50 PM EST Procedure visit [facility] Onc [address] [place] [address] Arnel Carson MD [address] [place] [address] 01572 [email or web address] 04/26/2025 1:40 PM EST Treatment [facility] Rad Onc [address] [place] [address] Arnel Carson MD [address] [place] [address] [email or web address] 04/27/2025 1:40 PM EST Treatment [facility] Rad Onc [address] [place] [address] Arnel Carson MD [address] [place] [address] 23994 [email or web address] 04/28/2025 1:40 PM EST Treatment [facility] Rad Onc [address] [place] [address] Arnel Carson MD [address] [place] [address] [email or web address] 04/29/2025 1:40 PM EST Treatment [facility] Rad Onc [address] [place] [address] Arnel Carson MD [address] [place] [address] 6[address] [email or web address] 05/02/2025 1:40 PM EST Treatment [facility] Rad Onc [address] [place] [address] Arnel Carson MD [address] [place] [address] 97382 [email or web address] 05/02/2025 1:50 PM EST Procedure visit [facility] Rad Onc [address] [place] [address] Arnel Carson MD [address] [place] [address] [phone] [email or web address] 05/03/2025 1:40 PM EST Treatment [facility] Rad Onc [address] [place] [address] Arnel Carson MD [address] [place] [address] 48658 [email or web address] 05/04/2025 1:40 PM EST Treatment [facility] Rad Onc [address] [place] [address] Arnel Carson MD [address] [place] [address] 9[address] [email or web address] 05/04/2025 1:50 PM EST Procedure visit [facility] Rad Onc [address] [place] [address] Arnel Carson MD [address] [place] [address] 289[address] [email or web address] 06/03/2025 11:30 AM EST Appointment [facility] [address] [place] [address] Fransisco Nguyen, [address] [place] [address] 06/13/2025 10:00 AM EST Appointment [facility] [address] [place] [address] Fransisco Nguyen, DO [address] [place] [address] Drive [address] [place] [address] 06/15/2025 10:00 AM EST Appointment [facility] [address] [place] [address] Fransisco Nguyen, DO [address] [place] [address] [place] [address] 07/26/2025 10:30 AM EST Office Visit [facility] [address] [facility] 3rd Floor, [address] [place] [address] Fransisco Nguyen, [address] [facility] [address] [place] [address] [email or web address] Due Date Last Done Comments CREATININE LEVEL 1954 DEPRESSION SCREENING 1966 SMOKING Hx and SMOKELESS TOB ACCO SCREENING 1967 HEPATITIS C SCREENING 1972 ZOSTER VACCINES (1 of 2) 1973 COLOGUARD 1999 COLONOSCOPY 1999 COLORECTAL CANCER SCREENING 1999 FIT TEST 1999 FOBT 1999 SIGMOIDOSCOPY 1999 VIRTUAL COLONOSCOPY 1999 RSV VACCINE (1 - Risk 50-74 years 1-dose series) 2004 ABDOMINAL AORTIC ANEURYSM (A AA) SCREENING 2019 PNEUMOCOCCAL VACCINES (50+ y ears) (2 of 2 - PCV) 03/21/2021 03/21/2020 Adult Td,Tdap Booster 02/25/2023 02/25/2013 INFLUENZA VACCINE (#1) 2025 COVID-19 VACCINE (1 - 2024-2 6 season) 2025 LIPID PANEL 03/23/2026 03/23/2021 HEPATITIS [...] Interpretation) (01/19/2025 12:00 AM EDT) Narrative SYSTEMGENERATED, - 01/26/2025 4:07 PM EDT This study is for PACS storage only and not for interpretation. us Unknown Unknown MD IMG OUTSIDE IMAGING W/OUT INT ERPRETATION Final Result from Last 3 Months Insurance MEDICARE PART A & B [facility] MEDICARE PART A & B HEALTH MEDICARE PART A & B HEALTH MEDICARE PART A & B [facility] Care Teams Pipelines Manager Relationship Specialty Start Date End Date Rigoberto Madrigal MD [address] [place] [address] [address] [place] [phone] [email or web address] PCP - General Internal Medicine 01/26/25 Yulisa Haynes MD [address] [place] [address] [email or web address] 02/16/25 Don Gonzales MD [address] [place] [address] [place] [address] General Surgery 02/16/25 Additional Source Comments The information contained in this document represents components of the legal health record. It is not the complete legal health record.[facility]
--- OUTSIDE RECORDS SUMMARY | 2025-04-08 07:47 | XMS_ITS | Encounter Summary ---
Author Organization [employer] Address [address] [facility] 7t [place] [address] Care Team Providers Care Pathology Assistant Name Role Phone Rigoberto Us MD Primary Care Provide r Timothy Broussard RN Unavailable [phone] September Unavailable Encounter Details Date Type Department Care Team ([facility] Contact Info) Description 10/04/[address] [facility] [address] [place] [address] [phone] Demi Garcia, RN [address] [place], [place] [phone] Social History Tobacco Use Types Packs/Day Years [...] Upcoming Encounters Date Type Department Care Team ([facility] Contact Info) Description 05/03/2025 11:15 AM EST Office Visit [facility] [address] [place] [address] Rigoberto Us MD [address] [place] [address] documented as of this encounter Visit Diagnoses Not on filedocumented in this encounter Care Teams Pathology Assistant Relationship Specialty Start Date End Date Rigoberto Us MD [address] [place] [address] PCP - General Internal Medicine 03/30/18 Timothy Broussard RN [address] [place] [address] Digital LibrarianC Python Developer 12/26/23 04/07/[address] [place] [address] Drive 3rd [place] [address] Gastroenterology 09/09/24 documented as of this encounter
--- OUTSIDE RECORDS SUMMARY | 2025-04-08 07:47 | XMS_ITS | Encounter Summary ---
Author Organization [facility] Address [address] [place] [address] Phone Care Team Providers Care National Sales Executive Name Role Phone Rigoberto Madrigal MD Primary Care Provide r Yulisa Haynes MD Unavailable [phone] Don Gonzales MD Unavailable [phone] Reason for Visit * Reason Onset Date Comments Medication Refill 03/10/2025 Encounter Details Date Type Department Care Team (Late st Contact Info) Description 03/10/2025 Refill [facility] [address] [facility] 3rd Floor, [address] [place] [address] Tamiko Howard [place] 22 [place] [address] [email or web address] Medication Refill Social History Tobacco Use Types [...] Info) Description 03/30/2025 Procedure Pass Echo Lab [address] [place] [address] 04/08/2025 2:00 PM EDT Treatment [facility] Rad [address] [address] Arnel Carson MD [address] [place] [address] [email or web address] Lydia Crawford [address] [place] [address] [email or web address] 04/11/2025 1:30 PM EDT Treatment [facility] [address] [address] Arnel Carson MD [address] [place] [address] [email or web address] 04/11/2025 1:50 PM EDT Procedure visit [facility] [address] [address] Arnel Carson MD [address] [place] [address] [email or web address] 04/12/2025 1:40 PM EDT Treatment [facility] Rad Onc [address] [place] [address] Arnel Carson MD [address] [place] [address] [email or web address] 04/13/2025 1:40 PM EDT Treatment [facility] [address] [address] Arnel Carson MD [address] [place] [address] [email or web address] 04/14/2025 1:30 PM EDT Treatment [facility] Rad Onc [address] [place] [address] Arnel Carson MD [address] [place] [address] [email or web address] 04/15/2025 1:40 PM EDT Treatment [facility] Rad Onc [address] [place] [address] Arnel Carson MD [address] [place] [address] [email or web address] 04/18/2025 1:40 PM EDT Treatment [facility] Rad Onc [address] [place] [address] Arnel Carson MD [address] [place] [address] [email or web address] 04/18/2025 1:50 PM EDT Procedure visit [facility] Rad Onc [address] [place] [address] Arnel Carson MD [address] [place] [address] [email or web address] Lydia Crawford [address] [place] [address] 04/19/2025 1:40 PM EDT Treatment [facility] Rad Onc [address] [place] [address] Arnel Carson MD [address] [place] [address] [email or web address] 04/20/2025 1:40 PM EDT Treatment [facility] Rad Onc [address] [place] [address] Arnel Carson MD [address] [place] [address] [email or web address] 04/21/2025 1:40 PM EDT Treatment [facility] Rad Onc [address] [place] [address] Arnel Carson MD [address] [place] [address] [email or web address] 04/22/2025 1:40 PM EDT Treatment [facility] Rad Onc [address] [place] [address] Arnel Carson MD [address] [place] [address] [email or web address] 04/25/2025 1:40 PM EST Treatment [facility] Rad Onc [address] [place] [address] Arnel Carson MD [address] [place] [address] [email or web address] 04/25/2025 1:50 PM EST Procedure visit [facility] Rad Onc [address] [place] [address] Arnel Carson MD [address] [place] [address] [email or web address] 04/26/2025 1:40 PM EST Treatment [facility] Rad Onc [address] [place] [address] Arnel Carson MD [address] [place] [id number] [email or web address] 04/27/2025 1:40 PM EST Treatment [facility] Rad Onc [address] [place] [address] Arnel Carson MD [address] [place] [address] [email or web address] 04/28/2025 1:40 PM EST Treatment [facility] Rad Onc [address] [place] [address] Arnel Carson MD [address] [place] [address] [email or web address] 04/29/2025 1:40 PM EST Treatment [facility] Rad Onc [address] [place] [address] Arnel Carson MD [address] [place] [address] [email or web address] 05/02/2025 1:40 PM EST Treatment [facility] Rad Onc [address] [place] [address] Arnel Carson MD [address] [place] [address] [email or web address] 05/02/2025 1:50 PM EST Procedure visit [facility] Rad Onc [address] [place] [address] Arnel Carson MD [address] [place] [address] [email or web address] 05/03/2025 1:40 PM EST Treatment [facility] Rad Onc [address] [place] [address] Arnel Carson MD [address] [place] [address] [email or web address] 05/04/2025 1:40 PM EST Treatment [facility] Rad Onc [address] [place] [address] Arnel Carson MD [address] [place] [address] [email or web address] 05/04/2025 1:50 PM EST Procedure visit [facility] Rad Onc [address] [place] [address] Arnel Carson MD [address] [place] [address] [email or web address] 06/03/2025 11:30 AM EST Appointment [facility] [address] [place] [address] Fransisco Nguyen, [address] [place] [address] 06/13/2025 10:00 AM EST Appointment Echo Lab [address] [place] [address] Fransisco Nguyen, [address] [address] 06/15/2025 10:00 AM EST Appointment [facility] [address] 3rd [place] [address] Fransisco Nguyen, DO [address] [facility] [address] [place] [address] 07/26/2025 10:30 AM EST Office Visit [facility] [address] 3rd Floor, [address] [place] [address] Fransisco Nguyen, DO [address] [facility] [address] [place] [address] documented as of this encounter Visit Diagnoses Not on filedocumented in this encounter Care Teams National Sales Executive Relationship Specialty Start Date End Date Rigoberto Madrigal MD [address] [place] [address] [place] [phone] [email or web address] PCP - General Internal Medicine 01/26/25 Yulisa Haynes MD [address] [place] [address] [email or web address] 02/16/25 Don Gonzales MD [address] [place] [address] [place] [address] General Surgery 02/16/25 documented as of this encounter Additional Source Comments The information contained in this document represents components of the legal health record. It is not the complete legal health record.[facility]
--- OUTSIDE RECORDS SUMMARY | 2025-04-08 07:47 | XMS_ITS | Encounter Summary ---
Author Organization [employer] Address [address] [facility] 7t [place] [address] Care Team Providers Care Putty Tinter Maker Name Role Phone Rigoberto Us MD Primary Care Provide r Timothy Broussard RN Unavailable [phone] September Unavailable Reason for Visit * Reason Onset Date Comments Lab Orders 08/30/2022 Encounter Details Date Type Department Care Team (Late st Contact Info) Description 08/30/2022 Telephone [facility] MEDICINE [address] [place] [address] Rigoberto Us MD [address] [place], [place] [phone] Lab Orders Social History Tobacco Use Types [...] 11:19 AM EST Tc from [facility] nurse requesting an order for a lumbar spine for pt documented in this encounter Plan of Treatment Upcoming Encounters Date Type Department Care Team (Late st Contact Info) Description 05/03/2025 11:15 AM EST Office Visit [facility] [address] [place] [address] Rigoberto Us MD [address] [place] [address] documented as of this encounter Visit Diagnoses Not on filedocumented in this encounter Care Teams Putty Tinter Maker Relationship Specialty Start Date End Date Rigoberto Us MD [address] [place] [address] PCP - General Internal Medicine 03/30/18 Timothy Broussard RN [address] [place] [address] Revising ClerkSong Plugger 12/26/23 04/07/[address] [place] [address] Drive 3rd [place] [address] Gastroenterology 09/09/24 documented as of this encounter
--- OUTSIDE RECORDS SUMMARY | 2025-04-08 07:47 | XMS_ITS | Encounter Summary ---
Author Organization [facility] Address [address] [facility] [address] [place] [address] Phone Care Team Providers Care Tungsten Refiner Name Role Phone Rigoberto Madrigal MD Primary Care Provide r Yulisa Haynes MD Unavailable [phone] Don Gonzales MD Unavailable Reason for Visit * Reason Onset Date Comments Medication Refill 04/06/2025 Encounter Details Date Type Department Care Team (Late st Contact Info) Description 04/06/2025 Refill [facility] [address] [facility] 3rd Floor, [address] [place] [address] Fransisco Nguyen DO [address] [facility] [address] [place] [address] [email or web address] Medication Refill Social [...] on file documented as of this encounter Progress Notes * Silvio Rosado MA - 04/06/2025 11:28 AM EDT Patient is running low on medications and will need a refill yaritza. documented in this encounter Plan of Treatment Upcoming Encounters Date Type Department Care Team (Late st Contact Info) Description 03/30/2025 Procedure Pass Echo Lab [place] [place] [address] 04/08/2025 2:00 PM EDT Treatment [facility] Rad Onc [address] [place] [address] Arnel Carson MD [address] [place] [address] [email or web address] Lydia Crawford [address] [place] [address] 04/11/2025 1:30 PM EDT Treatment [facility] Rad Onc [address] [place] [address] Arnel Carson MD [address] [place] [address] [email or web address] 04/11/2025 1:50 PM EDT Procedure visit [facility] Rad Onc [address] [place] [address] Arnel Carson MD [address] [place] [address] [email or web address] 04/12/2025 1:40 PM EDT Treatment [facility] Rad Onc [address] [place] [address] Arnel Carson MD [address] [place] [address] [email or web address] 04/13/2025 1:40 PM EDT Treatment [facility] Rad Onc [address] [place] [address] Arnel Carson MD [address] [place] [address] [email or web address] 04/14/2025 1:30 PM EDT Treatment [facility] Rad Onc [address] [place] [address] Arnel Carson MD [address] [place] [address] [email or web address] 04/15/2025 1:40 PM EDT Treatment [facility] Rad Onc [address] [place] [address] Arnel Carson MD [address] [place] [address] [email or web address] 04/18/2025 1:40 PM EDT Treatment [facility] Rad Onc [address] [place] [address] Arnel Carson MD [address] [place] [address] [email or web address] 04/18/2025 1:50 PM EDT Procedure visit [facility] Rad Onc [address] [place] [address] Arnel Carson MD [address] [place] [address] [email or web address] BettinaShiraFabian Evanssadi [address] [place] [address] [email or web address] 04/19/2025 1:40 PM EDT Treatment [facility] Rad Onc [address] [place] [address] Arnel Carson MD [address] [place] [address] [email or web address] 04/20/2025 1:40 PM EDT Treatment [facility] Rad Onc [address] [place] [address] Arnel Carson MD [address] [place] [address] [email or web address] 04/21/2025 1:40 PM EDT Treatment [facility] Rad Onc [address] [place] [address] Arnel Carson MD [address] [place] [address] [email or web address] 04/22/2025 1:40 PM EDT Treatment [facility] Rad Onc [address] [place] [address] Arnel Carson MD [address] [place] [address] [email or web address] 04/25/2025 1:40 PM EST Treatment [facility] Rad Onc [address] [place] [address] Arnel Carson MD [address] [place] [address] [email or web address] 04/25/2025 1:50 PM EST Procedure visit [facility] Rad Onc [address] [place] [address] Arnel Carson MD [address] [place] [address] [email or web address] 04/26/2025 1:40 PM EST Treatment [facility] Rad Onc [address] [place] [address] Arnel Carson MD [address] [place] [address] [email or web address] 04/27/2025 1:40 PM EST Treatment [facility] Rad Onc [address] [place] [address] Arnel Carson MD [address] [place] [address] [email or web address] 04/28/2025 1:40 PM EST Treatment [facility] Rad Onc [address] [place] [address] Arnel Carson MD [address] [place] [address] [email or web address] 04/29/2025 1:40 PM EST Treatment [facility] Rad Onc [address] [place] [address] Arnel Carson MD [address] [place] [address] [email or web address] 05/02/2025 1:40 PM EST Treatment [facility] Rad Onc [address] [place] [address] Arnel Carson MD [address] [place] [address] [email or web address] 05/02/2025 1:50 PM EST Procedure visit [facility] Rad Onc [address] [place] [address] Arnel Carson MD [address] [place] [address] [email or web address] 05/03/2025 1:40 PM EST Treatment [facility] Rad Onc [address] [place] [address] Arnel Carson MD [address] [place] [address] [email or web address] 05/04/2025 1:40 PM EST Treatment [facility] Rad Onc [address] [place] [address] Arnel Carson MD [address] [place] [address] [email or web address] 05/04/2025 1:50 PM EST Procedure visit [facility] Rad Onc [address] [place] [address] Arnel Carson MD [address] [place] [address] [email or web address] 06/03/2025 11:30 AM EST Appointment [facility] [address] [place] [address] Fransisco Nguyen DO [address] [facility] [address] [place] [address] 06/13/2025 10:00 AM EST Appointment Echo Lab [place] [place] [address] Fransisco Nguyen, DO [address] [facility] [address] [place] [address] 06/15/2025 10:00 AM EST Appointment [facility] [place] 3rd [place] [address] Fransisco Nguyen, DO [address] [facility] [address] [place] [address] 07/26/2025 10:30 AM EST Office Visit [facility] [address] [facility], [address] [place] [address] Fransisco Nguyen, [address] [address] documented as of this encounter Visit Diagnoses Not on filedocumented in this encounter Care Teams Tungsten Refiner Relationship Specialty Start Date End Date Rigoberto Madrigal MD [address] [facility] [address] [place] [address] [phone] PCP - General Internal Medicine 01/26/25 Yulisa Haynes MD [address] [place] [address] [email or web address] 02/16/25 Don Gonzales MD [address] [place] [address] [place] [address] General Surgery 02/16/25 documented as of this encounter Additional Source Comments The information contained in this document represents components of the legal health record. It is not the complete legal health record.[facility]
--- OUTSIDE RECORDS SUMMARY | 2025-04-08 07:47 | XMS_ITS | Encounter Summary ---
Author Organization [employer] Address [address] [facility] [address] 7t [place] [address] Care Team Providers Care Funeral Assistant Name Role Phone Rigoberto Us MD Primary Care Provide r Timothy Broussard RN Unavailable [phone] September Unavailable Reason for Visit * Reason Onset Date Comments Call Back Request 01/22/2024 Encounter Details Date Type Department Care Team ([facility] st Contact Info) Description 01/22/2024 Telephone [facility] MEDICINE [address] [place], [place] [phone] Rigoberto Us MD [address] [place], [place] [phone] Call Back Request Social History Tobacco Use [...] a call back in order to r/s [facility] appt. Please contact at [phone] documented in this encounter Plan of Treatment Upcoming Encounters Date Type Department Care Team (Late st Contact Info) Description 05/03/2025 11:15 AM EST Office Visit [facility]ICINE [address] [place] [address] Rigoberto Us MD [address] [place] [address] documented as of this encounter Visit Diagnoses Not on filedocumented in this encounter Additional Health Concerns Assessment Noted Time PHQ-9 Depression Total Score: 8 08/26/19 24 11:49 AM EST documented as of this encounter Care Teams Funeral Assistant Relationship Specialty Start Date End Date Rigoberto Us MD [address] [place] [address] PCP - General Internal Medicine 03/30/18 Timothy Broussard RN [address] [place] [address] Pipe Line RepairerWireless Cellular Technician 12/26/23 04/07/[address] [place] [address] 3rd [place] [address] Gastroenterology 09/09/24 documented as of this encounter
--- OUTSIDE RECORDS SUMMARY | 2025-04-08 07:47 | XMS_ITS | Encounter Summary ---
Author Organization [employer] Address [address] [facility] 7t [place] [address] Care Team Providers Care Phone Representative Name Role Phone Rigoberto Us MD Primary Care Provide r Timothy Broussard RN Unavailable [phone] September Unavailable Encounter Details Date Type Department Care Team (Latest Contact Info) Description 10/12/2020 Abstract [facility] CONVERSIONS Dental, Provider, DDS Social [...] 11:15 AM EST Office Visit [facility] MEDICINE [address] [place] [address] Rigoberto Us MD [address] [place] [address] documented as of this encounter Visit Diagnoses Not on filedocumented in this encounter Care Teams Phone Representative Relationship Specialty Start Date End Date Rigoberto Us MD [address] [place] [address] PCP - General Internal Medicine 03/30/18 Timothy Broussard, RN [address] [place] [address] Boring Machine Operator HorizontalQc Tech 12/26/23 04/07/[address] [place] [address] 3rd [place] [address] Gastroenterology 09/09/24 documented as of this encounter
--- OUTSIDE RECORDS SUMMARY | 2025-04-08 07:47 | XMS_ITS | Encounter Summary ---
Author Organization [employer] Address [address] [facility] 7t [place] [address] Care Team Providers Care Merchant Banker Name Role Phone Rigoberto Us MD Primary Care Provide r Timothy Broussard RN Unavailable [phone] September Unavailable Encounter Details Date Type Department Care Team (Late st Contact Info) Description 05/29/2022 Abstract [facility] MEDICINE [address] [place] [address] ProviderElmira MD Social History Tobacco Use Types [...] Description 05/03/2025 11:15 AM EST Office Visit [facility] MEDICINE [address] [place] [place] [address] Rigoberto Us MD [address] [place] [address] [phone] documented as of this encounter Visit Diagnoses Not on filedocumented in this encounter Care Teams Merchant Banker Relationship Specialty Start Date End Date Rigoberto Us MD [address] [place] [address] [phone] PCP - General Internal Medicine 03/30/18 Timothy Broussard RN [address] [place] [address] Simulation TechnicianDry Cell And Battery Assembler 12/26/23 04/07/[address] [place] [address] 3rd [place] [address] Gastroenterology 09/09/24 documented as of this encounter
--- OUTSIDE RECORDS SUMMARY | 2025-04-08 07:47 | XMS_ITS | Encounter Summary ---
Author Organization [employer] Address [address] [place] [address] 7t [place] [address] Care Team Providers Care Cork Compounder Name Role Phone Rigoberto Us MD Primary Care Provide r September Unavailable Encounter Details Date Type Department Care Team ([facility] Contact Info) Description 09/14/2024 Orders Only [facility] [address] [place], [place] [phone] Provider, MD [place] Social History Tobacco Use [...] Description 05/03/2025 11:15 AM EST Office Visit [facility] [address] [place], [place] [phone] Rigoberto Us MD [address] [place] [address] documented as of this encounter Procedures Procedure [...] AM EDT Narrative 09/30/2024 9:36 AM EDT [address] [address] [address] Scan Report Signed Patient: Avery Ware MR#: [id number] : 1955 Acct:[id number] Age/Sex: 69 / M ADM Date: 09/30/24 Loc: HO.CT Attending Dr: Layton Sterling MD Ordering Physician: Layton Sterling MD Date of Service: 09/30/24 Procedure(s): CT chest wo IV con Accession Number(s): [id number] cc: Rigoberto Madrigal MD; Layton Sterling MD Report Number: [id number]: Total DLP = 146.00 mGy-cm EXAMINATION: CT [...] reconstruction technique. DLP: 146 mGy centimeter. FINDINGS: BREASTFEEDING EDUCATOR: Volume loss, right lung. Cardiomediastinal structures towards [...] in OV> 09/30/2433 DD/ 6 TD/TT: 09/30/2445 Mail Machine Operator: Procedure Note Donotuseinterpreter, Image - 09/30/[address] [place] [address] [address] Scan Report Signed Patient: Avery WareMR#: [id number] : 1955cct:[id number] Age/Sex: 69 / MADM Date: 09/30/24 Loc: .CT Attending Dr: Layton Sterling MD Ordering Physician: Layton Sterling MD Date of Service: 09/30/24 Procedure(s): CT chest wo IV con Accession Number(s): [id number] cc: Rigoberto Madrigal MD; Layton Sterling MD Report Number: [id number]: Total DLP = 146.00 mGy-cm EXAMINATION: CT [...] reconstruction technique. DLP: 146 mGy centimeter. FINDINGS: BREASTFEEDING EDUCATOR: Volume loss, right lung. Cardiomediastinal structures towards [...] MDin OV> 09/30/24 0933 DD/ TD/TT: 09/30/2445 Mail Machine Operator: [facility] External Provider IMG CT PROCEDURES Final [...] documented as of this encounter Care Teams Cork Compounder Relationship Specialty Start Date End Date Rigoberto Us MD [address] [place] [phone] PCP - General Internal Medicine 03/30/[address] [place] [address] [address] [place] [address] Gastroenterology 09/09/24 documented as of this encounter
--- OUTSIDE RECORDS SUMMARY | 2025-04-08 07:47 | XMS_ITS | Clinical Summary ---
Author Organization [employer] Address [address] [facility] 7t [place] [address] Care Team Providers Care Economist Research Assistant Name Role Phone Rigoberto Us MD [...] for a HDF Admitted to [facility] from 12/11-12/16/2023 after he presented for evaluation [...] S/P kyphoplasty by IR at [facility] 09/20/2022 For pain control I have prescribed Oxycodone Diagnostic work up for secondary causes of osteoporosis unrevealing He is on Calcium and Vitamin D On Tymlos Evaluated by Endocrinology , last seen 05/18/2024. Assessment & Plan (12/02/2023 10:17 AM EDT): S/P kyphoplasty by IR at [facility] 09/20/2022 For pain control I have prescribed Oxycodone Diagnostic work up for secondary causes of osteoporosis unrevealing He is on Calcium and Vitamin D On Tymlos Evaluated by Endocrinology , last seen 08/14/2023 has a follow up in January Assessment & Plan (08/26/2023 11:31 AM EST): S/P kyphoplasty by IR at [facility] 09/20/2022 For pain control I have prescribed Oxycodone Diagnostic work up for secondary causes of osteoporosis unrevealing He is on Calcium and Vitamin D On Tymlos Evaluated by Endocrinology , last seen 08/14/2023 Assessment & Plan (02/04/2023 11:43 AM EDT): S/P kyphoplasty by IR at [facility] 09/20/2022 For pain control I have prescribed [...] and facet arthritis pt already following w admissions evaluator receiving Tymlos (abaloparatide)-states was not receiving lately x issues with pharmacy but to resume now -pt takes med to admissions evaluator for med administration -advised to continue w [...] S/P kyphoplasty by IR at [facility] 09/20/2022 For pain control I have prescribed Oxycodone but he stopped taking it Today he describes his pain at 7/10 when severe 10/10 Diagnostic work up for secondary causes of osteoporosis unrevealing He is on Calcium and Vitamin D Started on Tymlos, followed by Endocrinology Seen at [facility] On 03/19/23: Kyphon Balloon Kyphoplasty with Insertion of HV-R Bone Cement, L1 and L2 Vertebral Bodies: with 80% relief. Last seen at [facility] 10/24/2023 Scheduled for fluoroscopy guided diagnostic left L3-L4 DR L5 medial branch blocks with local anesthetic. Plan: Continue Flexeril and MS Contin 15 mg po BID risk discussed particularly around somnolence , sedation and counseled about fall prevention Assessment & Plan (12/02/2023 10:20 AM EDT): S/P kyphoplasty by IR at [facility] 09/20/2022 For pain control I have prescribed Oxycodone but he stopped taking it Today he describes his pain at 7/10 when severe 10/10 Diagnostic work up for secondary causes of osteoporosis unrevealing He is on Calcium and Vitamin D Started on Tymlos, followed by Endocrinology Seen at [facility] On 03/19/23: Kyphon Balloon Kyphoplasty with Insertion of HV-R Bone Cement, L1 and L2 Vertebral Bodies: with 80% relief. Last seen at [facility] 10/24/2023 Scheduled for fluoroscopy guided diagnostic left L3-L4 DR L5 medial branch blocks with local anesthetic. Plan: Continue Flexeril Start MS Contin 15 mg po BID risk discussed particularly around somnolence , sedation and counseled about fall prevention Assessment & Plan (04/22/2023 11:28 AM EDT): S/P kyphoplasty by IR at [facility] 09/20/2022 For pain control I have prescribed Oxycodone but he stopped taking it Diagnostic work up for secondary causes of osteoporosis unrevealing He is on Calcium and Vitamin D Started on Tymlos, followed by Endocrinology Seen at [facility] On 03/19/23: Kyphon Balloon Kyphoplasty with Insertion of HV-R Bone Cement, L1 and L2 Vertebral Bodies: with 80% relief. Assessment & Plan (02/04/2023 11:41 AM EDT): S/P kyphoplasty by IR at [facility] 09/20/2022 For pain control I have prescribed [...] undergoing kyphoplasty by IR at [facility] tomorrow 09/20/2022 For pain control I have [...] S/P kyphoplasty by IR at [facility] 09/20/2022 For pain control I have prescribed [...] for a f/u He was seen by web marketing specialist at [facility] He tells me he was given injections [...] BID, He was advised to f/u with Content Production Specialist Pt reports he is still drinking on [...] HDF He presented again to [facility] from 05/30 until 06/01 with c/o increased [...] Under the care of Moraima Charles at [facility] Assessment & Plan (09/09/2024 2:06 PM EDT): Under the care of Dasia Soni at [facility] Assessment & Plan (12/02/2023 11:34 AM EDT): Under the care of Dasia newell [facility] On Seroquel 300 mg po qhs Bupropion and Trazodone 100 mg po qhs per his report Assessment & Plan (04/22/2023 11:41 AM EDT): Under the care of Dasia newell [facility] On Seroquel 300 mg po qhs Bupropion and Trazodone 100 mg po qhs per his report Assessment & Plan (06/04/2022 9:09 AM EST): Under the care of Dasia nweell [facility] On Seroquel 300 mg po qhs [...] EDT): Under the care of Dasia Soni [facility] Serzenonquel nd Trazodone were discontinued in the Hospital due to prolongued Qtc He is now on Sertraline 25 mg po daily Assessment & Plan (01/08/2024 1:41 PM EDT): Under the care of Dasia Soni [facility] Seroquel nd Trazodone were discontinued in the Hospital due to prolongued Qtc He is now on Sertraline 25 mg po daily Assessment & Plan (12/02/2023 11:36 AM EDT): Under the care of Dasia Soni [facility] On Seroquel 300 mg po qhs Bupropion and Trazodone 100 mg po qhs per his report Assessment & Plan (04/22/2023 11:41 AM EDT): Under the care of Dasia Soni [facility] On Seroquel 300 mg po qhs Bupropion and Trazodone 100 mg po qhs per his report Assessment & Plan (06/04/2022 9:09 AM EST): Under the care of Dasia Soni [facility] Tubular adenoma of colon 03/10/2018 Assessment [...] going into A.fib Pt was cleared by Content Production Specialist 06/01 and is awaiting GI appointment for [...] A.fib Pt has now been cleared by Content Production Specialist 06/01 and is awaiting GI appointment for [...] of Trelegy and Ventolin Dr Pisano his fisher dip net mentioned in a previous note that patient [...] of Trelegy and Ventolin Dr Pisano his fisher dip net mentioned in a previous note that patient [...] scarring related to pneumonia Dr Pisano his fisher dip net mentioned in a previous note that patient [...] scarring related to pneumonia Dr Pisano his fisher dip net mentioned in a previous note that patient [...] Pt was seen by Dr Pisano his fisher dip net 08/2022 he mentioned in his note that [...] Pt was seen by Dr Pisano his fisher dip net 08/2022 he mentioned in his note that [...] Pt was seen by Dr Pisano his fisher dip net 08/2022 he mentioned in his note that [...] Pt was seen by Dr Pisano his fisher dip net 05/21/2022 who recommended a repeat Chest CT [...] Type Department Care Team Description 03/11/[address] [facility] [address] [place] [address] Rigoberto Us MD 03/10/2025 Orders Only GENERIC EXTERNAL DATA DEPARTMENT Provider, Generic External Data 02/18/[address] [facility] [address] [place] [address] Rigoberto Us MD Appointment Confirmation 02/07/[address] [facility] [address] [place] [address] Rigoberto Us MD 01/11/2025 3:00 PM EDT Office Visit [address] [address] Rigoberto Us MD Rectal adenocarcinoma (CMS/HCC) (Primary Dx); Bipolar affective disorder, remission status unspecified (CMS/HCC); Microscopic hematuria 01/11/2025 Travel 01/10/[address] [facility] [address] [place] [address] Rigoberto Us MD chart prep 01/06/2025 Orders [...] 05/03/2025 11:15 AM EST Office Visit [facility] [address] [place] [address] Rigoberto Us MD [address] [place] [address] Health Maintenance Due Date Last Done Comments [...] Date/Time Associated Diagnosis Comments CYTOPATH-CELL ENHANCED Routine 5 5:47 PM EDT MR PELVIS W AND [...] deficiency anemia, unspecified iron deficiency anemia type HM COLONOSCOPY Routine 04/23/2024 LIPID PANEL, STANDARD Routine 03/23/2021 9:05 AM EDT from Last 3 Months or Most Recently Relevant to Health Maintenance Results * Cytopath-cell enhanced (03/10/2025 5:47 PM EDT) 03/10/2025 5:47 PM EDT 03/11/2025 8:30 AM EDT [facility] - 03/14/2025 10:38 AM EDT ----- ------- Name: Avery Ware Age/Sex: 69/M : 1955 Unit#: [id number] Attend Dr: Pearl Whiting [facility] Re03/10/25 Status: [facility] Dis[facility]: ----- ------- SPEC : [id number] RECD: 03/11/25 STATUS: AUDRA TATUM NUM: [id number] FRANCOIS: 03/10/[address]: Pearl Whiting [facility] ENTERED: 03/11/25 SP TYPE: Cytology OTHR DR: [...] developed and their performance characteristics determined by [facility]. They have not been cleared or approved by the U.S. Food and Drug Administration (FDA). However, the FDA has determined that such clearance or approval is not necessary. This laboratory is certified under the Clinical Laboratory Improvement Amendments of 1988 (CLIA) as qualified to perform high complexity clinical laboratory testing. Copies To: Pearl Whiting [facility] [address] [place] [address] Dr. Rosario [address] [place] [address] [email or web address] Milena Lopez [address] [phone] CONTINUED ON NEXT PAGE ----- ------- Name: Avery Ware Age/Sex: 69/M : 1955 Unit#: [id number] Attend Dr: Pearl Whiting [facility] Re03/10/25 Status: DEP REF Location: [facility] Disch: ----- ------- SPEC : [id number] RECD: 03/11/25 STATUS: AUDRA TATUM NUM: [id number] FRANCOIS: 03/10/[address] [facility] [address]: Pearl Whiting [facility] ENTERED: 03/11/25 SP TYPE: Cytology OTHR DR: Milena Lopez [facility] ORDERED: Cyto-enhanced ----- ------- Signed (signature on file) Kristian Cabral MD 03/14/25 1038 ----- ------- END OF REPORT us Generic External Data Provider LAB CYTOLOGY ORDE [place] Final Result Performing Organization Address City/State/[facility] Co de Phone Number [facility] [address] [place] [phone] * MR Pelvis w/ and w/o Contrast (01/19/2025 3:07 PM EDT) Anatomical Region Laterality Modality Body, Pelvis Magnetic Resonan ce 01/19/2025 3:07 PM EDT Narrative 01/20/2025 3:07 PM EDT [address] [address] Magnetic Resonance Report Signed Patient: Avery Ware MR#: [id number] : 1955 Acct:[id number] Age/Sex: 69 / M ADM Date: 01/19/25 Loc: HO.MRI Attending Dr: Yulisa Haynes MD Ordering Physician: Yulisa Haynes MD Date of Service: 01/19/25 Procedure(s): MR pelvis wo/w con Accession Number(s): [id number] cc: Yulisa Haynes MD; Rigoberto Madrigal MD [...] is mural thickening involving the posterior half shinnecock of upper rectal wall with wall thickening [...] 01/20/25 1505 DD/ 1507 TD/TT: 01/19/25 1534 Life Insurance Underwriter: [facility] Procedure Note Donotuseinterpreter, Image - 01/20/[address] [address] Magnetic Resonance Report Signed Patient: Avery WareMR#: [id number] : 1955cct:[id number] Age/Sex: 69 / MADM Date: 01/19/25 Loc: HO.MRI Attending Dr: Yulisa Haynes MD Ordering Physician: Yulisa Haynes MD Date of Service: 01/19/25 Procedure(s): MR pelvis wo/w con Accession Number(s): [id number] cc: Yulisa Haynes MD; Rigoberto Madrigal MD [...] is mural thickening involving the posterior half shinnecock of upper rectal wall with wall thickening [...] 01/20/25 1505 DD/ 1507 TD/TT: 01/19/25 1534 Life Insurance Underwriter: [facility] External Provider IMG MRI PROCEDURES Final Result * PSA, Total With Reflex to PSA, Free (01/06/2025 9:52 AM EDT) PSA,Total (Free>4and<10) 0.46 0.00 - 4.00 ng/mL [facility] Comment:A Free PSA was not [...] are between 4.0 and 10.0 ng/mL.PSA methodology: Tarisa Alinity i ChemiluminescentMicroparticle Immunoassay (CMIA) 01/06/2025 9:52 AM EDT 01/06/2025 9:52 AM EDT Generic External Data Provider LAB BLOOD ORDERAB LES Final Result [facility] [address] [place] [phone] * (ABNORMAL) CBC auto differential (01/06/2025 9:52 AM EDT) White Blood Count 8.8 4.8 - 10.8 X10*3/uL [facility] Red Blood Count 5.11 4.60 - 5.80 X10*6/uL [facility] Hemoglobin 15.6 14.0 - 18.0 g/dl [facility] Hematocrit 46.7 42.0 - 52.0 % [facility] Mean Corpuscular Volume 91.4 80.0 - 98.0 fL [facility] Mean Corpuscular Hemoglobin 30.5 27.0 - 33.0 pg [facility] Mean Corpuscular HGB Conc 33.4 31.0 - 36.0 g/dl [facility] Red Cell Distribution Width 12.9 11.0 - 16.0 % [facility] Platelet Count 206 160 - 400 X10*3/uL [facility] Mean Platelet Volume 9.7 9.4 - 12.4 fL [facility] Neutrophils Percent Auto 80.9(H) 45 - 73 % [facility] Imm Gran Pct Auto 0.3 0.0 - 0.4 % [facility] Lymphocytes Percent Auto 12.5(L) 20 - 40 % [facility] Monocytes Percent Auto 5.2 2 - 11 % [facility] Eosinophils Percent Auto 0.8 0 - 4 % [facility] Basophils Percent Auto 0.3 0 - 2 % [facility] NRBC Pct Auto 0.0 0.0 - 0.2 /100WBC [facility] Neutrophils Absolute Auto 7.1 2.0 - 8.3 x10*3/uL [facility] Imm Gran Abs Auto 0.03 0.00 - 0.03 X10*3/uL [facility] Lymphocytes Absolute Auto 1.1(L) 1.2 - 4.9 X10*3/uL [facility] Monocytes Absolute Auto 0.5 0.1 - 1.2 X10*3/uL [facility] Eosinophils Absolute Auto 0.1 0.0 - 0.4 X10*3/uL [facility] Basophils Absolute Auto 0.0 0.0 - 0.2 X10*3/uL [facility] NRBC Abs Auto 0.000 0.0 - 0.012 X10*3/uL [facility] Blood Venous blood specimen / Unknown 01/06/2025 9:52 AM EDT 01/06/2025 9:52 AM EDT us Milena Okronaldo COOK APPRENTICE LAB BLOOD ORDERABLES Final Res ult [facility] [address] [place] [phone] [phone] * Iron And Total Iron Binding Capacity (01/06/2025 9:52 AM EDT) Iron 96 45 - 160 mcg/dL [facility] Total Iron Binding Capacity 259 228 - 428 mcg/dL [facility] Percent Iron Saturation 37 15 - 50 % [facility] Unsaturated Iron Binding 163 ug/dL [facility] Blood Venous blood specimen / Unknown 01/06/2025 9:52 AM EDT 01/06/2025 9:52 AM EDT us Milena Lopez COOK APPRENTICE LAB BLOOD ORDERABLES Final Res ult [facility] [address] [place] [phone] [phone] * Testosterone, Free (Dialysis) And Total, MS (01/06/2025 9:52 AM EDT) Testosterone, Total 356 250 - 1100 ng/dL [facility] Comment:Men with clinically significant hypogonadalsymptoms and testosterone values repeatedly inthe range of the 200-300 ng/dL or less, maybenefit from testosterone treatment afteradequate risk and benefits counseling.For additional information, please refer tohttp://education.SmartFleet.stylemarks/faq/HgllgUsqfuwxyvvblWDHHIHURL214(This link is being provided for informational/educational purposes only.)This test was developed and its analytical performancecharacteristics have been determined by [employer] [place], [place]. It hasnot been cleared or approved by the U.S. Food and DrugAdministration. This assay has been validated pursuantto the CLIA regulations and is used for clinicalpurposes. Testosterone, Free 35.6 30.0 - 135.0 pg/mL [facility] Comment:This test was develo ped and its analytical performancecharacteristics have been determined by [employer] [place], [place]. It hasnot been cleared or approved by the U.S. Food and DrugAdministration. This assay has been validated pursuantto the CLIA regulations and is used for clinicalpurposes.THIS TEST WAS PERFORMED AT:[id number] [place] [address]WYRYDFMMELVIN RUBIO MD,PHD 01/06/2025 9:52 AM EDT 01/06/2025 9:52 AM EDT us Generic External Data Provider LAB BLOOD ORDERAB LES Final Result [facility] [address] [place] [phone] * (ABNORMAL) Comprehensive Metabolic Panel (01/06/2025 9:52 AM EDT) Sodium 142 135 - 145 mmol/L [facility] Potassium 3.5 3.3 - 5.1 mmol/L [facility] Chloride 108 96 - 108 mmol/L [facility] Carbon Dioxide 27 22 - 29 mmol/L [facility] Anion Gap 11(L) 12 - 20 [facility] Urea Nitrogen (BUN) 11 9 - 16 mg/dL [facility] Creatinine, Serum 0.78 0.5 - 1.4 mg/dL [facility] Estimated Glomerular Filt Rate >60 [facility] Comment:Chronic Kidney Disea se: Estimated GFR < 60 mL/min/1.93b3Uygywd Kidney Disease: Estimated GFR < 15 mL/min/1.73m2 Glucose 97 60 - 115 mg/dL [facility] Calcium 8.6 8.4 - 10.2 mg/dL [facility] Bilirubin, Total 0.7 0.0 - 1.0 mg/dL [facility] Aspartate Amino Transferase 16 5 - 37 U/L [facility] Alanine Aminotransferase 18 0 - 40 U/L [facility] Total Protein 7.4 6.5 - 8.0 g/dL [facility] Albumin Level 4.1 3.5 - 5.0 g/dL [facility] Alkaline Phosphatase 62 39 - 117 U/L [facility] Blood Venous blood specimen / Unknown 01/06/2025 9:52 AM EDT 01/06/2025 9:52 AM EDT Milena Lopez COOK APPRENTICE LAB BLOOD ORDERABLES Final Res ult [facility] [address] [place] [phone] * Hm Colonoscopy (04/23/2024) Colonoscopy Normal Normal Historical Provider HEALTH MAINTENANCE Final Result * LIPID PANEL, STANDARD (03/23/2021 9:05 AM EDT) Chol/HDLC Ratio 2.9 <5.0 (calc) [facility] Cholesterol, Total 154 <200 mg/dL [facility] HDL Cholesterol 54 > OR = 40 mg/dL [facility] LDL Cholesterol 83 mg/dL (calc) [facility] Comment: Reference range: <100 Desirable range <100 mg/dL for primary prevention; <70 mg/dL for patients with CHD or diabetic patients with > or = 2 CHD risk factors. LDL-C is now calculated using the Rodolfo-Hector calculation, which is a validated novel method providing better accuracy than the Friedewald equation in the estimation of LDL-C. Rodolfo SS et al. OLIVIER. 2013;310(19): 9259-6178 (http://education.Parkzzz.stylemarks/faq/KXM370) Non-HDL Cholesterol 100 <130 mg/dL (calc) [facility] Comment: For patients with diabetes plus 1 major ASCVD risk factor, treating to a non-HDL-C goal of <100 mg/dL (LDL-C of <70 mg/dL) is considered a therapeutic option. Triglycerides 78 <150 mg/dL [facility] 03/23/2021 9:05 AM EDT Rigoberto Ramirez MD LAB BLOOD ORDERABLES Final Result [facility] [address] from Last 3 Months or Most Recently Relevant to Health Maintenance Insurance MEDICARE Care Teams Economist Research Assistant Relationship Specialty Start Date End Date Rigoberto Us MD [address] [place] [address] PCP - General Internal Medicine 03/30/[address] [place] [address] 3rd [place] [address] Gastroenterology 09/09/24
--- OUTSIDE RECORDS SUMMARY | 2025-04-08 07:47 | XMS_ITS | Encounter Summary ---
Author Organization [employer] Address [address] [facility] [address] [place] [address] Care Team Providers Care Aviation Operations Specialist Name Role Phone Rigoberto Us MD Primary Care Provide r Timothy Broussard RN Unavailable [phone] September Unavailable Reason for Visit * Reason Onset Date Comments Reschedule 01/12/2024 Encounter Details Date Type Department Care Team ([facility] st Contact Info) Description 01/12/2024 Telephone [facility] [address] [place], [place] [phone] Rigoberto Us MD [address] [place], [place] [phone] Reschedule Social History Tobacco Use Types Packs/Day [...] EDT Tc from sister calling requesting r/s ENERGY TRADER appt, she will bring him to the appt however this day shewill be busy. documented in this encounter Plan of Treatment Upcoming Encounters Date Type Department Care Team (Late st Contact Info) Description 05/03/2025 11:15 AM EST Office Visit [facility] [address] [place] [address] Rigoberto Us MD [address] [place] [address] documented as of this encounter Visit Diagnoses Not on filedocumented in this encounter Additional Health Concerns Assessment Noted Time PHQ-9 Depression Total Score: 8 08/26/19 24 11:49 AM EST documented as of this encounter Care Teams Aviation Operations Specialist Relationship Specialty Start Date End Date Rigoberto Us MD [address] [place] [address] PCP - General Internal Medicine 03/30/18 Timothy Broussard RN [address] [place] [address] Implementation Services AnalystPoker Supervisor 12/26/23 04/07/[address] [place] [address] 3rd [place] [address] Gastroenterology 09/09/24 documented as of this encounter
--- OUTSIDE RECORDS SUMMARY | 2025-04-08 07:47 | XMS_ITS | Encounter Summary ---
Author Organization [email or web address] Address [address] [facility] 7t [place] [address] Care Team Providers Care Lifeline Representatives Name Role Phone Rigoberto Us MD Primary Care Provide r September Reason for Visit * Reason Onset Date Comments Medication Question 05/25/2024 Encounter Details Date Type Department Care Team ([facility] st Contact Info) Description 05/25/2024 Telephone [facility] [address] [place], [place] [phone] Rigoberto Us MD [address] [place], [place] [phone] Medication Question Social History Tobacco Use Types [...] he's pain don't go away. Callback number [phone] (chinese) documented in this encounter Plan of Treatment Upcoming Encounters Date Type Department Care Team (Late st Contact Info) Description 05/03/2025 11:15 AM EST Office Visit [facility] [address] [facility] [place] [address] Rigoberto Us MD [address] [facility] [place] [address] documented as of this encounter Visit Diagnoses Not on filedocumented in this encounter Additional Health Concerns Assessment Noted Time PHQ-9 Depression Total Score: 8 08/26/19 24 11:49 AM EST documented as of this encounter Care Teams Lifeline Representatives Relationship Specialty Start Date End Date [place] [address] PCP - General Internal Medicine 03/30/18September [address] [place] [address] 3rd [place] [address] Gastroenterology 09/09/24 documented as of this encounter
--- NOTE | 2025-04-08 07:48 | PFT_ITS ---
Flows: FEV1: 75 % of predicted at 2.47 L FVC: 91 % of predicted at 3.97 L FEV1/FVC: 62 % Bronchodilator response: Absent Volumes: Total lung capacity: 112 % of predicted at 8.30 L Residual volume: 166 % of predicted at 4.38 L Slow vital capacity: 83 % of predicted at 3.92 L Expiratory reserve volume: 61 % of predicted at 0.80 L Diffusion capacity: Moderately decreased, adjusts to being mildly decreased after correction for alveolar ventilation. Impression: Moderate obstructive ventilatory defect with no bronchodilator response. Increased residual volume suggests air trapping. Decreased diffusion capacity suggests emphysema. MTDD
[2025-04-08 08:36] VITALS: PULSE 78; O2SAT 97
== END 2025-04-08 07:46 | disposition home or self-care (01) ==
LOC: HO.RESP 07:45
PROVIDERS: PCP Nurse Practitioner Family; Visit Provider Hospitalist
DX: J43.2 Centrilobular emphysema (principal); Z87.891 Personal history of nicotine dependence
CPT/HCPCS: 94060; 94640; 94727; 94729

== ENCOUNTER → 2025-04-08 07:48 | Outpatient (BNV) | payer MEDICARE, MEDICAID, SELFPAY | PROVIDERS: PCP Nurse Practitioner Family; Visit Provider Internal Medicine Pulmonary Disease | DX: J98.4 Other disorders of lung (principal) | CPT/HCPCS: 94060; 94727; 94729 ==

== ENCOUNTER 2025-05-18 11:30 | Outpatient (AMB) | payer MEDICARE, MEDICAID, SELFPAY ==
[2025-05-18 11:35] VITALS: BP 95/75; PULSE 73; BMI 28.6
--- NOTE | 2025-05-18 11:35 | MHC.OFFVIS ---
Vital Signs 05/18/25 11:35 Height 5 ft 11 in Weight 205 lb 0.478 oz BMI 28.6 BP 95/75 Blood Pressure Location Rt brachial Position Sitting Pulse 73 Intake Visit Reasons: 3 mth follow up IBS, Gerd Intake Note: Est pt for mgmt of rectal cancer + CIC + GERD. CC: Pt reports that he d/c'd the oxycodone 2 days ago. He c/o constipation and BMs with blood. Graphic Technician Required: Yes Graphic Technician Services: Graphic Technician Present Accompanied by: Self / Same As Patient Allergies No Known Allergies (No Known Allergies*) Allergy (Verified 05/18/25 11:40) HPI HPI 3 mth follow up IBS, Gerd: Details: Assessment & Plan (1) Acute diarrhea: Code(s): R19.7 - Diarrhea, unspecified Category: Medical (2) Chronic idiopathic constipation: Code(s): K59.04 - Chronic idiopathic constipation Category: Medical (3) Rectal prolapse: Code(s): K62.3 - Rectal prolapse Category: Medical (4) Erosive esophagitis: Code(s): K22.10 - Ulcer of esophagus without bleeding Category: Medical Plan Yi # family member translates per patient request His current GI regimen consists of omeprazole and famotidine. 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 This resolved when we discontinue the Linzess and the Reglan and he is now moving his bowels normally. He continues on omeprazole and famotidine as he has a history of erosive esophagitis but his insurance will not cover b.i.d. PPI. - rectal cancer is being managed with an interdisciplinary approach involving Oncology and upcoming beam radiation therapy scheduled to take place with accompanying chemotherapy expected to start in mid-February. - Prior treatments have included addressing gastrointestinal concerns, with prior incidents of constipation and diarrhea now stabilized through medication adjustment. - Chronic pain remains a serious concern, described as severe, continuous, and poorly controlled by current medical treatment. This is not related to his cancer as far as we know he has a long history of degenerative disc disease and thoracic back problems with prior kyphoplasties. Return office visit in 3 months or sooner if the bowels change in response to his cancer treatments and he needs my input. TODAY'S VISIT Yi # PFSH Medical History Rectal adenocarcinoma Diarrhea GERD (gastroesophageal reflux disease) Compression fracture of body of thoracic vertebra Oxygen dependent Asthma On anticoagulant therapy CHF (congestive heart failure) History of home oxygen therapy Pulmonary nodule SOB (shortness of breath) Dyslipidemia Alcohol abuse PVD (peripheral vascular disease) Rectal polyp Calyceal diverticulum Renal cyst Acute exacerbation of emphysema Chronic hypoxemic respiratory failure Nicotine dependence, cigarettes, uncomplicated Compression fracture of T7 vertebra Cervical spondylosis Bilateral tinnitus Ascending aorta dilatation Opacity of lung on imaging study Generalized anxiety disorder Edentulous Bipolar 1 disorder GI bleed Emphysema lung BPH (benign prostatic hyperplasia) Compression fracture of lumbar vertebra Osteoporosis Atrial fibrillation with rapid ventricular response Compression fracture of body of thoracic vertebra History of alcohol abuse Compression fracture of T9 vertebra Nonischemic cardiomyopathy Right clavicle fracture Tubular adenoma of colon COPD (chronic obstructive pulmonary disease) Hyperlipidemia Hematemesis with nausea Dysphagia Systolic dysfunction Depression Hypertension Peptic ulcer disease Surgical History (Reviewed 02/17/25 @ 09:49 by Harpreet Garcia [facility]) History of rectal polypectomy (12/08/24) Hx of cystoscopy Hx of kyphoplasty History of surgery on left wrist (~03/21/10) Hx of endoscopy Hx of colonoscopy (~02/13/06) Hx of cataract surgery (~07/02/10) History of appendectomy History of gastric surgery Family History (Reviewed 02/17/25 @ 09:49 by Harpreet Garcia [facility]) Mother Renal failure Father History of depression Brother Colon cancer Acute basophilic leukemia Social History Household Members: Significant Other and None Housing: House Are you a primary health care technician to a significant other at home: No Do you presently have 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) Alcohol intake: never Patient Tobacco Use Status: Former Tobacco user Tobacco use type: Cigarette Cigarette Packs Per Day: 0.5 Years Smoked: 55 e-Cigarette/Vaping Use: Former Use Second Hand Smoke Exposure: No Advance Directives Date on File: 09/02/22 service: No Current occupational status: unemployed and disabled 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 Review of Systems Const Denies fatigue, Denies fever(s), Denies night sweats, Denies poor appetite and Denies weight loss ENT Reports Normal hearing present, Denies dental pain, Denies dysphagia, Denies hearing loss, Denies mouth pain, Denies odynophagia, Denies throat swelling, Denies tongue swelling and Reports other (Dentition adequate) Card Reports no additional complaints Resp Reports no additional complaints GI Details: Rectal discomfort/pain status post radiation therapy Denies abdominal pain, Denies melena, Denies bloating, Denies hematochezia, Reports constipation, Denies GI cramping, Denies dysphagia, Denies excessive flatus, Denies early satiety, Reports heartburn, Denies diarrhea, Reports loose stools, Denies nausea, Denies odynophagia, Denies vomiting and Denies hematemesis Skin/Breast Denies pruritus, Denies lesions, Denies rash and Denies jaundice Neuro Reports Normal hearing present and Denies Abnormal speech present Endo Denies fatigue Aller/Immun Denies throat swelling and Denies tongue swelling Physical Exam Vital Signs: BMI result Body Mass Index 28.6 Const General: cooperative, no acute distress, well developed and well groomed Nutritional Appearance: well nourished and overweight Orientation/consciousness: oriented to person, oriented to place and oriented to time Limitations: language barrier HEENT Head: Yes normocephalic and Yes atraumatic Eyes General: appearance normal, both eyes and all related structures Pupils: Equal, round and reactive pupils present Neck Neck: Yes normal visual inspection and Yes no lymphadenopathy Thyroid: Thyroid normal Resp Effort & Inspection: normal respiratory effort and able to speak in complete sentences Auscultation: clear to auscultation bilaterally Cardio Rate: regular rate Rhythm: regular rhythm Heart sounds: Normal, physiologic split S2 sound present Peripheral pulses: radial pulses present and posterior tibial pulses present GI Inspection: No distended and No Abdominal panniculus present Palpation (GI): Soft to palpation, nontender, no guarding, not rigid and No hepatosplenomegaly present Percussion: Yes normal to percussion Auscultation: normal bowel sounds Rectal Exam - Male: Yes deferred Skin General skin exam: no rashes or lesions noted, turgor normal, skin not dry, no jaundice, No spider nevi and no striae Rashes: no rashes Nails: normal Neuro General: oriented to person, oriented to place and oriented to time Cranial nerves: Yes Equal, round and reactive pupils present and Yes Normal hearing present Speech: No Abnormal speech present Extrem General: Yes normal to inspection, No clubbing, No cyanosis and No edema Psych Appearance: grossly normal and well kempt Mental Status: mental status grossly normal Speech and movement: Normal speech and movement present Affect: normal affect Attitude: cooperative Thought process: Normal thought process present and not confabulating Thought content: Normal thought content present Insight: Fair insight present (Psych) Judgement: Fair judgement present (Psych) Assessment & Plan Assessment & Plan (1) Chronic idiopathic constipation: Code(s): K59.04 - Chronic idiopathic constipation Category: Medical (2) Tubular adenoma of colon: Comment: 04/2024 scope= rectal adenoma with high-grade dysplasia and tubular adenomas; 2016 scope = TA repeat 5 years aeb Code(s): D12.6 - Benign neoplasm of colon, unspecified Category: Medical (3) High grade dysplasia in colonic adenoma: Comment: on 04/2024 scope Code(s): D12.6 - Benign neoplasm of colon, unspecified Category: Medical (4) Erosive esophagitis: Code(s): K22.10 - Ulcer of esophagus without bleeding Category: Medical (5) Rectal prolapse: Code(s): K62.3 - Rectal prolapse Category: Medical Plan Yi # Fatemeh Hernandez His current GI regimen consists of omeprazole and famotidine. Subjective Follow-up for reflux management and treatment-related pain. Patient reports history of rectal cancer treated with radiation in [place] and ongoing localized pain in that area. He was prescribed oxycodone but stopped it yesterday due to constipation; pain persists but is mild, and he prefers to avoid opioids if possible. He regularly uses liquid sucralfate to prevent nocturnal reflux and describes occasional nocturnal regurgitation with a bad/metallic taste of blood. He requests continuation of the sucralfate. Counseling provided that sucralfate can worsen constipation. Prior visit noted good control on omeprazole and famotidine, and several medications were discontinued previously due to diarrhea. Relevant Past Medical, Social, and Family History Rectal cancer treated with radiation. Objective Assessment & Plan Gastroesophageal reflux with nocturnal symptoms: Ongoing nocturnal reflux controlled with sucralfate; patient notes intermittent bad/metallic/bloody taste at night. - Refill sucralfate suspension per current regimen. - Instructed to take sucralfate from other medications by 2 hours before and 2 hours after to avoid interference with absorption/effect of other therapies. - Reviewed that sucralfate may contribute to constipation; patient acknowledges and wishes to continue given symptomatic benefit. Rectal cancer s/p radiation with treatment-related pain and opioid-associated constipation: Mild ongoing pain in radiation field. Oxycodone was stopped yesterday due to constipation. - Discussed option to restart linaclotide (Linzess) at a low dose if opioid therapy is resumed; may start/stop depending on need. Patient prefers to hold for now. - Encouraged continuation of cancer-directed care and not to forego treatment due to analgesic side effects. - Patient has evaluation today with Dr. Haynes for further management; will follow recommendations from that visit. - Follow-up with me in June to reassess pain control, bowel regimen needs, and reflux management. Medications: Changed From sucralfate 20 mL PO BID 1,000 mL 0RF K22.10 - Ulcer of esophagus without bleeding To sucralfate 20 mL PO BID PRN 1,000 mL 3RF abdominal pain K22.10 - Ulcer of esophagus without bleeding Refilled omeprazole 20 mg PO BID 180 caps 0RF Coding Level of Care Code Est Pt Level 3 (32699) Diagnoses Chronic idiopathic constipation K59.04 Tubular adenoma of colon D12.6 High grade dysplasia in colonic adenoma D12.6 Erosive esophagitis K22.10 Rectal prolapse K62.3
--- OUTSIDE RECORDS SUMMARY | 2025-05-18 14:32 | XMS_ITS | Clinical Summary ---
Author Organization [facility] Address [address] [place] [address] Phone Care Team Providers Care Manager Of Internal Audit Name Role Phone Rigoberto Madrigal MD Primary Care Provide r Yulisa Haynes MD Unavailable [phone] Don Gonzales MD Unavailable Allergies No known active allergies Medications sucralfate (CARAFATE) 1 gram tabletIndications :Erosive Esophagitis Take 1 g by mouth 4 (four) times a day. Indications: Erosive Esophagitis Active latanoprost (XALATAN) 0.005 % ophthalmic solution Place 1 drop into each eye nightly at bedtime. Active simvastatin (ZOCOR) 20 MG tabletIndications :hyperlipidemia Take 20 mg by mouth nightly at bedtime. Indications: excessive fat in the blood Active ferrous gluconate 256 mg (28 mg elemental) Tab Take 324 mg by mouth daily with breakfast. Active ascorbic acid, vitamin C, (VITAMIN C) 250 MG tablet Take 250 mg by mouth daily. Active sertraline (ZOLOFT) 25 MG tabletIndications :anxiety with depression Take 25 mg by mouth [...] TONGUE EVERY 6 HOURS NEEDED FOR NAUSEA Active TRELEGY ELLIPTA 100-62.5-25 mcg inhalation powder Inhale 1 puff into the lungs daily. Active omeprazole (PRILOSEC) 20 MG capsule Take 1 capsule by mouth 2 (two) times a day. Active tadalafiL (CIALIS) 5 MG tablet Take 1 tablet by mouth every morning. Active furosemide (LASIX) 20 MG tablet Take 1 tablet (20 mg total) by mouth daily. 90 tablet 3 Active apixaban (ELIQUIS) 5 mg tablet Take 1 tablet (5 mg total) by mouth 2 (two) times a day. 180 tablet 3 025 Active sotaloL (BETAPACE) 80 MG tablet Take 1 tablet (80 mg total) by mouth 2 (two) times a day. 180 tablet 3 025 Active sotaloL (BETAPACE) 80 MG tablet Take 80 mg by mouth 2 (two) times a day. 2024 Discontin ued(Reord er) hydrocortisone acetate (ANUSOL-HC) [address] 1 suppository (25 mg total) rectally 2 (two) times a day as needed for hemorrhoid discomfort (pain/dolor). 12 suppository 1 025 2024 Active Problems Problem Noted Date Diagnosed Date [...] 11/21/2022 History of peptic ulcer disease 11/21/2022 rn dermatology (current) use of anticoagulants 2022 Atrial fibrillation 05/29/2022 Bipolar disorder 10/06/2018 Chronic obstructive lung disease 07/22/2016 Glaucoma 07/22/2016 Encounters Date Type Department Care Team Description 05/04/2025 Documentation [facility] Rad Onc [address] [place] [address] Ginna Singleton [place] Rad Onc discharge (Malignant neoplasm of rectum/) 05/02/2025 1:50 PM EST Procedure visit [facility] Rad Onc [address] [place] [address] Arnel Carson MD Malignant neoplasm of rectum (Primary Dx) 04/28/2025 Orders Only [facility] Rad Onc [address] [place] [address] Arnel Carson MD 04/25/2025 1:50 PM EST Procedure visit [facility] [address] [address] Arnel Carson MD Malignant neoplasm of rectum (Primary Dx) 04/25/2025 Refill [facility] [address], [address] [place] [address] Nereyda Pierce MA Medication Refill 04/18/2025 1:50 PM EDT Procedure visit [facility] [address] [address] Arnel Carson MD Miranda-Leon, [place] Malignant neoplasm of rectum (Primary Dx) 04/11/2025 1:50 PM EDT Procedure visit [facility] [address] [address] Arnel Carson MD Malignant neoplasm of rectum (Primary Dx) 04/06/2025 1:50 PM EDT Procedure visit [facility] Onc [address] [place] [address] Arnel Carson MD Malignant neoplasm of rectum (Primary Dx) 04/06/2025 Refill [facility] [address] [place] [address] 3rd Floor, [address] [place] [address] Fransisco Nguyen DO Medication Refill 03/30/2025 1:00 PM EDT Office Visit [facility] Onc [address] [place] [address] Arnel Carson MD Miranda-Leon, [place] Malignant neoplasm of rectum (Primary Dx) 03/30/2025 10:15 AM EDT Office Visit [facility] [address], [address] [place] [address] Fransisco Nguyen DO Atrial fibrillation (Primary Dx); Shortness of breath; Non-ischemic cardiomyopathy; Hypertensive heart disease with heart failure; Chronic idiopathic constipation 03/15/2025 12:00 PM EDT Office Visit [facility] Rad Onc [address] [place] [address] Arnel Carson MD Verea, Armando Malignant neoplasm of rectum (Primary Dx) 03/15/2025 Telephone [facility] Rad Onc [address] [place] [address] Arnel Carson MD PreAut 03/15/2025 Documentation [facility] Rad Onc [address] [place] [address] Eula Kelly RN 03/10/2025 Refill [facility] [address] [facility] 3rd Floor, [address] [place] [address] Tamiko Howard [place] Medication Refill 02/16/2025 11:00 AM EDT Office Visit [facility] Rad Onc [address] [place] [address] Arnel Carson MD Miranda-Leon, [place] Malignant neoplasm of rectum (Primary Dx) from Last 3 Months Family History Medical [...] Sign Reading Time Taken Comments Blood Pressure 119/71 05/02/2025 1:48 PM EST Pulse 67 05/02/2025 1:48 PM EST Temperature 36.2 C (97.2 F) 05/02/2025 1:48 PM EST Respiratory Rate 20 05/02/2025 1:48 PM EST Oxygen Saturation 94% 05/02/2025 1:48 PM EST Inhaled Oxygen Concentration - - Weight 93.7 kg (206 lb 9.6 oz) 05/02/2025 1:48 P M EST Height 170.2 cm (5' 7 ) 03/30/2025 10:23 AM EDT Body Mass Index 32.36 03/30/2025 10:23 AM EDT Plan of Treatment Upcoming Encounters Date Type Department Care Team (Late st Contact Info) Description 03/30/2025 Procedure Pass [facility] [address] [place] [address] 06/03/2025 11:30 AM EST Appointment [facility] [address] [place] [address] Fransisco Nguyen [address] [address] 06/13/2025 10:00 AM EST Appointment [facility] [address] [place] [address] Fransisco Nguyen [address] [address] 06/14/2025 2:00 PM EST Office Visit [facility] Rad Onc [address] [place] [address] Arnel Carson MD [address] [place] [address] [email or web address] 06/15/2025 10:00 AM EST Appointment [facility] [address] [place] [address] Fransisco Nguyen, DO [address] [facility] [address] [place] [address] 07/26/2025 10:30 AM EST Office Visit [facility] [address]rd Floor, [address] [place] [address] Fransisco Nguyen, [address] [facility] [address] [place] [address] Health Maintenance Due Date Last Done Comments [...] this topic Medical Devices Not on file Insurance MEDICARE PART A & B [place] & B HEALTH MEDICARE PART A & [place] & B [facility] MEDICARE PART A & B [facility] Care Teams Manager Of Internal Audit Relationship Specialty Start Date End Date Rigoberto Madrigal MD [address] [facility] [address] [place] [id number] [email or web address] PCP - General Internal Medicine 01/26/25 Yulisa Haynes MD [address] [place] [id number] [email or web address] 02/16/25 Don Gonzales MD [address] [place] [address] [place] [id number] General Surgery 02/16/25 Additional Source Comments The information contained in this document represents components of the legal health record. It is not the complete legal health record.[facility]
--- OUTSIDE RECORDS SUMMARY | 2025-05-18 14:32 | XMS_ITS | Encounter Summary ---
Author Organization [facility] Address [address] [place] [address] Phone Care Team Providers Care Public Health Outreach Worker Name Role Phone Rigoberto Madrigal MD Primary Care Provide r Yulisa Haynes MD Unavailable [phone] Don Gonzales MD Unavailable [phone] Reason for Visit * Reason Onset Date Comments Medication Refill 03/10/2025 Encounter Details Date Type Department Care Team (Late st Contact Info) Description 03/10/2025 Refill [facility] [address] [facility] [address]rd Floor, [address] [place] [address] Tamiko Howard ME [address] [place] [address] [email or web address] Medication Refill Social History Tobacco Use Types [...] Info) Description 03/30/2025 Procedure Pass [facility] [place] [address] [place] [id number] 06/03/2025 11:30 AM EST Appointment [facility] [place] [address] Isaias Elam [address] [place] [phone] Fransisco Nguyen, DO [address] [place] [id number] 06/13/2025 10:00 AM EST Appointment [facility] [place] [address] [place] [address] Fransisco Nguyen, DO [address] [place] [phone] 06/14/2025 2:00 PM EST Office Visit [facility] Rad Onc [address] [place] [id number] Arnel Carson MD [address] [place] [phone] [email or web address] 06/15/2025 10:00 AM EST Appointment [facility] [place] [address] Isaias Elam [address] [place] [phone] Fransisco Nguyen, DO [address] [place] [phone] 07/26/2025 10:30 AM EST Office [facility] [address] [place] [address], [address] [address] Fransisco Nguyen, DO [address] [place] [phone] documented as of this encounter Visit Diagnoses Not on filedocumented in this encounter Care Teams Public Health Outreach Worker Relationship Specialty Start Date End Date Rigoberto Madrigal MD [address] [facility] [address] [place] [phone] PCP - General Internal Medicine 01/26/25 Yulisa Haynes MD [address] [place] [address] [email or web address] 02/16/25 Don Gonzales MD [address] [place] [address] [place] [address] General Surgery 02/16/25 documented as of this encounter Additional Source Comments The information contained in this document represents components of the legal health record. It is not the complete legal health record.[facility]
== END 2025-05-18 12:00 | disposition home or self-care (01) ==
LOC: HO.HGI 11:30
PROVIDERS: PCP Nurse Practitioner Family; Visit Provider Nurse Practitioner
DX: K59.04 Chronic idiopathic constipation (principal); D12.6 Benign neoplasm of colon, unspecified; K22.10 Ulcer of esophagus without bleeding; K62.3 Rectal prolapse
CPT/HCPCS: 99213

== ENCOUNTER → 2025-05-18 11:30 | Outpatient (BNVA) | payer MEDICARE, MEDICAID, SELFPAY | PROVIDERS: PCP Nurse Practitioner Family; Visit Provider Nurse Practitioner | DX: K59.04 Chronic idiopathic constipation (principal); K22.10 Ulcer of esophagus without bleeding; K62.3 Rectal prolapse; Z87.891 Personal history of nicotine dependence; Z85.048 Personal history of other malignant neoplasm of rectum, rectosigmoid junction, and anus | CPT/HCPCS: 99212 ==